=== PATIENT | male | born 1940 | race Caucasian/White ===

== ENCOUNTER 2023-03-17 16:27 | Emergency (ER) | payer MEDICARE, SELFPAY ==
[2023-03-17] VITALS (18 sets, daily range): BP systolic 117–216; BP diastolic 61–113; PULSE 61–79; RESP 13–22; TEMP 36.6; O2SAT 92–97; BMI 26.4
--- NOTE | 2023-03-17 16:43 | EX.ED.DYSGE1 ---
HPI History of Present Illness Chief Complaint: Confusion [facility] Medical History (Updated 03/17/23 @ 17:16 by Shauna Almeida) High cholesterol History of prostate cancer HTN (hypertension) Hx of stroke associated with blood clotting tendency Mitral valve problem Allergy/AdvReac Type Severity Reaction Status Date / Time Penicillins Allergy Severe NEEDS Verified 03/17/23 16:28 FOLLOW-UP Social History Smoking Status: Former smoker EXAM Physical Exam Const Vital Signs: 03/17/23 16:28 03/17/23 17:17 03/17/23 17:26 Temperature 97.8 F Temperature Source Temporal Pulse Rate 72 Respiratory Rate 16 Blood Pressure 198/101 H 216/107 H Blood Pressure Mean 133 143 Pulse Ox 94 Oxygen Delivery Method Room Air Room Air Oxygen Flow Rate (L/min) 03/17/23 17:27 03/17/23 17:27 03/17/23 17:29 Temperature Temperature Source Pulse Rate 68 61 Respiratory Rate 17 18 Blood Pressure 191/113 H 193/91 H 184/98 H Blood Pressure Mean 139 125 126 Pulse Ox 95 96 Oxygen Delivery Method Room Air Oxygen Flow Rate (L/min) 03/17/23 17:36 03/17/23 17:40 03/17/23 17:46 Temperature Temperature Source Pulse Rate 64 71 69 Respiratory Rate 21 H 21 H 19 H Blood Pressure 180/84 H 171/98 H 171/98 H Blood Pressure Mean 116 122 122 Pulse Ox 92 96 96 Oxygen Delivery Method Nasal Cannula Nasal Cannula Oxygen Flow Rate (L/min) 2 03/17/23 17:55 03/17/23 18:10 03/17/23 18:15 Temperature Temperature Source Pulse Rate 73 72 71 Respiratory Rate 19 H 16 22 H Blood Pressure 144/92 H 136/80 H 129/70 H Blood Pressure Mean 109 98 89 Pulse Ox 96 97 96 Oxygen Delivery Method Nasal Cannula Nasal Cannula Nasal Cannula Oxygen Flow Rate (L/min) 2 2 2 03/17/23 18:30 03/17/23 18:45 03/17/23 19:00 Temperature Temperature Source Pulse Rate 69 72 Respiratory Rate 15 16 16 Blood Pressure 128/68 H 129/93 H Blood Pressure Mean 88 105 Pulse Ox 96 97 Oxygen Delivery Method Nasal Cannula Nasal Cannula Oxygen Flow Rate (L/min) 2 2 03/17/23 19:00 03/17/23 19:15 03/17/23 19:30 Temperature Temperature Source Pulse Rate 71 73 79 Respiratory Rate 18 18 13 Blood Pressure 132/69 H 117/72 133/61 H Blood Pressure Mean 90 87 85 Pulse Ox 96 96 96 Oxygen Delivery Method Nasal Cannula Nasal Cannula Nasal Cannula Oxygen Flow Rate (L/min) 2 2 2 03/17/23 19:40 03/17/23 19:46 03/17/23 19:42 Temperature Temperature Source Pulse Rate 78 72 72 Respiratory Rate 16 16 13 Blood Pressure 133/61 H 134/72 H 133/61 H Blood Pressure Mean 85 92 85 Pulse Ox 96 95 96 Oxygen Delivery Method Nasal Cannula Oxygen Flow Rate (L/min) 2 MDM MDM MDM Narrative Medical decision making narrative: HISTORY OF PRESENT ILLNESS: 82-year-old male here with confusion. Per the patient's family he fell on Saturday states he is on Coumadin. States he is having word finding difficulties. REVIEW OF SYSTEMS: Pertinent positives: Head trauma, confusion, difficulty with speaking Pertinent negatives: Chest pain, shortness of breath, fever PHYSICAL EXAM: Nursing triage notes reviewed, Vital signs reviewed Primary Survey Airway: Intact Breathing: Bilateral breath sounds Circulation: Palpable bilateral femorals, Palpable bilateral radial, Palpable bilateral DP and Palpable bilateral PT Disability / Spine precautions GCS Score: Eye Openin Verbal Response: 4 Motor Response: 6 Secondary Survey Constitutional: Please see MDM Head: Atraumatic, Midface stable, NO jaw malocclusion, No Cephalohematoma, and No Lacerations noted Eye: Pupils equal round and reactive to light, Extraocular muscles intact and No periorbital ecchymosis or stepoff, no evidence of entrapment ENT: Oropharynx clear, no lacerations, no hemotympanum, no raccoon eyes or nick sign Cervical spine / Neck: No cervical spine bony tenderness, crepitance, or stepoff deformity Trachea midline Lungs: Clear to auscultation, No asymmetric rise and No crepitus, no flail chest Cardiac: Regular rate and rhythm and No murmurs Abdomen: Soft, Nontender and No rebound Pelvis: Pelvis stable to compression : No evidence of genital injury Back: No midline bony tenderness to thoracic/lumbar/sacral spines Neuro: Patient is alert, oriented to person but not to place or time, he moves all 4 extremities he has sensation all 4 extremities, he has expressive aphasia, no obvious dysarthria, no other cranial nerve deficits noted. NIH 0. ICH score 0. Extremities: NO gross Deformities, TTP over left wrist, bruising over left wrist. Psych: Normal affect Nursing triage notes reviewed, Vital signs reviewed MEDICAL DECISION MAKING: Chief Complaint: Confusion External records reviewed: No recent ED visits or hospitalizations noted Factors affecting care: On Coumadin Social determinants of health: Elderly History obtained from others: Son Consults: none MDM Narrative: Patient was initially hypertensive otherwise afebrile and nontoxic-appearing. There is no lateralizing findings however the patient was altered and had aphasia. His last known well was greater than 24 hours ago, he is on Coumadin he is not a TNK or thrombectomy candidate. I considered the following differential diagnosis: ICH, anemia, pneumonia, COVID, other infectious encephalopathy, metabolic encephalopathy I obtained a broad lab and imaging workup to further elucidate the etiology of the patient's complaints ALL IMAGES (IF OBTAINED) HAVE BEEN PERSONALLY REVIEWED AND INTERPRETED BY MYSELF. CT scan of the head was read reviewed myself shows evidence of a left-sided subdural hematoma. CT scan of cervical spine is negative for acute traumatic injury EKG with normal sinus rhythm, right axis deviation, right bundle branch block, no STEMI or ischemic changes I have personally reviewed the patient's chest x-ray. Chest x-ray is unremarkable for pulmonary edema, pneumothorax, pneumonia or focal cardiopulmonary abnormality. X-ray of the left wrist was read reviewed myself shows evidence of a proximal first metacarpal fracture Serum alcohol negative CBC with leukocytosis suggestive of systemic inflammation, no anemia. Noted mild thrombocytopenia INR 1.8 will give vitamin K Kcentra BMP without evidence of significant electrolyte abnormalities, no anion gap, no acute kidney injury. LFTs show no evidence of hepatobiliary pathology. High-sensitivity troponin is negative, no evidence of myocardial ischemia Synthesis of the patient's history, physical exam, labs images suggest evidence of a traumatic subdural hematoma complicated by Coumadin. Patient was treated with Kcentra and vitamin K to reverse activity of Coumadin. Head of bed was kept at 30 degrees. He was started initially on labetalol and then nicardipine drip to control his blood pressure with systolic goal of less than 140. He is transferred to a local trauma center for further trauma surgery and neurosurgery care. Case discussed with Dr. Mayen the patient in transfer to [facility]. The patient and/or family, caregivers express understanding. The patient and/or family, caregivers agrees with the plan. Shared decision making: I will have a discussion with the patient and or visitors regarding risk/benefits of further testing or admission. They will be made aware of of the risk/benefits inherent in this decision they will be given the opportunity to voice understanding. Total critical care time today provided was at least 60 minutes. This excludes separately billable procedures. Critical care time (if documented) is secondary to the patient having high probability of clinically significant/life threatening deterioration in the patient's condition which required my urgent intervention. Impression: 1. Acute traumatic subdural hematoma 2. Presence of anticoagulation 3. Thrombocytopenia 4. Hyperglycemia Dispo: Transfer to [facility] History & Record Review Discussion w/independent historian: EMS personnel and Family Lab Data Attestation: I reviewed the patient's lab results. Labs: Laboratory Results - last 24 hr 03/17/23 16:59 WBC 11.1 H RBC 5.03 Hgb 15.7 Hct 48.4 MCV 96.2 H MCH 31.2 MCHC 32.4 RDW Std Deviation 52.8 H RDW Coeff of Anderson 14.8 H Plt Count 143 L MPV 11.9 Immature Gran % (Auto) 0.500 Neut % (Auto) 84.7 H Lymph % (Auto) 6.9 L [place] % (Auto) 7.7 Eos % (Auto) 0.0 Baso % (Auto) 0.2 Absolute Neuts (auto) 9.4 H Absolute Lymphs (auto) 0.76 L Nucleated RBC % 0 PT 21.2 H INR 1.8 Sodium 137 Potassium 3.7 Chloride 101 Carbon Dioxide 29.0 Anion Gap 7 BUN 18 Creatinine 1.34 H Estim Creat Clear Calc 45.27 Est GFR (MDRD) Af Amer 66 Est GFR (MDRD) Non-Af 54 L BUN/Creatinine Ratio 13.4 Glucose 236 H Calcium 9.7 Total Bilirubin 0.90 AST 22 ALT 27 Alkaline Phosphatase 138 H Troponin I High Sens 42 Total Protein 7.3 Albumin 3.8 Globulin 3.5 Albumin/Globulin Ratio 1.1 Ethyl Alcohol < 3.0 Radiography Chest X-Ray - ED: Read by ED Physician Diagnostic Testing: Clinical Impression(s) from Imaging Studies Brain CT 03/17/23 16:51 IMPRESSION: Acute subdural hemorrhage along the left temporal and frontoparietal lobe extending into the left tentorium and involving the falx as described above. Minimal cortical effacement along the left temporal and frontoparietal lobe suggestive of mild edema. No midline shift. Electronically Signed: Noreen Mckay MD at 17:26 EST , ADDENDUM: 03/17/23 1740 IMPRESSION: Acute subdural hemorrhage along the left temporal and frontoparietal lobe extending into the left tentorium and involving the falx as described above. Minimal cortical effacement along the left temporal and frontoparietal lobe suggestive of mild edema. No midline shift. N.B. : The above Results were Read Back by Noreen Mckay MD to Brendon Hope DO, and understanding confirmed on 03/17/2023 17:33:14 (ET). Electronically Signed: Noreen Mckay MD at 17:26 EST Reading Location ID and State: [id number] / [employer] , Service support , Cervical Spine CT 03/17/23 16:51 IMPRESSION: Multilevel degenerative disease as described with no acute fracture or subluxation. Electronically Signed: Noreen Mckay MD at 17:30 EST Reading Location ID and State: [id number] / [employer] , Service support , Chest X-Ray 03/17/23 16:51 IMPRESSION: Mild bilateral multilobar multifocal atelectasis, otherwise no acute cardiopulmonary disease. Electronically Signed: Noreen Mckay MD at 17:21 EST Reading Location ID and State: [id number] / [employer] , Service support , Wrist X-Ray 03/17/23 16:51 IMPRESSION: Fracture involving the first metacarpal base. Underlying mild degenerative disease with osteopenia. Electronically Signed: Noreen Mckay MD at 17:22 EST , Discharge Plan Triage Chief Complaint: Confusion ED Provider: Brendon Hope Dx/Rx/DC Orders Primary Care Provider: CHARLI FELICIANO Referrals: [facility] Doctor,Out of [Non-Staff] - Disposition Disposition: Acute Care Hospital Discharge Location: [facility]
--- NOTE | 2023-03-17 16:51 | RAD_ITS ---
STUDY: X-RAY - LEFT WRIST REASON FOR EXAM: Male, 82 years old. pain TECHNIQUE: 3 view(s) of the wrist were obtained. COMPARISON: None. FINDINGS: There is demineralization of the radius and ulna. There is mild degenerative arthrosis of the radiocarpal articulation. Normal distal radioulnar articulation. Normal carpal bones. Mild degenerative arthrosis at the scaphotrapezium trapezoid joint. There is mild degenerative arthrosis of the carpometacarpal articulation of the thumb. Normal second through fifth carpometacarpal articulations. There is a transverse fracture involving the base of the first metacarpal bone. Soft tissue swelling at the wrist with vascular calcifications. RAD/Wrist min 3 Views IMPRESSION: Fracture involving the first metacarpal base. Underlying mild degenerative disease with osteopenia. Electronically Signed: Noreen Mckay MD at 17:22 [facility] ,
--- NOTE | 2023-03-17 16:51 | CT_ITS ---
STUDY: CT CERVICAL SPINE WITHOUT CONTRAST REASON FOR EXAM: Male, 82 years old. fall neck pain RADIATION DOSAGE (If Supplied By Facility): CTDIvol = ( 25.12 ) mGy, DLP = ( 575.62 ) mGycm TECHNIQUE: High resolution transaxial imaging was performed without contrast material. Sagittal and coronal images were reconstructed. Individualized dose optimization techniques were used for this CT. COMPARISON: None FINDINGS: Normal craniovertebral junction. There are degenerative changes of the anterior atlantoaxial articulation. Normal odontoid process. Normal cervical lordosis. Multilevel endplate spondylosis with narrowing of disc height consistent with disc degenerative disease, more significant at C5-C7 and anterior C1-C2 articulation. Otherwise normal vertebral bodies and posterior osseous elements. C2-3: Mild spondylosis. Mild bilateral apophyseal hypertrophy. No neural foraminal encroachment. No central canal stenosis. C3-4: Mild spondylosis. Mild disc osteophyte complex. Mild bilateral apophyseal hypertrophy. No neural foraminal encroachment. No central canal stenosis. C4-5: Mild to moderate spondylosis. Mild to moderate disc osteophyte complex. Mild bilateral apophyseal hypertrophy. Moderate neural foraminal encroachment. No central canal stenosis. C5-6: Moderate spondylosis with narrowing of disc height. Moderate to severe disc osteophyte complex. Moderate bilateral apophyseal hypertrophy. Moderate to severe neural foraminal encroachment. No central canal stenosis. C6-7: Mild to moderate spondylosis. Mild to moderate disc osteophyte complex. Mild bilateral apophyseal hypertrophy. Moderate neural foraminal encroachment. No central canal stenosis. C7-T1: Mild spondylosis. Mild bilateral apophyseal hypertrophy. No neural foraminal encroachment. No central canal stenosis. Normal visualized soft tissue structures. Question mild emphysematous changes in the lung apices. No pneumothorax. Calcified atherosclerotic disease throughout the bilateral carotid arteries. CT/Spine Cervical without Contras IMPRESSION: Multilevel degenerative disease as described with no acute fracture or subluxation. Electronically Signed: Noreen Mckay MD at 17:30 EST ,
--- NOTE | 2023-03-17 16:51 | CT_ITS ---
We are attempting to reach an attending provider to discuss findings. An addendum with communication details will be sent when the communication is complete. STUDY: CT BRAIN WITHOUT CONTRAST REASON FOR EXAM: Male, 82 years old. AMS, confusion, fall RADIATION DOSAGE (If Supplied By Facility): CTDIvol = ( 44.99 ) mGy, DLP = ( 880.47 ) mGycm TECHNIQUE: Transaxial CT imaging of the brain was performed without administration of intravenous contrast material. Individualized dose optimization techniques were used for this CT. COMPARISON: No relevant priors. FINDINGS: Normal soft tissue structures. Normal calvarium. There is mild cerebral atrophy with widening of the extra-axial spaces and ventricular dilatation. There are areas of decreased attenuation within the white matter tracts of the supratentorial brain, consistent with microvascular disease changes. Normal basal ganglia and thalami. Normal brainstem. Normal cerebellum. There is left subdural acute hemorrhage extending from the left temporal lobe and left tentorium into the left frontoparietal region at mid skull level, measuring approximately 8.7 mm in maximum thickness at the level of the left temporal lobe. There is small area of acute hemorrhage involving the left tentorium and falx region, measuring largest dimension along the posterior falx (5.2 mm. There is minimal sulcal effacement along the left temporoparietal and left frontal lobe. Normal visualized paranasal sinuses. No midline shift. CT/Brain/Head without Contrast IMPRESSION: Acute subdural hemorrhage along the left temporal and frontoparietal lobe extending into the left tentorium and involving the falx as described above. Minimal cortical effacement along the left temporal and frontoparietal lobe suggestive of mild edema. No midline shift. Electronically Signed: Noreen Mckay MD at 17:26 EST ,
--- NOTE | 2023-03-17 16:51 | RAD_ITS ---
STUDY: X-RAY CHEST REASON FOR EXAM: Male, 82 years old. SOB TECHNIQUE: Single AP portable view of the chest. COMPARISON: None. FINDINGS: The lungs are normally expanded with bilateral mid lung and left basilar atelectasis, otherwise clear. There is no demonstrated pleural abnormality. Normal size heart. Midline sternotomy wires noted. Normal mediastinum and cirilo. Normal visualized pulmonary arteries. There is atherosclerotic calcification of the aortic arch with tortuosity. There are diffuse degenerative changes of the visualized thoracic spine. There is degenerative osteoarthritis of the bilateral shoulders. There is no demonstrated abnormality of the visualized soft tissue structures of the upper abdomen. RAD/Chest 1 View (Portable) IMPRESSION: Mild bilateral multilobar multifocal atelectasis, otherwise no acute cardiopulmonary disease. Electronically Signed: Noreen Mckay MD at 17:21 EST ,
--- NOTE | 2023-03-17 16:52 | EKG12_ITS ---
Test Reason : HIGH BP Blood Pressure : / mmHG Vent. Rate : 077 BPM Atrial Rate : 077 BPM P-R Int : 172 ms QRS Dur : 140 ms QT Int : 420 ms P-R-T Axes : 069 124 -04 degrees QTc Int : 475 ms Normal sinus rhythm Right bundle branch block Left posterior fascicular block Bifascicular block Cannot rule out Inferior infarct , age undetermined Abnormal ECG Confirmed by TOMI SHETTY, GERARD ([id number]), online editor TELMA NARVAEZ ([id number]) on 03/26/2023 9:15:53 AM Referred By: Confirmed By:GERARD KRISHNA MD
[2023-03-17] MEDS: Labetalol (Prefilled) 20 MG/4 ML IV (17:23)
[2023-03-17] MEDS: Nicardipine HCl-0.9% Sod Chlor 20 MG/200 ML IV.SOLN 50 MG CONT INF (17:27)
[2023-03-17 17:31] LABS: Absolute Lymphocyte Count 0.76 X10^3/uL (0.83-4.51); Absolute Neutrophil Count 9.4 X10^3/uL (2.0-7.7); Basophil# 0.02 X10^3/uL; Basophil% 0.2 % (0-1); Hematocrit 48.4 % (40-54); Hemoglobin 15.7 g/dL (13.0-16.5); Lymphocyte # 0.76 X10^3/ul (0.83-4.51); Lymphocyte % 6.9 % (19-41); Mean Corp Hgb Conc 32.4 g/dL (32-36); Mean Corpuscular Hgb 31.2 pg (27.0-32.0); Mean Corpuscular Volume 96.2 fL (80-94); Mean Platelet Vol. 11.9 fl (6.2-12.0); Monocyte# 0.85 X10^3/uL; Monocyte% 7.7 % (0-10); NRBC Flagged by Analyzer 0 % (0-5); Neutrophil # 9.39 X10^3/uL (2.7-7.7); Neutrophil % 84.7 % (47-70); Platelet Count 143 K/mm3 (150-450); RBC Distribution Width CV 14.8 % (11.6-14.6); RBC Distribution Width SD 52.8 fl (35.1-43.9); Red Blood Count 5.03 M/mm3 (4.6-6.2); White Blood Count 11.1 K/mm3 (4.4-11.0)
[2023-03-17 17:35] LABS: International Normalized Ratio 1.8; Prothrombin Time (Protime)PT. 21.2 SECONDS (11.7-14.9)
[2023-03-17 17:37] LABS: Alcohol, Blood (Medical)-Serum < 3.0 mg/dL
[2023-03-17 17:42] LABS: ALB/GLOB Ratio 1.1 RATIO (0.9-2.4); AST(SGOT) 22 U/L (15-37); Alanine Aminotransfer ALT/SGPT 27 U/L (16-61); Albumin, Serum 3.8 g/dL (3.2-5.0); Alkaline Phosphatase 138 U/L (45-117); Anion Gap 7 (5-15); BUN 18 mg/dL (7-18); BUN/Creat Ratio 13.4 RATIO (10-20); Calcium,Total 9.7 mg/dL (8.5-10.1); Chloride 101 mmol/L (98-107); Creatinine, Serum 1.34 mg/dL (0.70-1.30); EST Glomerular Filtration Rate 54 mL/min (>60); Est Glom Filt Rate - Afr Amer 66 mL/min (>60); Estimated Creatinine Clearance 45.27 ml/min; Globulin 3.5 g/dL (2.2-4.2); Glucose 236 mg/dL (74-106); Potassium 3.7 mmol/L (3.5-5.1); Protein, Total 7.3 g/dL (6.4-8.2); Sodium Level 137 mmol/L (136-145); Troponin-I HS 42 pg/mL (3.0-78.0)
[2023-03-17] MEDS: Phytonadione (Vit K) 10 MG in 0.9% Normal Saline (50mL Bag) 50 ML 150 MG IV (18:24)
--- NOTE | 2023-03-17 18:44 | ED.RN ---
spoke with priyanka labor service representative at [facility] regarding the urgency of the transport for this pt. he will call back.
--- NOTE | 2023-03-17 18:55 | ED.RN ---
priyanka from [facility] called back. transport in route should be here around [id number].
--- NOTE | 2023-03-17 19:03 | ED.RN ---
ATTEMPTED TO CALL REPORT TO [facility] BUT THEY ARE UNABLE TO TAKE REPORT AT THIS TIME DUE TO IN THE MIDDLE OF REPORT. WILL CALL BACK
[2023-03-17] MEDS: Nicardipine HCl-0.9% Sod Chlor 20 MG/200 ML IV.SOLN 100 MG CONT INF (19:46)
== END 2023-03-17 20:53 | disposition short-term general hospital (02) ==
PROVIDERS: Emergency Provider Emergency Medicine; Visit Provider Emergency Medicine
DX: S06.5X0A Traumatic subdural hemorrhage without loss of consciousness, initial encounter (principal); D69.6 Thrombocytopenia, unspecified; R73.9 Hyperglycemia, unspecified; Z87.891 Personal history of nicotine dependence; I45.10 Unspecified right bundle-branch block; R47.01 Aphasia; R41.0 Disorientation, unspecified; I10 Essential (primary) hypertension; E78.00 Pure hypercholesterolemia, unspecified; S62.202A Unspecified fracture of first metacarpal bone, left hand, initial encounter for closed fracture; Z79.01 Long term (current) use of anticoagulants; W19.XXXA Unspecified fall, initial encounter; M50.30 Other cervical disc degeneration, unspecified cervical region
CPT/HCPCS: 70450; 71045; 72125; 73110; 80053; 82077; 84484; 85025; 85610; 87428; 93005; 96365; 96368; 96375; 99285; J7030; J7168; A4216; J3490

== ENCOUNTER → 2023-04-11 | Outpatient (REF) | payer MEDICARE, SELFPAY ==
[2023-04-11 08:37] LABS: Absolute Lymphocyte Count 1.35 X10^3/uL (0.83-4.51); Absolute Neutrophil Count 4.4 X10^3/uL (2.0-7.7); Basophil# 0.01 X10^3/uL; Basophil% 0.2 % (0-1); Eosinophil# 0.13 X10^3/uL; Hematocrit 41.2 % (40-54); Hemoglobin 13.6 g/dL (13.0-16.5); Lymphocyte # 1.35 X10^3/ul (0.83-4.51); Lymphocyte % 20.9 % (19-41); Mean Corpuscular Hgb 31.5 pg (27.0-32.0); Mean Corpuscular Volume 95.4 fL (80-94); Mean Platelet Vol. 11.9 fl (6.2-12.0); Monocyte# 0.54 X10^3/uL; Monocyte% 8.4 % (0-10); NRBC Flagged by Analyzer 0 % (0-5); POSITIVE COUNT YES; Platelet Count 84 K/mm3 (150-450); RBC Distribution Width CV 14.3 % (11.6-14.6); RBC Distribution Width SD 50.3 fl (35.1-43.9); Red Blood Count 4.32 M/mm3 (4.6-6.2); White Blood Count 6.5 K/mm3 (4.4-11.0)
[2023-04-11 08:56] LABS: Anion Gap 4 (5-15); BUN 13 mg/dL (7-18); Calcium,Total 8.8 mg/dL (8.5-10.1); Chloride 104 mmol/L (98-107); Creatinine, Serum 1.18 mg/dL (0.70-1.30); EST Glomerular Filtration Rate 63 mL/min (>60); Est Glom Filt Rate - Afr Amer 76 mL/min (>60); Glucose 122 mg/dL (74-106); Potassium 3.8 mmol/L (3.5-5.1); Sodium Level 137 mmol/L (136-145)
[2023-04-11 09:04] LABS: Differential Indicated SCAN CRITERIA MET
[2023-04-11 09:06] LABS: Differential Comment SCANNED; Platelet Estimate MOD DEC (ADEQ)
== END ==
LOC: OLS.WHLTSB 05:00
PROVIDERS: PCP Internal Medicine; Visit Provider Internal Medicine
DX: E11.9 Type 2 diabetes mellitus without complications (principal)
CPT/HCPCS: 36415; 80048; 85025

== ENCOUNTER → 2023-04-25 | Outpatient (REF) | payer MEDICARE, SELFPAY ==
[2023-04-25 09:31] LABS: Absolute Lymphocyte Count 1.02 X10^3/uL (0.83-4.51); Absolute Neutrophil Count 5.5 X10^3/uL (2.0-7.7); Basophil# 0.03 X10^3/uL; Basophil% 0.4 % (0-1); Eosinophil# 0.15 X10^3/uL; Eosinophils% 2.1 % (0-5); Hematocrit 38.8 % (40-54); Hemoglobin 12.9 g/dL (13.0-16.5); Lymphocyte # 1.02 X10^3/ul (0.83-4.51); Lymphocyte % 14.1 % (19-41); Mean Corp Hgb Conc 33.2 g/dL (32-36); Mean Corpuscular Hgb 31.9 pg (27.0-32.0); Mean Corpuscular Volume 95.8 fL (80-94); Mean Platelet Vol. 11.1 fl (6.2-12.0); Monocyte# 0.51 X10^3/uL; Monocyte% 7.1 % (0-10); NRBC Flagged by Analyzer 0 % (0-5); Neutrophil # 5.47 X10^3/uL (2.7-7.7); Neutrophil % 75.7 % (47-70); Platelet Count 136 K/mm3 (150-450); RBC Distribution Width CV 14.7 % (11.6-14.6); RBC Distribution Width SD 51.3 fl (35.1-43.9); Red Blood Count 4.05 M/mm3 (4.6-6.2); White Blood Count 7.2 K/mm3 (4.4-11.0)
[2023-04-25 09:55] LABS: Anion Gap 4 (5-15); BUN 12 mg/dL (7-18); BUN/Creat Ratio 11.4 RATIO (10-20); Calcium,Total 9.1 mg/dL (8.5-10.1); Chloride 104 mmol/L (98-107); Creatinine, Serum 1.05 mg/dL (0.70-1.30); EST Glomerular Filtration Rate 72 mL/min (>60); Est Glom Filt Rate - Afr Amer 87 mL/min (>60); Glucose 126 mg/dL (74-106); Potassium 4.2 mmol/L (3.5-5.1); Sodium Level 137 mmol/L (136-145)
== END ==
LOC: OLS.WHLTSB 05:00
PROVIDERS: PCP Internal Medicine; Visit Provider Internal Medicine
DX: E11.9 Type 2 diabetes mellitus without complications (principal)
CPT/HCPCS: 36415; 80048; 85025

== ENCOUNTER 2023-05-09 15:30 | Emergency (ER) | payer MEDICARE, SELFPAY ==
[2023-05-09 15:31] VITALS: BP 202/86; PULSE 58; RESP 16; TEMP 35.6; O2SAT 94; BMI 24.6
--- NOTE | 2023-05-09 16:04 | ED.VIS.FALL ---
HPI <Sonia Chao RN - Last Filed: 05/09/23 18:06> HPI - Fall History of Present Illness Chief Complaint: Fall Informant: patient and EMS Occured/Mechanism Occurred: Today Mechanism/Context: Yes same level fall Narrative: Fall from standing while walking out of the bathroom and not using walker. Pain/Injury Location: Right upper chest, right thoracic region on back, thoracic and lumbar spina Quality of Pain: Aching Current Severity: Mild Maximum Severity: Moderate Worsened by: Movement and palpation Relieved by: Rest Associated Symptoms Associated Symptoms: Negative for Parasthesias, Weakness, Loss of function or Loss of consciousness Length of loss of consciousness: Patient denies LOC Narrative Narrative: Patient referred to ED from [facility] post fall at approximately noon today while walking out of the bathroom. Per report, patient was not using his walker and was found on the floor, unable to get up. Patient denies LOC. Patient with subdural hematoma in 02/2023. Patient Coumadin DC'd at that time. No current anticoagulants. Patient reports right upper chest pain with movement and palpation. Also reports right thoracic back pain and thoracic and lumbar spinal pain. Tetanus Immunization: Unknown Recent Illness/Hospitalization: Yes PFSH <Sonia Chao RN - Last Filed: 05/09/23 18:06> [facility] Medical History Bladder cancer BPH (benign prostatic hyperplasia) CAD (coronary artery disease) Cognitive impairment COPD (chronic obstructive pulmonary disease) COVID-19 (~02/2020) CVA (cerebral vascular accident) Diabetes mellitus Diastolic heart failure with preserved ejection fraction Dysphagia Fracture of thumb, left, closed GERD (gastroesophageal reflux disease) High cholesterol History of fall History of prostate cancer History of TIA (transient ischemic attack) and stroke HTN (hypertension) Hx of stroke associated with blood clotting tendency Hyperlipidemia Major depression Migraine headache Mitral valve problem Neuropathy Nonrheumatic aortic (valve) stenosis SANJU (obstructive sleep apnea) Osteoarthritis Paroxysmal atrial fibrillation Pulmonary embolism Pulmonary nodule SDH (subdural hematoma) Thrombophilia Home Medications atorvastatin 40 mg tablet 40 mg PO QHS 04/22/23 [History Last Taken Unknown] cholecalciferol (vitamin D3) 10 mcg (400 unit) chewable tablet 10 mcg PO DAILY 04/22/23 [History Last Taken Unknown] fexofenadine 180 mg tablet (Ainsley Hivaleisha) 180 mg PO DAILY 04/22/23 [History Last Taken Unknown] finasteride 5 mg tablet 5 mg PO DAILY 04/22/23 [History Last Taken Unknown] fluoxetine 20 mg capsule (Prozac) 20 mg PO DAILY 04/22/23 [History Last Taken Unknown] furosemide 20 mg tablet 20 mg PO DAILY 04/22/23 [History Last Taken Unknown] losartan 25 mg tablet 25 mg PO DAILY 04/22/23 [History Last Taken Unknown] magnesium oxide 400 mg (241.3 mg magnesium) tablet 400 mg PO DAILY 04/22/23 [History Last Taken Unknown] montelukast 10 mg tablet (Singulair) 10 mg PO QHS 04/22/23 [History Last Taken Unknown] oxybutynin chloride 5 mg tablet,extended release 24 hr 5 mg PO DAILY 04/22/23 [History Last Taken Unknown] sertraline 50 mg tablet 50 mg PO DAILY 04/22/23 [History Last Taken Unknown] metformin 1,000 mg tablet 1,000 mg PO DAILY 04/24/23 [History Last Taken Unknown] potassium chloride 10 mEq capsule,extended release 20 meq PO DAILY 04/24/23 [History Last Taken Unknown] metoprolol tartrate 25 mg tablet 25 mg PO BID #60 tabs 05/02/23 [Rx Last Taken Unknown] Allergy/AdvReac Type Severity Reaction Status Date / Time Penicillins Allergy Severe NEEDS Verified 04/24/23 09:48 FOLLOW-UP Family History Mother Heart disease Hypertension Breast cancer Father Hypertension Diabetes Surgical History H/O aortic valve replacement (~09/08/10) History of carpal tunnel release of both wrists History of loop recorder History of thoracotomy History of transurethral resection of bladder tumor (TURBT) Hx laparoscopic cholecystectomy Hx of bilateral cataract extraction Hx of nasal septoplasty Hx of tonsillectomy Social History Smoking Status: Former smoker Smokeless tobacco user: chewing tobacco alcohol intake: never substance use type: does not use caffeine: Yes Type: coffee ROS <Sonia Chao RN - Last Filed: 05/09/23 18:06> ROS ED Constitutional Constitutional ED: Denies chills or fever(s) Eyes Eyes: Denies blurry vision, change in vision or diplopia Cardiovascular Cardiovascular: Denies chest pain or palpitations Respiratory/Chest Respiratory/Chest: Denies cough or dyspnea Gastrointestinal Gastrointestinal: Denies abdominal pain, constipation, diarrhea, nausea or vomiting Genitourinary Genitourinary ED: Denies dysuria, hematuria or urinary frequency Musculoskeletal Musculoskeletal: Reports back pain; Denies neck pain Integumentary Denies rash Neurologic Neurologic: Denies headache(s) or paresthesias EXAM <Sonia Chao RN - Last Filed: 05/09/23 18:06> Physical Exam Const Vital Signs: 05/09/23 15:31 05/09/23 15:52 Temperature 96.0 F L Temperature Source Temporal Pulse Rate 58 L Respiratory Rate 16 Respiratory Effort Normal Respiratory Depth Normal Respiratory Pattern Normal Blood Pressure 202/86 H Blood Pressure Mean 124 Pulse Ox 94 Oxygen Delivery Method Room Air Positive well nourished and well developed General Appearance ED: well developed and NAD HEENT Reports normocephalic atraumatic; Negative for tenderness Eyes PERRL and EOMs intact bilaterally Neck full ROM and supple Neck Narrative: Denies cervical spine tenderness. General: Negative for tenderness Chest Wall inspection of chest normal Chest Narrative: Pain to right upper chest with movement and palpation Resp normal respiratory effort and clear to auscultation bilaterally Effort and Inspection: pain with movement Cardio regular rate, S1 normal heart sound and S2 normal heart sound GI non-tender and non-distended Inspection: Negative for abdominal distention Auscultation: normoactive bowel sounds Palpation: soft Back/Spine Cervical Spine: Negative for cervical spine tenderness Thoracic Spine / Upper Back: thoracic spinal tenderness other (Generalized tenderness with palpation) Lumbar Spine / Lower Back: lumbar spinal tenderness Extremity Extremity Narrative: Patient moves all extremities. Right shoulder pain with movement of right arm. Sensation intact. Neuro Neuro Narrative: Alert and oriented to person. Patient with history of dementia currently living in dementia unit at [facility]. Spreckels Coma Scale: document GCS findings Spontaneous Obeys Commands Confused 14 Sensorium / Orientation: alert and oriented to person; Negative for oriented to place or oriented to time Motor Exam: strength 5/5 throughout Psych mental status grossly normal Skin Lesions: no lesions Rashes: no rashes Trauma: Negative for abrasion <Dr. Jose Daniel Rivera MD - Last Filed: 05/09/23 18:08> Physical Exam Const Vital Signs: 05/09/23 15:31 05/09/23 15:52 Temperature 96.0 F L Temperature Source Temporal Pulse Rate 58 L Respiratory Rate 16 Respiratory Effort Normal Respiratory Depth Normal Respiratory Pattern Normal Blood Pressure 202/86 H Blood Pressure Mean 124 Pulse Ox 94 Oxygen Delivery Method Room Air Neuro Niki Coma Scale: document GCS findings 14 MDM <Sonia Chao RN - Last Filed: 05/09/23 18:06> MDM MDM Narrative Medical decision making narrative: Will obtain chest x-ray to evaluate for rib fractures. Will obtain thoracic and lumbar spine x-rays to evaluate for fractures. History & Record Review Discussion w/independent historian: EMS personnel Additional record(s) reviewed:: Prior inpatient record Radiography Chest X-Ray - ED: 2 View and Read by ED Physician X-Ray: LS SPine, T-Spine and - (Chest x-ray without clavicle or rib fractures. Suspect old compression fracture of T3. Otherwise thoracic and lumbar spine without obvious fractures.) Diagnostic Testing: Clinical Impression(s) from Imaging Studies Chest X-Ray 05/09/23 16:15 IMPRESSION: Mild interstitial prominence. Electronically Signed: Sunday Miles DO at 17:25 EST , Lumbar Spine X-Ray 05/09/23 16:15 IMPRESSION: Degenerative changes without acute fracture of the lumbar spine. Electronically Signed: Sunday Miles DO at 17:27 EST , Thoracic Spine X-Ray 05/09/23 16:15 IMPRESSION: Degenerative vertebral changes all the visualized thoracic column. Electronically Signed: Sunday Miles DO at 17:37 EST , Management Discussion w/another healthcare provider: Other (Dr. Rivera, ED provider) Treatment and Re-Evaluation Narrative: Upon reevaluation, patient awake and alert. No complaints. Chest x-ray without any clavicle or rib fractures. Thoracic spine x-ray with possible old compression fracture of T3. Lumbar spine negative for acute fracture. [facility]. May use Tylenol for pain as needed. Instructed to use walker as previously prescribed. Discussed plan with patient. Patient agreeable. Patient to follow-up with primary care provider as needed. <Dr. Jose Daniel Rivera MD - Last Filed: 05/09/23 18:08> [facility] Narrative Medical decision making narrative: Will obtain chest x-ray to evaluate for rib fractures. Will obtain thoracic and lumbar spine x-rays to evaluate for fractures. I have personally performed a face to face assessment of the patient and have reviewed the RADHA Note. I performed a substantive portion of the visit including all aspects of the following. My cardoza findings include: History is [82-year-old male at [facility] with a history of dementia. Reportedly had a fall today. Complaining of back and rib pain. No LOC. Reportedly on no blood thinners. I spoke to the jail nurse and they had no other concerns. He has not recently been ill.] Exam is [82-year-old male vital signs stable afebrile. HEENT exam pupils round reactive light. No facial trauma. No trauma to his scalp. No hematoma or lacerations. Neck nontender. Lungs clear. Heart regular rhythm rate about 60. Chest wall is mild tenderness to his right sided ribs. No crepitance or subcu air. No bruising. No bony deformity. Abdomen is soft and nontender. No peritoneal signs. No bruising or trauma. Pelvic girdle intact. Moving all 4 extremities. Nontender no deformity. Back he has diffuse tenderness over his back right lateral ribs and thoracic and lumbar spine. There is no specific bruising. Neurologically is awake and alert. He does have dementia he is confused. Reportedly at his baseline. He is moving all 4 extremities.] Medical Decision Making [x-rays of the thoracic spine showed chronic changes questionable old T3 compression fracture but not called by the radiologist. Lumbar spine x-ray shows chronic changes. Chest x-ray shows no obvious rib fractures. Nondisplaced fracture may not be evident.] Other additions or changes: [None] Radiography Diagnostic Testing: Clinical Impression(s) from Imaging Studies Chest X-Ray 05/09/23 16:15 IMPRESSION: Mild interstitial prominence. Electronically Signed: Sunday Miles DO at 17:25 EST , Lumbar Spine X-Ray 05/09/23 16:15 IMPRESSION: Degenerative changes without acute fracture of the lumbar spine. Electronically Signed: Sunday Miles DO at 17:27 EST , Thoracic Spine X-Ray 05/09/23 16:15 IMPRESSION: Degenerative vertebral changes all the visualized thoracic column. Electronically Signed: Sunday Miles DO at 17:37 EST , Chest x-ray, 2 views interpreted by myself shows no obvious rib fractures. Normal lungs and cardiac silhouette. Chronic changes. Also inter by the radiologist agrees. Lumbar spine x-ray 2 views shows chronic changes no acute fracture. Interpreted both by myself and the radiologist Thoracic spine x-ray 2 views questionable T3 compression fracture may be old may just be chronic degenerative disease. Otherwise no fractures. Interpreted both by myself and the radiologist. Discharge Plan Triage Chief Complaint: Fall ED Provider: Jose Daniel Rivera Dx/Rx/DC Orders Clinical Impression: Contusion of rib on right side, Dementia, Fall, Back contusion, History of dementia Instructions: Bone Contusion, ED Back Contusion, ED Bruise, Rib, ED Fall Prevention Prescriptions: No Action fexofenadine [Ainsley Hives] 180 mg tablet 180 mg PO DAILY atorvastatin 40 mg tablet 40 mg PO QHS losartan 25 mg tablet 25 mg PO DAILY oxybutynin chloride 5 mg tablet extended release 24hr 5 mg PO DAILY furosemide 20 mg tablet 20 mg PO DAILY magnesium oxide 400 mg (241.3 mg magnesium) tablet 400 mg PO DAILY finasteride 5 mg tablet 5 mg PO DAILY fluoxetine [Prozac] 20 mg capsule 20 mg PO DAILY montelukast [Singulair] 10 mg tablet 10 mg PO QHS sertraline 50 mg tablet 50 mg PO DAILY cholecalciferol (vitamin D3) 10 mcg (400 unit) tablet,chewable 10 mcg PO DAILY metformin 1,000 mg tablet 1,000 mg PO DAILY potassium chloride 10 mEq capsule, extended release 20 meq PO DAILY metoprolol tartrate 25 mg tablet 25 mg PO BID Qty: 60 11RF Primary Care Provider: Danielle Hernandez Referrals: Danielle Hernandez MD [Primary Care Provider] - 3-5 Days if not improving NOT,DEFINED [Non-Staff] - Activity Restrictions/Additional Instructions: X-rays today were negative. No obvious fractures. Tylenol for any pain. Follow-up with either his primary care physician or your medical asst if not improving in the next 3 to 5 days. Disposition Disposition: Home, Self Care Discharge Location: [facility]
--- NOTE | 2023-05-09 16:15 | RAD_ITS ---
STUDY: X-RAY - LUMBAR SPINE REASON FOR EXAM: Male, 82 years old. Pain TECHNIQUE: 2 view(s) of the lumbar spine were obtained. COMPARISON: None FINDINGS: Normal lumbar lordosis. There is no substantial scoliosis. There is a normal alignment of the vertebrae. Degenerative changes of the vertebral bodies with spurring at the endplates. Normal disc space heights. The soft tissue structures are unremarkable. Diffusely calcified aorta. Surgical clips in the right lower quadrant. Possible left renal calculi. RAD/Lumbar Spine 2 or 3 Views IMPRESSION: Degenerative changes without acute fracture of the lumbar spine. Electronically Signed: Sunday Miles DO at 17:27 EST ,
--- NOTE | 2023-05-09 16:15 | RAD_ITS ---
INDICATION: Pain EXAMINATION/TECHNIQUE: X-RAY - XR Spine Thoracic 3Views COMPARISON: FINDINGS: VERTEBRAE: Preserved vertebral body height. Degenerative spurring at the endplates. No fracture. No spondylolisthesis. Preservation of the normal thoracic kyphosis. No significant facet arthropathy. DISCS: Disc spaces are maintained. INCLUDED CHEST/ABDOMEN: No acute abnormalities. RAD/Thoracic Spine 2 Views IMPRESSION: Degenerative vertebral changes all the visualized thoracic column. Electronically Signed: Sunday Miles DO at 17:37 EST ,
--- NOTE | 2023-05-09 16:15 | RAD_ITS ---
INDICATION: Pain EXAMINATION/TECHNIQUE: X-RAY - XR Chest 2 Views COMPARISON: March 17, 2023 FINDINGS: LINES/DEVICES: Stable sternotomy wires. LUNGS: No consolidation, edema or effusion. Mild interstitial prominence bilaterally. No pneumothorax. MEDIASTINUM AND CARDIOVASCULAR STRUCTURES: Cardiac silhouette not enlarged. Central airways and mediastinal contour are unremarkable. BONES AND SOFT TISSUES: Degenerative vertebral changes. RAD/Chest PA and Lateral IMPRESSION: Mild interstitial prominence. Electronically Signed: Sunday Miles DO at 17:25 EST ,
--- NOTE | 2023-05-09 18:09 | ED.RN ---
JENY CALLED, ETA [phone]
--- NOTE | 2023-05-09 18:20 | ED.RN ---
ATTEMPT TO CALL SKILLED NURSING. NO ANSWER
[2023-05-09 20:21] VITALS: BP 203/88; PULSE 55; RESP 16; TEMP 36.8; O2SAT 96
== END 2023-05-09 20:30 | disposition home or self-care (01) ==
PROVIDERS: Emergency Provider Emergency Medicine; PCP Internal Medicine; Visit Provider Emergency Medicine
DX: S20.211A Contusion of right front wall of thorax, initial encounter (principal); F03.90 Unspecified dementia, unspecified severity, without behavioral disturbance, psychotic disturbance, mood disturbance, and anxiety; J44.9 Chronic obstructive pulmonary disease, unspecified; I50.32 Chronic diastolic (congestive) heart failure; I11.0 Hypertensive heart disease with heart failure; E11.40 Type 2 diabetes mellitus with diabetic neuropathy, unspecified; W18.30XA Fall on same level, unspecified, initial encounter; Z87.891 Personal history of nicotine dependence; S20.229A Contusion of unspecified back wall of thorax, initial encounter; I25.10 Atherosclerotic heart disease of native coronary artery without angina pectoris; K21.9 Gastro-esophageal reflux disease without esophagitis; E78.00 Pure hypercholesterolemia, unspecified; E78.5 Hyperlipidemia, unspecified; Z79.899 Other long term (current) drug therapy; Y92.121 Bathroom in nursing home as the place of occurrence of the external cause
CPT/HCPCS: 71046; 72070; 72100; 99282

== ENCOUNTER → 2023-05-15 | Outpatient (REF) | payer MEDICARE, SELFPAY ==
[2023-05-15 11:47] LABS: Color, Urine Yellow (Yellow); Glucose, Dipstick Normal (Normal); Ketone-Dipstick Negative (Negative); Leukocyte Esterase-Dipstick 500 /ul (Negative); Nitrite-Dipstick Positive (Negative); Occult Blood-Urine 10 /ul (Negative); Protein-Dipstick 15 mg/dl (Negative); Urine Bilirubin Dipstick Negative (Negative); Urine Clarity Sl. Cloudy (Clear); Urine Urobilinogen 1 mg/dl (Normal)
== END ==
LOC: OLS.WHLTSB 09:35
PROVIDERS: PCP Internal Medicine; Visit Provider Nurse Practitioner Adult Health
DX: R33.9 Retention of urine, unspecified (principal)
CPT/HCPCS: 81002; 87086; 87088

== ENCOUNTER → 2023-05-17 | Outpatient (REF) | payer MEDICARE, SELFPAY ==
[2023-05-17 09:05] LABS: Absolute Lymphocyte Count 0.82 X10^3/uL (0.83-4.51); Absolute Neutrophil Count 8.5 X10^3/uL (2.0-7.7); Basophil# 0.03 X10^3/uL; Basophil% 0.3 % (0-1); Eosinophil# 0.11 X10^3/uL; Eosinophils% 1.1 % (0-5); Hemoglobin 13.8 g/dL (13.0-16.5); Lymphocyte # 0.82 X10^3/ul (0.83-4.51); Mean Corp Hgb Conc 32.9 g/dL (32-36); Mean Corpuscular Hgb 31.7 pg (27.0-32.0); Mean Corpuscular Volume 96.6 fL (80-94); Mean Platelet Vol. 11.8 fl (6.2-12.0); Monocyte# 0.72 X10^3/uL; NRBC Flagged by Analyzer 0 % (0-5); Neutrophil # 8.53 X10^3/uL (2.7-7.7); Platelet Count 145 K/mm3 (150-450); RBC Distribution Width CV 15.7 % (11.6-14.6); RBC Distribution Width SD 55.3 fl (35.1-43.9); Red Blood Count 4.35 M/mm3 (4.6-6.2); White Blood Count 10.3 K/mm3 (4.4-11.0)
[2023-05-17 09:26] LABS: Anion Gap 6 (5-15); BUN 16 mg/dL (7-18); BUN/Creat Ratio 16.6 RATIO (10-20); Calcium,Total 9.5 mg/dL (8.5-10.1); Chloride 103 mmol/L (98-107); Creatinine, Serum 0.96 mg/dL (0.70-1.30); EST Glomerular Filtration Rate 79 mL/min (>60); Est Glom Filt Rate - Afr Amer 96 mL/min (>60); Glucose 149 mg/dL (74-106); Potassium 3.6 mmol/L (3.5-5.1); Sodium Level 139 mmol/L (136-145)
== END ==
LOC: OLS.WHLTSB 05:00
PROVIDERS: PCP Internal Medicine; Visit Provider Nurse Practitioner Adult Health
DX: J18.0 Bronchopneumonia, unspecified organism (principal); E11.9 Type 2 diabetes mellitus without complications; F01.50 Vascular dementia, unspecified severity, without behavioral disturbance, psychotic disturbance, mood disturbance, and anxiety
CPT/HCPCS: 36415; 80048; 85025; 87449

== ENCOUNTER → 2023-05-24 | Outpatient (REF) | payer MEDICARE, SELFPAY ==
[2023-05-24 08:19] LABS: Absolute Lymphocyte Count 0.91 X10^3/uL (0.83-4.51); Absolute Neutrophil Count 7.8 X10^3/uL (2.0-7.7); Basophil# 0.03 X10^3/uL; Basophil% 0.3 % (0-1); Eosinophil# 0.12 X10^3/uL; Eosinophils% 1.2 % (0-5); Hematocrit 43.3 % (40-54); Hemoglobin 14.4 g/dL (13.0-16.5); Lymphocyte # 0.91 X10^3/ul (0.83-4.51); Lymphocyte % 9.5 % (19-41); Mean Corp Hgb Conc 33.3 g/dL (32-36); Mean Corpuscular Hgb 31.9 pg (27.0-32.0); Mean Platelet Vol. 11.3 fl (6.2-12.0); Monocyte# 0.68 X10^3/uL; Monocyte% 7.1 % (0-10); NRBC Flagged by Analyzer 0 % (0-5); Neutrophil # 7.82 X10^3/uL (2.7-7.7); Neutrophil % 81.4 % (47-70); Platelet Count 173 K/mm3 (150-450); RBC Distribution Width CV 15.7 % (11.6-14.6); RBC Distribution Width SD 54.4 fl (35.1-43.9); Red Blood Count 4.51 M/mm3 (4.6-6.2); White Blood Count 9.6 K/mm3 (4.4-11.0)
[2023-05-24 08:33] LABS: Anion Gap 4 (5-15); BUN 14 mg/dL (7-18); BUN/Creat Ratio 12.7 RATIO (10-20); Calcium,Total 9.6 mg/dL (8.5-10.1); Chloride 99 mmol/L (98-107); EST Glomerular Filtration Rate 68 mL/min (>60); Est Glom Filt Rate - Afr Amer 82 mL/min (>60); Glucose 145 mg/dL (74-106); Potassium 3.2 mmol/L (3.5-5.1); Sodium Level 136 mmol/L (136-145)
== END ==
LOC: OLS.WHLTSB 05:00
PROVIDERS: PCP Internal Medicine; Visit Provider Internal Medicine
DX: I10 Essential (primary) hypertension (principal); J44.9 Chronic obstructive pulmonary disease, unspecified
CPT/HCPCS: 36415; 80048; 85025

== ENCOUNTER → 2023-05-30 | Outpatient (CLI) | payer MEDICARE, SELFPAY | END | disposition home or self-care (01) | LOC: PSN 10:25 | PROVIDERS: PCP Internal Medicine; Referring Provider Nurse Practitioner Gerontology; Visit Provider Nurse Practitioner Gerontology | DX: R00.1 Bradycardia, unspecified (principal); I48.0 Paroxysmal atrial fibrillation | CPT/HCPCS: 93225; 93226 ==

== ENCOUNTER → 2023-06-26 | Outpatient (REF) | payer MEDICARE, SELFPAY ==
[2023-06-26 08:32] LABS: Potassium 2.8 mmol/L (3.5-5.1)
== END ==
LOC: OLS.WHLTSB 04:00
PROVIDERS: PCP Internal Medicine; Referring Provider Internal Medicine; Visit Provider Internal Medicine
DX: E87.6 Hypokalemia (principal)
CPT/HCPCS: 36415; 84132

== ENCOUNTER → 2023-06-28 | Outpatient (REF) | payer MEDICARE, SELFPAY ==
[2023-06-28 07:51] LABS: Absolute Lymphocyte Count 0.95 X10^3/uL (0.83-4.51); Absolute Neutrophil Count 6.1 X10^3/uL (2.0-7.7); Basophil# 0.03 X10^3/uL; Basophil% 0.4 % (0-1); Eosinophils% 2.5 % (0-5); Hematocrit 41.3 % (40-54); Hemoglobin 13.7 g/dL (13.0-16.5); Lymphocyte # 0.95 X10^3/ul (0.83-4.51); Lymphocyte % 12.1 % (19-41); Mean Corp Hgb Conc 33.2 g/dL (32-36); Mean Corpuscular Hgb 32.1 pg (27.0-32.0); Mean Corpuscular Volume 96.7 fL (80-94); Mean Platelet Vol. 11.5 fl (6.2-12.0); Monocyte# 0.57 X10^3/uL; Monocyte% 7.3 % (0-10); NRBC Flagged by Analyzer 0 % (0-5); Neutrophil # 6.08 X10^3/uL (2.7-7.7); Neutrophil % 77.3 % (47-70); Platelet Count 122 K/mm3 (150-450); RBC Distribution Width CV 15.7 % (11.6-14.6); RBC Distribution Width SD 55.1 fl (35.1-43.9); Red Blood Count 4.27 M/mm3 (4.6-6.2); White Blood Count 7.9 K/mm3 (4.4-11.0)
[2023-06-28 07:58] LABS: Anion Gap 6 (5-15); BUN 13 mg/dL (7-18); Calcium,Total 8.9 mg/dL (8.5-10.1); Chloride 102 mmol/L (98-107); Creatinine, Serum 1.08 mg/dL (0.70-1.30); EST Glomerular Filtration Rate 69 mL/min (>60); Est Glom Filt Rate - Afr Amer 84 mL/min (>60); Glucose 128 mg/dL (74-106); Potassium 3.1 mmol/L (3.5-5.1); Sodium Level 140 mmol/L (136-145)
== END ==
LOC: OLS.WHLTSB 05:00
PROVIDERS: PCP Internal Medicine; Visit Provider Internal Medicine
DX: I10 Essential (primary) hypertension (principal)
CPT/HCPCS: 36415; 80048; 85025

== ENCOUNTER → 2023-07-01 | Outpatient (REF) | payer MEDICARE, SELFPAY ==
[2023-07-01 09:33] LABS: Potassium 3.1 mmol/L (3.5-5.1)
== END ==
LOC: OLS.WHLTSB 05:00
PROVIDERS: PCP Internal Medicine; Visit Provider Nurse Practitioner Adult Health
DX: E87.6 Hypokalemia (principal)
CPT/HCPCS: 36415; 84132

== ENCOUNTER → 2023-07-19 | Outpatient (REF) | payer MEDICARE, SELFPAY ==
[2023-07-19 07:56] LABS: Anion Gap 7 (5-15); BUN 14 mg/dL (7-18); BUN/Creat Ratio 12.4 RATIO (10-20); Calcium,Total 9.1 mg/dL (8.5-10.1); Chloride 102 mmol/L (98-107); Creatinine, Serum 1.13 mg/dL (0.70-1.30); EST Glomerular Filtration Rate 66 mL/min (>60); Est Glom Filt Rate - Afr Amer 80 mL/min (>60); Glucose 140 mg/dL (74-106); Sodium Level 139 mmol/L (136-145)
== END ==
LOC: OLS.WHLTSB 05:00
PROVIDERS: PCP Internal Medicine; Visit Provider Internal Medicine
DX: I10 Essential (primary) hypertension (principal)
CPT/HCPCS: 36415; 80048

== ENCOUNTER → 2023-07-26 | Outpatient (REF) | payer MEDICARE, SELFPAY ==
[2023-07-26 07:45] LABS: Absolute Neutrophil Count 6.7 X10^3/uL (2.0-7.7); Basophil# 0.03 X10^3/uL; Basophil% 0.3 % (0-1); Eosinophil# 0.22 X10^3/uL; Eosinophils% 2.5 % (0-5); Hematocrit 45.1 % (40-54); Hemoglobin 14.7 g/dL (13.0-16.5); Lymphocyte % 13.5 % (19-41); Mean Corp Hgb Conc 32.6 g/dL (32-36); Mean Corpuscular Hgb 31.8 pg (27.0-32.0); Mean Corpuscular Volume 97.6 fL (80-94); Mean Platelet Vol. 11.7 fl (6.2-12.0); Monocyte# 0.66 X10^3/uL; Monocyte% 7.4 % (0-10); NRBC Flagged by Analyzer 0 % (0-5); Neutrophil # 6.71 X10^3/uL (2.7-7.7); Neutrophil % 75.8 % (47-70); Platelet Count 126 K/mm3 (150-450); RBC Distribution Width CV 14.8 % (11.6-14.6); RBC Distribution Width SD 53.4 fl (35.1-43.9); Red Blood Count 4.62 M/mm3 (4.6-6.2); White Blood Count 8.9 K/mm3 (4.4-11.0)
[2023-07-26 08:56] LABS: Anion Gap 9 (5-15); BUN 16 mg/dL (7-18); BUN/Creat Ratio 13.6 RATIO (10-20); Calcium,Total 9.6 mg/dL (8.5-10.1); Chloride 98 mmol/L (98-107); Creatinine, Serum 1.18 mg/dL (0.70-1.30); EST Glomerular Filtration Rate 63 mL/min (>60); Est Glom Filt Rate - Afr Amer 76 mL/min (>60); Glucose 141 mg/dL (74-106); Sodium Level 137 mmol/L (136-145)
== END ==
LOC: OLS.WHLTSB 05:00
PROVIDERS: PCP Internal Medicine; Visit Provider Internal Medicine
DX: I10 Essential (primary) hypertension (principal)
CPT/HCPCS: 36415; 80048; 85025

== ENCOUNTER → 2023-08-01 | Outpatient (REF) | payer MEDICARE, SELFPAY | LOC: OLS.WHLTSB 05:00 | PROVIDERS: PCP Internal Medicine; Visit Provider Internal Medicine | DX: E87.6 Hypokalemia (principal) | CPT/HCPCS: 36415; 84132 ==

== ENCOUNTER → 2023-08-05 | Outpatient (REF) | payer MEDICARE, SELFPAY ==
[2023-08-05 08:41] LABS: Potassium 2.8 mmol/L (3.5-5.1)
== END ==
LOC: OLS.WHLTSB 04:00
PROVIDERS: PCP Internal Medicine; Referring Provider Internal Medicine; Visit Provider Internal Medicine
DX: E87.6 Hypokalemia (principal)
CPT/HCPCS: 36415; 84132

== ENCOUNTER → 2023-08-07 | Outpatient (REF) | payer MEDICARE, SELFPAY ==
[2023-08-07 07:33] LABS: Potassium 3.3 mmol/L (3.5-5.1)
== END ==
LOC: OLS.WHLTSB 05:00
PROVIDERS: PCP Internal Medicine; Visit Provider Internal Medicine
DX: E87.6 Hypokalemia (principal)
CPT/HCPCS: 36415; 84132

== ENCOUNTER → 2023-08-12 | Outpatient (REF) | payer MEDICARE, SELFPAY ==
[2023-08-12 09:22] LABS: Anion Gap 6 (5-15); BUN 14 mg/dL (7-18); BUN/Creat Ratio 13.5 RATIO (10-20); Calcium,Total 9.6 mg/dL (8.5-10.1); Chloride 104 mmol/L (98-107); Creatinine, Serum 1.04 mg/dL (0.70-1.30); EST Glomerular Filtration Rate 73 mL/min (>60); Est Glom Filt Rate - Afr Amer 88 mL/min (>60); Glucose 129 mg/dL (74-106); Potassium 4.1 mmol/L (3.5-5.1); Sodium Level 137 mmol/L (136-145)
== END ==
LOC: OLS.WHLTSB 05:00
PROVIDERS: PCP Internal Medicine; Visit Provider Internal Medicine
DX: E87.6 Hypokalemia (principal)
CPT/HCPCS: 36415; 80048

== ENCOUNTER → 2023-08-30 | Outpatient (REF) | payer MEDICARE, SELFPAY ==
[2023-08-30 08:55] LABS: Absolute Lymphocyte Count 1.24 X10^3/uL (0.83-4.51); Absolute Neutrophil Count 6.2 X10^3/uL (2.0-7.7); Basophil# 0.04 X10^3/uL; Basophil% 0.5 % (0-1); Eosinophil# 0.23 X10^3/uL; Eosinophils% 2.7 % (0-5); Hematocrit 44.8 % (40-54); Hemoglobin 14.5 g/dL (13.0-16.5); Lymphocyte # 1.24 X10^3/ul (0.83-4.51); Lymphocyte % 14.8 % (19-41); Mean Corp Hgb Conc 32.4 g/dL (32-36); Mean Corpuscular Hgb 32.5 pg (27.0-32.0); Mean Corpuscular Volume 100.4 fL (80-94); Mean Platelet Vol. 11.9 fl (6.2-12.0); Monocyte# 0.67 X10^3/uL; NRBC Flagged by Analyzer 0 % (0-5); Neutrophil # 6.16 X10^3/uL (2.7-7.7); Neutrophil % 73.5 % (47-70); Platelet Count 119 K/mm3 (150-450); RBC Distribution Width CV 15.1 % (11.6-14.6); RBC Distribution Width SD 56.1 fl (35.1-43.9); Red Blood Count 4.46 M/mm3 (4.6-6.2); White Blood Count 8.4 K/mm3 (4.4-11.0)
[2023-08-30 09:13] LABS: ALB/GLOB Ratio 1.1 RATIO (0.9-2.4); AST(SGOT) 16 U/L (15-37); Alanine Aminotransfer ALT/SGPT 23 U/L (16-61); Albumin, Serum 3.5 g/dL (3.2-5.0); Alkaline Phosphatase 168 U/L (45-117); Anion Gap 10 (5-15); BUN 25 mg/dL (7-18); BUN/Creat Ratio 17.6 RATIO (10-20); Calcium,Total 9.4 mg/dL (8.5-10.1); Chloride 103 mmol/L (98-107); Cholesterol 115 mg/dL (200); Creatinine, Serum 1.42 mg/dL (0.70-1.30); EST Glomerular Filtration Rate 51 mL/min (>60); Est Glom Filt Rate - Afr Amer 61 mL/min (>60); Globulin 3.1 g/dL (2.2-4.2); Glucose 129 mg/dL (74-106); High Density Lipoprotein 34 mg/dL; Potassium 4.3 mmol/L (3.5-5.1); Protein, Total 6.6 g/dL (6.4-8.2); Sodium Level 137 mmol/L (136-145); Triglycerides 123 mg/dL; Very Low Density Lipoprotein 25 mg/dL (5-40)
[2023-08-30 09:17] LABS: Hemoglobin A1c 6.7 % (3.8-5.6)
== END ==
LOC: OLS.WHLTSB 04:00
PROVIDERS: PCP Internal Medicine; Referring Provider Internal Medicine; Visit Provider Internal Medicine
DX: I10 Essential (primary) hypertension (principal); E78.00 Pure hypercholesterolemia, unspecified; E11.9 Type 2 diabetes mellitus without complications
CPT/HCPCS: 36415; 80053; 80061; 83036; 85025

== ENCOUNTER → 2023-09-27 | Outpatient (REF) | payer MEDICARE, SELFPAY ==
[2023-09-27 08:05] LABS: Absolute Lymphocyte Count 1.36 X10^3/uL (0.83-4.51); Absolute Neutrophil Count 6.5 X10^3/uL (2.0-7.7); Basophil# 0.04 X10^3/uL; Basophil% 0.5 % (0-1); Eosinophils% 2.3 % (0-5); Hematocrit 43.8 % (40-54); Hemoglobin 14.3 g/dL (13.0-16.5); Lymphocyte # 1.36 X10^3/ul (0.83-4.51); Lymphocyte % 15.5 % (19-41); Mean Corp Hgb Conc 32.6 g/dL (32-36); Mean Corpuscular Hgb 32.3 pg (27.0-32.0); Mean Corpuscular Volume 98.9 fL (80-94); Mean Platelet Vol. 12.3 fl (6.2-12.0); Monocyte# 0.66 X10^3/uL; Monocyte% 7.5 % (0-10); NRBC Flagged by Analyzer 0 % (0-5); Neutrophil # 6.46 X10^3/uL (2.7-7.7); Neutrophil % 73.6 % (47-70); Platelet Count 109 K/mm3 (150-450); RBC Distribution Width CV 15.1 % (11.6-14.6); RBC Distribution Width SD 54.4 fl (35.1-43.9); Red Blood Count 4.43 M/mm3 (4.6-6.2); White Blood Count 8.8 K/mm3 (4.4-11.0)
[2023-09-27 08:30] LABS: AST(SGOT) 16 U/L (15-37); Alanine Aminotransfer ALT/SGPT 28 U/L (16-61); Albumin, Serum 3.5 g/dL (3.2-5.0); Alkaline Phosphatase 143 U/L (45-117); Anion Gap 6 (5-15); BUN 27 mg/dL (7-18); BUN/Creat Ratio 19.9 RATIO (10-20); Bilirubin, Direct 0.13 mg/dL (0.00-0.30); Calcium,Total 9.4 mg/dL (8.5-10.1); Chloride 106 mmol/L (98-107); Creatinine, Serum 1.36 mg/dL (0.70-1.30); EST Glomerular Filtration Rate 53 mL/min (>60); Est Glom Filt Rate - Afr Amer 64 mL/min (>60); Glucose 171 mg/dL (74-106); Potassium 4.6 mmol/L (3.5-5.1); Protein, Total 6.5 g/dL (6.4-8.2); Sodium Level 137 mmol/L (136-145)
[2023-09-27 14:05] LABS: Hemoglobin A1c 6.9 % (3.8-5.6)
== END ==
LOC: OLS.WHLTSB 05:00
PROVIDERS: PCP Internal Medicine; Visit Provider Internal Medicine
DX: I10 Essential (primary) hypertension (principal); E11.9 Type 2 diabetes mellitus without complications
CPT/HCPCS: 36415; 80048; 80076; 83036; 85025

== ENCOUNTER → 2023-10-25 | Outpatient (REF) | payer MEDICARE, SELFPAY ==
[2023-10-25 08:16] LABS: Anion Gap 6 (5-15); BUN 24 mg/dL (7-18); BUN/Creat Ratio 18.3 RATIO (10-20); Calcium,Total 9.6 mg/dL (8.5-10.1); Chloride 105 mmol/L (98-107); Creatinine, Serum 1.31 mg/dL (0.70-1.30); EST Glomerular Filtration Rate 56 mL/min (>60); Est Glom Filt Rate - Afr Amer 67 mL/min (>60); Glucose 138 mg/dL (74-106); Potassium 4.4 mmol/L (3.5-5.1); Sodium Level 136 mmol/L (136-145)
[2023-10-25 08:19] LABS: Absolute Lymphocyte Count 1.53 X10^3/uL (0.83-4.51); Absolute Neutrophil Count 6.3 X10^3/uL (2.0-7.7); Basophil# 0.04 X10^3/uL; Basophil% 0.4 % (0-1); Eosinophil# 0.56 X10^3/uL; Hemoglobin 14.3 g/dL (13.0-16.5); Lymphocyte # 1.53 X10^3/ul (0.83-4.51); Lymphocyte % 16.5 % (19-41); Mean Corp Hgb Conc 33.3 g/dL (32-36); Mean Corpuscular Hgb 32.4 pg (27.0-32.0); Mean Corpuscular Volume 97.5 fL (80-94); Mean Platelet Vol. 11.6 fl (6.2-12.0); Monocyte# 0.71 X10^3/uL; Monocyte% 7.7 % (0-10); NRBC Flagged by Analyzer 0 % (0-5); Platelet Count 107 K/mm3 (150-450); RBC Distribution Width CV 14.6 % (11.6-14.6); RBC Distribution Width SD 52.9 fl (35.1-43.9); Red Blood Count 4.41 M/mm3 (4.6-6.2); White Blood Count 9.3 K/mm3 (4.4-11.0)
== END ==
LOC: OLS.WHLTSB 05:00
PROVIDERS: PCP Internal Medicine; Visit Provider Internal Medicine
DX: I10 Essential (primary) hypertension (principal)
CPT/HCPCS: 36415; 80048; 85025

== ENCOUNTER → 2023-11-29 05:00 | Outpatient (REF) | payer MEDICARE, SELFPAY ==
[2023-11-29 07:17] LABS: Absolute Neutrophil Count 10.3 X10^3/uL (2.0-7.7); Basophil# 0.02 X10^3/uL; Basophil% 0.2 % (0-1); Eosinophil# 0.32 X10^3/uL; Eosinophils% 2.6 % (0-5); Hematocrit 43.3 % (40-54); Hemoglobin 14.5 g/dL (13.0-16.5); Lymphocyte % 6.6 % (19-41); Mean Corp Hgb Conc 33.5 g/dL (32-36); Mean Corpuscular Hgb 32.5 pg (27.0-32.0); Mean Corpuscular Volume 97.1 fL (80-94); Monocyte# 0.69 X10^3/uL; Monocyte% 5.7 % (0-10); NRBC Flagged by Analyzer 0 % (0-5); Neutrophil # 10.26 X10^3/uL (2.7-7.7); Neutrophil % 84.5 % (47-70); Platelet Count 127 K/mm3 (150-450); RBC Distribution Width CV 14.8 % (11.6-14.6); RBC Distribution Width SD 52.7 fl (35.1-43.9); Red Blood Count 4.46 M/mm3 (4.6-6.2); White Blood Count 12.1 K/mm3 (4.4-11.0)
[2023-11-29 10:02] LABS: Anion Gap 9 (5-15); BUN 22 mg/dL (7-18); BUN/Creat Ratio 17.6 RATIO (10-20); Calcium,Total 9.8 mg/dL (8.5-10.1); Chloride 102 mmol/L (98-107); Creatinine, Serum 1.25 mg/dL (0.70-1.30); EST Glomerular Filtration Rate 59 mL/min (>60); Est Glom Filt Rate - Afr Amer 71 mL/min (>60); Glucose 235 mg/dL (74-106); Potassium 4.4 mmol/L (3.5-5.1); Sodium Level 134 mmol/L (136-145)
== END ==
LOC: OLS.WHLTSB 05:00
PROVIDERS: PCP Internal Medicine; Visit Provider Internal Medicine
DX: I10 Essential (primary) hypertension (principal)
CPT/HCPCS: 36415; 80048; 85025

== ENCOUNTER → 2023-12-10 05:00 | Outpatient (REF) | payer MEDICARE, SELFPAY ==
[2023-12-10 08:26] LABS: Absolute Lymphocyte Count 1.78 X10^3/uL (0.83-4.51); Absolute Neutrophil Count 9.2 X10^3/uL (2.0-7.7); Basophil# 0.06 X10^3/uL; Basophil% 0.5 % (0-1); Hematocrit 44.9 % (40-54); Hemoglobin 14.8 g/dL (13.0-16.5); Lymphocyte # 1.78 X10^3/ul (0.83-4.51); Lymphocyte % 14.3 % (19-41); Mean Corpuscular Hgb 32.5 pg (27.0-32.0); Mean Corpuscular Volume 98.7 fL (80-94); Mean Platelet Vol. 11.5 fl (6.2-12.0); Monocyte# 0.85 X10^3/uL; Monocyte% 6.8 % (0-10); NRBC Flagged by Analyzer 0 % (0-5); Neutrophil # 9.21 X10^3/uL (2.7-7.7); Neutrophil % 73.8 % (47-70); Platelet Count 126 K/mm3 (150-450); RBC Distribution Width CV 14.5 % (11.6-14.6); RBC Distribution Width SD 52.7 fl (35.1-43.9); Red Blood Count 4.55 M/mm3 (4.6-6.2); White Blood Count 12.5 K/mm3 (4.4-11.0)
[2023-12-10 08:30] LABS: CRP < 2.90 mg/L (0.0-3.0); Uric Acid 5.2 mg/dL (3.5-7.2)
== END ==
LOC: OLS.WHLTSB 05:00
PROVIDERS: PCP Internal Medicine; Visit Provider Internal Medicine
DX: Z95.2 Presence of prosthetic heart valve (principal)
CPT/HCPCS: 36415; 84550; 85025; 86140

== ENCOUNTER → 2023-12-17 05:00 | Outpatient (REF) | payer MEDICARE, SELFPAY ==
[2023-12-17 08:19] LABS: Absolute Lymphocyte Count 1.68 X10^3/uL (0.83-4.51); Absolute Neutrophil Count 6.2 X10^3/uL (2.0-7.7); Basophil# 0.05 X10^3/uL; Basophil% 0.5 % (0-1); Eosinophil# 0.61 X10^3/uL; Eosinophils% 6.5 % (0-5); Hematocrit 41.8 % (40-54); Hemoglobin 13.6 g/dL (13.0-16.5); Lymphocyte # 1.68 X10^3/ul (0.83-4.51); Mean Corp Hgb Conc 32.5 g/dL (32-36); Mean Corpuscular Hgb 32.6 pg (27.0-32.0); Mean Corpuscular Volume 100.2 fL (80-94); Monocyte# 0.74 X10^3/uL; Monocyte% 7.9 % (0-10); NRBC Flagged by Analyzer 0 % (0-5); Neutrophil # 6.17 X10^3/uL (2.7-7.7); Neutrophil % 66.3 % (47-70); Platelet Count 113 K/mm3 (150-450); RBC Distribution Width CV 14.6 % (11.6-14.6); RBC Distribution Width SD 53.1 fl (35.1-43.9); Red Blood Count 4.17 M/mm3 (4.6-6.2); White Blood Count 9.3 K/mm3 (4.4-11.0)
== END ==
LOC: OLS.WHLTSB 05:00
PROVIDERS: PCP Internal Medicine; Visit Provider Internal Medicine
DX: L08.9 Local infection of the skin and subcutaneous tissue, unspecified (principal)
CPT/HCPCS: 36415; 85025

== ENCOUNTER → 2023-12-27 05:00 | Outpatient (REF) | payer MEDICARE, SELFPAY ==
[2023-12-27 08:03] LABS: Absolute Lymphocyte Count 1.44 X10^3/uL (0.83-4.51); Absolute Neutrophil Count 6.1 X10^3/uL (2.0-7.7); Basophil# 0.03 X10^3/uL; Basophil% 0.3 % (0-1); Eosinophil# 0.47 X10^3/uL; Eosinophils% 5.4 % (0-5); Hematocrit 43.2 % (40-54); Lymphocyte # 1.44 X10^3/ul (0.83-4.51); Lymphocyte % 16.4 % (19-41); Mean Corp Hgb Conc 32.4 g/dL (32-36); Mean Corpuscular Hgb 32.9 pg (27.0-32.0); Mean Corpuscular Volume 101.4 fL (80-94); Mean Platelet Vol. 12.1 fl (6.2-12.0); Monocyte# 0.68 X10^3/uL; Monocyte% 7.7 % (0-10); NRBC Flagged by Analyzer 0 % (0-5); Neutrophil # 6.12 X10^3/uL (2.7-7.7); Neutrophil % 69.7 % (47-70); Platelet Count 100 K/mm3 (150-450); RBC Distribution Width SD 55.7 fl (35.1-43.9); Red Blood Count 4.26 M/mm3 (4.6-6.2); White Blood Count 8.8 K/mm3 (4.4-11.0)
[2023-12-27 08:16] LABS: AST(SGOT) 18 U/L (15-37); Alanine Aminotransfer ALT/SGPT 20 U/L (16-61); Albumin, Serum 3.6 g/dL (3.2-5.0); Alkaline Phosphatase 166 U/L (45-117); Anion Gap 7 (5-15); BUN 26 mg/dL (7-18); BUN/Creat Ratio 19.8 RATIO (10-20); Bilirubin, Direct 0.15 mg/dL (0.00-0.30); Calcium,Total 9.8 mg/dL (8.5-10.1); Chloride 103 mmol/L (98-107); Creatinine, Serum 1.31 mg/dL (0.70-1.30); EST Glomerular Filtration Rate 56 mL/min (>60); Est Glom Filt Rate - Afr Amer 67 mL/min (>60); Globulin 3.1 g/dL (2.2-4.2); Glucose 131 mg/dL (74-106); Potassium 4.6 mmol/L (3.5-5.1); Protein, Total 6.7 g/dL (6.4-8.2); Sodium Level 135 mmol/L (136-145)
[2023-12-27 08:37] LABS: Hemoglobin A1c 7.4 % (3.8-5.6)
== END ==
LOC: OLS.WHLTSB 05:00
PROVIDERS: PCP Internal Medicine; Visit Provider Internal Medicine
DX: E11.9 Type 2 diabetes mellitus without complications (principal); I10 Essential (primary) hypertension
CPT/HCPCS: 36415; 80048; 80076; 83036; 85025

== ENCOUNTER → 2024-01-07 05:00 | Outpatient (REF) | payer MEDICARE, SELFPAY ==
[2024-01-07 08:31] LABS: Magnesium 1.6 mg/dL (1.6-2.6)
== END ==
LOC: OLS.WHLTSB 05:00
PROVIDERS: PCP Internal Medicine; Visit Provider Internal Medicine
DX: F01.50 Vascular dementia, unspecified severity, without behavioral disturbance, psychotic disturbance, mood disturbance, and anxiety (principal); K59.00 Constipation, unspecified
CPT/HCPCS: 36415; 83735

== ENCOUNTER → 2024-01-09 11:30 | Outpatient (REF) | payer MEDICARE, SELFPAY | LOC: OLS.WHLTSB 11:30 | PROVIDERS: PCP Internal Medicine; Visit Provider Internal Medicine | DX: S81.802D Unspecified open wound, left lower leg, subsequent encounter (principal) | CPT/HCPCS: 87070; 87077; 87186; 87205 ==

== ENCOUNTER → 2024-01-24 05:00 | Outpatient (REF) | payer MEDICARE, SELFPAY ==
[2024-01-24 08:43] LABS: Absolute Lymphocyte Count 1.26 X10^3/uL (0.83-4.51); Basophil# 0.03 X10^3/uL; Basophil% 0.3 % (0-1); Eosinophil# 0.28 X10^3/uL; Eosinophils% 2.7 % (0-5); Hemoglobin 13.4 g/dL (13.0-16.5); Lymphocyte # 1.26 X10^3/ul (0.83-4.51); Lymphocyte % 12.2 % (19-41); Mean Corp Hgb Conc 32.7 g/dL (32-36); Mean Corpuscular Hgb 33.1 pg (27.0-32.0); Mean Corpuscular Volume 101.2 fL (80-94); Mean Platelet Vol. 11.6 fl (6.2-12.0); Monocyte% 6.8 % (0-10); NRBC Flagged by Analyzer 0 % (0-5); Neutrophil # 7.96 X10^3/uL (2.7-7.7); Neutrophil % 77.1 % (47-70); Platelet Count 126 K/mm3 (150-450); RBC Distribution Width SD 56.5 fl (35.1-43.9); Red Blood Count 4.05 M/mm3 (4.6-6.2); White Blood Count 10.3 K/mm3 (4.4-11.0)
[2024-01-24 08:46] LABS: Anion Gap 8 (5-15); BUN 51 mg/dL (7-18); BUN/Creat Ratio 33.6 RATIO (10-20); Calcium,Total 9.2 mg/dL (8.5-10.1); Chloride 103 mmol/L (98-107); Creatinine, Serum 1.52 mg/dL (0.70-1.30); EST Glomerular Filtration Rate 47 mL/min (>60); Est Glom Filt Rate - Afr Amer 57 mL/min (>60); Glucose 131 mg/dL (74-106); Potassium 4.6 mmol/L (3.5-5.1); Sodium Level 134 mmol/L (136-145)
== END ==
LOC: OLS.WHLTSB 05:00
PROVIDERS: PCP Internal Medicine; Visit Provider Internal Medicine
DX: I10 Essential (primary) hypertension (principal)
CPT/HCPCS: 36415; 80048; 85025

== ENCOUNTER → 2024-02-04 | Outpatient (REF) | payer MEDICARE, SELFPAY | LOC: OLS.WHLTSB 05:00 | PROVIDERS: PCP Internal Medicine; Visit Provider Internal Medicine | DX: R48.8 Other symbolic dysfunctions (principal) | CPT/HCPCS: 36415; 82306 ==

== ENCOUNTER → 2024-02-28 05:00 | Outpatient (REF) | payer MEDICARE, SELFPAY ==
[2024-02-28 07:47] LABS: Absolute Lymphocyte Count 1.34 X10^3/uL (0.83-4.51); Absolute Neutrophil Count 6.7 X10^3/uL (2.0-7.7); Basophil# 0.04 X10^3/uL; Basophil% 0.4 % (0-1); Eosinophil# 0.24 X10^3/uL; Eosinophils% 2.7 % (0-5); Hematocrit 47.7 % (40-54); Hemoglobin 15.9 g/dL (13.0-16.5); Lymphocyte # 1.34 X10^3/ul (0.83-4.51); Lymphocyte % 14.8 % (19-41); Mean Corp Hgb Conc 33.3 g/dL (32-36); Mean Corpuscular Hgb 33.6 pg (27.0-32.0); Mean Corpuscular Volume 100.8 fL (80-94); Mean Platelet Vol. 11.8 fl (6.2-12.0); Monocyte# 0.69 X10^3/uL; Monocyte% 7.6 % (0-10); NRBC Flagged by Analyzer 0 % (0-5); Neutrophil # 6.69 X10^3/uL (2.7-7.7); Neutrophil % 73.9 % (47-70); Platelet Count 107 K/mm3 (150-450); RBC Distribution Width CV 15.1 % (11.6-14.6); RBC Distribution Width SD 56.3 fl (35.1-43.9); Red Blood Count 4.73 M/mm3 (4.6-6.2); White Blood Count 9.1 K/mm3 (4.4-11.0)
[2024-02-28 08:04] LABS: Anion Gap 9 (5-15); BUN 39 mg/dL (7-18); BUN/Creat Ratio 34.5 RATIO (10-20); Calcium,Total 9.1 mg/dL (8.5-10.1); Chloride 105 mmol/L (98-107); Cholesterol 97 mg/dL (200); Creatinine, Serum 1.13 mg/dL (0.70-1.30); EST Glomerular Filtration Rate 66 mL/min (>60); Est Glom Filt Rate - Afr Amer 80 mL/min (>60); Glucose 108 mg/dL (74-106); High Density Lipoprotein 29 mg/dL; Sodium Level 135 mmol/L (136-145); Triglycerides 119 mg/dL; Very Low Density Lipoprotein 24 mg/dL (5-40)
== END ==
LOC: OLS.WHLTSB 05:00
PROVIDERS: PCP Internal Medicine; Visit Provider Internal Medicine
DX: I10 Essential (primary) hypertension (principal); F01.50 Vascular dementia, unspecified severity, without behavioral disturbance, psychotic disturbance, mood disturbance, and anxiety; K59.00 Constipation, unspecified; I62.00 Nontraumatic subdural hemorrhage, unspecified
CPT/HCPCS: 36415; 80048; 80061; 85025

== ENCOUNTER → 2024-03-30 | Outpatient (REF) | payer MEDICARE, SELFPAY ==
[2024-03-30 09:21] LABS: Absolute Lymphocyte Count 1.13 X10^3/uL (0.83-4.51); Absolute Neutrophil Count 7.1 X10^3/uL (2.0-7.7); Basophil# 0.03 X10^3/uL; Basophil% 0.3 % (0-1); Eosinophil# 0.32 X10^3/uL; Eosinophils% 3.5 % (0-5); Hematocrit 46.2 % (40-54); Hemoglobin 15.3 g/dL (13.0-16.5); Lymphocyte # 1.13 X10^3/ul (0.83-4.51); Lymphocyte % 12.3 % (19-41); Mean Corp Hgb Conc 33.1 g/dL (32-36); Mean Corpuscular Hgb 33.8 pg (27.0-32.0); Mean Corpuscular Volume 102.2 fL (80-94); Mean Platelet Vol. 12.7 fl (6.2-12.0); Monocyte# 0.62 X10^3/uL; Monocyte% 6.7 % (0-10); NRBC Flagged by Analyzer 0 % (0-5); Neutrophil # 7.05 X10^3/uL (2.7-7.7); Neutrophil % 76.8 % (47-70); POSITIVE COUNT YES; RBC Distribution Width CV 15.1 % (11.6-14.6); RBC Distribution Width SD 57.1 fl (35.1-43.9); Red Blood Count 4.52 M/mm3 (4.6-6.2); White Blood Count 9.2 K/mm3 (4.4-11.0)
[2024-03-30 10:14] LABS: Differential Indicated SCAN CRITERIA MET
[2024-03-30 10:15] LABS: Platelet Estimate MOD DEC (ADEQ); Polychromasia 1+
[2024-03-30 12:20] LABS: Hemoglobin A1c 6.4 % (3.8-5.6)
== END ==
LOC: OLS.WHLTSB 05:00
PROVIDERS: PCP Internal Medicine; Visit Provider Nurse Practitioner Adult Health
DX: I10 Essential (primary) hypertension (principal); E11.9 Type 2 diabetes mellitus without complications
CPT/HCPCS: 36415; 83036; 85025

== ENCOUNTER → 2024-03-31 | Outpatient (REF) | payer MEDICARE, SELFPAY ==
[2024-03-31 08:49] LABS: AST(SGOT) 13 U/L (15-37); Alanine Aminotransfer ALT/SGPT 18 U/L (16-61); Albumin, Serum 3.1 g/dL (3.2-5.0); Alkaline Phosphatase 166 U/L (45-117); Anion Gap 7 (5-15); BUN 38 mg/dL (7-18); BUN/Creat Ratio 34.5 RATIO (10-20); Bilirubin, Direct 0.12 mg/dL (0.00-0.30); Calcium,Total 9.1 mg/dL (8.5-10.1); Chloride 104 mmol/L (98-107); EST Glomerular Filtration Rate 68 mL/min (>60); Est Glom Filt Rate - Afr Amer 82 mL/min (>60); Globulin 3.2 g/dL (2.2-4.2); Glucose 109 mg/dL (74-106); Potassium 4.7 mmol/L (3.5-5.1); Protein, Total 6.3 g/dL (6.4-8.2); Sodium Level 135 mmol/L (136-145)
== END ==
LOC: OLS.WHLTSB 04:08
PROVIDERS: PCP Internal Medicine; Referring Provider Internal Medicine; Visit Provider Internal Medicine
DX: I10 Essential (primary) hypertension (principal); E11.9 Type 2 diabetes mellitus without complications
CPT/HCPCS: 36415; 80048; 80076

== ENCOUNTER → 2024-05-01 | Outpatient (REF) | payer MEDICARE, SELFPAY ==
[2024-05-01 08:41] LABS: Absolute Lymphocyte Count 1.47 X10^3/uL (0.83-4.51); Absolute Neutrophil Count 5.3 X10^3/uL (2.0-7.7); Basophil# 0.01 X10^3/uL; Basophil% 0.1 % (0-1); Eosinophil# 0.21 X10^3/uL; Eosinophils% 2.8 % (0-5); Hematocrit 44.4 % (40-54); Hemoglobin 14.6 g/dL (13.0-16.5); Lymphocyte # 1.47 X10^3/ul (0.83-4.51); Lymphocyte % 19.3 % (19-41); Mean Corp Hgb Conc 32.9 g/dL (32-36); Mean Corpuscular Hgb 33.2 pg (27.0-32.0); Mean Corpuscular Volume 100.9 fL (80-94); Mean Platelet Vol. 12.1 fl (6.2-12.0); Monocyte# 0.58 X10^3/uL; Monocyte% 7.6 % (0-10); NRBC Flagged by Analyzer 0 % (0-5); Neutrophil # 5.31 X10^3/uL (2.7-7.7); Neutrophil % 69.9 % (47-70); Platelet Count 105 K/mm3 (150-450); RBC Distribution Width CV 14.7 % (11.6-14.6); RBC Distribution Width SD 55.9 fl (35.1-43.9); White Blood Count 7.6 K/mm3 (4.4-11.0)
[2024-05-01 08:48] LABS: Anion Gap 7 (5-15); BUN 39 mg/dL (7-18); BUN/Creat Ratio 33.9 RATIO (10-20); Calcium,Total 9.4 mg/dL (8.5-10.1); Chloride 102 mmol/L (98-107); Creatinine, Serum 1.15 mg/dL (0.70-1.30); EST Glomerular Filtration Rate 65 mL/min (>60); Est Glom Filt Rate - Afr Amer 78 mL/min (>60); Glucose 110 mg/dL (74-106); Potassium 4.6 mmol/L (3.5-5.1); Sodium Level 133 mmol/L (136-145)
== END ==
LOC: OLS.WHLTSB 04:00
PROVIDERS: PCP Internal Medicine; Referring Provider Internal Medicine; Visit Provider Internal Medicine
DX: I10 Essential (primary) hypertension (principal); I62.00 Nontraumatic subdural hemorrhage, unspecified; K59.00 Constipation, unspecified
CPT/HCPCS: 36415; 80048; 85025

== ENCOUNTER → 2024-05-10 20:00 | Outpatient (REF) | payer MEDICARE, SELFPAY | LOC: OLS.WHLTSB 20:00 | PROVIDERS: PCP Internal Medicine; Visit Provider Internal Medicine | DX: J12.89 Other viral pneumonia (principal) | CPT/HCPCS: 87449 ==

== ENCOUNTER → 2024-05-14 05:00 | Outpatient (REF) | payer MEDICARE, SELFPAY ==
[2024-05-14 09:42] LABS: Anion Gap 10 (5-15); BUN 38 mg/dL (7-18); BUN/Creat Ratio 29.9 RATIO (10-20); Calcium,Total 9.4 mg/dL (8.5-10.1); Chloride 102 mmol/L (98-107); Creatinine, Serum 1.27 mg/dL (0.70-1.30); EST Glomerular Filtration Rate 58 mL/min (>60); Est Glom Filt Rate - Afr Amer 70 mL/min (>60); Glucose 111 mg/dL (74-106); Potassium 4.7 mmol/L (3.5-5.1); Sodium Level 135 mmol/L (136-145)
== END ==
LOC: OLS.WHLTSB 05:00
PROVIDERS: PCP Internal Medicine; Visit Provider Internal Medicine
DX: I62.00 Nontraumatic subdural hemorrhage, unspecified (principal); F01.50 Vascular dementia, unspecified severity, without behavioral disturbance, psychotic disturbance, mood disturbance, and anxiety; L97.529 Non-pressure chronic ulcer of other part of left foot with unspecified severity; E87.6 Hypokalemia
CPT/HCPCS: 36415; 80048

== ENCOUNTER → 2024-05-29 | Outpatient (CLI) | payer MEDICARE, SELFPAY ==
--- NOTE | 2024-05-29 13:37 | ART_ITS ---
Reason For Study Reason For Study: Ulcer Procedure A bilateral lower extremity continuous wave Doppler with analog waveform analysis,segmental pressures,and ankle brachial indexes without exercise. Left Segmental Pressures Left brachial= 121mmHg. Left calf = 134mmHg. Left posterior tibial artery = 112mmHg. Left dorsalis pedis artery = 61mmHg. The left dorsalis pedis waveforms are monophasic. The left posterior tibial artery waveforms are monophasic. Right Segmental Pressures Right brachial= 118mmHg. Right posterior tibial artery = >254mmHg. Right dorsalis pedis artery = >254mmHg. Right digit = 101 mmHg. The right dorsalis pedis waveforms are biphasic. The right posterior tibial artery waveforms are biphasic. Indices The right ankle brachial index by the dorsalis pedis is NC. The right ankle brachial index by the posterior tibial artery is NC. The right digital-brachial index is 0.83. The left ankle brachial index by the posterior tibial artery is 0.93. The left ankle brachial index by the dorsalis pedis is 0.50. VL/Lower Ext Art Exam w/o Exercis Interpretation Summary Right DIMITRIS not able to be obtained due to non-compressible vessels. Doppler/PVR waveforms of the right mildly diminished at rest. Left DIMITRIS 0.93, mild arterial insufficiency though may be artificially elevated. Doppler/PVR waveforms of the left leg moderately diminished distal SFA/popliteal Ordering Physician: Agueda Champagne Referring Physician: Danielle Hernandez Performed By: Bill Sparks RVT and Student
== END | disposition home or self-care (01) ==
LOC: CVS 13:35
PROVIDERS: PCP Internal Medicine; Referring Provider Physician Assistant; Visit Provider Physician Assistant
DX: I73.9 Peripheral vascular disease, unspecified (principal)
CPT/HCPCS: 93923

== ENCOUNTER → 2024-06-15 | Outpatient (CLI) | payer MEDICARE, SELFPAY | END | disposition home or self-care (01) | LOC: LABSPEC 16:44 | PROVIDERS: PCP Internal Medicine; Visit Provider Podiatrist Foot & Ankle Surgery | DX: S91.302A Unspecified open wound, left foot, initial encounter (principal); X58.XXXA Exposure to other specified factors, initial encounter | CPT/HCPCS: 87070; 87077; 87186; 87205 ==

== ENCOUNTER → 2024-06-26 | Outpatient (REF) | payer MEDICARE, SELFPAY ==
[2024-06-26 08:16] LABS: Absolute Neutrophil Count 6.3 X10^3/uL (2.0-7.7); Basophil# 0.03 X10^3/uL; Basophil% 0.4 % (0-1); Eosinophil# 0.16 X10^3/uL; Eosinophils% 1.9 % (0-5); Hematocrit 45.4 % (40-54); Lymphocyte % 16.3 % (19-41); Mean Corpuscular Hgb 33.6 pg (27.0-32.0); Mean Corpuscular Volume 101.6 fL (80-94); Mean Platelet Vol. 12.2 fl (6.2-12.0); Monocyte# 0.67 X10^3/uL; Monocyte% 7.8 % (0-10); NRBC Flagged by Analyzer 0 % (0-5); Neutrophil # 6.26 X10^3/uL (2.7-7.7); Platelet Count 108 K/mm3 (150-450); RBC Distribution Width CV 15.5 % (11.6-14.6); Red Blood Count 4.47 M/mm3 (4.6-6.2); White Blood Count 8.6 K/mm3 (4.4-11.0)
[2024-06-26 08:36] LABS: AST(SGOT) 21 U/L (<=37); Alanine Aminotransfer ALT/SGPT 13 U/L (<=46); Albumin, Serum 3.6 g/dL (3.4-4.8); Alkaline Phosphatase 156 U/L (40-129); Anion Gap 12 (5-15); BUN 38 mg/dL (4-19); BUN/Creat Ratio 31.5 RATIO (10-20); Bilirubin, Direct 0.16 mg/dL (0.00-0.30); Calcium,Total 9.7 mg/dL (7.6-11.0); Carbon Dioxide 22.3 mmol/L (21.0-32.0); Chloride 101 mmol/L (98-108); Creatinine, Serum 1.21 mg/dL (0.70-1.20); EST Glomerular Filtration Rate 59 (>60); Globulin 2.6 g/dL (2.2-4.2); Glucose 118 mg/dL (70-99); Potassium 4.8 mmol/L (3.3-5.1); Protein, Total 6.3 g/dL (5.9-8.4); Sodium Level 135 mmol/L (133-145); Total Bilirubin 0.36 mg/dL (0.00-1.30)
[2024-06-26 08:46] LABS: Hemoglobin A1c 6.8 % (<=5.6)
== END ==
LOC: OLS.WHLTSB 05:00
PROVIDERS: PCP Internal Medicine; Visit Provider Internal Medicine
DX: E11.9 Type 2 diabetes mellitus without complications (principal); I62.00 Nontraumatic subdural hemorrhage, unspecified; F01.50 Vascular dementia, unspecified severity, without behavioral disturbance, psychotic disturbance, mood disturbance, and anxiety; K59.00 Constipation, unspecified; R06.2 Wheezing
CPT/HCPCS: 36415; 80048; 80076; 83036; 85025

== ENCOUNTER → 2024-07-21 | Outpatient (CLI) | payer MEDICARE, SELFPAY | END | disposition home or self-care (01) | PROVIDERS: PCP Internal Medicine; Visit Provider Podiatrist Foot & Ankle Surgery | DX: L97.919 Non-pressure chronic ulcer of unspecified part of right lower leg with unspecified severity (principal) | CPT/HCPCS: 87070; 87205 ==

== ENCOUNTER → 2024-08-07 | Outpatient (CLI) | payer MEDICARE, SELFPAY ==
--- NOTE | 2024-08-07 10:01 | ECHOCS_ITS ---
Reason For Study Reason For Study: CAD/ASHD Procedure This was a 2D Doppler, Color Flow transthoracic echocardiogram. The study was technically difficult. Contrast injection was performed. Exam performed in department. Left Ventricle Normal LV size. Mild concentric left ventricular hypertrophy. The LV systolic function is normal. EF is 65 %. Stage 1 diastolic dysfunction. Right Ventricle Normal right ventricle. Atria The left and right atria are normal. Mitral Valve Trivial mitral valve insufficiency. Tricuspid Valve Trivial tricuspid valve insufficiency. Unable to estimate RV systolic pressure due to insufficient tricuspid regurgitant envelope. Aortic Valve Moderately calcified bioprosthetic aortic valve. Mean peak gradient 46 mmHg. Previously noted mean peak gradient 31 mmHg in 2022. Trivial to mild regurgitation. Pulmonic Valve The pulmonic valve is not well visualized. Great Vessels The aortic root is not well visualized. Pericardium/Pleural No pericardial effusion. Medication 22 gauge I.V. with prn adaptor inserted into right arm. Diluted definity 3.5ml given slow IV push to enhance endocardial definition. MMode/2D Measurements & Calculations LVIDd: 3.7 cm IVSd: 1.5 cm LVOT diam: 2.0 cm LVIDs: 2.5 cm LVPWd: 1.5 cm RVDd: 3.7 cm FS: 33.5 % LVOT area: 3.2 cm2 LAV(MOD-bp): 45.5 ml LVAd ap4: 31.9 cm2 SV(MOD-sp4): 64.5 ml LAV(MOD-bp) Indexed: 21.8 ml/m2 LVLd ap4: 8.8 cm SI(MOD-sp4): 31.0 ml/m2 LAV(MOD-sp2): 49.8 ml EDV(MOD-sp4): 97.1 ml LAV(MOD-sp4): 38.2 ml EDV(sp4-el): 98.0 ml LVAs ap4: 16.7 cm2 LVLs ap4: 7.3 cm ESV(MOD-sp4): 32.6 ml ESV(sp4-el): 32.5 ml EF(MOD-sp4): 66.4 % EF(sp4-el): 66.8 % SV(sp4-el): 65.4 ml LA A4 area: 15.7 cm2 LA dimension(2D): 3.1 cm RA A4 area: 14.3 cm2 TAPSE: 1.7 cm Time Measurements MV dec time: 0.34 sec Doppler Measurements & Calculations MV E max sacha: 59.8 cm/sec Lat Peak E' Sacha: 9.9 cm/sec Med Peak E' Sacha: 5.6 cm/sec MV A max sacha: 102.9 cm/sec E/E' lat: 6.0 E/E' med: 10.7 MV E/A: 0.58 MV V2 max: 117.9 cm/sec MV P1/2t max sacha: 81.5 cm/sec Ao V2 max: 441.4 cm/sec MV max P.6 mmHg MV P1/2t: 104.0 msec Ao max P.1 mmHg MV V2 mean: 55.8 cm/sec MV dec slope: 229.6 cm/sec2 Ao V2 mean: 319.3 cm/sec MV mean P.5 mmHg MVA(P1/2t): 2.1 cm2 Ao mean P.1 mmHg MV V2 VTI: 28.7 cm Ao V2 VTI: 103.9 cm MVA(VTI): 3.0 cm2 AV (velocity ratio): 0.26 KAT(I,D): 0.83 cm2 KAT(V,D): 0.80 cm2 LV V1 max: 109.3 cm/sec SV(LVOT): 85.9 ml PA V2 max: 98.1 cm/sec LV V1 max P.9 mmHg LV V1 mean P.8 mmHg LV V1 mean: 78.8 cm/sec LV V1 VTI: 26.7 cm ECHO/Echo Complete W/ Contrast Interpretation Summary Mild concentric left ventricular hypertrophy. The LV systolic function is normal. EF is 65 %. Stage 1 diastolic dysfunction. Moderately calcified bioprosthetic aortic valve. Mean peak gradient 46 mmHg. Pr eviously noted mean peak gradient 31 mmHg in 2022. Recommend cardiac MRI or [facility]NA for further evaluation. The study was technically difficult. Ordering Physician: Yadira Desouza Referring Physician: Danielle Hernandez Performed By: Salvador Marcano RCS
== END | disposition home or self-care (01) ==
LOC: CVS 09:58
PROVIDERS: PCP Internal Medicine; Referring Provider Internal Medicine Cardiovascular Disease; Visit Provider Internal Medicine Cardiovascular Disease
DX: I25.10 Atherosclerotic heart disease of native coronary artery without angina pectoris (principal)
CPT/HCPCS: 93306; Q9957; A4216; C8929

== ENCOUNTER → 2024-08-26 17:00 | Outpatient (REF) | payer MEDICARE, SELFPAY ==
[2024-08-27 08:31] LABS: Color, Urine Yellow (Yellow); Glucose, Dipstick 1000 mg/dl (Normal); Ketone-Dipstick Negative (Negative); Leukocyte Esterase-Dipstick 500 /ul (Negative); Nitrite-Dipstick Negative (Negative); Occult Blood-Urine 25 /ul (Negative); Protein-Dipstick 15 mg/dl (Negative); Urine Bilirubin Dipstick Negative (Negative); Urine Clarity Clear (Clear); Urine Urobilinogen Normal (Normal)
== END ==
LOC: OLS.WHLTSB 17:00
PROVIDERS: PCP Internal Medicine; Visit Provider Internal Medicine
DX: N39.0 Urinary tract infection, site not specified (principal)
CPT/HCPCS: 81002; 87077; 87086; 87088; 87186

== ENCOUNTER → 2024-08-28 05:00 | Outpatient (REF) | payer MEDICARE, SELFPAY ==
[2024-08-28 15:53] LABS: Cholesterol 94 mg/dL (<=200); High Density Lipoprotein 30 mg/dL; Low Density Lipoprotein Calc. 48 mg/dL; Triglycerides 82 mg/dL; Very Low Density Lipoprotein 16 mg/dL (5-40); cholesterol:hdl ratio screen 3.16
== END ==
LOC: OLS.WHLTSB 05:00
PROVIDERS: PCP Internal Medicine; Visit Provider Internal Medicine
DX: E78.00 Pure hypercholesterolemia, unspecified (principal)
CPT/HCPCS: 36415; 80061

== ENCOUNTER → 2024-11-26 05:00 | Outpatient (REF) | payer MEDICARE, SELFPAY ==
--- OUTSIDE RECORDS SUMMARY | 2024-11-26 03:46 | XMS RPT_ITS | CCD ---
Author Organization [facility] Care Team Providers Care Redrying Machine Operator Name Role Phone Juan Wilson Attending Unavailable Yunior-[place] Primary Care Unavailab le [place], Garce Ervin Attending Unavailab le Yunior-Calli, Grace Ervin Referring Unavailab le [place], Grace Ervin Primary Care Unavailab le [place], Grace Ervin Attending Unavailab le Yunior-Calli, Grace Ervin Primary Care Unavailab Mary Kay Kaiser Attending Unavailable Mary Kay Ty Referring Unavailable [place], Grace Ervin Primary Care Unavailab le EshamNeno Attending Unavailable EshamNeno Referring Unavailable [place], Grace Ervin Primary Care Unavailab le Esham, Neno Sawyer Attending Unavailable Esham, Neno Sawyer Referring Unavailable Yunior-Calli, Grace Ervin Primary Care Unavailab le [place], Grace M Primary Care Unavailab Maximino Pete Attending Unavailable Esshantell, Neno Sawyer Attending Unavailable Esham, Neno Sawyer Referring Unavailable [place], Grace M Primary Care Unavailab le Yunior-Calli, Grace Ervin Primary Care Unavailab Haroon Griffith Admitting Unavailable Neno Domínguez Consulting Unavailable Sr Ailinucaremn Attending Unavailable Mario Szymanski Consulting Unavailable Reji Anderson Consulting Unavailable Haroon Patel Consulting Unavailable Belgica Elizondo Consulting Unavailable Deion Burks Consulting Unavailable Darlene Ng Consulting Unavailable Wilmar Rosales Consulting Unavailable Suhail Zamudio Consulting Unavailable Ramesh Stringer Consulting Unavailable Juan Wilson Attending Unavailable Juan Wilson Referring Unavailable [place], Grace Ervin Primary Care Unavailab Mary Kay Kaiser Attending Unavailable Yunior-Calli, Grace Ervin Primary Care Unavailab le [place], Grace Ervin Primary Care Provider [phone] Neno Domínguez Attending Provider Yunior-Calli, Grace Ervin Attending Provider ELLY KIM Attending Unavailable YUNIOR-CALLI, GRACE OLIVER Primary Care Laura Flores MD, PhD, Anshul Melvin Unavailable Yunior-Calli SHETTY, Grace Primary Care Provider Marcial Bettencourt DO Unavailable Mark SHETTY, PhD, Anshul Melvin Unavailable [phone] Walker SHETTY, Benigno Fernández Unavailable YUNIOR-CALLI, GRACE Referring Unavailable YUNIOR-CALLI, GRACE Primary Care Unavailable NENO DOMÍNGUEZ Attending Unavailable YUNIOR-CALLI, GRACE Referring Unavailable YUNIOR-CALLI, GRACE Primary Care Unavailable YUNIOR-CALLI, GRACE Referring Unavailable YUNIOR-CALLI, GRACE Primary Care Unavailable YUNIOR-CALLI, GRACE Referring Unavailable YUNIOR-CALLI, GRACE Primary Care Unavailable YUNIOR-CALLI, GRACE Referring Unavailable YUNIOR-CALLI, GRACE Attending Unavailable YUNIOR-CALLI, GRACE Primary Care Unavailable YUNIOR-CALLI, GRACE Attending Unavailable YUNIOR-CALLI, GRACE Referring Unavailable YUNIOR-CALLI, GRACE Primary Care Unavailable YUNIOR-CALLI, GRACE Attending Unavailable YUNIOR-CALLI, GRACE Referring Unavailable YUNIOR-CALLI, GRACE Primary Care Unavailable YUNIOR-CALLI, GRACE Attending Unavailable YUNIOR-CALLI, GRACE Referring Unavailable YUNIOR-CALLI, GRACE Primary Care Unavailable YUNIOR-CALLI, GRACE Attending Unavailable YUNIOR-CALLI, GRACE Referring Unavailable YUNIOR-CALLI, GRACE Primary Care Unavailable YUNIOR-CALLI, GRACE Attending Unavailable YUNIOR-CALLI, GRACE Referring Unavailable YUNIOR-CALLI, GRACE Primary Care Unavailable YUNIOR-CALLI, GRACE Attending Unavailable YUNIOR-CALLI, GRACE Referring Unavailable YUNIOR-CALLI, GRACE Primary Care Unavailable YUNIOR-CALLI, GRACE Attending Unavailable YUNIOR-CALLI, GRACE Referring Unavailable YUNIOR-CALLI, GRACE Primary Care Unavailable YUNIOR-CALLI, GRACE Attending Unavailable YUNIOR-CALLI, GRACE Referring Unavailable YUNIOR-CALLI, GRACE Primary Care Unavailable SELF, SELF Referring Unavailable YUNIOR-CALLI, [facility] Primary Care Unavailable NENO DOMÍNGUEZ Attending Unavailable YUNIOR-CALLI, GRACE Attending Unavailable YUNIOR-CALLI, GRACE Referring Unavailable YUNIOR-CALLI, GRACE Primary Care Unavailable YUNIOR-CALLI, GRACE Attending Unavailable YUNIOR-CALLI, GRACE Referring Unavailable YUNIOR-CALLI, [facility] Primary Care Unavailable YUNIOR-CALLI, GRACE Attending Unavailable YUNIOR-CALLI, GRACE Referring Unavailable YUNIOR-CALLI, [facility] Primary Care Unavailable JAIME DICKEY Attending Unavailable JAIME DICKEY Referring Unavailable YUNIOR-CALLI, [facility] Primary Care Unavailable JAIME DICKEY Attending Unavailable SELF, SELF Referring Unavailable YUNIOR-CALLI, [facility] Primary Care Unavailable YUNIOR-CALLI, GRACE Attending Unavailable YUNIOR-CALLI, GRACE Referring Unavailable YUNIOR-CALLI, GRACE Primary Care Unavailable YUNIOR-CALLI, GRACE Attending Unavailable YUNIOR-CALLI, GRACE Referring Unavailable YUNIOR-CALLI, GRACE Primary Care Unavailable YUNIOR-CALLI, GRACE Referring Unavailable YUNIOR-CALLI, GRACE Primary Care Unavailable YUNIOR-CALLI, GRACE Attending Unavailable YUNIOR-CALLI, GRACE Referring Unavailable YUNIOR-CALLI, GRACE Primary Care Unavailable YUNIOR-CALLI, GRACE Referring Unavailable YUNIOR-CALLI, GRACE Primary Care Unavailable ANSHUL MCCORMICK Attending Unavailable YUNIOR-CALLI, GRACE Referring Unavailable YUNIOR-CALLI, GRACE Primary Care Unavailable YUNIOR-CALLI, GRACE Attending Unavailable YUNIOR-CALLI, GRACE Referring Unavailable YUNIOR-CALLI, GRACE Primary Care Unavailable YUNIOR-CALLI, GRACE Attending Unavailable YUNIOR-CALLI, GRACE Referring Unavailable YUNIOR-CALLI, GRACE Primary Care Unavailable YUNIOR-CALLI, GRACE Referring Unavailable YUNIOR-CALLI, GRACE Primary Care Unavailable YUNIOR-CALLI, GRACE Attending Unavailable YUNIOR-CALLI, GRACE Referring Unavailable YUNIOR-CALLI, [facility] Primary Care Unavailable YUNIOR-CALLI, [facility] Primary Care Unavailable JUAN WILSON Attending Unavailable JUAN WILSON Referring Unavailable YUNIOR-CALLI, GRACE Referring Unavailable YUNIOR-CALLI, [facility] Primary Care Unavailable SELF, SELF Referring Unavailable YUNIOR-CALLI, [facility] Primary Care Unavailable JUAN WILSON Attending Unavailable YUNIOR-CALLI, GRACE Referring Unavailable YUNIOR-CALLI, [facility] Primary Care Unavailable YUNIOR-CALLI, [facility] Primary Care Unavailable JUAN WILSON Attending Unavailable JUAN WILSON Referring Unavailable YUNIOR-CALLI, [facility] Primary Care Unavailable JUAN WILSON Attending Unavailable JUAN WILSON Referring Unavailable YUNIOR-CALLI, [facility] Primary Care Unavailable JUAN WILSON Attending Unavailable JUAN WILSON Referring Unavailable YUNIOR-CALLI, GRACE Referring Unavailable YUNIOR-CALLI, [facility] Primary Care Unavailable YUNIOR-CALLI, GRACE Attending Unavailable YUNIOR-CALLI, GRACE Referring Unavailable YUNIOR-CALLI, [facility] Primary Care Unavailable YUNIOR-CALLI, GRACE Attending Unavailable YUNIOR-CALLI, GRACE Referring Unavailable YUNIOR-CALLI, [facility] Primary Care Unavailable SELF, SELF Referring Unavailable YUNIOR-CALLI, [facility] Primary Care Unavailable NENO DOMÍNGUEZ Attending Unavailable YUNIOR-CALLI, GRACE Referring Unavailable YUNIOR-CALLI, [facility] Primary Care Unavailable YUNIOR-CALLI, [facility] Primary Care Unavailable YUNIOR-CALLI, [facility] Primary Care Unavailable YUNIOR-CALLI, [facility] Primary Care Unavailable YUNIOR-CALLI, [facility] Primary Care Unavailable YUNIOR-CALLI, [facility] Primary Care Unavailable YUNIOR-CALLI, [facility] Primary Care Unavailable YUNIOR-CALLI, [facility] Primary Care Unavailable SELF, SELF Referring Unavailable YUNIOR-CALLI, [facility] Primary Care Unavailable JUAN WILSON Attending Unavailable YUNIOR-CALLI, GRACE Referring Unavailable YUNIOR-CALLI, [facility] Primary Care Unavailable YUNIOR-CALLI, GRACE Referring Unavailable YUNIOR-CALLI, [facility] Primary Care Unavailable YUNIOR-CALLI, GRACE Referring Unavailable YUNIOR-CALLI, [facility] Primary Care Unavailable SELF, SELF Referring Unavailable YUNIOR-CALLI, [facility] Primary Care Unavailable YUNIOR-CALLI, GRACE Attending Unavailable YUNIOR-CALLI, GRACE Referring Unavailable YUNIOR-CALLI, [facility] Primary Care Unavailable YUNIOR-CALLI, GRACE Attending Unavailable YUNIOR-CALLI, GRACE Referring Unavailable YUNIOR-CALLI, [facility] Primary Care Unavailable YUNIOR-CALLI, GRACE Referring Unavailable YUNIOR-CALLI, [facility] Primary Care Unavailable YUNIOR-CALLI, GRACE Referring Unavailable YUNIOR-CALLI, [facility] Primary Care Unavailable YUNIOR-CALLI, [facility] Primary Care Unavailable YVON BOYCE Attending Unavailable ZACH SALES Admitting Unavailable CONSULT, SURGERY - ORTHOPAEDICS Consulting Unavailable YUNIOR-CALLI, [facility] Primary Care Unavailable JUAN CARLOS HAHN Attending Unavailable YUNIOR-CALLI, [facility] Primary Care Unavailable JUAN WILSON Admitting Unavailable JUAN WILSON Attending Unavailable JUAN WILSON Referring Unavailable YUNIOR-CALLI, [facility] Primary Care Unavailable ESNENO SOLORIO Admitting Unavailable ESHAM, NENO Attending Unavailable ESHAM, NENO Referring Unavailable Unavailable Primary Care Provider Unavailabl e ONEAIL, TOÑO Referring Unavailable ONEAIL, TOÑO Referring Unavailable KHAYYAT, SIXTO F Attending Unavailable Dr. Blane Desouzad Attending Provider David, Dr. Santos Primary Care Provider [phone] David, Dr. Santos Attending Provider [phone] David, Dr. Santos Primary Care Provider [phone] David, Dr. Santos Attending Provider [phone] Deo, Dr. May Attending Provider Jin COSTUME SHOP COORDINATOR, COSTUME SHOP COORDINATOR-C Diandra Attending Provider ADRIANNA Starr Attending Provider [phone] YUNIOR-CALLI, GRACE Attending Unavailable YUNIOR-CALLI, GRACE Attending Unavailable YUNIOR-CALLI, GRACE Attending Unavailable YUNIOR-CALLI, GRACE Attending Unavailable YUNIOR-CALLI, GRACE Attending Unavailable YUNIOR-CALLI, GRACE Attending Unavailable MADISON PHILLIP Attending Unavailable Mark SHETTY, PhD, Anshul Melvin Unavailable [phone] Grace Gtz MD Primary Care Provider Marcial Bettencourt DO Unavailable Mark SHETTY, PhD, Anshul Melvin Unavailable Walker SHETTY, Benigno Fernández Unavailable Dr. Danielle Hernandez MD Primary Care Provider Danielle Hernandez MD Attending Provider UnavailDr. Danielle Davila MD Referring Provider [phone] Agueda Elmore Attending Provider Dr. Danielle Hernandez MD Attending Provider [phone] Jin JALLOH-C, Diandra Attending Provider [phone] Danielle Hernandez MD Referring Provider UnavailDeion Jay Attending Provider Dr. Yadira Desouza MD Attending Provider Agueda Elmore Referring Provider Triston SHETTY, Dr. Ahn Attending Provider Kb GARCES, Dr. Pineda Attending Provider David SHETTY, Dr. Santos Primary Care Provider David SHETTY, Danielle Attending Provider Maciel Hernandez MD, Dr. Santos Attending Provider David SHETTY, Dr. Santos Referring Provider [phone] Diandra Clifford Attending Provider Agueda Elmore Attending Provider David SHETTY, Dr. Santos Primary Care Provider David SHETTY, Danielle Attending Provider Maciel Hernandez MD, Danielle Referring Provider Maciel Desouza MD, Dr. May Referring Provider David SHETTY, Dr. Santos Primary Care Provider David SHETTY, Dr. Santos Referring Provider [phone] David SHETTY, Dr. Santos Attending Provider [phone] David SHETTY, Danielle Attending Provider Deion Monique Attending Provider Deo SHETTY, Dr. May Attending Provider David SHETTY, Dr. Santos Primary Care Provider Diandra Clifford Attending Provider David SHETTY, Dr. Santos Primary Care Provider Kb GARCES, Dr. Pineda Attending Provider David SHETTY, Dr. Santos Attending Provider [phone] Danielle Hernandez MD Attending Provider Maciel Hernandez MD, Dr. Santos Referring Provider [phone] Génesis Bond Attending Provider Oleghe OLS, Efewongbe Attending Unavailabl e Oleghe, Efewongbe Primary Care Unavailable Oleghe OLS, Efewongbe Attending Unavailabl e Oleghe, Efewongbe Primary Care Unavailable Oleghe, Efewongbe Primary Care Unavailable Hyacinth Quiles Attending Unavailable Oleghe, Efewongbe Primary Care Unavailable Deo, Yadira Referring Unavailable Deo, Yadira Attending Unavailable Champagne, Agueda Referring Unavailable Oleghe, Efewongbe Primary Care Unavailable Champagne, Agueda Attending Unavailable Oleghe, Efewongbe Primary Care Unavailable Oleghe, Efewongbe Referring Unavailable Champagne, Agueda Attending Unavailable Oleghe, Efewongbe Attending Unavailable Oleghe, Efewongbe Primary Care Unavailable Oleghe OLS, Efewongbe Attending Unavailabl e Oleghe, Efewongbe Primary Care Unavailable Oleghe OLS, Efewongbe Attending Unavailabl e Oleghe, Efewongbe Primary Care Unavailable Diandra Ryan Attending Unavailable Oleghe, Efewongbe Primary Care Unavailable Oleghe, Efewongbe Primary Care Unavailable Oleghe OLS, Efewongbe Attending Unavailabl e Oleghe OLS, Efewongbe Referring Unavailabl e Oleghe OLS, Efewongbe Attending Unavailabl e Oleghe, Efewongbe Primary Care Unavailable Oleghe OLS, Efewongbe Attending Unavailabl e Oleghe, Efewongbe Primary Care Unavailable Oleghe OLS, Efewongbe Attending Unavailabl e Oleghe, Efewongbe Primary Care Unavailable Oleghe OLS, Efewongbe Attending Unavailabl e Oleghe, Efewongbe Primary Care Unavailable Oleghe OLS, Efewongbe Attending Unavailabl e Oleghe, Efewongbe Primary Care Unavailable Oleghe OLS, Efewongbe Referring Unavailabl e Oleghe OLS, Efewongbe Attending Unavailabl e Oleghe, Efewongbe Primary Care Unavailable Oleghe OLS, Efewongbe Attending Unavailabl e Oleghe, Efewongbe Primary Care Unavailable Champagne, Agueda Referring Unavailable Jimy Goldstein Attending Unavailable Oleghe, Efewongbe Primary Care Unavailable Oleghe, Efewongbe Primary Care Unavailable Deo, Yadira Attending Unavailable Champagne, Agueda Attending Unavailable Oleghe, Efewongbe Primary Care Unavailable Oleghe, Efewongbe Referring Unavailable Oleghe, Efewongbe Primary Care Unavailable Hyacinth Quiles Attending Unavailable Oleghe, Efewongbe Primary Care Unavailable Oleghe, Efewongbe Referring Unavailable Yadira Desouza Attending Unavailable Oleghe OLS, Efewongbe Attending Unavailabl e Oleghe, Efewongbe Primary Care Unavailable Agueda Champagne Attending Unavailable Oleghe, Efewongbe Primary Care Unavailable Oleghe, Efewongbe Referring Unavailable Oleghe, Efewongbe Primary Care Unavailable Diandra Abdi NP Attending Unavailable Oleghe, Efewongbe Primary Care Unavailable Diandra Abdi NP Attending Unavailable Oleghe, Efewongbe Primary Care Unavailable Diandra Abdi NP Attending Unavailable Oleghe, Efewongbe Primary Care Unavailable Diandra Abdi NP Attending Unavailable Deion Starr Attending Unavailable Oleghe, Efewongbe Primary Care Unavailable Oleghe, Efewongbe Primary Care Unavailable Diandra Abdi NP Attending Unavailable Oleghe, Efewongbe Primary Care Unavailable Oleghe, Efewongbe Attending Unavailable Oleghe, Efewongbe Primary Care Unavailable Deion Starr Attending Unavailable Oleghe, Efewongbe Primary Care Unavailable Natalie Nelson Attending Unavailable Oleghe, Efewongbe Primary Care Unavailable Oleghe, Efewongbe Attending Unavailable Oleghe, Efewongbe Primary Care Unavailable Deion Starr Attending Unavailable Oleghe, Efewongbe Primary Care Unavailable Diandra Abdi NP Attending Unavailable Oleghe, Efewongbe Primary Care Unavailable Oleghe, Efewongbe Attending Unavailable Agueda Champagne Attending Unavailable Oleghe, Efewongbe Primary Care Unavailable Oleghe, Efewongbe Referring Unavailable Oleghe, Efewongbe Primary Care Unavailable Génesis Bergeron NP Attending Unavailable Oleghe, Efewongbe Referring Unavailable Oleghe, Efewongbe Primary Care Unavailable Oleghe, Efewongbe Attending Unavailable Oleghe, Efewongbe Primary Care Unavailable Oleghe, Efewongbe Attending Unavailable Oleghe, Efewongbe Primary Care Unavailable Tickton COSTUME SHOP COORDINATOR, Diandra Attending Unavailable [place]ton COSTUME SHOP COORDINATOR, Diandra Attending Unavailable Oleghe, Efewongbe Primary Care Unavailable Oleghe, Efewongbe Primary Care Unavailable Jin COSTUME SHOP COORDINATOR, Diandra Attending Unavailable Oleghe OLS, Efewongbe Attending Unavailabl e Oleghe, Efewongbe Primary Care Unavailable Oleghe OLS, Efewongbe Attending Unavailabl e Oleghe, Efewongbe Primary Care Unavailable Oleghe OLS, Efewongbe Attending Unavailabl e Oleghe, Efewongbe Primary Care Unavailable Allergies Allergy Classification Reported Allergen(s) Allergy Type Date of Onset Reaction(s) Facility (20 sources) Penicillins; Translations: [PENICILLINS] Drug allergy (disorder) 1 [facility] Repository (20 sources) Morphine; Translations: [MORPHINE] Drug Allergy 2 Hallucination [facility] (19 sources) Other Propensity to adverse reactions 1 [facility] (4 sources) Penicillins Propensity to adverse reactions to drug 1 [facility] Work Phone: (20 sources) Penicillins Allergy to substance 3 NEEDS FOLLOW-UP, Anaphylaxis [facility] (3 sources) Penicillins Drug Allergy 3 Unknown (1 source) Penicillin; Translations: [PENICILLIN G] Drug Allergy 3 [facility] Repository (1 source) MARIJUANA (CANNABIS SATIVA); Translations: [MARIJUANA (CANNABIS SATIVA)] Propensity to adverse reactions to drug (disorder) 3 [facility] Repository Medications Current Medications Medication Drug Class(es) Dates Sig (Normalized) Sig (Original) acetaminophen 500 mg oral capsule (16 sources) Start: 05-07-2024 take 2 capsules by mouth every eight hours as needed Acetaminophen 500 mg capsule Active 1000 mg PO EVERY 8 HOURS as needed May 07, 2024 1:00am Start: 03-21-2023 take 2 tablets enter al route every eight hours as needed acetaminophen (TYLENOL) 500 mg tablet 2 tablets by ORAL/FEEDING TUBE route every 8 hours as needed for pain. 0 03/21/2023 Active Start: 07-13-2022 End: 07-13-2022 take 1 tablet by mouth every six hours as needed Acetaminophen (TYLENOL) tablet 325 mg Start: 05-17-2020 take 2 tablets by mo uth every four hours Acetaminophen (Tylenol) 325 MG Tablet Active 650 MG PO Q4H May 17, 2020 5:22pm Comment on above: 2 tablets by ORAL/FE EDING TUBE route every 8 hours as needed for pain. acetaminophen 325 mg / HYDROcodone bitartrate 5 mg oral tablet (5 sources) Opioid Agonist Start: take 1 tablet by mouth every eight hours as needed for pain hydroCODone-acetam inophen 5-325 MG tablet Indications: Closed fracture of superior ramus of right pubis, initial encounter Take 1 tablet by mouth every 8 hours as needed for Moderate Pain for up to 1 day. 3 tablet 0 09/14/2022 Active Start: 09-12-2022 End: 09-14-2022 take 1 tablet by mouth every six hours as needed hydroCODone-acetaminophen (NORCO) 5-325 MG per tablet 1 tablet Start: 01-11-2021 Hydrocodone/Ac et 5/325 Mg (Ferriday 5-325 Mg) 1 TAB Tablet Active 1 TAB PO Q6H 12 3 January 11, 2021 7:42am acetaminophen 325 mg / oxyCODONE hydrochloride 5 mg oral tablet (19 sources) Opioid Agonist Start: 08-03-2014 take 1-2 tablets by mouth every four hours as needed for pain oxyCODONE-acetaminophen 5-325 MG Tab Indications: Moderate to Moderately Severe Pain take 1-2 Tabs by mouth every 4 hours as needed. Indications: Moderate to Moderately Severe Pain 60 Tab 0 08/03/2014 Active albuterol 0.83 mg/ml inhalation solution (20 sources) beta2-Adrene rgic Agonist Start: 05-29-2024 take 2.5 mg by inhalation every four hours as needed Albuterol Sulfate 2.5 mg /3 mL (0.083 %) solution for nebulization Active 2.5 mg INHALATION Q4H as needed May 29, 2024 1:00am Start: 05-29-2024 take 2.5 mg by inhal ation twice daily Albuterol Sulfate 2.5 mg /3 mL (0.083 %) solution for nebulization Active 2.5 mg INHALATION TWICE A DAY May 29, 2024 1:00am Start: 03-06-2020 take 1 puff(s) by in halation every four hours Albuterol Sulfate (Albuterol Hfa Inhaler For Take Home Only) 8.5 GM Hfa.Aer.Ad Active 2 PUFF IH Q4H March 06, 2020 3:50pm Start: 11-02-2014 End: 03-06-2020 take 1 puff(s) by inhalation every four hours Albuterol Sulfate (Albuterol Inhaler) 1 PUFF Inhaler Discontinued 2 PUFF IH every 4 hours (Schedule) November 02, 2014 9:38am March 06, 2020 3:50pm End: 07-13-2022 Albuterol 108 (90 Base) MCG/ ACT Aero Soln inhaler 2 puffs as needed 0 07/13/2022 Discontinued Gqilxnsr-Bmdnqyaeu-Avwtcwu H mb (Jose) 7-7-1.5 gram powder in packet (11 sources) Start: 05-29-2024 Mvicnhvy-Kwzaayonm-Dcqhojg H mb (Jose) 7-7-1.5 gram powder in packet Active NMA PO TWICE A DAY May 29, 2024 1:00am Start: 05-29-2024 Arginine-Gluta mine-Calcium Hmb (Jose) 7-7-1.5 gram powder in packet Discontinued NMA PO TWICE A DAY May 29, 2024 1:00am aspirin 81 mg chewable tablet (20 sources) Platelet Aggregation Inhibitor, Nonsteroidal Anti-inflammatory Drug Start: 02-05-2024 take 1 tablet by mouth once daily Aspirin 81 mg tablet,chewable Active 81 mg PO daily February 05, 2024 1:00am Sinus bradycardia Bradycardia, unspecified Start: 09-13-2022 End: 09-14-2022 take 81 mg by mouth once daily 81 mg, Oral, DAILY, [facility] dose on Kenna 09/13/22 at 0900, Until Discontinued Start: 09-30-2015 take 1 tablet by ghassan th once daily Aspirin Enteric Coated (Aspirin Ec) 81 MG Tablet.Dr Active 81 MG PO daily September 30, 2015 9:57am Start: 11-02-2014 End: 11-04-2014 take 81 mg by mouth once daily Aspirin Discontinued 81 MG PO daily November 02, 2014 9:33am November 04, 2014 8:32am Start: 06-19-2014 take 1 tablet by ghassan th once daily aspirin 81 MG Tab Indications: S/P AVR (aortic valve replacement) , History of stroke Take 1 tablet by mouth daily. 0 06/19/2014 Active atorvastatin 20 mg oral tablet (20 sources) HMG-CoA Reductase Inhibitor Start: 05-07-2024 take 1 tablet by mouth once daily Atorvastatin 20 mg tablet Active 20 mg PO daily 90 3 May 07, 2024 1:00am Start: 04-22-2023 End: 05-07-2024 take 1 tablet by mouth at bedtime Atorvastatin 40 mg tablet Discontinued 40 mg PO AT BEDTIME April 22, 2023 1:00am May 07, 2024 6:02pm Start: 06-19-2014 End: 09-14-2022 take 1 tablet by mouth at bedtime Atorvastatin 40 MG tablet Indications: HLD (hyperlipidemia) , History of stroke Take 1 tablet by mouth at bedtime. 0 06/19/2014 Active Comment on above: Take 40 mg by mouth once daily. bisacodyl 10 mg rectal suppository (12 sources) Stimulant Laxative Start: 05-29-2024 Bisacodyl 10 mg suppository Active 10 mg RC daily as needed May 29, 2024 1:00am Start: 04-27-2020 take 2 tablets by mo [facility] once daily Bisacodyl (Dulcolax) 5 MG Tablet Active 10 MG PO daily April 27, 2020 11:23am 60 actuat budesonide 0.16 mg/actuat / formoterol fumarate 0.0045 mg/actuat metered dose inhaler (11 sources) Corticosteroid, beta2-Adrenergic Agonist Start: 04-09-2020 Budesonide/Formoterol 160/4.5 (Symbicort 160/4.5) 1 PUFF Inh Active 2 PUFF IH 2 times Daily(Respiratory) April 09, 2020 10:55am End: 07-13-2022 take 2 puff(s) by inhalation every twelve hours budesonide-formoterol 160-4.5 mcg/puff Aerosol inhaler Inhale 2 puffs every 12 hours. 0 07/13/2022 Discontinued empagliflozin 25 mg oral tablet (11 sources) Sodium-Glucose Cotransporter 2 Inhibitor Start: 02-05-2024 take 1 tablet by mouth once daily in the morning Empagliflozin 25 mg tablet Active 25 mg PO EVERY MORNING February 05, 2024 1:00am Sinus bradycardia Bradycardia, unspecified fexofenadine hydrochloride 180 mg oral tablet (20 sources) Histamine-1 Receptor Antagonist Start: 04-22-2023 End: 02-05-2024 take 1 tablet by mouth once daily as needed Fexofenadine (Boby Hives) 180 mg tablet Active 180 mg PO DAILY as needed February 05, 2024 12:35pm Sinus bradycardia Bradycardia, unspecified Start: 06-19-2014 End: 07-13-2022 take 1 tablet by mouth once daily Fexofenadine Hcl (Allergy Relief) 180 MG Tablet Discontinued 180 MG PO daily August 01, 2016 9:46am March 05, 2020 5:06pm Comment on above: Take 180 mg by mouth once daily. finasteride 5 mg oral tablet (20 sources) 5-alpha Reductase Inhibitor Start: 04-22-2023 take 1 tablet by mouth once daily Finasteride 5 mg tablet Active 5 mg PO DAILY April 22, 2023 1:00am Start: 06-19-2014 End: 09-14-2022 take 1 tablet by mouth once daily finasteride 5 MG Tab Indications: Hyperplasia of prostate with lower urinary tract symptoms (LUTS) Take 1 tablet by mouth daily. 0 06/19/2014 Active Comment on above: Take 5 mg by mouth o nce daily. Fluticasone Propion/Salmeterol (1 source) Corticosteroid, beta2-Adrenergic Agonist Start: take 1 dose by inhalation twice daily Fluticasone Propion/Salmeterol (Wixela 500-50 Inhub) 1 EACH Blst.W.Dev Active 1 PUFF IH 2 times daily May 17, 2020 5:22pm 200 actuat ipratropium bromide 0.017 mg/actuat metered dose inhaler (1 source) Anticholinergic Start: 021 take 1 puff(s) by inhalation every four hours Ipratropium (Atrovent Inhaler) 1 PUFF Inhaler Active 2 PUFF IH every 4 Hours (Respiratory) April 09, 2020 10:55am lactulose 667 mg/ml oral solution (1 source) Osmotic Laxative Start: 023 End: 023 take 15 mL by mouth twice daily Lactulose 10 GM/15ML Solution oral solution Take 15 mL by mouth 2 times daily for 3 days. 90 mL 0 04/28/2022 05/01/2022 Active loperamide hydrochloride 2 mg oral capsule (11 sources) Opioid Agonist Start: 025 take 1 capsule by mouth every six hours as needed Loperamide (Imodium A-D) 2 mg capsule Active 2 mg PO EVERY 6 HOURS as needed May 29, 2024 1:00am Magnesium (10 sources) take 1 tablet by mouth twice daily MAGNESIUM PO Take 1 tablet by mouth 2 times daily. 0 Active take 1 tablet by mouth once francisco y Magnesium 400 MG tablet Take 1 tablet by mouth daily. 0 Active Magnesium Hydroxide (11 sources) Start: 05-29-2024 take 1 mL by mouth once daily as needed Magnesium Hydroxide (Milk Of Magnesia) 400 mg/5 mL suspension Active 5 mL PO daily as needed May 29, 2024 1:00am Start: 05-29-2024 take 1 mL by mouth o nce daily as needed Magnesium Hydroxide (Milk Of Magnesia) 400 mg/5 mL suspension Discontinued 5 mL PO daily as needed May 29, 2024 1:00am Magnesium Hydroxide (Milk Of Magnesia) 400 MG/5 ML Oral.Susp (1 source) Start: 05-17-2020 take 1200 mg by mouth once daily Magnesium Hydroxide (Milk Of Magnesia) 400 MG/5 ML Oral.Susp Active 1200 MG PO daily May 17, 2020 5:22pm metFORMIN hydrochloride 1000 mg oral tablet (20 sources) Biguanide Start: 04-24-2023 take 1 tablet by mouth once daily Metformin 1,000 mg tablet Active 1000 mg PO DAILY April 24, 2023 10:38am Start: 04-22-2023 End: 04-24-2023 take 1 tablet by mouth twice daily Metformin 1,000 mg tablet Discontinued 1000 mg PO TWICE A DAY April 22, 2023 1:00am April 24, 2023 10:40am Start: 05-17-2020 take 1 tablet by ghassan th twice daily Metformin Hcl (Glucophage) 1,000 MG Tablet Active 1000 MG PO 2 times daily May 17, 2020 5:22pm Start: 03-06-2020 End: 05-17-2020 take 1000 mg by mouth twice daily Metformin Hcl Discontinued 1000 MG PO 2 times daily March 06, 2020 3:50pm May 17, 2020 5:28pm Start: 11-02-2014 End: 03-06-2020 take 1 tablet by mouth twice daily Metformin Hcl (Glucophage) 500 MG Tablet Discontinued 500 MG PO 2 times daily November 02, 2014 9:38am March 06, 2020 3:50pm Start: 06-19-2014 take 1 tablet by ghassan th every twelve hours metformin 500 MG Tab Indications: Diabetes mellitus, type 2 Take 1 tablet by mouth every 12 hours. 0 06/19/2014 Active take 1 tablet by ghassan th once daily in the morning metformin 500 MG Tab Indications: Diabetes mellitus, type 2 Take 1 tablet by mouth daily every morning. 0 Active take 2 tablets by mo uth every twenty-four hours metFORMIN 500 MG tablet Take 2 tablets by mouth every evening. 0 Active Comment on above: Take 1,000 mg by ghassan th daily with dinner. mirtazapine 15 mg oral tablet (11 sources) Start: 0 End: 3 take 1 tablet by mouth once daily at bedtime Mirtazapine (Remeron) 15 MG Tablet Active 15 MG PO daily (at Bedtime) March 05, 2020 5:01pm montelukast 10 mg oral tablet (20 sources) Leukotriene Receptor Antagonist Start: 4 take 1 tablet by mouth at bedtime Montelukast (Singulair) 10 mg tablet Active 10 mg PO AT BEDTIME April 22, 2023 1:00am Start: 06-19-2014 End: 09-14-2022 take 1 tablet by mouth once daily in the evening montelukast 10 MG Tab Indications: COPD (chronic obstructive pulmonary disease) , Chronic sinusitis Take 1 tablet by mouth every evening. 0 06/19/2014 Active Comment on above: Take 10 mg by mouth daily at bedtime. Multiple Vitamins-Minerals (EYE HEALTH + LUTEIN PO) (7 sources) take 1 tablet by mouth once daily Multiple Vitamins-Minerals (EYE HEALTH + LUTEIN PO) Take 1 tablet by mouth daily. 0 Active naproxen 375 mg oral tablet (19 sources) Nonsteroidal Anti-inflammatory Drug Start: 5 naproxen 375 MG Tab take 1 tablet by mouth as needed for Headaches. 30 tablet 1 12/09/2014 Active omeprazole 20 mg delayed release oral capsule (11 sources) Proton Pump Inhibitor Start: 1 take 2 capsules by mouth once daily in the morning Omeprazole (Prilosec) [address] Caps[address].Dr Active 40 MG PO daily (Every Morning) May 17, 2020 5:22pm End: 07-13-2022 take 1 capsule by mouth once daily in the morning omeprazole [address] capsule Take 1 capsule by mouth daily every morning. 0 07/13/2022 Discontinued phenazopyridine hydrochloride 100 mg oral tablet (1 source) Start: 01-22-2021 take 1 tablet by mouth three times daily Phenazopyridine (Pyridium) 100 MG Tablet Active 100 MG PO 3 times Daily January 22, 2021 8:43am phenol 14 mg/ml mucosal spray (1 source) Start: 05-17-2020 take 1 spray(s) by mouth three times daily Chloraseptic [place] (Chloraseptic) 177 SPRAY/177 ML Bottle Active 5 SPRAY PO 3 times Daily May 17, 2020 5:22pm polyethylene glycol 3350 60624 mg powder for oral solution (20 sources) Osmotic Laxative Start: 08-12-2014 take 1 dose by mouth once daily as needed polyethylene glycol Pack take 1 Packet by mouth daily as needed. 20 Packet 2 08/12/2014 Active potassium chloride 10 meq extended release oral capsule (20 sources) Start: 11-05-2024 take 2 capsules by mouth once daily in the morning Potassium Chloride 10 mEq capsule, extended release Active 20 meq PO EVERY MORNING November 05, 2024 11:38am 40mEq in AM, 20mEq at HS Start: 05-29-2024 take 2 capsules by m outh twice daily Potassium Chloride 10 mEq capsule, extended release Discontinued 20 meq PO TWICE A DAY May 29, 2024 3:48pm Start: 05-07-2024 End: 11-05-2024 take 4 capsules by mouth once daily in the morning Potassium Chloride 10 mEq capsule, extended release Discontinued 40 meq PO EVERY MORNING May 07, 2024 1:00am November 05, 2024 11:41am Start: 04-24-2023 End: 05-29-2024 take 2 capsules by mouth once daily Potassium Chloride 10 mEq capsule, extended release Discontinued 20 meq PO DAILY April 24, 2023 1:00am May 29, 2024 3:51pm Start: 04-24-2023 take 20 mEq by mouth once francisco y Potassium Chloride Active 20 MEQ PO DAILY April 24, 2023 1:00am Start: 04-08-2023 potassium chlo ride SR (MICRO-K) 10 mEq CR capsule sertraline 50 mg oral tablet (20 sources) Serotonin Reuptake Inhibitor Start: 04-22-2023 take 1 tablet by mouth once daily Sertraline 50 mg tablet Active 50 mg PO DAILY April 22, 2023 1:00am Start: 06-19-2014 End: 07-13-2022 take 1 tablet by mouth once daily Sertraline (Zoloft) 50 MG Tablet Discontinued 50 MG PO daily November 02, 2014 9:33am March 05, 2020 5:06pm Comment on above: Take 50 mg by mouth once daily. spironolactone 25 mg oral tablet (11 sources) Aldosterone Antagonist Start: 02-05-20 24 take 1 tablet by mouth once daily Spironolactone 25 mg tablet Active 25 mg PO daily February 05, 2024 1:00am Sinus bradycardia Bradycardia, unspecified tamsulosin hydrochloride 0.4 mg oral capsule (1 source) alpha-Adrenergic Yolis Start: 01-23-20 take 1 capsule by mouth once daily Tamsulosin (Flomax) 0.4 MG Capsule Active 0.4 MG PO daily January 22, 2021 8:43am traMADol hydrochloride 50 mg oral tablet (20 sources) Opioid Agonist Start: 04-26-19 End: 05-01-19 23 take 1 tablet by mouth every six hours as needed traMADol 50 MG tablet 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 12 tablet 0 04/26/2022 05/01/2022 Active Start: 11-06-2014 take 1 tablet by ghassan every four hours as needed traMADol 50 MG Tab take 1 tablet by mouth every 4 hours as needed. 20 tablet 0 11/06/2014 Active Vit C/E/Zn/Coppr/Lutein/Zeax an (Preservision Areds 2 Softgel) 1 EACH Capsule (1 source) Start: 03-06-2020 Vit C/E/Zn/Coppr/Lutein/Zeax an (Preservision Areds 2 Softgel) 1 EACH Capsule Active 1 CAP PO 2 times daily March 06, 2020 3:50pm Completed/Discontinued Medications Medication Drug Class(es) Dates Sig (Normalized) Sig (Original) acyclovir 800 mg oral tablet (1 source) Herpesvirus Nucleoside Analog DNA Polymerase Inhibitor, Herpes Simplex Virus Nucleoside Analog DNA Polymerase Inhibitor, Herpes Zoster Virus Nucleoside Analog DNA Polymerase Inhibitor Start: 11-02-2014 End: 09-30-2015 take 1 tablet by mouth five times daily Acyclovir (Zovirax) 800 MG Tablet Discontinued 800 MG PO 5 times Daily November 02, 2014 9:38am September 30, 2015 10:03am albuterol 0.833 mg/ml / ipratropium bromide 0.167 mg/ml inhalation solution (10 sources) Anticholinergic, beta2-Adrenergic Agonist Start: 06-19-2014 End: 07-13-2022 take 3 mL by inhalation every six hours as needed for chronic obstructive pulmonary disease and chronic obstructive pulmonary disease ipratropium-albute rol 0.5-2.5 (3) MG/3ML nebulizer solution Indications: COPD (chronic obstructive pulmonary disease) Take 3 mL by nebulization every 6 hours as needed. 0 06/19/2014 07/13/2022 Discontinued amLODIPine 10 mg oral tablet (13 sources) Dihydropyridine Calcium Channel Yolis Start: 04-09-2020 End: 04-09-2020 take 5 mg by mouth once daily Amlodipine Besylate Discontinued 5 MG PO daily 0 April 09, 2020 11:00am April 09, 2020 12:22pm Start: 09-30-2015 End: 04-09-2020 take 10 mg by mouth once daily Amlodipine Besylate Dis continued 10 MG PO daily March 06, 2020 3:50pm April 09, 2020 11:00am Start: 06-19-2014 End: 07-13-2022 take 2 tablets by mouth once daily at breakfast amLODIPine 5 MG Tab Indications: HTN (hypertension) Take 2 tablets by mouth daily with breakfast. 0 06/19/2014 07/13/2022 Discontinued calcium chloride 0.0014 meq/ml / potassium chloride 0.004 meq/ml / sodium chloride 0.103 meq/ml / sodium lactate 0.028 meq/ml injectable solution (2 sources) Start: 04-26-2022 End: 04-27-2022 Lactated ringers IV solution cholecalciferol 0.01 mg chewable tablet (20 sources) Vitamin D Start: 04-22-2023 End: 02-05-2024 take 1 tablet by mouth once daily Cholecalciferol (Vitamin D3) 10 mcg (400 unit) tablet,chewable Discontinued 10 ug PO DAILY April 22, 2023 1:00am February 05, 2024 12:37pm Start: 04-09-2020 Cholecalcifero l (D-3) (Vitamin D) 1,000 UNIT Tablet Active 1000 UNIT PO daily April 09, 2020 10:55am Start: 06-19-2014 End: 06-26-2022 take 1 capsule by mouth once daily at breakfast Cholecalciferol (VITAMIN D3) 400 UNITS Cap Indications: Vitamin D deficiency Take 1 capsule by mouth daily with breakfast. 30 Cap 0 06/19/2014 06/26/2022 Discontinued take 400 [IU] by ghassan th once daily Cholecalciferol, Vitamin D3, (VITAMIN D-3) 10 mcg (400 unit) chew Take 400 Units by mouth once daily. Chewable 0 Active take 1 tablet by ghassan th once daily CHOLECALCIFEROL PO Take 1 tablet by mouth daily. 0 Active Comment on above: Take 400 Units by mo uth once daily. Chewable Cholecalciferol (Vitamin D3) (Vitamin D) 1,000 UNIT Capsule (1 source) Start: 015 End: 020 take 1 capsule by mouth once daily Cholecalciferol (Vitamin D3) (Vitamin D) 1,000 UNIT Capsule Discontinued 1000 UNIT PO daily November 02, 2014 9:38am March 05, 2020 5:06pm ciprofloxacin 500 mg oral tablet (4 sources) Quinolone Antimicrobial Start: 023 End: 023 Ciprofloxacin (CIPRO) tablet 500 mg Start: 07-31-2022 End: 08-01-2022 Ciprofloxacin (CIPRO) tablet 500 mg Start: 04-05-2022 End: 04-05-2022 take 1 tablet by mouth once Ciprofloxacin 500 MG table t Take 1 tablet by mouth once for 1 dose. 1 tablet 0 04/05/2022 04/05/2022 Active Start: 01-22-2021 Ciprofloxacin (Cipro) 500 MG Tablet Active 500 MG PO 2 times daily January 22, 2021 8:48am take one pill this afternoon, then twice a day to completion clindamycin 300 mg oral capsule (1 source) Lincosamide Antibacterial Start: 08-21-2016 End: 03-05-2020 take 1 capsule by mouth three times daily Clindamycin Hcl (Cleocin Hcl) 300 MG Capsule Discontinued 300 MG PO 3 times Daily August 21, 2016 9:34pm March 05, 2020 5:06pm clopidogrel 75 mg oral tablet (11 sources) [id number] Platelet Inhibitor Start: 11-04-2014 End: 07-13-2022 take 1 tablet by mouth once daily Clopidogrel (Plavix) 75 MG Tablet Discontinued 75 MG PO daily November 04, 2014 8:20am March 05, 2020 5:07pm Dextrose 50% injection 25 g (1 source) Start: 09-12-2022 End: 09-14-2022 Dextrose 50% injection 25 g diphenhydrAMINE hydrochloride 25 mg oral tablet (10 sources) Histamine-1 Receptor Antagonist End: 07-13-2022 take 1 tablet by mouth every six hours as needed diphenhydrAMINE 25 MG Tab tablet Take 1 tablet by mouth every 6 hours as needed. 0 07/13/2022 Discontinued docusate sodium 100 mg oral capsule (20 sources) Start: 04-27-2020 take 1 capsule by mouth twice daily Docusate (Colace) 100 MG Capsule Active 100 MG PO 2 times daily April 27, 2020 11:23am Start: 11-02-2014 End: 03-05-2020 take 1 capsule by mouth twice daily Docusate Sodium (Dulcoease) 100 MG Capsule Discontinued 100 MG PO 2 times daily November 02, 2014 9:38am March 05, 2020 5:06pm Start: 08-03-2014 End: 09-14-2022 take 1 capsule by mouth every twelve hours docusate 100 MG Cap Indications: Constipation take 1 Cap by mouth every 12 hours. 60 Cap 0 08/03/2014 Active 0.4 ml enoxaparin sodium 100 mg/ml prefilled syringe (3 sources) Low Molecular Weight Heparin Start: 09-13-2022 End: 09-14-2022 Enoxaparin Sodium (LOVENOX) injection 40 mg Start: 04-27-2020 End: 05-17-2020 Enoxaparin (Lovenox) 40 MG/0 .4 ML Syringe Active 40 MG SQ daily (at Bedtime) May 17, 2020 5:29pm FLUoxetine 20 mg oral capsule (20 sources) Serotonin Reuptake Inhibitor Start: 09-13-2022 End: 02-05-2024 take 1 capsule by mouth once daily Fluoxetine (Prozac) 20 mg capsule Discontinued 20 mg PO DAILY April 22, 2023 1:00am February 05, 2024 12:37pm take 2 capsules by mouth once da stefany FLUoxetine 10 MG capsule Take 2 capsules by mouth daily. 0 Active Comment on above: Take 20 mg by mouth once daily. fluticasone propionate 0.05 mg/actuat metered dose nasal spray (10 sources) Corticosteroid Start: 06-20-19 End: 07-14-19 fluticasone 50 MCG/ACT Suspension Indications: Chronic sinusitis 4 sprays by Nasal route at bedtime. Reported on 07/03/2016 0 06/19/2014 07/13/2022 Discontinued furosemide 20 mg oral tablet (20 sources) Loop Diuretic Start: 04-22-19 End: 02-05-20 take 1 tablet by mouth once daily Furosemide 20 mg tablet Discontinued 20 mg PO DAILY April 22, 2023 1:00am February 05, 2024 12:38pm Start: 06-19-2014 End: 07-13-2022 take 1 tablet by mouth once daily at breakfast furOSEmide 20 MG tablet Indications: Dependent edema Take 1 tablet by mouth daily with breakfast. 0 06/19/2014 07/13/2022 Discontinued take 1 tablet by ghassan th twice daily furosemide (LASIX) 20 mg tablet Take 20 mg by mouth two times a day. 0 Active Comment on above: Take 20 mg by mouth two times a day. glucagon (rdna) 1 mg injection (2 sources) Antihypoglycemic Agent Start: 09-12-2022 End: 09-14-2022 glucagon (GLUCAGEN) injection 1 mg Start: 05-17-2020 Glucagon,Human Recombinant (Glucagon Emergency Kit) 1 MG Vial Active 1 MG IM as Needed May 17, 2020 5:22pm glucose (GLUTOSE) 40 % oral gel 1 Tube (1 source) Start: 09-12-2022 End: 09-14-2022 glucose (GLUTOSE) 40 % oral gel 1 Tube 12 hr guaiFENesin 600 mg extended release oral tablet (10 sources) End: 07-13-2022 take 1 tablet by mouth twice daily guaiFENesin 600 MG Tab SR 12 HR tablet SR Take 1 tablet by mouth 2 times daily. 0 07/13/2022 Discontinued 1 ml hydrALAZINE hydrochloride 20 mg/ml injection (1 source) Arteriolar Vasodilator Start: 09-12-2022 End: 09-14-2022 take 5 mg intravenously every six hours as needed hydrALAZINE (APRESOLINE) injection 5 mg 3 ml insulin lispro 100 unt/ml cartridge (1 source) Insulin Analog Start: 09-12-2022 End: 09-14-2022 insulin lispro (HumaLOG) injection levETIRAcetam 500 mg oral tablet (2 sources) Start: 03-21-2023 End: 04-30-2023 take 1 tablet by mouth twice daily levETIRAcetam (KEPPRA) 500 mg tablet Take 1 tablet by mouth two times a day for 4 days. 0 03/21/2023 04/30/2023 Discontinued Comment on above: Take 1 tablet by ghassan th two times a day for 4 days. lidocaine hydrochloride 0.02 mg/mg topical gel (4 sources) Antiarrhythmic, Amide Local Anesthetic Start: 11-01-2022 End: 11-02-2022 Lidocaine HCl Urethral/Mucosal 2 % jelly prefilled syringe (Urojet) PRSY 6 mL Start: 07-31-2022 End: 08-01-2022 Lidocaine HCl Urethral/Mucos al 2 % jelly prefilled syringe (Urojet) PRSY 6 mL Start: 04-05-2022 End: 04-06-2022 Lidocaine HCl Urethral/Mucos al 2 % jelly prefilled syringe (Urojet) PRSY 6 mL Start: 05-04-2021 Lidocaine Patc h (Lidoderm 5% Patch) 1 EACH Adh..Patch Active 1 EACH TP 2 times daily 6 3 May 04, 2021 7:15pm losartan potassium 25 mg oral tablet (20 sources) Angiotensin 2 Receptor Yolis Start: 04-08-2023 losartan (COZAAR) 100 mg tablet Start: 03-19-2020 End: 02-05-2024 take 1 tablet by mouth once daily Losartan 25 mg tablet Discontinued 25 mg PO DAILY April 22, 2023 1:00am February 05, 2024 12:38pm Start: 06-19-2014 End: 06-26-2022 take 1 tablet by mouth once daily Losartan Potassium (Cozaar) 100 MG Tablet Discontinued 100 MG PO daily November 02, 2014 9:33am March 19, 2020 11:41am Comment on above: Take 25 mg by mouth once daily. magnesium oxide 400 mg oral tablet (20 sources) Start: 04-22-2023 End: 02-05-2024 take 1 tablet by mouth once daily Magnesium Oxide 400 mg (241.3 mg magnesium) tablet Discontinued 400 mg PO DAILY April 22, 2023 1:00am February 05, 2024 12:38pm Start: 04-27-2020 take 1 tablet by ghassan th twice daily Magnesium Oxide (Mag-Ox) 400 MG Tablet Active 400 MG PO 2 times daily April 27, 2020 11:23am Comment on above: Take 400 mg by mouth once daily. meloxicam 15 mg oral tablet (10 sources) Nonsteroidal Anti-inflammatory Drug Start: End: take 15 mg by mouth once daily Meloxicam Discontinued 15 MG PO daily September 30, 2015 9:57am March 05, 2020 5:06pm metoprolol tartrate 50 mg oral tablet (20 sources) beta-Adrenergic Yolis Start: End: Metoprolol Tartrate 50 mg tablet Discontinued 25 mg PO TWICE A DAY May 02, 2023 3:31pm May 02, 2023 3:32pm Start: 05-02-2023 End: 05-02-2023 take 25 mg by mouth twice daily Metoprolol Tartrate Di scontinued 25 MG PO TWICE A DAY May 02, 2023 3:31pm May 02, 2023 3:32pm Start: 05-02-2023 take 1 tablet by ghassan twice daily Metoprolol Tartrate 25 mg tablet Active 25 mg PO TWICE A DAY 60 May 02, 2023 1:00am Start: 04-22-2023 End: 05-02-2023 take 1 tablet by mouth twice daily Metoprolol Tartrate 50 mg tablet Discontinued 50 mg PO TWICE A DAY April 22, 2023 1:00am May 02, 2023 3:31pm Start: 04-09-2020 End: 05-24-2020 take 2 tablets by mouth twice daily Metoprolol (Lopressor) 25 MG Tablet Active 50 MG PO 2 times daily 60 May 24, 2020 8:11am Start: 03-19-2020 End: 04-09-2020 take 1 tablet by mouth twice daily Metoprolol (Lopressor) 25 MG Tablet Discontinued 25 MG PO 2 times daily 60 March 19, 2020 11:40am April 09, 2020 12:21pm Start: 11-02-2014 End: 03-19-2020 take 1 tablet by mouth twice daily Metoprolol Tartrate (Lopressor) 50 MG Tablet Discontinued 50 MG PO 2 times daily November 02, 2014 9:38am March 19, 2020 11:41am Start: 06-19-2014 End: 07-13-2022 take 1 tablet by mouth every twelve hours metoprolol 50 MG tab regular release Indications: SVT (supraventricular tachycardia) , HTN (hypertension) Take 1 tablet by mouth every 12 hours. 0 06/19/2014 07/13/2022 Discontinued Comment on above: Take 50 mg by mouth two times a day. Multiple Vitamins-Minerals (EYE-ASAF PLUS LUTEIN) Cap (10 sources) Start: 06-19-2014 End: 07-13-2022 take 1 capsule by mouth at bedtime Multiple Vitamins-Minerals (EYE-ASAF PLUS LUTEIN) Cap Indications: Bladder cancer , Neuropathy, peripheral Take 1 capsule by mouth at bedtime. 0 06/19/2014 07/13/2022 Discontinued Start: 06-19-2014 take 1 capsule by mo uth at bedtime Multiple Vitamins-Minerals (EYE-ASAF PLUS LUTEIN) Cap Indications: Bladder cancer , Neuropathy, peripheral Take 1 capsule by mouth at bedtime. 0 06/19/2014 Active Start: 06-19-2014 take 1 capsule by mo uth at bedtime Multiple Vitamins-Minerals (EYE-ASAF PLUS LUTEIN) Cap Indications: Bladder cancer , Neuropathy, peripheral take 1 Cap by mouth at bedtime. 0 06/19/2014 Active 1 ml naloxone hydrochloride 0.4 mg/ml injection (2 sources) Opioid Antagonist Start: 09-12-2022 End: 09-14-2022 Naloxone (NARCAN) injection 0.4 mg Start: 04-26-2022 End: 04-27-2022 Naloxone (NARCAN) injection 0.4 mg Nutritional Supplements (BLADDER 2.2) Tab (10 sources) Start: 06-19-2014 End: 07-13-2022 take 1 tablet by mouth every twelve hours Nutritional Supplements (BLADDER 2.2) Tab Indications: Bladder cancer Take 1 tablet by mouth every 12 hours. Reported on 07/03/2016 0 06/19/2014 07/13/2022 Discontinued Start: 06-19-2014 take 1 tablet by ghassan th every twelve hours Nutritional Supplements (BLADDER 2.2) Tab Indications: Bladder cancer Take 1 tablet by mouth every 12 hours. Reported on 07/03/2016 0 06/19/2014 Active Start: 06-19-2014 take 1 tablet by ghassan th every twelve hours Nutritional Supplements (BLADDER 2.2) Tab Indications: Bladder cancer take 1 tablet by mouth every 12 hours.. Reported on 07/03/2016 0 06/19/2014 Active Omeprazole (Prilosec) 40 MG Capsule. (1 source) Start: 03-06-2020 End: 05-17-2020 take 1 capsule by mouth once daily Omeprazole (Prilosec) 40 MG Capsule.Dr Discontinued 40 MG PO daily March 06, 2020 3:50pm May 17, 2020 5:28pm 2 ml ondansetron 2 mg/ml injection (20 sources) Serotonin-3 Receptor Antagonist Start: 04-26-2022 End: 04-27-2022 take 4 mg intravenously every four hours as needed Ondansetron 4mg/2ml (ZOFRAN) injection 4 mg Start: 08-13-2018 take 1 tablet by ghassan th every four hours as needed ondansetron 4 MG Tab Dispersible tablet Take 1 tablet by mouth every 4 hours as needed for Nausea. 2 tablet 0 08/13/2018 Active Ondansetron 4mg/2ml (ZOFRAN) injection 4 mg (1 source) Start: 09-12-2022 End: 09-14-2022 take 4 mg intravenously every six hours as needed Ondansetron 4mg/2ml (ZOFRAN) injection 4 mg 24 hr oxybutynin chloride 5 mg extended release oral tablet (20 sources) Cholinergic Muscarinic Antagonist Start: 04-22-2023 End: 03-06-2024 take 1 tablet by mouth once daily Oxybutynin Chloride 5 mg tablet extended release 24hr Discontinued 5 mg PO DAILY April 22, 2023 1:00am March 06, 2024 12:33pm Start: 08-13-2018 End: 09-14-2022 take 1 tablet by mouth three times daily as needed for muscle spasms oxybutynin 5 MG Tab Take 1 tablet by mouth 3 times daily as needed for Bladder Spasm. 30 tablet 0 08/13/2018 Active Comment on above: Take 5 mg by mouth o nce daily. oxyCODONE hydrochloride 5 mg oral tablet (20 sources) Opioid Agonist Start: 5 End: 5 take 2.5 mg by mouth once daily Oxycodone 5 mg tablet Discontinued 2.5 mg PO DAILY 30 30 0 May 05, 2024 June 03, 2024 12:00am June 04, 2024 12:13am Chronic pain Other chronic pain pain predniSONE 5 mg oral tablet (1 source) Start: 0 End: 0 Prednisone Discontinued 0 MG PO as Directed March 06, 2020 3:50pm March 19, 2020 11:49am regadenoson (LEXISCAN) injection 0.4 mg (1 source) Start: 3 End: 3 regadenoson (LEXISCAN) injection 0.4 mg rivaroxaban 20 mg oral tablet (1 source) Factor Xa Inhibitor Start: 0 End: 1 Rivaroxaban (Xarelto) 20 MG Tablet Discontinued 20 MG PO 1700 30 March 19, 2020 11:40am April 09, 2020 10:56am 20 ml sodium chloride 9 mg/ml injection (4 sources) Start: 3 End: 3 Sodium chloride (PF) 0.9 % injection 5 mL Start: 07-13-2022 End: 07-13-2022 Sodium chloride 0.9% IV solu tion Start: 04-28-2022 End: 04-28-2022 Sodium chloride 0.9% IV solu tion 1,000 mL Start: 04-26-2022 End: 04-27-2022 Sodium chloride 0.9 % irriga tion sulfamethoxazole 800 mg / trimethoprim 160 mg oral tablet (1 source) Dihydrofolate Reductase Inhibitor Antibacterial, Sulfonamide Antimicrobial Start: 12-29-2017 End: 03-05-2020 take 1 tablet by mouth once Sulfamethoxazole/Trimeth Ds (Bactrim Ds) 1 EACH Tablet Discontinued 1 EACH PO 2 times daily 14 December 29, 2017 11:50am March 05, 2020 5:06pm Technetium tc 99m sestamibi (SESTAMIBI) 7.2-38.5 millicurie (1 source) Start: 06-14-2022 End: 06-14-2022 Technetium tc 99m sestamibi (SESTAMIBI) 7.2-38.5 millicurie Technetium tc 99m sestamibi (SESTAMIBI) 7.2-49.5 millicurie (1 source) Start: 06-14-2022 End: 06-14-2022 Technetium tc 99m sestamibi (SESTAMIBI) 7.2-49.5 millicurie tiotropium 0.018 mg inhalation powder (10 sources) Anticholinergic Start: 06-19-2014 End: 07-13-2022 take 1 capsule by inhalation at bedtime tiotropium 18 MCG inhalation capsule Indications: COPD (chronic obstructive pulmonary disease) Inhale 1 capsule at bedtime. Reported on 07/03/2016 0 06/19/2014 07/13/2022 Discontinued topiramate 25 mg oral tablet (20 sources) Start: 09-12-2022 End: 09-14-2022 take 50 mg by mouth once daily at bedtime 50 mg, Oral, DAILY AT BEDTIME, First dose on Sat09/12/22 at 2100, Until Discontinued Do not split, break, crush, or open doses of this medication. Contact pharmacy if altered dose or route needed. Start: 11-02-2014 End: 03-06-2020 take 1 tablet by mouth at bedtime topiramate (TOPAMAX) 50 MG Tab Indications: Migraine aura without headache (migraine equivalents) take 1 tablet by mouth at bedtime. 90 tablet 2 11/23/2014 Active Vit C/Vit E/Lutein/Min/[place]-3 (Ocuvite Softgel) 1 EACH Capsule (1 source) Start: 11-02-2014 End: 03-06-2020 Vit C/Vit E/Lutein/Min/[place]-3 (Ocuvite Softgel) 1 EACH Capsule Discontinued 1 CAP PO daily 0 November 02, 2014 9:38am March 06, 2020 3:54pm warfarin sodium 4 mg oral tablet (20 sources) Vitamin K Antagonist Start: 09-14-2022 End: 09-14-2022 warfarin (COUMADIN) tablet 4 mg Start: 05-24-2020 take 4 mg by mouth once daily Warfarin Sodium Active 4 MG PO daily May 24, 2020 8:12am warfarin 4 MG ta blet Take by mouth As directed. *Take 2 mg (1/2 tablet) by mouth every Saturday and 4mg (1 tablet) by mouth all other days 0 Active Warfarin Placeholder (1 source) Start: 09-14-2022 End: 09-14-2022 Warfarin Placeholder water 1000 mg/ml irrigation solution (1 source) Start: 04-26-2022 End: 04-27-2022 Sterile water irrigation Problems Active Problems Problem Classification Problem Date Documented Da te Episodic/Chronic Acute and unspecified renal failure (1 source) Injury of kidney; Translations: [Acute kidney failure, unspecified] Episodic Acute cerebrovascular disease (20 sources) Cerebrovascular accident; Translations: [Cerebral infarction, unspecified] Onset: 2 01-23-2022 Chronic Adjustment disorders (1 source) Adjustment disorder with mixed anxiety and depressed mood; Translations: [Adjustment disorder with mixed anxiety and depressed mood] Chronic Anxiety disorders (19 sources) Mixed anxiety and depressive disorder; Translations: [Other specified anxiety disorders] 06-19-2014 Chronic Aspiration pneumonitis; food/vomitus (1 source) Aspiration pneumonia; Translations: [Pneumonitis due to inhalation of food and vomit] Episodic Blindness and vision defects (1 source) Blurring of visual image; Translations: [Other visual disturbances] Episodic Calculus of urinary tract (1 source) Kidney stone; Translations: [Calculus of kidney] Episodic Cancer of bladder (20 sources) Malignant tumor of urinary bladder; Translations: [Malignant neoplasm of bladder, unspecified] Onset: 1 Resolved: 9 05-28-2021 Chronic Cardiac dysrhythmias (20 sources) Atrial fibrillation; Translations: [Unspecified atrial fibrillation] Onset: 1 09-28-2010 Chronic Chronic kidney disease (2 sources) Chronic kidney disease; Translations: [Chronic kidney disease, stage 3a] Onset: 3 Chronic obstructive pulmonary disease and bronchiectasis (20 sources) Chronic obstructive lung disease; Translations: [Chronic obstructive pulmonary disease, unspecified] Onset: 1 07-05-2010 Chronic Chronic ulcer of skin (1 source) Non-pressure chronic ulcer of unspecified part of right lower leg with unspecified severity; Translations: [Non-pressure chronic ulcer of unspecified part of right lower leg with unspecified severity] Onset: 5 Chronic Coagulation and hemorrhagic disorders (20 sources) Thrombocytopenic disorder; Translations: [Thrombocytopenia, unspecified] Onset: 3 04-24-2023 Chronic Congestive heart failure; nonhypertensive (20 sources) Heart failure with normal ejection fraction; Translations: [Unspecified diastolic (congestive) heart failure] 04-22-2023 Chronic Coronary atherosclerosis and other heart disease (20 sources) Coronary arteriosclerosis; Translations: [Atherosclerotic heart disease of tribe coronary artery without angina pectoris] Onset: 3 05-18-2022 Chronic Delirium, dementia, and amnestic and other cognitive disorders (20 sources) Dementia; Translations: [Unspecified dementia without behavioral disturbance] Onset: 5 05-09-2023 Chronic Diabetes mellitus with complications (5 sources) Other specified diabetes mellitus with diabetic chronic kidney disease; Translations: [Type 2 diabetes mellitus with mild nonproliferative diabetic retinopathy without macular edema, unspecified eye] Onset: 3 Chronic Diabetes mellitus without complication (20 sources) Diabetes mellitus; Translations: [Type 2 diabetes mellitus without complications] Onset: 1 06-17-2014 Chronic Disorders of lipid metabolism (20 sources) Hyperlipidemia; Translations: [Hyperlipidemia, unspecified] Onset: 1 06-17-2014 Chronic E Codes: Fall (20 sources) Fall; Translations: [Unspecified fall, initial encounter] Onset: 3 09-14-2022 Episodic Esophageal disorders (1 source) Gastroesophageal reflux disease; Translations: [Gastro-esophageal reflux disease without esophagitis] Chronic Essential hypertension (20 sources) Malignant hypertension; Translations: [Essential (primary) hypertension] Onset: 1 06-17-2014 Chronic Headache; including migraine (19 sources) Migraine with aura; Translations: [Migraine with aura, not intractable, without status migrainosus] 06-17-2014 Chronic Headache; including migraine (3 sources) Headache; Translations: [Headache] Episodic Heart valve disorders (20 sources) History of aortic valve replacement; Translations: [Presence of xenogenic heart valve] Onset: 1 Resolved: 5 06-26-2022 Chronic Comment on above: 23mm Jay-Edwa rds Perimount Magna valve Hyperplasia of prostate (20 sources) Benign prostatic hyperplasia; Translations: [Benign prostatic hyperplasia without lower urinary tract symptoms] 06-19-2014 Chronic Hypertension with complications and secondary hypertension (3 sources) Hypertensive urgency ; Translations: [Hypertensive urgency] Onset: 3 Chronic Mood disorders (2 sources) Major depressive disorder, recurrent, moderate; Translations: [Major depressive disorder, recurrent, moderate] Onset: 3 Chronic Nutritional deficiencies (19 sources) Vitamin D deficiency; Translations: [Vitamin D deficiency, unspecified] 06-19-2014 Chronic Osteoarthritis (19 sources) Osteoarthritis; Translations: [Unspecified osteoarthritis, unspecified site] 06-19-2014 Chronic Other circulatory disease (20 sources) History of cerebrovascular accident; Translations: [Personal history of transient ischemic attack (TIA), and cerebral infarction without residual deficits] 06-17-2014 Episodic Other connective tissue disease (1 source) Foreign body; Translations: [Residual foreign body in soft tissue] Episodic Other diseases of kidney and ureters (1 source) Hydronephrosis; Translations: [Hydronephrosis with renal and ureteral calculous obstruction] Episodic Other diseases of kidney and ureters (1 source) Renal impairment; Translations: [Disorder of kidney and ureter, unspecified] Episodic Other ear and sense organ disorders (19 sources) Bilateral sensory hearing loss; Translations: [Sensorineural hearing loss, bilateral] 06-17-2014 Chronic Other fractures (1 source) Fracture of superior pubic ramus; Translations: [Fracture of superior rim of right pubis, initial encounter for closed fracture] 09-12-2022 Episodic Other fractures (1 source) Closed fracture of right acetabulum; Translations: [Unspecified fracture of right acetabulum, initial encounter for closed fracture] 09-12-2022 Episodic Other fractures (1 source) Fracture of multiple pubic rami; Translations: [Other specified fracture of right pubis, subsequent encounter for fracture with routine healing] 10-03-2022 Episodic Other gastrointestinal disorders (20 sources) Constipation; Translations: [Constipation, unspecified] 06-19-2014 Episodic Other hematologic conditions (1 source) Raised cardiac enzyme or marker; Translations: [Other specified abnormalities of plasma proteins] Episodic Other injuries and conditions due to external causes (4 sources) Other specified injuries of thorax, initial encounter; Translations: [Contusion of rib on right side] 05-17-2023 Episodic Other liver diseases (2 sources) Unspecified cirrhosis of liver; Translations: [Unspecified cirrhosis of liver] Onset: 3 Chronic Other lower respiratory disease (1 source) Dyspnea; Translations: [Shortness of breath] Episodic Other lower respiratory disease (1 source) Hemoptysis; Translations: [Hemoptysis] Episodic Other lower respiratory disease (1 source) Pleuritic pain; Translations: [Pleurodynia] 11-06-2022 Episodic Other lower respiratory disease (1 source) Nodule of lung; Translations: [Solitary pulmonary nodule] 12-13-2022 Episodic Other lower respiratory disease (2 sources) Solitary pulmonary nodule; Translations: [Solitary pulmonary nodule] Onset: 3 Episodic Other male genital disorders (19 sources) Male erectile dysfunction, unspecified; Translations: [Impotence of organic origin] Onset: 6 03-15-2016 Chronic Other nervous system disorders (1 source) Metabolic encephalopathy; Translations: [Metabolic encephalopathy] Chronic Other nervous system disorders (19 sources) Peripheral nerve disease ; Translations: [Polyneuropathy, unspecified] 05-28-2021 Chronic Other nervous system disorders (11 sources) Chronic pain; Translations: [Other chronic pain] 04-07-2024 Chronic Other non-traumatic joint disorders (2 sources) Pain in right hip joint; Translations: [Pain in right hip] 10-02-2022 Episodic Other nutritional; endocrine; and metabolic disorders (1 source) Hypomagnesemia; Translations: [Hypomagnesemia] Chronic Other upper respiratory infections (19 sources) Chronic sinusitis; Translations: [Chronic sinusitis, unspecified] 06-19-2014 Chronic Peripheral and visceral atherosclerosis (20 sources) Atherosclerosis of aorta; Translations: [Atherosclerosis of tribe arteries of left leg with ulceration of unspecified site] Onset: 3 Chronic Pleurisy; pneumothorax; pulmonary collapse (1 source) Loculated pleural effusion; Translations: [Pleural effusion, not elsewhere classified] Episodic Pulmonary heart disease (1 source) Pulmonary embolism; Translations: [Other pulmonary embolism without acute cor pulmonale] Episodic Residual codes; unclassified (19 sources) Obstructive sleep apnea syndrome; Translations: [Obstructive sleep apnea (adult) (pediatric)] Onset: 1 06-17-2014 Chronic Residual codes; unclassified (2 sources) Patient encounter status; Translations: [Encounter for prophylactic measures, unspecified] Episodic Residual codes; unclassified (19 sources) Dependent edema; Translations: [Edema, unspecified] 06-19-2014 Episodic Screening and history of mental health and substance abuse codes (20 sources) H/O: dementia; Translations: [Personal history of other mental and behavioral disorders] 05-09-2023 Episodic Septicemia (except in labor) (1 source) Sepsis; Translations: [Sepsis, unspecified organism] Episodic Superficial injury; contusion (20 sources) Contusion of chest; Translations: [Contusion of unspecified front wall of thorax, initial encounter] 05-09-2023 Episodic Unclassified (2 sources) other Onset: 3 09-14-2022 Unclassified (1 source) Abdominal aortic aneurysm, without rupture, unspecified; Translations: [Abdominal aortic aneurysm, without rupture, unspecified] Onset: 3 Unclassified (1 source) SDH (subdural hematoma) (HCC); Translations: [SDH (subdural hematoma) (HCC)] Onset: 3 Unclassified (1 source) Vascular dementia, mild, without behavioral disturbance, psychotic disturbance, mood disturbance, and anxiety; Translations: [Vascular dementia, mild, without behavioral disturbance, psychotic disturbance, mood disturbance, and anxiety] Onset: 3 Urinary tract infections (1 source) Urinary tract infection, site not specified; Translations: [Urinary tract infection, site not specified] Onset: 5 Episodic Viral infection (3 sources) COVID-19; Translations: [Pneumonia due to COVID-19 virus] Episodic Past or Other Problems Problem Classification Problem Date Documented Da te Episodic/Chronic Cancer of bladder (20 sources) H/O: malignant neoplasm; Translations: [Personal history of malignant neoplasm of bladder] Onset: 03-29-2016 03-29-2016 Episodic Cardiac dysrhythmias (20 sources) Palpitations; Translations: [Palpitations] Onset: 02-05-2024 05-02-2023 Episodic Fluid and electrolyte disorders (3 sources) Dehydration; Translations: [Dehydration] Onset: 06-03-2024 Episodic Genitourinary symptoms and ill-defined conditions (3 sources) Blood in urine; Translations: [Hematuria, unspecified] Episodic Immunizations and screening for infectious disease (2 sources) Encounter for immunization; Translations: [Encounter for immunization] Onset: 01-03-2023 Episodic Malaise and fatigue (3 sources) Physical deconditioning; Translations: [Other malaise] Onset: 09-10-2022 Episodic Mycoses (1 source) Onychomycosis due to dermatophyte ; Translations: [Tinea unguium] Episodic Open wounds of extremities (2 sources) Unspecified open wound, left foot, initial encounter; Translations: [Unspecified open wound, left lower leg, subsequent encounter] Onset: 01-10-2024 Episodic Other aftercare (1 source) Drug therapy finding; Translations: [thermostatic controls supervisor (current) use of anticoagulants] Episodic Other circulatory disease (2 sources) Carotid bruit; Translations: [Other specified symptoms and signs involving the circulatory and respiratory systems] Episodic Other diseases of bladder and urethra (19 sources) Mass of urinary bladder; Translations: [Other specified disorders of bladder] Onset: 08-06-2018 Resolved: 10-21-2018 10-21-2018 Chronic Other fractures (2 sources) Other specified fracture of right pubis, subsequent encounter for fracture with routine healing; Translations: [Other specified fracture of right pubis, subsequent encounter for fracture with routine healing] Onset: 10-03-2022 Episodic Other fractures (2 sources) Fracture of superior rim of right pubis, initial encounter for closed fracture; Translations: [Fracture of superior rim of right pubis, initial encounter for closed fracture] Onset: 09-12-2022 Episodic Other fractures (2 sources) Unspecified fracture of right acetabulum, initial encounter for closed fracture; Translations: [Unspecified fracture of right acetabulum, initial encounter for closed fracture] Onset: 09-12-2022 Episodic Other gastrointestinal disorders (19 sources) Heartburn; Translations: [Heartburn] Onset: 07-05-2010 06-17-2014 Episodic Other gastrointestinal disorders (4 sources) Constipation, unspecified; Translations: [Constipation, unspecified] Onset: 06-19-2014 Episodic Other lower respiratory disease (2 sources) Pleurodynia; Translations: [Pleurodynia] Onset: 11-06-2022 Episodic Other lower respiratory disease (2 sources) Other forms of dyspnea; Translations: [Other forms of dyspnea] Onset: 06-14-2022 Episodic Other lower respiratory disease (3 sources) Dyspnea on exertion; Translations: [Other forms of dyspnea] Episodic Other lower respiratory disease (2 sources) Wheezing; Translations: [Wheezing] Onset: 02-04-2024 Episodic Other nervous system disorders (1 source) Other symbolic dysfunctions; Translations: [Other symbolic dysfunctions] Onset: 05-01-2024 Episodic Other non-traumatic joint disorders (3 sources) Pain in right knee; Translations: [Pain in joint, lower leg] Onset: 10-31-2022 10-31-2022 Episodic Other non-traumatic joint disorders (2 sources) Pain in right hip; Translations: [Pain in right hip] Onset: 10-03-2022 Episodic Other skin disorders (2 sources) Disorder of the skin and subcutaneous tissue, unspecified; Translations: [Disorder of the skin and subcutaneous tissue, unspecified] Onset: 01-03-2023 Episodic Pneumonia (except that caused by tuberculosis or sexually transmitted disease) (4 sources) Secondary bacterial pneumonia; Translations: [Unspecified bacterial pneumonia] Onset: 06-04-2024 Episodic Respiratory failure; insufficiency; arrest (adult) (3 sources) Acute respiratory failure; Translations: [Acute respiratory failure with hypoxia] Onset: 01-03-2023 Episodic Skin and subcutaneous tissue infections (1 source) Local infection of the skin and subcutaneous tissue, unspecified; Translations: [Local infection of the skin and subcutaneous tissue, unspecified] Onset: 01-06-2024 Episodic Transient cerebral ischemia (20 sources) Cerebral ischemia; Translations: [Transient cerebral ischemic attack, unspecified] Onset: 07-05-2010 Resolved: 06-17-2014 06-17-2014 Chronic Unclassified (1 source) Abdominal aortic aneurysm, without rupture, unspecified; Translations: [Abdominal aortic aneurysm, without rupture, unspecified] Onset: 04-23-2022 Unclassified (1 source) Vascular dementia, mild, without behavioral disturbance, psychotic disturbance, mood disturbance, and anxiety; Translations: [Vascular dementia, mild, without behavioral disturbance, psychotic disturbance, mood disturbance, and anxiety] Onset: 01-03-2023 Results Test Name Value Interpretation Reference Range Facility Cardiology Visit Reporton Cardiology Visit Report [facility] [address] [place], [place] [address] OFFICE VISIT Date of Service: 11/05/24 MR#: [id number] Acct: [id number] Name: MICK COTTRELL Rep #: [id number] : 1940 Provider: AMERICA jones Age/Sex: 84/M [place] [facility] Status: Signed HPI HPI History of Present Illness Details: This is an 84-year-old male who presents to the office today for cardiovascular follow-up visit. He has a history of paroxysmal atrial fibrillation, hypertension and aortic valve stenosis status post aortic valve replacement with a bioprosthetic valve in 2010. [facility] does live in a [facility]. He presents to the office today in a wheelchair, accompanied by an aide. From a cardiac standpoint, the patient is doing well. He denies any palpitations, chest pain, pressure or heaviness. He denies SOB, Orthopnea, and PND. He does not have bleeding issues; no blood in urine, stool, or nosebleeds. He denies any decrease in energy level, myalgias, or claudication. He does not have edema, or sudden weight gain. He denies lightheadedness, dizziness, syncopal or near syncopal episodes, and headaches. Intake Vital Signs 05/07/24 11:49 11/04/24 07:21 11/05/24 11:35 Height 5 ft 11 in 5 ft 11 in 5 ft 11 in BP 125/77 H Blood Pressure Location Lt brachial Position Sitting Respiration 16 Pulse 62 Pulse Source Monitor Intake Visit Reasons: 6 M FU Drilling Fluids Specialist Required: No Is patient in pain?: No Allergies Penicillins Allergy (Severe, Verified 11/05/24 11:37) Anaphylaxis Medications ???Medication ???Instructions ???Recorded ???Confirmed ???Type finasteride 5 mg tablet 5 mg PO DAILY 04/22/23 11/05/24 Hi story montelukast 10 mg tablet 10 mg PO QHS 04/22/23 11/05/24 His tory (Singulair) sertraline 50 mg tablet 50 mg PO DAILY 04/22/23 11/05/24 H istory metformin 1,000 mg tablet 1,000 mg PO DAILY 04/24/23 5 History metoprolol tartrate 25 mg tablet 25 mg PO BID #60 tabs 05/02/23 Rx aspirin 81 mg chewable tablet 81 mg PO QDAY 02/05/24 11/05/24 Hi story empagliflozin 25 mg tablet 25 mg PO QAM 02/05/24 11/05/24 His tory fexofenadine 180 mg tablet 180 mg PO DAILY PRN 02/05/2411/05 History (Boby Hives) spironolactone 25 mg tablet 25 mg PO QDAY 02/05/24 11/05/24 Hi story acetaminophen 500 mg capsule 1,000 mg PO Q8 PRN 05/07/24 History atorvastatin 20 mg tablet 20 mg PO QDAY #90 tabs 05/07/24 Rx albuterol sulfate 2.5 mg/3 mL 2.5 mg inhalation BID 05/29/24 History (0.083 %) solution for nebulization albuterol sulfate 2.5 mg/3 mL 2.5 mg inhalation Q4H PRN 05/29/24 11/05/24 History (0.083 %) solution for nebulization arginine 7 gram-glutamine 7 ea PO BID 05/29/24 11/05/24 Histor y gram-calcium HMB 1.5 gram oral powder pack (Jose) bisacodyl 10 mg rectal suppository 10 mg UT QDAY PRN 05/29/2411/05 History loperamide 2 mg capsule (Imodium 2 mg PO Q6H PRN 05/29/24 11/05/24 History A-D) magnesium hydroxide 400 mg/5 mL 5 ml PO QDAY PRN 05/29/24 11/05/24 History oral suspension (Milk of Magnesia) potassium chloride 10 mEq 20 meq PO QAM 11/05/24 11/05/24 Hi story capsule,extended release Have you fallen in the past year?: Yes PFSH Medical History (Reviewed 11/05/24 @ 11:42 by Génesis Bergeron COSTUME SHOP COORDINATOR, COSTUME SHOP COORDINATOR-C) MRSA (methicillin resistant staph aureus) culture positive Neuropathy Osteoarthritis GERD (gastroesophageal reflux disease) SANJU (obstructive sleep apnea) COVID-19 ( 02/2020) Dysphagia SDH (subdural hematoma) Fracture of thumb, left, closed History of fall Thrombophilia Nonrheumatic aortic (valve) stenosis Pulmonary nodule CAD (coronary artery disease) Major depression Cognitive impairment BPH (benign prostatic hyperplasia) Migraine headache Pulmonary embolism Diastolic heart failure with preserved ejection fraction CVA (cerebral vascular accident) History of TIA (transient ischemic attack) and stroke COPD (chronic obstructive pulmonary disease) Bladder cancer Paroxysmal atrial fibrillation Hyperlipidemia Diabetes mellitus Mitral valve problem Hx of stroke associated with blood clotting tendency HTN (hypertension) High cholesterol History of prostate cancer Surgical History (Reviewed 11/05/24 @ 11:42 by Génesis Bergeron COSTUME SHOP COORDINATOR, COSTUME SHOP COORDINATOR-C) Hx of nasal septoplasty Hx of tonsillectomy Hx laparoscopic cholecystectomy Hx of bilateral cataract extraction History of thoracotomy History of carpal tunnel release of both wrists History of transurethral resection of bladder tumor (TURBT) History of loop recorder H/O aortic valve replacement ( 09/08/10) Family History (Reviewed 11/05/24 @ 11:42 by Génesis Bergeron COSTUME SHOP COORDINATOR, COSTUME SHOP COORDINATOR-C) Mother Heart disease (more content not included)... Normal [facility] Calculated very low density lipoprotein (VLDL) cholesterol measurementOrdered By: Danielle Hernandez on 08-28-2024 Calculated very low density lipoprotein (VLDL) cholesterol measurement 16 mg/dL 5-40 [facility] LDL calc ser/plasOrdered By: Danielle Hernandez on 08-28-2024 Cholesterol in LDL [Mass/Vol] 48 mg/dL [facility] Comment on above: Vxzjrkckae=122-540 m g/dL & Higher Wbdu=748 mg/dL or greater Screening total cholesterol/ high density lipoprotein (HDL) cholesterol ratioOrdered By: Danielle Hernandez on 08-28-2024 Cholesterol.total/Chol esterol in HDL [Mass ratio] 3.16 {ratio} [facility] Serum or plasma cholesterol in HDL measurement (mass/volume)Ordered By: Danielle Hernandez on 08-28-2024 Cholesterol in HDL [Mass/Vol] 30 mg/dL Low >40 [facility] Comment on above: National Cholesterol Education Program (NCEP) guidelines:<40 mg/dL: Low HDL-cholesterol (major risk factor for CHD)>= 60 mg/dL: High HDL-cholesterol (negative risk factor for CHD)HDL-cholesterol is affected by a number of factors, e.g. smoking, exercise, hormones, sex and age. Serum or plasma cholesterol measurement (mass/volume)Ordered By: Danielle Hernandez on 08-28-2024 Cholesterol [Mass/Vol] 94 mg/dL <201 [facility] Comment on above: Cholesterol level, D esirable <200 mg/dLBorderline high cholesterol 200-239 mg/dLHigh cholesterol >=240 mg/dLRecommendations of the NCEP Adult Treatment Panel for the following risk-cutoff thresholds for the [place] population. Triglycerides measurementOrd ered By: Danielle Hernandez on 08-28-2024 Triglyceride [Mass/Vol] 82 mg/dL <199 [facility] Comment on above: The drugs N-Acetylcy steine and Metamizole may falsely depress this assay. Normal range: <150 mg/dLBorderline High: 150-199 mg/dLHigh: 200-499 mg/dLVery High: >500 mg/dL Bilirubin Test strip Ql (U)O rdered By: Danielle Hernandez on 08-26-2024 Bilirubin Ql (U) Negative Negative [facility] Ketones Test strip Ql (U)Ord ered By: Danielle Hernandez on 08-26-2024 Ketones Ql (U) Negative Negative [facility] Nitrite Test strip Ql (U)Ord ered By: Danielle Hernandez on 08-26-2024 Nitrite Ql (U) Negative Negative [facility] Protein Test strip Ql (U)Ord ered By: Danielle Hernandez on 08-26-2024 Protein Ql (U) 15 mg/dl High Negative [facility] Urine clarityOrdered By: Abdulaziz Hernandez on 08-26-2024 Clarity (U) Clear Clear [facility] Urine color determinationOrd ered By: Danielle Hernandez on 08-26-2024 Color (U) Yellow Yellow [facility] Urine cultureOrdered By: Abdulaziz Hernandez on 08-26-2024 Bacteria identified Cx Nom (U) Enterococcus faecalis Abnormal [facility] Urine glucose detectionOrder ed By: Danielle Hernandez on 08-26-2024 Glucose Ql (U) 1000 mg/dl High Normal [facility] Urine leukocyte esterase det ection by dipstickOrdered By: Danielle Hernandez on 08-26-2024 Leukocyte esterase Test strip Ql (U) 500 /ul High Negative [facility] Urine pHOrdered By: Nilay Hernandez on 08-26-2024 pH (U) 6.0 [pH] 5.0 - 8.0 [facility] Urine specific gravity measu rementOrdered By: constantinsuttoncorey Hernandez on 08-26-2024 Specific gravity (U) [Rel density] 1.010 1.002-1.030 [facility] Urine urobilinogen measureme ntOrdered By: Danielle Hernandez on 08-26-2024 Urobilinogen Ql (U) Normal mg/dl Normal [facility] Echocardiogram study reportO rdered By: Yadira Desouza on 08-10-2024 Study report [facility] [address] [place] [address] Echo Complete W/ Contrast 08/07/24 1005 MR#: [id number] Acct: [id number] Name: MICK COTTRELL Rep #:[id number] : 1940 83 From: Yadira Desouza MD Attending Dr: Dr. Yadira Desouza MD Status: REG CLI Ordering Dr: Yadira Desouza MD Date: Location: [facility] Sex: M C Admitted: Reason For Study Reason For Study: CAD/ASHD Procedure This was a 2D Doppler, Color Flow transthoracic echocardiogram. The study was technically difficult. Contrast injection was performed. Exam performed in department. Left Ventricle Normal LV size. Mild concentric left ventricular hypertrophy. The LV systolic function is normal. EF is 65 %. Stage 1 diastolic dysfunction. Right Ventricle Normal right ventricle. Atria The left and right atria are normal. Mitral Valve Trivial mitral valve insufficiency. Tricuspid Valve Trivial tricuspid valve insufficiency. Unable to estimate RV systolic pressure due to insufficient tricuspid regurgitant envelope. Aortic Valve Moderately calcified bioprosthetic aortic valve. Mean peak gradient 46 mmHg. Previously noted mean peak gradient 31 mmHg in 2022. Trivial to mild regurgitation. Pulmonic Valve The pulmonic valve is not well visualized. Great Vessels The aortic root is not well visualized. Pericardium/Pleural No pericardial effusion. Medication 22 gauge I.V. with prn adaptor inserted into right arm. Diluted definity 3.5ml given slow IV push to enhance endocardial definition. MMode/2D Measurements & Calculations LVIDd: 3.7 cm IVSd: 1.5 cm LVOT diam: 2.0 cm LVIDs: 2.5 cm LVPWd: 1.5 cm RVDd: 3.7 cm FS: 33.5 % LVOT area: 3.2 cm2 LAV(MOD-bp): 45.5 ml LVAd ap4: 31.9 cm2 SV(MOD-sp4): 64.5 ml LAV(MOD-bp) Indexed: 21.8 ml/m2 LVLd ap4: 8.8 cm SI(MOD-sp4): 31.0 ml/m2 LAV(MOD-sp2): 49.8 ml EDV(MOD-sp4): 97.1 ml LAV(MOD-sp4): 38.2 ml EDV(sp4-el): 98.0 ml LVAs ap4: 16.7 cm2 LVLs ap4: 7.3 cm ESV(MOD-sp4): 32.6 ml ESV(sp4-el): 32.5 ml EF(MOD-sp4): 66.4 % EF(sp4-el): 66.8 % SV(sp4-el): 65.4 ml LA A4 area: 15.7 cm2 LA dimension(2D): 3.1 cm RA A4 area: 14.3 cm2 TAPSE: 1.7 cm Time Measurements MV dec time: 0.34 sec Doppler Measurements & Calculations MV E max colleen: 59.8 cm/sec Lat Peak E' Colleen: 9.9 cm/sec Med Peak E' Colleen: 5.6 cm/sec MV A max colleen: 102.9 cm/sec E/E' lat: 6.0 E/E' med: 10.7 MV E/A: 0.58 MV V2 max: 117.9 cm/sec MV P1/2t max colleen: 81.5 cm/sec Ao V2 max: 441.4 cm/sec MV max P.6 mmHg MV P1/2t: 104.0 msec Ao max P.1 mmHg MV V2 mean: 55.8 cm/sec MV dec slope: 229.6 cm/sec2 Ao V2 mean: 319.3 cm/sec MV mean P.5 mmHg MVA(P1/2t): 2.1 cm2 Ao mean P.1 mmHg MV V2 VTI: 28.7 cm Ao V2 VTI: 103.9 cm MVA(VTI): 3.0 cm2 AV (velocity ratio): 0.26 KAT(I,D): 0.83 cm2 KAT(V,D): 0.80 cm2 LV V1 max: 109.3 cm/sec SV(LVOT): 85.9 ml PA V2 max: 98.1 cm/sec LV V1 max P.9 mmHg LV V1 mean P.8 mmHg LV V1 mean: 78.8 cm/sec LV V1 VTI: 26.7 cm ECHO/Echo Complete W/ Contrast Interpretation Summary Mild concentric left ventricular hypertrophy. The LV systolic function is normal. EF is 65 %. Stage 1 diastolic dysfunction. Moderately calcified bioprosthetic aortic valve. Mean peak gradient 46 mmHg. Previously noted mean peak gradient 31 mmHg in 2022. Recommend cardiac MRI or DAYNA for further evaluation. The study was technically difficult. Ordering Physician: Yadira Desouza Referring Physician: Danielle Hernandez Performed By: Salvador Marcano RCS 08/10/24 0834 Date _ Yadira Desouza MD CC: Dr. Yadira Desouza MD; Dr. Danielle Hernandez MD ~ Date Dictated: 08/07/24 1005 Date Transcribed: 08/10/24 0834 Brood Station Manager: Signed [facility] Work Phone: Echo Complete W/ Contraston 08-07-2024 Echo Complete W/ Contrast [facility] [place] [address] Echo Complete W/ Contrast 08/07/24 1005 MR#: [id number] Acct: [id number] Name: MICK COTTRELL Rep #: [id number] : 1940 83 From: Yadira Desouza MD Attending Dr: Dr. Yadira Desouza MD Status: REG CLI Ordering Dr: Yadira Desouza MD Date: 08/07/24 Location: [facility] Sex: M C Admitted: Reason For Study Reason For Study: CAD/ASHD Procedure This was a 2D Doppler, Color Flow transthoracic echocardiogram. The study was technically difficult. Contrast injection was performed. Exam performed in department. Left Ventricle Normal LV size. Mild concentric left ventricular hypertrophy. The LV systolic function is normal. EF is 65 %. Stage 1 diastolic dysfunction. Right Ventricle Normal right ventricle. Atria The left and right atria are normal. Mitral Valve Trivial mitral valve insufficiency. Tricuspid Valve Trivial tricuspid valve insufficiency. Unable to estimate RV systolic pressure due to insufficient tricuspid regurgitant envelope. Aortic Valve Moderately calcified bioprosthetic aortic valve. Mean peak gradient 46 mmHg. Previously noted mean peak gradient 31 mmHg in 2022. Trivial to mild regurgitation. Pulmonic Valve The pulmonic valve is not well visualized. Great Vessels The aortic root is not well visualized. Pericardium/Pleural No pericardial effusion. Medication 22 gauge I.V. with prn adaptor inserted into right arm. Diluted definity 3.5ml given slow IV push to enhance endocardial definition. MMode/2D Measurements Calculations LVIDd: 3.7 cm IVSd: 1.5 cm LVOT diam: 2.0 cm LVIDs: 2.5 cm LVPWd: 1.5 cm RVDd: 3.7 cm FS: 33.5 % LVOT area: 3.2 cm2 LAV(MOD-bp): 45.5 ml LVAd ap4: 31.9 cm2 SV(MOD-sp4): 64.5 ml LAV(MOD-bp) Indexed: 21.8 ml/m2 LVLd ap4: 8.8 cm SI(MOD-sp4): 31.0 ml/m2 LAV(MOD-sp2): 49.8 ml EDV(MOD-sp4): 97.1 ml LAV(MOD-sp4): 38.2 ml EDV(sp4-el): 98.0 ml LVAs ap4: 16.7 cm2 LVLs ap4: 7.3 cm ESV(MOD-sp4): 32.6 ml ESV(sp4-el): 32.5 ml EF(MOD-sp4): 66.4 % EF(sp4-el): 66.8 % SV(sp4-el): 65.4 ml LA A4 area: 15.7 cm2 LA dimension(2D): 3.1 cm RA A4 area: 14.3 cm2 TAPSE: 1.7 cm Time Measurements MV dec time: 0.34 sec Doppler Measurements Calculations MV E max colleen: 59.8 cm/sec Lat Peak E' Colleen: 9.9 cm/sec Med Peak E' Colleen: 5.6 cm/sec MV A max colleen: 102.9 cm/sec E/E' lat: 6.0 E/E' med: 10.7 MV E/A: 0.58 MV V2 max: 117.9 cm/sec MV P1/2t max colleen: 81.5 cm/sec Ao V2 max: 441.4 cm/sec MV max P.6 mmHg MV P1/2t: 104.0 msec Ao max P.1 mmHg MV V2 mean: 55.8 cm/sec MV dec slope: 229.6 cm/sec2 Ao V2 mean: 319.3 cm/sec MV mean P.5 mmHg MVA(P1/2t): 2.1 cm2 Ao mean P.1 mmHg MV V2 VTI: 28.7 cm Ao V2 VTI: 103.9 cm MVA(VTI): 3.0 cm2 AV (velocity ratio): 0.26 KAT(I,D): 0.83 cm2 KAT(V,D): 0.80 cm2 LV V1 max: 109.3 cm/sec SV(LVOT): 85.9 ml PA V2 max: 98.1 cm/sec LV V1 max P.9 mmHg LV V1 mean P.8 mmHg LV V1 mean: 78.8 cm/sec LV V1 VTI: 26.7 cm ECHO/Echo Complete W/ Contrast Interpretation Summary Mild concentric left ventricular hypertrophy. The LV systolic function is normal. EF is 65 %. Stage 1 diastolic dysfunction. Moderately calcified bioprosthetic aortic valve. Mean peak gradient 46 mmHg. Previously noted mean peak gradient 31 mmHg in 2022. Recommend cardiac MRI or DAYNA for further evaluation. The study was technically difficult. Ordering Physician: Yadira Desouza Referring Physician: Danielle Hernandez Performed By: Salvador Marcano RCS 08/10/24 0834 Date Yadira Desouza MD CC: Dr. Yadira Desouza MD; Dr. Danielle Hernandez MD Date Dictated: 08/07/241004 Date Transcribed: 08/10/24833 Brood Station Manager: Signed Normal [facility] Wound Cultureon 07-23-2024 WC RIGHT LEG ULCER No growth aerobically. Normal [facility] Comment on above: Performed By: #### M 100.2000, M100.3000 #### [facility] [address] [place], [place], [address] Gram Stainon 07-22-2024 GS RIGHT LEG ULCER Gram Stain 2+ Red Blood Cells No organisms seen Normal [facility] Comment on above: Performed By: #### M 100.2000, M100.3000 #### [facility] [address] [place], [place], [address] Gram stainOrdered By: Ronal Quiles on 07-21-2024 Microscopic observation Gram stain Nom (Unsp spec) [facility] Absolute lymphocyte countOrd ered By: Danielle Hernandez on 06-26-2024 Lymphocytes Auto (Unsp spec) [#/Vol] 1.40 10*3/uL 0.83-4.51 [facility] Absolute neutrophil countOrd ered By: Danielle Hernandez on 06-26-2024 Neutrophils (Bld) [#/Vol] 6.3 10*3/uL 2.0-7.7 [facility] Anion gap in Serum or Plasma Ordered By: Danielle Hernandez on 06-26-2024 Anion gap [Moles/Vol] 12 mmol/L 5-15 [facility] Automated lymphocyte count a s percentage of total leukocytesOrdered By: Danielle Hernandez on 06-26-2024 Lymphocytes/100 WBC Auto (Unsp spec) 16.3 % Low 19-41 [facility] BUN/creatinine ratioOrdered By: Danielle Hernandez on 06-26-2024 Urea nitrogen/Creatinine [Mass ratio] 31.5 mg/mg High 10-20 [facility] Basophil percentageOrdered B y: Danielle Hernandez on 06-26-2024 Basophils/100 WBC (Bld) 0.4 % 0-1 [facility] Bilirubin directOrdered By: Danielle Hernandez on 06-26-2024 Bilirubin.direct [Mass/Vol] 0.16 mg/dL 0.00-0.30 [facility] Bilirubin, totalOrdered By: Danielle Hernandez on 06-26-2024 Bilirubin [Mass/Vol] 0.36 mg/dL 0.00-1.30 [facility] Carbon dioxide, total [Moles /volume] in Central venous bloodOrdered By: Danielle Hernandez on 06-26-2024 CO2 [Moles/Vol] 22.3 mmol/L 21.0-32.0 [facility] Chloride assayOrdered By: Jair Hernandez on 06-26-2024 Chloride [Moles/Vol] 101 mmol/L 98-108 [facility] Eosinophil percentageOrdered By: Danielle Hernandez on 06-26-2024 Eosinophils/100 WBC (Bld) 1.9 % 0-5 [facility] Erythrocyte distribution wid th ratioOrdered By: Danielle Hernandez on 06-26-2024 Erythrocyte distribution width (RBC) [Ratio] 15.5 % High 11.6-14.6 [facility] Erythrocyte distribution wid th standard deviationOrdered By: Danielle Hernandez on 06-26-2024 Erythrocyte distribution width (RBC) [Ratio] 58.0 fl High 35.1-43.9 [facility] Glomerular filtration rate ( GFR) estimation/1.73 sq m using serum, plasma, or whole bOrdered By: Danielle Hernandez on 06-26-2024 GFR/1.73 sq M.predicted among non-blacks MDRD (S/P/Bld) [Vol rate/Area] 59 mL/min/{1.73_m2} Low >60 [facility] Comment on above: mL/min/1.73m2 CKD-EP I Creatinine Equation (2020) Hematocrit Auto (Bld) [Volum e fraction]Ordered By: Danielle Hernandez on 06-26-2024 Hematocrit (Bld) [Volume fraction] 45.4 % 40-54 [facility] Hemoglobin A1c percentageOrd ered By: Danielle Hernandez on 06-26-2024 HbA1c (Bld) [Mass fraction] 6.8 % >5.7 [facility] Hemoglobin measurementOrdere d By: Danielle Hernandez on 06-26-2024 Hemoglobin (Bld) [Mass/Vol] 15.0 g/dL 13.0-16.5 [facility] Immature granulocytes/100 WB C Auto (Bld)Ordered By: Danielle Hernandez on 06-26-2024 Immature granulocytes/100 WBC (Bld) 0.600 % 0.0-0.9 [facility] Comment on above: IG% - Immature Granu locytes (promyelocytes, myelocytes and metamyelocytes) > 1% indicates that a LEFT SHIFT is Present. Laboratory - Chemistry and C hemistry - challengeOrdered By: Danielle Hernandez on 06-26-2024 AST [Catalytic activity/Vol] 21 U/L <38 [facility] MCV (mean corpuscular volume ) determinationOrdered By: Danielle Hernandez on 06-26-2024 MCV (RBC) [Entitic vol] 101.6 fL High 80-94 [facility] Mean corpuscular hemoglobin (MCH) determinationOrdered By: Danielle Hernandez on 06-26-2024 MCH (RBC) [Entitic mass] 33.6 pg High 27.0-32.0 [facility] Mean corpuscular hemoglobin concentration (MCHC) determinationOrdered By: Danielle Hernandez on 06-26-2024 MCHC (RBC) [Mass/Vol] 33.0 g/dL 32-36 [facility] Mean platelet volume determi nationOrdered By: Danielle Hernandez on 06-26-2024 Platelet mean volume (Bld) [Entitic vol] 12.2 fL High 6.2-12.0 [facility] Monocyte percentageOrdered B y: Danielle Hernandez on 06-26-2024 Monocytes/100 WBC (Bld) 7.8 % 0-10 [facility] Neutrophil percentageOrdered By: Danielle Hernandez on 06-26-2024 Neutrophils/100 WBC (Bld) 73.0 % High 47-70 [facility] Nucleated red blood cell per centageOrdered By: Danielle Hernandez on 06-26-2024 Nucleated RBC/100 WBC (Bld) [Ratio] 0 % 0-5 [facility] Platelet countOrdered By: Jair Hernandez on 06-26-2024 Platelets (Bld) [#/Vol] 108 10*3/uL Low 150-450 [facility] Potassium measurement (mass/ volume)Ordered By: Danielle Hernandez on 06-26-2024 Potassium (Unsp spec) [Mass/Vol] 4.8 mmol/L 3.3-5.1 [facility] RBC Auto (Bld) [#/Vol]Ordere d By: Danielle Hernandez on 06-26-2024 RBC (Bld) [#/Vol] 4.47 10*6/uL Low 4.6-6.2 [facility] Serum creatinine measurement (mass/volume)Ordered By: Danielle Hernandez on 06-26-2024 Creatinine [Mass/Vol] 1.21 mg/dL High 0.70-1.20 [facility] Serum globulin measurementOr dered By: Danielle Hernandez on 06-26-2024 Globulin (S) [Mass/Vol] 2.6 g/dL 2.2-4.2 [facility] Serum glucose measurement (m ass/volume)Ordered By: Danielle Hernandez on 06-26-2024 Glucose [Mass/Vol] 118 mg/dL High 70-99 [facility] Serum or plasma alanine jackson otransferase (ALT) measurementOrdered By: Danielle Hernandez on 06-26-2024 ALT [Catalytic activity/Vol] 13 U/L <47 [facility] Serum or plasma albumin cr urement (mass/volume)Ordered By: Danielle Hernandez on 06-26-2024 Albumin [Mass/Vol] 3.6 g/dL 3.4-4.8 [facility] Serum or plasma alkaline abena sphatase measurementOrdered By: Danielle Hernandez on 06-26-2024 ALP [Catalytic activity/Vol] 156 U/L High 40-129 [facility] Serum or plasma calcium cr urement (mass/volume)Ordered By: Danielle Hernandez 06-26-2024 Calcium [Mass/Vol] 9.7 mg/dL 7.6-11.0 [facility] Serum or plasma urea nitroge n measurement (mass/volume)Ordered By: Danielle Hernandez 06-26-2024 Urea nitrogen [Mass/Vol] 38 mg/dL High 4-19 [facility] Sodium levelOrdered By: Karen Hernandez on 06-26-2024 Sodium [Moles/Vol] 135 mmol/L 133-145 [facility] Total proteinOrdered By: Abdulaziz Hernandez on 06-26-2024 Protein [Mass/Vol] 6.3 g/dL 5.9-8.4 [facility] White blood cell (WBC) count Ordered By: Danielle Hernandez 06-26-2024 WBC (Bld) [#/Vol] 8.6 10*3/uL 4.4-11.0 [facility] Wound Cultureon 06-17-2024 Copy of report sent to Infection Control Printer [id number] 06/17/24 08Koko HAILE. #2 Gram positive david suggestive of a diphtheroid. Susceptibility not normally performed on this organism Meth. resistant Staph. aureus Amount Growth 3+ mecA Testing not performed GPR Amount Growth 2+ Gram positive david cefOXitin Susc Islt Doxycycline Islt GUIDO >=16 R Clindamycin Islt GUIDO Clindamycin.induced Susc Islt POS Erythromycin Islt GUIDO >=8 R Gentamicin Islt GUIDO <=0.5 S Linezolid Islt GUIDO 2 S Moxifloxacin Islt GUIDO >=8 R Oxacillin Susc Islt >=4 R Tetracycline Islt GUIDO >=16 R TMP SMX Islt GUIDO <=10 S Vancomycin Islt GUIDO <=0.5 S Normal [facility] Comment on above: Performed By: #### M 100.2000, M100.3000 #### [facility] [address] [place], [address] Gram Stainon 06-16-2024 GS Gram Stain 1+ Gram positive cocci No White Blood Cells No Epithelial cells Normal [facility] Comment on above: Performed By: #### M 100.1999, M100.3000 #### [facility] [address] [place], [address] Gram stainOrdered By: Ronal Quiles on 06-15-2024 Microscopic observation Gram stain Nom (Unsp spec) [facility] Routine wound cultureOrdered By: Hyacinth Quiles on 06-15-2024 Microbial culture, routine Meth. resistant Staph. aureus Abnormal [facility] Wound Culture Meth. resistant Staph. aureus Abnormal [facility] Wound Culture Positive Abnormal [facility] Arterial study reportOrdered By: Jimy Goldstein on 06-01-2024 Noninvasive arteriosclerosis study report [facility] [address] [place] [address] Lower Ext Art Exam w/o Exercis 05/29/24 1340 MR#: [id number] Acct: [id number] Name: MICK COTTRELL Rep #:[id number] : 1940 83 From: Jimy Melvin Attending Dr: ADRIANNA Cerda Stat us: REG CLI Ordering Dr: Agueda Champagne Date: Location: [facility] Sex: M C Admitted: Reason For Study Reason For Study: Ulcer Procedure A bilateral lower extremity continuous wave Doppler with analog waveform analysis,segmental pressures,and ankle brachial indexes without exercise. Left Segmental Pressures Left brachial= 121mmHg. Left calf = 134mmHg. Left posterior tibial artery = 112mmHg. Left dorsalis pedis artery = 61mmHg. The left dorsalis pedis waveforms are monophasic. The left posterior tibial artery waveforms are monophasic. Right Segmental Pressures Right brachial= 118mmHg. Right posterior tibial artery = >254mmHg. Right dorsalis pedis artery = >254mmHg. Right digit = 101 mmHg. The right dorsalis pedis waveforms are biphasic. The right posterior tibial artery waveforms are biphasic. Indices The right ankle brachial index by the dorsalis pedis is NC. The right ankle brachial index by the posterior tibial artery is NC. The right digital-brachial index is 0.83. The left ankle brachial index by the posterior tibial artery is 0.93. The left ankle brachial index by the dorsalis pedis is 0.50. VL/Lower Ext Art Exam w/o Exercis Interpretation Summary Right DIMITRIS not able to be obtained due to non-compressible vessels. Doppler/PVR waveforms of the right mildly diminished at rest. Left DIMITRIS 0.93, mild arterial insufficiency though may be artificially elevated. Doppler/PVR waveforms of the left leg moderately diminished distal SFA/popliteal Ordering Physician: Agueda Champagne Referring Physician: Danielle Hernandez Performed By: Bill Sparks RVT and Student 06/01/24 1552 Date _ Jimy Goldstein MD CC: ADRIANNA Cerda; Dr. Danielle Hernandez MD ~ Date Dictated: 05/29/24 1340 Date Transcribed: 06/01/24 1552 Brood Station Manager: Signed [facility] Work Phone: Lower Ext Art Exam w/o Exerc tariq 05-29-2024 Lower Ext Art Exam w/o Exercis [facility] [address] [place] [address] Lower Ext Art Exam w/o Exercis 05/29/24 134 MR#: [id number] Acct: [id number] Name: MICK COTTRELL Rep #: [id number] : 1940 83 From: Jimy Goldstein MD Attending Dr: ADRIANNA Cerda Status: REG CLI Ordering Dr: Agueda Champagne Date: 05/29/24 Location: [facility] Sex: M C Admitted: Reason For Study Reason For Study: Ulcer Procedure A bilateral lower extremity continuous wave Doppler with analog waveform analysis,segmental pressures,and ankle brachial indexes without exercise. Left Segmental Pressures Left brachial= 121mmHg. Left calf = 134mmHg. Left posterior tibial artery = 112mmHg. Left dorsalis pedis artery = 61mmHg. The left dorsalis pedis waveforms are monophasic. The left posterior tibial artery waveforms are monophasic. Right Segmental Pressures Right brachial= 118mmHg. Right posterior tibial artery = >254mmHg. Right dorsalis pedis artery = >254mmHg. Right digit = 101 mmHg. The right dorsalis pedis waveforms are biphasic. The right posterior tibial artery waveforms are biphasic. Indices The right ankle brachial index by the dorsalis pedis is NC. The right ankle brachial index by the posterior tibial artery is NC. The right digital-brachial index is 0.83. The left ankle brachial index by the posterior tibial artery is 0.93. The left ankle brachial index by the dorsalis pedis is 0.50. VL/Lower Ext Art Exam w/o Exercis Interpretation Summary Right DIMITRIS not able to be obtained due to non-compressible vessels. Doppler/PVR waveforms of the right mildly diminished at rest. Left DIMITRIS 0.93, mild arterial insufficiency though may be artificially elevated. Doppler/PVR waveforms of the left leg moderately diminished distal SFA/popliteal Ordering Physician: Agueda Champagne Referring Physician: Danielle Hernandez Performed By: Bill Sparks RVT and Student 06/01/24 1552 Date Jimy Goldstein MD CC: ADRIANNA Cerda; Dr. Danielle Hernandez MD Date Dictated: 05/29/24 1340 Date Transcribed: 06/01/24 1552 Brood Station Manager: Daniel Normal [facility] MR/BMS.RIDDHISon 05-29-2024 MR/BMS.RIDDHIS [facility] Surgery [address] [place] [address]. [address] [place] [address] OFFICE VISIT Date of Service: 05/29/24 MR#: [id number] Acct: [id number] Name: MICK COTTRELL Rep #: [id number] : 1940 Provider: ADRIANNA Cerda Age/Sex: 83/M Location: [facility] Status: Signed Intake Vital Signs 05/07/24 11:49 05/29/24 14:40 Height 5 ft 11 in Weight: 171 lb BP 117/65 Blood Pressure Location Lt brachial Position Sitting Respiration 16 Pulse 89 Pulse Source Monitor Temp 97.8 F Temp Source Temporal Pulse Oximetry (%) 99 Oxygen Delivery Method room air Intake Visit Reasons: 1 M FU Chief Complaint: establish care Is patient in pain?: No Allergies Penicillins Allergy (Severe, Verified 05/29/24 14:40) Anaphylaxis Medications ???Medication ???Instructions ???Recorded ???Confirmed ???Type finasteride 5 mg tablet 5 mg PO DAILY 04/22/23 05/29/24 Hi story montelukast 10 mg tablet 10 mg PO QHS 04/22/23 05/29/24 His tory (Singulair) sertraline 50 mg tablet 50 mg PO DAILY 04/22/23 05/29/24 H istory metformin 1,000 mg tablet 1,000 mg PO DAILY 04/24/23 5 History metoprolol tartrate 25 mg tablet 25 mg PO BID #60 tabs 05/02/2310/16 Rx aspirin 81 mg chewable tablet 81 mg PO QDAY 02/05/24 05/29/24 Hi story empagliflozin 25 mg tablet 25 mg PO QAM 02/05/24 05/29/24 His tory fexofenadine 180 mg tablet 180 mg PO DAILY PRN 02/05/2405/29 History (Boby Hives) spironolactone 25 mg tablet 25 mg PO QDAY 02/05/24 05/29/24 Hi story oxycodone 5 mg tablet 2.5 mg (1/2 x 5 mg) PO DAILY pain 05/05/24 05/29/24 Rx 1 month #30 tabs acetaminophen 500 mg capsule 1,000 mg PO Q8 PRN 05/07/24 History atorvastatin 20 mg tablet 20 mg PO QDAY #90 tabs 05/07/24 Rx potassium chloride 10 mEq 40 meq PO QAM 05/07/24 05/29/24 Hi story capsule,extended release albuterol sulfate 2.5 mg/3 mL 2.5 mg inhalation BID 05/29/2410/16 History (0.083 %) solution for nebulization albuterol sulfate 2.5 mg/3 mL 2.5 mg inhalation Q4H PRN 05/29/24 05/29/24 History (0.083 %) solution for nebulization arginine 7 gram-glutamine 7 ea PO BID 05/29/24 05/29/24 Histor y gram-calcium HMB 1.5 gram oral powder pack (Jose) bisacodyl 10 mg rectal suppository 10 mg UT QDAY PRN 05/29/2405/29 History loperamide 2 mg capsule (Imodium 2 mg PO Q6H PRN 05/29/24 05/29/24 History A-D) magnesium hydroxide 400 mg/5 mL 5 ml PO QDAY PRN 05/29/24 05/29/24 History oral suspension (Milk of Magnesia) potassium chloride 10 mEq 20 meq PO BID 05/29/24 05/29/24 Hi story capsule,extended release Have you fallen in the past year?: Yes PFSH Medical History Neuropathy Osteoarthritis GERD (gastroesophageal reflux disease) SANJU (obstructive sleep apnea) COVID-19 ( 02/2020) Dysphagia SDH (subdural hematoma) Fracture of thumb, left, closed History of fall Thrombophilia Nonrheumatic aortic (valve) stenosis Pulmonary nodule CAD (coronary artery disease) Major depression Cognitive impairment BPH (benign prostatic hyperplasia) Migraine headache Pulmonary embolism Diastolic heart failure with preserved ejection fraction CVA (cerebral vascular accident) History of TIA (transient ischemic attack) and stroke COPD (chronic obstructive pulmonary disease) Bladder cancer Paroxysmal atrial fibrillation Hyperlipidemia Diabetes mellitus Mitral valve problem Hx of stroke associated with blood clotting tendency HTN (hypertension) High cholesterol History of prostate cancer Surgical History Hx of nasal septoplasty Hx of tonsillectomy Hx laparoscopic cholecystectomy Hx of bilateral cataract extraction History of thoracotomy History of carpal tunnel release of both wrists History of transurethral resection of bladder tumor (TURBT) History of loop recorder H/O aortic valve replacement ( 09/08/10) Family History Mother Heart disease Hypertension Breast cancer Father Hypertension Diabetes Social History Smoking Status: Former smoker Smokeless tobacco user: chewing tobacco alcohol intake: never substance use type: does not use caffeine: Yes Type: coffee HPI HPI HPI: MICK COTTRELL, is a 83 M who presents to the office today for follow-up of his left great toe wound in the setting of PAD and diabetes. He is accompanied to his appointment today by a aircraft powertrain repairer who helps to supplement his recent history. This wound has been present since late November 2023. No recent infections. No new LLE pain/claudication, swelling. (more content not included)... Normal [facility] Blood urea nitrogen (BUN)/cr eatinine ratioOrdered By: Danielle Hernandez on 05-14-2024 Urea nitrogen/Creatinine [Mass ratio] 29.9 mg/mg High 10-20 [facility] Carbon dioxide measurementOr dered By: Danielle Hernandez on 05-14-2024 CO2 [Moles/Vol] 23.0 mmol/L 21.0-32.0 [facility] Chloride measurementOrdered By: Danielle Hernandez on 05-14-2024 Chloride [Moles/Vol] 102 mmol/L 98-107 [facility] Estimated glomerular filtrat ion rate (GFR) AmericanOrdered By: Danielle Hernandez on 05-14-2024 Estimated GFR (MDRD) Amer 70 mL/min >60 [facility] Comment on above: GFR Calc Glomerular filtration rate ( GFR) estimationOrdered By: Danielle Hernandez on 05-14-2024 Estimated GFR (MDRD) Non-Af Amer 58 mL/min Low >60 [facility] Comment on above: Non- GFR Calc GFR/1.73 sq M.predicted among non-blacks MDRD (S/P/Bld) [Vol rate/Area] 58 mL/min/{1.73_m2} Low >60 [facility] Comment on above: Non- GFR Calc Glucose measurementOrdered B y: Danielle Hernandez on 05-14-2024 Glucose [Mass/Vol] 111 mg/dL High 74-106 [facility] Comment on above: Fasting Glucose resu lt from 100 to 125 mg/dL suggests IMPAIRED HOMEOSTASIS per A.D.A. criteria. Potassium measurementOrdered By: Danielle Hernandez on 05-14-2024 Potassium [Moles/Vol] 4.7 mmol/L 3.5-5.1 [facility] Serum anion gap measurementO rdered By: Danielle Hernandez on 05-14-2024 Anion gap [Moles/Vol] 10 mmol/L 5-15 [facility] Serum or plasma calcium cr urement (mass/volume)Ordered By: Danielle Hernandez on 05-14-2024 Calcium [Mass/Vol] 9.4 mg/dL 8.5-10.1 [facility] Serum or plasma creatinine m easurement (mass/volume)Ordered By: Danielle Hernandez on 05-14-2024 Creatinine [Mass/Vol] 1.27 mg/dL 0.70-1.30 [facility] Comment on above: The validity of the calculated GFR & GFRAA in patients over 70 years has not been determined. Clinical correlation is essential. Serum or plasma urea nitroge n measurement (mass/volume)Ordered By: Danielle Hernandez on 05-14-2024 Urea nitrogen [Mass/Vol] 38 mg/dL High 7-18 [facility] Sodium levelOrdered By: Karen willoughbyed David on 05-14-2024 Sodium [Moles/Vol] 135 mmol/L Low 136-145 [facility] L. pneumophila Ag Ql (U)Orde red By: Danielle Hernandez on 05-10-2024 Legionella Antigen [facility] Urine Legionella pneumophila antigen detectionOrdered By: Danielle Hernandez on 05-10-2024 L. pneumophila Ag Ql (U) [facility] Cardiology Visit Reporton Cardiology Visit Report [facility] [place] [address] [facility]. [address] [place], [place] [address] OFFICE VISIT Date of Service: 05/07/24 MR#: [id number] Acct: [id number] Name: MICK COTTRELL Rep #: [id number] : 1940 Provider: Dr. Yadira Desouza MD Age/Sex: 83/M Location[place] [facility] Status: Signed HPI HPI History of Present Illness Details: This gentleman with history of paroxysmal atrial fibrillation, hypertension and aortic valve stenosis status post aortic valve replacement with a bioprosthetic valve in 2010, is here for follow-up visit. Denies any complaints. No chest pains. No orthopnea. No PND. No ankle edema. No shortness of breath. Denies any palpitations. The patient has history of falls with a subdural hematoma. Subsequently he has not been on anticoagulation. Intake Vital Signs 03/04/24 13:09 05/07/24 11:49 Height 5 ft 11 in 5 ft 11 in Weight: 180 lb BMI 25.1 BP 126/78 H Blood Pressure Location Lt brachial Position Sitting Respiration 16 Pulse 57 L Pulse Source NIBP Intake Visit Reasons: 1 Y FU Drilling Fluids Specialist Required: No Accompanied by: transport Is patient in pain?: No Allergies Penicillins Allergy (Severe, Verified 05/07/24 13:21) Anaphylaxis Medications ???Medication ???Instructions ???Recorded ???Confirmed ???Type atorvastatin 40 mg tablet 40 mg PO QHS 04/22/23 05/07/24 His tory finasteride 5 mg tablet 5 mg PO DAILY 04/22/23 05/07/24 Hi story montelukast 10 mg tablet 10 mg PO QHS 04/22/23 05/07/24 His tory (Singulair) sertraline 50 mg tablet 50 mg PO DAILY 04/22/23 05/07/24 H istory metformin 1,000 mg tablet 1,000 mg PO DAILY 04/24/23 5 History potassium chloride 10 mEq 20 meq PO DAILY 04/24/23 05/07/24 History capsule,extended release metoprolol tartrate 25 mg tablet 25 mg PO BID #60 tabs 05/02/23 Rx aspirin 81 mg chewable tablet 81 mg PO QDAY 02/05/24 05/07/24 Hi story empagliflozin 25 mg tablet 25 mg PO QAM 02/05/24 05/07/24 His tory fexofenadine 180 mg tablet 180 mg PO DAILY PRN 02/05/2405/07 History (Boby Hives) spironolactone 25 mg tablet 25 mg PO QDAY 02/05/24 05/07/24 Hi story oxycodone 5 mg tablet 2.5 mg (1/2 x 5 mg) PO DAILY pain 05/05/24 05/07/24 Rx 1 month #30 tabs acetaminophen 500 mg capsule 1,000 mg PO Q8 PRN 05/07/24 History potassium chloride 10 mEq 40 meq PO QAM 05/07/24 05/07/24 Hi story capsule,extended release Ejection fraction %: 55 Have you fallen in the past year?: No PFSH Medical History Bladder cancer BPH (benign prostatic hyperplasia) CAD (coronary artery disease) Cognitive impairment COPD (chronic obstructive pulmonary disease) COVID-19 ( 02/2020) CVA (cerebral vascular accident) Diabetes mellitus Diastolic heart failure with preserved ejection fraction Dysphagia Fracture of thumb, left, closed GERD (gastroesophageal reflux disease) High cholesterol History of fall History of prostate cancer History of TIA (transient ischemic attack) and stroke HTN (hypertension) Hx of stroke associated with blood clotting tendency Hyperlipidemia Major depression Migraine headache Mitral valve problem Neuropathy Nonrheumatic aortic (valve) stenosis SANJU (obstructive sleep apnea) Osteoarthritis Paroxysmal atrial fibrillation Pulmonary embolism Pulmonary nodule SDH (subdural hematoma) Thrombophilia Surgical History H/O aortic valve replacement ( 09/08/10) History of carpal tunnel release of both wrists History of loop recorder History of thoracotomy History of transurethral resection of bladder tumor (TURBT) Hx laparoscopic cholecystectomy Hx of bilateral cataract extraction Hx of nasal septoplasty Hx of tonsillectomy Family History Mother Heart disease Hypertension Breast cancer Father Hypertension Diabetes Social History Smoking Status: Former smoker Smokeless tobacco user: chewing tobacco alcohol intake: never substance use type: does not use caffeine: Yes Type: coffee ROS Const Const: Negative for fatigue, weakness, headache(s) or weight gain ENT ENT: Negative for headache(s), dizziness, Nosebleed/epistaxis or balance problems Cardio Chest Pain: No Palpitations: No Edema: None Muscle aches with walking: None Resp Respiratory: Negative for SOB with activity, SOB at rest or SOB orthopnea SOB lying down GI GI: Negative nausea, vomiting or heartburn Musc Musc: Negative for muscle aches/ myalgia, muscle weakness, joint pain or balance problems Neuro Neuro: Negative for dizziness, lightheadedness, near synco (more content not included)... Normal [facility] Absolute lymphocyte countOrd ered By: Danielle Hernandez on 05-01-2024 Lymphocytes Auto (Unsp spec) [#/Vol] 1.47 10*3/uL 0.83-4.51 [facility] Absolute neutrophil countOrd ered By: Danielle Ellsworthandresmarjan on 05-01-2024 Neutrophils (Bld) [#/Vol] 5.3 10*3/uL 2.0-7.7 [facility] Automated lymphocyte count a s percentage of total leukocytesOrdered By: Danielle Hernandez on 05-01-2024 Lymphocytes/100 WBC Auto (Unsp spec) 19.3 % 19-41 [facility] Basophil percentageOrdered B y: Danielle Hernandez on 05-01-2024 Basophils/100 WBC (Bld) 0.1 % 0-1 [facility] Blood urea nitrogen (BUN)/cr eatinine ratioOrdered By: Danielle Hernandez on 05-01-2024 Urea nitrogen/Creatinine [Mass ratio] 33.9 mg/mg High 10-20 [facility] Carbon dioxide measurementOr dered By: Danielle Hernandez on 05-01-2024 CO2 [Moles/Vol] 25.0 mmol/L 21.0-32.0 [facility] Chloride measurementOrdered By: constantinsuttoncorey Hernandez on 05-01-2024 Chloride [Moles/Vol] 102 mmol/L 98-107 [facility] Eosinophil percentageOrdered By: Danielle Hernandez on 05-01-2024 Eosinophils/100 WBC (Bld) 2.8 % 0-5 [facility] Erythrocyte distribution wid th ratioOrdered By: Danielle Hernandez on 05-01-2024 Erythrocyte distribution width (RBC) [Ratio] 14.7 % High 11.6-14.6 [facility] Erythrocyte distribution wid th standard deviationOrdered By: Danielle Hernandez on 05-01-2024 Erythrocyte distribution width (RBC) [Entitic vol] 55.9 fL High 35.1-43.9 [facility] Erythrocyte distribution width (RBC) [Ratio] 55.9 fl High 35.1-43.9 [facility] Estimated glomerular filtrat ion rate (GFR) AmericanOrdered By: Danielle Hernandez on 05-01-2024 Estimated GFR (MDRD) Amer 78 mL/min >60 [facility] Comment on above: GFR Calc Glomerular filtration rate ( GFR) estimationOrdered By: Danielle Hernandez on 05-01-2024 Estimated GFR (MDRD) Non-Af Amer 65 mL/min >60 [facility] Comment on above: Non- GFR Calc GFR/1.73 sq M.predicted among non-blacks MDRD (S/P/Bld) [Vol rate/Area] 65 mL/min/{1.73_m2} >60 [facility] Comment on above: Non- GFR Calc Glucose measurementOrdered B y: Danielle Hernandez on 05-01-2024 Glucose [Mass/Vol] 110 mg/dL High 74-106 [facility] Comment on above: Fasting Glucose resu lt from 100 to 125 mg/dL suggests IMPAIRED HOMEOSTASIS per A.D.A. criteria. Hematocrit Auto (Bld) [Volum e fraction]Ordered By: Danielle Hernandez on 05-01-2024 Hematocrit (Bld) [Volume fraction] 44.4 % 40-54 [facility] Hemoglobin measurementOrdere d By: Danielle Hernandez on 05-01-2024 Hemoglobin (Bld) [Mass/Vol] 14.6 g/dL 13.0-16.5 [facility] Immature granulocytes/100 WB C Auto (Bld)Ordered By: Danielle Hernandez on 05-01-2024 Immature granulocytes/100 WBC (Bld) 0.300 % 0.0-0.9 [facility] Comment on above: IG% - Immature Granu locytes (promyelocytes, myelocytes and metamyelocytes) > 1% indicates that a LEFT SHIFT is Present. Lymphocytes Auto (Unsp spec) [#/Vol]Ordered By: Danielle Hernandez on 05-01-2024 Lymphocytes (Bld) [#/Vol] 1.47 10*3/uL 0.83-4.51 [facility] Lymphocytes/100 WBC Auto (Un sp spec)Ordered By: Danielle Hernandez on 05-01-2024 Lymphocytes/100 WBC (Bld) 19.3 % 19-41 [facility] MCV (mean corpuscular volume ) determinationOrdered By: Danielle Hernandez on 05-01-2024 MCV (RBC) [Entitic vol] 100.9 fL High 80-94 [facility] Mean corpuscular hemoglobin (MCH) determinationOrdered By: Danielle Hernandez on 05-01-2024 MCH (RBC) [Entitic mass] 33.2 pg High 27.0-32.0 [facility] Mean corpuscular hemoglobin concentration (MCHC) determinationOrdered By: Danielle Hernandez on 05-01-2024 MCHC (RBC) [Mass/Vol] 32.9 g/dL 32-36 [facility] Mean platelet volume determi nationOrdered By: Danielle Hernandez on 05-01-2024 Platelet mean volume (Bld) [Entitic vol] 12.1 fL High 6.2-12.0 [facility] Monocyte percentageOrdered B y: Danielle Hernandez on 05-01-2024 Monocytes/100 WBC (Bld) 7.6 % 0-10 [facility] Neutrophil percentageOrdered By: Danielle Hernandez on 05-01-2024 Neutrophils/100 WBC (Bld) 69.9 % 47-70 [facility] Nucleated red blood cell per centageOrdered By: Danielle Hernandez on 05-01-2024 Nucleated RBC/100 WBC (Bld) [Ratio] 0 % 0-5 [facility] Platelet countOrdered By: Jair Hernandez on 05-01-2024 Platelets (Bld) [#/Vol] 105 10*3/uL Low 150-450 [facility] Potassium measurementOrdered By: Danielle Hernandez on 05-01-2024 Potassium [Moles/Vol] 4.6 mmol/L 3.5-5.1 [facility] RBC Auto (Bld) [#/Vol]Ordere d By: Danielle Hernandez on 05-01-2024 RBC (Bld) [#/Vol] 4.40 10*6/uL Low 4.6-6.2 [facility] Serum anion gap measurementO rdered By: Danielle Hernandez on 05-01-2024 Anion gap [Moles/Vol] 7 mmol/L 5-15 [facility] Serum or plasma calcium cr urement (mass/volume)Ordered By: Danielle Hernandez on 05-01-2024 Calcium [Mass/Vol] 9.4 mg/dL 8.5-10.1 [facility] Serum or plasma creatinine m easurement (mass/volume)Ordered By: Danielle Hernandez on 05-01-2024 Creatinine [Mass/Vol] 1.15 mg/dL 0.70-1.30 [facility] Comment on above: The validity of the calculated GFR & GFRAA in patients over 70 years has not been determined. Clinical correlation is essential. Serum or plasma urea nitroge n measurement (mass/volume)Ordered By: Danielle Hernandez on 05-01-2024 Urea nitrogen [Mass/Vol] 39 mg/dL High 7-18 [facility] Sodium levelOrdered By: Karen Hernandez on 05-01-2024 Sodium [Moles/Vol] 133 mmol/L Low 136-145 [facility] White blood cell (WBC) count Ordered By: Danielle Hernandez on 05-01-2024 WBC (Bld) [#/Vol] 7.6 10*3/uL 4.4-11.0 [facility] Bilirubin directOrdered By: Danielle Hernandez on 03-31-2024 Bilirubin.direct [Mass/Vol] 0.12 mg/dL 0.00-0.30 [facility] Bilirubin, totalOrdered By: Danielle Hernandez on 03-31-2024 Bilirubin [Mass/Vol] 0.50 mg/dL 0.20-1.00 [facility] Comment on above: For patients on eltr ombopag therapy, use of Dimension [place] TBIL is not recommended. Blood urea nitrogen (BUN)/cr eatinine ratioOrdered By: Danielle Hernandez on 03-31-2024 Urea nitrogen/Creatinine [Mass ratio] 34.5 mg/mg High 10-20 [facility] Carbon dioxide measurementOr dered By: Danielle Hernandez on 03-31-2024 CO2 [Moles/Vol] 24.0 mmol/L 21.0-32.0 [facility] Chloride measurementOrdered By: Danielle Hernandez on 03-31-2024 Chloride [Moles/Vol] 104 mmol/L 98-107 [facility] Estimated glomerular filtrat ion rate (GFR) AmericanOrdered By: Danielle Hernandez on 03-31-2024 Estimated GFR (MDRD) Amer 82 mL/min >60 [facility] Comment on above: GFR Calc Glomerular filtration rate ( GFR) estimationOrdered By: Danielle Hernandez on 03-31-2024 Estimated GFR (MDRD) Non-Af Amer 68 mL/min >60 [facility] Comment on above: Non- GFR Calc GFR/1.73 sq M.predicted among non-blacks MDRD (S/P/Bld) [Vol rate/Area] 68 mL/min/{1.73_m2} >60 [facility] Comment on above: Non- GFR Calc Glucose measurementOrdered B y: Danielle Hernandez on 03-31-2024 Glucose [Mass/Vol] 109 mg/dL High 74-106 [facility] Comment on above: Fasting Glucose resu lt from 100 to 125 mg/dL suggests IMPAIRED HOMEOSTASIS per A.D.A. criteria. Laboratory - Chemistry and C hemistry - challengeOrdered By: Danielle Hernandez on 03-31-2024 AST [Catalytic activity/Vol] 13 U/L Low 15-37 [facility] Potassium measurementOrdered By: Danielle Hernandez on 03-31-2024 Potassium [Moles/Vol] 4.7 mmol/L 3.5-5.1 [facility] Serum anion gap measurementO rdered By: Danielle Hernandez on 03-31-2024 Anion gap [Moles/Vol] 7 mmol/L 5-15 [facility] Serum globulin measurementOr dered By: Danielle Hernandez on 03-31-2024 Globulin (S) [Mass/Vol] 3.2 g/dL 2.2-4.2 [facility] Serum or plasma alanine jackson otransferase (ALT) measurementOrdered By: Danielle Hernandez on 03-31-2024 ALT [Catalytic activity/Vol] 18 U/L 16-61 [facility] Serum or plasma albumin cr urement (mass/volume)Ordered By: Danielle Sengandresmarjan on 03-31-2024 Albumin [Mass/Vol] 3.1 g/dL Low 3.2-5.0 [facility] Serum or plasma alkaline abena sphatase measurementOrdered By: Jairconstantintanocorey Ellsworthandresmarjan on 03-31-2024 ALP [Catalytic activity/Vol] 166 U/L High 45-117 [facility] Serum or plasma calcium cr urement (mass/volume)Ordered By: Jairconstantinyovany Sengandresmarjan on 03-31-2024 Calcium [Mass/Vol] 9.1 mg/dL 8.5-10.1 [facility] Serum or plasma creatinine m easurement (mass/volume)Ordered By: Jairconstantintanocorey Ellsworthandresmarjan on 03-31-2024 Creatinine [Mass/Vol] 1.10 mg/dL 0.70-1.30 [facility] Comment on above: The validity of the calculated GFR & GFRAA in patients over 70 years has not been determined. Clinical correlation is essential. Serum or plasma urea nitroge n measurement (mass/volume)Ordered By: Jairblanca Hernandez on 03-31-2024 Urea nitrogen [Mass/Vol] 38 mg/dL High 7-18 [facility] Sodium levelOrdered By: Karen yovany Daivd on 03-31-2024 Sodium [Moles/Vol] 135 mmol/L Low 136-145 [facility] Total proteinOrdered By: Abdulaziz tapiacorey Hernandez on 03-31-2024 Protein [Mass/Vol] 6.3 g/dL Low 6.4-8.2 [facility] Absolute neutrophil countOrd ered By: Jairblanca Hernandez on 03-30-2024 Neutrophils (Bld) [#/Vol] 7.1 10*3/uL 2.0-7.7 [facility] Basophil percentageOrdered B y: Danielle Hernandez on 03-30-2024 Basophils/100 WBC (Bld) 0.3 % 0-1 [facility] Eosinophil percentageOrdered By: Jairconstantintanocorey Hernandez on 03-30-2024 Eosinophils/100 WBC (Bld) 3.5 % 0-5 [facility] Erythrocyte distribution wid th ratioOrdered By: Danielle Hernandez on 03-30-2024 Erythrocyte distribution width (RBC) [Ratio] 15.1 % High 11.6-14.6 [facility] Erythrocyte distribution wid th standard deviationOrdered By: constantinsuttoncorey Ellsworthmarjan on 03-30-2024 Erythrocyte distribution width (RBC) [Entitic vol] 57.1 fL High 35.1-43.9 [facility] Hematocrit Auto (Bld) [Volum e fraction]Ordered By: constantinsuttoncorey Hernandez on 03-30-2024 Hematocrit (Bld) [Volume fraction] 46.2 % 40-54 [facility] Hemoglobin A1c percentageOrd ered By: constantinsuttoncorey Hernandez on 03-30-2024 HbA1c (Bld) [Mass fraction] 6.4 % High 3.8-5.6 [facility] Comment on above: Normal < 5.7 % Predi abetic 5.7 - 6.4 % Diabetic >or= 6.5 % Please note range changes. Hemoglobin measurementOrdere d By: constantinsuttoncorey Hernandez on 03-30-2024 Hemoglobin (Bld) [Mass/Vol] 15.3 g/dL 13.0-16.5 [facility] Immature granulocytes/100 WB C Auto (Bld)Ordered By: blanca Hernandez on 03-30-2024 Immature granulocytes/100 WBC (Bld) 0.400 % 0.0-0.9 [facility] Comment on above: IG% - Immature Granu locytes (promyelocytes, myelocytes and metamyelocytes) > 1% indicates that a LEFT SHIFT is Present. Lymphocytes Auto (Unsp spec) [#/Vol]Ordered By: constantinsuttoncorey Hernandez on 03-30-2024 Lymphocytes (Bld) [#/Vol] 1.13 10*3/uL 0.83-4.51 [facility] Lymphocytes/100 WBC Auto (Un sp spec)Ordered By: blanca Ellsworthmarjan on 03-30-2024 Lymphocytes/100 WBC (Bld) 12.3 % Low 19-41 [facility] MCV (mean corpuscular volume ) determinationOrdered By: Danielle Hernandez on 03-30-2024 MCV (RBC) [Entitic vol] 102.2 fL High 80-94 [facility] Mean corpuscular hemoglobin (MCH) determinationOrdered By: Danielle Hernandez on 03-30-2024 MCH (RBC) [Entitic mass] 33.8 pg High 27.0-32.0 [facility] Mean corpuscular hemoglobin concentration (MCHC) determinationOrdered By: Danielle Hernandez on 03-30-2024 MCHC (RBC) [Mass/Vol] 33.1 g/dL 32-36 [facility] Mean platelet volume determi nationOrdered By: Danielle Hernandez on 03-30-2024 Platelet mean volume (Bld) [Entitic vol] 12.7 fL High 6.2-12.0 [facility] Monocyte percentageOrdered B y: Danielle Hernandez on 03-30-2024 Monocytes/100 WBC (Bld) 6.7 % 0-10 [facility] Neutrophil percentageOrdered By: Danielle Hernandez on 03-30-2024 Neutrophils/100 WBC (Bld) 76.8 % High 47-70 [facility] Nucleated red blood cell per centageOrdered By: Danielle Hernandez on 03-30-2024 Nucleated RBC/100 WBC (Bld) [Ratio] 0 % 0-5 [facility] Platelet countOrdered By: Jair Hernandez on 03-30-2024 Platelet Count Not Reportable [facility] Platelets LM Ql (Bld)Ordered By: Danielle Hernandez on 03-30-2024 Platelet Estimate MOD DEC ADEQ [facility] Polychromasia LM Ql (Bld)Ord ered By: Danielle Hernandez on 03-30-2024 Polychromasia 1+ [facility] RBC Auto (Bld) [#/Vol]Ordere d By: Danielle Hernandez on 03-30-2024 RBC (Bld) [#/Vol] 4.52 10*6/uL Low 4.6-6.2 [facility] White blood cell (WBC) count Ordered By: Danielle Hernandez on 03-30-2024 WBC (Bld) [#/Vol] 9.2 10*3/uL 4.4-11.0 [facility] MR/BMS.BVSon 03-06-2024 MR/BMS.BVS [facility] Vascular Surgery [address] [place] [address] OFFICE VISIT Date of Service: 03/06/24 MR#: [id number] Acct: [id number] Name: MICK COTTRELL Rep #: [id number] : 1940 Provider: ADRIANNA Cerda Age/Sex: 83/M Location: [facility] Status: Signed Intake Vital Signs 03/04/24 13:09 03/06/24 11:25 Height 5 ft 11 in BP 118/68 Blood Pressure Location Rt brachial Position Sitting Respiration 16 Pulse 75 Pulse Source Auscultation Temp 97.5 F L Temp Source Temporal Intake Visit Reasons: 4-6 WK FU Is patient in pain?: No Allergies Penicillins Allergy (Severe, Verified 03/06/24 11:26) Anaphylaxis Medications ???Medication ???Instructions ???Recorded ???Confirmed ???Type atorvastatin 40 mg tablet 40 mg PO QHS 04/22/23 03/06/24 History finasteride 5 mg tablet 5 mg PO DAILY 04/22/23 03/06/24 History montelukast 10 mg tablet 10 mg PO QHS 04/22/23 03/06/24 History (Singulair) sertraline 50 mg tablet 50 mg PO DAILY 04/22/23 03/06/24 History metformin 1,000 mg tablet 1,000 mg PO DAILY 04/24/23 03/06/24 History potassium chloride 10 mEq 20 meq PO DAILY 04/24/23 03/06/24 History capsule,extended release metoprolol tartrate 25 mg tablet 25 mg PO BID #60 tabs 05/02/23 03/06/24 Rx aspirin 81 mg chewable tablet 81 mg PO QDAY 02/05/24 03/06/24 History empagliflozin 25 mg tablet 25 mg PO QAM 02/05/24 02/05/24 History fexofenadine 180 mg tablet 180 mg PO DAILY PRN 02/05/24 03/06/24 History (Boby Nunez) spironolactone 25 mg tablet 25 mg PO QDAY 02/05/24 03/06/24 History Have you fallen in the past year?: Yes PFSH Medical History Neuropathy Osteoarthritis GERD (gastroesophageal reflux disease) SANJU (obstructive sleep apnea) COVID-19 ( 02/2020) Dysphagia SDH (subdural hematoma) Fracture of thumb, left, closed History of fall Thrombophilia Nonrheumatic aortic (valve) stenosis Pulmonary nodule CAD (coronary artery disease) Major depression Cognitive impairment BPH (benign prostatic hyperplasia) Migraine headache Pulmonary embolism Diastolic heart failure with preserved ejection fraction CVA (cerebral vascular accident) History of TIA (transient ischemic attack) and stroke COPD (chronic obstructive pulmonary disease) Bladder cancer Paroxysmal atrial fibrillation Hyperlipidemia Diabetes mellitus Mitral valve problem Hx of stroke associated with blood clotting tendency HTN (hypertension) High cholesterol History of prostate cancer Surgical History Hx of nasal septoplasty Hx of tonsillectomy Hx laparoscopic cholecystectomy Hx of bilateral cataract extraction History of thoracotomy History of carpal tunnel release of both wrists History of transurethral resection of bladder tumor (TURBT) History of loop recorder H/O aortic valve replacement ( 09/08/10) Family History Mother Heart disease Hypertension Breast cancer Father Hypertension Diabetes Social History Smoking Status: Former smoker Smokeless tobacco user: chewing tobacco alcohol intake: never substance use type: does not use caffeine: Yes Type: coffee HPI HPI HPI: MICK COTTRELL, is a 83 M who presents to the office today for follow-up of his left great toe wound in the setting of PAD and diabetes. He is accompanied to his appointment today by his son who helps with his care. This wound has been present since late November 2023. He continues to follow with Dr. Luna for wound care. He reports that he has continued to see slow but positive progress towards healing, certainly no worse. No recent infections. No new LLE pain/claudication, swelling. No history of prior revascularization. He is diabetic. Ordered LEAS at last OV, this has not yet been completed. ROS General General: Yes weakness; No weight change, appetite, fatigue, colon cancer or breast cancer HEENT HEENT: No difficulty swallowing, eye injury, eye surgery, swollen glands or hoarseness Endo Endocrine: Yes diabetes mellitus; No thyroid disease, thyroid cancer, Hair loss, heat intolerance or cold intolerance Skin Skin: No rash or changing moles Musc Musculoskeletal: No back problems, arthritis, rheumatoid arthritis, gout or joint pain Cardio Cardiovascular: No murmur, pacemaker, heart disease, atrial fibrillation, high blood pressure, heart attack, heart stent, palpitations, shortness of breat with exertion or chest pain Psych Psychiatric: No depression, anxiety or hearing voices Resp Respiratory: Yes shortness of breath, Yes sleep apnea, No cough, Yes COPD, No asthma, No emphysema and (more content not included)... Normal [facility] Absolute neutrophil countOrd ered By: Danielle Hernandez on 02-28-2024 Neutrophils (Bld) [#/Vol] 6.7 10*3/uL 2.0-7.7 [facility] Basophil percentageOrdered B y: Danielle Hernandez on 02-28-2024 Basophils/100 WBC (Bld) 0.4 % 0-1 [facility] Blood urea nitrogen (BUN)/cr eatinine ratioOrdered By: Danielle Hernandez on 02-28-2024 Urea nitrogen/Creatinine [Mass ratio] 34.5 mg/mg High 10-20 [facility] Carbon dioxide measurementOr dered By: Danielle Heranndez on 02-28-2024 CO2 [Moles/Vol] 21.0 mmol/L 21.0-32.0 [facility] Chloride measurementOrdered By: Danielle Hernandez on 02-28-2024 Chloride [Moles/Vol] 105 mmol/L 98-107 [facility] Eosinophil percentageOrdered By: Danielle Hernandez on 02-28-2024 Eosinophils/100 WBC (Bld) 2.7 % 0-5 [facility] Erythrocyte distribution wid th ratioOrdered By: Danielle Hernandez on 02-28-2024 Erythrocyte distribution width (RBC) [Ratio] 15.1 % High 11.6-14.6 [facility] Erythrocyte distribution wid th standard deviationOrdered By: Danielle Hernandez on 02-28-2024 Erythrocyte distribution width (RBC) [Entitic vol] 56.3 fL High 35.1-43.9 [facility] Estimated glomerular filtrat ion rate (GFR) AmericanOrdered By: Danielle Hernandez on 02-28-2024 Estimated GFR (MDRD) Amer 80 mL/min >60 [facility] Comment on above: GFR Calc Glomerular filtration rate ( GFR) estimationOrdered By: Danielle Hernandez on 02-28-2024 Estimated GFR (MDRD) Non-Af Amer 66 mL/min >60 [facility] Comment on above: Non- GFR Calc Glucose measurementOrdered B y: Danielle Hernandez on 02-28-2024 Glucose [Mass/Vol] 108 mg/dL High 74-106 [facility] Comment on above: Fasting Glucose resu lt from 100 to 125 mg/dL suggests IMPAIRED HOMEOSTASIS per A.D.A. criteria. Hematocrit Auto (Bld) [Volum e fraction]Ordered By: Danielle Hernandez on 02-28-2024 Hematocrit (Bld) [Volume fraction] 47.7 % 40-54 [facility] Hemoglobin measurementOrdere d By: Danielle Hernandez on 02-28-2024 Hemoglobin (Bld) [Mass/Vol] 15.9 g/dL 13.0-16.5 [facility] High density lipoprotein (HD L) measurementOrdered By: Danielle Hernandez on 02-28-2024 Cholesterol in HDL [Mass/Vol] 29 mg/dL Low >40 [facility] Comment on above: The drugs N-Acetylcy steine and Metamizole may falsely depress this assay. Reference Range HDL <40 mg/dL Low HDL Cholesterol HDL >or= 60 mg/dL High HDL Cholesterol Immature granulocytes/100 WB C Auto (Bld)Ordered By: Danielle Hernandez on 02-28-2024 Immature granulocytes/100 WBC (Bld) 0.600 % 0.0-0.9 [facility] Comment on above: IG% - Immature Granu locytes (promyelocytes, myelocytes and metamyelocytes) > 1% indicates that a LEFT SHIFT is Present. Low density lipoprotein (LDL ) cholesterol measurementOrdered By: Danielle Hernandez on 02-28-2024 Cholesterol in LDL [Mass/Vol] 44 mg/dL 0-130 [facility] Lymphocytes Auto (Unsp spec) [#/Vol]Ordered By: Danielle Hernandez on 02-28-2024 Lymphocytes (Bld) [#/Vol] 1.34 10*3/uL 0.83-4.51 [facility] Lymphocytes/100 WBC Auto (Un sp spec)Ordered By: Danielle Hernandez on 02-28-2024 Lymphocytes/100 WBC (Bld) 14.8 % Low 19-41 [facility] MCV (mean corpuscular volume ) determinationOrdered By: Danielle Hernandez on 02-28-2024 MCV (RBC) [Entitic vol] 100.8 fL High 80-94 [facility] Mean corpuscular hemoglobin (MCH) determinationOrdered By: blanca Hernandez on 02-28-2024 MCH (RBC) [Entitic mass] 33.6 pg High 27.0-32.0 [facility] Mean corpuscular hemoglobin concentration (MCHC) determinationOrdered By: Danielle Hernandez on 02-28-2024 MCHC (RBC) [Mass/Vol] 33.3 g/dL 32-36 [facility] Mean platelet volume determi nationOrdered By: Danielle Hernandez on 02-28-2024 Platelet mean volume (Bld) [Entitic vol] 11.8 fL 6.2-12.0 [facility] Monocyte percentageOrdered B y: Danielle Hernandez on 02-28-2024 Monocytes/100 WBC (Bld) 7.6 % 0-10 [facility] Neutrophil percentageOrdered By: Danielle Hernandez on 02-28-2024 Neutrophils/100 WBC (Bld) 73.9 % High 47-70 [facility] Nucleated red blood cell per centageOrdered By: Danielle Hernandez on 02-28-2024 Nucleated RBC/100 WBC (Bld) [Ratio] 0 % 0-5 [facility] Platelet countOrdered By: Jair Hernandez on 02-28-2024 Platelets (Bld) [#/Vol] 107 10*3/uL Low 150-450 [facility] Potassium measurementOrdered By: Danielle Hernandez on 02-28-2024 Potassium [Moles/Vol] 5.0 mmol/L 3.5-5.1 [facility] RBC Auto (Bld) [#/Vol]Ordere d By: Danielle Hernandez on 02-28-2024 RBC (Bld) [#/Vol] 4.73 10*6/uL 4.6-6.2 [facility] Serum anion gap measurementO rdered By: Danielle Hernandez on 02-28-2024 Anion gap [Moles/Vol] 9 mmol/L 5-15 [facility] Serum or plasma calcium cr urement (mass/volume)Ordered By: Danielle Hernandez on 02-28-2024 Calcium [Mass/Vol] 9.1 mg/dL 8.5-10.1 [facility] Serum or plasma cholesterol measurement (mass/volume)Ordered By: Danielle Hernandez on 02-28-2024 Cholesterol [Mass/Vol] 97 mg/dL <200 [facility] Comment on above: <200 mg/dL Desirable 200-240 mg/dL Borderline >240 mg/dL High Risk Serum or plasma creatinine m easurement (mass/volume)Ordered By: Danielle Hernandez on 02-28-2024 Creatinine [Mass/Vol] 1.13 mg/dL 0.70-1.30 [facility] Comment on above: The validity of the calculated GFR & GFRAA in patients over 70 years has not been determined. Clinical correlation is essential. Serum or plasma urea nitroge n measurement (mass/volume)Ordered By: Danielle Hernandez on 02-28-2024 Urea nitrogen [Mass/Vol] 39 mg/dL High 7-18 [facility] Sodium levelOrdered By: Karen Hernandez on 02-28-2024 Sodium [Moles/Vol] 135 mmol/L Low 136-145 [facility] Triglycerides measurementOrd ered By: Danielle Hernandez on 02-28-2024 Triglyceride [Mass/Vol] 119 mg/dL <199 [facility] Comment on above: The drugs N-Acetylcy steine and Metamizole may falsely depress this assay.Serum Triglycerides Reference Interval Normal <150 mg/dL Borderline high 150 - 199 mg/dL High 200 - 499 mg/dL Very High > or = 500 mg/dL Very low density lipoprotein (VLDL) cholesterol measurementOrdered By: Danielle Hernandez on 02-28-2024 VLDL Cholesterol 24 mg/dL 5-40 [facility] White blood cell (WBC) count Ordered By: Danielle Hernandez on 02-28-2024 WBC (Bld) [#/Vol] 9.1 10*3/uL 4.4-11.0 [facility] MR/BMS.Pavithra 02-05-2024 MR/BMS.RIDDHIS [facility] Vascular Surgery [address] [place] [address] OFFICE VISIT Date of Service: 02/05/24 MR#: [id number] Acct: [id number] Name: MICK COTTRELL Rep #: [id number] : 1940 Provider: ADRIANNA Cerda Age/Sex: 83/M [place] [facility] Status: Signed Intake Vital Signs 10/01/23 13:08 02/05/24 11:22 Height 5 ft 11 in Weight: 181 lb BP 118/67 Blood Pressure Location Lt brachial Position Sitting Respiration 16 Pulse 65 Pulse Source Monitor Temp 97.3 F L Temp Source Temporal Intake Visit Reasons: NONHEALING FOOT WOUND Chief Complaint: establish care Is patient in pain?: Yes Allergies Penicillins Allergy (Severe, Verified 02/05/24 11:24) Anaphylaxis Medications ???Medication ???Instructions ???Recorded ???Confirmed ???Type atorvastatin 40 mg tablet 40 mg PO QHS 04/22/23 02/05/24 History finasteride 5 mg tablet 5 mg PO DAILY 04/22/23 02/05/24 History montelukast 10 mg tablet 10 mg PO QHS 04/22/23 02/05/24 History (Singulair) oxybutynin chloride 5 mg 5 mg PO DAILY 04/22/23 02/05/24 History tablet,extended release 24 hr sertraline 50 mg tablet 50 mg PO DAILY 04/22/23 02/05/24 History metformin 1,000 mg tablet 1,000 mg PO DAILY 04/24/23 02/05/24 History potassium chloride 10 mEq 20 meq PO DAILY 04/24/23 02/05/24 History capsule,extended release metoprolol tartrate 25 mg tablet 25 mg PO BID #60 tabs 05/02/23 02/05/24 Rx aspirin 81 mg chewable tablet 81 mg PO QDAY 02/05/24 02/05/24 History empagliflozin 25 mg tablet 25 mg PO QAM 02/05/24 02/05/24 History fexofenadine 180 mg tablet 180 mg PO DAILY PRN 02/05/24 02/05/24 History (Boby Nunez) spironolactone 25 mg tablet 25 mg PO QDAY 02/05/24 02/05/24 History Have you fallen in the past year?: Yes PFSH Medical History Neuropathy Osteoarthritis GERD (gastroesophageal reflux disease) SANJU (obstructive sleep apnea) COVID-19 ( 02/2020) Dysphagia SDH (subdural hematoma) Fracture of thumb, left, closed History of fall Thrombophilia Nonrheumatic aortic (valve) stenosis Pulmonary nodule CAD (coronary artery disease) Major depression Cognitive impairment BPH (benign prostatic hyperplasia) Migraine headache Pulmonary embolism Diastolic heart failure with preserved ejection fraction CVA (cerebral vascular accident) History of TIA (transient ischemic attack) and stroke COPD (chronic obstructive pulmonary disease) Bladder cancer Paroxysmal atrial fibrillation Hyperlipidemia Diabetes mellitus Mitral valve problem Hx of stroke associated with blood clotting tendency HTN (hypertension) High cholesterol History of prostate cancer Surgical History Hx of nasal septoplasty Hx of tonsillectomy Hx laparoscopic cholecystectomy Hx of bilateral cataract extraction History of thoracotomy History of carpal tunnel release of both wrists History of transurethral resection of bladder tumor (TURBT) History of loop recorder H/O aortic valve replacement ( 09/08/10) Family History Mother Heart disease Hypertension Breast cancer Father Hypertension Diabetes Social History Smoking Status: Former smoker Smokeless tobacco user: chewing tobacco alcohol intake: never substance use type: does not use caffeine: Yes Type: coffee HPI HPI HPI: MICK COTTRELL, is a 83 M who presents to the office today for evaluation of left great toe wound in the setting of PAD as referred from [facility]. He is accompanied to his appointment today by his son who helps with his care. Notes from [facility] available for review. He has a wound in the interdigital aspect of his left great toe. It appears this wound was first noted approximately 5 weeks ago. He did initially have an infection which was treated with oral antibiotics and since then patient and son both report that they have seen positive albeit slow progress in the wound. He follows with podiatry Dr. Luna. Wound care includes application of Betadine and dry dressing. He has not had any recurrent infection, new redness/swelling. He denies any rest pain. He denies claudication though he typically only ambulates very short distances. He denies any prior history of revascularization procedures, similar wounds, or VTE. He is a former smoker, quit over 30 years ago. He is diabetic, uncertain level of control. He did have an arterial study completed at [facility] which reports the following: "DIMITRIS right 0.6, moderate claudication range; DIMITRIS left not detectable with no systolic pressure detected at the ankle; waveforms on the right multiphasic through the right PT but absen (more content not included)... Normal [facility] Basophil percentageOrdered B y: Diandra Abdi on 07-01-2023 Potassium [Moles/Vol] 3.1 mmol/L 3.5-5.1 [facility] Absolute lymphocyte countOrd ered By: Danielle Hernandez on 06-28-2023 Lymphocytes Auto (Unsp spec) [#/Vol] 0.95 10*3/uL 0.83-4.51 [facility] Automated lymphocyte count a s percentage of total leukocytesOrdered By: Danielle Hernandez on 06-28-2023 Lymphocytes/100 WBC Auto (Unsp spec) 12.1 % 19-41 [facility] Basophil percentageOrdered B y: Danielle Hernandez on 06-28-2023 Basophils/100 WBC (Bld) 0.4 % 0-1 [facility] Chloride [Moles/Vol] 102 mmol/L 98-107 [facility] Eosinophils/100 WBC (Bld) 2.5 % 0-5 [facility] Glucose [Mass/Vol] 128 mg/dL 74-106 [facility] Comment on above: Fasting Glucose resu lt greater than or equal to 126 mg/dL suggests DIABETES MELLITUS per A.D.A. criteria. Hemoglobin (Bld) [Mass/Vol] 13.7 g/dL 13.0-16.5 [facility] Monocytes/100 WBC (Bld) 7.3 % 0-10 [facility] Neutrophils (Bld) [#/Vol] 6.1 10*3/uL 2.0-7.7 [facility] Neutrophils/100 WBC (Bld) 77.3 % 47-70 [facility] Potassium [Moles/Vol] 3.1 mmol/L 3.5-5.1 [facility] Sodium [Moles/Vol] 140 mmol/L 136-145 [facility] WBC (Bld) [#/Vol] 7.9 10*3/uL 4.4-11.0 [facility] Determination of erythrocyte mean corpuscular volume (MCV)Ordered By: Danielle Hernandez on 06-28-2023 MCV (RBC) [Entitic vol] 96.7 fL 80-94 [facility] Erythrocyte distribution wid th ratioOrdered By: [facility] Sengmarjan on 06-28-2023 Erythrocyte distribution width (RBC) [Ratio] 15.7 % 11.6-14.6 [facility] Erythrocyte distribution wid th standard deviationOrdered By: [facility] Sengmarjan on 06-28-2023 Erythrocyte distribution width (RBC) [Entitic vol] 55.1 fL 35.1-43.9 [facility] Hematocrit Auto (Bld) [Volum e fraction]Ordered By: Karensuttoncorey Hernandez on 06-28-2023 Hematocrit (Bld) [Volume fraction] 41.3 % 40-54 [facility] Immature granulocytes/100 WB C Auto (Bld)Ordered By: constantinsuttoncorey Hernandez on 06-28-2023 Immature granulocytes/100 WBC (Bld) 0.400 % 0.0-0.9 [facility] Comment on above: IG% - Immature Granu locytes (promyelocytes, myelocytes and metamyelocytes) > 1% indicates that a LEFT SHIFT is Present. Laboratory - Chemistry and C hemistry - challengeOrdered By: Danielle Hernandez on 06-28-2023 CO2 [Moles/Vol] 32.0 mmol/L 21.0-32.0 [facility] Urea nitrogen/Creatinine [Mass ratio] 12.0 mg/mg 10-20 [facility] Laboratory - Hematology and Cell countsOrdered By: Danielle Hernandez on 06-28-2023 MCH (RBC) [Entitic mass] 32.1 pg 27.0-32.0 [facility] MCHC (RBC) [Mass/Vol] 33.2 g/dL 32-36 [facility] Nucleated RBC/100 WBC (Bld) [Ratio] 0 % 0-5 [facility] Platelet mean volume (Bld) [Entitic vol] 11.5 fL 6.2-12.0 [facility] Platelets (Bld) [#/Vol] 122 10*3/uL 150-450 [facility] No Panel InformationOrdered By: Danielle Hernandez on 06-28-2023 Estimated GFR (MDRD) Amer 84 mL/min >60 [facility] Comment on above: GFR Calc Estimated GFR (MDRD) Non-Af Amer 69 mL/min >60 [facility] Comment on above: Non- GFR Calc RBC Auto (Bld) [#/Vol]Ordere d By: Danielle Hernandez on 06-28-2023 RBC (Bld) [#/Vol] 4.27 10*6/uL 4.6-6.2 [facility] Serum or plasma calcium cr urement (mass/volume)Ordered By: Danielle Hernandez on 06-28-2023 Calcium [Mass/Vol] 8.9 mg/dL 8.5-10.1 [facility] Serum or plasma creatinine m easurement (mass/volume)Ordered By: Danielle Hernandez on 06-28-2023 Creatinine [Mass/Vol] 1.08 mg/dL 0.70-1.30 [facility] Comment on above: The validity of the calculated GFR & GFRAA in patients over 70 years has not been determined. Clinical correlation is essential. Serum or plasma urea nitroge n measurement (mass/volume)Ordered By: constantinsuttoncorey Cuevasmarjan on 06-28-2023 Urea nitrogen [Mass/Vol] 13 mg/dL 7-18 [facility] Thin prep Papanicolaou smear with manual screeningOrdered By: [facility] Sengandresmarjan on 06-28-2023 Thin prep Papanicolaou smear with manual screening 6 5-15 [facility] Basophil percentageOrdered B y: [facility] Sengmarjan on 06-26-2023 Potassium [Moles/Vol] 2.8 mmol/L 3.5-5.1 [facility] Absolute lymphocyte countOrd ered By: [facility] Sengmarjan on 05-24-2023 Lymphocytes Auto (Unsp spec) [#/Vol] 0.91 10*3/uL 0.83-4.51 [facility] Automated lymphocyte count a s percentage of total leukocytesOrdered By: [facility] Sengmarjan on 05-24-2023 Lymphocytes/100 WBC Auto (Unsp spec) 9.5 % 19-41 [facility] Basophil percentageOrdered B y: [facility] Sengmarjan on 05-24-2023 Basophils/100 WBC (Bld) 0.3 % 0-1 [facility] Chloride [Moles/Vol] 99 mmol/L 98-107 [facility] Eosinophils/100 WBC (Bld) 1.2 % 0-5 [facility] Glucose [Mass/Vol] 145 mg/dL 74-106 [facility] Comment on above: Fasting Glucose resu lt greater than or equal to 126 mg/dL suggests DIABETES MELLITUS per A.D.A. criteria. Hemoglobin (Bld) [Mass/Vol] 14.4 g/dL 13.0-16.5 [facility] Monocytes/100 WBC (Bld) 7.1 % 0-10 [facility] Neutrophils (Bld) [#/Vol] 7.8 10*3/uL 2.0-7.7 [facility] Neutrophils/100 WBC (Bld) 81.4 % 47-70 [facility] Potassium [Moles/Vol] 3.2 mmol/L 3.5-5.1 [facility] Sodium [Moles/Vol] 136 mmol/L 136-145 [facility] WBC (Bld) [#/Vol] 9.6 10*3/uL 4.4-11.0 [facility] Determination of erythrocyte mean corpuscular volume (MCV)Ordered By: Danielle Hernandez on 05-24-2023 MCV (RBC) [Entitic vol] 96.0 fL 80-94 [facility] Erythrocyte distribution wid th ratioOrdered By: [facility] Hernandez on 05-24-2023 Erythrocyte distribution width (RBC) [Ratio] 15.7 % 11.6-14.6 [facility] Erythrocyte distribution wid th standard deviationOrdered By: [facility] Ellsworthmarjan on 05-24-2023 Erythrocyte distribution width (RBC) [Entitic vol] 54.4 fL 35.1-43.9 [facility] Hematocrit Auto (Bld) [Volum e fraction]Ordered By: Karensuttoncorey Hernandez on 05-24-2023 Hematocrit (Bld) [Volume fraction] 43.3 % 40-54 [facility] Immature granulocytes/100 WB C Auto (Bld)Ordered By: blanca Hernandez on 05-24-2023 Immature granulocytes/100 WBC (Bld) 0.500 % 0.0-0.9 [facility] Comment on above: IG% - Immature Granu locytes (promyelocytes, myelocytes and metamyelocytes) > 1% indicates that a LEFT SHIFT is Present. Laboratory - Chemistry and C hemistry - challengeOrdered By: Danielle Hernandez on 05-24-2023 CO2 [Moles/Vol] 33.0 mmol/L 21.0-32.0 [facility] Urea nitrogen/Creatinine [Mass ratio] 12.7 mg/mg 10-20 [facility] Laboratory - Hematology and Cell countsOrdered By: Karensuttoncorey Hernandez on 05-24-2023 MCH (RBC) [Entitic mass] 31.9 pg 27.0-32.0 [facility] MCHC (RBC) [Mass/Vol] 33.3 g/dL 32-36 [facility] Nucleated RBC/100 WBC (Bld) [Ratio] 0 % 0-5 [facility] Platelet mean volume (Bld) [Entitic vol] 11.3 fL 6.2-12.0 [facility] Platelets (Bld) [#/Vol] 173 10*3/uL 150-450 [facility] No Panel InformationOrdered By: Danielle Hernandez on 05-24-2023 Estimated GFR (MDRD) Amer 82 mL/min >60 [facility] Comment on above: GFR Calc Estimated GFR (MDRD) Non-Af Amer 68 mL/min >60 [facility] Comment on above: Non- GFR Calc RBC Auto (Bld) [#/Vol]Ordere d By: Danielle Hernandez on 05-24-2023 RBC (Bld) [#/Vol] 4.51 10*6/uL 4.6-6.2 [facility] Serum or plasma calcium cr urement (mass/volume)Ordered By: Danielle Hernandez on 05-24-2023 Calcium [Mass/Vol] 9.6 mg/dL 8.5-10.1 [facility] Serum or plasma creatinine m easurement (mass/volume)Ordered By: Danielle Hernandez on 05-24-2023 Creatinine [Mass/Vol] 1.10 mg/dL 0.70-1.30 [facility] Comment on above: The validity of the calculated GFR & GFRAA in patients over 70 years has not been determined. Clinical correlation is essential. Serum or plasma urea nitroge n measurement (mass/volume)Ordered By: Danielle Hernandez on 05-24-2023 Urea nitrogen [Mass/Vol] 14 mg/dL 7-18 [facility] Thin prep Papanicolaou smear with manual screeningOrdered By: Danielle Hernandez on 05-24-2023 Thin prep Papanicolaou smear with manual screening 4 5-15 [facility] Absolute lymphocyte countOrd ered By: Diandra Abdi on 05-17-2023 Lymphocytes Auto (Unsp spec) [#/Vol] 0.82 10*3/uL 0.83-4.51 [facility] Automated lymphocyte count a s percentage of total leukocytesOrdered By: Diandra Abdi on 05-17-2023 Lymphocytes/100 WBC Auto (Unsp spec) 8.0 % 19-41 [facility] Basophil percentageOrdered B y: Diandra Abdi on 05-17-2023 Basophils/100 WBC (Bld) 0.3 % 0-1 [facility] Chloride [Moles/Vol] 103 mmol/L 98-107 [facility] Eosinophils/100 WBC (Bld) 1.1 % 0-5 [facility] Glucose [Mass/Vol] 149 mg/dL 74-106 [facility] Comment on above: Fasting Glucose resu lt greater than or equal to 126 mg/dL suggests DIABETES MELLITUS per A.D.A. criteria. Hemoglobin (Bld) [Mass/Vol] 13.8 g/dL 13.0-16.5 [facility] Monocytes/100 WBC (Bld) 7.0 % 0-10 [facility] Neutrophils (Bld) [#/Vol] 8.5 10*3/uL 2.0-7.7 [facility] Neutrophils/100 WBC (Bld) 83.0 % 47-70 [facility] Potassium [Moles/Vol] 3.6 mmol/L 3.5-5.1 [facility] Sodium [Moles/Vol] 139 mmol/L 136-145 [facility] WBC (Bld) [#/Vol] 10.3 10*3/uL 4.4-11.0 [facility] Determination of erythrocyte mean corpuscular volume (MCV)Ordered By: Diandra Abdi on 05-17-2023 MCV (RBC) [Entitic vol] 96.6 fL 80-94 [facility] Erythrocyte distribution wid th ratioOrdered By: Diandra Abdi on 05-17-2023 Erythrocyte distribution width (RBC) [Ratio] 15.7 % 11.6-14.6 [facility] Erythrocyte distribution wid th standard deviationOrdered By: Diandra Abdi on 05-17-2023 Erythrocyte distribution width (RBC) [Entitic vol] 55.3 fL 35.1-43.9 [facility] Hematocrit Auto (Bld) [Volum e fraction]Ordered By: Diandra Abdi on 05-17-2023 Hematocrit (Bld) [Volume fraction] 42.0 % 40-54 [facility] Immature granulocytes/100 WB C Auto (Bld)Ordered By: Diandra Abdi on 05-17-2023 Immature granulocytes/100 WBC (Bld) 0.600 % 0.0-0.9 [facility] Comment on above: IG% - Immature Granu locytes (promyelocytes, myelocytes and metamyelocytes) > 1% indicates that a LEFT SHIFT is Present. Laboratory - Chemistry and C hemistry - challengeOrdered By: Diandra Abdi on 05-17-2023 CO2 [Moles/Vol] 30.0 mmol/L 21.0-32.0 [facility] [facility] Urea nitrogen/Creatinine [Mass ratio] 16.6 mg/mg 10-20 [facility] - Hematology and Cell countsOrdered By: Diandra Abdi on 05-17-2023 MCH (RBC) [Entitic mass] 31.7 pg 27.0-32.0 [facility] MCHC (RBC) [Mass/Vol] 32.9 g/dL 32- [facility] Nucleated RBC/100 WBC (Bld) [Ratio] 0 % 0-5 [facility] Platelet mean volume (Bld) [Entitic vol] 11.8 fL 6.2-12.0 [facility] Platelets (Bld) [#/Vol] 145 10*3/uL 150-450 [facility] No Panel InformationOrdered By: Diandra Abdi on 05-17-2023 Estimated GFR (MDRD) Amer 96 mL/min >60 [facility] Comment on above: GFR Calc Estimated GFR (MDRD) Non-Af Amer 79 mL/min >60 [facility] Comment on above: Non- GFR Calc RBC Auto (Bld) [#/Vol]Ordere d By: Diandra Abdi on 05-17-2023 RBC (Bld) [#/Vol] 4.35 10*6/uL 4.6-6.[address] [facility] er [facility] Serum or plasma calcium cr urement (mass/volume)Ordered By: Diandra Abdi on 05-17-2023 Calcium [Mass/Vol] 9.5 mg/dL 8.5-10.1 [facility] Serum or plasma creatinine m easurement (mass/volume)Ordered By: Diandra Abdi on 05-17-2023 Creatinine [Mass/Vol] 0.96 mg/dL 0.70-1.30 [facility] Comment on above: The validity of the calculated GFR & GFRAA in patients over 70 years has not been determined. Clinical correlation is essential. Serum or plasma urea nitroge n measurement (mass/volume)Ordered By: Diandra Abdi on 05-17-2023 Urea nitrogen [Mass/Vol] 16 mg/dL 7-18 [facility] Thin prep Papanicolaou smear with manual screeningOrdered By: Diandra Abdi on 05-17-2023 Thin prep Papanicolaou smear with manual screening 6 5-15 [facility] Urine Legionella pneumophila antigen detectionOrdered By: Diandra Abdi on 05-16-2023 L. pneumophila Ag Ql (U) [facility] L. pneumophila Ag Ql (U) [facility] Bilirubin Test strip Ql (U)O rdered By: Diandra Abdi on 05-15-2023 Bilirubin Ql (U) Negative Negative [facility] Culture, urineOrdered By: Bernabe Abdi on 05-15-2023 Bacteria identified Cx Nom (U) Positive [facility] Bacteria identified Cx Nom (U) Positive [facility] Ketones Test strip Ql (U)Ord ered By: Diandra Abdi on 05-15-2023 Ketones Ql (U) Negative Negative [facility] Nitrite Test strip Ql (U)Ord ered By: Diandra Abdi on 05-15-2023 Nitrite Ql (U) Positive Negative [facility] Protein Test strip Ql (U)Ord ered By: Diandra Abdi on 05-15-2023 Protein Ql (U) 15 mg/dl Negative [facility] Urine blood detectionOrdered By: Diandra Abdi on 05-15-2023 RBC Ql (U) 10 /ul Negative [facility] Urine clarityOrdered By: Barney Abdi on 05-15-2023 Clarity (U) Sl. Cloudy Clear [facility] Urine color determinationOrd ered By: Diandra Abdi on 05-15-2023 Color (U) Yellow Yellow [facility] Urine glucose detectionOrder ed By: Diandra Abdi on 05-15-2023 Glucose Ql (U) Normal mg/dl Normal [facility] Urine leukocyte esterase det ection by dipstickOrdered By: Diandra Abdi on 05-15-2023 Leukocyte esterase Test strip Ql (U) 500 /ul Negative [facility] Urine pHOrdered By: Diandra Abdi on 05-15-2023 pH (U) 7.0 [pH] 5.0 - 8.0 [facility] Urine specific gravity measu rementOrdered By: Diandra Abdi on 05-15-2023 Specific gravity (U) [Rel density] 1.010 1.002-1.030 [facility] Urine urobilinogen measureme ntOrdered By: Diandra Abdi on 05-15-2023 Urobilinogen Ql (U) 1 mg/dl Normal [facility] CNOVon 04-30-2023 CNOV Office Visit (NEAGCLM) MICK COTTRELL ([id number]) 1940 M Date Time Provider Department 04/30/23 2:00 PM SIXTO KELLY NEAGCLM During your visit today, we recorded the following information about you: Pulse Respiration Blood pressure Weight 54/minute 16/minute 171/78 85.7 kg Height 1.753 m Sixto Kelly MD 04/30/2023 2:13 PM Signed NEUROSURGERY FOLLOW UP OFFICE NOTE Dr. Sixto Kelly MD, [facility] Date of visit: April 30, 2023 Patient Name: Mr.Thomas Cottrell Date of : 1940 Current Age: [age] year old Sex: male MRN/E# [id number] Last Office Visit: Hospital follow-up CHIEF COMPLAINT: Patient presents with: Established Patient SUBJECTIVE: The patient presents as a hospital follow-up with imaging (CT B) for evaluation. This is an 82-year-old male with a PMHx of vascular dementia, CVA, aortic valve replacement 2010 (warfarin/ASA), DM, COVID associated PE, A-fib and HTN who was seen for consult on 03/18/2023 after transfer from an outside hospital. The patient reported to his family that he had a fall at his home but stated that he only hurt his hand. The following day he appeared slightly confused during a family gathering but no other concerns. On his son went to pick him up and he was still in bed at 11:00 AM. He was having difficulty word finding along with confusion and gait impairment. He was taken to an outside hospital where imaging demonstrated an acute left-sided subdural hematoma. He was transferred to [facility] for higher acuity care. Review of imaging showed the acute SDH along the left temporal, frontal, parietal lobe with extension into the tentorium and falx. There is no edema or MLS. Anticoagulants and antiplatelets were reversed. He was placed on a short course of Keppra and monitored in the ICU. Repeat imaging remained stable and no further interventions were indicated. Recommendation was to hold all blood thinning medications and follow-up in 2 weeks from discharge with repeat CT head prompting his visit today. Since discharge she states he is overall doing well. He denies any new or concerning issues with the exception of his memory issues. He is in a memory care facility currently. . He presents for image review, evaluation and plan of care SYMPTOMS: None PREVIOUS CONSERVATIVE TREATMENTS: None SURGICAL RISK: Smoker: Unknown Diabetic: Yes Anticoagulants / Antiplatelets: Coumadin/ASA -on hold Occupation: N/A PREVIOUS SURGERY: None PAIN EVALUATION No data found in the last 1 encounters. History reviewed. No pertinent past medical history. History reviewed. No pertinent surgical history. History reviewed. No pertinent family history. ALLERGIES Allergen Reactions Penicillins Unknown Current Outpatient Medications Medication Sig Dispense Refill acetaminophen (TYLENOL) 500 mg tablet 2 tablets by ORAL/FEEDING TUBE route every 8 hours as needed for pain. atorvastatin (LIPITOR) 40 mg tablet Take 40 mg by mouth once daily. fexofenadine (BOBY HIVES) 180 mg tablet Take 180 mg by mouth once daily. finasteride (PROSCAR) 5 mg tablet Take 5 mg by mouth once daily. furosemide (LASIX) 20 mg tablet Take 20 mg by mouth two times a day. magnesium oxide (MAG-OX) 400 mg (241.3 mg magnesium) tablet Take 400 mg by mouth once daily. metFORMIN (GLUCOPHAGE) 1,000 mg tablet Take 1,000 mg by mouth daily with dinner. metoprolol tartrate, short acting, (LOPRESSOR) 50 mg tablet Take 50 mg by mouth two times a day. montelukast (SINGULAIR) 10 mg tablet Take 10 mg by mouth daily at bedtime. oxybutynin XL (DITROPAN XL) 5 mg 24 hr tablet Take 5 mg by mouth once daily. sertraline (ZOLOFT) 50 mg tablet Take 50 mg by mouth once daily. losartan (COZAAR) 100 mg tablet potassium chloride SR (MICRO-K) 10 mEq CR capsule Cholecalciferol, Vitamin D3, (VITAMIN D-3) 10 mcg (400 unit) chew Take 400 Units by mouth once daily. Chewable No current facility-administered medications for this visit. REVIEW OF SYSTEMS: Review of Systems Constitutional: Negative for chills, diaphoresis (Negative for night sweats.) and fever. HENT: Negative for ear discharge and rhinorrhea. Eyes: Negative for discharge. Respiratory: Negative for cough, shortness of breath and wheezing. Cardiovascular: Negative for chest pain, palpitations and leg swelling. Gastrointestinal: Negative for constipation, diarrhea, nausea and vomiting. Endocrine: Negative for cold intolerance and heat intolerance. Genitourinary: Negative for frequency. Negative for urinary incontinence and urinary retention. Musculoskeletal: Positive for gait problem. Negative for back pain, joint swelling, myalgias and neck pain. Skin: Negative for rash (Negative for hives and skin lesions.). Allergic/Immunologic: Negative for environmental allergies and food allergies. Negative for contact allergy (more content not included)... Normal [facility] CT BRAIN WO IVCONon 04-30-19 CT BRAIN WO IVCON * * *Final Report* * * DATE OF EXAM: Apr 30 2023 1:51PM A1C 0504 - CT BRAIN WO IVCON / PROCEDURE REASON: Subdural hematoma (HCC) * * * * Physician Interpretation * * * * EXAMINATION: CT BRAIN IV CONTRAST CLINICAL HISTORY: Subdural hematoma. TECHNIQUE: Serial axial images without IV contrast were obtained from the vertex to the foramen magnum. MQ: [id number] CT Radiation dose: Integrated Dose-Length Product (DLP) for this visit = 794.52 mGy*cm CT Dose Reduction Employed: No dose reduction techniques were required COMPARISON: CT brain 03/20/2023 and 03/17/2023. RESULT: Post-operative change: None. Acute change: No evidence of an acute infarct or other acute parenchymal process. Hemorrhage: No definite evidence of residual right-sided subdural hemorrhage. No evidence of acute intracranial hemorrhage. ECASS hemorrhagic transformation score: Not Applicable Mass Lesion / Mass Effect: There is no evidence of an intracranial mass or extraaxial fluid collection. No significant mass effect. Chronic change: Scattered patchy foci of low attenuation are present within supratentorial white matter which is a nonspecific finding but likely represents mild microvascular ischemia. Encephalomalacia again noted in the bilateral cerebellum consistent with remote ischemic infarcts. Parenchyma: There is minimal generalized volume loss. Ventricles: The lateral and third ventricles appear slightly more dilated than the prior exam that may represent developing Cephalus. Paranasal sinuses and skull base: The visualized paranasal sinuses are grossly clear. The skull base and imaged soft tissues are unremarkable. Rehabilitation Counsellor (topogram) images: Unremarkable. IMPRESSION: 1. Slight interval increased size of lateral and third ventricles that may represent developing hydrocephalus. Follow-up CT brain may be helpful. 2. Normal resolution of right-sided subdural hemorrhage. 3. 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 Mild chronic small vessel ischemic changes of the supra tentorial white matter. Minimal generalized brain parenchymal volume loss. COMMUNICATION: Communicated with Dr. Eh Kelly on 05/01/2023 1:00 PM via verbal communication. Brood Station Manager: [facility] Transcribe Date/Time: May 01 2023 12:48P Dictated by : HYACINTH FLOOD MD This examination was interpreted and the report reviewed and electronically signed by: HYACINTH FLOOD MD on May 01 2023 1:01PM EST [id number] Normal [facility] Absolute lymphocyte countOrd ered By: Danielle Hernandez on 04-25-2023 Lymphocytes Auto (Unsp spec) [#/Vol] 1.02 10*3/uL 0.83-4.51 [facility] Automated lymphocyte count a s percentage of total leukocytesOrdered By: Danielle Hernandez on 04-25-2023 Lymphocytes/100 WBC Auto (Unsp spec) 14.1 % 19-41 [facility] Basophil percentageOrdered B y: Danielle Hernandez on 04-25-2023 Basophils/100 WBC (Bld) 0.4 % 0-1 [facility] Chloride [Moles/Vol] 104 mmol/L 98-107 [facility] Eosinophils/100 WBC (Bld) 2.1 % 0-5 [facility] Glucose [Mass/Vol] 126 mg/dL 74-106 [facility] Comment on above: Fasting Glucose resu lt greater than or equal to 126 mg/dL suggests DIABETES MELLITUS per A.D.A. criteria. Hemoglobin (Bld) [Mass/Vol] 12.9 g/dL 13.0-16.5 [facility] Monocytes/100 WBC (Bld) 7.1 % 0-10 [facility] Neutrophils (Bld) [#/Vol] 5.5 10*3/uL 2.0-7.7 [facility] Neutrophils/100 WBC (Bld) 75.7 % 47-70 [facility] Potassium [Moles/Vol] 4.2 mmol/L 3.5-5.1 [facility] Comment on above: Moderate Hemolysis, Result may be falsely increased. Sodium [Moles/Vol] 137 mmol/L 136-145 [facility] WBC (Bld) [#/Vol] 7.2 10*3/uL 4.4-11.0 [facility] CNPNon 04-25-2023 CNPN Telephone (NEAGCLM) MICK COTTRELL ([id number]) 1940 M Date Time Provider Department 04/25/23 SIXTO KELLY NEAGC During your visit today, we recorded the following information about you: Jose Damon 04/25/2023 9:19 AM Signed I spoke with Karie at patient facility, Karie is going to ask son if he can provide transportation, if not she will call back and reschedule Allergies As of Date: 04/25/2023 Noted Allergy Reaction PENICILLINS 03/17/2023 16 - Unknown Date Reviewed: 03/21/2023 Reviewed by: Kasandra Ha, RN - Fully Assessed Prescriptions as of 04/25/2023 - acetaminophen (TYLENOL) 500 mg tablet 2 tablets by ORAL/FEEDING TUBE route every 8 hours as needed for pain. - levETIRAcetam (KEPPRA) 500 mg tablet Take 1 tablet by mouth two times a day for 4 days. - atorvastatin (LIPITOR) 40 mg tablet Take 40 mg by mouth once daily. - Cholecalciferol, Vitamin D3, (VITAMIN D-3) 10 mcg (400 unit) chew Take 400 Units by mouth once daily. Chewable - fexofenadine (BOBY HIVES) 180 mg tablet Take 180 mg by mouth once daily. - finasteride (PROSCAR) 5 mg tablet Take 5 mg by mouth once daily. - FLUoxetine (PROZAC) 20 mg capsule Take 20 mg by mouth once daily. - furosemide (LASIX) 20 mg tablet Take 20 mg by mouth two times a day. - losartan (COZAAR) 25 mg tablet Take 25 mg by mouth once daily. - magnesium oxide (MAG-OX) 400 mg (241.3 mg magnesium) tablet Take 400 mg by mouth once daily. - metFORMIN (GLUCOPHAGE) 1,000 mg tablet Take 1,000 mg by mouth daily with dinner. - metoprolol tartrate, short acting, (LOPRESSOR) 50 mg tablet Take 50 mg by mouth two times a day. - montelukast (SINGULAIR) 10 mg tablet Take 10 mg by mouth daily at bedtime. - oxybutynin XL (DITROPAN XL) 5 mg 24 hr tablet Take 5 mg by mouth once daily. - sertraline (ZOLOFT) 50 mg tablet Take 50 mg by mouth once daily. Problem List As Of Date 04/25/2023 Noted Resolved SDH (subdural hematoma) (HCC) [S06.5XAA] 03/17/2023 Fall [W19.XXXA] 03/18/2023 Hypokalemia [E87.6] 03/18/2023 03/21/2023 Arrhythmia [I49.9] 03/21/2023 Encounter Status:Closed by JOSE DAMON on 04/25/23 [facility] Determination of erythrocyte mean corpuscular volume (MCV)Ordered By: Danielle Hernandez on 04-25-2023 MCV (RBC) [Entitic vol] 95.8 fL 80-94 [facility] Erythrocyte distribution wid th ratioOrdered By: Danielle Hernandez on 04-25-2023 Erythrocyte distribution width (RBC) [Ratio] 14.7 % 11.6-14.6 [facility] Erythrocyte distribution wid th standard deviationOrdered By: [facility] on 04-25-2023 Erythrocyte distribution width (RBC) [Entitic vol] 51.3 fL 35.1-43.9 [facility] Hematocrit Auto (Bld) [Volum e fraction]Ordered By: [facility] Hernandez on 04-25-2023 Hematocrit (Bld) [Volume fraction] 38.8 % 40-54 [facility] Immature granulocytes/100 WB C Auto (Bld)Ordered By: [facility] Hernandez on 04-25-2023 Immature granulocytes/100 WBC (Bld) 0.600 % 0.0-0.9 [facility] Comment on above: IG% - Immature Granu locytes (promyelocytes, myelocytes and metamyelocytes) > 1% indicates that a LEFT SHIFT is Present. Laboratory - Chemistry and C hemistry - challengeOrdered By: [facility] on 04-25-2023 CO2 [Moles/Vol] 29.0 mmol/L 21.0-32.0 [facility] Urea nitrogen/Creatinine [Mass ratio] 11.4 mg/mg 10-20 [facility] - Hematology and Cell countsOrdered By: Danielle Hernandez on 04-25-2023 MCH (RBC) [Entitic mass] 31.9 pg 27.0-32.0 [facility] MCHC (RBC) [Mass/Vol] 33.2 g/dL 32-36 [facility] Nucleated RBC/100 WBC (Bld) [Ratio] 0 % 0-5 [facility] Platelets (Bld) [#/Vol] 136 10*3/uL 150-450 [facility] No Panel InformationOrdered By: Danielle Hernandez on 04-25-2023 Estimated GFR (MDRD) Amer 87 mL/min >60 [facility] Comment on above: GFR Calc Estimated GFR (MDRD) Non-Af Amer 72 mL/min >60 [facility] Comment on above: Non- GFR Calc Platelet mean volume Russell-Ec ker (Bld) [Entitic vol]Ordered By: Danielle Hernandez on 04-25-2023 Platelet mean volume (Bld) [Entitic vol] 11.1 fL 6.2-12.0 [facility] RBC Auto (Bld) [#/Vol]Ordere d By: Danielle Hernandez on 04-25-2023 RBC (Bld) [#/Vol] 4.05 10*6/uL 4.6-6.2 [facility] Serum or plasma calcium cr urement (mass/volume)Ordered By: Danielle Hernandez on 04-25-2023 Calcium [Mass/Vol] 9.1 mg/dL 8.5-10.1 [facility] Serum or plasma creatinine m easurement (mass/volume)Ordered By: Danilele Hernandez on 04-25-2023 Creatinine [Mass/Vol] 1.05 mg/dL 0.70-1.30 [facility] Comment on above: The validity of the calculated GFR & GFRAA in patients over 70 years has not been determined. Clinical correlation is essential. Serum or plasma urea nitroge n measurement (mass/volume)Ordered By: Danielle Hernandez on 04-25-2023 Urea nitrogen [Mass/Vol] 12 mg/dL 7-18 [facility] Thin prep Papanicolaou smear with manual screeningOrdered By: Danielle Hernandez on 04-25-2023 Thin prep Papanicolaou smear with manual screening 4 5-15 [facility]OTT[facility]LL ([id number]) 1940 M Date Time Provider Department 04/19/23 SIXTO KELLYLM During your visit today, we recorded the following information about you: Jose Damon 04/19/2023 10:55 AM Addendum I returned facility from [place] about son not being happy of appt being rescheduled again. Per Vivian patient can have CT anywhere as long as we have acces to the scan and follow up over phone. I left a with this information on [facility]. [phone] Allergies As of Date: 04/19/2023 Noted Allergy Reaction PENICILLINS 03/17/2023 16 - Unknown Date Reviewed: 03/21/2023 Reviewed by: Kasandra Ha, RN - Fully Assessed Prescriptions as of 04/19/2023 - acetaminophen (TYLENOL) 500 mg tablet 2 tablets by ORAL/FEEDING TUBE route every 8 hours as needed for pain. - levETIRAcetam (KEPPRA) 500 mg tablet Take 1 tablet by mouth two times a day for 4 days. - atorvastatin (LIPITOR) 40 mg tablet Take 40 mg by mouth once daily. - Cholecalciferol, Vitamin D3, (VITAMIN D-3) 10 mcg (400 unit) chew Take 400 Units by mouth once daily. Chewable - fexofenadine (BOBY HIVES) 180 mg tablet Take 180 mg by mouth once daily. - finasteride (PROSCAR) 5 mg tablet Take 5 mg by mouth once daily. - FLUoxetine (PROZAC) 20 mg capsule Take 20 mg by mouth once daily. - furosemide (LASIX) 20 mg tablet Take 20 mg by mouth two times a day. - losartan (COZAAR) 25 mg tablet Take 25 mg by mouth once daily. - magnesium oxide (MAG-OX) 400 mg (241.3 mg magnesium) tablet Take 400 mg by mouth once daily. - metFORMIN (GLUCOPHAGE) 1,000 mg tablet Take 1,000 mg by mouth daily with dinner. - metoprolol tartrate, short acting, (LOPRESSOR) 50 mg tablet Take 50 mg by mouth two times a day. - montelukast (SINGULAIR) 10 mg tablet Take 10 mg by mouth daily at bedtime. - oxybutynin XL (DITROPAN XL) 5 mg 24 hr tablet Take 5 mg by mouth once daily. - sertraline (ZOLOFT) 50 mg tablet Take 50 mg by mouth once daily. Problem List As Of Date 04/19/2023 Noted Resolved SDH (subdural hematoma) (HCC) [S06.5XAA] 03/17/2023 Fall [W19.XXXA] 03/18/2023 Hypokalemia [E87.6] 03/18/2023 03/21/2023 Arrhythmia [I49.9] 03/21/2023 Encounter Status:Closed by JOSE DAMON on 04/19/23 [facility] CNPKalpana 04-17-2023 CNPN Telephone (AKMirificeO) MICK COTTRELL ([id number]) 1940 M Date Time Provider Department 04/17/23 DAYLIN LAURENT ([facility]) [place] During your visit today, we recorded the following information about you: Allergies As of Date: 04/17/2023 Noted Allergy Reaction PENICILLINS 03/17/2023 16 - Unknown Date Reviewed: 03/21/2023 Reviewed by: Kasandra Ha, RN - Fully Assessed Prescriptions as of 04/17/2023 - acetaminophen (TYLENOL) 500 mg tablet 2 tablets by ORAL/FEEDING TUBE route every 8 hours as needed for pain. - levETIRAcetam (KEPPRA) 500 mg tablet Take 1 tablet by mouth two times a day for 4 days. - atorvastatin (LIPITOR) 40 mg tablet Take 40 mg by mouth once daily. - Cholecalciferol, Vitamin D3, (VITAMIN D-3) 10 mcg (400 unit) chew Take 400 Units by mouth once daily. Chewable - fexofenadine (BOBY HIVES) 180 mg tablet Take 180 mg by mouth once daily. - finasteride (PROSCAR) 5 mg tablet Take 5 mg by mouth once daily. - FLUoxetine (PROZAC) 20 mg capsule Take 20 mg by mouth once daily. - furosemide (LASIX) 20 mg tablet Take 20 mg by mouth two times a day. - losartan (COZAAR) 25 mg tablet Take 25 mg by mouth once daily. - magnesium oxide (MAG-OX) 400 mg (241.3 mg magnesium) tablet Take 400 mg by mouth once daily. - metFORMIN (GLUCOPHAGE) 1,000 mg tablet Take 1,000 mg by mouth daily with dinner. - metoprolol tartrate, short acting, (LOPRESSOR) 50 mg tablet Take 50 mg by mouth two times a day. - montelukast (SINGULAIR) 10 mg tablet Take 10 mg by mouth daily at bedtime. - oxybutynin XL (DITROPAN XL) 5 mg 24 hr tablet Take 5 mg by mouth once daily. - sertraline (ZOLOFT) 50 mg tablet Take 50 mg by mouth once daily. Problem List As Of Date 04/17/2023 Noted Resolved SDH (subdural hematoma) (HCC) [S06.5XAA] 03/17/2023 Fall [W19.XXXA] 03/18/2023 Hypokalemia [E87.6] 03/18/2023 03/21/2023 Arrhythmia [I49.9] 03/21/2023 Encounter Status:Closed by DAYLIN BRAGA on 04/17/23 Normal [facility] Absolute lymphocyte countOrd ered By: Danielle Hernandez on 04-11-2023 Lymphocytes Auto (Unsp spec) [#/Vol] 1.35 10*3/uL 0.83-4.51 [facility] Automated lymphocyte count a s percentage of total leukocytesOrdered By: Danielle Hernandez on 04-11-2023 Lymphocytes/100 WBC Auto (Unsp spec) 20.9 % 19-41 [facility] Basophil percentageOrdered B y: Danielle Hernandez on 04-11-2023 Basophils/100 WBC (Bld) 0.2 % 0-1 [facility] Chloride [Moles/Vol] 104 mmol/L 98-107 [facility] Eosinophils/100 WBC (Bld) 2.0 % 0-5 [facility] Glucose [Mass/Vol] 122 mg/dL 74-106 [facility] Comment on above: Fasting Glucose resu lt from 100 to 125 mg/dL suggests IMPAIRED HOMEOSTASIS per A.D.A. criteria. Hemoglobin (Bld) [Mass/Vol] 13.6 g/dL 13.0-16.5 [facility] Monocytes/100 WBC (Bld) 8.4 % 0-10 [facility] Neutrophils (Bld) [#/Vol] 4.4 10*3/uL 2.0-7.7 [facility] Neutrophils/100 WBC (Bld) 68.0 % 47-70 [facility] Potassium [Moles/Vol] 3.8 mmol/L 3.5-5.1 [facility] Comment on above: Slight Hemolysis, Re sult may be falsely increased. Sodium [Moles/Vol] 137 mmol/L 136-145 [facility] WBC (Bld) [#/Vol] 6.5 10*3/uL 4.4-11.0 [facility] Blood manual differential co mment interpretation (narrative result)Ordered By: Danielle Hernandez on 04-11-2023 Manual differential comment Mark (Bld) [Interp] SCANNED [facility] Blood platelet adequacy dete ction by light microscopyOrdered By: Danielle Hernandez on 04-11-2023 Platelets LM Ql (Bld) MOD DEC ADEQ [facility] Determination of erythrocyte mean corpuscular volume (MCV)Ordered By: Danielle Hernandez on 04-11-2023 MCV (RBC) [Entitic vol] 95.4 fL 80-94 [facility] Erythrocyte distribution wid th ratioOrdered By: Danielle Hernandez on 04-11-2023 Erythrocyte distribution width (RBC) [Ratio] 14.3 % 11.6-14.6 [facility] Erythrocyte distribution wid th standard deviationOrdered By: Danielle Hernandez on 04-11-2023 Erythrocyte distribution width (RBC) [Entitic vol] 50.3 fL 35.1-43.9 [facility] Hematocrit Auto (Bld) [Volum e fraction]Ordered By: Danielle Hernandez on 04-11-2023 Hematocrit (Bld) [Volume fraction] 41.2 % 40-54 [facility] Immature granulocytes/100 WB C Auto (Bld)Ordered By: Danielle Hernandez on 04-11-2023 Immature granulocytes/100 WBC (Bld) 0.500 % 0.0-0.9 [facility] Comment on above: IG% - Immature Granu locytes (promyelocytes, myelocytes and metamyelocytes) > 1% indicates that a LEFT SHIFT is Present. Laboratory - Chemistry and C hemistry - challengeOrdered By: Danielle Hernandez on 04-11-2023 CO2 [Moles/Vol] 29.0 mmol/L 21.0-32.0 [facility] Urea nitrogen/Creatinine [Mass ratio] 11.0 mg/mg 10-20 [facility] Laboratory - Hematology and Cell countsOrdered By: Danielle Hernandez on 04-11-2023 MCH (RBC) [Entitic mass] 31.5 pg 27.0-32.0 [facility] MCHC (RBC) [Mass/Vol] 33.0 g/dL 32-36 [facility] Nucleated RBC/100 WBC (Bld) [Ratio] 0 % 0-5 [facility] Platelets (Bld) [#/Vol] 84 10*3/uL 150-450 [facility] No Panel InformationOrdered By: Danielle Hernandez on 04-11-2023 Estimated GFR (MDRD) Amer 76 mL/min >60 [facility] Comment on above: GFR Calc Estimated GFR (MDRD) Non-Af Amer 63 mL/min >60 [facility] Comment on above: Non- GFR Calc Platelet mean volume Russell-Ec ker (Bld) [Entitic vol]Ordered By: Danielle Hernandez on 04-11-2023 Platelet mean volume (Bld) [Entitic vol] 11.9 fL 6.2-12.0 [facility] RBC Auto (Bld) [#/Vol]Ordere d By: Danielle Hernandez on 04-11-2023 RBC (Bld) [#/Vol] 4.32 10*6/uL 4.6-6.2 [facility] Serum or plasma calcium cr urement (mass/volume)Ordered By: Danielle Hernandez on 04-11-2023 Calcium [Mass/Vol] 8.8 mg/dL 8.5-10.1 [facility] Serum or plasma creatinine m easurement (mass/volume)Ordered By: Danielle Hernandez on 04-11-2023 Creatinine [Mass/Vol] 1.18 mg/dL 0.70-1.30 [facility] Comment on above: The validity of the calculated GFR & GFRAA in patients over 70 years has not been determined. Clinical correlation is essential. Serum or plasma urea nitroge n measurement (mass/volume)Ordered By: Danielle Hernandez on 04-11-2023 Urea nitrogen [Mass/Vol] 13 mg/dL 7-18 [facility] Thin prep Papanicolaou smear with manual screeningOrdered By: constantinsuttoncorey Hernandez on 04-11-2023 Thin prep Papanicolaou smear with manual screening 4 5-15 [facility] Absolute lymphocyte countOrd ered By: Danielle Hernandez on 04-04-2023 Lymphocytes Auto (Unsp spec) [#/Vol] 1.23 10*3/uL 0.83-4.51 [facility] Basophil percentageOrdered B y: Danielle Hernandez on 04-04-2023 Basophils/100 WBC (Bld) 0.3 % 0-1 [facility] Chloride [Moles/Vol] 99 mmol/L 98-107 [facility] Eosinophils/100 WBC (Bld) 1.0 % 0-5 [facility] Glucose [Mass/Vol] 144 mg/dL 74-106 [facility] Comment on above: Fasting Glucose resu lt greater than or equal to 126 mg/dL suggests DIABETES MELLITUS per A.D.A. criteria. Neutrophils (Bld) [#/Vol] 7.6 10*3/uL 2.0-7.7 [facility] Neutrophils/100 WBC (Bld) 78.2 % 47-70 [facility] Potassium [Moles/Vol] 3.6 mmol/L 3.5-5.1 [facility] Sodium [Moles/Vol] 134 mmol/L 136-145 [facility] WBC (Bld) [#/Vol] 9.7 10*3/uL 4.4-11.0 [facility] Blood erythrocytes count (nu mber/volume)Ordered By: Danielle Hernandez on 04-04-2023 RBC (Bld) [#/Vol] 4.86 10*6/uL 4.6-6.2 [facility] Blood hemoglobin measurement (mass/volume)Ordered By: Danielle Hernandez on 04-04-2023 Hemoglobin (Bld) [Mass/Vol] 15.2 g/dL 13.0-16.5 [facility] Blood lymphocytes/100 leukoc ytesOrdered By: Danielle Hernandez on 04-04-2023 Lymphocytes/100 WBC (Bld) 12.7 % 19-41 [facility] Blood monocytes/100 leukocyt esOrdered By: Danielle Hernandez on 04-04-2023 Monocytes/100 WBC (Bld) 7.2 % 0-10 [facility] Blood platelet mean volumeOr dered By: Danielle Hernandez on 04-04-2023 Platelet mean volume (Bld) [Entitic vol] 11.7 fL 6.2-12.0 [facility] Determination of erythrocyte mean corpuscular volume (MCV)Ordered By: Danielle Hernandez on 04-04-2023 MCV (RBC) [Entitic vol] 93.8 fL 80-94 [facility] Hematocrit Auto (Bld) [Volum e fraction]Ordered By: Danielle Hernandez on 04-04-2023 Hematocrit (Bld) [Volume fraction] 45.6 % 40-54 [facility] Laboratory - Chemistry and C hemistry - challengeOrdered By: Danielle Hernandez on 04-04-2023 CO2 [Moles/Vol] 27.0 mmol/L 21.0-32.0 [facility] Urea nitrogen/Creatinine [Mass ratio] 13.0 mg/mg 10-20 [facility] - Hematology and Cell countsOrdered By: Danielle Hernandez on 04-04-2023 Erythrocyte distribution width (RBC) [Entitic vol] 50.3 fL 35.1-43.9 [facility] Erythrocyte distribution width (RBC) [Ratio] 14.5 % 11.6-14.6 [facility] Immature granulocytes/100 WBC (Bld) 0.600 % 0.0-0.9 [facility] Comment on above: IG% - Immature Granu locytes (promyelocytes, myelocytes and metamyelocytes) > 1% indicates that a LEFT SHIFT is Present. MCH (RBC) [Entitic mass] 31.3 pg 27.0-32.0 [facility] Nucleated RBC/100 WBC (Bld) [Ratio] 0 % 0-5 [facility] MCHC Auto (RBC) [Mass/Vol]Or dered By: Danielle Hernandez on 04-04-2023 MCHC (RBC) [Mass/Vol] 33.3 g/dL 32-36 [facility] No Panel InformationOrdered By: Danielle Hernandez on 04-04-2023 Estimated GFR (MDRD) Amer 78 mL/min >60 [facility] Comment on above: GFR Calc Estimated GFR (MDRD) Non-Af Amer 65 mL/min >60 [facility] Comment on above: Non- GFR Calc Platelets bldOrdered By: Abdulaziz Hernandez on 04-04-2023 Platelets (Bld) [#/Vol] 108 10*3/uL 150-450 [facility] Serum or plasma calcium cr urement (mass/volume)Ordered By: Danielle Hernandez on 04-04-2023 Calcium [Mass/Vol] 9.3 mg/dL 8.5-10.1 [facility] Serum or plasma creatinine m easurement (mass/volume)Ordered By: Danielle Hernandez on 04-04-2023 Creatinine [Mass/Vol] 1.15 mg/dL 0.70-1.30 [facility] Comment on above: The validity of the calculated GFR & GFRAA in patients over 70 years has not been determined. Clinical correlation is essential. Serum or plasma urea nitroge n measurement (mass/volume)Ordered By: Danielle Hernandez on 04-04-2023 Urea nitrogen [Mass/Vol] 15 mg/dL 7-18 [facility] Thin prep Papanicolaou smear with manual screeningOrdered By: Danielle Hernandez on 04-04-2023 Thin prep Papanicolaou smear with manual screening 8 5-15 [facility] Basophil percentageOrdered B y: Danielle Hernandez on 04-01-2023 Potassium [Moles/Vol] 4.0 mmol/L 3.5-5.1 [facility] Absolute lymphocyte countOrd ered By: Danielle Hernandez on 03-29-2023 Lymphocytes Auto (Unsp spec) [#/Vol] 0.86 10*3/uL 0.83-4.51 [facility] Basophil percentageOrdered B y: Danielle Hernandez on 03-29-2023 Basophils/100 WBC (Bld) 0.4 % 0-1 [facility] Bilirubin [Mass/Vol] 1.10 mg/dL 0.20-1.00 [facility] Comment on above: For patients on eltr ombopag therapy, use of Dimension [place] TBIL is not recommended. Chloride [Moles/Vol] 99 mmol/L 98-107 [facility] Cholesterol [Mass/Vol] 87 mg/dL <200 [facility] Comment on above: <200 mg/dL Desirable 200-240 mg/dL Borderline >240 mg/dL High Risk Eosinophils/100 WBC (Bld) 1.2 % 0-5 [facility] Glucose [Mass/Vol] 152 mg/dL 74-106 [facility] Comment on above: Fasting Glucose resu lt greater than or equal to 126 mg/dL suggests DIABETES MELLITUS per A.D.A. criteria. Neutrophils (Bld) [#/Vol] 8.5 10*3/uL 2.0-7.7 [facility] Neutrophils/100 WBC (Bld) 82.4 % 47-70 [facility] Potassium [Moles/Vol] 3.2 mmol/L 3.5-5.1 [facility] Protein [Mass/Vol] 5.8 g/dL 6.4-8.2 [facility] Sodium [Moles/Vol] 136 mmol/L 136-145 [facility] Triglyceride [Mass/Vol] 101 mg/dL <199 [facility] Comment on above: The drugs N-Acetylcy steine and Metamizole may falsely depress this assay.Serum Triglycerides Reference Interval Normal <150 mg/dL Borderline high 150 - 199 mg/dL High 200 - 499 mg/dL Very High > or = 500 mg/dL WBC (Bld) [#/Vol] 10.3 10*3/uL 4.4-11.0 [facility] Blood erythrocytes count (nu mber/volume)Ordered By: Danielle Hernandez on 03-29-2023 RBC (Bld) [#/Vol] 4.67 10*6/uL 4.6-6.2 [facility] Blood hemoglobin measurement (mass/volume)Ordered By: Danielle Hernandez on 03-29-2023 Hemoglobin (Bld) [Mass/Vol] 14.5 g/dL 13.0-16.5 [facility] Blood lymphocytes/100 leukoc ytesOrdered By: Danielle Hernandez on 03-29-2023 Lymphocytes/100 WBC (Bld) 8.3 % 19-41 [facility] Blood monocytes/100 leukocyt esOrdered By: Danielle Hernandez on 03-29-2023 Monocytes/100 WBC (Bld) 7.1 % 0-10 [facility] Blood platelet mean volumeOr dered By: Danielle Hernandez on 03-29-2023 Platelet mean volume (Bld) [Entitic vol] 11.9 fL 6.2-12.0 [facility] Determination of erythrocyte mean corpuscular volume (MCV)Ordered By: Danielle Hernandez on 03-29-2023 MCV (RBC) [Entitic vol] 94.2 fL 80-94 [facility] Hematocrit Auto (Bld) [Volum e fraction]Ordered By: Danielle Hernandez on 03-29-2023 Hematocrit (Bld) [Volume fraction] 44.0 % 40-54 [facility] - Chemistry and C hemistry - challengeOrdered By: Danielle Hernandez on 03-29-2023 ALP [Catalytic activity/Vol] 152 U/L 45-117 [facility] ALT [Catalytic activity/Vol] 48 U/L 16-61 [facility] CO2 [Moles/Vol] 31.0 mmol/L 21.0-32.0 [facility] Globulin (S) [Mass/Vol] 2.9 g/dL 2.2-4.2 [facility] Urea nitrogen/Creatinine [Mass ratio] 19.1 mg/mg 10-20 [facility] - Hematology and Cell countsOrdered By: Danielle Hernandez on 03-29-2023 Erythrocyte distribution width (RBC) [Entitic vol] 50.6 fL 35.1-43.9 [facility] Erythrocyte distribution width (RBC) [Ratio] 14.6 % 11.6-14.6 [facility] Immature granulocytes/100 WBC (Bld) 0.600 % 0.0-0.9 [facility] Comment on above: IG% - Immature Granu locytes (promyelocytes, myelocytes and metamyelocytes) > 1% indicates that a LEFT SHIFT is Present. MCH (RBC) [Entitic mass] 31.0 pg 27.0-32.0 [facility] Nucleated RBC/100 WBC (Bld) [Ratio] 0 % 0-5 [facility] MCHC Auto (RBC) [Mass/Vol]Or dered By: Danielle Hernandez on 03-29-2023 MCHC (RBC) [Mass/Vol] 33.0 g/dL 32-36 [facility] No Panel InformationOrdered By: Danielle Hernandez on 03-29-2023 Estimated GFR (MDRD) Amer 82 mL/min >60 [facility] Comment on above: GFR Calc Estimated GFR (MDRD) Non-Af Amer 68 mL/min >60 [facility] Comment on above: Non- GFR Calc Levetiracetam (Keppra) Level 12.5 ug/mL 10.0-40.0 [facility] Comment on above: Performed at: - [address] [id number] Director: Reid Chanel MD, Phone: [phone] Platelets bldOrdered By: Abdulaziz Hernandez on 03-29-2023 Platelets (Bld) [#/Vol] 106 10*3/uL 150-450 [facility] Serum or plasma albumin cr urement (mass/volume)Ordered By: Danielle Hernandez on 03-29-2023 Albumin [Mass/Vol] 2.9 g/dL 3.2-5.0 [facility] Serum or plasma albumin/glob ulin mass ratioOrdered By: Danielle Hernandez on 03-29-2023 Albumin/Globulin [Mass ratio] 1.0 {ratio} 0.9-2.4 [facility] Serum or plasma calcium cr urement (mass/volume)Ordered By: Danielle Hernandez on 03-29-2023 Calcium [Mass/Vol] 9.1 mg/dL 8.5-10.1 [facility] Serum or plasma cholesterol in HDL measurement (mass/volume)Ordered By: Danielle Hernandez on 03-29-2023 Cholesterol in HDL [Mass/Vol] 28 mg/dL >40 [facility] Comment on above: The drugs N-Acetylcy steine and Metamizole may falsely depress this assay. Reference Range HDL <40 mg/dL Low HDL Cholesterol HDL >or= 60 mg/dL High HDL Cholesterol Serum or plasma cholesterol in VLDL measurement (mass/volume)Ordered By: Danielle Hernandez on 03-29-2023 Cholesterol in VLDL [Mass/Vol] 20 mg/dL 5-40 [facility] Serum or plasma creatinine m easurement (mass/volume)Ordered By: Danielle Hernandez on 03-29-2023 Creatinine [Mass/Vol] 1.10 mg/dL 0.70-1.30 [facility] Comment on above: The validity of the calculated GFR & GFRAA in patients over 70 years has not been determined. Clinical correlation is essential. Serum or plasma low density lipoprotein (LDL) cholesterol measurement (mass/volume)Ordered By: Danielle Hernandez on 03-29-2023 Cholesterol in LDL [Mass/Vol] 39 mg/dL 0-130 [facility] Serum or plasma urea nitroge n measurement (mass/volume)Ordered By: Danielle Hernandez on 03-29-2023 Urea nitrogen [Mass/Vol] 21 mg/dL 7-18 [facility] Thin prep Papanicolaou smear with manual screeningOrdered By: Danielle Hernandez on 03-29-2023 Thin prep Papanicolaou smear with manual screening 21 U/L 15-37 [facility] Thin prep Papanicolaou smear with manual screening 6 5-15 [facility] Whole blood hemoglobin A1c/t otal hemoglobin ratio (mass fraction)Ordered By: Danielle Hernandez on 03-29-2023 HbA1c (Bld) [Mass fraction] 6.5 % 3.8-5.6 [facility] Comment on above: Normal < 5.7 % Predi abetic 5.7 - 6.4 % Diabetic >or= 6.5 % Please note range changes. Neto 03-26-2023 CNPN Telephone (NSAGAP) MICK COTTRELL ([id number]) 1940 M Date Time Provider Department 03/26/23 SIXTO KELLY During your visit today, we recorded the following information about you: Jose Damon 03/26/2023 12:06 PM Signed I spoke with patient facility confirming day time and location of upcoming appt Allergies As of Date: 03/26/2023 Noted Allergy Reaction PENICILLINS 03/17/2023 16 - Unknown Date Reviewed: 03/21/2023 Reviewed by: Kasandra Ha, RN - Fully Assessed Prescriptions as of 03/26/2023 - acetaminophen (TYLENOL) 500 mg tablet 2 tablets by ORAL/FEEDING TUBE route every 8 hours as needed for pain. - levETIRAcetam (KEPPRA) 500 mg tablet Take 1 tablet by mouth two times a day for 4 days. - atorvastatin (LIPITOR) 40 mg tablet Take 40 mg by mouth once daily. - Cholecalciferol, Vitamin D3, (VITAMIN D-3) 10 mcg (400 unit) chew Take 400 Units by mouth once daily. Chewable - fexofenadine (BOBY HIVES) 180 mg tablet Take 180 mg by mouth once daily. - finasteride (PROSCAR) 5 mg tablet Take 5 mg by mouth once daily. - FLUoxetine (PROZAC) 20 mg capsule Take 20 mg by mouth once daily. - furosemide (LASIX) 20 mg tablet Take 20 mg by mouth two times a day. - losartan (COZAAR) 25 mg tablet Take 25 mg by mouth once daily. - magnesium oxide (MAG-OX) 400 mg (241.3 mg magnesium) tablet Take 400 mg by mouth once daily. - metFORMIN (GLUCOPHAGE) 1,000 mg tablet Take 1,000 mg by mouth daily with dinner. - metoprolol tartrate, short acting, (LOPRESSOR) 50 mg tablet Take 50 mg by mouth two times a day. - montelukast (SINGULAIR) 10 mg tablet Take 10 mg by mouth daily at bedtime. - oxybutynin XL (DITROPAN XL) 5 mg 24 hr tablet Take 5 mg by mouth once daily. - sertraline (ZOLOFT) 50 mg tablet Take 50 mg by mouth once daily. Facility-Administered Medications as of 03/26/2023 - perflutren lipid microspheres 1.3 mL in NaCl (PF) 0.9% 10 mL injection (DEFINITY) - sodium chloride 0.9 % (flush) 10 mL (BD POSIFLUSH) Problem List As Of Date 03/26/2023 Noted Resolved SDH (subdural hematoma) (HCC) [S06.5XAA] 03/17/2023 Fall [W19.XXXA] 03/18/2023 Hypokalemia [E87.6] 03/18/2023 03/21/2023 Arrhythmia [I49.9] 03/21/2023 Encounter Status:Closed by JOSE DAMON on 03/26/23 [facility] Neto [facility] ([id number]) 1940 M Date Time Provider Department 03/22/23 [facility] [employer] During your visit today, we recorded the following information about you: Mariama Johansen 03/22/2023 1:16 PM Signed ----- Message from Meghan Rios sent at 03/22/2023 12:06 PM EST ----- Regarding: Orthopedics /"Open AND Left Thumb" / Appointment for Fracture Patient has been identified by name and Date of (Y/N): Y Patient: Mick Cottrell Date of : 1940 Previous Provider Seen: na Body Part(s) Identified: Left Thumb Diagnosis/Reason For Visit: Fracture Reason for the call/escalation: Karie from [facility] was trying to schedule for patient but did not know if the patient has had an MRI for thumb or not and I was unable to continue with scheduling. Patient needs appointment for fractured thumb. If reason for call/escalation is discharge from ED/ER or Hospital, which facility was the patient seen at: [facility] Emergency Room Was an appointment scheduled (Y/N): N Person calling if other than patient: Karie with [facility] Return call to if other than patient: [phone] Best contact number: [phone] Thank you, Meghan Rios March 22, 2023 12:06 PM Allergies As of Date: 03/22/2023 Noted Allergy Reaction PENICILLINS 03/17/2023 16 - Unknown Date Reviewed: 03/21/2023 Reviewed by: Kasandra Ha, RN - Fully Assessed Reason for Visit: ER F/U [41] Cmt: 03/17, f/u with [facility] Prescriptions as of 03/22/2023 - acetaminophen (TYLENOL) 500 mg tablet 2 tablets by ORAL/FEEDING TUBE route every 8 hours as needed for pain. - levETIRAcetam (KEPPRA) 500 mg tablet Take 1 tablet by mouth two times a day for 4 days. - atorvastatin (LIPITOR) 40 mg tablet Take 40 mg by mouth once daily. - Cholecalciferol, Vitamin D3, (VITAMIN D-3) 10 mcg (400 unit) chew Take 400 Units by mouth once daily. Chewable - fexofenadine (BOBY HIVES) 180 mg tablet Take 180 mg by mouth once daily. - finasteride (PROSCAR) 5 mg tablet Take 5 mg by mouth once daily. - FLUoxetine (PROZAC) 20 mg capsule Take 20 mg by mouth once daily. - furosemide (LASIX) 20 mg tablet Take 20 mg by mouth two times a day. - losartan (COZAAR) 25 mg tablet Take 25 mg by mouth once daily. - magnesium oxide (MAG-OX) 400 mg (241.3 mg magnesium) tablet Take 400 mg by mouth once daily. - metFORMIN (GLUCOPHAGE) 1,000 mg tablet Take 1,000 mg by mouth daily with dinner. - metoprolol tartrate, short acting, (LOPRESSOR) 50 mg tablet Take 50 mg by mouth two times a day. - montelukast (SINGULAIR) 10 mg tablet Take 10 mg by mouth daily at bedtime. - oxybutynin XL (DITROPAN XL) 5 mg 24 hr tablet Take 5 mg by mouth once daily. - sertraline (ZOLOFT) 50 mg tablet Take 50 mg by mouth once daily. Facility-Administered Medications as of 03/22/2023 - perflutren lipid microspheres 1.3 mL in NaCl (PF) 0.9% 10 mL injection (DEFINITY) - sodium chloride 0.9 % (flush) 10 mL (BD POSIFLUSH) Problem List As Of Date 03/22/2023 Noted Resolved SDH (subdural hematoma) (HCC) [S06.5XAA] 03/17/2023 Fall [W19.XXXA] 03/18/2023 Hypokalemia [E87.6] 03/18/2023 03/21/2023 Arrhythmia [I49.9] 03/21/2023 Encounter Status:Closed by MARIAMA JOHANSEN on 03/22/23 Normal [facility] Basic metabolic 2000 panelon 03-21-2023 Anion gap [Moles/Vol] 9 mmol/L Normal 9-18 [facility] Comment on above: Order Comment: Speci men Type: BLOOD SPECIMEN [facility] Address: [address] [place] [address] Performed By: #### 5 8410-2 #### [facility] CLIA [id number] [address] [place] [address] [place] Calcium [Mass/Vol] 9.0 mg/dL Normal 8.5-10.2 [facility] Comment on above: Order Comment: Speci men Type: BLOOD SPECIMEN [facility] Address: [address] [place] [address] Performed By: #### 5 8410-2 #### [facility] CLIA [id number] [address] [place] Chloride [Moles/Vol] 102 mmol/L Normal 97-105 [facility] Comment on above: Order Comment: Speci men Type: BLOOD SPECIMEN [facility] Address: [address] [place] [address] Performed By: #### 5 8410-2 #### [facility] CLIA [id number] [address] [place] CO2 [Moles/Vol] 23 mmol/L Normal 22-30 [facility] Comment on above: Order Comment: Speci men Type: BLOOD SPECIMEN [facility] Address: [address] [place] [address] Performed By: #### 5 8410-2 #### [facility] CLIA [id number] [address] [place] Creatinine [Mass/Vol] 1.03 mg/dL Normal 0.73-1.22 [facility] Comment on above: Order Comment: Speci men Type: BLOOD SPECIMEN [facility] Address: [address] [place] [address] Performed By: #### 5 8410-2 #### [facility] CLIA [id number] [address] [place] [address] Creatinine and Glomerular filtration rate.predicted panel (S/P/Bld) 73 mL/min/1.73m??? Normal >=60 [facility] Comment on above: Order Comment: Speci men Type: BLOOD SPECIMEN [facility] Address: [address] [place] [address] Result Comment: Vivienne mated Glomerular Filtration Rate (eGFR) is calculated using the 2020 CKD-EPI creatinine equation. This equation utilizes serum creatinine, sex, and age as parameters. The creatinine assay has traceable calibration to isotope dilution-mass spectrometry. Refer to KDIGO guidelines for clinical interpretation. In patients with unstable renal function, e.g. those with acute kidney injury, the eGFR may not accurately reflect actual GFR. Performed By: #### 5 8410-2 #### [facility] CLIA [id number] [address] [place] [address] [place] Glucose [Mass/Vol] 187 mg/dL High 74-99 [facility] Comment on above: Order Comment: Speci men Type: BLOOD SPECIMEN [facility] Address: [address] [place] [address] Result Comment: The [place] Diabetes Association (ADA) provides guidance for cutoff values for fasting glucose and random glucose. The ADA defines fasting as no caloric intake for at least 8 hours. Fasting plasma glucose results between 100 to 125 mg/dL indicate increased risk for diabetes (prediabetes). Fasting plasma glucose results greater than or equal to 126 mg/dL meet the criteria for diagnosis of diabetes. In the absence of unequivocal hyperglycemia, results should be confirmed by repeat testing. In a patient with classic symptoms of hyperglycemia or hyperglycemic crisis, random plasma glucose results greater than or equal to 200 mg/dL meet the criteria for diagnosis of diabetes. Reference: Standards of Medical Care in Diabetes 2016, [place] [employer]. Diabetes Care. 2016.39(Suppl 1). Performed By: #### 5 8410-2 #### [facility] CLIA [id number] [address] [place] [address] [place] Potassium [Moles/Vol] 3.9 mmol/L Normal 3.7-5.1 [facility] Comment on above: Order Comment: Speci men Type: BLOOD SPECIMEN [facility] Address: [address] [place] [address] Performed By: #### 5 8410-2 #### [facility] CLIA [id number] [address] [place] [address] [place] Sodium [Moles/Vol] 134 mmol/L Low 136-144 [facility] Comment on above: Order Comment: Speci men Type: BLOOD SPECIMEN [facility] Address: [address] [place] [address] Performed By: #### 5 8410-2 #### [facility] CLIA [id number] [address] [place] [address] [place] Urea nitrogen [Mass/Vol] 26 mg/dL High 9-24 [facility] Comment on above: Order Comment: Speci men Type: BLOOD SPECIMEN [facility] Address: [address] [place] [address] Performed By: #### 5 8410-2 #### [facility] CLIA [id number] [address] CBC panel Auto (Bld)on 03-21 Erythrocyte distribution width (RBC) [Ratio] 15.1 % High 11.5-15.0 [facility] Comment on above: Order Comment: Speci men Type: BLOOD SPECIMEN [facility] Address: [address] [place] [address] Performed By: #### 5 8410-2 #### [facility] CLIA [id number] [address] Hematocrit (Bld) [Volume fraction] 42.4 % Normal 39.0-51.0 [facility] Comment on above: Order Comment: Speci men Type: BLOOD SPECIMEN [facility] Address: [address] [place] [address] Performed By: #### 5 8410-2 #### [facility] CLIA [id number] [address] Hemoglobin (Bld) [Mass/Vol] 14.4 g/dL Normal 13.0-17.0 [facility] Comment on above: Order Comment: Speci men Type: BLOOD SPECIMEN [facility] Address: [address] [place] [address] Performed By: #### 5 8410-2 #### [facility] CLIA [id number] [address] MCH (RBC) [Entitic mass] 32.3 pg Normal 26.0-34.0 [facility] Comment on above: Order Comment: Speci men Type: BLOOD SPECIMEN [facility] Address: [address] [place] [address] Performed By: #### 5 8410-2 #### [facility] CLIA [id number] [address] MCHC (RBC) [Mass/Vol] 34.0 g/dL Normal 30.5-36.0 [facility] Comment on above: Order Comment: Speci men Type: BLOOD SPECIMEN [facility] Address: [address] [place] [address] Performed By: #### 5 8410-2 #### [facility] CLIA [id number] [address] [place] MCV (RBC) [Entitic vol] 95.1 fL Normal 80.0-100.0 [facility] Comment on above: Order Comment: Speci men Type: BLOOD SPECIMEN [facility] Address: [address] [place] [address] Performed By: #### 5 8410-2 #### [facility] CLIA [id number] [address] Nucleated RBC (Bld) [#/Vol] 10*3/uL Normal <0.01 [facility] Comment on above: Order Comment: Speci men Type: BLOOD SPECIMEN [facility] Address: [address] [place] [address] Performed By: #### 5 8410-2 #### [facility] CLIA [id number] [address] [place] Platelet mean volume (Bld) [Entitic vol] 12.0 fL Normal 9.0-12.7 [facility] Comment on above: Order Comment: Speci men Type: BLOOD SPECIMEN [facility] Address: [address] [place] [address] Performed By: #### 5 8410-2 #### [facility] CLIA [id number] [address] [place] Platelets (Bld) [#/Vol] 127 10*3/uL Low 150-400 [facility] Comment on above: Order Comment: Speci men Type: BLOOD SPECIMEN [facility] Address: [address] [place] [address] Result Comment: No c lot detected. Performed By: #### 5 8410-2 #### [facility] CLIA [id number] [address] [facility] RBC (Bld) [#/Vol] 4.46 10*6/uL Normal 4.20-6.00 [facility] Comment on above: Order Comment: Speci men Type: BLOOD SPECIMEN [facility] Address: [address] [place] [address] Performed By: #### 5 8410-2 #### [facility] CLIA [id number] [address] [facility] WBC (Bld) [#/Vol] 9.52 10*3/uL Normal 3.70-11.00 [facility] Comment on above: Order Comment: Speci men Type: BLOOD SPECIMEN [facility] Address: [address] [place] [address] Performed By: #### 5 8410-2 #### [facility] CLIA [id number] [address] CNDSon 03-21-2023 [facility] HNO ID: [id number] Author: Irving Modi PA-C Service: General Surgery Author Type: Physician [employer] Officer Type: Discharge Summary Filed: 03/21/2023 3:42 PM Note Text: Attestation signed by Almas Kaur MD at 03/21/2023 5:01 PM The [facility], acting on behalf of the attending physician, has completed the [id number] portion of the patient discharge encounter. SIGNATURE: Almas Kaur MD PATIENT NAME: Mick Cottrell DATE: March 21, 2023 TIME: 5:01 PM Pager: [phone] DISCHARGE SUMMARY PATIENT NAME: Mick Cottrell Code Status: DNR-CCA, DNI Highest Readmission Risk Score: 26 The 30 day readmissions risk score is derived from an internally validated risk model which evaluates patient level characteristics, utilization history, medication orders and lab results up until the day of discharge. Patients with a score of 40 or above are considered highest risk for readmission. Specific patient level drivers will be listed at the bottom of the summary. Admission Information Admission Information ADMIT DATE: 03/17/2023 DISCHARGE DATE: 03/21/2023 MY DOCTORS AND MEDICAL TEAM: My Main Hospital Doctor: Almas Kaur MD Primary Care Provider: No primary care provider on file. My Medical Team Members: Treatment Team: Attending Provider: Almas Kaur MD Consulting: Anthony Youssef Jr., MD Consulting: Jennifer Duarte MD MY CONDITION AT DISCHARGE: Stable REASON I WAS IN THE HOSPITAL: Traumatic subdural hematoma; left thumb metacarpal fracture SUMMARY OF WHAT HAPPENED WHILE I WAS IN THE HOSPITAL: Mr. Mick Cottrell was transferred to [facility] from [facility] on 03/15/2023 for treatment of injuries sustained during a reportedly fall. CT imaging revealed a left-sided subdural hemorrhage (brain bleed) and x-rays of his left hand/wrist revealed a fracture of his left thumb metacarpal base. His home warfarin was reverse with Vitamin K prior to transfer and aspirin was reversed with DDAVP. He was admitted to the ICU for close neurological monitoring. Neurosurgery was consulted for management of his traumatic brain injury and recommended non-surgical treatment. He was placed on a 7-day course of Keppra for seizure prevention. Repeat CT imaging of his brain remained stable. It was recommended that he refrain from taking his aspirin or warfarin until he follows up with neurosurgery two weeks after discharge with repeat CT imaging of his brain. Mr. Fuentes' left thumb injury was assessed by orthopedic hand surgery. He was placed in a splint and no surgical intervention was warranted. It was recommended that he maintain the splint and follow-up with hand surgery on an outpatient basis for repeat imaging to assess healing. Urinalysis was concerning for possible urinary tract infection and, during his ICU admission, he was started on IV Ciprofloxacin. After a 3-day course of antibiotics, this was discontinued on 03/21/2023. Given his cardiac history with atrial fibrillation and aortic valve replacement and associated use of anticoagulant/anti-pl atelet medications (warfarin/aspirin), cardiology was consulted. He underwent an echocardiogram on 03/21/2023. This was reviewed by cardiology who recommended resuming aspirin as soon as possible along with having Mr. Cottrell follow-up with cardiology as an outpatient with repeat echocardiogram to determine further management. He is not to resume warfarin at this time and aspirin was unable to be initiated during his admission secondary to his brain bleed and elevated bleeding risk. He would require clearance from his treating neurosurgeon prior to restarting aspirin as mentioned above. Cardiology also recommended discharge with a continuous heart monitor/even recorder. Secondary to dysphagia (difficulty swallowing), Mr. Cottrell was evaluated by speech therapy. He was cleared for a pureed diet with this liquids and it was recommended that his medications be crushed before taking. He was also evaluated by physical and occupational therapy who recommended discharge to a [facility] facility. Mr. Cottrell was discharged in stable condition on 03/21/2023. As mentioned above, Mr. Cottrell would require outpatient follow-up evaluations with neurosurgery, orthopedic hand surgery and cardiology following hospital discharge. It was also recommended that he follow-up with his primary care provider for further long-term medical care. OTHER PROBLEMS/DIAGNOSIS: Principal Problem: SDH (subdural hematoma) (HCC) Active Problems: Fall Resolved Problems: Hypokalemia OPERATIONS PERFORMED WHILE IN THE HOSPITAL: None IMPORTANT TEST/PROCEDURES: Echocardiogram TEST RESULTS NOT AVAILABLE AT THIS TIME: No pending r (more content not included)... Normal [facility] CONSULT PROChris 03-21-2023 CONSULT PROG HNO ID: [id number] Author: Sonido Washington MD Service: Clinical Cardiology Author Type: Physician Type: Consult Progress Note Filed: 03/21/2023 3:42 PM Note Text: PROGRESS NOTE CARDIOLOGY SERVICE SERVICE DATE: 03/21/2023 SERVICE TIME: 2:36 PM Subjective INTERIM HISTORY: MARIA GUADALUPE overnight. No complaints of cp/sob. Objective PHYSICAL EXAM: Body mass index is 27.93 kg/m?. O2 Therapy: Room Air No data recorded Patient Vitals for the past 24 hrs: BP Temp Temp src Pulse Resp SpO2 Weight 03/21/23 1052 144/82 36.1 ?C (97 ?F) Temporal (!) 59 18 95 % -- 03/21/23 0756 131/72 -- -- (!) 57 18 93 % -- 03/21/23 0706 -- -- -- -- -- -- 85.8 kg (189 lb 2.5 oz) 03/21/23 0603 141/76 36.9 ?C (98.5 ?F) Axillary (!) 58 -- 94 % -- 03/21/23 0225 119/101 -- -- 85 -- -- -- 03/21/23 0045 196/111 37.4 ?C (99.4 ?F) Oral 92 18 94 % -- 03/20/23 2318 184/86 -- -- 84 -- -- -- 03/20/23 1929 173/95 37.1 ?C (98.7 ?F) Oral 77 18 96 % -- 03/20/23 1550 -- 36.6 ?C (97.8 ?F) Oral -- -- -- -- 03/20/23 1522 200/98 -- -- 77 18 95 % -- Pleasant, comfortable, not in acute distress. More awake today, but still falls asleep mid conversation, conversant but not oriented - thought it was 1986 SKIN: No rash or lumps. HEENT: Normocephalic, face symmetrical. NECK: Supple LUNGS: Clear to auscultation bilaterally. CARDIAC: aysha, regular ABDOMEN: Soft, nontender, bowel sounds present. EXTREMITIES: No edema. MEDICATIONS: Current Facility-Administered Medications Medication Dose Route Frequency NaCl 0.9% iv flush bag 20 mL INTRAVENOUS PRN ondansetron 4 mg tab(s) (ZOFRAN) 4 mg ORAL q 6 H PRN Or ondansetron (PF) 4 mg injection (ZOFRAN) 4 mg INTRAVENOUS q 6 H PRN acetaminophen 1,000 mg tab(s) (TYLENOL) 1,000 mg ORAL/FEEDING TUBE q 6 H oxyCODONE IR 5 mg tab(s) (ROXICODONE) 5 mg ORAL/FEEDING TUBE q 6 H PRN atorvastatin 40 mg tab(s) (LIPITOR) 40 mg ORAL AT BEDTIME montelukast 10 mg tab(s) (SINGULAIR) 10 mg ORAL AT BEDTIME finasteride 5 mg tab(s) (PROSCAR) 5 mg ORAL DAILY senna-docusate 8.6-50 mg 1 tablet (SENNA-S) 1 tablet ORAL BID dextrose 15 gram/32 mL 15 g (TRUEPLUS) 15 g ORAL PRN Or glucagon 1 mg injection 1 mg INTRAMUSCULAR PRN Or dextrose 10% iv bolus 12.5 g INTRAVENOUS PRN levETIRAcetam 500 mg injection (KEPPRA) 500 mg INTRAVENOUS BID heparin 5,000 Units injection 5,000 Units SUBCUTANEOUS q 8 H sodium chloride 0.9 % (flush) 2-10 mL (BD POSIFLUSH) 2-10 mL INTRAVENOUS DIRECTED PRN And perflutren lipid microspheres 1.1 mg/mL 1.3 mL injection (DEFINITY) 1.3 mL INTRAVENOUS DIRECTED PRN insulin lispro 0-15 Units injection (rapid acting) (ADMElog) 0-15 Units SUBCUTANEOUS w MEALS AND HS losartan 25 mg tab(s) (COZAAR) 25 mg ORAL DAILY metoprolol tartrate (short acting) 50 mg tab(s) (LOPRESSOR) 50 mg ORAL BID sertraline 50 mg tab(s) (ZOLOFT) 50 mg ORAL AT BEDTIME venlafaxine 75 mg tab(s) (EFFEXOR) 75 mg ORAL BID w MEALS DATA: Diagnostic tests reviewed for today's visit: Most recent labs and imaging results. Past 72 Hour Labs: Recent Labs 03/21/23 0713 WBC 9.52 RBC 4.46 HB 14.4 HCT 42.4 MCV 95.1 MCH 32.3 MCHC 34.0 RDWCV 15.1* PLT 127* MPV 12.0 GLUC 187* BUN 26* CREAT 1.03 NA 134* K 3.9 CHLOR 102 CO2 23 CA 9.0 Body surface area is 2.04 meters squared. Last Lab Drawn: No results found for this basename: TSH,PROBNP,TG,HDL,LDL ,CHOL Echo 03/21/2023 Bioprosthetic prosthetic valve. There is trace aortic valve regurgitation. The peak gradient is 55 mmHg (peak velocity = 372.0 cm/s). The mean gradient is 31 mmHg. The LVOT mean velocity is 48.3 cm/s. The aortic VTI is 81.5 cm. The mean velocity in the aortic valve is 261.2 cm/s. The dimensionless valve index is 0.25. CONCLUSIONS: - Technically difficult exam due to suboptimal positioning. - Exam indication: Evaluation of prosthetic valve with change in clinical status - The left ventricle is normal in size. Left ventricular systolic function is normal. EF = 55 ? 5% (2D biplane) Normal left ventricular diastolic function. - The right ventricle is normal in size. Right ventricular systolic function is normal. - Bioprosthetic prosthetic aortic valve. There is trace aortic valve regurgitation. The peak gradient is 55 mmHg, the mean gradient is 31 mmHg and the dimensionless valve index is 0.25. - The patient has not had a prior [facility] echocardiographic exam for comparison. Assessment/Plan 82 year old male with history of bioprosthetic aortic valve replacement in 2010, cryptogenic TIA/strokes, type 2 diabetes, hyperlipidemia, hypertension, COVID associated PE and paroxysmal A-fib presenting with a subdural hematoma status post fall while on warfarin and aspirin. Cardiology has been consulted for management of anticoagulation. #s/p AVR S/p bioprosthetic aortic valve model # [id number], 23-mm Jay-Viramontes) on 08/17/2010 No prior echocardiograms for direct comparison but echo (more content not included)... Normal [facility] ECHO 03-21-2023 Echocardiography Echocardiography Report: Transthoracic Echo [facility] Date of service: 03/21/2023 9:14:01 AM HOSPITAL Ordering physician: SONIDO RODRIGUEZ Indication: Evaluation of prosthetic valve with change in clinical status Technologist: Lopez Muñiz Interpreting physician: Alexy Kong MD PATIENT: Name: MICK COTTRELL : 1940 Age: 82 years Gender: M Previous cardiovascular interventions: Aortic valve replacement Primary rhythm: sinus. Height: 175.30 cm BSA: 2.09 m Weight: 89.40 kg BMI: 29.1 kg/m Heart rate 67 bpm Blood pressure 131/72 mmHg Technically difficult exam due to suboptimal positioning. Color Doppler was utilized to interrogate the cardiac valves assessed and spectral Doppler was utilized to determine the flow velocities and pressure gradients reported in this exam. MEASUREMENTS: Value Indexed Normal Left atrial volume 62 ml (biplane A-L) 30 ml/m Parth <= 34 LV ID (diastole) 3.5 cm (2D) 1.67 cm/m LV ID (systole) 2.2 cm (2D) 1.05 cm/m IVS, leaflet tips 0.7 cm (2D) Posterior wall thickness 1.1 cm (2D) Left ventricular mass 91 g (2D) 44 g/m LV stroke volume 57 ml (2D biplane) LV end diastolic volume 103 ml (2D biplane) 49.2 ml/m 34<=EDVi<75 LV end systolic volume 46 ml (2D biplane) 22.0 ml/m Ejection Fraction 55 % (2D biplane) EF > 52 FINDINGS: LEFT VENTRICLE The left ventricle is normal in size. Left ventricular systolic function is normal globally. Normal left ventricular diastolic function. Mitral annular lateral E/e': 11.3. Mitral annular septal E/e': 11.3. Wall Motion: All scored segments are normal. RIGHT VENTRICLE The right ventricle is normal in size. Right ventricular systolic function is normal. RV systolic tissue Doppler velocity is 9.0 cm/s. Tricuspid annular displacement is 1.6 cm. Estimated right ventricular systolic pressure is not reported due to an insufficient tricuspid regurgitation signal. Estimated right atrial pressure is 8 mmHg based on IVC assessment. LEFT ATRIUM The left atrial cavity is normal in size. Pulmonary Veins: The pulmonary venous pattern showed normal systolic flow. RIGHT ATRIUM The right atrial cavity is normal in size. Inferior Vena Cava: The inferior vena cava appears dilated measuring 2.1 cm. The vessel decreases greater than 50 percent with inspiration. MITRAL VALVE There is trace mitral valve regurgitation. There is mild thickening. The pressure half time is 82 msec. The peak mitral E/A ratio is 0.78. The average mitral E/e' ratio is 11.3. The mitral flow deceleration time is 281 msec. TRICUSPID VALVE The tricuspid valve leaflets are structurally normal. There is trace tricuspid valve regurgitation. The hepatic venous pattern showed normal systolic flow. AORTIC VALVE Bioprosthetic prosthetic valve. There is trace aortic valve regurgitation. The peak gradient is 55 mmHg (peak velocity = 372.0 cm/s). The mean gradient is 31 mmHg. The LVOT mean velocity is 48.3 cm/s. The aortic VTI is 81.5 cm. The mean velocity in the aortic valve is 261.2 cm/s. The dimensionless valve index is 0.25. PULMONIC VALVE The pulmonic valve was not seen or not interrogated. There is trace pulmonic valve regurgitation. AORTA The aorta is unseen or not interrogated. PULMONARY ARTERIES The pulmonary arteries are unseen or not interrogated. INTERATRIAL SEPTUM There is no evidence of intracardiac shunting as detected by Doppler. INTERVENTRICULAR SEPTUM There is no flow through the interventricular septum as detected by Doppler. PERICARDIUM There is no pericardial effusion. There is an epicardial fat pad. CONCLUSIONS: - Technically difficult exam due to suboptimal positioning. - Exam indication: Evaluation of prosthetic valve with change in clinical status - The left ventricle is normal in size. Left ventricular systolic function is normal. EF = 55 5% (2D biplane) Normal left ventricular diastolic function. - The right ventricle is normal in size. Right ventricular systolic function is normal. - Bioprosthetic prosthetic aortic valve. There is trace aortic valve regurgitation. The peak gradient is 55 mmHg, the mean gradient is 31 mmHg and the dimensionless valve index is 0.25. - The patient has not had a prior CC echocardiographic exam for comparison. * * * Final * * * [facility] [employer] : [id number] Normal [facility] NURSING PROGon 03-21-2023 NURSING PROG HNO ID: [id number] Author: Ellie Garrison, FIDELINA Service: Cardiovascular Testing Author Type: Registered Nurse Type: Nursing Progress Note Filed: 03/21/2023 4:49 PM Note Text: 14 day Extended wear EKG patch applied per order. Attempted to instruct patient on duration, restrictions and changing of patch, minimal success. [facility] to [facility] facility placed in transfer folder. Normal [facility] THERAPY NTon 03-21-2023 THERAPY NT HNO ID: [id number] Author: Speck, Priscilla, SCIENTIFIC SOFTWARE DEVELOPER Service: Physical Therapy Author Type: Sales Ambassador Type: Therapy (PT/OT/Speech/Resp) Filed: 03/21/2023 1:31 PM Note Text: Attestation signed by Jacki Arroyo, PT at 03/21/2023 4:19 PM I reviewed and agree with the documentation corresponding to this therapy visit. SIGNATURE: Jacki Arroyo, PT DATE: March 21, 2023 TIME: 4:19 PM Physical Therapy Treatment SERVICE DATE: 03/21/2023 SERVICE TIME: 1209 to 1232 ROOM: [id number] Recommended Discharge Disposition: Subacute/SNF Recommended Discharge Disposition Due to: Patient requires daily, facility-based rehabilitation from at least one discipline due to:, decline in functional status requiring daily skilled care PT 6 Clicks Score: 14 Patient pleasant and cooperative with physical therapy. Patient alert and oriented x 3. Patient required increased assistance with sit to stand transfers, patient very unsteady with gait. Patient progressing towards goals. Patient below baseline . Recommend SNF to improve functional mobility to return to PLOF. Precautions/Activity Restrictions: Bed/Chair Alarm, Fall Risk Current Hospital Course: Patient have a fall at home and sustained a subdural hematoma he also has a left first met fracture Ortho saw him has it wrapped in a splint and want him to be nonweightbearing up with a platform walker if needed Reason for Hospital Admission: fall Relevant Past Medical History: TIA/strokes Response to Therapy Interventions: Good Participation in Activities Continued Skilled Needs Due to: Functional Mobility/Skill Impairments, Safety Concerns Physical Therapy Problem List: Education Deficit, Safety Deficits, Decreased Activity Tolerance, Decreased Strength, Functional Mobility Impairment, Balance Impaired Treatment Interventions: Education, Strengthening, Functional Mobility Training, Balance Training Home Environment Patient Lives With: Self/Alone Assistance Available: PRN Entry To Home: Stairs Number Of Stairs Into Home: 3 Tub/Shower Type: walk in shower Laundry: does his own laundry Equipment Owned: Walker- Wheeled Prior Functional Level: Within Functional Limits Prior Functional Level Comments: Per patient he is normally independent with self care and IADLS, still drives Baseline Cognition: Oriented to self, Oriented to place, Oriented to time, Oriented to situation Subjective: Patient pleasant and coopertive with PT session . Patient alert and oriented x 3 CURRENT FUNCTIONAL STATUS: Most recent performance mobility performed during session in bold, other mobility completed during prior session and may no longer be correct or appropriate to complete. Current Functional Mobility Assist Level Additional Information Rolling Minimal Assistance Supine to Sit Minimal Assistance, Additional Information Cues/assistance to his trunk and bring lower extremities to edge of the bed and to maintain nonweightbearing left upper extremity Sit to Supine Minimal Assistance, Additional Information Cues/assistance to lower trunk and bring lower extremities up onto bed and maintaining nonweightbearing left upper extremity Scooting Sit to Stand Moderate Assistance, Additional Information Cues/assistance to push up through the lower extremities and placement maintain nonweightbearing left upper extremity and safety Stand to Sit Moderate Assistance, Additional Information Cues/assistance to line up to bed, slowly lower, hand placement and safety Bed to Chair Toilet/Commode Gait Minimal Assistance, Additional Information Gait Device: Wheeled Walker Gait Distance (feet): 25 feet x 2 Case/assistance for proper gait sequence, walker placement and upright posture Stairs Curb Step Car Transfer Blank hagan indicate activity not attempted General Deviations/Observatio ns: Difficulty changing direction/turning, Flexed trunk posture, Shuffling Gait, Improper distancing from assistive device Balance: Static Sitting, Dynamic Sitting, Static Standing, Dynamic Standing Static Sitting Balance: Good Patient able to maintain balance without handhold support, limited postural sway Dynamic Sitting Balance: Good Patient accepts moderate challenge, able to maintain balance while picking up object off floor Static Standing Balance: Fair Patient able to maintain balance with handhold support, may require occasional minimal assistance Dynamic Standing Balance: Fair Patient accepts minimal challenge, able to maintain balance while turning head/trunk -M: 7: Walk 25 feet or more Learning/Educational Needs: Functional Activities/Mobility Mini Cog Score: 0 (03/20/23 0901) Goals for Plan of Care: Patient/Caregiver Goals: Go Home Able to Perform HEP w (more content not included)... Normal [facility] ALLIED HEALTHon 03-20-2023 ALLIED HEALTH HNO ID: [id number] Author: Isaura Paredes RT(R) Service: Radiology Author Type: Digital Imaging Specialist Type: Allied Health Filed: 03/20/2023 7:20 AM Note Text: Radiology Service Progress Note PATIENT NAME: Mick Cottrell DATE OF SERVICE: March 20, 2023 TIME: 7:19 AM PATIENT IDENTITY VERIFICATION COMPLETED USING TWO (2) IDENTIFIERS: Name and Date of confirmed by patient verbally and Name and Date of confirmed by identification band. FALL SCREENING: Has the patient had 2 falls in the last year or 1 fall with injury or currently using an Ambulatory Assistive Device (Walker, Cane, Wheelchair, Crutches, etc.)? Inpatient: Screened on floor PATIENT GENDER DATA: Male PATIENT RELEVANT IMPLANT DATA REVIEWED: Not Applicable RADIOLOGY DEPARTMENT: CT; Exam(s) Completed: Brain PERIPHERAL IV DATA: Not applicable SIGNED BY: RT Jarret(R) March 20, 2023 7:19 AM Normal [facility] Basic metabolic 2000 panelon 03-20-2023 Anion gap [Moles/Vol] 13 mmol/L Normal 9-18 [facility] Comment on above: Order Comment: Speci men Type: BLOOD SPECIMEN [facility] Address: [address] [place] [address] Performed By: #### 3 4528-0, 31082-4 #### [facility] CLIA [id number] [address] [place] [address] [place] Calcium [Mass/Vol] 9.2 mg/dL Normal 8.5-10.2 [facility] Comment on above: Order Comment: Speci men Type: BLOOD SPECIMEN [facility] Address: [address] [place] [address] Performed By: #### 3 4528-0, 04278-8 #### [facility] CLIA [id number] [address] [place] [address] [place] Chloride [Moles/Vol] 102 mmol/L Normal 97-105 [facility] Comment on above: Order Comment: Speci men Type: BLOOD SPECIMEN [facility] Address: [address] [place] [address] Performed By: #### 3 4528-0, 43810-0 #### [facility] CLIA [id number] [address] CO2 [Moles/Vol] 22 mmol/L Normal 22-30 [facility] Comment on above: Order Comment: Speci men Type: BLOOD SPECIMEN [facility] Address: [address] [place] [address] Performed By: #### 3 4528-0, 19174-8 #### [facility] CLIA [id number] [address] [facility] Creatinine [Mass/Vol] 0.99 mg/dL Normal 0.73-1.22 [facility] Comment on above: Order Comment: Speci men Type: BLOOD SPECIMEN [facility] Address: [address] [place] [address] Performed By: #### 3 4528-0, 29329-2 #### [facility] CLIA [id number] [address] Creatinine and Glomerular filtration rate.predicted panel (S/P/Bld) 76 mL/min/1.73m??? Normal >=60 [facility] Comment on above: Order Comment: Speci men Type: BLOOD SPECIMEN [facility] Address: [address] [place] [address] Result Comment: Vivienne mated Glomerular Filtration Rate (eGFR) is calculated using the 2020 CKD-EPI creatinine equation. This equation utilizes serum creatinine, sex, and age as parameters. The creatinine assay has traceable calibration to isotope dilution-mass spectrometry. Refer to KDIGO guidelines for clinical interpretation. In patients with unstable renal function, e.g. those with acute kidney injury, the eGFR may not accurately reflect actual GFR. Performed By: #### 3 4528-0, 21204-5 #### [facility] CLIA [id number] 1 [place] [address] [place] Glucose [Mass/Vol] 167 mg/dL High 74-99 [facility] Comment on above: Order Comment: Gideon coampo Type: BLOOD SPECIMEN [facility] Address: [address] [place] [address] Result Comment: The [place] Diabetes Association (ADA) provides guidance for cutoff values for fasting glucose and random glucose. The ADA defines fasting as no caloric intake for at least 8 hours. Fasting plasma glucose results between 100 to 125 mg/dL indicate increased risk for diabetes (prediabetes). Fasting plasma glucose results greater than or equal to 126 mg/dL meet the criteria for diagnosis of diabetes. In the absence of unequivocal hyperglycemia, results should be confirmed by repeat testing. In a patient with classic symptoms of hyperglycemia or hyperglycemic crisis, random plasma glucose results greater than or equal to 200 mg/dL meet the criteria for diagnosis of diabetes. Reference: Standards of Medical Care in Diabetes 2016, [place] [employer] Association. Diabetes Care. 2016.39(Suppl 1). Performed By: #### 3 4528-0, 26026-9 #### [facility] CLIA [id number] 1 [place] [address] [place] Potassium [Moles/Vol] 3.7 mmol/L Normal 3.7-5.1 [facility] Comment on above: Order Comment: Gideon ocampo Type: BLOOD SPECIMEN [facility] Address: [address] [place] [address] Performed By: #### 3 4528-0, 84677-0 #### [facility] CLIA [id number] 1 [place] [address] [place] Sodium [Moles/Vol] 137 mmol/L Normal 136-144 [facility] Comment on above: Order Comment: Gideon ocampo Type: BLOOD SPECIMEN [facility] Address: [address] [place] [address] Performed By: #### 3 4528-0, 39936-0 #### [facility] CLIA [id number] 1 [place] [address] [place] Urea nitrogen [Mass/Vol] 23 mg/dL Normal 9-24 [facility] Comment on above: Order Comment: Speci men Type: BLOOD SPECIMEN [facility] Address: [address] [place] [address] Performed By: #### 3 4528-0, 00031-7 #### [facility] CLIA [id number] [address] [facility] CBC panel Auto (Bld)on 03-20 Erythrocyte distribution width (RBC) [Ratio] 15.0 % Normal 11.5-15.0 [facility] Comment on above: Order Comment: Speci men Type: BLOOD SPECIMEN [facility] Address: [address] [place] [address] Performed By: #### 5 8410-2 #### [facility] CLIA [id number] [address] [facility] Hematocrit (Bld) [Volume fraction] 44.6 % Normal 39.0-51.0 [facility] Comment on above: Order Comment: Speci men Type: BLOOD SPECIMEN [facility] Address: [address] [place] [address] Performed By: #### 5 8410-2 #### [facility] CLIA [id number] [address] Hemoglobin (Bld) [Mass/Vol] 14.7 g/dL Normal 13.0-17.0 [facility] Comment on above: Order Comment: Speci men Type: BLOOD SPECIMEN [facility] Address: [address] [place] [address] Performed By: #### 5 8410-2 #### [facility] CLIA [id number] [address] [facility] MCH (RBC) [Entitic mass] 31.3 pg Normal 26.0-34.0 [facility] Comment on above: Order Comment: Speci men Type: BLOOD SPECIMEN [facility] Address: [address] [place] [address] Performed By: #### 5 8410-2 #### [facility] CLIA [id number] [address] [facility] MCHC (RBC) [Mass/Vol] 33.0 g/dL Normal 30.5-36.0 [facility] Comment on above: Order Comment: Speci men Type: BLOOD SPECIMEN [facility] Address: [address] [place] [address] Performed By: #### 5 8410-2 #### [facility] CLIA [id number] [address] [place] MCV (RBC) [Entitic vol] 95.1 fL Normal 80.0-100.0 [facility] Comment on above: Order Comment: Speci men Type: BLOOD SPECIMEN [facility] Address: [address] [place] [address] Performed By: #### 5 8410-2 #### [facility] CLIA [id number] [address] Nucleated RBC (Bld) [#/Vol] 10*3/uL Normal <0.01 [facility] Comment on above: Order Comment: Speci men Type: BLOOD SPECIMEN [facility] Address: [address] [place] [address] Performed By: #### 5 8410-2 #### [facility] CLIA [id number] [address] [place] Platelet mean volume (Bld) [Entitic vol] 12.3 fL Normal 9.0-12.7 [facility] Comment on above: Order Comment: Speci men Type: BLOOD SPECIMEN [facility] Address: [address] [place] [address] Performed By: #### 5 8410-2 #### [facility] CLIA [id number] [address] Platelets (Bld) [#/Vol] 140 10*3/uL Low 150-400 [facility] Comment on above: Order Comment: Speci men Type: BLOOD SPECIMEN [facility] Address: [address] [place] [address] Performed By: #### 5 8410-2 #### [facility] CLIA [id number] [address] [place] RBC (Bld) [#/Vol] 4.69 10*6/uL Normal 4.20-6.00 [facility] Comment on above: Order Comment: Speci men Type: BLOOD SPECIMEN [facility] Address: [address] [place] [address] Performed By: #### 5 8410-2 #### [facility] CLIA [id number] [address] [place] WBC (Bld) [#/Vol] 9.74 10*3/uL Normal 3.70-11.00 [facility] Comment on above: Order Comment: Gideon men Type: BLOOD SPECIMEN [facility] Address: [place] [address] Performed By: #### 5 8410-2 #### [facility] CLIA [id number] [address] [facility] CONSULT PROGon 03-20-2023 CONSULT PROG HNO ID: [id number] Author: Toño Crowe PA-C Service: Neurosurgery Author Type: Physician [employer] Officer Type: Consult Progress Note Filed: 03/20/2023 9:57 AM Note Text: Summary: NAWAF signing off Neurosurgery Progress Note SERVICE DATE: 03/20/2023 SUBJECTIVE: NAEON. Has no complaints this am. OBJECTIVE: Vitals: Temp (24hrs), Av.7 ?C (98 ?F), Min:36.4 ?C (97.5 ?F), Max:36.8 ?C (98.3 ?F) BP 175/81 Pulse 80 Temp 36.7 ?C (98.1 ?F) (Oral) Resp 16 Ht 175.3 cm (5' 9") Wt 89.4 kg (197 lb 1.5 oz) SpO2 93% BMI 29.11 kg/m? O2 Therapy: Room Air Physical Exam: General - Alert and Oriented x2, cooperative, appropriate. Respiratory- even, unlabored GI - abdomen soft, non-tender, non-distended HEENT - Normocephalic. Atraumatic. Neuro - GCS:Opens eyes spontaneously (4),Oriented (5),Obeys motor commands (6) =15 PERRLA, makes eye contact, TM, FS, EOMI Speech: appropriate Motor: MIN, BUE and BLE 5/5 Sensation: SILT Drift: NT Extremities- Grossly normal. Symmetrical. No edema, deformity, coloration changes. Pulses- 2+ DP, 2+ radial Labs: CBC, Coags, BMP, Mg, Phos Recent Labs 03/20/23 0541 03/19/23 0042 03/18/23 0631 03/17/23 2235 WBC 9.74 9.55 10.98 11.94* HB 14.7 13.7 13.3 14.6 HCT 44.6 41.1 39.6 43.3 PLT 140* 121* 122* 124* INR -- -- -- 1.1 APTT -- -- -- 26.2 NA 137 138 137 138 K 3.7 3.5* 3.7 3.4* CHLOR 102 103 102 99 CO2 22 25 26 27 BUN 23 18 17 21 CREAT 0.99 0.96 0.92 1.14 GLUC 167* 149* 210* 217* CA 9.2 9.1 8.8 9.1 Cardiac Enzymes ABGs Diagnostic tests reviewed for today's visit: Most recent labs and imaging results. 03/20/2023 CT Brain IMPRESSION: Stable left supratentorial subdural hemorrhage. No new findings. ASSESSMENT AND PLAN: Active Hospital Problems Diagnosis Date Noted SDH (subdural hematoma) (HCC) 03/17/2023 Fall 03/18/2023 Hypokalemia 03/18/2023 82 year old male with history of bioprosthetic aortic valve replacement in 2010, cryptogenic TIA/strokes, type 2 diabetes, hyperlipidemia, hypertension, COVID associated PE and paroxysmal A-fib presenting with a subdural hematoma after fall while on warfarin and aspirin -Neuro as above -Imaging: Repeat CTH this am stable -Pain control: continue per primary -OAC: Cardiology recs patient only requires ASA 81 every day at this time, would recommend that patient hold until cleared by neurosurgery in outpatient setting -Seizure ppx: Keppra 500 mg BID x7 days from trauma -DVT PPX: SQH -Will schedule 2 week follow up with repeat CTH scan with NSGY RADHA at [facility] [facility] [facility] office. DC instructions placed. NSGY to sign off, please page with questions or concerns. Discussed plan of care with his son via phone. Medication and Non-Pharmacologic VTE Prophylaxis/Anticoagu lants Anticoagulant AND Antiplatelet Medications (From admission, onward) Start Dose Route Frequency Last Action Ordered Stop 03/19/23 0800 heparin 5,000 Units injection 5,000 Units SUBCUTANEOUS EVERY 8 HOURS Given, 03/20 0535 03/19/23 0742 -- 03/17/23 2330 vte pharmacologic prophylaxis contraindicated (tn,oh) 03/17/23 2330 pneumatic compression stockings (tn,ga) 03/17/23 2330 activity - mobilize patient (lefor, oh) Parts of this note may have been copied from one of my previous notes and remain pertinent. The documentation has been reviewed and edited as necessary to support the clinical decision making for today's visit. SIGNATURE: Toño Crowe PA-C PATIENT NAME: Mick Cottrell DATE: March 20, 2023 TIME: 6:40 AM Pager: [phone] Normal [facility] CT BRAIN WO IVCONon 03-20-20 CT BRAIN WO IVCON * * *Final Report* * * DATE OF EXAM: Mar 20 2023 7:17AM [facility] 0504 - CT BRAIN WO IVCON / PROCEDURE REASON: Subdural hematoma * * * * Physician Interpretation * * * * EXAMINATION: CT BRAIN WO IVCON CLINICAL HISTORY: Subdural hematoma, follow-up TECHNIQUE: Serial axial images without IV contrast were obtained from the vertex to the foramen magnum. MQ: [id number]_3 CT Radiation dose: Integrated Dose-Length Product (DLP) for this visit = 832 mGy*cm CT Dose Reduction Employed: Iterative recon COMPARISON: CT head 03/18/2023 RESULT: Rehabilitation Counsellor (topogram) images: No additional findings. Post-operative change: None. Acute change: No evidence of an acute infarct Hemorrhage: Acute subdural hemorrhage in the left middle cranial fossa, along the left falx and tentorium leaflet is stable. No new hemorrhage. Mass Lesion / Mass Effect: There is no evidence of an intracranial mass . No significant mass effect. Chronic change: Scattered patchy foci of low attenuation are present within supratentorial white matter which is a nonspecific finding but likely represents mild microvascular ischemia. Chronic bilateral small cerebellar infarcts Parenchyma: There is moderate generalized volume loss. The brain parenchyma is otherwise within normal limits for age. Ventricles: The lateral and third ventricles are enlarged but the configuration suggests central white matter volume loss. Stable Paranasal sinuses and skull base: The visualized paranasal sinuses are grossly clear. The skull base and imaged soft tissues are unremarkable. IMPRESSION: Stable left supratentorial subdural hemorrhage. No new findings. Brood Station Manager: PSCB Transcribe Date/Time: Mar 20 2023 8:32A Dictated by : REYNOLD WYNN MD This examination was interpreted and the report reviewed and electronically signed by: REYNOLD WYNN MD on Mar 20 2023 8:36AM EST [id number] Normal [facility] THERAPY NTon 03-20-2023 THERAPY NT HNO ID: [id number] Author: Génesis Mercado OTR/L Service: Occupational Therapy Author Type: Occupational Therapist Type: Therapy (PT/OT/Speech/Resp) Filed: 03/20/2023 11:18 AM Note Text: Occupational Therapy Evaluation SERVICE DATE: 03/20/2023 SERVICE TIME: 900 to 923 ROOM: [id number] Recommended Discharge Disposition: Subacute/SNF Recommended Discharge Disposition Due to: Patient requires daily, facility-based rehabilitation from at least one discipline due to:, ADL impairment resulting in caregiver dependence, Cognitive-behavioral therapy needs, decline in functional status requiring daily skilled care OT 6 Clicks Score: 15 Patient seen bedside, agreeable to OT. Patient tolerated out of bed activity this session, completed LB ADLS and functional transfers with minimal assist and cues for safety. Patient is requiring increased assist with all ADLs and functional transfers due to increased weakness and decreased cognition. Recommend SNF at d/c for continued OT. Precautions/Activity Restrictions: Bed/Chair Alarm, Fall Risk Current Hospital Course: Patient have a fall at home and sustained a subdural hematoma he also has a left first met fracture Ortho saw him has it wrapped in a splint and want him to be nonweightbearing up with a platform walker if needed Reason for Hospital Admission: fall Relevant Past Medical History: TIA/strokes Response to Therapy Interventions: Cognitive Deficits, Good Participation in Activities Continued Skilled Needs Due to: Cognitive Deficits, Functional Impairment Occupational Therapy Problem List: Cognitive Deficit, Impaired Self Care Cognition/Communicati on Deficits Orientation Deficits: Confused, Not oriented to Time Responsiveness: Alert Follows Commands: 2-step Commands, Cueing Needed Cueing to Follow Commands: Moderate Executive Function Deficits: Judgement, Insight to Deficits, Problem Solving, Safety Awareness Judgement Deficit: Minimal impairment Insight to Deficits: Minimal impairment Problem Solving Deficit: Minimal impairment Safety Awareness Deficit: Minimal impairment Cognitive Clinical Tests and Screens: Mini Cog Clock Draw Test: 0-Abnormal Word Recall: 0-recalled words Mini Cog Score: 0 Treatment Interventions: Self Care/Home Management, Cognitive Training Plan for Next Visit: Bathing Training, Bed Mobility, Cognition Intervention, Dressing Training, Fall Prevention Home Environment Patient Lives With: Self/Alone Assistance Available: PRN Entry To Home: Stairs Number Of Stairs Into Home: 3 Tub/Shower Type: walk in shower Laundry: does his own laundry Equipment Owned: Walker- Wheeled Prior Functional Level: Within Functional Limits Prior Functional Level Comments: Per patient he is normally independent with self care and IADLS, still drives Baseline Cognition: Oriented to self, Oriented to place, Oriented to time, Oriented to situation Occupational Factors Life 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: Homemaker, Retired, Family Member, Friend Identified Strengths: Motivation, Access to Healthcare Identified Barriers: Difficulty with ADLs/IADLs, Judgment/Awareness, Problem-Solving Skills, Functional Cognition/Memory, Fatigue/Endurance Subjective: pt seen bedside, agreeable to OT CURRENT FUNCTIONAL STATUS: Most recent performance Current Activities of Daily Living Assist Level Additional Information Feeding Set Up Grooming Minimal Assistance, Additional Information provided patient with opportunity to complete grooming task while seated at edge of the bed, provided patient with minimal assist to complete task Bathing Upper Body Minimal Assistance Bathing Lower Body Moderate Assistance Dressing Upper Body Minimal Assistance, Additional Information provided patient with cues for proper sequencing to complete UB dressing task Dressing Lower Body Moderate Assistance, Additional Information Provided patient with cues for proper sequencing to complete LB Dressing task Toileting Moderate Assistance Instrumental Activities of Daily Living Assist Level Additional Information Meal/Beverage Prep Cleaning Laundry Medication Management with Strategies Functional Mobility Assist Level Additional Information Rolling Supine to Sit Contact Guard Assistance, Additional Information provided patient with cues for proper hand placement and cues to maintain NWB on left UE to complete supine to sit at edge of the bed Sit to Supine Contact Guard Assistance Scooting Contact Guard Assistance Sit to Stand Minimal Assistance, Additional Information provided patient with cues for proper hand placement and cues to maintain NWB Left UE while completing sit to stand from edge of the bed Stand to Sit Minimal Assistance Bed to Chair Toilet/Commode Shower Functional Mobility Minimal Assistance, Additional Information Other: See Comment (Platform walker) Provided patient with cues for walker safety during functional mobilit (more content not included)... Normal [facility] Basic metabolic 2000 panelon 03-19-2023 Anion gap [Moles/Vol] 10 mmol/L Normal 9-18 [facility] Comment on above: Order Comment: Speci men Type: BLOOD SPECIMEN [facility] Address: [address] [place] [address] Performed By: #### 5 8410-2 #### [facility] CLIA [id number] 1 [place] [address] [place] Calcium [Mass/Vol] 9.1 mg/dL Normal 8.5-10.2 [facility] Comment on above: Order Comment: Speci men Type: BLOOD SPECIMEN [facility] Address: [address] [place] [address] Performed By: #### 5 8410-2 #### [facility] CLIA [id number] 1 [place] [address] [place] Chloride [Moles/Vol] 103 mmol/L Normal 97-105 [facility] Comment on above: Order Comment: Speci men Type: BLOOD SPECIMEN [facility] Address: [address] [place] [address] Performed By: #### 5 8410-2 #### [facility] CLIA [id number] [address] [place] [facility] CO2 [Moles/Vol] 25 mmol/L Normal 22-30 [facility] Comment on above: Order Comment: Speci men Type: BLOOD SPECIMEN [facility] Address: [address] [place] [address] Performed By: #### 5 8410-2 #### [facility] CLIA [id number] [address] [place] [facility] Creatinine [Mass/Vol] 0.96 mg/dL Normal 0.73-1.22 [facility] Comment on above: Order Comment: Speci men Type: BLOOD SPECIMEN [facility] Address: [address] [place] [address] Performed By: #### 5 8410-2 #### [facility] CLIA [id number] [address] Creatinine and Glomerular filtration rate.predicted panel (S/P/Bld) 79 mL/min/1.73m??? Normal >=60 [facility] Comment on above: Order Comment: Speci men Type: BLOOD SPECIMEN [facility] Address: [address] [place] [address] Result Comment: Vivienne mated Glomerular Filtration Rate (eGFR) is calculated using the 2020 CKD-EPI creatinine equation. This equation utilizes serum creatinine, sex, and age as parameters. The creatinine assay has traceable calibration to isotope dilution-mass spectrometry. Refer to KDIGO guidelines for clinical interpretation. In patients with unstable renal function, e.g. those with acute kidney injury, the eGFR may not accurately reflect actual GFR. Performed By: #### 5 8410-2 #### [facility] CLIA [id number] [address] [place] [facility] Glucose [Mass/Vol] 149 mg/dL High 74-99 [facility] Comment on above: Order Comment: Speci men Type: BLOOD SPECIMEN [facility] Address: [address] [place] [address] Result Comment: The [place] Diabetes Association (ADA) provides guidance for cutoff values for fasting glucose and random glucose. The ADA defines fasting as no caloric intake for at least 8 hours. Fasting plasma glucose results between 100 to 125 mg/dL indicate increased risk for diabetes (prediabetes). Fasting plasma glucose results greater than or equal to 126 mg/dL meet the criteria for diagnosis of diabetes. In the absence of unequivocal hyperglycemia, results should be confirmed by repeat testing. In a patient with classic symptoms of hyperglycemia or hyperglycemic crisis, random plasma glucose results greater than or equal to 200 mg/dL meet the criteria for diagnosis of diabetes. Reference: Standards of Medical Care in Diabetes 2016, [place] [employer]. Diabetes Care. 2016.39(Suppl 1). Performed By: #### 5 8410-2 #### [facility] CLIA [id number] [address] [place] [address] [place] Potassium [Moles/Vol] 3.5 mmol/L Low 3.7-5.1 [facility] Comment on above: Order Comment: Speci men Type: BLOOD SPECIMEN [facility] Address: [address] [place] [address] Performed By: #### 5 8410-2 #### [facility] CLIA [id number] 1 [place] [address] [place] Sodium [Moles/Vol] 138 mmol/L Normal 136-144 [facility] Comment on above: Order Comment: Speci men Type: BLOOD SPECIMEN [facility] Address: [address] [place] [address] Performed By: #### 5 8410-2 #### [facility] CLIA [id number] 1 [place] [address] [place] Urea nitrogen [Mass/Vol] 18 mg/dL Normal 9-24 [facility] Comment on above: Order Comment: Speci men Type: BLOOD SPECIMEN [facility] Address: [address] [place] [address] Performed By: #### 5 8410-2 #### [facility] CLIA [id number] [address] CBC panel Auto (Bld)on 03-19 Erythrocyte distribution width (RBC) [Ratio] 15.1 % High 11.5-15.0 [facility] Comment on above: Order Comment: Speci men Type: BLOOD SPECIMEN [facility] Address: [address] [place] [address] Performed By: #### 3 4528-0, 48769-0 #### [facility] CLIA [id number] [address] Hematocrit (Bld) [Volume fraction] 41.1 % Normal 39.0-51.0 [facility] Comment on above: Order Comment: Speci men Type: BLOOD SPECIMEN [facility] Address: [address] [place] [address] Performed By: #### 3 4528-0, 60898-9 #### [facility] CLIA [id number] [address] Hemoglobin (Bld) [Mass/Vol] 13.7 g/dL Normal 13.0-17.0 [facility] Comment on above: Order Comment: Speci men Type: BLOOD SPECIMEN [facility] Address: [address] [place] [address] Performed By: #### 3 4528-0, 98034-0 #### [facility] CLIA [id number] [address] MCH (RBC) [Entitic mass] 32.1 pg Normal 26.0-34.0 [facility] Comment on above: Order Comment: Speci men Type: BLOOD SPECIMEN [facility] Address: [address] [place] [address] Performed By: #### 3 4528-0, 42184-3 #### [facility] CLIA [id number] [address] [place] MCHC (RBC) [Mass/Vol] 33.3 g/dL Normal 30.5-36.0 [facility] Comment on above: Order Comment: Speci men Type: BLOOD SPECIMEN [facility] Address: [address] [place] [address] Performed By: #### 3 4528-0, 42257-1 #### [facility] CLIA [id number] [address] MCV (RBC) [Entitic vol] 96.3 fL Normal 80.0-100.0 [facility] Comment on above: Order Comment: Speci men Type: BLOOD SPECIMEN [facility] Address: [address] [place] [address] Performed By: #### 3 4528-0, 61751-8 #### [facility] CLIA [id number] [address] Nucleated RBC (Bld) [#/Vol] 10*3/uL Normal <0.01 [facility] Comment on above: Order Comment: Speci men Type: BLOOD SPECIMEN [facility] Address: [address] [place] [address] Performed By: #### 3 4528-0, #### [facility] CLIA [id number] [address] Platelet mean volume (Bld) [Entitic vol] 11.3 fL Normal 9.0-12.7 [facility] Comment on above: Order Comment: Speci men Type: BLOOD SPECIMEN [facility] Address: [address] [place] [address] Performed By: #### 3 4528-0, 87940-3 #### [facility] CLIA [id number] [address] Platelets (Bld) [#/Vol] 121 10*3/uL Low 150-400 [facility] Comment on above: Order Comment: Speci men Type: BLOOD SPECIMEN [facility] Address: [address] [place] [address] Result Comment: No c lot detected. Performed By: #### 3 4528-0, 56125-4 #### [facility] CLIA [id number] 1 [place] [address] [place] RBC (Bld) [#/Vol] 4.27 10*6/uL Normal 4.20-6.00 [facility] Comment on above: Order Comment: Speci men Type: BLOOD SPECIMEN [facility] Address: [address] [place] [address] Performed By: #### 3 4528-0, 04303-6 #### [facility] CLIA [id number] [address] [facility] WBC (Bld) [#/Vol] 9.55 10*3/uL Normal 3.70-11.00 [facility] Comment on above: Order Comment: Speci men Type: BLOOD SPECIMEN [facility] Address: [address] [place] [address] Performed By: #### 3 4528-0, 79415-2 #### [facility] CLIA [id number] [address] CONSULTon 03-19-2023 CONSULT HNO ID: [id number] Author: Sonido Washington MD Service: Clinical Cardiology Author Type: Physician Type: Consults Filed: 03/19/2023 1:18 PM Note Text: CONSULT: CARDIOLOGY SERVICE SERVICE DATE: 03/19/2023 SERVICE TIME: 11:24 AM CONSULTING PHYSICIAN: Sonido Rodriguez PCP: No primary care provider on file. ATTENDING: Almas Kaur MD REASON FOR CONSULT: Anticoagulation management Subjective CHIEF COMPLAINT: SDH (subdural hematoma) (HCC) [S06.5XAA] Subdural hematoma (HCC) [S06.5XAA] HISTORY OF PRESENT ILLNESS: Mr. Cottrell is a 82 year old male with history of bioprosthetic aortic valve replacement in 2010, cryptogenic TIA/strokes, type 2 diabetes, hyperlipidemia, hypertension, COVID associated PE and paroxysmal A-fib presenting with a subdural hematoma status post fall while on warfarin and aspirin. Cardiology has been consulted for management of anticoagulation. Care everywhere notes documenting bioprosthetic/tissue aortic valve replacement (model # [id number], 23-mm Jay-Viramontes) on 08/17/2010. Per note from 01/03/[address] Gtz it seems reason for coumadin was been due pAF, then due to recurrent pulmonary emboli - He has a history of cryptogenic CVAs and TIAs were felt to be from paroxysmal atrial fibrillation. He has been on Coumadin for years. When he was on Coumadin. He developed hematuria with bladder cancer and his Coumadin was discontinued and he was placed on baby aspirin. He had prolonged hospitalization in March 2020 for shortness of breath and was diagnosed with repeat pulmonary emboli in the left upper lobe. He was also diagnosed at that time with diastolic heart failure with preserved ejection fraction. He was discharged on aspirin and placed back on Coumadin " Per patient's outside hospital hardener helper's note (Juan Wilson MD from [facility]) from July 13, 2022 patient "PMHx bioprosthetic aortic valve replacement in 2010, HFpEF, COPD, former smoker (quit 20 yrs ago), cryptogenic TIAs/strokes, dementia, previous ILR (extracted 12/2015), COVID19 illness Feb 2020, post-COVID PE, PAF dx in setting of COVID, DM2, SANJU, HLD and HTN presented to the EP clinic for preoperative cardiac risk stratification prior to right uretheraloscopic stone extraction with right ureteral stent placement with Dr. Burks. He underwent Stress test which showed infarct in the inferior wall." Pt subsequently underwent coronary angio on 07/17/2022 that showed mild to moderate nonobstructive CAD. 07/17/2022 4:20 PM EDT 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 Coronary Findings Diagnostic Dominance: Left Left Main: The vessel was visualized by angiography, is moderate in size and is angiographically normal. Left Anterior Descending: The vessel was visualized by angiography, is moderate in size and is angiographically normal. Ramus Intermedius: Ramus lesion is 60% stenosed. Left Circumflex: The vessel was visualized by angiography and is large. The vessel exhibits minimal luminal irregularities. Right Coronary Artery: The vessel was visualized by angiography and is small. The vessel exhibits minimal luminal irregularities. Intervention No interventions have been documented. Left Ventricle LV end diastolic pressure is normal. " Pt is unable to recall reasons for being in the hospital or being on warfarin. No past medical history on file. No past surgical history on file. No family history on file. Prior to Admission Medications Prescriptions Last Dose Informant Patient Reported? Taking? Cholecalciferol, Vitamin D3, (VITAMIN D-3) 10 mcg (400 unit) chew Yes No Sig: Take 400 Units by mouth once daily. Chewable FLUoxetine (PROZAC) 20 mg capsule Yes No Sig: Take 20 mg by mouth once daily. HYDROcodone-acetamino phen (NORCO) 5-325 mg per tablet Yes No Sig: Take 1 tablet by mouth every 8 hours as needed for pain. aspirin, enteric coated (ASPIRIN, ENTERIC COATED) 81 mg EC tablet Yes No Sig: Take 81 mg by mouth once daily. atorvastatin (LIPITOR) 40 mg tablet Yes No Sig: Take 40 mg by mouth once daily. fexofenadine (BOBY HIVES) 180 mg tablet Yes No Sig: Take 180 mg by mouth once daily. finasteride (PROSCAR) 5 mg tablet Yes No Sig: Take 5 mg by mouth once daily. furosemide (LASIX) 20 mg tablet Yes No Sig: Take 20 mg by mouth two times a day. losartan (COZAAR) 25 mg tablet Yes No Sig: Take 25 mg by mouth once daily. magnesium oxide (MAG-OX) 400 mg (241.3 mg magnesium) tablet Yes No Sig: Take 400 mg by mouth once daily. metFORMIN (GLUCOPHAGE) 1,000 mg tablet Yes No Sig: Take 1,000 mg by mouth daily with dinner. metoprolol tartrate, short acting, (LOPRESSOR) 50 mg tablet Yes No Sig: Take 50 mg by mouth two times a day. montelukast (SINGULAIR) 10 mg tablet Yes No Sig: Take 10 mg by mouth daily at bedtime. oxybutynin XL (DITROPAN XL) 5 mg 24 hr tablet Yes No Sig: Take 5 mg by mouth once daily. sertraline (ZOLOFT) 50 mg tablet Yes No (more content not included)... Normal [facility] THERAPY NTon 03-19-2023 THERAPY NT HNO ID: [id number] Author: Jacki Arroyo PT Service: Physical Therapy Author Type: Physical Therapist Type: Therapy (PT/OT/Speech/Resp) Filed: 03/19/2023 4:13 PM Note Text: Physical Therapy Evaluation SERVICE DATE: 03/19/2023 SERVICE TIME: 1536 to 1604 ROOM: [id number] Recommended Discharge Disposition: Subacute/SNF Recommended Discharge Disposition Due to: Patient requires daily, facility-based rehabilitation from at least one discipline due to:, decline in functional status requiring daily skilled care Patient seen for physical therapy exam he is below his baseline and does require the use of a platform walker for mobility and safety. He has reduced safety awareness and does not recall that he should not be putting weight through his left hand. Barriers to discharge to home include: Needing min for functional mobility including walking New decrease in endurance affecting their mobility at home Change in ability to manage ADLs/IADLs Change in functional strength from baseline Lives alone and/or has no reliable assistance Patient requiring physical assist with mobility, which is a change from baseline New change in mental status/cognition Strategies to reduce barriers include: Patient should be up to the bathroom or bedside commode for toileting Patient should be up to the chair 3x/day for meals Limit external catheter usage while encouraging increased mobility to the bathroom Limit time in bed Encourage patient participation in their own ADLs as able while in the hospital. Follow Therapy recommendations to nursing (found in nursing SBAR handoff) PT 6 Clicks Score: 16 Precautions/Activity Restrictions: Fall Risk Current Hospital Course: Patient have a fall at home and sustained a subdural hematoma he also has a left first met fracture Ortho saw him has it wrapped in a splint and want him to be nonweightbearing up with a platform walker if needed Reason for Hospital Admission: fall Relevant Past Medical History: TIA/strokes Response to Therapy Interventions: Good Participation in Activities Continued Skilled Needs Due to: Functional Mobility/Skill Impairments Physical Therapy Problem List: Education Deficit, Safety Deficits, Decreased Activity Tolerance, Decreased Strength, Functional Mobility Impairment, Balance Impaired Treatment Interventions: Education, Strengthening, Functional Mobility Training, Balance Training Home Environment Patient Lives With: Self/Alone Assistance Available: PRN Entry To Home: Stairs Number Of Stairs Into Home: 3 Equipment Owned: Walker- Wheeled Prior Functional Level: Within Functional Limits Prior Functional Level Comments: Patient lives alone and is normally independent walking without any assistive device was a poor historian about how things get done around the house and who grocery shops for him. Subjective: pleasant, seemingly confused at times CURRENT FUNCTIONAL STATUS: Most recent performance Current Functional Mobility Assist Level Additional Information Rolling Minimal Assistance Supine to Sit Minimal Assistance Sit to Supine Moderate Assistance Scooting Sit to Stand Minimal Assistance Stand to Sit Minimal Assistance Bed to Chair Toilet/Commode Gait Minimal Assistance Gait Device: Wheeled Walker (platform) Gait Distance (feet): 40 ft intervals Stairs Curb Step Car Transfer Blank hagan indicate activity not attempted General Deviations/Observatio ns: Difficulty changing direction/turning, Flexed trunk posture, Shuffling Gait, Improper distancing from assistive device Range of Motion: WFL Strength: Strength Limitation Comments Strength Limitation Comments: Grossly 4 out of 5 Balance: Static Sitting, Dynamic Sitting, Static Standing, Dynamic Standing Static Sitting Balance: Good Patient able to maintain balance without handhold support, limited postural sway Dynamic Sitting Balance: Good Patient accepts moderate challenge, able to maintain balance while picking up object off floor Static Standing Balance: Fair Patient able to maintain balance with handhold support, may require occasional minimal assistance Dynamic Standing Balance: Fair Patient accepts minimal challenge, able to maintain balance while turning head/trunk JH-HLM: 7: Walk 25 feet or more Learning/Educational Needs: Functional Activities/Mobility Goals for Plan of Care: Patient/Caregiver Goals: Go Home Able to Perform HEP with: Independent Transfer Supine to/from Sit with: Independent Transfer Sit to/from Stand with: Independent Ambulate with: Independent Distance: 50 Device: Wheeled Walker (platform) Rehab Potential: Good Patient will be discontinued from Physical Therapy when no further skilled needs are identified in this setting. PLAN: PT Frequency: 3 Times Per Week (1-3) Plan of Care developed with: Patient TREATMENT INTERVENTIONS: Therapy Diagnosis: Reduced mobility-other, (more content not included)... Normal [facility] 25(OH)D3 [facility] 2022 25-hydroxyvitamin D3 [Mass/Vol] 39.3 ng/mL Normal >=30.0 [facility] Comment on above: Order Comment: Speci men Type: BLOOD SPECIMEN [facility] Address: [address] [place] [address], [place] [address] Result Comment: Clas sification of 25 [place] Vitamin D status: Deficiency: <= 20.0 ng/ml. Insufficiency: 21.0-29.0 ng/ml. Sufficiency: >= 30.0 ng/ml. Performed By: #### 5 8410-2 #### [facility] CLIA [id number] [address] [place] ALLIED HEALTHon 03-18-2023 ALLIED HEALTH HNO ID: [id number] Author: Faustina Valdez RT(R) Service: ? Author Type: Technologist Type: Allied Health Filed: 03/18/2023 4:25 PM Note Text: Radiology Service Progress Note PATIENT NAME: Mick Cottrell DATE OF SERVICE: March 18, 2023 TIME: 4:25 PM PATIENT IDENTITY VERIFICATION COMPLETED USING TWO (2) IDENTIFIERS: Name and Date of confirmed by patient verbally and Name and Date of confirmed by identification band. FALL SCREENING: Has the patient had 2 falls in the last year or 1 fall with injury or currently using an Ambulatory Assistive Device (Walker, Cane, Wheelchair, Crutches, etc.)? Inpatient: Screened on floor PATIENT GENDER DATA: Male PATIENT RELEVANT IMPLANT DATA REVIEWED: Not Applicable RADIOLOGY DEPARTMENT: CT; Exam(s) Completed: Brain PERIPHERAL IV DATA: Inpatient: see LDA documentation SIGNED BY: RT Miguelina(David) March 18, 2023 4:25 PM Normal [facility] Basic metabolic 2000 panelon 03-18-2023 Anion gap [Moles/Vol] 9 mmol/L Normal 9-18 [facility] Comment on above: Order Comment: Speci men Type: BLOOD SPECIMEN [facility] Address: [address] [place] [address] Performed By: #### 3 4528-0, 83693-7 #### [facility] CLIA [id number] 1 [place] [address] [place] Calcium [Mass/Vol] 8.8 mg/dL Normal 8.5-10.2 [facility] Comment on above: Order Comment: Speci men Type: BLOOD SPECIMEN [facility] Address: [address] [place] [address] Performed By: #### 3 4528-0, 41399-3 #### [facility] CLIA [id number] 1 [place] [address] [place] Chloride [Moles/Vol] 102 mmol/L Normal 97-105 [facility] Comment on above: Order Comment: Speci men Type: BLOOD SPECIMEN [facility] Address: [address] [place] [address] Performed By: #### 3 4528-0, 47140-4 #### [facility] CLIA [id number] [address] [place] CO2 [Moles/Vol] 26 mmol/L Normal 22-30 [facility] Comment on above: Order Comment: Speci men Type: BLOOD SPECIMEN [facility] Address: [address] [place] [address] Performed By: #### 3 4528-0, 83871-0 #### [facility] CLIA [id number] [address] [place] Creatinine [Mass/Vol] 0.92 mg/dL Normal 0.73-1.22 [facility] Comment on above: Order Comment: Speci men Type: BLOOD SPECIMEN [facility] Address: [address] [place] [address] Performed By: #### 3 4528-0, 91901-1 #### [facility] CLIA [id number] [address] Creatinine and Glomerular filtration rate.predicted panel (S/P/Bld) 83 mL/min/1.73m??? Normal >=60 [facility] Comment on above: Order Comment: Speci men Type: BLOOD SPECIMEN [facility] Address: [address] [place] [address] Result Comment: Vivienne mated Glomerular Filtration Rate (eGFR) is calculated using the 2020 CKD-EPI creatinine equation. This equation utilizes serum creatinine, sex, and age as parameters. The creatinine assay has traceable calibration to isotope dilution-mass spectrometry. Refer to KDIGO guidelines for clinical interpretation. In patients with unstable renal function, e.g. those with acute kidney injury, the eGFR may not accurately reflect actual GFR. Performed By: #### 3 4528-0, 29866-8 #### [facility] CLIA [id number] [address] [place] Glucose [Mass/Vol] 210 mg/dL High 74-99 [facility] Comment on above: Order Comment: Gideon ocampo Type: BLOOD SPECIMEN [facility] Address: [address] [place] [address] Result Comment: The [place] Diabetes [employer] (ADA) provides guidance for cutoff values for fasting glucose and random glucose. The ADA defines fasting as no caloric intake for at least 8 hours. Fasting plasma glucose results between 100 to 125 mg/dL indicate increased risk for diabetes (prediabetes). Fasting plasma glucose results greater than or equal to 126 mg/dL meet the criteria for diagnosis of diabetes. In the absence of unequivocal hyperglycemia, results should be confirmed by repeat testing. In a patient with classic symptoms of hyperglycemia or hyperglycemic crisis, random plasma glucose results greater than or equal to 200 mg/dL meet the criteria for diagnosis of diabetes. Reference: Standards of Medical Care in Diabetes 2016, [place] [employer]. Diabetes Care. 2016.39(Suppl 1). Performed By: #### 3 4528-0, 82049-6 #### [facility] CLIA [id number] 1 [place] [address] [place] Potassium [Moles/Vol] 3.7 mmol/L Normal 3.7-5.1 [facility] Comment on above: Order Comment: Gideon ocampo Type: BLOOD SPECIMEN [facility] Address: [address] [place] [address] Performed By: #### 3 4528-0, 17875-1 #### [facility] CLIA [id number] 1 [place] [address] [place] Sodium [Moles/Vol] 137 mmol/L Normal 136-144 [facility] Comment on above: Order Comment: Gideon ocampo Type: BLOOD SPECIMEN [facility] Address: [address] [place] [address] Performed By: #### 3 4528-0, 50692-5 #### [facility] CLIA [id number] 1 [place] [address] [place] Urea nitrogen [Mass/Vol] 17 mg/dL Normal 9-24 [facility] Comment on above: Order Comment: Gideon ocampo Type: BLOOD SPECIMEN [facility] Address: [address] [place] [address] Performed By: #### 3 4528-0, 89092-1 #### [facility] CLIA [id number] [address] CBC panel Auto (Bld)on 03-18 Erythrocyte distribution width (RBC) [Ratio] 14.6 % Normal 11.5-15.0 [facility] Comment on above: Order Comment: Speci men Type: BLOOD SPECIMEN [facility] Address: [address] [place] [address] Performed By: #### 5 8410-2 #### [facility] CLIA [id number] [address] Hematocrit (Bld) [Volume fraction] 39.6 % Normal 39.0-51.0 [facility] Comment on above: Order Comment: Speci men Type: BLOOD SPECIMEN [facility] Address: [address] [place] [address] Performed By: #### 5 8410-2 #### [facility] CLIA [id number] [address] Hemoglobin (Bld) [Mass/Vol] 13.3 g/dL Normal 13.0-17.0 [facility] Comment on above: Order Comment: Speci men Type: BLOOD SPECIMEN [facility] Address: [address] [place] [address] Performed By: #### 5 8410-2 #### [facility] CLIA [id number] [address] MCH (RBC) [Entitic mass] 31.9 pg Normal 26.0-34.0 [facility] Comment on above: Order Comment: Speci men Type: BLOOD SPECIMEN [facility] Address: [address] [place] [address] Performed By: #### 5 8410-2 #### [facility] CLIA [id number] [address] MCHC (RBC) [Mass/Vol] 33.6 g/dL Normal 30.5-36.0 [facility] Comment on above: Order Comment: Speci men Type: BLOOD SPECIMEN [facility] Address: [address] [place] [address] Performed By: #### 5 8410-2 #### [facility] CLIA [id number] [address] [facility] MCV (RBC) [Entitic vol] 95.0 fL Normal 80.0-100.0 [facility] Comment on above: Order Comment: Speci men Type: BLOOD SPECIMEN [facility] Address: [address] [place] [address] Performed By: #### 5 8410-2 #### [facility] CLIA [id number] [address] [facility] Nucleated RBC (Bld) [#/Vol] 10*3/uL Normal <0.01 [facility] Comment on above: Order Comment: Speci men Type: BLOOD SPECIMEN [facility] Address: [address] [place] [address] Performed By: #### 5 8410-2 #### [facility] CLIA [id number] [address] [facility] Platelet mean volume (Bld) [Entitic vol] 11.8 fL Normal 9.0-12.7 [facility] Comment on above: Order Comment: Speci men Type: BLOOD SPECIMEN [facility] Address: [address] [place] [address] Performed By: #### 5 8410-2 #### [facility] CLIA [id number] [address] [place] Platelets (Bld) [#/Vol] 122 10*3/uL Low 150-400 [facility] Comment on above: Order Comment: Speci men Type: BLOOD SPECIMEN [facility] Address: [address] [place] [address] Result Comment: No c lot detected. Performed By: #### 5 8410-2 #### [facility] CLIA [id number] [address] [place] RBC (Bld) [#/Vol] 4.17 10*6/uL Low 4.20-6.00 [facility] Comment on above: Order Comment: Speci men Type: BLOOD SPECIMEN [facility] Address: [address] [place] [address] Performed By: #### 5 8410-2 #### [facility] CLIA [id number] [address] [place] WBC (Bld) [#/Vol] 10.98 10*3/uL Normal 3.70-11.00 [facility] Comment on above: Order Comment: Speci men Type: BLOOD SPECIMEN [facility] Address: [address] [place] [address] Performed By: #### 5 8410-2 #### [facility] CLIA [id number] [address] [facility] Erythrocyte distribution width (RBC) [Ratio] 14.6 % Normal 11.5-15.0 [facility] Comment on above: Order Comment: Speci men Type: BLOOD SPECIMEN [facility] Address: [address] [place] [address] Performed By: #### 5 8410-2 #### [facility] CLIA [id number] [address] [place] Hematocrit (Bld) [Volume fraction] 43.3 % Normal 39.0-51.0 [facility] Comment on above: Order Comment: Speci men Type: BLOOD SPECIMEN [facility] Address: [address] [place] [address] Performed By: #### 5 8410-2 #### [facility] CLIA [id number] [address] [place] Hemoglobin (Bld) [Mass/Vol] 14.6 g/dL Normal 13.0-17.0 [facility] Comment on above: Order Comment: Speci men Type: BLOOD SPECIMEN [facility] Address: [address] [place] [address] Performed By: #### 5 8410-2 #### [facility] CLIA [id number] [address] MCH (RBC) [Entitic mass] 31.8 pg Normal 26.0-34.0 [facility] Comment on above: Order Comment: Speci men Type: BLOOD SPECIMEN [facility] Address: [address] [place] [address] Performed By: #### 5 8410-2 #### [facility] CLIA [id number] [address] MCHC (RBC) [Mass/Vol] 33.7 g/dL Normal 30.5-36.0 [facility] Comment on above: Order Comment: Speci men Type: BLOOD SPECIMEN [facility] Address: [address] [place] [address] Performed By: #### 5 8410-2 #### [facility] CLIA [id number] [address] MCV (RBC) [Entitic vol] 94.3 fL Normal 80.0-100.0 [facility] Comment on above: Order Comment: Speci men Type: BLOOD SPECIMEN [facility] Address: [address] [place] [address] Performed By: #### 5 8410-2 #### [facility] CLIA [id number] [address] Nucleated RBC (Bld) [#/Vol] 10*3/uL Normal <0.01 [facility] Comment on above: Order Comment: Speci men Type: BLOOD SPECIMEN [facility] Address: [address] [place] [address] Performed By: #### 5 8410-2 #### [facility] CLIA [id number] [address] Platelet mean volume (Bld) [Entitic vol] 11.5 fL Normal 9.0-12.7 [facility] Comment on above: Order Comment: Speci men Type: BLOOD SPECIMEN [facility] Address: [address] [place] [address] Performed By: #### 5 8410-2 #### [facility] CLIA [id number] [address] Platelets (Bld) [#/Vol] 124 10*3/uL Low 150-400 [facility] Comment on above: Order Comment: Speci men Type: BLOOD SPECIMEN [facility] Address: [address] [place] [address] Result Comment: No c lot detected. Performed By: #### 5 8410-2 #### [facility] CLIA [id number] [address] RBC (Bld) [#/Vol] 4.59 10*6/uL Normal 4.20-6.00 [facility] Comment on above: Order Comment: Speci men Type: BLOOD SPECIMEN [facility] Address: [address] [place] [address] Performed By: #### 5 8410-2 #### [facility] CLIA [id number] [address] WBC (Bld) [#/Vol] 11.94 10*3/uL High 3.70-11.00 [facility] Comment on above: Order Comment: Speci men Type: BLOOD SPECIMEN [facility] Address: [address] [place] [address] Performed By: #### 5 8410-2 #### [facility] CLIA [id number] [address] CONFIRM BLOOD TYPEon 023 ABO O Normal [facility] Comment on above: Order Comment: Speci men Type: BLOOD SPECIMENOrdering Facility: [facility] Address: [address] [place] [address] Performed By: #### C ONABO ####[facility]IA [id number] [place] [address] [facility] Rh Nom (Bld) Positive Normal [facility] Comment on above: Order Comment: Speci men Type: BLOOD SPECIMENOrdering Facility: [facility] Address: [place] [address] Performed By: #### C ONABO ####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 His son saw him today and noticed it was difficult for him to get out of bed and walk and didn't seem like himself. They know that he fell on Saturday but are unsure about LOC. He had a little blood on the side of his nose and a bruised hand. He was seen at [place] and transferred here. He lives at home alone and does not use a walker. He is normally AANDOx3 but is now AANDOx1. INR at outside facility was 1.8 and he was given vitamin K and K centra. HPI/CHIEF COMPLAINT: OTHER MECHANISMS: Fall-Same Level BRIEF DESCRIPTION OF INJURIES: Transverse fracture base of 1st metacarpal bone Acute sdh along L temporal and frontoparietal bone LAST FLUIDS/MEAL: 4 CODE STATUS: Discussed with son DNR DNI ALLERGIES Allergen Reactions Penicillins Unknown No medications prior to admission. DATE OF LAST TETANUS: unknown Immunization History Administered Date(s) Administered COVID-19 original vaccine, age 12+ yr, monovalent (PFIZER-BIONTMirifice - PURPLE TOP) 03/14/2021 COVID-19 original vaccine, full dose, monovalent (MODERNA) 07/27/2020 08/24/2020 COVID-19 vaccine, age 12+ yr, 2022- season (MODERNA) 01/03/2023 COVID-19 vaccine, age 12+ yr, bivalent (PFIZER-BIONTMirifice) 12/27/2021 No past medical history on file. No past surgical history on file. No family history on file. ROS: Is the patient having any pain? No 0 on a scale of 0 to 10 Constitutional: Negative Eye/Ear/Nose: Negative Respiratory: Negative Cardiovascular: Negative GI/Liver/Biliary: Negative Genitourinary: Negative Psychiatric: Negative Neurologic: Negative Musculoskeletal: Negative Integument: Negative Endocrine: Negative Heme/Lymph: Negative Objective Physical Exam: VITALS: 03/17/23 2148 03/17/23 2200 03/17/23 2300 03/17/23 2330 BP: 130/69 150/78 163/80 140/58 Pulse: 78 70 70 71 Resp: 18 15 16 15 Temp: TempSrc: SpO2: 98% 96% 97% 96% Weight: Height: NEURO: Alert AND Oriented x 1, GCS 15, Cranial Nerves II-XII grossly Intact, Moves All Extremities, Strength Symmetrical, No Sensory Deficits. HEENT: Head: small superficial laceration on nasal crease on left, no bony step-offs, midface stable to palpation. Eyes: PERRL, conjunctiva/corneas without lesions, EOMI. Nose: Septum midline, no crepitus with motion. Throat: Oral mucosa without lacerations, teeth in place, tongue without lacerations. NECK: No midline pain with palpation, no lacerations/wounds, trachea midline. RESPIRATORY: No abrasions or contusions, no crepitus, chest wall without ttp, equal excursion. Unlabored breathing on RA CARDIOVASCULAR: regular rate, good perfusion throughout ABDOMEN: Soft, non-distended, non-tender, no scars or lacerations, no rebound or guarding. No masses or organomegaly. PELVIC/PERINEAL: Pelvis stable to palpation, no blood noted at urethra meatus, gluteal contraction intact. BACK/SPINE: Thoracolumbar spinal column non-tender, no step-off or deformity noted, no external injury noted. EXTREMITIES: Arm/shoulder normal bilaterally, forearm/elbow normal bilaterally, left hand with ecchymosis, thigh/hip normal bilaterally, leg/knee normal bilaterally, foot/ankle normal bilaterally. RADIOLOGICAL/OTHER TEST DATA: CT BRAIN WO IVCON Final Result IMPRESSION: No significant change in subdural hemorrhage from outside head CT performed earlier the same day. Brood Station Manager: [facility] Transcribe Date/Time: Mar 17 2023 11:42P Dictated by : JAIME VERGARA MD This examination was interpreted and the report reviewed and electronically signed by: JAIME VERGARA MD on Mar 17 2023 11:48PM EST XR PELVIS 1V AP Final Result IMPRESSION: Evaluation partially limited due to positioning. No acute fracture identified Brood Station Manager: [facility] Transcribe Date/Time: Mar 17 2023 10:54P Dictated by : ROXANN MADDEN MD This examination was interpreted and the report reviewed and electronically signed by: ROXANN MADDEN MD on Mar 17 2023 10:55PM EST Labs: Recent Labs 03/17/23 2235 NA 138 K 3.4* CHLOR 99 CO2 27 BUN 21 CREAT 1.14 GLUC 217* ANION 12 CA 9.1 ALB 4.1 AST 20 ALT 19 ALKPHOS 129* TBILI 0.9 WBC 11.94* HB 14.6 HCT 43.3 PLT 124* INR 1.1 Assessment/Plan Active Hospital Problems Diagnosis Date Noted SDH (subdural hematoma) (HCC) 03/17/2023 82 year old male s/p glf Assessment and Plan: This is a 82 year old male s/p glf Neuro: - sdh - nsy consulted - s/p DDAVP, vi (more content not included)... Normal [facility] CONSULT HNO ID: [id number] Author: Lina Hsieh APRN.ACTIVITY THERAPY SPECIALIST Service: Neurosurgery Author Type: Nurse Practitioner Type: Consults Filed: 03/18/2023 1:22 AM Note Text: Attestation signed by Sixto Kelly MD at 03/18/2023 6:21 AM I agree with the Note of Lina Hsieh below. I also reviewed the initial and the repeat scan and noted no significant change in the L SDH. I do not recommend surgical intervention for this unless there is progressive increase in the size of the hematoma on F/U CTs. Sixto Kelly MD CONSULT: NEUROSURGERY SERVICE Patient Name: Mick Cottrell Date of : 1940 SERVICE DATE: 03/18/2023 CONTACTED AT:2200 BEGAN EVALUATION AT: 2214 I was present at the bedside for in-person evaluation of the patient within 30 minutes of being contacted. REASON FOR CONSULT: SDH REQUESTING PHYSICIAN: Almas Maguire DO PRIMARY CARE PHYSICIAN: No primary care provider on file. Consultation requested by Dr. Maguire for an opinion regarding SDH. My final recommendations will be communicated back to the requesting physician by way of shared Medical record or letter to requesting physician via US mail. CHIEF COMPLAINT: fall HISTORY OF PRESENT ILLNESS : Mick Cottrell is a 82 year old male with PMH vascular dementia, CVA, aortic valve replacement (on warfarin and ASA) and hypertension who presented to OSH for evaluation after a fall 2 days ago. Patient lives alone and reported a fall to family 2 days ago. He told his son he had tripped coming in the house and hurt his hand and had a bloody nose. Unknown if there was LOC. The following day, his son picked him up and took him to a family gathering where they noticed patient was slightly confused. Per their history, patient is normally alert and oriented x 3. Yesterday, another son went to patient's house to pick patient up for arodlo gathering and patient was still in bed at 11:00 am which was unusual per son. Patient seemed confused and was having difficulty with word finding. He also noticed patient seemed to have impaired balance and gait. This prompted family to take patient to the ED. Imaging at OSH revealed an acute left sided subdural hematoma. Initial SBP >200 and patient was started on Cardene infusion which has been discontinued here. He was transferred to [facility] for further evaluation. Patient is currently only oriented to person and demonstrates mixed aphasia. He does not remember falling and is unable to provide further history. No past medical history on file. No past surgical history on file. No family history on file. ALLERGIES Allergen Reactions Penicillins Unknown Current Facility-Administered Medications Medication Dose Route Frequency Provider Last Rate Last Admin NaCl 0.9% iv flush bag 20 mL INTRAVENOUS PRN [facility], [place], DO NaCl 0.9% iv infusion 100 mL/hr INTRAVENOUS CONTINUOUS [facility], [place], DO 100 mL/hr at 03/18/23 0025 100 mL/hr at 03/18/23 0025 ondansetron 4 mg tab(s) (ZOFRAN) 4 mg ORAL q 6 H PRN [facility], [place], DO Or ondansetron (PF) 4 mg injection (ZOFRAN) 4 mg INTRAVENOUS q 6 H PRN [facility], [place], DO acetaminophen 1,000 mg tab(s) (TYLENOL) 1,000 mg ORAL/FEEDING TUBE q 6 H [facility], [place], DO 1,000 mg at 03/18/23 002 oxyCODONE IR 5 mg tab(s) (ROXICODONE) 5 mg ORAL/FEEDING TUBE q 6 H PRN [facility], [place], DO atorvastatin 40 mg tab(s) (LIPITOR) 40 mg ORAL AT BEDTIME [facility], [place], DO montelukast 10 mg tab(s) (SINGULAIR) 10 mg ORAL AT BEDTIME [facility], [place], DO finasteride 5 mg tab(s) (PROSCAR) 5 mg ORAL DAILY [facility], [place], DO senna-docusate 8.6-50 mg 1 tablet (SENNA-S) 1 tablet ORAL BID [facility], [place], DO 1 tablet at 03/18/23 0025 potassium chloride iv piggyback 20 mEq/100 mL 20 mEq INTRAVENOUS q 1 H Buck, [place], DO 75 mL/hr at 03/18/23 0041 20 mEq at 03/18/23 0041 dextrose 15 gram/32 mL 15 g (TRUEPLUS) 15 g ORAL PRN Buck, [place], DO Or glucagon 1 mg injection 1 mg INTRAMUSCULAR PRN Buck, [place], DO Or dextrose 10% iv bolus 12.5 g INTRAVENOUS PRN Buck, [place], DO insulin lispro 0-15 Units injection (rapid acting) (ADMElog) 0-15 Units SUBCUTANEOUS q 6 H Buck, [place], DO 3 Units at 03/18/23 0038 levETIRAcetam 500 mg tab(s) (KEPPRA) 500 mg ORAL BID Lina Hsieh, SOFTWARE APPLICATION TESTER.ACTIVITY THERAPY SPECIALIST 500 mg at 03/18/23 0025 COMPLETE REVIEW OF SYSTEMS Unable to obtain MEDS: Current Facility-Administered Medications Medication Dose Route Frequency NaCl 0.9% iv flush bag 20 mL INTRAVENOUS PRN NaCl 0.9% iv infusion 100 mL/hr INTRAVENOUS CONTINUOUS ondansetron 4 mg tab(s) (ZOFRAN) 4 mg ORAL q 6 H PRN Or ondansetron (PF) 4 mg injection (ZOFRAN) 4 mg INTRAVENOUS q 6 H PRN acetaminophen 1,000 mg tab(s) (TYLENOL) 1,000 mg ORAL/FEEDING (more content not included)... Normal [facility] CONSULT HNO ID: [id number] Author: Shiv Coffman MD Service: Orthopaedic Surgery Author Type: Resident Type: Consults Filed: 03/18/2023 7:02 AM Note Text: Attestation signed by Anthony Youssef Jr., MD at 03/18/2023 9:23 AM I did not see the patient independently. I agree with the resident assessment and plan as written. Follow up as outpatient with Dr Cunningham. ORTHOPAEDIC SURGERY CONSULT Pt: MICK COTTRELL Date of Consultation: 03/18/2023 Physician Consulted: Dr. Youssef Reason for Consultation: L thumb pain HPI/ROS: 82 year old male with PMH listed below presented to [facility] ED as a transfer from [place] ED after being seen initially for multiple recent falls on warfarin and ASA. The patient is confused and unable to provide the history for me in the room. Much of the HPI is obtained from chart review. Per the chart, the patient lives at home alone and is typically AANDOx3. His son was visiting him yesterday and noticed that the patient had blood on his face as well as a bruised and painful left thumb, prompting them to seek care. The orthopaedic service is consulted due to findings of left 1st metacarpal fracture seen on XR. No past medical history on file. No past surgical history on file. Allergies: Penicillins Current Facility-Administered Medications Medication Dose Route Frequency ciprofloxacin iv piggyback 400 mg in D5W 200 mL (CIPRO) 400 mg INTRAVENOUS q 12 H hydrALAZINE 10 mg injection (APRESOLINE) 10 mg INTRAVENOUS q 6 H PRN NaCl 0.9% iv flush bag 20 mL INTRAVENOUS PRN NaCl 0.9% iv infusion 100 mL/hr INTRAVENOUS CONTINUOUS ondansetron 4 mg tab(s) (ZOFRAN) 4 mg ORAL q 6 H PRN Or ondansetron (PF) 4 mg injection (ZOFRAN) 4 mg INTRAVENOUS q 6 H PRN acetaminophen 1,000 mg tab(s) (TYLENOL) 1,000 mg ORAL/FEEDING TUBE q 6 H oxyCODONE IR 5 mg tab(s) (ROXICODONE) 5 mg ORAL/FEEDING TUBE q 6 H PRN atorvastatin 40 mg tab(s) (LIPITOR) 40 mg ORAL AT BEDTIME montelukast 10 mg tab(s) (SINGULAIR) 10 mg ORAL AT BEDTIME finasteride 5 mg tab(s) (PROSCAR) 5 mg ORAL DAILY senna-docusate 8.6-50 mg 1 tablet (SENNA-S) 1 tablet ORAL BID dextrose 15 gram/32 mL 15 g (TRUEPLUS) 15 g ORAL PRN Or glucagon 1 mg injection 1 mg INTRAMUSCULAR PRN Or dextrose 10% iv bolus 12.5 g INTRAVENOUS PRN insulin lispro 0-15 Units injection (rapid acting) (ADMElog) 0-15 Units SUBCUTANEOUS q 6 H levETIRAcetam 500 mg tab(s) (KEPPRA) 500 mg ORAL BID No family history on file. O: Vitals: BP 148/79 Pulse 82 Temp 37 ?C (98.6 ?F) (Oral) Resp 15 Ht 175.3 cm (5' 9") Wt 89.4 kg (197 lb 1.5 oz) SpO2 95% BMI 29.11 kg/m? Physical exam: General: AANDO x1 on exam this morning, unable to participate in exam or follow commands Left Upper Extremity: Dense ecchymosis with associated swelling to both thenar eminence and dorsum of left thumb. Patient appears TTP to base of left thumb metacarpal. Sensorimotor exam unable to be accurately assessed due to patient status R/U pulses palpable; BCR all digits. Compartments of forearm and upper arm are soft and compressible. Patient tolerates passive stretch of the fingers Normal cascade of the left hand without obvious rotational abnormality appreciated Labs: BMP: Sodium 138 03/17/2023 Potassium 3.4 03/17/2023 Chloride 99 03/17/2023 CO2 27 03/17/2023 BUN 21 03/17/2023 Creatinine 1.14 03/17/2023 Glucose 217 03/17/2023 CBC: WBC 10.98 03/18/2023 Hemoglobin 13.3 03/18/2023 Hematocrit 39.6 03/18/2023 Platelet Count 122 03/18/2023 COAGS: APTT 26.2 03/17/2023 INR 1.1 03/17/2023 SED RATE/CRP: No results found for this basename: wsr:*,crp:* Imaging: -XR of the left hand: Reviewed and demonstrates transverse first metacarpal base fracture with mild angulation -XR of the pelvis: Reviewed and demonstrates no acute osseous abnormalities A/P: 82 year old male with left thumb metacarpal base fracture -Medical management per primary -Pain control -Thumb spica placed at bedside, maintain splint c/d/I -Weight bearing status: NWB LUE -Recommend platform walker if ambulation assistance is needed -DVT ppx per primary -Diet: ok for diet from ortho perspective -No current plans for surgical intervention at this time: anticipate non operative management in thumb spica splint Patient plan to be discussed with Dr. Mikael Coffman MD Orthopaedic Surgery 03/18/2023 6:53 AM [facility] CT BRAIN WO IVCONon 03-18-[address] BRAIN WO IVCON * * *Final Report* * * DATE OF EXAM: Mar 18 2023 4:24PM [facility] 0504 - CT BRAIN WO IVCON / PROCEDURE REASON: Subdural hematoma * * * * Physician Interpretation * * * * EXAMINATION: CT BRAIN WO IVCON CLINICAL HISTORY: Subdural hematoma TECHNIQUE: Serial axial images without IV contrast were obtained from the vertex to the foramen magnum. MQ: CTBWO_3 CT Dose-Length Product (DLP): 774 mGy*cm CT Dose Reduction Employed: Iterative reconstruction. COMPARISON: 03/17/2023 CT brain RESULT: Post-operative change: None. Acute change: No evidence of an acute infarct or other acute parenchymal process. Hemorrhage: Left subdural hematoma overlying the temporal lobe and extending along the left tentorium and left side of the falx, unchanged. No new areas of hemorrhage. Mass Lesion / Mass Effect: Stable slight displacement of left temporal lobe. No midline shift. Chronic change: Patchy foci of low attenuation coefficient are present within the supratentorial white matter which is a nonspecific finding but likely represents moderate microvascular ischemia. Atherosclerotic calcification of the carotid and vertebral arteries. Parenchyma: There is moderate generalized volume loss. The brain parenchyma is otherwise within normal limits for age. Ventricles: The ventricles are within normal limits of size and configuration for age. Paranasal sinuses and skull: The visualized paranasal sinuses are grossly clear. The skull base and imaged soft tissues are unremarkable. Rehabilitation Counsellor (topogram) images: No additional findings. IMPRESSION: Left subdural hematoma overlying the temporal lobe and extending along the left tentorium and left side of the falx, unchanged. No new areas of hemorrhage. _ Brood Station Manager: KENY Transcribe Date/Time: Mar 18 2023 5:33P Dictated by : MICK MARTIN MD This examination was interpreted and the report reviewed and electronically signed by: MICK MARTIN MD on Mar 18 2023 5:35PM EST [id number] N [facility] CT BRAIN WO IVCON * * *Final Report* * * DATE OF EXAM: Mar 17 2023 11:39PM [facility] 0504 - CT BRAIN WO IVCON / PROCEDURE REASON: Subdural hemorrhage * * * * Physician Interpretation * * * * EXAMINATION: CT BRAIN WO IVCON CLINICAL HISTORY: Subdural hemorrhage TECHNIQUE: CT data of the head was obtained without contrast. COMPARISON: Outside CT 03/17/2023 5:05 PM RESULT: Acute change/hemorrhage: No significant change in LEFT inferior temporal acute subdural hemorrhage measuring up to 12 mm in thickness with smaller volume components extending along the LEFT tentorial leaflet, falx, and LEFT frontoparietal region. No new hemorrhage is identified. Parenchyma: Patchy foci of low attenuation coefficient are present within the supratentorial white matter which is a nonspecific finding but likely represents moderate microvascular ischemia. 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 Ventricles/Extra-axia l spaces: Ventricular enlargement concordant with the degree of parenchymal volume loss. Mass effect: Local regional mass effect without overt midline shift, not substantially changed from prior. Other: The calvarium is intact. The visualized portions of the paranasal sinuses and mastoid air cells are clear. Intraocular lens implants. No acute abnormality of the visualized orbits. IMPRESSION: No significant change in subdural hemorrhage from outside head CT performed earlier the same day. Brood Station Manager: [facility] Transcribe Date/Time: Mar 17 2023 11:42P Dictated by : JAIME VERGARA MD This examination was interpreted and the report reviewed and electronically signed by: JAIME VERGARA MD on Mar 17 2023 11:48PM EST [id number] Normal [facility] Comprehensive metabolic 2000 panelon 03-18-2023 Albumin [Mass/Vol] 4.1 g/dL Normal 3.9-4.9 [facility] Comment on above: Order Comment: Speci men Type: BLOOD SPECIMEN [facility] Address: [address] [place] [address] Performed By: #### 5 8410-2 #### [facility] CLIA [id number] 1 [place] [address] [place] ALP [Catalytic activity/Vol] 129 U/L High 38-113 [facility] Comment on above: Order Comment: Speci men Type: BLOOD SPECIMEN [facility] Address: [address] [place] [address] Performed By: #### 5 8410-2 #### [facility] CLIA [id number] [address] [place] ALT With P-5'-P [Catalytic activity/Vol] 19 U/L Normal 10-54 [facility] Comment on above: Order Comment: Speci men Type: BLOOD SPECIMEN [facility] Address: [address] [place] [address] Performed By: #### 5 8410-2 #### [facility] CLIA [id number] [address] STATES OF [facility] Anion gap [Moles/Vol] 12 mmol/L Normal 9-18 [facility] Comment on above: Order Comment: Speci men Type: BLOOD SPECIMEN [facility] Address: [address] [place] [address] Performed By: #### 5 8410-2 #### [facility] CLIA [id number] [address] OF [facility] AST With P-5'-P [Catalytic activity/Vol] 20 U/L Normal 14-40 [facility] Comment on above: Order Comment: Speci men Type: BLOOD SPECIMEN [facility] Address: [address] [place] [address] Performed By: #### 5 8410-2 #### [facility] CLIA [id number] [address] [place] Bilirubin [Mass/Vol] 0.9 mg/dL Normal 0.2-1.3 [facility] Comment on above: Order Comment: Speci men Type: BLOOD SPECIMEN [facility] Address: [address] [place] [address] Performed By: #### 5 8410-2 #### [facility] CLIA [id number] [address] [place] Calcium [Mass/Vol] 9.1 mg/dL Normal 8.5-10.2 [facility] Comment on above: Order Comment: Speci men Type: BLOOD SPECIMEN [facility] Address: [address] [place] [address] Performed By: #### 5 8410-2 #### [facility] CLIA [id number] [address] [place] Chloride [Moles/Vol] 99 mmol/L Normal 97-105 [facility] Comment on above: Order Comment: Speci men Type: BLOOD SPECIMEN [facility] Address: [address] [place] [address] Performed By: #### 5 8410-2 #### [facility] CLIA [id number] [address] [place] CO2 [Moles/Vol] 27 mmol/L Normal 22-30 [facility] Comment on above: Order Comment: Speci men Type: BLOOD SPECIMEN [facility] Address: [address] [place] [address] Performed By: #### 5 8410-2 #### [facility] LABORATORY CLIA [id number] [address] [place] Creatinine [Mass/Vol] 1.14 mg/dL Normal 0.73-1.22 [facility] Comment on above: Order Comment: Speci men Type: BLOOD SPECIMEN [facility] Address: [address] [place] [address] Performed By: #### 5 8410-2 #### [facility] CLIA [id number] [address] Creatinine and Glomerular filtration rate.predicted panel (S/P/Bld) 64 mL/min/1.73m??? Normal >=60 [facility] Comment on above: Order Comment: Speci men Type: BLOOD SPECIMEN [facility] Address: [address] [place] [address] Result Comment: Vivienne mated Glomerular Filtration Rate (eGFR) is calculated using the 2020 CKD-EPI creatinine equation. This equation utilizes serum creatinine, sex, and age as parameters. The creatinine assay has traceable calibration to isotope dilution-mass spectrometry. Refer to KDIGO guidelines for clinical interpretation. In patients with unstable renal function, e.g. those with acute kidney injury, the eGFR may not accurately reflect actual GFR. Performed By: #### 5 8410-2 #### [facility] CLIA [id number] 1 [place] [address] [place] Glucose [Mass/Vol] 217 mg/dL High 74-99 [facility] Comment on above: Order Comment: Speci men Type: BLOOD SPECIMEN [facility] Address: [address] [place] [address] Result Comment: The [place] Diabetes Association (ADA) provides guidance for cutoff values for fasting glucose and random glucose. The ADA defines fasting as no caloric intake for at least 8 hours. Fasting plasma glucose results between 100 to 125 mg/dL indicate increased risk for diabetes (prediabetes). Fasting plasma glucose results greater than or equal to 126 mg/dL meet the criteria for diagnosis of diabetes. In the absence of unequivocal hyperglycemia, results should be confirmed by repeat testing. In a patient with classic symptoms of hyperglycemia or hyperglycemic crisis, random plasma glucose results greater than or equal to 200 mg/dL meet the criteria for diagnosis of diabetes. Reference: Standards of Medical Care in Diabetes 2016, [place] [employer]. Diabetes Care. 2016.39(Suppl 1). Performed By: #### 5 8410-2 #### [facility] CLIA [id number] 1 [place] [address] [place] Potassium [Moles/Vol] 3.4 mmol/L Low 3.7-5.1 [facility] Comment on above: Order Comment: Gideon ocampo Type: BLOOD SPECIMEN [facility] Address: [address] [place] [address] Performed By: #### 5 8410-2 #### [facility] CLIA [id number] 1 [place] [address] [place] Protein [Mass/Vol] 6.2 g/dL Low 6.3-8.0 [facility] Comment on above: Order Comment: Speci men Type: BLOOD SPECIMEN [facility] Address: [address] [place] [address] Performed By: #### 5 8410-2 #### [facility] CLIA [id number] [address] Sodium [Moles/Vol] 138 mmol/L Normal 136-144 [facility] Comment on above: Order Comment: Speci men Type: BLOOD SPECIMEN [facility] Address: [address] [place] [address] Performed By: #### 5 8410-2 #### [facility] CLIA [id number] [address] [place] Urea nitrogen [Mass/Vol] 21 mg/dL Normal 9-24 [facility] Comment on above: Order Comment: Speci men Type: BLOOD SPECIMEN [facility] Address: [address] [place] [address] Performed By: #### 5 8410-2 #### [facility] CLIA [id number] [address] [facility] ED NOTEon 03-18-2023 ED NOTE HNO ID: [id number] Author: Géneiss Solano RN Service: Family Practice Author Type: Registered Nurse Type: ED Notes Filed: 03/17/2023 10:14 PM Note Text: Neuro resident @ bedside. Normal [facility] ED PROV NOTEon 03-18-2023 ED PROV NOTE HNO ID: [id number] Author: Almas Ragland DO Service: Emergency Medicine Author Type: Physician Type: ED Provider Notes Filed: 03/23/2023 1:40 PM Note Text: ED Provider Note Patient Name: Mick Cottrell : 1940 SERVICE DATE: 03/17/23 History Patient presents with: Fall: Pt sent from [place] for fall on Saturday. Found by family with AMS. +Temporal SDH +Alert on arrival -oriented x1 +expressive asphasia NIH 3 Patient is an 82-year-old male with no relevant past medical history who presents to the ED today as a transfer from [facility] for evaluation by trauma surgery and neurosurgery. Patient had a fall on Saturday, initially had no complaints but was thought to be confused today so was brought to [facility]. He was found to have a left inferior temporal subdural hemorrhage, as well as a left first metacarpal fracture, was transferred here. On arrival, patient is confused, cannot answer any questions about his fall, has no complaints at this time. History limited secondary to patient's status. Additional history obtained via EMS, family. No past medical history on file. No past surgical history on file. No family history on file. Social History Tobacco Use Smoking status: Not on file Smokeless tobacco: Not on file Substance and Sexual Activity Alcohol use: Not on file Drug use: Not on file Sexual activity: Not on file ALLERGIES Allergen Reactions Penicillins Unknown Review of Systems Unable to perform ROS: Mental status change Physical Exam Vitals [03/17/232113] BP Pulse Temp Temp src Resp SpO2 Weight Height 146/72 75 37 ?C (98.6 ?F) Oral 19 96 % 86 kg (189 lb 9.5 oz) 1.753 m (5' 9") Physical Exam Vitals and nursing note reviewed. Constitutional: General: He is not in acute distress. Appearance: Normal appearance. HENT: Head: Normocephalic and atraumatic. Mouth/Throat: Mouth: Mucous membranes are moist. Pharynx: Oropharynx is clear. Eyes: Extraocular Movements: Extraocular movements intact. Pupils: Pupils are equal, round, and reactive to light. Cardiovascular: Rate and Rhythm: Normal rate and regular rhythm. Pulses: Normal pulses. Heart sounds: Normal heart sounds. No murmur heard. No friction rub. No gallop. Pulmonary: Effort: Pulmonary effort is normal. No respiratory distress. Breath sounds: Normal breath sounds. No wheezing, rhonchi or rales. Abdominal: Palpations: Abdomen is soft. There is no mass. Tenderness: There is no abdominal tenderness. Musculoskeletal: General: Signs of injury (Left hand has ecchymosis noted, arrives with temporary brace in place.) present. No tenderness or deformity. Normal range of motion. Cervical back: Normal range of motion and neck supple. Skin: General: Skin is warm and dry. Capillary Refill: Capillary refill takes less than 2 seconds. Findings: No lesion or rash. Neurological: Mental Status: He is alert. He is disoriented. GCS: GCS eye subscore is 4. GCS verbal subscore is 4. GCS motor subscore is 6. Motor: Motor function is intact. Coordination: Coordination is intact. Comments: Waxing waning mental status. Is alert and oriented to self. Has occasional nonsensical answers to questions which I would attribute to aphasia. Occasionally distributing perseveration as well. Otherwise has no focal neurological deficits. Psychiatric: Mood and Affect: Mood normal. Behavior: Behavior normal. Diagnostic Testing ED Labs Ordered and Reviewed CBC - Abnormal; Notable for the following components: Result Value Ref Range WBC 11.94 (*) 3.70 - 11.00 k/uL Platelet Count 124 (*) 150 - 400 k/uL All other components within normal limits COMP METABOLIC PANEL - Abnormal; Notable for the following components: Protein, Total 6.2 (*) 6.3 - 8.0 g/dL Alkaline Phosphatase 129 (*) 38 - 113 U/L Glucose 217 (*) 74 - 99 mg/dL Potassium 3.4 (*) 3.7 - 5.1 mmol/L All other components within normal limits LIPASE BLD - Abnormal; Notable for the following components: Lipase 15 (*) 16 - 61 U/L All other components within normal limits ALCOHOL/ETHANOL BLD - Normal PROTHROMBIN TIME/PT - Normal ACTIVATED PTT - Normal Narrative: Unfractionated Heparin Therapeutic Ranges: Standard Heparin Nomogram: 53 to 78 seconds (anti-Xa level of 0.3 to 0.7 U/ml) Low Dose/ACS Nomogram: 49 to 67 seconds (anti-Xa level of 0.2 to 0.5 U/ml) Stroke Treatment Nomogram: 49 to 67 seconds (anti-Xa level of 0.2 to 0.5 U/ml) Note: The APTT therapeutic range has been determined for the current lot of laboratory APTT reagent in use throughout the [facility]. STAPH AUREUS PCR VITAMIN D 25 HYDROXY TOX SCREEN ROUT UR TYPE + SCREEN CONFIRM BLOOD TYPE Procedures ED Course / Clinical Impression Clinical Impressions as of 03/17/23 2352 Subdural hematoma (HCC) MDM / Disposition / Plan This patient is a 89-year-old male who presents (more content not included)... Normal [facility] Ethanol SerPl-ncon 03-18- 023 Ethanol [Mass/Vol] mg/dL Normal <11 [facility] Comment on above: Order Comment: Speci men Type: BLOOD SPECIMEN [facility] Address: [place] [id number] Performed By: #### 5 8410-2 #### [facility] CLIA [id number] 1 [place] [id number] [place] HISTORY PHYSICALon HISTORY PHYSICAL HNO ID: [id number] Author: Penny Cordova MD Service: General Surgery Author Type: Physician Type: HANDP Filed: 03/18/2023 10:01 AM Note Text: TRAUMA SURGERY HANDP [facility] ARRIVAL DATE: 03/17/2023 ARRIVAL TIME: 9 pm CATEGORY: consult INJURY DATE: 03/15 INJURY TIME: unknown Subjective 82 year old male pmh vascular dementia, bph, sanju, copd, DMII, hx aortic valve replacement, hx bladder cancer s/p excision x2, hx cva, hx 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 His son saw him today and noticed it was difficult for him to get out of bed and walk and didn't seem like himself. They know that he fell on Saturday but are unsure about LOC. He had a little blood on the side of his nose and a bruised hand. He was seen at [place] and transferred here. He lives at home alone and does not use a walker. He is normally AANDOx3 but is now AANDOx1. HPI/CHIEF COMPLAINT: OTHER MECHANISMS: Fall-Same Level BRIEF DESCRIPTION OF INJURIES: Transverse fracture base of 1st metacarpal bone Acute sdh along L temporal and frontoparietal bone LAST FLUIDS/MEAL: 4 CODE STATUS: Discussed with son DNR DNI ALLERGIES Allergen Reactions Penicillins Unknown No medications prior to admission. DATE OF LAST TETANUS: unknown Immunization History Administered Date(s) Administered COVID-19 original vaccine, age 12+ yr, monovalent (PFIZER-BIONTECH - PURPLE TOP) 03/14/2021 COVID-19 original vaccine, full dose, monovalent (MODERNA) 07/27/2020 08/24/2020 COVID-19 vaccine, age 12+ yr, 2022- season (MODERNA) 01/03/2023 COVID-19 vaccine, age 12+ yr, bivalent (PFIZER-BIONTECH) 12/27/2021 No past medical history on file. No past surgical history on file. No family history on file. ROS: Is the patient having any pain? No 0 on a scale of 0 to 10 Constitutional: Negative Eye/Ear/Nose: Negative Respiratory: Negative Cardiovascular: Negative GI/Liver/Biliary: Negative Genitourinary: Negative Psychiatric: Negative Neurologic: Negative Musculoskeletal: Negative Integument: Negative Endocrine: Negative Heme/Lymph: Negative Objective Physical Exam: VITALS: 03/17/23 2148 03/17/23 2200 03/17/23 2300 03/17/23 2330 BP: 130/69 150/78 163/80 140/58 Pulse: 78 70 70 71 Resp: 18 15 16 15 Temp: TempSrc: SpO2: 98% 96% 97% 96% Weight: Height: NEURO: Alert AND Oriented x 1, GCS 15, Cranial Nerves II-XII grossly Intact, Moves All Extremities, Strength Symmetrical, No Sensory Deficits. HEENT: Head: small superficial laceration on nasal crease on left, no bony step-offs, midface stable to palpation. Eyes: PERRL, conjunctiva/corneas without lesions, EOMI. Nose: Septum midline, no crepitus with motion. Throat: Oral mucosa without lacerations, teeth in place, tongue without lacerations. NECK: No midline pain with palpation, no lacerations/wounds, trachea midline. RESPIRATORY: No abrasions or contusions, no crepitus, chest wall without ttp, equal excursion. Unlabored breathing on RA CARDIOVASCULAR: regular rate, good perfusion throughout ABDOMEN: Soft, non-distended, non-tender, no scars or lacerations, no rebound or guarding. No masses or organomegaly. PELVIC/PERINEAL: Pelvis stable to palpation, no blood noted at urethra meatus, gluteal contraction intact. BACK/SPINE: Thoracolumbar spinal column non-tender, no step-off or deformity noted, no external injury noted. EXTREMITIES: Arm/shoulder normal bilaterally, forearm/elbow normal bilaterally, left hand with ecchymosis, thigh/hip normal bilaterally, leg/knee normal bilaterally, foot/ankle normal bilaterally. RADIOLOGICAL/OTHER TEST DATA: CT BRAIN WO IVCON Final Result IMPRESSION: No significant change in subdural hemorrhage from outside head CT performed earlier the same day. Brood Station Manager: KENY Transcribe Date/Time: Mar 17 2023 11:42P Dictated by : JAIME VERGARA MD This examination was interpreted and the report reviewed and electronically signed by: JAIME VERGARA MD on Mar 17 2023 11:48PM EST XR PELVIS 1V AP Final Result IMPRESSION: Evaluation partially limited due to positioning. No acute fracture identified Brood Station Manager: [facility] Transcribe Date/Time: Mar 17 2023 10:54P Dictated by : ROXANN MADDEN MD This examination was interpreted and the report reviewed and electronically signed by: ROXANN MADDEN MD on Mar 17 2023 10:55PM EST Labs: Recent Labs 03/17/23 2235 NA 138 K 3.4* CHLOR 99 CO2 27 BUN 21 CREAT 1.14 GLUC 217* ANION 12 CA 9.1 ALB 4.1 AST 20 ALT 19 ALKPHOS 129* TBILI 0.9 WBC 11.94* HB 14.6 HCT 43.3 PLT 124* INR 1.1 Assessment/Plan Active Hospital Problems Diagnosis Date Noted SDH (subdural hematoma) (HCC) 03/17/2023 Fall 03/18/2023 Hypokalemia 03/18/2023 82 year old male s/p glf Imaging performed: CT HN CXR PXR, L hand XR Traumatic Injuries: Transverse fracture base of 1st metacarpal bone Ac (more content not included)... Normal [facility] Lipase SerPl-cCncon 03-18-20 23 Lipase [Catalytic activity/Vol] 15 U/L Low 16-61 [facility] Comment on above: Order Comment: Speci men Type: BLOOD SPECIMEN [facility] Address: [address] [place] [address] Performed By: #### 5 8410-2 #### [facility] CLIA [id number] 1 [place] [address] [place] NURSING PROGon 03-18-2023 NURSING PROG HNO ID: [id number] Author: Kylee Seaman RN Service: Nursing Author Type: Registered Nurse Type: Nursing Progress Note Filed: 03/18/2023 6:32 PM Note Text: Pt transferred from 4801 to 9112. Report called to FIDELINA Conner. Son Jason notified of transfer. Belongings sent with pt Normal [facility] PT panel Coag (PPP)on 2022 INR Coag (PPP) [Relative time] 1.1 {INR} Normal 0.9-1.3 [facility] Comment on above: Order Comment: Gideon ocampo Type: BLOOD SPECIMEN [facility] Address: [address] [place] [address] Result Comment: Sherri min K Antagonist (VKA) Therapeutic Range: INR 2 to 3 (Target INR of 2.5) Note: For patients treated with VKA drugs, such as warfarin, the [place] [employer] 2012 Guideline recommends a therapeutic INR range of 2 to 3 (target INR of 2.5). This recommendation includes high-risk patients with antiphospholipid syndrome with previous arterial or venous thromboembolism, current-generation mechanical or bioprosthetic aortic heart valve replacement. Note: Patients with mechanical aortic valve replacement and additional risk factors for thromboembolic events (atrial fibrillation, previous thromboembolism, LV dysfunction, hypercoagulable conditions) or an older generation mechanical AVR (i.e., ball in-Cage) or any mechanical MVR should have a INR therapeutic range of 2.5 to 3.5 (target INR of 3). Deep GH, et al. Chest 2012, 141:7S-47S Miguel Angel RA, et al. [facility] 2017, 70: 252-289 Performed By: #### 3 4528-0, 23334-7 #### [facility] [facility] CLIA [id number] 1 [place] [address] [place] PT Coag (PPP) [Time] 11.8 s Normal 9.7-13.0 [facility] Comment on above: Order Comment: Gideon ocampo Type: BLOOD SPECIMEN [facility] Address: [address] [place], [place] [id number] Performed By: #### 3 4528-0, 18789-9 #### [facility] CLIA [id number] 1 [place] [address] [place] STAPH AUREUS PCRon 3 S. aureus and MRSA panel JONG+probe (Nose) Abnormal Negative [facility] Comment on above: Order Comment: Gideon ocampo Type: BLOOD SPECIMEN [facility] Address: [place] [id number] Result Comment: Posi tive for Staphylococcus aureus by PCR. Negative for MRSA by PCR Performed By: #### 3 4528-0, 59597-6 #### [facility] CLIA [id number] 1 [place] [address] [place] THERAPY NTon 03-18-2023 THERAPY NT HNO ID: [id number] Author: Kacie Reyna CCC-CASH APPLICATIONS MANAGER Service: Speech/Swallow Author Type: Speech Language Pathologist Type: Therapy (PT/OT/Speech/Resp) Filed: 03/18/2023 12:06 PM Note Text: Speech Therapy Clinical Swallow Evaluation SERVICE DATE: 03/18/2023 SERVICE TIME: 924 ROOM: [place] [id number] IMPRESSION: Swallow Deficits Identified / Suspected: Oropharyngeal dysphagia Diet Recommendations: Pureed IDDSI Level 4 Thin Liquids IDDSI Level 0 Medications crushed in puree (pudding/applesauce) Swallowing Precautions Recommendations: 1:1 Supervision Alert (patient should be fully alert for P.O. intake) Alternate bites and sips Use white small straw instead of larger clear one Feed / Eat at a slow rate Sit upright 90 degrees for all PO Small Bite/Sip Nursing Recommendations: See swallow guide posted in patients room, Reinforce use of swallowing strategies Recommended Discharge Disposition: Subacute/SNF Justification for Recommended Discharge Disposition: Patient requires daily, facility-based rehabilitation from at least one discipline due to:, aspiration risk requiring ongoing medical management, dysphagia requiring frequent assessment and diet modification Current Hospital Course: Patient admitted on 03/17. 03/17 CT brain: subdural hemorrhage. Reason for Hospital Admission: SDH Rehabilitation Precautions: Dysphagia, Aspiration Precautions, Modified Diet, Cognitive Linguistics Deficits, Communication Deficits Reason for Speech Therapy Consult: SDH: assess swallowing and speech/cognition Relevant Past Medical History: Dementia, COPD, DM, CVA, TIA Response to Therapy Interventions: Aspiration Risk, Cognitive Deficits, Aphasia, Fatigue, Multiple medical concerns Continue skilled CASH APPLICATIONS MANAGER services due to : Dysphagia Speech Therapy Problem List: Dysphagia Subjective: Patient sleepy but able to participate in therapy. Aphasic/dysarthric. Current Status Oral Hygiene: Clear, dry oral cavity, Oral Health Assessment Tool (OHAT) Dentition: Denture-Upper Full, Retains Natural Dentition Current Feeding Method: IV Current Diet Textures: NPO Current Level Of Communication: Verbal, Aphasia, Dysarthria Current Management Of Secretions: Able to expectorate adequately Oral Motor Exam: Within Functional Limits Except Lingual ROM Impaired: Protrusion Lingual Protrusion Deviation: (Unable to) Lingual Strength Impaired: Bilateral Oral Health Assessment Tool (OHAT) Lips: 1 Tongue: 1 Gums and Tissues: 1 Saliva: 1 Natural Teeth: 0 Dentures: 0 Oral Cleanliness: 0 Dental Pain: 0 OHAT Total Score: 4 0 = Healthy 1 = Changes 2 = Unhealthy Swallow Position Of Patient During Assessment: Upright In Bed Consistencies Presented: Thin Liquids IDDSI Level 0, Pureed IDDSI Level 4 Compensatory Strategies Utilized During Assessment: 1:1 Supervision, Alert (patient should be fully alert for P.O. intake), Alternate bites and sips, Feed / Eat at a slow rate, Sit upright 90 degrees for all PO, Small Bite/Sip Clinical Swallow Oral Pharyngeal Swallow Assessment: Within Functional Limits Except Preparatory / Oral Phase: Within Functional Limits Except Bolus Manipulation: Suspect impairment A-P Transit: Suspect impairment Oral Residue: Moderately Impaired Pharyngeal Phase: Within Functional Limits Except Initiation of Swallow: Suspect impairment Range of Hyoid/Laryngeal Elevation: Suspect impairment Reflexive Throat Clear and Cough after Swallowing: Yes, Post-Swallow Multiple Swallows: No Assessed swallowing at the bedside Unable to self feed Trialed thin via cup and straw: no signs or symptoms of aspiration Unable to complete 3 ounce water challenge due to cognition Trialed larger clear straw: +cough Trialed puree: suspected slow a-p movement, delay to swallow, oral holding but no signs or symptoms of aspiration Recommend modified diet + safe swallow strategies Speech Therapy to follow for dysphagia management Patient /Caregiver Goals: Eat/Drink Without Restrictions Goals for Plan of Care: SWALLOWING: Patient / Caregiver will demonstrate knowledge of taught compensatory strategies and dietary consistency recommendations to optimize functional swallow function without overt clinical signs and symptoms of aspiration or dysphagia Swallow Goals: Patient will tolerate Pureed IDDSI Level 4 diet consistency while utilizing compensatory/swallowi ng strategies given maximal cues in 90% of trials so that the patient will minimize the signs/symptoms of dysphagia. Patient will tolerate Thin Liquids IDDSI Level 0 consistency while utilizing compensatory/swallowi ng strategies given maximal cues in 90% of trials so that the patient will minimize the signs/symptoms of dysphagia. Patient will participate with swallow re-assessment to determine if food and drink texture can be safely upgraded vs need for instrumentation. Therapeutic Tasks: Lingual/Pha (more content not included)... Normal [facility] TOX SCREEN ROUT URon 023 Amphetamines Confirm (U) [Mass/Vol] Negative Normal Negative [facility] Comment on above: Order Comment: Speci men Type: BLOOD SPECIMEN [facility] Address: [address] [place] [address] Result Comment: Cuto ff threshold at 1000 ng/mL. Performed By: #### 5 8410-2 #### [facility] CLIA [id number] [address] [place] BARBITURATES, URINE Negative Normal Negative [facility] Comment on above: Order Comment: Speci men Type: BLOOD SPECIMEN [facility] Address: [address] [place] [address] Result Comment: Cuto ff threshold at 200 ng/mL. Performed By: #### 5 8410-2 #### [facility] CLIA [id number] 1 [place] [address] [place] BENZODIAZEPINES, UR Negative Normal Negative [facility] Comment on above: Order Comment: Speci men Type: BLOOD SPECIMEN [facility] Address: [address] [place] [address] Result Comment: Cuto ff threshold at 200 ng/mL. Performed By: #### 5 8410-2 #### [facility] CLIA [id number] 1 [place] [address] [place] Cannabinoids Screen Ql (U) Negative Normal Negative [facility] Comment on above: Order Comment: Speci men Type: BLOOD SPECIMEN [facility] Address: [address] [place] [address] Result Comment: Cuto ff threshold at 50 ng/mL. Performed By: #### 5 8410-2 #### [facility] CLIA [id number] [address] [place] Cocaine Ql (U) Negative Normal Negative [facility] Comment on above: Order Comment: Speci men Type: BLOOD SPECIMEN [facility] Address: [address] [place] [address] Result Comment: Cuto ff threshold at 300 ng/mL. Performed By: #### 5 8410-2 #### [facility] CLIA [id number] [address] [place] Ethanol (U) [Mass/Vol] <11 Normal <11 [facility] Comment on above: Order Comment: Speci men Type: BLOOD SPECIMEN [facility] Address: [address] [place] [address] Performed By: #### 5 8410-2 #### [facility] CLIA [id number] [address] [place] Opiates Screen Ql (U) Negative Normal Negative [facility] Comment on above: Order Comment: Speci men Type: BLOOD SPECIMEN [facility] Address: [address] [place] [address] Result Comment: Cuto ff threshold at 300 ng/mL. Performed By: #### 5 8410-2 #### [facility] CLIA [id number] [address] oxyCODONE cutoff Screen (U) [Mass/Vol] Negative Normal Negative [facility] Comment on above: Order Comment: Speci men Type: BLOOD SPECIMEN [facility] Address: [address] [place] [address] Result Comment: Cuto ff threshold at 100 ng/mL. Performed By: #### 5 8410-2 #### [facility] CLIA [id number] [address] [place] Phencyclidine Ql (U) Negative Normal Negative [facility] Comment on above: Order Comment: Speci men Type: BLOOD SPECIMEN [facility] Address: [address] [place] [address] Result Comment: Cuto ff threshold at 25 ng/mL. Performed By: #### 5 8410-2 #### [facility] CLIA [id number] [address] [place] TYPE + SCREENon 03-18-2023 ABO O Normal [facility] Comment on above: Order Comment: Speci men Type: BLOOD SPECIMENOrdering Facility: [facility] Address: [address] [place] [address] Performed By: #### T SCR ####[facility] BLOOD BANKCLIA [id number] [address] [place] HISTORICAL AB SCR STATUS Negative Normal [facility] Comment on above: Order Comment: Speci men Type: BLOOD SPECIMENOrdering Facility: [facility] Address: [address] [place] [address] Performed By: #### T SCR ####[facility] BLOOD BANKCLIA [id number] [address] [place] Rh Nom (Bld) Positive Normal [facility] Comment on above: Order Comment: Speci men Type: BLOOD SPECIMENOrdering Facility: [facility] Address: [address] [place] [address] Performed By: #### T SCR ####[facility] BLOOD BANKCLIA [id number] [address] OF [facility] TYPE AND SCREEN EXPIRATION 03/20/2023 23:59 Normal [facility] Comment on above: Order Comment: Speci men Type: BLOOD SPECIMENOrdering Facility: [facility] Address: [address] [place] [address] Performed By: #### T SCR ####[facility] BLOOD BANKCLIA [id number] [address] [place] URINALYSIS, REFLEX MICROSCOP ICon 03-18-2023 Bilirubin Ql (U) Negative Normal Negative [facility] Comment on above: Order Comment: Speci men Type: BLOOD SPECIMEN [facility] Address: [address] [place] [address] Performed By: #### 3 4528-0, 15304-1 #### [facility] CLIA [id number] [address] [place] Clarity (Unsp spec) Clear Normal Clear [facility] Comment on above: Order Comment: Speci men Type: BLOOD SPECIMEN [facility] Address: [address] [place] [address] Performed By: #### 3 4528-0, 60549-8 #### [facility] CLIA [id number] [address] [facility] Color (U) Light Yellow Normal yellow [facility] Comment on above: Order Comment: Speci men Type: BLOOD SPECIMEN [facility] Address: [address] [place] [address] Performed By: #### 3 4528-0, 67302-4 #### [facility] CLIA [id number] [address] Glucose Test strip (U) [Mass/Vol] 1+ Abnormal Trace, Negative [facility] Comment on above: Order Comment: Speci men Type: BLOOD SPECIMEN [facility] Address: [address] [place] [address] Performed By: #### 3 4528-0, 24418-0 #### [facility] CLIA [id number] [address] Hemoglobin Ql (U) 2+ Abnormal Negative, Trace [facility] Comment on above: Order Comment: Speci men Type: BLOOD SPECIMEN [facility] Address: [address] [place] [address] Performed By: #### 3 4528-0, 98884-5 #### [facility] CLIA [id number] [address] [facility] Ketones Ql (U) Negative Normal Negative, Trace [facility] Comment on above: Order Comment: Speci men Type: BLOOD SPECIMEN [facility] Address: [address] [place] [address] Performed By: #### 3 4528-0, 59125-4 #### [facility] CLIA [id number] [address] [place] Leukocyte esterase Test strip Ql (U) 75 Yeni/uL Abnormal Negative, 25 Yeni/uL [facility] Comment on above: Order Comment: Speci men Type: BLOOD SPECIMEN [facility] Address: [address] [place] [address] Performed By: #### 3 4528-0, 48254-4 #### [facility] CLIA [id number] [address] Nitrite Ql (U) Negative Normal Negative [facility] Comment on above: Order Comment: Speci men Type: BLOOD SPECIMEN [facility] Address: [address] [place] [address] Performed By: #### 3 4528-0, 19696-7 #### [facility] CLIA [id number] [address] [place] pH (U) 6.5 [pH] Normal 5.0-8.0 [facility] Comment on above: Order Comment: Speci men Type: BLOOD SPECIMEN [facility] Address: [address] [place] [address] Performed By: #### 3 4528-0, 83901-0 #### [facility] CLIA [id number] [address] [facility] Protein (U) [Mass/Vol] Trace Normal Trace , Negative [facility] Comment on above: Order Comment: Speci men Type: BLOOD SPECIMEN [facility] Address: [address] [place] [address] Performed By: #### 3 4528-0, 74579-2 #### [facility] CLIA [id number] [address] [place] RBC LM.HPF (Urine sed) [#/Area] 6-10 /HPF Abnormal 0-3 /HPF [facility] Comment on above: Order Comment: Speci men Type: BLOOD SPECIMEN [facility] Address: [address] [place] [address] Performed By: #### 3 4528-0, 45270-9 #### [facility] CLIA [id number] [address] Specific gravity (U) [Rel density] 1.016 Normal 1.005-1.030 [facility] Comment on above: Order Comment: Speci men Type: BLOOD SPECIMEN [facility] Address: [address] [place] [address] Performed By: #### 3 4528-0, 34612-0 #### [facility] CLIA [id number] [address] Urobilinogen Ql (U) Normal Normal Negative [facility] Comment on above: Order Comment: Speci men Type: BLOOD SPECIMEN [facility] Address: [address] [place] [address] Performed By: #### 3 4528-0, 77872-9 #### [facility] CLIA [id number] [address] WBC LM.HPF (Urine sed) [#/Area] 0-5 /HPF Normal 0-5 /HPF [facility] Comment on above: Order Comment: Speci men Type: BLOOD SPECIMEN [facility] Address: [address] [place] [address] Performed By: #### 3 4528-0, 10739-6 #### [facility] CLIA [id number] [address] XR PELVIS 1V APon 03-18-2023 XR PELVIS 1V AP * * *Final Report* * * DATE OF EXAM: Mar 17 2023 10:49PM AKX 5239 - XR PELVIS 1V AP / PROCEDURE REASON: Pelvic trauma * * * * Physician Interpretation * * * * EXAMINATION: XR PELVIS 1V AP CLINICAL HISTORY: Pelvic trauma Technique: XR PELVIS 1V AP -- NOT APPLICABLE with 1 views on 1 images Comparison: None RESULT: Evaluation of both hips is limited due to positioning, particularly on the right. No displaced fracture is identified. There is diffuse osteopenia. Hip joint spaces are preserved bilaterally. There are prominent vascular calcifications. IMPRESSION: Evaluation partially limited due to positioning. 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 CLIA [id number] [address] [place] [address] [facility] Absolute lymphocyte countOrd ered By: Brendon Hope on 03-17-2023 Lymphocytes Auto (Unsp spec) [#/Vol] 0.76 10*3/uL 0.83-4.51 [facility] Basophil percentageOrdered B y: Brendon Hope on 03-17-2023 Basophils/100 WBC (Bld) 0.2 % 0-1 [facility] Bilirubin [Mass/Vol] 0.90 mg/dL 0.20-1.00 [facility] Comment on above: For patients on eltr ombopag therapy, use of Dimension [place] TBIL is not recommended. Chloride [Moles/Vol] 101 mmol/L 98-107 [facility] Eosinophils/100 WBC (Bld) 0.0 % 0-5 [facility] Glucose [Mass/Vol] 236 mg/dL 74-106 [facility] Comment on above: Glucose result great er than or equal to 200 mg/dLsuggests DIABETES MELLITUS per A.D.A. criteria. Neutrophils (Bld) [#/Vol] 9.4 10*3/uL 2.0-7.7 [facility] Neutrophils/100 WBC (Bld) 84.7 % 47-70 [facility] Potassium [Moles/Vol] 3.7 mmol/L 3.5-5.1 [facility] Protein [Mass/Vol] 7.3 g/dL 6.4-8.2 [facility] Sodium [Moles/Vol] 137 mmol/L 136-145 [facility] WBC (Bld) [#/Vol] 11.1 10*3/uL 4.4-11.0 [facility] Blood erythrocytes count (nu mber/volume)Ordered By: Brendon Hope on 03-17-2023 RBC (Bld) [#/Vol] 5.03 10*6/uL 4.6-6.2 [facility] Blood hemoglobin measurement (mass/volume)Ordered By: Brendon Hope on 03-17-2023 Hemoglobin (Bld) [Mass/Vol] 15.7 g/dL 13.0-16.5 [facility] Blood lymphocytes/100 leukoc ytesOrdered By: Brendon Hope on 03-17-2023 Lymphocytes/100 WBC (Bld) 6.9 % 19-41 [facility] Blood monocytes/100 leukocyt esOrdered By: Brendon Hope on 03-17-2023 Monocytes/100 WBC (Bld) 7.7 % 0-10 [facility] Blood platelet mean volumeOr dered By: Brendon Hope on 03-17-2023 Platelet mean volume (Bld) [Entitic vol] 11.9 fL 6.2-12.0 [facility] Determination of erythrocyte mean corpuscular volume (MCV)Ordered By: Brendon Hope on 03-17-2023 MCV (RBC) [Entitic vol] 96.2 fL 80-94 [facility] ED NOTEon 03-17-2023 ED NOTE HNO ID: [id number] Author: Génesis Solano, FIDELINA Service: Family Practice Author Type: Registered Nurse Type: ED Notes Filed: 03/17/2023 9:11 PM Note Text: Cardene drip decreased to 7.5mg Normal [facility] ED NOTE HNO ID: [id number] Author: Reji Leija, FIDELINA Service: ? Author Type: Registered Nurse Type: ED Notes Filed: 03/17/2023 9:08 PM Note Text: Bed: 05-ED Expected date: Expected time: Means of arrival: Comments: [place] transfer Normal [facility] ED PROV NOTEon 03-17-2023 ED PROV NOTE HNO ID: [id number] Author: Almas Ragland DO Service: Emergency Medicine Author Type: Physician Type: ED Provider Notes Filed: 03/17/2023 9:59 PM Note Text: The patient was seen and evaluated with the resident physician. I performed a separate HANDP. Please see the resident's note for further details. I agree with the resident's assessment and plan. I personally saw the patient and performed a substantive portion of the visit including all aspects of the medical decision making. HPI: Patient presents to the ED with a chief complaint of fall. Onset Saturday. He was seen at [facility] and diagnosed with intracranial bleeding. Started on a Cardene drip and sent to our facility for trauma consult. PE: The patient is alert cooperative with a GCS of 15. He is without complaint of pain. No obvious head trauma. Skin is dry and intact. ALMAS RAGLAND 03/17/232158 Normal [facility] Hematocrit Auto (Bld) [Volum e fraction]Ordered By: Brendon Hope on 03-17-2023 Hematocrit (Bld) [Volume fraction] 48.4 % 40-54 [facility] INR in Blood by Coagulation assayOrdered By: Brendon Hope on 03-17-2023 INR Coag (Bld) [Relative time] 1.8 {INR} [facility] Influenza virus A and B and SARS-CoV-2 (COVID-19) Ag panel - Upper respiratory specimOrdered By: Brendon Hope on 03-17-2023 SARS-CoV-2 (COVID-19) RNA JONG+probe Ql (Resp) [facility] Laboratory - Chemistry and C hemistry - challengeOrdered By: Brendon Hope on 03-17-2023 ALP [Catalytic activity/Vol] 138 U/L 45-117 [facility] ALT [Catalytic activity/Vol] 27 U/L 16-61 [facility] CO2 [Moles/Vol] 29.0 mmol/L 21.0-32.0 [facility] Globulin (S) [Mass/Vol] 3.5 g/dL 2.2-4.2 [facility] Urea nitrogen/Creatinine [Mass ratio] 13.4 mg/mg 10-20 [facility] Laboratory - CoagulationOrde red By: Brendon Hope on 03-17-2023 PT Coag (PPP) [Time] 21.2 s 11.7-14.9 [facility] Laboratory - Hematology and Cell countsOrdered By: Brendon Hope on 03-17-2023 Erythrocyte distribution width (RBC) [Entitic vol] 52.8 fL 35.1-43.9 [facility] Erythrocyte distribution width (RBC) [Ratio] 14.8 % 11.6-14.6 [facility] Immature granulocytes/100 WBC (Bld) 0.500 % 0.0-0.9 [facility] Comment on above: IG% - Immature Granu locytes (promyelocytes, myelocytes and metamyelocytes) > 1% indicates that a LEFT SHIFT is Present. MCH (RBC) [Entitic mass] 31.2 pg 27.0-32.0 [facility] Nucleated RBC/100 WBC (Bld) [Ratio] 0 % 0-5 [facility] MCHC Auto (RBC) [Mass/Vol]Or dered By: Brendon Hope on 03-17-2023 MCHC (RBC) [Mass/Vol] 32.4 g/dL 32-36 [facility] No Panel InformationOrdered By: Brendon Hope on 03-17-2023 Estimated Creatinine Clearance Calc 45.27 ml/min [facility] Estimated GFR (MDRD) Amer 66 mL/min >60 [facility] Comment on above: GFR Calc Estimated GFR (MDRD) Non-Af Amer 54 mL/min >60 [facility] Comment on above: Non- GFR Calc Ethyl Alcohol Level < 3.0 mg/dL [facility] Comment on above: The serum:whole bloo d ethanol ratio is approximately 1.14and varies slightly with hematocrit. Medical Alcohol reference interval and critical value innon-tolerant individuals; 50 - 100 Impairment 100 Intoxication 100 - 250 Severe Poisoning 250 - 400 Deep/possible fatal coma Troponin I High Sensitivity 42 pg/mL 3.0-78.0 [facility] Comment on above: Please Note: New Michelle t Units and Gender Specific Reference Ranges. For more information see Policy Stat Procedure [place] High Sensitivity Troponin (TNIH) and attachments. Platelets bldOrdered By: Radha Hope on 03-17-2023 Platelets (Bld) [#/Vol] 143 10*3/uL 150-450 [facility] Serum or plasma albumin cr urement (mass/volume)Ordered By: Brendon Hope on 03-17-2023 Albumin [Mass/Vol] 3.8 g/dL 3.2-5.0 [facility] Serum or plasma albumin/glob ulin mass ratioOrdered By: Brendon Hope on 03-17-2023 Albumin/Globulin [Mass ratio] 1.1 {ratio} 0.9-2.4 [facility] Serum or plasma calcium cr urement (mass/volume)Ordered By: Brendon Hope on 03-17-2023 Calcium [Mass/Vol] 9.7 mg/dL 8.5-10.1 [facility] Serum or plasma creatinine m easurement (mass/volume)Ordered By: Brendon Hope on 03-17-2023 Creatinine [Mass/Vol] 1.34 mg/dL 0.70-1.30 [facility] Comment on above: The validity of the calculated GFR & GFRAA in patients over 70 years has not been determined. Clinical correlation is essential. Serum or plasma urea nitroge n measurement (mass/volume)Ordered By: Brendon Hope on 03-17-2023 Urea nitrogen [Mass/Vol] 18 mg/dL 7-18 [facility] Thin prep Papanicolaou smear with manual screeningOrdered By: Brendon Hope on 03-17-2023 Thin prep Papanicolaou smear with manual screening 22 U/L 15-37 [facility] Thin prep Papanicolaou smear with manual screening 7 5-15 [facility] Upper respiratory specimen i nfluenza A virus, influenza B virus, and severe acute resOrdered By: Brendon Hope on 03-17-2023 Upper respiratory specimen influenza A virus, influenza B virus, and severe acute res [facility] Upper respiratory specimen influenza A virus, influenza B virus, and severe acute res [facility] LIPID PANELon 03-05-2023 CHOL/HDL RATIO 3.6 Normal <=4.0 [facility] Comment on above: Order Comment: Locat ion: Performed By: #### L AB18 #### HANNAH RICHARD ([id number]) [facility] ([facility]) [address], [address] [place] [address] Cholesterol [Mass/Vol] 120 mg/dL Normal <=200 [facility] Comment on above: Order Comment: Locat ion: Performed By: #### L AB18 #### HANNAH RICHARD ([id number]) [facility] ([facility]) [address], [address] [address] Cholesterol in HDL [Mass/Vol] 33 mg/dL Low >60 [facility] Comment on above: Order Comment: Locat ion: Performed By: #### L AB18 #### HANNAH RICHARD ([id number]) [facility] ([facility]) [address] [place] [address] Cholesterol in LDL [Mass/Vol] 55 mg/dL Normal <=130 [facility] Comment on above: Order Comment: Locat ion: Performed By: #### L AB18 #### HANNAH RICHARD ([id number]) [facility] ([facility]) [address] [address] NON-HDL CHOL 87 Normal [facility] Comment on above: Order Comment: Locat ion: Result Comment: LDL and Non-HDL goal dependent upon individual risk Performed By: #### L AB18 #### HANNAH RICHARD ([id number]) [facility] ([facility]) [address] [address] Triglyceride [Mass/Vol] 158 mg/dL High <=150 [facility] Comment on above: Order Comment: Locat ion: Performed By: #### L AB18 #### HANNAH RICHARD ([id number]) [facility] ([facility]) [address] [address] VLDL-CALC 31.6 mg/dl High 0-30 [facility] Comment on above: Order Comment: Locat ion: Performed By: #### L AB18 #### HANNAH RICHARD ([id number]) [facility] ([facility]) [address] [facility] [address] [place] [address] PT/INR POINT OF CAREon 02-27 POC INR 2.1 [facility] Comment on above: Result Comment: For patients on oral anticoagulants, the therapeutic INR reference range is 2.0 to 3.5 PT/INR (POC Device) 25.0 seconds High 9.4-12.1 [facility] PT/INR POINT OF CAREon 01-29 POC INR 2.7 [facility] Comment on above: Result Comment: For patients on oral anticoagulants, the therapeutic INR reference range is 2.0 to 3.5 PT/INR (POC Device) 32.0 seconds High 9.4-12.1 [facility] POC INR 5.7 [facility] Comment on above: Result Comment: For patients on oral anticoagulants, the therapeutic INR reference range is 2.0 to 3.5 PT/INR (POC Device) 68.0 seconds High 9.4-12.1 [facility] PT/INR POINT OF CAREon 01-04 POC INR 2.4 [facility] Comment on above: Result Comment: For patients on oral anticoagulants, the therapeutic INR reference range is 2.0 to 3.5 PT/INR (POC Device) 28.5 seconds High 9.4-12.1 [facility] BASIC METABOLIC PANELon 12-23 Anion gap [Moles/Vol] 9 mmol/L Normal 5-15 [facility] Comment on above: Order Comment: Locat ion: Performed By: #### L AB15 #### HANNAH RICHARD ([id number]) [facility] [address], [address] [place] [address] B/C RATIO 15.8 Normal 10.0-28.6 [facility] Comment on above: Order Comment: Locat ion: Performed By: #### L AB15 #### HANNAH RICHARD ([id number]) [facility] ([facility]) [address], [address] [place] [address] Calcium [Mass/Vol] 10.0 mg/dL Normal 8.7-10.4 [facility] Comment on above: Order Comment: Locat ion: Performed By: #### L AB15 #### HANNAH RICHARD ([id number]) [facility] ([facility]) [address], [address] [place] [address] Chloride [Moles/Vol] 103 mmol/L Normal 98-107 [facility] Comment on above: Order Comment: Locat ion: Performed By: #### L AB15 #### HANNAH RICHARD ([id number]) [facility] ([facility]) [address] [address] CO2 [Moles/Vol] 29 mmol/L Normal 20-31 [facility] Comment on above: Order Comment: Locat ion: Performed By: #### L AB15 #### HANNAH RICHARD ([id number]) [facility] [address] [address] Creatinine [Mass/Vol] 1.2 mg/dL Normal 0.7-1.3 [facility] Comment on above: Order Comment: Locat ion: Performed By: #### L AB15 #### HANNAH RICHARD ([id number]) [facility] [address] [address] GFR 60.4 mL/min/1.73m*2 Normal >=60.0 [facility] Comment on above: Order Comment: Locat ion: Performed By: #### L AB15 #### HANNAH RICHARD ([id number]) [facility] ([facility]) [address] [address] Glucose [Mass/Vol] 179 mg/dL High 74-106 [facility] Comment on above: Order Comment: Locat ion: Performed By: #### L AB15 #### HANNAH RICHARD ([id number]) [facility] ([facility]) [address], [address] [address] Potassium [Moles/Vol] 4.3 mmol/L Normal 3.5-5.1 [facility] Comment on above: Order Comment: Locat ion: Performed By: #### L AB15 #### HANNAH RICHARD ([id number]) [facility] ([facility]) [address] [address] Sodium [Moles/Vol] 141 mmol/L Normal 136-145 [facility] Comment on above: Order Comment: Locat ion: Performed By: #### L AB15 #### HANNAH RICHARD ([id number]) [facility] ([facility]) [address] [address] Urea nitrogen [Mass/Vol] 19 mg/dL Normal 9-23 [facility] Comment on above: Order Comment: Locat ion: Performed By: #### L AB15 #### HANNAH RICHARD ([id number]) [facility] ([facility]) [address] [address] [id number] 01-03-2023 HbA1c (Bld) [Mass fraction] 7.0 % High 0.0-5.7 [facility] Comment on above: Order Comment: Locat ion: Result Comment: Refe rence Interval: Normal: below 5.7% Prediabetes: 5.7% to 6.4% Diabetes: 6.5% or above Performed By: #### L AB90 #### HANNAH RICHARD ([id number]) [facility] ([facility]) [address] [place] [address] PT/INR POINT OF CAREon 12-18 POC INR 3.0 [facility] Comment on above: Result Comment: For patients on oral anticoagulants, the therapeutic INR reference range is 2.0 to 3.5 PT/INR (POC Device) 35.4 seconds High 9.4-12.[address] [facility] [address] CHEST WITHOUT CONTRASTon 12-16-2022 CT CHEST WITHOUT CONTRAST EXAMINATION: CT OF THE CHEST WITHOUT CONTRAST 12/13/2022 2:33 pm TECHNIQUE: CT of the chest was performed without the administration of intravenous contrast. Multiplanar reformatted images are provided for review. Dose modulation, iterative reconstruction, and/or weight based adjustment of the mA/kV was utilized to reduce the radiation dose to as low as reasonably achievable. COMPARISON: 04/28/2022, 08/01/2021 HISTORY: ORDERING SYSTEM PROVIDED HISTORY: TECHNOLOGIST PROVIDED HISTORY: Reason for Exam: ; DIAGNOSES: -Lung nodules, multiple; ;COMMENT: Fax order with clinicals; FINDINGS: Mediastinum: No thoracic aortic aneurysm. Postoperative change from prior open heart surgery and aortic valve repair. Coronary artery atherosclerosis. Diffuse aortic atherosclerotic calcification. Great vessel involvement noted. No focal esophageal thickening. No pericardial effusion. No mediastinal lymphadenopathy based on size criteria. Lungs/pleura: Pleural plaque with calcification is noted, similar to the previous examination. Diffuse chronic emphysematous changes are seen throughout the lungs bilaterally. The platelike area of nodular consolidation along the right middle and upper lobe is again identified, though the more solid nodular appearing component has decreased in size when compared to the previous exam no new spiculated lung mass. Chronic micro nodularity noted within the lung bases dependently which could be related to postinflammatory scar a from prior bronchiolitis or aspiration. No acute appearing process. Minimal subpleural subpleural atelectasis or scarring of the right lower lobe. Upper Abdomen: No acute inflammatory process seen in the upper abdomen. Surgical clips are seen the gallbladder fossa. No focal mass is identified. 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 Disc osteophytes are noted. Median sternotomy wires are seen. IMPRESSION: 1. The platelike area of nodular thickening along the right middle/upper lobe is again identified, though with the nodular component having decreased in size when compared to the previous exam, where a previously seen loculated fluid collection was noted in April of 2020. This is likely a benign finding, though could consider repeat follow-up imaging in 1 year to document stability. 2. No spiculated lung mass or lymphadenopathy in the chest. 3. Chronic emphysematous changes and postinflammatory change as above. No acute pulmonary process. 4. Atherosclerosis including coronary artery involvement. D/ / MD Anupam Alcocer MD Interpreting Provider: Anupam Flower MD [facility] PT/INR POINT OF [facility] 12-11 POC INR 2.7 [facility] Comment on above: Result Comment: For patients on oral anticoagulants, the therapeutic INR reference range is 2.0 to 3.5 PT/INR (POC Device) 32.4 seconds High 9.4-12.1 [facility] PT/INR POINT OF [facility] 12-07 POC INR 1.8 [facility] Comment on above: Result Comment: For patients on oral anticoagulants, the therapeutic INR reference range is 2.0 to 3.5 PT/INR (POC Device) 21.3 seconds High 9.4-12.1 [facility] PT/INR POINT OF [facility] 12-04 POC INR 4.3 [facility] Comment on above: Result Comment: For patients on oral anticoagulants, the therapeutic INR reference range is 2.0 to 3.5 PT/INR (POC Device) 51.5 seconds High 9.4-12.1 [facility] PT/INR POINT OF [facility] 11-20 POC INR 4.2 [facility] Comment on above: Result Comment: For patients on oral anticoagulants, the therapeutic INR reference range is 2.0 to 3.5 PT/INR (POC Device) 50.1 seconds High 9.4-12.1 [facility] PT/INR POINT OF CARE 11-13 POC INR 1.9 [facility] Comment on above: Result Comment: For patients on oral anticoagulants, the therapeutic INR reference range is 2.0 to 3.5 PT/INR (POC Device) 23.3 seconds High 9.4-12.1 [facility] XR CHEST PA AND LATERALon XR CHEST PA AND LATERAL EXAMINATION: TWO XRAY VIEWS OF THE CHEST 11/06/2022 3:40 pm COMPARISON: 09/12/2022 HISTORY: ORDERING SYSTEM PROVIDED HISTORY: TECHNOLOGIST PROVIDED HISTORY: Reason for Exam: Pleuritic chest pain; FINDINGS: Status post median sternotomy. The lungs are without acute focal process. Scarring again seen left lung base. There is no effusion or pneumothorax. The cardiomediastinal silhouette is stable. The osseous structures are stable. IMPRESSION: No acute process. D/ / MD Komal Dailey MD Interpreting Provider: Komal Lafleur MD [facility] PT/INR POINT OF CAREon 11-06 POC INR 1.4 [facility] Comment on above: Result Comment: For patients on oral anticoagulants, the therapeutic INR reference range is 2.0 to 3.5 PT/INR (POC Device) 16.6 seconds High 9.4-12.1 [facility] XR KNEE RIGHT 2 VIEWSon 10-23 XR KNEE RIGHT 2 VIEWS EXAMINATION: 2 XRAY VIEWS OF THE RIGHT KNEE 10/31/2022 11:46 am COMPARISON: 05/04/2021 HISTORY: ORDERING SYSTEM PROVIDED HISTORY: TECHNOLOGIST PROVIDED HISTORY: Reason for Exam: Acute pain of right knee; FINDINGS: No acute fracture or dislocation is present. Joint alignment is maintained. There are moderate tricompartmental degenerative changes, medial compartment predominant. Nonspecific joint effusion is present. No evidence of erosion. Moderate chondrocalcinosis. Moderate atherosclerotic vascular calcifications. IMPRESSION: 1. No acute osseous abnormality. 2. Moderate tricompartmental osteoarthritis, medial compartment predominant, with nonspecific joint effusion. 3. Chondrocalcinosis. D/ / 11/05/2022 09:43:43 MD Anupam Smith MD Interpreting Provider: Anupam Malave MD [facility] CYSTOSCOPYon 11-02-2022 Radiology Study observation (narrative) [facility] CYSTOSCOPYon 11-01-2022 Neno Domínguez MD 11/02/2022 6:57 AM CYSTOSCOPY Date/Time: 11/01/2022 11:00 AM Performed by: Neno Domínguez MD Authorized by: Neno Domínguez MD The attending physician was present for the entire procedure. Pre-Procedure: Indications: bladder cancer Detailed information of all possible complications and side effects were discussed with the patient, these include but not only; UTI, sepsis, hematuria, incontinence, urethral injury and cardiovascular complications. Informed consent was obtained. Does this procedure require a Coral Protocol? Yes. Coral Protocol is required. The patient was given one dose of antibiotics. Urine was collected for testing. Procedure: Procedure performed: cystoscopy The patient was placed supine with all pressure points well padded. Patient was prepped and draped in the usual sterile fashion with Betadine. 10 mL of lidocaine 2% topical gel was inserted into urethra for local anesthesia. A penile clamp was not applied. The flexible cystoscope was lubricated and placed into the urethral tract under direct visualization. A 360 survey of the bladder was performed. The cystoscope was reflected and the bladder neck and the ureteral orifices were inspected. The findings are detailed below. The cystoscope was removed following any additional procedures documented below. Findings: The urinary meatus appeared normal. There was not a prominent median lobe. The lateral lobes were not obstructive in appearance. No tumors observed. No bladder fistula present. No foreign bodies observed. No stones found. No trabeculations were found. Both ureteral orifices were normal in size, shape and position with efflux of clear urine. The urethra was inspected. No foreign body(s) present in urethra. No urethral diverticulum observed. No urethral stricture found. Cystoscopy normal Post Procedure: Patient tolerated procedure with no immediate complications EBL: no blood loss Procedure Comments: F/u in 3 months for cystEpom [facility] Basic Metabolic Panel (COPC) on 10-31-2022 Anion gap [Moles/Vol] 7 mmol/L Normal 5-15 [facility] Comment on above: Order Comment: Items in this order include: HgbA1C, Basic Metabolic Panel Testing Performed By: [facility] [address] [place] [address] CLIA#:[id number] Dr. Hannah Richard, Corn Husk Baler Performed By: #### C 406, C45 #### [facility] [address] [place] [address] [address] [place] [address] B/C Ratio 10.0 Ratio Normal 10.0-28.6 [facility] Comment on above: Order Comment: Items in this order include: HgbA1C, Basic Metabolic Panel Testing Performed By: [facility] [address] [place] [address] CLIA#:[id number] [address] Hannah Richard, Corn Husk Baler Performed By: #### C 406, C45 #### [facility] [address] [place] [address] Calcium [Mass/Vol] 9.5 mg/dL Normal 8.7-10.[address] [facility] Comment on above: Order Comment: Items in this order include: HgbA1C, Basic Metabolic Panel Testing Performed By: [facility] [address] [place] [address] CLIA#:[id number] [address] Hannah Richard, Corn Husk Baler Performed By: #### C 406, C45 #### [facility] [address] [place] [address] Chloride [Moles/Vol] 104 mmol/L Normal 98-107 [facility] Comment on above: Order Comment: Items in this order include: HgbA1C, Basic Metabolic Panel Testing Performed By: [facility] [address] [place] [address] CLIA#:[id number] [address] Hannah Richard, Corn Husk Baler Performed By: #### C 406, C45 #### [facility] [address] [place] [address] CO2 [Moles/Vol] 30 mmol/L Normal 20-31 [facility] Comment on above: Order Comment: Items in this order include: HgbA1C, Basic Metabolic Panel Testing Performed By: [facility] [address] [place] [address] CLIA#:[id number] [address] Hannah Richard, Corn Husk Baler Performed By: #### C 406, C45 #### [facility] [address] [place] [address] Creatinine [Mass/Vol] 1.2 mg/dL Normal 0.7-1.3 [facility] Comment on above: Order Comment: Items in this order include: HgbA1C, Basic Metabolic Panel Testing Performed By: [facility] [address] [place] [address] CLIA#:[id number] [address] Hannah Richard, Corn Husk Baler Performed By: #### C 406, C45 #### [facility] [address] [place] [address] GFRCKD-Female 45 mL/min per 1.73 Low >60 [facility] Comment on above: Order Comment: Items in this order include: HgbA1C, Basic Metabolic Panel Testing Performed By: [facility] [address] [place] [address] CLIA#:[id number] [address] Hannah Richard, Corn Husk Baler Result Comment: The GFR estimate is not adjusted for race. Performed By: #### C 406, C45 #### [facility] [address] [place] [address] GFRCKD-Male 60 mL/min per 1.73 Low >60 [facility] Comment on above: Order Comment: Items in this order include: HgbA1C, Basic Metabolic Panel Testing Performed By: [facility] [address] [place] [address] CLIA#:[id number] Dr. Hannah Richard, Corn Husk Baler Result Comment: The GFR estimate is not adjusted for race. Performed By: #### C 406, C45 #### [facility] [address] [place] [address] Glucose [Mass/Vol] 182 mg/dL High 74-106 [facility] Comment on above: Order Comment: Items in this order include: HgbA1C, Basic Metabolic Panel Testing Performed By: [facility] [address] [place] [address] CLIA#:[id number] [address] Hannah Richard, Corn Husk Baler Performed By: #### C 406, C45 #### [facility] [address] [place] [address] Potassium [Moles/Vol] 4.3 mmol/L Normal 3.5-5.1 [facility] Comment on above: Order Comment: Items in this order include: HgbA1C, Basic Metabolic Panel Testing Performed By: [facility] [address] [place] [address] CLIA#:[id number] [address] Hannah Richard, Corn Husk Baler Performed By: #### C 406, C45 #### [facility] [address] [place] [address] Sodium [Moles/Vol] 141 mmol/L Normal 136-145 [facility] Comment on above: Order Comment: Items in this order include: HgbA1C, Basic Metabolic Panel Testing Performed By: [facility] [address] [place] [address] CLIA#:[id number] [address] Hannah Richard, Corn Husk Baler Performed By: #### C 406, C45 #### [facility] [address] [place] [address] Urea nitrogen [Mass/Vol] 12 mg/dL Normal 9-23 [facility] Comment on above: Order Comment: Items in this order include: HgbA1C, Basic Metabolic Panel Testing Performed By: [facility] [address] [place] [address] CLIA#:[id number] [address] Hannah Richard, Corn Husk Baler Performed By: #### C 406, C45 #### [facility] [address] [place] [address] HgbA1C (COPC)on 10-31-2022 HbA1c (Bld) [Mass fraction] 6.6 % High <5.7 [facility] Comment on above: Order Comment: Items in this order include: HgbA1C, Basic Metabolic Panel Testing Performed By: [facility] [address] [place] [address] CLIA#:[id number] Dr. Hannah Richard, Corn Husk Baler Result Comment: Refe rence Interval: Normal: below 5.7%. Prediabetes: 5.7% to 6.4%. Diabetes: 6.5% or above. Performed By: #### C 406, C45 #### [facility] [address] [place] [address] PT/INR POINT OF CAREon 10-30 POC INR 1.3 [facility] Comment on above: Result Comment: For patients on oral anticoagulants, the therapeutic INR reference range is 2.0 to 3.5 PT/INR (POC Device) 15.8 seconds High 9.4-12.1 [facility] PT/INR POINT OF CARE 10-23 POC INR 3.6 [facility] Comment on above: Result Comment: For patients on oral anticoagulants, the therapeutic INR reference range is 2.0 to 3.5 PT/INR (POC Device) 42.9 seconds High 9.4-12.1 [facility] PT/INR POINT OF CARE 10-16 POC INR 1.8 [facility] Comment on above: Result Comment: For patients on oral anticoagulants, the therapeutic INR reference range is 2.0 to 3.5 PT/INR (POC Device) 22.0 seconds High 9.4-12.1 [facility] XR HIP RIGHT 2 VIEWSon 10-07 XR HIP RIGHT 2 VIEWS EXAMINATION: TWO XRAY VIEWS OF THE RIGHT HIP 10/03/2022 10:56 am COMPARISON: 09/12/2022 HISTORY: ORDERING SYSTEM PROVIDED HISTORY: TECHNOLOGIST PROVIDED HISTORY: Reason for Exam: hip pain; FINDINGS: The nondisplaced fracture seen in the right superior pubic ramus is not well visualized. No new fracture. No dislocation. Vascular calcifications. IMPRESSION: Right superior pubic ramus fracture seen previously is not well visualized Otherwise, stable appearing pelvis and right hip D/ / MD Komal Dailey MD Interpreting Provider: Komal Lafleur MD [facility] ECGon 09-14-[address] [place] [address] Test Date: 2022-09-12 Pat Name: MICK COTTRELL Department: EXAM16 Room: [facility] Gender: M Digital Imaging Specialist: : 1940 Requested By: KOMAL Arreola Order Number: [id number] Reading MD: Juanito Nicolas Measurements Intervals Floris Rate: 84 P: 90 UT: 187 QRS: 129 QRSD: 127 T: -32 QT: 367 QTc: 434 Interpretive Statements Sinus rhythm RBBB and LPFB Nonspecific T abnormalities, lateral leads Electronically Signed On 09-13-2022 22:51:23 EDT by Juanito Nicolas [facility] GLUCOSE POCon 09-14-2022 Glucose [Mass/Vol] 209 mg/dL High 70-99 [facility] Glucose [Mass/Vol] 209 mg/dL High 70 - 99 mg/dL [facility] Interpretation and review of laboratory results Abnormal [facility] Glucose [Mass/Vol] 200 mg/dL High 70-99 [facility] Glucose [Mass/Vol] 200 mg/dL High 70 - 99 mg/dL [facility] Interpretation and review of laboratory results Abnormal [facility] Glucose [Mass/Vol] 144 mg/dL High 70-99 [facility] Glucose [Mass/Vol] 144 mg/dL High 70 - 99 mg/dL [facility] Interpretation and review of laboratory results Abnormal [facility] PROTIME-INRon 09-14-2022 INR Coag (PPP) [Relative time] 1.8 {INR} [facility] Comment on above: Result Comment: For Patients on oral anticoagulants, the therapeutic INR reference range is 2.0 to 3.5 PT Coag (PPP) [Time] 19.6 s High 9.4-12.1 [facility] INR Coag (Bld) [Relative time] 1.8 {INR} [facility] Comment on above: For Patients on oral anticoagulants, the therapeutic INR reference range is 2.0 to 3.5 Interpretation and review of laboratory results Abnormal [facility] PT Coag (PPP) [Time] 19.6 s High [facility] BASIC METABOLIC PANELon 08-24 Calcium [Mass/Vol] 9.1 mg/dL Normal 8.6-10.3 [facility] Chloride [Moles/Vol] 106 mmol/L Normal 98-107 [facility] CO2 [Moles/Vol] 24 mmol/L Normal 23-29 [facility] Creatinine [Mass/Vol] 1.03 mg/dL Normal 0.70-1.30 [facility] GFR/1.73 sq M.predicted among non-blacks MDRD (S/P/Bld) [Vol rate/Area] 73 mL/min/{1.73_m2} Normal >=60 [facility] Comment on above: Result Comment: Repo rted eGFR is based on the CKD-EPI 2020 equation using creatinine, age, and sex. Glucose [Mass/Vol] 133 mg/dL High 70-105 [facility] Osmolality [Osmolality] 289 mosm/kg Normal 280-300 [facility] Potassium [Moles/Vol] 3.6 mmol/L Normal 3.5-5.1 [facility] Sodium [Moles/Vol] 138 mmol/L Normal 136-145 [facility] Urea nitrogen [Mass/Vol] 16 mg/dL Normal 8-23 [facility] Urea nitrogen/Creatinine [Mass ratio] 16 mg/mg Normal 6-26 [facility] Calcium [Mass/Vol] 9.1 mg/dL 8.6 - 10. 3 mg/dL [facility] Chloride [Moles/Vol] 106 mmol/L 98 - 10 7 mmol/L [facility] CO2 [Moles/Vol] 24 mmol/L 23 - 29 mmol/L [facility] Creatinine [Mass/Vol] 1.03 mg/dL 0.70 - 1.30 mg/dL [facility] GFR/1.73 sq M.predicted CKD-EPI (S/P/Bld) [Vol rate/Area] 73 - PINF [facility] Comment on above: Reported eGFR is bas ed on the CKD-EPI 2020 equation using creatinine, age, and sex. Glucose [Mass/Vol] 133 mg/dL High 70 - 105 mg/dL [facility] Interpretation and review of laboratory results Abnormal [facility] Osmolality Calc [Osmolality] 289 280 - 300 [facility] Potassium [Moles/Vol] 3.6 mmol/L 3.5 - 5.1 mmol/L [facility] Sodium [Moles/Vol] 138 mmol/L 136 - 145 mmol/L [facility] Urea nitrogen [Mass/Vol] 16 mg/dL 8 - 23 mg/dL [facility] Urea nitrogen/Creatinine [Mass ratio] 16 mg/mg 6 - 26 [facility] CBC,PLATELETSon 09-13-2022 Hematocrit (Bld) [Volume fraction] 42.7 % Normal 37.5-50.1 [facility] Hemoglobin (Bld) [Mass/Vol] 14.3 g/dL Normal 12.9-16.9 [facility] Immature Plt Fraction % 6.5 % High 1.1-6.1 [facility] MCV (RBC) [Entitic vol] 94.7 fL Normal 83.0-100.0 [facility] Mean Cell Hgb 31.7 pg Normal 28.0-33.0 [facility] Mean Cell Hgb Conc 33.5 g/dL Normal 31.6-35.5 [facility] Platelet mean volume (Bld) [Entitic vol] 11.6 fL Normal 9.4-12.4 [facility] Platelets (Bld) [#/Vol] 116 10*3/uL Low 140-400 [facility] RBC (Bld) [#/Vol] 4.51 10*6/uL Normal 4.19-5.50 [facility] [place] RBC Distribution 14.8 % High 11.5-14.5 [facility] WBC (Bld) [#/Vol] 8.3 10*3/uL Normal 4.3-11.1 [facility] CBC,PLATELETSOrdered By: Breezy Moore on 09-13-2022 Erythrocyte distribution width (RBC) [Ratio] 14.8 % High 11.5 - 14.5 % [facility] Hematocrit (Bld) [Volume fraction] 42.7 % 37.5 - 50.1 % [facility] Hemoglobin (Bld) [Mass/Vol] 14.3 g/dL 12.9 - 16.9 g/dL [facility] Immature Plt Fraction % 6.5 % High 1.1 - 6.1 % [facility] Interpretation and review of laboratory results Abnormal [facility] MCH (RBC) [Entitic mass] 31.7 pg 28.0 - 33.0 pg [facility] MCHC (RBC) [Mass/Vol] 33.5 g/dL 31.6 - 35.5 g/dL [facility] MCV (RBC) [Entitic vol] 94.7 fL 83.0 - 100.0 fL [facility] Platelet mean volume (Bld) [Entitic vol] 11.6 fL 9.4 - 12.4 fL [facility] Platelets (Bld) [#/Vol] 116 10*3/uL Low 140 - 400 K/uL [facility] RBC (Bld) [#/Vol] 4.51 10*6/uL [facility] WBC (Bld) [#/Vol] 8.3 10*3/uL 4.3 - 11.1 K/uL [facility] ECGon 09-13-2022 [place] [address] Test Date: 2022-09-12 Pat Name: MICK COTTRELL Department: [id number] Room: [facility] Gender: M Digital Imaging Specialist: : 1940 Requested By: KOMAL Arreola Order Number: [id number] Reading MD: Juanito Nicolas Measurements Intervals Floris Rate: 84 P: 90 UT: 187 QRS: 129 QRSD: 127 T: -32 QT: 367 QTc: 434 Interpretive Statements Sinus rhythm RBBB and LPFB Nonspecific T abnormalities, lateral leads Electronically Signed On 09-13-2022 22:51:23 EDT by Juanito Segura MD - 09/13/2022 [place] [address] Test Date: 2022-09-12 Pat Name: MICK COTTRELL Department: [id number] Room: 4W18 Gender: M Digital Imaging Specialist: : 1940 Requested By: KOMAL Arreola Order Number: [id number] Reading MD: Juanito Nicolas Measurements Intervals Floris Rate: 84 P: 90 UT: 187 QRS: 129 QRSD: 127 T: -32 QT: 367 QTc: 434 Interpretive Statements Sinus rhythm RBBB and LPFB Nonspecific T abnormalities, lateral leads Electronically Signed On 09-13-2022 22:51:23 EDT by Juanito Nicolas [facility] ECGOrdered By: Juanito anna n 09-13-2022 [facility] Work Phone: GLUCOSE POCon 09-13-2022 Glucose [Mass/Vol] 210 mg/dL High 70-99 [facility] [place] Glucose [Mass/Vol] 210 mg/dL High 70 - 99 mg/dL [facility] Interpretation and review of laboratory results Abnormal [facility] Glucose [Mass/Vol] 166 mg/dL High 70-99 [facility] Glucose [Mass/Vol] 166 mg/dL High 70 - 99 mg/dL [facility] Interpretation and review of laboratory results Abnormal [facility] Glucose [Mass/Vol] 159 mg/dL High 70-99 [facility] Glucose [Mass/Vol] 159 mg/dL High 70 - 99 mg/dL [facility] Interpretation and review of laboratory results Abnormal [facility] Glucose [Mass/Vol] 146 mg/dL High 70-99 [facility] Glucose [Mass/Vol] 146 mg/dL High 70 - 99 mg/dL [facility] Interpretation and review of laboratory results Abnormal [facility] MAGNESIUMon 09-13-2022 Magnesium [Mass/Vol] 2.0 mg/dL Normal 1.6-2.6 [facility] [place] Interpretation and review of laboratory results Normal [facility] Magnesium [Mass/Vol] 2.0 mg/dL 1.6 - 2 .6 mg/dL [facility] No Panel Informationon 09-13 [facility] PROTIME-INRon 09-13-2022 INR Coag (PPP) [Relative time] 2.0 {INR} Normal [facility] Comment on above: Result Comment: For Patients on oral anticoagulants, the therapeutic INR reference range is 2.0 to 3.5 PT Coag (PPP) [Time] 22.4 s High 9.4-12.1 [facility] PROTIME-INROrdered By: Gian Moya on 09-13-2022 INR Coag (Bld) [Relative time] 2.0 {INR} [facility] Comment on above: For Patients on oral anticoagulants, the therapeutic INR reference range is 2.0 to 3.5 Interpretation and review of laboratory results Abnormal [facility] PT Coag (PPP) [Time] 22.4 s High [facility] BASIC METABOLIC PANELon 08-24 Calcium [Mass/Vol] 9.3 mg/dL Normal 8.6-10.3 [facility] Chloride [Moles/Vol] 104 mmol/L Normal 98-107 [facility] CO2 [Moles/Vol] 27 mmol/L Normal 23-29 [facility] Creatinine [Mass/Vol] 1.17 mg/dL Normal 0.70-1.30 [facility] GFR/1.73 sq M.predicted among non-blacks MDRD (S/P/Bld) [Vol rate/Area] 63 mL/min/{1.73_m2} Normal >=60 [facility] Comment on above: Result Comment: Repo rted eGFR is based on the CKD-EPI 2020 equation using creatinine, age, and sex. Glucose [Mass/Vol] 139 mg/dL High 70-105 [facility] Osmolality [Osmolality] 292 mosm/kg Normal 280-300 [facility] Potassium [Moles/Vol] 4.0 mmol/L Normal 3.5-5.1 [facility] Sodium [Moles/Vol] 140 mmol/L Normal 136-145 [facility] Urea nitrogen [Mass/Vol] 13 mg/dL Normal 8-23 [facility] Urea nitrogen/Creatinine [Mass ratio] 11 mg/mg Normal 09-17 [facility] [place] Calcium [Mass/Vol] 9.3 mg/dL 8.6 - 10. 3 mg/dL [facility] Chloride [Moles/Vol] 104 mmol/L 98 - 10 7 mmol/L [facility] CO2 [Moles/Vol] 27 mmol/L 23 - 29 mmol/L [facility] Creatinine [Mass/Vol] 1.17 mg/dL 0.70 - 1.30 mg/dL [facility] GFR/1.73 sq M.predicted CKD-EPI (S/P/Bld) [Vol rate/Area] 63 - PINF [facility] Comment on above: Reported eGFR is bas ed on the CKD-EPI 2020 equation using creatinine, age, and sex. Glucose [Mass/Vol] 139 mg/dL High 70 - 105 mg/dL [facility] Interpretation and review of laboratory results Abnormal [facility] Osmolality Calc [Osmolality] 292 280 - 300 [facility] Potassium [Moles/Vol] 4.0 mmol/L 3.5 - 5.1 mmol/L [facility] Sodium [Moles/Vol] 140 mmol/L 136 - 145 mmol/L [facility] Urea nitrogen [Mass/Vol] 13 mg/dL 8 - 23 mg/dL [facility] Urea nitrogen/Creatinine [Mass ratio] 11 mg/mg [facility] CBC AND ELECTRONIC DIFFon Basophils (Bld) [#/Vol] 0.0 10*3/uL Normal 0.0-0.2 [facility] Basophils/100 WBC (Bld) 0.2 % Normal [facility] [place] Eosinophils (Bld) [#/Vol] 0.1 10*3/uL Normal 0.0-0.6 [facility] [place] Eosinophils/100 WBC (Bld) 1.2 % Normal [facility] [place] Hematocrit (Bld) [Volume fraction] 44.5 % Normal 37.5-50.1 [facility] [place] Hemoglobin (Bld) [Mass/Vol] 14.5 g/dL Normal 12.9-16.9 [facility] Immature Grans % 0.2 % Normal [facility] Immature Plt Fraction % 7.6 % High 1.1-6.1 [facility] [place] Lymphocytes (Bld) [#/Vol] 0.6 10*3/uL Normal 0.6-4.6 [facility] Lymphocytes/100 WBC (Bld) 6.3 % Normal [facility] MCV (RBC) [Entitic vol] 97.4 fL Normal 83.0-100.0 [facility] Mean Cell Hgb 31.7 pg Normal 28.0-33.0 [facility] Mean Cell Hgb Conc 32.6 g/dL Normal 31.6-35.5 [facility] [place] Monocytes (Bld) [#/Vol] 0.8 10*3/uL Normal 0.0-1.3 [facility] Monocytes/100 WBC (Bld) 7.9 % Normal [facility] [place] Nucleated RBC 0 /100 WBC Normal [facility] [place] Platelet mean volume (Bld) [Entitic vol] 11.2 fL Normal 9.4-12.4 [facility] Platelets (Bld) [#/Vol] 123 10*3/uL Low 140-400 [facility] RBC (Bld) [#/Vol] 4.57 10*6/uL Normal 4.19-5.50 [facility] in [place] RBC Distribution 14.7 % High 11.5-14.5 [facility] Segs + Bands Auto 84.2 % Normal [facility] Segs + Bands,Absolute Auto 8.4 K/uL Normal 1.6-8.9 [facility] WBC (Bld) [#/Vol] 9.9 10*3/uL Normal 4.3-11.1 [facility] [place] Basophils (Bld) [#/Vol] 0.0 10*3/uL 0.0 - 0.2 K/uL [facility] Basophils/100 WBC (Bld) 0.2 % [facility] Eosinophils (Bld) [#/Vol] 0.1 10*3/uL 0.0 - 0.6 K/uL [facility] Eosinophils/100 WBC (Bld) 1.2 % [facility] Erythrocyte distribution width (RBC) [Ratio] 14.7 % High 11.5 - 14.5 % [facility] Hematocrit (Bld) [Volume fraction] 44.5 % 37.5 - 50.1 % [facility] Hemoglobin (Bld) [Mass/Vol] 14.5 g/dL 12.9 - 16.9 g/dL [facility] Immature granulocytes/100 WBC (Bld) 0.2 % [facility] Immature Plt Fraction % 7.6 % High 1.1 - 6.1 % [facility] Interpretation and review of laboratory results Abnormal [facility] Lymphocytes (Bld) [#/Vol] 0.6 10*3/uL 0.6 - 4.6 K/uL [facility] Lymphocytes/100 WBC (Bld) 6.3 % [facility] MCH (RBC) [Entitic mass] 31.7 pg 28.0 - 33.0 pg [facility] MCHC (RBC) [Mass/Vol] 32.6 g/dL 31.6 - 35.5 g/dL [facility] MCV (RBC) [Entitic vol] 97.4 fL 83.0 - 100.0 fL [facility] Monocytes (Bld) [#/Vol] 0.8 10*3/uL 0.0 - 1.3 K/uL [facility] Monocytes/100 WBC (Bld) 7.9 % [facility] Neutrophils (Bld) [#/Vol] 8.4 10*3/uL 1.6 - 8.9 K/uL [facility] Nucleated RBC/100 WBC (Bld) [Ratio] 0 % /100 WBC [facility] Platelet mean volume (Bld) [Entitic vol] 11.2 fL 9.4 - 12.4 fL [facility] Platelets (Bld) [#/Vol] 123 10*3/uL Low 140 - 400 K/uL [facility] RBC (Bld) [#/Vol] 4.57 10*6/uL [facility] Segmented neutrophils/100 WBC (Bld) 84.2 % [facility] WBC (Bld) [#/Vol] 9.9 10*3/uL 4.3 - 11.1 K/uL [facility] CT HEAD WITHOUT CONTRASTon 0 09-12-2022 CT HEAD WITHOUT CONTRAST EXAMINATION: CT OF THE HEAD WITHOUT CONTRAST 09/12/2022 9:51 am TECHNIQUE: CT of the head was performed without the administration of intravenous contrast. Dose modulation, iterative reconstruction, and/or weight based adjustment of the mA/kV was utilized to reduce the radiation dose to as low as reasonably achievable. COMPARISON: None. HISTORY: ORDERING SYSTEM PROVIDED HISTORY: TECHNOLOGIST PROVIDED HISTORY: Reason for Exam: ; DIAGNOSES: -Fall, head trauma, anticoagulation; ; FINDINGS: BRAIN/VENTRICLES: There is no acute intracranial hemorrhage, mass effect or midline shift. No abnormal extra-axial fluid collection. The edwards-white differentiation is maintained without evidence of an acute infarct. There is no evidence of hydrocephalus. Low-attenuation areas in the white matter of the brain related to chronic microvascular ischemic disease. There is [id number]-[id number] global parenchymal volume loss. ORBITS: The visualized portion of the orbits demonstrate no acute abnormality. SINUSES: The visualized paranasal sinuses and mastoid air cells demonstrate no acute abnormality. SOFT TISSUES/SKULL: No acute abnormality of the visualized skull or soft tissues. IMPRESSION: Age-related changes the brain findings likely related to microvascular ischemic disease. No acute intracranial process identified. D/ / Irving Quintero Interpreting Provider: Irving Quintero [facility] CT Head WO contraston 2022 IMPRESSION: Age-related changes the brain findings likely related to microvascular ischemic disease. No acute intracranial process identified. D/ / Irving Quintero Interpreting Provider: Irving Quintero OLOGY EXAMINATION: CT OF THE HEAD WITHOUT CONTRAST 09/12/2022 9:51 am TECHNIQUE: CT of the head was performed without the administration of intravenous contrast. Dose modulation, iterative reconstruction, and/or weight based adjustment of the mA/kV was utilized to reduce the radiation dose to as low as reasonably achievable. COMPARISON: None. HISTORY: ORDERING SYSTEM PROVIDED HISTORY: TECHNOLOGIST PROVIDED HISTORY: Reason for Exam: ; DIAGNOSES: -Fall, head trauma, anticoagulation; ; FINDINGS: BRAIN/VENTRICLES: There is no acute intracranial hemorrhage, mass effect or midline shift. No abnormal extra-axial fluid collection. The edwards-white differentiation is maintained without evidence of an acute infarct. There is no evidence of hydrocephalus. Low-attenuation areas in the white matter of the brain related to chronic microvascular ischemic disease. There is [id number] global parenchymal volume loss. ORBITS: The visualized portion of the orbits demonstrate no acute abnormality. SINUSES: The visualized paranasal sinuses and mastoid air cells demonstrate no acute abnormality. SOFT TISSUES/SKULL: No acute abnormality of the visualized skull or soft tissues. RADIOLOGY Amaury Rodriguez MD - 09/12/2022 EXAMINATION: CT OF THE HEAD WITHOUT CONTRAST 09/12/2022 9:51 am TECHNIQUE: CT of the head was performed without the administration of intravenous contrast. Dose modulation, iterative reconstruction, and/or weight based adjustment of the mA/kV was utilized to reduce the radiation dose to as low as reasonably achievable. COMPARISON: None. HISTORY: ORDERING SYSTEM PROVIDED HISTORY: TECHNOLOGIST PROVIDED HISTORY: Reason for Exam: ; DIAGNOSES: -Fall, head trauma, anticoagulation; ; FINDINGS: BRAIN/VENTRICLES: There is no acute intracranial hemorrhage, mass effect or midline shift. No abnormal extra-axial fluid collection. The edwards-white differentiation is maintained without evidence of an acute infarct. There is no evidence of hydrocephalus. Low-attenuation areas in the white matter of the brain related to chronic microvascular ischemic disease. There is mpaz-iw-iilhzyiy global parenchymal volume loss. ORBITS: The visualized portion of the orbits demonstrate no acute abnormality. SINUSES: The visualized paranasal sinuses and mastoid air cells demonstrate no acute abnormality. SOFT TISSUES/SKULL: No acute abnormality of the visualized skull or soft tissues. IMPRESSION IMPRESSION: Age-related changes the brain findings likely related to microvascular ischemic disease. No acute intracranial process identified. D/ / Irving Quintero Interpreting Provider: Irving Quintero [facility] Radiology Study observation (narrative) [place] [employer] CT Head WO contrastOrdered B y: Amaury Rodriguez on 09-12-2022 [id number] Work Phone: ECG (SCANNED)on 09-12-2022 [facility] GLUCOSE POCon 09-12-2022 Glucose [Mass/Vol] 187 mg/dL High 70-99 [facility] [place] Glucose [Mass/Vol] 187 mg/dL High 70 - 99 mg/dL [facility] Interpretation and review of laboratory results Abnormal [facility] Glucose [Mass/Vol] 117 mg/dL High 70-99 [facility] [place] Glucose [Mass/Vol] 117 mg/dL High 70 - 99 mg/dL [facility] Interpretation and review of laboratory results Abnormal [facility] MR Hip - right WO contraston 09-12-2022 IMPRESSION: Fracture of the right superior pubic ramus acetabular junction with extension into the acetabulum. Diffuse tearing of the right acetabular labrum. Osteoarthrosis of the right hip. Nonspecific soft tissue edema adjacent to the right ischium which may be posttraumatic in nature. D/ / Irving Quintero Interpreting Provider: Irving Quintero OLOGY EXAMINATION: MRI OF THE RIGHT HIP WITHOUT CONTRAST, 09/12/2022 12:27 pm TECHNIQUE: Multiplanar multisequence MRI of the right hip was performed without the administration of intravenous contrast. COMPARISON: Radiograph from today HISTORY: ORDERING SYSTEM PROVIDED HISTORY: TECHNOLOGIST PROVIDED HISTORY: Reason for Exam: ; DIAGNOSES: -Hip trauma, fracture suspected, xray done; ; FINDINGS: BONE MARROW: No evidence of avascular necrosis, fracture, or bone contusion of the left hip or right femur. Nondisplaced fracture involving the right superior pubic ramus acetabular junction (series 5 image 17). This extends into the right acetabulum. HIP JOINT: Small right-sided hip joint effusion. Moderate size areas of grade 3 cartilage irregularity involving the posterior femoral head and acetabulum. Degenerative cysts are seen within the posterosuperior and posterior acetabulum. Osteophyte formation involving the right femoral head and acetabulum. Small left-sided hip joint effusion. Degenerative cyst formation involving the superolateral left acetabulum. Osteophyte formation involving the left acetabulum and femoral head. LABRUM: There is tearing of the anterior superior and posterosuperior acetabular labrum. Acetabular labral tear extends from approximately the 3 o'clock position to the 10 o'clock position (series 6 images 6 through 19). BURSAE: No significant iliopsoas or trochanteric bursitis. SCIATIC NERVE: Normal MRI appearance of the sciatic nerve. MUSCLES / TENDONS: No evidence of gluteal tendon tear. Intact hamstrings tendon origin. No significant muscle edema or atrophy. INTRAPELVIC CONTENTS / SOFT TISSUES: Soft tissue edema posteroinferior to the right ischium (series 5, images 30 through 36). RADIOLOGY Amaury Rodriguez MD - 09/12/2022 EXAMINATION: MRI OF THE RIGHT HIP WITHOUT CONTRAST, 09/12/2022 12:27 pm TECHNIQUE: Multiplanar multisequence MRI of the right hip was performed without the administration of intravenous contrast. COMPARISON: Radiograph from today HISTORY: ORDERING SYSTEM PROVIDED HISTORY: TECHNOLOGIST PROVIDED HISTORY: Reason for Exam: ; DIAGNOSES: -Hip trauma, fracture suspected, xray done; ; FINDINGS: BONE MARROW: No evidence of avascular necrosis, fracture, or bone contusion of the left hip or right femur. Nondisplaced fracture involving the right superior pubic ramus acetabular junction (series 5 image 17). This extends into the right acetabulum. HIP JOINT: Small right-sided hip joint effusion. Moderate size areas of grade 3 cartilage irregularity involving the posterior femoral head and acetabulum. Degenerative cysts are seen within the posterosuperior and posterior acetabulum. Osteophyte formation involving the right femoral head and acetabulum. Small left-sided hip joint effusion. Degenerative cyst formation involving the superolateral left acetabulum. Osteophyte formation involving the left acetabulum and femoral head. LABRUM: There is tearing of the anterior superior and posterosuperior acetabular labrum. Acetabular labral tear extends from approximately the 3 o'clock position to the 10 o'clock position (series 6 images 6 through 19). BURSAE: No significant iliopsoas or trochanteric bursitis. SCIATIC NERVE: Normal MRI appearance of the sciatic nerve. MUSCLES / TENDONS: No evidence of gluteal tendon tear. Intact hamstrings tendon origin. No significant muscle edema or atrophy. INTRAPELVIC CONTENTS / SOFT TISSUES: Soft tissue edema posteroinferior to the right ischium (series 5, images 30 through 36). IMPRESSION IMPRESSION: Fracture of the right superior pubic ramus acetabular junction with extension into the acetabulum. Diffuse tearing of the right acetabular labrum. Osteoarthrosis of the right hip. Nonspecific soft tissue edema adjacent to the right ischium which may be posttraumatic in nature. D/ / Irving Quintero Interpreting Provider: Irving Quintero [facility] Radiology Study observation (narrative) [facility] MRI HIP RIGHT WITHOUT CONTRA STon 09-12-2022 MRI HIP RIGHT WITHOUT CONTRAST EXAMINATION: MRI OF THE RIGHT HIP WITHOUT CONTRAST, 09/12/2022 12:27 pm TECHNIQUE: Multiplanar multisequence MRI of the right hip was performed without the administration of intravenous contrast. COMPARISON: Radiograph from today HISTORY: ORDERING SYSTEM PROVIDED HISTORY: TECHNOLOGIST PROVIDED HISTORY: Reason for Exam: ; DIAGNOSES: -Hip trauma, fracture suspected, xray done; ; FINDINGS: BONE MARROW: No evidence of avascular necrosis, fracture, or bone contusion of the left hip or right femur. Nondisplaced fracture involving the right superior pubic ramus acetabular junction (series 5 image 17). This extends into the right acetabulum. HIP JOINT: Small right-sided hip joint effusion. Moderate size areas of grade 3 cartilage irregularity involving the posterior femoral head and acetabulum. Degenerative cysts are seen within the posterosuperior and posterior acetabulum. Osteophyte formation involving the right femoral head and acetabulum. Small left-sided hip joint effusion. Degenerative cyst formation involving the superolateral left acetabulum. Osteophyte formation involving the left acetabulum and femoral head. LABRUM: There is tearing of the anterior superior and posterosuperior acetabular labrum. Acetabular labral tear extends from approximately the 3 o'clock position to the 10 o'clock position (series 6 images 6 through 19). BURSAE: No significant iliopsoas or trochanteric bursitis. SCIATIC NERVE: Normal MRI appearance of the sciatic nerve. MUSCLES / TENDONS: No evidence of gluteal tendon tear. Intact hamstrings tendon origin. No significant muscle edema or atrophy. INTRAPELVIC CONTENTS / SOFT TISSUES: Soft tissue edema posteroinferior to the right ischium (series 5, images 30 through 36). IMPRESSION: Fracture of the right superior pubic ramus acetabular junction with extension into the acetabulum. Diffuse tearing of the right acetabular labrum. Osteoarthrosis of the right hip. Nonspecific soft tissue edema adjacent to the right ischium which may be posttraumatic in nature. D/ / Irving Quintero Interpreting Provider: Irving Quintero [facility] No Panel Informationon 09-12 [facility] PROTIME-INRon 09-12-2022 INR Coag (PPP) [Relative time] 2.2 {INR} [facility] Comment on above: Result Comment: For Patients on oral anticoagulants, the therapeutic INR reference range is 2.0 to 3.5 PT Coag (PPP) [Time] 24.3 s High 9.4-12.1 [facility] INR Coag (Bld) [Relative time] 2.2 {INR} [facility] Comment on above: For Patients on oral anticoagulants, the therapeutic INR reference range is 2.0 to 3.5 Interpretation and review of laboratory results Abnormal [facility] PT Coag (PPP) [Time] 24.3 s High [facility] Portable XR Chest Viewson IMPRESSION: Blunting of the right costophrenic angle due to pleural fluid or pleural thickening. No confluent infiltrate. D/ / Irving Quintero Interpreting Provider: Irving Quintero OLOGY EXAMINATION: ONE XRAY VIEW OF THE CHEST 09/12/2022 10:08 am COMPARISON: None. HISTORY: ORDERING SYSTEM PROVIDED HISTORY: TECHNOLOGIST PROVIDED HISTORY: Reason for Exam: fall; FINDINGS: Prior cardiothoracic surgery. Blunting of the right costophrenic angle. Areas of scarring within the lungs. No confluent infiltrate, effusion, or pneumothorax identified. Cardiac and mediastinal silhouettes are within normal limits. Atherosclerotic calcifications involving the thoracic aorta. RADIOLOGY Amaury Rodriguez MD - 09/12/2022 EXAMINATION: ONE XRAY VIEW OF THE CHEST 09/12/2022 10:08 am COMPARISON: None. HISTORY: ORDERING SYSTEM PROVIDED HISTORY: TECHNOLOGIST PROVIDED HISTORY: Reason for Exam: fall; FINDINGS: Prior cardiothoracic surgery. Blunting of the right costophrenic angle. Areas of scarring within the lungs. No confluent infiltrate, effusion, or pneumothorax identified. Cardiac and mediastinal silhouettes are within normal limits. Atherosclerotic calcifications involving the thoracic aorta. IMPRESSION IMPRESSION: Blunting of the right costophrenic angle due to pleural fluid or pleural thickening. No confluent infiltrate. D/ / Irving Quintero Interpreting Provider: Irving Quintero [facility] Radiology Study observation (narrative) [facility] TROPONINon 09-12-2022 Troponin I.cardiac [Mass/Vol] 0.03 ng/mL Normal <0.04 [facility] Interpretation and review of laboratory results Normal [facility] Troponin I.cardiac DL <= 0.01 ng/mL [Mass/Vol] 0.03 ng/mL NINF - 0.04 ng/mL [facility] URINE SCREENon 09-12-2022 Appearance (U) Clear Normal Clear [facility] [place] Bilirubin Ql (U) Negative Normal Negative [facility] [place] Blood Urine Trace Abnormal Negative [facility] Color (U) Light Yellow Normal Yellow [facility] Glucose Ql (U) Normal Normal Normal [facility] [place] Ketones Ql (U) Negative Normal Negative [facility] Leukocyte esterase Test strip Ql (U) Negative Normal Negative [facility] Nitrites Urine Negative Normal Negative [facility] pH Urine 8.0 pH Units Normal 5.0-8.0 [facility] Protein Urine Trace Normal Negative-Tr dorie [facility] [place] Specific [place] Urine 1.017 Normal 1.010-1.025 [facility] [place] Urobilinogen Urine Normal Normal Normal [facility] [place] Appearance (U) Clear Clear [facility] Bilirubin Ql (U) Negative Negative [place] [facility] Color (U) Light Yellow Yellow [facility] Glucose Test strip (U) [Mass/Vol] Normal Normal [facility] Interpretation and review of laboratory results Abnormal [facility] Ketones (U) [Mass/Vol] Negative Negative AD [facility] Leukocyte esterase Test strip Ql (U) Negative Negative [facility] Nitrite Ql (U) Negative Negative [facility] pH (U) 8.0 [pH] [facility] Protein (U) [Mass/Vol] Trace Negat pollo-Tr dorie mg/dL [facility] RBC (U) [#/Vol] Trace Abnormal Negative [facility] Specific gravity (U) [Rel density] 1.017 1.010 - 1.025 [facility] Urobilinogen (U) [Mass/Vol] Normal Normal [facility] XR CHEST PORTABLEon 09-13-19 XR CHEST PORTABLE EXAMINATION: ONE XRAY VIEW OF THE CHEST 09/12/2022 10:08 am COMPARISON: None. HISTORY: ORDERING SYSTEM PROVIDED HISTORY: TECHNOLOGIST PROVIDED HISTORY: Reason for Exam: fall; FINDINGS: Prior cardiothoracic surgery. Blunting of the right costophrenic angle. Areas of scarring within the lungs. No confluent infiltrate, effusion, or pneumothorax identified. Cardiac and mediastinal silhouettes are within normal limits. Atherosclerotic calcifications involving the thoracic aorta. IMPRESSION: Blunting of the right costophrenic angle due to pleural fluid or pleural thickening. No confluent infiltrate. D/ / Irving Quintero Interpreting Provider: Irving Quintero [facility] [place] XR HIP RIGHT 2 VIEWSon 09-12 XR HIP RIGHT 2 VIEWS EXAMINATION: TWO XRAY VIEWS OF THE RIGHT HIP 09/12/2022 11:18 am COMPARISON: None. HISTORY: ORDERING SYSTEM PROVIDED HISTORY: TECHNOLOGIST PROVIDED HISTORY: Reason for Exam: pain, fall; FINDINGS: Superior right hip joint space is maintained. Osteophyte formation involving the right acetabulum. No fracture or dislocation of the right hip. Chondrocalcinosis involving the right hip. Superior left hip joint space is maintained. Osteophyte formation involving the left acetabulum. No fracture or dislocation left hip. Chondrocalcinosis is seen involving the left hip. Possible fracture of the right superior pubic ramus pubic bone junction. Possible fracture of the left inferior pubic ramus. Pubic symphysis and SI joints are intact. IMPRESSION: Possible fracture of the right superior pubic ramus pubic bone junction and left inferior pubic ramus. D/ / Irving Quintero Interpreting Provider: Irving Quintero [facility] XR Hip - right 2 Viewson IMPRESSION: Possible fracture of the right superior pubic ramus pubic bone junction and left inferior pubic ramus. D/ / Irving Quintero Interpreting Provider: Irving Quintero OLOGY EXAMINATION: TWO XRAY VIEWS OF THE RIGHT HIP 09/12/2022 11:18 am COMPARISON: None. HISTORY: ORDERING SYSTEM PROVIDED HISTORY: TECHNOLOGIST PROVIDED HISTORY: Reason for Exam: pain, fall; FINDINGS: Superior right hip joint space is maintained. Osteophyte formation involving the right acetabulum. No fracture or dislocation of the right hip. Chondrocalcinosis involving the right hip. Superior left hip joint space is maintained. Osteophyte formation involving the left acetabulum. No fracture or dislocation left hip. Chondrocalcinosis is seen involving the left hip. Possible fracture of the right superior pubic ramus pubic bone junction. Possible fracture of the left inferior pubic ramus. Pubic symphysis and SI joints are intact. RADIOLOGY Amaury Rodriguez MD - 09/12/2022 EXAMINATION: TWO XRAY VIEWS OF THE RIGHT HIP 09/12/2022 11:18 am COMPARISON: None. HISTORY: ORDERING SYSTEM PROVIDED HISTORY: TECHNOLOGIST PROVIDED HISTORY: Reason for Exam: pain, fall; FINDINGS: Superior right hip joint space is maintained. Osteophyte formation involving the right acetabulum. No fracture or dislocation of the right hip. Chondrocalcinosis involving the right hip. Superior left hip joint space is maintained. Osteophyte formation involving the left acetabulum. No fracture or dislocation left hip. Chondrocalcinosis is seen involving the left hip. Possible fracture of the right superior pubic ramus pubic bone junction. Possible fracture of the left inferior pubic ramus. Pubic symphysis and SI joints are intact. IMPRESSION IMPRESSION: Possible fracture of the right superior pubic ramus pubic bone junction and left inferior pubic ramus. D/ / Irving Quintero Interpreting Provider: Irving Quintero [facility] Radiology Study observation (narrative) [facility] PT/INR POINT OF CAREon 08-28 POC INR 2.3 [facility] Comment on above: Result Comment: For patients on oral anticoagulants, the therapeutic INR reference range is 2.0 to 3.5 PT/INR (POC Device) 27.3 seconds High 9.4-12.1 [facility] FOOT AND HAND CAREon 023 Radiology Study observation (narrative) [facility] FOOT AND HAND CAREon 023 Anshul Mccormick DPM 08/26/2022 8:44 PM FOOT AND HAND CARE Date/Time: 08/13/2022 3:45 PM Performed by: Anshul Mccormick DPM Authorized by: Anshul Mccormick DPM Procedure: nail debridement Location: Foot Procedure Location: L big toe R second toe L second toe R third toe L third toe R fourth toe L fourth toe R little toe and L little toe Number of nails trimmed: 9 Patient tolerance: patient tolerated the procedure well with no immediate complications Comments: Nail debridement carried out of all affected nails with nail nipper and nail cutlery grinder, width, length, and thickness to prevent ulceration and infection. No complications ensued. Consent: Consent was obtained prior to the procedure after discussion of the risks, benefits and alternatives, and expected outcomes were discussed with the patient. The possibilities of reaction to medication, bleeding, infection, the need for additional procedures, failure to diagnosis a condition, and creating a complication requiring operation were discussed with the patient. The patient concurred with the proposed plan, giving consent. Preparation: skin prepped with alcohol [facility] PT/INR POINT OF CAREon 08-07 POC INR 2.2 [facility] Comment on above: Result Comment: For patients on oral anticoagulants, the therapeutic INR reference range is 2.0 to 3.5 PT/INR (POC Device) 26.8 seconds High 9.4-12.1 [facility] CYSTOSCOPYon 08-02-2022 Radiology Study observation (narrative) [facility] CYSTOSCOPYon 07-31-2022 Neno Domínguez MD 08/02/2022 6:36 AM CYSTOSCOPY Date/Time: 07/31/2022 11:00 AM Performed by: Neno Domínguez MD Authorized by: Neno Domínguez MD The attending physician was present for the entire procedure. Pre-Procedure: Indications: bladder cancer Detailed information of all possible complications and side effects were discussed with the patient, these include but not only; UTI, sepsis, hematuria, incontinence, urethral injury and cardiovascular complications. Informed consent was obtained. Does this procedure require a Coral Protocol? Yes. Coral Protocol is required. The patient was given one dose of antibiotics. Urine was collected for testing. Procedure: Procedure performed: cystoscopy The patient was placed supine with all pressure points well padded. Patient was prepped and draped in the usual sterile fashion with Betadine. 10 mL of lidocaine 2% topical gel was inserted into urethra for local anesthesia. A penile clamp was not applied. The flexible cystoscope was lubricated and placed into the urethral tract under direct visualization. A 360 survey of the bladder was performed. The cystoscope was reflected and the bladder neck and the ureteral orifices were inspected. The findings are detailed below. The cystoscope was removed following any additional procedures documented below. Findings: The urinary meatus appeared normal. There was not a prominent median lobe. The lateral lobes were not obstructive in appearance. No tumors observed. No bladder fistula present. No foreign bodies observed. No stones found. No trabeculations were found. Both ureteral orifices were normal in size, shape and position with efflux of clear urine. The urethra was inspected. No foreign body(s) present in urethra. No urethral diverticulum observed. No urethral stricture found. Cystoscopy normal Post Procedure: Patient tolerated procedure with no immediate complications EBL: no blood loss Procedure Comments: Cysto neg. F/u in 3 months for cysto. [facility] POCT URINE DIPSTICK AUTOMATE Don 07-31-2022 Amorphous sediment LM Ql (Urine sed) [facility] Appearance (U) clear [facility] Bacteria LM Ql (Urine sed) [facility] Bilirubin Ql (U) Negative [facility] Casts LM.LPF (Urine sed) [#/Area] [facility] Color (U) yellow [facility] Crystals LM Nom (Urine sed) [facility] Epithelial cells.squamous LM.HPF (Urine sed) [#/Area] [facility] Flow cytometry specialist review Mark (Unsp spec) [Interp] [facility] Glucose Auto test strip (U) [Mass/Vol] Negative mg/dL [facility] Ketones [Mass/Vol] Negative mg/dL [facility] Leukocyte esterase Qn (U) [facility] Leukocyte esterase Test strip Ql (U) small [facility] Microscopic observation Gram stain Nom (Bronch spec) [facility] Nitrite Ql (U) Negative [facility] pH (U) 7.0 [pH] 5 - 7 [facility] Protein Ql (U) Negative mg/dL [facility] RBC LM.HPF (Urine sed) [#/Area] [facility] RBC Ql (U) mod [facility] Specific gravity (U) [Rel density] 1.010 1.001 - 1.035 [facility] Transitional cells LM Ql (Urine sed) [facility] Urobilinogen Qn (U) 0.2 [facility] WBC LM.HPF (Urine sed) [#/Area] [facility] PT/INR POINT OF CAREon 07-24 POC INR 2.0 [facility] Comment on above: Result Comment: For patients on oral anticoagulants, the therapeutic INR reference range is 2.0 to 3.5 PT/INR (POC Device) 24.0 seconds High 9.4-12.1 [facility] INVASIVE CARDIOVASCULAR PROC EDUREon 07-17-2022 INVASIVE CARDIOVASCULAR PROCEDURE ? 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 Images from the original result were not included. Mick Cottrell Invasive Cardiology Cath Procedure Ordering Physician: JUAN WILSON Order #: [id number] Study Date: 07/13/2022 Patient Information Name MRN Description Mick Cottrell [id number] 81 y.o. male Location Name Address [address] [address] Physicians Panel Physicians Referring Physician Case Authorizing Physician Juan Wilson MD (Primary) Self Self Juan Wilson MD Procedures LEFT HEART CATHETERIZATION CORONARY ANGIOGRAM Indications Anginal equivalent [I20.8 (ICD-10-CM)] Equivalent angina [I20.8 (ICD-10-CM)] Primary hypertension [I10 (ICD-10-CM)] S/P AVR (aortic valve replacement) [Z95.2 (ICD-10-CM)] Conclusion ? 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 Medical History Diagnosis Date Comment Source Amaurosis fugax of right eye 05/23/2010 Aortic stenosis Benign prostatic hyperplasia Bladder cancer Surgery x 2; BCG, recurrence 2011 Carpal tunnel syndrome Chronic sinusitis Colon polyp Constipation COPD (chronic obstructive pulmonary disease) Degenerative arthritis of cervical spine Dependent edema Depression with anxiety Diabetes mellitus, type 2 Dysphagia Intra-op EGD 08/17 negative Empyema 11/28/2011 pneumonia GERD (gastroesophageal reflux disease) Hearing loss sensory, bilateral Heartburn HLD (hyperlipidemia) HTN (hypertension) Hyperplasia of prostate with lower urinary tract symptoms (LUTS) Migraine with aura 03/25/2010 Neuropathy, peripheral numb and tingling on sole of left foot SANJU on CPAP biPAP Osteoarthritis Stroke 03/25/2011 TIA (transient ischemic attack) 05/2008, possible 06/02 has follow up with neurologist next month Vitamin D deficiency Medical History - Pertinent Negatives Pertinent Negative Date Comment Source Pacemaker 11/06/2014 Procedure The risks and alternatives of the procedure and sedation were explained. Informed consent was obtained. The patient was brought to the tailings dam laborer and placed on the table. The planned puncture sites were prepped and draped in the usual sterile fashion. Coronary Findings Diagnostic Dominance: Left Left Main The vessel was visualized by angiography, is moderate in size and is angiographically normal. Left Anterior Descending The vessel was visualized by angiography, is moderate in size and is angiographically normal. Ramus Intermedius Ramus lesion is 60% stenosed. Left Circumflex The vessel was visualized by angiography and is large. The vessel exhibits minimal luminal irregularities. Right Coronary Artery The vessel was visualized by angiography and is small. The vessel exhibits minimal luminal irregularities. Intervention No interventions have been documented. Left Heart Left Ventricle LV end diastolic pressure is normal. Fluoro Dose Fluoro Dose: 11 Gy-cm^2 Complications Complications documented before study signed (07/17/2022 4:20 PM) No complications were associated with this study. Documented by Juan Wilson MD - 07/17/2022 4:20 PM Cardiac Speech Writer Attending Physician Statement and Signature I have personally performed and/or personally supervised and was present for this entire procedure, including the review and interpretation of all images and physiologic tracings acquired during the course of this study. Signed at 1620 EDT Coronary Findings Diagnostic Dominance: Left Left Main The vessel was visualized by angiography, is moderate in size and is angiographically normal. Left Anterior Descending The vessel was visualized by angiography, is moderate in size and is angiographically normal. Ramus Intermedius Ramus lesion is 60% stenosed. Left Circumflex The vessel was visualized by angiography and is large. The vessel exhibits minimal luminal irregularities. Right Coronary Artery The vessel was visualized by angiography and is small. The vessel exhibits minimal luminal irregularities. Intervention No interventions have been documented. Case Tracking Events Event Time In Patient In - Facility (Arrived) 8:19 AM In Preprocedure 8:27 AM Preprocedure Complete 10:45 AM H&P Complete 10:45 AM Patient Ready for Procedure-No Consent 10:45 AM Medical History Prompt Yes/No Comments Date UT Unanswered Hypertension Yes Stroke Yes 03/25/2011 Vascular Disease Unanswered COPD Yes Diabetes Yes Surgical History Prompt Yes/No Procedure Laterality Comments Date CABG Unanswered Coronary Artery Bypass Graft Tobacco Use Former; Cigarettes: Quit 07/05/1996; 1.50 packs/day for 45.[address]?: Ex-smoker ([id number]). Smokeless Tobacco: Former user of smokeless tobacco; Quit 07/05/1996; Types: Chew. (more content not included)... [facility] in [place] PROTIME-INRon 07-13-2022 INR Coag (PPP) [Relative time] 1.2 {INR} [facility] Comment on above: Result Comment: For Patients on oral anticoagulants, the therapeutic INR reference range is 2.0 to 3.5 PT Coag (PPP) [Time] 13.0 s High 9.4-12.1 [facility] INR Coag (Bld) [Relative time] 1.2 {INR} [facility] Comment on above: For Patients on oral anticoagulants, the therapeutic INR reference range is 2.0 to 3.5 Interpretation and review of laboratory results Abnormal [facility] PT Coag (PPP) [Time] 13.0 s High [facility] BASIC METABOLIC PANELon 06-23 Calcium [Mass/Vol] 9.8 mg/dL Normal 8.6-10.3 [facility] Chloride [Moles/Vol] 104 mmol/L Normal 98-107 [facility] CO2 [Moles/Vol] 28 mmol/L Normal 23-29 [facility] Creatinine [Mass/Vol] 1.25 mg/dL Normal 0.70-1.30 [facility] GFR/1.73 sq M.predicted among non-blacks MDRD (S/P/Bld) [Vol rate/Area] 58 mL/min/{1.73_m2} Low >=60 [facility] Comment on above: Result Comment: Repo rted eGFR is based on the CKD-EPI 2020 equation using creatinine, age, and sex. Glucose [Mass/Vol] 114 mg/dL High 70-105 [facility] Osmolality [Osmolality] 292 mosm/kg Normal 280-300 [facility] Potassium [Moles/Vol] 3.5 mmol/L Normal 3.5-5.1 [facility] Sodium [Moles/Vol] 140 mmol/L Normal 136-145 [facility] Urea nitrogen [Mass/Vol] 17 mg/dL Normal 8-23 [facility] Urea nitrogen/Creatinine [Mass ratio] 14 mg/mg Normal 6-26 [facility] CBC AND ELECTRONIC DIFFon Basophils (Bld) [#/Vol] 0.0 10*3/uL Normal 0.0-0.2 [facility] Basophils/100 WBC (Bld) 0.3 % Normal [facility] in [place] Eosinophils (Bld) [#/Vol] 0.1 10*3/uL Normal 0.0-0.6 [facility] [place] Eosinophils/100 WBC (Bld) 1.2 % Normal [facility] [place] Hematocrit (Bld) [Volume fraction] 47.0 % Normal 37.5-50.1 [facility] [place] Hemoglobin (Bld) [Mass/Vol] 15.2 g/dL Normal 12.9-16.9 [facility] Immature Grans % 0.2 % Normal [facility] [place] Lymphocytes (Bld) [#/Vol] 1.2 10*3/uL Normal 0.6-4.6 [facility] Lymphocytes/100 WBC (Bld) 13.5 % Normal [facility] [place] MCV (RBC) [Entitic vol] 96.9 fL Normal 83.0-100.0 [facility] Mean Cell Hgb 31.3 pg Normal 28.0-33.0 [facility] Mean Cell Hgb Conc 32.3 g/dL Normal 31.6-35.5 [facility] in [place] Monocytes (Bld) [#/Vol] 0.6 10*3/uL Normal 0.0-1.3 [facility] Monocytes/100 WBC (Bld) 7.2 % Normal [facility] Nucleated RBC 0 /100 WBC Normal [facility] [place] Platelet mean volume (Bld) [Entitic vol] 11.5 fL Normal 9.4-12.4 [facility] Platelets (Bld) [#/Vol] 155 10*3/uL Normal 140-400 [facility] RBC (Bld) [#/Vol] 4.85 10*6/uL Normal 4.19-5.50 [facility] in [place] RBC Distribution 14.0 % Normal 11.5-14.5 [facility] Segs + Bands Auto 77.6 % Normal [facility] in [place] Segs + Bands,Absolute Auto 6.9 K/uL Normal 1.6-8.9 [facility] WBC (Bld) [#/Vol] 8.9 10*3/uL Normal 4.3-11.1 [facility] PROTIME-INRon 07-05-2022 INR Coag (PPP) [Relative time] 2.0 {INR} Normal [facility] Comment on above: Result Comment: For Patients on oral anticoagulants, the therapeutic INR reference range is 2.0 to 3.5 PT Coag (PPP) [Time] 21.6 s High 9.4-12.1 [facility] PT/INR POINT OF CAREon 06-26 POC INR 2.6 Normal [facility] Comment on above: Result Comment: For patients on oral anticoagulants, the therapeutic INR reference range is 2.0 to 3.5 PT/INR (POC Device) 30.9 seconds High 9.4-12.1 [facility].doppler Carotid arteries - bilateralon 06-15-2022 Carotid Duplex Patient Name: MICK COTTRELL Order Number: [id number] Procedure Date: 06/14/2022 Date: 1940 Age: [age] yrs Gender: Male Location: [facility] OP Room #: It Teacher: Marquez Simental RDCS Referring MD: Juan Wilson MD Reading MD: Percy Wheatley MD, FACS Primary Indications: Bilateral carotid bruit Risk Factors Yes/No Diabetes Yes Hypertension Yes Smoker Previous Yes Hypercholesterolemia Yes Anticoagulants Yes Hx of CAD/PTCA No Previous Vascular Surgery No Hx of TIA No Hx of CVA No Impressions: Findings: Bilateral carotid system has nonstenotic plaque. Findings Carotid Results Right The right proximal common carotid artery has a PSV of 81 cm/s and a EDV of 11 cm/s. The right mid common carotid artery has a PSV of 59 cm/s and a EDV of 12 cm/s. There is nonstenosis plaque in the right distal common carotid artery with a PSV of 52 cm/s and a EDV of 10 cm/s. There is nonstenosis plaque in the right bifurcation with a PSV of 45 cm/s and a EDV of 11 cm/s. There is nonstenosis plaque in the right proximal internal carotid artery with a PSV of 60 cm/s and a EDV of 12 cm/s. The right mid internal carotid artery has a PSV of 74 cm/s and a EDV of 18 cm/s. The right distal internal carotid artery has a PSV of 58 cm/s and a EDV of 18 cm/s. The right eca has a PSV of 55 cm/s. The right vertebral artery has a PSV of 49 cm/s and a EDV of 12 cm/s. Left There is nonstenosis plaque in the left proximal common carotid artery with a PSV of 59 cm/s and a EDV of 10 cm/s. There is nonstenosis plaque in the left mid common carotid artery with a PSV of 53 cm/s and a EDV of 9 cm/s. There is nonstenosis plaque in the left distal common carotid artery with a PSV of 61 cm/s and a EDV of 12 cm/s. There is nonstenosis plaque in the left bifurcation with a PSV of 48 cm/s and a EDV of 7 cm/s. There is nonstenosis plaque in the left proximal internal carotid artery with a PSV of 40 cm/s and a EDV of 8 cm/s. The left mid internal carotid artery has a PSV of 62 cm/s and a EDV of 13 cm/s. The left distal internal carotid artery has a PSV of 71 cm/s and a EDV of 16 cm/s. The left eca has a PSV of 81 cm/s and a EDV of 9 cm/s. The left vertebral artery has a PSV of 47 cm/s and a EDV of 11 cm/s. Recommendations After imaging the patient returned home. Carotid Results Right PSV EDV Assessment Proximal CCA 81 11 Mid CCA 59 12 Distal CCA 52 10 Non Stenotic Plaque Bifurcation 45 11 Non Stenotic Plaque Proximal ICA 60 12 Non Stenotic Plaque Mid ICA 74 18 Distal ICA 58 18 ECA 55 Vertebral Artery 49 12 Left PSV EDV Assessment Proximal CCA 59 10 Non Stenotic Plaque Mid CCA 53 9 Non Stenotic Plaque Distal CCA 61 12 Non Stenotic Plaque Bifurcation 48 7 Non Stenotic Plaque Proximal ICA 40 8 Non Stenotic Plaque Mid ICA 62 13 Distal ICA 71 16 ECA 81 9 Vertebral Artery 47 11 Ratio's Right ICA/CCA Ratio: 0.91 ICA/CCA Values: 74/81 ICA Resistance Index: 0.84 EDV ICA / CCA Ratio: 1.50 EDV ICA/CCA Values: 18/12 Left (more content not included)... CARDIOLOGY Percy Wheatley MD - 06/15/2022 Carotid Duplex Patient Name: MICK COTTRELL Order Number: [id number] Procedure Date: 06/14/2022 Date: 1940 Age: [age] yrs Gender: Male Location: [facility] OP Room #: It Teacher: Marquez Simental RDCS Referring MD: Juan Wilson MD Reading MD: Percy Wheatley MD, [facility] Primary Indications: Bilateral carotid bruit Risk Factors Yes/No Diabetes Yes Hypertension Yes Smoker Previous Yes Hypercholesterolemia Yes Anticoagulants Yes Hx of CAD/PTCA No Previous Vascular Surgery No Hx of TIA No Hx of CVA No Impressions: Findings: Bilateral carotid system has nonstenotic plaque. Findings Carotid Results Right The right proximal common carotid artery has a PSV of 81 cm/s and a EDV of 11 cm/s. The right mid common carotid artery has a PSV of 59 cm/s and a EDV of 12 cm/s. There is nonstenosis plaque in the right distal common carotid artery with a PSV of 52 cm/s and a EDV of 10 cm/s. There is nonstenosis plaque in the right bifurcation with a PSV of 45 cm/s and a EDV of 11 cm/s. There is nonstenosis plaque in the right proximal internal carotid artery with a PSV of 60 cm/s and a EDV of 12 cm/s. The right mid internal carotid artery has a PSV of 74 cm/s and a EDV of 18 cm/s. The right distal internal carotid artery has a PSV of 58 cm/s and a EDV of 18 cm/s. The right eca has a PSV of 55 cm/s. The right vertebral artery has a PSV of 49 cm/s and a EDV of 12 cm/s. Left There is nonstenosis plaque in the left proximal common carotid artery with a PSV of 59 cm/s and a EDV of 10 cm/s. There is nonstenosis plaque in the left mid common carotid artery with a PSV of 53 cm/s and a EDV of 9 cm/s. There is nonstenosis plaque in the left distal common carotid artery with a PSV of 61 cm/s and a EDV of 12 cm/s. There is nonstenosis plaque in the left bifurcation with a PSV of 48 cm/s and a EDV of 7 cm/s. There is nonstenosis plaque in the left proximal internal carotid artery with a PSV of 40 cm/s and a EDV of 8 cm/s. The left mid internal carotid artery has a PSV of 62 cm/s and a EDV of 13 cm/s. The left distal internal carotid artery has a PSV of 71 cm/s and a EDV of 16 cm/s. The left eca has a PSV of 81 cm/s and a EDV of 9 cm/s. The left vertebral artery has a PSV of 47 cm/s and a EDV of 11 cm/s. Recommendations After imaging the patient returned home. Carotid Results Right PSV EDV Assessment Proximal CCA 81 11 Mid CCA 59 12 Distal CCA 52 10 Non Stenotic Plaque Bifurcation 45 11 Non Stenotic Plaque Proximal ICA 60 12 Non Stenotic Plaque Mid ICA 74 18 Distal ICA 58 18 ECA 55 Vertebral Artery 49 12 Left PSV EDV Assessment Proximal CCA 59 10 Non Stenotic Plaque Mid CCA 53 9 Non Stenotic Plaque Distal CCA 61 12 Non Stenotic Plaque Bifurcation 48 7 Non Stenotic Plaque Proximal ICA 40 8 Non Stenotic Plaque Mid ICA 62 13 Distal ICA 71 16 ECA 81 9 Vertebral Artery 47 11 Ratio's Right ICA/CCA Ratio: 0.91 ICA/CCA Values: 74/81 ICA Resistance Index: 0.84 EDV ICA / CCA Ratio: 1.50 EDV ICA/CCA Values: 18/12 Left ICA/CCA Ratio: 1.16 ICA/CCA Values:71/61 ICA Resistance Index: 0.89 EDV ICA / CCA Ratio: 1.33 EDV ICA/CCA Values:16/12 Updated by Percy Wheatley MD, FACS on 2:23 PM among electronically signed by among on 06/15/2022 2:23:54 PM with status of Final [facility].doppler Carotid arteries - bilateralOrdered By: Percy Wheatley on 06-15-2022 [id number] Work Phone: [facility] DUPLEX CAROTID BILATERA Marquise 06-15-2022 VAS DUPLEX CAROTID BILATERAL Carotid Duplex Patient Name: MICK COTTRELL Order Number: [id number] Procedure Date: 06/14/2022 Date: 1940 Age: [age] yrs Gender: Male Location: [facility] OP Room #: It Teacher: Marquez Simental RDCS Referring MD: Juan Wilson MD Reading MD: Percy Wheatley MD, [facility] Primary Indications: Bilateral carotid bruit Risk Factors Yes/No Diabetes Yes Hypertension Yes Smoker Previous Yes Hypercholesterolemia Yes Anticoagulants Yes Hx of CAD/PTCA No Previous Vascular Surgery No Hx of TIA No Hx of CVA No Impressions: Findings: Bilateral carotid system has nonstenotic plaque. Findings Carotid Results Right The right proximal common carotid artery has a PSV of 81 cm/s and a EDV of 11 cm/s. The right mid common carotid artery has a PSV of 59 cm/s and a EDV of 12 cm/s. There is nonstenosis plaque in the right distal common carotid artery with a PSV of 52 cm/s and a EDV of 10 cm/s. There is nonstenosis plaque in the right bifurcation with a PSV of 45 cm/s and a EDV of 11 cm/s. There is nonstenosis plaque in the right proximal internal carotid artery with a PSV of 60 cm/s and a EDV of 12 cm/s. The right mid internal carotid artery has a PSV of 74 cm/s and a EDV of 18 cm/s. The right distal internal carotid artery has a PSV of 58 cm/s and a EDV of 18 cm/s. The right eca has a PSV of 55 cm/s. The right vertebral artery has a PSV of 49 cm/s and a EDV of 12 cm/s. Left There is nonstenosis plaque in the left proximal common carotid artery with a PSV of 59 cm/s and a EDV of 10 cm/s. There is nonstenosis plaque in the left mid common carotid artery with a PSV of 53 cm/s and a EDV of 9 cm/s. There is nonstenosis plaque in the left distal common carotid artery with a PSV of 61 cm/s and a EDV of 12 cm/s. There is nonstenosis plaque in the left bifurcation with a PSV of 48 cm/s and a EDV of 7 cm/s. There is nonstenosis plaque in the left proximal internal carotid artery with a PSV of 40 cm/s and a EDV of 8 cm/s. The left mid internal carotid artery has a PSV of 62 cm/s and a EDV of 13 cm/s. The left distal internal carotid artery has a PSV of 71 cm/s and a EDV of 16 cm/s. The left eca has a PSV of 81 cm/s and a EDV of 9 cm/s. The left vertebral artery has a PSV of 47 cm/s and a EDV of 11 cm/s. Recommendations After imaging the patient returned home. Carotid Results Right PSV EDV Assessment Proximal CCA 81 11 Mid CCA 59 12 Distal CCA 52 10 Non Stenotic Plaque Bifurcation 45 11 Non Stenotic Plaque Proximal ICA 60 12 Non Stenotic Plaque Mid ICA 74 18 Distal ICA 58 18 ECA 55 Vertebral Artery 49 12 Left PSV EDV Assessment Proximal CCA 59 10 Non Stenotic Plaque Mid CCA 53 9 Non Stenotic Plaque Distal CCA 61 12 Non Stenotic Plaque Bifurcation 48 7 Non Stenotic Plaque Proximal ICA 40 8 Non Stenotic Plaque Mid ICA 62 13 Distal ICA 71 16 ECA 81 9 Vertebral Artery 47 11 Ratio's Right ICA/CCA Ratio: 0.91 ICA/CCA Values: 74/81 ICA Resistance Index: 0.84 EDV ICA / CCA Ratio: 1.50 EDV ICA/CCA Values: 18/12 Left ICA/CCA Ratio: 1.16 ICA/CCA Values:71/61 ICA Resistance Index: 0.89 EDV ICA / CCA Ratio: 1.33 EDV ICA/CCA Values:16/12 Updated by Percy Wheatley MD, FACS on 2:23 PM among electronically signed by among on 06/15/2022 2:23:54 PM with status of Final [facility] [place] Cardiac echo study Procedure on 06-14-2022 Ao peak colleen 2.90 m/s [facility] Ao VTI 67.200 cm [facility] AR Max Colleen 2.180 m/s [facility] AV LVOT peak gradient 8 mmHg [facility] AV mean gradient 19.00 mmHg [facility] AV peak gradient 34 mmHG [facility] AV regurgitation pressure 1/2 time 558.000 ms [facility] AV valve area 1.50 cm2 [facility] Velocity Ratio 0.48 [facility] KAT (continuity Vmax) 1.51 cm2 [facility] KAT (continuity VTI) 1.50 cm2 [facility] Avg e' pk colleen 0.05 m/s [facility] Avg E/e' ratio 10.75 [facility] TH BP EF 67 % [facility] DI (Vmax) 0.48 [facility] DI (VTI) 0.48 m/2 [facility] e' lateral pk colleen 0.0600 m/s [facility] e' lateral pk colleen 0.06 m/s [facility] e' septal pk colleen 0.038 m/s [facility] e' septal pk colleen 0.04 m/s [facility] E/A ratio 0.47 [facility] E/e' lateral ratio 8.33 [facility] E/e' septal ratio 13.16 [facility] EALTH EF SP 2CH 65 [facility] EF SP 4CH 66 [facility] EST RAP 3.00 mmHg [facility] EST RVSP 22 mmHg [facility] FS 33 % 28 - 44 % [facility] IVS 1.16 cm [facility] LA AREA 2CH 17.000 cm2 [facility] LA area 4CH 16.500 cm2 [facility] LA ESV BP (MOD) 44 mL [facility] LA ESV SP 2CH (MOD) 45 mL [facility] LA ESV SP 4CH (MOD) 42 mL [facility] LA size 3.900 cm [facility] LV EDV BP 42 mL [facility] LV EDV SP 2CH 43 mL [facility] LV EDV SP 4CH 38 mL [facility] LV ESV BP 14 mL [facility] LV ESV SP 2CH 15 mL [facility] LV ESV SP 4CH 13 mL [facility] LV mass 195.84 g [facility] LV RWT 0.44 [facility] LV stroke volume BP (ml) 28 mL [facility] LVIDD 4.81 cm [facility] LVIDS 3.200 cm [facility] LVOT area 3.14 cm2 [facility] LVOT diameter 2.00 cm [facility] LVOT peak colleen 1.39 m/s [facility] LVOT peak VTI 32.200 cm [facility] LVOT stroke volume 101 cm3 [facility] Mr max colleen 3.550 m/s [facility] MV pk A colleen 1.070 m/s [facility] MV pk E colleen 0.50 m/s [facility] MV stenosis pressure 1/2 time 97 ms [facility] MV valve area p 1/2 method 2.27 cm2 [facility] AV VTI RATIO PRE STRESS 0.48 [facility] ECHO MR PEAK GRADIENT 50.000 mmHg [facility] Pulmonary artery end diastolic pressure 3.000 mmHg [facility] PV peak gradient 3 mmHg [facility] PV PK COLLEEN 0.836 m/s [facility] PW 1.05 cm [facility] RA area 4CH (MOD) 13.100 cm2 [facility] EALT Right atrium volume 4 chamber method of disks 30 mL [facility] RV basal diam 3.700 cm [facility] RV long diam 6.300 cm [facility] RV mid diam 2.000 cm [facility] RV S' 12.600 cm/s [facility] Sinus 2.94 cm [facility] STJ 2.40 cm [facility] Stroke Volume 101 cm/mL [facility] TAPSE 1.890 cm [facility] TR pk grad 19 mmHg [facility] TR pk colleen 2.190 m/s [facility] Normal left ventricl e size and systolic function. LVEF= 65-70%. Impaired relaxation/grade I LV diastolic dysfunction. Normal right ventricle size and systolic function. Bioprosthetic aortic valve with normal function without stenosis or regurgitation. No pulmonary hypertension. No significant change c/w 04/27/2021 study. Left Ventricle Chamber size is normal. Normal wall thickness. Concentric remodeling is present. Normal global systolic function. Regional wall motion is normal. Ejection fraction is normal (65 - 70%). Diastolic function is consistent with impaired relaxation (grade I). Probably normal left atrial pressure. Right Ventricle Chamber size is normal. Normal wall thickness. Segmental wall motion is normal. Systolic function is normal. Left Atrium Chamber size is normal. Right Atrium Chamber size is normal. IVC/SVC The inferior vena cava structure has a diameter <21 mm and decreases >50% during inspiration. Mitral Valve Mild non-specific leaflet thickening. Leaflet mobility is normal. Trace regurgitation. No valve stenosis. Tricuspid Valve Normal leaflets. Leaflet mobility is normal. Trace regurgitation. No stenosis. No echo/Doppler evidence for pulmonary hypertension. Aortic Valve Bioprosthetic valve. The prosthetic valve has normal pressure gradients. MG 15mmHg. DI 0.48, AT 70ms. No regurgitation. Pulmonic Valve Pulmonic valve not well visualized. Trace regurgitation. No stenosis. Pericardium Appears normal. No pericardial effusion. Septum Atrial septum not well visualized. The atrial septum is thickened. Aorta Aorta not well visualized. Study Details A complete echocardiography study was performed. Overall study quality was good. Contrast was not administered per physician discretion. Study limitations include poor cardiac windows, poor parasternal window and technically difficult study. Imaging system used: [employer]. Indications Indications for study: other - LOPEZ. S/P AOV Repair . Wall Scoring Score Index: 1.00 The left ventricular wall motion is normal. [facility] Radiology Study observation (narrative) [facility] ECHOCARDIOGRAMon 06-14-2022 Echocardiography Normal left ventricl e size and systolic function. LVEF= 65-70%. Impaired relaxation/grade I LV diastolic dysfunction. Normal right ventricle size and systolic function. Bioprosthetic aortic valve with normal function without stenosis or regurgitation. No pulmonary hypertension. No significant change c/w 04/27/2021 study. Table formatting from the original result was not included. Images from the original result were not included. Facility [facility] Patient Information Patient Name Mick Cottrell Legal Sex Male Indication for Exam Priority: Routine Dx: Dyspnea on exertion [R06.09 (ICD-10-CM)]; S/P AVR (aortic valve replacement) [Z95.2 (ICD-10-CM)] Comments: LOPEZ Interpretation Summary Normal left ventricle size and systolic function. LVEF= 65-70%. Impaired relaxation/grade I LV diastolic dysfunction. Normal right ventricle size and systolic function. Bioprosthetic aortic valve with normal function without stenosis or regurgitation. No pulmonary hypertension. No significant change c/w 04/27/2021 study. Findings Left Ventricle Chamber size is normal. Normal wall thickness. Concentric remodeling is present. Normal global systolic function. Regional wall motion is normal. Ejection fraction is normal (65 - 70%). Diastolic function is consistent with impaired relaxation (grade I). Probably normal left atrial pressure. Right Ventricle Chamber size is normal. Normal wall thickness. Segmental wall motion is normal. Systolic function is normal. Left Atrium Chamber size is normal. Right Atrium Chamber size is normal. Septum Atrial septum not well visualized. The atrial septum is thickened. Mitral Valve Mild non-specific leaflet thickening. Leaflet mobility is normal. Trace regurgitation. No valve stenosis. Aortic Valve Bioprosthetic valve. The prosthetic valve has normal pressure gradients. MG 15mmHg. DI 0.48, AT 70ms. No regurgitation. Tricuspid Valve Normal leaflets. Leaflet mobility is normal. Trace regurgitation. No stenosis. No echo/Doppler evidence for pulmonary hypertension. Pulmonic Valve Pulmonic valve not well visualized. Trace regurgitation. No stenosis. Aorta Aorta not well visualized. Pericardium Appears normal. No pericardial effusion. IVC/SVC The inferior vena cava structure has a diameter <21 mm and decreases >50% during inspiration. Reading Providers Reading Role Read Date Luisana Diego MD Echo [place] 06/14/2022 Wall Scoring Score Index: 1.00 The left ventricular wall motion is normal. Left Heart Measurements LV - Systole LVIDD 4.81 cm IVS 1.16 cm LVIDS 3.2 cm PW 1.05 cm LV RWT 0.44 LV EDV BP 42 mL LV ESV BP 14 mL BP EF 67 % LV stroke volume BP (ml) 28 mL LV - Diastole MV pk E colleen 0.5 m/s MV pk A colleen 1.07 m/s E/A ratio 0.47 e' septal pk colleen 0.04 m/s e' lateral pk colleen 0.06 m/s Avg e' pk colleen 0.05 m/s E/e' septal ratio 13.16 E/e' lateral ratio 8.33 Avg E/e' ratio 10.75 LV - HCM AV LVOT peak gradient 8 mmHg Left Atrium LA size 3.9 cm LA ESV SP 4CH (MOD) 42 mL LA ESV SP 2CH (MOD) 45 mL Right Heart Measurements RV - 2D RV basal diam 3.7 cm RV mid diam 2 cm RV long diam 6.3 cm RV - Doppler TAPSE 1.89 cm RV S' 12.6 cm/s Right Atrium EST RAP 3 mmHg RA area 4CH (MOD) 13.1 cm2 [facility] Aortic Root - End Diastolic Sinus 2.94 cm STJ 2.4 cm Doppler Measurements - Aortic Valve Stenosis LVOT diameter 2 cm LVOT area 3.14 cm2 LVOT peak colleen 1.39 m/s LVOT peak VTI 32.2 cm Stroke Volume 101 cm/mL Ao peak colleen 2.9 m/s Ao VTI 67.2 cm AV peak gradient 34 mmHG AV mean gradient 19 mmHg DI (VTI) 0.48 m/2 DI (Vmax) 0.48 KAT (continuity Vmax) 1.51 cm2 KAT (continuity VTI) 1.5 cm2 LVOT stroke volume 101 cm3 Regurgitation AV regurgitation pressure 1/2 time 558 ms PISA AR Max Colleen 2.18 m/s Doppler Measurements - Mitral Valve Stenosis MV pk E colleen 0.5 m/s MV pk A colleen 1.07 m/s E/A ratio 0.47 MV stenosis pressure 1/2 time 97 ms MV valve area p 1/2 method 2.27 cm2 PISA-MS MV pk E colleen 0.5 m/s PISA-MR Mr max colleen 3.55 m/s Doppler Measurements - Tricuspid Valve Regurgitation TR pk colleen 2.19 m/s TR pk grad 19 mmHg EST RAP 3 mmHg EST RVSP 22 mmHg Doppler Measurements - Pulmonic Valve Stenosis PV PK COLLEEN 0.836 m/s PV peak gradient 3 mmHg Regurgitation Pulmonary artery end diastolic pressure 3 mmHg Performing Staff Marquez Simental Study Details A complete echocardiography study was performed. Overall study quality was good. Contrast was not administered per physician discretion. Study limitations include poor cardiac windows, poor parasternal window and tech (more content not included)... [facility] [place] NUC MYOCARD PERF STRESS MIBI PHARMon 06-14-2022 NUC MYOCARD PERF STRESS MIBI PHARM Mild apical-distal inferior/inferolatera l ischemia on perfusion study (SSS=SDS=4). No infarct on perfusion study. 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 Low normal stress LVEF, 54%. Pharmacological stress ECG positive for ischemia. Ordering provider notified via [employer] In-basket. Table formatting from the original result was not included. Images from the original result were not included. Facility [facility] Patient Information Patient Name Mick Cottrell Legal Sex Male Indication for Exam Priority: Routine Dyspnea, cardiac arrhythmia suspected, ischemia excluded Dx: Dyspnea on exertion [R06.09 (ICD-10-CM)] Interpretation Summary Mild apical-distal inferior/inferolatera l ischemia on perfusion study (SSS=SDS=4). No infarct on perfusion study. 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 Low normal stress LVEF, 54%. Pharmacological stress ECG positive for ischemia. Ordering provider notified via [employer] In-basket. Stress Findings ECG Baseline ECG is normal. Baseline ECG shows arrhythmia: PVC. Baseline ECG shows non-specific ST-T wave abnormalities consistent with T wave inversion. Horizotal ST depression 0.5mm with deep T wave inversion in inferior leads and V3-6. QRS duration is normal (80-100ms). Downward-sloping ST segment depression of 1.2 mm in the inferior leads was noted during stress in lead V3, V4, V5 and V6. Arrhythmias during stress: occasional premature ventricular contractions.Stress QRS duration is normal (80-100ms). Persistenet ST depression without back to baseline. Arrhythmias during recovery: occasional premature ventricular contractions. Recovery QRS duration is normal (80-100ms). ECG results positive for ischemia. Stress Findings A pharmacological stress test was performed using regadenoson without low-level exercise. The patient reported no symptoms prior to the stress test. The patient reported shortness of breath during the stress test. The patient reached the end of the protocol. Reading Providers Reading Role Read Date Luisana Diego MD ECG [place], SPECT [place] 06/14/2022 Stress Measurements Peak Stress Vitals Peak HR 87 bpm Peak SBP 118 mmHg Peak DBP 60 mmHg Rate Pressure Product 10,266 Exercise Data APHRMAX 139 bpm % APHRMAX 63 % Exercise duration (min) 4 min Exercise duration (sec) 0 sec Estimated workload 1 METS Nuclear Stress Findings Isotope Admin The isotope used for nuclear imaging was technetium sestamibi.No radiopharmaceutical dose was extravasated. Nuclear Study Quality Overall image quality is fair. Motion and subdiaphragmatic activity artifact was visualized. Perfusion Defect There is a reversible, small left ventricular perfusion defect in the distal to apical inferior and inferolateral segment(s) of mild intensity. The defect is consistent with ischemia. Perfusion defect was visually and quantitatively present. Stress Function Defect 1 Regional wall abnormalities present. There is a defect in the apical to distal inferior segment(s) that has mildly reduced function. Nuclear Stress Gating The stress/rest perfusion ratio is 1.39. There is evidence of transient ischemic dilation (TID). TID was appreciated visually and quantitatively. Ejection fraction is 54%. Left ventricular cavity size is small. Stage Data 1 2 3 4 5 Stage Rest Stress Stress Stress Stress Stage Details 1 2 3 4 Time in stage (min:sec) Heart Rate 74 76 89 87 82 Blood Pressure 162/70 112/60 118/60 O2 Sat % Metabolic Equivalents RPE [place] Dobutamine (mcg/kg/min) Atropine (mg) Grade % Speed Bryant Score Dyspnea Bryant Score Leg Fatigue Comments 6 7 8 9 10 Stage Recovery Recovery Recovery Recovery Stage Details 1 2 4 6 Time in stage (min:sec) Heart Rate 84 82 82 79 Blood Pressure 140/60 142/60 O2 Sat % Metabolic Equivalents RPE [place] Dobutamine (mcg/kg/min) Atropine (mg) Grade % Speed Bryant Score Dyspnea Bryant Score Leg Fatigue Comments Nuclear Stress Measurements Nuc Stress EF 54 % Nuclear Perfusion Perfusion Scoring Stress Summed Score: 4 Percent Abnormal: 5.88% Moderate count reduction in the following segments: mid inferior. Mild count reduction in the following segments: mid inferolateral and apical inferior. All other segments are normal. Resting Summed Score: 0 Percent Abnormal: 0.00% The left ventricular perfusion is normal. Perfusion Scores Score Percentage Abnormal SRS 0 0.00% SSS 4 5.88% SDS 4 5.88% Stress Test Data No documentation. Performing Staff Tsering Shi Study Details Pharmacological nuclear stress test performed using 1-day protocol. Regadenoson infusion given over 10 seconds. Non-gated SPECT images obtained. Frame rate: 16 frames/sec. Imaging system used: 4DM. Exam Details Performed Procedure Technologis (more content not included)... [facility] SPECT Heart perfusion at res t and W stress and W radionuclide IVOrdered By: Luisana Diego on 06-14-2022 % APHRMAX 63 % [email or web address] Phone: APHRMAX 139 bpm [email or web address] Phone: Estimated workload 1.0 METS [email or web address] Phone: Exercise duration (min) 4 min [email or web address] Phone: Exercise duration (sec) 0 sec [facility] [employer] Phone: Nuc Stress EF 54 % [facility] [employer] Phone: Peak DBP 60 mmHg [facility] [employer] Phone: Peak HR 87 bpm [facility] [employer] Phone: Peak SBP 118 mmHg [facility] [employer] Phone: Rate Pressure Product [id number] [facility] [employer] Work Phone: ST Depression (mm) 1.2 mm [facility] [employer] Phone: [facility] [employer] Phone: SPECT Heart perfusion at res t and W stress and W radionuclide [place] 06-14-2022 Mild apical-distal inferior/inferolatera l ischemia on perfusion study (SSS=SDS=4). No infarct on perfusion study. 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 Low normal stress LVEF, 54%. Pharmacological stress ECG positive for ischemia. Ordering provider notified via [employer]. Study Details Pharmacological nuclear stress test performed using 1-day protocol. Regadenoson infusion given over 10 seconds. Non-gated SPECT images obtained. Frame rate: 16 frames/sec. Imaging system used: 4DM. Stress Findings A pharmacological stress test was performed using regadenoson without low-level exercise. The patient reported no symptoms prior to the stress test. The patient reported shortness of breath during the stress test. The patient reached the end of the protocol. ECG Baseline ECG is normal. Baseline ECG shows arrhythmia: PVC. Baseline ECG shows non-specific ST-T wave abnormalities consistent with T wave inversion. Horizotal ST depression 0.5mm with deep T wave inversion in inferior leads and V3-6. QRS duration is normal (80-100ms). Downward-sloping ST segment depression of 1.2 mm in the inferior leads was noted during stress in lead V3, V4, V5 and V6. Arrhythmias during stress: occasional premature ventricular contractions.Stress QRS duration is normal (80-100ms). Persistenet ST depression without back to baseline. Arrhythmias during recovery: occasional premature ventricular contractions. Recovery QRS duration is normal (80-100ms). ECG results positive for ischemia. Nuclear Study Quality Overall image quality is fair. Motion and subdiaphragmatic activity artifact was visualized. Perfusion Defect There is a reversible, small left ventricular perfusion defect in the distal to apical inferior and inferolateral segment(s) of mild intensity. The defect is consistent with ischemia. Perfusion defect was visually and quantitatively present. Stress Function Defect 1 Regional wall abnormalities present. There is a defect in the apical to distal inferior segment(s) that has mildly reduced function. Isotope Admin The isotope used for nuclear imaging was technetium sestamibi.No radiopharmaceutical dose was extravasated. Nuclear Stress Gating The stress/rest perfusion ratio is 1.39. There is evidence of transient ischemic dilation (TID). TID was appreciated visually and quantitatively. Ejection fraction is 54%. Left ventricular cavity size is small. Perfusion Scoring Stress Summed Score: 4 Percent Normal: 5.88% Moderate count reduction in the following segments: mid inferior. Mild count reduction in the following segments: mid inferolateral and apical inferior. All other segments are normal. Perfusion Scoring Resting Summed Score: 0 Percent Normal: 0.00% The left ventricular perfusion is normal. CARDIOLOGY Radiology Study observation (narrative) [facility] US.doppler Carotid arteries - bilateralon 06-14-2022 Radiology Study observation (narrative) [facility] PT/INR POINT OF CAREon 06-05 POC INR 2.2 [facility] Comment on above: Result Comment: For patients on oral anticoagulants, the therapeutic INR reference range is 2.0 to 3.5 PT/INR (POC Device) 25.8 seconds High 9.4-12.1 [facility] PT/INR POINT OF CAREon 05-22 POC INR 2.2 [facility] Comment on above: Result Comment: For patients on oral anticoagulants, the therapeutic INR reference range is 2.0 to 3.5 PT/INR (POC Device) 26.8 seconds High 9.4-12.1 [facility] No Panel Informationon 05-18 Juan Wilson MD 05/18/2022 11:45 AM NSR at [address] deviations in inferior and lateral leads [facility] Juan Wilson MD - 05/18/2022 11:20 AM EST NSR at [address] deviations in inferior and lateral leads [facility] PT/INR POINT OF CAREon 05-15 POC INR 2.9 Normal [facility] Comment on above: Result Comment: For patients on oral anticoagulants, the therapeutic INR reference range is 2.0 to 3.5 PT/INR (POC Device) 35.2 seconds High 9.4-12.1 [facility] PT/INR POINT OF CAREon 05-08 POC INR 3.4 Normal [facility] [place] Comment on above: Result Comment: For patients on oral anticoagulants, the therapeutic INR reference range is 2.0 to 3.5 PT/INR (POC Device) 41.3 seconds High 9.4-12.1 [facility] PT/INR POINT OF CAREon 05-04 POC INR 2.4 Normal [facility] [place] Comment on above: Result Comment: For patients on oral anticoagulants, the therapeutic INR reference range is 2.0 to 3.5 PT/INR (POC Device) 29.2 seconds High 9.4-12.1 [facility] PT/INR POINT OF CAREon 05-02 POC INR 1.2 Normal [facility] [place] Comment on above: Result Comment: For patients on oral anticoagulants, the therapeutic INR reference range is 2.0 to 3.5 PT/INR (POC Device) 13.9 seconds High 9.4-12.1 [facility] AMYLASEon 04-28-2022 Amylase [Catalytic activity/Vol] 22 U/L Low 29-103 [facility] Amylase [Catalytic activity/Vol] 22 U/L Low 29 - 103 U/L [facility] BASIC METABOLIC PANELon Calcium [Mass/Vol] 9.4 mg/dL Normal 8.6-10.3 [facility] Chloride [Moles/Vol] 104 mmol/L Normal 98-107 [facility] CO2 [Moles/Vol] 29 mmol/L Normal 23-29 [facility] Creatinine [Mass/Vol] 1.13 mg/dL Normal 0.70-1.30 [facility] GFR/1.73 sq M.predicted among non-blacks MDRD (S/P/Bld) [Vol rate/Area] 65 mL/min/{1.73_m2} Normal >=60 [facility] Comment on above: Result Comment: Repo rted eGFR is based on the CKD-EPI 202 equation using creatinine, age, and sex. Glucose [Mass/Vol] 177 mg/dL High 70-105 [facility] Osmolality [Osmolality] 294 mosm/kg Normal 280-300 [facility] Potassium [Moles/Vol] 3.8 mmol/L Normal 3.5-5.1 [facility] Sodium [Moles/Vol] 140 mmol/L Normal 136-145 [facility] Urea nitrogen [Mass/Vol] 12 mg/dL Normal 8-23 [facility] Urea nitrogen/Creatinine [Mass ratio] 11 mg/mg Normal 6-26 [facility] Calcium [Mass/Vol] 9.4 mg/dL 8.6 - 10. 3 mg/dL [facility] Chloride [Moles/Vol] 104 mmol/L 98 - 10 7 mmol/L [facility] CO2 [Moles/Vol] 29 mmol/L 23 - 29 mmol/L [facility] Creatinine [Mass/Vol] 1.13 mg/dL 0.70 - 1.30 mg/dL [facility] GFR/1.73 sq M.predicted CKD-EPI (S/P/Bld) [Vol rate/Area] 65 - PINF [facility] Comment on above: Reported eGFR is bas ed on the CKD-EPI 2020 equation using creatinine, age, and sex. Glucose [Mass/Vol] 177 mg/dL High 70 - 105 mg/dL [facility] Osmolality Calc [Osmolality] 294 280 - 300 [facility] Potassium [Moles/Vol] 3.8 mmol/L 3.5 - 5.1 mmol/L [facility] Sodium [Moles/Vol] 140 mmol/L 136 - 145 mmol/L [facility] Urea nitrogen [Mass/Vol] 12 mg/dL 8 - 23 mg/dL [facility] Urea nitrogen/Creatinine [Mass ratio] 11 mg/mg 6 - 26 [facility] CBC AND ELECTRONIC DIFFon Basophils (Bld) [#/Vol] 0.0 10*3/uL Normal 0.0-0.2 [facility] [place] Basophils/100 WBC (Bld) 0.3 % Normal [facility] [place] Eosinophils (Bld) [#/Vol] 0.0 10*3/uL Normal 0.0-0.6 [facility] [place] Eosinophils/100 WBC (Bld) 0.4 % Normal [facility] [place] Hematocrit (Bld) [Volume fraction] 41.5 % Normal 37.5-50.1 [facility] [place] Hemoglobin (Bld) [Mass/Vol] 13.4 g/dL Normal 12.9-16.9 [facility] [place] Immature Grans % 0.3 % Normal [facility] Immature Plt Fraction % 7.1 % High 1.1-6.1 [facility] [place] Lymphocytes (Bld) [#/Vol] 0.6 10*3/uL Normal 0.6-4.6 [facility] Lymphocytes/100 WBC (Bld) 7.9 % Normal [facility] [place] MCV (RBC) [Entitic vol] 97.9 fL Normal 83.0-100.0 [facility] Mean Cell Hgb 31.6 pg Normal 28.0-33.0 [facility] Mean Cell Hgb Conc 32.3 g/dL Normal 31.6-35.5 [facility] [place] Monocytes (Bld) [#/Vol] 0.4 10*3/uL Normal 0.0-1.3 [facility] Monocytes/100 WBC (Bld) 5.0 % Normal [facility] Nucleated RBC 0 /100 WBC Normal [facility] [place] Platelet mean volume (Bld) [Entitic vol] 11.5 fL Normal 9.4-12.4 [facility] Platelets (Bld) [#/Vol] 93 10*3/uL Low 140-400 [facility] RBC (Bld) [#/Vol] 4.24 10*6/uL Normal 4.19-5.50 [facility] [place] RBC Distribution 14.1 % Normal 11.5-14.5 [facility] Segs + Bands Auto 86.1 % Normal [facility] Segs + Bands,Absolute Auto 6.1 K/uL Normal 1.6-8.9 [facility] WBC (Bld) [#/Vol] 7.1 10*3/uL Normal 4.3-11.1 [facility] CBC AND ELECTRONIC DIFFOrder ed By: Yesica Villagomez on 04-28-2022 Basophils (Bld) [#/Vol] 0.0 10*3/uL 0.0 - 0.2 K/uL [facility] Basophils/100 WBC (Bld) 0.3 % [facility] Eosinophils (Bld) [#/Vol] 0.0 10*3/uL 0.0 - 0.6 K/uL [facility] Eosinophils/100 WBC (Bld) 0.4 % [facility] Erythrocyte distribution width (RBC) [Ratio] 14.1 % 11.5 - 14.5 % [facility] Hematocrit (Bld) [Volume fraction] 41.5 % 37.5 - 50.1 % [facility] Hemoglobin (Bld) [Mass/Vol] 13.4 g/dL 12.9 - 16.9 g/dL [facility] Immature granulocytes/100 WBC (Bld) 0.3 % [facility] Immature Plt Fraction % 7.1 % High 1.1 - 6.1 % [facility] Interpretation and review of laboratory results Abnormal [facility] Lymphocytes (Bld) [#/Vol] 0.6 10*3/uL 0.6 - 4.6 K/uL [facility] Lymphocytes/100 WBC (Bld) 7.9 % [facility] MCH (RBC) [Entitic mass] 31.6 pg 28.0 - 33.0 pg [facility] MCHC (RBC) [Mass/Vol] 32.3 g/dL 31.6 - 35.5 g/dL [facility] MCV (RBC) [Entitic vol] 97.9 fL 83.0 - 100.0 fL [facility] Monocytes (Bld) [#/Vol] 0.4 10*3/uL 0.0 - 1.3 K/uL [facility] Monocytes/100 WBC (Bld) 5.0 % [facility] Neutrophils (Bld) [#/Vol] 6.1 10*3/uL 1.6 - 8.9 K/uL [facility] Nucleated RBC/100 WBC (Bld) [Ratio] 0 % /100 WBC [facility] Platelet mean volume (Bld) [Entitic vol] 11.5 fL 9.4 - 12.4 fL [facility] Platelets (Bld) [#/Vol] 93 10*3/uL Low 140 - 400 K/uL [facility] RBC (Bld) [#/Vol] 4.24 10*6/uL [facility] Segmented neutrophils/100 WBC (Bld) 86.1 % [facility] WBC (Bld) [#/Vol] 7.1 10*3/uL 4.3 - 11.1 K/uL [facility] CT ABDOMEN/PELVIS WITHOUT CO NTRASTon 04-28-2022 CT ABDOMEN/PELVIS WITHOUT CONTRAST EXAMINATION: CT OF THE ABDOMEN AND PELVIS WITHOUT CONTRAST 04/28/2022 10:31 am TECHNIQUE: CT of the abdomen and pelvis was performed without the administration of intravenous contrast. Multiplanar reformatted images are provided for review. Dose modulation, iterative reconstruction, and/or weight based adjustment of the mA/kV was utilized to reduce the radiation dose to as low as reasonably achievable. COMPARISON: 01/20/2021 HISTORY: ORDERING SYSTEM PROVIDED HISTORY: TECHNOLOGIST PROVIDED HISTORY: Reason for Exam: Constipation and pain on stooling. FINDINGS: Lower Chest: There is a calcified granuloma noted in the the right lower lobe. Organs: The the liver pancreas appear unremarkable. The patient is status post cholecystectomy. There are calcified granulomas in the spleen. The adrenal glands appear unremarkable. There is a 1.9 cm cyst the upper pole of the right kidney. There are bilateral renal calculi, including a 1 cm calculus in lower pole of the left kidney. There is no evidence of hydronephrosis. GI/Bowel: There is a small hiatal hernia. Duodenum appears normal. Rest of small-bowel loops appear normal. The appendix is normal. There is diverticular disease of the colon without evidence of diverticulitis. There is normal amount of fecal material in the the colon. Pelvis: The bladder appears unremarkable. There is moderate enlargement of the prostate. The rectum is unremarkable. There is a fat containing left inguinal hernia, with herniation of some colonic diverticuli. Peritoneum/Retroperit oneum: Unremarkable Bones/Soft Tissues: Unremarkable IMPRESSION: No acute process identified. Normal amount of fecal material in the colon. Evidence of a prior granulomatous disease. Status post cholecystectomy. Bilateral renal calculi without hydronephrosis. 1.9 cm cyst the upper pole of the right kidney. Small hiatal hernia. 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 Moderate enlargement of the prostate. Small fat containing left inguinal hernia containing some herniation of colonic diverticuli. [facility] [place] [facility] IMPRESSION: No acute process identified. Normal amount of fecal material in the colon. Evidence of a prior granulomatous disease. Status post cholecystectomy. Bilateral renal calculi without hydronephrosis. 1.9 cm cyst the upper pole of the right kidney. Small hiatal hernia. 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 Moderate enlargement of the prostate. Small fat containing left inguinal hernia containing some herniation of colonic diverticuli. RADIOLOGY EXAMINATION: CT OF THE ABDOMEN AND PELVIS WITHOUT CONTRAST 04/28/2022 10:31 am TECHNIQUE: CT of the abdomen and pelvis was performed without the administration of intravenous contrast. Multiplanar reformatted images are provided for review. Dose modulation, iterative reconstruction, and/or weight based adjustment of the mA/kV was utilized to reduce the radiation dose to as low as reasonably achievable. COMPARISON: 01/20/2021 HISTORY: ORDERING SYSTEM PROVIDED HISTORY: TECHNOLOGIST PROVIDED HISTORY: Reason for Exam: Constipation and pain on stooling. FINDINGS: Lower Chest: There is a calcified granuloma noted in the the right lower lobe. Organs: The the liver pancreas appear unremarkable. The patient is status post cholecystectomy. There are calcified granulomas in the spleen. The adrenal glands appear unremarkable. There is a 1.9 cm cyst the upper pole of the right kidney. There are bilateral renal calculi, including a 1 cm calculus in lower pole of the left kidney. There is no evidence of hydronephrosis. GI/Bowel: There is a small hiatal hernia. Duodenum appears normal. Rest of small-bowel loops appear normal. The appendix is normal. There is diverticular disease of the colon without evidence of diverticulitis. There is normal amount of fecal material in the the colon. Pelvis: The bladder appears unremarkable. There is moderate enlargement of the prostate. The rectum is unremarkable. There is a fat containing left inguinal hernia, with herniation of some colonic diverticuli. Peritoneum/Retroperit oneum: Unremarkable Bones/Soft Tissues: Unremarkable RADIOLOGY Hyacinth Lopez MD - 04/28/2022 EXAMINATION: CT OF THE ABDOMEN AND PELVIS WITHOUT CONTRAST 04/28/2022 10:31 am TECHNIQUE: CT of the abdomen and pelvis was performed without the administration of intravenous contrast. Multiplanar reformatted images are provided for review. Dose modulation, iterative reconstruction, and/or weight based adjustment of the mA/kV was utilized to reduce the radiation dose to as low as reasonably achievable. COMPARISON: 01/20/2021 HISTORY: ORDERING SYSTEM PROVIDED HISTORY: TECHNOLOGIST PROVIDED HISTORY: Reason for Exam: Constipation and pain on stooling. FINDINGS: Lower Chest: There is a calcified granuloma noted in the the right lower lobe. Organs: The the liver pancreas appear unremarkable. The patient is status post cholecystectomy. There are calcified granulomas in the spleen. The adrenal glands appear unremarkable. There is a 1.9 cm cyst the upper pole of the right kidney. There are bilateral renal calculi, including a 1 cm calculus in lower pole of the left kidney. There is no evidence of hydronephrosis. GI/Bowel: There is a small hiatal hernia. Duodenum appears normal. Rest of small-bowel loops appear normal. The appendix is normal. There is diverticular disease of the colon without evidence of diverticulitis. There is normal amount of fecal material in the the colon. Pelvis: The bladder appears unremarkable. There is moderate enlargement of the prostate. The rectum is unremarkable. There is a fat containing left inguinal hernia, with herniation of some colonic diverticuli. Peritoneum/Retroperit oneum: Unremarkable Bones/Soft Tissues: Unremarkable IMPRESSION IMPRESSION: No acute process identified. Normal amount of fecal material in the colon. Evidence of a prior granulomatous disease. Status post cholecystectomy. Bilateral renal calculi without hydronephrosis. 1.9 cm cyst the upper pole of the right kidney. Small hiatal hernia. 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 Moderate enlargement of the prostate. Small fat containing left inguinal hernia containing some herniation of colonic diverticuli. [facility] Radiology Study observation (narrative) [facility] CT Abdomen and Pelvis WO con trastOrdered By: Hyacinth Lopez on 04-28-2022 [facility] Work Phone: HEPATIC FUNCTION PANELon Albumin [Mass/Vol] 4.0 g/dL Normal 3.5-5.7 [facility] [place] Albumin/Globulin [Mass ratio] 1.8 {ratio} Normal 1.1-2.2 [facility] ALP [Catalytic activity/Vol] 103 U/L Normal 34-104 [facility] ALT [Catalytic activity/Vol] 47 U/L Normal 7-52 [facility] AST [Catalytic activity/Vol] 33 U/L Normal 13-39 [facility] [place] Bilirubin [Mass/Vol] 0.7 mg/dL Normal 0.3-1.0 [facility] Bilirubin, Indirect 0.6 mg/dL Normal 0.0-1.0 [facility] [place] Bilirubin.indirect [Mass/Vol] 0.1 mg/dL Normal <=0.2 [facility] Globulin (S) [Mass/Vol] 2.2 g/dL Low 2.4-3.5 [facility] Protein [Mass/Vol] 6.2 g/dL Low 6.4-8.9 [facility] [place] Albumin [Mass/Vol] 4.0 g/dL 3.5 - 5.7 g/dL [facility] Albumin/Globulin [Mass ratio] 1.8 {ratio} 1.1 - 2.2 [facility] ALP [Catalytic activity/Vol] 103 U/L 34 - 104 U/L [facility] ALT [Catalytic activity/Vol] 47 U/L 7 - 52 U/L [facility] AST [Catalytic activity/Vol] 33 U/L 13 - 39 U/L [facility] Bilirubin [Mass/Vol] 0.7 mg/dL 0.3 - 1 .0 mg/dL [facility] Bilirubin, Indirect 0.6 mg/dL 0.0 - 1. 0 mg/dL [facility] Bilirubin.direct [Mass/Vol] 0.1 mg/dL NINF - 0.2 mg/dL [facility] Globulin (S) [Mass/Vol] 2.2 g/dL Low 2.4 - 3.5 g/dL [facility] Protein [Mass/Vol] 6.2 g/dL Low 6.4 - 8.9 g/dL [facility] LIPASEon 04-28-2022 Lipase [Catalytic activity/Vol] 20 U/L Normal [facility] [place] Interpretation and review of laboratory results Normal [facility] Lipase [Catalytic activity/Vol] 20 U/L U/L [facility] No Panel Informationon 04-28 Interpretation and review of laboratory results Abnormal [facility] URINE DIPSTICK WITH REFLEX M ICROSCOPYon 04-28-2022 Appearance (U) Turbid Abnormal Clear [facility] [place] Bacteria, Urine Few Normal None-Few [facility] [place] Bilirubin Ql (U) Negative Normal Negative [facility] [place] Blood Urine Moderate Abnormal Negative [facility] [place] Color (U) Light Yellow Normal Yellow [facility] [place] Glucose Ql (U) Normal Normal Normal [facility] [place] Hyaline casts LM Ql (Urine sed) Few Abnormal None Seen [facility] [place] Ketones Ql (U) Negative Normal Negative [facility] [place] Leukocyte esterase Test strip Ql (U) Negative Normal Negative [facility] [place] Mucus, Urine Few Normal None-Few [facility] [place] Nitrites Urine Negative Normal Negative [facility] [place] pH Urine 7.5 pH Units Normal 5.0-8.0 [facility] [place] Protein Urine Trace Normal Negative-Tr dorie [facility] [place] RBC Urine TNTC Abnormal 0-3/HPF [facility] [place] Specific [place] Urine 1.011 Normal 1.010-1.025 [facility] [place] Urobilinogen Urine Normal Normal Normal [facility] [place] WBC Urine 5-15 Abnormal 0-3/HPF [facility] [place] Appearance (U) Turbid Abnormal Clear [facility] Bacteria LM Ql (Urine sed) Few None-Few [facility] Bilirubin Ql (U) Negative Negative [facility] Color (U) Light Yellow Yellow [facility] Glucose Test strip (U) [Mass/Vol] Normal Normal [facility] Hyaline casts (Urine sed) [#/Area] Few Abnormal None Seen /LPF [facility] Interpretation and review of laboratory results Abnormal [facility] Ketones (U) [Mass/Vol] Negative Negative [facility] Leukocyte esterase Test strip Ql (U) Negative Negative [facility] Mucus Ql (Urine sed) Few None-Few [facility] Nitrite Ql (U) Negative Negative [facility] pH (U) 7.5 [pH] [facility] Protein (U) [Mass/Vol] Trace Negat pollo-Tr dorie mg/dL [facility] RBC (U) [#/Vol] Moderate Abnormal Negative [facility] RBC LM.HPF (Urine sed) [#/Area] TNTC Abnormal 0-3/HPF /HPF [facility] Specific gravity (U) [Rel density] 1.011 1.010 - 1.025 [facility] Urobilinogen (U) [Mass/Vol] Normal Normal [facility] WBC LM.HPF (Urine sed) [#/Area] 5-15 Abnormal 0-3/HPF /HPF [facility] GLUCOSE POCon 04-26-2022 Glucose [Mass/Vol] 155 mg/dL High 70-99 [facility] Glucose [Mass/Vol] 149 mg/dL High 70-99 [facility] Glucose [Mass/Vol] 155 mg/dL High 70 - 99 mg/dL [facility] Interpretation and review of laboratory results Abnormal [facility] Glucose [Mass/Vol] 149 mg/dL High 70 - 99 mg/dL [facility] Interpretation and review of laboratory results Abnormal [facility] SURG PATH REQUESTon 04-26-19 Case Report [facility] [place] Comment on above: Result Comment: Surg ical Pathology Report Case: [id number] Authorizing Provider: Neno Domínguez MD Collected: 04/26/2022 09:59 AM Ordering Location: [facility] Received: 04/26/2022 04:52 PM Pathologist: Roland Fischer MD Specimen: TISSUE, Bladder tumor Clinical History Clinical Information : Bladder cancer, hypertension, aortic stenosis, COPD, heartburn, carpal tunnel syndrome, degenerative arthritis of cervical spine, migraine with aura, hearing loss sensory, bilateral, constipation, dependent edema, osteoarthritis, GERD, benign prostatic hyperplasia, hyperplasia of prostate with lower urinary tract symptoms, chronic sinusitis, vitamin D deficiency, neuropathy, peripheral, depression with anxiety, stroke, dysphagia, amaurosis fugax of right eye, colon polyp, SANJU on CPAP, TIA, diabetes mellitus, type 2, and HLD. [facility] [place] Gross Description [facility] Comment on above: Result Comment: The specimen is received in one properly labeled container with the patient's name and accession number. A. 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 TE 1 Lab Use Only: JobID [id number] Grosser for this case was: Santana Riggs For Immediate Release to Patient's MyChart? No Microscopic Description A microscopic examination was performed. [facility] [place] Pathologic Diagnosis [facility] Comment on above: Result Comment: Keesha Arreola ladder, tumor, transurethral resection: Non-invasive papillary urothelial carcinoma, low-grade No definitive evidence of lamina propria invasion identified Muscularis propria is absent Note: Select slides were reviewed by Dr. Cynthia Young. Basic Metabolic Panel (COPC) on 04-23-2022 Anion gap [Moles/Vol] 9 mmol/L Normal 5-15 [facility] Comment on above: Order Comment: Items in this order include: Basic Metabolic Panel, HgbA1C Testing Performed By: [facility] [address] [place] [id number] CLIA#:[id number] Dr. Hannah Richard, Corn Husk Baler Performed By: #### C 45, C406 #### [facility] [address] [place] [address] [address] [place] [address] B/C Ratio 11.7 Ratio Normal 10.0-28.6 [facility] Comment on above: Order Comment: Items in this order include: Basic Metabolic Panel, HgbA1C Testing Performed By: [facility] [address] [place] [address] CLIA#:[id number] [address] Hannah Richard, Corn Husk Baler Performed By: #### C 45, C406 #### [facility] [address] [place] [address] Calcium [Mass/Vol] 9.6 mg/dL Normal 8.3-10.6 [facility] Comment on above: Order Comment: Items in this order include: Basic Metabolic Panel, HgbA1C Testing Performed By: [facility] [address] [place] [address] CLIA#:[id number] [address] Hannah Richard, Corn Husk Baler Performed By: #### C 45, C406 #### [facility] [address] [place] [address] Chloride [Moles/Vol] 104 mmol/L Normal 98-107 [facility] Comment on above: Order Comment: Items in this order include: Basic Metabolic Panel, HgbA1C Testing Performed By: [facility] [address] [place] [address] CLIA#:[id number] [address] Hannah Richard, Corn Husk Baler Performed By: #### C 45, C406 #### [facility] [address] [place] [address] CO2 [Moles/Vol] 27 mmol/L Normal 20-31 [facility] Comment on above: Order Comment: Items in this order include: Basic Metabolic Panel, HgbA1C Testing Performed By: [facility] [address] [place] [address] CLIA#:[id number] [address] Hannah Richard, Corn Husk Baler Performed By: #### C 45, C406 #### [facility] [address] [place] [address] Creatinine [Mass/Vol] 1.2 mg/dL Normal 0.7-1.3 [facility] Comment on above: Order Comment: Items in this order include: Basic Metabolic Panel, HgbA1C Testing Performed By: [facility] [address] [place] [address] CLIA#:[id number] [address] Hannah Richard, Corn Husk Baler Performed By: #### C 45, C406 #### [facility] [address] [place] [address] GFRCKD 61 mL/min per 1.73 Normal >60 [facility] Comment on above: Order Comment: Items in this order include: Basic Metabolic Panel, HgbA1C Testing Performed By: [facility] [address] [place] [address] CLIA#:[id number] Dr. Hannah Richard, Corn Husk Baler Result Comment: The GFR estimate is not adjusted for race. Performed By: #### C 45, C406 #### [facility] [address] [place] [address] Glucose [Mass/Vol] 210 mg/dL High 74-106 [facility] Comment on above: Order Comment: Items in this order include: Basic Metabolic Panel, HgbA1C Testing Performed By: [facility] [address] [place] [address] CLIA#:[id number] [address] Hannah Richard, Corn Husk Baler Performed By: #### C 45, C406 #### [facility] [address] [place] [address] Potassium [Moles/Vol] 4.0 mmol/L Normal 3.5-5.1 [facility] Comment on above: Order Comment: Items in this order include: Basic Metabolic Panel, HgbA1C Testing Performed By: [facility] [address] [place] [address] CLIA#:[id number] [address] Hannah Richard, Corn Husk Baler Performed By: #### C 45, C406 #### [facility] [address] [place] [address] Sodium [Moles/Vol] 140 mmol/L Normal 136-145 [facility] Comment on above: Order Comment: Items in this order include: Basic Metabolic Panel, HgbA1C Testing Performed By: [facility] [address] [place] [address] CLIA#:[id number] [address] Hannah Richard, Corn Husk Baler Performed By: #### C 45, C406 #### [facility] [address] [place] [address] Urea nitrogen [Mass/Vol] 14 mg/dL Normal 9-23 [facility] Comment on above: Order Comment: Items in this order include: Basic Metabolic Panel, HgbA1C Testing Performed By: [facility] [address] [place] [address] CLIA#:[id number] [address] Hannah Richard, Corn Husk Baler Performed By: #### C 45, [id number] #### [facility] [address] [place] [address] HgbA1C (COPC)on 04-23-2022 HbA1c (Bld) [Mass fraction] 6.1 % High <5.7 [facility] Comment on above: Order Comment: Items in this order include: Basic Metabolic Panel, HgbA1C Testing Performed By: [facility] [address] [place] [address] CLIA#:[id number] Dr[address] Hannah Richard, Corn [employer] Baler Result Comment: Refe rence Interval: Normal: below 5.7%. Prediabetes: 5.7% to 6.4%. Diabetes: 6.5% or above. Performed By: #### C 45, C406 #### [facility] [address] [place] [address] Urine, Random, Albumin/Crea (COPC)on 04-23-2022 Albumin DL <= 20 mg/L (U) [Mass/Vol] 0.8 mg/dL Normal [facility] Comment on above: Order Comment: Items in this order include: Urine, Random, Albumin/Crea Testing Performed By: [facility] [address] [place] [address] CLIA#:[id number] [address] Hannah Richard, [employer] Baler Performed By: #### C 80 #### [facility] [address] [place] [address] Creatinine (U) [Mass/Vol] 118.7 mg/dL Normal 22.0-328.0 [facility] Comment on above: Order Comment: Items in this order include: Urine, Random, Albumin/Crea Testing Performed By: [facility] [address] [place] [address] CLIA#:[id number] [address] Hannah Richard, [place] [employer] Baler Performed By: #### C 80 #### [facility] [address] [place] [address] Urine Microalb/ Creat Ratio 6.7 mcg/mg creat Normal 0.0-29.9 [facility] Comment on above: Order Comment: Items in this order include: Urine, Random, Albumin/Crea Testing Performed By: [facility] [address] [place] [address] CLIA#:[id number] Dr. Hannah Richard, [place] Baler Result Comment: The ADA (Diabetes Care 26:s94-s98,2003) defines abnormalities in albumin excretion as follows: Category Result (mcg/mg creatinine) Normal <30 Microalbuminuria 30-299 Clinical Albuminuria > or =300 The ADA recommends that at least two of three specimens collected within a 3-6 month period be abnormal before considering a patient to be within a diagnostics category. Performed By: #### C 80 #### [facility] [address] [place] [address] PT/INR POINT OF CAREon 04-19 POC INR 2.8 Normal [facility] Comment on above: Result Comment: For patients on oral anticoagulants, the therapeutic INR reference range is 2.0 to 3.5 POC PT 33.8 seconds High 9.4-12.1 [facility] PT/INR POINT OF CAREon 04-10 POC INR 2.6 Normal [facility] Comment on above: Result Comment: For patients on oral anticoagulants, the therapeutic INR reference range is 2.0 to 3.5 POC PT 31.0 seconds High 9.4-12.1 [facility] CYSTOSCOPYon 04-05-2022 Neno Domínguez MD 04/05/2022 12:10 PM CYSTOSCOPY Date/Time: 04/05/2022 11:00 AM Performed by: Neno Domínguez MD Authorized by: Neno Domínguez MD The attending physician was present for the entire procedure. Pre-Procedure: Indications: urinary hesitancy and bladder cancer Detailed information of all possible complications and side effects were discussed with the patient, these include but not only; UTI, sepsis, hematuria, incontinence, urethral injury and cardiovascular complications. Informed consent was obtained. Does this procedure require a Coral Protocol? Yes. Coral Protocol is required. The patient was given one dose of antibiotics. Urine was collected for testing. Procedure: Procedure performed: cystoscopy The patient was placed supine with all pressure points well padded. Patient was prepped and draped in the usual sterile fashion with Betadine. 10 mL of lidocaine 2% topical gel was inserted into urethra for local anesthesia. A penile clamp was not applied. The flexible cystoscope was lubricated and placed into the urethral tract under direct visualization. A 360 survey of the bladder was performed. The cystoscope was reflected and the bladder neck and the ureteral orifices were inspected. The findings are detailed below. The cystoscope was removed following any additional procedures documented below. Findings: The urinary meatus appeared normal. There was not a prominent median lobe. The lateral lobes were obstructive in appearance. Tumors observed (dome/anterior wall and right posterior lower wall). No bladder fistula present. No foreign bodies observed. No stones found. No trabeculations were found. Both ureteral orifices were normal in size, shape and position with efflux of clear urine. The urethra was inspected. No foreign body(s) present in urethra. No urethral diverticulum observed. No urethral stricture found. Post Procedure: Patient tolerated procedure with no immediate complications EBL: no blood loss Procedure Comments: Patient will be scheduled for TURBT in the OR [facility] Radiology Study observation (narrative) [facility] PT/INR POINT OF CAREon 04-03 POC INR 2.3 Normal [facility] Comment on above: Result Comment: For patients on oral anticoagulants, the therapeutic INR reference range is 2.0 to 3.5 POC PT 27.7 seconds High 9.4-12.1 [facility] PT/INR POINT OF CAREon 03-27 POC INR 3.1 Normal [facility] Comment on above: Result Comment: For patients on oral anticoagulants, the therapeutic INR reference range is 2.0 to 3.5 POC PT 37.7 seconds High 9.4-12.1 [facility] PT/INR POINT OF CAREon 03-20 POC INR 1.8 Normal [facility] Comment on above: Result Comment: For patients on oral anticoagulants, the therapeutic INR reference range is 2.0 to 3.5 POC PT 21.4 seconds High 9.4-12.1 [facility] [address] [phone] [facility] Signed PRELIMINARY DRAFT REPORT UNTIL ELECTRONICALLY SIGNED PATIENT: Mick Cottrell MR#: [id number] : 1940 AGE/SEX: 81 / M ADMITTED: 01/16/22 OUTSIDE LOCN: LOCATION: [facility] ATTENDING: Grace Gtz MD cc: ; Anti-Coagulation History Referring Physician: Grace Gtz Supervising Clinician: Jose Jordan Medical history: cancer, COPD, CVA, diabetes, GERD, hyperlipidemia, hypertension Additional medical history PMH: right lung drainage - pt reports 1800cc of drainage from "center sac" of lung Male Surgical History: cataract, herniorrhaphy, sinus surgery, tonsillectomy Female Surgical History: heart valve replacement (Aortic valve replacement) Additional surgical history PMH: lung drained, tonsillectomy, nasal surgery, loop recorder removal. heart valve replacement - cow valve Psychiatric history: depression Smoking Status: Former smoker Smokeless Tobacco Status: No Alcohol use PMH: none Drug use: none Occupational status: retired F[employer] INR: 2.3 INR Range: 2-3 (CVA) Specimen Processed (Date): 01/16/22 Specimen Processed (Time): 10:27 Upcoming procedure: No Patient Instructions: Keep taking the same amount of Coumadin as you have been taking. Have a great week and I'll see you soon. IT IS EXTREMELY IMPORTANT THAT YOU NOTIFY OUR OFFICE OF ALL MEDICATION CHANGES ON THE DAY THAT THEY OCCUR. IF THE CHANGE SHOULD OCCUR AFTER HOURS OR ON THE WEEKEND, SELECT OPTION #2 AND YOUR CALL WILL BE TRANSFERRED TO THE INPATIENT PHARMACIST FOR ASSISTANCE. Also make us aware of any illnesses that give you diarrhea or vomiting. Please do not arrive more than 10 minutes prior to your scheduled appointment. Cancellation notice must be provided at least 24 hours in advance. Thank you!! If you are experiencing a bleeding emergency and the voicemail is not picking up, please contact our toll free number at: . Diandra Arechiga PharmD. 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) Hypokalemia (Acute) COPD (chronic obstructive pulmonary disease) (Chronic) DVT prophylaxis (Acute) CVA (cerebral vascular accident) (Chronic) COVID-19 (Acute) COPD exacerbation (Acute) Acute respiratory failure with hypoxia (Acute) HTN (hypertension) (Chronic) BPH (benign prostatic hyperplasia) (Chronic) Dehydration (Acute) Sepsis (Acute) Acute metabolic encephalopathy (Acute) Atrial fibrillation with RVR (Acute) Atrial fibrillation (Chronic) Systolic heart failure (Chronic) GERD (gastroesophageal reflux disease) (Chronic) Hemoptysis (Acute) Multifocal pneumonia (Acute) Pneumonia due to COVID-19 virus (Acute) DVT prophylaxis (Acute) Heart failure with preserved ejection fraction (Chronic) CVA (cerebral vascular accident) (Chronic) Secondary bacterial pneumonia (Acute) Paroxysmal atrial fibrillation (Chronic) Physical deconditioning (Acute) Adjustment disorder with mixed anxiety and depressed mood (Acute) Constipation (Acute) Shortness of breath (Acute) Pulmonary embolism (Acute) Palpitations (Acute) CAD (coronary artery disease) (Acute) Hypomagnesemia (Acute) Elevated troponin (Acute) Loculated pleural effusion (Chronic) Obstructive uropathy (Acute) Ureteral stone with hydronephrosis (Acute) Hypertensive urgency (Acute) Hematuria (Acute) Renal insufficiency (Acute) MARYLOU (acute kidney injury) (Acute) Pharmacist Visit Note: Mick Cottrell was questioned extensively about any missed dosages, any exercise or lifestyle changes, new medication regimens, any changes in diet or increased/decreased vitamin K foods, any bleeding issues, any illnesses including any nausea, vomiting or diarrhea as well as any upcoming surgeries or procedures. Patient denies any further changes. Total time spent: 15 minutes Diandra Arechiga PharmD. - Dosing Schedule Changes made to dosing schedule?: No Warfarin Strength: 4mg Daily Dose (Sun): 4 # of Tablets (Sun): 1 Daily Dose (Mon): 4 # of Tablets (Mon): 1 Daily Dose (Tue): 4 # of Tablets (Tue): 1 Daily Dose (Wed): 6 # of Tablets (Wed): 1.5 Daily Dose (Kenna): 4 # of Tablets (Kenna): 1 Daily Dose (Fri): 4 # of Tablets (Fri): 1 Daily Dose (Sat): 6 # of Tablets (Sat): 1.5 Total Doses (mg): 32 Follow up visit requested: 1 week Documented By: Diandra Arechiga Signed By: 01/16/22 1028 DD/ 1027 Initialized By: [id number] [facility] Capillary whole blood prothr ombin time (PT)on 01-16-2022 PT Coag ([facility]) [Time] 27.5 seconds High 9.4-12.1 [facility] Work Phone: POC PT and INR (office)on 01-16-2022 POC INR Result (office) 2.3 [facility] Comment on above: Result Comment: For patients on oral anticoagulants, the therapeutic INR reference range is 2.0 to 3.5 Performed By: #### L IP, HEPATIC, BMP, ROSSY #### [facility] [address] [place] [phone] POC PT Result (office) 27.5 seconds High 9.4-12.1 [facility] Comment on above: Performed By: #### L IP, HEPATIC, BMP, ROSSY #### [facility] [address] [place] [phone] Whole blood INR measuremento n 01-16-2022 INR Coag (Bld) [Relative time] 2.3 {INR} [facility] Work Phone: Comment on above: For patients on oral anticoagulants, the therapeutic INR reference range is 2.0 to 3.5 [facility] [address] [phone] [facility] Signed PRELIMINARY DRAFT REPORT UNTIL ELECTRONICALLY SIGNED PATIENT: Mick Cottrell MR#: [id number] : 1940 AGE/SEX: 81 / M ADMITTED: 01/09/22 OUTSIDE LOCN: LOCATION: [facility] ATTENDING: Grace Gtz MD cc: ; Anti-Coagulation History Referring Physician: Grace Gtz Supervising Clinician: Jose Jordan Medical history: cancer, COPD, CVA, diabetes, GERD, hyperlipidemia, hypertension Additional medical history PMH: right lung drainage - pt reports 1800cc of drainage from "center sac" of lung Male Surgical History: cataract, herniorrhaphy, sinus surgery, tonsillectomy Female Surgical History: heart valve replacement (Aortic valve replacement) Additional surgical history PMH: lung drained, tonsillectomy, nasal surgery, loop recorder removal. heart valve replacement - cow valve Psychiatric history: depression Smoking Status: Former smoker Smokeless Tobacco Status: No Alcohol use PMH: none Drug use: none Occupational status: retired Finger Stick INR: 1.8 Is Bridging Therapy Indicated: No INR Range: 2-3 (CVA) Specimen Processed (Date): 01/09/22 Specimen Processed (Time): 10:47 Upcoming procedure: No Patient Instructions: Keep taking the same amount of Coumadin as you have been taking. Have a great week and I'll see you soon. IT IS EXTREMELY IMPORTANT THAT YOU NOTIFY OUR OFFICE OF ALL MEDICATION CHANGES ON THE DAY THAT THEY OCCUR. IF THE CHANGE SHOULD OCCUR AFTER HOURS OR ON THE WEEKEND, SELECT OPTION #2 AND YOUR CALL WILL BE TRANSFERRED TO THE INPATIENT PHARMACIST FOR ASSISTANCE. Also make us aware of any illnesses that give you diarrhea or vomiting. Please do not arrive more than 10 minutes prior to your scheduled appointment. Cancellation notice must be provided at least 24 hours in advance. Thank you!! If you are experiencing a bleeding emergency and the voicemail is not picking up, please contact our toll free number at: . Diandra Arechiga PharmD. 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) Hypokalemia (Acute) COPD (chronic obstructive pulmonary disease) (Chronic) DVT prophylaxis (Acute) CVA (cerebral vascular accident) (Chronic) COVID-19 (Acute) COPD exacerbation (Acute) Acute respiratory failure with hypoxia (Acute) HTN (hypertension) (Chronic) BPH (benign prostatic hyperplasia) (Chronic) Dehydration (Acute) Sepsis (Acute) Acute metabolic encephalopathy (Acute) Atrial fibrillation with RVR (Acute) Atrial fibrillation (Chronic) Systolic heart failure (Chronic) GERD (gastroesophageal reflux disease) (Chronic) Hemoptysis (Acute) Multifocal pneumonia (Acute) Pneumonia due to COVID-19 virus (Acute) DVT prophylaxis (Acute) Heart failure with preserved ejection fraction (Chronic) CVA (cerebral vascular accident) (Chronic) Secondary bacterial pneumonia (Acute) Paroxysmal atrial fibrillation (Chronic) Physical deconditioning (Acute) Adjustment disorder with mixed anxiety and depressed mood (Acute) Constipation (Acute) Shortness of breath (Acute) Pulmonary embolism (Acute) Palpitations (Acute) CAD (coronary artery disease) (Acute) Hypomagnesemia (Acute) Elevated troponin (Acute) Loculated pleural effusion (Chronic) Obstructive uropathy (Acute) Ureteral stone with hydronephrosis (Acute) Hypertensive urgency (Acute) Hematuria (Acute) Renal insufficiency (Acute) MARYLOU (acute kidney injury) (Acute) Pharmacist Visit Note: Mick Cottrell was questioned extensively about any missed dosages, any exercise or lifestyle changes, new medication regimens, any changes in diet or increased/decreased vitamin K foods, any bleeding issues, any illnesses including any nausea, vomiting or diarrhea as well as any upcoming surgeries or procedures. Patient denies any further changes. Total time spent: 15 minutes Diandra Arechiga PharmD. - Dosing Schedule Changes made to dosing schedule?: Yes Warfarin Strength: 4mg Daily Dose (Sun): 4 # of Tablets (Sun): 1 Daily Dose (Mon): 4 # of Tablets (Mon): 1 Daily Dose (Tue): 4 # of Tablets (Tue): 1 Daily Dose (Wed): 6 # of Tablets (Wed): 1.5 Daily Dose (Kenna): 4 # of Tablets (Kenna): 1 Daily Dose (Fri): 4 # of Tablets (Fri): 1 Daily Dose (Sat): 6 # of Tablets (Sat): 1.5 Total Doses (mg): 32 Reason for dosing changes: Low Follow up visit requested: 1 week Documented By: Diandra Arechiga Signed By: 01/09/22 1048 DD/ 1046 Initialized By: [id number] [facility] POC PT and INR (office)on 01-09-2022 POC INR Result (office) 1.8 [facility] Comment on above: Result Comment: For patients on oral anticoagulants, the therapeutic INR reference range is 2.0 to 3.5 Performed By: #### L IP, HEPATIC, BMP, ROSSY #### [facility] [address] [place], [place] [phone] POC PT Result (office) 22.2 seconds High 9.4-12.1 [facility] Comment on above: Performed By: #### L IP, HEPATIC, BMP, ROSSY #### [facility] [address] [place] [id number] [facility] [address] [phone] [facility] Signed PRELIMINARY DRAFT REPORT UNTIL ELECTRONICALLY SIGNED PATIENT: Mick Cottrell MR#: [id number] : 1940 AGE/SEX: 81 / M ADMITTED: 01/02/22 OUTSIDE LOCN: LOCATION: [facility] ATTENDING: Grace Gtz MD cc: ; Anti-Coagulation History Referring Physician: Grace Gtz Supervising Clinician: Jose Jordan Medical history: cancer, COPD, CVA, diabetes, GERD, hyperlipidemia, hypertension Additional medical history PMH: right lung drainage - pt reports 1800cc of drainage from "center sac" of lung Male Surgical History: cataract, herniorrhaphy, sinus surgery, tonsillectomy Female Surgical History: heart valve replacement (Aortic valve replacement) Additional surgical history PMH: lung drained, tonsillectomy, nasal surgery, loop recorder removal. heart valve replacement - cow valve Psychiatric history: depression Smoking Status: Former smoker Smokeless Tobacco Status: No Alcohol use PMH: none Drug use: none Occupational status: retired F[employer] INR: 1.9 Is Bridging Therapy Indicated: No INR Range: 2-3 (CVA) Specimen Processed (Date): 01/02/22 Specimen Processed (Time): 11:10 Upcoming procedure: No Patient Instructions: Keep taking the same amount of Coumadin as you have been taking. Have a great week and I'll see you soon. IT IS EXTREMELY IMPORTANT THAT YOU NOTIFY OUR OFFICE OF ALL MEDICATION CHANGES ON THE DAY THAT THEY OCCUR. IF THE CHANGE SHOULD OCCUR AFTER HOURS OR ON THE WEEKEND, SELECT OPTION #2 AND YOUR CALL WILL BE TRANSFERRED TO THE INPATIENT PHARMACIST FOR ASSISTANCE. Also make us aware of any illnesses that give you diarrhea or vomiting. Please do not arrive more than 10 minutes prior to your scheduled appointment. Cancellation notice must be provided at least 24 hours in advance. Thank you!! If you are experiencing a bleeding emergency and the voicemail is not picking up, please contact our toll free number at: . Diandra DillonD. 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) Hypokalemia (Acute) COPD (chronic obstructive pulmonary disease) (Chronic) DVT prophylaxis (Acute) CVA (cerebral vascular accident) (Chronic) COVID-19 (Acute) COPD exacerbation (Acute) Acute respiratory failure with hypoxia (Acute) HTN (hypertension) (Chronic) BPH (benign prostatic hyperplasia) (Chronic) Dehydration (Acute) Sepsis (Acute) Acute metabolic encephalopathy (Acute) Atrial fibrillation with RVR (Acute) Atrial fibrillation (Chronic) Systolic heart failure (Chronic) GERD (gastroesophageal reflux disease) (Chronic) Hemoptysis (Acute) Multifocal pneumonia (Acute) Pneumonia due to COVID-19 virus (Acute) DVT prophylaxis (Acute) Heart failure with preserved ejection fraction (Chronic) CVA (cerebral vascular accident) (Chronic) Secondary bacterial pneumonia (Acute) Paroxysmal atrial fibrillation (Chronic) Physical deconditioning (Acute) Adjustment disorder with mixed anxiety and depressed mood (Acute) Constipation (Acute) Shortness of breath (Acute) Pulmonary embolism (Acute) Palpitations (Acute) CAD (coronary artery disease) (Acute) Hypomagnesemia (Acute) Elevated troponin (Acute) Loculated pleural effusion (Chronic) Obstructive uropathy (Acute) Ureteral stone with hydronephrosis (Acute) Hypertensive urgency (Acute) Hematuria (Acute) Renal insufficiency (Acute) MARYLOU (acute kidney injury) (Acute) Pharmacist Visit Note: Mick Cottrell was questioned extensively about any missed dosages, any exercise or lifestyle changes, new medication regimens, any changes in diet or increased/decreased vitamin K foods, any bleeding issues, any illnesses including any nausea, vomiting or diarrhea as well as any upcoming surgeries or procedures. Patient denies any further changes. Total time spent: 15 minutes Diandra Arechiga PharmD. - Dosing Schedule Changes made to dosing schedule?: No Warfarin Strength: 4mg Daily Dose (Sun): 4 # of Tablets (Sun): 1 Daily Dose (Mon): 4 # of Tablets (Mon): 1 Daily Dose (Tue): 4 # of Tablets (Tue): 1 Daily Dose (Wed): 6 # of Tablets (Wed): 1.5 Daily Dose (Kenna): 4 # of Tablets (Kenna): 1 Daily Dose (Fri): 4 # of Tablets (Fri): 1 Daily Dose (Sat): 4 # of Tablets (Sat): 1 Total Doses (mg): 30 Documented By: Diandra Arechiga Signed By: 01/02/22 1111 DD/ 1110 Initialized By: [id number] [facility] POC PT and INR (office)on 01-02-2022 POC INR Result (office) 1.9 [facility] Comment on above: Result Comment: For patients on oral anticoagulants, the therapeutic INR reference range is 2.0 to 3.5 Performed By: #### L IP, HEPATIC, BMP, ROSSY #### [facility] [address] [place] [address] POC PT Result (DrClarenceoffice) 23.0 seconds High 9.4-12.1 [facility] Comment on above: Performed By: #### L IP, HEPATIC, BMP, ROSSY #### [facility] [address] [place] [address] [phone] (63 POC PT and INR (DrClarenceoffice)on 12-13-2021 POC INR Result (DrClarenceoffice) 2.5 Normal [facility] Comment on above: Result Comment: For patients on oral anticoagulants, the therapeutic INR reference range is 2.0 to 3.5 Performed By: #### B MP #### [facility] [address] [place] [address] [phone] (68 POC PT Result (DrClarenceoffice) 29.8 seconds High 9.4-12.1 [facility] Comment on above: Performed By: #### B MP #### [facility] [address] [place] [address] [phone] [facility] [address] [phone] [facility] Signed PRELIMINARY DRAFT REPORT UNTIL ELECTRONICALLY SIGNED PATIENT: Mick Cottrell MR#: [id number] : 1940 AGE/SEX: 81 / M ADMITTED: 12/12/21 OUTSIDE LOCN: LOCATION: [facility] ATTENDING: Grace Gtz MD cc: ; Anti-Coagulation History Referring Physician: Grace Gtz Supervising Clinician: Jose Jordan Medical history: cancer, COPD, CVA, diabetes, GERD, hyperlipidemia, hypertension Additional medical history PMH: right lung drainage - pt reports 1800cc of drainage from "center sac" of lung Male Surgical History: cataract, herniorrhaphy, sinus surgery, tonsillectomy Female Surgical History: heart valve replacement (Aortic valve replacement) Additional surgical history PMH: lung drained, tonsillectomy, nasal surgery, loop recorder removal. heart valve replacement - cow valve Psychiatric history: depression Smoking Status: Former smoker Smokeless Tobacco Status: No Alcohol use PMH: none Drug use: none Occupational status: retired F[employer] INR: 2.5 INR Range: 2-3 (CVA) Specimen Processed (Date): 12/12/21 Specimen Processed (Time): 10:49 Medication changes: no changes Missed doses: No Symptoms: none Upcoming procedure: No Patient Instructions: Keep taking the same amount of Coumadin as you have been taking. Have a great week and I'll see you soon. IT IS EXTREMELY IMPORTANT THAT YOU NOTIFY OUR OFFICE OF ALL MEDICATION CHANGES ON THE DAY THAT THEY OCCUR. IF THE CHANGE SHOULD OCCUR AFTER HOURS OR ON THE WEEKEND, SELECT OPTION #2 AND YOUR CALL WILL BE TRANSFERRED TO THE INPATIENT PHARMACIST FOR ASSISTANCE. Also make us aware of any illnesses that give you diarrhea or vomiting. Please do not arrive more than 10 minutes prior to your scheduled appointment. Cancellation notice must be provided at least 24 hours in advance. Thank you!! If you are experiencing a bleeding emergency and the voicemail is not picking up, please contact our toll free number at: . Tae Amaya PharmD. 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) Hypokalemia (Acute) COPD (chronic obstructive pulmonary disease) (Chronic) DVT prophylaxis (Acute) CVA (cerebral vascular accident) (Chronic) COVID-19 (Acute) COPD exacerbation (Acute) Acute respiratory failure with hypoxia (Acute) HTN (hypertension) (Chronic) BPH (benign prostatic hyperplasia) (Chronic) Dehydration (Acute) Sepsis (Acute) Acute metabolic encephalopathy (Acute) Atrial fibrillation with RVR (Acute) Atrial fibrillation (Chronic) Systolic heart failure (Chronic) GERD (gastroesophageal reflux disease) (Chronic) Hemoptysis (Acute) Multifocal pneumonia (Acute) Pneumonia due to COVID-19 virus (Acute) DVT prophylaxis (Acute) Heart failure with preserved ejection fraction (Chronic) CVA (cerebral vascular accident) (Chronic) Secondary bacterial pneumonia (Acute) Paroxysmal atrial fibrillation (Chronic) Physical deconditioning (Acute) Adjustment disorder with mixed anxiety and depressed mood (Acute) Constipation (Acute) Shortness of breath (Acute) Pulmonary embolism (Acute) Palpitations (Acute) CAD (coronary artery disease) (Acute) Hypomagnesemia (Acute) Elevated troponin (Acute) Loculated pleural effusion (Chronic) Obstructive uropathy (Acute) Ureteral stone with hydronephrosis (Acute) Hypertensive urgency (Acute) Hematuria (Acute) Renal insufficiency (Acute) MARYLOU (acute kidney injury) (Acute) Pharmacist Visit Note: Mick Cottrell was questioned extensively about any missed dosages, any exercise or lifestyle changes, new medication regimens, any changes in diet or increased/decreased vitamin K foods, any bleeding issues, any illnesses including any nausea, vomiting or diarrhea as well as any upcoming surgeries or procedures. Patient denies any further changes. Total time spent: 15 minutes Tae Amaya PharmD. - Dosing Schedule Changes made to dosing schedule?: No Warfarin Strength: 4mg Daily Dose (Sun): 4 # of Tablets (Sun): 1 Daily Dose (Mon): 4 # of Tablets (Mon): 1 Daily Dose (Tue): 4 # of Tablets (Tue): 1 Daily Dose (Wed): 6 # of Tablets (Wed): 1.5 Daily Dose (Kenna): 4 # of Tablets (Kenna): 1 Daily Dose (Fri): 4 # of Tablets (Fri): 1 Daily Dose (Sat): 4 # of Tablets (Sat): 1 Total Doses (mg): 30 Follow up visit requested: 3 weeks Documented By: Tae Amaya Signed By: 12/12/21 1050 12/12/21 1053 12/12/21 DD/ 1048 Initialized By: [id number] Normal [facility] Basic Metabolic Panelon 11-23 Anion gap [Moles/Vol] 10 mmol/L Normal 5-15 [facility] Comment on above: Order Comment: Items in this order include: Basic Metabolic Panel, Vit D 25 [place] (Total), CBC with differential, HgbA1C, Testing Performed By: [facility] [address] [place] [address] CLIA#:[id number] Dr[address] Hannah Richard, Corn Husk Baler Performed By: #### C 215, C406, C3763, C45 #### [facility] [address] [place] [address] B/C Ratio 13.1 Ratio Normal 10.0-28.6 [facility] Comment on above: Order Comment: Items in this order include: Basic Metabolic Panel, Vit D 25 [place] (Total), CBC with differential, HgbA1C, Testing Performed By: [facility] [address] [place] [address] CLIA#:[id number] [address] Hannah Richard, Corn Husk Baler Performed By: #### C 215, C406, C3763, C45 #### [facility] [address] [place] [address] Calcium [Mass/Vol] 9.1 mg/dL Normal 8.3-10.6 [facility] Comment on above: Order Comment: Items in this order include: Basic Metabolic Panel, Vit D 25 [place] (Total), CBC with differential, HgbA1C, Testing Performed By: [facility] [address] [place] [address] CLIA#:[id number] [address] Hannah Richard, Corn Husk Baler Performed By: #### C 215, C406, C3763, C45 #### [facility] [address] [place] [address] Chloride [Moles/Vol] 105 mmol/L Normal 98-107 [facility] Comment on above: Order Comment: Items in this order include: Basic Metabolic Panel, Vit D 25 [place] (Total), CBC with differential, HgbA1C, Testing Performed By: [facility] [address] [place] [address] CLIA#:[id number] [address] Hannah Richard, Corn Husk Baler Performed By: #### C 215, C406, C3763, C45 #### [facility] [address] [place] [address] CO2 [Moles/Vol] 27 mmol/L Normal 20-31 [facility] Comment on above: Order Comment: Items in this order include: Basic Metabolic Panel, Vit D 25 [place] (Total), CBC with differential, HgbA1C, Testing Performed By: [facility] [address] [place] [address] CLIA#:[id number] Dr. Hannah Richard, Corn Husk Baler Performed By: #### C 215, C406, C3763, C45 #### [facility]. [address] [place] [address] Creatinine [Mass/Vol] 1.3 mg/dL Normal 0.7-1.3 [facility] Comment on above: Order Comment: Items in this order include: Basic Metabolic Panel, Vit D 25 [place] (Total), CBC with differential, HgbA1C, Testing Performed By: [facility] [address] [place] [address] CLIA#:[id number] [address] Hannah Richard, Corn Husk Baler Performed By: #### C 215, C406, C3763, C45 #### [facility] [facility] [place] [address] GFR 53 mL/min per 1.73 Low >60 [facility] Comment on above: Order Comment: Items in this order include: Basic Metabolic Panel, Vit D 25 [place] (Total), CBC with differential, HgbA1C, Testing Performed By: [facility] [address] [place] [address] CLIA#:[id number] [address] Hannah Richard, Corn Husk Baler Result Comment: The GFR estimate is not adjusted for race. If the patient's race is -Surinamese, the GFR estimate must be multiplied by a factor of 1.21. Performed By: #### C 215, C406, C3763, C45 #### [facility] [address] [place] [address] Glucose [Mass/Vol] 169 mg/dL High 74-106 [facility] Comment on above: Order Comment: Items in this order include: Basic Metabolic Panel, Vit D 25 [place] (Total), CBC with differential, HgbA1C, Testing Performed By: [facility] [address] [place] [address] CLIA#:[id number] [address] Hannah Richard, Corn Husk Baler Performed By: #### C 215, C406, C3763, C45 #### [facility] [address] [place] [address] Potassium [Moles/Vol] 4.5 mmol/L Normal 3.5-5.1 [facility] Comment on above: Order Comment: Items in this order include: Basic Metabolic Panel, Vit D 25 [place] (Total), CBC with differential, HgbA1C, Testing Performed By: [facility] [address] [place] [address] CLIA#:[id number] [address] Hannah Richard, Corn Husk Baler Performed By: #### C 215, C406, C3763, C45 #### [facility] [place] [address] Sodium [Moles/Vol] 142 mmol/L Normal 136-145 [facility] Comment on above: Order Comment: Items in this order include: Basic Metabolic Panel, Vit D 25 [place] (Total), CBC with differential, HgbA1C, Testing Performed By: [facility] [address] [place] [address] CLIA#:[id number] [address] Hannah Richard, Corn Husk Baler Performed By: #### C 215, C406, C3763, C45 #### [facility] [place] [address] Urea nitrogen [Mass/Vol] 17 mg/dL Normal 9-23 [facility] Comment on above: Order Comment: Items in this order include: Basic Metabolic Panel, Vit D 25 [place] (Total), CBC with differential, HgbA1C, Testing Performed By: [facility] [address] [place] [address] CLIA#:[id number] [address] Hannah Richard, Corn Husk Baler Performed By: #### C 215, C406, C3763, C45 #### [facility] [address] [place] [address] CBC with differentialon 11-23 BASO # 0.0 K CUMM Normal 0.0-0.2 [facility] Comment on above: Order Comment: Items in this order include: Basic Metabolic Panel, Vit D 25 [place] (Total), CBC with differential, HgbA1C, Testing Performed By: [facility] [address] [place] [address] CLIA#:[id number] [address] Hannah Richard, Corn Husk Baler Performed By: #### C 215, C406, C3763, C45 #### [facility] [address] [place] [address] Basophils/100 WBC (Bld) 0.5 % Normal 0.0-3.0 [facility] Comment on above: Order Comment: Items in this order include: Basic Metabolic Panel, Vit D 25 [place] (Total), CBC with differential, HgbA1C, Testing Performed By: [facility] [address] [place] [address] CLIA#:[id number] [address] Hannah Richard, Corn Husk Baler Performed By: #### C 215, C406, C3763, C45 #### [facility] [address] [place] [address] EOS # 0.3 K CUMM Normal 0.0-0.4 [facility] Comment on above: Order Comment: Items in this order include: Basic Metabolic Panel, Vit D 25 [place] (Total), CBC with differential, HgbA1C, Testing Performed By: [facility] [address] [place] [address] CLIA#:[id number] Dr[address] Hannah Richard, Corn Husk Baler Performed By: #### C 215, C406, C3763, C45 #### [facility] [address] [place] [address] Eosinophils/100 WBC (Bld) 4.0 % Normal 0.0-7.0 [facility] Comment on above: Order Comment: Items in this order include: Basic Metabolic Panel, Vit D 25 [place] (Total), CBC with differential, HgbA1C, Testing Performed By: [facility] [address] [place] [address] CLIA#:[id number] Dr. Hannah Richard, Corn Husk Baler Performed By: #### C 215, C406, C3763, C45 #### [facility] [address] [place] [address] Erythrocyte distribution width (RBC) [Ratio] 14.8 % Normal 11.5-15.5 [facility] Comment on above: Order Comment: Items in this order include: Basic Metabolic Panel, Vit D 25 [place] (Total), CBC with differential, HgbA1C, Testing Performed By: [facility] [address] [place] [address] CLIA#:[id number] [address] Hannah Richard, Corn Husk Baler Performed By: #### C 215, C406, C3763, C45 #### [facility] [address] [place] [address] Hematocrit (Bld) [Volume fraction] 45.6 % Normal 42.0-52.0 [facility] Comment on above: Order Comment: Items in this order include: Basic Metabolic Panel, Vit D 25 [place] (Total), CBC with differential, HgbA1C, Testing Performed By: [facility] [address] [place] [address] CLIA#:[id number] Dr[address] Hannah Richard, Corn Husk Baler Performed By: #### C 215, C406, C3763, C45 #### [facility] [address] [place] [address] Hemoglobin (Bld) [Mass/Vol] 14.6 g/dL Normal 13.5-18.0 [facility] Comment on above: Order Comment: Items in this order include: Basic Metabolic Panel, Vit D 25 [place] (Total), CBC with differential, HgbA1C, Testing Performed By: [facility] [address] [place] [address] CLIA#:[id number] Dr. Hannah Richard, Corn Husk Baler Performed By: #### C 215, C406, C3763, C45 #### [facility] [address] [place] [address] ImmGrn # 0.0 K CUMM Normal 0.0-0.3 [facility] Comment on above: Order Comment: Items in this order include: Basic Metabolic Panel, Vit D 25 [place] (Total), CBC with differential, HgbA1C, Testing Performed By: [facility] [address] [place] [address] CLIA#:[id number] Dr. Hannah Richard, Corn Husk Baler Performed By: #### C 215, C406, C3763, C45 #### [facility] [address] [place] [address] ImmGrn % 0.3 % Normal 0.0-3.0 [facility] Comment on above: Order Comment: Items in this order include: Basic Metabolic Panel, Vit D 25 [place] (Total), CBC with differential, HgbA1C, Testing Performed By: [facility] [address] [place] [address] CLIA#:[id number] [address] Hannah Richard, Corn Husk Baler Performed By: #### C 215, C406, C3763, C45 #### [facility] [address] [place] [address] LYMPH # 0.9 K CUMM Normal 0.7-4.5 [facility] Comment on above: Order Comment: Items in this order include: Basic Metabolic Panel, Vit D 25 [place] (Total), CBC with differential, HgbA1C, Testing Performed By: [facility] [address] [place] [address] CLIA#:[id number] Dr. Hannah Richard, Corn Husk Baler Performed By: #### C 215, C406, C3763, C45 #### [facility] [address] [place] [address] Lymphocytes/100 WBC (Bld) 15.0 % Normal 14.0-46.0 [facility] Comment on above: Order Comment: Items in this order include: Basic Metabolic Panel, Vit D 25 [place] (Total), CBC with differential, HgbA1C, Testing Performed By: [facility] [address] [place] [address] CLIA#:[id number] [address] Hannah Richard, Corn Husk Baler Performed By: #### C 215, C406, C3763, C45 #### [facility] [address] [place] [address] MCH (RBC) [Entitic mass] 31.5 pg High 27.0-31.0 [facility] Comment on above: Order Comment: Items in this order include: Basic Metabolic Panel, Vit D 25 [place] (Total), CBC with differential, HgbA1C, Testing Performed By: [facility] [address] [place] [address] CLIA#:[id number] [address] Hannah Richard, Corn Husk Baler Performed By: #### C 215, C406, C3763, C45 #### [facility]. [address] [place] [address] MCHC (RBC) [Mass/Vol] 32.0 g/dL Normal 32.0-36.0 [facility] Comment on above: Order Comment: Items in this order include: Basic Metabolic Panel, Vit D 25 [place] (Total), CBC with differential, HgbA1C, Testing Performed By: [facility] [address] [place] [address] CLIA#:[id number] [address] Hannah Richard, Corn Husk Baler Performed By: #### C 215, C406, C3763, C45 #### [facility] [place] [address] MCV (RBC) [Entitic vol] 98.5 fL Normal 78.0-100.0 [facility] Comment on above: Order Comment: Items in this order include: Basic Metabolic Panel, Vit D 25 [place] (Total), CBC with differential, HgbA1C, Testing Performed By: [facility] [address] [place] [address] CLIA#:[id number] Dr. Hannah Richard, Corn Husk Baler Performed By: #### C 215, C406, C3763, C45 #### [facility] [address] [place] [address] MONO # 0.5 K CUMM Normal 0.1-1.0 [facility] Comment on above: Order Comment: Items in this order include: Basic Metabolic Panel, Vit D 25 [place] (Total), CBC with differential, HgbA1C, Testing Performed By: [facility] [address] [place] [address] CLIA#:[id number] Dr. Hannah Richard, Corn Husk Baler Performed By: #### C 215, C406, C3763, C45 #### [facility] [address] [place] [address] Monocytes/100 WBC (Bld) 7.7 % Normal 4.0-13.0 [facility] Comment on above: Order Comment: Items in this order include: Basic Metabolic Panel, Vit D 25 [place] (Total), CBC with differential, HgbA1C, Testing Performed By: [facility] [address] [place] [address] CLIA#:[id number] Dr[address] Hannah Richard, Corn Husk Baler Performed By: #### C 215, C406, C3763, C45 #### [facility] [address] [place] [address] LEONA # 4.6 K CUMM Normal 1.8-7.8 [facility] Comment on above: Order Comment: Items in this order include: Basic Metabolic Panel, Vit D 25 [place] (Total), CBC with differential, HgbA1C, Testing Performed By: [facility] [address] [place] [address] CLIA#:[id number] Dr[address] Hannah Richard, Corn Husk Baler Performed By: #### C 215, C406, C3763, C45 #### [facility] [address] [place] [address] Neutrophils/100 WBC (Bld) 72.5 % Normal 40.0-74.0 [facility] Comment on above: Order Comment: Items in this order include: Basic Metabolic Panel, Vit D 25 [place] (Total), CBC with differential, HgbA1C, Testing Performed By: [facility] [address] [place] [address] CLIA#:[id number] [address] Hannah Richard, Corn Husk Baler Performed By: #### C 215, C406, C3763, C45 #### [facility] [address] [place] [address] Platelet mean volume (Bld) [Entitic vol] 12.6 fL Normal 8.9-12.6 [facility] Comment on above: Order Comment: Items in this order include: Basic Metabolic Panel, Vit D 25 [place] (Total), CBC with differential, HgbA1C, Testing Performed By: [facility] [address] [place] [address] CLIA#:[id number] [address] Hannah Richard, Corn Husk Baler Performed By: #### C 215, C406, C3763, C45 #### [facility] [address] [place] [address] PLT 146 K CUMM Normal 130-400 [facility] Comment on above: Order Comment: Items in this order include: Basic Metabolic Panel, Vit D 25 [place] (Total), CBC with differential, HgbA1C, Testing Performed By: [facility] [address] [place] [address] CLIA#:[id number] [address] Hannah Richard, Corn Husk Baler Performed By: #### C 215, C406, C3763, C45 #### [facility] [address] [place] [address] RBC 4.63 M CUMM Normal 4.20-5.80 [facility] Comment on above: Order Comment: Items in this order include: Basic Metabolic Panel, Vit D 25 [place] (Total), CBC with differential, HgbA1C, Testing Performed By: [facility] [address] [place] [address] CLIA#:[id number] [address] Hannah Richard, Corn Husk Baler Performed By: #### C 215, C406, C3763, C45 #### [facility] [address] [place] [address] WBC 6.3 K CUMM Normal 3.8-10.6 [facility] Comment on above: Order Comment: Items in this order include: Basic Metabolic Panel, Vit D 25 [place] (Total), CBC with differential, HgbA1C, Testing Performed By: [facility] [address] [place] [address] CLIA#:[id number] Dr. Hannah Richard, Corn Husk Baler Performed By: #### C 215, C406, C3763, C45 #### [facility] [address] [place] [address] [id number] 12-11-2021 HbA1c (Bld) [Mass fraction] 6.3 % High <5.7 [facility] Comment on above: Order Comment: Items in this order include: Basic Metabolic Panel, Vit D 25 [place] (Total), CBC with differential, HgbA1C, Testing Performed By: [facility] [address] [place] [address] CLIA#:[id number] Dr. Hannah Richard, Corn Husk Baler Result Comment: Refe rence Interval: Normal: below 5.7%. Prediabetes: 5.7% to 6.4%. Diabetes: 6.5% or above. Performed By: #### C 215, C406, C3763, C45 #### [facility] [address] [place] [address] Vit D 25 [place] (Total)on 2021 Vit D 25 [place] (Total) 26.7 ng/ml Low 30.0-100.0 [facility] Comment on above: Result Comment: Adul t Deficiency <20 ng/ml Insufficiency 20 - <30 ng/ml Sufficiency 30 - 100 ng/ml Toxicity >100 ng/ml Pediatric Deficiency <15 ng/ml Insufficiency 15 - <20 ng/ml Sufficiency 20-100 ng/ml Toxicity >100 ng/ml Performed By: #### C 215, C406, C3763, C45 #### [facility] [address] [place] [address] [facility] [address] [address] [facility] Signed PRELIMINARY DRAFT REPORT UNTIL ELECTRONICALLY SIGNED PATIENT: Mick Cottrell MR#: [id number] : 1940 AGE/SEX: 81 / M ADMITTED: 11/28/21 OUTSIDE LOCN: LOCATION: [facility] ATTENDING: Grace Gtz MD cc: ; Anti-Coagulation History Referring Physician: Grace Gtz Supervising Clinician: Jose Jordan Medical history: cancer, COPD, CVA, diabetes, GERD, hyperlipidemia, hypertension Additional medical history PMH: right lung drainage - pt reports 1800cc of drainage from "center sac" of lung Male Surgical History: cataract, herniorrhaphy, sinus surgery, tonsillectomy Female Surgical History: heart valve replacement (Aortic valve replacement) Additional surgical history PMH: lung drained, tonsillectomy, nasal surgery, loop recorder removal. heart valve replacement - cow valve Psychiatric history: depression Smoking Status: Former smoker Smokeless Tobacco Status: No Alcohol use PMH: none Drug use: none Occupational status: retired Finger Stick INR: 2.2 INR Range: 2-3 (CVA) Specimen Processed (Date): 11/28/21 Specimen Processed (Time): 11:08 Upcoming procedure: No Patient Instructions: Keep taking the same amount of Coumadin as you have been taking. Have a great week and I'll see you soon. IT IS EXTREMELY IMPORTANT THAT YOU NOTIFY OUR OFFICE OF ALL MEDICATION CHANGES ON THE DAY THAT THEY OCCUR. IF THE CHANGE SHOULD OCCUR AFTER HOURS OR ON THE WEEKEND, SELECT OPTION #2 AND YOUR CALL WILL BE TRANSFERRED TO THE INPATIENT PHARMACIST FOR ASSISTANCE. Also make us aware of any illnesses that give you diarrhea or vomiting. Please do not arrive more than 10 minutes prior to your scheduled appointment. Cancellation notice must be provided at least 24 hours in advance. Thank you!! If you are experiencing a bleeding emergency and the voicemail is not picking up, please contact our toll free number at: . Diandra Arechiga PharmD. 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) Hypokalemia (Acute) COPD (chronic obstructive pulmonary disease) (Chronic) DVT prophylaxis (Acute) CVA (cerebral vascular accident) (Chronic) COVID-19 (Acute) COPD exacerbation (Acute) Acute respiratory failure with hypoxia (Acute) HTN (hypertension) (Chronic) BPH (benign prostatic hyperplasia) (Chronic) Dehydration (Acute) Sepsis (Acute) Acute metabolic encephalopathy (Acute) Atrial fibrillation with RVR (Acute) Atrial fibrillation (Chronic) Systolic heart failure (Chronic) GERD (gastroesophageal reflux disease) (Chronic) Hemoptysis (Acute) Multifocal pneumonia (Acute) Pneumonia due to COVID-19 virus (Acute) DVT prophylaxis (Acute) Heart failure with preserved ejection fraction (Chronic) CVA (cerebral vascular accident) (Chronic) Secondary bacterial pneumonia (Acute) Paroxysmal atrial fibrillation (Chronic) Physical deconditioning (Acute) Adjustment disorder with mixed anxiety and depressed mood (Acute) Constipation (Acute) Shortness of breath (Acute) Pulmonary embolism (Acute) Palpitations (Acute) CAD (coronary artery disease) (Acute) Hypomagnesemia (Acute) Elevated troponin (Acute) Loculated pleural effusion (Chronic) Obstructive uropathy (Acute) Ureteral stone with hydronephrosis (Acute) Hypertensive urgency (Acute) Hematuria (Acute) Renal insufficiency (Acute) MARYLOU (acute kidney injury) (Acute) Pharmacist Visit Note: Mick Cottrell was questioned extensively about any missed dosages, any exercise or lifestyle changes, new medication regimens, any changes in diet or increased/decreased vitamin K foods, any bleeding issues, any illnesses including any nausea, vomiting or diarrhea as well as any upcoming surgeries or procedures. Patient denies any further changes. Total time spent: 15 minutes Diandra Arechiga PharmD. - Dosing Schedule Changes made to dosing schedule?: No Warfarin Strength: 4mg Daily Dose (Sun): 4 # of Tablets (Sun): 1 Daily Dose (Mon): 4 # of Tablets (Mon): 1 Daily Dose (Tue): 4 # of Tablets (Tue): 1 Daily Dose (Sat): 6 # of Tablets (Wed): 1.5 Daily Dose (Kenna): 4 # of Tablets (Kenna): 1 Daily Dose (Fri): 4 # of Tablets (Fri): 1 Daily Dose (Sat): 4 # of Tablets (Sat): 1 Total Doses (mg): 30 Follow up visit requested: 2 weeks Documented By: Diandra Arechiga Signed By: 11/28/21 1108 DD/ 110 Initialized By: [id number] [facility] POC PT and INR (Dr.office)on 11-28-2021 POC INR Result (Dr.office) 2.2 [facility] Comment on above: Result Comment: For patients on oral anticoagulants, the therapeutic INR reference range is 2.0 to 3.5 Performed By: #### P OCPTINR ####[facility] [address] [place] [id number] POC PT Result (Dr.office) 26.5 seconds High 9.4-12.1 [facility] Comment on above: Performed By: #### P OCPTINR ####[facility] [address] [place] [id number] POC PT and INR (Dr.office)on 11-22-2021 POC INR Result (Dr.office) 2.3 [facility] Comment on above: Result Comment: For patients on oral anticoagulants, the therapeutic INR reference range is 2.0 to 3.5 Performed By: #### B MP #### [facility] [address] [place] [id number] POC PT Result (Dr.office) 27.7 seconds High 9.4-12.1 [facility] Comment on above: Performed By: #### B MP #### [facility] [address] [place] [address] [id number] [facility] [address] [address] [facility] Signed PRELIMINARY DRAFT REPORT UNTIL ELECTRONICALLY SIGNED PATIENT: Mick Cottrell MR#: [id number] : 1940 AGE/SEX: 81 / M ADMITTED: 11/21/21 OUTSIDE LOCN: LOCATION: [facility] ATTENDING: Grace Gtz MD cc: ; Anti-Coagulation History Referring Physician: Grace Gtz Supervising Clinician: Jose Jordan Medical history: cancer, COPD, CVA, diabetes, GERD, hyperlipidemia, hypertension Additional medical history PMH: right lung drainage - pt reports 1800cc of drainage from "center sac" of lung Male Surgical History: cataract, herniorrhaphy, sinus surgery, tonsillectomy Female Surgical History: heart valve replacement (Aortic valve replacement) Additional surgical history PMH: lung drained, tonsillectomy, nasal surgery, loop recorder removal. heart valve replacement - cow valve Psychiatric history: depression Smoking Status: Former smoker Smokeless Tobacco Status: No Alcohol use PMH: none Drug use: none Occupational status: retired [employer] INR: 2.3 INR Range: 2-3 (CVA) Specimen Processed (Date): 11/21/21 Specimen Processed (Time): 09:51 Dietary changes: no dietary changes Medication changes: no changes Adherence: patient denies adherence changes Missed doses: Yes (missed dose saturday) Activity changes: no change Symptoms: none Upcoming procedure: No Patient Instructions: Begin taking your Coumadin according to the dosage schedule listed above. Have a great week and I'll see you soon. IT IS EXTREMELY IMPORTANT THAT YOU NOTIFY OUR OFFICE OF ALL MEDICATION CHANGES ON THE DAY THAT THEY OCCUR. IF THE CHANGE SHOULD OCCUR AFTER HOURS OR ON THE WEEKEND, SELECT OPTION #2 AND YOUR CALL WILL BE TRANSFERRED TO THE INPATIENT PHARMACIST FOR ASSISTANCE. Also make us aware of any illnesses that give you diarrhea or vomiting. Thank you! Please do not arrive more than 10 minutes prior to your scheduled appointment. Cancellation notice must be provided at least 24 hours in advance. Thank you!! If you experiencing a bleeding emergency and the voicemail is not picking up, please contact our toll free number at: Joselito Colon PharmD 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) Hypokalemia (Acute) COPD (chronic obstructive pulmonary disease) (Chronic) DVT prophylaxis (Acute) CVA (cerebral vascular accident) (Chronic) COVID-19 (Acute) COPD exacerbation (Acute) Acute respiratory failure with hypoxia (Acute) HTN (hypertension) (Chronic) BPH (benign prostatic hyperplasia) (Chronic) Dehydration (Acute) Sepsis (Acute) Acute metabolic encephalopathy (Acute) Atrial fibrillation with RVR (Acute) Atrial fibrillation (Chronic) Systolic heart failure (Chronic) GERD (gastroesophageal reflux disease) (Chronic) Hemoptysis (Acute) Multifocal pneumonia (Acute) Pneumonia due to COVID-19 virus (Acute) DVT prophylaxis (Acute) Heart failure with preserved ejection fraction (Chronic) CVA (cerebral vascular accident) (Chronic) Secondary bacterial pneumonia (Acute) Paroxysmal atrial fibrillation (Chronic) Physical deconditioning (Acute) Adjustment disorder with mixed anxiety and depressed mood (Acute) Constipation (Acute) Shortness of breath (Acute) Pulmonary embolism (Acute) Palpitations (Acute) CAD (coronary artery disease) (Acute) Hypomagnesemia (Acute) Elevated troponin (Acute) Loculated pleural effusion (Chronic) Obstructive uropathy (Acute) Ureteral stone with hydronephrosis (Acute) Hypertensive urgency (Acute) Hematuria (Acute) Renal insufficiency (Acute) MARYLOU (acute kidney injury) (Acute) Pharmacist Visit Note: Mick Cotrtell was questioned extensively about any missed dosages, any exercise or lifestyle changes, new medication regimens, any changes in diet or increased/decreased vitamin K foods, any bleeding issues, any illnesses including any nausea, vomiting or diarrhea as well as any upcoming surgeries or procedures. Patient denies any further changes. Total time spent: 15 minutes Joselito Colon PharmD. - Dosing Schedule Changes made to dosing schedule?: Yes Warfarin Strength: 4mg Daily Dose (Sun): 4 # of Tablets (Sun): 1 Daily Dose (Mon): 4 # of Tablets (Mon): 1 Daily Dose (Tue): 4 # of Tablets (Tue): 1 Daily Dose (Wed): 6 # of Tablets (Wed): 1.5 Daily Dose (Kenna): 4 # of Tablets (Kenna): 1 Daily Dose (Fri): 4 # of Tablets (Fri): 1 Daily Dose (Sat): 4 # of Tablets (Sat): 1 Total Doses (mg): 30 Reason for dosing changes: 1.7 to 2.3 in 1 week and missed sundays dose Follow up visit requested: 1 we (more content not included)... Normal [facility] [address] [address] [facility] Signed PRELIMINARY DRAFT REPORT UNTIL ELECTRONICALLY SIGNED PATIENT: Mick Cottrell MR#: [id number] : 1940 AGE/SEX: 81 / M ADMITTED: 11/14/21 OUTSIDE LOCN: LOCATION: [facility] ATTENDING: Grace Gtz MD cc: ; Anti-Coagulation History Referring Physician: Grace Gtz Supervising Clinician: Jose Jordan Medical history: cancer, COPD, CVA, diabetes, GERD, hyperlipidemia, hypertension Additional medical history PMH: right lung drainage - pt reports 1800cc of drainage from "center sac" of lung Male Surgical History: cataract, herniorrhaphy, sinus surgery, tonsillectomy Female Surgical History: heart valve replacement (Aortic valve replacement) Additional surgical history PMH: lung drained, tonsillectomy, nasal surgery, loop recorder removal. heart valve replacement - cow valve Psychiatric history: depression Smoking Status: Former smoker Smokeless Tobacco Status: No Alcohol use PMH: none Drug use: none Occupational status: retired [employer] INR: 1.7 Is [facility] Therapy Indicated: No INR Range: 2-3 (CVA) Specimen Processed (Date): 11/14/21 Specimen Processed (Time): 09:44 Patient Instructions: Begin taking your Coumadin according to the dosage schedule listed above. Have a great week and I'll see you soon. IT IS EXTREMELY IMPORTANT THAT YOU NOTIFY OUR OFFICE OF ALL MEDICATION CHANGES ON THE DAY THAT THEY OCCUR. IF THE CHANGE SHOULD OCCUR AFTER HOURS OR ON THE WEEKEND, SELECT OPTION #2 AND YOUR CALL WILL BE TRANSFERRED TO THE INPATIENT PHARMACIST FOR ASSISTANCE. Also make us aware of any illnesses that give you diarrhea or vomiting. Thank you! Please do not arrive more than 10 minutes prior to your scheduled appointment. Cancellation notice must be provided at least 24 hours in advance. Thank you!! 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) Hypokalemia (Acute) COPD (chronic obstructive pulmonary disease) (Chronic) DVT prophylaxis (Acute) CVA (cerebral vascular accident) (Chronic) COVID-19 (Acute) COPD exacerbation (Acute) Acute respiratory failure with hypoxia (Acute) HTN (hypertension) (Chronic) BPH (benign prostatic hyperplasia) (Chronic) Dehydration (Acute) Sepsis (Acute) Acute metabolic encephalopathy (Acute) Atrial fibrillation with RVR (Acute) Atrial fibrillation (Chronic) Systolic heart failure (Chronic) GERD (gastroesophageal reflux disease) (Chronic) Hemoptysis (Acute) Multifocal pneumonia (Acute) Pneumonia due to COVID-19 virus (Acute) DVT prophylaxis (Acute) Heart failure with preserved ejection fraction (Chronic) CVA (cerebral vascular accident) (Chronic) Secondary bacterial pneumonia (Acute) Paroxysmal atrial fibrillation (Chronic) Physical deconditioning (Acute) Adjustment disorder with mixed anxiety and depressed mood (Acute) Constipation (Acute) Shortness of breath (Acute) Pulmonary embolism (Acute) Palpitations (Acute) CAD (coronary artery disease) (Acute) Hypomagnesemia (Acute) Elevated troponin (Acute) Loculated pleural effusion (Chronic) Obstructive uropathy (Acute) Ureteral stone with hydronephrosis (Acute) Hypertensive urgency (Acute) Hematuria (Acute) Renal insufficiency (Acute) MARYLOU (acute kidney injury) (Acute) Pharmacist Visit Note: Mick Cottrell was questioned extensively about any missed dosages, any exercise or lifestyle changes, new medication regimens, any changes in diet or increased/decreased vitamin K foods, any bleeding issues, any illnesses including any nausea, vomiting or diarrhea as well as any upcoming surgeries or procedures. Patient denies any further changes. Total time spent: 15 minutes Diandra Arechiga PharmD. - Dosing Schedule Changes made to dosing schedule?: Yes Warfarin Strength: 4mg Daily Dose (Sun): 4 # of Tablets (Sun): 1 Daily Dose (Mon): 4 # of Tablets (Mon): 1 Daily Dose (Tue): 4 # of Tablets (Tue): 1 Daily Dose (Wed): 6 # of Tablets (Wed): 1.5 Daily Dose (Kenna): 4 # of Tablets (Kenna): 1 Daily Dose (Fri): 4 # of Tablets (Fri): 1 Daily Dose (Sat): 6 # of Tablets (Sat): 1.5 Total Doses (mg): 32 Reason for dosing changes: Low INR Follow up visit requested: 1 week Documented By: Diandra Arechiga Signed By: 11/14/2145 DD/ Initialized By: [id number] [facility] POC PT and INR (office)on 11-14-2021 POC INR Result (office) 1.7 [facility] Comment on above: Result Comment: For patients on oral anticoagulants, the therapeutic INR reference range is 2.0 to 3.5 Performed By: #### P OCPTINR ####[facility] [address] [place], [place] [id number] POC PT Result (office) 20.8 seconds High 9.4-12.1 [facility] Comment on above: Performed By: #### P OCPTINR ####[facility] [address] [place] [id number] [facility] [address] [address] [facility] Signed PRELIMINARY DRAFT REPORT UNTIL ELECTRONICALLY SIGNED PATIENT: Mick Cottrell MR#: [id number] : 1940 AGE/SEX: 81 / M ADMITTED: 10/24/21 OUTSIDE LOCN: LOCATION: [facility] ATTENDING: Grace Gtz MD cc: ; Anti-Coagulation History Referring Physician: Grace Gtz Supervising Clinician: Jose Jordan Medical history: cancer, COPD, CVA, diabetes, GERD, hyperlipidemia, hypertension Additional medical history PMH: right lung drainage - pt reports 1800cc of drainage from "center sac" of lung Male Surgical History: cataract, herniorrhaphy, sinus surgery, tonsillectomy Female Surgical History: heart valve replacement (Aortic valve replacement) Additional surgical history PMH: lung drained, tonsillectomy, nasal surgery, loop recorder removal. heart valve replacement - cow valve Psychiatric history: depression Smoking Status: Former smoker Smokeless Tobacco Status: No Alcohol use PMH: none Drug use: none Occupational status: retired [employer] INR: 2.1 INR Range: 2-3 (CVA) Specimen Processed (Date): 10/24/21 Specimen Processed (Time): 10:15 Patient Instructions: Keep taking the same amount of Coumadin as you have been taking. Have a great week and I'll see you soon. IT IS EXTREMELY IMPORTANT THAT YOU NOTIFY OUR OFFICE OF ALL MEDICATION CHANGES ON THE DAY THAT THEY OCCUR. IF THE CHANGE SHOULD OCCUR AFTER HOURS OR ON THE WEEKEND, SELECT OPTION #2 AND YOUR CALL WILL BE TRANSFERRED TO THE INPATIENT PHARMACIST FOR ASSISTANCE. Also make us aware of any illnesses that give you diarrhea or vomiting. Please do not arrive more than 10 minutes prior to your scheduled appointment. Cancellation notice must be provided at least 24 hours in advance. Thank you!! If you are experiencing a bleeding emergency and the voicemail is not picking up, please contact our toll free number at: . Diandra Arechiga PharmD. 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) Hypokalemia (Acute) COPD (chronic obstructive pulmonary disease) (Chronic) DVT prophylaxis (Acute) CVA (cerebral vascular accident) (Chronic) COVID-19 (Acute) COPD exacerbation (Acute) Acute respiratory failure with hypoxia (Acute) HTN (hypertension) (Chronic) BPH (benign prostatic hyperplasia) (Chronic) Dehydration (Acute) Sepsis (Acute) Acute metabolic encephalopathy (Acute) Atrial fibrillation with RVR (Acute) Atrial fibrillation (Chronic) Systolic heart failure (Chronic) GERD (gastroesophageal reflux disease) (Chronic) Hemoptysis (Acute) Multifocal pneumonia (Acute) Pneumonia due to COVID-19 virus (Acute) DVT prophylaxis (Acute) Heart failure with preserved ejection fraction (Chronic) CVA (cerebral vascular accident) (Chronic) Secondary bacterial pneumonia (Acute) Paroxysmal atrial fibrillation (Chronic) Physical deconditioning (Acute) Adjustment disorder with mixed anxiety and depressed mood (Acute) Constipation (Acute) Shortness of breath (Acute) Pulmonary embolism (Acute) Palpitations (Acute) CAD (coronary artery disease) (Acute) Hypomagnesemia (Acute) Elevated troponin (Acute) Loculated pleural effusion (Chronic) Obstructive uropathy (Acute) Ureteral stone with hydronephrosis (Acute) Hypertensive urgency (Acute) Hematuria (Acute) Renal insufficiency (Acute) MARYLOU (acute kidney injury) (Acute) Pharmacist Visit Note: Mick Cottrell was questioned extensively about any missed dosages, any exercise or lifestyle changes, new medication regimens, any changes in diet or increased/decreased vitamin K foods, any bleeding issues, any illnesses including any nausea, vomiting or diarrhea as well as any upcoming surgeries or procedures. Patient denies any further changes. Total time spent: 15 minutes Diandra Arechiga PharmD. - Dosing Schedule Changes made to dosing schedule?: No Warfarin Strength: 4mg Daily Dose (Sun): 4 # of Tablets (Sun): 1 Daily Dose (Mon): 4 # of Tablets (Mon): 1 Daily Dose (Tue): 4 # of Tablets (Tue): 1 Daily Dose (Wed): 6 # of Tablets (Wed): 1.5 Daily Dose (Kenna): 4 # of Tablets (Kenna): 1 Daily Dose (Fri): 4 # of Tablets (Fri): 1 Daily Dose (Sat): 4 # of Tablets (Sat): 1 Total Doses (mg): 30 Documented By: Diandra Arechiga Signed By: 10/24/21 1015 DD/ 1011 Initialized By: [id number] [facility] POC PT and INR (office)on 10-24-2021 POC INR Result (office) 2.1 [facility] Comment on above: Result Comment: For patients on oral anticoagulants, the therapeutic INR reference range is 2.0 to 3.5 Performed By: #### C UU #### [facility] [address] [place] [address] POC PT Result (office) 25.5 seconds High 9.4-12.1 [facility] Comment on above: Performed By: #### C UU #### [facility] [address] [place] [id number] [facility] [address] [phone] [facility] Signed PRELIMINARY DRAFT REPORT UNTIL ELECTRONICALLY SIGNED PATIENT: Mick Cottrell MR#: [id number] : 1940 AGE/SEX: 81 / M ADMITTED: 10/11/21 OUTSIDE LOCN: LOCATION: [facility] ATTENDING: Grace Gtz MD cc: ; Anti-Coagulation History Referring Physician: Grace Gtz Supervising Clinician: Jose Jordan Medical history: cancer, COPD, CVA, diabetes, GERD, hyperlipidemia, hypertension Additional medical history PMH: right lung drainage - pt reports 1800cc of drainage from "center sac" of lung Male Surgical History: cataract, herniorrhaphy, sinus surgery, tonsillectomy Female Surgical History: heart valve replacement (Aortic valve replacement) Additional surgical history PMH: lung drained, tonsillectomy, nasal surgery, loop recorder removal. heart valve replacement - cow valve Psychiatric history: depression Smoking Status: Former smoker Smokeless Tobacco Status: No Alcohol use PMH: none Drug use: none Occupational status: retired [employer] INR: 2.3 INR Range: 2-3 (CVA) Specimen Processed (Date): 10/11/21 Specimen Processed (Time): 10:16 Patient Instructions: Keep taking the same amount of Coumadin as you have been taking. Have a great week and I'll see you soon. IT IS EXTREMELY IMPORTANT THAT YOU NOTIFY OUR OFFICE OF ALL MEDICATION CHANGES ON THE DAY THAT THEY OCCUR. IF THE CHANGE SHOULD OCCUR AFTER HOURS OR ON THE WEEKEND, SELECT OPTION #2 AND YOUR CALL WILL BE TRANSFERRED TO THE INPATIENT PHARMACIST FOR ASSISTANCE. Also make us aware of any illnesses that give you diarrhea or vomiting. Please do not arrive more than 10 minutes prior to your scheduled appointment. Cancellation notice must be provided at least 24 hours in advance. Thank you!! If you are experiencing a bleeding emergency and the voicemail is not picking up, please contact our toll free number at: . Diandra N Eckles PharmD. 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) Hypokalemia (Acute) COPD (chronic obstructive pulmonary disease) (Chronic) DVT prophylaxis (Acute) CVA (cerebral vascular accident) (Chronic) COVID-19 (Acute) COPD exacerbation (Acute) Acute respiratory failure with hypoxia (Acute) HTN (hypertension) (Chronic) BPH (benign prostatic hyperplasia) (Chronic) Dehydration (Acute) Sepsis (Acute) Acute metabolic encephalopathy (Acute) Atrial fibrillation with RVR (Acute) Atrial fibrillation (Chronic) Systolic heart failure (Chronic) GERD (gastroesophageal reflux disease) (Chronic) Hemoptysis (Acute) Multifocal pneumonia (Acute) Pneumonia due to COVID-19 virus (Acute) DVT prophylaxis (Acute) Heart failure with preserved ejection fraction (Chronic) CVA (cerebral vascular accident) (Chronic) Secondary bacterial pneumonia (Acute) Paroxysmal atrial fibrillation (Chronic) Physical deconditioning (Acute) Adjustment disorder with mixed anxiety and depressed mood (Acute) Constipation (Acute) Shortness of breath (Acute) Pulmonary embolism (Acute) Palpitations (Acute) CAD (coronary artery disease) (Acute) Hypomagnesemia (Acute) Elevated troponin (Acute) Loculated pleural effusion (Chronic) Obstructive uropathy (Acute) Ureteral stone with hydronephrosis (Acute) Hypertensive urgency (Acute) Hematuria (Acute) Renal insufficiency (Acute) MARYLOU (acute kidney injury) (Acute) Pharmacist Visit Note: Mick Zachariah Cottrell was questioned extensively about any missed dosages, any exercise or lifestyle changes, new medication regimens, any changes in diet or increased/decreased vitamin K foods, any bleeding issues, any illnesses including any nausea, vomiting or diarrhea as well as any upcoming surgeries or procedures. Patient denies any further changes. Total time spent: 15 minutes Diandra DillonD. - Dosing Schedule Changes made to dosing schedule?: No Warfarin Strength: 4mg Daily Dose (Sun): 4 # of Tablets (Sun): 1 Daily Dose (Mon): 4 # of Tablets (Mon): 1 Daily Dose (Tue): 4 # of Tablets (Tue): 1 Daily Dose (Sat): 6 # of Tablets (Wed): 1.5 Daily Dose (Kenna): 4 # of Tablets (Kenna): 1 Daily Dose (Fri): 4 # of Tablets (Fri): 1 Daily Dose (Sat): 4 # of Tablets (Sat): 1 Total Doses (mg): 30 Documented By: Diandra Arechiga Signed By: 10/11/21 1017 DD/ 1016 Initialized By: [id number] [facility] POC PT and INR (office)on 10-11-2021 POC INR Result (office) 2.3 Normal [facility] Comment on above: Result Comment: For patients on oral anticoagulants, the therapeutic INR reference range is 2.0 to 3.5 Performed By: #### B MP #### [facility] [address] [place] [id number] POC PT Result (office) 27.0 seconds High 9.4-12.1 [facility] Comment on above: Performed By: #### B MP #### [facility] [address] [place] [id number] [facility] [address] [address] [facility] Signed PRELIMINARY DRAFT REPORT UNTIL ELECTRONICALLY SIGNED PATIENT: Mick Cottrell MR#: [id number] : 1940 AGE/SEX: 81 / M ADMITTED: 10/02/21 OUTSIDE LOCN: LOCATION: [facility] ATTENDING: Grace Gtz MD cc: ; Anti-Coagulation History Referring Physician: Grace Gtz Supervising Clinician: Jose Jordan Medical history: cancer, COPD, CVA, diabetes, GERD, hyperlipidemia, hypertension Additional medical history PMH: right lung drainage - pt reports 1800cc of drainage from "center sac" of lung Male Surgical History: cataract, herniorrhaphy, sinus surgery, tonsillectomy Female Surgical History: heart valve replacement (Aortic valve replacement) Additional surgical history PMH: lung drained, tonsillectomy, nasal surgery, loop recorder removal. heart valve replacement - cow valve Psychiatric history: depression Smoking Status: Former smoker Smokeless Tobacco Status: No Alcohol use PMH: none Drug use: none Occupational status: retired [employer] INR: 2.3 INR Range: 2-3 (CVA) Specimen Processed (Date): 10/02/21 Specimen Processed (Time): 10:14 Patient Instructions: Begin taking your Coumadin according to the dosage schedule listed above. Have a great week and I'll see you soon. IT IS EXTREMELY IMPORTANT THAT YOU NOTIFY OUR OFFICE OF ALL MEDICATION CHANGES ON THE DAY THAT THEY OCCUR. IF THE CHANGE SHOULD OCCUR AFTER HOURS OR ON THE WEEKEND, SELECT OPTION #2 AND YOUR CALL WILL BE TRANSFERRED TO THE INPATIENT PHARMACIST FOR ASSISTANCE. Also make us aware of any illnesses that give you diarrhea or vomiting. Thank you! Please do not arrive more than 10 minutes prior to your scheduled appointment. Cancellation notice must be provided at least 24 hours in advance. Thank you!! 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) Hypokalemia (Acute) COPD (chronic obstructive pulmonary disease) (Chronic) DVT prophylaxis (Acute) CVA (cerebral vascular accident) (Chronic) COVID-19 (Acute) COPD exacerbation (Acute) Acute respiratory failure with hypoxia (Acute) HTN (hypertension) (Chronic) BPH (benign prostatic hyperplasia) (Chronic) Dehydration (Acute) Sepsis (Acute) Acute metabolic encephalopathy (Acute) Atrial fibrillation with RVR (Acute) Atrial fibrillation (Chronic) Systolic heart failure (Chronic) GERD (gastroesophageal reflux disease) (Chronic) Hemoptysis (Acute) Multifocal pneumonia (Acute) Pneumonia due to COVID-19 virus (Acute) DVT prophylaxis (Acute) Heart failure with preserved ejection fraction (Chronic) CVA (cerebral vascular accident) (Chronic) Secondary bacterial pneumonia (Acute) Paroxysmal atrial fibrillation (Chronic) Physical deconditioning (Acute) Adjustment disorder with mixed anxiety and depressed mood (Acute) Constipation (Acute) Shortness of breath (Acute) Pulmonary embolism (Acute) Palpitations (Acute) CAD (coronary artery disease) (Acute) Hypomagnesemia (Acute) Elevated troponin (Acute) Loculated pleural effusion (Chronic) Obstructive uropathy (Acute) Ureteral stone with hydronephrosis (Acute) Hypertensive urgency (Acute) Hematuria (Acute) Renal insufficiency (Acute) MARYLOU (acute kidney injury) (Acute) Pharmacist Visit Note: Mick Cottrell was questioned extensively about any missed dosages, any exercise or lifestyle changes, new medication regimens, any changes in diet or increased/decreased vitamin K foods, any bleeding issues, any illnesses including any nausea, vomiting or diarrhea as well as any upcoming surgeries or procedures. Patient denies any further changes. Total time spent: 15 minutes Aminah Stevenson PharmD. - Dosing Schedule Changes made to dosing schedule?: Yes Warfarin Strength: 4mg Daily Dose (Sun): 4 # of Tablets (Sun): 1 Daily Dose (Mon): 4 # of Tablets (Mon): 1 Daily Dose (Tue): 4 # of Tablets (Tue): 1 Daily Dose (Wed): 6 # of Tablets (Wed): 1.5 Daily Dose (Kenna): 4 # of Tablets (Kenna): 1 Daily Dose (Fri): 4 # of Tablets (Fri): 1 Daily Dose (Sat): 4 # of Tablets (Sat): 1 Total Doses (mg): 30 Reason for dosing changes: adding back in 4.1 to 2.3 in 5 days Documented By: Aminah Stevenson Signed By: 10/02/21 1018 DD/ 1013 Initialized By: [id number] [facility] POC PT and INR (office)on 10-02-2021 POC INR Result (office) 2.3 Normal [facility] Comment on above: Result Comment: For patients on oral anticoagulants, the therapeutic INR reference range is 2.0 to 3.5 Performed By: #### P OCPTINR ####[facility] [address] [place] [id number] POC PT Result (office) 27.0 seconds High 9.4-12.1 [facility] Comment on above: Performed By: #### P OCPTINR ####[facility] [address] [place] [id number] POC PT and INR (office)on 09-29-2021 POC INR Result (office) 4.1 Normal [facility] Comment on above: Result Comment: For patients on oral anticoagulants, the therapeutic INR reference range is 2.0 to 3.5 Performed By: #### P OCPTINR ####[facility] [address] [place] [address] POC PT Result (office) 49.8 seconds High 9.4-12.1 [facility] Comment on above: Performed By: #### P OCPTINR ####[facility] [address] [place] [address] [facility] [address] [address] [facility] Signed PRELIMINARY DRAFT REPORT UNTIL ELECTRONICALLY SIGNED PATIENT: Mick Cottrell MR#: [id number] : 1940 AGE/SEX: 81 / M ADMITTED: 09/27/21 OUTSIDE LOCN: LOCATION: [facility] ATTENDING: Grace Gtz MD cc: ; Anti-Coagulation History Referring Physician: Grace Gtz Supervising Clinician: Jose Jordan Medical history: cancer, COPD, CVA, diabetes, GERD, hyperlipidemia, hypertension Additional medical history PMH: right lung drainage - pt reports 1800cc of drainage from "center sac" of lung Male Surgical History: cataract, herniorrhaphy, sinus surgery, tonsillectomy Female Surgical History: heart valve replacement (Aortic valve replacement) Additional surgical history PMH: lung drained, tonsillectomy, nasal surgery, loop recorder removal. heart valve replacement - cow valve Psychiatric history: depression Smoking Status: Former smoker Smokeless Tobacco Status: No Alcohol use PMH: none Drug use: none Occupational status: retired [employer] INR: 4.1 INR Range: 2-3 (CVA) Specimen Processed (Date): 09/27/21 Specimen Processed (Time): 09:41 Symptoms: shortness of breath (increased SOB. ) Patient Instructions: Begin taking your Coumadin according to the dosage schedule listed above. Have a great week and I'll see you soon. IT IS EXTREMELY IMPORTANT THAT YOU NOTIFY OUR OFFICE OF ALL MEDICATION CHANGES ON THE DAY THAT THEY OCCUR. IF THE CHANGE SHOULD OCCUR AFTER HOURS OR ON THE WEEKEND, SELECT OPTION #2 AND YOUR CALL WILL BE TRANSFERRED TO THE INPATIENT PHARMACIST FOR ASSISTANCE. Also make us aware of any illnesses that give you diarrhea or vomiting. Thank you! Please do not arrive more than 10 minutes prior to your scheduled appointment. Cancellation notice must be provided at least 24 hours in advance. Thank you!! 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) Hypokalemia (Acute) COPD (chronic obstructive pulmonary disease) (Chronic) DVT prophylaxis (Acute) CVA (cerebral vascular accident) (Chronic) COVID-19 (Acute) COPD exacerbation (Acute) Acute respiratory failure with hypoxia (Acute) HTN (hypertension) (Chronic) BPH (benign prostatic hyperplasia) (Chronic) Dehydration (Acute) Sepsis (Acute) Acute metabolic encephalopathy (Acute) Atrial fibrillation with RVR (Acute) Atrial fibrillation (Chronic) Systolic heart failure (Chronic) GERD (gastroesophageal reflux disease) (Chronic) Hemoptysis (Acute) Multifocal pneumonia (Acute) Pneumonia due to COVID-19 virus (Acute) DVT prophylaxis (Acute) Heart failure with preserved ejection fraction (Chronic) CVA (cerebral vascular accident) (Chronic) Secondary bacterial pneumonia (Acute) Paroxysmal atrial fibrillation (Chronic) Physical deconditioning (Acute) Adjustment disorder with mixed anxiety and depressed mood (Acute) Constipation (Acute) Shortness of breath (Acute) Pulmonary embolism (Acute) Palpitations (Acute) CAD (coronary artery disease) (Acute) Hypomagnesemia (Acute) Elevated troponin (Acute) Loculated pleural effusion (Chronic) Obstructive uropathy (Acute) Ureteral stone with hydronephrosis (Acute) Hypertensive urgency (Acute) Hematuria (Acute) Renal insufficiency (Acute) MARYLOU (acute kidney injury) (Acute) Pharmacist Visit Note: Mick Cottrell was questioned extensively about any missed dosages, any exercise or lifestyle changes, new medication regimens, any changes in diet or increased/decreased vitamin K foods, any bleeding issues, any illnesses including any nausea, vomiting or diarrhea as well as any upcoming surgeries or procedures. Patient denies any further changes. Total time spent: 15 minutes Piyush Sales PharmD. - Dosing Schedule Changes made to dosing schedule?: Yes Warfarin Strength: 4mg Daily Dose (Sun): 4 # of Tablets (Sun): 1 Daily Dose (Mon): 4 # of Tablets (Mon): 1 Daily Dose (Tue): 4 # of Tablets (Tue): 1 Daily Dose (Wed): 0 # of Tablets (Wed): 0 Daily Dose (Kenna): 4 # of Tablets (Kenna): 1 Daily Dose (Fri): 4 # of Tablets (Fri): 1 Daily Dose (Sat): 4 # of Tablets (Sat): 1 Total Doses (mg): 24 Reason for dosing changes: 4.1 INR hx of CVA Follow up visit requested: 1 week Documented By: Piyush Sales Signed By: 09/27/2144 DD/ Initialized By: [id number] [facility] [address] [facility] Signed PRELIMINARY DRAFT REPORT UNTIL ELECTRONICALLY SIGNED PATIENT: Mick Cottrell MR#: [id number] : 1940 AGE/SEX: 81 / M ADMITTED: 09/20/21 OUTSIDE LOCN: LOCATION: [facility] ATTENDING: Grace Gtz MD cc: ; Anti-Coagulation History Referring Physician: Grace Gtz Supervising Clinician: Jose Jordan Medical history: cancer, COPD, CVA, diabetes, GERD, hyperlipidemia, hypertension Additional medical history PMH: right lung drainage - pt reports 1800cc of drainage from "center sac" of lung Male Surgical History: cataract, herniorrhaphy, sinus surgery, tonsillectomy Female Surgical History: heart valve replacement (Aortic valve replacement) Additional surgical history PMH: lung drained, tonsillectomy, nasal surgery, loop recorder removal. heart valve replacement - cow valve Psychiatric history: depression Smoking Status: Former smoker Smokeless Tobacco Status: No Alcohol use PMH: none Drug use: none Occupational status: retired [employer] INR: 2.3 INR Range: 2-3 (CVA) Specimen Processed (Date): 09/20/21 Specimen Processed (Time): 09:00 Patient Instructions: Begin taking your Coumadin according to the dosage schedule listed above. Have a great week and I'll see you soon. IT IS EXTREMELY IMPORTANT THAT YOU NOTIFY OUR OFFICE OF ALL MEDICATION CHANGES ON THE DAY THAT THEY OCCUR. IF THE CHANGE SHOULD OCCUR AFTER HOURS OR ON THE WEEKEND, SELECT OPTION #2 AND YOUR CALL WILL BE TRANSFERRED TO THE INPATIENT PHARMACIST FOR ASSISTANCE. Also make us aware of any illnesses that give you diarrhea or vomiting. Thank you! Please do not arrive more than 10 minutes prior to your scheduled appointment. Cancellation notice must be provided at least 24 hours in advance. Thank you!! 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) Hypokalemia (Acute) COPD (chronic obstructive pulmonary disease) (Chronic) DVT prophylaxis (Acute) CVA (cerebral vascular accident) (Chronic) COVID-19 (Acute) COPD exacerbation (Acute) Acute respiratory failure with hypoxia (Acute) HTN (hypertension) (Chronic) BPH (benign prostatic hyperplasia) (Chronic) Dehydration (Acute) Sepsis (Acute) Acute metabolic encephalopathy (Acute) Atrial fibrillation with RVR (Acute) Atrial fibrillation (Chronic) Systolic heart failure (Chronic) GERD (gastroesophageal reflux disease) (Chronic) Hemoptysis (Acute) Multifocal pneumonia (Acute) Pneumonia due to COVID-19 virus (Acute) DVT prophylaxis (Acute) Heart failure with preserved ejection fraction (Chronic) CVA (cerebral vascular accident) (Chronic) Secondary bacterial pneumonia (Acute) Paroxysmal atrial fibrillation (Chronic) Physical deconditioning (Acute) Adjustment disorder with mixed anxiety and depressed mood (Acute) Constipation (Acute) Shortness of breath (Acute) Pulmonary embolism (Acute) Palpitations (Acute) CAD (coronary artery disease) (Acute) Hypomagnesemia (Acute) Elevated troponin (Acute) Loculated pleural effusion (Chronic) Obstructive uropathy (Acute) Ureteral stone with hydronephrosis (Acute) Hypertensive urgency (Acute) Hematuria (Acute) Renal insufficiency (Acute) MARYLOU (acute kidney injury) (Acute) Pharmacist Visit Note: Mick Cottrell was questioned extensively about any missed dosages, any exercise or lifestyle changes, new medication regimens, any changes in diet or increased/decreased vitamin K foods, any bleeding issues, any illnesses including any nausea, vomiting or diarrhea as well as any upcoming surgeries or procedures. Patient denies any further changes. Total time spent: 15 minutes Piyush Sales PharmD. - Dosing Schedule Changes made to dosing schedule?: No Warfarin Strength: 4mg Daily Dose (Sun): 6 # of Tablets (Sun): 1.5 Daily Dose (Mon): 4 # of Tablets (Mon): 1 Daily Dose (Tue): 4 # of Tablets (Tue): 1 Daily Dose (Wed): 4 # of Tablets (Wed): 1 Daily Dose (Kenna): 6 # of Tablets (Kenna): 1.5 Daily Dose (Fri): 4 # of Tablets (Fri): 1 Daily Dose (Sat): 6 # of Tablets (Sat): 1.5 Total Doses (mg): 34 Follow up visit requested: 1 week Documented By: Piyush Sales Signed By: 09/20/21900 DD/ 9 Initialized By: [id number] [facility] POC PT and INR (office)on 09-20-2021 POC INR Result (office) 2.3 Normal [facility] Comment on above: Result Comment: For patients on oral anticoagulants, the therapeutic INR reference range is 2.0 to 3.5 Performed By: #### L IP, HEPATIC, BMP, ROSSY #### [facility] [address] [place] [id number] POC PT Result (office) 27.1 seconds High 9.4-12.1 [facility] Comment on above: Performed By: #### L IP, HEPATIC, BMP, ROSSY #### [facility] [address] [place] [address] [facility] [address] [address] [facility] Signed PRELIMINARY DRAFT REPORT UNTIL ELECTRONICALLY SIGNED PATIENT: Mick Cottrell MR#: [id number] : 1940 AGE/SEX: 80 / M ADMITTED: 09/13/21 OUTSIDE LOCN: LOCATION: [facility] ATTENDING: Grace Gtz MD cc: ; Anti-Coagulation History Referring Physician: Grace Gtz Supervising Clinician: Jose Jordan Medical history: cancer, COPD, CVA, diabetes, GERD, hyperlipidemia, hypertension Additional medical history PMH: right lung drainage - pt reports 1800cc of drainage from "center sac" of lung Male Surgical History: cataract, herniorrhaphy, sinus surgery, tonsillectomy Female Surgical History: heart valve replacement (Aortic valve replacement) Additional surgical history PMH: lung drained, tonsillectomy, nasal surgery, loop recorder removal. heart valve replacement - cow valve Psychiatric history: depression Smoking Status: Former smoker Smokeless Tobacco Status: No Alcohol use PMH: none Drug use: none Occupational status: retired [employer] INR: 1.6 Is Bridging Therapy Indicated: Yes Type of Bridging: [place] has refused to take Lovenox, and has been advised of the risks. INR Range: 2-3 (CVA) Specimen Processed (Date): 09/13/21 Specimen Processed (Time): 08:48 Patient Instructions: Begin taking your Coumadin according to the dosage schedule listed above. Have a great week and I'll see you soon. IT IS EXTREMELY IMPORTANT THAT YOU NOTIFY OUR OFFICE OF ALL MEDICATION CHANGES ON THE DAY THAT THEY OCCUR. IF THE CHANGE SHOULD OCCUR AFTER HOURS OR ON THE WEEKEND, SELECT OPTION #2 AND YOUR CALL WILL BE TRANSFERRED TO THE INPATIENT PHARMACIST FOR ASSISTANCE. Also make us aware of any illnesses that give you diarrhea or vomiting. Thank you! Please do not arrive more than 10 minutes prior to your scheduled appointment. Cancellation notice must be provided at least 24 hours in advance. Thank you!! 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) Hypokalemia (Acute) COPD (chronic obstructive pulmonary disease) (Chronic) DVT prophylaxis (Acute) CVA (cerebral vascular accident) (Chronic) COVID-19 (Acute) COPD exacerbation (Acute) Acute respiratory failure with hypoxia (Acute) HTN (hypertension) (Chronic) BPH (benign prostatic hyperplasia) (Chronic) Dehydration (Acute) Sepsis (Acute) Acute metabolic encephalopathy (Acute) Atrial fibrillation with RVR (Acute) Atrial fibrillation (Chronic) Systolic heart failure (Chronic) GERD (gastroesophageal reflux disease) (Chronic) Hemoptysis (Acute) Multifocal pneumonia (Acute) Pneumonia due to COVID-19 virus (Acute) DVT prophylaxis (Acute) Heart failure with preserved ejection fraction (Chronic) CVA (cerebral vascular accident) (Chronic) Secondary bacterial pneumonia (Acute) Paroxysmal atrial fibrillation (Chronic) Physical deconditioning (Acute) Adjustment disorder with mixed anxiety and depressed mood (Acute) Constipation (Acute) Shortness of breath (Acute) Pulmonary embolism (Acute) Palpitations (Acute) CAD (coronary artery disease) (Acute) Hypomagnesemia (Acute) Elevated troponin (Acute) Loculated pleural effusion (Chronic) Obstructive uropathy (Acute) Ureteral stone with hydronephrosis (Acute) Hypertensive urgency (Acute) Hematuria (Acute) Renal insufficiency (Acute) MARYLOU (acute kidney injury) (Acute) Pharmacist Visit Note: Mick Cottrell was questioned extensively about any missed dosages, any exercise or lifestyle changes, new medication regimens, any changes in diet or increased/decreased vitamin K foods, any bleeding issues, any illnesses including any nausea, vomiting or diarrhea as well as any upcoming surgeries or procedures. Patient denies any further changes. Total time spent: 15 minutes Piyush Sales PharmD. - Dosing Schedule Changes made to dosing schedule?: Yes Warfarin Strength: 4mg Daily Dose (Sun): 6 # of Tablets (Sun): 1.5 Daily Dose (Mon): 4 # of Tablets (Mon): 1 Daily Dose (Tue): 4 # of Tablets (Tue): 1 Daily Dose (Sat): 4 # of Tablets (Wed): 1 Daily Dose (Kenna): 6 # of Tablets (Kenna): 1.5 Daily Dose (Fri): 4 # of Tablets (Fri): 1 Daily Dose (Sat): 6 # of Tablets (Sat): 1.5 Total Doses (mg): 34 Reason for dosing changes: 1.6 INR Follow up visit requested: 1 week Documented By: Piyush Sales Signed By: 09/13/21 0849 DD/DT: (more content not included)... Normal [facility] POC PT and INR (office)on 09-13-2021 POC INR Result (office) 1.6 Normal [facility] Comment on above: Result Comment: For patients on oral anticoagulants, the therapeutic INR reference range is 2.0 to 3.5 Performed By: #### L IP, HEPATIC, BMP, ROSSY #### [facility] [address] [place] [id number] POC PT Result (office) 19.0 seconds High 9.4-12.1 [facility] Comment on above: Performed By: #### L IP, HEPATIC, BMP, ROSSY #### [facility] [address] [place] [address] [facility] [address] [address] [facility] Signed PRELIMINARY DRAFT REPORT UNTIL ELECTRONICALLY SIGNED PATIENT: Mick Cottrell MR#: [id number] : 1940 AGE/SEX: 80 / M ADMITTED: 09/06/21 OUTSIDE LOCN: LOCATION: [facility] ATTENDING: Grace Gtz MD cc: ; Anti-Coagulation History Referring Physician: Grace Gtz Supervising Clinician: Jsoe Jordan Medical history: cancer, COPD, CVA, diabetes, GERD, hyperlipidemia, hypertension Additional medical history PMH: right lung drainage - pt reports 1800cc of drainage from "center sac" of lung Male Surgical History: cataract, herniorrhaphy, sinus surgery, tonsillectomy Female Surgical History: heart valve replacement (Aortic valve replacement) Additional surgical history PMH: lung drained, tonsillectomy, nasal surgery, loop recorder removal. heart valve replacement - cow valve Psychiatric history: depression Smoking Status: Former smoker Smokeless Tobacco Status: No Alcohol use PMH: none Drug use: none Occupational status: retired [employer] INR: 1.9 Is Bridging Therapy Indicated: No INR Range: 2-3 (CVA) Specimen Processed (Date): 09/06/21 Specimen Processed (Time): 08:49 Patient Instructions: Begin taking your Coumadin according to the dosage schedule listed above. Have a great week and I'll see you soon. IT IS EXTREMELY IMPORTANT THAT YOU NOTIFY OUR OFFICE OF ALL MEDICATION CHANGES ON THE DAY THAT THEY OCCUR. IF THE CHANGE SHOULD OCCUR AFTER HOURS OR ON THE WEEKEND, SELECT OPTION #2 AND YOUR CALL WILL BE TRANSFERRED TO THE INPATIENT PHARMACIST FOR ASSISTANCE. Also make us aware of any illnesses that give you diarrhea or vomiting. Thank you! Please do not arrive more than 10 minutes prior to your scheduled appointment. Cancellation notice must be provided at least 24 hours in advance. Thank you!! 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) Hypokalemia (Acute) COPD (chronic obstructive pulmonary disease) (Chronic) DVT prophylaxis (Acute) CVA (cerebral vascular accident) (Chronic) COVID-19 (Acute) COPD exacerbation (Acute) Acute respiratory failure with hypoxia (Acute) HTN (hypertension) (Chronic) BPH (benign prostatic hyperplasia) (Chronic) Dehydration (Acute) Sepsis (Acute) Acute metabolic encephalopathy (Acute) Atrial fibrillation with RVR (Acute) Atrial fibrillation (Chronic) Systolic heart failure (Chronic) GERD (gastroesophageal reflux disease) (Chronic) Hemoptysis (Acute) Multifocal pneumonia (Acute) Pneumonia due to COVID-19 virus (Acute) DVT prophylaxis (Acute) Heart failure with preserved ejection fraction (Chronic) CVA (cerebral vascular accident) (Chronic) Secondary bacterial pneumonia (Acute) Paroxysmal atrial fibrillation (Chronic) Physical deconditioning (Acute) Adjustment disorder with mixed anxiety and depressed mood (Acute) Constipation (Acute) Shortness of breath (Acute) Pulmonary embolism (Acute) Palpitations (Acute) CAD (coronary artery disease) (Acute) Hypomagnesemia (Acute) Elevated troponin (Acute) Loculated pleural effusion (Chronic) Obstructive uropathy (Acute) Ureteral stone with hydronephrosis (Acute) Hypertensive urgency (Acute) Hematuria (Acute) Renal insufficiency (Acute) MARYLOU (acute kidney injury) (Acute) Pharmacist Visit Note: Mick Cottrell was questioned extensively about any missed dosages, any exercise or lifestyle changes, new medication regimens, any changes in diet or increased/decreased vitamin K foods, any bleeding issues, any illnesses including any nausea, vomiting or diarrhea as well as any upcoming surgeries or procedures. Patient denies any further changes. Total time spent: 15 minutes Diandra Arechiga PharmD. - Dosing Schedule Changes made to dosing schedule?: Yes Warfarin Strength: 4mg Daily Dose (Sun): 4 # of Tablets (Sun): 1 Daily Dose (Mon): 4 # of Tablets (Mon): 1 Daily Dose (Tue): 4 # of Tablets (Tue): 1 Daily Dose (Wed): 4 # of Tablets (Wed): 1 Daily Dose (Kenna): 4 # of Tablets (Kenna): 1 Daily Dose (Fri): 4 # of Tablets (Fri): 1 Daily Dose (Sat): 4 # of Tablets (Sat): 1 Total Doses (mg): 28 Reason for dosing changes: Low INR Follow up visit requested: 1 week Documented By: Diandra Arechiga Signed By: 09/06/21 0850 DD/ 0849 Initialized By: [id number] [facility] POC PT and INR (office)on 09-06-2021 POC INR Result (office) 1.9 [facility] Comment on above: Result Comment: For patients on oral anticoagulants, the therapeutic INR reference range is 2.0 to 3.5 Performed By: #### B MP #### [facility] [address] [place] [address] POC PT Result (office) 22.9 seconds High 9.4-12.1 [facility] Comment on above: Performed By: #### B MP #### [facility] [address] [place], [place] [id number] POC PT and INR (office)on 08-24-2021 POC INR Result (office) 3.0 Normal [facility] Comment on above: Result Comment: For patients on oral anticoagulants, the therapeutic INR reference range is 2.0 to 3.5 Performed By: #### L IP, HEPATIC, BMP, ROSSY #### [facility] [address] [place] [id number] POC PT Result (office) 36.5 seconds High 9.4-12.1 [facility] Comment on above: Performed By: #### L IP, HEPATIC, BMP, ROSSY #### [facility] [address] [place] [address] [facility] [address] [address] [facility] Signed PRELIMINARY DRAFT REPORT UNTIL ELECTRONICALLY SIGNED PATIENT: Mick Cottrell MR#: [id number] : 1940 AGE/SEX: 80 / M ADMITTED: 08/23/21 OUTSIDE LOCN: LOCATION: [facility] ATTENDING: Grace Gtz MD cc: ; Anti-Coagulation History Referring Physician: Grace Gtz Supervising Clinician: Jose Jordan Medical history: cancer, COPD, CVA, diabetes, GERD, hyperlipidemia, hypertension Additional medical history PMH: right lung drainage - pt reports 1800cc of drainage from "center sac" of lung Male Surgical History: cataract, herniorrhaphy, sinus surgery, tonsillectomy Female Surgical History: heart valve replacement (Aortic valve replacement) Additional surgical history PMH: lung drained, tonsillectomy, nasal surgery, loop recorder removal. heart valve replacement - cow valve Psychiatric history: depression Smoking Status: Former smoker Smokeless Tobacco Status: No Alcohol use PMH: none Drug use: none Occupational status: retired Symptom of primary event: [place] says he uses a pillbox but has forgotten a "couple" of doses this week but doesn't know exactly how many, has had some blood in spit. Advised to contact PCP next door immediately after this visit. Will reduce as he is at the top of his range. Finger Stick INR: 3 INR Range: 2-3 (CVA) Specimen Processed (Date): 08/23/21 Specimen Processed (Time): 09:02 Missed doses: Yes (says he's missed a couple but doesn't know how many exactly) Symptoms: bleeding (has had some blood in spit. ) Patient Instructions: Begin taking your Coumadin according to the dosage schedule listed above. Have a great week and I'll see you soon. IT IS EXTREMELY IMPORTANT THAT YOU NOTIFY OUR OFFICE OF ALL MEDICATION CHANGES ON THE DAY THAT THEY OCCUR. IF THE CHANGE SHOULD OCCUR AFTER HOURS OR ON THE WEEKEND, SELECT OPTION #2 AND YOUR CALL WILL BE TRANSFERRED TO THE INPATIENT PHARMACIST FOR ASSISTANCE. Also make us aware of any illnesses that give you diarrhea or vomiting. Thank you! Please do not arrive more than 10 minutes prior to your scheduled appointment. Cancellation notice must be provided at least 24 hours in advance. Thank you!! 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) Hypokalemia (Acute) COPD (chronic obstructive pulmonary disease) (Chronic) DVT prophylaxis (Acute) CVA (cerebral vascular accident) (Chronic) COVID-19 (Acute) COPD exacerbation (Acute) Acute respiratory failure with hypoxia (Acute) HTN (hypertension) (Chronic) BPH (benign prostatic hyperplasia) (Chronic) Dehydration (Acute) Sepsis (Acute) Acute metabolic encephalopathy (Acute) Atrial fibrillation with RVR (Acute) Atrial fibrillation (Chronic) Systolic heart failure (Chronic) GERD (gastroesophageal reflux disease) (Chronic) Hemoptysis (Acute) Multifocal pneumonia (Acute) Pneumonia due to COVID-19 virus (Acute) DVT prophylaxis (Acute) Heart failure with preserved ejection fraction (Chronic) CVA (cerebral vascular accident) (Chronic) Secondary bacterial pneumonia (Acute) Paroxysmal atrial fibrillation (Chronic) Physical deconditioning (Acute) Adjustment disorder with mixed anxiety and depressed mood (Acute) Constipation (Acute) Shortness of breath (Acute) Pulmonary embolism (Acute) Palpitations (Acute) CAD (coronary artery disease) (Acute) Hypomagnesemia (Acute) Elevated troponin (Acute) Loculated pleural effusion (Chronic) Obstructive uropathy (Acute) Ureteral stone with hydronephrosis (Acute) Hypertensive urgency (Acute) Hematuria (Acute) Renal insufficiency (Acute) MARYLOU (acute kidney injury) (Acute) Pharmacist Visit Note: Mick Cottrell was questioned extensively about any missed dosages, any exercise or lifestyle changes, new medication regimens, any changes in diet or increased/decreased vitamin K foods, any bleeding issues, any illnesses including any nausea, vomiting or diarrhea as well as any upcoming surgeries or procedures. Patient denies any further changes. Total time spent: 15 minutes Piyush Sales PharmD. - Dosing Schedule Changes made to dosing schedule?: Yes Warfarin Strength: 4mg Daily Dose (Sun): 4 # of Tablets (Sun): 1 Daily Dose (Mon): 4 # of Tablets (Mon): 1 Daily Dose (Tue): 4 # of Tablets (Tue): 1 Daily Dose (Wed): 4 # of Tablets (Wed): 1 Daily Dose (Kenna): 2 # of Tablets (Kenna): 0.5 Daily Dose (Sat): 4 # of Tablet (more content not included)... Normal [facility] [address] [address] [facility] Signed PRELIMINARY DRAFT REPORT UNTIL ELECTRONICALLY SIGNED PATIENT: Mick Cottrell MR#: [id number] : 1940 AGE/SEX: 80 / M ADMITTED: 08/02/21 OUTSIDE LOCN: LOCATION: [facility] ATTENDING: Grace Gtz MD cc: ; Anti-Coagulation History Referring Physician: Grace Gtz Supervising Clinician: Jose Jordan Medical history: cancer, COPD, CVA, diabetes, GERD, hyperlipidemia, hypertension Additional medical history PMH: right lung drainage - pt reports 1800cc of drainage from "center sac" of lung Male Surgical History: cataract, herniorrhaphy, sinus surgery, tonsillectomy Female Surgical History: heart valve replacement (Aortic valve replacement) Additional surgical history PMH: lung drained, tonsillectomy, nasal surgery, loop recorder removal. heart valve replacement - cow valve Psychiatric history: depression Smoking Status: Former smoker Smokeless Tobacco Status: No Alcohol use PMH: none Drug use: none Occupational status: retired Finger Stick INR: 2.4 INR Range: 2-3 (CVA) Specimen Processed (Date): 08/02/21 Specimen Processed (Time): 08:50 Patient Instructions: Keep taking the same amount of Coumadin as you have been taking. Have a great week and I'll see you soon. IT IS EXTREMELY IMPORTANT THAT YOU NOTIFY OUR OFFICE OF ALL MEDICATION CHANGES ON THE DAY THAT THEY OCCUR. IF THE CHANGE SHOULD OCCUR AFTER HOURS OR ON THE WEEKEND, SELECT OPTION #2 AND YOUR CALL WILL BE TRANSFERRED TO THE INPATIENT PHARMACIST FOR ASSISTANCE. Also make us aware of any illnesses that give you diarrhea or vomiting. Please do not arrive more than 10 minutes prior to your scheduled appointment. Cancellation notice must be provided at least 24 hours in advance. Thank you!! If you are experiencing a bleeding emergency and the voicemail is not picking up, please contact our toll free number at: . Diandra DillonD. 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) Hypokalemia (Acute) COPD (chronic obstructive pulmonary disease) (Chronic) DVT prophylaxis (Acute) CVA (cerebral vascular accident) (Chronic) COVID-19 (Acute) COPD exacerbation (Acute) Acute respiratory failure with hypoxia (Acute) HTN (hypertension) (Chronic) BPH (benign prostatic hyperplasia) (Chronic) Dehydration (Acute) Sepsis (Acute) Acute metabolic encephalopathy (Acute) Atrial fibrillation with RVR (Acute) Atrial fibrillation (Chronic) Systolic heart failure (Chronic) GERD (gastroesophageal reflux disease) (Chronic) Hemoptysis (Acute) Multifocal pneumonia (Acute) Pneumonia due to COVID-19 virus (Acute) DVT prophylaxis (Acute) Heart failure with preserved ejection fraction (Chronic) CVA (cerebral vascular accident) (Chronic) Secondary bacterial pneumonia (Acute) Paroxysmal atrial fibrillation (Chronic) Physical deconditioning (Acute) Adjustment disorder with mixed anxiety and depressed mood (Acute) Constipation (Acute) Shortness of breath (Acute) Pulmonary embolism (Acute) Palpitations (Acute) CAD (coronary artery disease) (Acute) Hypomagnesemia (Acute) Elevated troponin (Acute) Loculated pleural effusion (Chronic) Obstructive uropathy (Acute) Ureteral stone with hydronephrosis (Acute) Hypertensive urgency (Acute) Hematuria (Acute) Renal insufficiency (Acute) MARYLOU (acute kidney injury) (Acute) Pharmacist Visit Note: Mick Cottrell was questioned extensively about any missed dosages, any exercise or lifestyle changes, new medication regimens, any changes in diet or increased/decreased vitamin K foods, any bleeding issues, any illnesses including any nausea, vomiting or diarrhea as well as any upcoming surgeries or procedures. Patient denies any further changes. Total time spent: 15 minutes Diandra Arechiga PharmD. - Dosing Schedule Changes made to dosing schedule?: No Warfarin Strength: 4mg Daily Dose (Sun): 6 # of Tablets (Sun): 1.5 Daily Dose (Mon): 4 # of Tablets (Mon): 1 Daily Dose (Tue): 4 # of Tablets (Tue): 1 Daily Dose (Wed): 4 # of Tablets (Wed): 1 Daily Dose (Kenna): 6 # of Tablets (Kenna): 1.5 Daily Dose (Fri): 4 # of Tablets (Fri): 1 Daily Dose (Sat): 4 # of Tablets (Sat): 1 Total Doses (mg): 32 Follow up visit requested: 3 weeks Documented By: Diandra Arechiga Signed By: 08/02/21 0851 DD/ 0850 Initialized By: [id number] [facility] 08-02-[address] [address] Cat Scan Report Signed PRELIMINARY DRAFT REPORT UNTIL ELECTRONICALLY SIGNED PATIENT: Mick Cottrell MR#: [id number] : 1940 AGE/SEX: 80 / M ADMITTED: 08/01/21 OUTSIDE LOCN: LOCATION: [facility] ATTENDING: Grace Gtz MD ORDER PHYSICIAN: Grace Gtz BIRAD: DATE OF SERVICE: 08/01/21 FOLLOW UP: ACCESSION NUMBERS(S): [id number] PROCEDURE(S): CT chest wo con REASON FOR EXAM: MD Ordered cc: Grace Gtz; EXAMINATION: CT OF THE CHEST WITHOUT CONTRAST, 08/01/2021 12:54 pm TECHNIQUE: CT of the chest was performed without the administration of intravenous contrast. Multiplanar reformatted images are provided for review. Automated exposure control, iterative reconstruction, and/or weight based adjustment of the mA/kV was utilized to reduce the radiation dose to as low as reasonably achievable. COMPARISON: May 04, 2021, March 28, 2020 HISTORY: ORDERING SYSTEM PROVIDED HISTORY: Lung nodule follow-up FINDINGS: Mediastinum: Status post median sternotomy and aortic valvuloplasty. Heart size is normal. No pericardial effusion. There are coronary artery calcifications. Within the limitations of a noncontrast exam, there is no evidence of hilar adenopathy. Coarsely calcified left hilar nodes. Borderline enlarged precarinal lymph node is stable. Visible portion of the thyroid is unremarkable. Lungs/pleura: Moderate centrilobular emphysema. There is mucus in the dependent portion of the tracheal lumen. No bronchiectasis or appreciable bronchial wall thickening. Plate-like nodular consolidation between the right upper and right middle lobe, along the minor fissure measures 1.6 x 1.3 x 0.6 cm (transverse by AP by craniocaudal). This is the same finding which was seen on CT of May 04, 2021, at which time it measured 1.7 x 1.5 x 0.6 cm. By size, there has been no significant interval change. Upper Abdomen: Gallbladder is absent. Hepatic steatosis. There are calcified granulomas in the spleen. Diffuse thickening of the left adrenal gland without focal nodularity. Right adrenal gland is grossly unremarkable but not completely imaged on this exam. Soft Tissues/Bones: No aggressive lytic or blastic bony lesion. Bones are osteopenic. CT/CT chest wo con IMPRESSION: 1. Persistent plate-like nodular density between the right upper and right middle lobe, along the minor fissure. By size, there has been no significant interval change since exam of May 04, 2021. Compared to older exam of May 17, 2020, the nodular density is in the same location as a previously seen loculated complex fluid collection. Differential includes scarring; however, malignancy is still in the differential. Continued follow-up is indicated to assess long-term stability, if PET-CT and/or tissue diagnosis is not done. 2. Centrilobular emphysema. D/ / 08/02/2021 08:21:18 Cristian De León MD / trisha Interpreting Provider: Cristian De León MD Normal [facility] POC PT and INR (office)on 08-02-2021 POC INR Result (office) 2.4 Normal [facility] Comment on above: Result Comment: For patients on oral anticoagulants, the therapeutic INR reference range is 2.0 to 3.5 Performed By: #### P OCPTINR ####[facility] [id number] [place], [place] [id number] POC PT Result (office) 29.3 seconds High 9.4-12.1 [facility] Comment on above: Performed By: #### P OCPTINR ####[facility] [id number] [place] [address] [facility] [address] [address] [facility] Signed PRELIMINARY DRAFT REPORT UNTIL ELECTRONICALLY SIGNED PATIENT: Mick Cottrell MR#: [id number] : 1940 AGE/SEX: 80 / M ADMITTED: 07/19/21 OUTSIDE LOCN: LOCATION: [facility] ATTENDING: Grace Gtz MD cc: ; Anti-Coagulation History Referring Physician: Grace Gtz Supervising Clinician: Jose Jordan Medical history: cancer, COPD, CVA, diabetes, GERD, hyperlipidemia, hypertension Additional medical history PMH: right lung drainage - pt reports 1800cc of drainage from "center sac" of lung Male Surgical History: cataract, herniorrhaphy, sinus surgery, tonsillectomy Female Surgical History: heart valve replacement (Aortic valve replacement) Additional surgical history PMH: lung drained, tonsillectomy, nasal surgery, loop recorder removal. heart valve replacement - cow valve Psychiatric history: depression Smoking Status: Former smoker Smokeless Tobacco Status: No Alcohol use PMH: none Drug use: none Occupational status: retired Finger Stick INR: 2.5 INR Range: 2-3 (CVA) Specimen Processed (Date): 07/19/21 Specimen Processed (Time): 09:17 Patient Instructions: Keep taking the same amount of Coumadin as you have been taking. Have a great week and I'll see you soon. IT IS EXTREMELY IMPORTANT THAT YOU NOTIFY OUR OFFICE OF ALL MEDICATION CHANGES ON THE DAY THAT THEY OCCUR. IF THE CHANGE SHOULD OCCUR AFTER HOURS OR ON THE WEEKEND, SELECT OPTION #2 AND YOUR CALL WILL BE TRANSFERRED TO THE INPATIENT PHARMACIST FOR ASSISTANCE. Also make us aware of any illnesses that give you diarrhea or vomiting. Please do not arrive more than 10 minutes prior to your scheduled appointment. Cancellation notice must be provided at least 24 hours in advance. Thank you!! If you are experiencing a bleeding emergency and the voicemail is not picking up, please contact our toll free number at: . Diandra DillonD. 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) Hypokalemia (Acute) COPD (chronic obstructive pulmonary disease) (Chronic) DVT prophylaxis (Acute) CVA (cerebral vascular accident) (Chronic) COVID-19 (Acute) COPD exacerbation (Acute) Acute respiratory failure with hypoxia (Acute) HTN (hypertension) (Chronic) BPH (benign prostatic hyperplasia) (Chronic) Dehydration (Acute) Sepsis (Acute) Acute metabolic encephalopathy (Acute) Atrial fibrillation with RVR (Acute) Atrial fibrillation (Chronic) Systolic heart failure (Chronic) GERD (gastroesophageal reflux disease) (Chronic) Hemoptysis (Acute) Multifocal pneumonia (Acute) Pneumonia due to COVID-19 virus (Acute) DVT prophylaxis (Acute) Heart failure with preserved ejection fraction (Chronic) CVA (cerebral vascular accident) (Chronic) Secondary bacterial pneumonia (Acute) Paroxysmal atrial fibrillation (Chronic) Physical deconditioning (Acute) Adjustment disorder with mixed anxiety and depressed mood (Acute) Constipation (Acute) Shortness of breath (Acute) Pulmonary embolism (Acute) Palpitations (Acute) CAD (coronary artery disease) (Acute) Hypomagnesemia (Acute) Elevated troponin (Acute) Loculated pleural effusion (Chronic) Obstructive uropathy (Acute) Ureteral stone with hydronephrosis (Acute) Hypertensive urgency (Acute) Hematuria (Acute) Renal insufficiency (Acute) MARYLOU (acute kidney injury) (Acute) Pharmacist Visit Note: Mick Cottrell was questioned extensively about any missed dosages, any exercise or lifestyle changes, new medication regimens, any changes in diet or increased/decreased vitamin K foods, any bleeding issues, any illnesses including any nausea, vomiting or diarrhea as well as any upcoming surgeries or procedures. Patient denies any further changes. Total time spent: 15 minutes Diandra Arechiga PharmD. - Dosing Schedule Changes made to dosing schedule?: No Warfarin Strength: 4mg Daily Dose (Sun): 6 # of Tablets (Sun): 1.5 Daily Dose (Mon): 4 # of Tablets (Mon): 1 Daily Dose (Tue): 4 # of Tablets (Tue): 1 Daily Dose (Wed): 4 # of Tablets (Wed): 1 Daily Dose (Kenna): 6 # of Tablets (Kenna): 1.5 Daily Dose (Fri): 4 # of Tablets (Fri): 1 Daily Dose (Sat): 4 # of Tablets (Sat): 1 Total Doses (mg): 32 Follow up visit requested: 2 weeks Documented By: Diandra Arechiga Signed By: 07/19/21916 DD/ 0916 Initialized By: [id number] [facility] POC PT and INR (office)on 07-19-2021 POC INR Result (office) 2.5 [facility] Comment on above: Result Comment: For patients on oral anticoagulants, the therapeutic INR reference range is 2.0 to 3.5 Performed By: #### P OCPTINR ####[facility] [id number] [place] [address] POC PT Result (office) 30.1 seconds High 9.4-12.1 [facility] Comment on above: Performed By: #### P OCPTINR ####[facility] [id number] [place] [address] [facility] [address] [address] [facility] Signed PRELIMINARY DRAFT REPORT UNTIL ELECTRONICALLY SIGNED PATIENT: Mick Cottrell MR#: [id number] : 1940 AGE/SEX: 80 / M ADMITTED: 07/12/21 OUTSIDE LOCN: LOCATION: [facility] ATTENDING: Grace Gtz MD cc: ; Anti-Coagulation History Referring Physician: Grace Gtz Supervising Clinician: Jose Jordan Medical history: cancer, COPD, CVA, diabetes, GERD, hyperlipidemia, hypertension Additional medical history PMH: right lung drainage - pt reports 1800cc of drainage from "center sac" of lung Male Surgical History: cataract, herniorrhaphy, sinus surgery, tonsillectomy Female Surgical History: heart valve replacement (Aortic valve replacement) Additional surgical history PMH: lung drained, tonsillectomy, nasal surgery, loop recorder removal. heart valve replacement - cow valve Psychiatric history: depression Smoking Status: Former smoker Smokeless Tobacco Status: No Alcohol use PMH: none Drug use: none Occupational status: retired Finger Stick INR: 2.1 INR Range: 2-3 (CVA) Specimen Processed (Date): 07/12/21 Specimen Processed (Time): 09:44 Patient Instructions: Keep taking the same amount of Coumadin as you have been taking. Have a great week and I'll see you soon. IT IS EXTREMELY IMPORTANT THAT YOU NOTIFY OUR OFFICE OF ALL MEDICATION CHANGES ON THE DAY THAT THEY OCCUR. IF THE CHANGE SHOULD OCCUR AFTER HOURS OR ON THE WEEKEND, SELECT OPTION #2 AND YOUR CALL WILL BE TRANSFERRED TO THE INPATIENT PHARMACIST FOR ASSISTANCE. Also make us aware of any illnesses that give you diarrhea or vomiting. Please do not arrive more than 10 minutes prior to your scheduled appointment. Cancellation notice must be provided at least 24 hours in advance. Thank you!! If you are experiencing a bleeding emergency and the voicemail is not picking up, please contact our toll free number at: . Diandra Arechiga PharmD. 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) Hypokalemia (Acute) COPD (chronic obstructive pulmonary disease) (Chronic) DVT prophylaxis (Acute) CVA (cerebral vascular accident) (Chronic) COVID-19 (Acute) COPD exacerbation (Acute) Acute respiratory failure with hypoxia (Acute) HTN (hypertension) (Chronic) BPH (benign prostatic hyperplasia) (Chronic) Dehydration (Acute) Sepsis (Acute) Acute metabolic encephalopathy (Acute) Atrial fibrillation with RVR (Acute) Atrial fibrillation (Chronic) Systolic heart failure (Chronic) GERD (gastroesophageal reflux disease) (Chronic) Hemoptysis (Acute) Multifocal pneumonia (Acute) Pneumonia due to COVID-19 virus (Acute) DVT prophylaxis (Acute) Heart failure with preserved ejection fraction (Chronic) CVA (cerebral vascular accident) (Chronic) Secondary bacterial pneumonia (Acute) Paroxysmal atrial fibrillation (Chronic) Physical deconditioning (Acute) Adjustment disorder with mixed anxiety and depressed mood (Acute) Constipation (Acute) Shortness of breath (Acute) Pulmonary embolism (Acute) Palpitations (Acute) CAD (coronary artery disease) (Acute) Hypomagnesemia (Acute) Elevated troponin (Acute) Loculated pleural effusion (Chronic) Obstructive uropathy (Acute) Ureteral stone with hydronephrosis (Acute) Hypertensive urgency (Acute) Hematuria (Acute) Renal insufficiency (Acute) MARYLOU (acute kidney injury) (Acute) Pharmacist Visit Note: Mick Cottrell was questioned extensively about any missed dosages, any exercise or lifestyle changes, new medication regimens, any changes in diet or increased/decreased vitamin K foods, any bleeding issues, any illnesses including any nausea, vomiting or diarrhea as well as any upcoming surgeries or procedures. Patient denies any further changes. Total time spent: 15 minutes Diandra Arechiga PharmD. - Dosing Schedule Changes made to dosing schedule?: No Warfarin Strength: 4mg Daily Dose (Sun): 6 # of Tablets (Sun): 1.5 Daily Dose (Mon): 4 # of Tablets (Mon): 1 Daily Dose (e): 4 # of Tablets (Tue): 1 Daily Dose (Wed): 4 # of Tablets (Wed): 1 Daily Dose (Kenna): 6 # of Tablets (Kenna): 1.5 Daily Dose (Fri): 4 # of Tablets (Fri): 1 Daily Dose (Sat): 4 # of Tablets (Sat): 1 Total Doses (mg): 32 Follow up visit requested: 1 week Documented By: Diandra Arechiga Signed By: 07/12/21943 DD/ 3 Initialized By: [id number] [facility] POC PT and INR (office)on 07-12-2021 POC INR Result (office) 2.1 [facility] Comment on above: Result Comment: For patients on oral anticoagulants, the therapeutic INR reference range is 2.0 to 3.5 Performed By: #### L IP, HEPATIC, BMP, ROSSY #### [facility] [address] [place] [id number] POC PT Result (office) 24.7 seconds High 9.4-12.1 [facility] Comment on above: Performed By: #### L IP, HEPATIC, BMP, ROSSY #### [facility] [address] [place] [address] [facility] [address] [address] [facility] Signed PRELIMINARY DRAFT REPORT UNTIL ELECTRONICALLY SIGNED PATIENT: Mick Cottrell MR#: [id number] : 1940 AGE/SEX: 80 / M ADMITTED: 07/05/21 OUTSIDE LOCN: LOCATION: [facility] ATTENDING: Grace Gtz MD cc: ; Anti-Coagulation History Referring Physician: Grace Gtz Supervising Clinician: Jose Jordan Medical history: cancer, COPD, CVA, diabetes, GERD, hyperlipidemia, hypertension Additional medical history PMH: right lung drainage - pt reports 1800cc of drainage from "center sac" of lung Male Surgical History: cataract, herniorrhaphy, sinus surgery, tonsillectomy Female Surgical History: heart valve replacement (Aortic valve replacement) Additional surgical history PMH: lung drained, tonsillectomy, nasal surgery, loop recorder removal. heart valve replacement - cow valve Psychiatric history: depression Smoking Status: Former smoker Smokeless Tobacco Status: No Alcohol use PMH: none Drug use: none Occupational status: retired Finger Stick INR: 1.8 Is Bridging Therapy Indicated: No INR Range: 2-3 (CVA) Specimen Processed (Date): 07/05/21 Specimen Processed (Time): 09:07 Patient Instructions: Begin taking your Coumadin according to the dosage schedule listed above. Have a great week and I'll see you soon. IT IS EXTREMELY IMPORTANT THAT YOU NOTIFY OUR OFFICE OF ALL MEDICATION CHANGES ON THE DAY THAT THEY OCCUR. IF THE CHANGE SHOULD OCCUR AFTER HOURS OR ON THE WEEKEND, SELECT OPTION #2 AND YOUR CALL WILL BE TRANSFERRED TO THE INPATIENT PHARMACIST FOR ASSISTANCE. Also make us aware of any illnesses that give you diarrhea or vomiting. Thank you! Please do not arrive more than 10 minutes prior to your scheduled appointment. Cancellation notice must be provided at least 24 hours in advance. Thank you!! 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) Hypokalemia (Acute) COPD (chronic obstructive pulmonary disease) (Chronic) DVT prophylaxis (Acute) CVA (cerebral vascular accident) (Chronic) COVID-19 (Acute) COPD exacerbation (Acute) Acute respiratory failure with hypoxia (Acute) HTN (hypertension) (Chronic) BPH (benign prostatic hyperplasia) (Chronic) Dehydration (Acute) Sepsis (Acute) Acute metabolic encephalopathy (Acute) Atrial fibrillation with RVR (Acute) Atrial fibrillation (Chronic) Systolic heart failure (Chronic) GERD (gastroesophageal reflux disease) (Chronic) Hemoptysis (Acute) Multifocal pneumonia (Acute) Pneumonia due to COVID-19 virus (Acute) DVT prophylaxis (Acute) Heart failure with preserved ejection fraction (Chronic) CVA (cerebral vascular accident) (Chronic) Secondary bacterial pneumonia (Acute) Paroxysmal atrial fibrillation (Chronic) Physical deconditioning (Acute) Adjustment disorder with mixed anxiety and depressed mood (Acute) Constipation (Acute) Shortness of breath (Acute) Pulmonary embolism (Acute) Palpitations (Acute) CAD (coronary artery disease) (Acute) Hypomagnesemia (Acute) Elevated troponin (Acute) Loculated pleural effusion (Chronic) Obstructive uropathy (Acute) Ureteral stone with hydronephrosis (Acute) Hypertensive urgency (Acute) Hematuria (Acute) Renal insufficiency (Acute) MARYLOU (acute kidney injury) (Acute) Pharmacist Visit Note: Mick Cottrell was questioned extensively about any missed dosages, any exercise or lifestyle changes, new medication regimens, any changes in diet or increased/decreased vitamin K foods, any bleeding issues, any illnesses including any nausea, vomiting or diarrhea as well as any upcoming surgeries or procedures. Patient denies any further changes. Total time spent: 15 minutes Piyush Sales PharmD. - Dosing Schedule Changes made to dosing schedule?: Yes Warfarin Strength: 4mg Daily Dose (Sun): 6 # of Tablets (Sun): 1.5 Daily Dose (Mon): 4 # of Tablets (Mon): 1 Daily Dose (Tue): 4 # of Tablets (Tue): 1 Daily Dose (Wed): 4 # of Tablets (Wed): 1 Daily Dose (Kenna): 6 # of Tablets (Kenna): 1.5 Daily Dose (Fri): 4 # of Tablets (Fri): 1 Daily Dose (Sat): 4 # of Tablets (Sat): 1 Total Doses (mg): 32 Reason for dosing changes: 2 subtherapeutic levels in a row. Documented By: Piyush Sales Signed By: 07/05/21 0908 DD/ 0904 Initialized By: [id number] [facility] POC PT and INR (office)on 07-05-2021 POC INR Result (office) 1.8 [facility] Comment on above: Result Comment: For patients on oral anticoagulants, the therapeutic INR reference range is 2.0 to 3.5 Performed By: #### L IP, HEPATIC, BMP, ROSSY #### [facility] [address] [place] [address] POC PT Result (office) 21.1 seconds High 9.4-12.1 [facility] Comment on above: Performed By: #### L IP, HEPATIC, BMP, ROSSY #### [facility] [address] [place] [id number] [facility] [address] [address] [facility] Signed PRELIMINARY DRAFT REPORT UNTIL ELECTRONICALLY SIGNED PATIENT: Mick Cottrell MR#: [id number] : 1940 AGE/SEX: 80 / M ADMITTED: 06/21/21 OUTSIDE LOCN: LOCATION: [facility] ATTENDING: Grace Gtz MD cc: ; Anti-Coagulation History Referring Physician: Grace Gzt Supervising Clinician: Jose Jordan Medical history: cancer, COPD, CVA, diabetes, GERD, hyperlipidemia, hypertension Additional medical history PMH: right lung drainage - pt reports 1800cc of drainage from "center sac" of lung Male Surgical History: cataract, herniorrhaphy, sinus surgery, tonsillectomy Female Surgical History: heart valve replacement (Aortic valve replacement) Additional surgical history PMH: lung drained, tonsillectomy, nasal surgery, loop recorder removal. heart valve replacement - cow valve Psychiatric history: depression Smoking Status: Former smoker Smokeless Tobacco Status: No Alcohol use PMH: none Drug use: none Occupational status: retired Finger Stick INR: 1.9 Is Bridging Therapy Indicated: No INR Range: 2-3 (CVA) Specimen Processed (Date): 06/21/21 Specimen Processed (Time): 09:02 Missed doses: Yes (missed 1 dose) Patient Instructions: Begin taking your Coumadin according to the dosage schedule listed above. Have a great week and I'll see you soon. IT IS EXTREMELY IMPORTANT THAT YOU NOTIFY OUR OFFICE OF ALL MEDICATION CHANGES ON THE DAY THAT THEY OCCUR. IF THE CHANGE SHOULD OCCUR AFTER HOURS OR ON THE WEEKEND, SELECT OPTION #2 AND YOUR CALL WILL BE TRANSFERRED TO THE INPATIENT PHARMACIST FOR ASSISTANCE. Also make us aware of any illnesses that give you diarrhea or vomiting. Thank you! Please do not arrive more than 10 minutes prior to your scheduled appointment. Cancellation notice must be provided at least 24 hours in advance. Thank you!! 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) Hypokalemia (Acute) COPD (chronic obstructive pulmonary disease) (Chronic) DVT prophylaxis (Acute) CVA (cerebral vascular accident) (Chronic) COVID-19 (Acute) COPD exacerbation (Acute) Acute respiratory failure with hypoxia (Acute) HTN (hypertension) (Chronic) BPH (benign prostatic hyperplasia) (Chronic) Dehydration (Acute) Sepsis (Acute) Acute metabolic encephalopathy (Acute) Atrial fibrillation with RVR (Acute) Atrial fibrillation (Chronic) Systolic heart failure (Chronic) GERD (gastroesophageal reflux disease) (Chronic) Hemoptysis (Acute) Multifocal pneumonia (Acute) Pneumonia due to COVID-19 virus (Acute) DVT prophylaxis (Acute) Heart failure with preserved ejection fraction (Chronic) CVA (cerebral vascular accident) (Chronic) Secondary bacterial pneumonia (Acute) Paroxysmal atrial fibrillation (Chronic) Physical deconditioning (Acute) Adjustment disorder with mixed anxiety and depressed mood (Acute) Constipation (Acute) Shortness of breath (Acute) Pulmonary embolism (Acute) Palpitations (Acute) CAD (coronary artery disease) (Acute) Hypomagnesemia (Acute) Elevated troponin (Acute) Loculated pleural effusion (Chronic) Obstructive uropathy (Acute) Ureteral stone with hydronephrosis (Acute) Hypertensive urgency (Acute) Hematuria (Acute) Renal insufficiency (Acute) MARYLOU (acute kidney injury) (Acute) Pharmacist Visit Note: Mick Cottrell was questioned extensively about any missed dosages, any exercise or lifestyle changes, new medication regimens, any changes in diet or increased/decreased vitamin K foods, any bleeding issues, any illnesses including any nausea, vomiting or diarrhea as well as any upcoming surgeries or procedures. Patient denies any further changes. Total time spent: 15 minutes Aminah Stevenson PharmD. - Dosing Schedule Changes made to dosing schedule?: No Warfarin Strength: 4mg Daily Dose (Sun): 4 # of Tablets (Sun): 1 Daily Dose (Mon): 4 # of Tablets (Mon): 1 Daily Dose (Tue): 4 # of Tablets (Tue): 1 Daily Dose (Wed): 4 # of Tablets (Wed): 1 Daily Dose (Kenna): 4 # of Tablets (Kenna): 1 Daily Dose (Fri): 4 # of Tablets (Fri): 1 Daily Dose (Sat): 4 # of Tablets (Sat): 1 Total Doses (mg): 28 Documented By: Aminah Stevenson Signed By: 06/21/21904 DD/ 1 Initialized By: [id number] [facility] POC PT and INR (office)on 06-21-2021 POC INR Result (office) 1.9 [facility] Comment on above: Result Comment: For patients on oral anticoagulants, the therapeutic INR reference range is 2.0 to 3.5 Performed By: #### L IP, HEPATIC, BMP, ROSSY #### [facility] [address] [place] [id number] POC PT Result (office) 23.2 seconds High 9.4-12.1 [facility] Comment on above: Performed By: #### L IP, HEPATIC, BMP, ROSSY #### [facility] [address] [place] [address] [facility] [address] [address] [facility] Signed PRELIMINARY DRAFT REPORT UNTIL ELECTRONICALLY SIGNED PATIENT: Mick Cottrell MR#: [id number] : 1940 AGE/SEX: 80 / M ADMITTED: 06/07/21 OUTSIDE LOCN: LOCATION: [facility] ATTENDING: Grace Gtz MD cc: ; Anti-Coagulation History Referring Physician: Grace Gtz Supervising Clinician: Jose Jordan Medical history: cancer, COPD, CVA, diabetes, GERD, hyperlipidemia, hypertension Additional medical history PMH: right lung drainage - pt reports 1800cc of drainage from "center sac" of lung Male Surgical History: cataract, herniorrhaphy, sinus surgery, tonsillectomy Female Surgical History: heart valve replacement (Aortic valve replacement) Additional surgical history PMH: lung drained, tonsillectomy, nasal surgery, loop recorder removal. heart valve replacement - cow valve Psychiatric history: depression Smoking Status: Former smoker Smokeless Tobacco Status: No Alcohol use PMH: none Drug use: none Occupational status: retired Finger Stick INR: 3 INR Range: 2-3 (CVA) Specimen Processed (Date): 06/07/21 Specimen Processed (Time): 08:43 Patient Instructions: Keep taking the same amount of Coumadin as you have been taking. Have a great week and I'll see you soon. IT IS EXTREMELY IMPORTANT THAT YOU NOTIFY OUR OFFICE OF ALL MEDICATION CHANGES ON THE DAY THAT THEY OCCUR. IF THE CHANGE SHOULD OCCUR AFTER HOURS OR ON THE WEEKEND, SELECT OPTION #2 AND YOUR CALL WILL BE TRANSFERRED TO THE INPATIENT PHARMACIST FOR ASSISTANCE. Also make us aware of any illnesses that give you diarrhea or vomiting. Please do not arrive more than 10 minutes prior to your scheduled appointment. Cancellation notice must be provided at least 24 hours in advance. Thank you!! If you are experiencing a bleeding emergency and the voicemail is not picking up, please contact our toll free number at: . Piyush DillonD. 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) Hypokalemia (Acute) COPD (chronic obstructive pulmonary disease) (Chronic) DVT prophylaxis (Acute) CVA (cerebral vascular accident) (Chronic) COVID-19 (Acute) COPD exacerbation (Acute) Acute respiratory failure with hypoxia (Acute) HTN (hypertension) (Chronic) BPH (benign prostatic hyperplasia) (Chronic) Dehydration (Acute) Sepsis (Acute) Acute metabolic encephalopathy (Acute) Atrial fibrillation with RVR (Acute) Atrial fibrillation (Chronic) Systolic heart failure (Chronic) GERD (gastroesophageal reflux disease) (Chronic) Hemoptysis (Acute) Multifocal pneumonia (Acute) Pneumonia due to COVID-19 virus (Acute) DVT prophylaxis (Acute) Heart failure with preserved ejection fraction (Chronic) CVA (cerebral vascular accident) (Chronic) Secondary bacterial pneumonia (Acute) Paroxysmal atrial fibrillation (Chronic) Physical deconditioning (Acute) Adjustment disorder with mixed anxiety and depressed mood (Acute) Constipation (Acute) Shortness of breath (Acute) Pulmonary embolism (Acute) Palpitations (Acute) CAD (coronary artery disease) (Acute) Hypomagnesemia (Acute) Elevated troponin (Acute) Loculated pleural effusion (Chronic) Obstructive uropathy (Acute) Ureteral stone with hydronephrosis (Acute) Hypertensive urgency (Acute) Hematuria (Acute) Renal insufficiency (Acute) MARYLOU (acute kidney injury) (Acute) Pharmacist Visit Note: Mick Cottrell was questioned extensively about any missed dosages, any exercise or lifestyle changes, new medication regimens, any changes in diet or increased/decreased vitamin K foods, any bleeding issues, any illnesses including any nausea, vomiting or diarrhea as well as any upcoming surgeries or procedures. Patient denies any further changes. Total time spent: 15 minutes Piyush Sales PharmD. - Dosing Schedule Changes made to dosing schedule?: No Warfarin Strength: 4mg Daily Dose (Sun): 4 # of Tablets (Sun): 1 Daily Dose (Mon): 4 # of Tablets (Mon): 1 Daily Dose (Tue): 4 # of Tablets (Tue): 1 Daily Dose (Wed): 4 # of Tablets (Wed): 1 Daily Dose (Kenna): 4 # of Tablets (Kenna): 1 Daily Dose (Fri): 4 # of Tablets (Fri): 1 Daily Dose (Sat): 4 # of Tablets (Sat): 1 Total Doses (mg): 28 Follow up visit requested: 2 weeks Documented By: Piyush Sales Signed By: 06/07/21 0844 DD/ 0843 Initialized By: [id number] [facility] POC PT and INR (office)on 06-07-2021 POC INR Result (office) 3.0 [facility] Comment on above: Result Comment: For patients on oral anticoagulants, the therapeutic INR reference range is 2.0 to 3.5 Performed By: #### L IP, HEPATIC, BMP, ROSSY #### [facility] [address] [place] [address] POC PT Result (office) 36.0 seconds High 9.4-12.1 [facility] Comment on above: Performed By: #### L IP, HEPATIC, BMP, ROSSY #### [facility] [address] [place] [id number] [facility] [address] [address] [facility] Signed PRELIMINARY DRAFT REPORT UNTIL ELECTRONICALLY SIGNED PATIENT: Mick Cottrell MR#: [id number] : 1940 AGE/SEX: 80 / M ADMITTED: 05/24/21 OUTSIDE LOCN: LOCATION: [facility] ATTENDING: Grace Gtz MD cc: ; Anti-Coagulation History Referring Physician: Grace Gtz Supervising Clinician: Jose Jordan Medical history: cancer, COPD, CVA, diabetes, GERD, hyperlipidemia, hypertension Additional medical history PMH: right lung drainage - pt reports 1800cc of drainage from "center sac" of lung Male Surgical History: cataract, herniorrhaphy, sinus surgery, tonsillectomy Female Surgical History: heart valve replacement (Aortic valve replacement) Additional surgical history PMH: lung drained, tonsillectomy, nasal surgery, loop recorder removal. heart valve replacement - cow valve Psychiatric history: depression Smoking Status: Former smoker Smokeless Tobacco Status: No Alcohol use PMH: none Drug use: none Occupational status: retired Finger Stick INR: 2 INR Range: 2-3 (CVA) Specimen Processed (Date): 05/24/21 Specimen Processed (Time): 08:54 Patient Instructions: Begin taking your Coumadin according to the dosage schedule listed above. Have a great week and I'll see you soon. IT IS EXTREMELY IMPORTANT THAT YOU NOTIFY OUR OFFICE OF ALL MEDICATION CHANGES ON THE DAY THAT THEY OCCUR. IF THE CHANGE SHOULD OCCUR AFTER HOURS OR ON THE WEEKEND, SELECT OPTION #2 AND YOUR CALL WILL BE TRANSFERRED TO THE INPATIENT PHARMACIST FOR ASSISTANCE. Also make us aware of any illnesses that give you diarrhea or vomiting. Thank you! Please do not arrive more than 10 minutes prior to your scheduled appointment. Cancellation notice must be provided at least 24 hours in advance. Thank you!! 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) Hypokalemia (Acute) COPD (chronic obstructive pulmonary disease) (Chronic) DVT prophylaxis (Acute) CVA (cerebral vascular accident) (Chronic) COVID-19 (Acute) COPD exacerbation (Acute) Acute respiratory failure with hypoxia (Acute) HTN (hypertension) (Chronic) BPH (benign prostatic hyperplasia) (Chronic) Dehydration (Acute) Sepsis (Acute) Acute metabolic encephalopathy (Acute) Atrial fibrillation with RVR (Acute) Atrial fibrillation (Chronic) Systolic heart failure (Chronic) GERD (gastroesophageal reflux disease) (Chronic) Hemoptysis (Acute) Multifocal pneumonia (Acute) Pneumonia due to COVID-19 virus (Acute) DVT prophylaxis (Acute) Heart failure with preserved ejection fraction (Chronic) CVA (cerebral vascular accident) (Chronic) Secondary bacterial pneumonia (Acute) Paroxysmal atrial fibrillation (Chronic) Physical deconditioning (Acute) Adjustment disorder with mixed anxiety and depressed mood (Acute) Constipation (Acute) Shortness of breath (Acute) Pulmonary embolism (Acute) Palpitations (Acute) CAD (coronary artery disease) (Acute) Hypomagnesemia (Acute) Elevated troponin (Acute) Loculated pleural effusion (Chronic) Obstructive uropathy (Acute) Ureteral stone with hydronephrosis (Acute) Hypertensive urgency (Acute) Hematuria (Acute) Renal insufficiency (Acute) MARYLOU (acute kidney injury) (Acute) Pharmacist Visit Note: Mick Cottrell was questioned extensively about any missed dosages, any exercise or lifestyle changes, new medication regimens, any changes in diet or increased/decreased vitamin K foods, any bleeding issues, any illnesses including any nausea, vomiting or diarrhea as well as any upcoming surgeries or procedures. Patient denies any further changes. Total time spent: 15 minutes Diandra Arechiga PharmD. - Dosing Schedule Changes made to dosing schedule?: Yes Warfarin Strength: 4mg Daily Dose (Sun): 4 # of Tablets (Sun): 1 Daily Dose (Mon): 4 # of Tablets (Mon): 1 Daily Dose (e): 4 # of Tablets (Tue): 1 Daily Dose (Wed): 4 # of Tablets (Wed): 1 Daily Dose (Kenna): 4 # of Tablets (Kenna): 1 Daily Dose (Fri): 4 # of Tablets (Fri): 1 Daily Dose (Sat): 4 # of Tablets (Sat): 1 Total Doses (mg): 28 Reason for dosing changes: 3.1 to 2 in seven days. Follow up visit requested: 1 week Documented By: Diandra Arechiga Signed By: 05/24/2154 DD/ 0853 Initialized By: [id number] [facility] POC PT and INR (office)on 05-24-2021 POC INR Result (office) 2.0 [facility] Comment on above: Result Comment: For patients on oral anticoagulants, the therapeutic INR reference range is 2.0 to 3.5 Performed By: #### P OCPTINR ####[facility] [id number] [place] [id number] POC PT Result (office) 23.9 seconds High 9.4-12.1 [facility] Comment on above: Performed By: #### P OCPTINR ####[facility] [id number] [place] [address] [facility] [address] [address] [facility] Signed PRELIMINARY DRAFT REPORT UNTIL ELECTRONICALLY SIGNED PATIENT: Mick Cottrell MR#: [id number] : 1940 AGE/SEX: 80 / M ADMITTED: 05/17/21 OUTSIDE LOCN: LOCATION: [facility] ATTENDING: Grace Gtz MD cc: ; Anti-Coagulation History Referring Physician: Grcae Gtz Supervising Clinician: Jose Jordan Medical history: cancer, COPD, CVA, diabetes, GERD, hyperlipidemia, hypertension Additional medical history PMH: right lung drainage - pt reports 1800cc of drainage from "center sac" of lung Male Surgical History: cataract, herniorrhaphy, sinus surgery, tonsillectomy Female Surgical History: heart valve replacement (Aortic valve replacement) Additional surgical history PMH: lung drained, tonsillectomy, nasal surgery, loop recorder removal. heart valve replacement - cow valve Psychiatric history: depression Smoking Status: Former smoker Smokeless Tobacco Status: No Alcohol use PMH: none Drug use: none Occupational status: retired Symptom of primary event: Fell a couple of weeks ago and went to ER. Findings were unremarkable. Finger Stick INR: 3.1 INR Range: 2-3 (CVA) Specimen Processed (Date): 05/17/21 Specimen Processed (Time): 08:46 Patient Instructions: Begin taking your Coumadin according to the dosage schedule listed above. Have a great week and I'll see you soon. IT IS EXTREMELY IMPORTANT THAT YOU NOTIFY OUR OFFICE OF ALL MEDICATION CHANGES ON THE DAY THAT THEY OCCUR. IF THE CHANGE SHOULD OCCUR AFTER HOURS OR ON THE WEEKEND, SELECT OPTION #2 AND YOUR CALL WILL BE TRANSFERRED TO THE INPATIENT PHARMACIST FOR ASSISTANCE. Also make us aware of any illnesses that give you diarrhea or vomiting. Thank you! Please do not arrive more than 10 minutes prior to your scheduled appointment. Cancellation notice must be provided at least 24 hours in advance. Thank you!! 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) Hypokalemia (Acute) COPD (chronic obstructive pulmonary disease) (Chronic) DVT prophylaxis (Acute) CVA (cerebral vascular accident) (Chronic) COVID-19 (Acute) COPD exacerbation (Acute) Acute respiratory failure with hypoxia (Acute) HTN (hypertension) (Chronic) BPH (benign prostatic hyperplasia) (Chronic) Dehydration (Acute) Sepsis (Acute) Acute metabolic encephalopathy (Acute) Atrial fibrillation with RVR (Acute) Atrial fibrillation (Chronic) Systolic heart failure (Chronic) GERD (gastroesophageal reflux disease) (Chronic) Hemoptysis (Acute) Multifocal pneumonia (Acute) Pneumonia due to COVID-19 virus (Acute) DVT prophylaxis (Acute) Heart failure with preserved ejection fraction (Chronic) CVA (cerebral vascular accident) (Chronic) Secondary bacterial pneumonia (Acute) Paroxysmal atrial fibrillation (Chronic) Physical deconditioning (Acute) Adjustment disorder with mixed anxiety and depressed mood (Acute) Constipation (Acute) Shortness of breath (Acute) Pulmonary embolism (Acute) Palpitations (Acute) CAD (coronary artery disease) (Acute) Hypomagnesemia (Acute) Elevated troponin (Acute) Loculated pleural effusion (Chronic) Obstructive uropathy (Acute) Ureteral stone with hydronephrosis (Acute) Hypertensive urgency (Acute) Hematuria (Acute) Renal insufficiency (Acute) MARYLOU (acute kidney injury) (Acute) Pharmacist Visit Note: Mick Cottrell was questioned extensively about any missed dosages, any exercise or lifestyle changes, new medication regimens, any changes in diet or increased/decreased vitamin K foods, any bleeding issues, any illnesses including any nausea, vomiting or diarrhea as well as any upcoming surgeries or procedures. Patient denies any further changes. Total time spent: 15 minutes Diandra Arechiga PharmD. - Dosing Schedule Changes made to dosing schedule?: Yes Warfarin Strength: 4mg Daily Dose (Sun): 4 # of Tablets (Sun): 1 Daily Dose (Mon): 4 # of Tablets (Mon): 1 Daily Dose (Tue): 4 # of Tablets (Tue): 1 Daily Dose (Wed): 4 # of Tablets (Wed): 1 Daily Dose (Kenna): 2 # of Tablets (Kenna): 0.5 Daily Dose (Fri): 4 # of Tablets (Fri): 1 Daily Dose (Sat): 4 # of Tablets (Sat): 1 Total Doses (mg): 26 Reason for dosing changes: Slightly elevated INR Follow up visit requested: 1 week Documented By: Diandra Arechiga Signed By: 05/17/2147 DD/ 0846 Initializ (more content not included)... Normal [facility] POC PT and INR (office)on 05-17-2021 POC INR Result (office) 3.1 Normal [facility] Comment on above: Result Comment: For patients on oral anticoagulants, the therapeutic INR reference range is 2.0 to 3.5 Performed By: #### P OCPTINR ####[facility] [id number] [place] [address] POC PT Result () 37.0 seconds High 9.4-12.1 [facility] Comment on above: Performed By: #### P OCPTINR ####[facility] [id number] [place] [address] CHESTWOon 05-04-2021 CHESTWO [facility] [address] [place] [address] Cat Scan Report Signed PRELIMINARY DRAFT REPORT UNTIL ELECTRONICALLY SIGNED PATIENT: Mick Cottrell MR#: [id number] : 1940 AGE/SEX: 80 / M ADMITTED: 05/04/21 OUTSIDE [facility]: [facility] ATTENDING: ORDER PHYSICIAN: Maximino Arthur BIRAD: DATE OF SERVICE: 05/04/21 FOLLOW UP: ACCESSION NUMBERS(S): [id number] PROCEDURE(S): CT chest wo con REASON FOR EXAM: fall; right-sided yarsanism abrasion. cc: Grace Gtz; Maximino Arthur; EXAMINATION: CT OF THE CHEST WITHOUT CONTRAST 05/04/2021 5:34 pm TECHNIQUE: CT of the chest was performed without the administration of intravenous contrast. Multiplanar reformatted images are provided for review. Dose modulation, iterative reconstruction, and/or weight based adjustment of the mA/kV was utilized to reduce the radiation dose to as low as reasonably achievable. COMPARISON: 04/27/2020 CTA chest, 01/20/2021 CT abdomen/pelvis HISTORY: ORDERING SYSTEM PROVIDED HISTORY: fall; right-sided yarsanism abrasion. FINDINGS: Chest Wall and Thoracic Inlet: No axillary or supraclavicular lymphadenopathy. The thyroid gland is unremarkable. Mediastinum and Malorie: No mediastinal or hilar lymphadenopathy. Normal caliber of the thoracic aorta. The heart is normal in size. Prior aortic valve replacement. Moderate atherosclerotic disease of the thoracic aorta without aneurysm. No pericardial effusion. Lungs/Pleura: Moderate to severe centrilobular emphysema. There is a 2.0 x 1.7 cm pulmonary nodule in the right middle lobe along the minor fissure, new from prior. Bilateral lower lobe bronchiectasis. No pleural effusion. Scattered calcified pleural plaques, suggestive of prior asbestos exposure. Upper Abdomen: Prior cholecystectomy. Calcified splenic granulomas. Nonspecific thickening of the left adrenal gland. Tiny nonobstructing stones are seen within the bilateral kidneys. Right upper pole renal cyst. Moderate to severe atherosclerosis of the visualized abdominal aorta with partially visualized mild fusiform dilation of the infrarenal abdominal aorta measuring 2.8 cm. Bones: No suspicious osseous findings. Degenerative changes of the thoracic spine. Prior median sternotomy. CT/CT chest wo con IMPRESSION: 1. There is a 2.0 cm pulmonary nodule in the right middle lobe along the minor fissure, worrisome for malignancy. See recommendations below. 2. No evidence of acute trauma within the chest. RECOMMENDATIONS: 20 mm right solid pulmonary nodule. Consider a non-contrast Chest CT at 3 months, a PET/CT, or tissue sampling. These guidelines do not apply to immunocompromised patients and patients with cancer. Follow up in patients with significant comorbidities as clinically warranted. For lung cancer screening, adhere to Lung-RADS guidelines. Reference: Radiology. 2017; 284(1):228-43. 2.8 cm infrarenal abdominal aortic aneurysm suspected. Recommend follow-up every 5 years. Reference: J Am Reji Radiol 2013;10:789-794. D/ / Sonia Joiner / Sonia Joiner Interpreting Provider: Sonia Joiner Normal [facility] Electrocardiograph Reporton 05-04-2021 Electrocardiograph Report [address] [address] Electrocardiograph Report Signed PRELIMINARY DRAFT REPORT UNTIL ELECTRONICALLY SIGNED PATIENT: Mick Cottrell MR#: [id number] : 1940 AGE/SEX: 80 / M ADMITTED: 05/04/21 OUTSIDE LOCN: [facility] ATTENDING: READING PHYSICIAN: Rogelio Chapa TECHNOLOGIST: MONICO PHYSICIAN: Maximino Arthur PRIMARY PHYSICIAN: Grace Gtz DATE OF SERVICE: 05/04/21 ACCESSION NUMBERS(S): [id number] HT: 182.88 WT: 190 PROCEDURE(S): ECG 12 lead ECG cc: ; [address] [address] Test Date: 2021-05-04 Pat Name: Mick Cottrell Department: EXAM6 Room: Gender: M Digital Imaging Specialist: : 1940 Requested By: Maximino Arthur Order Number: [id number] Reading MD: Rogelio Chapa Measurements Intervals Floris Rate: 66 P: 70 UT: 189 QRS: 64 QRSD: 82 T: -85 QT: 381 QTc: 400 Interpretive Statements Sinus rhythm Consider left atrial enlargement Borderline repolarization abnormality Electronically Signed On 05-05-2021 9:32:50 EST by Rogelio Smith [facility] Emergency Documentationon Emergency Documentation [address] [address] Emergency Department Note Signed PRELIMINARY DRAFT REPORT UNTIL ELECTRONICALLY SIGNED PATIENT: Mick Cottrell MR#: [id number] : 1940 AGE/SEX: 80 / M ADMITTED: 05/04/21 OUTSIDE LOCN: [facility] ATTENDING: cc: Grace Gtz; Disposition Clinical Impression: Fall Qualifiers: Encounter type: initial encounter Qualified Code(s): W19.XXXA - Unspecified fall, initial encounter Abrasion head Qualifiers: Encounter type: initial encounter Qualified Code(s): S00.91XA - Abrasion of unspecified part of head, initial encounter Abrasion of right knee Qualifiers: Encounter type: initial encounter Qualified Code(s): S80.211A - Abrasion, right knee, initial encounter Chest wall contusion Qualifiers: Encounter type: initial encounter Laterality: right Qualified Code(s): S20.211A - Contusion of right front wall of thorax, initial encounter Disposition: Home, Self-Care Condition: Fair Instructions: Fall Prevention for Older Adults (ED), Head Injury (ED) Reasons to Return/Additional Instructions: 1. Please follow up with your primary care physician within 2-3 days. 2. Please return to the Emergency Department if symptoms worsen, if you have any other concerns, or for any of the following reasons: Fever greater than 104. vision changes, chest pain, shortness of breath, difficulty breathing, abdominal pain, numbness or tingling, or any weaknesses. 3. Please take medications home as prescribed. Incidental findings seen on CT imaging during your visit on 05/04/21 that need to be discussed with your primary care physician. CT Neck: 13 x 7 mm soft tissue density in the trachea at the level of the thoracic inlet. Secretions versus polyp. Follow-up direct visualization suggested. CT Chest: 20 mm right solid pulmonary nodule. Consider a non-contrast Chest CT at 3 months, a PET/CT, or tissue sampling. These guidelines do not apply to immunocompromised patients and patients with cancer. Follow up in patients with significant comorbidities as clinically warranted. For lung cancer screening, adhere to Lung-RADS guidelines. Reference: Radiology. 2017; 284(1):228-43. 2.8 cm infrarenal abdominal aortic aneurysm suspected. Recommend follow-up every 5 years. Prescriptions: Lidocaine Patch [Lidoderm 5% patch] 1 each TP BID PRN 3 Days #6 patch PRN Reason: Pain Transmission Status: Pending to [place] [id number] Referrals: Grace Gtz MD [Primary Care Provider] - Forms: ED Satisfaction Letter Time of Disposition: 18:15 General Adult HPI - General Chief complaint: ED Head Injury Stated complaint: Fall today @ 13:00, hit head, sent from Time Seen by Provider: 05/04/21 16:46 Source: patient Mode of arrival: ambulatory Limitations: no limitations Nursing Notes Reviewed: Yes Vital Signs Reviewed: Yes - History of Present Illness HPI Narrative: Patient is an 80-year-old male currently on anticoagulation including warfarin presenting to the ER for evaluation after a fall after losing his balance. Patient was outside [facility] when he rotated to get the side of the moms and lost his balance and fell over onto his right side hitting his right head on the concrete and his right chest wall as well as abrasion to his knee. Denies LOC. Currently complains of a right-sided anterior chest wall pain with movement of the chest as well as with palpation over the ribs in the mid region. Denies any focal deficits. Has been ambulating well since the walk. Pain Scale: 0 - Related Data Home Medications Medication Instructions Recorded Confirmed Aspirin Enteric Coated [Aspirin EC] 81 mg PO DAILY 09/30/15 05/17/20 Mirtazapine [Remeron] 15 mg PO HS 03/05/20 05/17/20 Albuterol Sulfate [Albuterol HFA 2 puff IH Q4H PRN 03/06/20 05/17/20 Inhaler for Take Home Only] Atorvastatin [Lipitor] 40 mg PO HS 03/06/20 05/17/20 Finasteride [Proscar] 5 mg PO DAILY 03/06/20 05/17/20 Furosemide [Lasix] 20 mg PO QAM 03/06/20 05/17/20 Montelukast [Singulair] 10 mg PO QPM 03/06/20 05/17/20 Topiramate [Topamax] 50 mg PO BID 03/06/20 05/17/20 Vit C/E/Zn/Coppr/Lutein/Z eaxan 1 cap PO BID 03/06/20 05/17/20 [Preservision Areds 2 Softgel] Acetaminophen [Tylenol] 650 mg PO Q4H PRN 05/17/20 05/17/20 Chloraseptic [place] [Chloraseptic] 5 spray PO TID 05/17/20 05/17/20 Enoxaparin [Lovenox] 40 mg SQ HS 05/17/20 05/17/20 Fluticasone Propion/Salmeterol 1 puff IH BID 05/17/20 05/17/20 [Wixela 500-50 Inhub] Glucagon,Human Recombinant 1 mg IM PRN PRN 05/17/20 05/17/20 [Glucagon Emergency Kit] Magnesium Hydroxide [Milk of 1,200 mg PO DAILY PRN 05/17/20 05/17/20 Magnesia] Metformin HCl [Glucophage] 1,000 mg PO BID 05/17/20 05/17/20 Omeprazole [PriLOSEC] 40 mg (more content not included)... Normal [facility] HEADWOon 05-04-[address] [place] [address] Cat Scan Report Signed PRELIMINARY DRAFT REPORT UNTIL ELECTRONICALLY SIGNED PATIENT: Mick Cottrell MR#: [id number] : 1940 AGE/SEX: 80 / M ADMITTED: 05/04/21 OUTSIDE LOCN: LOCATION: [facility] ATTENDING: ORDER PHYSICIAN: Cleveland E Joshua BIRAD: DATE OF SERVICE: 05/04/21 FOLLOW UP: ACCESSION NUMBERS(S): [id number] PROCEDURE(S): CT head/brain wo con REASON FOR EXAM: hit head, warfarin cc: Grace Gtz; Cleveland Lewis; Maximino Arthur; EXAMINATION: CT OF THE HEAD WITHOUT CONTRAST; CT OF THE CERVICAL SPINE WITHOUT CONTRAST 05/04/2021 5:34 pm TECHNIQUE: CT of the head was performed without the administration of intravenous contrast. Dose modulation, iterative reconstruction, and/or weight based adjustment of the mA/kV was utilized to reduce the radiation dose to as low as reasonably achievable.; CT of the cervical spine was performed without the administration of intravenous contrast. Multiplanar reformatted images are provided for review. Dose modulation, iterative reconstruction, and/or weight based adjustment of the mA/kV was utilized to reduce the radiation dose to as low as reasonably achievable. COMPARISON: 05/24/2020 HISTORY: ORDERING SYSTEM PROVIDED HISTORY: hit head, warfarin FINDINGS: CT HEAD: BRAIN/VENTRICLES: There is no acute intracranial hemorrhage, mass effect or midline shift. No abnormal extra-axial fluid collection is appreciated. The edwards-white differentiation is maintained. There is no evidence of hydrocephalus. There is a mild degree of generalized volume loss. There is a mild degree of low-attenuation in the periventricular and subcortical white matter consistent with small vessel disease. Old lacunar infarctions are noted in the cerebellar hemispheres. ORBITS: The visualized portion of the orbits demonstrate no acute abnormality. SINUSES: The visualized paranasal sinuses and mastoid air cells demonstrate no acute abnormality. SOFT TISSUES/SKULL: No acute abnormality of the visualized skull or soft tissues. --- CT CERVICAL SPINE: BONES/ALIGNMENT: The alignment of the cervical spine is normal. No acute fracture is identified. DEGENERATIVE CHANGES: There is moderate osseous hypertrophy of the anterior atlanto dental joint, accompanied by ligamentous calcification. Anterolateral spur formation is noted at multiple levels the cervical spine. At C5-6 there is a posterior disc osteophyte complex resulting in evrg-ac-[id number] narrowing of the central canal. SOFT TISSUES: There is no prevertebral soft tissue swelling. In the posterior, right trachea at the level of the thoracic inlet there is intraluminal 13 x 7 mm soft tissue density. Emphysematous changes are noted in the apices. CT/CT head/brain wo con IMPRESSION: Head- No acute intracranial abnormality. Stable pattern of atrophy and small vessel disease in the cerebral white matter. 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 --- Cervical spine- No acute fracture or subluxation of the cervical spine. Moderate to severe multilevel spondylosis. 13 x 7 mm soft tissue density in the trachea at the level of the thoracic inlet. Secretions versus polyp. Follow-up direct visualization suggested. D/ / Hannah Parra MD / Hannah Parra MD Interpreting Provider: Hannah Parra MD Normal [facility] [id number] 05-04-[id number] [address] XRay Report Signed PRELIMINARY DRAFT REPORT UNTIL ELECTRONICALLY SIGNED PATIENT: Mick Cottrell MR#: [id number] : 1940 AGE/SEX: 80 / M ADMITTED: 05/04/21 OUTSIDE LOCN: LOCATION: [facility] ATTENDING: ORDER PHYSICIAN: Maximino Arthur BIRAD: DATE OF SERVICE: 05/04/21 FOLLOW UP: ACCESSION NUMBERS(S): [id number] PROCEDURE(S): XR knee 3V RT REASON FOR EXAM: fall; multiple abrasions, no deformity. cc: Grace Gtz; Maximino Arthur; EXAMINATION: THREE XRAY VIEWS OF THE RIGHT KNEE 05/04/2021 1:17 pm COMPARISON: None. HISTORY: ORDERING SYSTEM PROVIDED HISTORY: fall; multiple abrasions, no deformity. FINDINGS: No evidence of an acute fracture or traumatic malalignment is present. Mild tricompartment osteoarthritic changes present. Chondrocalcinosis is present involving the menisci. Vascular calcifications are present. No significant joint effusion is present. XR/XR knee 3V RT IMPRESSION: No acute osseous abnormality D/ / Travis Horan / Travis Horan Interpreting Provider: Travis Horan Normal [facility] Prothrombin Time INRon 05-04 INR Coag (PPP) [Relative time] 2.8 {INR} Normal [facility] Comment on above: Result Comment: For patients on oral anticoagulants, the therapeutic INR reference range is 2.0 to 3.5 Performed By: #### L IP, HEPATIC, BMP, ROSSY #### [facility] [address] [place] [id number] PT Coag (PPP) [Time] 31.0 s High 9.4-12.1 [facility] Comment on above: Performed By: #### L IP, HEPATIC, BMP, ROSSY #### [facility] [address] [place] [address] SPCERVWOon 05-04-[address] [address] Cat Scan Report Signed PRELIMINARY DRAFT REPORT UNTIL ELECTRONICALLY SIGNED PATIENT: Mick Cottrell MR#: [id number] : 1940 AGE/SEX: 80 / M ADMITTED: 05/04/21 OUTSIDE LOCN: [facility] ATTENDING: ORDER PHYSICIAN: Maximino Arthur BIRAD: DATE OF SERVICE: 05/04/21 FOLLOW UP: ACCESSION NUMBERS(S): [id number] PROCEDURE(S): CT cervical spine wo con REASON FOR EXAM: fall; right-sided yarsanism abrasion. cc: Grace Gtz; Maximino Arthur; EXAMINATION: CT OF THE HEAD WITHOUT CONTRAST; CT OF THE CERVICAL SPINE WITHOUT CONTRAST 05/04/2021 5:34 pm TECHNIQUE: CT of the head was performed without the administration of intravenous contrast. Dose modulation, iterative reconstruction, and/or weight based adjustment of the mA/kV was utilized to reduce the radiation dose to as low as reasonably achievable.; CT of the cervical spine was performed without the administration of intravenous contrast. Multiplanar reformatted images are provided for review. Dose modulation, iterative reconstruction, and/or weight based adjustment of the mA/kV was utilized to reduce the radiation dose to as low as reasonably achievable. COMPARISON: 05/24/2020 HISTORY: ORDERING SYSTEM PROVIDED HISTORY: hit head, warfarin FINDINGS: CT HEAD: BRAIN/VENTRICLES: There is no acute intracranial hemorrhage, mass effect or midline shift. No abnormal extra-axial fluid collection is appreciated. The edwards-white differentiation is maintained. There is no evidence of hydrocephalus. There is a mild degree of generalized volume loss. There is a mild degree of low-attenuation in the periventricular and subcortical white matter consistent with small vessel disease. Old lacunar infarctions are noted in the cerebellar hemispheres. ORBITS: The visualized portion of the orbits demonstrate no acute abnormality. SINUSES: The visualized paranasal sinuses and mastoid air cells demonstrate no acute abnormality. SOFT TISSUES/SKULL: No acute abnormality of the visualized skull or soft tissues. --- CT CERVICAL SPINE: BONES/ALIGNMENT: The alignment of the cervical spine is normal. No acute fracture is identified. DEGENERATIVE CHANGES: There is moderate osseous hypertrophy of the anterior atlanto dental joint, accompanied by ligamentous calcification. Anterolateral spur formation is noted at multiple levels the cervical spine. At C5-6 there is a posterior disc osteophyte complex resulting in zljj-[id number]-chwbzrgq narrowing of the central canal. SOFT TISSUES: There is no prevertebral soft tissue swelling. In the posterior, right trachea at the level of the thoracic inlet there is intraluminal 13 x 7 mm soft tissue density. Emphysematous changes are noted in the apices. CT/CT cervical spine wo con IMPRESSION: Head- No acute intracranial abnormality. Stable pattern of atrophy and small vessel disease in the cerebral white matter. 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 --- Cervical spine- No acute fracture or subluxation of the cervical spine. Moderate to severe multilevel spondylosis. 13 x 7 mm soft tissue density in the trachea at the level of the thoracic inlet. Secretions versus polyp. Follow-up direct visualization suggested. D/ / Hannah Parra MD / Hannah Parra MD Interpreting Provider: Hannah Parra MD Normal [facility] Troponin Ion 05-04-2021 Troponin I.cardiac [Mass/Vol] ng/mL Normal < 0.04 [facility] Comment on above: Performed By: #### L IP, HEPATIC, BMP, ROSSY #### [facility] [address] [place] [address] Echocardiogram Reporton Echocardiogram Report [facility] [address] [place] [address] ECHO - Doppler Report Signed PRELIMINARY DRAFT REPORT UNTIL ELECTRONICALLY SIGNED PATIENT: Mick Cottrell MR#: [id number] : 1940 AGE/SEX: 80 / M ADMITTED: 04/27/21 OUTSIDE LOCN: LOCATION: [facility] ATTENDING: Juan Wilson MD READING PHYSICIAN: Luisana Diego TECHNOLOGIST: ORDER PHYSICIAN: Juan Wilson PRIMARY PHYSICIAN: Grace Gtz DATE OF SERVICE: 04/27/21 ACCESSION NUMBERS(S): [id number] HT: WT: PROCEDURE(S): EV echocardiogram cc: ; Echocardiogram Name: Mick Cottrell Date of Study: 04/27/2021 Date: 1940 Ht: 72.0 in Medical [id number] Age: 80 Wt: 191.0 lb Record#: Gender: M BSA: 2.09 Order #: [id number] Location: [facility] #: Critical access hospital Reading Physician: Luisana Diego MD Ordering Physician: Juan Frank MD It Teacher: Solitario Jones RDCS, RVT Indications: H/O heart valve replacement History Hypercholesteremia Valvular Disease Valve Replacement 05/17/2020 a Previous Echo was performed. Measurements: 2D Normal Values RVIDd: 3.60 cm <2.7 cm IVSd: 1.27 cm 0.6 - 1.0 cm LVIDd: 4.51 cm 3.7 - 5.6 cm LVPWd: 1.12 cm 0.6 - 1.1 cm LVIDs: 3.00 cm 1.5 - 3.6 cm AO: 2.30 cm < 4.0 cm LA: 3.70 cm 2.0 - 4.0cm LVOT Diam: 1.90 cm LA volume??: 47 Mitral Valve Pressure ?? Time: 92.00 msec Dec Time: 314.00 msec Peak E: .78 m/sec Peak A: 1.05 m/sec E/A Ratio: 0.7 Peak E' Lat Colleen: 6.2 cm/s Peak E' Med Colleen: 4.24 cm/s E/E' Lat Ratio: 12.5 E/E' Med Ratio: 18.3 LVOT Peak Colleen: 1.18 m/sec Mean Colleen: .81 m/sec Peak Grad: 6.00 mmHg Mean Grad: 3.00 mmHg Aortic Valve Peak Colleen: 2.47 m/sec Mean Colleen: 1.74 m/sec Peak Grad: 27.00 mmHg Mean Grad: 13.67 mmHg Valve Area: 1.33 cm2 Tricuspid Valve TV Regurg Peak Grad: 17.00mmHg TV Regurg Peak Colleen: 2.04m/sec Updated by Luisana Diego MD on 12:50 PM electronically signed on 04/27/2021 12:51:39 PM with status of Final Wall Motion?? [id number] ProVation FT PDF EV/EV echocardiogram Impressions: * LVEF 65%. * Normal LV chamber size and systolic function. * Mild/grade I left ventricular diastolic dysfunction. * Normal right ventricular size and function. * Bioprosthetic aortic valve without steonosis or regurgitation. * Mild tricuspid regurgitation. * No pulmonary hypertension. * No significant change c/w 05/01/2019 study. Left Ventricular Wall Motion: Rest Echo Findings ??? All wall segments showed normal motion. Findings: Study Quality * Technically adequate exam. ECG Findings * Sinus rhythm. Left Ventricle * LVEF 65%. * Normal LV chamber size and systolic function. * Concentric left ventricular remodeling. * Mild/grade I left ventricular diastolic dysfunction. * Definity echo contrast was not used. * Atypical septal motion consistent with post-operative status. Right Ventricle * Normal right ventricular size and function. Left Atrium * Normal left atrial size. Right Atrium * Normal right atrial size. Interatrial Septum * Interatrial septum not well evaluated. Aortic Valve * Bioprosthetic aortic valve not well visualized with normal function without steonosis or regurgitation. MG 14mmHg DVI 0.48. Mitral Valve * Mildly thickened mitral valve leaflets. * Trace mitral regurgitation. * No mitral stenosis. Tricuspid Valve * Normal tricuspid valve structure. * No tricuspid stenosis. * Mild tricuspid regurgitation. * Estimated RVSP is 20-25 mmHg. * Estimated RA pressure is 3-8 mmHg. * No pulmonary hypertension. Pulmonic Valve * Pulmonic valve is not well visualized. * No pulmonic stenosis. * No pulmonic regurgitation. Aorta * Normally sized aortic root. Pericardium * The pericardium appears normal. IVC * The IVC is not dilated. Normal [facility] [address] [address] [facility] Clinic Signed PRELIMINARY DRAFT REPORT UNTIL ELECTRONICALLY SIGNED PATIENT: Mick Cottrell MR#: [id number] : 1940 AGE/SEX: 80 / M ADMITTED: 04/19/21 OUTSIDE LOCN: LOCATION: [facility] ATTENDING: Grace Gtz MD cc: ; Anti-Coagulation History Referring Physician: Grace Gtz Supervising Clinician: Jose Jordan Medical history: cancer, COPD, CVA, diabetes, GERD, hyperlipidemia, hypertension Additional medical history PMH: right lung drainage - pt reports 1800cc of drainage from "center sac" of lung Male Surgical History: cataract, herniorrhaphy, sinus surgery, tonsillectomy Female Surgical History: heart valve replacement (Aortic valve replacement) Additional surgical history PMH: lung drained, tonsillectomy, nasal surgery, loop recorder removal. heart valve replacement - cow valve Psychiatric history: depression Smoking Status: Former smoker Smokeless Tobacco Status: No Alcohol use PMH: none Drug use: none Occupational status: retired Finger Stick INR: 2.3 INR Range: 2-3 (CVA) Specimen Processed (Date): 04/19/21 Specimen Processed (Time): 08:49 Patient Instructions: Keep taking the same amount of Coumadin as you have been taking. Have a great week and I'll see you soon. IT IS EXTREMELY IMPORTANT THAT YOU NOTIFY OUR OFFICE OF ALL MEDICATION CHANGES ON THE DAY THAT THEY OCCUR. IF THE CHANGE SHOULD OCCUR AFTER HOURS OR ON THE WEEKEND, SELECT OPTION #2 AND YOUR CALL WILL BE TRANSFERRED TO THE INPATIENT PHARMACIST FOR ASSISTANCE. Also make us aware of any illnesses that give you diarrhea or vomiting. Please do not arrive more than 10 minutes prior to your scheduled appointment. Cancellation notice must be provided at least 24 hours in advance. Thank you!! If you are experiencing a bleeding emergency and the voicemail is not picking up, please contact our toll free number at: . Diandra Arechiga PharmD. 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) Hypokalemia (Acute) COPD (chronic obstructive pulmonary disease) (Chronic) DVT prophylaxis (Acute) CVA (cerebral vascular accident) (Chronic) COVID-19 (Acute) COPD exacerbation (Acute) Acute respiratory failure with hypoxia (Acute) HTN (hypertension) (Chronic) BPH (benign prostatic hyperplasia) (Chronic) Dehydration (Acute) Sepsis (Acute) Acute metabolic encephalopathy (Acute) Atrial fibrillation with RVR (Acute) Atrial fibrillation (Chronic) Systolic heart failure (Chronic) GERD (gastroesophageal reflux disease) (Chronic) Hemoptysis (Acute) Multifocal pneumonia (Acute) Pneumonia due to COVID-19 virus (Acute) DVT prophylaxis (Acute) Heart failure with preserved ejection fraction (Chronic) CVA (cerebral vascular accident) (Chronic) Secondary bacterial pneumonia (Acute) Paroxysmal atrial fibrillation (Chronic) Physical deconditioning (Acute) Adjustment disorder with mixed anxiety and depressed mood (Acute) Constipation (Acute) Shortness of breath (Acute) Pulmonary embolism (Acute) Palpitations (Acute) CAD (coronary artery disease) (Acute) Hypomagnesemia (Acute) Elevated troponin (Acute) Loculated pleural effusion (Chronic) Obstructive uropathy (Acute) Ureteral stone with hydronephrosis (Acute) Hypertensive urgency (Acute) Hematuria (Acute) Renal insufficiency (Acute) MARYLOU (acute kidney injury) (Acute) Pharmacist Visit Note: Keep taking the same amount of Coumadin as you have been taking. Have a great week and I'll see you soon. IT IS EXTREMELY IMPORTANT THAT YOU NOTIFY OUR OFFICE OF ALL MEDICATION CHANGES ON THE DAY THAT THEY OCCUR. IF THE CHANGE SHOULD OCCUR AFTER HOURS OR ON THE WEEKEND, SELECT OPTION #2 AND YOUR CALL WILL BE TRANSFERRED TO THE INPATIENT PHARMACIST FOR ASSISTANCE. Also make us aware of any illnesses that give you diarrhea or vomiting. Please do not arrive more than 10 minutes prior to your scheduled appointment. Cancellation notice must be provided at least 24 hours in advance. Thank you!! If you are experiencing a bleeding emergency and the voicemail is not picking up, please contact our toll free number at: . Diandra Arechiga PharmD. - Dosing Schedule Changes made to dosing schedule?: No Warfarin Strength: 4mg Daily Dose (Sun): 4 # of Tablets (Sun): 1 Daily Dose (Mon): 4 # of Tablets (Mon): 1 Daily Dose (Tue): 4 # of Tablets (Tue): 1 Daily Dose (Wed): 4 # of Tablets (Wed): 1 Daily Dose (Kenna): 4 # of Tablets (Kenna): 1 Daily Dose (Fri): 4 # of Tablets (Fri): 1 Daily Dose (Sat): 4 # of Tablets (Sat): (more content not included)... Normal [facility] POC PT and INR (office)on 04-19-2021 POC INR Result (office) 2.3 Normal [facility] Comment on above: Result Comment: For patients on oral anticoagulants, the therapeutic INR reference range is 2.0 to 3.5 Performed By: #### B MP #### [facility] [address] [place] [id number] POC PT Result (office) 27.3 seconds High 9.4-12.1 [facility] Comment on above: Performed By: #### B MP #### [facility] [address] [place] [id number] [facility] [address] [address] [facility] Signed PRELIMINARY DRAFT REPORT UNTIL ELECTRONICALLY SIGNED PATIENT: Mick Cottrell MR#: [id number] : 1940 AGE/SEX: 80 / M ADMITTED: 03/29/21 OUTSIDE LOCN: LOCATION: [facility] ATTENDING: Grace Gtz MD cc: ; Anti-Coagulation History Referring Physician: Grace Gtz Supervising Clinician: Jose Jordan Medical history: cancer, COPD, CVA, diabetes, GERD, hyperlipidemia, hypertension Additional medical history PMH: right lung drainage - pt reports 1800cc of drainage from "center sac" of lung Male Surgical History: cataract, herniorrhaphy, sinus surgery, tonsillectomy Female Surgical History: heart valve replacement (Aortic valve replacement) Additional surgical history PMH: lung drained, tonsillectomy, nasal surgery, loop recorder removal. heart valve replacement - cow valve Psychiatric history: depression Smoking Status: Former smoker Smokeless Tobacco Status: No Alcohol use PMH: none Drug use: none Occupational status: retired [employer] INR: 2.1 INR Range: 2-3 (CVA) Specimen Processed (Date): 03/29/21 Specimen Processed (Time): 08:43 Patient Instructions: Keep taking the same amount of Coumadin as you have been taking. Have a great week and I'll see you soon. IT IS EXTREMELY IMPORTANT THAT YOU NOTIFY OUR OFFICE OF ALL MEDICATION CHANGES ON THE DAY THAT THEY OCCUR. IF THE CHANGE SHOULD OCCUR AFTER HOURS OR ON THE WEEKEND, SELECT OPTION #2 AND YOUR CALL WILL BE TRANSFERRED TO THE INPATIENT PHARMACIST FOR ASSISTANCE. Also make us aware of any illnesses that give you diarrhea or vomiting. Please do not arrive more than 10 minutes prior to your scheduled appointment. Cancellation notice must be provided at least 24 hours in advance. Thank you!! If you are experiencing a bleeding emergency and the voicemail is not picking up, please contact our toll free number at: . Diandra DillonD. 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) Hypokalemia (Acute) COPD (chronic obstructive pulmonary disease) (Chronic) DVT prophylaxis (Acute) CVA (cerebral vascular accident) (Chronic) COVID-19 (Acute) COPD exacerbation (Acute) Acute respiratory failure with hypoxia (Acute) HTN (hypertension) (Chronic) BPH (benign prostatic hyperplasia) (Chronic) Dehydration (Acute) Sepsis (Acute) Acute metabolic encephalopathy (Acute) Atrial fibrillation with RVR (Acute) Atrial fibrillation (Chronic) Systolic heart failure (Chronic) GERD (gastroesophageal reflux disease) (Chronic) Hemoptysis (Acute) Multifocal pneumonia (Acute) Pneumonia due to COVID-19 virus (Acute) DVT prophylaxis (Acute) Heart failure with preserved ejection fraction (Chronic) CVA (cerebral vascular accident) (Chronic) Secondary bacterial pneumonia (Acute) Paroxysmal atrial fibrillation (Chronic) Physical deconditioning (Acute) Adjustment disorder with mixed anxiety and depressed mood (Acute) Constipation (Acute) Shortness of breath (Acute) Pulmonary embolism (Acute) Palpitations (Acute) CAD (coronary artery disease) (Acute) Hypomagnesemia (Acute) Elevated troponin (Acute) Loculated pleural effusion (Chronic) Obstructive uropathy (Acute) Ureteral stone with hydronephrosis (Acute) Hypertensive urgency (Acute) Hematuria (Acute) Renal insufficiency (Acute) MARYLOU (acute kidney injury) (Acute) Pharmacist Visit Note: Mick Nevilleon was questioned extensively about any missed dosages, any exercise or lifestyle changes, new medication regimens, any changes in diet or increased/decreased vitamin K foods, any bleeding issues, any illnesses including any nausea, vomiting or diarrhea as well as any upcoming surgeries or procedures. Patient denies any further changes. Total time spent: 15 minutes Diandra Arechiga PharmD. - Dosing Schedule Changes made to dosing schedule?: No Warfarin Strength: 4mg Daily Dose (Sun): 4 # of Tablets (Sun): 1 Daily Dose (Mon): 4 # of Tablets (Mon): 1 Daily Dose (Tue): 4 # of Tablets (Tue): 1 Daily Dose (Wed): 4 # of Tablets (Wed): 1 Daily Dose (Kenna): 4 # of Tablets (Kenna): 1 Daily Dose (Fri): 4 # of Tablets (Fri): 1 Daily Dose (Sat): 4 # of Tablets (Sat): 1 Total Doses (mg): 28 Follow up visit requested: 3 weeks Documented By: Diandra Arechiga Signed By: 03/29/21 0844 DD/ 0843 Initialized By: [id number] [facility] POC PT and INR (office)on 03-29-2021 POC INR Result (office) 2.1 [facility] Comment on above: Result Comment: For patients on oral anticoagulants, the therapeutic INR reference range is 2.0 to 3.5 Performed By: #### L IP, HEPATIC, BMP, ROSSY #### [facility] [address] [place] [id number] POC PT Result (office) 25.2 seconds High 9.4-12.1 [facility] Comment on above: Performed By: #### L IP, HEPATIC, BMP, ROSSY #### [facility] [address] [place] [id number] [facility] [address] [address] [facility] Signed PRELIMINARY DRAFT REPORT UNTIL ELECTRONICALLY SIGNED PATIENT: Mick Cottrell MR#: [id number] : 1940 AGE/SEX: 80 / M ADMITTED: 03/15/21 OUTSIDE LOCN: LOCATION: [facility] ATTENDING: Grace Gtz MD cc: ; Anti-Coagulation History Referring Physician: Grace Gtz Supervising Clinician: Jose Jordan Medical history: cancer, COPD, CVA, diabetes, GERD, hyperlipidemia, hypertension Additional medical history PMH: right lung drainage - pt reports 1800cc of drainage from "center sac" of lung Male Surgical History: cataract, herniorrhaphy, sinus surgery, tonsillectomy Female Surgical History: heart valve replacement (Aortic valve replacement) Additional surgical history PMH: lung drained, tonsillectomy, nasal surgery, loop recorder removal. heart valve replacement - cow valve Psychiatric history: depression Smoking Status: Former smoker Smokeless Tobacco Status: No Alcohol use PMH: none Drug use: none Occupational status: retired [employer] INR: 2 INR Range: 2-3 (CVA) Specimen Processed (Date): 03/15/21 Specimen Processed (Time): 08:38 Patient Instructions: Keep taking the same amount of Coumadin as you have been taking. Have a great week and I'll see you soon. IT IS EXTREMELY IMPORTANT THAT YOU NOTIFY OUR OFFICE OF ALL MEDICATION CHANGES ON THE DAY THAT THEY OCCUR. IF THE CHANGE SHOULD OCCUR AFTER HOURS OR ON THE WEEKEND, SELECT OPTION #2 AND YOUR CALL WILL BE TRANSFERRED TO THE INPATIENT PHARMACIST FOR ASSISTANCE. Also make us aware of any illnesses that give you diarrhea or vomiting. Please do not arrive more than 10 minutes prior to your scheduled appointment. Cancellation notice must be provided at least 24 hours in advance. Thank you!! If you are experiencing a bleeding emergency and the voicemail is not picking up, please contact our toll free number at: . Piyush Sales PharmD. 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) Hypokalemia (Acute) COPD (chronic obstructive pulmonary disease) (Chronic) DVT prophylaxis (Acute) CVA (cerebral vascular accident) (Chronic) COVID-19 (Acute) COPD exacerbation (Acute) Acute respiratory failure with hypoxia (Acute) HTN (hypertension) (Chronic) BPH (benign prostatic hyperplasia) (Chronic) Dehydration (Acute) Sepsis (Acute) Acute metabolic encephalopathy (Acute) Atrial fibrillation with RVR (Acute) Atrial fibrillation (Chronic) Systolic heart failure (Chronic) GERD (gastroesophageal reflux disease) (Chronic) Hemoptysis (Acute) Multifocal pneumonia (Acute) Pneumonia due to COVID-19 virus (Acute) DVT prophylaxis (Acute) Heart failure with preserved ejection fraction (Chronic) CVA (cerebral vascular accident) (Chronic) Secondary bacterial pneumonia (Acute) Paroxysmal atrial fibrillation (Chronic) Physical deconditioning (Acute) Adjustment disorder with mixed anxiety and depressed mood (Acute) Constipation (Acute) Shortness of breath (Acute) Pulmonary embolism (Acute) Palpitations (Acute) CAD (coronary artery disease) (Acute) Hypomagnesemia (Acute) Elevated troponin (Acute) Loculated pleural effusion (Chronic) Obstructive uropathy (Acute) Ureteral stone with hydronephrosis (Acute) Hypertensive urgency (Acute) Hematuria (Acute) Renal insufficiency (Acute) MARYLOU (acute kidney injury) (Acute) Pharmacist Visit Note: Mick Cottrell was questioned extensively about any missed dosages, any exercise or lifestyle changes, new medication regimens, any changes in diet or increased/decreased vitamin K foods, any bleeding issues, any illnesses including any nausea, vomiting or diarrhea as well as any upcoming surgeries or procedures. Patient denies any further changes. Total time spent: 15 minutes Piyush Sales PharmD. - Dosing Schedule Changes made to dosing schedule?: No Warfarin Strength: 4mg Daily Dose (Sun): 4 # of Tablets (Sun): 1 Daily Dose (Mon): 4 # of Tablets (Mon): 1 Daily Dose (Tue): 4 # of Tablets (Tue): 1 Daily Dose (Wed): 4 # of Tablets (Wed): 1 Daily Dose (Kenna): 4 # of Tablets (Kenna): 1 Daily Dose (Fri): 4 # of Tablets (Fri): 1 Daily Dose (Sat): 4 # of Tablets (Sat): 1 Total Doses (mg): 28 Follow up visit requested: 2 weeks Documented By: Piyush Sales Signed By: 03/15/21841 DD/ 7 Initialized By: [id number] [facility] POC PT and INR (office)on 03-15-2021 POC INR Result (office) 2.0 [facility] Comment on above: Result Comment: For patients on oral anticoagulants, the therapeutic INR reference range is 2.0 to 3.5 Performed By: #### P OCPTINR ####[facility] [address] [place] [address] POC PT Result (office) 24.1 seconds High 9.4-12.1 [facility] Comment on above: Performed By: #### P OCPTINR ####[facility] [address] [place] [id number] [facility] [address] [address] [facility] Signed PRELIMINARY DRAFT REPORT UNTIL ELECTRONICALLY SIGNED PATIENT: Mick Cottrell MR#: [id number] : 1940 AGE/SEX: 80 / M ADMITTED: 03/08/21 OUTSIDE LOCN: LOCATION: [facility] ATTENDING: Grace Gtz MD cc: ; Anti-Coagulation History Referring Physician: Grace Gtz Supervising Clinician: Jose Jordan Medical history: cancer, COPD, CVA, diabetes, GERD, hyperlipidemia, hypertension Additional medical history PMH: right lung drainage - pt reports 1800cc of drainage from "center sac" of lung Male Surgical History: cataract, herniorrhaphy, sinus surgery, tonsillectomy Female Surgical History: heart valve replacement (Aortic valve replacement) Additional surgical history PMH: lung drained, tonsillectomy, nasal surgery, loop recorder removal. heart valve replacement - cow valve Psychiatric history: depression Smoking Status: Former smoker Smokeless Tobacco Status: No Alcohol use PMH: none Drug use: none Occupational status: retired [employer] INR: 2.6 INR Range: 2-3 (CVA) Specimen Processed (Date): 03/08/21 Specimen Processed (Time): 08:37 Patient Instructions: Begin taking your Coumadin according to the dosage schedule listed above. Have a great week and I'll see you soon. IT IS EXTREMELY IMPORTANT THAT YOU NOTIFY OUR OFFICE OF ALL MEDICATION CHANGES ON THE DAY THAT THEY OCCUR. IF THE CHANGE SHOULD OCCUR AFTER HOURS OR ON THE WEEKEND, SELECT OPTION #2 AND YOUR CALL WILL BE TRANSFERRED TO THE INPATIENT PHARMACIST FOR ASSISTANCE. Also make us aware of any illnesses that give you diarrhea or vomiting. Thank you! Please do not arrive more than 10 minutes prior to your scheduled appointment. Cancellation notice must be provided at least 24 hours in advance. Thank you!! 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) Hypokalemia (Acute) COPD (chronic obstructive pulmonary disease) (Chronic) DVT prophylaxis (Acute) CVA (cerebral vascular accident) (Chronic) COVID-19 (Acute) COPD exacerbation (Acute) Acute respiratory failure with hypoxia (Acute) HTN (hypertension) (Chronic) BPH (benign prostatic hyperplasia) (Chronic) Dehydration (Acute) Sepsis (Acute) Acute metabolic encephalopathy (Acute) Atrial fibrillation with RVR (Acute) Atrial fibrillation (Chronic) Systolic heart failure (Chronic) GERD (gastroesophageal reflux disease) (Chronic) Hemoptysis (Acute) Multifocal pneumonia (Acute) Pneumonia due to COVID-19 virus (Acute) DVT prophylaxis (Acute) Heart failure with preserved ejection fraction (Chronic) CVA (cerebral vascular accident) (Chronic) Secondary bacterial pneumonia (Acute) Paroxysmal atrial fibrillation (Chronic) Physical deconditioning (Acute) Adjustment disorder with mixed anxiety and depressed mood (Acute) Constipation (Acute) Shortness of breath (Acute) Pulmonary embolism (Acute) Palpitations (Acute) CAD (coronary artery disease) (Acute) Hypomagnesemia (Acute) Elevated troponin (Acute) Loculated pleural effusion (Chronic) Obstructive uropathy (Acute) Ureteral stone with hydronephrosis (Acute) Hypertensive urgency (Acute) Hematuria (Acute) Renal insufficiency (Acute) MARYLOU (acute kidney injury) (Acute) Pharmacist Visit Note: Mick Cottrell was questioned extensively about any missed dosages, any exercise or lifestyle changes, new medication regimens, any changes in diet or increased/decreased vitamin K foods, any bleeding issues, any illnesses including any nausea, vomiting or diarrhea as well as any upcoming surgeries or procedures. Patient denies any further changes. Total time spent: 15 minutes Aminah Stevenson PharmD. - Dosing Schedule Changes made to dosing schedule?: Yes Warfarin Strength: 4mg Daily Dose (Sun): 4 # of Tablets (Sun): 1 Daily Dose (Mon): 4 # of Tablets (Mon): 1 Daily Dose (Tue): 4 # of Tablets (Tue): 1 Daily Dose (Wed): 4 # of Tablets (Wed): 1 Daily Dose (Kenna): 4 # of Tablets (Kenna): 1 Daily Dose (Fri): 4 # of Tablets (Fri): 1 Daily Dose (Sat): 4 # of Tablets (Sat): 1 Total Doses (mg): 28 Reason for dosing changes: slowly climbing Documented By: Aminah Stevenson Signed By: 03/08/21 0841 DD/ 0837 Initialized By: [id number] [facility] POC PT and INR (office)on 03-08-2021 POC INR Result (office) 2.6 [facility] Comment on above: Result Comment: For patients on oral anticoagulants, the therapeutic INR reference range is 2.0 to 3.5 Performed By: #### L IP, HEPATIC, BMP, ROSSY #### [facility] [address] [place] [address] POC PT Result (office) 31.1 seconds High 9.4-12.1 [facility] Comment on above: Performed By: #### L IP, HEPATIC, BMP, ROSSY #### [facility] [address] [place] [id number] MYOSPECRASon 03-06-[address] [address] Nuclear Medicine Report Signed PRELIMINARY DRAFT REPORT UNTIL ELECTRONICALLY SIGNED PATIENT: Mick Cottrell MR#: [id number] : 1940 AGE/SEX: 80 / M ADMITTED: 02/21/21 OUTSIDE LOCN: LOCATION: [facility] ATTENDING: Mary Kay Ty [facility] ORDER PHYSICIAN: Mary Kay Ty BIRAD: DATE OF SERVICE: 02/21/21 FOLLOW UP: ACCESSION NUMBERS(S): [id number] PROCEDURE(S): NM paramjit perf SPECT multi REASON FOR EXAM: LOPEZ cc: Grace Gtz; Mary Kay Ty; This exam will be interpreted by [facility]. Results will be available in [employer] [facility] under the CARDIO-PULMONARY Reports tab, within 48 hours of exam completion. If results are not available at that time, please call Cardiopulmonary at . Thank you. Normal [facility] [address] [address] [facility] Signed PRELIMINARY DRAFT REPORT UNTIL ELECTRONICALLY SIGNED PATIENT: Mick Cottrell MR#: [id number] : 1940 AGE/SEX: 80 / M ADMITTED: 03/01/21 OUTSIDE LOCN: LOCATION: [facility] ATTENDING: Grace Gtz MD cc: ; Anti-Coagulation History Referring Physician: Grace Gtz Supervising Clinician: Jose Jordan Medical history: cancer, COPD, CVA, diabetes, GERD, hyperlipidemia, hypertension Additional medical history PMH: right lung drainage - pt reports 1800cc of drainage from "center sac" of lung Male Surgical History: cataract, herniorrhaphy, sinus surgery, tonsillectomy Female Surgical History: heart valve replacement (Aortic valve replacement) Additional surgical history PMH: lung drained, tonsillectomy, nasal surgery, loop recorder removal. heart valve replacement - cow valve Psychiatric history: depression Smoking Status: Former smoker Smokeless Tobacco Status: No Alcohol use PMH: none Drug use: none Occupational status: retired [employer] INR: 1.7 Is [facility] Indicated: No INR Range: 2-3 (CVA) Specimen Processed (Date): 03/01/21 Specimen Processed (Time): 09:43 Patient Instructions: Begin taking your Coumadin according to the dosage schedule listed above. Have a great week and I'll see you soon. IT IS EXTREMELY IMPORTANT THAT YOU NOTIFY OUR OFFICE OF ALL MEDICATION CHANGES ON THE DAY THAT THEY OCCUR. IF THE CHANGE SHOULD OCCUR AFTER HOURS OR ON THE WEEKEND, SELECT OPTION #2 AND YOUR CALL WILL BE TRANSFERRED TO THE INPATIENT PHARMACIST FOR ASSISTANCE. Also make us aware of any illnesses that give you diarrhea or vomiting. Thank you! Please do not arrive more than 10 minutes prior to your scheduled appointment. Cancellation notice must be provided at least 24 hours in advance. Thank you!! 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) Hypokalemia (Acute) COPD (chronic obstructive pulmonary disease) (Chronic) DVT prophylaxis (Acute) CVA (cerebral vascular accident) (Chronic) COVID-19 (Acute) COPD exacerbation (Acute) Acute respiratory failure with hypoxia (Acute) HTN (hypertension) (Chronic) BPH (benign prostatic hyperplasia) (Chronic) Dehydration (Acute) Sepsis (Acute) Acute metabolic encephalopathy (Acute) Atrial fibrillation with RVR (Acute) Atrial fibrillation (Chronic) Systolic heart failure (Chronic) GERD (gastroesophageal reflux disease) (Chronic) Hemoptysis (Acute) Multifocal pneumonia (Acute) Pneumonia due to COVID-19 virus (Acute) DVT prophylaxis (Acute) Heart failure with preserved ejection fraction (Chronic) CVA (cerebral vascular accident) (Chronic) Secondary bacterial pneumonia (Acute) Paroxysmal atrial fibrillation (Chronic) Physical deconditioning (Acute) Adjustment disorder with mixed anxiety and depressed mood (Acute) Constipation (Acute) Shortness of breath (Acute) Pulmonary embolism (Acute) Palpitations (Acute) CAD (coronary artery disease) (Acute) Hypomagnesemia (Acute) Elevated troponin (Acute) Loculated pleural effusion (Chronic) Obstructive uropathy (Acute) Ureteral stone with hydronephrosis (Acute) Hypertensive urgency (Acute) Hematuria (Acute) Renal insufficiency (Acute) MARYLOU (acute kidney injury) (Acute) Pharmacist Visit Note: Mick Cottrell was questioned extensively about any missed dosages, any exercise or lifestyle changes, new medication regimens, any changes in diet or increased/decreased vitamin K foods, any bleeding issues, any illnesses including any nausea, vomiting or diarrhea as well as any upcoming surgeries or procedures. Patient denies any further changes. Total time spent: 15 minutes Diandra Arechiga PharmD. - Dosing Schedule Changes made to dosing schedule?: Yes Warfarin Strength: 4mg Daily Dose (Sun): 6 # of Tablets (Sun): 1.5 Daily Dose (Mon): 4 # of Tablets (Mon): 1 Daily Dose (Tue): 4 # of Tablets (Tue): 1 Daily Dose (Wed): 4 # of Tablets (Wed): 1 Daily Dose (Kenna): 6 # of Tablets (Kenna): 1.5 Daily Dose (Fri): 4 # of Tablets (Fri): 1 Daily Dose (Sat): 4 # of Tablets (Sat): 1 Total Doses (mg): 32 Reason for dosing changes: Subtherapeutic INR Follow up visit requested: 1 week Documented By: Diandra Arechiga Signed By: 03/01/21 0945 DD/ 0943 Initialized By: [id number] [facility] POC PT and INR (office)on 03-01-2021 POC INR Result (office) 1.7 [facility] Comment on above: Result Comment: For patients on oral anticoagulants, the therapeutic INR reference range is 2.0 to 3.5 Performed By: #### P OCPTINR ####[facility] [id number] [place] [address] POC PT Result () 20.5 seconds High 9.4-12.1 [facility] Comment on above: Performed By: #### P OCPTINR ####[facility] [id number] [place] [address] [facility] [address] [address] [facility] Signed PRELIMINARY DRAFT REPORT UNTIL ELECTRONICALLY SIGNED PATIENT: Mick Cottrell MR#: [id number] : 1940 AGE/SEX: 80 / M ADMITTED: 02/22/21 OUTSIDE LOCN: LOCATION: [facility] ATTENDING: Grace Gtz MD cc: ; Anti-Coagulation History Referring Physician: Grace Gtz Supervising Clinician: Jose Jordan Medical history: cancer, COPD, CVA, diabetes, GERD, hyperlipidemia, hypertension Additional medical history PMH: right lung drainage - pt reports 1800cc of drainage from "center sac" of lung Male Surgical History: cataract, herniorrhaphy, sinus surgery, tonsillectomy Female Surgical History: heart valve replacement (Aortic valve replacement) Additional surgical history PMH: lung drained, tonsillectomy, nasal surgery, loop recorder removal. heart valve replacement - cow valve Psychiatric history: depression Smoking Status: Former smoker Smokeless Tobacco Status: No Alcohol use PMH: none Drug use: none Occupational status: retired Finger Stick INR: 1.3 Is Bridging Therapy Indicated: No INR Range: 2-3 (CVA) Specimen Processed (Date): 02/22/21 Specimen Processed (Time): 09:26 Missed doses: Yes (Missed dose yesterday) Patient Instructions: Begin taking your Coumadin according to the dosage schedule listed above. Have a great week and I'll see you soon. IT IS EXTREMELY IMPORTANT THAT YOU NOTIFY OUR OFFICE OF ALL MEDICATION CHANGES ON THE DAY THAT THEY OCCUR. IF THE CHANGE SHOULD OCCUR AFTER HOURS OR ON THE WEEKEND, SELECT OPTION #2 AND YOUR CALL WILL BE TRANSFERRED TO THE INPATIENT PHARMACIST FOR ASSISTANCE. Also make us aware of any illnesses that give you diarrhea or vomiting. Thank you! Please do not arrive more than 10 minutes prior to your scheduled appointment. Cancellation notice must be provided at least 24 hours in advance. Thank you!! 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) Hypokalemia (Acute) COPD (chronic obstructive pulmonary disease) (Chronic) DVT prophylaxis (Acute) CVA (cerebral vascular accident) (Chronic) COVID-19 (Acute) COPD exacerbation (Acute) Acute respiratory failure with hypoxia (Acute) HTN (hypertension) (Chronic) BPH (benign prostatic hyperplasia) (Chronic) Dehydration (Acute) Sepsis (Acute) Acute metabolic encephalopathy (Acute) Atrial fibrillation with RVR (Acute) Atrial fibrillation (Chronic) Systolic heart failure (Chronic) GERD (gastroesophageal reflux disease) (Chronic) Hemoptysis (Acute) Multifocal pneumonia (Acute) Pneumonia due to COVID-19 virus (Acute) DVT prophylaxis (Acute) Heart failure with preserved ejection fraction (Chronic) CVA (cerebral vascular accident) (Chronic) Secondary bacterial pneumonia (Acute) Paroxysmal atrial fibrillation (Chronic) Physical deconditioning (Acute) Adjustment disorder with mixed anxiety and depressed mood (Acute) Constipation (Acute) Shortness of breath (Acute) Pulmonary embolism (Acute) Palpitations (Acute) CAD (coronary artery disease) (Acute) Hypomagnesemia (Acute) Elevated troponin (Acute) Loculated pleural effusion (Chronic) Obstructive uropathy (Acute) Ureteral stone with hydronephrosis (Acute) Hypertensive urgency (Acute) Hematuria (Acute) Renal insufficiency (Acute) MARYLOU (acute kidney injury) (Acute) Pharmacist Visit Note: Mick Cottrell was questioned extensively about any missed dosages, any exercise or lifestyle changes, new medication regimens, any changes in diet or increased/decreased vitamin K foods, any bleeding issues, any illnesses including any nausea, vomiting or diarrhea as well as any upcoming surgeries or procedures. Patient denies any further changes. Total time spent: 15 minutes Diandra Arechiga PharmD. - Dosing Schedule Changes made to dosing schedule?: Yes Warfarin Strength: 4mg Daily Dose (Sun): 4 # of Tablets (Sun): 1 Daily Dose (Mon): 4 # of Tablets (Mon): 1 Daily Dose (Tue): 4 # of Tablets (Tue): 1 Daily Dose (Wed): 4 # of Tablets (Wed): 1 Daily Dose (Kenna): 6 # of Tablets (Kenna): 1.5 Daily Dose (Fri): 4 # of Tablets (Fri): 1 Daily Dose (Sat): 4 # of Tablets (Sat): 1 Total Doses (mg): 30 Reason for dosing changes: Subtherapeutic INR Follow up visit requested: 1 week Documented By: Diandra Arechiga Signed By: 02/22/21926 DD/ 1 Initialized By: [id number] [facility] POC PT and INR (office)on 02-22-2021 POC INR Result (office) 1.3 [facility] Comment on above: Result Comment: For patients on oral anticoagulants, the therapeutic INR reference range is 2.0 to 3.5 Performed By: #### P OCPTINR ####[facility] [id number] [place], [place] [id number] POC PT Result (office) 15.8 seconds High 9.4-12.1 [facility] Comment on above: Performed By: #### P OCPTINR ####[address] [id number] Nuclear Medicine Stress Repo rton 02-21-2021 Nuclear Medicine Stress Report [address] [address] Nuclear Medicine Stress Report Signed PRELIMINARY DRAFT REPORT UNTIL ELECTRONICALLY SIGNED PATIENT: Mick Cottrell MR#: [id number] : 1940 AGE/SEX: 80 / M ADMITTED: 02/21/21 OUTSIDE LOCN: LOCATION: [facility] ATTENDING: Mary Kay Ty ACTIVITY THERAPY SPECIALIST READING PHYSICIAN: Zay Boo TECHNOLOGIST: Ingrid Douglass ORDER PHYSICIAN: Mary Kay Ty PRIMARY PHYSICIAN: Grace Gtz DATE OF SERVICE: 02/21/21 ACCESSION NUMBERS(S): [id number] HT: 182.88 WT: 190 PROCEDURE(S): SP cardiac nuc spect multi pro cc: ; Regadenoson Nuclear Stress Name: Mick Cottrell Date of Study: 02/21/2021 Date: 1940 Ht: 72.0 in Medical [id number] Age: 80 Wt: 190.0 lb Record#: Gender: M Order #: [id number] Location: [facility] OP Room: [facility] Supervising Provider: Allie Isidro CNP Reading Physician: Zay Boo MD Ordering Physician: Karson Demarco Stress Technologist: Ingrid Douglass RRT Returner: Pj Medina Indications: Chest Pain Impression: * No significant perfusion defects on exam to indicate ischemia. * A small, moderate intensity, fixed, inferior wall perfusion defect is noted suggestive of prior infarct. * LVEF is mildly reduced at 47% with normal wall motion. Borderline TID: 1.20. * Normal hemodynamic response to pharmacologic stress. * Inconclusive ECG response to pharmacologic stress due to resting ECG abnormalities. * Recommend clinical correlation. History: Hypertension Diabetes Stress Test Summary: Stress Test Type: Pharmacologic Regadenoson 0.4mg/5ml given IV Baseline Information: Initial Heart Rate: 66 Blood Pressure: 180/90 Stress Information: Stress Time: 4 min 00 sec Test Terminated Due to (primary): As per protocol Maximum Blood Pressure: 162/84 Maximum Heart Rate: 97 Percent Maximum Heart Rate Achieved: 69 Double Product: 80536 METS Reached: 1 Symptoms: No chest symptoms Nuclear Summary: SPECT myocardial perfusion imaging using Tc99m Sestamibi given intravenously was performed at rest and following cardiac stress testing. The resting images were obtained following initial dose of 12.2 mCi. Following stress an additional dose of 33.3 mCi was given at peak exercise or 30 seconds post regadenoson infusion. Findings: Resting ECG demonstrated non-specific ST-T wave changes. No arrhythmias were noted during stress. Normal hemodynamic responses to pharmacologic stress. Patient had no chest pain during stress. Pharmacologic stress ECG is non diagnostic for ischemia due to baseline non-specific ST and T changes. Study quality is average. Stress EF = 47%, mildly reduced. TID ratio = 1.20. The inferior segment shows a severe reduction in perfusion. The inferior segment shows a severe reduction in perfusion. Updated by Zay Boo MD on 10:14 AM electronically signed on 02/21/2021 10:15:35 AM with status of Final Normal [facility] Calculi (stone) Analysison 1 03-31-2020 Calculi Composition SEE NOTE Normal [facility] Comment on above: Order Comment: SM1 6 -RIGHT URETERAL CALCULI Result Comment: Calc berenice composed primarily of: 10% calcium oxalate monohydrate, 30% calcium oxalate dihydrate, and 60% calcium phosphate (hydroxy- and carbonate- apatite). INTERPRETIVE INFORMATION: Calculi (Stone) analysis Calculi are the products of physiological processes that yield crystalline compounds in a matrix of biological compounds and blood. Matrix components are not reported. The clinically significant crystalline components identified in calculi specimens are reported. Gross description may not be consistent with composition determined by FTIR analysis. Performed By: [facility] [address] [place] [id number] Director Of Perioperative Services: Mary Ricketts MD Performed By: #### C ALCAN ####[address] [address] Calculi Description SEE NOTE Normal [facility] Comment on above: Order Comment: SM1 6 -RIGHT URETERAL CALCULI Result Comment: Spec imen consists of four, small, michaels, irregular calculi fragments. Performed By: #### C ALCAN ####[address] [address] Calculi (stone) Analysison 1 03-30-2020 Calculi Mass 9 mg Normal [facility] Comment on above: Order Comment: SM6 -RIGHT URETERAL CALCULI Performed By: #### C ALCAN ####[address] [address] Calculi Number 4 Normal [facility] Comment on above: Order Comment: SM6 -RIGHT URETERAL CALCULI Performed By: #### C ALCAN ####[address] [address] Calculi Size 1 TO 4 Normal [facility] Comment on above: Order Comment: 21SM1 3336 -RIGHT URETERAL CALCULI Performed By: #### C YANETH ####[facility] [id number] [place] [address] Basic Metabolic Panelon 10-3 Calcium [Mass/Vol] 8.5 mg/dL Low 8.6-10.3 [facility] Comment on above: Performed By: #### B MP #### [facility] [address] [place] [address] Chloride [Moles/Vol] 105 mmol/L Normal 98-107 [facility] Comment on above: Performed By: #### B MP #### [facility] [address] [place] [address] CO2 [Moles/Vol] 21 mmol/L Low 23-29 [facility] Comment on above: Performed By: #### B MP #### [facility] [address] [place] [address] Creatinine [Mass/Vol] 1.37 mg/dL High 0.70-1.30 [facility] Comment on above: Performed By: #### B MP #### [facility] [address] [place] [address] eGFR For Americans > 60 Normal > 60 [facility] Comment on above: Result Comment: eGFR = Estimated Glomerular Filtration Rate reported as mL/min/1.73 square meters Chronic Kidney Disease: < 60; Kidney failure: < 15 Performed By: #### B MP #### [facility] [address] [place] [address] eGFR For Non- Americans 50 Low > 60 [facility] Comment on above: Performed By: #### B MP #### [facility] [address] [place] [address] Glucose [Mass/Vol] 182 mg/dL High 70-105 [facility] Comment on above: Performed By: #### B MP #### [facility] [address] [place] [address] Osmolality,Calculated 291 Normal 280-300 [facility] Comment on above: Performed By: #### B MP #### [facility] [address] [place] [address] Potassium [Moles/Vol] 3.7 mmol/L Normal 3.5-5.1 [facility] Comment on above: Performed By: #### B MP #### [facility] [address] [place] [address] Sodium [Moles/Vol] 137 mmol/L Normal 136-145 [facility] Comment on above: Performed By: #### B MP #### [facility] [address] [place] [address] Urea nitrogen [Mass/Vol] 20 mg/dL Normal 8-23 [facility] Comment on above: Performed By: #### B MP #### [facility] [address] [place] [address] Urea nitrogen/Creatinine [Mass ratio] 15 mg/mg Normal 6-26 [facility] Comment on above: Performed By: #### B MP #### [facility] [address] [place] [address] Complete Blood Count with Di ffon 01-22-2021 Hemoglobin (Bld) [Mass/Vol] 12.7 g/dL Low 12.9-16.9 [facility] Comment on above: Performed By: #### B MP #### [facility] [address] [place] [address] Basophils (Bld) [#/Vol] 0.0 10*3/uL Normal 0.0-0.2 [facility] Comment on above: Performed By: #### B MP #### [facility] [address] [place] [address] Basophils/100 WBC (Bld) 0.1 % Normal [facility] Comment on above: Performed By: #### B MP #### [facility] [address] [place] [address] Eosinophils (Bld) [#/Vol] 0.0 10*3/uL Normal 0.0-0.6 [facility] Comment on above: Performed By: #### B MP #### [facility] [address] [place] [address] Eosinophils/100 WBC (Bld) 0.1 % Normal [facility] Comment on above: Performed By: #### B MP #### [facility] [address] [place] [address] Erythrocyte distribution width (RBC) [Ratio] 15.2 % High 11.5-14.5 [facility] Comment on above: Performed By: #### B MP #### [facility] [address] [place] [address] Hematocrit (Bld) [Volume fraction] 38.2 % Normal 37.5-50.1 [facility] Comment on above: Performed By: #### B MP #### [facility] [address] [place] [address] Immature granulocytes/100 WBC (Bld) 0.4 % Normal 0-4 [facility] Comment on above: Performed By: #### B MP #### [facility] [address] [place] [address] Lymphocytes (Bld) [#/Vol] 0.6 10*3/uL Normal 0.6-4.6 [facility] Comment on above: Performed By: #### B MP #### [facility] [address] [place] [address] Lymphocytes/100 WBC (Bld) 4.2 % Normal [facility] Comment on above: Performed By: #### B MP #### [facility] [address] [place] [address] MCH (RBC) [Entitic mass] 31.2 pg Normal 28.0-33.3 [facility] Comment on above: Performed By: #### B MP #### [facility] [address] [place] [address] MCV (RBC) [Entitic vol] 93.9 fL Normal 83.0-100.0 [facility] Comment on above: Performed By: #### B MP #### [facility] [address] [place] [address] Mean Corpuscular HGB Conc 33.2 g/dL Normal 31.6-35.5 [facility] Comment on above: Performed By: #### B MP #### [facility] [address] [place] [address] Monocytes (Bld) [#/Vol] 1.1 10*3/uL Normal 0.0-1.3 [facility] Comment on above: Performed By: #### B MP #### [facility] [address] [place] [address] Monocytes/100 WBC (Bld) 7.5 % Normal [facility] Comment on above: Performed By: #### B MP #### [facility] [address] [place] [address] Neutrophils (Bld) [#/Vol] 12.2 10*3/uL High 1.6-8.9 [facility] Comment on above: Performed By: #### B MP #### [facility] [address] [place] [address] Platelet mean volume (Bld) [Entitic vol] 10.7 fL Normal 9.4-12.4 [facility] Comment on above: Performed By: #### B MP #### [facility] [address] [place] [address] Platelets (Bld) [#/Vol] 171 10*3/uL Normal 140-400 [facility] Comment on above: Performed By: #### B MP #### [facility] [address] [place] [address] RBC (Bld) [#/Vol] 4.07 10*6/uL Low 4.19-5.50 [facility] Comment on above: Performed By: #### B MP #### [facility] [address] [place] [address] Segmented neutrophils/100 WBC (Bld) 87.7 % Normal [facility] Comment on above: Performed By: #### B MP #### [facility] [address] [place] [address] WBC (Bld) [#/Vol] 13.9 10*3/uL High 4.3-11.1 [facility] Comment on above: Performed By: #### B MP #### [facility] [address] [place] [address] Internal Med Progress Noteon 01-22-2021 Internal Med Progress Note [address] [address] Internal Med Progress Note Cancelled PRELIMINARY DRAFT REPORT UNTIL ELECTRONICALLY SIGNED PATIENT: Mick Cottrell MR#: [id number] : 1940 AGE/SEX: 80 / M ADMITTED: 01/22/21 0725 OUTSIDE LOCN: LOCATION: [facility] 2N15-A ATTENDING: Matt Parisi MD cc: ; Hospitalist Progress Note - Encounter Date of Encounter: 01/22/21 - Exam Vitals: Temp Pulse Resp BP Pulse Ox 97.9 F 63 18 155/82 94 01/22/21 06:34 01/22/21 06:34 01/22/21 06:34 01/22/21 06:34 01/22/21 06:34 - Assessment and Plan (1) Ureteral stone with hydronephrosis Status: Acute (2) Hypertensive urgency Status: Acute (3) Hematuria Status: Acute (4) MARYLOU (acute kidney injury) Status: Acute (5) Diabetes mellitus Status: Chronic (6) History of aortic valve replacement with bioprosthetic valve Status: Chronic (7) Paroxysmal atrial fibrillation Status: Chronic (8) DVT prophylaxis Status: Acute Hospitalist Results - Labs Labs: All Lab Results (24 Hours) 01/21/21 01/21/21 01/21/21 Range/Units 08:56 11:54 15:54 WBC (4.3-11.1) K/mcL RBC (4.19-5.50) M/mcL Hgb (12.9-16.9) g/dL Hct (37.5-50.1) % MCV (83.0-100.0) fL MCH (28.0-33.3) pg MCHC (31.6-35.5) g/dL RDW (11.5-14.5) % Plt Count (140-400) K/mcL MPV (9.4-12.4) fL Immature Gran % (0-4) % Seg Neutrophils % % Lymphocytes % % Monocytes % % Eosinophils % % Basophils % % Neutrophils # (1.6-8.9) K/mcL Lymphocytes # (0.6-4.6) K/mcL Monocytes # (0.0-1.3) K/mcL Eosinophils # (0.0-0.6) K/mcL Basophils # (0.0-0.2) K/mcL PT (9.4-12.1) Seconds INR Sodium (136-145) mEq/L Potassium (3.5-5.1) mEq/L Chloride (98-107) mEq/L Carbon Dioxide (23-29) mEq/L BUN (8-23) mg/dL Creatinine (0.70-1.30) mg/dL Est GFR ( Amer) (> 60) Est GFR (Non-Af Amer) (> 60) BUN/Creatinine Ratio (6-26) Glucose (70-105) mg/dL POC Glucose 158 H 202 H 258 H (70-99) mg/dL Calculated Osmolality (280-300) Calcium (8.6-10.3) mg/dL 01/21/21 01/22/2121 Range/Units 21:00 00:45 00:45 WBC 13.9 H (4.3-11.1) K/mcL RBC 4.07 L (4.19-5.50) M/mcL Hgb 12.7 L D (12.9-16.9) g/dL Hct 38.2 (37.5-50.1) % MCV 93.9 (83.0-100.0) fL MCH 31.2 (28.0-33.3) pg MCHC 33.2 (31.6-35.5) g/dL RDW 15.2 H (11.5-14.5) % Plt Count 171 (140-400) K/mcL MPV 10.7 (9.4-12.4) fL Immature Gran % 0.4 (0-4) % Seg Neutrophils % 87.7 % Lymphocytes % 4.2 % Monocytes % 7.5 % Eosinophils % 0.1 % Basophils % 0.1 % Neutrophils # 12.2 H (1.6-8.9) K/mcL Lymphocytes # 0.6 (0.6-4.6) K/mcL Monocytes # 1.1 (0.0-1.3) K/mcL Eosinophils # 0.0 (0.0-0.6) K/mcL Basophils # 0.0 (0.0-0.2) K/mcL PT (9.4-12.1) Seconds INR Sodium 137 (136-145) mEq/L Potassium 3.7 (3.5-5.1) mEq/L Chloride 105 (98-107) mEq/L Carbon Dioxide 21 L (23-29) mEq/L BUN 20 (8-23) mg/dL Creatinine 1.37 H (0.70-1.30) mg/dL Est GFR ( Amer) > 60 (> 60) Est GFR (Non-Af Amer) 50 L (> 60) BUN/Creatinine Ratio 15 (6-26) Glucose 182 H (70-105) mg/dL POC Glucose 216 H (70-99) mg/dL Calculated Osmolality 291 (280-300) Calcium 8.5 L (8.6-10.3) mg/dL 01/22/21 01/22/21 Range/Units 00:45 06:32 WBC (4.3-11.1) K/mcL RBC (4.19-5.50) M/mcL Hgb (12.9-16.9) g/dL Hct (37.5-50.1) % MCV (83.0-100.0) fL MCH (28.0-33.3) pg MCHC (31.6-35.5) g/dL RDW (11.5-14.5) % Plt Count (140-400) K/mcL MPV (9.4-12.4) fL Immature Gran % (0-4) % Seg Neutrophils % % Lymphocytes % % Monocytes % % Eosinophils % % Basophils % % Neutrophils # (1.6-8.9) K/mcL Lymphocytes # (0.6-4.6) K/mcL Monocytes # (0.0-1.3) K/mcL Eosinophils # (0.0-0.6) K/mcL Basophils # (0.0-0.2) K/mcL PT 28.1 H (9.4-12.1) Seconds INR 2.5 Sodium (136-145) mEq/L Potassium (3.5-5.1) mEq/L Chloride (98-107) mEq/L Carbon Dioxide (23-29) mEq/L BUN (8-23) mg/dL Creatinine (0.70-1.30) mg/dL Est GFR ( Amer) (> 60) Est GFR (Non-Af Amer) (> 60) BUN/Creatinine Ratio (6-26) Glucose (70-105) mg/dL POC Glucose 175 H (70-99) mg/dL Calculated Osmolality (280-300) Calcium (8.6-10.3) mg/dL - ABG Interpretation ABG results: PT/INR, D-dimer PT 28.1 Seconds (9.4-12.1) H 01/22/21 00:45 - Impressions Impressions Retrograde Pyelogram 01/21/21 08:52 IMPRESSION: Intraprocedural fluoroscopic spot images as above. See separate procedure report for more information. D/ / 01/21/2021 09:30:19 [facility]ulo [facility] Interpreting Provider: Rekha Angulo MD Consult Discharge Plan - Plan Referrals: Grace Gtz MD [Primary (more content not included)... Normal [facility] POC Glucometer Teston 2020 Glucose [Mass/Vol] 158 mg/dL High 70-99 [facility] Comment on above: Performed By: #### L IP, HEPATIC, BMP, ROSSY #### [facility] [address] [place] [address] Glucose [Mass/Vol] 175 mg/dL High 70-99 [facility] Comment on above: Performed By: #### P OCGLUMETER ####[facility] [address] [place] [address] Prothrombin Time INRon 01-22 INR Coag (PPP) [Relative time] 2.5 {INR} Normal [facility] Comment on above: Result Comment: For patients on oral anticoagulants, the therapeutic INR reference range is 2.0 to 3.5 Performed By: #### L IP, HEPATIC, BMP, ROSSY #### [facility] [address] [place] [address] PT Coag (PPP) [Time] 28.1 s High 9.4-12.1 [facility] Comment on above: Performed By: #### L IP, HEPATIC, BMP, ROSSY #### [facility] [address] [place] [address] Urology Progress Noteon 12-25 Urology Progress Note [address] [address] Urology Progress Note Signed PRELIMINARY DRAFT REPORT UNTIL ELECTRONICALLY SIGNED PATIENT: Mick Cottrell MR#: [id number] : 1940 AGE/SEX: 80 / M ADMITTED: 01/22/21 0725 OUTSIDE LOCN: LOCATION: 2N 2N15-A ATTENDING: Matt Parisi MD cc: ; Date of Encounter: 01/22/21 Time of Encounter: 09:49 - Assessment and Plan (1) Renal insufficiency Status: Acute (2) Ureteral stone with hydronephrosis Status: Acute Assessment and plan: Resolved. We discussed that he has a stent in place which can cause urgency, frequency, urge incontinence. My office will contact patient to arrange outpatient cystoscopy with stent removal Progress Note Narrative: Postoperative day #1 status post stone extraction and stent placement. He has had some urinary incontinence but overall feels good Objective Initial Vital Signs Temp Pulse Resp BP Pulse Ox 98.5 F 71 18 220/104 96 01/20/21 18:01 01/20/21 18:01 01/20/21 18:01 01/20/21 18:01 01/20/21 18:01 - General physical appearance Present: well developed, no distress - Labs 01/22/21 00:45 01/22/21 00:45 Diabetes panel 01/22/21 Range/Units 00:45 Sodium 137 (136-145) mEq/L Potassium 3.7 (3.5-5.1) mEq/L Chloride 105 (98-107) mEq/L Carbon Dioxide 21 L (23-29) mEq/L BUN 20 (8-23) mg/dL Creatinine 1.37 H (0.70-1.30) mg/dL Glucose 182 H (70-105) mg/dL Calcium 8.5 L (8.6-10.3) mg/dL Calcium panel 01/22/21 Range/Units 00:45 Calcium 8.5 L (8.6-10.3) mg/dL Pituitary panel 01/22/21 Range/Units 00:45 Sodium 137 (136-145) mEq/L Potassium 3.7 (3.5-5.1) mEq/L Chloride 105 (98-107) mEq/L Carbon Dioxide 21 L (23-29) mEq/L BUN 20 (8-23) mg/dL Creatinine 1.37 H (0.70-1.30) mg/dL Glucose 182 H (70-105) mg/dL Calcium 8.5 L (8.6-10.3) mg/dL Adrenal panel 01/22/21 Range/Units 00:45 Sodium 137 (136-145) mEq/L Potassium 3.7 (3.5-5.1) mEq/L Chloride 105 (98-107) mEq/L Carbon Dioxide 21 L (23-29) mEq/L BUN 20 (8-23) mg/dL Creatinine 1.37 H (0.70-1.30) mg/dL Glucose 182 H (70-105) mg/dL Calcium 8.5 L (8.6-10.3) mg/dL Consult Discharge Plan - Plan Referrals: Grace Gtz MD [Primary Care Provider] - Prescriptions: Tamsulosin [Flomax] 0.4 mg PO DAILY 30 Days #30 capsule Transmission Status: Received by [facility] 312 Phenazopyridine [Pyridium] 100 mg PO TID PRN #30 tablet PRN Reason: dysruria Transmission Status: Received by [facility] Documented By: Ramesh Stringer MD Signed By: 01/22/21950 DD/ 8 Initialized By: [id number] [facility] Accessionon 01-21-2021 Accession RUN DATE: 01/26/21 [facility] - LAB *LIVE* PAGE 1 RUN TIME: 1055 PATIENT: Mick Cottrell ACCT: [id number] LOC: 2NNU U: [id number] AGE/SX: 80/M ROOM: [facility] RE01/22/21 STATUS: DIS IN BED: A DIS: 01/22/[address]: Matt Parisi Specimen: [id number] Received: 01/23/21 Status: CHRISTIN Rodriguez Num: [id number] Spec Type: Surgical Subm Dr: Ramesh Stringer Final Diagnosis A. Calculi, right ureteral calculus, extraction: * Fragments of urinary calculi identified and submitted for chemical analysis * Gross examination only Dictated by: Ya Patel MD Microscopic Description Microscopic examination is not performed. Gross Description The specimen is received fresh labeled with the patient's name designated right ureteral calculus" and consists of four michaels-edwards irregular calculus fragments aggregating to 0.4 x 0.3 x 0.1 cm. The calculi are sent for analysis. Gross only Tissue(s) Submitted:A. Stones - RIGHT URETERAL CALCULI Clinical History Right ureteral stone Signed ____(signature on file)____ Ya Patel MD 01/26/21 1055 Patient: Mick Cottrell AGE/SEX: 80/M ACCT: [id number] U: [id number] RUN DATE: 01/26/21 [facility] - LAB *LIVE* PAGE 1 RUN TIME: 1055 Patient: Mick Cottrell [id number] (Continued) Normal [facility] Comment on above: Performed By: #### B MP #### [facility] [address] [place] [address] Anesthesia Evaluation Post O travis 01-21-2021 Anesthesia Evaluation Post Op [address] [address] Anesthesia Evaluation Post Op Signed PRELIMINARY DRAFT REPORT UNTIL ELECTRONICALLY SIGNED PATIENT: Mick Cottrell MR#: [id number] : 1940 AGE/SEX: 80 / M ADMITTED: 01/21/21 0040 OUTSIDE LOCN: LOCATION: [address] [place], [place] [address] ATTENDING: Matt Parisi MD cc: ; Date of Encounter: 01/21/21 Time of Encounter: 09:24 - Vital Signs Vital Signs: Vital Signs/O2 Sat/Glucose, Most Recent Temp Pulse Resp BP Pulse Ox 97.8 F 75 18 179/99 97 01/21/21 09:23 01/21/21 09:23 01/21/21 09:23 01/21/21 09:23 01/21/21 09:23 Blood Glucose* 158 - Lungs Lungs: Clear Ascult./Percussion - Airway Airway: Non-obstructed - Cardiovascular Regular Rate, Baseline Rhythm - Mental Status Mental Status: Alert Oriented, Answers Appropriately - Pain Pain Scale: 0 Pain Scale used: Numeric (1 - 10) - Nausea Vomiting Nausea Vomiting: Not Present - Hydration Hydration: Ice chips - Discharge PostOp Status: Transfer Patient to floor Documented By: Anshul Brennan CRNA Signed By: 01/21/2192401/22/21717 DD/ 3 Initialized By: [id number] Normal [facility] Anesthesia Evaluation PreOpo n 01-21-2021 Anesthesia Evaluation PreOp [address] [address] Anesthesia Evaluation PreOp Signed PRELIMINARY DRAFT REPORT UNTIL ELECTRONICALLY SIGNED PATIENT: Mick Cottrell MR#: [id number] : 1940 AGE/SEX: 80 / M ADMITTED: 01/21/21 0040 OUTSIDE LOCN: LOCATION: [address] [place] [address] ATTENDING: Matt Parisi MD cc: ; Date of Encounter: 01/21/21 Time of Encounter: 07:15 - Past History Planned Operation: Right USE Cardiac History: HTN (came in with very high pressures - was on cardene drip, pressures now better), Cardiac Surgery (AVR) Pulmonary History: Former smoker, COPD, SANJU Dx, Other (PE, covid Mar 2020) [employer] History: Denies Any Significant HX Other Medical History: Renal (stone), Diabetes Type II Anesthesia History: No Prior Anesthetic Complications, Past Anesthesia (cataract, herniorrhaphy, sinus surgery, tonsillectomy, nasal surgery, loop recorder removal. heart valve replacement - bovine valve) Alcohol Use: none Drug use: none Medications and Allergies Aspirin Enteric Coated [Aspirin EC] 81 mg PO DAILY 09/30/15 [History] Mirtazapine [Remeron] 15 mg PO HS 03/05/20 [History] Albuterol Sulfate [Albuterol HFA Inhaler for Take Home Only] 2 puff IH Q4H PRN 03/06/20 [History] Atorvastatin [Lipitor] 40 mg PO HS 03/06/20 [History] Finasteride [Proscar] 5 mg PO DAILY 03/06/20 [History] Furosemide [Lasix] 20 mg PO QAM 03/06/20 [History] Montelukast [Singulair] 10 mg PO QPM 03/06/20 [History] Topiramate [Topamax] 50 mg PO BID 03/06/20 [History] Vit C/E/Zn/Coppr/Lutein/Z eaxan [Preservision Areds 2 Softgel] 1 cap PO BID 03/06/20 [History] Losartan [Cozaar] 25 mg PO DAILY #30 tablet 03/19/20 [Rx] Budesonide/Formoterol 160/4.5 [Symbicort 160/4.5] 2 puff IH BIDR inh 04/09/20 [Rx] Cholecalciferol (D-3) [Vitamin D] 1,000 unit PO DAILY tablet 04/09/20 [Rx] Ipratropium [ATROVENT Inhaler] 2 puff IH [id number] inhaler 04/09/20 [Rx] Bisacodyl [Dulcolax] 10 mg PO DAILY PRN tablet 04/27/20 [Rx] Docusate [Colace] 100 mg PO BID capsule 04/27/20 [Rx] Magnesium Oxide [Mag-Ox] 400 mg PO BID tablet 04/27/20 [Rx] Acetaminophen [Tylenol] 650 mg PO Q4H PRN 05/17/20 [History] Chloraseptic [place] [Chloraseptic] 5 spray PO TID 05/17/20 [History] Enoxaparin [Lovenox] 40 mg SQ HS 05/17/20 [History] Fluticasone Propion/Salmeterol [Wixela 500-50 Inhub] 1 puff IH BID 05/17/20 [History] Glucagon,Human Recombinant [Glucagon Emergency Kit] 1 mg IM PRN PRN 05/17/20 [History] Magnesium Hydroxide [Milk of Magnesia] 1,200 mg PO DAILY PRN 05/17/20 [History] Metformin HCl [Glucophage] 1,000 mg PO BID 05/17/20 [History] Omeprazole [PriLOSEC] 40 mg PO QAM 05/17/20 [History] polyethylene glycoL 3350 [MiraLAX] 17 gm PO DAILY 05/17/20 [History] Metoprolol [Lopressor] 50 mg PO BID 30 Days #60 tablet 05/24/20 [Rx] Warfarin Sodium 4 mg PO DAILY 30 Days #30 tablet 05/24/20 [Rx] HYDROcodone/Acet 5/325 mg [Ferriday 5-325 mg] 1 tab PO Q6H PRN 3 Days #12 tab 01/11/21 [Rx] Allergies Allergy/AdvReac Type Severity Reaction Status Date / Time Penicillins Allergy Severe Swelling Verified 05/17/20 17:22 of Lip/Tongue/Throat - Meds/Allergy Pre-op Review Medications Reviewed: Yes Allergies Reviewed: Yes Beta Blockers on Current Med List: No Anesthesia Results - Labs 01/21/21 02:01 01/21/21 02:01 - Imaging EKG: report reviewed ( Interpretive Statements Sinus tachycardia Probable left atrial enlargement Minimal ST depression, anterolateral leads Electronically Signed On 05-18-2020 23:38:02 EST by Boubacar Walls) Additional studies: ECHO 04/2020 EV/EV limited echocardiogram Impressions: * Limited Echo for Indication: Pulmonary Embolus * Blood pressure 126/55 mmHg at time of study. * LVEF 60-65%. * Right ventricular size is not optimally visualized. Grossly, systolic function is normal in appearance. * IVC is dilated suggesting elevated right atrial pressure. * Recommend clinical correlation. Anesthesia Exam Vital Signs Temp Pulse Resp BP Pulse Ox 01/21/21 06:54 98.5 F 74 15 160/88 94 01/21/21 06:00 81 160/72 01/21/21 05:15 68 171/66 01/21/21 04:45 67 165/71 01/21/21 04:30 67 186/71 01/21/21 04:15 98.5 F 86 20 175/64 97 01/21/21 04:05 66 209/87 01/21/21 03:45 73 189/78 01/21/21 03:30 69 182/79 01/21/21 03:15 74 191/86 01/21/21 03:00 70 206/73 01/21/21 02:57 77 01/21/21 02:54 96 01/21/21 02:30 64 229/98 01/21/21 02:15 61 233/89 01/21/21 01:54 97.8 F 66 16 250/80 96 01/21/21 00:34 65 16 177/90 92 01/21/21 00:15 58 19 220/87 97 01/20/21 22:49 61 18 214/87 96 01/20/21 21:00 73 18 223/85 95 01/20/21 18:43 70 18 185/94 97 01/20/21 18:01 98.5 F 71 18 220/104 96 Intake and Output 01/20/21 01/20/21 01/21/21 15:59 23:59 07:59 Intake Total 150 / 150 Output Total 200 / 200 Balance -50 / -50 Intake (more content not included)... Normal [facility] Complete Blood Count with Di ffon 01-21-2021 Basophils (Bld) [#/Vol] 0.0 10*3/uL Normal 0.0-0.2 [facility] Comment on above: Performed By: #### C BC ####[address] [address] Basophils/100 WBC (Bld) 0.4 % Normal [facility] Comment on above: Performed By: #### C BC ####[address] [address] Eosinophils (Bld) [#/Vol] 0.1 10*3/uL Normal 0.0-0.6 [facility] Comment on above: Performed By: #### C BC ####[address] [address] Eosinophils/100 WBC (Bld) 1.1 % Normal [facility] Comment on above: Performed By: #### C BC ####[address] [address] Erythrocyte distribution width (RBC) [Ratio] 15.3 % High 11.5-14.5 [facility] Comment on above: Performed By: #### C BC ####[address] [address] Hematocrit (Bld) [Volume fraction] 44.4 % Normal 37.5-50.1 [facility] Comment on above: Performed By: #### C BC ####[address] [address] Hemoglobin (Bld) [Mass/Vol] 14.6 g/dL Normal 12.9-16.9 [facility] Comment on above: Performed By: #### C BC ####[address] [address] Immature granulocytes/100 WBC (Bld) 0.5 % Normal 0-4 [facility] Comment on above: Performed By: #### C BC ####[address] [address] Lymphocytes (Bld) [#/Vol] 1.2 10*3/uL Normal 0.6-4.6 [facility] Comment on above: Performed By: #### C BC ####[address] [address] Lymphocytes/100 WBC (Bld) 11.0 % Normal [facility] Comment on above: Performed By: #### C BC ####[address] [address] MCH (RBC) [Entitic mass] 31.5 pg Normal 28.0-33.3 [facility] Comment on above: Performed By: #### C BC ####[address] [address] MCV (RBC) [Entitic vol] 95.7 fL Normal 83.0-100.0 [facility] Comment on above: Performed By: #### C BC ####[address] [address] Mean Corpuscular HGB Conc 32.9 g/dL Normal 31.6-35.5 [facility] Comment on above: Performed By: #### C BC ####[address] [address] Monocytes (Bld) [#/Vol] 0.8 10*3/uL Normal 0.0-1.3 [facility] Comment on above: Performed By: #### C BC ####[address] [address] Monocytes/100 WBC (Bld) 7.3 % Normal [facility] Comment on above: Performed By: #### C BC ####[address] [address] Neutrophils (Bld) [#/Vol] 8.6 10*3/uL Normal 1.6-8.9 [facility] Comment on above: Performed By: #### C BC ####[facility] [address] [place] [address] Platelet mean volume (Bld) [Entitic vol] 10.8 fL Normal 9.4-12.4 [facility] Comment on above: Performed By: #### C BC ####[facility] [address] [place] [address] Platelets (Bld) [#/Vol] 175 10*3/uL Normal 140-400 [facility] Comment on above: Performed By: #### C BC ####[facility] [address] [place] [address] RBC (Bld) [#/Vol] 4.64 10*6/uL Normal 4.19-5.50 [facility] Comment on above: Performed By: #### C BC ####[facility] [address] [place] [address] Segmented neutrophils/100 WBC (Bld) 79.7 % Normal [facility] Comment on above: Performed By: #### C BC ####[address] [address] WBC (Bld) [#/Vol] 10.8 10*3/uL Normal 4.3-11.1 [facility] Comment on above: Performed By: #### C BC ####[facility] [address] [place] [address] Comprehensive Metabolic Pane marquise 01-21-2021 Alanine Aminotransferase 17 Units/L Normal 7-52 [facility] Comment on above: Performed By: #### C UU #### [facility] [address] [place] [address] Albumin [Mass/Vol] 3.9 g/dL Normal 3.5-5.7 [facility] Comment on above: Performed By: #### C UU #### [facility] [address] [place] [address] Albumin/Globulin [Mass ratio] 1.4 {ratio} Normal 1.1-2.2 [facility] Comment on above: Performed By: #### C UU #### [facility] [address] [place] [address] Alkaline Phosphatase 109 Units/L High 34-104 [facility] Comment on above: Performed By: #### C UU #### [facility] [address] [place] [address] Aspartate Amino Transferase 13 Units/L Normal 13-39 [facility] Comment on above: Performed By: #### C UU #### [facility] [address] [place] [address] Bilirubin [Mass/Vol] 0.5 mg/dL Normal 0.3-1.0 [facility] Comment on above: Performed By: #### C UU #### [facility] [address] [place] [address] Calcium [Mass/Vol] 8.9 mg/dL Normal 8.6-10.3 [facility] Comment on above: Performed By: #### C UU #### [facility] [address] [place] [address] Chloride [Moles/Vol] 105 mmol/L Normal 98-107 [facility] Comment on above: Performed By: #### C UU #### [facility] [address] [place] [address] CO2 [Moles/Vol] 24 mmol/L Normal 23-29 [facility] Comment on above: Performed By: #### C UU #### [facility] [address] [place] [address] Creatinine [Mass/Vol] 1.35 mg/dL High 0.70-1.30 [facility] Comment on above: Performed By: #### C UU #### [facility] [address] [place] [address] eGFR For Americans > 60 Normal > 60 [facility] Comment on above: Result Comment: eGFR = Estimated Glomerular Filtration Rate reported as mL/min/1.73 square meters Chronic Kidney Disease: < 60; Kidney failure: < 15 Performed By: #### C UU #### [facility] [address] [place] [address] eGFR For Non- Americans 51 Low > 60 [facility] Comment on above: Performed By: #### C UU #### [facility] [address] [place] [address] Globulin (S) [Mass/Vol] 2.8 g/dL Normal 2.4-3.5 [facility] Comment on above: Performed By: #### C UU #### [facility] [address] [place] [address] Glucose [Mass/Vol] 149 mg/dL High 70-105 [facility] Comment on above: Performed By: #### C UU #### [facility] [address] [place] [address] Osmolality,Calculated 291 Normal 280-300 [facility] Comment on above: Performed By: #### C UU #### [facility] [address] [place] [address] Potassium [Moles/Vol] 3.6 mmol/L Normal 3.5-5.1 [facility] Comment on above: Performed By: #### C UU #### [facility] [address] [place] [address] Protein [Mass/Vol] 6.7 g/dL Normal 6.4-8.9 [facility] Comment on above: Performed By: #### C UU #### [facility] [address] [place] [address] [phone] Sodium [Moles/Vol] 139 mmol/L Normal 136-145 [facility] Comment on above: Performed By: #### C UU #### [facility] [address] [place] [address] [phone] Urea nitrogen [Mass/Vol] 13 mg/dL Normal 8-23 [facility] Comment on above: Performed By: #### C UU #### [facility] [address] [place] [address] [phone] Urea nitrogen/Creatinine [Mass ratio] 10 mg/mg Normal 6-26 [facility] Comment on above: Performed By: #### C UU #### [facility] [address] [place], [place] [phone] Culture,Urineon 01-21-2021 Culture,Urine Culture,Urine: [place] Count 1 uL (OrganismID: 1) >100,000 (OrganismID: 1) Mixed culture? (OrganismID: 1) Mixed organisms resembling possible pathogens. (OrganismID: 1) (CONT.) (OrganismID: 1) Please resubmit if UTI is suspected. (OrganismID: 1) Normal [facility] Comment on above: Performed By: #### C UU #### [facility] [address] [place] [address] [phone] Internal Med History&Physica marquise 01-21-2021 Internal Med History&Physical [address] [address] Internal Med History Physical Signed with Addenda PRELIMINARY DRAFT REPORT UNTIL ELECTRONICALLY SIGNED PATIENT: Mick Cottrell MR#: [id number] : 1940 AGE/SEX: 80 / M ADMITTED: 01/21/21 0040 OUTSIDE LOCN: LOCATION: [facility] 2N15-A ATTENDING: Haroon Stovall MD cc: ; ADDENDUM I saw and evaluated the patient. I reviewed the resident?s note, performed my own physical examination and agree with findings and plan as documented in the resident?s note. Patient seen and examined on 01/21/21 at 0230. Patient presented to the ER with right groin pain. Found to have obstructing stone and hematuria. He is on warfarin as well. Urology notified, taking the patient to the OR this morning. Patient also had significantly elevated blood pressure that was not controlled in the ER. Started patient on cardene drip, transition to home meds when able. Addendum Dictated By: Haroon Stovall Addendum Signed By: 01/21/21 0656 ADD/ATT: 01/21/2156 Addendum Dictated By: Date of Encounter: 01/21/21 Time of Encounter: 01:35 Internal Medicine - H P: HPI Chief complaint: Groin pain History of present illness: Mr. Cottrell is a 80 year old male PMH DM, HTN, valve replacement, AF, hx PE (on warfarin), nephrolithiasis, here for R groin pain. Patient states that pain first began about 2 weeks ago, he was seen in the ED on 01/11, CT scan showed a obstructing nephrolithiasis. At that time neurology recommended outpatient follow-up and patient was sent home. He states that the pain resolved after returning home and did not return until today. He states that he developed constant pinching pain at his right groin. He also noted irregular urinary stream and noted that he had passed a large amount of blood in his urine with clots. He called EMS as the pain was too severe to drive. Patient denies any increase or decrease in his urination, fever, chills, nausea, vomiting, upper abdominal pain, loss of consciousness, chest pain, shortness of breath. ED vitals and labs reviewed: Hypertensive, otherwise vitally stable. INR 2.5. UA large blood, small LE. CT scan reviewed: High-grade acute right obstructive uropathy increasing in severity from 01/11/2021. The obstructing 6 mm right ureteral calculus has moved from the level of the iliac crest on 01/11/2021 to the level of the iliac vessel crossing. There is significant right perinephric fat stranding and the right kidney is enlarged. Pyonephrosis should be considered. Patient admitted for obstructive nephrolithiasis, uropathy and pyelonephritis CODE STATUS discussed with patient who wishes to be full code Surgical and family history reviewed with patient, noncontributory Past Med Surg Social Fam HX - Past Medical History Attestation: Yes The following information was validated with the patient. Medical history: cancer, COPD, CVA, diabetes, GERD, hyperlipidemia, hypertension Additional medical history: right lung drainage - pt reports 1800cc of drainage from "center sac" of lung Psychiatric history: depression - Past Surgical History Surgical History: cataract, herniorrhaphy, sinus surgery, tonsillectomy Additional surgical history: lung drained, tonsillectomy, nasal surgery, loop recorder removal. heart valve replacement - cow valve - Social History Smoking Status: Former smoker Smokeless Tobacco Status: No Alcohol use: none Drug use: none - Family History Father Living Status: Hx Family Cardiac Disorders: Yes (HTN) Hx Family Cancer: Yes (bladder) Hx Family Endocrine Disorder: Yes (DM) Mother Living Status: Hx Family Cardiac Disorders: Yes (HTN, CAD) Hx Family Cancer: Yes (breast, colon) Hx Family Endocrine Disorder: Yes (DM) Internal Medicine - H P: Meds Aspirin Enteric Coated [Aspirin EC] 81 mg PO DAILY 09/30/15 [History] Mirtazapine [Remeron] 15 mg PO HS 03/05/20 [History] Albuterol Sulfate [Albuterol HFA Inhaler for Take Home Only] 2 puff IH Q4H PRN 03/06/20 [History] Atorvastatin [Lipitor] 40 mg PO HS 03/06/20 [History] Finasteride [Proscar] 5 mg PO DAILY 03/06/20 [History] Furosemide [Lasix] 20 mg PO QAM 03/06/20 [History] Montelukast [Singulair] 10 mg PO QPM 03/06/20 [History] Topiramate [Topamax] 50 mg PO BID 03/06/20 [History] Vit C/E/Zn/Coppr/Lutein/Z eaxan [Preservision Areds 2 Softgel] 1 cap PO BID 03/06/20 [History] Losartan [Cozaar] 25 mg PO DAILY #30 tablet 03/19/20 [Rx] Budesonide/Formoterol 160/4.5 [Symbicort 160/4.5] 2 puff IH BIDR inh 04/09/20 [Rx] Cholecalciferol (D-3) [Vitamin D] 1,000 unit PO DAILY tablet 04/09/20 [Rx] Ipratropium [ATROVENT Inhaler] 2 puff IH [id number] inhaler 04/09/20 [Rx] Bisacodyl [Dulcolax] 10 mg PO DAILY PRN tablet 04/27/20 [Rx] Docusate [Colace] 100 mg PO BID ca (more content not included)... Normal [facility] Internal Med Progress Noteon 01-21-2021 Internal Med Progress Note [address] [place] [address] Internal Med Progress Note Signed PRELIMINARY DRAFT REPORT UNTIL ELECTRONICALLY SIGNED PATIENT: Mick Cottrell MR#: [id number] : 1940 AGE/SEX: 80 / M ADMITTED: 01/21/21 0040 OUTSIDE LOCN: LOCATION: [address] [place] [address] ATTENDING: Matt Parisi MD cc: ; Hospitalist Progress Note - Encounter Date of Encounter: 01/21/21 Time of Encounter: 12:25 (estimated) - Subjective Interval History: S still having some pain in R lower quadrant abd. eating and in good spirits O gen: no distress. eldelry male cardiac: s1,s2. regular rhythm. 2/6 systolic murmur resp: mostly clear. minimal crackles at bases. abd: soft. not diffusely tender ext: no major amputations observed. no b/l lower extremity pitting edema *some info autopop into note A/P #ureteral stone with hydronephrosis abd/pelv CT 01/20: R ureteral calculus. obstructive uropathy. pyonephrosis should be considered s/p R stone extraction and ureteral stent placement -further recs per urology -oxy, norco, acetaminophen for pain -tamsulosin #pyelonephritis suspected on CT patient penicillin allergic -cipro 400mg IV bid began 01/21 plan for 5 days #HTN urgency significant HTN initially (initial labs were without MARYLOU) -hydralazine prn -resolved -home meds when rec'd #MARYLOU $likely due to the above -LR running -continue to monitor #gross hematuria -warfarin on hold #aortic valve replacement #afib -warfarin on hold as above #DM2 -SSI #COPD home meds when rec'd #CAD home meds when rec'd ppx: scd's dispo: s/p urology procedure. discharge 1-2 days - Exam Vitals: Temp Pulse Resp BP Pulse Ox 97.8 F 75 18 179/99 97 01/21/21 09:23 01/21/21 09:23 01/21/21 09:23 01/21/21 09:23 01/21/21 09:23 Exam: as above - Assessment and Plan (1) Ureteral stone with hydronephrosis Status: Acute (2) Hypertensive urgency Status: Acute (3) Hematuria Status: Acute (4) MARYLOU (acute kidney injury) Status: Acute (5) Diabetes mellitus Status: Chronic (6) History of aortic valve replacement with bioprosthetic valve Status: Chronic (7) Paroxysmal atrial fibrillation Status: Chronic (8) DVT prophylaxis Status: Acute Hospitalist Results - Labs Labs: All Lab Results (24 Hours) 01/20/21 01/20/21 01/20/21 Range/Units 18:25 18:25 18:25 WBC 8.7 (4.3-11.1) K/mcL RBC 4.39 (4.19-5.50) M/mcL Hgb 13.8 (12.9-16.9) g/dL Hct 41.6 (37.5-50.1) % MCV 94.8 (83.0-100.0) fL MCH 31.4 (28.0-33.3) pg MCHC 33.2 (31.6-35.5) g/dL RDW 15.5 H (11.5-14.5) % Plt Count 183 (140-400) K/mcL MPV 11.1 (9.4-12.4) fL Immature Gran % 0.3 (0-4) % Seg Neutrophils % 76.1 % Lymphocytes % 12.4 % Monocytes % 8.6 % Eosinophils % 2.3 % Basophils % 0.3 % Neutrophils # 6.6 (1.6-8.9) K/mcL Lymphocytes # 1.1 (0.6-4.6) K/mcL Monocytes # 0.8 (0.0-1.3) K/mcL Eosinophils # 0.2 (0.0-0.6) K/mcL Basophils # 0.0 (0.0-0.2) K/mcL PT 28.2 H (9.4-12.1) Seconds INR 2.5 APTT 40.2 H (26.0-36.0) Seconds Sodium 140 (136-145) mEq/L Potassium 3.6 (3.5-5.1) mEq/L Chloride 107 (98-107) mEq/L Carbon Dioxide 26 (23-29) mEq/L BUN 13 (8-23) mg/dL Creatinine 1.08 (0.70-1.30) mg/dL Est GFR ( Amer) > 60 (> 60) Est GFR (Non-Af Amer) > 60 (> 60) BUN/Creatinine Ratio 12 (6-26) Glucose 106 H (70-105) mg/dL POC Glucose (70-99) mg/dL Calculated Osmolality 291 (280-300) Calcium 9.2 (8.6-10.3) mg/dL Total Bilirubin 0.4 (0.3-1.0) mg/dL Direct Bilirubin 0.1 (0.0-0.2) mg/dL Indirect Bilirubin 0.3 (0.0-1.0) mg/dL AST 13 (13-39) Units/L ALT 17 (7-52) Units/L Alkaline Phosphatase 104 (34-104) Units/L Serum Total Protein 6.4 (6.4-8.9) g/dL Albumin 3.9 (3.5-5.7) g/dL Globulin 2.5 (2.4-3.5) g/dL Albumin/Globulin Ratio 1.6 (1.1-2.2) Amylase 30 (29-103) Units/L Lipase 32 (11-82) Units/L Ur Specimen Adequacy Urine Color (Yellow) Urine Clarity (Clear) Urine pH (5.0-8.0) pH Units Ur Specific Napoleon (1.010-1.025) Urine Protein (Neg-Trace) mg/dL Urine Glucose (UA) (Normal) mg/dL Urine Ketones (Negative) mg/dL Urine Blood (Negative) Urine Nitrite (Negative) Urine Bilirubin (Negative) Urine Urobilinogen (Normal) mg/dL Ur Leukocyte Esterase (Negative) Urine Microscopic RBC Ur Culture Indicated? (NO) 01/20/21 01/21/21 01/21/21 Range/Units 19:24 02:01 02:01 WBC 10.8 (4.3-11.1) K/mcL RBC 4.64 (4.19-5.50) M/mcL Hgb 14.6 (12.9-16.9) g/dL Hct 44.4 (37.5-50.1) % MCV 95.7 (83.0-100.0) fL MCH 31.5 (28.0-33.3) pg MCHC 32.9 (31.6-35.5) g/dL RDW 15.3 H (11.5-14.5) % Plt Count 175 (140-400) K/mcL MPV 10.8 (9.4-12.4) fL Immatu (more content not included)... Normal [facility] POC Glucometer Teston 2020 Glucose [Mass/Vol] 216 mg/dL High 70-99 [facility] Comment on above: Result Comment: FIDELINA jamison Performed By: #### B MP #### [facility] [address] [place] [address] Glucose [Mass/Vol] 258 mg/dL High 70-[address] [place] [address] Comment on above: Performed By: #### P OCGLUMETER ####[facility] [address] [place] [address] Glucose [Mass/Vol] 202 mg/dL High 70-[address] [place] [address] Comment on above: Performed By: #### P OCGLUMETER #### [facility] [address] [place] [address] Glucose [Mass/Vol] 158 mg/dL High 70-[address] [place] [address] Comment on above: Performed By: #### P OCGLUMETER ####[facility] [address] [place] [address] Glucose [Mass/Vol] 157 mg/dL High 70-99 [facility] Comment on above: Result Comment: RN N otified Performed By: #### L IP, HEPATIC, BMP, ROSSY #### [facility] [address] [place] [address] [id number] Prothrombin Time INRon 01-21 INR Coag (PPP) [Relative time] 2.4 {INR} Normal [facility] Comment on above: Result Comment: For patients on oral anticoagulants, the therapeutic INR reference range is 2.0 to 3.5 Performed By: #### P TINR ####[facility] [address] [place] [address] PT Coag (PPP) [Time] 26.4 s High 9.4-12.1 [facility] Comment on above: Performed By: #### P TINR ####[facility] [address] [place] [address] RETROon 01-21-[address] [address] XRay Report Signed PRELIMINARY DRAFT REPORT UNTIL ELECTRONICALLY SIGNED PATIENT: Mick Cottrell MR#: [id number] : 1940 AGE/SEX: 80 / M ADMITTED: 01/22/21 0725 OUTSIDE LOCN: LOCATION: [address] [place] [address] ATTENDING: Matt Parisi MD ORDER PHYSICIAN: Ramesh Stringer BIRAD: DATE OF SERVICE: 01/21/21 FOLLOW UP: ACCESSION NUMBERS(S): [id number] PROCEDURE(S): XR retrograde pyelogram REASON FOR EXAM: RT RETRO W/LASER STONE EXT/STENT FOR RIGHT URETERAL STONE cc: Grace Gtz; Matt Parisi; Ramesh Stringer; EXAMINATION: SPOT FLUOROSCOPIC IMAGES 01/21/2021 8:49 am TECHNIQUE: Fluoroscopy was provided by the radiology department for procedure. Radiologist was not present during examination. FLUOROSCOPY DOSE AND TYPE OR TIME AND EXPOSURES: 3 images, 32 seconds COMPARISON: 01/20/2021 HISTORY: ORDERING SYSTEM PROVIDED HISTORY: RT RETRO W/LASER STONE EXT/STENT FOR RIGHT URETERAL STONE Intraprocedural imaging. FINDINGS: 3 spot images of the abdomen were obtained. There is opacification of the right ureter. There are at least 2 discrete filling defects noted in the distal right ureter. There has been placement of a right ureteral stent. XR/XR retrograde pyelogram IMPRESSION: Intraprocedural fluoroscopic spot images as above. See separate procedure report for more information. D/ / 01/21/2021 09:30:19 Rekha Angulo MD / vonda Interpreting Provider: Rekha Angulo MD Normal [facility] Urology - Consult Noteon Urology - Consult Note [address] [address] Urology - Consult Note Signed PRELIMINARY DRAFT REPORT UNTIL ELECTRONICALLY SIGNED PATIENT: Mick Cottrell MR#: [id number] : 1940 AGE/SEX: 80 / M ADMITTED: 01/21/21 0040 OUTSIDE LOCN: LOCATION: [address] [place] [address] ATTENDING: Haroon Stovall MD cc: ; Date of Encounter: 01/21/21 Time of Encounter: 07:23 - Assessment and Plan (1) Renal insufficiency Status: Acute Assessment and plan: Likely obstructive. Should improve after stone extraction and stent placement (2) Ureteral stone with hydronephrosis Status: Acute Assessment and plan: Plan to proceed with a right ureteroscopic stone extraction with holmium laser lithotripsy and stent placement. Patient understands the indication for the procedure. We discussed the risks which includes infection, injury to his urinary tract, scarring, stricture, perforation. He understands the indication for the stent and potential for stent discomfort Urology CN:HPI Consult date: 01/21/21 Reason for consult Urology: Hydronephrosis History of present illness: 80 yo WM with severe flank pain and GH for 2 weeks. 6 mm mid/distal ureteral stone. Patient has had nausea. No fever. He does have a history of kidney stones with spontaneous passage a few years ago. Past Med Surg Social Fam HX - Past Medical History Medical history: cancer, COPD, CVA, diabetes, GERD, hyperlipidemia, hypertension Additional medical history: right lung drainage - pt reports 1800cc of drainage from "center sac" of lung Psychiatric history: depression - Past Surgical History Surgical History: cataract, herniorrhaphy, sinus surgery, tonsillectomy Additional surgical history: lung drained, tonsillectomy, nasal surgery, loop recorder removal. heart valve replacement - cow valve - Social History Smoking Status: Former smoker Smokeless Tobacco Status: No Alcohol use: none Drug use: none - Family History Father Living Status: Hx Family Cardiac Disorders: Yes (HTN) Hx Family Cancer: Yes (bladder) Hx Family Endocrine Disorder: Yes (DM) Mother Living Status: Hx Family Cardiac Disorders: Yes (HTN, CAD) Hx Family Cancer: Yes (breast, colon) Hx Family Endocrine Disorder: Yes (DM) Medications and Allergies Aspirin Enteric Coated [Aspirin EC] 81 mg PO DAILY 09/30/15 [History] Mirtazapine [Remeron] 15 mg PO HS 03/05/20 [History] Albuterol Sulfate [Albuterol HFA Inhaler for Take Home Only] 2 puff IH Q4H PRN 03/06/20 [History] Atorvastatin [Lipitor] 40 mg PO HS 03/06/20 [History] Finasteride [Proscar] 5 mg PO DAILY 03/06/20 [History] Furosemide [Lasix] 20 mg PO QAM 03/06/20 [History] Montelukast [Singulair] 10 mg PO QPM 03/06/20 [History] Topiramate [Topamax] 50 mg PO BID 03/06/20 [History] Vit C/E/Zn/Coppr/Lutein/Z eaxan [Preservision Areds 2 Softgel] 1 cap PO BID 03/06/20 [History] Losartan [Cozaar] 25 mg PO DAILY #30 tablet 03/19/20 [Rx] Budesonide/Formoterol 160/4.5 [Symbicort 160/4.5] 2 puff IH BIDR inh 04/09/20 [Rx] Cholecalciferol (D-3) [Vitamin D] 1,000 unit PO DAILY tablet 04/09/20 [Rx] Ipratropium [ATROVENT Inhaler] 2 puff IH [id number] inhaler 04/09/20 [Rx] Bisacodyl [Dulcolax] 10 mg PO DAILY PRN tablet 04/27/20 [Rx] Docusate [Colace] 100 mg PO BID capsule 04/27/20 [Rx] Magnesium Oxide [Mag-Ox] 400 mg PO BID tablet 04/27/20 [Rx] Acetaminophen [Tylenol] 650 mg PO Q4H PRN 05/17/20 [History] Chloraseptic [place] [Chloraseptic] 5 spray PO TID 05/17/20 [History] Enoxaparin [Lovenox] 40 mg SQ HS 05/17/20 [History] Fluticasone Propion/Salmeterol [Wixela 500-50 Inhub] 1 puff IH BID 05/17/20 [History] Glucagon,Human Recombinant [Glucagon Emergency Kit] 1 mg IM PRN PRN 05/17/20 [History] Magnesium Hydroxide [Milk of Magnesia] 1,200 mg PO DAILY PRN 05/17/20 [History] Metformin HCl [Glucophage] 1,000 mg PO BID 05/17/20 [History] Omeprazole [PriLOSEC] 40 mg PO QAM 05/17/20 [History] polyethylene glycoL 3350 [MiraLAX] 17 gm PO DAILY 05/17/20 [History] Metoprolol [Lopressor] 50 mg PO BID 30 Days #60 tablet 05/24/20 [Rx] Warfarin Sodium 4 mg PO DAILY 30 Days #30 tablet 05/24/20 [Rx] HYDROcodone/Acet 5/325 mg [Ferriday 5-325 mg] 1 tab PO Q6H PRN 3 Days #12 tab 01/11/21 [Rx] Allergies Allergy/AdvReac Type Severity Reaction Status Date / Time Penicillins Allergy Severe Swelling Verified 05/17/20 17:22 of Lip/Tongue/Throat Review of Systems - Constitutional no chills, no fever(s) - EENT Nose, mouth and throat: no dizziness - Cardiovascular no chest pain - Gastrointestinal abdominal pain, nausea - Genitourinary flank pain, hematuria - Musculoskeletal back pain - Integumentary no erythema - Neurological no confusion - Hematologic/Lymphatic no easy bleeding - Allergic/Immunologic no throat swelling Exa (more content not included)... Normal [facility] ABDPELWOon 01-20-[address] [place] [address] Cat Scan Report Signed PRELIMINARY DRAFT REPORT UNTIL ELECTRONICALLY SIGNED PATIENT: Mick Cottrell MR#: [id number] : 1940 AGE/SEX: 80 / M ADMITTED: 01/20/21 OUTSIDE LOCN: LOCATION: [facility] ATTENDING: ORDER PHYSICIAN: Cleveland Lewis BIRAD: DATE OF SERVICE: 01/20/21 FOLLOW UP: ACCESSION NUMBERS(S): [id number] PROCEDURE(S): CT abd pelvis wo no iv no oral REASON FOR EXAM: Hematuria with right lower quadrant abdominal pain cc: Grace Gtz; Cleveland Lewis; EXAMINATION: CT OF THE ABDOMEN AND PELVIS WITHOUT CONTRAST 01/20/2021 9:18 pm TECHNIQUE: CT of the abdomen and pelvis was performed without the administration of intravenous contrast. Multiplanar reformatted images are provided for review. Dose modulation, iterative reconstruction, and/or weight based adjustment of the mA/kV was utilized to reduce the radiation dose to as low as reasonably achievable. COMPARISON: 01/11/2021 HISTORY: ORDERING SYSTEM PROVIDED HISTORY: Hematuria with right lower quadrant abdominal pain FINDINGS: Lower Chest: There are few bands of bibasilar atelectasis. There is a tiny hiatal hernia. Heart size is within limits. Organs: There is persistent high-grade right obstructive uropathy secondary to a 6 mm calculus in the distal right ureter at the level of the iliac vessel crossing (axial image 154). This calculus has moved distally from the level of the iliac crest on 01/11/2021. Hydronephrosis has increased in severity from the prior study. The right kidney is enlarged and there is prominent perinephric and periureteral fat stranding. There are few bilateral nonobstructing renal calculi unchanged from the recent study. The gallbladder is surgically absent. Liver, spleen, pancreas and adrenal glands grossly with the limitations of a noncontrast study. GI/Bowel: Left colon diverticulosis, moderate to severe in the sigmoid region. No evidence of diverticulitis. Pelvis: Urinary bladder is unremarkable. Small fat containing left inguinal hernia. Peritoneum/Retroperit oneum: Retroperitoneal fat stranding related to the acute right obstructive uropathy. There is no free air or free fluid. No adenopathy. 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 Bones/Soft Tissues: No acute bone finding. CT/CT abd pelvis wo no iv no oral IMPRESSION: High-grade acute right obstructive uropathy increasing in severity from 01/11/2021. The obstructing 6 mm right ureteral calculus has moved from the level of the iliac crest on 01/11/2021 to the level of the iliac vessel crossing. There is significant right perinephric fat stranding and the right kidney is enlarged. Pyonephrosis should be considered. Few bilateral nonobstructing renal calculi unchanged from the study 9 days ago. D/ / Kit Mcrae MD / Kit Mcrae MD Interpreting Provider: Kit Mcrae MD Normal [facility] Activated Partial Thrombo Ti meon 01-20-2021 Activated Partial Thrombo Time 40.2 Seconds High 26.0-36.0 [facility] Comment on above: Performed By: #### C UU #### [facility] [address] [place] [address] Amylaseon 01-20-2021 Amylase 30 Units/L Normal 29-103 [facility] Comment on above: Performed By: #### L IP, HEPATIC, BMP, ROSSY #### [facility] [address] [place] [address] Basic Metabolic Panelon - Calcium [Mass/Vol] 9.2 mg/dL Normal 8.6-10.3 [facility] Comment on above: Performed By: #### L IP, HEPATIC, BMP, ROSSY #### [facility] [address] [place] [address] Chloride [Moles/Vol] 107 mmol/L Normal 98-107 [facility] Comment on above: Performed By: #### L IP, HEPATIC, BMP, ROSSY #### [facility] [address] [place] [address] CO2 [Moles/Vol] 26 mmol/L Normal 23-29 [facility] Comment on above: Performed By: #### L IP, HEPATIC, BMP, ROSSY #### [facility] [address] [place] [address] Creatinine [Mass/Vol] 1.08 mg/dL Normal 0.70-1.30 [facility] Comment on above: Performed By: #### L IP, HEPATIC, BMP, ROSSY #### [facility] [address] [place] [address] eGFR For Americans > 60 Normal > 60 [facility] Comment on above: Result Comment: eGFR = Estimated Glomerular Filtration Rate reported as mL/min/1.73 square meters Chronic Kidney Disease: < 60; Kidney failure: < 15 Performed By: #### L IP, HEPATIC, BMP, ROSSY #### [facility] [address] [place] [address] eGFR For Non- Americans > 60 Normal > 60 [facility] Comment on above: Performed By: #### L IP, HEPATIC, BMP, ROSSY #### [facility] [address] [place] [address] Glucose [Mass/Vol] 106 mg/dL High 70-105 [facility] Comment on above: Performed By: #### L IP, HEPATIC, BMP, ROSSY #### [facility] [address] [place] [address] Osmolality,Calculated 291 Normal 280-300 [facility] Comment on above: Performed By: #### L IP, HEPATIC, BMP, ROSSY #### [facility] [address] [place] [address] Potassium [Moles/Vol] 3.6 mmol/L Normal 3.5-5.1 [facility] Comment on above: Performed By: #### L IP, HEPATIC, BMP, ROSSY #### [facility] [address] [place] [address] Sodium [Moles/Vol] 140 mmol/L Normal 136-145 [facility] Comment on above: Performed By: #### L IP, HEPATIC, BMP, ROSSY #### [facility] [address] [place] [address] Urea nitrogen [Mass/Vol] 13 mg/dL Normal 8- [facility] Comment on above: Performed By: #### L IP, HEPATIC, BMP, ROSSY #### [facility] [address] [place] [address] Urea nitrogen/Creatinine [Mass ratio] 12 mg/mg Normal - [facility] Comment on above: Performed By: #### L IP, HEPATIC, BMP, ROSSY #### [facility] [address] [place] [address] Complete Blood Count with Di ffon 01-20-2021 Basophils (Bld) [#/Vol] 0.0 10*3/uL Normal 0.0-0.2 [facility] Comment on above: Performed By: #### C BC ####[facility] [address] [place] [address] Basophils/100 WBC (Bld) 0.3 % Normal [facility] Comment on above: Performed By: #### C BC ####[facility] [address] [place] [address] Eosinophils (Bld) [#/Vol] 0.2 10*3/uL Normal 0.0-0.6 [facility] Comment on above: Performed By: #### C BC ####[facility] [address] [place] [address] Eosinophils/100 WBC (Bld) 2.3 % Normal [facility] Comment on above: Performed By: #### C BC ####[address] [address] Erythrocyte distribution width (RBC) [Ratio] 15.5 % High 11.5-14.5 [facility] Comment on above: Performed By: #### C BC ####[address] [address] Hematocrit (Bld) [Volume fraction] 41.6 % Normal 37.5-50.1 [facility] Comment on above: Performed By: #### C BC ####[address] [address] Hemoglobin (Bld) [Mass/Vol] 13.8 g/dL Normal 12.9-16.9 [facility] Comment on above: Performed By: #### C BC ####[address] [address] Immature granulocytes/100 WBC (Bld) 0.3 % Normal 0-4 [facility] Comment on above: Performed By: #### C BC ####[address] [address] Lymphocytes (Bld) [#/Vol] 1.1 10*3/uL Normal 0.6-4.6 [facility] Comment on above: Performed By: #### C BC ####[address] [address] Lymphocytes/100 WBC (Bld) 12.4 % Normal [facility] Comment on above: Performed By: #### C BC ####[address] [address] MCH (RBC) [Entitic mass] 31.4 pg Normal 28.0-33.3 [facility] Comment on above: Performed By: #### C BC ####[address] [address] MCV (RBC) [Entitic vol] 94.8 fL Normal 83.0-100.0 [facility] Comment on above: Performed By: #### C BC ####[address] [address] Mean Corpuscular HGB Conc 33.2 g/dL Normal 31.6-35.5 [facility] Comment on above: Performed By: #### C BC ####[address] [address] Monocytes (Bld) [#/Vol] 0.8 10*3/uL Normal 0.0-1.3 [facility] Comment on above: Performed By: #### C BC ####[address] [address] Monocytes/100 WBC (Bld) 8.6 % Normal [facility] Comment on above: Performed By: #### C BC ####[address] [address] Neutrophils (Bld) [#/Vol] 6.6 10*3/uL Normal 1.6-8.9 [facility] Comment on above: Performed By: #### C BC ####[address] [address] Platelet mean volume (Bld) [Entitic vol] 11.1 fL Normal 9.4-12.4 [facility] Comment on above: Performed By: #### C BC ####[address] [address] Platelets (Bld) [#/Vol] 183 10*3/uL Normal 140-400 [facility] Comment on above: Performed By: #### C BC ####[address] [address] RBC (Bld) [#/Vol] 4.39 10*6/uL Normal 4.19-5.50 [facility] Comment on above: Performed By: #### C BC ####[facility] [address] [place] [address] Segmented neutrophils/100 WBC (Bld) 76.1 % Normal [facility] Comment on above: Performed By: #### C BC ####[facility] [address] [place] [address] WBC (Bld) [#/Vol] 8.7 10*3/uL Normal 4.3-11.1 [facility] Comment on above: Performed By: #### C BC ####[address] [id number] Emergency Documentationon Emergency Documentation [address] [address] Emergency Department Note Signed PRELIMINARY DRAFT REPORT UNTIL ELECTRONICALLY SIGNED PATIENT: Mick Cottrell MR#: [id number] : 1940 AGE/SEX: 80 / M ADMITTED: 01/21/21 0040 OUTSIDE LOCN: LOCATION: [address] [place], [place] [address] ATTENDING: Haroon Stovall MD cc: Neno Domínguez; Mario Szymanski; Reji Anderson; Grace Gtz; Haroon Patel; Belgica Elizondo; Wilmar Rosales; Darlene Ng; Deion Burks; Suhail Zamudio; Ramesh Stringer; Disposition Clinical Impression: Obstructive uropathy, Ureteral stone with hydronephrosis Disposition: Admitted As Inpatient Condition: Fair Time of Disposition: 00:50 General Adult HPI - General Chief complaint: ED Abdominal Pain Stated complaint: Rt side kidney stone passing Time Seen by Provider: 01/20/21 19:16 Source: patient Limitations: no limitations Nursing Notes Reviewed: Yes Vital Signs Reviewed: Yes - History of Present Illness HPI Narrative: 80-year-old male presents to ER with right lower quadrant abdominal pain with passing blood clots in his urine. Patient notes that he was recently diagnosed with urinary stones, and had passed stone with new-onset of 8/10 right lower abdominal pressure and hematuria with passing clots. He denies any other complaints including fevers, cough, shortness breath, chest pain, nausea, vomiting or diarrhea. He denies any dysuria. He denies that he is on blood thinners with history of prosthetic heart valve. She notes that he has follow-up with urology this coming week with new onset of pain around noon with passing blood in the urine. Pain Scale: 8 - Related Data Home Medications Medication Instructions Recorded Confirmed Aspirin Enteric Coated [Aspirin EC] 81 mg PO DAILY 09/30/15 05/17/20 Mirtazapine [Remeron] 15 mg PO HS 03/05/20 05/17/20 Albuterol Sulfate [Albuterol HFA 2 puff IH Q4H PRN 03/06/20 05/17/20 Inhaler for Take Home Only] Atorvastatin [Lipitor] 40 mg PO HS 03/06/20 05/17/20 Finasteride [Proscar] 5 mg PO DAILY 03/06/20 05/17/20 Furosemide [Lasix] 20 mg PO QAM 03/06/20 05/17/20 Montelukast [Singulair] 10 mg PO QPM 03/06/20 05/17/20 Topiramate [Topamax] 50 mg PO BID 03/06/20 05/17/20 Vit C/E/Zn/Coppr/Lutein/Z eaxan 1 cap PO BID 03/06/20 05/17/20 [Preservision Areds 2 Softgel] Acetaminophen [Tylenol] 650 mg PO Q4H PRN 05/17/20 05/17/20 Chloraseptic [place] [Chloraseptic] 5 spray PO TID 05/17/20 05/17/20 Enoxaparin [Lovenox] 40 mg SQ HS 05/17/20 05/17/20 Fluticasone Propion/Salmeterol 1 puff IH BID 05/17/20 05/17/20 [Wixela 500-50 Inhub] Glucagon,Human Recombinant 1 mg IM PRN PRN 05/17/20 05/17/20 [Glucagon Emergency Kit] Magnesium Hydroxide [Milk of 1,200 mg PO DAILY PRN 05/17/20 05/17/20 Magnesia] Metformin HCl [Glucophage] 1,000 mg PO BID 05/17/20 05/17/20 Omeprazole [PriLOSEC] 40 mg PO QAM 05/17/20 05/17/20 polyethylene glycoL 3350 [MiraLAX] 17 gm PO DAILY 05/17/20 05/17/20 Previous Rx's Medication Instructions Recorded Losartan [Cozaar] 25 mg PO DAILY #30 tablet 03/19/20 Budesonide/Formoterol 160/4.5 2 puff IH BIDR inh 04/09/20 [Symbicort 160/4.5] Cholecalciferol (D-3) [Vitamin D] 1,000 unit PO DAILY tablet 04/09/20 Ipratropium [ATROVENT Inhaler] 2 puff IH [id number] inhaler 04/09/20 Bisacodyl [Dulcolax] 10 mg PO DAILY PRN tablet 04/27/20 Docusate [Colace] 100 mg PO BID capsule 04/27/20 Magnesium Oxide [Mag-Ox] 400 mg PO BID tablet 04/27/20 Metoprolol [Lopressor] 50 mg PO BID 30 Days #60 tablet 05/24/20 Warfarin Sodium 4 mg PO DAILY 30 Days #30 tablet 05/24/20 HYDROcodone/Acet 5/325 mg [Ferriday 1 tab PO Q6H PRN 3 Days #12 tab 01/11/21 5-325 mg] Allergies Allergy/AdvReac Type Severity Reaction Status Date / Time Penicillins Allergy Severe Swelling Verified 05/17/20 17:22 of Lip/Tongue/Throat Review of Systems All systems ED: reviewed and negative except as stated. Review of Systems: As Per HPI Constitutional: Denies: fever, chills, weakness Eyes: Denies: vision change ENT ED: Denies: throat pain, congestion Cardiovascular: Denies: chest pain, palpitations Respiratory: Denies: cough, dyspnea, wheezes Gastrointestinal: Reports: abdominal pain. Denies: nausea, vomiting Genitourinary: Reports: hematuria. Denies: urgency, dysuria, frequency Musculoskeletal: Denies: back pain Neurological: Denies: headache Past Medical History - Past Medical History Source: patient, old records reviewed Medical history: Reports: cancer, COPD, CVA, diabetes, GERD, hyperlipidemia, hypertension Surgical history: Reports: cataract, herniorrhaphy, sinus surgery, tonsillectomy Psychiatric history: Reports: depression - Social History Smoking Status: Former smoker Smokeless Tobacco (more content not included)... Normal [facility] Hepatic Panelon 01-20-2021 Alanine Aminotransferase 17 Units/L Normal 7-52 [facility] Comment on above: Performed By: #### L IP, HEPATIC, BMP, ROSSY #### [facility] [address] [place] [address] Albumin [Mass/Vol] 3.9 g/dL Normal 3.5-5.7 [facility] Comment on above: Performed By: #### L IP, HEPATIC, BMP, ROSSY #### [facility] [address] [place] [address] Albumin/Globulin [Mass ratio] 1.6 {ratio} Normal 1.1-2.2 [facility] Comment on above: Performed By: #### L IP, HEPATIC, BMP, ROSSY #### [facility] [address] [place] [address] Alkaline Phosphatase 104 Units/L Normal 34-104 [facility] Comment on above: Performed By: #### L IP, HEPATIC, BMP, ROSSY #### [facility] [address] [place] [address] Aspartate Amino Transferase 13 Units/L Normal 13-39 [facility] Comment on above: Performed By: #### L IP, HEPATIC, BMP, ROSSY #### [facility] [address] [place] [address] Bilirubin [Mass/Vol] 0.4 mg/dL Normal 0.3-1.0 [facility] Comment on above: Performed By: #### L IP, HEPATIC, BMP, ROSYS #### [facility] [address] [place] [address] Bilirubin,Indirect 0.3 mg/dL Normal 0.0-1.0 [facility] Comment on above: Performed By: #### L IP, HEPATIC, BMP, ROSSY #### [facility] [address] [place] [address] Bilirubin.indirect [Mass/Vol] 0.1 mg/dL Normal 0.0-0.2 [facility] Comment on above: Performed By: #### L IP, HEPATIC, BMP, ROSSY #### [facility] [address] [place] [address] Globulin (S) [Mass/Vol] 2.5 g/dL Normal 2.4-3.5 [facility] Comment on above: Performed By: #### L IP, HEPATIC, BMP, ROSSY #### [facility] [address] [place] [address] Protein [Mass/Vol] 6.4 g/dL Normal 6.4-8.9 [facility] Comment on above: Performed By: #### L IP, HEPATIC, BMP, ROSSY #### [facility] [address] [place] [address] Lipaseon 01-20-2021 Lipase 32 Units/L Normal 11-82 [facility] Comment on above: Performed By: #### L IP, HEPATIC, BMP, ROSSY #### [facility] [address] [place] [address] Prothrombin Time INRon 01-20 INR Coag (PPP) [Relative time] 2.5 {INR} Normal [facility] Comment on above: Result Comment: For patients on oral anticoagulants, the therapeutic INR reference range is 2.0 to 3.5 Performed By: #### C UU #### [facility] [address] [place] [address] PT Coag (PPP) [Time] 28.2 s High 9.4-12.1 [facility] Comment on above: Performed By: #### C UU #### [facility] [address] [place] [address] Urinalysis Reflex Cult Micro on 01-20-2021 RBC,Urine TNP Normal 0-3 [facility] Comment on above: Order Comment: Sourc e of specimen: Not Supplied Result Comment: No m icroscopic performed due to urine being grossly bloody. Performed By: #### U AREF ####[facility] [address] [place] [address] Bilirubin,Urine Negative Normal Negative [facility] Comment on above: Order Comment: Sourc e of specimen: Not Supplied Performed By: #### U AREF ####[address] [address] Blood,Urine Large Abnormal Negative [facility] Comment on above: Order Comment: Sourc e of specimen: Not Supplied Performed By: #### U AREF ####[address] [address] Clarity (U) Ex.Turbid Abnormal Clear [facility] Comment on above: Order Comment: Sourc e of specimen: Not Supplied Performed By: #### U AREF ####[address] [address] Color (U) Light-Red Abnormal Yellow [facility] Comment on above: Order Comment: Sourc e of specimen: Not Supplied Performed By: #### U AREF ####[address] [address] Culture Indicated,Urine YES Abnormal NO [facility] Comment on above: Order Comment: Sourc e of specimen: Not Supplied Performed By: #### U AREF ####[address] [address] Glucose Ql (U) Normal Normal Normal [facility] Comment on above: Order Comment: Sourc e of specimen: Not Supplied Performed By: #### U AREF ####[address] [address] Ketones Ql (U) Negative Normal Negative [facility] Comment on above: Order Comment: Sourc e of specimen: Not Supplied Performed By: #### U AREF ####[address] [address] Leukocyte esterase Test strip Ql (U) Small Abnormal Negative [facility] Comment on above: Order Comment: Sourc e of specimen: Not Supplied Performed By: #### U AREF ####[address] [address] Nitrite,Urine Negative Normal Negative [facility] Comment on above: Order Comment: Sourc e of specimen: Not Supplied Performed By: #### U AREF ####[address] [address] PH,Urine 7.0 pH Units Normal 5.0-8.0 [facility] Comment on above: Order Comment: Sourc e of specimen: Not Supplied Performed By: #### U AREF ####[address] [address] Protein (U) [Mass/Vol] 100 mg/dL Abnormal Neg-Trace [facility] Comment on above: Order Comment: Sourc e of specimen: Not Supplied Performed By: #### U AREF ####[address] [address] Specific [place],Urine 1.011 Normal 1.010-1.025 [facility] Comment on above: Order Comment: Sourc e of specimen: Not Supplied Performed By: #### U AREF ####[address] [address] Urine Specimen Comments See below Abnormal [facility] Comment on above: Order Comment: Sourc e of specimen: Not Supplied Result Comment: Chem strip results were obtained after centrifugation. Performed By: #### U AREF ####[address] [address] Urobilinogen,Urine Normal Normal Normal [facility] Comment on above: Order Comment: Sourc e of specimen: Not Supplied Performed By: #### U AREF ####[facility] [id number] [place] [id number] [facility] [address] [address] [facility] Signed PRELIMINARY DRAFT REPORT UNTIL ELECTRONICALLY SIGNED PATIENT: Mick Cottrell MR#: [id number] : 1940 AGE/SEX: 80 / M ADMITTED: 01/18/21 OUTSIDE LOCN: LOCATION: [facility] ATTENDING: Grace Gtz MD cc: ; Anti-Coagulation History Referring Physician: Grace Gtz Supervising Clinician: Jose Jordan Medical history: cancer, COPD, CVA, diabetes, GERD, hyperlipidemia, hypertension Additional medical history PMH: right lung drainage - pt reports 1800cc of drainage from "center sac" of lung Male Surgical History: cataract, herniorrhaphy, sinus surgery, tonsillectomy Female Surgical History: heart valve replacement (Aortic valve replacement) Additional surgical history PMH: lung drained, tonsillectomy, nasal surgery, loop recorder removal. heart valve replacement - cow valve Psychiatric history: depression Smoking Status: Former smoker Smokeless Tobacco Status: No Alcohol use PMH: none Drug use: none Occupational status: retired Finger Stick INR: 2 INR Range: 2-3 (CVA) Specimen Processed (Date): 01/18/21 Specimen Processed (Time): 09:29 Patient Instructions: Keep taking the same amount of Coumadin as you have been taking. Have a great week and I'll see you soon. IT IS EXTREMELY IMPORTANT THAT YOU NOTIFY OUR OFFICE OF ALL MEDICATION CHANGES ON THE DAY THAT THEY OCCUR. IF THE CHANGE SHOULD OCCUR AFTER HOURS OR ON THE WEEKEND, SELECT OPTION #2 AND YOUR CALL WILL BE TRANSFERRED TO THE INPATIENT PHARMACIST FOR ASSISTANCE. Also make us aware of any illnesses that give you diarrhea or vomiting. Please do not arrive more than 10 minutes prior to your scheduled appointment. Cancellation notice must be provided at least 24 hours in advance. Thank you!! If you are experiencing a bleeding emergency and the voicemail is not picking up, please contact our toll free number at: . Piyush Sales PharmNgozi. 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) Hypokalemia (Acute) COPD (chronic obstructive pulmonary disease) (Chronic) DVT prophylaxis (Acute) CVA (cerebral vascular accident) (Chronic) COVID-19 (Acute) COPD exacerbation (Acute) Acute respiratory failure with hypoxia (Acute) HTN (hypertension) (Chronic) BPH (benign prostatic hyperplasia) (Chronic) Dehydration (Acute) Sepsis (Acute) Acute metabolic encephalopathy (Acute) Atrial fibrillation with RVR (Acute) Atrial fibrillation (Chronic) Systolic heart failure (Chronic) GERD (gastroesophageal reflux disease) (Chronic) Hemoptysis (Acute) Multifocal pneumonia (Acute) Pneumonia due to COVID-19 virus (Acute) DVT prophylaxis (Acute) Heart failure with preserved ejection fraction (Chronic) CVA (cerebral vascular accident) (Chronic) Secondary bacterial pneumonia (Acute) Paroxysmal atrial fibrillation (Chronic) Physical deconditioning (Acute) Adjustment disorder with mixed anxiety and depressed mood (Acute) Constipation (Acute) Shortness of breath (Acute) Pulmonary embolism (Acute) Palpitations (Acute) CAD (coronary artery disease) (Acute) Hypomagnesemia (Acute) Elevated troponin (Acute) Loculated pleural effusion (Chronic) Calculus of kidney (Acute) Pharmacist Visit Note: Mick Cottrell was questioned extensively about any missed dosages, any exercise or lifestyle changes, new medication regimens, any changes in diet or increased/decreased vitamin K foods, any bleeding issues, any illnesses including any nausea, vomiting or diarrhea as well as any upcoming surgeries or procedures. Patient denies any further changes. Total time spent: 15 minutes Piyush Sales PharmD. - Dosing Schedule Changes made to dosing schedule?: No Warfarin Strength: 4mg Daily Dose (Sun): 4 # of Tablets (Sun): 1 Daily Dose (Mon): 4 # of Tablets (Mon): 1 Daily Dose (Tue): 4 # of Tablets (Tue): 1 Daily Dose (Wed): 4 # of Tablets (Wed): 1 Daily Dose (Kenna): 4 # of Tablets (Kenna): 1 Daily Dose (Fri): 2 # of Tablets (Fri): 0.5 Daily Dose (Sat): 4 # of Tablets (Sat): 1 Total Doses (mg): 26 Follow up visit requested: 5 weeks Documented By: Piyush Sales Signed By: 01/18/21932 DD/ 8 Initialized By: [id number] [facility] POC PT and INR (office)on 01-18-2021 POC INR Result (office) 2.0 [facility] Comment on above: Result Comment: For patients on oral anticoagulants, the therapeutic INR reference range is 2.0 to 3.5 Performed By: #### L IP, HEPATIC, BMP, ROSSY #### [facility] [address] [place] [address] POC PT Result (office) 24.4 seconds High 9.4-12.1 [facility] Comment on above: Performed By: #### L IP, HEPATIC, BMP, ROSSY #### [facility] [address], [place] [id number] Prothrombin Time INRon 06-18 INR Coag (Bld) [Relative time] 15.2 s High 11.5-14.8 [facility] Comment on above: Order Comment: Speci men Type: Unknown Relevant Clinical Information: Z79.01 Ordering Facility: [facility] Laboratory Address: [address] [place] [address] Result Comment: *Ple ase note new reference ranges* Performed By: #### P TINR #### [facility] Laboratory INR Coag (PPP) [Relative time] 1.2 {INR} High 0.8-1.1 [facility] Comment on above: Order Comment: Speci men Type: Unknown Relevant Clinical Information: Z79.01 Ordering Facility: [facility] Laboratory Address: [address] [place] [address] Result Comment: *Ple ase note new reference ranges* Note: The INR is a therapeutic drug monitoring measurement applicable only to patients who are STABILIZED on anticoagulant therapy. Therapeutic Ranges: Low Intensity Therapy 1.5 - 2.0 Mod. Intensity Therapy 2.0 - 3.0 High Intensity Therapy (1) 2.5 - 3.5 High Intensity Therapy (2) 3.0 - 4.0 Performed By: #### P TINR #### [facility] Discharge Referralon 021 Discharge Referral [facility] [address] [place] [address] Physician Discharge Referral Signed PRELIMINARY DRAFT REPORT UNTIL ELECTRONICALLY SIGNED PATIENT: Mick Cottrell MR#: [id number] : 1940 AGE/SEX: 79 / M ADMITTED: 04/12/20 1837 OUTSIDE LOCN: LOCATION: [address] ATTENDING: Jim Marshall MD cc: ; [facility] Referral Info Provider in Charge after Transfer: PCP Institutional Level of Care: Skilled - Diagnosis (1) Acute respiratory failure with hypoxia Priority: Primary Status: Acute (2) COVID-19 Priority: Secondary Status: Acute (3) Diabetes mellitus Priority: Secondary Status: Chronic (4) COPD (chronic obstructive pulmonary disease) Priority: Secondary Status: Chronic (5) HTN (hypertension) Priority: Secondary Status: Chronic (6) BPH (benign prostatic hyperplasia) Priority: Secondary Status: Chronic (7) Systolic heart failure Priority: Secondary Status: Chronic (8) GERD (gastroesophageal reflux disease) Priority: Secondary Status: Chronic (9) Paroxysmal atrial fibrillation Priority: Secondary Status: Chronic Prognosis: Good Aware of Diagnosis: Patient Aware of Prognosis: Patient - Transfer Medications Home Medications: Aspirin Enteric Coated [Aspirin EC] 81 mg PO DAILY 09/30/15 [History] Mirtazapine [Remeron] 15 mg PO HS 03/05/20 [History] Albuterol Sulfate [Albuterol Sulfate Hfa] 2 puff IH Q4-6H PRN 03/06/20 [History] Atorvastatin [Lipitor] 40 mg PO HS 03/06/20 [History] Finasteride [Proscar] 5 mg PO DAILY 03/06/20 [History] Furosemide [Lasix] 20 mg PO DAILY 03/06/20 [History] Metformin HCl 1,000 mg PO BID 03/06/20 [History] Montelukast [Singulair] 10 mg PO QPM 03/06/20 [History] Omeprazole [PriLOSEC] 40 mg PO DAILY 03/06/20 [History] Topiramate [Topamax] 50 mg PO BID 03/06/20 [History] Vit C/E/Zn/Coppr/Lutein/Z eaxan [Preservision Areds 2 Softgel] 1 cap PO BID 03/06/20 [History] Losartan [Cozaar] 25 mg PO DAILY #30 tablet 03/19/20 [Rx] Budesonide/Formoterol 160/4.5 [Symbicort 160/4.5] 2 puff IH BIDR inh 04/09/20 [Rx] Cholecalciferol (D-3) [Vitamin D] 1,000 unit PO DAILY tablet 04/09/20 [Rx] Ipratropium [ATROVENT Inhaler] 2 puff IH [id number] inhaler 04/09/20 [Rx] Metoprolol [Lopressor] 50 mg PO BID tablet 04/09/20 [Rx] Bisacodyl [Dulcolax] 10 mg PO DAILY PRN tablet 04/27/20 [Rx] Docusate [Colace] 100 mg PO BID capsule 04/27/20 [Rx] Enoxaparin [Lovenox] 40 mg SQ 0600 syringe 04/27/20 [Rx] Magnesium Oxide [Mag-Ox] 400 mg PO BID tablet 04/27/20 [Rx] Allergies/Adverse Reactions: Allergies Allergy/AdvReac Type Severity Reaction Status Date / Time Penicillins Allergy Severe Swelling Verified 03/06/20 16:07 of Lip/Tongue/Throat - Respiratory Orders Oxygen / L per min (2 LPM NC. Titrate to keep oxygen saturations >90%) Smoking Cessation: Smoking cessation has been advised. For more information, call the [place] Tobacco Quit Line at 2-919-IWNM-NOW. - Lab Orders Lab Orders: 2 Step [place] Test per State regulation, CBC, U/A, Jaime 17, CXR yearly - Ancillary Orders May use pressure relief devices daily prn, May go on CLAUDIA w/family/respon republican w/meds at nurse discretion PRN, May consult with Dentist, Category Development Manager, Support Architect PRN - Advance Directives Code Status: Full Code - Mobility Orders Ambulate - Rehabiliation Orders Rehab Potential: Good Rehab Orders: ROM Exercises, Evaluation for Physical Therapy, Evaluation for Occupational Therapy - Treatments Skin tear care topically daily PRN per policy, May check for fecal impaction rectally daily PRN, Fleet enema rectally every other day PRN cleansing purposes - Diet Orders No Concentrated Sweets, Cardiac CERTIFICATION: I certify that the transfer of the above named patient to an Extended Care Facility is necessary for the continuing treatment of the diagnosis listed. The above information is true and accurate reflection of patient's current condition. Confidential - Redisclosure prohibited without a patient's written consent. Documented By: Jenaro Morales ACTIVITY THERAPY SPECIALIST Signed By: 04/27/20 1328 04/27/20 1601 DD/ 1326 Initialized By: [id number] [facility] OT Discharge Noteon 04-27-19 OT Discharge Note Occupational Therapy OT Rehab/Swing Discharge Instruction Start: 04/13/20 11:04 Freq: Status: Active Protocol: Document 04/27/20 13:59 [facility] (Rec: 04/27/20 14:18 [facility] [id number]) Occupational Therapy Discharge General Discharge Date 04/27/20 Referring Provider Jim Marshall Diagnosis deconditio OT Treatment Diagnosis Muscle weakness (generalized) Additional OT Treatment Diagnosis/ Dx: Physical deconditioning s/ Clarification p hospitalization for COVID-19 pneumonia, bacterial pneumonia, acute respiratory failure with hypoxia Reason for Discharge Transfer (other facility/level of care) Goal Review Occupational Therapy LTG's 1. (Not achieved, CGA for all standing tasks, requires cues for energy conservation and redonning supplemental O2 during ADLs) Patient will participate in activities of daily living of various media (dressing, bathing) modified independent to improve ADL participation hospital discharge. 2. (Achieved) Patient will improve functional outcome score on AM-PAC by noted improvement of score (increase or decrease as measured on tool by 2 points) within short -term hospitalization stay. 3. (Achieved) Patient will improve bilateral upper extremity strength by one half grade to improve ADL participation and independence by short-term hospital stay. 4. (Achieved, max cues for breathing techniques and energy conservation) Patient will complete 10-15 minutes with breaks of paced therapeutic exercise to improve functional stamina as needed for daily routine and ADLs by hospital discharge. 5. (Achieved) Patient will complete bed mobility to improve functional mobility as needed for ADL participation modified independent by hospital discharge. Progression Toward Goals Pt has made good progress in occupational therapy goals thus far, however due to continued need for safety cues with supplemental O2 management, balance deficits, poor activity tolerance recommending 24 hour care for safe, adequate completion of basic ADL tasks. Pt has chosen to transfer to ECF for further skilled therapy needs prior to d/c to home. OT Rehab/Swing Discharge Recommendations Education Education Topic Pt transferring to ECF today. Recommendations/Other Occupational Therapy Recommendations Based on pt's progress thus far and current ADL/IADL status, further skilled OT services will be beneficial to maximize functional independence in ADL/IADL tasks prior to return to home environment. Pt requiring CGA for all standing tasks, up to min/mod A for transfers when fatigued, cues for energy conservation, assist for safety of supplemental O2 management. For these reasons, currently requires 24 hour assistance. Home Equipment Recommended Bedside Commode,Grab Bars,Tub Seat/Bench,Hand Held Shower Recommended Mobility Device Wheeled Walker Summary Summation Standardized Testing/Functional Outcomes Evaluation: AM-PAC 6 clicks Utilized/Results daily activity inpatient short form Admission: raw score 17, impaired score 50.11% Discharge: raw score 21, impaired score 32.79% Charge Sheet G-Code Documentation Complete OT Charges/Documentation Finished? Yes Last Visit Is patient being discharged from OT Yes today? Preliminary Draft Until Electronically Signed by Supervising Therapist [facility] OT Noteon 04-27-2020 OT Note Weekly Rehab Team Goal Weekly Rehab Team Goals Start: 04/12/20 18:53 Freq: QWEEK Status: Active Protocol: Activity Type Activity Date Activity User E-Sign Co-Sign Detail Recorded Client Recorded Date Recorded By Document 04/27/20 09:59 KMT [id number] 04/27/20 10:06 KMT 04/27/20 09:59 Mobility (PT/OT/TR) Bed Mobility Current Status Mod-I Bed Mobility Weekly Goal Improve Date 04/20/20 Supine to Sit Current Status Mod-I Supine to Sit Weekly Goal Improve Date 04/20/20 Sit to Stand Current Status CGA Sit to Stand Weekly Goal SBA Date 04/20/20 Ambulate or W/C Current Status CGA with FWW x80'x1 Ambulate or W/C Weekly Goal SBA/CGA with FWW x150'x1 Date 04/20/20 Stairs Current Status NTY Stairs Weekly Goal up/down 1 step in // bars CGA Date 04/20/20 Sitting Balance Current Status I Sitting Balance Weekly Goal I Date 04/20/20 Standing Balance Current Status CGA with UE balance support Standing Balance Weekly Goal SBA with UE balance support Date 04/20/20 ROM UE Current Status wfl ROM UE Weekly Goal same Date 04/27/20 ROM LE Current Status B LE WFL ROM LE Weekly Goal B LE WFL Date 04/20/20 Strength UE Current State BUE 4/5 but fatigues Strength UE Weekly Goal BUE MMT= 4+/5 Date 04/27/20 Strength LE Current State B LE gross 4/5 Strength LE Weekly Goal B LE gross 4/5 Date 04/20/20 Endurance Current State Fair+ Endurance Weekly Goal Good- Date 04/20/20 Self Care (OT/NSG/CASH APPLICATIONS MANAGER/PT) UE Dressing Current Status s/u UE Dressing Weekly Goal Mod I Date 04/27/20 LE Dressing Current Status sba for balance in standing only LE Dressing Weekly Goal Mod I Date 04/27/20 Grooming Current Status s/u assist Grooming Weekly Goal Mod I Date 04/27/20 Feeding Current Status Independent Feeding Weekly Goal same 04/27/20 Housekeeping Meal Preparation Current Tolerates 3-4 Status minutes up at a time, requires max cues for safety/O2 cord Housekeeping Meal Preparation Weekly Mod I Goal Date 04/27/20 Bath Transfer Current Satus sba zero entry with FWW Bath Transfer Weekly Goal Mod I Date 04/27/20 Bathing Task Current Status s/u seated, sba for standing Bathing Task Weekly Goal improve Date 04/27/20 Toilet Transfer Current Status CGA/Min Toilet Transfer Weekly Goal improve Date 04/20/20 Toilet Transfer Weekly Goal SBA Date 04/20/20 Toilet Transfer Current Status Katie from elevated seat Toilet Transfer Weekly Goal SBA Date 04/27/20 Toilet Hygiene Current Status sba Toilet Hygiene Weekly Goal improve Date 04/27/20 Behavior/Cognizance(S LP/OT/TR) Cognition Current Status Impaired safety awareness, anxious, decreased understanding of need for O2 Cognition Weekly Goal improve Date 04/27/20 Cognition Current Status poor safety awareness, severe anxiety/ nervousness Cognition Weekly Goal demonstrate improvement Date 04/20/20 Visual Processing Neglect Current WFL State Visual Processing Neglect Weekly Goal same Date 04/27/20 Leisure/Recreation (TR) Skills Current Status SBA-CGA w/max/ rep cues for transfer techniques; max /rep cues breathing tech Skills Weekly Goal demonstrates improvement Date 04/20/20 Discharge Planning (SW/PT/OT) Anticipated Place of Discharge Current TBD Status Date 04/21/20 Caregivers Needed Current Status 24 hour supervision/ care Date 04/21/20 Equipment Current Status TBD Date 04/20/20 Equipment Current Status TBD Date 04/27/20 Equipment Current Status TBD Date 04/21/20 FTV/HSV Current Status TBD Date 04/27/20 OP/HH Therapy Current Status TBD Date 04/21/20 Family Meeting/Education Current Status TBD Date 04/21/20 Anticipated Discharge Date Current TBD Status Date 04/21/20 OT information entered by Fidelia Smith [facility] OT Swing/Rehab Daily Noteon 04-27-2020 OT Swing/Rehab Daily Note Occupational Therapy OT Rehab/Swing Daily Note Start: 04/13/20 11:04 Freq: Status: Active Protocol: Document 04/27/20 09:49 KMT (Rec: 04/27/20 09:58 KMT [id number]) General/Subjective General Referring Provider Jim Marshall OT Visit # am Diagnosis deconditio OT Treatment Diagnosis Muscle weakness (generalized) Additional OT Treatment Diagnosis/ Dx: Physical deconditioning s/ Clarification p hospitalization for COVID-19 pneumonia, bacterial pneumonia, acute respiratory failure with hypoxia Subjective Subjective pleasant, reports shower felt good Restrictions Weight Bearing Restrictions/Precauti ons fall risk, bed/chair alarms, supplemental O2 with oximask, recent loss of spouse, CHENEGA, wound on sacrum Objective Vital Signs Vitals at time of rehab on 2L of O2, O2 sats greater than 92% throughout Functional Ability ADL's shower UE/LE sba, required Katie for stand from shower chair, sba for standing balance for pericare/buttocks care; dressing ue maria l/doff s/u assist, LE maria l/doff sba Katie for sit to stand; toileting sba; noted throughout shower able to engage in conversation with only x2 rest breaks due to increased SOB Transfers toilet transfer with raised toilet seat Katie; functional mobility to/from shower with FWW sba; zero entry shower transfer sba Assessment/Plan Assessment Assessment good tolerance to shower, able to engage in conversation and task with increased SOB Plan Plan ADLs, bed mobility, increase activity tolerance Time Started 08:45 Time Ended 09:35 Total Treatment Time (Min) (min) 35 Charge Sheet G-Code Therapies Protocol: REHAB.8MIN Self Care/Home Management 2 Documentation Complete OT Charges/Documentation Finished? Yes Preliminary Draft Until Electronically Signed by Supervising Therapist [facility] POC Glucometer Teston 2020 Glucose [Mass/Vol] 167 mg/dL High 70-99 [facility] Comment on above: Performed By: #### P OCGLUCOMETER #### [facility] [address] [place] [id number] Glucose [Mass/Vol] 121 mg/dL High 70-99 [facility] Comment on above: Performed By: #### P OCGLUCOMETER ####[facility] [id number] [place] [address] Glucose [Mass/Vol] 171 mg/dL High 70-99 [facility] Comment on above: Performed By: #### P OCGLUCOMETER ####[facility] [id number] [place] [address] Glucose [Mass/Vol] 113 mg/dL High 70-99 [facility] Comment on above: Performed By: #### P OCGLUCOMETER ####[facility] [id number] [place] [address] Glucose [Mass/Vol] 203 mg/dL High 70-99 [facility] Comment on above: Performed By: #### P OCGLUCOMETER #### [facility] [address] [place] [id number] Glucose [Mass/Vol] 105 mg/dL High 70-99 [facility] Comment on above: Performed By: #### P OCGLUCOMETER #### [facility] [address] [id number] PT Discharge Noteon 04-27-19 21 PT Discharge Note PT Rehab/Swing Discharge Start: 04/13/20 08:19 Freq: Status: Discharge Protocol: Document 04/27/20 13:57 MW (Rec: 04/27/20 14:48 MW [id number]) Physical Therapy Discharge General Discharge Date 04/27/20 Referring Provider Jim Marshall Diagnosis deconditio PT Treatment Diagnosis Other malaise Additional PT Treatment Diagnosis/ Medical Dx: physical Clarification deconditioning s/p hospitilization for COVID-19 pneumonia, bacterial pneumonia , acute respiratory failure with hypoxia Reason for Discharge Transfer (other facility/level of care) Restrictions/Precauti ons fall risk, bed/chair alarms, supplemental O2 with oximask, recent loss of spouse, CHENEGA, wound on sacrum Goal Review Physical Therapy STG's Within 3 weeks: 1. (Met) Patient will complete bed mobility (supine to sitting EOB) at [facility] to promote independence within home. 2. (Not Met: requires Katie to modA with FWW depending on height surfaces) Patient will perform sit to stand transfers from varying surfaces with FWW at [facility]. 3. (Nearly Met: amb 150ft with FWW at CGA and therapist managing O2 tank/line) Patient will ambulate 100ft with FWW at SBA to CGA and while demonstrating walker safety without verbal cues to decrease fall risk with household ambulation. 4. (Not Met: requires seated rest break following 3 minutes of standing ther ex with martita UE support) Patient will participate in 5 minutes of standing ther ex while maintaining SpO2 at 90% or greater to improve activity tolerance with household and selfcare tasks. 5. (Met) Patient will be provided with written HEP and demonstrate exercises independently to promote carryover at home. 6. (Not Met: AM-PAC Raw Score= 18; CMS Score=40% Impairment) Patient will demonstrate improved independence with functional mobility by scoring 33% impairment or better on the [facility] AM-PAC ' 6-Clicks' Basic Mobility (V2) Inpatient Short Form Score. Progression Toward Goals Patient has made fair progress with physical therapy but has not met all established goals . Patient requires 24 hour assistance/superiviso n at home secondary to assist level to compelte functional tasks, impaired dynamic balance, poor safety/judgement, increase difficulty to manage O2 tank/ line, and decrease in SPO2 with exertional activity. Patient is transferring from [facility] rehab to SNF/ECF for more appropriate care. D/C Status, HEP Mobility Bed Mobility supine<>sitting EOB: LANCE Transfers sit to stand: Katie to modA with FWW; may require multiple attempts and utilizes momentum to achieve upright standing; requires increase assistance when rising from lower surfaces Balance sitting: LANCE standing static: SBA with bilateral UE support standing dynamic: CGA with bilateral UE support Gait Amb 150ft with FWW at CGA and therapist managing O2 tank/ line; abnormal gait mechanics include: decrease calixto, NBOS, mild gait deviations, and bilateral feet ER Assistive Devices Rolling Walker Ambulation Distance 150 Stairs negotiates 3" step with bilateral UE support at SBA; only able to complete few repetitions as patient fatigues quickly Endurance Fair+ Strength/ROM Bilateral LE AROM: WFL Bilateral LE MMT: hip flex 3- to 3/5, hip add 4/5, hip abd 4 -/5, knee ext 4/5, knee flex 4 /5, ankle DF/PF 4/5 Recommendations/Other Physical Therapy Recommendations PT recommending patient be discharged to SNF/ECF for more appropriate care at this time . Patient will require 24 hour assistance/supervisio n to promote safety when completing functional mobility. PT recommending SPO2 be closely monitored as it decreases with exertional activity and patient becomes SOB. PT recommending patient utilize energy conservation techniques secondary to quick onset of muscle fatigue. Discharge Location/Services Patient being transferred from [facility] rehab to SNF/ECF for more appropriate care. Summary Summation Outcome Measures/Standardized Assessment [facility] AM-PAC '6- Used Clicks' Basic Mobility *V2* Inpatient Short Form: AM-PAC Raw Score=18; CMS Score=40% Impairment Discharge Assessment Patient has made fair progress with physical therapy but has not met all established goals and is now being transferred to SNF/ECF for more appropriate care. Patient completes bed mobility at LANCE , sit to stand at Katie to modA depending on surface height, and ambulation with FWW at CGA . Patient continues to require assistance to manage O2 tank/ line secondary to poor awareness when completing functional tasks. PT recommending oxygen saturation be closely monitored as it decreases with exertional activity. Patient will highly benefit from skilled PT services at SNF with focus on strength training, balance training, and gait training to optimize functional recovery and restore to PLOF. Charge Sheet G-Code Documentation Complete PT Charges/Documentation Finished? Yes Last Visit Is patient being discharged from PT Yes today? Preliminary Draft Until Electronically Signed by Supervising Therapist [facility] PT Rehab/Swing Daily Noteon 04-27-2020 PT Rehab/Swing Daily Note Physical Therapy PT Rehab/Swing Daily Note. Start: 04/13/20 08:19 Freq: Status: Active Protocol: Document 04/27/20 10:16 BLG (Rec: 04/27/20 10:18 BLG [id number]) General/Subjective General Date of Admission 04/12/20 Referring Provider Jim Marshall PT Visit # AM Diagnosis deconditio PT Treatment Diagnosis Other malaise Additional PT Treatment Diagnosis/ Medical Dx: physical Clarification deconditioning s/p hospitilization for COVID-19 pneumonia, bacterial pneumonia , acute respiratory failure with hypoxia Subjective Subjective Pt seated EOB finishing self care act with VIRIDIANA when SCIENTIFIC SOFTWARE DEVELOPER arrived for session. Pt stated increased fatigue at start of session yet stated he is willing to participate. Resp. therapy arrived at start of session to administer meds. Pt 's O2 on 3L of portable O2 at start of session: 93%. Precautions Restrictions/Precauti ons fall risk, bed/chair alarms, supplemental O2 with oximask, recent loss of spouse, CHENEGA, wound on sacrum Objective Mobility Transfers Sit->stand from EOB, lower/ soft surface with pt rocking to get COG over CHINMAY-Min A with 2 attempts needed to fully complete Sit<->stand from nu step to RW -CGA Balance Seated: Mod I Standing: CGA with UE support Gait Pt amb with use of RW with a step through gait pattern with a narrow CHINMAY and B LE ER with no LOB noted, verbal cues required to maintain use of AD when setting up to transfer surfaces-50'/150'-CGA with SCIENTIFIC SOFTWARE DEVELOPER managing portable O2 tank. Assistive Devices Rolling Walker Endurance Fair+ Therapeutic Exercises Therapeutic Exercise Nu step act with B UE/LE use on LV1 5 mins then a rest break with pt then progressing to 10 mins total all to increase endurance and gentle strengthening. Seated act B LE's all x 10: -AP's -LAQ -Alternating marches -Hip abd/add -Glute sets Assessment and Plan Assessment Assessment Pt required a seated rest break at EOB at start of session with Resp therapy arriving to administer meds. Pt then progressed with sit-> stand from EOB requiring increased assist d/t lower/ soft surface with pt requiring 2 attempts to fully complete transfer at Min A. Pt then progressed with amb as listed above f/b Nu step act for endurance and strengthening with pt able to tolerate 5 mins before needing a rest break with O2 at 92%. Pt was then able to progress to a total of 10 mins with O2 at 95 %. Pt required a seated rest break before continuing on with seated ther ex as listed above. Pt fatigues quickly and requires verbal cues often for proper breathing techniques. Pt then progressed with increased distance in amb at 150' with pt presenting with increased fatigue and SOB with O2 at 92% once seated , no LOB noted this date. Pt stated 0/10 pain at start and end of session. Pt left resting in chair in therapy gym with staff present on 3L of portable O2. SW arrived at end of session and reported pt will be D/C'ing to ECF this PM. Disposition at end of Eval/Treatment Up in chair,Staff in room,All needs met Plan Plan Continue to progress strength, endurance, and mobility per pt's tolerance. Time Started 09:35 Time Ended 10:15 Total Treatment Time (Min) (min) 40 Timed Code Treatment Minutes (min) 40 Charge Sheet G-Code Therapies Protocol: REHAB.8MIN Therapeutic Exercise 2 Gait Training 1 Documentation Complete PT Charges/Documentation Finished? Yes Last Visit Is patient being discharged from PT No today? Preliminary Draft Until Electronically Signed by Supervising Therapist [facility] PT Rehab/Swing Daily Note Physical Therapy PT Rehab/Swing Daily Note. Start: 04/13/20 08:19 Freq: Status: Active Protocol: Document 04/27/20 08:05 [facility] (Rec: 04/27/20 08:23 [facility] [id number]) General/Subjective General Date of Admission 04/12/20 Referring Provider Jim Marshall PT Visit # ADL Diagnosis deconditio PT Treatment Diagnosis Other malaise Additional PT Treatment Diagnosis/ Medical Dx: physical Clarification deconditioning s/p hospitilization for COVID-19 pneumonia, bacterial pneumonia , acute respiratory failure with hypoxia Subjective Subjective Pt supine in bed when SCIENTIFIC SOFTWARE DEVELOPER arrived for session this date. Pt pleasant and willing to get OOB with no reports of pain. Pt's O2 on 3L of wall air once seated EOB: 88% that recovered to 92% with verbal cues for proper breathing technique. Precautions Restrictions/Precauti ons fall risk, bed/chair alarms, supplemental O2 with oximask, recent loss of spouse, CHENEGA, wound on sacrum Objective Mobility Bed Mobility Supine->Sit-Mod I Transfers Sit->stand from EOB to RW from lower/soft surface-CGA/Min A Sit<->Stand from chair with armrest to RW-[facility] Balance Seated: Mod I Standing: CGA with UE Support Gait Pt amb with RW with SCIENTIFIC SOFTWARE DEVELOPER managing portable O2 tank with pt presenting with a narrow CHINMAY with B LE ER with a step through gait pattern with verbal cues required to maintain use of AD while setting up to transfer surfaces-CGA 75' x 2 Assistive Devices Rolling Walker Endurance Fair+ Other Dressing act seated at EOB without assistance needed from SCIENTIFIC SOFTWARE DEVELOPER Therapeutic Exercises Therapeutic Exercise Seated ther ex B LE's all x 10 : -AP's -LAQ -Alternating marches -Hip abd/add -Glute sets Assessment and Plan Assessment Assessment Pt started session with supine ->sit EOB with O2 on 3L of wall air at 88% that recovered to 92% with verbal cues required for proper breathing technique. Pt then progressed with dressing act seated EOB without assistance needed. Pt then progressed with sit-> stand from EOB to RW as listed above with increased assistance needed d/t lower/ soft surface. Pt progressed with amb as listed above f/b stand->sit with O2 ranging from 87-93% with verbal cues for proper breathing technique . Pt then progressed with seated ther ex with O2 at 95- 96% on 3L of portable O2. Pt then progressed with sit-> Stand from chair with armrests at [facility] f/b amb as listed above with pt requesting to sit EOB for breakfast. Pt let resting at EOB with O2 on 3L of wall air with tray table and call light within reach. Disposition at end of Eval/Treatment Seated Edge of Bed,Staff in room,Call light/phone within reach,Tray table within reach, All needs met Plan Plan Continue to progress strength, endurance, and mobility per pt's tolerance. Time Started 07:35 Time Ended 08:00 Total Treatment Time (Min) (min) 25 Timed Code Treatment Minutes (min) 25 Charge Sheet G-Code Therapies Protocol: REHAB.8MIN Therapeutic Exercise 1 Gait Training 1 Documentation Complete PT Charges/Documentation Finished? Yes Last Visit Is patient being discharged from PT No today? Preliminary Draft Until Electronically Signed by Supervising Therapist [facility] OT Noteon 04-26-2020 OT Note Weekly Rehab Team Goal Weekly Rehab Team Goals Start: 04/12/20 18:53 Freq: QWEEK Status: Active Protocol: Activity Type Activity Date Activity User E-Sign Co-Sign Detail Recorded Client Recorded Date Recorded By Document 04/26/20 10:44 [facility] [id number] 04/26/20 10:47 [facility] 04/26/20 10:44 Mobility (PT/OT/TR) Bed Mobility Current Status Mod-I Bed Mobility Weekly Goal Improve Date 04/20/20 Supine to Sit Current Status Mod-I Supine to Sit Weekly Goal Improve Date 04/20/20 Sit to Stand Current Status CGA Sit to Stand Weekly Goal SBA Date 04/20/20 Ambulate or W/C Current Status CGA with FWW x80'x1 Ambulate or W/C Weekly Goal SBA/CGA with FWW x150'x1 Date 04/20/20 Stairs Current Status NTY Stairs Weekly Goal up/down 1 step in // bars CGA Date 04/20/20 Sitting Balance Current Status I Sitting Balance Weekly Goal I Date 04/20/20 Standing Balance Current Status CGA with UE balance support Standing Balance Weekly Goal SBA with UE balance support Date 04/20/20 ROM UE Current Status wfl ROM UE Weekly Goal same Date 04/26/20 ROM LE Current Status B LE WFL ROM LE Weekly Goal B LE WFL Date 04/20/20 Strength UE Current State BUE 4/5 but fatigues Strength UE Weekly Goal BUE MMT= 4+/5 Date 04/26/20 Strength LE Current State B LE gross 4/5 Strength LE Weekly Goal B LE gross 4/5 Date 04/20/20 Endurance Current State Fair+ Endurance Weekly Goal Good- Date 04/20/20 Self Care (OT/NSG/CASH APPLICATIONS MANAGER/PT) UE Dressing Current Status setup/sba, cues to redonn supplemental O2 UE Dressing Weekly Goal Mod I Date 04/26/20 LE Dressing Current Status CGA for balance for standing portions LE Dressing Weekly Goal Mod I Date 04/26/20 Grooming Current Status s/u assist Grooming Weekly Goal Mod I Date 04/26/20 Feeding Current Status Independent Feeding Weekly Goal same Date 04/26/20 Housekeeping Meal Preparation Current Tolerates 3-4 Status minutes up at a time, requires max cues for safety/O2 cord Housekeeping Meal Preparation Weekly Mod I Goal Date 04/26/20 Bath Transfer Current Satus Min A with tub transfer bench Bath Transfer Weekly Goal Mod I Date 04/26/20 Bathing Task Current Status supervision seated on tub bench Bathing Task Weekly Goal improve Date 04/26/20 Toilet Transfer Current Status CGA/Min Toilet Transfer Weekly Goal improve Date 04/20/20 Toilet Transfer Current Status CGA Toilet Transfer Weekly Goal SBA Date 04/20/20 Toilet Transfer Current Status CGA to BSC and standing to use urinal Toilet Transfer Weekly Goal SBA Date 04/26/20 Toilet Hygiene Current Status SBA-CGA for balance Toilet Hygiene Weekly Goal improve Date 04/26/20 Behavior/Cognizance(S LP/OT/TR) Cognition Current Status Impaired safety awareness, anxious, decreased understanding of need for O2 Cognition Weekly Goal improve Date 04/26/20 Cognition Current Status poor safety awareness, severe anxiety/ nervousness Cognition Weekly Goal demonstrate improvement Date 04/20/20 Visual Processing Neglect Current WFL State Visual Processing Neglect Weekly Goal same Date 04/26/20 Leisure/Recreation (TR) Skills Current Status SBA-CGA w/max/ rep cues for transfer techniques; max /rep cues breathing tech Skills Weekly Goal demonstrates improvement Date 04/20/20 Discharge Planning (SW/PT/OT) Anticipated Place of Discharge Current TBD Status Date 04/21/20 Caregivers Needed Current Status 24 hour supervision/ care Date 04/21/20 Equipment Current Status TBD Date 04/20/20 Equipment Current Status TBD Date 04/26/20 Equipment Current Status TBD Date 04/21/20 FTV/HSV Current Status TBD Date 04/26/20 OP/HH Therapy Current Status TBD Date 04/21/20 Family Meeting/Education Current Status TBD Date 04/21/20 Anticipated Discharge Date Current TBD Status Date 04/21/20 OT information entered by Daylin Schuster OTR/L [facility] OT Swing/Rehab Daily Noteon 04-26-2020 OT Swing/Rehab Daily Note Occupational Therapy OT Rehab/Swing Daily Note Start: 04/13/20 11:04 Freq: Status: Active Protocol: Document 04/26/20 14:29 TGS (Rec: 04/26/20 14:36 TGS [id number]) General/Subjective General Referring Provider Jim Marshall OT Visit # pm Diagnosis deconditio OT Treatment Diagnosis Muscle weakness (generalized) Additional OT Treatment Diagnosis/ Dx: Physical deconditioning s/ Clarification p hospitalization for COVID-19 pneumonia, bacterial pneumonia, acute respiratory failure with hypoxia Subjective Subjective Patient is pleasant and cooperative. Restrictions Weight Bearing Restrictions/Precauti ons fall risk, bed/chair alarms, supplemental O2 with oximask, recent loss of spouse, CHENEGA, wound on sacrum Objective Functional Ability ADL's CGA for dynamic standing to doff pants over hips, sba in seated to slide pants over feet using leg crossing technique Standing/Activity Tolerance Pt stood for 1 x 2 min 30 sec, 1 x 3 min 40 sec and 1 x 3 min 20 sec with rest breaks in between requiring SBA-CGA for balance Transfers CGA-min assist for sit to stand transfers; Balance CGA-SBA for dynamic standing balance Assessment/Plan Assessment Assessment progressing with standing balance; cues for breathing techniques Disposition at end of Eval/Treatment In bed,Bed Alarm,Call light/ phone within reach,Tray table within reach,All needs met Plan Plan ADLs, bed mobility, increase activity tolerance Time Started 13:35 Time Ended 14:00 Total Treatment Time (Min) (min) 25 Timed Code Treatment Minutes (min) 25 Charge Sheet G-Code Therapies Protocol: REHAB.8MIN Therapeutic Activity 2 Documentation Complete OT Charges/Documentation Finished? Yes Last Visit Is patient being discharged from OT No today? Preliminary Draft Until Electronically Signed by Supervising Therapist [facility] OT Swing/Rehab Daily Note Occupational Therapy OT Rehab/Swing Daily Note Start: 04/13/20 11:04 Freq: Status: Active Protocol: Document 04/26/20 10:22 TGS (Rec: 04/26/20 10:30 TGS [id number]) General/Subjective General Referring Provider Jim Marshall OT Visit # am Diagnosis deconditio OT Treatment Diagnosis Muscle weakness (generalized) Additional OT Treatment Diagnosis/ Dx: Physical deconditioning s/ Clarification p hospitalization for COVID-19 pneumonia, bacterial pneumonia, acute respiratory failure with hypoxia Subjective Subjective pleasant Restrictions Weight Bearing Restrictions/Precauti ons fall risk, bed/chair alarms, supplemental O2 with oximask, recent loss of spouse, CHENEGA, wound on sacrum Rehab Education Education Provided Education Provided: Details Family education with patient, patient's sons, PT, OT, RT, and SW. Discussed patient's current status with self care tasks and transfers and current status toward goals. Recommendations including 24/ supervision with hands on assist due to safety concerns with balance and transfers and mobility; concerns with supplemental 02 cord management and highfall risk; and discharge planning. Plan is for patient to discharge to an F for continued therapy services and to allow for the supervision that is recommended. Family is unable to provide the supervision at this time. SW and family is deciding on facilities. Assessment/Plan Assessment Assessment Family meeting from [id number] Plan Plan ADLs, bed mobility, increase activity tolerance Time Started 09:40 Time Ended 10:20 Total Treatment Time (Min) (min) 15 Timed Code Treatment Minutes (min) 15 Charge Sheet G-Code Therapies Protocol: REHAB.8MIN Self Care/Home Management 1 Documentation Complete OT Charges/Documentation Finished? Yes Last Visit Is patient being discharged from OT No today? Preliminary Draft Until Electronically Signed by Supervising Therapist [facility] OT Swing/Rehab Daily Note Occupational Therapy OT Rehab/Swing Daily Note Start: 04/13/20 11:04 Freq: Status: Active Protocol: Document 04/26/20 09:32 TGS (Rec: 04/26/20 09:41 TGS [id number]) General/Subjective General Referring Provider Jim Marshall OT Visit # am Diagnosis deconditio OT Treatment Diagnosis Muscle weakness (generalized) Additional OT Treatment Diagnosis/ Dx: Physical deconditioning s/ Clarification p hospitalization for COVID-19 pneumonia, bacterial pneumonia, acute respiratory failure with hypoxia Subjective Subjective Pt is pleasant and cooperative . Agreeable to engage in therapy session. Restrictions Weight Bearing Restrictions/Precauti ons fall risk, bed/chair alarms, supplemental O2 with oximask, recent loss of spouse, CHENEGA, wound on sacrum Objective Vital Signs Vitals at time of rehab Pt on 2 L of supplemental 02; dropped to 87% after standing during adl's however recovered to 92% within a minutes; 93- 94% during exercises while remaining seated Functional Ability ADL's setup for upper body sponge bathing and lower body sponge bathing while remaining seated and CGA in standing to wash periarea and buttocks region; setup to maria l shirt; setup/sba to maria l underwear and pants using leg crossing technique to slide over feet and CGA in standing to slide over waist side due to decreased balance; declined socks; stood and used urinal requiring CGA for balance; Bed Mobility SBA Transfers min assist for sit to stand transfer from bed; CGA or mobility with fww from room to therapy room Balance CGA for balance in standing while engaging in adls Therapeutic Exercise Exercise Comment 3# dowel exercises to maximize UB strength/endurance for fww use and transfers: 1 sets x15 each: overhead press, chest press, bicep curls, side-to- sides, forward rows. [ End ] Assessment/Plan Assessment Assessment progressing with adls and transfers Disposition at end of Eval/Treatment Up in chair,Staff in room,All needs met Plan Plan ADLs, bed mobility, increase activity tolerance Time Started 08:45 Time Ended 09:30 Total Treatment Time (Min) (min) 45 Timed Code Treatment Minutes (min) 45 Charge Sheet G-Code Therapies Protocol: REHAB.8MIN Therapeutic Exercise 1 Self Care/Home Management 2 Documentation Complete OT Charges/Documentation Finished? Yes Last Visit Is patient being discharged from OT No today? Preliminary Draft Until Electronically Signed by Supervising Therapist [facility] PT Rehab/Swing Daily Noteon 04-26-2020 PT Rehab/Swing Daily Note Physical Therapy PT Rehab/Swing Daily Note. Start: 04/13/20 08:19 Freq: Status: Active Protocol: Document 04/26/20 14:12 HMT (Rec: 04/26/20 14:34 HMT [id number]) General/Subjective General Date of Admission 04/12/20 Referring Provider Jim Marshall PT Visit # pm Diagnosis deconditio PT Treatment Diagnosis Other malaise Additional PT Treatment Diagnosis/ Medical Dx: physical Clarification deconditioning s/p hospitilization for COVID-19 pneumonia, bacterial pneumonia , acute respiratory failure with hypoxia Subjective Subjective Pt notes no new c/o this pm, family left to return home. Precautions Restrictions/Precauti ons fall risk, bed/chair alarms, supplemental O2 with oximask, recent loss of spouse, CHENEGA, wound on sacrum Objective Mobility Bed Mobility supine-sit LANCE/I Transfers sit-stand from bed sba, onto commode sba-cga, from chair in // bars but using armrests sba, patient following correct techniques and no posterior LOB noted Gait ww 100 feet x 2, including up into // bars, but cueing needed to keep ww at all times ; sba to occcassional cga as entered // bars; on way back to room able to open door and use ww safely at sba, able to turn in bathroom without losing balance. Stairs // bars: up and down edwards step 3 reps and 6 reps using // bars at sba Endurance fair+ Therapeutic Exercises Therapeutic Exercise // bars standing: up and down edwards step as noted above for strengthening followed by minisquats with emphasis on hip and knee extension, 2 reps x 10 each with one seated rest break as well as standing rest breaks; on 3L supplemental oxygen sats ranged 91-94%, patient needed cueing to slow down breathing and take deep slow breaths. Exercise Tolerance Fair Exercise Comment fatigues easily and breathing rates increase, cueing to slow down. Assessment and Plan Assessment Assessment Patient was able to go up and down step in // bars, and try minisquats as well but fatigued quickly. Walked to and from therapy with a quicker pace today as well, but still get winded easily. Disposition at end of Eval/Treatment Bathroom/Bedside Commcarl,RN/ DIRECTOR OF STRATEGIC SOURCING informed,All needs met Plan Plan Progress standing therex. Time Started 13:00 Time Ended 13:25 Total Treatment Time (Min) (min) 25 Timed Code Treatment Minutes (min) 25 Charge Sheet G-Code Therapies Protocol: REHAB.8MIN Therapeutic Exercise 1 Gait Training 1 Documentation Complete PT Charges/Documentation Finished? Yes Last Visit Is patient being discharged from PT No today? Preliminary Draft Until Electronically Signed by Supervising Therapist [facility] PT Rehab/Swing Daily Note Physical Therapy PT Rehab/Swing Daily Note. Start: 04/13/20 08:19 Freq: Status: Active Protocol: Document 02/02/21 10:24 HMT (Rec: 04/26/20 10:44 HMT [id number]) General/Subjective General Date of Admission 04/12/20 Referring Provider Jim Marshall PT Visit # am Diagnosis deconditio PT Treatment Diagnosis Other malaise Additional PT Treatment Diagnosis/ Medical Dx: physical Clarification deconditioning s/p hospitilization for COVID-19 pneumonia, bacterial pneumonia , acute respiratory failure with hypoxia Subjective Subjective Pt notes that family is still coming today for a family meeting. Notes knows it lucio be best to go somewhere for more therapy as cannot be home alone. Precautions Restrictions/Precauti ons fall risk, bed/chair alarms, supplemental O2 with oximask, recent loss of spouse, CHENEGA, wound on sacrum Rehab Education Education Provided Education Provided: Details Family meeting today completed with patient, 2 sons and another family member. SUCTION OPERATOR, OT, and recreational therapy also present. Meeting from 930-1030 am with all members present. PT discussed current functional status, concerns with mobilities and gait, assistance and supervision levels required and need for physical assistance at times. Also reviewed oxygen saturations, breathing techniques and safety with functional tasks and ambulation, as well as expected outcomes with more therapy. Family has decided to be d/c to [facility] for further skilled care. Teaching Recipient Patient,Family Teaching Method Verbal Response to Teaching Verbalize understanding Assessment and Plan Assessment Assessment Patient and family very receptive to suggestions and happy with outcomes. Patient expressed that has been working on breathing techniques with activities and feels like is doing better. Need to continue to progress walking distances with less supervision and steps. Disposition at end of Eval/Treatment Up in chair,Family in room,All needs met Plan Plan Progress functional activities and mobilities. Time Started 09:30 Time Ended 10:30 Total Treatment Time (Min) (min) 15 Timed Code Treatment Minutes (min) 15 Charge Sheet G-Code Therapies Protocol: REHAB.8MIN Self Care/Home Management 1 Documentation Complete PT Charges/Documentation Finished? Yes Last Visit Is patient being discharged from PT No today? Preliminary Draft Until Electronically Signed by Supervising Therapist [facility] PT Rehab/Swing Daily Note Physical Therapy PT Rehab/Swing Daily Note. Start: 04/13/20 08:19 Freq: Status: Active Protocol: Document 04/26/20 08:15 TLW (Rec: 04/26/20 08:26 TLW [id number]) General/Subjective General Date of Admission 04/12/20 Referring Provider Jim Marshall PT Visit # ADL Diagnosis deconditio Additional PT Treatment Diagnosis/ Medical Dx: physical Clarification deconditioning s/p hospitilization for COVID-19 pneumonia, bacterial pneumonia , acute respiratory failure with hypoxia Subjective Subjective Patient agrees to get out of bed and walk prior to breakfast. Precautions Restrictions/Precauti ons fall risk, bed/chair alarms, supplemental O2 with oximask, recent loss of spouse, CHENEGA, wound on sacrum Objective Mobility Bed Mobility MOD I bed mobility supine to sit HOB elevated and using handrail Transfers sit to stand from bed to wheeled walker cout to three CGA/SBA Balance Stand to walker to pull up pants CGA LOB but able to self correct. Gait gait using wheeled walker 2L O2 SPO2 91% after walk 85'x1 Endurance good- to fair+ Other Patient gretta to put his zip jacket on and bend down to put pants on without assistance. Therapeutic Exercises Exercise Tolerance Good Assessment and Plan Assessment Assessment Patient requests sitting EOB for breakfast, states bedside chair is too low. I offered a cushion but he refused. Disposition at end of Eval/Treatment Seated Edge of Bed,Staff in room,Call light/phone within reach,Tray table within reach, All needs met Plan Plan Family meeting today. Continue with functional mobilities and standing. Time Started 07:35 Time Ended 07:50 Total Treatment Time (Min) (min) 15 Timed Code Treatment Minutes (min) 15 Charge Sheet G-Code Therapies Protocol: REHAB.8MIN Therapeutic Activity 1 Documentation Complete PT Charges/Documentation Finished? Yes Last Visit Is patient being discharged from PT No today? Preliminary Draft Until Electronically Signed by Supervising Therapist [facility] Internal Med Progress Noteon 04-25-2020 Internal Med Progress Note [address] [address] Internal Med Progress Note Signed PRELIMINARY DRAFT REPORT UNTIL ELECTRONICALLY SIGNED PATIENT: Mick Cottrell MR#: [id number] : 1940 AGE/SEX: 79 / M ADMITTED: 04/12/20 1837 OUTSIDE LOCN: LOCATION: [place] [id number] ATTENDING: Jim Marshall MD cc: ; Date of Encounter: 04/25/20 Time of Encounter: 15:12 - Assessment and plan (1) Acute respiratory failure with hypoxia Current Visit: Yes Status: Acute Assessment and plan: Patient continues to require oxygen at 2?3 liters per Oxymizer mask to maintain saturations greater than 90%, but today he has been titrated to RA and his Ox sat has been 92-94%. Patient continues to saturate slightly during therapy but quickly recovers. Patient has been treated for both bacterial and Covid pneumonia. We will continue to maintain oxygen saturations greater than 90% by titration of oxygen (2) COVID-19 Current Visit: Yes Status: Acute Assessment and plan: No acute issues. Patient was first diagnosed with Covid on 03/05/20 and again on 03/28/20. Patient is currently no longer on isolation. Patient did receive, convalescent plasma and REM decimeter during his hospitalization in February. Patient has finished his course of antibiotics for secondary bacterial pneumonia. Patient's inflammatory markers continue to trend down. We will continue with therapy (3) Diabetes mellitus Current Visit: Yes Status: Chronic Assessment and plan: Patients glucose has been fairly well-controlled most readings less than 250. Patient's most recent A1c is 7.6 from 04/08/20. We will continue with his sliding scale coverage and metformin Qualifiers: Diabetes mellitus type: type 2 Diabetes mellitus ranch hand insulin use: without snf use Diabetes mellitus complication status: without complication Qualified Code(s): E11.9 - Type 2 diabetes mellitus without complications (4) COPD (chronic obstructive pulmonary disease) Current Visit: Yes Status: Chronic Assessment and plan: No acute issues. Patient continues to require oxygen to maintain saturation greater than 90%. Patient has been treated for bacterial pneumonia and has finished his course. We will continue with his current cortical steroids and bronchodilators Qualifiers: COPD type: unspecified COPD Qualified Code(s): J44.9 - Chronic obstructive pulmonary disease, unspecified (5) HTN (hypertension) Current Visit: Yes Status: Chronic Assessment and plan: No acute issues. Vital signs stable. We will continue with current medications Qualifiers: Hypertension type: essential hypertension Qualified Code(s): I10 - Essential (primary) hypertension (6) BPH (benign prostatic hyperplasia) Current Visit: Yes Status: Chronic Assessment and plan: No current issues. Patient denies any hesitation or nocturia. We will continue with his Proscar Qualifiers: Lower urinary tract symptom presence: symptoms absent Qualified Code(s): N40.0 - Benign prostatic hyperplasia without lower urinary tract symptoms (7) Systolic heart failure Current Visit: Yes Status: Chronic Assessment and plan: Patient denies any chest discomforts or palpitations. No pedal edema noted. We will continue with his current daily Lasix. Patient also on aspirin, Lipitor and metoprolol Qualifiers: Heart failure chronicity: chronic Qualified Code(s): I50.22 - Chronic systolic (congestive) heart failure (8) GERD (gastroesophageal reflux disease) Current Visit: Yes Status: Chronic Assessment and plan: Patient denies any reflux or epigastric discomforts. We will continue on his current PPI Qualifiers: Esophagitis presence: with esophagitis Esophagitis bleeding: without hemorrhage Qualified C ode(s): K21.00 - Gastro-esophageal reflux disease with esophagitis, without bleeding (9) Paroxysmal atrial fibrillation Current Visit: Yes Status: Chronic Assessment and plan: No current issues. Patient's heart rate has been well controlled with ventricular rate less than 100. We will continue with his metoprolol and Xarelto - Time Spent With Patient 25 - 35 minutes - Subjective Interval history: Mr. Cottrell is a 79 year old male with known past medical history of HFpEF, COPD, CVA, A-Fib, HTN, DM2, BPH who was admitted at [facility] on 03/05 with cough, SOB, and malaise for 5 days. Hospital course complicated by development of new A-Fib RVR as well as acute metabolic encephalopathy. Patient was placed on supplemental O2 and required up to HHFNC at 40L/60%. Patient was given high dose dexamethasone, transfusion of convalescent plasma, and course of remdesivir, with eventual improvement in his symptoms and oxygenation. He was transferred to our [facility] during that hospitalization as lateral transfer to continue his further acute medical care and eventually transitioning him to swing bed for his physical deconditioning. When he was in rehab facility one day he became more hypoxic with worsening respiratory failure. He got readmitted at [facility] on 03/28/2020 with acute hypoxic resp failure due to multi focal pneumonia. He happened to have hemoptysis too. He was evaluated by Technical Planner who held his anti coag Eliquis and continued IV Decadran and empirical abx Levaquin. His hemoptysis resolved and his oxygen requirement came down to 4-6 lit now. Due to bed crunch for Covid positive patients at [facility] he was sent to our facility [facility] as lateral trasnfer to continue further medical care and possible rehab when he becomes more medically stable. We continued his Decadron and other supportive measures. His symptoms imroved and able to participate in rehab. He was transferred to rehab facility. Patient appears relaxed currently denies any discomforts or shortness of breath. He remains on 2?3 liters of oxygen per oxygen mask. Patient's labs are reviewed with most recent hemoglobin at 10.2. Patient showing mild thrombocytopenia with a platelet count 80. Patient continues to have elevated d-dimer at 2316. Patient's serum bicarbonate is 31. Mg 1.3 today. Patient's glucoses been fairly well-controlled with most readings less than 250 - Constitutional Vitals: Temp Pulse Resp BP Pulse Ox 97.6 F 83 16 152/66 94 04/25/20 08:47 04/25/20 08:47 04/25/20 08:47 04/25/20 08:47 04/25/20 08:47 General appearance: Present: cooperative, A O X 3, pleasant, no acute distress, answers questions appropriately - Head Head exam: Present: atraumatic, normocephalic - Eye Eye exam: Present: PERRL, conjuntiva pink, sclera anicteric Pupils: Present: PERRL - Neck Neck exam general surgery: Present: supple, trachea midline. Absent: lymphadenopathy - Respiratory Respiratory exam: Present: decreased breath sounds, CTAB. Absent: accessory muscle use, rales, rhonchi, wheezes - Cardiovascular Cardiovascular exam: Present: RRR, +S1, +S2. Absent: diastolic murmur, gallop, rubs, systolic murmur - GI/Abdominal GI/Abdominal exam: Present: normal bowel sounds, soft, no peritoneal signs. Absent: distended, tenderness - Extremities Exam Extremities exam: Present: warm, radial pulses palpable and symmetrical. Absent: calf tenderness, cyanotic, pedal edema - Neurological Exam Neurological exam: Present: CN II-XII intact, oriented X3, no focal deficits. Absent: pronater drift, facial droop, speech deficit - Skin Skin exam: Present: dry, intact Internal Medicine: Result - Labs CBC Chem 7: 04/24/20 04:14 04/24/20 04:14 - ABG Interpretation ABG results: PT/INR, D-dimer D-Dimer 2316 ng/mLFEU (0-500) H 04/24/20 04:14 Consult Discharge Plan - Plan Referrals: Jim Marshall MD [Primary Care Provider] - Documented By: Jenaro Morales ACTIVITY THERAPY SPECIALIST Signed By: 04/25/20 1517 DD/ 1511 Initialized By: [id number] [facility] OT Swing/Rehab Daily Noteon 04-25-2020 OT Swing/Rehab Daily Note Occupational Therapy OT Rehab/Swing Daily Note Start: 04/13/20 11:04 Freq: Status: Active Protocol: Document 04/25/20 15:02 KMT (Rec: 04/25/20 15:07 KMT [id number]) General/Subjective General Referring Provider Jim Marshall OT Visit # am Diagnosis deconditio OT Treatment Diagnosis Muscle weakness (generalized) Additional OT Treatment Diagnosis/ Dx: Physical deconditioning s/ Clarification p hospitalization for COVID-19 pneumonia, bacterial pneumonia, acute respiratory failure with hypoxia Subjective Subjective reports getting tired Restrictions Weight Bearing Restrictions/Precauti ons fall risk, bed/chair alarms, supplemental O2 with oximask, recent loss of spouse, CHENEGA, wound on sacrum Objective Functional Ability ADL's LE dress doffing pants CGA for standing; UE doff set up Bed Mobility sit to supine sba Transfers sit to stand CGA with minimal cues for technique; functional mobility with FWW CGA, standing rest break with verbal cues for breathing techniques Therapeutic Exercise Exercise Comment arm bike 2 minutes level 1, 3 minutes level2, 4 minutes level 4 with rest breaks between Assessment/Plan Assessment Assessment fair tolerance, frequent rest breaks needed Plan Plan ADLs, bed mobility, increase activity tolerance Time Started 13:30 Time Ended 14:00 Total Treatment Time (Min) (min) 30 Charge Sheet G-Code Therapies Protocol: REHAB.8MIN Therapeutic Activity 1 Self Care/Home Management 1 Documentation Complete OT Charges/Documentation Finished? Yes Preliminary Draft Until Electronically Signed by Supervising Therapist [facility] OT Swing/Rehab Daily Note Occupational Therapy OT Rehab/Swing Daily Note Start: 04/13/20 11:04 Freq: Status: Active Protocol: Document 04/25/20 09:35 [facility] (Rec: 04/25/20 09:37 [facility] [id number]) General/Subjective General Referring Provider Jim Marshall OT Visit # am Diagnosis deconditio OT Treatment Diagnosis Muscle weakness (generalized) Additional OT Treatment Diagnosis/ Dx: Physical deconditioning s/ Clarification p hospitalization for COVID-19 pneumonia, bacterial pneumonia, acute respiratory failure with hypoxia Subjective Subjective Pt pleasant, agreeable to participate this morning. Does demonstrate verbal outburst x2 when fatigued. Easily redirected to safe sitting position. No pain complaints. Restrictions Weight Bearing Restrictions/Precauti ons fall risk, bed/chair alarms, supplemental O2 with oximask, recent loss of spouse, CHENEGA, wound on sacrum Objective Vital Signs Vitals at time of rehab 3L supplemental O2 throughout, dropped to 86% with standing tasks, requires 30 seconds seated rest break with cues to cease activity to recover to 90%+. Functional mobility to therapy gym, SPO2 97%. Note: pt has transitioned from oximask to standard nasal canula. Functional Ability ADL's UB sponge bathing setup, min A to tie gown. LB sponge bathing/dressing setup, SBA/ CGA in standing, able to thread BLEs with no difficulty , footwear not addressed this morning. Toilet hygiene mod I after bowel movement. Assist for cream application to bottom. Transfers CGA/min A sit <-> stand from EOB and 3-in-one over commode Therapeutic Exercise Exercise Comment 2# dowel exercises to maximize UB strength/endurance for fww use and transfers: 1 sets x10 each: overhead press, chest press, bicep curls, side-to- sides, forward rows. Assessment/Plan Assessment Assessment Progressing with ADL tasks. Pt unavailable 10 minutes due to toileting. Plan Plan ADLs, bed mobility, increase activity tolerance Time Started 08:50 Time Ended 09:30 Total Treatment Time (Min) (min) 40 Timed Code Treatment Minutes (min) 30 Charge Sheet G-Code Therapies Protocol: REHAB.8MIN Self Care/Home Management 2 Documentation Complete OT Charges/Documentation Finished? Yes Last Visit Is patient being discharged from OT No today? Preliminary Draft Until Electronically Signed by Supervising Therapist [facility] POC Glucometer Teston 2020 Glucose [Mass/Vol] 118 mg/dL High 70-99 [facility] Comment on above: Performed By: #### P OCGLUCOMETER ####[facility] [id number] [place] [address] Glucose [Mass/Vol] 107 mg/dL High 70-99 [facility] Comment on above: Performed By: #### P OCGLUCOMETER ####[facility] [id number] [place] [address] Glucose [Mass/Vol] 203 mg/dL High 70-99 [facility] Comment on above: Performed By: #### P OCGLUCOMETER ####[facility] [id number] [place] [address] Glucose [Mass/Vol] 137 mg/dL High 70-99 [facility] Comment on above: Performed By: #### P OCGLUCOMETER ####[facility] [id number] [place] [id number] Glucose [Mass/Vol] 161 mg/dL High 70-99 [facility] Comment on above: Performed By: #### P OCGLUCOMETER #### [facility] [address] [place] [address] Glucose [Mass/Vol] 91 mg/dL Normal 70-99 [facility] Comment on above: Performed By: #### P OCGLUCOMETER #### [facility] [address] [place] [address] PT Rehab/Swing Daily Noteon 04-25-2020 PT Rehab/Swing Daily Note Physical Therapy PT Rehab/Swing Daily Note. Start: 04/13/20 08:19 Freq: Status: Active Protocol: Document 04/25/20 13:15 HMT (Rec: 04/25/20 13:36 HMT [id number]) General/Subjective General Date of Admission 04/12/20 Referring Provider Jim Marsahll PT Visit # pm Diagnosis deconditio PT Treatment Diagnosis Other malaise Additional PT Treatment Diagnosis/ Medical Dx: physical Clarification deconditioning s/p hospitilization for COVID-19 pneumonia, bacterial pneumonia , acute respiratory failure with hypoxia Additional PT tx dx: difficulty walking (R26.2), other reduced mobility (Z74.09 ), generalized muscle weakness (Z74.09) Subjective Subjective Pt notes that did not get up OOB yesterday, but today just cannot get up and go. Precautions Restrictions/Precauti ons fall risk, bed/chair alarms, supplemental O2 with oximask, recent loss of spouse, CHENEGA, wound on sacrum Objective Mobility Transfers sit-stand from bed sba, 3 times for technique practice from nu-step sba with no postior LOB noted, able to sustain upright posterior 3". Balance standing with ue support sba Gait ww, improved gait speed and on 3L oxygen sats at 91% after gait; 80 feet, 40 feet at sba with close supervision due to fatigue and balance, able to complete turning as well with no LOB Endurance good- to fair+ Therapeutic Exercises Therapeutic Exercise nu-step intervals: 3:00, 5:00, 2:00 on L1 (b) ue and le on 3 L supplemental oxygen: 88%, 92%, 94% and monitored throughout with cueing to slow down breathing Exercise Tolerance Good Assessment and Plan Assessment Assessment Therapiastr tries to encourage patient about progress, but patient still feels like is not doing well. Did well with with-stand transfers although patient felt did not. Patient's family to come tomorrow for family meeting to discuss d/c. Disposition at end of Eval/Treatment Up in chair,Staff in room,All needs met Plan Plan Progress functional standing and mobilities, family meeting tomorrow. Time Started 13:00 Time Ended 13:30 Total Treatment Time (Min) (min) 30 Timed Code Treatment Minutes (min) 30 Charge Sheet G-Code Therapies Protocol: REHAB.8MIN Therapeutic Exercise 1 Gait Training 1 Documentation Complete PT Charges/Documentation Finished? Yes Last Visit Is patient being discharged from PT No today? Preliminary Draft Until Electronically Signed by Supervising Therapist [facility] PT Rehab/Swing Daily Note Physical Therapy PT Rehab/Swing Daily Note. Start: 04/13/20 08:19 Freq: Status: Active Protocol: Document 04/25/20 10:25 MJS (Rec: 04/25/20 10:39 MJS [id number]) General/Subjective General Date of Admission 04/12/20 Referring Provider Jim Marshall PT Visit # AM Diagnosis deconditio PT Treatment Diagnosis Other malaise Additional PT Treatment Diagnosis/ Medical Dx: physical Clarification deconditioning s/p hospitilization for COVID-19 pneumonia, bacterial pneumonia , acute respiratory failure with hypoxia Additional PT tx dx: difficulty walking (R26.2), other reduced mobility (Z74.09 ), generalized muscle weakness (Z74.09) Subjective Subjective Patient reports his legs are bothering him today. Reports they feel weak. Precautions Restrictions/Precauti ons fall risk, bed/chair alarms, supplemental O2 with oximask, recent loss of spouse, CHENEGA, wound on sacrum Objective Mobility Transfers sit-stand CGA/Min A using 3 rocks sit-supine into bed SBA Balance seated: Mod I standing: SBA/CGA with UE support Gait CGA with WW x100' with step through gait pattern. On 3L of O2 at 90-92% Therapeutic Exercises Therapeutic Exercise standing: holding to outside of // bars- heel raises, B hip flex/ext, B hip abd/add, marches, mini squats, glut sets all 2x10 reps each with rest breaks halway through seated: ankle pumps, LAQ, hip abd/add, marches, glut sets all 2x10 reps each Assessment and Plan Assessment Assessment Patient started session with standing ther ex while holding to outside of // bars. Patient then progressed with seated ther ex as listed. Monitored O2 on 3L at90-92% with exercise. Patient then progressed with gait back to room and then trasnfered back to bed for rest break. Disposition at end of Eval/Treatment In bed,Bed Alarm,RN/DIRECTOR OF STRATEGIC SOURCING informed,Call light/phone within reach,Tray table within reach Plan Plan Cont to progress with ther ex and gait as tolerated. Time Started 09:35 Time Ended 10:20 Total Treatment Time (Min) (min) 45 Timed Code Treatment Minutes (min) 45 Charge Sheet G-Code Therapies Protocol: REHAB.8MIN Therapeutic Exercise 2 Gait Training 1 Documentation Complete PT Charges/Documentation Finished? Yes Last Visit Is patient being discharged from PT No today? Preliminary Draft Until Electronically Signed by Supervising Therapist Normal [facility] Basic Metabolic Panelon 03-27 Calcium [Mass/Vol] 8.6 mg/dL Normal 8.6-10.3 [facility] Comment on above: Performed By: #### B MP, MG ####[address] [address] Chloride [Moles/Vol] 103 mmol/L Normal 98-107 [facility] Comment on above: Performed By: #### B MP, MG ####[address] [address] CO2 [Moles/Vol] 31 mmol/L High 23-29 [facility] Comment on above: Performed By: #### B MP, MG ####[address] [address] Creatinine [Mass/Vol] 0.46 mg/dL Low 0.70-1.30 [facility] Comment on above: Performed By: #### B MP, MG ####[address] [address] eGFR For Americans > 60 Normal > 60 [facility] Comment on above: Result Comment: eGFR = Estimated Glomerular Filtration Rate reported as mL/min/1.73 square meters Chronic Kidney Disease: < 60; Kidney failure: < 15 Performed By: #### B MP, MG ####[address] [address] eGFR For Non- Americans > 60 Normal > 60 [facility] Comment on above: Performed By: #### B MP, MG ####[address] [address] Glucose [Mass/Vol] 114 mg/dL High 70-105 [facility] Comment on above: Performed By: #### B MP, MG ####[facility] [address] [place] [address] Osmolality,Calculated 294 Normal 280-300 [facility] Comment on above: Performed By: #### B MP, MG ####[facility] [address] [place] [address] Potassium [Moles/Vol] 3.8 mmol/L Normal 3.5-5.1 [facility] Comment on above: Performed By: #### B MP, MG ####[facility] [address] [place] [address] Sodium [Moles/Vol] 140 mmol/L Normal 136-145 [facility] Comment on above: Performed By: #### B MP, MG ####[facility] [address] [place] [address] Urea nitrogen [Mass/Vol] 21 mg/dL Normal 8-23 [facility] Comment on above: Performed By: #### B MP, MG ####[facility] [address] [place] [address] Urea nitrogen/Creatinine [Mass ratio] 46 mg/mg High 6-26 [facility] Comment on above: Performed By: #### B MP, MG ####[facility] [address] [place] [address] Complete Blood Count w/o Dif brandon 04-24-2020 Platelets (Bld) [#/Vol] 80 K/mcL Low 140-400 [facility] Comment on above: Performed By: #### P OCGLUCOMETER #### [facility] [address] [place] [address] Erythrocyte distribution width (RBC) [Ratio] 17.3 % High 11.5-14.5 [facility] Comment on above: Performed By: #### P OCGLUCOMETER #### [facility] [address] [place] [address] Hematocrit (Bld) [Volume fraction] 31.9 % Low 37.5-50.1 [facility] Comment on above: Performed By: #### P OCGLUCOMETER #### [facility] [address] [place] [address] Hemoglobin (Bld) [Mass/Vol] 10.2 g/dL Low 12.9-16.9 [facility] Comment on above: Performed By: #### P OCGLUCOMETER #### [facility] [address] [place] [address] MCH (RBC) [Entitic mass] 32.0 g/dL Normal 31.6-35.5 [facility] Comment on above: Performed By: #### P OCGLUCOMETER #### [facility] [address] [place] [address] MCH (RBC) [Entitic mass] 31.9 pg Normal 28.0-33.3 [facility] Comment on above: Performed By: #### P OCGLUCOMETER #### [facility] [address] [place] [address] MCV (RBC) [Entitic vol] 99.7 fL Normal 83.0-100.0 [facility] Comment on above: Performed By: #### P OCGLUCOMETER #### [facility] [address] [place] [address] Platelet mean volume (Bld) [Entitic vol] 12.0 fL Normal 9.4-12.4 [facility] Comment on above: Performed By: #### P OCGLUCOMETER #### [facility] [address] [place] [address] RBC (Bld) [#/Vol] 3.20 M/mcL Low 4.19-5.50 [facility] Comment on above: Performed By: #### P OCGLUCOMETER #### [facility] [address] [place] [address] WBC (Bld) [#/Vol] 5.1 K/mcL Normal 4.3-11.1 [facility] Comment on above: Performed By: #### P OCGLUCOMETER #### [facility] [address] [place] [address] D-Dimeron 04-24-2020 D-Dimer 2316 ng/mLFEU High 0-500 [facility] Comment on above: Result Comment: A po sitive D-Dimer result does not predict a specific disease. Result should be interpreted in conjunction with the patient's medical history, clinical presentation, and other findings. Performed By: #### D D ####[facility] [address] [place] [address] Magnesiumon 04-24-2020 Magnesium [Mass/Vol] 1.3 mg/dL Low 1.6-2.6 [facility] Comment on above: Performed By: #### B MP, MG ####[facility] [address] [place] [address] [id number] POC Glucometer Teston 2020 Glucose [Mass/Vol] 134 mg/dL High 70-99 [facility] Comment on above: Performed By: #### P OCGLUCOMETER #### [facility] [address] [place] [address] Glucose [Mass/Vol] 182 mg/dL High 70-99 [facility] Comment on above: Performed By: #### P OCGLUCOMETER ####[facility] [address] [place] [address] Internal Med Progress Noteon 04-23-2020 Internal Med Progress Note [address] [address] Internal Med Progress Note Signed PRELIMINARY DRAFT REPORT UNTIL ELECTRONICALLY SIGNED PATIENT: Mick Cottrell MR#: [id number] : 1940 AGE/SEX: 79 / M ADMITTED: 04/12/20 1837 OUTSIDE LOCN: LOCATION: [address] ATTENDING: Jim Marshall MD cc: ; Date of Encounter: 04/23/20 Time of Encounter: 13:04 - Assessment and plan (1) COVID-19 Current Visit: Yes Status: Acute Assessment and plan: No acute issues. Patient was first diagnosed with Covid on 03/05/20 and again on 03/28/20. Patient is currently no longer on isolation. Patient did receive, convalescent plasma and remdesivir during his hospitalization in February. Patient has finished his course of antibiotics for secondary bacterial pneumonia. Decadron completed. Patient's inflammatory markers continue to trend down. We will continue with therapy (2) Diabetes mellitus Current Visit: Yes Status: Chronic Assessment and plan: Hemoglobin A-1 C is 7.6 from one . Continue fingerstick blood sugar, insulin sliding scale and metformin. Qualifiers: Diabetes mellitus type: type 2 Diabetes mellitus ranch hand insulin use: without ranch hand use Diabetes mellitus complication status: without complication Qualified Code(s): E11.9 - Type 2 diabetes mellitus without complications (3) COPD (chronic obstructive pulmonary disease) Current Visit: Yes Status: Chronic Assessment and plan: Continue inhaled meds and oxygen per nasal cannula. Continue cortical steroids and bronchodilators. Qualifiers: COPD type: unspecified COPD Qualified Code(s): J44.9 - Chronic obstructive pulmonary disease, unspecified (4) Acute respiratory failure with hypoxia Current Visit: Yes Status: Acute Assessment and plan: Maintaining oxygen saturation greater than 90% at 2-3 L per nasal cannula. Slowly improving. Continue inhaled medication. Decadron completed. Continue therapy. (5) HTN (hypertension) Current Visit: Yes Status: Chronic Assessment and plan: Controlled with current medication. Monitor blood pressure. Qualifiers: Hypertension type: essential hypertension Qualified Code(s): I10 - Essential (primary) hypertension (6) BPH (benign prostatic hyperplasia) Current Visit: Yes Status: Chronic Assessment and plan: Stable with proscar Qualifiers: Lower urinary tract symptom presence: symptoms absent Qualified Code(s): N40.0 - Benign p rostatic hyperplasia without lower urinary tract symptoms (7) Systolic heart failure Current Visit: Yes Status: Chronic Assessment and plan: Stable. Not exacerbation. Monitor labs. Continue Lasix, aspirin, Lipitor metoprolol. Qualifiers: Heart failure chronicity: chronic Qualified Code(s): I50.22 - Chronic systolic (congestive) heart failure (8) GERD (gastroesophageal reflux disease) Current Visit: Yes Status: Chronic Assessment and plan: Stable with PPI. Qualifiers: Esophagitis presence: with esophagitis Esophagitis bleeding: without hemorrhage Qualified Code(s): K21.00 - Gastro-esophageal reflux disease with esophagitis, without bleeding (9) Paroxysmal atrial fibrillation Current Visit: Yes Status: Chronic Assessment and plan: Rate and rhythm stable. Continue metoprolol and xarelto. - Subjective Interval history: Mr. Cottrell is a 79 year old male with known past medical history of HFpEF, COPD, CVA, A-Fib, HTN, DM2, BPH who was admitted at [facility] on 03/05 with cough, SOB, and malaise for 5 days. Hospital course complicated by development of new A-Fib RVR as well as acute metabolic encephalopathy. Patient was placed on supplemental O2 and required up to HHFNC at 40L/60%. Patient was given high dose dexameth asone, transfusion of convalescent plasma, and course of remdesivir, with eventual improvement in hi s symptoms and oxygenation. He was transferred to our [facility] during that hospitalization as lateral tr ansfer to continue his further acute medical care and eventually transitioning him to swing bed for his physical deconditioning. When he was in rehab facility one day he became more hypoxic with worse annalisa respiratory failure. He got readmitted at [facility] on 03/28/2020 with acute hypoxic resp failure due to multi focal pneumonia. He happened to have hemoptysis too. He was evaluated by Technical Planner who held his anti coag Eliquis and continued IV Decadran and empirical abx Levaquin. His hemoptysis res olved and his oxygen requirement came down to 4-6 lit now. Due to bed crunch for Covid positive aggie ents at [facility] he was sent to our facility [facility] as lateral trasnfer to continue further medical care a nd possible rehab when he becomes more medically stable. We continued his Decadron and other support pollo measures. His symptoms imroved and able to participate in rehab. He was transferred to rehab [facility]. sitting in chair, alert and oriented X4. denies fever, chills, NVD or chest pain. states he has sob with exertion. Maintaining oxygen saturation at 2 to 3 L per nasal cannula. This is slowly improving. Patient continues to do good relaxation techniques for anxiety. Participating well with therapy. Ambulating with Walker. - Constitutional Vitals: Temp Pulse Resp BP Pulse Ox 98.2 F 74 16 151/57 93 04/23/20 09:00 04/23/20 09:00 04/23/20 09:00 04/23/20 09:00 04/23/20 10:46 General appearance: Present: cooperative, A O X 3, pleasant, no acute distress, answers questions appropriately - Head Head exam: Present: atraumatic, normocephalic - Eye Eye exam: Present: PERRL, conjuntiva pink, sclera anicteric Pupils: Present: PERRL - Neck Neck exam general surgery: Present: supple, trachea midline. Absent: lymphadenopathy - Respiratory Respiratory exam: Present: decreased breath sounds, CTAB. Absent: accessory muscle use, rales, rhonchi, wheezes - Cardiovascular Cardiovascular exam: Present: irregular rhythm, +S1, +S2. Absent: diastolic murmur, gallop, rubs, systolic murmur - GI/Abdominal GI/Abdominal exam: Present: normal bowel sounds, soft, no peritoneal signs. Absent: distended, tenderness - Extremities Exam Extremities exam: Present: warm, radial pulses palpable and symmetrical. Absent: calf tenderness, cyanotic, pedal edema - Neurological Exam Neurological exam: Present: CN II-XII intact, oriented X3, no focal deficits. Absent: pronater drift, facial droop, speech deficit - Skin Skin exam: Present: dry, intact Internal Medicine: Result - Labs CBC Chem 7: 04/21/20 05:18 04/21/20 05:18 - ABG Interpretation ABG results: PT/INR, D-dimer D-Dimer 1958 ng/mLFEU (0-500) H 04/21/20 05:18 Consult Discharge Plan - Plan Referrals: Jim Marshall MD [Primary Care Provider] - Documented By: Capri Iqbal APN Signed By: 04/23/20 1307 DD/ 1304 Initialized By: [id number] [facility] OT Swing/Rehab Daily Noteon 04-23-2020 OT Swing/Rehab Daily Note Occupational Therapy OT Rehab/Swing Daily Note Start: 04/13/20 11:04 Freq: Status: Active Protocol: Document 04/23/20 12:37 CJB (Rec: 04/23/20 12:45 CJB [id number]) General/Subjective General Referring Provider Jim Marshall OT Visit # am Diagnosis deconditio OT Treatment Diagnosis Muscle weakness (generalized) Additional OT Treatment Diagnosis/ Dx: Physical deconditioning s/ Clarification p hospitilization for COVID-19 pneumonia, bacterial pneumonia, acute respiratory failure with hypoxia Subjective Subjective Pt in bed, pleasant and agreeable to OT intervention. Restrictions Weight Bearing Restrictions/Precauti ons fall risk, bed/chair alarms, supplemental O2 with oximask, recent loss of spouse, CHENEGA, wound on sacrum Objective Functional Ability ADL's Pt donned Lb clothing with min assistance, min assistance with donning jacket to reach around rear. Transfers Pt. required CGA with supine> sit EOB. Pt required CGA with functional mobility and transfer bed>bedside chair. Therapeutic Exercise General Exercise Upper Extremity Taffy Pulls with Resistance, Punch Outs with Resistance,Gabriel Punches with Resistance,Pull Backs with Resistance,Elbow Curls with Resistance Regional Exercise Completed Bilateral Upper Extremity # Sets 1 Repetitions 15 Equipment Used Resistance Band Resistance Band Utilized (Color) red Exercise Tolerance Fair Exercise Comment Proper breathing education provided with completion of BUE's. Assessment/Plan Assessment Assessment Pt. completed functional transfers with walker use at min assistance. Pt. required min 's and education regarding proper breathing technique with completion of UB strengthening exercises with red theraband to increase BUE strength necessary to perform self care skills and related transfers. Plan Plan ADLs, bed mobility, increase activity tolerance Time Started 08:30 Time Ended 09:00 Total Treatment Time (Min) (min) 30 Timed Code Treatment Minutes (min) 30 Charge Sheet G-Code Therapies Protocol: REHAB.8MIN Therapeutic Exercise 1 Self Care/Home Management 1 Documentation Complete OT Charges/Documentation Finished? Yes Last Visit Is patient being discharged from OT No today? Preliminary Draft Until Electronically Signed by Supervising Therapist [facility] POC Glucometer Teston 2020 Glucose [Mass/Vol] 135 mg/dL High 70-99 [facility] Comment on above: Performed By: #### P OCGLUCOMETER #### [facility] [address] [place] [address] Glucose [Mass/Vol] 31 mg/dL Critically low 70-99 [facility] Comment on above: Result Comment: Will Repeat Test Performed By: #### P OCGLUCOMETER #### [facility] [address] [place] [address] Glucose [Mass/Vol] 98 mg/dL Normal 70-99 [facility] Comment on above: Performed By: #### P OCGLUCOMETER #### [facility] [address] [place] [address] Glucose [Mass/Vol] 157 mg/dL High 70-99 [facility] Comment on above: Performed By: #### P OCGLUCOMETER ####[facility] [address] [place] [address] Glucose [Mass/Vol] 118 mg/dL High 70-99 [facility] Comment on above: Performed By: #### P OCGLUCOMETER ####[facility] [address] [place] [address] PT Rehab/Swing Daily Noteon 04-23-2020 PT Rehab/Swing Daily Note Physical Therapy PT Rehab/Swing Daily Note. Start: 04/13/20 08:19 Freq: Status: Active Protocol: Document 04/23/20 16:35 DMB (Rec: 04/23/20 16:47 DMB [id number]) General/Subjective General Date of Admission 04/12/20 Referring Provider Jim Marshall PT Visit # AM Diagnosis deconditio PT Treatment Diagnosis Other malaise Additional PT Treatment Diagnosis/ Medical Dx: physical Clarification deconditioning s/p hospitilization for COVID-19 pneumonia, bacterial pneumonia , acute respiratory failure with hypoxia Additional PT tx dx: difficulty walking (R26.2), other reduced mobility (Z74.09 ), generalized muscle weakness (Z74.09) Subjective Subjective States that he does not feel that he is getting stronger and is anxious about oxygen need. Objective Mobility Transfers Sit to stand from chair with minimal assist to transition to stand. Patient does scoot to edge of chair and require three count to perform transfer. Balance Static standing with walker CGA. Gait Ambulates with wheeled walker 50 feet with CGA with no oxygen supplement per Respiratory Therapist and Nurse to monitor Saturation during activity. Demonstrate quick step pattern with verbal cues correct breathing technique. Endurance Fair Therapeutic Exercises Therapeutic Exercise Standing at walker: Bilateral hip flexion x 10 Marching x 10 Bilateral hip abduction x 10 Sitting LE strengthening prgoram: SAQ x 10 Ankle DFL/PFL x 10 Assessment and Plan Assessment Assessment Patient on .5L 02 upon arrival in room per Nurse, working on weaing patient off the oxygen . During sitting exercises SP02% remained at 90% or above . When walking SP02% decreased to 83% and placed back on 3L. Patient continues to require rest periods after every exercise. Disposition at end of Eval/Treatment Up in chair,Staff in room,All needs met Plan Plan Progress gait and hip/le stregnthening for functional transfer improvements. Time Started 10:15 Time Ended 10:45 Total Treatment Time (Min) (min) 30 Timed Code Treatment Minutes (min) 30 Charge Sheet G-Code Therapies Protocol: REHAB.8MIN Therapeutic Exercise 2 Documentation Complete PT Charges/Documentation Finished? Yes Preliminary Draft Until Electronically Signed by Supervising Therapist [facility] OT Swing/Rehab Daily Noteon 04-22-2020 OT Swing/Rehab Daily Note Occupational Therapy OT Rehab/Swing Daily Note Start: 04/13/20 11:04 Freq: Status: Active Protocol: Document 04/22/20 09:47 [facility] (Rec: 04/22/20 09:55 [facility] [id number]) General/Subjective General Referring Provider Jim Marshall OT Visit # am Diagnosis deconditio OT Treatment Diagnosis Muscle weakness (generalized) Additional OT Treatment Diagnosis/ Dx: Physical deconditioning s/ Clarification p hospitilization for COVID-19 pneumonia, bacterial pneumonia, acute respiratory failure with hypoxia Subjective Subjective Pt pleasant, agreeable to participate this morning. Reporting pain in bottom. Discussed with nursing appropriate care prior to dressing tasks. Restrictions Weight Bearing Restrictions/Precauti ons fall risk, bed/chair alarms, supplemental O2 with oximask, recent loss of spouse, CHENEGA, wound on sacrum Objective Vital Signs Vitals at time of rehab 2L supplemental O2 via oximask throughout, SPO2 91%+ throughout Functional Ability ADL's Pt unaware of bottom soiled of stool, mod A for thoroughness of hygiene. UB dressing setup for zip up jacket. LB dressing setup/CGA in standing for clothing management. Standing/Activity Tolerance Tolerated functional mobility room -> therapy gym with CGA and use of fww Bed Mobility Supine to EOB: SBA Transfers Min A sit <-> stand from EOB Therapeutic Exercise Exercise Comment 2# dowel exercises to maximize UB strength/endurance for fww use and transfers: 2 sets x10 each: overhead press, chest press, bicep curls, side-to- sides, forward/backward rows. Assessment/Plan Assessment Assessment Progressing with ADL tasks and activity tolerance. Progression Toward Goals Weekly Progress Note: LTGs: 1. Progressing - UB setup assist with cues for managing supplemental oxygen, LB CGA in standing for dressing. Significant rest breaks required throughout. Assist for bowel hygiene required. 2. Current score 21, same as last week 3. Progressing - currently tolerating red theraband, 2-3# dowel david 4. Progressing - significant rest breaks required, tolerating 30 minute ADL sessions. 5. Progressing - currently standby assistance for supine -> EOB with HOB elevated and use of bed rail, moderate assistance for EOB -> supine. Overall, pt is making good progress toward goals in occupational therapy thus far. Pt is increasing participation in ADL tasks. Continues to require setup of all ADL supplies, fatigues quickly with transfers and mobility. Recommending 24 hour care. Overall mod/max cues for oxygen cord management, dismissive of need for supplemental oxygen. Plan Plan ADLs, bed mobility, increase activity tolerance Time Started 08:45 Time Ended 09:30 Total Treatment Time (Min) (min) 45 Charge Sheet G-Code Therapies Protocol: REHAB.8MIN Therapeutic Exercise 2 Self Care/Home Management 1 Documentation Complete OT Charges/Documentation Finished? Yes Last Visit Is patient being discharged from OT No today? Preliminary Draft Until Electronically Signed by Supervising Therapist [facility] POC Glucometer Teston 2020 Glucose [Mass/Vol] 93 mg/dL Normal 70-99 [facility] Comment on above: Performed By: #### P OCGLUCOMETER #### [facility] [address] [place] [address]607 Glucose [Mass/Vol] 151 mg/dL High 70-99 [facility] Comment on above: Performed By: #### P OCGLUCOMETER ####[facility] [address] [place] [address]909 Glucose [Mass/Vol] 184 mg/dL High 70-99 [facility] Comment on above: Performed By: #### P OCGLUCOMETER ####[facility] [address] [place] [address] 52383 Glucose [Mass/Vol] 116 mg/dL High 70-99 [facility] Comment on above: Performed By: #### P OCGLUCOMETER #### [facility] [address] [place] [address] 24001 Glucose [Mass/Vol] 155 mg/dL High 70-99 [facility] Comment on above: Performed By: #### P OCGLUCOMETER ####[facility] [address] [place] [address] PT Rehab/Swing Daily Noteon 04-22-2020 PT Rehab/Swing Daily Note Physical Therapy PT Rehab/Swing Daily Note. Start: 04/13/20 08:19 Freq: Status: Active Protocol: Document 04/22/20 11:33 MJS (Rec: 04/22/20 11:46 MJS [id number]) General/Subjective General Date of Admission 04/12/20 Referring Provider Jim Marshall PT Visit # AM Diagnosis deconditio PT Treatment Diagnosis Other malaise Additional PT Treatment Diagnosis/ Medical Dx: physical Clarification deconditioning s/p hospitilization for COVID-19 pneumonia, bacterial pneumonia , acute respiratory failure with hypoxia Additional PT tx dx: difficulty walking (R26.2), other reduced mobility (Z74.09 ), generalized muscle weakness (Z74.09) Subjective Subjective Patient reports he had a bad day yesterday. Reports he is doing better today, but still c/o being tired. Precautions Restrictions/Precauti ons fall risk, bed/chair alarms, supplemental O2 with oximask, recent loss of spouse, CHENEGA, wound on sacrum Objective Mobility Transfers sit-stand Min A with cues for hand placement toilet transfer CGA and required assist for clothing transfer from chair to nu-step using WW x5 steps CGA Balance seated: Mod I standing: CGA with UE balance support Gait CGA with WW x25', 100' with step through gait pattern and cues for slow controlled breathing. Monitored O2 on 2L at 88-92% with gait Therapeutic Exercises Therapeutic Exercise nu-step x15 min L0-1 with B UE /LE and 2 rest breaks required at 5 and 10 min jaime standing: holding to outside of // bars- heel raises, B hip flex/ext, B hip abd/add, marches, mini squats, glut sets al x10 reps each with rest breaks required. Monitored O2 on 2L at 88-91% with exercise Assessment and Plan Assessment Assessment Patient sitting in chair in rehab room upon arrival of SCIENTIFIC SOFTWARE DEVELOPER . Started session with transfer from chair to nu-step using WW. Patient then progressed with nu-step as listed with B UE/LE with 2 rest breaks required. Patient then progressed with standing ther ex while holding to outside of // bars with seated rest breaks required and monitoring O2 as listed. Patient then progressed with gait back to room using WW while monitoring O2 on 2L. Patient then transfered to toilet requiring assist with clothing. Left patient in bathroom with RN present. Progression Toward Goals weekly progress note: Patient conts with PT 2xs day. Patient conts to c/o fatigue and that he is frustrated about using O2. Patient progressing with supine-sit- supine transfers with SBA. Progressing with sit-stand transfers with CGA/Mod A pending surface height and fatigue level. Patient progressing with gait using WW x100' with constant cues for slow controlled breathing and on 2-3L of O2. Progressing with seated/standing ther ex 1 -2 x10 reps each with rest breaks required due to labored breathing. Conts to progress with encouragement due to patient beind easily frustrated and anxious at times when working in therapy. Cont to progress as tolerated. Disposition at end of Eval/Treatment Bathroom/Bedside Commode,Staff in room,Call light/phone within reach Plan Plan Cont to progress with ther ex and gait as tolerated. Time Started 09:30 Time Ended 10:15 Total Treatment Time (Min) (min) 45 Timed Code Treatment Minutes (min) 45 Charge Sheet G-Code Therapies Protocol: REHAB.8MIN Therapeutic Exercise 2 Gait Training 1 Documentation Complete PT Charges/Documentation Finished? Yes Last Visit Is patient being discharged from PT No today? Preliminary Draft Until Electronically Signed by Supervising Therapist Normal [facility] Rehab Psychology Progress No [email or web address] 04-22-2020 Cholesterol [Mass/Vol] [facility] [address] [place] [address] Rehab Psychology Progress Note Signed PRELIMINARY DRAFT REPORT UNTIL ELECTRONICALLY SIGNED PATIENT: Mick Cottrell MR#: [id number] : 1940 AGE/SEX: 79 / M ADMITTED: 04/12/20 1837 OUTSIDE LOCN: LOCATION: [address] ATTENDING: Jim Marshall MD cc: ; Date of Encounter: 04/22/20 Time of Encounter: 02:00 (Clinic) Subjective - Patient Report Patient Report: Staff was concerned because pt stated "shoot me" when told he was going to ECF and leaving on O2. We discussed his comment and he noted he did have a gun but would never shoot himself because "no guts to do that". He did say his oldest son took his gun. When further discussing it became more clear that pt is in grieving process and angry/ vengful of 's recent passing. Discussed how grief is like waves and feelings maybe extreme from depression to anger . He is remorseful that he has lost his temper with staff. He became tearful. Worried about medical bills and how 's was paid for. - Symptoms Symptoms: tearful, reactive, angry. Objective - WHODAS Functional Impairment Concentration, Problem-solving, Communication: Mild Social Functioning: Moderate - Comments Functional Status Comments: behavior is variable and reactive - Mental Status Mental Status Changes: OX3 Assessment and Plan - Diagnosis (1) Adjustment disorder with mixed anxiety and depressed mood - Response to Treatment Response to Treatment: Worse - Prognosis Prognosis: Good - Treatment Plan Treatment Plan Recommendations: Continue Current Plan/Goals Changes in Treatment Plan Goals: Understanding his grief and educating him Treatment Frequency: weekly Procedures - Intervention Interventions: Cognitive/Behavioral Therapy - Modality Modality: Psychotherapy 30 minutes - Participants Therapy Participant: Patient - Session Time Session Start Time: 02:00 Session Stop Time: 02:30 Documented By: Cynthia Johnston PhD Signed By: 04/22/20 1516 DD/ 1508 Initialized By: [id number] Normal [facility] Basic Metabolic Panelon 03-26 Calcium [Mass/Vol] 8.7 mg/dL Normal 8.6-10.3 [facility] Comment on above: Performed By: #### P OCGLUCOMETER #### [facility] [address] [place] [address]6630 Chloride [Moles/Vol] 100 mmol/L Normal 98-107 [facility] Comment on above: Performed By: #### P OCGLUCOMETER #### [facility] [address] [place] [address] 75276 CO2 [Moles/Vol] 32 mmol/L High 23-29 [facility] Comment on above: Performed By: #### P OCGLUCOMETER #### [facility] [address] [place] [address] 22575 Creatinine [Mass/Vol] 0.57 mg/dL Low 0.70-1.30 [facility] Comment on above: Performed By: #### P OCGLUCOMETER #### [facility] [address] [place] [address] 99224 eGFR For Americans > 60 Normal > 60 [facility] Comment on above: Result Comment: eGFR = Estimated Glomerular Filtration Rate reported as mL/min/1.73 square meters Chronic Kidney Disease: < 60; Kidney failure: < 15 Performed By: #### P OCGLUCOMETER #### [facility] [address] [place] [address] 82619 eGFR For Non- Americans > 60 Normal > 60 [facility] Comment on above: Performed By: #### P OCGLUCOMETER #### [facility] [address] [place] [address] 64472 Glucose [Mass/Vol] 99 mg/dL Normal 70-105 [facility] Comment on above: Performed By: #### P OCGLUCOMETER #### [facility] [address] [place] [address] 16947 Osmolality,Calculated 287 Normal 280-300 [facility] Comment on above: Performed By: #### P OCGLUCOMETER #### [facility] [address] [place] [address] 48727 Potassium [Moles/Vol] 3.7 mmol/L Normal 3.5-5.1 [facility] Comment on above: Performed By: #### P OCGLUCOMETER #### [facility] [address] [place] [address] 29329 Sodium [Moles/Vol] 137 mmol/L Normal 136-145 [facility] Comment on above: Performed By: #### P OCGLUCOMETER #### [facility] [address] [place] [address] 70268 Urea nitrogen [Mass/Vol] 21 mg/dL Normal 8-23 [facility] Comment on above: Performed By: #### P OCGLUCOMETER #### [facility] [address] [place] [address] 79437 Urea nitrogen/Creatinine [Mass ratio] 37 mg/mg High 6-26 [facility] Comment on above: Performed By: #### P OCGLUCOMETER #### [facility] [address] [place] [address] 97591 Complete Blood Count w/o Dif brandon 04-21-2020 Platelets (Bld) [#/Vol] 73 K/mcL Low 140-400 [facility] Comment on above: Performed By: #### C BCND ####[address] [address] Erythrocyte distribution width (RBC) [Ratio] 17.9 % High 11.5-14.5 [facility] Comment on above: Performed By: #### C BCND ####[address] [address] Hematocrit (Bld) [Volume fraction] 33.7 % Low 37.5-50.1 [facility] Comment on above: Performed By: #### C BCND ####[address] [address] Hemoglobin (Bld) [Mass/Vol] 10.7 g/dL Low 12.9-16.9 [facility] Comment on above: Performed By: #### C BCND ####[address] [address] MCH (RBC) [Entitic mass] 31.8 pg Normal 28.0-33.3 [facility] Comment on above: Performed By: #### C BCND ####[address] [address] MCH (RBC) [Entitic mass] 31.8 g/dL Normal 31.6-35.5 [facility] Comment on above: Performed By: #### C BCND ####[address] [address] MCV (RBC) [Entitic vol] 100.3 fL High 83.0-100.0 [facility] Comment on above: Performed By: #### C BCND ####[address] [address] Platelet mean volume (Bld) [Entitic vol] 12.4 fL Normal 9.4-12.4 [facility] Comment on above: Performed By: #### C BCND ####[facility] [address] [place] [address] [phone] RBC (Bld) [#/Vol] 3.36 M/mcL Low 4.19-5.50 [facility] Comment on above: Performed By: #### C BCND ####[facility] [address] [place] [address] [phone] WBC (Bld) [#/Vol] 6.9 K/mcL Normal 4.3-11.1 [facility] Comment on above: Performed By: #### C BCND ####[address] [address] D-Dimeron 04-21-2020 D-Dimer 1958 ng/mLFEU High 0-500 [facility] Comment on above: Result Comment: A po sitive D-Dimer result does not predict a specific disease. Result should be interpreted in conjunction with the patient's medical history, clinical presentation, and other findings. Performed By: #### D D ####[facility] [address] [place] [address] Internal Med Progress Noteon 04-21-2020 Internal Med Progress Note [facility] [address] [place] [address] Internal Med Progress Note Signed PRELIMINARY DRAFT REPORT UNTIL ELECTRONICALLY SIGNED PATIENT: Mick Cottrell MR#: [id number] : 1940 AGE/SEX: 79 / M ADMITTED: 04/12/20 1837 OUTSIDE LOCN: LOCATION: [address] ATTENDING: Jim Marshall MD cc: ; Date of Encounter: 04/21/20 Time of Encounter: 16:37 - Assessment and plan (1) COVID-19 Current Visit: Yes Status: Acute Assessment and plan: No acute issues. Patient was first diagnosed with Covid on 03/05/20 and again on 03/28/20. Patient is currently no longer on isolation. Patient did receive, convalescent plasma and remdesivir during his hospitalization in February. Patient has finished his course of antibiotics for secondary bacterial pneumonia. Tapering Decadron.. Patient's inflammatory markers continue to trend down. We will continue with therapy (2) Diabetes mellitus Current Visit: Yes Status: Chronic Assessment and plan: Hemoglobin A-1 C is 7.6 from one . Continue fingerstick blood sugar, insulin sliding scale and metformin. Qualifiers: Diabetes mellitus type: type 2 Diabetes mellitus ranch hand insulin use: without snf use Diabetes mellitus complication status: without complication Qualified Code(s): E11.9 - Type 2 diabetes mellitus without complications (3) COPD (chronic obstructive pulmonary disease) Current Visit: Yes Status: Chronic Assessment and plan: Continue inhaled meds and oxygen per nasal cannula. Continue cortical steroids and bronchodilators. Qualifiers: COPD type: unspecified COPD Qualified Code(s): J44.9 - Chronic obstructive pulmonary disease, unspecified (4) Acute respiratory failure with hypoxia Current Visit: Yes Status: Acute Assessment and plan: Maintaining oxygen saturation greater than 90% at 3 L per nasal cannula. Slowly improving. Continue inhaled medication. Tapering Decadron. Continue therapy. (5) HTN (hypertension) Current Visit: Yes Status: Chronic Assessment and plan: Controlled with current medication. Monitor blood pressure. Qualifiers: Hypertension type: essential hypertension Qualified Code(s): I10 - Essential (primary) hypertension (6) BPH (benign prostatic hyperplasia) Current Visit: Yes Status: Chronic Assessment and plan: Stable with proscar Qualifiers: Lower urinary tract symptom presence: symptoms absent Qualified Code(s): N40.0 - Benign prost atic hyperplasia without lower urinary tract symptoms (7) Systolic heart failure Current Visit: Yes Status: Chronic Assessment and plan: Stable. Not exacerbation. Monitor labs. Continue Lasix, aspirin, Lipitor metoprolol. Qualifiers: Heart failure chronicity: chronic Qualified Code(s): I50.22 - Chronic systolic (congestive) heart failure (8) GERD (gastroesophageal reflux disease) Current Visit: Yes Status: Chronic Assessment and plan: Stable with PPI. Qualifiers: Esophagitis presence: with esophagitis Esophagitis bleeding: without hemorrhage Qualified Code(s): K21.00 - Gastro-esophageal reflux disease with esophagitis, without bleeding (9) Paroxysmal atrial fibrillation Current Visit: Yes Status: Chronic Assessment and plan: Rate and rhythm stable. Continue metoprolol and xarelto. - Time Spent With Patient less than 15 minutes - Subjective Interval history: Mr. Cottrell is a 79 year old male with known past medical history of HFpEF, COPD, CVA, A-Fib, HTN, DM2, BPH who was admitted at [facility] on 03/05 with cough, SOB, and malaise for 5 days. Hospital course complicated by development of new A-Fib RVR as well as acute metabolic encephalopathy. Patient was placed on supplemental O2 and required up to HHFNC at 40L/60%. Patient was given high dose dexamethasone, transfusion of convalescent plasma, and course of remdesivir, with eventual improvement in his symptoms and oxygenation. He was transferred to our [facility] during that hospitalization as lateral transfer to continue his further acute medical care and eventually transitioning him to swing bed for his physical deconditioning. When he was in rehab facility one day he became more hypoxic with worsening respiratory failure. He got readmitted at [facility] on 03/28/2020 with acute hypoxic resp failure due to multi focal pneumonia. He happened to have hemoptysis too. He was evaluated by Technical Planner who held his anti coag Eliquis and continued IV Decadran and empirical abx Levaquin. His hemoptysis resolved and his oxygen requirement came down to 4-6 lit now. Due to bed crunch for Covid positive patients at [facility] he was sent to our facility [facility] as lateral trasnfer to continue further medical care and possible rehab when he becomes more medically stable. We continued his Decadron and other supportive measures. His symptoms imroved and able to participate in rehab. He was transferred to rehab facility. sitting pu in chair, alert and oriented X4. denies fever, chills, NVD or chest pain. states he has sob with exertion. states he has been drinking ensure with meals. participating with therapy. Ambulated from room to therapy gymwith walker with therapy. O2 sat dropped to 90% with exertion. maintaining O2 at 3 liters per NC. Patient did have one episode of therapy small amount of bloody sputum that he coughed up. Hemoglobin stable at 10.7. - Constitutional Vitals: Temp Pulse Resp BP Pulse Ox 98.0 F 77 22 118/72 94 04/21/20 06:00 04/21/20 06:00 04/21/20 10:27 04/21/20 06:00 04/21/20 10:37 General appearance: Present: cooperative, A O X 3, pleasant, no acute distress, answers questions appropriately - Head Head exam: Present: atraumatic, normocephalic - Eye Eye exam: Present: PERRL, conjuntiva pink, sclera anicteric Pupils: Present: PERRL - Neck Neck exam general surgery: Present: supple, trachea midline. Absent: lymphadenopathy - Respiratory Respiratory exam: Present: decreased breath sounds. Absent: accessory muscle use, rales, rhonchi, wheezes Additional comments: RUL rhonchi - Cardiovascular Cardiovascular exam: Present: RRR, +S1, +S2. Absent: diastolic murmur, gallop, rubs, systolic murmur - GI/Abdominal GI/Abdominal exam: Present: normal bowel sounds, soft, no peritoneal signs. Absent: distended, tenderness - Extremities Exam Extremities exam: Present: warm, radial pulses palpable and symmetrical. Absent: calf tenderness, cyanotic, pedal edema - Neurological Exam Neurological exam: Present: CN II-XII intact, oriented X3, no focal deficits. Absent: pronater drift, facial droop, speech deficit - Skin Skin exam: Present: dry, intact Internal Medicine: Result - Labs CBC Chem 7: 04/21/20 05:18 04/21/20 05:18 Labs: Short CBC 04/21/20 Range/Units 05:18 WBC 6.9 (4.3-11.1) K/mcL Hgb 10.7 L (12.9-16.9) g/dL Hct 33.7 L (37.5-50.1) % Plt Count 73 L (140-400) K/mcL BMP 04/21/20 05:18 Sodium 137 Potassium 3.7 Chloride 100 Carbon Dioxide 32 H BUN 21 Creatinine 0.57 L Glucose 99 Calcium 8.7 - ABG Interpretation ABG results: PT/INR, D-dimer D-Dimer 1958 ng/mLFEU (0-500) H 04/21/20 05:18 Consult Discharge Plan - Plan Referrals: Jim Marshall MD [Primary Care Provider] - Documented By: Capri IqbalN Signed By: 04/21/20 1639 DD/ 1636 Initialized By: [id number] Normal [facility] Magnesiumon 04-21-2020 Magnesium [Mass/Vol] 1.4 mg/dL Low 1.6-2.6 [facility] Comment on above: Performed By: #### P OCGLUCOMETER #### [facility] [address] [place] [address] OT Swing/Rehab Daily Noteon 04-21-2020 OT Swing/Rehab Daily Note Occupational Therapy OT Rehab/Swing Daily Note Start: 04/13/20 11:04 Freq: Status: Active Protocol: Document 04/21/20 13:16 ECR (Rec: 04/21/20 13:29 ECR [id number]) General/Subjective General Referring Provider Jim Marshall OT Visit # PM Diagnosis deconditio OT Treatment Diagnosis Muscle weakness (generalized) Additional OT Treatment Diagnosis/ Dx: Physical deconditioning s/ Clarification p hospitilization for COVID-19 pneumonia, bacterial pneumonia, acute respiratory failure with hypoxia Subjective Subjective Patient supine in bed upon arrival. Patient is agreeable to skilled OT services. Restrictions Weight Bearing Restrictions/Precauti ons fall risk, bed/chair alarms, supplemental O2 with oximask, recent loss of spouse, CHENEGA, wound on sacrum Objective Vital Signs Vitals at time of rehab 2L of supplemental O2 via facemask. Supine to EOB: O2 dropped to 85% with 4 minutes to reach 88%. Increase to 3L of O2 to maintain O2 at 93%. Decreased back to 2L of O2 with ability to continue to maintain O2 >90% ; able to maintain O2 >90% with exercise Functional Ability ADL's Donning Pants at EOB: Set-up to thread over feet, SBA/CGA in standing to get over hips. Bed Mobility Supine to EOB: SBA Transfers CGA/Min A for sit to stand transfers. Patient with max cues to manage O2 line Functional mobility from room to therapy gym with FWW and transfer belt: CGA . Paitent with assistance with O2 line. UE Function Patient completed BUE exercises focusing on increase in strength/endurance to assist with improvement with functional transfers from various surfaces and ADLs. Patient with good tolerance to exercises. Therapeutic Exercise Regional Exercise Completed Bilateral Upper Extremity # Sets 2 Repetitions 15 Equipment Used Free Weights Free Weights (lbs) 2 Exercise Tolerance Good Limitations Muscle Weakness Exercise Comment 2# dumbbell BUE - Punch outs, bicep curls, shoulder press, side to side- 15 reps x2 Assessment/Plan Assessment Assessment Patient making progress towards UE strength/endurance. Plan Plan ADLs, bed mobility, increase activity tolerance Time Started 13:00 Time Ended 13:30 Total Treatment Time (Min) (min) 30 Timed Code Treatment Minutes (min) 30 Charge Sheet G-Code Therapies Protocol: REHAB.8MIN Therapeutic Exercise 2 Documentation Complete OT Charges/Documentation Finished? Yes Last Visit Is patient being discharged from OT No today? Preliminary Draft Until Electronically Signed by Supervising Therapist [facility] OT Swing/Rehab Daily Note Occupational Therapy OT Rehab/Swing Daily Note Start: 04/13/20 11:04 Freq: Status: Active Protocol: Document 04/21/20 12:17 ECR (Rec: 04/21/20 12:25 ECR [id number]) General/Subjective General Referring Provider Jim Marshall OT Visit # AM Diagnosis deconditio OT Treatment Diagnosis Muscle weakness (generalized) Additional OT Treatment Diagnosis/ Dx: Physical deconditioning s/ Clarification p hospitilization for COVID-19 pneumonia, bacterial pneumonia, acute respiratory failure with hypoxia Subjective Subjective Patient supine in bed upon arrival. Patient is pleasant and agreeable to sponge bathing task on this morning. Restrictions Weight Bearing Restrictions/Precauti ons fall risk, bed/chair alarms, supplemental O2 with oximask, recent loss of spouse, CHENEGA, wound on sacrum Objective Vital Signs Vitals at time of rehab Patient on 2L of supplemental O2 via facemask. Patient O2 at start 91%. Patient O2 dropped down to 80% with completion of grooming task with 1-2 minute return to 90%. Functional Ability ADL's Patient completed sponge bathing task at EOB with set- up of supplies. UB Bathing: SBA; LB Bathing: CGA for standing portions at FWW. Feet not addressed at this time. UB Dressing: Set-up, assist with untie and tie gown . LB Dressing: CGA for safety for standing portions to pull pants up over hips. Patient educated on slow breathing techniques throughout. Patient with request to shave. Grooming task completed at sink in sitting at set-up. Patient O2 monitored throughout as off O2 to complete task. O2 dropped to 80% with increase to 90% after 1-2 minutes. Patient again educated on breathing techniques in order to get O2 back up faster. Patient set-up for completion of burshing teeth at sink in sitting. Bed Mobility Supine to EOB: SBA Transfers CGA/Min A for sit to stand transfers. Patient with max cues to manage O2 line. Patient declined adjustment of cord and states that he doesn 't care about it. Functional mobility throughout room with FWW and transfer belt: CGA Functional mobility from room to therapy gym with FWW and transfer belt: CGA . Paitent with assistance with O2 line. Assessment/Plan Assessment Assessment Patient making progress towards ADLs. Plan Plan ADLs, bed mobility, increase activity tolerance Time Started 08:30 Time Ended 09:20 Total Treatment Time (Min) (min) 50 Timed Code Treatment Minutes (min) 50 Charge Sheet G-Code Therapies Protocol: REHAB.8MIN Self Care/Home Management 3 Documentation Complete OT Charges/Documentation Finished? Yes Last Visit Is patient being discharged from OT No today? Preliminary Draft Until Electronically Signed by Supervising Therapist [facility] POC Glucometer Teston 2020 Glucose [Mass/Vol] 154 mg/dL High 70-99 [facility] Comment on above: Performed By: #### P OCGLUCOMETER ####[facility] [id number] [place] [address] Glucose [Mass/Vol] 131 mg/dL High 70-99 [facility] Comment on above: Performed By: #### P OCGLUCOMETER #### [facility] [address] [id number] Glucose [Mass/Vol] 117 mg/dL High 70-99 [facility] Comment on above: Performed By: #### P OCGLUCOMETER ####[facility] [id number] [place], [place] [id number] Glucose [Mass/Vol] 191 mg/dL High 70-99 [facility] Comment on above: Performed By: #### P OCGLUCOMETER ####[facility] [id number] [place] [address] Glucose [Mass/Vol] 102 mg/dL High 70-99 [facility] Comment on above: Performed By: #### P OCGLUCOMETER ####[facility] [id number] [place] [address] Glucose [Mass/Vol] 131 mg/dL High 70-99 [facility] Comment on above: Result Comment: Glu2 : RN Notified Performed By: #### P OCGLUCOMETER #### [facility] [address] [place] [address] Glucose [Mass/Vol] 334 mg/dL High 70-99 [facility] Comment on above: Performed By: #### P OCGLUCOMETER #### [facility] [address] [place] [address] Glucose [Mass/Vol] 86 mg/dL Normal 70-99 [facility] Comment on above: Performed By: #### P OCGLUCOMETER #### [facility] [address] [place] [address] PT Rehab/Swing Daily Noteon 04-21-2020 PT Rehab/Swing Daily Note Physical Therapy PT Rehab/Swing Daily Note. Start: 04/13/20 08:19 Freq: Status: Active Protocol: Document 04/21/20 14:56 TLW (Rec: 04/21/20 15:11 TLW [id number]) General/Subjective General Date of Admission 04/12/20 Referring Provider Jim Marshall PT Visit # PM Diagnosis deconditio Additional PT Treatment Diagnosis/ Medical Dx: physical Clarification deconditioning s/p hospitilization for COVID-19 pneumonia, bacterial pneumonia , acute respiratory failure with hypoxia Additional PT tx dx: difficulty walking (R26.2), other reduced mobility (Z74.09 ), generalized muscle weakness (Z74.09) Subjective Subjective Patient in rehab gym up in chair and O2 on AAT. Precautions Restrictions/Precauti ons fall risk, bed/chair alarms, supplemental O2 with oximask, recent loss of spouse, CHENEGA, wound on sacrum Objective Mobility Transfers MIN/SBA dependent of surface height and positioning. Gait gait 60'x2 with seated rest between CGA/SBA no LOB adn Therapist managing the O2. Endurance F Therapeutic Exercises Therapeutic Exercise Nustep L1 x 10 min BUE/BLE one seated rest break at 5 min Assessment and Plan Assessment Assessment Pateint very anxious regarding bowel movements. Wanted to speak with nurse. Nurse spoke with patient after bowel movement anxiety decreased after his coccyx wound was checked. Disposition at end of Eval/Treatment Up in chair,Staff in room,Call light/phone within reach,Tray table within reach,All needs met Plan Plan Continue to progress gross LE strength and endurance to improve tolerance with functional tasks. Time Started 13:50 Time Ended 14:20 Total Treatment Time (Min) (min) 30 Timed Code Treatment Minutes (min) 30 Charge Sheet G-Code Therapies Protocol: REHAB.8MIN Therapeutic Exercise 1 Gait Training 1 Documentation Complete PT Charges/Documentation Finished? Yes Last Visit Is patient being discharged from PT No today? Preliminary Draft Until Electronically Signed by Supervising Therapist [facility] PT Rehab/Swing Daily Note Physical Therapy PT Rehab/Swing Daily Note. Start: 04/13/20 08:19 Freq: Status: Active Protocol: Document 04/21/20 12:05 MW (Rec: 04/21/20 12:24 MW [id number]) General/Subjective General Date of Admission 04/12/20 Referring Provider Jim Marshall PT Visit # AM Diagnosis deconditio PT Treatment Diagnosis Other malaise Additional PT Treatment Diagnosis/ Medical Dx: physical Clarification deconditioning s/p hospitilization for COVID-19 pneumonia, bacterial pneumonia , acute respiratory failure with hypoxia Additional PT tx dx: difficulty walking (R26.2), other reduced mobility (Z74.09 ), generalized muscle weakness (Z74.09) Subjective Subjective Patient resting in chair in therapy gym as he just finished working with OT. Patient agrees to work with PT in therapy gym. Denies any new complaints or pain. Precautions Restrictions/Precauti ons fall risk, bed/chair alarms, supplemental O2 with oximask, recent loss of spouse, CHENEGA, wound on sacrum Objective Vital Signs Vitals at time of rehab vitals during tx session on 3L of O2: 88-97% SPO2 Mobility Bed Mobility sitting EOB to supine: SBA, verbal cues for positioning in bed Transfers sit to stand from chair: modA with FWW; sit to stand from BSC: modA with FWW, utilizes grab bar on the Lt Balance standing dynamic: CGA with martita UE support; 1x LOB when reaching out of [place] for walker but able to correct with stepping strategy Gait Amb 75ft with FWW at CGA; poor awareness of O2 line/tank requiring therapist assistance to manage Endurance fair Therapeutic Exercises Therapeutic Exercise sitting ther ex martita LE 2x10: marching, LAQ, hip abd, hip add with 3 sec hold, ankle pumps, glute set with 3 sec hold; standing ther ex martita LE 2x10 at // bars for martita UE support: hip flex, hip abd, hip ext; standing dynamic balance training at // bars with UE reaching forward towards mirror for 5 minutes Rehab Education Education Provided Education Provided: Details Educated patient on importance of utilizing commode vs urinal/BSC to optimize functional recovery. Teaching Recipient Patient Teaching Method Verbal Response to Teaching Verbalize understanding Assessment and Plan Assessment Assessment Patient begins therapy session with standing ther ex at // bars for UE support. He demonstrates fair tolerance and able to stand for near 10 minutes before rest break. He progresses with sitting ther ex with verbal cues for proper technique before completing remainder of standing ther ex. Patient continues to require constant verbal cues for pursed lip breathing technique as patient demonstrates increase RR. He experience 1x LOB when transitioning from // bars to walker but self corrects with stepping stategy . He ambulates short distance from therapy gym to room and requests to use urinal at bed. Educated patient on importance of utilizing commode to prepare for home environment as patient will not use urinal once d/c and patient seems frustrated but verbalizes understanding. He requires modA x1 with sit to stand transfer from raised commode and requires assistance to don pants in standing. Patient progresses with short walk to bed and completes sitting EOB to supine transfer at SBA. At end of session, discussed with patient possible need for 24 hour assistance at home to promote safety with functional mobility. RTPau, also present at end of session and informs patient that he will likely need O2 at home. Patient extremely frustrated and asks "do either of you have a gun I could use." Discussed with patient that he is doing very well and that he has family support. RN, Marine, notified regarding patient status and comment. Patient resting in bed with RT present and all needs met. Disposition at end of Eval/Treatment In bed,Lines intact,Staff in room,Call light/phone within reach,Tray table within reach, All needs met Plan Plan Continue to progress gross LE strength and endurance to improve tolerance with functional tasks. Time Started 09:35 Time Ended 10:20 Total Treatment Time (Min) (min) 45 Timed Code Treatment Minutes (min) 45 Charge Sheet G-Code Therapies Protocol: REHAB.8MIN Therapeutic Exercise 1 Therapeutic Activity 1 Gait Training 1 Documentation Complete PT Charges/Documentation Finished? Yes Last Visit Is patient being discharged from PT No today? Preliminary Draft Until Electronically Signed by Supervising Therapist [facility] OT Noteon 04-20-2020 OT Note Weekly Rehab Team Goal Weekly Rehab Team Goals Start: 04/12/20 18:53 Freq: QWEEK Status: Active Protocol: Activity Type Activity Date Activity User E-Sign Co-Sign Detail Recorded Client Recorded Date Recorded By Document 04/20/20 14:32 [facility] [id number] 04/20/20 14:37 [facility] 04/20/20 14:32 Mobility (PT/OT/TR) Bed Mobility Current Status Mod-I Bed Mobility Weekly Goal Improve Date 04/20/20 Supine to Sit Current Status Mod-I Supine to Sit Weekly Goal Improve Date 04/20/20 Sit to Stand Current Status CGA Sit to Stand Weekly Goal SBA Date 04/20/20 Ambulate or W/C Current Status CGA with FWW x80'x1 Ambulate or W/C Weekly Goal SBA/CGA with FWW x150'x1 Date 04/20/20 Stairs Current Status NTY Stairs Weekly Goal up/down 1 step in // bars CGA Date 04/20/20 Sitting Balance Current Status I Sitting Balance Weekly Goal I 04/20/20 Standing Balance Current Status CGA with UE balance support Standing Balance Weekly Goal SBA with UE balance support Date 04/20/20 ROM UE Current Status wfl ROM UE Weekly Goal same Date 04/20/20 ROM LE Current Status B LE WFL ROM LE Weekly Goal B LE WFL Date 04/20/20 Strength UE Current State BUE 4/5 but fatigues Strength UE Weekly Goal BUE MMT= 4+/5 Date 04/20/20 Strength LE Current State B LE gross 4/5 Strength LE Weekly Goal B LE gross 4/5 Date 04/20/20 Endurance Current State Fair+ Endurance Weekly Goal Good- Date 04/20/20 Self Care (OT/NSG/CASH APPLICATIONS MANAGER/PT) UE Dressing Current Status setup/sba UE Dressing Weekly Goal Mod I Date 04/20/20 LE Dressing Current Status CGA for balance LE Dressing Weekly Goal Mod I Date 04/20/20 Grooming Current Status s/u assist Grooming Weekly Goal Mod I Date 04/20/20 Feeding Current Status Independent Feeding Weekly Goal same Date 04/20/20 Housekeeping Meal Preparation Current Tolerates 3-4 Status minutes up at a time, requires max cues for safety/O2 cord Housekeeping Meal Preparation Weekly Mod I Goal Date 04/20/20 Bath Transfer Current Satus Min A with tub transfer bench Bath Transfer Weekly Goal Mod I Date 04/20/20 Bathing Task Current Status supervision seated on tub bench Bathing Task Weekly Goal improve Date 04/20/20 Toilet Transfer Current Status CGA Toilet Transfer Weekly Goal SBA Date 04/20/20 Toilet Transfer Current Status CGA to BSC and standing to use urinal Toilet Transfer Weekly Goal SBA Date 04/20/20 Toilet Hygiene Current Status SBA-CGA for balance Toilet Hygiene Weekly Goal improve Date 04/20/20 Behavior/Cognizance(S LP/OT/TR) Cognition Current Status Impaired safety awareness, anxious, decreased understanding of need for O2 Cognition Weekly Goal improve Date 04/20/20 Visual Processing Neglect Current WFL State Visual Processing Neglect Weekly Goal same Date 04/20/20 Discharge Planning (SW/PT/OT) Anticipated Place of Discharge Current TBD Status Date 04/14/20 Caregivers Needed Current Status TBD Date 04/14/20 Equipment Current Status TBD Date 04/20/20 Equipment Current Status TBD Date 04/20/20 Equipment Current Status TBD Date 04/14/20 FTV/HSV Current Status TBD Date 04/20/20 OP/HH Therapy Current Status TBD Date 04/14/20 Family Meeting/Education Current Status TBD Date 04/14/20 Anticipated Discharge Date Current TBD Status Date 04/20/20 OT information entered by Daylin Schuster OTR/L [facility] OT Swing/Rehab Daily Noteon 04-20-2020 OT Swing/Rehab Daily Note Occupational Therapy OT Rehab/Swing Daily Note Start: 04/13/20 11:04 Freq: Status: Active Protocol: Document 04/20/20 14:43 TGS (Rec: 04/20/20 14:46 TGS [id number]) General/Subjective General Referring Provider Jim Marshall OT Visit # pm Diagnosis deconditio OT Treatment Diagnosis Muscle weakness (generalized) Additional OT Treatment Diagnosis/ Dx: Physical deconditioning s/ Clarification p hospitilization for COVID-19 pneumonia, bacterial pneumonia, acute respiratory failure with hypoxia Subjective Subjective Patient is pleasant and cooperative. Sitting in therapy gym upon OT's arrival. Restrictions Weight Bearing Restrictions/Precauti ons fall risk, bed/chair alarms, supplemental O2 with oximask, recent loss of spouse, CHENEGA, wound on sacrum Objective Vital Signs Vitals at time of rehab pt on 4 liters of supplemental 02 Functional Ability Transfers min assist for sit to stand; CGA for mobility with fww from therapy gym to patient's room with assist for supplemental 02 Therapeutic Exercise Exercise Comment BUE strengthening with 3# dowel david in overhead presses, chest presses, forward/ backward rows, side to side, roation and bicep curls 2 x 15 reps each to maximize strength necessary for increasing status with transfers Assessment/Plan Assessment Assessment fair tolerance to exercises; progressing with resistance and reps Disposition at end of Eval/Treatment In bed,Bed Alarm,Call light/ phone within reach,Tray table within reach,All needs met Plan Plan ADLs, bed mobility, increase activity tolerance Time Started 14:05 Time Ended 14:35 Total Treatment Time (Min) (min) 30 Timed Code Treatment Minutes (min) 30 Charge Sheet G-Code Therapies Protocol: REHAB.8MIN Therapeutic Exercise 2 Documentation Complete OT Charges/Documentation Finished? Yes Last Visit Is patient being discharged from OT No today? Preliminary Draft Until Electronically Signed by Supervising Therapist [facility] OT Swing/Rehab Daily Note Occupational Therapy OT Rehab/Swing Daily Note Start: 04/13/20 11:04 Freq: Status: Active Protocol: Document 04/20/20 12:01 TGS (Rec: 04/20/20 12:18 TGS [id number]) General/Subjective General Referring Provider Jim Brennershahnazjeanne OT Visit # am Diagnosis deconditio OT Treatment Diagnosis Muscle weakness (generalized) Additional OT Treatment Diagnosis/ Dx: Physical deconditioning s/ Clarification p hospitilization for COVID-19 pneumonia, bacterial pneumonia, acute respiratory failure with hypoxia Subjective Subjective Patient is agreeable to therapy. Anxiout throughout session, requesting to lay down at end of session. Restrictions Weight Bearing Restrictions/Precauti ons fall risk, bed/chair alarms, supplemental O2 with oximask, recent loss of spouse, CHENEGA, wound on sacrum Objective Functional Ability Home Management Item retrieval and item transport in kitchen with poor carryover with walker safety techniques; maximal cues are required for hand placement when reaching into cabinets to retrieve items, and to not negotiate walker when both hands are not on walker; cues for cord management while completing d/t cord getting tangled and wrapped around walker and feet requiring maximal cues Standing/Activity Tolerance pt up with fww for 4 minutes x 2 while engaging in kitchen tasks with a rest break needed in between d/t fatigue and SOB; Bed Mobility min assist for bed mobility sit to supine with assist for LLE Transfers Pt completed sit to stand transfers requiring min assistance with maximal cues for hand placment; pt left walker and stepped outside to sit in chair; CGA for mobility with fww from room <-> therapy room and around kitchen with maximal cues for safe cord management of supplemental 02 and cues to keep body inside walker and not step outside of walker; Rehab Education Education Provided Education Provided: Details Walker safety education completed this date. Pt provided with walker bag and handout. Provided visual demonstration and verbal/ written instructions. Pt verbalized understanding. Applied tecniques post education in kitchen. Assessment/Plan Assessment Assessment poor walker safety; poor activity tolerance Disposition at end of Eval/Treatment In bed,Bed Alarm,Call light/ phone within reach,Tray table within reach,All needs met Plan Plan ADLs, bed mobility, increase activity tolerance Time Started 11:15 Time Ended 11:55 Total Treatment Time (Min) (min) 40 Timed Code Treatment Minutes (min) 40 Charge Sheet G-Code Therapies Protocol: REHAB.8MIN Therapeutic Activity 3 Documentation Complete OT Charges/Documentation Finished? Yes Last Visit Is patient being discharged from OT No today? Preliminary Draft Until Electronically Signed by Supervising Therapist [facility] POC Glucometer Teston 2020 Glucose [Mass/Vol] 149 mg/dL High 70-99 [facility] Comment on above: Performed By: #### P OCGLUCOMETER #### [facility] [address] [place] [id number] Glucose [Mass/Vol] 152 mg/dL High 70-99 [facility] Comment on above: Result Comment: Glu2 : RN Notified Performed By: #### P OCGLUCOMETER #### [facility] [address] [place] [address] PT Rehab/Swing Daily Noteon 04-20-2020 PT Rehab/Swing Daily Note Physical Therapy PT Rehab/Swing Daily Note. Start: 04/13/20 08:19 Freq: Status: Active Protocol: Document 04/20/20 14:47 MW (Rec: 04/20/20 15:00 MW [id number]) General/Subjective General Date of Admission 04/12/20 Referring Provider Jim Marshall PT Visit # PM Diagnosis deconditio PT Treatment Diagnosis Other malaise Additional PT Treatment Diagnosis/ Medical Dx: physical Clarification deconditioning s/p hospitilization for COVID-19 pneumonia, bacterial pneumonia , acute respiratory failure with hypoxia Additional PT tx dx: difficulty walking (R26.2), other reduced mobility (Z74.09 ), generalized muscle weakness (Z74.09) Subjective Subjective Patient resting in bed upon arrival to room but willing to work with therapy. Precautions Restrictions/Precauti ons fall risk, bed/chair alarms, supplemental O2 with oximask, recent loss of spouse, CHENEGA, wound on sacrum Objective Vital Signs Vitals at time of rehab vitals during tx session on 4L of O2: SPO2 88-96% Mobility Bed Mobility supine to sitting EOB: CGA, HOB elevated and utilizes bedrail on Rt Transfers sit to stand from EOB: Katie with FWW; sit to stand from chair: 3x modA with FWW Balance sitting: LANCE standing: CGA with martita UE support Gait Amb 75ft with FWW at CGA and therapist managing O2 tank/ line; abnormal gait mechanics include: decrease calixto, increase trunk flexion/UE assist, and NBOS Endurance fair Therapeutic Exercises Therapeutic Exercise standing ther ex martita LE 2x10 at // bars for martita UE support: hip flex, hip ext, hip abd, glute set with 3 sec hold (10 minutes with 1 seated rest break) Rehab Education Education Provided Education Provided: Details Educated patient on importance of managing O2 line when completing functional mobility to decrease fall risk. Teaching Recipient Patient Teaching Method Verbal Response to Teaching Verbalize understanding Assessment and Plan Assessment Assessment Patient demonstrates good tolerance to physical therapy this afternoon. Focused treatment session on gait and transfers as well as LE strengthening in CK. Patient on 4L of O2 with exertional activity to maintain SPO2 at 88% or greater. He requires modA for sit to stand transfers and verbal cues for "nose over toes" to allow ease in completing task. Patient progresses with standing ther ex as noted above and requires only 1 sitting rest break during 10 minute bout. However , he requires motivation and encouragement to remain in standing as patient doubts his ability to complete prolong standing ther ex. Patient resting in chair in therapy gym with all needs met and ready to participate in OT at end of session. Disposition at end of Eval/Treatment Up in chair,Staff in room,All needs met Plan Plan Continue to progress gait mechanics and transfers to promote independence within environment. Time Started 13:40 Time Ended 14:05 Total Treatment Time (Min) (min) 25 Timed Code Treatment Minutes (min) 25 Charge Sheet G-Code Therapies Protocol: REHAB.8MIN Therapeutic Exercise 1 Therapeutic Activity 1 Documentation Complete PT Charges/Documentation Finished? Yes Last Visit Is patient being discharged from PT Yes today? Preliminary Draft Until Electronically Signed by Supervising Therapist [facility] PT Rehab/Swing Daily Note Physical Therapy PT Rehab/Swing Daily Note. Start: 04/13/20 08:19 Freq: Status: Active Protocol: Document 04/20/20 11:29 MW (Rec: 04/20/20 11:42 MW [id number]) General/Subjective General Date of Admission 04/12/20 Referring Provider Jim Marshall PT Visit # AM Diagnosis deconditio PT Treatment Diagnosis Other malaise Additional PT Treatment Diagnosis/ Medical Dx: physical Clarification deconditioning s/p hospitilization for COVID-19 pneumonia, bacterial pneumonia , acute respiratory failure with hypoxia Additional PT tx dx: difficulty walking (R26.2), other reduced mobility (Z74.09 ), generalized muscle weakness (Z74.09) Subjective Subjective Patient sitting in bedside chair and states his bottom is sore from sitting/lying in bed. Reports he has been walking <> bathroom and is no longer utilizing BSC. States his legs still feel very week. Precautions Restrictions/Precauti ons fall risk, bed/chair alarms, supplemental O2 with oximask, recent loss of spouse, CHENEGA, wound on sacrum Objective Vital Signs Vitals at time of rehab vitals during tx session with patient on 3-4L of O2: SpO2 ranges from 80-96%; SPO2 decreases to 80 when walking from room to therapy gym; Marine KITCHEN, notified and O2 increased to 4L; SpO2 recovers quickly to 90% or greater Mobility Transfers sit to stand from bedside chair: modA with FWW sit to stand from nu-step: Katie with FWW sit to stand from EOB: Katie with FWW Balance sitting: LANCE standing: CGA with martita UE support Gait Amb 75ft x2 with FWW at CGA and therapist manages O2 tank/ line. No LOB present but increase UE assist and trunk flexion observed. SPO2 decreases to 80% with ambulation but recovers quickly to 90% or greater with increase in supplemental O2 to 4L per RN. Endurance fair Therapeutic Exercises Therapeutic Exercise Nu-step for gross LE strength/ endurance/mobility: L1, 15 minutes (2 intermittent rest breaks) Rehab Education Education Provided Education Provided: Details Educated patient on importance of endurance training to improve activity tolerance with functional tasks. Teaching Recipient Patient Teaching Method Verbal Response to Teaching Verbalize understanding Assessment and Plan Assessment Assessment Patient continues to require max encouragement to participate in functional activities out of bed. He requires min to modA for sit to stand transfers depending on surface level height as well as fatigue level. He ambulates 75ft with FWW at CGA and requires increase assistance to manage O2 tank/ line as patient demonstrates poor awareness. Focused remainder of treatment session on gross LE strength and endurance training via Nu-step . He completes Nu-step for 15 minutes on L1 and requires only 2 rest breaks for fatigue management. Extended rest break required before ambulating from therapy gym to room. Patient remains on 4L in room secondary to SpO2 in low 90s. Marine KITCHEN, present and updated on current status. Disposition at end of Eval/Treatment Up in chair,Lines intact,Staff in room,All needs met Plan Plan Continue to progress standing tolerance and gross LE strength to decrease assistance with transfers and ambulation. Time Started 09:45 Time Ended 10:25 Total Treatment Time (Min) (min) 40 Timed Code Treatment Minutes (min) 40 Charge Sheet G-Code Therapies Protocol: REHAB.8MIN Therapeutic Activity 2 Gait Training 1 Documentation Complete PT Charges/Documentation Finished? Yes Last Visit Is patient being discharged from PT No today? Preliminary Draft Until Electronically Signed by Supervising Therapist [facility] Internal Med Progress Noteon 04-19-2020 Internal Med Progress Note [facility] [address] [place] [address] Internal Med Progress Note Signed PRELIMINARY DRAFT REPORT UNTIL ELECTRONICALLY SIGNED PATIENT: Mick Cottrell MR#: [id number] : 1940 AGE/SEX: 79 / M ADMITTED: 04/12/20 1837 OUTSIDE LOCN: LOCATION: [address] ATTENDING: Jim Marshall MD cc: ; Date of Encounter: 04/19/20 Time of Encounter: 13:12 - Assessment and plan (1) Diabetes mellitus Current Visit: Yes Status: Chronic Assessment and plan: Hemoglobin A-1 C is 7.6 from one . Continue fingerstick blood sugar, insulin sliding scale and metformin. Qualifiers: Diabetes mellitus type: type 2 Diabetes mellitus snf insulin use: without snf use Diabetes mellitus complication status: without complication Qualified Code(s): E11.9 - Type 2 diabetes mellitus without complications (2) COPD (chronic obstructive pulmonary disease) Current Visit: Yes Status: Chronic Assessment and plan: Continue inhaled meds and oxygen per nasal cannula. Continue cortical steroids and bronchodilators. Qualifiers: COPD type: unspecified COPD Qualified Code(s): J44.9 - Chronic obstructive pulmonary disease, unspecified (3) COVID-19 Current Visit: Yes Status: Acute Assessment and plan: No acute issues. Patient was first diagnosed with Covid on 03/05/20 and again on 03/28/20. Patient is currently no longer on isolation. Patient did receive, convalescent plasma and remdesivir during his hospitalization in February. Patient has finished his course of antibiotics for secondary bacterial pneumonia. Tapering Decadron.. Patient's inflammatory markers continue to trend down. We will continue with therapy (4) Acute respiratory failure with hypoxia Current Visit: Yes Status: Acute Assessment and plan: Maintaining oxygen saturation greater than 90% at 3 L per nasal cannula. Slowly improving. Continue inhaled medication. Tapering Decadron. Continue therapy. (5) HTN (hypertension) Current Visit: Yes Status: Chronic Assessment and plan: Controlled with current medication. Monitor blood pressure. Qualifiers: Hypertension type: essential hypertension Qualified Code(s): I10 - Essential (primary) hypertension (6) BPH (benign prostatic hyperplasia) Current Visit: Yes Status: Chronic Assessment and plan: Stable with proscar Qualifiers: Lower urinary tract symptom presence: symptoms absent Qualified Code(s): N40.0 - Benign prost atic hyperplasia without lower urinary tract symptoms (7) Systolic heart failure Current Visit: Yes Status: Chronic Assessment and plan: Stable. Not exacerbation. Monitor labs. Continue Lasix, aspirin, Lipitor metoprolol. Qualifiers: Heart failure chronicity: chronic Qualified Code(s): I50.22 - Chronic systolic (congestive) heart failure (8) GERD (gastroesophageal reflux disease) Current Visit: Yes Status: Chronic Assessment and plan: Stable with PPI. Qualifiers: Esophagitis presence: with esophagitis Esophagitis bleeding: without hemorrhage Qualified Code(s): K21.00 - Gastro-esophageal reflux disease with esophagitis, without bleeding (9) Paroxysmal atrial fibrillation Current Visit: Yes Status: Chronic Assessment and plan: Rate and rhythm stable. Continue metoprolol and xarelto. - Time Spent With Patient less than 15 minutes - Subjective Interval history: Mr. Cottrell is a 79 year old male with known past medical history of HFpEF, COPD, CVA, A-Fib, HTN, DM2, BPH who was admitted at [facility] on 03/05 with cough, SOB, and malaise for 5 days. Hospital course complicated by development of new A-Fib RVR as well as acute metabolic encephalopathy. Patient was placed on supplemental O2 and required up to HHFNC at 40L/60%. Patient was given high dose dexamethasone, transfusion of convalescent plasma, and course of remdesivir, with eventual improvement in his symptoms and oxygenation. He was transferred to our [facility] during that hospitalization as lateral transfer to continue his further acute medical care and eventually transitioning him to swing bed for his physical deconditioning. When he was in rehab facility one day he became more hypoxic with worsening respiratory failure. He got readmitted at [facility] on 03/28/2020 with acute hypoxic resp failure due to multi focal pneumonia. He happened to have hemoptysis too. He was evaluated by Technical Planner who held his anti coag Eliquis and continued IV Decadran and empirical abx Levaquin. His hemoptysis resolved and his oxygen requirement came down to 4-6 lit now. Due to bed crunch for Covid positive patients at [facility] he was sent to our facility [facility] as lateral trasnfer to continue further medical care and possible rehab when he becomes more medically stable. We continued his Decadron and other supportive measures. His symptoms imroved and able to participate in rehab. He was transferred to rehab facility. pt lying in bed, alert and oriented X4. denies fever, chills, NVD or chest pain. states he has sob with exertion. states he has been drinking ensure with meals. participating with therapy. maintaining O2 at 3 liters per NC. - Constitutional Vitals: Temp Pulse Resp BP Pulse Ox 97.5 F L 70 16 165/44 98 04/19/20 07:52 04/19/20 07:52 04/19/20 07:53 04/19/20 07:53 04/19/20 07:53 General appearance: Present: cooperative, A O X 3, pleasant, no acute distress, answers questions appropriately - Head Head exam: Present: atraumatic, normocephalic - Eye Eye exam: Present: PERRL, conjuntiva pink, sclera anicteric Pupils: Present: PERRL - Neck Neck exam general surgery: Present: supple, trachea midline. Absent: lymphadenopathy - Respiratory Respiratory exam: Present: decreased breath sounds, CTAB. Absent: accessory muscle use, rales, rhonchi, wheezes - Cardiovascular Cardiovascular exam: Present: RRR, +S1, +S2. Absent: diastolic murmur, gallop, rubs, systolic murmur - GI/Abdominal GI/Abdominal exam: Present: normal bowel sounds, soft, no peritoneal signs. Absent: distended, tenderness - Extremities Exam Extremities exam: Present: warm, radial pulses palpable and symmetrical. Absent: calf tenderness, cyanotic, pedal edema - Neurological Exam Neurological exam: Present: CN II-XII intact, oriented X3, no focal deficits. Absent: pronater drift, facial droop, speech deficit - Skin Skin exam: Present: dry, intact Internal Medicine: Result - Labs CBC Chem 7: 04/17/20 05:28 04/17/20 05:28 - ABG Interpretation ABG results: PT/INR, D-dimer D-Dimer 1799 ng/mLFEU (0-500) H 04/17/20 05:28 Consult Discharge Plan - Plan Referrals: Jim Marshall MD [Primary Care Provider] - Documented By: Capri Iqbal APN Signed By: 04/19/20 131 DD/ 131 Initialized By: [id number] [facility] OT Swing/Rehab Daily Noteon 04-19-2020 OT Swing/Rehab Daily Note Occupational Therapy OT Rehab/Swing Daily Note Start: 04/13/20 11:04 Freq: Status: Active Protocol: Document 04/19/20 15:22 TGS (Rec: 04/19/20 15:51 TGS [id number]) General/Subjective General Referring Provider Jim Marshall OT Visit # pm Diagnosis deconditio OT Treatment Diagnosis Muscle weakness (generalized) Additional OT Treatment Diagnosis/ Dx: Physical deconditioning s/ Clarification p hospitilization for COVID-19 pneumonia, bacterial pneumonia, acute respiratory failure with hypoxia Subjective Subjective Patient is pleasant and cooperative, agreeable to a shower. Restrictions Weight Bearing Restrictions/Precauti ons fall risk, bed/chair alarms, supplemental O2 with oximask, recent loss of spouse, CHENEGA, wound on sacrum Objective Vital Signs Vitals at time of rehab pt on 3 liters of supplemental 02; 02 between 90-94% throughout Functional Ability ADL's Patient completed a shower using the tub/shower combo with the bench; pt completed bathing tasks while remaning seated on a bench at supervision due to SOB and history of drop in 02; pt doffed shirt, underwear, and pants at SBA/supervision while remaining seated and shifting garments over/off hips; doffed/donned socks using leg crossing technique; donned clean gown at setup; Transfers CGA-min assist for sit to stand transfers; CGA for mobility with fww from w/c to tub transfer bench; completed a tub transfer with use of transfer bench at SBA/ supervision into shower and min assist out of shower Assessment/Plan Assessment Assessment progressing with adl's Disposition at end of Eval/Treatment Staff in room,All needs met Plan Plan ADLs, bed mobility, increase activity tolerance Time Started 14:35 Time Ended 15:10 Total Treatment Time (Min) (min) 35 Timed Code Treatment Minutes (min) 35 Charge Sheet G-Code Therapies Protocol: REHAB.8MIN Self Care/Home Management 2 Documentation Complete OT Charges/Documentation Finished? Yes Last Visit Is patient being discharged from OT No today? Preliminary Draft Until Electronically Signed by Supervising Therapist [facility] OT Swing/Rehab Daily Note Occupational Therapy OT Rehab/Swing Daily Note Start: 04/13/20 11:04 Freq: Status: Active Protocol: Document 04/19/20 10:46 TGS (Rec: 04/19/20 10:49 TGS [id number]) General/Subjective General Referring Provider Jim Marshall OT Visit # am Diagnosis deconditio OT Treatment Diagnosis Muscle weakness (generalized) Additional OT Treatment Diagnosis/ Dx: Physical deconditioning s/ Clarification p hospitilization for COVID-19 pneumonia, bacterial pneumonia, acute respiratory failure with hypoxia Subjective Subjective Patient requesting to use restroom twice this session, full session not achieved secondary to need to bowel issues. Restrictions Weight Bearing Restrictions/Precauti ons fall risk, bed/chair alarms, supplemental O2 with oximask, recent loss of spouse, CHENEGA, wound on sacrum Objective Functional Ability ADL's Pt required CGA for clothing managemenet and SBA for hygiene x 2 this date; Transfers min assist for sit to stand transfers with assist to weight shift foward from w/ and commode Therapeutic Exercise Exercise Comment red t-band 1 x 15 reps each in chest level pullouts, diagonal pattern of upward pulls and anchored upward pulls to maximize strength necessary to increase performance with transfers Assessment/Plan Assessment Assessment full session not achieved secondary to bowel issues this date and spent majority of time on commode Plan Plan ADLs, bed mobility, increase activity tolerance Time Started 10:20 Time Ended 10:45 Total Treatment Time (Min) (min) 25 Timed Code Treatment Minutes (min) 25 Charge Sheet G-Code Therapies Protocol: REHAB.8MIN Therapeutic Exercise 1 Self Care/Home Management 1 Documentation Complete OT Charges/Documentation Finished? Yes Last Visit Is patient being discharged from OT No today? Preliminary Draft Until Electronically Signed by Supervising Therapist [facility] POC Glucometer Teston 2020 Glucose [Mass/Vol] 209 mg/dL High 70-99 [facility] Comment on above: Result Comment: Glu2 : RN Notified Performed By: #### P OCGLUCOMETER ####[facility] [id number] [place], [place] [id number] Glucose [Mass/Vol] 76 mg/dL Normal 70-99 [facility] Comment on above: Performed By: #### P OCGLUCOMETER #### [facility] [address] [place] [address] [id number] Glucose [Mass/Vol] 117 mg/dL High 70-99 [facility] Comment on above: Performed By: #### P OCGLUCOMETER ####[facility] [id number] [place] [address] [id number] PT Rehab/Swing Daily Noteon 04-19-2020 PT Rehab/Swing Daily Note Physical Therapy PT Rehab/Swing Daily Note. Start: 04/13/20 08:19 Freq: Status: Active Protocol: Document 04/19/20 13:56 MJS (Rec: 04/19/20 14:01 MJS [id number]) General/Subjective General Date of Admission 04/12/20 Referring Provider Jim Marshall PT Visit # PM Diagnosis deconditio PT Treatment Diagnosis Other malaise Additional PT Treatment Diagnosis/ Medical Dx: physical Clarification deconditioning s/p hospitilization for COVID-19 pneumonia, bacterial pneumonia , acute respiratory failure with hypoxia Additional PT tx dx: difficulty walking (R26.2), other reduced mobility (Z74.09 ), generalized muscle weakness (Z74.09) Subjective Subjective Patient reports he is tired but knows he need therapy. Reports I want to get my legs stronger Precautions Restrictions/Precauti ons fall risk, bed/chair alarms, supplemental O2 with oximask, recent loss of spouse, CHENEGA, wound on sacrum Objective Mobility Transfers supine-sit min A sit-stand from EOB to WW Min/ mod A sit-stand from w/c to outside of // bars Min A with cues for hand placement transfer from EOB to w/c using WW 5 steps CGA Balance seated: Mod I standing: CGA with UE Balance support Gait SBA with w/c x75' using B UE's to propell w/c Therapeutic Exercises Therapeutic Exercise standing: holding to outside of // bars- heel raises, B hip flex/ext, B hip abd/add, marches, mini squats, glut sets all x10 reps each seated: ankle pumps, LAQ, hip abd/add, marches, glut sets all 2x10 reps each Assessment and Plan Assessment Assessment Patient started session with supine-sit to EOB. Used WW to transfer from EOB to w/c walking short distance for transfer. Patient then progressed with w/c mobility using B UE's to propell w/c. Patient then progressed with standing ther ex while holding to outside of // bars. Patient required rest breaks. Patient then progressed with seated ther ex as listed. Left patient sitting in w/c in rehab room to work with OT. Disposition at end of Eval/Treatment Up in chair,Staff in room Plan Plan Cont to progress as tolerated. Time Started 14:40 Time Ended 15:10 Total Treatment Time (Min) (min) 30 Timed Code Treatment Minutes (min) 30 Charge Sheet G-Code Therapies Protocol: REHAB.8MIN Therapeutic Exercise 1 Therapeutic Activity 1 Documentation Complete PT Charges/Documentation Finished? Yes Last Visit Is patient being discharged from PT No today? Preliminary Draft Until Electronically Signed by Supervising Therapist [facility] PT Rehab/Swing Daily Note Physical Therapy PT Rehab/Swing Daily Note. Start: 04/13/20 08:19 Freq: Status: Active Protocol: Document 04/19/20 09:29 [facility] (Rec: 04/19/20 09:31 [facility] [id number]) General/Subjective General Date of Admission 04/12/20 Referring Provider Jim Marshall PT Visit # AM Diagnosis deconditio PT Treatment Diagnosis Other malaise Additional PT Treatment Diagnosis/ Medical Dx: physical Clarification deconditioning s/p hospitilization for COVID-19 pneumonia, bacterial pneumonia , acute respiratory failure with hypoxia Additional PT tx dx: difficulty walking (R26.2), other reduced mobility (Z74.09 ), generalized muscle weakness (Z74.09) Subjective Subjective Patient is pleasant and cooperative at the start of AM physical therapy session. He reports generalized weakness as his most limiting factor. He does not feel that difficulty breathing is limiting his ability to return home. Precautions Restrictions/Precauti ons fall risk, bed/chair alarms, supplemental O2 with oximask, recent loss of spouse, CHENEGA, wound on sacrum Objective Mobility Bed Mobility supine-sit lance with HOB elevated Transfers Transfers sit to stand and stand pivot require Min to Mod -A x1 with multiple attempts and use of BUEs for pushoff from mattress or chair arms. Gait Gait front-wheeled walker from gym to patient's room 65'x1 with verbal cues for efficient walker management and gait sequencing. Additionally cues are given for proper breathing techniques to avoid episodes of dyspnea while patient on 3 L of oxygen. Therapeutic Exercises Therapeutic Exercise NuStep 10:00 WL#1 Squats off elevated seat Gentle hamstring and heel cord stretching Assessment and Plan Assessment Assessment Patient participates morning physical therapy session with emphasis on therapeutic activities including bed mobility and transfer training to improve transitional movements with greater efficiency to increase functional performance in reduce fall risk. Followed by gait training with careful monitoring of patient's SPO2 levels while on supplemental oxygen at 3 L/m. Finally, patient performs therapeutic exercise for lower extremity strengthening needed to enhance all functional mobility. Patient appears to be tracking well towards short and long-term goals, but may need additional time due to episodes of dyspnea with mild to moderate exertion. Disposition at end of Eval/Treatment Up in chair,Staff in room,All needs met Plan Plan Continue to progress standing tolerance and balance to decrease fall risk with short distance ambulation. Time Started 09:30 Time Ended 10:15 Total Treatment Time (Min) (min) 45 Timed Code Treatment Minutes (min) 45 Charge Sheet G-Code Therapies Protocol: REHAB.8MIN Therapeutic Exercise 1 Therapeutic Activity 1 Gait Training 1 Documentation Complete PT Charges/Documentation Finished? Yes Last Visit Is patient being discharged from PT No today? Preliminary Draft Until Electronically Signed by Supervising Therapist [facility] OT Swing/Rehab Daily Noteon 04-18-2020 OT Swing/Rehab Daily Note Occupational Therapy OT Rehab/Swing Daily Note Start: 04/13/20 11:04 Freq: Status: Active Protocol: Document 04/18/20 15:11 TGS (Rec: 04/18/20 15:21 [facility] [id number]) General/Subjective General Referring Provider iJm Marshall OT Visit # pm Diagnosis deconditio OT Treatment Diagnosis Muscle weakness (generalized) Additional OT Treatment Diagnosis/ Dx: Physical deconditioning s/ Clarification p hospitilization for COVID-19 pneumonia, bacterial pneumonia, acute respiratory failure with hypoxia Subjective Subjective Patient is pleasant, agreeable to therapy. Reports his knee buckled during shower stall transfer and was fearful of falling despite therapist holding onto patient. Restrictions Weight Bearing Restrictions/Precauti ons fall risk, bed/chair alarms, supplemental O2 with oximask, recent loss of spouse, CHENEGA, wound on sacrum Objective Vital Signs Vitals at time of rehab pt on 3 liters of supplemental 02; 02 between 90-94% throughout Functional Ability ADL's Therapist and patient discussed showering at home; pt has a walk in shower and tub/shower comb; pt discussed using tub/shower- therapist advised a shower bench if planning to use tub/shower as well as would benefit from a bath aide Transfers min assist for sit to stand transfers from w/c with cues for hand placement and to weight shift forward when attempting to stand; CGA for shower stall transfer stepping backwards over 4" threhold while holding to walker; mod assist for sit to stand for shower chair secondary to lower surface with no hand rail on right side to push from Therapeutic Exercise Exercise Comment BUE strengthening and activity tolerance including arm bike 1 x 4 minutes forward and 1 x 4 minutes backwards with rest breaks in between Assessment/Plan Assessment Assessment recommending a bathaide to assist with showering once d/c home; Plan Plan ADLs, bed mobility, increase activity tolerance Time Started 14:30 Time Ended 15:00 Total Treatment Time (Min) (min) 30 Timed Code Treatment Minutes (min) 30 Charge Sheet G-Code Therapies Protocol: REHAB.8MIN Therapeutic Exercise 1 Therapeutic Activity 1 Documentation Complete OT Charges/Documentation Finished? Yes Last Visit Is patient being discharged from OT No today? Preliminary Draft Until Electronically Signed by Supervising Therapist [facility] OT Swing/Rehab Daily Note Occupational Therapy OT Rehab/Swing Daily Note Start: 04/13/20 11:04 Freq: Status: Active Protocol: Document 04/18/20 11:53 CK (Rec: 04/18/20 12:09 CK [id number]) General/Subjective General Referring Provider Jim Marshall OT Visit # am Diagnosis deconditio OT Treatment Diagnosis Muscle weakness (generalized) Additional OT Treatment Diagnosis/ Dx: Physical deconditioning s/ Clarification p hospitilization for COVID-19 pneumonia, bacterial pneumonia, acute respiratory failure with hypoxia Subjective Subjective Pt in gym, returned to room to don pants, no complaints of pain. Restrictions Weight Bearing Restrictions/Precauti ons fall risk, bed/chair alarms, supplemental O2 with oximask, recent loss of spouse, CHENEGA, wound on sacrum Objective Vital Signs Vitals at time of rehab 3L supplemental O2 throughout, drops as low as 89% with standing tasks oximask donned. Pt declined sponge bath at this time. Setup SBA to maira l pants. Min A sit-> stand transfer, CGA balance standing . Min to mod A sit -> stand. O2 drops when standing to 89%, seated rest recovers to 92%+ within 30 seconds, w/cues for deep breathing Functional Ability ADL's Declined sponge bath at this time. Donned pants w/SBA. Transfers CGA transfer wc -> bsc Modalities/Other Per Dr. Marshall, encourage pt to utilize incentive spirometer with goal of 2500 mL. Therapeutic Exercise Exercise Comment red t-band for endurance 2x10: chest pulls, D1 and D2 extension patterns Assessment/Plan Assessment Assessment Pt stood 3:27 3:36 before tiring, stats dropping to 89%, inc to 92% with cues for deep breaths Plan Plan ADLs, bed mobility, increase activity tolerance Time Started 10:25 Time Ended 11:05 Total Treatment Time (Min) (min) 40 Charge Sheet G-Code Therapies Protocol: REHAB.8MIN Therapeutic Exercise 2 Self Care/Home Management 1 Documentation Complete OT Charges/Documentation Finished? No Last Visit Is patient being discharged from OT No today? Preliminary Draft Until Electronically Signed by Supervising Therapist Addendum entered and electronically signed by Radha Botello OT 04/18/20 12:25: Pt required CGA-SBA for dynamic standing balance with UE support X 1 while engaging in task. Radha Botello OTR/L, CLT [facility] POC Glucometer Teston 2020 Glucose [Mass/Vol] 176 mg/dL High 70-99 [facility] Comment on above: Performed By: #### P OCGLUCOMETER #### [facility] [address] [place] [address] Glucose [Mass/Vol] 89 mg/dL Normal 70-99 [facility] Comment on above: Performed By: #### P OCGLUCOMETER ####[facility] [address] [place] [address] Glucose [Mass/Vol] 222 mg/dL High 70-99 [facility] Comment on above: Performed By: #### P OCGLUCOMETER ####[facility] [address] [place] [id number] Glucose [Mass/Vol] 185 mg/dL High 70-99 [facility] Comment on above: Performed By: #### P OCGLUCOMETER #### [facility] [address] [place] [id number] PT Rehab/Swing Daily Noteon 04-18-2020 PT Rehab/Swing Daily Note Physical Therapy PT Rehab/Swing Daily Note. Start: 04/13/20 08:19 Freq: Status: Active Protocol: Document 04/18/20 14:14 MW (Rec: 04/18/20 14:22 MW [id number]) General/Subjective General Date of Admission 04/12/20 Referring Provider Jim Marshall PT Visit # PM Diagnosis deconditio PT Treatment Diagnosis Other malaise Additional PT Treatment Diagnosis/ Medical Dx: physical Clarification deconditioning s/p hospitilization for COVID-19 pneumonia, bacterial pneumonia , acute respiratory failure with hypoxia Additional PT tx dx: difficulty walking (R26.2), other reduced mobility (Z74.09 ), generalized muscle weakness (Z74.09) Subjective Subjective Patient sitting on BSC upon arrival to room and states he needs assistance with cleaning self. Denies any new pain or complaints. Precautions Restrictions/Precauti ons fall risk, bed/chair alarms, supplemental O2 with oximask, recent loss of spouse, CHENEGA, wound on sacrum Objective Vital Signs Vitals at time of rehab vitals during tx session on 4L of O2: SpO2 at 88-97%, HR ranges from 67-82 BPM Mobility Transfers sit to stand from BSC: Katie with FWW; sit to stand from w/ c in room: CGA with FWW; sit to stand from w/c at // bars: 1x10 at CGA to Katie, verbal cues for head/trunk forward and hand placement for safe technique Balance sitting: [facility] standing dynamic: CGA with martita UE support; CGA to Katie without UE support when donning pants in standing Gait w/c mobility from room to therapy gym 75ft at [facility]; Amb 50ft (down/back multiple times ) at // bars with martita UE support and at [facility]; only 1 seated rest break; abnormal gait mechanics include decrease calixto, increase trunk flex, and unsteadiness; PT manages O2 tank/line to decrease fall risk Ambulation Distance (ft) (feet) 50 Endurance fair+ Rehab Education Education Provided Education Provided: Details Educated patient on importance of participating in functional activity out of bed (ambulating to bathroom vs. using BSC) Teaching Recipient Patient Teaching Method Verbal Response to Teaching Verbalize understanding Assessment and Plan Assessment Assessment Patient sitting on BSC and requires assistance to clean self in standing with martita UE support at W. He transfers over to w/c at [facility] and completes another sit to stand transfer then remains in standing to don pants at [facility] to Katie. He progressess to therapy gym via w/c at [facility] and therapist manages O2 tank/ line. Focused remainder of session on gait mechanics and sit to stand transfers at // bars as noted above to decrease fall risk with functional mobility. No LOB present but requires multiple rest breaks and constant verbal cues for breathing technique secondary to increase respiratory rate. SpO2 decrease to lowest at 88% during treatment session but recovers quickly. Educated patient on the need to ambulate short distances from bed <> bathroom to improve activity tolerance and patient verbalized understanding. Patient sitting in w/c in therapy gym at end of session waiting to work with OT. Disposition at end of Eval/Treatment Up in chair,Staff in room,All needs met Plan Plan Continue to progress standing tolerance and balance to decrease fall risk with short distance ambulation. Time Started 13:35 Time Ended 14:10 Total Treatment Time (Min) (min) 35 Timed Code Treatment Minutes (min) 35 Charge Sheet G-Code Therapies Protocol: REHAB.8MIN Therapeutic Activity 1 Gait Training 1 Documentation Complete PT Charges/Documentation Finished? Yes Last Visit Is patient being discharged from PT No today? Preliminary Draft Until Electronically Signed by Supervising Therapist [facility] PT Rehab/Swing Daily Note Physical Therapy PT Rehab/Swing Daily Note. Start: 04/13/20 08:19 Freq: Status: Active Protocol: Document 04/18/20 10:01 HMT (Rec: 04/18/20 10:25 HMT [id number]) General/Subjective General Date of Admission 04/12/20 Referring Provider Jim Marshall PT Visit # am Diagnosis deconditio PT Treatment Diagnosis Other malaise Additional PT Treatment Diagnosis/ Medical Dx: physical Clarification deconditioning s/p hospitilization for COVID-19 pneumonia, bacterial pneumonia , acute respiratory failure with hypoxia Additional PT tx dx: difficulty walking (R26.2), other reduced mobility (Z74.09 ), generalized muscle weakness (Z74.09) Subjective Subjective Pt notes is worried about getting up from surfaces at home and walking. Hopes to stay longer and is not ready to get home. Precautions Restrictions/Precauti ons fall risk, bed/chair alarms, supplemental O2 with oximask, recent loss of spouse, CHENEGA, wound on sacrum Objective Mobility Bed Mobility supine-sit lance with HOB elevated Transfers sit-stand from raised bed cga with verbal reminders to push up and not pull on ww supports , does not remember on own; LOB posterior requring cga to correct, cga for squat pivoting to nu-step, cueing to use hands support at all times Balance fair standing standing to work on pulling up pants x 1:30 oxygen at 84-91% , must sit to recover. Patient worked on dressing shirt and jacket as well at eob at sba, but oxygen dropped below 90%, given inhaler by RT as well. Gait ww 15 feet including turning cw to sit, sba once stnading as therapist brought oxygen tank. Endurance fair+ Strength/ROM (b) hip flex 3- to 3/5, hip add 4/5, hip abd 4-/5 Therapeutic Exercises Therapeutic Exercise nu-step L1(b) ue and teddy 9:30 at 47 spm, .23 miles, 88-92% oxygen on 3L with one rest break at 5:00 Exercise Tolerance Good Assessment and Plan Assessment Assessment Patient's oxygen is still dropping below 90% even with supplemental oxygen. Patient has weakness still in thighs which is limiting fucntional transfers. Did well with nu- step and would benefit from perfoing once daily. Disposition at end of Eval/Treatment Up in chair,Staff in room,All needs met Plan Plan Progress sit-standing activity and le strengthening as wella s balance. Time Started 09:30 Time Ended 10:15 Total Treatment Time (Min) (min) 45 Timed Code Treatment Minutes (min) 45 Charge Sheet G-Code Therapies Protocol: REHAB.8MIN Therapeutic Exercise 1 Therapeutic Activity 2 Documentation Complete PT Charges/Documentation Finished? Yes Last Visit Is patient being discharged from PT No today? Preliminary Draft Until Electronically Signed by Supervising Therapist [facility] C-Reactive Proteinon 021 CRP [Mass/Vol] mg/L Normal Less than 10 [facility] Comment on above: Performed By: #### C MP, MG, CRP, SILVINO ####[facility] [address] [place] [address] Complete Blood Count w/o Dif brandon 04-17-2020 Erythrocyte distribution width (RBC) [Ratio] 17.7 % High 11.5-14.5 [facility] Comment on above: Performed By: #### C BCND ####[facility] [address] [place], [place] [id number] Hematocrit (Bld) [Volume fraction] 30.6 % Low 37.5-50.1 [facility] Comment on above: Performed By: #### C BCND ####[facility] [address] [place], [place] [id number] Hemoglobin (Bld) [Mass/Vol] 9.9 g/dL Low 12.9-16.9 [facility] Comment on above: Performed By: #### C BCND ####[address] [address] MCH (RBC) [Entitic mass] 32.0 pg Normal 28.0-33.3 [facility] Comment on above: Performed By: #### C BCND ####[address] [address] MCH (RBC) [Entitic mass] 32.4 g/dL Normal 31.6-35.5 [facility] Comment on above: Performed By: #### C BCND ####[address] [address] MCV (RBC) [Entitic vol] 99.0 fL Normal 83.0-100.0 [facility] Comment on above: Performed By: #### C BCND ####[address] [address] Platelet mean volume (Bld) [Entitic vol] 12.1 fL Normal 9.4-12.4 [facility] Comment on above: Performed By: #### C BCND ####[address] [address] Platelets (Bld) [#/Vol] 103 K/mcL Low 140-400 [facility] Comment on above: Performed By: #### C BCND ####[address] [address] RBC (Bld) [#/Vol] 3.09 M/mcL Low 4.19-5.50 [facility] Comment on above: Performed By: #### C BCND ####[address] [address] WBC (Bld) [#/Vol] 9.2 K/mcL Normal 4.3-11.1 [facility] Comment on above: Performed By: #### C BCND ####[facility] [address] [place] [address] Comprehensive Metabolic Pane marquise 04-17-2020 Albumin [Mass/Vol] 2.6 g/dL Low 3.5-5.7 [facility] Comment on above: Performed By: #### C MP, MG, CRP, SILVINO ####[facility] [address] [place] [address] Albumin/Globulin [Mass ratio] 1.6 {ratio} Normal 1.1-2.2 [facility] Comment on above: Performed By: #### C MP, MG, CRP, SILVINO ####[address] [address] ALP [Catalytic activity/Vol] 69 Units/L Normal 34-104 [facility] Comment on above: Performed By: #### C MP, MG, CRP, SILVINO ####[address] [address] ALT [Catalytic activity/Vol] 22 Units/L Normal 7-52 [facility] Comment on above: Performed By: #### C MP, MG, CRP, SILVINO ####[address] [address] AST [Catalytic activity/Vol] 13 Units/L Normal 13-39 [facility] Comment on above: Performed By: #### C MP, MG, CRP, SILVINO ####[address] [address] Bilirubin [Mass/Vol] 0.7 mg/dL Normal 0.3-1.0 [facility] Comment on above: Performed By: #### C MP, MG, CRP, SILVINO ####[address] [address] Calcium [Mass/Vol] 8.5 mg/dL Low 8.6-10.3 [facility] Comment on above: Performed By: #### C MP, MG, CRP, SILVINO ####[place] [address] Chloride [Moles/Vol] 100 mmol/L Normal 98-107 [facility] Comment on above: Performed By: #### C MP, MG, CRP, SILVINO ####[place] [address] CO2 [Moles/Vol] 30 mmol/L High 23-29 [facility] Comment on above: Performed By: #### C MP, MG, CRP, SILVINO ####[place] [address] Creatinine [Mass/Vol] 0.55 mg/dL Low 0.70-1.30 [facility] Comment on above: Performed By: #### C MP, MG, CRP, SILVINO ####[place] [address] eGFR For Americans > 60 Normal > 60 [facility] Comment on above: Result Comment: eGFR = Estimated Glomerular Filtration Rate reported as mL/min/1.73 square meters Chronic Kidney Disease: < 60; Kidney failure: < 15 Performed By: #### C MP, MG, CRP, SILVINO ####[place] [address] eGFR For Non- Americans > 60 Normal > 60 [facility] Comment on above: Performed By: #### C MP, MG, CRP, SILVINO ####[place] [address] Globulin (S) [Mass/Vol] 1.6 g/dL Low 2.4-3.5 [facility] Comment on above: Performed By: #### C MP, MG, CRP, SILVINO ####[address] [address] Glucose [Mass/Vol] 105 mg/dL Normal 70-105 [facility] Comment on above: Performed By: #### C MP, MG, CRP, SILVINO ####[address] [address] Osmolality,Calculated 287 Normal 280-300 [facility] Comment on above: Performed By: #### C MP, MG, CRP, SILVINO ####[address] [address] Potassium [Moles/Vol] 3.9 mmol/L Normal 3.5-5.1 [facility] Comment on above: Performed By: #### C MP, MG, CRP, SILVINO ####[address] [address] Protein [Mass/Vol] 4.2 g/dL Low 6.4-8.9 [facility] Comment on above: Performed By: #### C MP, MG, CRP, SILVINO ####[address] [address] Sodium [Moles/Vol] 137 mmol/L Normal 136-145 [facility] Comment on above: Performed By: #### C MP, MG, CRP, SILVINO ####[address] [address] Urea nitrogen [Mass/Vol] 21 mg/dL Normal 8-23 [facility] Comment on above: Performed By: #### C MP, MG, CRP, SILVINO ####[address] [address] Urea nitrogen/Creatinine [Mass ratio] 38 mg/mg High 6-26 [facility] Comment on above: Performed By: #### C MP, MG, CRP, SILVINO ####[facility] [address] [place] [address] D-Dimeron 04-17-2020 D-Dimer 1799 ng/mLFEU High 0-500 [facility] Comment on above: Result Comment: A po sitive D-Dimer result does not predict a specific disease. Result should be interpreted in conjunction with the patient's medical history, clinical presentation, and other findings. Performed By: #### D D ####[facility] [address] [place] [address] Ferritinon 04-17-2020 Ferritin [Mass/Vol] 117 ng/mL Normal 20-250 [facility] Comment on above: Performed By: #### C MP, MG, CRP, SILVINO ####[facility] [address] [place] [id number] Internal Med Progress Noteon 04-17-2020 Internal Med Progress Note [facility] [address] [place] [address] Internal Med Progress Note Signed PRELIMINARY DRAFT REPORT UNTIL ELECTRONICALLY SIGNED PATIENT: Mick Cottrell MR#: [id number] : 1940 AGE/SEX: 79 / M ADMITTED: 04/12/20 1837 OUTSIDE LOCN: LOCATION: [address] ATTENDING: Jim Marshall MD cc: ; Date of Encounter: 04/17/20 Time of Encounter: 13:05 - Assessment and plan (1) Acute respiratory failure with hypoxia Current Visit: Yes Status: Acute Assessment and plan: Patient continues to require oxygen at 2?3 liters per Oxymizer mask to maintain saturations greater than 90%. Patient continues to saturate slightly during therapy but quickly recovers. Patient has been treated for both bacterial and Covid pneumonia. On a Decadron tapering dose, decreased to 2mg today. We will continue to maintain oxygen saturations greater than 90% by titration of oxygen (2) COVID-19 Current Visit: Yes Status: Acute Assessment and plan: No acute issues. Patient was first diagnosed with Covid on 03/05/20 and again on 03/28/20. Patient is currently no longer on isolation. Patient did receive, Carolin plasma and REM decimeter during his hospitalization in February. Patient has finished his course of antibiotics for secondary bacterial pneumonia. Decrease his Decadron to 2mg today. Patient's inflammatory markers continue to trend down. We will continue with therapy (3) Diabetes mellitus Current Visit: Yes Status: Chronic Assessment and plan: Patients glucose has been fairly well-controlled most readings less than 250. Patient's most recent A1c is 7.6 from 04/08/20. We will continue with his sliding scale coverage and metformin Qualifiers: Diabetes mellitus type: type 2 Diabetes mellitus ranch hand insulin use: without ranch hand use Diabetes mellitus complication status: without complication Qualified Code(s): E11.9 - Type 2 diabetes mellitus without complications (4) COPD (chronic obstructive pulmonary disease) Current Visit: Yes Status: Chronic Assessment and plan: No acute issues. Patient continues to require oxygen to maintain saturation greater than 90%. Patient has been treated for bacterial pneumonia and has finished his course. We will continue with his current cortical steroids and bronchodilators Qualifiers: COPD type: unspecified COPD Qualified Code(s): J44.9 - Chronic obstructive pulmonary disease, unspecified (5) HTN (hypertension) Current Visit: Yes Status: Chronic Assessment and plan: No acute issues. Vital signs stable. We will continue with current medications Qualifiers: Hypertension type: essential hypertension Qualified Code(s): I10 - Essential (primary) hypertension (6) BPH (benign prostatic hyperplasia) Current Visit: Yes Status: Chronic Assessment and plan: No current issues. Patient denies any hesitation or nocturia. We will continue with his Proscar Qualifiers: Lower urinary tract symptom presence: symptoms absent Qualified Code(s): N40.0 - Benign prostatic hyperplasia without lower urinary tract symptoms (7) Systolic heart failure Current Visit: No Status: Chronic Assessment and plan: Patient denies any chest discomforts or palpitations. No pedal edema noted. We will continue with his current daily Lasix. Patient also on aspirin, Lipitor and metoprolol Qualifiers: Heart failure chronicity: chronic Qualified Code(s): I50.22 - Chronic systolic (congestive) heart failure (8) GERD (gastroesophageal reflux disease) Current Visit: Yes Status: Chronic Assessment and plan: Patient denies any reflux or epigastric discomforts. We will continue on his current PPI Qualifiers: Esophagitis presence: with esophagitis Esophagitis bleeding: without hemorrhage Qualified Code(s): K21.00 - Gastro-esophageal reflux disease with esophagitis, without bleeding (9) Paroxysmal atrial fibrillation Current Visit: No Status: Acute Assessment and plan: No current issues. Patient's heart rate has been well controlled with ventricular rate less than 100. We will continue with his metoprolol and Xarelto (10) Constipation Current Visit: Yes Status: Acute Assessment and plan: Plan no BM in 3 days. We will give a Dulcolax 10 mg tab by mouth now. We will start on senna and Colace twice a day. Abdomen appears nonacute on exam. Patient denies any abdominal cramping and states that he is passing flatus Qualifiers: Constipation type: unspecified constipation type Qualified Code(s): K59.00 - Constipation, unspecified - Time Spent With Patient 25 - 35 minutes - Subjective Interval history: Mr. Cottrlel is a 79 year old male with known past medical history of HFpEF, COPD, CVA, A-Fib, HTN, DM2, BPH who was admitted at [facility] on 03/05 with cough, SOB, and malaise for 5 days. Hospital course complicated by development of new A-Fib RVR as well as acute metabolic encephalopathy. Patient was placed on supplemental O2 and required up to HHFNC at 40L/60%. Patient was given high dose dexamethasone, transfusion of convalescent plasma, and course of remdesivir, with eventual improvement in his symptoms and oxygenation. He was transferred to our [facility] during that hospitalization as lateral transfer to continue his further acute medical care and eventually transitioning him to swing bed for his physical deconditioning. When he was in rehab facility one day he became more hypoxic with worsening respiratory failure. He got readmitted at [facility] on 03/28/2020 with acute hypoxic resp failure due to multi focal pneumonia. He happened to have hemoptysis too. He was evaluated by Technical Planner who held his anti coag Eliquis and continued IV Decadran and empirical abx Levaquin. His hemoptysis resolved and his oxygen requirement came down to 4-6 lit now. Due to bed crunch for Covid positive patients at [facility] he was sent to our facility [facility] as lateral trasnfer to continue further medical care and possible rehab when he becomes more medic ally stable. We continued his Decadron and other supportive measures. His symptoms imroved and able to participate in rehab. He was transferred to rehab facility. Patient appears relaxed currently denies any discomforts or shortness of breath. Patient has had complaints of constipation stating he has not had a bowel movement in 3 days. He denies any abdominal cramping and states that he has been seeing platelets. Patient states he continues to become winded and desaturates during exertion of therapy but quickly recovers. He remains on 2?3 liters of oxygen per oxygen mask. Patient's labs are reviewed with most recent hemoglobin at 9.9. Patient showing mild thrombocytopenia with a platelet count 103. Patient continues to have elevated d-dimer at 1799. Patient's serum bicarbonate is 30. Patient's glucoses been fairly well-controlled with most readings less than 250 - Constitutional Vitals: Temp Pulse Resp BP Pulse Ox 97.8 F 58 19 141/70 99 04/17/20 07:09 04/17/20 07:09 04/17/20 09:25 04/17/20 07:09 04/17/20 09:25 General appearance: Present: cooperative, A O X 3, no acute distress, answers questions appropriately - Head Head exam: Present: atraumatic, normocephalic - Eye Eye exam: Present: PERRL, conjuntiva pink, sclera anicteric Pupils: Present: PERRL - Neck Neck exam general surgery: Present: supple, trachea midline. Absent: lymphadenopathy - Respiratory Respiratory exam: Present: decreased breath sounds, CTAB. Absent: accessory muscle use, rales, rhonchi, wheezes Additional comments: Respiratory effort appears relaxed at 22/m. Oxygen saturations greater than 90% while on 2 L of oxygen. Lungs are clear throughout - Cardiovascular Cardiovascular exam: Present: RRR, +S1, +S2. Absent: diastolic murmur, gallop, rubs, systolic murmur - GI/Abdominal GI/Abdominal exam: Present: normal bowel sounds, soft, no peritoneal signs. Absent: distended, tenderness - Extremities Exam Extremities exam: Present: warm, radial pulses palpable and symmetrical. Absent: calf tenderness, cyanotic, pedal edema - Neurological Exam Neurological exam: Present: CN II-XII intact, oriented X3, no focal deficits. Absent: pronater drift, facial droop, speech deficit - Skin Skin exam: Present: dry, intact Internal Medicine: Result - Labs CBC Chem 7: 04/17/20 05:28 04/17/20 05:28 Labs: Short CBC 04/17/20 Range/Units 05:28 WBC 9.2 (4.3-11.1) K/mcL Hgb 9.9 L (12.9-16.9) g/dL Hct 30.6 L (37.5-50.1) % Plt Count 103 L (140-400) K/mcL BMP 04/17/20 05:28 Sodium 137 Potassium 3.9 Chloride 100 Carbon Dioxide 30 H BUN 21 Creatinine 0.55 L Glucose 105 Calcium 8.5 L Liver Function 04/17/20 Range/Units 05:28 Total Bilirubin 0.7 (0.3-1.0) mg/dL AST 13 (13-39) Units/L ALT 22 (7-52) Units/L Alkaline Phosphatase 69 (34-104) Units/L Albumin 2.6 L (3.5-5.7) g/dL - ABG Interpretation ABG results: PT/INR, D-dimer D-Dimer 1799 ng/mLFEU (0-500) H 04/17/20 05:28 Consult Discharge Plan - Plan Referrals: Jim Marshall MD [Primary Care Provider] - Documented By: Jenaro Morales CNP Signed By: 04/17/20 1313 DD/ 1305 Initialized By: [id number] [facility] Magnesiumon 04-17-2020 Magnesium [Mass/Vol] 1.5 mg/dL Low 1.6-2.6 [facility] Comment on above: Performed By: #### C MP, MG, CRP, SILVINO ####[facility] [address] [place], [place] [id number] POC Glucometer Teston 2020 Glucose [Mass/Vol] 215 mg/dL High 70-99 [facility] Comment on above: Performed By: #### P OCGLUCOMETER #### [facility] [address] [place] [address] Glucose [Mass/Vol] 211 mg/dL High 70-99 [facility] Comment on above: Result Comment: Glu2 : RN Notified Performed By: #### P OCGLUCOMETER ####[facility] [address] [place], [place] [id number] Glucose [Mass/Vol] 101 mg/dL High 70-99 [facility] Comment on above: Result Comment: Glu2 : RN Notified Performed By: #### P OCGLUCOMETER #### [facility] [address], [place] [id number] OT Swing/Rehab Daily Noteon 04-16-2020 OT Swing/Rehab Daily Note Occupational Therapy OT Rehab/Swing Daily Note Start: 04/13/20 11:04 Freq: Status: Active Protocol: Document 04/16/20 12:54 [facility] (Rec: 04/16/20 12:58 [facility] [id number]) General/Subjective General Referring Provider Jim Marshall OT Visit # am Diagnosis deconditio OT Treatment Diagnosis Muscle weakness (generalized) Additional OT Treatment Diagnosis/ Dx: Physical deconditioning s/ Clarification p hospitilization for COVID-19 pneumonia, bacterial pneumonia, acute respiratory failure with hypoxia Subjective Subjective With encouragement, pt agreeable to participate. No pain complaints. Reports frustration with BLE weakness. Restrictions Weight Bearing Restrictions/Precauti ons fall risk, bed/chair alarms, supplemental O2 with oximask, recent loss of spouse, CHENEGA, wound on sacrum Objective Vital Signs Vitals at time of rehab 3L supplemental O2 throughout, drops as low as 84% with standing tasks oximask donned or oximask doffed seated for UB sponge bathing/dressing. With redonning or seated rest recovers to 90%+ within 30 seconds Functional Ability ADL's UB sponge bathing/dressing setup/SBA, SPO2 drops to 84% with oximask doffed, educated pt to redonn mask during sponge bathing tasks to decrease time doffed. LB sponge bathing CGA in standing for bottom/elida area. Donns LB clothing setup/CGA in standing. Transfers CGA sit <-> stand from EOB x2 attempts, CGA stand pivot to bedside chair, cues to reach back, uncontrolled sit noted Assessment/Plan Assessment Assessment Pt declines further activity. Plan Plan ADLs, bed mobility, increase activity tolerance Time Started 11:30 Time Ended 11:45 Total Treatment Time (Min) (min) 15 Charge Sheet G-Code Therapies Protocol: REHAB.8MIN Self Care/Home Management 1 Documentation Complete OT Charges/Documentation Finished? Yes Last Visit Is patient being discharged from OT No today? Preliminary Draft Until Electronically Signed by Supervising Therapist [facility] POC Glucometer Teston 2020 Glucose [Mass/Vol] 160 mg/dL High 70-99 [facility] Comment on above: Performed By: #### P OCGLUCOMETER #### [facility] [address] [place] [address] Glucose [Mass/Vol] 177 mg/dL High 70-99 [facility] Comment on above: Performed By: #### P OCGLUCOMETER #### [facility] [address] [place] [address] Glucose [Mass/Vol] 188 mg/dL High 70-99 [facility] Comment on above: Performed By: #### P OCGLUCOMETER ####[facility] [address] [place] [address] Glucose [Mass/Vol] 146 mg/dL High 70-99 [facility] Comment on above: Performed By: #### P OCGLUCOMETER #### [facility] [address] [place] [address] Glucose [Mass/Vol] 221 mg/dL High 70-99 [facility] Comment on above: Performed By: #### P OCGLUCOMETER ####[facility] [address] [place] [address] Glucose [Mass/Vol] 201 mg/dL High 70-99 [facility] Comment on above: Performed By: #### P OCGLUCOMETER #### [facility] [address] [place] [address] Glucose [Mass/Vol] 178 mg/dL High 70-99 [facility] Comment on above: Performed By: #### P OCGLUCOMETER ####[facility] [address] [place] [address] PT Rehab/Swing Daily Noteon 04-16-2020 PT Rehab/Swing Daily Note Physical Therapy PT Rehab/Swing Daily Note. Start: 04/13/20 08:19 Freq: Status: Active Protocol: Document 04/16/20 10:36 ERW (Rec: 04/16/20 11:01 ERW [id number]) General/Subjective General Date of Admission 04/12/20 Referring Provider Jim Marshall PT Visit # am Subjective Subjective Pt reports no pain this am. Pt reports LE weakness. Pt states he slept well last PM Objective Mobility Bed Mobility Independent supine <-> sit Transfers Min a with RW Balance Fair-/Poor+ with RW Gait Min a Ambulation Distance (ft) (feet) 20 Endurance Poor. SOB and fatigue with activity needing frequent rest breaks. Other 20' x 2 Therapeutic Exercises Therapeutic Exercise 2 x 10 Supine SKTC, SLR, Hip abd/add, Quad sets and Ankle df/pf. Note increased SOB with exertion with 3L O2 in place. Moderate rest inbetween with VC's for pursed lip breathing. Exercise Tolerance Fair Assessment and Plan Assessment Assessment Pt ayde tx well. Required multiple rest breaks. SOB with exertion. Pt fearful of falling. Completed strengthening ex, bed mob, transfers and gait. Pt will cont improvement in these areas with further PT intervention. Plan Plan Cont POC per PT Time Started 10:30 Time Ended 11:00 Total Treatment Time (Min) (min) 30 Charge Sheet G-Code Therapies Protocol: REHAB.8MIN Therapeutic Exercise 1 Gait Training 1 Documentation Complete PT Charges/Documentation Finished? Yes Preliminary Draft Until Electronically Signed by Supervising Therapist Normal [facility] Internal Med Progress Noteon 04-15-2020 Internal Med Progress Note [facility] [address] [place] [address] Internal Med Progress Note Signed PRELIMINARY DRAFT REPORT UNTIL ELECTRONICALLY SIGNED PATIENT: Mick Cottrell MR#: [id number] : 1940 AGE/SEX: 79 / M ADMITTED: 04/12/20 1837 OUTSIDE LOCN: LOCATION: [address] ATTENDING: Jim Marshall MD cc: ; Date of Encounter: 04/15/20 Time of Encounter: 13:55 - Assessment and plan (1) Acute respiratory failure with hypoxia Current Visit: Yes Status: Acute Assessment and plan: Patient continues to require oxygen at 2?3 liters per Oxymizer mask to maintain saturations greater than 90%. Patient continues to saturate slightly during therapy but quickly recovers. Patient has been treated for both bacterial and Coban pneumonia. On a Decadron tapering dose. We will continue to maintain oxygen saturations greater than 90% by titration of oxygen (2) COVID-19 Current Visit: Yes Status: Acute Assessment and plan: No acute issues. Patient was first diagnosed with Covid on 03/05/20 and again on 03/28/20. Patient is currently no longer on isolation. Patient did receive, Carolin plasma and REM decimeter during his hospitalization in February. Patient has finished his course of antibiotics for secondary bacterial pneumonia. Patient's inflammatory markers continue to trend down. We will continue with therapy (3) Diabetes mellitus Current Visit: Yes Status: Chronic Assessment and plan: Patients glucose has been fairly well-controlled most readings less than 250. Patient's most recent A1c is 7.6 from 04/08/20. We will continue with his sliding scale coverage and metformin Qualifiers: Diabetes mellitus type: type 2 Diabetes mellitus snf insulin use: without snf use Diabetes mellitus complication status: without complication Qualified Code(s): E11.9 - Type 2 diabetes mellitus without complications (4) COPD (chronic obstructive pulmonary disease) Current Visit: Yes Status: Chronic Assessment and plan: No acute issues. Patient continues to require oxygen to maintain saturation greater than 90%. Patient has been treated for bacterial pneumonia and has finished his course. We will continue with his current cortical steroids and bronchodilators Qualifiers: COPD type: unspecified COPD Qualified Code(s): J44.9 - Chronic obstructive pulmonary disease, unspecified (5) HTN (hypertension) Current Visit: Yes Status: Chronic Assessment and plan: No acute issues. Vital signs stable. We will continue with current medications Qualifiers: Hypertension type: essential hypertension Qualified Code(s): I10 - Essential (primary) hypertension (6) BPH (benign prostatic hyperplasia) Current Visit: Yes Status: Chronic Assessment and plan: No current issues. Patient denies any hesitation or nocturia. We will continue with his Proscar Qualifiers: Lower urinary tract symptom presence: symptoms absent Qualified Code(s): N40.0 - Benign prostatic hyperplasia without lower urinary tract symptoms (7) Systolic heart failure Current Visit: No Status: Chronic Assessment and plan: Patient denies any chest discomforts or palpitations. No pedal edema noted. We will continue with his current daily Lasix. Patient also on aspirin, Lipitor and metoprolol Qualifiers: Heart failure chronicity: chronic Qualified Code(s): I50.22 - Chronic systolic (congestive) heart failure (8) GERD (gastroesophageal reflux disease) Current Visit: Yes Status: Chronic Assessment and plan: Patient denies any reflux or epigastric discomforts. We will continue on his current PPI Qualifiers: Esophagitis presence: with esophagitis Esophagitis bleeding: without hemorrhage Qualified Code(s): K21.00 - Gastro-esophageal reflux disease with esophagitis, without bleeding (9) Paroxysmal atrial fibrillation Current Visit: No Status: Acute Assessment and plan: No current issues. Patient's heart rate has been well controlled with ventricular rate less than 100. We will continue with his metoprolol and Xarelto - Time Spent With Patient 25 - 35 minutes - Subjective Interval history: Mr. Cottrell is a 79 year old male with known past medical history of HFpEF, COPD, CVA, A-Fib, HTN, DM2, BPH who was admitted at [facility] on 03/05 with cough, SOB, and malaise for 5 days. Hospital course complicated by development of new A-Fib RVR as well as acute metabolic encephalopathy. Patient was placed on supplemental O2 and required up to HHFNC at 40L/60%. Patient was given high dose dexamethasone, transfusion of convalescent plasma, and course of remdesivir, with eventual improvement in his symptoms and oxygenation. He was transferred to our [facility] during that hosp italization as lateral transfer to continue his further acute medical care and eventually transition ing him to swing bed for his physical deconditioning. When he was in rehab facility one day he becam e more hypoxic with worsening respiratory failure. He got readmitted at [facility] on 03/28/2020 with acute hypoxic resp failure due to multi focal pneumonia. He happened to have hemoptysis too. He was evalu ated by Technical Planner who held his anti coag Eliquis and continued IV Decadran and empirical abx Lev aquin. His hemoptysis resolved and his oxygen requirement came down to 4-6 lit now. Due to bed crunc h for Covid positive patients at [facility] he was sent to our facility [facility] as lateral trasnfer to contin ue further medical care and possible rehab when he becomes more medically stable. We continued his D ecadron and other supportive measures. His symptoms imroved and able to participate in rehab. He was transferred to rehab facility. Patient appears relaxed currently denies any discomforts or shortness of breath. Patient states he continues to become winded and desaturates during exertion of therapy but quickly recovers. He remains on 2?3 liters of oxygen per oxygen mask. Patient's labs are reviewed with most recent hemoglobin at 10.2. Patient showing mild thrombocytopenia with a platelet count 121. Patient continues to have elevated d-dimer at 3324. Patient's serum bicarbonate is 31. Patient's glucoses been fairly well-controlled with most readings less than 250 - Constitutional Vitals: Temp Pulse Resp BP Pulse Ox 97.2 F L 66 20 137/75 91 04/15/20 07:25 04/15/20 07:25 04/15/20 10:10 04/15/20 07:25 04/15/20 10:10 General appearance: Present: cooperative, A O X 3, no acute distress, answers questions appropriately - Head Head exam: Present: atraumatic, normocephalic - Eye Eye exam: Present: PERRL, conjuntiva pink, sclera anicteric Pupils: Present: PERRL - Neck Neck exam general surgery: Present: supple, trachea midline. Absent: lymphadenopathy - Respiratory Respiratory exam: Present: decreased breath sounds, CTAB. Absent: accessory muscle use, rales, rhonchi, wheezes - Cardiovascular Cardiovascular exam: Present: RRR, +S1, +S2. Absent: diastolic murmur, gallop, rubs, systolic murmur - GI/Abdominal GI/Abdominal exam: Present: normal bowel sounds, soft, no peritoneal signs. Absent: distended, tenderness - Extremities Exam Extremities exam: Present: warm, radial pulses palpable and symmetrical. Absent: calf tenderness, cyanotic, pedal edema - Neurological Exam Neurological exam: Present: CN II-XII intact, oriented X3, no focal deficits. Absent: pronater drift, facial droop, speech deficit - Skin Skin exam: Present: dry, intact Internal Medicine: Result - Labs CBC Chem 7: 04/14/20 05:49 04/14/20 05:49 - ABG Interpretation ABG results: PT/INR, D-dimer D-Dimer 3324 ng/mLFEU (0-500) H 04/14/20 05:49 Consult Discharge Plan - Plan Referrals: Jim Marshall MD [Primary Care Provider] - Documented By: Jenaro Morales ACTIVITY THERAPY SPECIALIST Signed By: 04/15/20 1407 DD/ 1354 Initialized By: [id number] [facility] OT Swing/Rehab Daily Noteon 04-15-2020 OT Swing/Rehab Daily Note Occupational Therapy OT Rehab/Swing Daily Note Start: 04/13/20 11:04 Freq: Status: Active Protocol: Document 04/15/20 13:49 KMB (Rec: 04/15/20 13:56 KMB [id number]) General/Subjective General Referring Provider Jim Marshall OT Visit # pm Diagnosis deconditio OT Treatment Diagnosis Muscle weakness (generalized) Additional OT Treatment Diagnosis/ Dx: Physical deconditioning s/ Clarification p hospitilization for COVID-19 pneumonia, bacterial pneumonia, acute respiratory failure with hypoxia Subjective Subjective pt in bed, stating he just got there. engageble with outline of afternoon schedule. pt tearful over recent loss of (02/2020) and just wants to be well enough to walk to her grave to see it for the first time. engaging in banter in gym. Pt having PT after this session. Restrictions Weight Bearing Restrictions/Precauti ons fall risk, bed/chair alarms, supplemental O2 with oximask, recent loss of spouse, CHENEGA, wound on sacrum Objective Vital Signs Vitals at time of rehab using 3L O2. lowest O2 at 86% momentariliy and resolve < 10 seconds. all other spot checks > 94% Functional Ability ADL's able to adjust underwear while standing cga Bed Mobility standby supine to sit Transfers cga w/ gait belt bed to w/c Modalities/Other Per Dr. Marshall, encourage pt to utilize incentive spirometer with goal of 2500 mL. Therapeutic Exercise Exercise Comment red t-band for endurance 3x10: chest pulls, D1 and D2 extension patterns Rehab Education Education Provided Education Provided: Details as above Assessment/Plan Assessment Assessment mobility improve, cont challenge endurance, O2 sats staying > 90% except once Plan Plan ADLs, bed mobility, increase activity tolerance Time Started 13:05 Time Ended 13:30 Total Treatment Time (Min) (min) 25 Charge Sheet G-Code Therapies Protocol: REHAB.8MIN Therapeutic Exercise 1 Therapeutic Activity 1 Documentation Complete OT Charges/Documentation Finished? Yes Preliminary Draft Until Electronically Signed by Supervising Therapist [facility] OT Swing/Rehab Daily Note Occupational Therapy OT Rehab/Swing Daily Note Start: 04/13/20 11:04 Freq: Status: Active Protocol: Document 04/15/20 11:52 [facility] (Rec: 04/15/20 12:02 [facility] [id number]) General/Subjective General Referring Provider Jim Marshall OT Visit # n/a Diagnosis deconditio OT Treatment Diagnosis Muscle weakness (generalized) Additional OT Treatment Diagnosis/ Dx: Physical deconditioning s/ Clarification p hospitilization for COVID-19 pneumonia, bacterial pneumonia, acute respiratory failure with hypoxia Restrictions Weight Bearing Restrictions/Precauti ons fall risk, bed/chair alarms, supplemental O2 with oximask, recent loss of spouse, CHENEGA, wound on sacrum Assessment/Plan Assessment Progression Toward Goals Weekly Progress Note: LTGs: 1. Progressing - UB setup assist with cues for managing supplemental oxygen, LB minimal to moderate assistance overall. Significant rest breaks required throughout. 2. Progressing - current score 21 3. Progressing - currently tolerating red theraband 4. Progressing - significant rest breaks required, tolerating 30 minute ADL sessions. 5. Progressing - currently standby assistance for supine -> EOB with HOB elevated and use of bed rail, moderate assistance for EOB -> supine. Overall, pt is making good progress toward goals in occupational therapy thus far. Pt is increasing participation in ADL tasks. Continues to require setup of all ADL supplies, fatigues quickly with transfers and mobility. Plan Plan ADLs, bed mobility, increase activity tolerance Charge Sheet G-Code Documentation Complete OT Charges/Documentation Finished? Yes Last Visit Is patient being discharged from OT No today? Preliminary Draft Until Electronically Signed by Supervising Therapist [facility] OT Swing/Rehab Daily Note Occupational Therapy OT Rehab/Swing Daily Note Start: 04/13/20 11:04 Freq: Status: Active Protocol: Document 04/15/20 11:45 [facility] (Rec: 04/15/20 11:51 [facility] [id number]) General/Subjective General Referring Provider Jim Marshall OT Visit # am Diagnosis deconditio OT Treatment Diagnosis Muscle weakness (generalized) Additional OT Treatment Diagnosis/ Dx: Physical deconditioning s/ Clarification p hospitilization for COVID-19 pneumonia, bacterial pneumonia, acute respiratory failure with hypoxia Subjective Subjective Pt initially declining to participate in ADL tasks. Provided education on importance of participation in ADL tasks to maximize endurance for adequate self care upon d/c. Pt then agreeable to participate. No pain complaints. Restrictions Weight Bearing Restrictions/Precauti ons fall risk, bed/chair alarms, supplemental O2 with oximask, recent loss of spouse, CHENEGA, wound on sacrum Objective Vital Signs Vitals at time of rehab 3L supplemental O2 throughout. SPO2 89%+ throughout ADL tasks. Functional Ability ADL's Seated EOB, UB sponge bathing setup, assist for back only. UB dressing setup assist only. Pt does require verbal cues to redonn oximask to minimize time without supplemental O2. LB sponge bathing declined, pt reports showered yesterday. LB dressing min A to thread LLE, CGA in standing to pull up. Footwear not addressed this morning. Bed Mobility Supine -> EOB SBA with use of bed rail and elevated HOB Transfers Min/mod A sit <-> stand from EOB and stand pivot from EOB - > bedside chair Modalities/Other Per Dr. Marshall, encourage pt to utilize incentive spirometer with goal of 2500 mL. Pt agreeable to get up to bedside chair and sit up through lunch time. Utilized incentive spirometer x10 with OT achieving 1,000. Assessment/Plan Assessment Assessment Pt progressing with activity tolerance. Continues to require significant rest breaks during basic ADL routine and setup of supplies. Plan Plan ADLs, bed mobility, increase activity tolerance Time Started 10:55 Time Ended 11:30 Total Treatment Time (Min) (min) 35 Charge Sheet G-Code Therapies Protocol: REHAB.8MIN Self Care/Home Management 2 Documentation Complete OT Charges/Documentation Finished? Yes Last Visit Is patient being discharged from OT No today? Preliminary Draft Until Electronically Signed by Supervising Therapist Normal [facility] POC Glucometer Teston 2020 Glucose [Mass/Vol] 143 mg/dL High 70-99 [facility] Comment on above: Performed By: #### P OCGLUCOMETER ####[facility] [address] [place], [place] [id number] Glucose [Mass/Vol] 218 mg/dL High 70-99 [facility] Comment on above: Performed By: #### P OCGLUCOMETER #### [facility] [address] [place] [address] PT Rehab/Swing Daily Noteon 04-15-2020 PT Rehab/Swing Daily Note Physical Therapy PT Rehab/Swing Daily Note. Start: 04/13/20 08:19 Freq: Status: Active Protocol: Document 04/15/20 09:41 HMT (Rec: 04/15/20 10:24 HMT [id number]) General/Subjective General Date of Admission 04/12/20 Referring Provider Jim Marshall PT Visit # n/a Diagnosis deconditio PT Treatment Diagnosis Other malaise Additional PT Treatment Diagnosis/ Medical Dx: physical Clarification deconditioning s/p hospitilization for COVID-19 pneumonia, bacterial pneumonia , acute respiratory failure with hypoxia Additional PT tx dx: difficulty walking (R26.2), other reduced mobility (Z74.09 ), generalized muscle weakness (Z74.09) Subjective Subjective Pt asks is legs will ever get stronger and walking will ever come back. Precautions Restrictions/Precauti ons fall risk, bed/chair alarms, supplemental O2 with oximask, recent loss of spouse, CHENEGA, wound on sacrum Objective Mobility Bed Mobility supine-sit and sit-supine sba- LANCE, rest break due to fatigue either laying or seated at EOB Transfers am: sit-stand from lower w/c mod -max assist, from raised w /c surfaces min-mod, cueing to push up from w/c at // bars and not pull on bar pm: sit-stand from w/c min-mod assist, cueing to push up from chair using arms Balance seated eob I, standing static with ue support sba, dynamic cga Gait am: wwr 18 feet with therapist bringing supplemental oxygen; cga-sba with flexed posture and step through gait pattern, no LOB noted ut very low endurance and tolerance for longer gait. pm: 15 feet x 2, same posture and assistance as noted above. Endurance fair Strength/ROM (b) hip flex 4/5, quad 4-/5 impaired arom hip flexion Therapeutic Exercises Therapeutic Exercise am: worked on standing interval training: :15 activity; :15 rest x 2 reps before sitting to recvoer; 3 times total standing // bars: rocking from l to r le while working on upright posture and breahting techniques, verbal cueing to stand and not sit prior to interval ending pm: sit-stand from raised mat: x5, then rest break, and x 2, cga but cueing throughout to push up from mat and to not oull up on ww; patien not able to carry over techniques even though cued. Exercise Tolerance Fair Exercise Comment oxygen saturations in pm 94-97 % on supplemental oxygen with exercises Rehab Education Education Provided Education Provided: Details sit-stand transfers, reviewed techniques in am and pm Teaching Recipient Patient Teaching Method Verbal,Demonstration Response to Teaching Return demonstration,Verbali ze understanding,Reinfor cement needed Assessment and Plan Assessment Assessment Weekly note: Patient has been able to improve activity participation and out of room therapy sessions this week. Patient still has shallow and quick breaths, but today with standing activity, maintained oxygen sats on 3L at 91% or greater. Pt does require many rest breaks during activity, and is having most difficult time with sit-stand transfers, cannot get CHINMAY over COG and extend knees. Need to continue to work on walking, standing tolerance and le power to get up with less assistance. Cannot carry over verbalized and practiced education into functional movements. Disposition at end of Eval/Treatment Up in chair,Bed Alarm,Call light/phone within reach,Tray table within reach,All needs met Plan Plan am: Progress strengthening of muscles of hips and thighs, gait activities. Time Started 13:35 Time Ended 14:00 Total Treatment Time (Min) (min) 70 Timed Code Treatment Minutes (min) 70 Charge Sheet G-Code Therapies Protocol: REHAB.8MIN Therapeutic Exercise 1 Therapeutic Activity 3 Gait Training 1 Documentation Complete PT Charges/Documentation Finished? Yes Last Visit Is patient being discharged from PT No today? Preliminary Draft Until Electronically Signed by Supervising Therapist [facility] Basic Metabolic Panelon 03-26 Calcium [Mass/Vol] 8.6 mg/dL Normal 8.6-10.3 [facility] Comment on above: Performed By: #### B MP ####[address] [address] Chloride [Moles/Vol] 99 mmol/L Normal 98-107 [facility] Comment on above: Performed By: #### B MP ####[address] [address] CO2 [Moles/Vol] 31 mmol/L High 23-29 [facility] Comment on above: Performed By: #### B MP ####[address] [address] Creatinine [Mass/Vol] 0.62 mg/dL Low 0.70-1.30 [facility] Comment on above: Performed By: #### B MP ####[address] [address] eGFR For Americans > 60 Normal > 60 [facility] Comment on above: Result Comment: eGFR = Estimated Glomerular Filtration Rate reported as mL/min/1.73 square meters Chronic Kidney Disease: < 60; Kidney failure: < 15 Performed By: #### B MP ####[address] [address] eGFR For Non- Americans > 60 Normal > 60 [facility] Comment on above: Performed By: #### B MP ####[address] [address] Glucose [Mass/Vol] 89 mg/dL Normal 70-105 [facility] Comment on above: Performed By: #### B MP ####[facility] [address] [place] [address] Osmolality,Calculated 285 Normal 280-300 [facility] Comment on above: Performed By: #### B MP ####[address] [address] Potassium [Moles/Vol] 4.0 mmol/L Normal 3.5-5.1 [facility] Comment on above: Performed By: #### B MP ####[address] [address] Sodium [Moles/Vol] 135 mmol/L Low 136-145 [facility] Comment on above: Performed By: #### B MP ####[address] [address] Urea nitrogen [Mass/Vol] 28 mg/dL High 8-23 [facility] Comment on above: Performed By: #### B MP ####[address] [address] Urea nitrogen/Creatinine [Mass ratio] 45 mg/mg High 6-26 [facility] Comment on above: Performed By: #### B MP ####[address] [address] C-Reactive Proteinon 021 CRP [Mass/Vol] mg/L Normal Less than 10 [facility] Comment on above: Performed By: #### C RP, SILVINO ####[address] [address] Complete Blood Count w/o Dif brandon 04-14-2020 Erythrocyte distribution width (RBC) [Ratio] 17.3 % High 11.5-14.5 [facility] Comment on above: Performed By: #### C BCND ####[address] [address] Hematocrit (Bld) [Volume fraction] 31.6 % Low 37.5-50.1 [facility] Comment on above: Performed By: #### C BCND ####[address] [address] Hemoglobin (Bld) [Mass/Vol] 10.2 g/dL Low 12.9-16.9 [facility] Comment on above: Performed By: #### C BCND ####[address] [address] MCH (RBC) [Entitic mass] 31.4 pg Normal 28.0-33.3 [facility] Comment on above: Performed By: #### C BCND ####[address] [address] MCH (RBC) [Entitic mass] 32.3 g/dL Normal 31.6-35.5 [facility] Comment on above: Performed By: #### C BCND ####[address] [address] MCV (RBC) [Entitic vol] 97.2 fL Normal 83.0-100.0 [facility] Comment on above: Performed By: #### C BCND ####[address] [address] Platelet mean volume (Bld) [Entitic vol] 11.4 fL Normal 9.4-12.4 [facility] Comment on above: Performed By: #### C BCND ####[address] [address] Platelets (Bld) [#/Vol] 121 K/mcL Low 140-400 [facility] Comment on above: Performed By: #### C BCND ####[facility] [address] [place], [place] [id number] RBC (Bld) [#/Vol] 3.25 M/mcL Low 4.19-5.50 [facility] Comment on above: Performed By: #### C BCND ####[facility] [address] [place] [address] [id number] WBC (Bld) [#/Vol] 10.4 K/mcL Normal 4.3-11.1 [facility] Comment on above: Performed By: #### C BCND ####[facility] [address] [place] [address] [id number] D-Dimeron 04-14-2020 D-Dimer 3324 ng/mLFEU High 0-500 [facility] Comment on above: Result Comment: A po sitive D-Dimer result does not predict a specific disease. Result should be interpreted in conjunction with the patient's medical history, clinical presentation, and other findings. Performed By: #### P OCGLUCOMETER #### [facility] [address], [place] [phone] Ferritinon 04-14-2020 Ferritin [Mass/Vol] 101 ng/mL Normal 20-250 [facility] Comment on above: Performed By: #### C RP, SILVINO ####[facility] [address] [place] [address] [id number] OT Swing/Rehab Daily Noteon 04-14-2020 OT Swing/Rehab Daily Note Occupational Therapy OT Rehab/Swing Daily Note Start: 04/13/20 11:04 Freq: Status: Active Protocol: Document 04/14/20 13:18 TGS (Rec: 04/14/20 13:23 TGS [id number]) General/Subjective General Referring Provider Jim Marshall OT Visit # pm Diagnosis deconditio OT Treatment Diagnosis Muscle weakness (generalized) Additional OT Treatment Diagnosis/ Dx: Physical deconditioning s/ Clarification p hospitilization for COVID-19 pneumonia, bacterial pneumonia, acute respiratory failure with hypoxia Subjective Subjective Patient is pleasant, agreeable to therapy. Restrictions Weight Bearing Restrictions/Precauti ons fall risk, bed/chair alarms, supplemental O2 with oximask, recent loss of spouse, CHENEGA, wound on sacrum Objective Vital Signs Vitals at time of rehab Pt on 4 liters of supplemental 02. Functional Ability Bed Mobility SBA For bed mobilty supine to sitting EOB with use of bedrail and HOB slightly raised Transfers CGA for sit to stand pivot transfer from bed to w/c Therapeutic Exercise Exercise Comment BUE strengthening with a red t -band in chest level pullsouts , diagonal pattern of upward pulls, anchored upward pulls and bicep pulls 2 x 10 reps each to maximize strength; Assessment/Plan Assessment Assessment progressing with upper body strengthening (improving strengh resistance increased from a yellow band to a red band) Disposition at end of Eval/Treatment In bed,Bed Alarm,Call light/ phone within reach,Tray table within reach,All needs met Plan Plan ADLs, bed mobility, increase activity tolerance Time Started 13:00 Time Ended 13:30 Total Treatment Time (Min) (min) 30 Timed Code Treatment Minutes (min) 30 Charge Sheet G-Code Therapies Protocol: REHAB.8MIN Therapeutic Exercise 2 Documentation Complete OT Charges/Documentation Finished? Yes Last Visit Is patient being discharged from OT No today? Preliminary Draft Until Electronically Signed by Supervising Therapist [facility] OT Swing/Rehab Daily Note Occupational Therapy OT Rehab/Swing Daily Note Start: 04/13/20 11:04 Freq: Status: Active Protocol: Document 04/14/20 11:56 TGS (Rec: 04/14/20 12:08 [facility] [id number]) General/Subjective General Referring Provider Jim Marshall OT Visit # am Diagnosis deconditio OT Treatment Diagnosis Muscle weakness (generalized) Additional OT Treatment Diagnosis/ Dx: Physical deconditioning s/ Clarification p hospitilization for COVID-19 pneumonia, bacterial pneumonia, acute respiratory failure with hypoxia Subjective Subjective Pt is agreeable to therapy. Restrictions Weight Bearing Restrictions/Precauti ons fall risk, bed/chair alarms, supplemental O2 with oximask, recent loss of spouse, CHENEGA, wound on sacrum Objective Vital Signs Vitals at time of rehab Pt on 4 liters of supplemental 02 throughout session. SP02 checked, dropped to 85% when supplemental 02 removed to wash, however once reapplied quickly recovered to 92%. Functional Ability ADL's Pt completed a shower while seated on shower chair in walk in shower. Completed at setup /supervision with assist to wash upper/lower back; remained seated while completing bathing task; pt doffed/doned shirt at setup/ supervision; doffed underwear and pants over hips while remaining seated and weight shifting and sliding down over hips with good reach to feet to slide off feet; pt requesting to wear gown completing at setup; assistance needed to doff/don socks d/t shortness of breath; multiple cues for breathing techniques during adl's d/t sob with exertion Bed Mobility mod assist for bed mobility sit EOB to supine with assist for BLE's Transfers mod assist for sit to stand transfer from shower chair; min assist sit to stand from w /c to shower chair and from w/ c to bed Assessment/Plan Assessment Assessment pt required assist with socks after showering task due to fatigue and SOB; 02 dropped in shower once supplemental 02 removed to complete bathing however quickly recovered once reapplied; more assistance needed for transfers once fatigued Disposition at end of Eval/Treatment In bed,Bed Alarm,Call light/ phone within reach,Tray table within reach,All needs met Plan Plan ADLs, bed mobility, increase activity tolerance Time Started 11:00 Time Ended 11:45 Total Treatment Time (Min) (min) 45 Timed Code Treatment Minutes (min) 45 Charge Sheet G-Code Therapies Protocol: REHAB.8MIN Self Care/Home Management 3 Documentation Complete OT Charges/Documentation Finished? Yes Last Visit Is patient being discharged from OT No today? Preliminary Draft Until Electronically Signed by Supervising Therapist Normal [facility] POC Glucometer Teston 2020 Glucose [Mass/Vol] 139 mg/dL High 70-99 [facility] Comment on above: Performed By: #### P OCGLUCOMETER ####[facility] [address] [place] [address] Glucose [Mass/Vol] 90 mg/dL Normal 70-99 [facility] Comment on above: Performed By: #### P OCGLUCOMETER #### [facility] [address] [place] [address] Glucose [Mass/Vol] 215 mg/dL High 70-99 [facility] Comment on above: Performed By: #### P OCGLUCOMETER #### [facility] [address] [place] [address] PT Rehab/Swing Daily Noteon 04-14-2020 PT Rehab/Swing Daily Note Physical Therapy PT Rehab/Swing Daily Note. Start: 04/13/20 08:19 Freq: Status: Active Protocol: Document 04/14/20 14:34 MW (Rec: 04/14/20 14:44 MW [id number]) General/Subjective General Date of Admission 04/12/20 Referring Provider Jim Marshall PT Visit # PM Diagnosis deconditio PT Treatment Diagnosis Other malaise Additional PT Treatment Diagnosis/ Medical Dx: physical Clarification deconditioning s/p hospitilization for COVID-19 pneumonia, bacterial pneumonia , acute respiratory failure with hypoxia Additional PT tx dx: difficulty walking (R26.2), other reduced mobility (Z74.09 ), generalized muscle weakness (Z74.09) Subjective Subjective Patient sitting in w/c in therapy gym ready to work with PT. Patient states he doesn't feel like he can walk but will try his best. Precautions Restrictions/Precauti ons fall risk, bed/chair alarms, supplemental O2 with oximask, recent loss of spouse, CHENEGA, wound on sacrum Objective Vital Signs Vitals at time of rehab vitals during tx session on 4L of O2: 88-95% SpO2; recover to above 90% with verbal cues for pursed lip breathing technique Mobility Bed Mobility sitting EOB to supine: SBA; verbal cues to bridge and utilizes UE at bedrail for scooting up in bed for optimal positioning Transfers sit to stand from w/c: Katie at // bars; sit to stand from w/ c: Katie with FWW Balance standing dynamic: CGA with martita UE support Gait Amb down/back (total 10ft) in // bars with martita UE support at CGA. Completes 180 turn at end of // bars with no LOB. NBOS, decrease calixto, and short step length noted. Patient with increase anxiety and requests to go to bathroom immediately. Endurance fair Therapeutic Exercises Therapeutic Exercise supine ther ex martita LE 2x10: SLR (Katie), hip abd, ankle pumps Assessment and Plan Assessment Assessment Patient demonstrates improved sit to stand transfers requiring less assistance to achieve upright standing position. Focus of tx session on gait and transfers. He ambulates short distance at parallel bars at [facility] but very fearful and anxious. Distance limited due to patient request to go to bathroom. Patient transfers from w/c to bed with FWW at CGA to Katie. Progresses with utilizing urinal sitting on EOB as patient declines to utilize commode. He completes bed mobility at SBA and able to scoot self in bed with only verbal cues for bridging. Patient continues to require assistance to complete SLR due to LE muscle weakness. He will continue to highly benefit from skilled PT intervention to address gross LE weakness and endurance to improve gait mechanics. Disposition at end of Eval/Treatment In bed,Lines intact,Bed Alarm, Call light/phone within reach, Tray table within reach,All needs met Plan Plan Continue to focus on gait training and strength training . Time Started 14:00 Time Ended 14:30 Total Treatment Time (Min) (min) 30 Timed Code Treatment Minutes (min) 30 Charge Sheet G-Code Therapies Protocol: REHAB.8MIN Therapeutic Activity 1 Gait Training 1 Documentation Complete PT Charges/Documentation Finished? Yes Last Visit Is patient being discharged from PT No today? Preliminary Draft Until Electronically Signed by Supervising Therapist [facility] PT Rehab/Swing Daily Note Physical Therapy PT Rehab/Swing Daily Note. Start: 04/13/20 08:19 Freq: Status: Active Protocol: Document 04/14/20 11:00 MW (Rec: 04/14/20 11:19 MW [id number]) General/Subjective General Date of Admission 04/12/20 Referring Provider Jim Marshall PT Visit # AM Diagnosis deconditio PT Treatment Diagnosis Other malaise Additional PT Treatment Diagnosis/ Medical Dx: physical Clarification deconditioning s/p hospitilization for COVID-19 pneumonia, bacterial pneumonia , acute respiratory failure with hypoxia Additional PT tx dx: difficulty walking (R26.2), other reduced mobility (Z74.09 ), generalized muscle weakness (Z74.09) Subjective Subjective Patient states he would like to put on warmer pants before going to therapy gym. Denies any pain or new complaints. Precautions Restrictions/Precauti ons fall risk, bed/chair alarms, supplemental O2 with oximask, recent loss of spouse, CHENEGA, wound on sacrum Objective Vital Signs Vitals at time of rehab vitals during tx session on 3- 4L of O2: at start SpO2 at 92% at rest, transfer from EOB to chair decreases to 84%, RN called and increased O2 to 4L, SpO2 recovers quickly to 90%, SpO2 at 88% or greater when completing exertional activities on 4L Mobility Bed Mobility supine to sitting EOB: CGA with HOB elevated, utilizes bedrail on the Rt, increase time to complete task Transfers sit to stand from EOB: CGA with FWW; stand pivot transfer from EOB to w/c: CGA with FWW ; sit to stand x2 from w/c at // bars: min to modA Balance sitting static: LANCE to SBA sitting dyanmic: SBA with martita UE support; Katie without UE support (1x LOB when donning pants in sitting) standing static: CGA with martita UE support; stood at // bars for 1 minute x2 with 1 seated rest break Endurance fair Therapeutic Exercises Therapeutic Exercise sitting ther ex 2x10 martita LE: glute set with 3 sec hold, marching, hip abd with yellow tband, hip add with 3 sec hold , LAQ, ankle pumps Rehab Education Education Provided Education Provided: Details Educated patient on importance of activity out of bed to optimize functional recovery and strengthening. Teaching Recipient Patient Teaching Method Verbal Response to Teaching Verbalize understanding Assessment and Plan Assessment Assessment Patient continues to require reassurance and encouragement to participate in functional tasks secondary to anxiety. He completes bed mobility at [facility] but requires CGA to modA for sit to stand transfers pending surface height. When donning pants sitting EOB, patient has posterior LOB requiring Katie and UE assist to recover. SpO2 decreases to 84% with exertional activity with patient on 3L. RNSarah, notified and increased O2 to 4L for activity. He requires frequent verbal cues to decrease respiratory rate and utilize diaphragmatic breathing to avoid excessive use of accessory muscles. Patient progressess with seated ther ex as noted above and with fair tolerance. However, when attempting standing ther ex patient becomes extremely fearful and anxious at // bars. Focused remainder of session on standing tolerance with patient able to complete static standing for 1 minute x2 with martita UE support. Patient resting in room in w/c with all needs met, O2 donned , and SpO2 at 94% at end of session. Disposition at end of Eval/Treatment Up in chair,Lines intact,Call light/phone within reach,Tray table within reach,All needs met Plan Plan Continue to progress standing tolerance to improve transfers and ambulation. Time Started 09:40 Time Ended 10:25 Total Treatment Time (Min) (min) 45 Timed Code Treatment Minutes (min) 45 Charge Sheet G-Code Therapies Protocol: REHAB.8MIN Therapeutic Exercise 1 Therapeutic Activity 2 Documentation Complete PT Charges/Documentation Finished? Yes Last Visit Is patient being discharged from PT No today? Preliminary Draft Until Electronically Signed by Supervising Therapist Normal [facility] Internal Med History&Physica marquise 04-13-2020 Internal Med History&Physical [facility] [address] [place] [address] Internal Med History Physical Signed PRELIMINARY DRAFT REPORT UNTIL ELECTRONICALLY SIGNED PATIENT: Mick Cottrell MR#: [id number] : 1940 AGE/SEX: 79 / M ADMITTED: 04/12/20 1837 OUTSIDE LOCN: LOCATION: [address] ATTENDING: Jim Marshall MD cc: ; Date of Encounter: 04/13/20 Time of Encounter: 10:20 Internal Medicine - H P: HPI Chief complaint: physical deconditioning Admitted From: Intrahospital Transfer Plans for Post Hospital Care: Home History of present illness: Mr. Cottrell is a 79 year old male with known past medical history of HFpEF, COPD, CVA, A-Fib, HTN, DM2, BPH who was admitted at [facility] on 03/05 with cough, SOB, and malaise for 5 days. Hospital course complicated by development of new A-Fib RVR as well as acute metabolic encephalopathy. Patient was placed on supplemental O2 and required up to HHFNC at 40L/60%. Patient was given high dose dexamethasone, transfusion of convalescent plasma, and course of remdesivir, with eventual improvement in his symptoms and oxygenation. He was transferred to our [facility] during that hospitalization as lateral transfer to continue his further acute medical care and eventually transitioning him to swing bed for his physical deconditioning. When he was in rehab facility one day he became more hypoxic with worsening respiratory failure. He got readmitted at [facility] on 03/28/2020 with acute hypoxic resp failure due to multi focal pneumonia. He happened to have hemoptysis too. He was evaluated by Technical Planner who held his anti coag Eliquis and continued IV Decadran and empirical abx Levaquin. His hemoptysis resolved and his oxygen requirement came down to 4-6 lit now. Due to bed crunch for Covid positive patients at [facility] he was sent to our facility [facility] as lateral trasnfer to continue further medical care and possible rehab when he becomes more medically stable. We continued his Decadron and other supportive measures. His symptoms imroved and able to participate in rehab. He was transferred to rehab facility. Pt was seen and examined at bed side. He is alert, awake and O x 4. He denied any CP/SOB. He does look weak and lethargic. His LOPEZ also better now and able to participate in rehab. He still has c ough with expectoration with some bloody tinze. He is currently breathing comfortably on 3 lit O2. He denied any N/V/D. he denied any GI/ symptoms. Past Med Surg Social Fam HX - Past Medical History Medical history: COPD, CVA, diabetes, hypertension Additional medical history: right lung drainage - pt reports 1800cc of drainage from "center sac" of lung Psychiatric history: depression - Past Surgical History Surgical History: heart valve replacement Additional surgical history: lung drained, tonsillectomy, nasal surgery, loop recorder removal. heart valve replacement - cow valve - Social History Smoking Status: Former smoker Smokeless Tobacco Status: No Alcohol use: none Drug use: none - Family History Father Living Status: Hx Family Cardiac Disorders: Yes (HTN) Hx Family Endocrine Disorder: Yes (DM) Mother Living Status: Hx Family Cardiac Disorders: Yes (HTN, CAD) Hx Family Cancer: Yes (breast, colon) Hx Family Endocrine Disorder: Yes (DM) Internal Medicine - H P: Meds Aspirin Enteric Coated [Aspirin EC] 81 mg PO DAILY 09/30/15 [History] Mirtazapine [Remeron] 15 mg PO HS 03/05/20 [History] Albuterol Sulfate [Albuterol Sulfate Hfa] 2 puff IH Q4-6H PRN 03/06/20 [History] Atorvastatin [Lipitor] 40 mg PO HS 03/06/20 [History] Finasteride [Proscar] 5 mg PO DAILY 03/06/20 [History] Furosemide [Lasix] 20 mg PO DAILY 03/06/20 [History] Metformin HCl 1,000 mg PO BID 03/06/20 [History] Montelukast [Singulair] 10 mg PO QPM 03/06/20 [History] Omeprazole [PriLOSEC] 40 mg PO DAILY 03/06/20 [History] Topiramate [Topamax] 50 mg PO BID 03/06/20 [History] Vit C/E/Zn/Coppr/Lutein/Z eaxan [Preservision Areds 2 Softgel] 1 cap PO BID 03/06/20 [History] Losartan [Cozaar] 25 mg PO DAILY #30 tablet 03/19/20 [Rx] Budesonide/Formoterol 160/4.5 [Symbicort 160/4.5] 2 puff IH BIDR inh 04/09/20 [Rx] Cholecalciferol (D-3) [Vitamin D] 1,000 unit PO DAILY tablet 04/09/20 [Rx] Ipratropium [ATROVENT Inhaler] 2 puff IH [id number] inhaler 04/09/20 [Rx] Metoprolol [Lopressor] 50 mg PO BID tablet 04/09/20 [Rx] Allergies Allergy/AdvReac Type Severity Reaction Status Date / Time Penicillins Allergy Severe Swelling Verified 03/06/20 16:07 of Lip/Tongue/Throat All Systems PM: A 10-system review of systems was performed and is negative for pertinent findings except as documented above in the HPI. Review of systems: All the systems are reviewed everything is benign except the systems and symptoms I mentioned in the history of present illness - Constitutional Vitals: Temp Pulse Resp BP Pulse Ox 97.6 F 69 19 121/61 92 04/13/20 11:32 04/13/20 11:32 04/13/20 11:32 04/13/20 11:32 04/13/20 11:32 General appearance: Present: cooperative, A O X 3, no acute distress, answers questions appropriately Exam: looks weak and lethargic - Head Head exam: Present: atraumatic, normal inspection - Neck Neck exam general surgery: Present: normal inspection, supple. Absent: thyromegaly - Respiratory Respiratory exam: Absent: decreased breath sounds, rales, respiratory distress - Cardiovascular Cardiovascular exam: Present: RRR, +S1, +S2. Absent: systolic murmur, tachycardia - GI/Abdominal GI/Abdominal exam: Present: normal bowel sounds, soft. Absent: distended, guarding, tenderness - Extremities Exam Extremities exam: Present: normal inspection. Absent: calf tenderness, pedal edema, tenderness - Back Exam Back exam: Absent: CVA tenderness (L), CVA tenderness (R) - Neurological Exam Neurological exam: Present: alert, oriented X3 - Psychiatric Psychiatric exam: Present: anxious, depressed - Skin Skin exam: Absent: rash - Assessment and Plan (1) Acute respiratory failure with hypoxia Current Visit: No Status: Acute Assessment and plan: Due to multi focal bacterial PNA and Covid inf Since his respiratory symptoms started improving, will start tapering Decadron dose slowly Changed Decadron to 4mg x 2 days, then 2mg x 3 days then 1mg x 3 days and stop Try to wean him off the O2 as he tolerates Encourage frequent incentive spiromtery, flutter valve therapy and chest percussion (2) COVID-19 Current Visit: No Status: Acute Assessment and plan: He was first dx with Covid on 03/05/20, and again on 03/28/20 He passed the infectious phase, doesn't need to be on isolation He did receive convalescent plasma and Remedesvir during his first hospitalization in February Cont symptomatic and supportive care concerning for 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 His inflammatory markers are started down trending will cont Lovenox SQ for DVT prophylaxis cont trend on inflammatory markers (3) Multifocal pneumonia Current Visit: No Status: Acute Assessment and plan: Reviewed his CXR and CTA of chest from 03/28 He did finish his 7 days course of empirical abx Levaquin improving cont symptomatic and supportive care (4) Paroxysmal atrial fibrillation Current Visit: No Status: Acute Assessment and plan: rate controlled with Metoprolol Held anti coag Xarelto due to his hemoptysis Cont ASA (5) Physical deconditioning Current Visit: No Status: Acute Assessment and plan: Cont rehab as per PT/OT recommendations (6) BPH (benign prostatic hyperplasia) Current Visit: No Status: Chronic Assessment and plan: Cont home meds Qualifiers: Lower urinary tract symptom presence: symptoms absent Qualified Code(s): N40.0 - Benign prostatic hyperplasia without lower urinary tract symptoms (7) COPD (chronic obstructive pulmonary disease) Current Visit: No Status: Chronic Assessment and plan: He was in acute on chronic COPD / Interstitial lung disease exacerbation Improving started tapering steroids cont Symbicort Need out pt f/u with Pulmonary Cont bronchodilators as needed Qualifiers: COPD type: unspecified COPD Qualified Code(s): J44.9 - Chronic obstructive pulmonary disease, unspecified (8) CVA (cerebral vascular accident) Current Visit: No Status: Chronic Assessment and plan: cont home meds ASA and Lipitor Qualifiers: CVA mechanism: unspecified Qualified Code(s): I63.9 - Cerebral infarction, unspecified (9) Diabetes mellitus Current Visit: No Status: Chronic Assessment and plan: on ADA diet HbA1C 7.6 from 04/08/20 on ISS cont home PO med Metformin Qualifiers: Diabetes mellitus type: type 2 Diabetes mellitus snf insulin use: without ranch hand use Diabetes mellitus complication status: without complication Qualified Code(s): E11.9 - Type 2 diabetes mellitus without complications (10) GERD (gastroesophageal reflux disease) Current Visit: No Status: Chronic Assessment and plan: on PPI Qualifiers: Esophagitis presence: with esophagitis Esophagitis bleeding: without hemorrhage Qualified Code(s): K21.00 - Gastro-esophageal reflux disease with esophagitis, without bleeding (11) HTN (hypertension) Current Visit: No Status: Chronic Assessment and plan: stable with current home meds Qualifiers: Hypertension type: essential hypertension Qualified Code(s): I10 - Essential (primary) hypertension (12) Heart failure with preserved ejection fraction Current Visit: No Status: Chronic Assessment and plan: not in exacerbation cont Lasix 20mg Daily cont ASA, Lipitor and Metoprolol Qualifiers: Heart failure chronicity: chronic Qualified Code(s): I50.32 - Chronic diastolic (congestive) heart failure - Time Spent With Patient Total time spent is greater than 50% in coordination of care (as documented) at patient's floor/unit and/or counseling patient: Documented By: Jim Marshall MD Signed By: 04/13/20 2331 DD/ 1331 Initialized By: [id number] [facility] OT Noteon 04-13-2020 OT Note Weekly Rehab Team Goal Weekly Rehab Team Goals Start: 04/12/20 18:53 Freq: QWEEK Status: Active Protocol: Activity Type Activity Date Activity User E-Sign Co-Sign Detail Recorded Client Recorded Date Recorded By Document 04/13/20 15:40 TGS [id number] 04/13/20 15:45 TGS 04/13/20 15:40 Mobility (PT/OT/TR) Bed Mobility Current Status Mod-I Bed Mobility Weekly Goal Improve Date 04/13/20 Supine to Sit Current Status Mod-I Supine to Sit Weekly Goal Improve Date 04/13/20 Sit to Stand Current Status CGA Sit to Stand Weekly Goal SBA Date 04/13/20 Ambulate or W/C Current Status CGA/Min A with FWW x40-80' Ambulate or W/C Weekly Goal SBA/CGA with FWW x80' Date 04/13/20 Stairs Current Status NTY Stairs Weekly Goal up/down 1 step in // bars CGA Date 04/13/20 Sitting Balance Current Status I Sitting Balance Weekly Goal I Date 04/13/20 Standing Balance Current Status CGA with UE balance support Standing Balance Weekly Goal SBA with UE balance support Date 04/13/20 ROM UE Current Status wfl ROM UE Weekly Goal same Date 04/13/20 ROM LE Current Status B LE WFL ROM LE Weekly Goal B LE WFL Date 04/13/20 Strength UE Current State BUE 4/5 but fatigues Strength UE Weekly Goal BUE MMT= 4+/5 Date 04/13/20 Strength LE Current State B LE gross 4/5 Strength LE Weekly Goal B LE gross 4/5 Endurance Current State Fair Endurance Weekly Goal Fair+ Date 04/13/20 Self Care (OT/NSG/CASH APPLICATIONS MANAGER/PT) UE Dressing Current Status setup/sba UE Dressing Weekly Goal Mod I Date 04/13/20 LE Dressing Current Status CGA for balance LE Dressing Weekly Goal Mod I Date 04/13/20 Grooming Current Status s/u assist Grooming Weekly Goal Mod I Date 04/13/20 Feeding Current Status Independent Feeding Weekly Goal same Date 04/13/20 Housekeeping Meal Preparation Current Not yet tested Status Housekeeping Meal Preparation Weekly Mod I Goal Date 04/13/20 Bath Transfer Current Satus NT Bath Transfer Weekly Goal Mod I Date 04/13/20 Bathing Task Current Status sponge bathing UB setup/sba, CGA in standing to complete LB Bathing Task Weekly Goal improve Date 04/13/20 Toilet Transfer Current Status CGA Toilet Transfer Weekly Goal SBA Date 04/13/20 Toilet Transfer Current Status CGA to BSC and standing to use urinal Toilet Transfer Weekly Goal SBA Date 04/13/20 Toilet Hygiene Current Status SBA-CGA for balance Toilet Hygiene Weekly Goal improve Date 04/13/20 Behavior/Cognizance(S LP/OT/TR) Cognition Current Status WFl Date 04/13/20 Visual Processing Neglect Current WFL State Date 04/13/20 Discharge Planning (SW/PT/OT) Equipment Current Status TBD Date 04/13/20 Equipment Current Status TBD Date 04/13/20 FTV/HSV Current Status TBD Date 03/22/20 Anticipated Discharge Date Current TBD Status Date 04/13/20 Occupational therapy information entered by Radha Botello OTR/Jaye, TAYLOR [facility] OT Progress Noteon 1 OT Progress Note (Please sign and return this section for non-electronic signatures) All electronic signatures can be found on the last page of the report. I have reviewed, and agree with, the below stated plan of care: ____ Referring Provider Signature/Printed Name Date Occupational Therapy Plan of Care OT Treatment Diagnosis Muscle weakness (generalized) Additional OT Treatment Dx: Physical deconditioning s/p hospitilization Diagnosis/Clarificati on for COVID-19 pneumonia, bacterial pneumonia, acute respiratory failure with hypoxia Planned OT Interventions Therapeutic Exercise,Therapeutic Activity,Self Care/Home Management,Neuromuscu lar Reeducation, Manual Therapy,Re-Evaluation OT Treatment Frequency 6x/wk Other Treatment Frequency 3 weeks Occupational Therapy LTG's 1. Patient will participate in activities of daily living of various media (dressing, bathing ) modified independent to improve ADL participation hospital discharge. 2. Patient will improve functional outcome score on AM-PAC by noted improvement of score ( increase or decrease as measured on tool by 2 points) within short-term hospitalization stay. 3. Patient will improve bilateral upper extremity strength by one half grade to improve ADL participation and independence by short-term hospital stay. 4. Patient will complete 10-15 minutes with breaks of paced therapeutic exercise to improve functional stamina as needed for daily routine and ADLs by hospital discharge. 5. Patient will complete bed mobility to improve functional mobility as needed for ADL participation modified independent by hospital discharge. Occupational Therapy OT Progress/Reassessment Start: 04/13/20 11:04 Freq: Status: Active Protocol: Document 04/13/20 11:04 [facility] (Rec: 04/13/20 11:13 [facility] [id number]) Occupational Therapy Reassessment General OT Visit # n/a Referring Provider Jim Marshall Diagnosis deconditio OT Treatment Diagnosis Muscle weakness (generalized) Additional OT Treatment Diagnosis/ Dx: Physical deconditioning s/ Clarification p hospitilization for COVID-19 pneumonia, bacterial pneumonia, acute respiratory failure with hypoxia Status Change(s) Since Initial Pt now swing bed status. Evaluation Progress note completed to pull goals into new chart. See original evaluation for details. Restrictions/Precauti ons fall risk, bed/chair alarms, supplemental O2 with oximask, recent loss of spouse, CHENEGA, wound on sacrum Current Status/Progress Review Standardized Testing/Functional Outcomes Evaluation: AM-PAC 6 clicks Utilized/Results daily activity inpatient short form raw score 17, impaired score 50.11% Goal Progress Occupational Therapy LTG's 1. Patient will participate in activities of daily living of various media (dressing, bathing) modified independent to improve ADL participation hospital discharge. 2. Patient will improve functional outcome score on AM -PAC by noted improvement of score (increase or decrease as measured on tool by 2 points) within short-term hospitalization stay. 3. Patient will improve bilateral upper extremity strength by one half grade to improve ADL participation and independence by short-term hospital stay. 4. Patient will complete 10-15 minutes with breaks of paced therapeutic exercise to improve functional stamina as needed for daily routine and ADLs by hospital discharge. 5. Patient will complete bed mobility to improve functional mobility as needed for ADL participation modified independent by hospital discharge. Plan Planned OT Interventions Therapeutic Exercise, Therapeutic Activity,Self Care /Home Management,Neuromuscu lar Reeducation,Manual Therapy,Re -Evaluation OT Treatment Frequency 6x/wk Other Treatment Frequency 3 weeks Occupational Therapy Discharge General Referring Provider Jim Marshall Charge Sheet G-Code Documentation Complete OT Charges/Documentation Finished? Yes Last Visit Is patient being discharged from OT No today? OT Re-Evaluation Charge G-Code Preliminary Draft Until Electronically Signed by Supervising Therapist [facility] OT Swing/Rehab Daily Noteon 04-13-2020 OT Swing/Rehab Daily Note Occupational Therapy OT Rehab/Swing Daily Note Start: 04/13/20 11:04 Freq: Status: Active Protocol: Document 04/13/20 14:31 TGS (Rec: 04/13/20 14:38 TGS [id number]) General/Subjective General Referring Provider Jim Marshall OT Visit # pm Diagnosis deconditio OT Treatment Diagnosis Muscle weakness (generalized) Additional OT Treatment Diagnosis/ Dx: Physical deconditioning s/ Clarification p hospitilization for COVID-19 pneumonia, bacterial pneumonia, acute respiratory failure with hypoxia Subjective Subjective Pt is participatory in therapy . Agreeable to come out of room to therapy gym this date. Pt reports it feels good to be out of room Restrictions Weight Bearing Restrictions/Precauti ons fall risk, bed/chair alarms, supplemental O2 with oximask, recent loss of spouse, CHENEGA, wound on sacrum Objective Vital Signs Vitals at time of rehab SP02 checked at beginning of therapy session. Pt on 2 liters of supplemental 02 throughout therapy session with 02 at 95% and above. Functional Ability ADL's Pt stood and zipped/buttoned pants requiring CGA for balance while completing- pt required 3 attempts to completed due to shortness of breath howerver 02 remained at 95%; pt stood and used urinal requiring CGA for standing balance- pt stood for 2-3 minutes while completing. Transfers CGA for sit to stand transfers ; CGA for stand pivot transfer from bed to w/c Therapeutic Exercise Exercise Comment BUE strengthening with a 3# dowel david in overhead presses, chest presses, forward/ backward rows, side to side and bicep curls x 10 reps each with rest breaks in between Assessment/Plan Assessment Assessment fair tolerance to upper body strengthening exercises; cues to complete deep breathing techniques; Plan Plan ADLs, bed mobility, increase activity tolerance Time Started 14:05 Time Ended 14:35 Total Treatment Time (Min) (min) 30 Timed Code Treatment Minutes (min) 30 Charge Sheet G-Code Therapies Protocol: REHAB.8MIN Therapeutic Exercise 2 Documentation Complete OT Charges/Documentation Finished? Yes Last Visit Is patient being discharged from OT No today? Preliminary Draft Until Electronically Signed by Supervising Therapist [facility] OT Swing/Rehab Daily Note Occupational Therapy OT Rehab/Swing Daily Note Start: 04/13/20 11:04 Freq: Status: Active Protocol: Document 04/13/20 11:14 [facility] (Rec: 04/13/20 11:19 [facility] [id number]) General/Subjective General Referring Provider Jim Marshall OT Visit # am Diagnosis deconditio OT Treatment Diagnosis Muscle weakness (generalized) Additional OT Treatment Diagnosis/ Dx: Physical deconditioning s/ Clarification p hospitilization for COVID-19 pneumonia, bacterial pneumonia, acute respiratory failure with hypoxia Subjective Subjective Pt pleasant, agreeable to participate in OT tx this morning. Voicing thinking about ways to change routine at home, worried about " Getting things done." Reports plans to store clothing closer to bedroom, etc. Restrictions Weight Bearing Restrictions/Precauti ons fall risk, bed/chair alarms, supplemental O2 with oximask, recent loss of spouse, CHENEGA, wound on sacrum Objective Vital Signs Vitals at time of rehab Upon arrival, room air SPO2 87 %. Discussed with RN, applied 3L via oximask with SPO2 increased to 95% prior to initiating physical activity. During ADL tasks, drops to 80% with several tasks, removing mask to wash face, standing for washing/clothing management, etc. Recovers to > 90% within 1.5 minutes with seated rest break. Requires high level of cueing for pacing tasks throughout. At rest, pt decreased to 1L supplemental O2 via oximask maintaining SPO2 92%. RN informed of status. Functional Ability ADL's UB sponge bathing/dressing setup/SBA. LB sponge bathing/ dressing setup/CGA with standing tasks. Footwear not addressed this am. See above regarding cues for pacing self . Bed Mobility Supine <-> EOB SBA. Educated pt on techniques for scooting self up in bed via briding and pulling on bed rails with BUEs. Completed at SBA. Transfers CGA sit <-> stand from EOB x2 transfers, mod A x1 with fatigue. Assessment/Plan Assessment Assessment Pt benefits from cues for pacing self to maximize independence of ADL completion . Plan Plan ADLs, bed mobility, increase activity tolerance Time Started 09:35 Time Ended 10:10 Total Treatment Time (Min) (min) 35 Charge Sheet G-Code Therapies Protocol: REHAB.8MIN Self Care/Home Management 2 Documentation Complete OT Charges/Documentation Finished? Yes Preliminary Draft Until Electronically Signed by Supervising Therapist [facility] POC Glucometer Teston 2020 Glucose [Mass/Vol] 234 mg/dL High 70-99 [facility] Comment on above: Performed By: #### P OCGLUCOMETER ####[facility] [id number] [place] [address] Glucose [Mass/Vol] 129 mg/dL High 70-99 [facility] Comment on above: Performed By: #### P OCGLUCOMETER ####[facility] [id number] [place] [id number] Glucose [Mass/Vol] 200 mg/dL High 70-99 [facility] Comment on above: Result Comment: Glu2 : RN Notified Performed By: #### P OCGLUCOMETER #### [facility] [address] [place] [id number] Glucose [Mass/Vol] 110 mg/dL High 70-99 [facility] Comment on above: Result Comment: Glu2 : RN Notified Performed By: #### P OCGLUCOMETER #### [facility] [address] [place] [id number] Glucose [Mass/Vol] 290 mg/dL High 70-99 [facility] Comment on above: Performed By: #### P OCGLUCOMETER #### [facility] [address] [place] [address] PT Progress Noteon 1 PT Progress Note (Please sign and return this section for non-electronic signatures) All electronic signatures can be found on the last page of the report. I have reviewed, and agree with, the below stated plan of care: ____ Referring Provider Signature/Printed Name Date Physical Therapy Plan of Care PT Treatment Diagnosis Other malaise Assessment Refer to initial evaluation on 04/11/2020. No change in status since evaluation but progress note warranted secondary to patient being moved from acute bed to swing bed. Plan Patient will continue to highly benefit from skilled PT intervention with focus on strength training, dynamic standing balance training, gait training, and endurance training to restore to PLOF. Planned Interventions Therapeutic Exercise,Therapeutic Activity,Gait Training,Neuromuscula r Reeducation,ADL/Home Instruction,Re-Evalua tion Physical Therapy STG's Within 3 weeks: 1. Patient will complete bed mobility (supine to sitting EOB) at [facility] to promote independence within home. 2. Patient will perform sit to stand transfers from varying surfaces with FWW at [facility]. 3. Patient will ambulate 100ft with FWW at A to [facility] and while demonstrating walker safety without verbal cues to decrease fall risk with household ambulation. 4. Patient will participate in 5 minutes of standing ther ex while maintaining SpO2 at 90% or greater to improve activity tolerance with household and selfcare tasks. 5. Patient will be provided with written HEP and demonstrate exercises independently to promote carryover at home. 6. Patient will demonstrate improved independence with functional mobility by scoring 33% impairment or better on the [facility] AM-PAC '6-Clicks' Basic Mobility (V2) Inpatient Short Form Score. Other Treatment Frequency daily, 6x per week Duration of Treatment 3 weeks Physical Therapy PT Progress/Reassessment Start: 04/13/20 08:19 Freq: Status: Active Protocol: Document 04/13/20 08:20 MW (Rec: 04/13/20 08:37 MW [id number]) Physical Therapy Reassessment General PT Visit # N/A Referring Provider Jim Marshall Diagnosis deconditio PT Treatment Diagnosis Other malaise Additional PT Treatment Diagnosis/ Medical Dx: physical Clarification deconditioning s/p hospitilization for COVID-19 pneumonia, bacterial pneumonia , acute respiratory failure with hypoxia Additional PT tx dx: difficulty walking (R26.2), other reduced mobility (Z74.09 ), generalized muscle weakness (Z74.09) Status Change(s) Since Initial Patient is progressing well Evaluation with physical therapy. Patient has been moved from acute bed to swing bed warranting a progress note to carryover information from old account to new account. Refer to initial evaluation on 2020. Continue with established POC. Patient/Family Goal regain his strength and independence; be able to walk with AD; return to living at home Restrictions/Precauti ons fall risk, bed/chair alarms, on 3-5L of supplemental O2, recent loss of spouse, CHENEGA, wound on sacrum, fearful of movement and anxious Current Status/Progress Review Assessment Refer to initial evaluation on 04/11/2020. No change in status since evaluation but progress note warranted secondary to patient being moved from acute bed to swing bed. Standardized Testing/Functional Outcomes [facility] '6- Utilized/Results Clicks' Basic Mobility (V2) Inpatient Short Form: -[facility] Raw Score=17; CMS Score=43.83% impairment Goals/Goal Progress Physical Therapy STG's Within 3 weeks: 1. Patient will complete bed mobility (supine to sitting EOB) at [facility] to promote independence within home. 2. Patient will perform sit to stand transfers from varying surfaces with FWW at [facility]. 3. Patient will ambulate 100ft with FWW at SBA to [facility] and while demonstrating walker safety without verbal cues to decrease fall risk with household ambulation. 4. Patient will participate in 5 minutes of standing ther ex while maintaining SpO2 at 90% or greater to improve activity tolerance with household and selfcare tasks. 5. Patient will be provided with written HEP and demonstrate exercises independently to promote carryover at home. 6. Patient will demonstrate improved independence with functional mobility by scoring 33% impairment or better on the [facility] ' 6-Clicks' Basic Mobility (V2) Inpatient Short Form Score. Progression Toward Goals Patient is making good progress towards physical therapy goals and will continue with established POC to optimize functional recovery. Goals Determined With Patient/Family Yes Plan Planned Interventions Therapeutic Exercise, Therapeutic Activity,Gait Training,Neuromuscula r Reeducation,ADL/Home Instruction,Re-Evalua tion Skilled Therapy Need Patient will highly benefit from continued skilled PT intervention to optimize functional recovery. Plan Patient will continue to highly benefit from skilled PT intervention with focus on strength training, dynamic standing balance training, gait training, and endurance training to restore to PLOF. Other Treatment Frequency daily, 6x per week Duration of Treatment 3 weeks Physical Therapy Discharge General Referring Provider Jim Marshall Charge Sheet G-Code Documentation Complete PT Charges/Documentation Finished? Yes Last Visit Is patient being discharged from PT No today? Re-Evaluation Charge Sheet G-Code Last Visit Is patient being discharged from PT No today? Preliminary Draft Until Electronically Signed by Supervising Therapist [facility] PT Rehab/Swing Daily Noteon 04-13-2020 PT Rehab/Swing Daily Note Physical Therapy PT Rehab/Swing Daily Note. Start: 04/13/20 08:19 Freq: Status: Active Protocol: Document 04/13/20 15:16 MJS (Rec: 04/13/20 15:22 MJS [id number]) General/Subjective General Date of Admission 04/12/20 Referring Provider Jim Marshall PT Visit # PM Diagnosis deconditio PT Treatment Diagnosis Other malaise Additional PT Treatment Diagnosis/ Medical Dx: physical Clarification deconditioning s/p hospitilization for COVID-19 pneumonia, bacterial pneumonia , acute respiratory failure with hypoxia Additional PT tx dx: difficulty walking (R26.2), other reduced mobility (Z74.09 ), generalized muscle weakness (Z74.09) Subjective Subjective Patient reports he is tired but willing to work with [employer]. Precautions Restrictions/Precauti ons fall risk, bed/chair alarms, supplemental O2 with oximask, recent loss of spouse, CHENEGA, wound on sacrum Objective Mobility Transfers sit-stand from low surface Min /mod A toilet transfer Mod A using bars in bathroom Balance seated: Mod I in w/c and SBA no toilet standing: CGA/Min A with UE balance support Therapeutic Exercises Therapeutic Exercise seated: ankle pumps, LAQ, hip abd/add, marches, glut sets all x10 reps each Assessment and Plan Assessment Assessment Patient started session with seated ther ex as listed. Patient requested to go to bathroom during session. Patient worked on toilet transfer. Struggled to keep O2 up when on 2L. O2 dropped on 2L to 81%. Notified RN and O2 increased to 4L to maintain 94%. Patient then remained up in w/c to work with RT. Patient required numerous rest breaks and constant cues for slow controlled breathing. Disposition at end of Eval/Treatment Up in chair,Staff in room Plan Plan Cont to progress with ther ex and gait as tolerated. Time Started 13:40 Time Ended 14:05 Total Treatment Time (Min) (min) 25 Timed Code Treatment Minutes (min) 25 Charge Sheet G-Code Therapies Protocol: REHAB.8MIN Therapeutic Exercise 1 Therapeutic Activity 1 Documentation Complete PT Charges/Documentation Finished? Yes Last Visit Is patient being discharged from PT No today? Preliminary Draft Until Electronically Signed by Supervising Therapist [facility] PT Rehab/Swing Daily Note Physical Therapy PT Rehab/Swing Daily Note. Start: 04/13/20 08:19 Freq: Status: Active Protocol: Document 04/13/20 10:13 [facility] (Rec: 04/13/20 10:16 [facility] [id number]) General/Subjective General Date of Admission 04/12/20 Referring Provider Jim Marshall PT Visit # AM Diagnosis deconditio PT Treatment Diagnosis Other malaise Additional PT Treatment Diagnosis/ Medical Dx: physical Clarification deconditioning s/p hospitilization for COVID-19 pneumonia, bacterial pneumonia , acute respiratory failure with hypoxia Additional PT tx dx: difficulty walking (R26.2), other reduced mobility (Z74.09 ), generalized muscle weakness (Z74.09) Subjective Subjective Patient is pleasant and cooperative at the start of AM physical therapy session. He admits he has significantly improved since first admitted to [facility] inpatient unit, but still feels generalized weakness is is most limiting factor. Precautions Restrictions/Precauti ons fall risk, bed/chair alarms, on 3-5L of supplemental O2, recent loss of spouse, CHENEGA, wound on sacrum, fearful of movement and anxious Objective Mobility Bed Mobility Bed mobilities: Supine <> sit requires SBA/CGA Transfers Transfers: Sit <> stand and stand-pivot requires SBA/CGA with occasional cues for proper positioning and sequencing skills, as patient becomes anxious especially when needing to transfer to bedside toilet, he becomes impulsive and nearly in a panic state to get onto the toilet. Gait Gait front-wheeled walker CGA for in room distances of 20'x2 with frequent verbal cues for walker management and efficient breathing technique as patient gets and near panic state when struggling with his breathing. Patient maintains SPO2 levels greater than 90% on supplemental oxygen. Assessment and Plan Assessment Assessment Patient participates in comprehensive a.m. physical therapy session consisting of gait training with careful monitoring of patient's SPO2 levels to avoid accidents of dyspnea. In room therapeutic exercise for lower extremity strengthening. Additionally, therapeutic activities for efficient transitional strategies in out-of-bed. Disposition at end of Eval/Treatment Up in chair,Chair Alarm,Call light/phone within reach,Tray table within reach,All needs met Plan Plan Continue plan of care per evaluating therapist for coordinated strengthening, functional mobility and balance remediation needed for safe and expeditious return home. Time Started 10:15 Time Ended 11:00 Total Treatment Time (Min) (min) 45 Timed Code Treatment Minutes (min) 45 Charge Sheet G-Code Therapies Protocol: REHAB.8MIN Therapeutic Activity 2 Gait Training 1 Documentation Complete PT Charges/Documentation Finished? Yes Last Visit Is patient being discharged from PT No today? Preliminary Draft Until Electronically Signed by Supervising Therapist [facility] Psychological Evaluationon 0 04-13-2020 Psychological Evaluation [address] [id number] Psychological Evaluation Signed PRELIMINARY DRAFT REPORT UNTIL ELECTRONICALLY SIGNED PATIENT: Mick Cottrell MR#: [id number] : 1940 AGE/SEX: 79 / M ADMITTED: 04/12/20 1837 OUTSIDE LOCN: LOCATION: [address] ATTENDING: Jim Marshall MD cc: ; Date of Encounter: 04/13/20 Time of Encounter: 09:00 (bedside) History of Present Illness History of present illness: Mr. Cottrell is a 79 year old male with known past medical history of HFpEF, COPD, CVA, A-Fib, HTN, DM2, BPH who was admitted at [facility] on 03/05 with cough, SOB, and malaise for 5 days. Hospital course complicated by development of new A-Fib RVR as well as acute metabolic encephalopathy. Patient was placed on supplemental O2 and required up to HHFNC at 40L/60%. Patient was given high dose dexamethasone, transfusion of convalescent plasma, and course of remdesivir, with eventual improvement in his symptoms and oxygenation. He was transferred to our [facility] during that hospitalization as lateral transfer to continue his further acute medical care and eventually transitioning him to swing bed for his physical deconditioning. When he was in rehab facility one day he became more hypoxic with worsening respiratory failure. He got readmitted at [facility] on 03/28/2020 with acute hypoxic resp failure due to multi focal pneumonia. He happened to have hemoptysis too. He was evaluated by Technical Planner who held his anti coag Eliquis and continued IV Decadran and empirical abx Levaquin. His hemoptysis resolved and his oxygen requirement came down to 4-6 lit now. Due to bed crunch for Covid positive patients at [facility] he was sent to our facility [facility] as lateral trasnfer to continue further medical care and possible rehab when he becomes more medically stable. Past Medical History - Psychiatric History Psychiatric history: Reports: no psych history Home Medications and Allergies Aspirin Enteric Coated [Aspirin EC] 81 mg PO DAILY 09/30/15 [History] Mirtazapine [Remeron] 15 mg PO HS 03/05/20 [History] Albuterol Sulfate [Albuterol Sulfate Hfa] 2 puff IH Q4-6H PRN 03/06/20 [History] Atorvastatin [Lipitor] 40 mg PO HS 03/06/20 [History] Finasteride [Proscar] 5 mg PO DAILY 03/06/20 [History] Furosemide [Lasix] 20 mg PO DAILY 03/06/20 [History] Metformin HCl 1,000 mg PO BID 03/06/20 [History] Montelukast [Singulair] 10 mg PO QPM 03/06/20 [History] Omeprazole [PriLOSEC] 40 mg PO DAILY 03/06/20 [History] Topiramate [Topamax] 50 mg PO BID 03/06/20 [History] Vit C/E/Zn/Coppr/Lutein/Z eaxan [Preservision Areds 2 Softgel] 1 cap PO BID 03/06/20 [History] Losartan [Cozaar] 25 mg PO DAILY #30 tablet 03/19/20 [Rx] Budesonide/Formoterol 160/4.5 [Symbicort 160/4.5] 2 puff IH BIDR inh 04/09/20 [Rx] Cholecalciferol (D-3) [Vitamin D] 1,000 unit PO DAILY tablet 04/09/20 [Rx] Ipratropium [ATROVENT Inhaler] 2 puff IH [id number] inhaler 04/09/20 [Rx] Metoprolol [Lopressor] 50 mg PO BID tablet 04/09/20 [Rx] Allergies Allergy/AdvReac Type Severity Reaction Status Date / Time Penicillins Allergy Severe Swelling Verified 03/06/20 16:07 of Lip/Tongue/Throat Social History - Social History Social History: recently, 03/16/20, from dementia. He has supportive family - 2 adult sons. Lives alone . tearful discussing details of his hospitalization and 's and , that he missed. Discussed how he will remember her and share grief with family upon DC. - Tobacco Use Smoking Status: Former smoker - Alcohol Use Alcohol Use: none - Drug Use Drug Use: none Cognitive/Emotional Assessment - Cognitive Ability Problem Solving Ability: Able To Solve Simple Problems Safety Awareness: Patient Is Aware of Their Safety Level of Alertness: Alert Memory Description: Remote Intact Orientation: Person, Place, Time Ability to Follow Directions: Good Speech Pattern: Difficulty finding words Thought Process: Logical Additional Findings: Unable to spell WORLD backwards but could perform mental mathematics. Aware of memory difficulties and self corrects. Poor hearing and stated aids lost in hospital. Stated he struggles at times to maintain thoughts". - Emotional Status Mood Description: Depressed, Anxious Affect Description: Full range, Tearful Coping Ability: Verbalizes positive coping skills Assessment Plan - Diagnosis (1) Adjustment disorder with mixed anxiety and depressed mood - Prognosis Prognosis: Good - Treatment Plan Treatment Plan/Recommendations: Further evaluate cognition. Train relaxation strategies to better manage anxiety. Procedures - Participants Therapy Participant: Patient - Session Time Session Start Time: 09:00 Session Stop Time: 09:30 Documented By: Cynthia Johnston PhD Signed By: 04/13/20 1430 DD/ 1422 Initialized By: [id number] Normal [facility] Basic Metabolic Panelon 03-25 Calcium [Mass/Vol] 8.6 mg/dL Normal 8.6-10.3 [facility] Comment on above: Performed By: #### P OCGLUCOMETER #### [facility] [address] [place] [address] 19494 Chloride [Moles/Vol] 100 mmol/L Normal 98-107 [facility] Comment on above: Performed By: #### P OCGLUCOMETER #### [facility] [address] [place] [address] 51977 CO2 [Moles/Vol] 29 mmol/L Normal 23-29 [facility] Comment on above: Performed By: #### P OCGLUCOMETER #### [facility] [address] [place] [address] 31686 Creatinine [Mass/Vol] 0.81 mg/dL Normal 0.70-1.30 [facility] Comment on above: Performed By: #### P OCGLUCOMETER #### [facility] [address] [place] [address] 92445 eGFR For Americans > 60 Normal > 60 [facility] Comment on above: Result Comment: eGFR = Estimated Glomerular Filtration Rate reported as mL/min/1.73 square meters Chronic Kidney Disease: < 60; Kidney failure: < 15 Performed By: #### P OCGLUCOMETER #### [facility] [address] [place] [address] 07042 eGFR For Non- Americans > 60 Normal > 60 [facility] Comment on above: Performed By: #### P OCGLUCOMETER #### [facility] [address] [place] [address] 64455 Osmolality,Calculated 292 Normal 280-300 [facility] Comment on above: Performed By: #### P OCGLUCOMETER #### [facility] [address] [place] [address] 33662 Potassium [Moles/Vol] 4.8 mmol/L Normal 3.5-5.1 [facility] Comment on above: Performed By: #### P OCGLUCOMETER #### [facility] [address] [place] [address] 14849 Sodium [Moles/Vol] 136 mmol/L Normal 136-145 [facility] Comment on above: Performed By: #### P OCGLUCOMETER #### [facility] [address] [place] [address] 26465 Urea nitrogen [Mass/Vol] 32 mg/dL High 8-23 [facility] Comment on above: Performed By: #### P OCGLUCOMETER #### [facility] [address] [place] [address] 48814 Urea nitrogen/Creatinine [Mass ratio] 40 mg/mg High 6-26 [facility] Comment on above: Performed By: #### P OCGLUCOMETER #### [facility] [address] [place] [address] 64761 Glucose [Mass/Vol] 152 mg/dL High 70-99 [facility] Comment on above: Performed By: #### P OCGLUCOMETER #### [facility] [address] [place] [address] 42523 Performed By: #### P OCGLUCOMETER ####[facility] [address] [place] [address] 99153 Complete Blood Count w/o Dif brandon 04-12-2020 Erythrocyte distribution width (RBC) [Ratio] 16.7 % High 11.5-14.5 [facility] Comment on above: Performed By: #### P OCGLUCOMETER #### [facility] [address] [place] [address] 79721 Hematocrit (Bld) [Volume fraction] 31.7 % Low 37.5-50.1 [facility] Comment on above: Performed By: #### P OCGLUCOMETER #### [facility] [address] [place] [address] 04998 Hemoglobin (Bld) [Mass/Vol] 10.3 g/dL Low 12.9-16.9 [facility] Comment on above: Performed By: #### P OCGLUCOMETER #### [facility] [address] [place] [address] 04162 MCH (RBC) [Entitic mass] 32.5 g/dL Normal 31.6-35.5 [facility] Comment on above: Performed By: #### P OCGLUCOMETER #### [facility] [address] [place] [address] 14461 MCH (RBC) [Entitic mass] 31.5 pg Normal 28.0-33.3 [facility] Comment on above: Performed By: #### P OCGLUCOMETER #### [facility] [address] [place] [address] 55926 MCV (RBC) [Entitic vol] 96.9 fL Normal 83.0-100.0 [facility] Comment on above: Performed By: #### P OCGLUCOMETER #### [facility] [address] [place] [address] 12368 Platelet mean volume (Bld) [Entitic vol] 11.7 fL Normal 9.4-12.4 [facility] Comment on above: Performed By: #### P OCGLUCOMETER #### [facility] [address] [place] [address] 12823 Platelets (Bld) [#/Vol] 125 K/mcL Low 140-400 [facility] Comment on above: Performed By: #### P OCGLUCOMETER #### [facility] [address] [place] [address] 08911 RBC (Bld) [#/Vol] 3.27 M/mcL Low 4.19-5.50 [facility] Comment on above: Performed By: #### P OCGLUCOMETER #### [facility] [address] [place] [address] 82239 WBC (Bld) [#/Vol] 12.7 K/mcL High 4.3-11.1 [facility] Comment on above: Performed By: #### P OCGLUCOMETER #### [facility] [address] [place] [address] Internal Med Progress Noteon 04-12-2020 Internal Med Progress Note [facility] [address] [place] [address] Internal Med Progress Note Signed PRELIMINARY DRAFT REPORT UNTIL ELECTRONICALLY SIGNED PATIENT: Mick Cottrell MR#: [id number] : 1940 AGE/SEX: 79 / M ADMITTED: 04/10/20 1654 OUTSIDE LOCN: LOCATION: [address] ATTENDING: Jim Marshall MD cc: ; Date of Encounter: 04/12/20 Time of Encounter: 15:36 - Assessment and plan (1) Acute respiratory failure with hypoxia Current Visit: Yes Status: Acute Assessment and plan: Patient continues to require oxygen at 2-3 LPM via oxymask to maintain his ox sat >92% while at rest. He continues to desaturate to mid-80's with exertion, but quickly recovers with rest. Will continue with current plan of care. Remains on Decadron and bronchodialators. (2) COVID-19 Current Visit: Yes Status: Acute Assessment and plan: First Dx Covid on 03/05/20 and again test positive on 03/28/20. No longer on isolation. He rec'd convalescant plasma and Remedesvir during early admission. Continue with IPR and supportive care. Will continue bronchodilators and Decadron. X-ray continues to show scattered opacities lower hagan but no indications of new infectious source. We will continue to track his inflammatory markers every 48 hours. His most recent d-dimer has remained elevated at 6647. (3) Diabetes mellitus Current Visit: Yes Status: Chronic Assessment and plan: Patients glucose has been fairly well-controlled on fingersticks with most readings less than 200. We will continue with sliding scale insulin and metformin Qualifiers: Diabetes mellitus type: type 2 Diabetes mellitus ranch hand insulin use: without ranch hand use Diabetes mellitus complication status: without complication Qualified Code(s): E11.9 - Type 2 d iabetes mellitus without complications (4) COPD (chronic obstructive pulmonary disease) Current Visit: Yes Status: Chronic Assessment and plan: No acute issues this time. Patient continues to be treated for symptoms of the physical with infection. We will continue with oxygen titration to maintain saturation greater than 92%. Most recent chest x-ray shows scattered opacities to lower lung hagan, but is actually unchanged from previous chest x-rays. We will continue with bronchodilators and Decadron. Lungs are clear with diminished basilar hagan. Patient continues to desaturate with minimal exertion showing very poor pulmonary endurance Qualifiers: COPD type: unspecified COPD Qualified Code(s): J44.9 - Chronic obstructive pulmonary disease, unspecified (5) HTN (hypertension) Current Visit: Yes Status: Chronic Assessment and plan: Vital signs are stable. We will continue with his home medications that include Lopressor and Lasix Qualifiers: Hypertension type: essential hypertension Qualified Code(s): I10 - Essential (primary) hypertension (6) BPH (benign prostatic hyperplasia) Current Visit: Yes Status: Chronic Assessment and plan: No acute issues. Patient denies any hesitation or urgency. We will continue with his home medications Qualifiers: Lower urinary tract symptom presence: symptoms absent Qualified Code(s): N40.0 - Benign prostatic hyperplasia without lower urinary tract symptoms (7) Atrial fibrillation Current Visit: Yes Status: Chronic Assessment and plan: Agents heart rate has been well-controlled with ventricular rate less than 100. We will continue with this Lopressor and aspirin. Patient also on Lovenox Qualifiers: Atrial fibrillation type: paroxysmal Qualified Code(s): I48.0 - Paroxysmal atrial fibrillation (8) GERD (gastroesophageal reflux disease) Current Visit: Yes Status: Chronic Assessment and plan: No complaints of reflux or epigastric discomforts. We will continue with his current PPI Qualifiers: Esophagitis presence: with esophagitis Esophagitis bleeding: without hemorrhage Qualified Code(s): K21.00 - Gastro-esophageal reflux disease with esophagitis, without bleeding - Time Spent With Patient 25 - 35 minutes - Subjective Interval history: Mr. Cottrell is a 79 year old male with known past medical history of HFpEF, COPD, CVA, A-Fib, HTN, DM2, BPH who was admitted at [facility] on 03/05 with cough, SOB, and malaise for 5 days. Hospital course complicated by development of new A-Fib RVR as well as acute metabolic encephalopathy. Patient was placed on supplemental O2 and required up to [facility] at 40L/60%. Patient was given high dose dexamethasone, transfusion of convalescent plasma, and course of remdesivir, with eventual improvement in his symptoms and oxygenation. He was transferred to our [facility] during that hospitalization as lateral transfer to continue his further acute medical care and eventually transitioning him to swing bed for his physical deconditioning. When he was in rehab facility one day he became more hypoxic with worsening respiratory failure. He got readmitted at [facility] on 03/28/2020 with acute hypoxic resp failure due to multi focal pneumonia. He happened to have hemoptysis too. He was evaluated by Technical Planner who held his anti coag Eliquis and continued IV Decadran and empirical abx Levaquin. His hemoptysis resolved and his oxygen requirement came down to 4-6 lit now. Due to bed crunch for Covid positive patients at [facility] he was sent to our facility [facility] as lateral transfer to continue further medical care and possible rehab when he becomes more medically stable. Patient appears relaxed, appears relaxed and denies any discomforts or dyspnea. He states he continues to have poor endurance and has been reported as becoming short of breath during transfers to the [facility]. His Ox sat has been >92% on 2-3 LPM on oxymask, but he desaturates to mid-80's during exertion. He has been recovering quickly with rest. Today's labs show mild leukocytosis with WBC 12.7. Mild anemia with Hgb 10.3. His D-dimer yesterday remained elevated at 6647, but Ferritin and CRP are normal. He had a CXR yesterday, which continues to show opacities to the lower lung hagan that appears unchanged. - Constitutional Vitals: Temp Pulse Resp BP Pulse Ox 97.4 F L 77 16 110/65 98 04/12/20 11:14 04/12/20 11:14 04/12/20 14:58 04/12/20 11:14 04/12/20 14:58 General appearance: Present: cooperative, mild distress, A O X 3, answers questions appropriately - Head Head exam: Present: atraumatic, normocephalic - Eye Eye exam: Present: PERRL, conjuntiva pink, sclera anicteric Pupils: Present: PERRL - Neck Neck exam general surgery: Present: supple, trachea midline. Absent: lymphadenopathy - Respiratory Respiratory exam: Present: decreased breath sounds, CTAB. Absent: accessory muscle use, rales, rhonchi, wheezes - Cardiovascular Cardiovascular exam: Present: RRR, +S1, +S2. Absent: diastolic murmur, gallop, rubs, systolic murmur - GI/Abdominal GI/Abdominal exam: Present: normal bowel sounds, soft, no peritoneal signs. Absent: distended, tenderness - Extremities Exam Extremities exam: Present: warm, radial pulses palpable and symmetrical. Absent: calf tenderness, cyanotic, pedal edema - Neurological Exam Neurological exam: Present: CN II-XII intact, oriented X3, no focal deficits. Absent: pronater drift, facial droop, speech deficit - Skin Skin exam: Present: dry, intact Internal Medicine: Result - Labs CBC Chem 7: 04/12/20 04:20 04/12/20 04:20 Labs: Short CBC 04/12/20 Range/Units 04:20 WBC 12.7 H (4.3-11.1) K/mcL Hgb 10.3 L (12.9-16.9) g/dL Hct 31.7 L (37.5-50.1) % Plt Count 125 L (140-400) K/mcL BMP 04/12/20 04:20 Sodium 136 Potassium 4.8 Chloride 100 Carbon Dioxide 29 BUN 32 H Creatinine 0.81 Glucose 152 H Calcium 8.6 - ABG Interpretation ABG results: PT/INR, D-dimer D-Dimer 6647 ng/mLFEU (0-500) H 04/11/20 04:25 - Diagnostic Studies Chest x-ray Status: image reviewed by me Consult Discharge Plan - Plan Referrals: Jim Marshall MD [Primary Care Provider] - Documented By: Jenaro Morales CNP Signed By: 04/12/20 1605 DD/ 1536 Initialized By: [id number] [facility] OT Swing/Rehab Daily Noteon 04-12-2020 OT Swing/Rehab Daily Note Occupational Therapy OT Rehab/Swing Daily Note Start: 04/11/20 12:56 Freq: Status: Active Protocol: Document 04/12/20 15:23 ECR (Rec: 01/19/21 15:36 ECR [id number]) General/Subjective General Referring Provider Jim Brennershahnazjeanne OT Visit # AM Diagnosis decondtiti OT Treatment Diagnosis Muscle weakness (generalized) Subjective Subjective Patient sitting at EOB with nursing staff in room upon arrival. Patient is pleasant and agreeable to completion of skilled OT services. Restrictions Weight Bearing Restrictions/Precauti ons fall risk, bed/chair alarms, on 3L of supplemental O2 at time of eval - however due to desat to 85% RN bumped pt up to 5L O2 per oximask, recent loss of spouse, CHENEGA, wound on sacrum Objective Vital Signs Vitals at time of rehab Patient on 5L of O2 via facemask throughout session. Patient O2 levels remain >90% throughout session. Functional Ability ADL's Patient completed sponge bathing at EOB with set-up of supplies. UB bathing: Set-up; Patient with minimal bathing of chest area due to heart monitor leads. LB Bathing: Max A for buttocks in standing secondary to patient very fearful of letting go of FWW. Patient able to wash legs in sitting at SBA. UB Dressing: Min A to untie/tie gown and to place heart monitor into pocket. LB Dressing: Not addressed at this time. Patient declined donning brief at this time. Standing/Activity Tolerance Patient tolerated 2 minutes to completed LB bathing in standing at CGA for safety. Patient very anxious throughout standing requiring max encouragement to withstand standing to allow for cleaning. Patient states throughout "Please hurry up!" Bed Mobility EOB to Supine: Min/Mod A for BLE Transfers Sit to stand from EOB: CGA/Min A for safety with hand placement throughout. Patient required continuous encouragement throughout due to anxiety level. Patient with max cues for slow breathing techniques and encouragement throughout. UE Function Patient declined completion of UE exercises at this time. Assessment/Plan Assessment Assessment Patient therapy session focused on ADLs. Patient very anxious throughout therapy session requiring max vc for breathing technique and encouragement for participation. Patient reassured that he is able to complete task with assistance of 1 person as patient afraid of falling. Patient making progress towards ADLs. Patient would benefit from continuation of skilled OT services to address ADLs and functional transfers to increase (I). Plan Plan OT Progress to address adl's, iadl's, balance, strength, activity tolerance, safe transfers Time Started 09:30 Time Ended 10:00 Total Treatment Time (Min) (min) 30 Timed Code Treatment Minutes (min) 30 Charge Sheet G-Code Therapies Protocol: REHAB.8MIN Self Care/Home Management 2 Documentation Complete OT Charges/Documentation Finished? Yes Last Visit Is patient being discharged from OT No today? Preliminary Draft Until Electronically Signed by Supervising Therapist Sarah [facility] OT Swing/Rehab Daily Note Occupational Therapy OT Rehab/Swing Daily Note Start: 04/11/20 12:56 Freq: Status: Active Protocol: Document 04/12/20 14:46 TGS (Rec: 04/12/20 14:56 TGS [id number]) General/Subjective General Referring Provider Jim Marshall OT Visit # pm Diagnosis decondtiti OT Treatment Diagnosis Muscle weakness (generalized) Subjective Subjective Patient is pleasant. Agreeable to therapy. Anxious throughout with multiple cues for breathing techniques. Restrictions Weight Bearing Restrictions/Precauti ons fall risk, bed/chair alarms, on 3L of supplemental O2 at time of eval - however due to desat to 85% RN bumped pt up to 5L O2 per oximask, recent loss of spouse, CHENEGA, wound on sacrum Objective Vital Signs Vitals at time of rehab Pt on 5 liters of supplemental 02 throughout session; supine 97% with HR 65 BPM Standing 96% and HR 82 BPM Seated exercises 98% and HR 75 BPM supine 98% and HR 70 BPM Functional Ability Standing/Activity Tolerance pt stood for 2 minutes at CGA before requesting to sit to sob and anxious Bed Mobility sba for bed mobility supine to sit; mod assist for bed mobility sit to supine with assist for BLE's Transfers Pt requires maximal cues for hand placement in sitting/ standing with CGA-min assist; pt completed side stepping toward foot of bed and toward head of bed requiring CGA-min assist and maximal cues to sequence and slow down breathing Balance CGA in standing; Independent for sitting Therapeutic Exercise Exercise Comment pt completed 2 sets of 10 reps each in overhead raises in shld abd/add/flexion/ext; elbow flex/ext and bicep curls without resistance; fair tolerance noted while seated seated edge of bed Assessment/Plan Assessment Assessment pt extremely anxious during therapy session requiring cues to slow down breathing and take deep breath; cues for safe completion of transfers Plan Plan OT Progress to address adl's, iadl's, balance, strength, activity tolerance, safe transfers Time Started 14:05 Time Ended 14:35 Total Treatment Time (Min) (min) 30 Timed Code Treatment Minutes (min) 30 Charge Sheet G-Code Therapies Protocol: REHAB.8MIN Therapeutic Exercise 1 Therapeutic Activity 1 Documentation Complete OT Charges/Documentation Finished? Yes Last Visit Is patient being discharged from OT No today? Preliminary Draft Until Electronically Signed by Supervising Therapist Normal [facility] POC Glucometer Teston 2020 Glucose [Mass/Vol] 210 mg/dL High 70-99 [facility] Comment on above: Result Comment: Glu2 : RN Notified Performed By: #### P OCGLUCOMETER ####[address] [address] Glucose [Mass/Vol] 124 mg/dL High 70-99 [facility] Comment on above: Performed By: #### P OCGLUCOMETER ####[address] [address] Glucose [Mass/Vol] 179 mg/dL High 70-99 [facility] Comment on above: Performed By: #### P OCGLUCOMETER ####[address] [address] PT Rehab/Swing Daily Noteon 04-12-2020 PT Rehab/Swing Daily Note Physical Therapy PT Rehab/Swing Daily Note. Start: 04/11/20 09:18 Freq: Status: Active Protocol: Document 04/12/20 15:37 HMT (Rec: 04/12/20 15:45 HMT [id number]) General/Subjective General Date of Admission 04/10/20 Referring Provider Jim Marshall PT Visit # pm Diagnosis decondtiti PT Treatment Diagnosis Other malaise Additional PT Treatment Diagnosis/ difficulty walking (R26.2), Clarification other reduced mobility (Z74.09 ), generalized muscle weakness (M62.81) Subjective Subjective Pt is fixated on bowel movements today. After much encourgement, agreeable to get up and try to walk. Precautions Restrictions/Precauti ons fall risk, bed/chair alarms, on 3L of supplemental O2 at time of eval - however due to desat to 85% RN bumped pt up to 5L O2 per oximask, recent loss of spouse, CHENEGA, wound on sacrum Objective Mobility Bed Mobility supine-sit and sit-sidelying lance Transfers sit-stand from bed min with cueing to push up from bed and not to pull on ww Balance standing dynamic with ww cga Gait ww in room: flexed overall posture with increase in kyphosis, 20 feet then seated rest break, then another 20 feet, cga except for one posterior leaning that required min assist, therapist also had to assist in maneuvering oxygen cord. Cueing for proper breathing techniques. Endurance fair Other educated on deep breathing techniques, use of incentive spirometer Assessment and Plan Assessment Assessment Pt took much encourgement to participate and was anxious throughout session. Did ambulate as noted above and completed use of incentive spirometer after encouragment by therapist. Pt needed verbalizations to continue to walk and not get too nervous that activity became unsafe. Disposition at end of Eval/Treatment In bed,Bed Alarm,Call light/ phone within reach,Tray table within reach,All needs met Plan Plan Progress standing activity and walking. Time Started 13:05 Time Ended 13:30 Total Treatment Time (Min) (min) 25 Timed Code Treatment Minutes (min) 25 Charge Sheet G-Code Therapies Protocol: REHAB.8MIN Therapeutic Activity 1 Gait Training 1 Documentation Complete PT Charges/Documentation Finished? Yes Last Visit Is patient being discharged from PT No today? Preliminary Draft Until Electronically Signed by Supervising Therapist [facility] PT Rehab/Swing Daily Note Physical Therapy PT Rehab/Swing Daily Note. Start: 04/11/20 09:18 Freq: Status: Active Protocol: Document 04/12/20 11:27 MW (Rec: 04/12/20 11:40 MW [id number]) General/Subjective General Date of Admission 04/10/20 Referring Provider Jim Marshall PT Visit # AM Diagnosis decondtiti PT Treatment Diagnosis Other malaise Additional PT Treatment Diagnosis/ difficulty walking (R26.2), Clarification other reduced mobility (Z74.09 ), generalized muscle weakness (M62.81) Subjective Subjective Patient sleeping upon arrival to room but easy to wake. He agrees to participate in therapy but states he is too weak to walk or transfer to chair. Precautions Restrictions/Precauti ons fall risk, bed/chair alarms, on 3L of supplemental O2 at time of eval - however due to desat to 85% RN bumped pt up to 5L O2 per oximask, recent loss of spouse, CHENEGA, wound on sacrum Objective Vital Signs Vitals at time of rehab vitals during tx session with patient on 5L of supplemental O2: SpO2 at 95% or higher, HR at 70-80 bpm Mobility Bed Mobility supine to sitting EOB: Katie at trunk with HOB elevated and utilizes bedrail on the Rt; sitting EOB to supine: CGA with cues to lift LE into bed and for repositioning Transfers sit to stand from EOB: bed slightly elevated, 5x with FWW at CGA to Katie; constant verbal cues for reassurance and to focus on breathing technique; verbal cues for hand placement to ensure safety with transfer (push up from stable surface, reach back for stable surface) Balance sitting dynamic: SBA standing static: CGA with martita UE support via FWW Endurance fair Other Declines to ambulate or transfer to bedside chair for lunch Therapeutic Exercises Therapeutic Exercise sitting ther ex at EOB martita LE 2x10: marching, glute set with 3 sec hold, hip abd, hip add with 3 sec hold, LAQ, ankle pumps Exercise Tolerance Fair Exercise Comment requires constant verbal cues to decrease respiratory rate and focus on diaphragmatic breathing; verbal cues to decrease speed when completing exercises and transfers; intermittent rest breaks for fatigue management when completing sitting ther ex Rehab Education Education Provided Education Provided: Details Educated patient on importance of activity out of bed to optimize functional recovery and restore to PLOF Teaching Recipient Patient Teaching Method Verbal Response to Teaching Verbalize understanding Assessment and Plan Assessment Assessment Patient continues to be extremely fearful of movement and anxious to participate in physical therapy. He requires constant reassurance and encouragement to complete exercises and functional mobility. He demonstrates fair tolerance to sitting ther ex but requires frequent rest breaks as well as cues for diaphragmatic breathing as patient demonstrates increase respiratory rate and utilizes accessory muscles for breathing. Patient declines to transfer to bedside chair or walk short distance in room. He agrees to sit to stand transfer following extensive patient education regarding importance of activity out of bed to optimize functional recovery. Patient completes 5x sit to stand transfer with bed slightly elevated at CGA to Katie with FWW. Patient continues with bed mobility as noted above and resting in bed with all needs met at end of session. Patient on 5L of supplemental O2 and maintains SpO2 at 95% or better. Disposition at end of Eval/Treatment In bed,Lines intact,Bed Alarm, Call light/phone within reach, Tray table within reach,All needs met Plan Plan Continue to focus on gross LE strength and balance to improve safety with transfers and short distance ambulation. Time Started 10:30 Time Ended 11:00 Total Treatment Time (Min) (min) 30 Timed Code Treatment Minutes (min) 30 Charge Sheet G-Code Therapies Protocol: REHAB.8MIN Therapeutic Exercise 1 Therapeutic Activity 1 Documentation Complete PT Charges/Documentation Finished? Yes Last Visit Is patient being discharged from PT No today? Preliminary Draft Until Electronically Signed by Supervising Therapist Normal [facility] Basic Metabolic Panelon 03-25 Calcium [Mass/Vol] 8.6 mg/dL Normal 8.6-10.3 [facility] Comment on above: Performed By: #### B MP, MG ####[facility] [address] [place] [address] Chloride [Moles/Vol] 101 mmol/L Normal 98-107 [facility] Comment on above: Performed By: #### Elba DAVIS, MG ####[facility] [address] [place] [address] CO2 [Moles/Vol] 34 mmol/L High 23-29 [facility] Comment on above: Performed By: #### B MP, MG ####[facility] [address] [place] [address] Creatinine [Mass/Vol] 0.69 mg/dL Low 0.70-1.30 [facility] Comment on above: Performed By: #### B MP, MG ####[facility] [address] [place] [address] eGFR For Americans > 60 Normal > 60 [facility] Comment on above: Result Comment: eGFR = Estimated Glomerular Filtration Rate reported as mL/min/1.73 square meters Chronic Kidney Disease: < 60; Kidney failure: < 15 Performed By: #### B MP, MG ####[facility] [address] [place] [address]132 eGFR For Non- Americans > 60 Normal > 60 [facility] Comment on above: Performed By: #### B MP, MG ####[address] [address] Glucose [Mass/Vol] 71 mg/dL Normal 70-105 [facility] Comment on above: Performed By: #### B MP, MG ####[address] [address] Osmolality,Calculated 294 Normal 280-300 [facility] Comment on above: Performed By: #### B MP, MG ####[address] [address] Potassium [Moles/Vol] 4.3 mmol/L Normal 3.5-5.1 [facility] Comment on above: Performed By: #### B MP, MG ####[address] [address] Sodium [Moles/Vol] 139 mmol/L Normal 136-145 [facility] Comment on above: Performed By: #### B MP, MG ####[address] [address] Urea nitrogen [Mass/Vol] 35 mg/dL High 8-23 [facility] Comment on above: Performed By: #### B MP, MG ####[address] [address] Urea nitrogen/Creatinine [Mass ratio] 51 mg/mg High 6-26 [facility] Comment on above: Performed By: #### B MP, MG ####[address] [id number] C-Reactive Proteinon 021 CRP [Mass/Vol] mg/L Normal Less than 10 [facility] Comment on above: Performed By: #### P OCGLUCOMETER #### [facility] [address] [place] [address] [id number] 04-11-2020 CXR1V [facility] [place] [address] [place] [address] XRay Report Signed PRELIMINARY DRAFT REPORT UNTIL ELECTRONICALLY SIGNED PATIENT: Mick Cottrell MR#: [id number] : 1940 AGE/SEX: 79 / M ADMITTED: 04/10/20 1654 OUTSIDE LOCN: LOCATION: [address] ATTENDING: Jim Marshall MD ORDER PHYSICIAN: Jim Marshall BIRAD: DATE OF SERVICE: 04/11/20 FOLLOW UP: ACCESSION NUMBERS(S): [id number] PROCEDURE(S): XR chest 1V REASON FOR EXAM: acute hypoxic resp failure cc: Jim Marshall; EXAMINATION: ONE X-RAY VIEW OF THE CHEST 04/11/2020 1:02 pm COMPARISON: 03/30/2020 HISTORY: ORDERING SYSTEM PROVIDED HISTORY: Acute hypoxic resp failure. FINDINGS: The heart is normal in size for technique. There is a left pleural effusion and questionable right pleural effusion. No measurable pneumothorax. Similar appearance of airspace opacities in the mid and lower lungs. XR/XR chest 1V IMPRESSION: Similar appearance of airspace opacities in the mid and lower lungs compatible with infection. Small left and questionable trace right pleural effusion. D/ / 04/11/2020 14:46:23 Edi Steel / trisha Interpreting Provider: Edi Steel Normal [facility] Complete Blood Count w/o Dif brandon 04-11-2020 Erythrocyte distribution width (RBC) [Ratio] 16.4 % High 11.5-14.5 [facility] Comment on above: Performed By: #### C BCND ####[address] [address] Hematocrit (Bld) [Volume fraction] 31.2 % Low 37.5-50.1 [facility] Comment on above: Performed By: #### C BCND ####[address] [address] Hemoglobin (Bld) [Mass/Vol] 10.3 g/dL Low 12.9-16.9 [facility] Comment on above: Performed By: #### C BCND ####[address] [address] MCH (RBC) [Entitic mass] 33.0 g/dL Normal 31.6-35.5 [facility] Comment on above: Performed By: #### C BCND ####[address] [address] MCH (RBC) [Entitic mass] 32.0 pg Normal 28.0-33.3 [facility] Comment on above: Performed By: #### C BCND ####[address] [address] MCV (RBC) [Entitic vol] 96.9 fL Normal 83.0-100.0 [facility] Comment on above: Performed By: #### C BCND ####[address] [address] Platelet mean volume (Bld) [Entitic vol] 11.9 fL Normal 9.4-12.4 [facility] Comment on above: Performed By: #### C BCND ####[address] [address] Platelets (Bld) [#/Vol] 132 K/mcL Low 140-400 [facility] Comment on above: Performed By: #### C BCND ####[facility] [address] [place] [phone] RBC (Bld) [#/Vol] 3.22 M/mcL Low 4.19-5.50 [facility] Comment on above: Performed By: #### C BCND ####[facility] [address] [place] [phone] WBC (Bld) [#/Vol] 13.1 K/mcL High 4.3-11.1 [facility] Comment on above: Performed By: #### C BCND ####[facility] [address] [place] [phone] D-Dimeron 04-11-2020 D-Dimer 6647 ng/mLFEU High 0-500 [facility] Comment on above: Result Comment: A po sitive D-Dimer result does not predict a specific disease. Result should be interpreted in conjunction with the patient's medical history, clinical presentation, and other findings. Performed By: #### D D ####[facility] [address] [place], [place] [phone] Ferritinon 04-11-2020 Ferritin [Mass/Vol] 206 ng/mL Normal 20-250 [facility] Comment on above: Performed By: #### P OCGLUCOMETER #### [facility] [address] [place], [place] [phone] Internal Med History&Physica marquise 04-11-2020 Internal Med History&Physical [address] [address] Internal Med History Physical Signed PRELIMINARY DRAFT REPORT UNTIL ELECTRONICALLY SIGNED PATIENT: Mick Cottrell MR#: [id number] : 1940 AGE/SEX: 79 / M ADMITTED: 04/10/20 1654 OUTSIDE LOCN: LOCATION: [address] ATTENDING: Jim Marshall MD cc: ; Date of Encounter: 04/11/20 Time of Encounter: 11:00 Internal Medicine - H P: HPI Chief complaint: Hypoxic resp failure Admitted From: Hospital to Hospital Transfer Plans for Post Hospital Care: Home History of present illness: Mr. Cottrell is a 79 year old male with known past medical history of HFpEF, COPD, CVA, A-Fib, HTN, DM2, BPH who was admitted at [facility] on 03/05 with cough, SOB, and malaise for 5 days. Hospital course complicated by development of new A-Fib RVR as well as acute metabolic encephalopathy. Patient was placed on supplemental O2 and required up to HHFNC at 40L/60%. Patient was given high dose dexamethasone, transfusion of convalescent plasma, and course of remdesivir, with eventual improvement in his symptoms and oxygenation. He was transferred to our [facility] during that hospital ization as lateral transfer to continue his further acute medical care and eventually transitioning him to swing bed for his physical deconditioning. When he was in rehab facility one day he became mo re hypoxic with worsening respiratory failure. He got readmitted at [facility] on 03/28/2020 with acute hyp oxic resp failure due to multi focal pneumonia. He happened to have hemoptysis too. He was evaluated by Technical Planner who held his anti coag Eliquis and continued IV Decadran and empirical abx Levaqui n. His hemoptysis resolved and his oxygen requirement came down to 4-6 lit now. Due to bed crunch fo r Covid positive patients at [facility] he was sent to our facility [facility] as lateral trasnfer to continue f urther medical care and possible rehab when he becomes more medically stable. Pt was seen and examined at bed side. He is alert, awake and O x 4. He denied any CP/SOB. He does look weak and lethargic. He still has moderate LOPEZ. He does have cough with expectoration. He is currently between 3-4 lit O2. He denied any N/V/D. he denied any GI/ symptoms. Past Med Surg Social Fam HX - Past Medical History Medical history: COPD, CVA, diabetes, hypertension Additional medical history: right lung drainage - pt reports 1800cc of drainage from "center sac" of lung Psychiatric history: depression - Past Surgical History Surgical History: heart valve replacement Additional surgical history: lung drained, tonsillectomy, nasal surgery, loop recorder removal. heart valve replacement - cow valve - Social History Smoking Status: Former smoker Smokeless Tobacco Status: No Alcohol use: none Drug use: none - Family History Father Living Status: Hx Family Cardiac Disorders: Yes (HTN) Hx Family Endocrine Disorder: Yes (DM) Mother Living Status: Hx Family Cardiac Disorders: Yes (HTN, CAD) Hx Family Cancer: Yes (breast, colon) Hx Family Endocrine Disorder: Yes (DM) Internal Medicine - H P: Meds Aspirin Enteric Coated [Aspirin EC] 81 mg PO DAILY 09/30/15 [History] Mirtazapine [Remeron] 15 mg PO HS 03/05/20 [History] Albuterol Sulfate [Albuterol Sulfate Hfa] 2 puff IH Q4-6H PRN 03/06/20 [History] Atorvastatin [Lipitor] 40 mg PO HS 03/06/20 [History] Finasteride [Proscar] 5 mg PO DAILY 03/06/20 [History] Furosemide [Lasix] 20 mg PO DAILY 03/06/20 [History] Metformin HCl 1,000 mg PO BID 03/06/20 [History] Montelukast [Singulair] 10 mg PO QPM 03/06/20 [History] Omeprazole [PriLOSEC] 40 mg PO DAILY 03/06/20 [History] Topiramate [Topamax] 50 mg PO BID 03/06/20 [History] Vit C/E/Zn/Coppr/Lutein/Z eaxan [Preservision Areds 2 Softgel] 1 cap PO BID 03/06/20 [History] Losartan [Cozaar] 25 mg PO DAILY #30 tablet 03/19/20 [Rx] Budesonide/Formoterol 160/4.5 [Symbicort 160/4.5] 2 puff IH BIDR inh 04/09/20 [Rx] Cholecalciferol (D-3) [Vitamin D] 1,000 unit PO DAILY tablet 04/09/20 [Rx] Ipratropium [ATROVENT Inhaler] 2 puff IH [id number] inhaler 04/09/20 [Rx] Metoprolol [Lopressor] 50 mg PO BID tablet 04/09/20 [Rx] Allergies Allergy/AdvReac Type Severity Reaction Status Date / Time Penicillins Allergy Severe Swelling Verified 03/06/20 16:07 of Lip/Tongue/Throat All Systems PM: A 10-system review of systems was performed and is negative for pertinent findings except as documented above in the HPI. Review of systems: All the systems are reviewed everything is benign except the systems and symptoms I mentioned in the history of present illness - Constitutional Vitals: Temp Pulse Resp BP Pulse Ox 98 F 83 18 120/70 93 04/11/20 10:30 04/11/20 10:30 04/11/20 10:30 04/11/20 10:30 04/11/20 10:30 General appearance: Present: cooperative, mild distress, A O X 3, answers questions appropriately Exam: looks very weak and frail - Head Head exam: Present: atraumatic, normal inspection - Neck Neck exam general surgery: Present: normal inspection, supple. Absent: thyromegaly - Respiratory Respiratory exam: Present: decreased breath sounds, respiratory distress (mild), rhonchi (mild), wheezes (mild). Absent: rales - Cardiovascular Cardiovascular exam: Present: RRR, +S1, +S2, systolic murmur. Absent: tachycardia - GI/Abdominal GI/Abdominal exam: Present: normal bowel sounds, soft. Absent: distended, guarding, rebound, rigid, tenderness - Extremities Exam Extremities exam: Present: normal inspection. Absent: calf tenderness, pedal edema, tenderness - Back Exam Back exam: Absent: CVA tenderness (L), CVA tenderness (R) - Neurological Exam Neurological exam: Present: alert, oriented X3 - Psychiatric Psychiatric exam: Present: anxious, depressed - Skin Skin exam: Absent: rash Internal Med - H P Results - Labs CBC Chem 7: 04/11/20 04:25 04/11/20 04:25 Labs: Short CBC 04/11/20 Range/Units 04:25 WBC 13.1 H (4.3-11.1) K/mcL Hgb 10.3 L (12.9-16.9) g/dL Hct 31.2 L (37.5-50.1) % Plt Count 132 L (140-400) K/mcL BMP 04/11/20 04:25 Sodium 139 Potassium 4.3 Chloride 101 Carbon Dioxide 34 H BUN 35 H Creatinine 0.69 L Glucose 71 Calcium 8.6 - Assessment and Plan (1) Acute respiratory failure with hypoxia Current Visit: No Status: Acute Assessment and plan: Due to multi focal bacterial PNA and Covid inf Continue PO Decadran 6mg.. 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 D-dimer @ 6647 so will cont Lovenox SQ for DVT prophylaxis cont trend on inflammatory markers (3) Multifocal pneumonia Current Visit: No Status: Acute Assessment and plan: Reviewed his CXR and CTA of chest from 03/28 Will repeat CXR again now He did finish his 7 days course of empirical abx Levaquin improving cont symptomatic and supportive care (4) Hemoptysis Current Visit: No Status: Acute Assessment and plan: He did have acute hemoptysis at [facility] due to multi focal PNA Apparently pt refused to go for Bronchoscope there Now his hemoptysis resolved after holding anti coag cont above care (5) Paroxysmal atrial fibrillation Current Visit: No Status: Acute Assessment and plan: rate controlled with Metoprolol Held anti coag Xarelto due to his hemoptysis Cont ASA (6) BPH (benign prostatic hyperplasia) Current Visit: No Status: Chronic Assessment and plan: Cont home meds Qualifiers: Lower urinary tract symptom presence: symptoms absent Qualified Code(s): N40.0 - Benign prostatic hyperplasia without lower urinary tract symptoms (7) COPD (chronic obstructive pulmonary disease) Current Visit: No Status: Chronic Assessment and plan: He was in acute on chronic COPD / Interstitial lung disease exacerbation Improving will cont systemic steroids Decadron 6mg for now, and will cont tapering steroids cont Symbicort Need out pt f/u with Pulmonary Cont bronchodilators as needed Qualifiers: COPD type: unspecified COPD Qualified Code(s): J44.9 - Chronic obstructive pulmonary disease, unspecified (8) CVA (cerebral vascular accident) Current Visit: No Status: Chronic Assessment and plan: cont home meds ASA and Lipitor Qualifiers: CVA mechanism: unspecified Qualified Code(s): I63.9 - Cerebral infarction, unspecified (9) GERD (gastroesophageal reflux disease) Current Visit: No Status: Chronic Assessment and plan: on PPI Qualifiers: Esophagitis presence: with esophagitis Esophagitis bleeding: without hemorrhage Qualified Code(s): K21.00 - Gastro-esophageal reflux disease with esophagitis, without bleeding (10) HTN (hypertension) Current Visit: No Status: Chronic Assessment and plan: stable with current home meds Qualifiers: Hypertension type: essential hypertension Qualified Code(s): I10 - Essential (primary) hypertension (11) Heart failure with preserved ejection fraction Current Visit: No Status: Chronic Assessment and plan: not in exacerbation cont Lasix 20mg Daily cont ASA, Lipitor and Metoprolol Qualifiers: Heart failure chronicity: chronic Qualified Code(s): I50.32 - Chronic diastolic (congestive) heart failure (12) History of aortic valve replacement with bioprosthetic valve Current Visit: No Status: Chronic (13) Physical deconditioning Current Visit: Yes Status: Acute Assessment and plan: cont PT/OT eval - Time Spent With Patient Total time spent is greater than 50% in coordination of care (as documented) at patient's floor/unit and/or counseling patient: Documented By: Jim Marshall MD Signed By: 04/11/20 1217 DD/ 1133 Initialized By: [id number] Normal [facility] Magnesiumon 04-11-2020 Magnesium [Mass/Vol] 1.9 mg/dL Normal 1.6-2.6 [facility] Comment on above: Performed By: #### B MP, MG ####[facility] [address] [place] [address] POC Glucometer Teston 2020 Glucose [Mass/Vol] 82 mg/dL Normal 70-99 [facility] Comment on above: Performed By: #### P OCGLUCOMETER ####[facility] [address] [place] [address] [phone] Glucose [Mass/Vol] 205 mg/dL High 70-99 [facility] Comment on above: Result Comment: Glu2 : RN Notified Performed By: #### P OCGLUCOMETER #### [facility] [address] [place] [address] Glucose [Mass/Vol] 69 mg/dL Low 70-99 [facility] Comment on above: Result Comment: Glu2 : RN Notified Performed By: #### P OCGLUCOMETER #### [facility] [address] [place] [address] Glucose [Mass/Vol] 233 mg/dL High 70-99 [facility] Comment on above: Performed By: #### P OCGLUCOMETER #### [facility] [address] [place] [phone] PT Rehab/Swing Daily Noteon 04-11-2020 PT Rehab/Swing Daily Note Physical Therapy PT Rehab/Swing Daily Note. Start: 04/11/20 09:18 Freq: Status: Active Protocol: Document 04/11/20 15:26 MW (Rec: 04/11/20 15:33 MW [id number]) General/Subjective General Date of Admission 04/10/20 Referring Provider Jim Marshall PT Visit # PM Diagnosis decondtiti PT Treatment Diagnosis Other malaise Additional PT Treatment Diagnosis/ difficulty walking (R26.2), Clarification other reduced mobility (Z74.09 ), generalized muscle weakness (M62.81) Subjective Subjective Patient resting in bed and states he sat up in the chair most of the morning. States he is willing to participate in exercises in bed but is pretty tired. Precautions Restrictions/Precauti ons fall risk, bed/chair alarms, on 3L of supplemental O2 at time of eval, recent loss of spouse, CHENEGA, wound on sacrum Objective Vital Signs Vitals at time of rehab on 3L of supplemental O2: SpO2 at 95% or higher Therapeutic Exercises Therapeutic Exercise supine ther ex martita LE 2x10: ankle pumps, heel slides, SLR (Katie), hip abd, quad set with 3 sec hold, glute set with 3 sec hold, hip add iso with 3 sec hold; diaphragmatic breathing technique 3 minutes Exercise Comment intermittent rest breaks for fatigue management; completes supine ther ex with verbal cues and only Katie for SLR Rehab Education Education Provided Education Provided: Details Educated patient on breathing technique to maintain SpO2 at 90% or greater when completing exertional activities. Teaching Recipient Patient Teaching Method Demonstration Response to Teaching Return demonstration,Verbali ze understanding,Reinfor cement needed Assessment and Plan Assessment Assessment Focused treatment on gross LE strengthening and diaphragmatic breathing technique to improve tolerance with functional mobility. He exhibits fair tolerance to supine ther ex requiring verbal cues for proper technique and only Katie to complete SLR but otherwise able to complete exercises without manual assistance. Patient maintains SpO2 at 95% or greater while on 3L of O2. Educated on diaphragmatic breathing and patient able to demonstrate with verbal cues. Patient resting in bed with alarm on, stable vitals, and all needs met. Disposition at end of Eval/Treatment In bed,Lines intact,Bed Alarm, Call light/phone within reach, Tray table within reach,All needs met Plan Plan Continue to progress gross LE strength and endurance per patient tolerance to allow ease in completing functional mobility. Time Started 14:00 Time Ended 14:25 Total Treatment Time (Min) (min) 25 Timed Code Treatment Minutes (min) 25 Charge Sheet G-Code Therapies Protocol: REHAB.8MIN Therapeutic Exercise 2 Documentation Complete PT Charges/Documentation Finished? Yes Last Visit Is patient being discharged from PT No today? Preliminary Draft Until Electronically Signed by Supervising Therapist [facility] Electrocardiograph Reporton 04-10-2020 [place] [address] Electrocardiograph Report Signed PRELIMINARY DRAFT REPORT UNTIL ELECTRONICALLY SIGNED PATIENT: Mick Cottrell MR#: [id number] : 1940 AGE/SEX: 79 / M ADMITTED: 04/10/20 1654 OUTSIDE LOCN: [address]: [address] ATTENDING: Jim Marshall MD READING PHYSICIAN: Rogelio Chapa TECHNOLOGIST: MONICO PHYSICIAN: Madai Enrique PRIMARY PHYSICIAN: Jim Marshall DATE OF SERVICE: 04/10/20 ACCESSION NUMBERS(S): [id number] HT: 182.88 WT: 177 PROCEDURE(S): ECG 12 lead ECG cc: ; [address] [place] [address] Test Date: 2020-04-10 Pat Name: Mick Cottrell Department: 2001 Room: 113 Gender: M Digital Imaging Specialist: : 1940 Requested By: Madai Enrique Order Number: [id number] Reading MD: Rogelio Chapa Measurements Intervals Floris Rate: 108 P: UT: 0 QRS: 79 QRSD: 89 T: 79 QT: 337 QTc: 401 Interpretive Statements ATRIAL FIBRILLATION WITH RAPID VENTRICULAR RESPONSE NONSPECIFIC ST T-WAVE ABNORMALITY ABNORMAL RHYTHM ECG Electronically Signed On 04-15-2020 9:24:39 EST by Rogelio Smith [facility] PT Discharge Noteon 03-29-19 PT Discharge Note PT Rehab/Swing Discharge Start: 03/22/20 15:55 Freq: Status: Discharge Protocol: Document 03/29/20 12:03 MW (Rec: 03/29/20 12:10 MW [id number]) Physical Therapy Discharge General Discharge Date 03/28/20 Referring Provider Jim Marshall Diagnosis covid19 PT Treatment Diagnosis Muscle weakness (generalized) Additional PT Treatment Diagnosis/ other reduced mobility, Clarification difficulty in walking Reason for Discharge Transfer (other facility/level of care) Restrictions/Precauti ons covid isolation lifted , fall precautions, CHENEGA, use O2 @ eval, recent loss of spouse Goal Review Physical Therapy STG's 1. Pt will perform mobilities and transfers LANCE with device to return home safely. (Not met: completes mobility and transfers at SBA to CGA) 2. Pt will ambulate 100 feet with ww lance with oxygen saturations maintained above 90% for improved functional endurance at home. (Not met: amb 40-80ft at CGA to Katie with FWW) 3. Pt will tolerate 3:00 standing activity without rest and maintaining oxygen saturations above 90% for improved funtional endurance. (Not met: poor activity tolerance and fluctuations in oxygen saturation requiring frequent verbal cues for breathing technique) 4. Pt will be given written HEP and demonstrate I. (Not met) 5. Pt will improve AM-PAC for mobility to 20 or greater for less than 33.32% functional impairments. (Not met: AM-PAC Raw Score=18; CMS Score=40.47% impairment) Progression Toward Goals Patient has made fair progress with physical therapy but has not met all goals. Patient has been transferred from [facility] to [facility] for more appropriate care due to change in medical status. D/C Status, HEP Recommendations/Other Physical Therapy Recommendations PT recommending 24 hour assistance to safely complete functional mobility (transfers , ambulation, bed mobility). Discharge Location/Services Patient has been transferred from [facility] to [facility] secondary to change in medical status. Summary Summation Outcome Measures/Standardized Assessment [facility]-PAC 6- Used Clicks Basic Mobility V2 Inpatient Short Form: AM-PAC Raw Score=18; CMS Score=40.47% Impairment Discharge Assessment Patient has been transferred from [facility] to [facility] secondary to change in medical status. Patient has not met all goals and will need 24 hour assistance to ensure safety when completing functional mobility. Charge Sheet G-Code Documentation Complete PT Charges/Documentation Finished? Yes Last Visit Is patient being discharged from PT Yes today? Preliminary Draft Until Electronically Signed by Supervising Therapist [facility] Arterial Blood Gason 021 ABG Base Excess -3 mEq/L Low -2 to 3 [facility] Comment on above: Performed By: #### A BG ####[facility] [address] [place] [address] ABG HCO3 20 mEq/L Low 21-27 [facility] Comment on above: Performed By: #### A BG ####[facility] [address] [place] [address] 16165 ABG Oxygen Saturation 94 % Low 95-98 [facility] Comment on above: Performed By: #### A BG ####[facility] [address] [place] [address] ABG PCO2 30 mmHg Low 35-45 [facility] Comment on above: Performed By: #### A BG ####[facility] [address] [place] [address] ABG PH 7.43 pH Units Normal 7.32-7.45 [facility] Comment on above: Performed By: #### A BG ####[facility] [address] [place], [place] [address] ABG PO2 67 mmHg Low 85-104 [facility] Comment on above: Performed By: #### A BG ####[facility] [address] [place], [place] [id number] ABG TCO2 21 mEq/L Normal 20-26 [facility] Comment on above: Performed By: #### A BG ####[facility] [address] [place] [address] [id number] 03-28-[address] [address] XRay Report Signed PRELIMINARY DRAFT REPORT UNTIL ELECTRONICALLY SIGNED PATIENT: Mick Cottrell MR#: [id number] : 1940 AGE/SEX: 79 / M ADMITTED: 03/22/20 1528 OUTSIDE LOCN: LOCATION: [address] ATTENDING: Jim Marshall MD ORDER PHYSICIAN: Jenaro Morales BIRAD: DATE OF SERVICE: 03/28/20 FOLLOW UP: ACCESSION NUMBERS(S): [id number] PROCEDURE(S): XR chest 1V REASON FOR EXAM: sob cc: Jenaro Morales; Jim Marshall; EXAMINATION: ONE XRAY VIEW OF THE CHEST 03/28/2020 9:39 am COMPARISON: 03/05/2020 HISTORY: ORDERING SYSTEM PROVIDED HISTORY: sob COVID positive, shortness of breath. FINDINGS: The heart size is within normal limits. A prosthetic aortic valve is noted. The patient is status post sternotomy. Bilateral airspace disease has developed in the interim most pronounced at the left mid lung. There is right peripheral mid lung consolidation. Bibasilar airspace disease is noted. A pneumothorax is not identified. There is patchy airspace disease in the left upper lobe. There may be small bilateral pleural effusions. XR/XR chest 1V IMPRESSION: Moderate bilateral airspace disease. Consider a moderate to severe viral or atypical pneumonia. D/ / 03/28/2020 10:03:52 Irving Dickson MD / patricia Interpreting Provider: Irving Dickson MD [facility] Complete Blood Count w/o Dif brandon 03-28-2020 Platelets (Bld) [#/Vol] 53 K/mcL Low 140-400 [facility] Comment on above: Performed By: #### C BCND ####[address] [address] Erythrocyte distribution width (RBC) [Ratio] 13.4 % Normal 11.5-14.5 [facility] Comment on above: Performed By: #### C BCND ####[address] [address] Hematocrit (Bld) [Volume fraction] 33.1 % Low 37.5-50.1 [facility] Comment on above: Performed By: #### C BCND ####[address] [address] Hemoglobin (Bld) [Mass/Vol] 11.0 g/dL Low 12.9-16.9 [facility] Comment on above: Performed By: #### C BCND ####[address] [address] MCH (RBC) [Entitic mass] 33.2 g/dL Normal 31.6-35.5 [facility] Comment on above: Performed By: #### C BCND ####[address] [address] MCH (RBC) [Entitic mass] 30.9 pg Normal 28.0-33.3 [facility] Comment on above: Performed By: #### C BCND ####[address] [address] MCV (RBC) [Entitic vol] 93.0 fL Normal 83.0-100.0 [facility] Comment on above: Performed By: #### C BCND ####[address] [address] Platelet mean volume (Bld) [Entitic vol] 11.5 fL Normal 9.4-12.4 [facility] Comment on above: Performed By: #### C BCND ####[address] [address] RBC (Bld) [#/Vol] 3.56 M/mcL Low 4.19-5.50 [facility] Comment on above: Performed By: #### C BCND ####[address] [address] WBC (Bld) [#/Vol] 5.2 K/mcL Normal 4.3-11.1 [facility] Comment on above: Performed By: #### C BCND ####[address] [address] Comprehensive Metabolic Pane marquise 03-28-2020 Albumin [Mass/Vol] 2.4 g/dL Low 3.5-5.7 [facility] Comment on above: Performed By: #### C MP, TROP ####[address] [address] Albumin/Globulin [Mass ratio] 0.9 {ratio} Low 1.1-2.2 [facility] Comment on above: Performed By: #### C MP, TROP ####[address] [address] ALP [Catalytic activity/Vol] 84 Units/L Normal 34-104 [facility] Comment on above: Performed By: #### C MP, TROP ####[address] [address] ALT [Catalytic activity/Vol] 12 Units/L Normal 7-52 [facility] Comment on above: Performed By: #### C MP, TROP ####[address] [address] AST [Catalytic activity/Vol] 11 Units/L Low 13-39 [facility] Comment on above: Performed By: #### C MP, TROP ####[address] [address] Bilirubin [Mass/Vol] 0.9 mg/dL Normal 0.3-1.0 [facility] Comment on above: Performed By: #### C MP, TROP ####[address] [address] Calcium [Mass/Vol] 8.1 mg/dL Low 8.6-10.3 [facility] Comment on above: Performed By: #### C MP, TROP ####[address] [address] Chloride [Moles/Vol] 104 mmol/L Normal 98-107 [facility] Comment on above: Performed By: #### C MP, TROP ####[address] [address] CO2 [Moles/Vol] 21 mmol/L Low 23-29 [facility] Comment on above: Performed By: #### C MP, TROP ####[address] [address] Creatinine [Mass/Vol] 0.71 mg/dL Normal 0.70-1.30 [facility] Comment on above: Performed By: #### C MP, TROP ####[address] [address] eGFR For Americans > 60 Normal > 60 [facility] Comment on above: Result Comment: eGFR = Estimated Glomerular Filtration Rate reported as mL/min/1.73 square meters Chronic Kidney Disease: < 60; Kidney failure: < 15 Performed By: #### C MP, TROP ####[address] [address] eGFR For Non- Americans > 60 Normal > 60 [facility] Comment on above: Performed By: #### C MP, TROP ####[address] [address] Globulin (S) [Mass/Vol] 2.6 g/dL Normal 2.4-3.5 [facility] Comment on above: Performed By: #### C MP, TROP ####[address] [address] Glucose [Mass/Vol] 214 mg/dL High 70-105 [facility] Comment on above: Performed By: #### C MP, TROP ####[address] [address] Osmolality,Calculated 283 Normal 280-300 [facility] Comment on above: Performed By: #### C MP, TROP ####[address] [address] Potassium [Moles/Vol] 3.5 mmol/L Normal 3.5-5.1 [facility] Comment on above: Performed By: #### C MP, TROP ####[address] [address] Protein [Mass/Vol] 5.0 g/dL Low 6.4-8.9 [facility] Comment on above: Performed By: #### C MP, TROP ####[facility] [address] [place] [address] Sodium [Moles/Vol] 133 mmol/L Low 136-145 [facility] Comment on above: Performed By: #### C MP, TROP ####[facility] [address] [place] [address] Urea nitrogen [Mass/Vol] 15 mg/dL Normal 8-23 [facility] Comment on above: Performed By: #### C MP, TROP ####[facility] [address] [place] [address] [phone] Urea nitrogen/Creatinine [Mass ratio] 21 mg/mg Normal 6-26 [facility] Comment on above: Performed By: #### C MP, TROP ####[facility] [address] [place] [address] [id number] Electrocardiograph Reporton 03-28-2020 Electrocardiograph Report [address] [address] Electrocardiograph Report Signed PRELIMINARY DRAFT REPORT UNTIL ELECTRONICALLY SIGNED PATIENT: Mick Cottrell MR#: [id number] : 1940 AGE/SEX: 79 / M ADMITTED: 03/22/20 1528 OUTSIDE LOCN: [address] ATTENDING: Jim Marshall MD READING PHYSICIAN: Rogelio Chapa TECHNOLOGIST: MONICO PHYSICIAN: Jenaro Morales PRIMARY PHYSICIAN: Jim Marshall DATE OF SERVICE: 03/28/20 ACCESSION NUMBERS(S): [id number] HT: 183 WT: 173 PROCEDURE(S): ECG 12 lead ECG cc: ; [address] [address] Test Date: 2020-03-28 Pat Name: Mick Cottrell Department: 2001 Room: 113 Gender: M Digital Imaging Specialist: : 1940 Requested By: Jenaro Nova Number: [id number] Reading MD: Rogelio Chapa Measurements Intervals Floris Rate: 86 P: 72 UT: 180 QRS: 77 QRSD: 78 T: 84 QT: 299 QTc: 343 Interpretive Statements SINUS RHYTHM ST DEVIATION AND MODERATE T-WAVE ABNORMALITY, CONSIDER LATERAL ISCHEMIA [-0.1+ mV T WAVE IN I/aVL/V5/V6] Electronically Signed On 03-31-2020 16:51:52 EST by Rogelio Chapa [facility] OT Discharge Noteon 03-28-19 OT Discharge Note Occupational Therapy OT Rehab/Swing Discharge Instruction Start: 03/23/20 08:59 Freq: Status: Active Protocol: Document 03/28/20 11:36 [facility] (Rec: 03/28/20 11:39 [facility] [id number]) Occupational Therapy Discharge General Discharge Date 03/28/20 Referring Provider Jim Marshall Diagnosis covid19 OT Treatment Diagnosis Need for assistance with personal care Additional OT Treatment Diagnosis/ hx COPD Clarification Reason for Discharge Transfer (other facility/level of care) Goal Review Occupational Therapy STG's w/in 1 week: 1. (Not achieved) setup for adl while O2 stats > 90% 2. (Not achieved with safe O2 sats) MRADL w/ toileting cga Occupational Therapy LTG's 1. (Not achieved) mod i dressing, shower stall use, grooming 2. (Not achieved) mod i toileting task 3. (Not achieved) mod i w/ light meal prep task and item transport w/ walker 4. (Not achieved) safe walker use for 10 min standing/light MRADL task adl/iadl Progression Toward Goals Pt has made progress toward goals in occupational therapy, however recent medical decline requiring transfer to alternative facility. End this OT POC at this time. OT Rehab/Swing Discharge Recommendations Recommendations/Other Occupational Therapy Recommendations Pt requiring 24 hour physical assistance for safe, adequate completion of ADL tasks when discharged from [facility]. Summary Summation Standardized Testing/Functional Outcomes FIM on eval Utilized/Results Discharged With Pt is discharging from [facility] to [facility] for increased medical needs. Charge Sheet G-Code Documentation Complete OT Charges/Documentation Finished? Yes Preliminary Draft Until Electronically Signed by Supervising Therapist [facility] POC Glucometer Teston 2020 Glucose [Mass/Vol] 200 mg/dL High 70-99 [facility] Comment on above: Performed By: #### P OCGLUCOMETER #### [facility] [address], [place] [phone] Glucose [Mass/Vol] 129 mg/dL High 70-99 [facility] Comment on above: Performed By: #### P OCGLUCOMETER #### [facility] [address], [place] [id number] PT Rehab/Swing Daily Noteon 03-28-2020 PT Rehab/Swing Daily Note Physical Therapy PT Rehab/Swing Daily Note. Start: 03/22/20 15:55 Freq: Status: Active Protocol: Document 03/28/20 09:22 [facility] (Rec: 03/28/20 09:39 [facility] [id number]) General/Subjective General Date of Admission 03/22/20 Referring Provider Jim Marshall PT Visit # AM Diagnosis covid19 PT Treatment Diagnosis Muscle weakness (generalized) Additional PT Treatment Diagnosis/ other reduced mobility, Clarification difficulty in walking Subjective Subjective Patient reports he is having trouble with breathing through his nose. Reports he is willing to work with SCIENTIFIC SOFTWARE DEVELOPER, but very frustrated during session . Precautions Restrictions/Precauti ons covid isolation lifted , fall precautions, CHENEGA, use O2 @ eval, recent loss of spouse Objective Mobility Bed Mobility Scooting up in bed CGA with verbal cues for sequencing Transfers supine-sit SBA with head of bed slightly inclined stand pivot from EOB to bedside commode CGA Balance seated: SBA on bedside commode while monitoring O2 standing: CGA with UE Balance support Therapeutic Exercises Therapeutic Exercise supine: ankle pumps x10 reps Assessment and Plan Assessment Assessment Patient laying in bed upon arrival. Started session with supine ankle pumps. Patient became frustrated that he was down too low in bed. Worked on trying to scoot up in bed with assist and vocal cues required. Patient then requested to use urinal and then requested to s/u and transfer to bedside commode. Upon sitting up on EOB patient c/o sturggling with breathing . Respiratory therapist at door and SCIENTIFIC SOFTWARE DEVELOPER asked if there was more we could do to assist patients c/o not being able to breath through his nose. Patient then transfered to toilet. Respirtatory therapist returned and put a new O2 mask on patient. SCIENTIFIC SOFTWARE DEVELOPER checked O2 on 5L at 80%. Respiratory therapist then increased O2 and took over the tx session. Jenaro HARRIS then came in and requested SCIENTIFIC SOFTWARE DEVELOPER put patient on hold for therapy at this time. Left patient in care of respiratory therapist and ACTIVITY THERAPY SPECIALIST. Spoke with Elysia Ceballos PT about patients current status. Plan Plan Cont as tolerated. Time Started 09:00 Time Ended 09:15 Total Treatment Time (Min) (min) 15 Timed Code Treatment Minutes (min) 15 Charge Sheet G-Code Therapies Protocol: REHAB.8MIN Therapeutic Activity 1 Documentation Complete PT Charges/Documentation Finished? Yes Last Visit Is patient being discharged from PT No today? Preliminary Draft Until Electronically Signed by Supervising Therapist [facility] SARS-CoV-2 by Isothermal JONG on 03-28-2020 SARS-CoV-2 by Isothermal JONG Negative Normal Negative [facility] Comment on above: Order Comment: 79Nas opharyngeal Result Comment: Nega tive results should be treated as presumptive and, if inconsistent with clinical signs and symptoms or necessary for patient management, should be tested with an alternative molecular assay. A negative result does not rule out co-infections with other pathogens. Note: This Gee ID NOW COVID-19 nucleic acid test has not been FDA cleared or approved. This test has been authorized by FDA under an Emergency Use Authorization (EUA). This test is only authorized for the duration of time the declaration that circumstances exist justifying the authorization of the emergency use of in vitro diagnostic tests for the detection of SARS-CoV-2 virus and/or diagnosis of COVID-19 infection under section 564(b)(1) of the Act, 21 U.S.C. 360bbb-3(b)(1), unless the authorization is terminated or revoked sooner. Fact Sheet for Healthcare Providers: https://www.fda.gov/media/716765/download Fact Sheet for Patients: https://www.fda.gov/media/907899/download Performed By: #### P OCGLUCOMETER #### [facility] [address] [place] [address] Troponin Ion 03-28-2020 Troponin I.cardiac [Mass/Vol] 0.06 ng/mL Critically high < 0.04 [facility] Comment on above: Result Comment: Crit ical Result I_TnI:0.06, Result Phoned to: GRACE JOEL by: BRYCE ARMSTRONG on: 03/28/2020 10:29:06. Verified by Read Back. Performed By: #### C MP, TROP ####[facility] [address] [place] [address] Complete Blood Counton 03-27 Platelets (Bld) [#/Vol] 54 K/mcL Low 140-400 [facility] Comment on above: Performed By: #### P OCGLUCOMETER #### [facility] [address] [place] [address] Basophils (Bld) [#/Vol] 0.0 K/mcL Normal 0.0-0.2 [facility] Comment on above: Performed By: #### P OCGLUCOMETER #### [facility] [address] [place] [address] Basophils/100 WBC (Bld) 0.2 % Normal [facility] Comment on above: Performed By: #### P OCGLUCOMETER #### [facility] [address] [place] [address] Eosinophils (Bld) [#/Vol] 0.1 K/mcL Normal 0.0-0.6 [facility] Comment on above: Performed By: #### P OCGLUCOMETER #### [facility] [address] [place] [address] Eosinophils/100 WBC (Bld) 1.1 % Normal [facility] Comment on above: Performed By: #### P OCGLUCOMETER #### [facility] [address] [place] [address] Erythrocyte distribution width (RBC) [Ratio] 13.5 % Normal 11.5-14.5 [facility] Comment on above: Performed By: #### P OCGLUCOMETER #### [facility] [address] [place] [address] Hematocrit (Bld) [Volume fraction] 32.7 % Low 37.5-50.1 [facility] Comment on above: Performed By: #### P OCGLUCOMETER #### [facility] [address] [place] [address] Hemoglobin (Bld) [Mass/Vol] 10.9 g/dL Low 12.9-16.9 [facility] Comment on above: Performed By: #### P OCGLUCOMETER #### [facility] [address] [place] [address] Immature granulocytes/100 WBC (Bld) 0.3 % Normal 0-4 [facility] Comment on above: Performed By: #### P OCGLUCOMETER #### [facility] [address] [place] [address] Lymphocytes (Bld) [#/Vol] 0.3 K/mcL Low 0.6-4.6 [facility] Comment on above: Performed By: #### P OCGLUCOMETER #### [facility] [address] [place] [address] Lymphocytes/100 WBC (Bld) 4.7 % Normal [facility] Comment on above: Performed By: #### P OCGLUCOMETER #### [facility] [address] [place] [address] MCH (RBC) [Entitic mass] 31.5 pg Normal 28.0-33.3 [facility] Comment on above: Performed By: #### P OCGLUCOMETER #### [facility] [address] [place] [address] MCH (RBC) [Entitic mass] 33.3 g/dL Normal 31.6-35.5 [facility] Comment on above: Performed By: #### P OCGLUCOMETER #### [facility] [address] [place] [address] MCV (RBC) [Entitic vol] 94.5 fL Normal 83.0-100.0 [facility] Comment on above: Performed By: #### P OCGLUCOMETER #### [facility] [address] [place] [address] Monocytes (Bld) [#/Vol] 0.5 K/mcL Normal 0.0-1.3 [facility] Comment on above: Performed By: #### P OCGLUCOMETER #### [facility] [address] [place] [address] Monocytes/100 WBC (Bld) 7.2 % Normal [facility] Comment on above: Performed By: #### P OCGLUCOMETER #### [facility] [address] [place] [address] Neutrophils (Bld) [#/Vol] 5.5 K/mcL Normal 1.6-8.9 [facility] Comment on above: Performed By: #### P OCGLUCOMETER #### [facility] [address] [place] [address] Platelet mean volume (Bld) [Entitic vol] 11.1 fL Normal 9.4-12.4 [facility] Comment on above: Performed By: #### P OCGLUCOMETER #### [facility] [address] [place] [phone] RBC (Bld) [#/Vol] 3.46 M/mcL Low 4.19-5.50 [facility] Comment on above: Performed By: #### P OCGLUCOMETER #### [facility] [address] [place] [address] Segmented neutrophils/100 WBC (Bld) 86.5 % Normal [facility] Comment on above: Performed By: #### P OCGLUCOMETER #### [facility] [address] [place] [address] WBC (Bld) [#/Vol] 6.4 K/mcL Normal 4.3-11.1 [facility] Comment on above: Performed By: #### P OCGLUCOMETER #### [facility] [address] [place] [address] POC Glucometer Teston 2020 Glucose [Mass/Vol] 209 mg/dL High 70-99 [facility] Comment on above: Performed By: #### P OCGLUCOMETER ####[facility] [address] [place] [address] Glucose [Mass/Vol] 193 mg/dL High 70-99 [facility] Comment on above: Performed By: #### P OCGLUCOMETER ####[facility] [address] [place] [address] Glucose [Mass/Vol] 157 mg/dL High 70-99 [facility] Comment on above: Performed By: #### P OCGLUCOMETER #### [facility] [address] [place] [address] Glucose [Mass/Vol] 104 mg/dL High 70-99 [facility] Comment on above: Performed By: #### P OCGLUCOMETER #### [facility] [address] [place] [address] Internal Med Progress Noteon 03-26-2020 Internal Med Progress Note [address] [address] Internal Med Progress Note Signed PRELIMINARY DRAFT REPORT UNTIL ELECTRONICALLY SIGNED PATIENT: Mick Cottrell MR#: [id number] : 1940 AGE/SEX: 79 / M ADMITTED: 03/22/20 1528 OUTSIDE LOCN: LOCATION: [address] ATTENDING: Jim Marshall MD cc: ; Date of Encounter: 03/26/20 Time of Encounter: 11:42 - Assessment and plan (1) COVID-19 Current Visit: Yes Status: Acute Assessment and plan: He was diagnosed with Covid 19 on 03/05/2020, out of isloation He was treated at [facility] for Covid 19 pneumonia and was treated with empiric antibiotics, Decadron and transfusion of convalescent plasma, along with Remdesivir maintaining oxygen saturation on 3 to 4 L per nasal cannula. will wean when able. Encourage frequent incentive siprometry and flutter valve therapy cont supportive care (2) Diabetes mellitus Current Visit: Yes Status: Chronic Assessment and plan: on ADA diet on ISS cont home PO meds His HbA1C 7.0 Qualifiers: Diabetes mellitus type: type 2 Diabetes mellitus ranch hand insulin use: without ranch hand use Diabetes mellitus complication status: without complication Qualified Code(s): E11.9 - Type 2 diabetes mellitus without complications (3) History of aortic valve replacement with bioprosthetic valve Current Visit: Yes Status: Chronic (4) COPD exacerbation Current Visit: Yes Status: Acute Assessment and plan: Improved. Continue bronchodilators. Symbicort started. (5) Acute respiratory failure with hypoxia Current Visit: Yes Status: Acute Assessment and plan: Improving. This is due to Covid infection and pneumonia. Continues to maintaining oxygen saturation greater than 92% on 3 to 4 L. Will wean as able. (6) HTN (hypertension) Current Visit: Yes Status: Chronic Assessment and plan: Controlled with medication. Monitor blood pressure. Qualifiers: Hypertension type: essential hypertension Qualified Code(s): I10 - Essential (primary) hypertension (7) Systolic heart failure Current Visit: Yes Status: Chronic Assessment and plan: Stable. Continue aspirin, Lipitor, metoprolol and Lasix. Qualifiers: Heart failure chronicity: chronic Qualified Code(s): I50.22 - Chronic systolic (congestive) heart failure (8) GERD (gastroesophageal reflux disease) Current Visit: Yes Status: Chronic Assessment and plan: Stable with omeprazole. Monitor. Qualifiers: Esophagitis presence: with esophagitis Esophagitis bleeding: without hemorrhage Qualified Code(s): K21.00 - Gastro-esophageal reflux disease with esophagitis, without bleeding - Time Spent With Patient less than 15 minutes - Subjective Interval history: Mr. Cottrell is a 79 year old male with known past medical history of HFpEF, COPD, CVA, A-Fib, HTN, DM 2, BPH who was admitted at [facility] on 03/05 with cough, SOB, and malaise for 5 days. In the ED, he was found to be hypoxic, wheezing, and covid19 positive, concerning for covid19 pneumonia causing COPD e xacerbation, acute hypoxic respiratory failure, and sepsis. Hospital course complicated by developme nt of new A-Fib RVR as well as acute metabolic encephalopathy. Patient was placed on supplemental O2 and required up to HHFNC at 40L/60%. Patient was given high dose dexamethasone, transfusion of conv alescent plasma, and course of remdesivir, with eventual improvement in his symptoms and oxygenation . He did become encephalopathic requiring precedex gtt, which improved as respiratory status improve d. Did also develop A-fib, for which his metoprolol was continued and patient was started on Xarelto . He was transferred to our [facility] as lateral transfer to continue his further acute medical care and eventually transitioning him to swing bed for his physical deconditioning. We continued his symptoma tic and supportive care. He was evaluated by PT/OT who recommend short term rehab. So pt was pedro rred to rehab facility. Patient examined at bedside, alert and oriented times 4. Denies fever, chills, nausea vomiting or diarrhea. Denies chest pain or shortness of breath. Continues 3 to 4 L oxygen per nasal cannula. Participating well in therapy. - Constitutional Vitals: Temp Pulse Resp BP Pulse Ox 98.3 F 75 13 133/64 75 03/25/20 18:36 03/26/20 06:00 03/26/20 06:00 03/26/20 06:00 03/26/20 06:00 General appearance: Present: cooperative, A O X 3, pleasant, no acute distress, answers questions a ppropriately - Head Head exam: Present: atraumatic, normocephalic - Eye Eye exam: Present: PERRL, conjuntiva pink, sclera anicteric Pupils: Present: PERRL - Neck Neck exam general surgery: Present: supple, trachea midline. Absent: lymphadenopathy - Respiratory Respiratory exam: Present: decreased breath sounds, CTAB. Absent: accessory muscle use, rales, rhonchi, wheezes - Cardiovascular Cardiovascular exam: Present: RRR, +S1, +S2. Absent: diastolic murmur, gallop, rubs, systolic murmur - GI/Abdominal GI/Abdominal exam: Present: normal bowel sounds, soft, no peritoneal signs. Absent: distended, tenderness - Extremities Exam Extremities exam: Present: warm, radial pulses palpable and symmetrical. Absent: calf tenderness, cyanotic, pedal edema - Neurological Exam Neurological exam: Present: CN II-XII intact, oriented X3, no focal deficits. Absent: pronater drift, facial droop, speech deficit - Skin Skin exam: Present: dry, intact Internal Medicine: Result - Labs CBC Chem 7: 03/23/20 05:48 03/23/20 05:48 Consult Discharge Plan - Plan Referrals: Jim Marshall MD [Primary Care Provider] - Documented By: Capri Iqbal EDUCATION PROGRAM ASSOCIATE Signed By: 03/26/20 1143 DD/ 1142 Initialized By: [id number] Normal [facility] OT Swing/Rehab Daily Noteon 03-26-2020 OT Swing/Rehab Daily Note Occupational Therapy OT Rehab/Swing Daily Note Start: 03/23/20 08:59 Freq: Status: Active Protocol: Document 03/26/20 11:32 KMB (Rec: 03/26/20 11:39 KMB [id number]) General/Subjective General Referring Provider Jim Marshall OT Visit # am Diagnosis covid19 OT Treatment Diagnosis Need for assistance with personal care Additional OT Treatment Diagnosis/ hx COPD Clarification Subjective Subjective pt in bed, easily engaged. choosing to stay up. declining pants as states he will be using bsc soon. PT not confident they can see pt today. Restrictions Weight Bearing Restrictions/Precauti ons covid isolation lifted , fall precautions, CHENEGA, use O2 @ eval, recent loss of spouse Objective Vital Signs Vitals at time of rehab 4L O2; O2 sats between 86-91% with multiple breaks, pursed lip breathing, reminders to breathe thgh nose. Functional Ability ADL's - don/doff dayna shirt/button up shirt setup - sponge bathing UE setup - decline LE adl - mulitple breaks Standing/Activity Tolerance tolerate standing for transfers Transfers cga Rehab Education Education Provided Education Provided: Details as above Assessment/Plan Assessment Assessment less success with O2 sats staying > 90% w/ routine tasks and breaks Plan Plan ADLs, walker safety, increase activity tolerance, a/e use for LB for energy conservation Time Started 10:00 Time Ended 10:25 Total Treatment Time (Min) (min) 25 Charge Sheet G-Code Therapies Protocol: REHAB.8MIN Self Care/Home Management 2 Documentation Complete OT Charges/Documentation Finished? Yes Preliminary Draft Until Electronically Signed by Supervising Therapist Normal [facility] POC Glucometer Teston 2020 Glucose [Mass/Vol] 83 mg/dL Normal 70-99 [facility] Comment on above: Performed By: #### P OCGLUCOMETER #### [facility] [address] [place] [address] Glucose [Mass/Vol] 186 mg/dL High 70-99 [facility] Comment on above: Performed By: #### P OCGLUCOMETER ####[facility] [address] [place] [address] Glucose [Mass/Vol] 146 mg/dL High 70-99 [facility] Comment on above: Performed By: #### P OCGLUCOMETER ####[facility] [address] [place] [address] Glucose [Mass/Vol] 129 mg/dL High 70-99 [facility] Comment on above: Performed By: #### P OCGLUCOMETER #### [facility] [address] [place] [address] Glucose [Mass/Vol] 138 mg/dL High 70-99 [facility] Comment on above: Performed By: #### P OCGLUCOMETER #### [facility] [address] [place] [address] POC Glucometer Teston 2020 Glucose [Mass/Vol] 133 mg/dL High 70-99 [facility] Comment on above: Performed By: #### P OCGLUCOMETER #### [facility] [address] [place] [address] Glucose [Mass/Vol] 114 mg/dL High 70-99 [facility] Comment on above: Performed By: #### P OCGLUCOMETER ####[facility] [address] [place] [address] Glucose [Mass/Vol] 100 mg/dL High 70-99 [facility] Comment on above: Performed By: #### P OCGLUCOMETER #### [facility] [address] [place] [address] Glucose [Mass/Vol] 183 mg/dL High 70-99 [facility] Comment on above: Performed By: #### P OCGLUCOMETER ####[facility] [address] [place] [address] Internal Med Progress Noteon 03-24-2020 Internal Med Progress Note [facility] [address] [place] [address] Internal Med Progress Note Signed PRELIMINARY DRAFT REPORT UNTIL ELECTRONICALLY SIGNED PATIENT: Mick Cottrell MR#: [id number] : 1940 AGE/SEX: 79 / M ADMITTED: 03/22/20 1528 OUTSIDE LOCN: LOCATION: [address] ATTENDING: Jim Marshall MD cc: ; Date of Encounter: 03/24/20 Time of Encounter: 12:46 - Assessment and plan (1) COVID-19 Current Visit: Yes Status: Acute Assessment and plan: He was diagnosed with Covid 19 on 03/05/2020 He was treated at [facility] for Covid 19 pneumonia and was treated with empiric antibiotics, Decadron and transfusion of convalescent plasma, along with Remdesivir maintaining oxygen saturation on 3 to 4 L per nasal cannula. Encourage frequent incentive siprometry and flutter valve therapy cont supportive care (2) Diabetes mellitus Current Visit: Yes Status: Chronic Assessment and plan: on ADA diet on ISS cont home PO meds His HbA1C 7.0 Qualifiers: Diabetes mellitus type: type 2 Diabetes mellitus ranch hand insulin use: without ranch hand use Diabetes mellitus complication status: without complication Qualified Code(s): E11.9 - Type 2 diabetes mellitus without complications (3) History of aortic valve replacement with bioprosthetic valve Current Visit: Yes Status: Chronic (4) COPD exacerbation Current Visit: Yes Status: Acute Assessment and plan: Improved. Continue bronchodilators. Symbicort started. (5) Acute respiratory failure with hypoxia Current Visit: Yes Status: Acute Assessment and plan: Improving. This is due to Covid infection and pneumonia. Continues to maintaining oxygen saturation greater than 92% on 3 to 4 L. Will wean as able. (6) HTN (hypertension) Current Visit: Yes Status: Chronic Assessment and plan: Controlled with medication. Monitor blood pressure. Qualifiers: Hypertension type: essential hypertension Qualified Code(s): I10 - Essential (primary) hypertension (7) Systolic heart failure Current Visit: Yes Status: Chronic Assessment and plan: Stable. Continue aspirin, Lipitor, metoprolol and Lasix. Qualifiers: Heart failure chronicity: chronic Qualified Code(s): I50.22 - Chronic systolic (congestive) he art failure (8) GERD (gastroesophageal reflux disease) Current Visit: No Status: Chronic Assessment and plan: Stable with omeprazole. Monitor. Qualifiers: Esophagitis presence: with esophagitis Esophagitis bleeding: without hemorrhage Qualified Code(s): K21.00 - Gastro-esophageal reflux disease with esophagitis, without bleeding - Time Spent With Patient less than 15 minutes - Subjective Interval history: Mr. Cottrell is a 79 year old male with known past medical history of HFpEF, COPD, CVA, A-Fib, HTN, DM2, BPH who was admitted at [facility] on 03/05 with cough, SOB, and malaise for 5 days. In the ED, he was found to be hypoxic, wheezing, and covid19 positive, concerning for covid19 pneumonia causing COPD exacerbation, acute hypoxic respiratory failure, and sepsis. Hospital course complicated by development of new A-Fib RVR as well as acute metabolic encephalopathy. Patient was placed on supplemental O2 and required up to HHFNC at 40L/60%. Patient was given high dose dexamethasone, transfusion of convalescent plasma, and course of remdesivir, with eventual improvement in his symptoms and oxygenation. He did become encephalopathic requiring precedex gtt, which improved as respiratory status improved. Did also develop A-fib, for which his metoprolol was continued and patient was started on Xarelto. He was transferred to our [facility] as lateral transfer to continue his further acute medical care and eventually transitioning him to swing bed for his physical deconditioning. We continued his symptomatic and supportive care. He was evaluated by PT/OT who recommend short term rehab. So pt was trasnferred to rehab facility. Patient examined at bedside, alert and oriented times 4. Denies fever, chills, nausea vomiting or diarrhea. Denies chest pain or shortness of breath. Patient does get shortness of breath with exertion. Continues 3 to 4 L oxygen per nasal cannula. Participating well in therapy. - Constitutional Vitals: Temp Pulse Resp BP Pulse Ox 98.3 F 73 15 131/63 95 03/24/20 07:00 03/24/20 07:00 03/24/20 07:00 03/24/20 07:00 03/24/20 07:00 General appearance: Present: cooperative, A O X 3, pleasant, no acute distress, answers questions appropriately - Head Head exam: Present: atraumatic, normocephalic - Eye Eye exam: Present: PERRL, conjuntiva pink, sclera anicteric Pupils: Present: PERRL - Neck Neck exam general surgery: Present: supple, trachea midline. Absent: lymphadenopathy - Respiratory Respiratory exam: Present: decreased breath sounds, CTAB. Absent: accessory muscle use, rales, rhonchi, wheezes - Cardiovascular Cardiovascular exam: Present: RRR, +S1, +S2. Absent: diastolic murmur, gallop, rubs, systolic murmur - GI/Abdominal GI/Abdominal exam: Present: normal bowel sounds, soft, no peritoneal signs. Absent: distended, tenderness - Extremities Exam Extremities exam: Present: warm, radial pulses palpable and symmetrical. Absent: calf tenderness, cyanotic, pedal edema - Neurological Exam Neurological exam: Present: CN II-XII intact, oriented X3, no focal deficits. Absent: pronater drift, facial droop, speech deficit - Skin Skin exam: Present: dry, intact Internal Medicine: Result - Labs CBC Chem 7: 03/23/20 05:48 12/30/20 05:48 Consult Discharge Plan - Plan Referrals: Jim Marshall MD [Primary Care Provider] - Documented By: Capri Iqbal APN Signed By: 03/24/20 1256 DD/ 1246 Initialized By: [id number] [facility] OT Swing/Rehab Daily Noteon 03-24-2020 OT Swing/Rehab Daily Note Occupational Therapy OT Rehab/Swing Daily Note Start: 03/23/20 08:59 Freq: Status: Active Protocol: Document 03/24/20 12:38 KMT (Rec: 03/24/20 12:46 KMT [id number]) General/Subjective General Referring Provider Jim Marshall OT Visit # am Diagnosis covid19 OT Treatment Diagnosis Need for assistance with personal care Additional OT Treatment Diagnosis/ none identified Clarification Subjective Subjective reports he didn't know if he could walk, reports he gets confused with breathing Restrictions Weight Bearing Restrictions/Precauti ons covid isolation (lifted ), fall precautions, CHENEGA, use O2 @ eval, recent loss of spouse Objective Vital Signs Vitals at time of rehab O2 throughout session greater than 94% Functional Ability ADL's completed LE dressing w/o AE using crossed leg technique, donned pants, socks, shoes sba ; toileting CGA Standing/Activity Tolerance static standing 1.5 minutes CGA Transfers sit to stand CGA; chair transfer CGA, BSC transfer CGA Modalities/Other extensive education on pursed lip breathing for prevention of shallow breathing, decreasing anxiety and greater breath support, limited carry over throughout session without maximal cues Therapeutic Exercise Exercise Comment UE strenghening 2# dowel x10 reps; required verbal and visual demonstration for coordination of pursed lip breathing Assessment/Plan Assessment Assessment fair tolerance, poor tolerance to mobility Plan Plan ADLs, walker safety, increase activity tolerance, a/e use for LB for energy conservation Time Started 10:10 Time Ended 10:55 Total Treatment Time (Min) (min) 45 Charge Sheet G-Code Therapies Protocol: REHAB.8MIN Therapeutic Exercise 1 Self Care/Home Management 2 Documentation Complete OT Charges/Documentation Finished? Yes Preliminary Draft Until Electronically Signed by Supervising Therapist [facility] POC Glucometer Teston 2019 Glucose [Mass/Vol] 154 mg/dL High 70-99 [facility] Comment on above: Performed By: #### P OCGLUCOMETER ####[facility] [address] [place] [address] Glucose [Mass/Vol] 128 mg/dL High 70-99 [facility] Comment on above: Performed By: #### P OCGLUCOMETER ####[facility] [address] [place] [address] Glucose [Mass/Vol] 108 mg/dL High 70-99 [facility] Comment on above: Performed By: #### P OCGLUCOMETER ####[facility] [address] [place] [address] [id number] PT Rehab/Swing Daily Noteon 03-24-2020 PT Rehab/Swing Daily Note Physical Therapy PT Rehab/Swing Daily Note. Start: 03/22/20 15:55 Freq: Status: Active Protocol: Document 03/24/20 10:08 [facility] (Rec: 03/24/20 10:23 [facility] [id number]) General/Subjective General Date of Admission 03/22/20 Referring Provider Jim Marshall PT Visit # AM Diagnosis covid19 PT Treatment Diagnosis Muscle weakness (generalized) Additional PT Treatment Diagnosis/ other reduced mobility, Clarification difficulty in walking Subjective Subjective Pt supine in bed with HOB elevated eating breakfast when SCIENTIFIC SOFTWARE DEVELOPER arrived for first attempt with pt stating he just started eating breakfast and requested more time to finish. SCIENTIFIC SOFTWARE DEVELOPER arrived again with pt agreeable to therapy. Pt stated 0/10 pain at start of session and stated he slept well last night. Pt on 4L of wall air with vitals checked at start of session with O2: 92%. Precautions Restrictions/Precauti ons covid isolation (lifted ), fall precautions, CHENEGA, use O2 @ eval, recent loss of spouse Objective Mobility Bed Mobility Supine->sit with HOB elevated- SBA Transfers Sit<->stand from EOB to RW-CGA Sit<->stand from BSC to RW-CGA Stand->sit from RW to chair- CGA Balance Seated: Mod I Standing: static and dynamic: CGA with UE support Gait Pt amb in room with use of RW with a short step to gait pattern with verbal cues for AD use and safety- 5'/10'-[facility] Assistive Devices Rolling Walker Endurance Fair Other Static standing act at for urinal use with pt able to manage urinal use and depends managment with SCIENTIFIC SOFTWARE DEVELOPER only assisting in balance support at [facility] Therapeutic Exercises Therapeutic Exercise Supine ther ex B LE's all x 10 with constant verbal cues for proper LE alignment, slow and controlled movement: -AP's -Quad set with 3 sec hold -Heel slides -Glute sets with 3 sec hold Assessment and Plan Assessment Assessment SCIENTIFIC SOFTWARE DEVELOPER attempted AM session at 0828 with pt requesting more time to finish breakfast. SCIENTIFIC SOFTWARE DEVELOPER arrived again at 0835 with pt agreeable to begin session. Pt started session with supine ther ex as listed above with pt then requesting to use urinal. Pt refused to don pants this date d/t increased difficulty in clothing management when attempting urinal use but pt was agreeable to don clean gown. Pt progressed with supine->sit EOB f/b sit->stand from EOB to RW with static standing act with SCIENTIFIC SOFTWARE DEVELOPER maintaining balance support at [facility] for pt to use urinal. Pt then progressed with stand->Sit EOB and Nursing arrived to administer meds. Pt donned cleaned gown seated EOB with pt then requesting to use [facility] d/t to urge of a BM. Pt progressed with sit->stand and amb 5' with use of RW f/b stand->sit at [facility]. Pt required extra time in attempts to have a BM with no success this AM. Pt then progressed with sit->stand from [facility] to RW f/b pt amb to standard chair as listed above . Pt left resting seated in chair with chair alarm donned, call light, phone, and tray table within reach. Pt stated 0/10 pain at end of session. Pt o2 4L of wall air throughout session with O2 ranging from 92-95%. Disposition at end of Eval/Treatment Up in chair,Chair Alarm,Call light/phone within reach,Tray table within reach,All needs met Plan Plan Continue to progress LE strengthening, transfers, and mobility to increase pt's functional I. Time Started 08:35 Time Ended 09:15 Total Treatment Time (Min) (min) 40 Timed Code Treatment Minutes (min) 30 Charge Sheet G-Code Therapies Protocol: REHAB.8MIN Therapeutic Exercise 1 Therapeutic Activity 1 Documentation Complete PT Charges/Documentation Finished? Yes Last Visit Is patient being discharged from PT No today? Preliminary Draft Until Electronically Signed by Supervising Therapist Normal [facility] Basic Metabolic Panelon 12-3 Calcium [Mass/Vol] 7.9 mg/dL Low 8.6-10.3 [facility] Comment on above: Performed By: #### B MP ####[address] [address] Chloride [Moles/Vol] 106 mmol/L Normal 98-107 [facility] Comment on above: Performed By: #### B MP ####[address] [address] CO2 [Moles/Vol] 25 mmol/L Normal 23-29 [facility] Comment on above: Performed By: #### B MP ####[address] [address] Creatinine [Mass/Vol] 0.75 mg/dL Normal 0.70-1.30 [facility] Comment on above: Performed By: #### B MP ####[address] [address] eGFR For Americans > 60 Normal > 60 [facility] Comment on above: Result Comment: eGFR = Estimated Glomerular Filtration Rate reported as mL/min/1.73 square meters Chronic Kidney Disease: < 60; Kidney failure: < 15 Performed By: #### B MP ####[facility] [id number] [place] [id number] eGFR For Non- Americans > 60 Normal > 60 [facility] Comment on above: Performed By: #### B MP ####[address] [address] Glucose [Mass/Vol] 109 mg/dL High 70-105 [facility] Comment on above: Performed By: #### B MP ####[facility] [address] [place] [address] Osmolality,Calculated 286 Normal 280-300 [facility] Comment on above: Performed By: #### B MP ####[address] [address] Potassium [Moles/Vol] 3.9 mmol/L Normal 3.5-5.1 [facility] Comment on above: Performed By: #### B MP ####[address] [address] Sodium [Moles/Vol] 136 mmol/L Normal 136-145 [facility] Comment on above: Performed By: #### B MP ####[address] [address] Urea nitrogen [Mass/Vol] 23 mg/dL Normal 8-23 [facility] Comment on above: Performed By: #### B MP ####[address] [address] Urea nitrogen/Creatinine [Mass ratio] 31 mg/mg High 6-26 [facility] Comment on above: Performed By: #### B MP ####[address] [address] Complete Blood Counton 03-23 Platelets (Bld) [#/Vol] Decreased Abnormal Normal [facility] Comment on above: Performed By: #### C BC ####[address] [address] Platelets (Bld) [#/Vol] 69 K/mcL Low 140-400 [facility] Comment on above: Performed By: #### C BC ####[address] [address] Basophils (Bld) [#/Vol] 0.0 K/mcL Normal 0.0-0.2 [facility] Comment on above: Performed By: #### C BC ####[address] [address] Basophils/100 WBC (Bld) 0.1 % Normal [facility] Comment on above: Performed By: #### C BC ####[address] [address] Eosinophils (Bld) [#/Vol] 0.1 K/mcL Normal 0.0-0.6 [facility] Comment on above: Performed By: #### C BC ####[address] [address] Eosinophils/100 WBC (Bld) 1.7 % Normal [facility] Comment on above: Performed By: #### C BC ####[address] [address] Erythrocyte distribution width (RBC) [Ratio] 13.5 % Normal 11.5-14.5 [facility] Comment on above: Performed By: #### C BC ####[address] [address] Hematocrit (Bld) [Volume fraction] 35.9 % Low 37.5-50.1 [facility] Comment on above: Performed By: #### C BC ####[address] [address] Hemoglobin (Bld) [Mass/Vol] 11.9 g/dL Low 12.9-16.9 [facility] Comment on above: Performed By: #### C BC ####[address] [address] Immature granulocytes/100 WBC (Bld) 0.6 % Normal 0-4 [facility] Comment on above: Performed By: #### C BC ####[address] [address] Lymphocytes (Bld) [#/Vol] 0.5 K/mcL Low 0.6-4.6 [facility] Comment on above: Performed By: #### C BC ####[address] [address] Lymphocytes/100 WBC (Bld) 6.3 % Normal [facility] Comment on above: Performed By: #### C BC ####[address] [address] MCH (RBC) [Entitic mass] 33.1 g/dL Normal 31.6-35.5 [facility] Comment on above: Performed By: #### C BC ####[address] [address] MCH (RBC) [Entitic mass] 31.2 pg Normal 28.0-33.3 [facility] Comment on above: Performed By: #### C BC ####[address] [address] MCV (RBC) [Entitic vol] 94.0 fL Normal 83.0-100.0 [facility] Comment on above: Performed By: #### C BC ####[address] [address] Monocytes (Bld) [#/Vol] 0.4 K/mcL Normal 0.0-1.3 [facility] Comment on above: Performed By: #### C BC ####[address] [address] Monocytes/100 WBC (Bld) 4.3 % Normal [facility] Comment on above: Performed By: #### C BC ####[address] [address] Neutrophils (Bld) [#/Vol] 7.0 K/mcL Normal 1.6-8.9 [facility] Comment on above: Performed By: #### C BC ####[address] [address] Platelet mean volume (Bld) [Entitic vol] 11.6 fL Normal 9.4-12.4 [facility] Comment on above: Performed By: #### C BC ####[address] [address] RBC (Bld) [#/Vol] 3.82 M/mcL Low 4.19-5.50 [facility] Comment on above: Performed By: #### C BC ####[address] [address] Segmented neutrophils/100 WBC (Bld) 87.0 % Normal [facility] Comment on above: Performed By: #### C BC ####[address] [address] WBC (Bld) [#/Vol] 8.1 K/mcL Normal 4.3-11.1 [facility] Comment on above: Performed By: #### C BC ####[address] [address] OT Progress Noteon 0 OT Progress Note (Please sign and return this section for non-electronic signatures) All electronic signatures can be found on the last page of the report. I have reviewed, and agree with, the below stated plan of care: ____ Referring Provider Signature/Printed Name Date Occupational Therapy Plan of Care OT Treatment Diagnosis Need for assistance with personal care Additional OT Treatment none identified Diagnosis/Clarificati on Planned OT Interventions Therapeutic Exercise,Therapeutic Activity,Self Care/Home Management,Neuromuscu lar Reeducation, OT Evaluation OT Treatment Frequency 6x/wk OT Duration of Treatment 2 weeks Occupational Therapy STG's w/in 1 week: 1. setup for adl while O2 stats > 90% 2. MRADL w/ toileting cga Occupational Therapy LTG's 1. mod i dressing, shower stall use, grooming 2. mod i toileting task 3. mod i w/light meal prep task and item transport w/ walker 4. safe walker use for 10 min standing/light MRADL task adl/iadl Occupational Therapy OT Progress/Reassessment Start: 03/23/20 08:59 Freq: Status: Active Protocol: Document 03/23/20 08:59 [facility] (Rec: 03/23/20 09:04 [facility] [id number]) Occupational Therapy Reassessment General OT Visit # n/a Referring Provider Jim Marshall Diagnosis covid19 OT Treatment Diagnosis Need for assistance with personal care Additional OT Treatment Diagnosis/ none identified Clarification Status Change(s) Since Initial Pt now swing bed status. Evaluation Progress note completed to pull information into new chart. See original evaluation for details. Patient/Family Goal be able to take care of self with occasional help Restrictions/Precauti ons covid isolation (lifted ), fall precautions, CHENEGA, use O2 @ eval, recent loss of spouse Current Status/Progress Review Standardized Testing/Functional Outcomes FIM on eval Utilized/Results Goal Progress Occupational Therapy STG's w/in 1 week: 1. setup for adl while O2 stats > 90% 2. MRADL w/ toileting cga Occupational Therapy LTG's 1. mod i dressing, shower stall use, grooming 2. mod i toileting task 3. mod i w/light meal prep task and item transport w/ walker 4. safe walker use for 10 min standing/light MRADL task adl/ iadl Plan Planned OT Interventions Therapeutic Exercise, Therapeutic Activity,Self Care /Home Management,Neuromuscu lar Reeducation,OT Evaluation OT Treatment Frequency 6x/wk OT Duration of Treatment 2 weeks Occupational Therapy Discharge General Referring Provider Jim Marshall Charge Sheet G-Code Documentation Complete OT Charges/Documentation Finished? Yes Last Visit Is patient being discharged from OT No today? OT Re-Evaluation Charge G-Code Preliminary Draft Until Electronically Signed by Supervising Therapist Normal [facility] OT Swing/Rehab Daily Noteon 03-23-2020 OT Swing/Rehab Daily Note Occupational Therapy OT Rehab/Swing Daily Note Start: 03/23/20 08:59 Freq: Status: Active Protocol: Document 03/23/20 10:13 [facility] (Rec: 03/23/20 10:19 [facility] [id number]) General/Subjective General Referring Provider Jim Marshall OT Visit # am Diagnosis covid19 OT Treatment Diagnosis Need for assistance with personal care Additional OT Treatment Diagnosis/ none identified Clarification Subjective Subjective Pt pleasant, agreeable to participate in OT this morning . No pain complaints. Does complain of SOB. Restrictions Weight Bearing Restrictions/Precauti ons covid isolation (lifted ), fall precautions, CHENEGA, use O2 @ eval, recent loss of spouse Objective Vital Signs Vitals at time of rehab 4L supplemental O2 throughout. SPO2 90%+ throughout activity this session. 93%+ during seated tasks throughout. Pt requiring significant seated rest breaks with cues for pursed lip breathing. Pt highly anxious when SOB. Functional Ability ADL's Seated EOB, doffs/donns UB clothing SBA. UB sponge bathing setup, assist for back . LB sponge bathing bottom/ elida area only CGA with cues for thoroughness. LB dressing min/mod A overall. Therapist provided pt with gullet slitter and education on use for unthreading/threading BLEs to decrease SOB with leaning forward. Pt completed with setup/SBA and verbal cues for success for undergarment. Due to fatigue, therapist completed pants. Footwear not addressed. CGA in standing for pulling clothing up and fastening zipper, button, belt . Standing/Activity Tolerance Tolerated 20 minutes of session sitting EOB Bed Mobility SBA supine <-> EOB Transfers CGA sit <-> stand from EOB with education on safe hand placement Assessment/Plan Assessment Assessment Pt unable to tolerate further activity at this time. Session ended early. Pt supine in bed with bed alarm engaged, all needs met. Plan Plan ADLs, walker safety, increase activity tolerance, a/e use for LB for energy conservation Time Started 09:30 Time Ended 10:05 Total Treatment Time (Min) (min) 35 Charge Sheet G-Code Therapies Protocol: REHAB.8MIN Self Care/Home Management 2 Documentation Complete OT Charges/Documentation Finished? Yes Last Visit Is patient being discharged from OT No today? Preliminary Draft Until Electronically Signed by Supervising Therapist Normal [facility] POC Glucometer Teston 2019 Glucose [Mass/Vol] 128 mg/dL High 70-99 [facility] Comment on above: Performed By: #### P OCGLUCOMETER ####[facility] [address] [place] [address] Glucose [Mass/Vol] 191 mg/dL High 70-99 [facility] Comment on above: Performed By: #### P OCGLUCOMETER ####[facility] [address] [place] [address] Glucose [Mass/Vol] 105 mg/dL High 70-99 [facility] Comment on above: Performed By: #### P OCGLUCOMETER ####[facility] [address] [place] [address] Glucose [Mass/Vol] 173 mg/dL High 70-99 [facility] Comment on above: Performed By: #### P OCGLUCOMETER ####[facility] [address] [place] [address] PT Rehab/Swing Daily Noteon 03-23-2020 PT Rehab/Swing Daily Note Physical Therapy PT Rehab/Swing Daily Note. Start: 03/22/20 15:55 Freq: Status: Active Protocol: Document 03/23/20 14:20 [facility] (Rec: 03/23/20 14:26 [facility] [id number]) General/Subjective General Date of Admission 03/22/20 Referring Provider Jim Marshall PT Visit # PM Diagnosis covid19 PT Treatment Diagnosis Muscle weakness (generalized) Additional PT Treatment Diagnosis/ other reduced mobility, Clarification difficulty in walking Subjective Subjective Patient started session with reports that he wants to go home david to help get things ready for his wifes . Reports he is very tired today , but willing to work. Precautions Restrictions/Precauti ons covid isolation (lifted ), fall precautions, CHENEGA, use O2 @ eval, recent loss of spouse Objective Mobility Transfers supine-sit SBA with head of bed slightly inclined sit-supine SBA sit-stand from EOB CGA Balance seated: I on EOB standing: CGA with UE balance support Gait CGA/min A with WW x40' with short step length and cues for WW safety required Therapeutic Exercises Therapeutic Exercise seated: on EOB- ankle pumps, LAQ, hip abd/add, marches, glut sets all 2x10 reps each Assessment and Plan Assessment Assessment Patient started session with supine-sit to EOB. Sat on EOB and progressed with seated ther ex as listed. Required rest breaks and cues for breathing tech. Patient then progressed with gait using WW with safety cues as listed. Monitored O2 on 4L at 92-93% at start and end of session. Patient transfered back to bed at end of session for rest break. Disposition at end of Eval/Treatment In bed,Bed Alarm,Call light/ phone within reach,Tray table within reach Plan Plan Cont to progress as tolerated. Time Started 13:45 Time Ended 14:15 Total Treatment Time (Min) (min) 30 Timed Code Treatment Minutes (min) 30 Charge Sheet G-Code Therapies Protocol: REHAB.8MIN Therapeutic Exercise 1 Gait Training 1 Documentation Complete PT Charges/Documentation Finished? Yes Last Visit Is patient being discharged from PT No today? Preliminary Draft Until Electronically Signed by Supervising Therapist Normal [facility] Prealbuminon 03-23-2020 Prealbumin [Mass/Vol] 21.1 mg/dL Normal 17.0-34.0 [facility] Comment on above: Performed By: #### P OCGLUCOMETER #### [facility] [address] [place] [address] Internal Med History&Physica marquise 03-22-2020 Internal Med History&Physical [address] [address] Internal Med History Physical Signed with Addenda PRELIMINARY DRAFT REPORT UNTIL ELECTRONICALLY SIGNED PATIENT: Mick Cottrell MR#: [id number] : 1940 AGE/SEX: 79 / M ADMITTED: 03/22/20 1528 OUTSIDE LOCN: LOCATION: [address] ATTENDING: Jim Marshall MD cc: ; ADDENDUM He passed the infectious phase of Covid, so will d/c isolation orders. Addendum Dictated By: Jim Marshall Addendum Signed By: 03/22/202000 ADD/ATT: 03/22/201999 Addendum Dictated By: RT Date of Encounter: 03/22/20 Time of Encounter: 11:00 Internal Medicine - H P: HPI Chief complaint: Physical deconditioning Admitted From: Intrahospital Transfer Plans for Post Hospital Care: Home History of present illness: Mr. Cottrell is a 79 year old male with known past medical history of HFpEF, COPD, CVA, A-Fib, HTN, DM2, BPH who was admitted at [facility] on 03/05 with cough, SOB, and malaise for 5 days. In the ED, he wa s found to be hypoxic, wheezing, and covid19 positive, concerning for covid19 pneumonia causing COPD exacerbation, acute hypoxic respiratory failure, and sepsis. Hospital course complicated by development of new A-Fib RVR as well as acute metabolic encephalopathy. Patient was placed on supplemental O2 and required up to HHFNC at 40L/60%. Patient was given high dose dexamethasone, transfusion of convalescent plasma, and course of remdesivir, with eventual improvement in his symptoms and oxygenation. He did become encephalopathic requiring precedex gtt, which improved as respiratory status improved. Did also develop A-fib, for which his metoprolol was continued and patient was started on Xarelto. He was transferred to our [facility] as lateral transfer to continue his further acute medical care and eventually transitioning him to swing bed for his physical deconditioning. We continued his symptomatic and supportive care. He was evaluated by PT/OT who recommend short term rehab. So pt was trasnferred to rehab facility. Pt was seen and examined at bed side. He is alert, awake and O x 4. He denied any CP/SOB. He does look weak and lethargic. He denied any cough with expectoration. He is still on 3 lit O2. He denied any N/V/D. he denied any GI/ symptoms. He is participating well in therapy. Past Med Surg Social Fam HX - Past Medical History Medical history: COPD, CVA, diabetes, hypertension Additional medical history: right lung drainage - pt reports 1800cc of drainage from "center sac" of lung Psychiatric history: depression - Past Surgical History Surgical History: heart valve replacement Additional surgical history: lung drained, tonsillectomy, nasal surgery, loop recorder removal. heart valve replacement - cow valve - Social History Smoking Status: Former smoker (1.5 PPD x 40yrs. Stopped >20yrs ago) Smokeless Tobacco Status: No Alcohol use: none Drug use: none - Family History Father Living Status: Hx Family Cardiac Disorders: Yes (HTN) Hx Family Endocrine Disorder: Yes (DM) Mother Living Status: Hx Family Cardiac Disorders: Yes (HTN, CAD) Hx Family Cancer: Yes (breast, colon) Hx Family Endocrine Disorder: Yes (DM) Internal Medicine - H P: Meds Aspirin Enteric Coated [Aspirin EC] 81 mg PO DAILY 09/30/15 [History] Mirtazapine [Remeron] 15 mg PO HS 03/05/20 [History] Albuterol Sulfate [Albuterol Sulfate Hfa] 2 puff IH Q4-6H PRN 03/06/20 [History] Amlodipine Besylate 10 mg PO DAILY 03/06/20 [History] Atorvastatin [Lipitor] 40 mg PO HS 03/06/20 [History] Finasteride [Proscar] 5 mg PO DAILY 03/06/20 [History] Furosemide [Lasix] 20 mg PO DAILY 03/06/20 [History] Metformin HCl 1,000 mg PO BID 03/06/20 [History] Montelukast [Singulair] 10 mg PO QPM 03/06/20 [History] Omeprazole [PriLOSEC] 40 mg PO DAILY 03/06/20 [History] Topiramate [Topamax] 50 mg PO BID 03/06/20 [History] Vit C/E/Zn/Coppr/Lutein/Z eaxan [Preservision Areds 2 Softgel] 1 cap PO BID 03/06/20 [History] Losartan [Cozaar] 25 mg PO DAILY #30 tablet 03/19/20 [Rx] Metoprolol [Lopressor] 25 mg PO BID #60 tablet 03/19/20 [Rx] Rivaroxaban [Xarelto] 20 mg PO 1700 #30 tablet 03/19/20 [Rx] Allergies Allergy/AdvReac Type Severity Reaction Status Date / Time Penicillins Allergy Severe Swelling Verified 03/06/20 16:07 of Lip/Tongue/Throat All Systems PM: A 10-system review of systems was performed and is negative for pertinent findings except as documented above in the HPI. Review of systems: All the systems are reviewed everything is benign except the systems and symptoms I mentioned in the history of present illness - Constitutional General appearance: Present: cooperative, A O X 3, no acute distress, answers questions appropriately Exam: looks weak and lethargic - Head Head exam: Present: atraumatic, normal inspection - Neck Neck exam general surgery: Present: normal inspection, supple. Absent: thyromegaly - Respiratory Respiratory exam: Present: decreased breath sounds, rhonchi (mild). Absent: rales, respiratory distress, wheezes - Cardiovascular Cardiovascular exam: Present: RRR, +S1, +S2, systolic murmur. Absent: tachycardia - GI/Abdominal GI/Abdominal exam: Present: normal bowel sounds, soft. Absent: distended, guarding, rebound, rigid, tenderness - Extremities Exam Extremities exam: Present: normal inspection. Absent: calf tenderness, pedal edema, tenderness - Back Exam Back exam: Absent: CVA tenderness (L), CVA tenderness (R) - Neurological Exam Neurological exam: Present: alert, oriented X3 - Psychiatric Psychiatric exam: Present: anxious, depressed - Skin Skin exam: Absent: rash - Assessment and Plan (1) COVID-19 Current Visit: No Status: Acute Assessment and plan: He was diagnosed with Covid 19 on 03/05/2020 He was treated at [facility] for Covid 19 pneumonia and was treated with empiric antibiotics, Decadron and transfusion of convalescent plasma, along with Remdesivir He is currently breathing comfortably on RA Encourage frequent incentive siprometry and flutter valve therapy cont supportive care (2) COPD exacerbation Current Visit: No Status: Acute Assessment and plan: improved cont bronchodilators as needed will start him on Symbicort (3) Acute respiratory failure with hypoxia Current Visit: No Status: Acute Assessment and plan: Due to COVID inf and Pneumonia Improved (4) HTN (hypertension) Current Visit: No Status: Acute Assessment and plan: stable with current home meds Qualifiers: Hypertension type: essential hypertension Qualified Code(s): I10 - Essential (primary) hypertension (5) Atrial fibrillation Current Visit: No Status: Chronic Assessment and plan: rate controlled with Metoprolol on Xarelto for anti coag Qualifiers: Atrial fibrillation type: paroxysmal Qualified Code(s): I48.0 - Paroxysmal atrial fibrillation (6) BPH (benign prostatic hyperplasia) Current Visit: No Status: Chronic Assessment and plan: cont watts cath will do voiding trail when pt start ambulating well Qualifiers: Lower urinary tract symptom presence: symptoms absent Qualified Code(s): N40.0 - Benign prostatic hyperplasia without lower urinary tract symptoms (7) Diabetes mellitus Current Visit: No Status: Chronic Assessment and plan: on ADA diet on ISS cont home PO meds Metformin too His HbA1C 7.0 Qualifiers: Diabetes mellitus type: type 2 Diabetes mellitus ranch hand insulin use: without ranch hand use Diabetes mellitus complication status: without complication Qualified Code(s): E11.9 - Type 2 diabetes mellitus without complications (8) GERD (gastroesophageal reflux disease) Current Visit: No Status: Chronic Assessment and plan: cont home po med PPI Qualifiers: Esophagitis presence: with esophagitis Esophagitis bleeding: without hemorrhage Qualified Code(s): K21.00 - Gastro-esophageal reflux disease with esophagitis, without bleeding (9) History of aortic valve replacement with bioprosthetic valve Current Visit: No Status: Chronic (10) Systolic heart failure Current Visit: No Status: Chronic Assessment and plan: stable not in exacerbation cont ASA, Lipitor, Metoprolol and Lasix Qualifiers: Heart failure chronicity: chronic Qualified Code(s): I50.22 - Chronic systolic (congestive) heart failure - Time Spent With Patient Total time spent is greater than 50% in coordination of care (as documented) at patient's floor/unit and/or counseling patient: Documented By: Jim Marshall MD Signed By: 03/22/201955 DD/ 1539 Initialized By: [id number] [facility] OT Noteon 03-22-2020 OT Note Weekly Rehab Team Goal Weekly Rehab Team Goals Start: 03/19/20 15:13 Freq: QWEEK Status: Active Protocol: Activity Type Activity Date Activity User E-Sign Co-Sign Detail Recorded Client Recorded Date Recorded By Document 03/22/20 13:55 KMT [id number] 03/22/20 13:59 KMT 03/22/20 13:55 Mobility (PT/OT/TR) ROM UE Current Status shoulders 90* flexion, WFL distal Date 03/22/20 Strength UE Current State BUE 4/5 but fatigues Strength UE Weekly Goal improve Date 03/22/20 Self Care (OT/NSG/CASH APPLICATIONS MANAGER/PT) UE Dressing Current Status sba UE Dressing Weekly Goal improve Date 03/22/20 LE Dressing Current Status NT LE Dressing Weekly Goal improve Date 03/22/20 Grooming Current Status s/u assist Grooming Weekly Goal improve Date 03/22/20 Housekeeping Meal Preparation Current standing x1 Status minute Housekeeping Meal Preparation Weekly improve as able Goal Date 03/22/20 Bath Transfer Current Satus NT Bath Transfer Weekly Goal improve Date 03/22/20 Bathing Task Current Status sponge bathing UE sba, LE total assist Bathing Task Weekly Goal improve Date 03/22/20 Toilet Transfer Current Status Katie Toilet Transfer Weekly Goal improve Date 03/22/20 Toilet Hygiene Current Status NT Toilet Hygiene Weekly Goal improve Date 03/22/20 Behavior/Cognizance(S LP/OT/TR) Cognition Current Status WFl Date 03/22/20 Visual Processing Neglect Current WFL State Date 03/22/20 Discharge Planning (SW/PT/OT) Equipment Current Status TBD Date 03/22/20 FTV/HSV Current Status TBD Date 03/22/20 OT information entered by Fidelia ESPINOSA/Jaye Smith [facility] OT Swing/Rehab Daily Noteon 03-22-2020 OT Swing/Rehab Daily Note Occupational Therapy OT Rehab/Swing Daily Note Start: 03/22/20 12:04 Freq: Status: Active Protocol: Document 03/22/20 12:04 KMT (Rec: 03/22/20 12:09 KMT [id number]) General/Subjective General Referring Provider Jim Marshall OT Visit # am Diagnosis covid19 OT Treatment Diagnosis Need for assistance with personal care Subjective Subjective reports he thought he would just get out of bed and go Restrictions Weight Bearing Restrictions/Precauti ons covid isolation, fall precautions, CHENEGA, use O2 @ eval, recent loss of spouse Objective Vital Signs Vitals at time of rehab vitals throughout session, on 4L start 96%, 65HR sitting EOB 93%, 65HR ADLs in chair 92%, 65 standing 93%, 65HR Functional Ability ADL's shaving EOB at s/u assist; sponge bathing completed seated in chair UE sba, LE total assist due to fatigue; UE maria l/doff shirt sba Standing/Activity Tolerance tolerated static standing x1 minute with CGA Bed Mobility supine to sit sba Transfers sit to stand Katie; stand pivot to chair with FWW Katie Balance sitting balance on EOb x15 mintues with good balance, complaints of back pain from fatigue Modalities/Other cues for deep breathing throught session Assessment/Plan Assessment Assessment tolerated well; continue with education for pacing self and deep breathing Plan Plan ADLS, IADLS, activity tolerance, transfers Time Started 09:45 Time Ended 10:25 Total Treatment Time (Min) (min) 40 Charge Sheet G-Code Therapies Protocol: REHAB.8MIN Self Care/Home Management 3 Documentation Complete OT Charges/Documentation Finished? Yes Preliminary Draft Until Electronically Signed by Supervising Therapist Normal [facility] POC Glucometer Teston 2019 Glucose [Mass/Vol] 176 mg/dL High 70-99 [facility] Comment on above: Performed By: #### P OCGLUCOMETER ####[facility] [address] [place] [address] Glucose [Mass/Vol] 183 mg/dL High 70-99 [facility] Comment on above: Performed By: #### P OCGLUCOMETER ####[facility] [address] [place] [address] Glucose [Mass/Vol] 65 mg/dL Low 70-99 [facility] Comment on above: Performed By: #### P OCGLUCOMETER #### [facility] [address] [place] [address] Glucose [Mass/Vol] 179 mg/dL High 70-99 [facility] Comment on above: Performed By: #### P OCGLUCOMETER ####[facility] [address] [place] [address] Glucose [Mass/Vol] 206 mg/dL High 70-99 [facility] Comment on above: Performed By: #### P OCGLUCOMETER #### [facility] [address] [place] [address] Glucose [Mass/Vol] 253 mg/dL High 70-99 [facility] Comment on above: Performed By: #### P OCGLUCOMETER ####[facility] [address] [place] [address] Glucose [Mass/Vol] 125 mg/dL High 70-99 [facility] Comment on above: Performed By: #### P OCGLUCOMETER ####[facility] [address] [place] [address] Glucose [Mass/Vol] 258 mg/dL High 70-99 [facility] Comment on above: Performed By: #### P OCGLUCOMETER #### [facility] [address] [place] [address] PT Rehab/Swing Daily Noteon 03-22-2020 PT Rehab/Swing Daily Note Physical Therapy PT Rehab/Swing Daily Note. Start: 03/22/20 15:55 Freq: Status: Active Protocol: Document 03/22/20 16:11 HMT (Rec: 03/22/20 16:26 T [id number]) General/Subjective General Date of Admission 03/22/20 Referring Provider Jim Marshall PT Visit # pm Diagnosis COVID 19 PT Treatment Diagnosis Muscle weakness (generalized) Additional PT Treatment Diagnosis/ other reduced mobility, Clarification difficulty in walking Subjective Subjective Pt notes is excited to be out of room. Notes doctor said he may be here 10 days, but patient does not think that that will be needed. Also notes that has not had time to deal with loss of . Asks about home assistance that may be available. Precautions Restrictions/Precauti ons 4L oxygen, out of COVID isolation precautions 2019, fall precautions Objective Mobility Bed Mobility supine-sit LANCE Transfers sit-stand from bed and chairs cga to sba; sit-stand using ww to ambulate to w/c cga 5 feet Balance standing static with ue support sba, dynamic without ue support cga; patient able to stand to pull up pants approximaltey 1:00 without ue support cga Gait ww 80 feet with step through gait pattern and 4L oxygen, w/ c being pushed behind; cga with verbal cueing and demonstration to slow down breathing as respiratory rate higher with shallow breaths Endurance fair+, many rest breaks throughout session Strength/ROM gross (b) le arom wfl, able to don pants seated at EOB Therapeutic Exercises Therapeutic Exercise // bars: standing with (b) ue support : HR x 20, minisquats x 10/rest break/marches x 10, hip abd/add x 10 each leg/ seated rest break oxygen saturations 91% with standing therex patient requires many rest rest breaks and cueing throughout to slow down, take deeper breaths through nose and concentrate on overall fatigue levels. Exercise Tolerance Fair Rehab Education Education Provided Education Provided: Details proper breathing techniques Teaching Recipient Patient Teaching Method Verbal,Demonstration, Return Demonstration Response to Teaching Reinforcement needed Assessment and Plan Assessment Assessment Patient is not longer under COVID isolation precautions and was able to dress and go out of room this pm. Patient does not realize how deconditioned is and needs continued education on slowing down activites and realizing current functional limitations . Was able to walk 80 feet but had increase in respiratory rates, although oxygen sats did not drop below 90% during session. Disposition at end of Eval/Treatment Up in chair,Chair Alarm,Call light/phone within reach,Tray table within reach,All needs met Plan Plan Progress out of room activities and endurance, may need to give [facility] education regarding breathing techniques. Time Started 13:30 Time Ended 14:25 Total Treatment Time (Min) (min) 55 Timed Code Treatment Minutes (min) 55 Charge Sheet G-Code Therapies Protocol: REHAB.8MIN Therapeutic Exercise 2 Therapeutic Activity 1 Gait Training 1 Documentation Complete PT Charges/Documentation Finished? Yes Last Visit Is patient being discharged from PT No today? Preliminary Draft Until Electronically Signed by Supervising Therapist Normal [facility] Basic Metabolic Panelon 12-2 Calcium [Mass/Vol] 7.7 mg/dL Low 8.6-10.3 [facility] Comment on above: Performed By: #### B MP ####[address] [address] Chloride [Moles/Vol] 106 mmol/L Normal 98-107 [facility] Comment on above: Performed By: #### B MP ####[address] [address] CO2 [Moles/Vol] 24 mmol/L Normal 23-29 [facility] Comment on above: Performed By: #### B MP ####[address] [address] Creatinine [Mass/Vol] 0.81 mg/dL Normal 0.70-1.30 [facility] Comment on above: Performed By: #### B MP ####[address] [address] eGFR For Americans > 60 Normal > 60 [facility] Comment on above: Result Comment: eGFR = Estimated Glomerular Filtration Rate reported as mL/min/1.73 square meters Chronic Kidney Disease: < 60; Kidney failure: < 15 Performed By: #### B MP ####[address] [address] eGFR For Non- Americans > 60 Normal > 60 [facility] Comment on above: Performed By: #### B MP ####[address] [address] Glucose [Mass/Vol] 224 mg/dL High 70-105 [facility] Comment on above: Performed By: #### B MP ####[address] [address] Osmolality,Calculated 294 Normal 280-300 [facility] Comment on above: Performed By: #### B MP ####[address] [address] Potassium [Moles/Vol] 4.1 mmol/L Normal 3.5-5.1 [facility] Comment on above: Performed By: #### B MP ####[address] [address] Sodium [Moles/Vol] 135 mmol/L Low 136-145 [facility] Comment on above: Performed By: #### B MP ####[address] [address] Urea nitrogen [Mass/Vol] 31 mg/dL High 8-23 [facility] Comment on above: Performed By: #### B MP ####[address] [address] Urea nitrogen/Creatinine [Mass ratio] 38 mg/mg High 6-26 [facility] Comment on above: Performed By: #### B MP ####[address] [address] Complete Blood Counton 03-21 Platelets (Bld) [#/Vol] 77 K/mcL Low 140-400 [facility] Comment on above: Performed By: #### C BC ####[address] [address] Basophils (Bld) [#/Vol] 0.0 K/mcL Normal 0.0-0.2 [facility] Comment on above: Performed By: #### C BC ####[address] [address] Basophils/100 WBC (Bld) 0.1 % Normal [facility] Comment on above: Performed By: #### C BC ####[address] [address] Eosinophils (Bld) [#/Vol] 0.1 K/mcL Normal 0.0-0.6 [facility] Comment on above: Performed By: #### C BC ####[address] [address] Eosinophils/100 WBC (Bld) 0.7 % Normal [facility] Comment on above: Performed By: #### C BC ####[address] [address] Erythrocyte distribution width (RBC) [Ratio] 13.1 % Normal 11.5-14.5 [facility] Comment on above: Performed By: #### C BC ####[address] [address] Hematocrit (Bld) [Volume fraction] 37.4 % Low 37.5-50.1 [facility] Comment on above: Performed By: #### C BC ####[address] [address] Hemoglobin (Bld) [Mass/Vol] 12.6 g/dL Low 12.9-16.9 [facility] Comment on above: Performed By: #### C BC ####[address] [address] Immature granulocytes/100 WBC (Bld) 0.6 % Normal 0-4 [facility] Comment on above: Performed By: #### C BC ####[address] [address] Lymphocytes (Bld) [#/Vol] 0.5 K/mcL Low 0.6-4.6 [facility] Comment on above: Performed By: #### C BC ####[address] [address] Lymphocytes/100 WBC (Bld) 4.5 % Normal [facility] Comment on above: Performed By: #### C BC ####[address] [address] MCH (RBC) [Entitic mass] 33.7 g/dL Normal 31.6-35.5 [facility] Comment on above: Performed By: #### C BC ####[address] [address] MCH (RBC) [Entitic mass] 31.8 pg Normal 28.0-33.3 [facility] Comment on above: Performed By: #### C BC ####[address] [address] MCV (RBC) [Entitic vol] 94.4 fL Normal 83.0-100.0 [facility] Comment on above: Performed By: #### C BC ####[address] [address] Monocytes (Bld) [#/Vol] 0.5 K/mcL Normal 0.0-1.3 [facility] Comment on above: Performed By: #### C BC ####[address] [address] Monocytes/100 WBC (Bld) 4.3 % Normal [facility] Comment on above: Performed By: #### C BC ####[address] [address] Neutrophils (Bld) [#/Vol] 9.7 K/mcL High 1.6-8.9 [facility] Comment on above: Performed By: #### C BC ####[place] [address] [place] [address] Platelet mean volume (Bld) [Entitic vol] 11.3 fL Normal 9.4-12.4 [facility] Comment on above: Performed By: #### C BC ####[address] [address] RBC (Bld) [#/Vol] 3.96 M/mcL Low 4.19-5.50 [facility] Comment on above: Performed By: #### C BC ####[address] [address] Segmented neutrophils/100 WBC (Bld) 89.8 % Normal [facility] Comment on above: Performed By: #### C BC ####[address] [address] WBC (Bld) [#/Vol] 10.8 K/mcL Normal 4.3-11.1 [facility] Comment on above: Performed By: #### C BC ####[address] [address] Internal Med Progress Noteon 03-21-2020 Internal Med Progress Note [facility] [address] [place] [address] Internal Med Progress Note Signed PRELIMINARY DRAFT REPORT UNTIL ELECTRONICALLY SIGNED PATIENT: Mick Cottrell MR#: [id number] : 1940 AGE/SEX: 79 / M ADMITTED: 03/19/20 1426 OUTSIDE LOCN: LOCATION: [address] ATTENDING: Jim Marshall MD cc: ; Date of Encounter: 03/21/20 Time of Encounter: 16:03 - Assessment and plan (1) COVID-19 Current Visit: Yes Status: Acute Assessment and plan: Patient was admitted and diagnosed with Covid 19 on 03/05/2020. Stated that he was symptomatic for approximate 5 days prior to admission. Patient was treated at [facility] for Covid 19 pneumonia and was treated with empiric antibiotics, Decadron and transfusion of convalescent plasma, along with Remdesivir. During his stay his pulmonary status improved over the course of time and he currently was weaned on his oxygen to the present 3 L/m by cannula and transferred to [facility] for inpatient rehabilitation. (2) Diabetes mellitus Current Visit: Yes Status: Chronic Assessment and plan: Continue ADA diet. Monitor fingerstick blood sugars. Insulin sliding scale. Qualifiers: Diabetes mellitus type: type 2 Diabetes mellitus ranch hand insulin use: without ranch hand use Diabetes mellitus complication status: without complication Qualified Code(s): E11.9 - Type 2 diabetes mellitus without complications (3) COPD (chronic obstructive pulmonary disease) Current Visit: Yes Status: Chronic Assessment and plan: Stable. Continue inhaled meds. Qualifiers: COPD type: unspecified COPD Qualified Code(s): J44.9 - Chronic obstructive pulmonary disease, unspecified (4) CVA (cerebral vascular accident) Current Visit: No Status: Chronic Assessment and plan: History of CVA. No complications at this time. Qualifiers: CVA mechanism: unspecified Qualified Code(s): I63.9 - Cerebral infarction, unspecified (5) Acute respiratory failure with hypoxia Current Visit: Yes Status: Acute Assessment and plan: She continues his treatment for: 19 pneumonia. Currently his oxygen is at 3 L/m nasal cannula and maintains a saturation greater than 92%. We will continue to wean his oxygen to maintain his saturation greater than 90%. (6) BPH (benign prostatic hyperplasia) Current Visit: Yes Status: Chronic Assessment and plan: Stable. Continue Proscar Qualifiers: Lower urinary tract symptom presence: symptoms absent Qualified Code(s): N40.0 - Benign prostatic hyperplasia without lower urinary tract symptoms (7) Atrial fibrillation Current Visit: Yes Status: Chronic Assessment and plan: Patient was recently diagnosed with a fib. Rate and rhythm stable. Continue metoprolol and xarelto Qualifiers: Atrial fibrillation type: unspecified Qualified Code(s): I48.91 - Unspecified atrial fibrillation (8) Systolic heart failure Current Visit: Yes Status: Chronic Assessment and plan: Patient with a history of systolic heart failure with a preserved ejection fraction of 60% on his latest echocardiogram. Patient denies any chest discomforts palpitations. We will continue with his current medication that includes Lopressor, Cozaar and Norvasc. Patient on aspirin and Xarelto for anticoagulation Qualifiers: Heart failure chronicity: chronic Qualified Code(s): I50.22 - Chronic systolic (congestive) heart failure (9) GERD (gastroesophageal reflux disease) Current Visit: Yes Status: Chronic Assessment and plan: Stable with PPI. Qualifiers: Esophagitis presence: with esophagitis Esophagitis bleeding: without hemorrhage Qualified Code(s): K21.00 - Gastro-esophageal reflux disease with esophagitis, without bleeding - Time Spent With Patient less than 15 minutes - Subjective Interval history: Mr. Cottrell is a 79 year old male with a hx HFpEF, COPD, CVA, A-Fib, HTN, DM2, BPH, who presented at time of admission on 03/05 with cough, SOB, and malaise for 5 days. In the ED, he was found to be hypoxic, wheezing, and covid19 positive, concerning for covid19 pneumonia causing COPD exacerbation, acute hypoxic respiratory failure, and sepsis. Hospital course complicated by development of new A- Fib RVR as well as acute metabolic encephalopathy. Patient was placed on supplemental O2 and required up to HHFNC at 40L/60%. Patient was given high dose dexamethasone, transfusion of convalescent plasma, and course of remdesivir, with eventual improvement in his symptoms and oxygenation. He did become encephalopathic requiring precedex gtt, which improved as respiratory status improved. Did also develop A-fib, for which his metoprolol was continued and patient was started on Xarelto. Due to prolonged illness and deconditioning, PT/OT saw patient who recommended inpatient rehab/swing. Patient will transfer laterally to [facility] and eventually convert to swing bed. He remains on 3-4L O2 at this time. Patient denies fever, chills, nausea vomiting or diarrhea. Denies chest pain. Patient does become short of breath while he is ambulating with therapy. Maintaining oxygen saturation on 3 to 4 L. Recovers quickly while ambulating. - Constitutional Vitals: Temp Pulse Resp BP Pulse Ox 98.2 F 84 16 117/65 93 03/21/20 11:42 03/21/20 11:42 03/21/20 15:22 03/21/20 11:42 03/21/20 15:22 General appearance: Present: cooperative, A O X 3, pleasant, no acute distress, answers questions appropriately - Head Head exam: Present: atraumatic, normocephalic - Eye Eye exam: Present: PERRL, conjuntiva pink, sclera anicteric Pupils: Present: PERRL - Neck Neck exam general surgery: Present: supple, trachea midline. Absent: lymphadenopathy - Respiratory Respiratory exam: Present: decreased breath sounds, CTAB. Absent: accessory muscle use, rales, rhonchi, wheezes - Cardiovascular Cardiovascular exam: Present: RRR, +S1, +S2. Absent: diastolic murmur, gallop, rubs, systolic murmur - GI/Abdominal GI/Abdominal exam: Present: normal bowel sounds, soft, no peritoneal signs. Absent: distended, tenderness - Extremities Exam Extremities exam: Present: warm, radial pulses palpable and symmetrical. Absent: calf tenderness, cyanotic, pedal edema - Neurological Exam Neurological exam: Present: CN II-XII intact, oriented X3, no focal deficits. Absent: pronater drift, facial droop, speech deficit - Skin Skin exam: Present: dry, intact Internal Medicine: Result - Labs CBC Chem 7: 03/21/20 12:15 03/21/20 12:15 Labs: Short CBC 03/21/20 Range/Units 12:15 WBC 10.8 (4.3-11.1) K/mcL Hgb 12.6 L (12.9-16.9) g/dL Hct 37.4 L (37.5-50.1) % Plt Count 77 L (140-400) K/mcL Neutrophils # 9.7 H (1.6-8.9) K/mcL BMP 03/21/20 12:15 Sodium 135 L Potassium 4.1 Chloride 106 Carbon Dioxide 24 BUN 31 H Creatinine 0.81 Glucose 224 H Calcium 7.7 L - ABG Interpretation ABG results: PT/INR, D-dimer D-Dimer 855 ng/mLFEU (0-500) H 03/20/20 05:52 Consult Discharge Plan - Plan Referrals: NONE,PCP [Primary Care Provider] - Documented By: Capri IqbalN Signed By: 03/21/20 1611 DD/ 1603 Initialized By: [id number] Normal [facility] POC Glucometer Teston 2019 Glucose [Mass/Vol] 61 mg/dL Low 70-99 [facility] Comment on above: Performed By: #### P OCGLUCOMETER #### [facility] [address] [place] [address] Glucose [Mass/Vol] 177 mg/dL High 70-99 [facility] Comment on above: Result Comment: Glu2 : RN Notified Performed By: #### P OCGLUCOMETER ####[facility] [address] [place] [address] C-Reactive Proteinon 020 CRP [Mass/Vol] mg/L Normal Less than 10 [facility] Comment on above: Performed By: #### P OCGLUCOMETER #### [facility] [address] [place] [address] Complete Blood Counton 03-20 Platelets (Bld) [#/Vol] 82 K/mcL Low 140-400 [facility] Comment on above: Performed By: #### C BC ####[facility] [address] [place] [address] Basophils (Bld) [#/Vol] 0.0 K/mcL Normal 0.0-0.2 [facility] Comment on above: Performed By: #### C BC ####[facility] [address] [place] [address] Basophils/100 WBC (Bld) 0.0 % Normal [facility] Comment on above: Performed By: #### C BC ####[facility] [address] [place] [address] Eosinophils (Bld) [#/Vol] 0.0 K/mcL Normal 0.0-0.6 [facility] Comment on above: Performed By: #### C BC ####[facility] [address] [place] [address] Eosinophils/100 WBC (Bld) 0.1 % Normal [facility] Comment on above: Performed By: #### C BC ####[address] [address] Erythrocyte distribution width (RBC) [Ratio] 13.0 % Normal 11.5-14.5 [facility] Comment on above: Performed By: #### C BC ####[address] [address] Hematocrit (Bld) [Volume fraction] 35.4 % Low 37.5-50.1 [facility] Comment on above: Performed By: #### C BC ####[address] [address] Hemoglobin (Bld) [Mass/Vol] 12.0 g/dL Low 12.9-16.9 [facility] Comment on above: Performed By: #### C BC ####[address] [address] Immature granulocytes/100 WBC (Bld) 0.5 % Normal 0-4 [facility] Comment on above: Performed By: #### C BC ####[address] [address] Lymphocytes (Bld) [#/Vol] 0.5 K/mcL Low 0.6-4.6 [facility] Comment on above: Performed By: #### C BC ####[address] [address] Lymphocytes/100 WBC (Bld) 6.2 % Normal [facility] Comment on above: Performed By: #### C BC ####[address] [address] MCH (RBC) [Entitic mass] 31.7 pg Normal 28.0-33.3 [facility] Comment on above: Performed By: #### C BC ####[address] [address] MCH (RBC) [Entitic mass] 33.9 g/dL Normal 31.6-35.5 [facility] Comment on above: Performed By: #### C BC ####[address] [address] MCV (RBC) [Entitic vol] 93.4 fL Normal 83.0-100.0 [facility] Comment on above: Performed By: #### C BC ####[address] [address] Monocytes (Bld) [#/Vol] 0.4 K/mcL Normal 0.0-1.3 [facility] Comment on above: Performed By: #### C BC ####[address] [address] Monocytes/100 WBC (Bld) 4.5 % Normal [facility] Comment on above: Performed By: #### C BC ####[address] [address] Neutrophils (Bld) [#/Vol] 7.3 K/mcL Normal 1.6-8.9 [facility] Comment on above: Performed By: #### C BC ####[address] [address] Platelet mean volume (Bld) [Entitic vol] 11.4 fL Normal 9.4-12.4 [facility] Comment on above: Performed By: #### C BC ####[address] [address] RBC (Bld) [#/Vol] 3.79 M/mcL Low 4.19-5.50 [facility] Comment on above: Performed By: #### C BC ####[facility] [address] [place] [address] Segmented neutrophils/100 WBC (Bld) 88.7 % Normal [facility] Comment on above: Performed By: #### C BC ####[facility] [address] [place] [address] WBC (Bld) [#/Vol] 8.2 K/mcL Normal 4.3-11.1 [facility] Comment on above: Performed By: #### C BC ####[facility] [address] [place] [address] Comprehensive Metabolic Pane marquise 03-20-2020 Albumin [Mass/Vol] 2.4 g/dL Low 3.5-5.7 [facility] Comment on above: Performed By: #### P OCGLUCOMETER #### [facility] [address] [place] [address] Albumin/Globulin [Mass ratio] 1.3 {ratio} Normal 1.1-2.2 [facility] Comment on above: Performed By: #### P OCGLUCOMETER #### [facility] [address] [place] [address] ALP [Catalytic activity/Vol] 84 Units/L Normal 34-104 [facility] Comment on above: Performed By: #### P OCGLUCOMETER #### [facility] [address] [place] [address] ALT [Catalytic activity/Vol] 14 Units/L Normal 7-52 [facility] Comment on above: Performed By: #### P OCGLUCOMETER #### [facility] [address] [place] [address] AST [Catalytic activity/Vol] 10 Units/L Low 13-39 [facility] Comment on above: Performed By: #### P OCGLUCOMETER #### [facility] [address] [place] [address] Bilirubin [Mass/Vol] 0.7 mg/dL Normal 0.3-1.0 [facility] Comment on above: Performed By: #### P OCGLUCOMETER #### [facility] [address] [place] [address] Calcium [Mass/Vol] 8.0 mg/dL Low 8.6-10.3 [facility] Comment on above: Performed By: #### P OCGLUCOMETER #### [facility] [address] [place] [address] Chloride [Moles/Vol] 106 mmol/L Normal 98-107 [facility] Comment on above: Performed By: #### P OCGLUCOMETER #### [facility] [address] [place] [address] CO2 [Moles/Vol] 26 mmol/L Normal 23-29 [facility] Comment on above: Performed By: #### P OCGLUCOMETER #### [facility] [address] [place] [address] Creatinine [Mass/Vol] 0.82 mg/dL Normal 0.70-1.30 [facility] Comment on above: Performed By: #### P OCGLUCOMETER #### [facility] [address] [place] [address] eGFR For Americans > 60 Normal > 60 [facility] Comment on above: Result Comment: eGFR = Estimated Glomerular Filtration Rate reported as mL/min/1.73 square meters Chronic Kidney Disease: < 60; Kidney failure: < 15 Performed By: #### P OCGLUCOMETER #### [facility] [address] [place] [address] eGFR For Non- Americans > 60 Normal > 60 [facility] Comment on above: Performed By: #### P OCGLUCOMETER #### [facility] [address] [place] [address] Globulin (S) [Mass/Vol] 1.9 g/dL Low 2.4-3.5 [facility] Comment on above: Performed By: #### P OCGLUCOMETER #### [facility] [address] [place] [address] Glucose [Mass/Vol] 119 mg/dL High 70-105 [facility] Comment on above: Performed By: #### P OCGLUCOMETER #### [facility] [address] [place] [address] Osmolality,Calculated 289 Normal 280-300 [facility] Comment on above: Performed By: #### P OCGLUCOMETER #### [facility] [address] [place] [address] Potassium [Moles/Vol] 3.9 mmol/L Normal 3.5-5.1 [facility] Comment on above: Performed By: #### P OCGLUCOMETER #### [facility] [address] [place] [address] Protein [Mass/Vol] 4.3 g/dL Low 6.4-8.9 [facility] Comment on above: Performed By: #### P OCGLUCOMETER #### [facility] [address] [place] [address]32 Sodium [Moles/Vol] 135 mmol/L Low 136-145 [facility] Comment on above: Performed By: #### P OCGLUCOMETER #### [facility] [address] [place] [address] 61884 Urea nitrogen [Mass/Vol] 36 mg/dL High 8-23 [facility] Comment on above: Performed By: #### P OCGLUCOMETER #### [facility] [address] [place] [address] [id number] Urea nitrogen/Creatinine [Mass ratio] 44 mg/mg High 6-26 [facility] Comment on above: Performed By: #### P OCGLUCOMETER #### [facility] [address] [place] [address] D-Dimeron 03-20-2020 D-Dimer 855 ng/mLFEU High 0-500 [facility] Comment on above: Result Comment: A po sitive D-Dimer result does not predict a specific disease. Result should be interpreted in conjunction with the patient's medical history, clinical presentation, and other findings. Performed By: #### D D ####[facility] [id number] [place] [address] Ferritinon 03-20-2020 Ferritin [Mass/Vol] 337 ng/mL High 20-250 [facility] Comment on above: Performed By: #### P OCGLUCOMETER #### [facility] [address] [place], [place] [id number] Internal Med Progress Noteon 03-20-2020 Internal Med Progress Note [address] [id number] Internal Med Progress Note Signed PRELIMINARY DRAFT REPORT UNTIL ELECTRONICALLY SIGNED PATIENT: Mick Cottrell MR#: [id number] : 1940 AGE/SEX: 79 / M ADMITTED: 03/19/20 1426 OUTSIDE LOCN: LOCATION: [address] ATTENDING: Jim Marshall MD cc: ; Date of Encounter: 03/20/20 Time of Encounter: 12:32 - Assessment and plan (1) COVID-19 Current Visit: Yes Status: Acute Assessment and plan: Patient was admitted and diagnosed with Covid 19 on 03/05/2020. Stated that he was symptomatic for approximate 5 days prior to admission. Patient improving with his inflammatory labs continuing to trend down. Remains stable on 3 LPM NC. Patient noted to have productive cough with blood-tinged sputum. Respiratory effort appears relaxed. PT/OT evaluation pending. We will continue with his current inhalers which include albuterol, Atrovent and Spiriva. (2) Atrial fibrillation Current Visit: Yes Status: Acute Assessment and plan: Patient was diagnosed with atrial fibrillation during his stay at [facility]. He continues to have irregular heart rate but with a controlled ventricular rate less than 100. We will continue with his current medication of metoprolol. Patient also started on Xarelto Qualifiers: Atrial fibrillation type: unspecified Qualified Code(s): I48.91 - Unspecified atrial fibrillation (3) Systolic heart failure Current Visit: Yes Status: Chronic Assessment and plan: Patient with a history of systolic heart failure with a preserved ejection fraction of 60% on his latest echocardiogram. Patient denies any chest discomforts palpitations. We will continue with his current medication that includes Lopressor, Cozaar and Norvasc. Patient on aspirin and Xarelto for anticoagulation Qualifiers: Heart failure chronicity: chronic Qualified Code(s): I50.22 - Chronic systolic (congestive) heart failure (4) Diabetes mellitus Current Visit: Yes Status: Chronic Assessment and plan: Patients glucose was slightly elevated per medical records. We will continue with fingersticks before meals and at bedtime with sliding scale coverage. Patient also to restart his metformin Qualifiers: Diabetes mellitus type: type 2 Diabetes mellitus ranch hand insulin use: without snf use Diabetes mellitus complication status: without complication Qualified Code(s): E11.9 - Type 2 diabetes mellitus without complications (5) COPD (chronic obstructive pulmonary disease) Current Visit: Yes Status: Chronic Assessment and plan: With history of COPD. Currently being treated for Covid 19 pneumonia. He will continue with his current bronchodilators and Singulair Qualifiers: COPD type: unspecified COPD Qualified Code(s): J44.9 - Chronic obstructive pulmonary disease, unspecified (6) CVA (cerebral vascular accident) Current Visit: Yes Status: Chronic Assessment and plan: Patient with a CVA per history but shows no focal deficits. Neurological exam shows no acute changes. We will continue with his current home medications Qualifiers: CVA mechanism: unspecified Qualified Code(s): I63.9 - Cerebral infarction, unspecified (7) Acute respiratory failure with hypoxia Current Visit: Yes Status: Acute Assessment and plan: he continues his treatment for: 19 pneumonia. Currently his oxygen is at 3 L/m nasal cannula and maintains a saturation greater than 92%. We will continue to wean his oxygen to maintain his saturation greater than 90%. (8) BPH (benign prostatic hyperplasia) Current Visit: Yes Status: Acute Assessment and plan: No acute issues. Patient with BPH per history. We will continue with his current Proscar Qualifiers: Lower urinary tract symptom presence: symptoms absent Qualified Code(s): N40.0 - Benign prostatic hyperplasia without lower urinary tract symptoms (9) GERD (gastroesophageal reflux disease) Current Visit: Yes Status: Chronic Assessment and plan: No acute issues. Patient denies any reflux or epigastric discomfort. We will continue with his home dosing of omeprazole Qualifiers: Esophagitis presence: with esophagitis Esophagitis bleeding: without hemorrhage Qualified Code(s): K21.00 - Gastro-esophageal reflux disease with esophagitis, without bleeding - Subjective Interval history: Mr. Cottrell is a 79 year old male with a hx HFpEF, COPD, CVA, A-Fib, HTN, DM2, BPH, who presented at time of admission on 03/05 with cough, SOB, and malaise for 5 days. In the ED, he was found to be hypoxic, wheezing, and covid19 positive, concerning for covid19 pneumonia causing COPD exacerbation, acute hypoxic respiratory failure, and sepsis. Hospital course complicated by development of new A- Fib RVR as well as acute metabolic encephalopathy. Patient was placed on supplemental O2 and required up to HHFNC at 40L/60%. Patient was given high dose dexamethasone, transfusion of convalescent plasma, and course of remdesivir, with eventual improvement in his symptoms and oxygenation. He did become encephalopathic requiring precedex gtt, which improved as respiratory status improved. Did also develop A-fib, for which his metoprolol was continued and patient was started on Xarelto. Due to prolonged illness and deconditioning, PT/OT saw patient who recommended inpatient rehab/swing. Patient will transfer laterally to [facility] and eventually convert to swing bed. He remains on 3-4L O2 at this time. Patient currently appears relaxed and denies any discomforts or shortness of breath. States that he feels his breathing is much improved. He continues on 3 LPM with a ox sat of 92%. RR relaxed. Lungs CTA. Has productive cough with thick, blood tinged sputum rec'd. Most recent labs were reviewed and show mild anemia with Hgb 12. Fasting glucose elevated at 119. Most recent A1c shows 7.0. This mornings inflammatory markers show Ferritin 337, D-dimer 855 and CRP <5. - Constitutional Vitals: Temp Pulse Resp BP Pulse Ox 98.6 F 63 20 115/61 93 03/20/20 11:16 03/20/20 11:16 03/20/20 11:26 03/20/20 11:16 03/20/20 11:26 General appearance: Present: A O X 3, pleasant Internal Medicine: Result - Labs CBC Chem 7: 03/20/20 05:52 03/20/20 05:52 Labs: Short CBC 03/20/20 Range/Units 05:52 WBC 8.2 (4.3-11.1) K/mcL Hgb 12.0 L (12.9-16.9) g/dL Hct 35.4 L (37.5-50.1) % Plt Count 82 L (140-400) K/mcL Neutrophils # 7.3 (1.6-8.9) K/mcL BMP 03/20/20 05:52 Sodium 135 L Potassium 3.9 Chloride 106 Carbon Dioxide 26 BUN 36 H Creatinine 0.82 Glucose 119 H Calcium 8.0 L Liver Function 03/20/20 Range/Units 05:52 Total Bilirubin 0.7 (0.3-1.0) mg/dL AST 10 L (13-39) Units/L ALT 14 (7-52) Units/L Alkaline Phosphatase 84 (34-104) Units/L Albumin 2.4 L (3.5-5.7) g/dL - ABG Interpretation ABG results: PT/INR, D-dimer D-Dimer 855 ng/mLFEU (0-500) H 03/20/20 05:52 Consult Discharge Plan - Plan Referrals: NONE,PCP [Primary Care Provider] - Documented By: Jenaro Morales CNP Signed By: 03/20/20 1238 DD/ 1232 Initialized By: [id number] Normal [facility] Magnesiumon 03-20-2020 Magnesium [Mass/Vol] 1.9 mg/dL Normal 1.6-2.6 [facility] Comment on above: Performed By: #### P OCGLUCOMETER #### [facility] [address] [place] [address] POC Glucometer Teston 2019 Glucose [Mass/Vol] 223 mg/dL High 70-99 [facility] Comment on above: Performed By: #### P OCGLUCOMETER ####[facility] [id number] [place] [address] Glucose [Mass/Vol] 192 mg/dL High 70-99 [facility] Comment on above: Performed By: #### P OCGLUCOMETER #### [facility] [address] [place] [address] Glucose [Mass/Vol] 150 mg/dL High 70-99 [facility] Comment on above: Performed By: #### P OCGLUCOMETER #### [facility] [address] [place] [address] Glucose [Mass/Vol] 302 mg/dL High 70-99 [facility] Comment on above: Performed By: #### P OCGLUCOMETER #### [facility] [address] [place] [address] Internal Med History&Physica marquise 03-19-2020 Internal Med History&Physical [facility] [address] [place] [address] Internal Med History Physical Signed PRELIMINARY DRAFT REPORT UNTIL ELECTRONICALLY SIGNED PATIENT: Mick Cottrell MR#: [id number] : 1940 AGE/SEX: 79 / M ADMITTED: 03/19/20 1426 OUTSIDE LOCN: LOCATION: [address] ATTENDING: Jim Marshall MD cc: ; Date of Encounter: 03/19/20 Time of Encounter: 15:03 Assessment and Plan (1) COVID-19 Current visit: Yes Status: Acute Patient was admitted and diagnosed with Covid 19 on 03/05/2020. Stated that he was symptomatic for approximate 5 days prior to admission. Patient was treated at [facility] for Covid 19 pneumonia and was treated with empiric antibiotics, Decadron and transfusion of convalescent plasma, along with Remdesivir. During his stay his pulmonary status improved over the course of time and he currently was weaned on his oxygen to the present 3 L/m by cannula and transferred to [facility] for inpatient rehabilitation. Patient noted to have productive cough with blood-tinged sputum. Respiratory effort appears relaxed. PT/OT evaluation pending. We will continue with his current inhalers which include albuterol, Atrovent and Spiriva. (2) Atrial fibrillation Current visit: Yes Status: Acute Patient was diagnosed with atrial fibrillation during his stay at [facility]. He continues to have irregular heart rate but with a controlled ventricular rate less than 100. We will continue with his current medication of metoprolol. Patient also started on Xarelto Qualifiers: Atrial fibrillation type: unspecified Qualified Code(s): I48.91 - Unspecified atrial fibrillation (3) Systolic heart failure Current visit: Yes Status: Chronic Patient with a history of systolic heart failure with a preserved ejection fraction of 60% on his latest echocardiogram. Patient denies any chest discomforts palpitations. We will continue with his current medication that includes Lopressor, Cozaar and Norvasc. Patient on aspirin and Xarelto for anticoagulation Qualifiers: Heart failure chronicity: chronic Qualified Code(s): I50.22 - Chronic systolic (congestive) heart failure (4) Diabetes mellitus Current visit: Yes Status: Chronic Patients glucose was slightly elevated per medical records. We will continue with fingersticks before meals and at bedtime with sliding scale coverage. Patient also to restart his metformin Qualifiers: Diabetes mellitus type: type 2 Diabetes mellitus snf insulin use: without ranch hand use Diabetes mellitus complication status: without complication Qualified Code(s): E11.9 - Type 2 diabetes mellitus without complications (5) COPD (chronic obstructive pulmonary disease) Current visit: Yes Status: Chronic With history of COPD. Currently being treated for Covid 19 pneumonia. He will continue with his current bronchodilators and Singulair Qualifiers: COPD type: unspecified COPD Qualified Code(s): J44.9 - Chronic obstructive pulmonary disease, unspecified (6) CVA (cerebral vascular accident) Current visit: Yes Status: Chronic Patient with a CVA per history but shows no focal deficits. Neurological exam shows no acute changes. We will continue with his current home medications Qualifiers: CVA mechanism: unspecified Qualified Code(s): I63.9 - Cerebral infarction, unspecified (7) Acute respiratory failure with hypoxia Current visit: Yes Status: Acute She continues his treatment for: 19 pneumonia. Currently his oxygen is at 3 L/m nasal cannula and maintains a saturation greater than 92%. We will continue to wean his oxygen to maintain his saturation greater than 90%. (8) BPH (benign prostatic hyperplasia) Current visit: Yes Status: Acute No acute issues. Patient with BPH per history. We will continue with his current Proscar Qualifiers: Lower urinary tract symptom presence: symptoms absent Qualified Code(s): N40.0 - Benign prostatic hyperplasia without lower urinary tract symptoms (9) GERD (gastroesophageal reflux disease) Current visit: Yes Status: Chronic No acute issues. Patient denies any reflux or epigastric discomfort. We will continue with his home dosing of omeprazole Qualifiers: Esophagitis presence: with esophagitis Esophagitis bleeding: without hemorrhage Qualified Code(s): K21.00 - Gastro-esophageal reflux disease with esophagitis, without bleeding Internal Medicine - H P: HPI Chief complaint: Covid pneumonia Admitted From: Hospital to Hospital Transfer Plans for Post Hospital Care: Home History of present illness: Mr. Cottrell is a 79 year old male with a hx HFpEF, COPD, CVA, A-Fib, HTN, DM2, BPH, who presented at time of admission on 03/05 with cough, SOB, and malaise for 5 days. In the ED, he was found to be hypoxic, wheezing, and covid19 positive, concerning for covid19 pneumonia causing COPD exacerbation, acute hypoxic respiratory failure, and sepsis. Hospital course complicated by development of new A- Fib RVR as well as acute metabolic encephalopathy. Patient was placed on supplemental O2 and required up to HHFNC at 40L/60%. Patient was given high dose dexamethasone, transfusion of convalescent plasma, and course of remdesivir, with eventual improvement in his symptoms and oxygenation. He did become encephalopathic requiring precedex gtt, which improved as respiratory status improved. Did also develop A-fib, for which his metoprolol was continued and patient was started on Xarelto. Due to prolonged illness and deconditioning, PT/OT saw patient who recommended inpatient rehab/swing. Patient will transfer laterally to [facility] and eventually convert to swing bed. He remains on 3-4L O2 at this time. Patient currently appears relaxed and denies any discomforts or shortness of breath. States that he feels his breathing is much improved. He continues on 3 LPM with a ox sat of 92%. RR relaxed. Lungs CTA. Has productive cough with thick, blood tinged sputum rec'd. Most recent labs were reviewed and show mild anemia with Hgb 12. He has leukocytosis with WBC 13.1. Glucose elevated at 257. Most recent A1c shows 7.0. Ferritin 313, D-dimer 947 and CRP 79. Past Med Surg Social Fam HX - Past Medical History Source: patient, old records reviewed Medical history: COPD, CVA, diabetes, hypertension Additional medical history: right lung drainage Psychiatric history: depression - Past Surgical History Surgical History: cataract, cholecystectomy, heart valve replacement, herniorrhaphy, other Additional surgical history: lung drained, tonsillectomy, nasal surgery, loop recorder removal - Social History Smoking Status: Former smoker (1.5 PPD x 40yrs. Stopped >20yrs ago) Smokeless Tobacco Status: No Alcohol use: none Drug use: none - Family History Father Living Status: Hx Family Cardiac Disorders: Yes (HTN) Hx Family Endocrine Disorder: Yes (DM) Mother Living Status: Hx Family Cardiac Disorders: Yes (HTN, CAD) Hx Family Cancer: Yes (breast, colon) Hx Family Endocrine Disorder: Yes (DM) Internal Medicine - H P: Meds Aspirin Enteric Coated [Aspirin EC] 81 mg PO DAILY 09/30/15 [History] Mirtazapine [Remeron] 15 mg PO HS 03/05/20 [History] Albuterol Sulfate [Albuterol Sulfate Hfa] 2 puff IH Q4-6H PRN 03/06/20 [History] Amlodipine Besylate 10 mg PO DAILY 03/06/20 [History] Atorvastatin [Lipitor] 40 mg PO HS 03/06/20 [History] Finasteride [Proscar] 5 mg PO DAILY 03/06/20 [History] Furosemide [Lasix] 20 mg PO DAILY 03/06/20 [History] Metformin HCl 1,000 mg PO BID 03/06/20 [History] Montelukast [Singulair] 10 mg PO QPM 03/06/20 [History] Omeprazole [PriLOSEC] 40 mg PO DAILY 03/06/20 [History] Topiramate [Topamax] 50 mg PO BID 03/06/20 [History] Vit C/E/Zn/Coppr/Lutein/Z eaxan [Preservision Areds 2 Softgel] 1 cap PO BID 03/06/20 [History] Losartan [Cozaar] 25 mg PO DAILY #30 tablet 03/19/20 [Rx] Metoprolol [Lopressor] 25 mg PO BID #60 tablet 03/19/20 [Rx] Rivaroxaban [Xarelto] 20 mg PO 1700 #30 tablet 03/19/20 [Rx] Allergies Allergy/AdvReac Type Severity Reaction Status Date / Time Penicillins Allergy Severe Swelling Verified 03/06/20 16:07 of Lip/Tongue/Throat All Systems PM: A 10-system review of systems was performed and is negative for pertinent findings except as documented above in the HPI. - Constitutional Constitutional: as per HPI, no chills, no fever(s), no night sweats - EENT Eyes: as per HPI, no change in vision, no discharge, no pain, no photophobia Ears: as per HPI, no ear discharge, no ear pain, no tinnitus Nose, mouth and throat: as per HPI, no dysphagia, no nasal discharge, no neck pain, no sore throat - Breasts Breasts: as per HPI - Cardiovascular Cardiovascular ROS IM: as per HPI, no chest pain, no diaphoresis, no dyspnea, no lightheadedness, no palpitations, no syncope - Respiratory Respiratory: as per HPI, no cough, no dyspnea, no wheezing, no excessive phlegm production - Gastrointestinal Gastrointestinal: as per HPI, no abdominal pain, no diarrhea, no hematemesis, no hematochezia, no melena, no nausea, no vomiting - Genitourinary Genitourinary ROS male: as per HPI - Musculoskeletal Musculoskeletal ROS IM: as per HPI, no numbness, no tingling - Integumentary Integumentary IM: as per HPI, no rash, no unusual bruising - Neurological Neurological ROS: as per HPI, no confusion, no convulsions, no focal weakness, no numbness, no tingling, no tremor(s) - Psychiatric Psychiatric: as per HPI - Endocrine Endocrine IM: as per HPI - Hematologic/Lymphatic Hematologic/Lymphatic : as per HPI, no easy bruising - Allergic/Immunologic Allergic/Immunologic: as per HPI - Constitutional Vitals: Temp Pulse Resp BP Pulse Ox 97.7 F 67 18 131/70 92 03/19/20 14:47 03/19/20 14:47 03/19/20 14:47 03/19/20 14:47 03/19/20 14:47 General appearance: Present: A O X 3, pleasant - Head Head exam: Present: atraumatic, normocephalic - Eye Eye exam: Present: PERRL, conjuntiva pink, sclera anicteric Pupils: Present: PERRL - Neck Neck exam general surgery: Present: supple, trachea midline. Absent: lymphadenopathy - Respiratory Respiratory exam: Present: decreased breath sounds, CTAB. Absent: accessory muscle use, rales, rhonchi, wheezes - Cardiovascular Cardiovascular exam: Present: RRR, +S1, +S2, systolic murmur. Absent: diastolic murmur, gallop, rubs - GI/Abdominal GI/Abdominal exam: Present: normal bowel sounds, soft, no peritoneal signs. Absent: distended, tenderness - Extremities Exam Extremities exam: Present: warm, radial pulses palpable and symmetrical. Absent: calf tenderness, cyanotic, pedal edema - Neurological Exam Neurological exam: Present: CN II-XII intact, oriented X3, no focal deficits. Absent: pronater drift, facial droop, speech deficit - Skin Skin exam: Present: dry, intact Documented By: Jenaro Morales CNP Signed By: 03/19/20 1531 DD/ 1503 Initialized By: [id number] Normal [facility] POC Glucometer Teston 2019 Glucose [Mass/Vol] 244 mg/dL High 70-99 [facility] Comment on above: Performed By: #### P OCGLUCOMETER ####[facility] [id number] [place] [address] Vital Signs Date Time Vital Sign Value Performing Clinician Facility 11-05-2024 11:35-0400 Body height 180.[address] Danielle Hernandez MD Work Phone: [facility] 11-05-2024 11:35-0400 Diastolic blood pressure 77 mm[Hg] Dr. Danielle Hernandez MD Work Phone: [facility] 11-05-2024 11:35-0400 Heart rate 62 /min Dr. Danielle Hernandez MD Work Phone: [facility] 11-05-2024 11:35-0400 Respiratory rate 16 /min Dr. Danielle Hernandez MD Work Phone: [facility] 11-05-2024 11:35-0400 Systolic blood pressure 125 mm[Hg] Dr. Danielle Hernandez MD Work Phone: [facility] 05-29-2024 14:40-0500 Body temperature 97.8 [degF] Dr. Danielle Hernandez MD Work Phone: [facility] 05-29-2024 14:40-0500 Body weight 77.[address] Danielle Hernandez MD Work Phone: [facility] 05-29-2024 14:40-0500 Diastolic blood pressure 65 mm[Hg] Dr. Danielle Hernandez MD Work Phone: [facility] 05-29-2024 14:40-0500 Heart rate 89 /min Dr. Danielle Hernandez MD Work Phone: [facility] 05-29-2024 14:40-0500 Respiratory rate 16 /min Dr. Danielle Hernandez MD Work Phone: [facility] 05-29-2024 14:40-0500 SaO2% (BldA) [Mass fraction] 99 % Dr. Danielle Hernandez MD Work Phone: [facility] 05-29-2024 14:40-0500 Systolic blood pressure 117 mm[Hg] Dr. Danielle Hernandez MD Work Phone: [facility] 05-07-2024 11:49-0500 Body mass index (BMI) [Ratio] 25.1 kg/m2 Dr. Danielle Hernandez MD Work Phone: [facility] 05-07-2024 11:49-0500 Body weight 81.[address] Danielle Hernandez MD Work Phone: [facility] 05-07-2024 11:49-0500 Diastolic blood pressure 78 mm[Hg] Dr. Danielle Hernandez MD Work Phone: [facility] 05-07-2024 11:49-0500 Heart rate 57 /min Dr. Danielle Hernandez MD Work Phone: [facility] 05-07-2024 11:49-0500 Respiratory rate 16 /min Dr. Danielle Hernandez MD Work Phone: [facility] 05-07-2024 11:49-0500 Systolic blood pressure 126 mm[Hg] Dr. Danielle Hernandez MD Work Phone: [facility] 03-06-2024 11:25-0500 Body temperature 97.5 [degF] Dr. Danielle Hernandez MD Work Phone: [facility] 03-06-2024 11:25-0500 Diastolic blood pressure 68 mm[Hg] Dr. Danielle Hernandez MD Work Phone: [facility] 03-06-2024 11:25-0500 Heart rate 75 /min Dr. Danielle Hernandez MD Work Phone: [facility] 03-06-2024 11:25-0500 Respiratory rate 16 /min Dr. Danielle Hernandez MD Work Phone: [facility] 03-06-2024 11:25-0500 Systolic blood pressure 118 mm[Hg] Dr. Danielle Hernandez MD Work Phone: [facility] 05-09-2023 20:21-0500 Body temperature 98.2 [degF] Dr. Yadira Desouza Work Phone: [facility] 05-09-2023 20:21-0500 Diastolic blood pressure 88 mm[Hg] Dr. Yadira Desouza Work Phone: [facility] 05-09-2023 20:21-0500 Heart rate 55 /min Dr. Yadira Desouza Work Phone: [facility] 05-09-2023 20:21-0500 Respiratory rate 16 /min Dr. Yadira Desouza Work Phone: [facility] 05-09-2023 20:21-0500 SaO2% (BldA) [Mass fraction] 96 % Dr. Yadira Desouza Work Phone: [facility] 05-09-2023 20:21-0500 Systolic blood pressure 203 mm[Hg] Dr. Yadira Desouza Work Phone: [facility] 05-09-2023 15:31-0500 Body height 180.[address] Yadira Desouza Work Phone: [facility] 05-09-2023 15:31-0500 Body mass index (BMI) [Ratio] 24.6 kg/m2 Dr. Yadira Desouza Work Phone: [facility] 05-09-2023 15:31-0500 Body weight 80.[address] Yadira Desouza Work Phone: [facility] 04-30-2023 13:48-0500 Body height 175.3 cm Sixto Kelly MD Work Phone: 04-30-2023 13:48-0500 Body weight 85.73 kg Sixto Kelly MD Work Phone: 04-30-2023 13:48-0500 Diastolic blood pressure 78 mm[Hg] Sixto Kelly MD Work Phone: 04-30-2023 13:48-0500 Heart rate 54 /min Sixto Kelly MD Work Phone: 04-30-2023 13:48-0500 Respiratory rate 16 /min Sixto Kelly MD Work Phone: 04-30-2023 13:48-0500 SaO2% (BldA) [Mass fraction] 95 % Sixto Kelly MD Work Phone: 04-30-2023 13:48-0500 Systolic blood pressure 171 mm[Hg] Sixto Kelly MD Work Phone: 04-24-2023 09:41-0500 Body mass index (BMI) [Ratio] 26 kg/m2 Dr. Yadira Desouza Work Phone: [facility] 04-24-2023 09:41-0500 Body weight 84.[address] Yadira Desouza Work Phone: [facility] 04-24-2023 09:41-0500 Diastolic blood pressure 70 mm[Hg] Dr. Yadira Desouza Work Phone: [facility] 04-24-2023 09:41-0500 Heart rate 54 /min Dr. Yadira Desouza Work Phone: [facility] 04-24-2023 09:41-0500 Respiratory rate 16 /min Dr. Yadira Desouza Work Phone: [facility] 04-24-2023 09:41-0500 Systolic blood pressure 134 mm[Hg] Dr. Yadira Desouza Work Phone: [facility] 03-17-2023 19:46-0500 Diastolic blood pressure 72 mm[Hg] [facility] 03-17-2023 19:46-0500 Heart rate 72 /min [facility] 03-17-2023 19:46-0500 Inhaled oxygen flow rate 2 L/min [facility] 03-17-2023 19:46-0500 Respiratory rate 16 /min [facility] 03-17-2023 19:46-0500 SaO2% (BldA) [Mass fraction] 95 % [facility] 03-17-2023 19:46-0500 Systolic blood pressure 134 mm[Hg] [facility] 03-17-2023 16:44-0500 Body mass index (BMI) [Ratio] 26.4 kg/m2 [facility] 03-17-2023 16:44-0500 Body weight 86 kg [facility] 03-17-2023 16:28-0500 Body height 180.34 cm [facility] 03-17-2023 16:28-0500 Body temperature 97.8 [degF] [facility] 11-01-2022 11:06-0400 Body height 182.9 cm Neno Domínguez MD Work Phone: [facility] 11-01-2022 11:06-0400 Body mass index (BMI) [Ratio] 25.63 kg/m2 Neno Domínguez MD Work Phone: [facility] 11-01-2022 11:06-0400 Body temperature 98.1 [degF] Neno Domínguez MD Work Phone: [facility] 11-01-2022 11:06-0400 Body weight 85.73 kg Neno Domínguez MD Work Phone: [facility] 11-01-2022 11:06-0400 Diastolic blood pressure 68 mm[Hg] Neno Domínguez MD Work Phone: [facility] 11-01-2022 11:06-0400 Heart rate 90 /min Neno Domínguez MD Work Phone: [facility] 11-01-2022 11:06-0400 SaO2% (BldA) [Mass fraction] 92 % Neno Domínguez MD Work Phone: [facility] 11-01-2022 11:06-0400 Systolic blood pressure 152 mm[Hg] Neno Domínguez MD Work Phone: [facility] 10-03-2022 10:35-0400 Body height 182.9 cm Jaime Dickey MD Work Phone: [facility] 10-03-2022 10:35-0400 Diastolic blood pressure 92 mm[Hg] Jaime Dickey MD Work Phone: [facility] [employer] 10-03-2022 10:35-0400 Systolic blood pressure 140 mm[Hg] Jaime Dickey MD Work Phone: [facility] 09-14-2022 15:00-0400 Diastolic blood pressure 79 mm[Hg] Komal Blackwell MD Work Phone: [facility] [employer] 09-14-2022 15:00-0400 Heart rate 81 /min Komal Blackwell MD Work Phone: [facility] [employer] 09-14-2022 15:00-0400 Systolic blood pressure 144 mm[Hg] Komal Blackwell MD Work Phone: [facility] [employer] 09-14-2022 11:41-0400 Body temperature 98.01 [degF] Komal Blackwell MD Work Phone: [facility] [employer] 09-14-2022 11:41-0400 Respiratory rate 16 /min Komal Blackwell MD Work Phone: [facility] [employer] 09-14-2022 11:41-0400 SaO2% (BldA) [Mass fraction] 97 % Komal Blackwell MD Work Phone: [facility] 09-12-2022 19:36-0400 Body height 182.9 cm Komal Blackwell MD Work Phone: [facility] [employer] 09-12-2022 19:36-0400 Body mass index (BMI) [Ratio] 26.45 kg/m2 Komal Blackwell MD Work Phone: [facility] [employer] 09-12-2022 19:36-0400 Body weight 88.45 kg Komal Blackwell MD Work Phone: [facility] [employer] 08-13-2022 15:28-0400 Body height 180.3 cm Anshul Mccormick DPM Work Phone: [facility] [employer] 08-13-2022 15:28-0400 Body mass index (BMI) [Ratio] 25.94 kg/m2 Anshul Mccormick DPM Work Phone: [facility] [employer] 08-13-2022 15:28-0400 Body weight 84.37 kg Anshul Mccormick DPM Work Phone: [facility] 08-13-2022 15:28-0400 Diastolic blood pressure 80 mm[Hg] Anshul Mccormick DPM Work Phone: [facility] [employer] 08-13-2022 15:28-0400 Systolic blood pressure 126 mm[Hg] Anshul Mccormick DPM Work Phone: [facility] [employer] 07-31-2022 11:04-0400 Body height 182.9 cm Neno Domínguez MD Work Phone: [facility] 07-31-2022 11:04-0400 Body mass index (BMI) [Ratio] 25.63 kg/m2 Neno Domínguez MD Work Phone: [facility] [employer] 07-31-2022 11:04-0400 Body temperature 98.2 [degF] Neno Domínguez MD Work Phone: [facility] [employer] 07-31-2022 11:04-0400 Body weight 85.73 kg eNno Domínguez MD Work Phone: [facility] 07-31-2022 11:04-0400 Diastolic blood pressure 100 mm[Hg] Neno Domínguez MD Work Phone: [facility] [employer] 07-31-2022 11:04-0400 Heart rate 73 /min Neno Domínguez MD Work Phone: [facility] [employer] 07-31-2022 11:04-0400 SaO2% (BldA) [Mass fraction] 93 % Neno Domínguez MD Work Phone: [facility] [employer] 07-31-2022 11:04-0400 Systolic blood pressure 150 mm[Hg] Neno Domínguez MD Work Phone: [facility] [employer] 07-13-2022 13:45-0400 Diastolic blood pressure 73 mm[Hg] Juan Wilson MD Work Phone: [facility] [employer] 07-13-2022 13:45-0400 Heart rate 62 /min Juan Wilson MD Work Phone: [facility] 07-13-2022 13:45-0400 SaO2% (BldA) [Mass fraction] 96 % Juan Wilson MD Work Phone: [facility] [employer] 07-13-2022 13:45-0400 Systolic blood pressure 144 mm[Hg] Juan Wilson MD Work Phone: [facility] 07-13-2022 13:15-0400 Respiratory rate 16 /min Juan Wilson MD Work Phone: [facility] 07-13-2022 09:28-0400 Body height 182.9 cm Juan Wilson MD Work Phone: [facility] [employer] 07-13-2022 09:28-0400 Body mass index (BMI) [Ratio] 24.95 kg/m2 Juan Wilson MD Work Phone: [facility] [employer] 07-13-2022 09:28-0400 Body temperature 97.7 [degF] Juan Wilson MD Work Phone: [facility] 07-13-2022 09:28-0400 Body weight 83.46 kg Juan Wilson MD Work Phone: [facility] [employer] 06-26-2022 13:18-0400 Body height 182.9 cm Juan Wilson MD Work Phone: [facility] [employer] 06-26-2022 13:18-0400 Body mass index (BMI) [Ratio] 24.95 kg/m2 Juan Wilson MD Work Phone: [facility] [employer] 06-26-2022 13:18-0400 Body weight 83.46 kg Juan Wilson MD Work Phone: [facility] [employer] 06-26-2022 13:18-0400 Diastolic blood pressure 66 mm[Hg] Juan Wilson MD Work Phone: [facility] [employer] 06-26-2022 13:18-0400 Heart rate 71 /min Juan Wilson MD Work Phone: [facility] [employer] 06-26-2022 13:18-0400 SaO2% (BldA) [Mass fraction] 91 % Juan Wilson MD Work Phone: [facility] [employer] 06-26-2022 13:18-0400 Systolic blood pressure 144 mm[Hg] Juan Wilson MD Work Phone: [facility] [employer] 05-18-2022 11:24-0500 Body mass index (BMI) [Ratio] 24.81 kg/m2 Juan Wilson MD Work Phone: [facility] [employer] 05-18-2022 11:24-0500 Body weight 83.01 kg Juan Wilson MD Work Phone: [facility] [employer] 05-18-2022 11:24-0500 Diastolic blood pressure 88 mm[Hg] Juan Wilson MD Work Phone: [facility] [employer] 05-18-2022 11:24-0500 Heart rate 84 /min Juan Wilson MD Work Phone: [facility] [employer] 05-18-2022 11:24-0500 SaO2% (BldA) [Mass fraction] 96 % Juan Wilson MD Work Phone: [facility] [employer] 05-18-2022 11:24-0500 Systolic blood pressure 140 mm[Hg] Juan Wilson MD Work Phone: [facility] [employer] 04-28-2022 10:05-0500 Body height 182.9 cm Juan Carlos Hahn MD Work Phone: [facility] [employer] 04-28-2022 10:05-0500 Body mass index (BMI) [Ratio] 25.11 kg/m2 Juan Carlos Hahn MD Work Phone: [facility] [employer] 04-28-2022 10:05-0500 Body temperature 97.9 [degF] Juan Carlos Hahn MD Work Phone: [facility] [employer] 04-28-2022 10:05-0500 Body weight 84.01 kg Juan Carlos Hahn MD Work Phone: [facility] 04-28-2022 10:05-0500 Diastolic blood pressure 92 mm[Hg] Juan Carlos Hahn MD Work Phone: [facility] [employer] 04-28-2022 10:05-0500 Heart rate 82 /min Juan Carlos Hahn MD Work Phone: [facility] [employer] 04-28-2022 10:05-0500 Respiratory rate 16 /min Juan Carlos Hahn MD Work Phone: [facility] 04-28-2022 10:05-0500 SaO2% (BldA) [Mass fraction] 94 % Juan Carlos Hahn MD Work Phone: [facility] [employer] 04-28-2022 10:05-0500 Systolic blood pressure 120 mm[Hg] Juan Carlos Hahn MD Work Phone: [facility] [employer] 04-26-2022 11:12-0500 Diastolic blood pressure 83 mm[Hg] Neno Domínguez MD Work Phone: [facility] 04-26-2022 11:12-0500 Heart rate 78 /min Neno Domínguez MD Work Phone: [facility] [employer] 04-26-2022 11:12-0500 Respiratory rate 16 /min Neno Domínguez MD Work Phone: [facility] [employer] 04-26-2022 11:12-0500 SaO2% (BldA) [Mass fraction] 92 % Neno Domínguez MD Work Phone: [facility] [employer] 04-26-2022 11:12-0500 Systolic blood pressure 151 mm[Hg] Neno Domínguez MD Work Phone: [facility] [employer] 04-26-2022 10:42-0500 Body temperature 97.7 [degF] Neno Domínguez MD Work Phone: [facility] [employer] 04-26-2022 08:00-0500 Body height 182.9 cm Neno Domínguez MD Work Phone: [facility] [employer] 04-26-2022 08:00-0500 Body mass index (BMI) [Ratio] 24.82 kg/m2 Neno Domínguez MD Work Phone: [facility] [employer] 04-26-2022 08:00-0500 Body weight 83.01 kg Neno Domínguez MD Work Phone: [facility] [employer] 04-05-2022 10:54-0500 Body height 182.9 cm Neno Domínguez MD Work Phone: [facility] [employer] 04-05-2022 10:54-0500 Body mass index (BMI) [Ratio] 25.23 kg/m2 Neno Domínguez MD Work Phone: [facility] [employer] 04-05-2022 10:54-0500 Body temperature 98.01 [degF] Neno Domínguez MD Work Phone: [facility] [employer] 04-05-2022 10:54-0500 Body weight 84.37 kg Neno Domínguez MD Work Phone: [facility] [employer] 04-05-2022 10:54-0500 Diastolic blood pressure 84 mm[Hg] Neno Domínguez MD Work Phone: [facility] [employer] 04-05-2022 10:54-0500 Heart rate 81 /min Neno Domínguez MD Work Phone: [facility] [employer] 04-05-2022 10:54-0500 SaO2% (BldA) [Mass fraction] 96 % Neno Domínguez MD Work Phone: [facility] [employer] 04-05-2022 10:54-0500 Systolic blood pressure 124 mm[Hg] Neno Domínguez MD Work Phone: [facility] [employer] Encounters Encounter Date Encounter Type Care Provider Facility Start: 11-05-2024 End: 11-05-2024 Patient encounter procedure Génesis CROSS -[facility] Work Phone: Start: 11-05-2024 End: 11-05-[address] Danielle Hernandez MD Work Phone: -[facility] Start: 10-27-2024 End: 10-27-[address] Danielle Hernandez MD Work Phone: -[facility] Start: 10-27-2024 End: 10-27-[address] Danielle Hernandez MD -[facility] Work Phone: Start: 10-01-2024 End: 10-01-[address] Danielle Hernandez MD Work Phone: -[facility] Start: 10-01-2024 End: 10-01-2024 Patient encounter procedure Deion RODAS -[facility] Work Phone: Start: 08-28-2024 ambulatory Danielle PLEITEZ Facility:[facility] Start: 08-28-2024 Registered Referred Danielle Hernandez MD -[facility] Start: 08-26-2024 ambulatory Danielle PLEITEZ Facility:[facility] Start: 08-26-2024 Registered Referred Danielle Hernandez MD -[facility] Start: 08-25-2024 End: 08-25-[address] Danielle Hernandez MD Work Phone: -[facility] Start: 08-25-2024 End: 08-25-[address] Danielle Hernandez MD -[facility] Work Phone: Start: 08-10-2024 End: 08-10-[address] Danielle Hernandez MD Work Phone: [facility] Work Phone: Start: 08-10-2024 End: 08-10-2024 Patient encounter procedure Diandra CROSS -[facility] Work Phone: Start: 08-07-2024 Non-patient / Non-visit Dr. Dov Desouza MD -[facility] Start: 08-07-2024 End: 08-07-[address] Danielle Hernandez MD Work Phone: [facility] Work Phone: Start: 08-07-2024 End: 08-07-[address] Yadira Desouza MD -[facility] Work Phone: Start: 08-07-2024 End: 08-07-2024 ambulatory constantinsuttoncorey Hernandez Facility:[facility] Start: 07-30-2024 End: 07-30-[address] Danielle Hernandez MD Work Phone: [facility] Work Phone: Start: 07-30-2024 End: 07-30-2024 Patient encounter procedure Deion RODAS [facility] Work Phone: Start: 07-21-2024 End: 07-21-[address] Danielle Hernandez MD Work Phone: [facility] Work Phone: Start: 07-21-2024 End: 07-21-[address] Hyacinth Quiles DPM -Laboratory, Specimen Work Phone: Start: 07-21-2024 End: 07-21-2024 ambulatory constantinsuttoncorey Hernandez Facility:[facility] Start: 06-26-2024 End: 06-26-2024 Departed Referred Danielle Hernandez MD -[facility] Start: 06-26-2024 End: 06-26-2024 ambulatory blanca Hernandez [facility] Facility:[facility] Start: 06-23-2024 End: 06-23-[address] Danielle Hernandez MD Work Phone: [facility] Work Phone: Start: 06-23-2024 End: 06-23-[address] Danielle Hernandez MD -[facility] Work Phone: Start: 06-15-2024 End: 06-15-[address] Danielle Hernandez MD Work Phone: [facility] Work Phone: Start: 06-15-2024 End: 06-15-[address] Hyacinth Quiles DPM -Laboratory, Specimen Work Phone: Start: 06-15-2024 End: 06-15-2024 ambulatory [facility] Facility:[facility] Start: 06-10-2024 End: 06-10-2024 ambulatory [facility] Facility:[facility] Start: 06-10-2024 End: 06-10-2024 Patient encounter procedure [facility] Work Phone: Start: 06-01-2024 End: 06-01-2024 ambulatory [facility] Facility:[facility] Start: 06-01-2024 End: 06-01-2024 Patient encounter procedure [facility] Work Phone: Start: 05-29-2024 Non-patient / Non-visit Dr. Jimy hilton MD -[facility] Start: 05-29-2024 End: 05-29-[address] Danielle Hernandez MD Work Phone: [facility] Work Phone: Start: 05-29-2024 End: 05-29-2024 Patient encounter procedure Agueda Champagne MT -[facility] Work Phone: Start: 05-29-2024 End: 05-29-2024 ambulatory Agueda Champagne Facility:[facility] Start: 05-25-2024 End: 05-25-2024 ambulatory Diandra Abdi NP Facility:[facility] Start: 05-25-2024 End: 05-25-2024 Patient encounter procedure [facility] Work Phone: Start: 05-14-2024 ambulatory Danielle butler OLS Facility:[facility] Start: 05-14-2024 Registered Referred Danielle Guz[place]aye [place] Start: 05-10-2024 ambulatory Danielle butler OLS Facility:[facility] Start: 05-10-2024 Registered Referred Danielle GuzmanJaye [place] Start: 05-07-2024 End: 05-07-[address] Yadira Desouza MD -[facility] Work Phone: Start: 05-07-2024 End: 05-07-2024 ambulatory Karentanocorey Sengandresmarjan Facility:[facility] Start: 05-05-2024 End: 05-05-2024 ambulatory Karenyovany Ellsworthandresmarjan Facility:[facility] Start: 05-05-2024 End: 05-05-[address] [facility]le [facility] Work Phone: Start: 05-01-2024 ambulatory Agueda Jameshn Facility:[facility] Start: 05-01-2024 End: 05-01-2024 Departed Referred Danielle GuzmanJaye [place] Start: 05-01-2024 End: 05-01-2024 ambulatory Karenyovany Hernandez OLS Facility:[facility] Start: 04-02-2024 End: 04-02-2024 ambulatory Deion RODAS Facility:[facility] Start: 04-02-2024 End: 04-02-2024 Patient encounter procedure Deion RODAS -[facility] Work Phone: Start: 03-31-2024 End: 03-31-2024 Departed Referred Danielle [facility] Start: 03-31-2024 End: 03-31-2024 ambulatory Danielle Hernandez OLS Facility:[facility] Start: 03-30-2024 End: 03-30-2024 Departed Referred Diandra GuzmanL [facility] Start: 03-30-2024 End: 03-30-2024 ambulatory Diandra Abdi OLS Facility:[facility] Start: 03-10-2024 End: 03-10-2024 ambulatory Efewongbe Oleandrese Facility:[facility] Start: 03-10-2024 End: 03-10-[address] Danielle Hernandez MD -[facility] Work Phone: Start: 03-06-2024 End: 03-06-2024 Patient encounter procedure Agueda RODAS -[facility] Work Phone: Start: 03-06-2024 End: 03-06-2024 ambulatory Agueda Champagne Facility:[facility] Start: 02-28-2024 ambulatory Efewongbe Vijay he OLS Facility:[facility] Start: 02-28-2024 Registered Ramesh Hernandez MD -[facility] Start: 02-05-2024 End: 02-05-2024 ambulatory Efewongbe Oleghe Facility:[facility] Start: 02-04-2024 End: 02-04-2024 ambulatory Efewongbe Oleghe OLS Facility:[facility] Start: 01-24-2024 ambulatory Efewongbe Vijay he OLS Facility:[facility] Start: 01-23-2024 End: 01-23-2024 ambulatory Efewongbe Oleghe Facility:[facility] Start: 01-09-2024 ambulatory Efewongbe Vijay he OLS Facility:[facility] Start: 01-08-2024 End: 01-08-2024 ambulatory Efewongbe Oleghe Facility:[facility] Start: 01-07-2024 ambulatory Efewongbe Vijay he OLS Facility:[facility] Start: 12-27-2023 ambulatory Efewongbe Vijay he OLS Facility:[facility] Start: 12-24-2023 End: 12-24-2023 ambulatory Efewongbe Oleghe Facility:[facility] Start: 12-17-2023 ambulatory Efewongbe Vijay he OLS Facility:[facility] Start: 12-10-2023 End: 12-10-2023 ambulatory Efewongbe Oleghe Facility:[facility] Start: 12-09-2023 End: 12-09-2023 ambulatory Karentanocorey Hernandez Facility:[facility] Start: 11-29-2023 ambulatory Karentanocorey PLEITEZ Facility:[facility] Start: 11-19-2023 End: 11-19-2023 ambulatory Danielle Hernandez Facility:[facility] Start: 08-20-2023 ambulatory [facility] Start: 07-29-2023 ambulatory [facility] Start: 07-26-2023 ambulatory [facility] Start: 07-01-[address] Lincoln Hernandez Work Phone: [facility] Start: 06-28-2023 End: 06-28-[address] Danielle Hernandez Work Phone: [facility] Work Phone: Start: 06-28-2023 End: 06-28-[address] [facility] Hernandez [facility] Start: 06-26-2023 End: 06-26-[address] Danielle Hernandez Work Phone: [facility] Work Phone: Start: 06-26-2023 End: 06-26-[address] Danielle Hernandez Work Phone: [facility] Start: 06-06-2023 ambulatory [facility] Start: 05-30-2023 End: 05-30-[address] Danielle Hernandez Work Phone: [facility] Work Phone: Start: 05-30-2023 End: 05-30-[address] Danielle Hernandez Work Phone: [facility] Work Phone: Start: 05-30-2023 End: 05-30-[address] Danielle Hernandez Work Phone: [facility]/Neurology Work Phone: Start: 05-24-2023 End: 05-24-[address] Danielle Hernandez Work Phone: [facility] Work Phone: Start: 05-24-2023 End: 05-24-[address] Danielle Hernandez Work Phone: [facility] Start: 05-17-2023 End: 05-17-[address] Yadira Desouza Work Phone: [facility] Work Phone: Start: 05-17-2023 End: 05-17-[address] Yadira Desouza Work Phone: [facility] Start: 05-15-2023 End: 05-15-[address] Danielle Hernandez Work Phone: [facility] Work Phone: Start: 05-15-2023 End: 05-15-[address] Danielle Hernandez Work Phone: [facility] Start: 05-15-[address] Yadira Desouza Work Phone: [facility] Start: 05-09-2023 End: 05-09-2023 Emergency department patient visit Dr. Yadira Desouza Work Phone: [facility] Work Phone: Start: 05-09-2023 End: 05-09-[address] Danielle Hernandez Work Phone: [facility] Work Phone: Start: 05-07-2023 End: 05-07-[address] Danielle Hernandez Work Phone: [facility] Work Phone: Start: 04-30-2023 End: 04-30-2023 ambulatory [facility] Facility:[facility] Start: 04-30-2023 End: 04-30-2023 Patient encounter procedure Sixto Kelly MD Work Phone: [facility] Comment on above: Paroxysmal atrial fi brillation (HCC) (Primary Dx); SDH (subdural hematoma) (HCC) Start: 04-30-2023 End: 04-30-2023 Subsequent hospital visit by physician [facility] [place] [facility] RADIO CT [employer] Comment on above: Subdural hematoma (H CC) [S06.5XAA] Start: 04-25-2023 Telephone encounter Sixto Kelly MD Work Phone: [facility] Start: 04-25-2023 End: 04-25-[address] Danielle Hernandez Work Phone: [facility] Work Phone: Start: 04-25-2023 End: 04-25-[address] Danielle Hernandez Work Phone: [facility] Start: 04-25-[address] Yadira Desouza Work Phone: [facility] Start: 04-24-2023 End: 04-24-[address] Yadira Desouza Work Phone: [facility] Work Phone: Start: 04-11-2023 End: 04-11-[address] Yadira Desouza Work Phone: [facility] Work Phone: Start: 04-11-2023 End: 04-11-[address] Yadira Desouza Work Phone: [facility] Start: 04-11-[address] Yadira Desouza Work Phone: [facility] Start: 04-04-[address] Yadira Desouza Work Phone: [facility] Start: 04-01-[address] Yadira Desouza Work Phone: [facility] Start: 03-29-[address] Yadira Desouza Work Phone: [facility] Start: 03-26-2023 End: 03-26-[address] Danielle Hernandez Work Phone: [facility] Work Phone: Start: 03-17-2023 Emergency department patient visit [facility] Facility:[facility] Start: 03-17-2023 End: 03-17-2023 Emergency department patient visit [facility] Work Phone: Start: 03-05-2023 ambulatory MADISON [facility] Start: 02-27-2023 ambulatory GRACE GTZ Facility:[facility] Start: 01-29-2023 ambulatory GRACE GTZ Facility:[facility] Start: 01-16-2023 ambulatory GRACE GTZ [facility] Start: 01-04-2023 ambulatory GRACE GTZ [facility] Start: 01-03-2023 End: 01-04-2023 ambulatory GRACE GTZ [facility] Start: 12-18-2022 ambulatory GRACE GTZ Facility:[facility] Start: 12-13-2022 ambulatory GRACE MOJICA-CALLI Facility:[facility] Start: 12-13-2022 End: 12-13-2022 Subsequent hospital visit by physician Grace Gtz MD Work Phone: [facility] Comment on above: Arrived Start: 12-11-2022 ambulatory GRACE MOJICA-CALLI Facility:[facility] Start: 12-07-2022 ambulatory GRACE MOJICA-CALLI Facility:[facility] Start: 12-04-2022 ambulatory GRACE MOJICA-CALLI Facility:[facility] Start: 11-20-2022 ambulatory GRACE MOJICA-CALLI Facility:[facility] Start: 11-13-2022 ambulatory GRACE MOJICA-CALLI Facility:[facility] Start: 11-06-2022 End: 11-06-2022 Subsequent hospital visit by physician Grace Gtz MD Work Phone: [facility] Comment on above: Arrived Start: 11-06-2022 ambulatory GRACE MOJICA-CALLI Facility:[facility] Start: 11-06-2022 ambulatory GRACE MOJICA-CALLI Facility:[facility] Start: 11-01-2022 ambulatory GRACE MOJICA-CALLI Facility:[facility] Start: 11-01-2022 End: 11-01-2022 Patient encounter procedure Neno Domínguez MD Work Phone: [facility] Comment on above: Personal history of malignant neoplasm of bladder (Primary Dx) Start: 10-31-2022 ambulatory GRACE MOJICA-CALLI Facility:[facility] Start: 10-31-2022 End: 10-31-2022 Subsequent hospital visit by physician Grace Gtz MD Work Phone: [facility] [address] Comment on above: Arrived Start: 10-30-2022 ambulatory GRACE YUNIOR-CALLI [facility] Start: 10-23-2022 ambulatory GRACE YUNIOR-CALLI [facility] Start: 10-16-2022 ambulatory GRACE YUNIOR-CALLI [facility] Start: 10-03-2022 ambulatory JAIME DICKEY [facility] Start: 10-03-2022 End: 10-03-2022 Subsequent hospital visit by physician Jaime Dickey MD Work Phone: [facility] Comment on above: Arrived Start: 10-03-2022 End: 10-03-2022 Postop follow up visit related to original px Jaime Dickey MD Work Phone: [facility] Comment on above: Pain of right hip (P rimary Dx); Closed fracture of multiple pubic rami, right, with routine healing, subsequent encounter Start: 09-12-2022 End: 09-14-2022 ambulatory GRACE YUNIOR-CALLI [facility] Start: 09-12-2022 End: 09-14-2022 Emergency department patient visit Komal Blackwell MD Work Phone: [facility] Comment on above: Fall Start: 09-10-2022 ambulatory GRACE YUNIOR-CALLI [facility] Start: 09-06-2022 ambulatory GRACE YUNIOR-CALLI [facility] Start: 09-03-2022 ambulatory GRACE YUNIOR-CALLI [facility] Start: 08-31-2022 ambulatory GRACE YUNIOR-CALLI [facility] Start: 08-28-2022 ambulatory GRACE YUNIOR-CALLI [facility] Start: 08-28-2022 ambulatory GRACE YUNIOR-CALLI [facility] Start: 08-23-2022 ambulatory GRACE YUNIOR-CALLI [facility] Start: 08-13-2022 ambulatory GRACE YUNIOR-CALLI Facility:[facility] Start: 08-13-2022 End: 08-13-2022 Patient encounter procedure Anshul Mccormick DPM Work Phone: [facility] Comment on above: Dermatophytosis of n ail (Primary Dx); On anticoagulant therapy; Type 2 diabetes mellitus with diabetic neuropathy, without long-term current use of insulin Start: 08-09-2022 ambulatory GRACE YUNIOR-CALLI Facility:[facility] Start: 08-07-2022 ambulatory GRACE YUNIOR-CALLI Facility:[facility] Start: 08-03-2022 ambulatory GRACE YUNIOR-CALLI Facility:[facility] Start: 07-31-2022 ambulatory SELF SELF [facility] Start: 07-31-2022 End: 07-31-2022 Patient encounter procedure Neno Domínguez MD Work Phone: [facility] Comment on above: Personal history of malignant neoplasm of bladder (Primary Dx) Start: 07-24-2022 ambulatory GRACE YUNIOR-CALLI Facility:[facility] Start: 07-13-2022 End: 07-13-2022 ambulatory GRACE YUNIOR-CALLI Facility:[facility] Start: 07-13-2022 End: 07-13-2022 Subsequent hospital visit by physician Juan Wilson MD Work Phone: [facility] Comment on above: Anginal equivalent Start: 07-05-2022 ambulatory GRACE YUNIOR-CALLI Facility:[facility] Start: 06-26-2022 ambulatory SELF SELF [facility] Start: 06-26-2022 End: 06-26-2022 Office outpatient visit 25 minutes Juan Wilson MD Work Phone: [facility]ending [facility] Comment on above: Anginal equivalent ( Primary Dx); Equivalent angina; Primary hypertension; S/P AVR (aortic valve replacement) Start: 06-26-2022 ambulatory GRACE UYNIOR-CALLI Facility:[facility] Start: 06-14-2022 ambulatory GRACE MOJICA-CALLI [facility] Start: 06-14-2022 End: 06-14-2022 Subsequent hospital visit by physician Juan Wilson MD Work Phone: [facility] Comment on above: Arrived Start: 06-05-2022 ambulatory GRACE MOJICA-CALLI [facility] Start: 05-22-2022 ambulatory GRACE MOJICA-CALLI Facility:[facility] Start: 05-18-2022 ambulatory SELF SELF [facility] Start: 05-18-2022 End: 05-18-2022 Office outpatient visit 25 minutes Juan Wilson MD Work Phone: [facility] Comment on above: Bilateral carotid br uits (Primary Dx); Dyspnea on exertion; Primary hypertension; Cerebrovascular accident (CVA), unspecified mechanism; Mixed hyperlipidemia; S/P AVR (aortic valve replacement); Equivalent angina Start: 05-15-2022 ambulatory GRACE MOJICA-CALLI [facility] Start: 05-08-2022 ambulatory GRACE MOJICA-CALLI [facility] Start: 05-04-2022 ambulatory GRACE MOJICA-CALLI [facility] Start: 05-02-2022 ambulatory GRACE MOJICA-CALLI [facility] Start: 04-28-2022 End: 04-28-2022 Emergency department patient visit GRACE GTZ [facility] Start: 04-27-2022 ambulatory ELLY KIM [facility] Start: 04-26-2022 End: 04-27-2022 ambulatory GRACE GTZ [facility] Start: 04-26-2022 End: 04-26-2022 Subsequent hospital visit by physician Neno Domínguez MD Work Phone: [facility] Comment on above: 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 Start: 04-23-2022 ambulatory GRACE MOJICA-CALLI [facility] Start: 04-19-2022 ambulatory GRACE GTZ [facility] Start: 04-16-2022 ambulatory SELF SELF [facility] Start: 04-16-2022 Encounter for other preprocedural examination SELF SELF [facility] Start: 04-10-2022 ambulatory GRACE GTZ [facility] Start: 04-05-2022 ambulatory GRACE GTZ [facility] Start: 04-05-2022 End: 04-05-2022 Patient encounter procedure Neno Domínguez MD Work Phone: [facility] Comment on above: Urinary urgency (Chela jessica Dx); 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 Start: 04-03-2022 ambulatory GRACE GTZ [facility] Start: 03-27-2022 ambulatory GRACE GTZ [facility] Start: 03-20-2022 ambulatory GRACE GTZ [facility] Start: 01-16-2022 End: 01-16-2022 Discharged Recurring Grace Gtz Work Phone: [facility] Start: 01-09-2022 ambulatory Grace Gtz Facility:[facility] Start: 10-05-2021 End: 10-05-2021 ambulatory Neno Domínguez Facility:[facility] Start: 10-05-2021 End: 10-05-2021 Patient encounter procedure Grace Gtz Work Phone: [facility] Start: 08-01-2021 End: 08-01-2021 ambulatory Grace Gtz Facility:[facility] Start: 05-04-2021 End: 05-04-2021 Emergency department patient visit Grace Gtz Facility:[facility] Start: 04-27-2021 End: 04-27-2021 ambulatory Juan U Wilson Facility:[facility] Start: 03-28-2021 End: 03-28-2021 ambulatory Juan U Wilson Facility:[facility] Start: 03-16-2021 End: 03-16-2021 ambulatory Neno Domínguez Facility:[facility] Start: 02-21-2021 End: 02-21-2021 ambulatory Mary Kay Ty Facility:[facility] Start: 02-14-2021 End: 02-14-2021 ambulatory Neno Domínguez Facility:[facility] Start: 01-30-2021 End: 01-30-2021 ambulatory Mary Kay Dav Ty Facility:[facility] Start: 01-22-2021 End: 01-22-2021 Evaluation and management of inpatient Grace Ervin Tresa Facility:[facility] Procedures Date Procedure Procedure Detail Performing Clinician Start: 08-26-2024 Urnls dip stick/tabl et reagent auto microscopy Dr. Danielle Hernandez MD Work Phone: Start: 08-26-[address] Elba Hernandez MD Work Phone: Start: 07-21-2024 Gram stain microscopy Ngozi Hernandez MD Work Phone: Start: 07-21-2024 End: 07-21-2024 Microbial culture, routine Dr. Danielle Hernandez MD Work Phone: Start: 06-15-2024 Gram stain microscopy Ngozi Hernandez MD Work Phone: Start: 06-15-2024 End: 06-15-2024 Microbial culture, routine Dr. Danielle Hernandez MD Work Phone: Start: 05-14-2024 Measurement of renal function Dr. Danielle Hernandez MD Work Phone: Comment on above: GFR Calc Start: 05-10-2024 Legionella pneumophi la antigen assay Dr. Danielle Hernandez MD Work Phone: Start: 05-01-2024 Measurement of renal function Dr. Danielle Hernandez MD Work Phone: Comment on above: GFR Calc Start: 03-31-2024 Measurement of renal function Dr. Danielle Hernandez MD Work Phone: Comment on above: GFR Calc Start: 05-16-2023 Legionella pneumophi la antigen assay Dr. Yadira Desouza Work Phone: Start: 05-15-[address] Blane Desouza Work Phone: Start: 05-09-2023 Plain chest X-ray Dr. Miki Desouza Work Phone: Start: 05-09-2023 Radiography of thoracic spine Dr. Yadira Desouza Work Phone: Start: 05-09-2023 X-ray of lumbar spin e, two or three views Dr. Yadira Desouza Work Phone: Start: 03-18-2023 Antibody screen [facility] Comment on above: Order Comment: Speci men Type: BLOOD SPECIMENOrdering Facility: [facility] Address: [address] [place] [address] Performed By: #### T SCR ####[facility] [id number] [place] [address] [place] Start: 03-17-2023 CT cervical spine wi thout contrast Start: 03-17-2023 CT of head without contrast Start: 03-17-2023 Plain chest X-ray Start: 03-17-2023 Plain x-ray of wrist Start: 03-17-2023 SARS-CoV-2 & FLU Ant igen (Rapid) Start: 03-17-[address] Yadira Desouza Work Phone: Start: 11-01-2022 Cystourethroscopy Neno Domínguez MD Work Phone: Start: 09-14-2022 Glucose quantitative blood xcpt reagent strip Yvon Boyce MD Work Phone: Start: 09-14-2022 Glucose quantitative blood xcpt reagent strip Yvon Boyce MD Work Phone: Start: 09-14-2022 Glucose quantitative blood xcpt reagent strip Yvon Boyce MD Work Phone: Start: 09-14-2022 Prothrombin time Yvon Boyce MD Work Phone: Start: 09-13-2022 Glucose quantitative blood xcpt reagent strip Yvon Boyce MD Work Phone: Start: 09-13-2022 Glucose quantitative blood xcpt reagent strip Yvon Boyce MD Work Phone: Start: 09-13-2022 Glucose quantitative blood xcpt reagent strip Yvon Boyce MD Work Phone: Start: 09-13-2022 Basic metabolic pane l calcium total Zach Sales MD Work Phone: Start: 09-13-2022 Glucose quantitative blood xcpt reagent strip Zach Sales MD Work Phone: Start: 09-12-2022 Glucose quantitative blood xcpt reagent strip Zach Sales MD Work Phone: Start: 09-12-2022 Glucose quantitative blood xcpt reagent strip Zach Sales MD Work Phone: Start: 09-12-2022 Mri any jt lower ext rem w/o contrast matrl Komal Blackwell MD Work Phone: Start: 09-12-2022 Urnls dip stick/tabl et rgnt auto w/o microscopy Komal Blackwell MD Work Phone: Start: 09-12-2022 End: 09-12-2022 Ecg routine ecg w/least 12 lds w/i&r Komal Blackwell MD Work Phone: Start: 09-12-2022 Radex hip unilateral with pelvis 2-3 views Komal Blackwell MD Work Phone: Start: 09-12-2022 Basic metabolic pane l calcium total Komal Blackwell MD Work Phone: Start: 09-12-2022 CBC AND ELECTRONIC DIFF Komal Blackwell MD Work Phone: Start: 09-12-2022 Radiologic exam ches t single view Komal Blackwell MD Work Phone: Start: 09-12-2022 Ct head/brain w/o co ntrast material Komal Blackwell MD Work Phone: Start: 08-13-2022 Debridement nail any method 6/> Anshul Mccormick DPM Work Phone: Start: 07-31-2022 Urnls dip stick/tabl et rgnt auto w/o microscopy Neno Domínguez MD Work Phone: Start: 07-31-2022 Cystourethroscopy Neno Domínguez MD Work Phone: Start: 07-13-2022 Prothrombin time Juan Wilson MD Work Phone: Start: 06-14-2022 Echo tthrc r-t 2d w/ wom-mode compl spec&colr d Juan Wilson MD Work Phone: Start: 06-14-2022 Duplex scan extracra nial art compl bi study Juan Wilson MD Work Phone: Start: 06-14-2022 Myocardial spect mul tiple studies Juan Wilson MD Work Phone: Start: 05-18-2022 Ecg routine ecg w/le ast 12 lds w/i&r Juan Wilson MD Work Phone: Start: 04-28-2022 CBC AND ELECTRONIC DIFF Juan Carlos Hahn MD Work Phone: Start: 04-28-2022 Urnls dip stick/tabl et reagent auto microscopy Juan Carlos Hahn MD Work Phone: Start: 04-28-2022 Ct abdomen & pelvis w/o contrast material Juan Carlos Hahn MD Work Phone: Start: 04-28-2022 Comprehensive metabolic panel Juan Carlos Hahn MD Work Phone: Start: 04-26-2022 Glucose quantitative blood xcpt reagent strip Neno Domínguez MD Work Phone: Start: 04-26-2022 Glucose quantitative blood xcpt reagent strip Neno Domínguez MD Work Phone: Start: 04-05-2022 Cystourethroscopy Neno Domínguez MD Work Phone: Start: 04-11-2020 Pt evaluation Start: 04-11-2020 Ot evaluation Start: 04-02-2020 Microscopic examinat ion of blood, culture Comment on above: Performed By: #### C UBLD ####[facility] [address] [place], [place] [id number] Start: 03-22-2020 Pt evaluation Start: 03-22-2020 Ot evaluation Start: 03-21-2020 Pt evaluation Plan of Treatment Date Care Activity Detail Author Start: 03-21-2026 Diabetes Screening Diabetes Screening Start: 05-09-2023 [facility] Start: 04-28-2023 Potassium [Moles/volume] in Serum or Plasma POTASSIUM [facility] Start: 03-25-2023 Advance Directive Discussion Advance Directive Discussion Start: 03-25-2023 Depression Assessment Depression Assessment Start: 03-17-2023 Aspiration precautions [facility] Start: 03-17-2023 [facility] Start: 02-08-2023 End: 02-08-2023 Patient encounter procedure 02/08/2023 11:00 AM EST Office Visit [facility] [address] [place] [id number] Neno Domínguez MD [address] [place] [address] [facility] Start: 12-18-2022 End: 12-18-2022 Anticoagulant drug monitoring 12/18/2022 10:15 AM EDT Anticoagulation Monitoring [facility] [address] [place] [address] [facility] [address] Start: 11-23-2022 Influenza vaccination INFLUENZA VACCINE (#1) [facility] Start: 11-13-2022 End: 11-13-2022 Anticoagulant drug monitoring 11/13/2022 10:30 AM EDT Anticoagulation Monitoring [facility] [address] [place] [address] [facility] [address] Start: 11-06-2022 End: 11-06-2022 Anticoagulant drug monitoring 11/06/2022 10:45 AM EDT Anticoagulation Monitoring [facility] [address] [place] [address] Grace Gtz MD [address] [place] [address] [facility] [address] Start: 11-01-2022 End: 11-01-2022 Patient encounter procedure [facility] Start: 10-04-2022 End: 10-04-2022 ambulatory 10/04/2022 2:45 PM EDT Rehab Services Visit [facility] [address] [place] [address] Grace Gtz MD [address] [place] [address] John Chauhan, PT [address] [place] [address] [facility] [address] Start: 10-03-2022 End: 07-11-2024 XR Hip - right 2 Views [facility] Comment on above: Expected: 10/03/2022, Expires: 4 1 Occurrences starti ng 10/03/2022 until 10/03/2022 Start: 10-02-2022 End: 10-02-2022 ambulatory 10/02/2022 1:45 PM EDT Rehab Services Visit [facility] [address] [place] [address] Grace Gtz MD [address] [place] [address] Eligio Rajan PTA [address] [place] [address] [facility] [address] Start: 10-02-2022 End: 10-02-2022 Anticoagulant drug monitoring 10/02/2022 9:45 AM EDT Anticoagulation Monitoring [facility] [address] [place] [address] [facility] [address] Start: 09-28-2022 End: 09-28-2022 Patient encounter procedure [facility] Start: 09-27-2022 End: 09-27-2022 ambulatory 09/27/2022 2:00 PM EDT Rehab Services Visit [facility] [address] [place] [address] Grace Gtz MD [address] [place] [address] John Chauhan, PT [address] [place] [address] [facility] [address] Start: 09-24-2022 End: 09-24-2022 ambulatory 09/24/2022 3:00 PM EDT Rehab Services Visit [facility] [address] [place] [address] Grace Gtz MD [address] [place] [address] John Chauhan, PT [address] [place] [address] [facility] [address] Start: 09-20-2022 End: 09-20-2022 ambulatory 09/20/2022 2:15 PM EDT Rehab Services Visit [facility] [address] [place] [address] Grace Gtz MD [address] [place] [address] Eligio Rajan, SCIENTIFIC SOFTWARE DEVELOPER [address] [place] [address] [facility] [address] Start: 09-18-2022 End: 09-18-2022 ambulatory 09/18/2022 4:00 PM EDT Rehab Services Visit [facility] [address] [place] [address] Grace Gtz MD [address] [facility] [place] [address] Eligio Rajan, SCIENTIFIC SOFTWARE DEVELOPER [address] [place] [address] [facility] [address] Start: 08-28-2022 End: 08-28-2022 ambulatory 08/28/2022 Rehab Services Visit Physical Therapy Grace Gtz MD [address] [place] [address] Eligio Rajan, SCIENTIFIC SOFTWARE DEVELOPER [address] [place] [address] [facility] [address] Start: 08-28-2022 End: 08-28-2022 Anticoagulant drug monitoring 08/28/2022 Anticoagulation Monitoring Pharmacy [facility] [address] Start: 08-07-2022 End: 08-07-2022 Anticoagulant drug monitoring 08/07/2022 Anticoagulation Monitoring Pharmacy [facility] [address] Start: 07-31-2022 End: 07-31-2022 Patient encounter procedure 07/31/2022 Office Visit Urology Neno Domínguez MD [address] [facility] [address] [place] [id number] [facility] Start: 07-24-2022 End: 07-24-2022 Patient encounter procedure 07/24/2022 Office Visit Cardiovascular Medicine Juan Wilson MD [address] [place] [address] [facility] Start: 07-24-2022 End: 07-24-2022 Anticoagulant drug monitoring 07/24/2022 Anticoagulation Monitoring Pharmacy [facility] [address] Start: 06-26-2022 End: 06-27-2023 Basic metabolic 2000 panel - Serum or Plasma BASIC METABOLIC PANEL Lab Routine Anginal equivalent Equivalent angina Primary hypertension S/P AVR (aortic valve replacement) Expected: 06/26/2022, Expires: 06/27/2023 [facility] Comment on above: Expected: 06/26/2022, Expires: Start: 06-26-2022 End: 06-27-2023 CBC AND ELECTRONIC DIFF CBC AND ELECTRONIC DIFF Lab Routine Anginal equivalent Equivalent angina Primary hypertension S/P AVR (aortic valve replacement) Expected: 06/26/2022, Expires: 06/27/2023 [facility] [employer] Comment on above: Expected: 06/26/2022, Expires: Start: 06-26-2022 End: 06-27-2023 PROTIME-INR PROTIME-INR Lab Routine Anginal equivalent Equivalent angina Primary hypertension S/P AVR (aortic valve replacement) Expected: 06/26/2022, Expires: 06/27/2023 [facility] Comment on above: Expected: 06/26/2022, Expires: Start: 06-26-2022 End: 06-26-2022 Patient encounter procedure 06/26/2022 Office Visit Cardiovascular Medicine Juan Wilson MD [address] [place], [place] [id number] [facility] Start: 06-26-2022 End: 06-26-2022 Anticoagulant drug monitoring 06/26/2022 [facility]ticoagulation [facility] Start: 05-22-2022 End: 05-22-2022 Anticoagulant drug monitoring 05/22/2022 Anticoagulation Monitoring Pharmacy [facility] [address] Start: 05-02-2022 End: 05-02-2022 Anticoagulant drug monitoring 05/02/2022 Anticoagulation Monitoring [facility] Start: 04-29-2022 COVID-19 VACCINE (3 - Pfizer series) COVID-19 VACCINE (3 - Pfizer series) [facility] Start: 04-26-2022 End: 04-26-2022 Admission to same day surgery center 04/26/2022 Surgery Multispecialty Neno Domínguez MD [address] [facility] [address] [place] [phone] CYSTOURETHROSCOPY WITH FULGURATION/RESECTION LESION BLADDER (TURB) [facility] Comment on above: CYSTOURETHROSCOPY WITH FULGURATION/RESEC TION LESION BLADDER (TURB) Start: 04-26-2022 End: 04-26-2022 Cystourethroscopy w/dest &/rmvl med bladder shaista CYSTOURETHROSCOPY W/ FULGURATION/RESECTION LESION BLADDER (TURB) 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 04/26/2022 9:00 AM EST [facility] Start: 04-26-2022 Subsequent hospital visit by physician 04/26/2022 Hospital Encounter Multispecialty Neno Domínguez MD [address] [facility] [address] [place] [address] 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 [facility] Comment on above: Malignant neoplasm of anterior wall of u rinary bladder Start: 04-16-2022 End: 04-16-2022 ambulatory 04/16/2022 Telemed Clin Support Multispecialty [facility] Pre Admission Testing Start: 04-10-2022 End: 04-10-2022 Anticoagulant drug monitoring 04/10/2022 Anticoagulation Monitoring Pharmacy [facility] [address] Start: 02-21-2022 COVID-19 VACCINE (3 - Booster for Pfizer series) COVID-19 VACCINE (3 - Booster for Pfizer series) [facility] Start: 08-07-2019 Potassium [Moles/volume] in Serum or Plasma POTASSIUM [facility] Start: 02-07-2011 Shingrix Vaccine (2 of 3) Shingrix Vaccine (2 of 3) [facility] Start: 02-07-2011 Zoster vaccine hzv live for subcutaneous use ZOSTER (SHINGLES) VACCINE (2 of 3) [facility] Start: 2000 RSV Vaccine (1 - 1-dose 60+ series) RSV Vaccine (1 - 1-dose 60+ series) Start: 1985 Screening for malignant neoplasm of colon COLORECTAL CANCER SCREENING DISCUSSION [facility] Start: 09-16-1959 Third diphtheria, tetanus and acellular pertussis (DTaP) vaccination TDAP (ADULT) [facility] Start: 09-16-1959 Urine microalbumin profile DTaP,Tdap,Td Vaccine (1 - Tdap) Start: 1940 Tetanus vaccination TETANUS [facility] Basic metabolic 2008 panel with ionized calcium - Serum or Plasma [facility] Bilirubin measuremen t, urine [facility] End: 06-29-2022 Cardiac catheterization study [facility] [facility] Comment on above: One Time for 1 Occurrences starting 09/2022 until 06/29/2022 Cath plmt l hrt & ar ts w/njx & angio img s&i SCHED CATHETERIZATION HEART CORONARY ANGIOGRAM WITH OR WITHOUT LV ANGIO Anginal equivalent Equivalent angina Primary hypertension S/P AVR (aortic valve replacement) [facility] CATH/EP LAB CT BRAIN WO IVCON CT BRAIN WO IV CON Radiology Routine Subdural hematoma (HCC) 04/30/2023 1:52 PM EST [facility] Work Phone: End: 12-13-2022 CT Chest WO contrast [employer] Work Phone: Comment on above: 1 Occurrences starting 12/13/2022 until 12/13/2022 Ecg routine ecg w/le ast 12 lds w/i&r UT ELECTROCARDIOGRAM, COMPLETE UT - OFFICE PERFORMED Routine Anginal equivalent Ordered: 06/26/2022 [employer] Comment on above: Ordered: 06/26/2022 Echocardiography ECHOCARDIOGRAM Echocardiography Routine Dyspnea on exertion S/P AVR (aortic valve replacement) Ordered: 05/18/2022 [employer] Comment on above: Ordered: 05/18/2022 Hemoglobin [Presence ] in Urine [facility] Measurement of keton es in urine using dipstick [facility] Patient Education Bone Contusion ED Back Contusion ED Bruise, Rib ED Fall Prevention [facility] Work Phone: Patient referral [facility] Work Phone: pH of Urine [facility] POCT URINE DIPSTICK AUTOMATED POCT URINE DIPSTICK AUTOMATED Point of Care Testing Routine Personal history of malignant neoplasm of bladder 11/01/2022 11:36 AM EDT [facility] [employer] POCT URINE DIPSTICK AUTOMATED POCT URINE DIPSTICK AUTOMATED Point of Care Testing Routine Urinary urgency 04/05/2022 11:18 AM EST [facility] [employer] Specific gravity of Urine [facility] SPECT Heart perfusio n at rest and W stress and W radionuclide IV NUC MYOCARD PERF STRESS [facility] Cardiac Nuclear Medicine Routine Dyspnea on exertion Ordered: 05/18/2022 [employer] Comment on above: Ordered: 05/18/2022 SURG PATH REQUEST [facility] Comment on above: Release Upon Ordering for 1 Occurrences starting 04/26/2022 Urine dipstick for glucose [facility] Urine dipstick for leukocyte esterase [facility] Urine dipstick for nitrite [facility] Urine dipstick for protein [facility] Urine examination [facility] Urobilinogen [Presen ce] in Urine [facility] Heart [facility].doppler Carotid arteries - bilateral [facility] Comment on above: Ordered: 05/18/2022 End: 11-06-2022 XR Chest PA and Lateral [facility] [employer] Work Phone: Comment on above: 1 Occurrences starting 11/06/2022 until 11/06/2022 End: 10-31-2022 XR Knee - right 2 Views [employer] Work Phone: Comment on above: 1 Occurrences starting 10/31/2022 until 10/31/2022 [facility] Immunizations Immunization Date Immunization Notes Care Provider [facility] 12-27-2021 influenza virus vaccine, unspecified formulation Jaime Dickey MD Work Phone: [facility] [employer] 01-22-2021 influenza, injectabl e, quadrivalent, preservative free Grace Gtz Work Phone: [employer] Work Phone: 12-13-2010 zoster vaccine, unspecified formulation Neno Domínguez MD Work Phone: [facility] Payers Date Payer Category Payer Medicare [id number] 01-18-2021 Medicare [id number] 08-09-2020 Self-pay 03-25-2012 Private Health Insurance [id number] 08-23-2005 Medicare [id number] 1940 Unknown [id number] 2.16. 840.1.670474.3.579.2.903 1940 Unknown [id number] 2.16.8 40.1.819208.3.579.2.1248 1940 Unknown [id number] 2.16.8 40.1.976615.3.579.2.1248 -24-194 Unknown [id number] 2.16.8 40.1.846659.3.579.2.8 -194 Unknown [id number] 2.16.8 40.1.825243.3.579.2.1248 24-1941 Unknown [id number] 2.16.8 40.1.057564.3.579.2.8 194 Unknown [id number] 2.16.8 40.1.614429.3.579.2.1248 24-194 Unknown [id number] 2.16.8 40.1.142749.3.579.2.8 194 Unknown [id number] 2.16.8 40.1.541989.3.579.2.8 194 Unknown [id number] 2.16.8 40.1.089567.3.579.2.8 194 Unknown [id number] 2.16.8 40.1.236389.3.579.2.8 194 Unknown [id number] 2.16.8 40.1.795741.3.579.2.8 194 Unknown [id number] 2.16.8 40.1.814760.3.579.2.8 194 Unknown [id number] 2.16.8 40.1.660796.3.579.2.1248 194 Unknown [id number] 2.16.8 40.1.700767.3.579.2.1248 194 Unknown [id number] 2.16.8 40.1.433627.3.579.2.1248 194 Unknown [id number] 2.16.8 40.1.282974.3.579.2.1248 194 Unknown [id number] 2.16.8 40.1.872863.3.579.2.12409-15-194 Unknown [id number] 2.16.8 40.1.303667.3.579.2.8 194 Unknown [id number] 2.16.8 40.1.807491.3.579.2.8 1940 Unknown [id number] 2.16.8 40.1.944629.3.579.2.8 194 Unknown [id number] 2.16.8 40.1.965598.3.579.2.8 1940 Unknown [id number] 2.16.8 40.1.020034.3.579.2.1247 1940 Unknown [id number] 2.16.8 40.1.170259.3.579.2.1247 1940 Unknown [id number] 2.16.8 40.1.961893.3.579.2.1247 1940 Unknown [id number] 2.16.8 40.1.080747.3.579.2.8 194 Unknown [id number] 2.16.8 40.1.796871.3.579.2.8 194 Unknown [id number] 2.16.8 40.1.261614.3.579.2.8 194 Unknown [id number] 2.16.8 40.1.228036.3.579.2.1247194 Unknown [id number] 2.16.8 40.1.608488.3.579.2.8 194 Unknown [id number] 2.16.8 40.1.527955.3.579.2.1247194 Unknown [id number] 2.16.8 40.1.284748.3.579.2.1247 1940 Unknown [id number] 2.16.8 40.1.395206.3.579.2.1247194 Unknown [id number] 2.16.8 40.1.771618.3.579.2.1248 --1941 Unknown [id number] 2.16.8 40.1.771390.3.579.2.1248 -194 Unknown [id number] 2.16.8 40.1.808935.3.579.2.1248 -194 Unknown [id number] 2.16.84 0.1.999388.3.579.2.1248 1940 Unknown [id number] 2.16.84 0.1.395948.3.579.2.1248 1940 Unknown [id number] 2.16.84 0.1.924915.3.579.2.8 1940 Unknown [id number] 2.16.84 0.1.784209.3.579.2.8 1940 Unknown [id number] 2.16.84 0.1.067785.3.579.2.8 194 Unknown [id number] 2.16.84 0.1.327927.3.579.2.1248 1940 Unknown [id number] 2.16.84 0.1.687417.3.579.2.8 1940 Unknown [id number] 2.16.84 0.1.802918.3.579.2.1248 1940 Unknown [id number] 2.16.84 0.1.365641.3.579.2.1248 194 Unknown [id number] 2.16.84 0.1.960733.3.579.2.8 194 Unknown [id number] 2.16.84 0.1.856054.3.579.2.8 1940 Unknown [id number] 2.16.84 0.1.753395.3.579.2.8 1940 Unknown [id number] 2.16.84 0.1.769260.3.579.2.1248 06- Unknown [id number] 2.16.84 0.1.884221.3.579.2.8 194 Unknown [id number] 2.16.84 0.1.500676.3.579.2.8 1940 Unknown [id number] 2.16.84 0.1.625085.3.579.2.8 194 Unknown [id number] 2.16.84 0.1.509709.3.579.2.8 1940 Unknown [id number] 2.16.84 0.1.466110.3.579.2.8 1940 Unknown [id number] 2.16.84 0.1.206746.3.579.2.8 1940 Unknown [id number] 2.16.84 0.1.669618.3.579.2.8 1940 Unknown [id number] 2.16.84 0.1.955295.3.579.2.8 194 Unknown [id number] 2.16.84 0.1.393419.3.579.2.8 1940 Unknown [id number] 2.16.84 0.1.796090.3.579.2.8 194 Unknown [id number] 2.16.84 0.1.457808.3.579.2.8 1940 Unknown [id number] 2.16.84 0.1.321479.3.579.2.8 194 Unknown [id number] 2.16.84 0.1.589787.3.579.2.8 1940 Unknown [id number] 2.16.8 40.1.200487.3.579.2.1260 194 Unknown [id number] 2.16.8 40.1.564277.3.579.2.1260 194 Unknown [id number] 2.16.8 40.1.322070.3.579.2.1260 1940 Unknown [id number] 2.16.8 40.1.736165.3.579.2.1260 1940 Unknown [id number] 2.16.84 0.1.961566.3.579.2.1260 1940 Unknown [id number] 2.16.84 0.1.623187.3.579.2.1260 1940 Unknown [id number] 2.16.84 0.1.405726.3.579.2.1260 Unknown [id number] 2.16. 840.1.850402.3.579.2.373 Unknown [id number] 2.16. 840.1.011961.3.579.2.373 Unknown [id number] 2.16. 840.1.639522.3.579.2.373 Unknown [id number] 2.16. 840.1.118573.3.579.2.373 Unknown [id number] 2.16. 840.1.345249.3.579.2.373 Unknown [id number] 2.16. 840.1.277876.3.579.2.373 Unknown [id number] 2.16. 840.1.938277.3.579.2.373 Unknown [id number] 2.16. 840.1.288484.3.579.2.373 Unknown [id number] 2.16. 840.1.346017.3.579.2.373 Unknown [id number] 2.16. 840.1.469162.3.579.2.373 Unknown [id number] 2.16. 840.1.748918.3.579.2.373 Unknown [id number] Unknown [id number] Unknown [id number] Unknown [id number] 2.16.8 40.1.278065.3.579.2.462 Unknown [id number] 2.16.8 40.1.077247.3.579.2.462 Unknown [id number] 2.16.8 40.1.766670.3.579.2.462 Unknown [id number] 2.16.8 40.1.438638.3.579.2.462 Unknown [id number] 2.16.8 40.1.661385.3.579.2.462 Unknown [id number] 2.16.8 40.1.570720.3.579.2.462 Unknown [id number] 2.16.8 40.1.488022.3.579.2.462 Unknown [id number] 2.16.8 40.1.243849.3.579.2.462 Unknown [id number] 2.16.8 40.1.222377.3.579.2.462 Unknown [id number] 2.16.8 40.1.557908.3.579.2.462 Unknown [id number] 2.16.8 40.1.923167.3.579.2.462 Unknown [id number] 2.16.8 40.1.288136.3.579.2.462 Unknown 16092810 2.16.8 40.1.494004.3.579.2.462 Unknown [id number] 2.16.8 40.1.556274.3.579.2.462 Unknown [id number] 2.16.8 40.1.376768.3.579.2.462 Unknown [id number] 2.16.8 40.1.398726.3.579.2.462 Unknown [id number] 2.16.8 40.1.802271.3.579.2.462 Unknown [id number] 2.16.8 40.1.686928.3.579.2.462 Unknown [id number] 2.16.8 40.1.050363.3.579.2.462 Unknown [id number] 2.16.8 40.1.323492.3.579.2.462 Unknown [id number] 2.16.8 40.1.736963.3.579.2.462 Unknown [id number] 2.16.8 40.1.306294.3.579.2.462 Unknown [id number] 2.16.8 40.1.820713.3.579.2.462 Unknown [id number] 2.16.8 40.1.899532.3.579.2.462 Unknown [id number] 2.16.8 40.1.074388.3.579.2.462 Unknown [id number] 2.16.8 40.1.295891.3.579.2.462 Unknown [id number] 2.16.8 40.1.736536.3.579.2.462 Unknown [id number] 2.16.8 40.1.890917.3.579.2.462 Unknown [id number] 2.16.8 40.1.602850.3.579.2.462 Unknown [id number] 2.16.8 40.1.233879.3.579.2.462 Unknown [id number] 2.16.8 40.1.560029.3.579.2.462 Unknown [id number] 2.16.8 40.1.090151.3.579.2.462 Unknown [id number] 2.16.8 40.1.953256.3.579.2.462 Unknown [id number] 2.16.8 40.1.744133.3.579.2.462 Unknown [id number] 2.16.8 40.1.245254.3.579.2.462 Unknown [id number] 2.16.8 40.1.337652.3.579.2.462 Unknown [id number] 2.16.8 40.1.452909.3.579.2.462 Unknown [id number] 2.16.8 40.1.802030.3.579.2.462 Unknown [id number] 2.16.8 40.1.300820.3.579.2.462 Unknown [id number] 2.16.8 40.1.103730.3.579.2.462 Unknown [id number] 2.16.8 40.1.663416.3.579.2.462 Unknown [id number] 2.16.8 40.1.966830.3.579.2.462 Unknown [id number] 2.16.8 40.1.518317.3.579.2.462 Unknown [id number] 2.16.8 40.1.078008.3.579.2.462 Unknown [id number] 2.16.8 40.1.643940.3.579.2.462 Unknown [id number] 2.16.8 40.1.493271.3.579.2.462 Unknown [id number] 2.16.8 40.1.381701.3.579.2.462 Unknown [id number] 2.16.8 40.1.442381.3.579.2.462 Social History Date Type Detail Facility Tobacco smoking stat [facility] Unknown if ever smoked [facility] Work Phone: Start: 05-04-2021 Former smoker [facility] Work Phone: Start: 1940 Sex Assigned At Male A [facility] Start: 03-27-2022 End: 03-04-2024 Tobacco smoking status NHIS Ex-smoker [facility] End: 07-05-1996 History of tobacco use Current smoker [facility] End: 07-05-1996 History of tobacco use Cigarette Smoker [facility] Start: 03-27-2022 End: 03-18-2023 Cigarettes smoked current (pack per day) - Reported 1.5 [facility] Start: 03-27-2022 End: 04-30-2023 Tobacco use and exposure Former smokeless tobacco user [facility] End: 07-05-1996 History of tobacco use Chews Tobacco [facility] Start: 05-18-2022 End: 08-13-2022 Alcohol intake Current non-drinker of alcohol (finding) [facility] Start: 08-13-2022 End: 03-18-2023 Tobacco use panel [facility] Start: 06-17-2014 Alcohol Comment On 06/17/2014 r eports less and 1 in prior year, never heavy or regular [facility] Gender identity Identifies as ma le gender (finding) [facility] Start: 03-26-2022 End: 09-12-2022 Exposure to SARS-CoV-2 (event) Not sure [facility] Start: 03-17-2023 End: 05-09-2023 Tobacco smoking status NHIS Unknown if ever smoked [facility] National Score (1-10 0), lower number is lower risk 50 Start: 1940 Sex Assigned At Not on file A [facility] Start: 04-30-2023 Alcohol intake Ex-drinker (finding) Start: 06-09-2024 End: 06-22-2024 Sex Male (finding) [facility] Medical Equipment Procedure Code Equipment Code Equipment Origin al Text Equipment Identifier Dates Insertion of ureteral stent [id number] Ureteral L26cm OD FDA Start: 01-21-2021 Goals Date Patient Goal Desired Activity /State Personal health goal Comment on above: Formatting of this n ote might be different from the original. STG = LTGs (6-8 weeks) Patient will improve LEFS score to >/= 70% to demonstrate improved functional mobility Patient will improve gross LE strength to 5/5 to improve functional mobility Patient will improve Peña balance test score to >/= 45/56 to reduce risk for falls Patient will ambulate community distances with LRAD or no device without unsteadiness or path deviations to improve community mobility Patient will be ind with HEP to facilitate independent management of condition Comment on above: Formatting of this n ote might be different from the original. STG = LTGs (6-8 weeks) Patient will improve LEFS score to >/= 70% to demonstrate improved functional mobility Patient will improve gross LE strength to 5/5 to improve functional mobility Patient will improve Peña balance test score to >/= 45/56 to reduce risk for falls Patient will ambulate community distances with LRAD or no device without unsteadiness or path deviations to improve community mobility Patient will be ind with HEP to facilitate independent management of condition Mental Status Date Assessment Result Facility 03-17-2023 Cognitive function [facility] Work Phone: Clinical Notes 08-23-2010 to 05-29-2024 Note Date & Type Note Facility 05-29-2024 Evaluation note Diagnosis Onset Date Resolution 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 acute May 29, 2024 2:25pm Diabetes mellitus chronic May 292024 2:25pm [facility] Work Phone: 1(282) 773-160412-13-2024 Evaluation note* Diagnosis Onset Date Resolution Status Admit Date 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 acute Decemb er 2023 10:57am Diabetes mellitus chronic Decembe r 2023 10:57am H/O aortic valve replacement August, acute May 07, 2024 1:09pm CAD (coronary artery disease) chroni c May 07, 2024 1:09pm Diabetes mellitus chronic uar y 2024 1:09pm Dyslipidemia chronic April 1:09pm HTN (hypertension) chronic Februa ry 2024 1:09pm Paroxysmal atrial fibrillation chron ic May 07, 2024 1:09pm Thrombocytopenia chronic May 07, 2024 1:09pm 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 acute May 29, 2024 2:25pm Diabetes mellitus chronic May 292024 2:25pm [facility] Work Phone: 1(802) 496-398402-20-2024 Hospital Discharge instructions Additional Instructions X-rays today were negative. No obvious fractures. Tylenol for any pain. Follow-up with either his primary care physician or your medical assistant prn if not improving in the next 3 to 5 days.[facility] Work Phone: 1(982) 414-435702-15-2024 Discharge summary Author Jose Daniel Rivera [facility] May 09, 2023 6:08pm Note Date/Time May 09, 2023 4:16pm [facility] Medical Records Department [address] [place] [address] Emergency Department Summary 05/09/23 MR#: [id number] Acct: [id number] Name: MICK COTTRELL Rep #:[id number] : 1940 82 From: Jose Daniel Rivera MD PCP: Dr. Danielle Hernandez MD Status:R EG ER Location: ED HPI <Sonia Chao RN - Last Filed: 05/09/23 18:06> HPI - Fall History of Present Illness Chief Complaint: Fall Informant: patient and EMS Occured/Mechanism Occurred: Today Mechanism/Context: Yes same level fall Narrative: Fall from standing while walking out of the bathroom and not using walker. Pain/Injury Location: Right upper chest, right thoracic region on back, thoracic and lumbar spina Quality of Pain: Aching Current Severity: Mild Maximum Severity: Moderate Worsened by: Movement and palpation Relieved by: Rest Associated Symptoms Associated Symptoms: Negative for Parasthesias, Weakness, Loss of function or Loss of consciousness Length of loss of consciousness: Patient denies LOC Narrative Narrative: Patient referred to ED from [facility] post fall at approximately noon today while walking out of the bathroom. Per report, patient was not usinghis walker and was found on the floor, unable to get up. Patient denies LOC. Patient with subdural hematoma in 02/2023. Patient Coumadin DC'd at that time. No current anticoagulants. Patient reports right upper chest pain with movementand palpation. Also reports right thoracic back pain and thoracic and lumbar spinal pain. Tetanus Immunization: Unknown Recent Illness/Hospitalization: Yes [facility] <Sonia Chao RN - Last Filed: 05/09/23 18:06> [facility] Medical History Bladder cancer BPH (benign prostatic hyperplasia) CAD (coronary artery disease) Cognitive impairment COPD (chronic obstructive pulmonary disease) COVID-19 (~02/2020) CVA (cerebral vascular accident) Diabetes mellitus Diastolic heart failure with preserved ejection fraction Dysphagia Fracture of thumb, left, closed GERD (gastroesophageal reflux disease) High cholesterol History of fall History of prostate cancer History of TIA (transient ischemic attack) and stroke HTN (hypertension) Hx of stroke associated with blood clotting tendency Hyperlipidemia Major depression Migraine headache Mitral valve problem Neuropathy Nonrheumatic aortic (valve) stenosis SANJU (obstructive sleep apnea) Osteoarthritis Paroxysmal atrial fibrillation Pulmonary embolism Pulmonary nodule SDH (subdural hematoma) Thrombophilia Home Medications atorvastatin 40 mg tablet 40 mg PO QHS 04/22/23 [History Last Taken Unknown] cholecalciferol (vitamin D3) 10 mcg (400 unit) chewable tablet 10 mcg PO DAILY 04/22/23 [History Last Taken Unknown] fexofenadine 180 mg tablet (Boby Hives) 180 mg PO DAILY 04/22/23 [History Last Taken Unknown] finasteride 5 mg tablet 5 mg PO DAILY 04/22/23 [History Last Taken Unknown] fluoxetine 20 mg capsule (Prozac) 20 mg PO DAILY 04/22/23 [History Last Taken Unknown] furosemide 20 mg tablet 20 mg PO DAILY 04/22/23 [History Last Taken Unknown] losartan 25 mg tablet 25 mg PO DAILY 04/22/23 [History Last Taken Unknown] magnesium oxide 400 mg (241.3 mg magnesium) tablet 400 mg PO DAILY 04/22/23 [History Last Taken Unknown] montelukast 10 mg tablet (Singulair) 10 mg PO QHS 04/22/23 [History Last Taken Unknown] oxybutynin chloride 5 mg tablet,extended release 24 hr 5 mg PO DAILY 04/22/23 [History Last Taken Unknown] sertraline 50 mg tablet 50 mg PO DAILY 04/22/23 [History Last Taken Unknown] metformin 1,000 mg tablet 1,000 mg PO DAILY 04/24/23 [History Last Taken Unknown] potassium chloride 10 mEq capsule,extended release 20 meq PO DAILY 04/24/23 [History Last Taken Unknown] metoprolol tartrate 25 mg tablet 25 mg PO BID #60 tabs 05/02/23 [Rx Last Taken Unknown] Allergy/AdvReac Type Severity Reaction Status Date / Time Penicillins Allergy Severe NEEDS Verified 04/24/23 09:48 FOLLOW-UP Family History Mother Heart disease Hypertension Breast cancer Father Hypertension Diabetes Surgical History H/O aortic valve replacement (~09/08/10) History of carpal tunnel release of both wrists History of loop recorder History of thoracotomy History of transurethral resection of bladder tumor (TURBT) Hx laparoscopic cholecystectomy Hx of bilateral cataract extraction Hx of nasal septoplasty Hx of tonsillectomy Social History Smoking Status: Former smoker Smokeless tobacco user: chewing tobacco alcohol intake: never substance use type: does not use caffeine: Yes Type: coffee ROS <Sonia Chao RN - Last Filed: 05/09/23 18:06> ROS ED Constitutional Constitutional ED: Denies chills or fever(s) Eyes Eyes: Denies blurry vision, change in vision or diplopia Cardiovascular Cardiovascular: Denies chest pain or palpitations Respiratory/Chest Respiratory/Chest: Denies cough or dyspnea Gastrointestinal Gastrointestinal: Denies abdominal pain, constipation, diarrhea, nausea or vomiting Genitourinary Genitourinary ED: Denies dysuria, hematuria or urinary frequency Musculoskeletal Musculoskeletal: Reports back pain; Denies neck pain Integumentary Denies rash Neurologic Neurologic: Denies headache(s) or paresthesias EXAM <Sonia Chao RN - Last Filed: 05/09/23 18:06> Physical Exam Const Vital Signs: 05/09/23 15:31 05/09/23 15:52 Temperature 96.0 F L Temperature Source Temporal Pulse Rate 58 L Respiratory Rate 16 Respiratory Effort Normal Respiratory Depth Normal Respiratory Pattern Normal Blood Pressure 202/86 H Blood Pressure Mean 124 Pulse Ox 94 Oxygen Delivery Method Room Air Positive well nourished and well developed General Appearance ED: well developed and NAD HEENT Reports normocephalic atraumatic; Negative for tenderness Eyes PERRL and EOMs intact bilaterally Neck full ROM and supple Neck Narrative: Denies cervical spine tenderness. General: Negative for tenderness Chest Wall inspection of chest normal Chest Narrative: Pain to right upper chest with movement and palpation Resp normal respiratory effort and clear to auscultation bilaterally Effort and Inspection: pain with movement Cardio regular rate, S1 normal heart sound and S2 normal heart sound GI non-tender and non-distended Inspection: Negative for abdominal distention Auscultation: normoactive bowel sounds Palpation: soft Back/Spine Cervical Spine: Negative for cervical spine tenderness Thoracic Spine / Upper Back: thoracic spinal tenderness other (Generalized tenderness with palpation) Lumbar Spine / Lower Back: lumbar spinal tenderness Extremity Extremity Narrative: Patient moves all extremities. Right shoulder pain with movement of right arm. Sensation intact. Neuro Neuro Narrative: Alert and oriented to person. Patient with history of dementia currently [facility]in [facility]. [place] Coma Scale: document GCS findings Spontaneous Obeys Commands Confused 14 Sensorium / Orientation: alert and oriented to person; Negative for oriented to place or oriented to time Motor Exam: strength 5/5 throughout Psych mental status grossly normal Skin Lesions: no lesions Rashes: no rashes Trauma: Negative for abrasion <Dr. Jose Daniel Rivera MD - Last Filed: 05/09/23 18:08> Physical Exam Const Vital Signs: 05/09/23 15:31 05/09/23 15:52 Temperature 96.0 F L Temperature Source Temporal Pulse Rate 58 L Respiratory Rate 16 Respiratory Effort Normal Respiratory Depth Normal Respiratory Pattern Normal Blood Pressure 202/86 H Blood Pressure Mean 124 Pulse Ox 94 Oxygen Delivery Method Room Air Neuro Niki Coma Scale: document GCS findings 14 MDM <Sonia Chao RN - Last Filed: 05/09/23 18:06> MDM MDM Narrative Medical decision making narrative: Will obtain chest x-ray to evaluate for rib fractures. Will obtain thoracic andlumbar spine x-rays to evaluate for fractures. History & Record Review Discussion w/independent historian: EMS personnel Additional record(s) reviewed:: Prior inpatient record Radiography Chest X-Ray - ED: 2 View and Read by ED Physician X-Ray: LS SPine, T-Spine and - (Chest x-ray without clavicle or rib fractures. Suspect old compression fracture of T3. Otherwise thoracic and lumbar spine without obvious fractures.) Diagnostic Testing: Clinical Impression(s) from Imaging Studies Chest X-Ray 05/09/23 16:15 IMPRESSION: Mild interstitial prominence. Electronically Signed: Sunday Miles DO at 17:25 EST , Lumbar Spine X-Ray 05/09/23 16:15 IMPRESSION: Degenerative changes without acute fracture of the lumbar spine. Electronically Signed: Sunday Miles DO at 17:27 EST , Thoracic Spine X-Ray 05/09/23 16:15 IMPRESSION: Degenerative vertebral changes all the visualized thoracic column. Electronically Signed: Sunday Miles DO at 17:37 EST , Management Discussion w/another healthcare provider: Other (Dr. Rivera, ED provider) Treatment and Re-Evaluation Narrative: Upon reevaluation, patient awake and alert. No complaints. Chest x-ray without any clavicle or rib fractures. Thoracic spine x-ray with possible old compression fracture of T3. Lumbar spine negative for acute fracture. Patient to return to [facility]. May use Tylenol for pain as needed. Instructed to use walker as previously prescribed. Discussed plan with patient. Patient agreeable. Patient to follow-up with primary care provider as needed. <Dr. Jose Daniel Rivera MD - Last Filed: 05/09/23 18:08> [facility] MDM Narrative Medical decision making narrative: Will obtain chest x-ray to evaluate for rib fractures. Will obtain thoracic andlumbar spine x-rays to evaluate for fractures. I have personally performed a face to face assessment of the patient and have reviewed the RADHA Note. I performed a substantive portion of the visit including all aspects of the following. My cardoza findings include: History is [82-year-old male at [facility] care facility with a history of dementia. Reportedly had a fall today. Complaining of back and rib pain. No LOC. Reportedly on no blood thinners. I spoke to the [facility] nurse and they had no other concerns. He has not recently been ill.] Exam is [82-year-old male vital signs stable afebrile. HEENT exam pupils round reactive light. No facial trauma. No trauma to his scalp. No hematoma or lacerations. Neck nontender. Lungs clear. Heart regular rhythm rate about 60. Chest wall is mild tenderness to his right sided ribs. No crepitance or subcu air. No bruising. No bony deformity. Abdomen is soft and nontender. No peritoneal signs. No bruising or trauma. Pelvic girdle intact. Moving all 4 extremities. Nontender no deformity. Back he has diffuse tenderness over his back right lateral ribs and thoracic and lumbar spine. There is no specific bruising. Neurologically is awake and alert. He does have dementia he is confused. Reportedly at his baseline. He is moving all 4 extremities.] Medical Decision Making [x-rays of the thoracic spine showed chronic changes questionable old T3 compression fracture but not called by the radiologist. Lumbar spine x-ray shows chronic changes. Chest x-ray shows no obvious rib fractures. Nondisplaced fracture may not be evident.] Other additions or changes: [None] Radiography Diagnostic Testing: Clinical Impression(s) from Imaging Studies Chest X-Ray 05/09/23 16:15 IMPRESSION: Mild interstitial prominence. Electronically Signed: Sunday Miles DO at 17:25 EST , Lumbar Spine X-Ray 05/09/23 16:15 IMPRESSION: Degenerative changes without acute fracture of the lumbar spine. Electronically Signed: Sunday Miles DO at 17:27 EST , Thoracic Spine X-Ray 05/09/23 16:15 IMPRESSION: Degenerative vertebral changes all the visualized thoracic column. Electronically Signed: Sunday Miles DO at 17:37 EST , Chest x-ray, 2 views interpreted by myself shows no obvious rib fractures. Normal lungs and cardiac silhouette. Chronic changes. Also inter by the radiologist agrees. Lumbar spine x-ray 2 views shows chronic changes no acute fracture. Interpreted both by myself and the radiologist Thoracic spine x-ray 2 views questionable T3 compression fracture may be old may just be chronic degenerative disease. Otherwise no fractures. Interpreted both by myself and the radiologist. Discharge Plan Triage Chief Complaint: Fall ED Provider: Jose Daniel Rivera Dx/Rx/DC Orders Clinical Impression: Contusion of rib on right side, Dementia, Fall, Back contusion, History of dementia Instructions: Bone Contusion, ED Back Contusion, ED Bruise, Rib, ED Fall Prevention Prescriptions: No Action fexofenadine [Boby Hives] 180 mg tablet 180 mg PO DAILY atorvastatin 40 mg tablet 40 mg PO QHS losartan 25 mg tablet 25 mg PO DAILY oxybutynin chloride 5 mg tablet extended release 24hr 5 mg PO DAILY furosemide 20 mg tablet 20 mg PO DAILY magnesium oxide 400 mg (241.3 mg magnesium) tablet 400 mg PO DAILY finasteride 5 mg tablet 5 mg PO DAILY fluoxetine [Prozac] 20 mg capsule 20 mg PO DAILY montelukast [Singulair] 10 mg tablet 10 mg PO QHS sertraline 50 mg tablet 50 mg PO DAILY cholecalciferol (vitamin D3) 10 mcg (400 unit) tablet,chewable 10 mcg PO DAILY metformin 1,000 mg tablet 1,000 mg PO DAILY potassium chloride 10 mEq capsule, extended release 20 meq PO DAILY metoprolol tartrate 25 mg tablet 25 mg PO BID Qty: 60 11RF Primary Care Provider: Danielle Hernandez Referrals: Danielle Hernandez MD [Primary Care Provider] - 3-5 Days if not improving NOT,DEFINED [Non-Staff] - Activity Restrictions/Additional Instructions: X-rays today were negative. No obvious fractures. Tylenol for any pain. Follow-up with either his primary care physician or your medical assistant prn if notimproving in the next 3 to 5 days. Disposition Disposition: Home, Self Care Discharge Location: [facility] What to do if you have Problems For any increased pain, shortness of breath, bleeding, nausea or vomiting, chestpain, or any unexpected problems, contact your Primary Care Provider. Call [facility] ([phone]) or report to the closest Emergency Room. Call 911 if necessary. 05/09/231807 <Electronically signed by Jose Daniel Rivera MD> Cosigner Signature (if applicable): 05/09/231805 <Electronically signed by Sonia Chao RN> CC: Dr. Danielle Hernandez MD ~ Signed [facility] Work Phone: 1(145) 328-513902-06-2024 NoteHNO ID: [id number] Author: SIXTO KELLY MD Service: ? Author Type: Physician Type: Progress Notes Filed: 04/30/2023 14:13 Note Text: NEUROSURGERY FOLLOW UP OFFICE NOTE Dr. Sixto Kelly MD, FACS Date of visit: April 30, 2023 Patient Name: Mr.Thomas Cottrell Date of : 1940 Current Age: [age] year old Sex: male MRN/E# [id number] Last Office Visit: Hospital follow-up CHIEF COMPLAINT: Patient presents with: Established Patient SUBJECTIVE: The patient presents as a hospital follow-up with imaging (CT B) for evaluation. This is an 82-year-old male with a PMHx of vascular dementia, CVA, aortic valve replacement 2010 (warfarin/ASA), DM, COVID associated PE, A-fib and HTN who was seen for consult on 03/18/2023 after transfer from an outside hospital. The patient reported to his family that he had a fall at his home but stated that he only hurt his hand. The following day he appeared slightly confused during a family gathering but no other concerns. On his son went to pick him up and he was still in bed at 11:00 AM. He was having difficulty word finding along with confusion and gait impairment. He was taken to an outside hospital where imaging demonstrated an acute left-sided subdural hematoma. He was transferred to [facility] for higher acuity care. Review of imaging showed the acute SDH along the left temporal, frontal, parietal lobe with extension into the tentorium and falx. There is no edema or MLS. Anticoagulants and antiplatelets were reversed. He was placed on a short course of Keppra and monitored in the ICU. Repeat imaging remained stable and no further interventions were indicated. Recommendation was to hold all blood thinning medications and follow-up in 2 weeks from discharge with repeat CT head prompting his visit today. Since discharge she states he is overall doing well. He denies any new or concerning issues with the exception of his memory issues. He is in a memory care facility currently. . He presents for image review, evaluation and plan of care SYMPTOMS: None PREVIOUS CONSERVATIVE TREATMENTS: None SURGICAL RISK: Smoker: Unknown Diabetic: Yes Anticoagulants / Antiplatelets: Coumadin/ASA -on hold Occupation: N/A PREVIOUS SURGERY: None PAIN EVALUATION No data found in the last 1 encounters. History reviewed. No pertinent past medical history. History reviewed. No pertinent surgical history. History reviewed. No pertinent family history. ALLERGIES Allergen Reactions Penicillins Unknown Current Outpatient Medications Medication Sig Dispense Refill acetaminophen (TYLENOL) 500 mg tablet 2 tablets by ORAL/FEEDING TUBE route every 8 hours as needed for pain. atorvastatin (LIPITOR) 40 mg tablet Take 40 mg by mouth once daily. fexofenadine (BOBY HIVES) 180 mg tablet Take 180 mg by mouth once daily. finasteride (PROSCAR) 5 mg tablet Take 5 mg by mouth once daily. furosemide (LASIX) 20 mg tablet Take 20 mg by mouth two times a day. magnesium oxide (MAG-OX) 400 mg (241.3 mg magnesium) tablet Take 400 mg by mouth once daily. metFORMIN (GLUCOPHAGE) 1,000 mg tablet Take 1,000 mg by mouth daily with dinner. metoprolol tartrate, short acting, (LOPRESSOR) 50 mg tablet Take 50 mg by mouth two times a day. montelukast (SINGULAIR) 10 mg tablet Take 10 mg by mouth daily at bedtime. oxybutynin XL (DITROPAN XL) 5 mg 24 hr tablet Take 5 mg by mouth once daily. sertraline (ZOLOFT) 50 mg tablet Take 50 mg by mouth once daily. losartan (COZAAR) 100 mg tablet potassium chloride SR (MICRO-K) 10 mEq CR capsule Cholecalciferol, Vitamin D3, (VITAMIN D-3) 10 mcg (400 unit) chew Take 400 Units by mouth once daily. Chewable No current facility-administered medications for this visit. REVIEW OF SYSTEMS: Review of Systems Constitutional: Negative for chills, diaphoresis (Negative for night sweats.) and fever. HENT: Negative for ear discharge and rhinorrhea. Eyes: Negative for discharge. Respiratory: Negative for cough, shortness of breath and wheezing. Cardiovascular: Negative for chest pain, palpitations and leg swelling. Gastrointestinal: Negative for constipation, diarrhea, nausea and vomiting. Endocrine: Negative for cold intolerance and heat intolerance. Genitourinary: Negative for frequency. Negative for urinary incontinence and urinary retention. Musculoskeletal: Positive for gait problem. Negative for back pain, joint swelling, myalgias and neck pain. Skin: Negative for rash (Negative for hives and skin lesions.). Allergic/Immunologic: Negative for environmental allergies and food allergies. Negative for contact allergy, seasonal allergies. Neurological: Negative for dizziness, seizures, syncope, weakness, light-headedness, numbness (Negative for numbness in extremities.) and headaches. Hematological: Does not bruise/bleed easily. Psychiatric/Behavioral: The patient is not nervous/anxious. Brijesh (more content not included)...[facility]02-06-2024 Note HNO ID: [id number] Author: LOPEZ JAQUEZ RT(R) Service: Radiology Author Type: Technologist Type: Progress Notes Filed: 04/30/2023 14:00 Note Text: Radiology Service Progress Note PATIENT NAME: Mick Cottrell DATE OF SERVICE: April 30, 2023 TIME: 2:00 PM PATIENT IDENTITY VERIFICATION COMPLETED USING TWO (2) IDENTIFIERS: Name and Date of confirmed by patient verbally. FALL SCREENING: Has the patient had 2 falls in the last year or 1 fall with injury or currently using an Ambulatory Assistive Device (Walker, Cane, Wheelchair, Crutches, etc.)? Yes, Patient High Risk for Falls What interventions were put in place to prevent falls during this visit? Offered Assistance with Transfers/Clothing and Increased Observations by Caregivers PATIENT GENDER DATA: Male PATIENT RELEVANT IMPLANT DATA REVIEWED: Not Applicable PATIENT PRESENTS WITH AN IMPLANTABLE OR ATTACHED MEDICAL CLAIMS EXAMINER: NA RADIOLOGY DEPARTMENT: CT; Exam(s) Completed: Brain PERIPHERAL IV DATA: Not applicable SIGNED BY: RT Lucía(R) April 30, 2023 2:00 [facility]02-06-2024 History of Present illness Narrative* Sixto Kelly MD - 04/30/2023 1:49 PM EST NEUROSURGERY FOLLOW UP OFFICE NOTE Dr. Sixto Kelly MD, FACS Date of visit: April 30, 2023 Patient Name: Mr.Thomas Cottrell Date of : 1940 Current Age: [age] year old Sex: male MRN/E# [id number] Last Office Visit: Hospital follow-up CHIEF COMPLAINT: Patient presents with: Established Patient SUBJECTIVE: The patient presents as a hospital follow-up with imaging (CT B) for evaluation. This is an 82-year-old male with a PMHx of vascular dementia, CVA, aortic valve replacement 2010 (warfarin/ASA), DM, COVID associated PE, A-fib and HTN who was seen for consult on 03/18/2023 after transfer from an outside hospital. The patient reported to his family that he had a fall at his home but stated that he only hurt his hand. The following day he appeared slightly confused during a family gathering but no other concerns. On his son went to pick him up and he was still in bed at 11:00 AM. Hewas having difficulty word finding along with confusion and gait impairment. He was taken to an outside hospital where imaging demonstrated an acute left-sided subdural hematoma. He was transferred to [facility] for higher acuity care. Review of imaging showed the acute SDH along the left temporal, frontal, parietal lobe with extension into the tentorium and falx. There is no edema or MLS. Anticoagulants and antiplatelets were reversed. He was placed on a short course of Keppra and monitored in the U. Repeat imaging remained stable and no further interventions were indicated. Recommendation was to hold all blood thinning medications and follow-up in 2 weeks from discharge with repeat CT head prompting his visit today. Since discharge she states he is overall doing well. He denies any new or concerning issues with the exception of his memory issues. He is in a memory care facility currently.. He presents for image review, evaluation and plan of care SYMPTOMS: None PREVIOUS CONSERVATIVE TREATMENTS: None SURGICAL RISK: Smoker: Unknown Diabetic: Yes Anticoagulants / Antiplatelets: Coumadin/ASA -on hold Occupation: N/A PREVIOUS SURGERY: None PAIN EVALUATION No data found in the last 1 encounters. History reviewed. No pertinent past medical history. History reviewed. No pertinent surgical history. History reviewed. No pertinent family history. ALLERGIES Allergen Reactions Penicillins Unknown Current Outpatient Medications Medication Sig Dispense Refill acetaminophen (TYLENOL) 500 mg tablet 2 tablets by ORAL/FEEDING TUBE route every 8 hours as needed for pain. atorvastatin (LIPITOR) 40 mg tablet Take 40 mg by mouth once daily. fexofenadine (BOBY HIVES) 180 mg tablet Take 180 mg by mouth once daily. finasteride (PROSCAR) 5 mg tablet Take 5 mg by mouth once daily. furosemide (LASIX) 20 mg tablet Take 20 mg by mouth two times a day. magnesium oxide (MAG-OX) 400 mg (241.3 mg magnesium) tablet Take 400 mg by mouth once daily. metFORMIN (GLUCOPHAGE) 1,000 mg tablet Take 1,000 mg by mouth daily with dinner. metoprolol tartrate, short acting, (LOPRESSOR) 50 mg tablet Take 50 mg by mouth two times a day. montelukast (SINGULAIR) 10 mg tablet Take 10 mg by mouth daily at bedtime. oxybutynin XL (DITROPAN XL) 5 mg 24 hr tablet Take 5 mg by mouth once daily. sertraline (ZOLOFT) 50 mg tablet Take 50 mg by mouth once daily. losartan (COZAAR) 100 mg tablet potassium chloride SR (MICRO-K) 10 mEq CR capsule Cholecalciferol, Vitamin D3, (VITAMIN D-3) 10 mcg (400 unit) chew Take 400 Units by mouth once daily. Chewable No current facility-administered medications for this visit. REVIEW OF SYSTEMS: Review of Systems Constitutional: Negative for chills, diaphoresis (Negative for night sweats.) and fever. HENT: Negative for ear discharge and rhinorrhea. Eyes: Negative for discharge. Respiratory: Negative for cough, shortness of breath and wheezing. Cardiovascular: Negative for chest pain, palpitations and leg swelling. Gastrointestinal: Negative for constipation, diarrhea, nausea and vomiting. Endocrine: Negative for cold intolerance and heat intolerance. Genitourinary: Negative for frequency. Negative for urinary incontinence and urinary retention. Musculoskeletal: Positive for gait problem. Negative for back pain, joint swelling, myalgias and neck pain. Skin: Negative for rash (Negative for hives and skin lesions.). Allergic/Immunologic: Negative for environmental allergies and food allergies. Negative for contact allergy, seasonal allergies. Neurological: Negative for dizziness, seizures, syncope, weakness, light- headedness, numbness (Negative for numbness in extremities.) and headaches. Hematological: Does not bruise/bleed easily. Psychiatric/Behavioral: The patient is not nervous/anxious. Memory deficits OBJECTIVE: BP 171/78 Pulse 54 Resp 16 Ht 5' 9" (1.75m) Wt 189 lb (85.7kg) SpO2 95% BMI 27.90 kg/(m^2). PHYSICAL EXAM: Mental State : Alert, memory function unremarkable. Attention span and concentration normal for patient's age. Speech normal, no receptive or expressive speech deficit. Recent and remote memory normal. Orientation : Oriented to person, place and time. Higher Cortical Function : Intact speech and language. Spontaneous speech and comprehension normal.Fund of knowledge intact for pt level of education. Cranial Nerves : II: No visual field cut no blurring, Makes and sustains eye contact III, IV, : Normal, no double vision or drooping. Pupils equal and reactive to light. Extraocularmuscles intact. No nystagmus V: Normal sensation on the face, normal jaw movements VII: No paresis on either side VIII: No gross hearing deficit IX: Good and equal shoulder shrugs XII: Tongue midline, no fasciculations Sensory: SILT. Normal Sensation in upper and lower extremities and trunk to touch and noxious stimuli. Motor: Normal muscle tone and bulk. No tremor or uncontrollable movements. No spasticity or tremor. Strength: Upper Extremities : R L Deltoid 5/5 5/5 Biceps 5/5 5/5 Triceps 5/5 5/5 Wrist Ext 5/5 5/5 Wrist Flx 5/5 5/5 Hand Int 5/5 5/5 Lower Extremities : Hip Flexors 5/5 5/5 Hip Extensors 5/5 5/5 Hip Abductors 5/5 5/5 Straight leg Neg Neg Ankle dorsiflex /5 5/5 Ankle Plantar 5/5 5/5 Heel Walking intact intact Toe Walking intact intact Reflexes : Biceps 2+ 2+ Triceps 2+ 2+ Wrist 2+ 2+ Patellar 2+ 2+ Achilles 2+ 2+ Chavarria's Neg Neg Tinel's Neg Neg Phalen's Neg Neg Cerebellar Function : Normal finger to nose. Normal rapid alternating movements. No ataxia. Negative Romberg. Gait and Station: Normal gait. No assistive device usage. Pulmonary: Lungs without cough, audible wheeze. Respirations unlabored. Cardiac: Regular rate and rhythm. No murmer, gallop or rub. IMAGING: CT brain WO IVCON performed today 04/30/23 demonstrates: There is complete resolution of the previously noted subdural hematoma along the floor and convexity of the left temporal region tentorium interhemispheric fissure no evidence of chronic subdural hematoma. ASSESSMENT/PLAN: 1. SDH (subdural hematoma) ([facility]) - ICD9: 432.1, ICD10: S06.5XAA Patient was admitted 17 March 2023 after he fell 2 days prior and was acting confused and his son brought him to the hospital and he was found to have a subdural hematoma and acute on the left side involving the temporal fossa tentorium interhemispheric fissure which did not require surgical intervention. Patient was not having any significant neurological issues other than the fact that he has always had difficulty finding his words. He has history of paroxysmal atrial fibrillation and was on anticoagulants at the time. Today he is feeling much better and he is still in a [facility] recuperating and having rehabilitation and is expected to go home soon. He has no focal neurological def icit by examination. He is able to speak without difficulty. In view of the resolution of the hematoma on the CT scan and I understood that his hardener helper was planning to put him on baby aspirin I allowed him to resume baby aspirin as of today and let his son know that. We will see him on as-needed basis in the future. 2. Paroxysmal atrial fibrillation (HCC) - ICD9: 427.31, ICD10: I48.0 (primary diagnosis) Sixto Kelly MD FOLLOW UP: Return for new or worsening symptoms. Please Note: This note has been partially generated using [employer], a speech recognition software program, and may contain errors including punctuation, grammar, spelling, gender, and inappropriate words or phrases that pertain to the system. documented in this encounter02-06-2024 History of Present illness Narrative* Lopez Jaquez RT(R) - 04/30/2023 1:30 PM EST Radiology Service Progress Note PATIENT NAME: Mick Cottrell DATE OF SERVICE: April 30, 2023 TIME: 2:00 PM PATIENT IDENTITY VERIFICATION COMPLETED USING TWO (2) IDENTIFIERS: Name and Date of confirmedby patient verbally. FALL SCREENING: Has the patient had 2 falls in the last year or 1 fall with injury or currently using an Ambulatory Assistive Device (Walker, Cane, Wheelchair, Crutches, etc.)? Yes, Patient High Riskfor Falls What interventions were put in place to prevent falls during this visit? Offered Assistance with Transfers/Clothing and Increased Observations by Caregivers PATIENT GENDER DATA: Male PATIENT RELEVANT IMPLANT DATA REVIEWED: Not Applicable PATIENT PRESENTS WITH AN IMPLANTABLE OR ATTACHED MEDICAL CLAIMS EXAMINER: NA RADIOLOGY DEPARTMENT: CT; Exam(s) Completed: Brain PERIPHERAL IV DATA: Not applicable SIGNED BY: RT Lucía(David) April 30, 2023 2:00 PM documented in this encounter02-01-2024 Miscellaneous Notes* Telephone Encounter - Jose Damon - 04/25/2023 9:18 AM EST I spoke with Karie at patient facility, Karie is going to ask son if he can provide transportation, if not she will call back and reschedule documented in this encounter12-28-2023 NoteHNO ID: [id number] Author: Kasandra Ha RN Service: ? Author Type: Registered Nurse Type: Nursing Progress Note Filed: 03/21/2023 6:38 PM Note Text: Other: report given to Yesica at [facility] 03-21-2023 NoteHNO ID: [id number] Author: Trinidad Long RN Service: Care Management Author Type: Registered Nurse Type: Care Mgt Progress Note Filed: 03/21/2023 3:51 PM Note Text: CARE MANAGEMENT DISCHARGE NOTE SERVICE DATE: March 21, 2023 SERVICE TIME: 3:50 PM Admission Date: 03/17/2023 LOS: 4 days Discharge Arrangement Discharge Arrangement: [facility]dc Facility Was an expedited discharge program used?: No Services Arranged Medical Services: Other: See Comment (n/a) Provider Name: [facility] Caregiver Assessment Caregiver is ready, willing and able to meet the patient's needs as recommended by the inter-professional team: Yes Name of Caregiver: Jason Cottrell Transportation Arrangements Transportation Arrangements: Ambulance Transportation Agency and Phone #:: [facility] ( 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 The patient, his son Jason, bedside nurse, and facility are aware of 1900 transport time today. DC summary was sent to facility via [facility]. SIGNATURE: Trinidad Long RN PATIENT NAME: Mick Cotterll DATE: March 21, 2023 TIME: 3:50 PM CONTACT #: [phone] Note HNO ID: [id number] Author: Irving Modi PA-C Service: General Surgery Author Type: Physician [employer] Officer Type: Progress Notes Filed: 03/21/2023 3:08 PM Note Text: Documentation Query Based on your medical judgment of the clinical indicators outlined below, please clarify the condition: (Please type X next to your response and sign) Clinical Indicators: 03/17/23 22:35 PT INR 1.1 03/18/2023 ED "hx 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.. SDH... Q1h neuro checks... Rpt H CT tn Received vitamin K at OSH, INR here is 1.1 DDAVP..." 03/21/2023 General Surgery PN "Traumatic Injuries: Left SDH... Non-op management Repeat CTH stable 03/18/2023 Received Vitamin K for Warfarin reversal at [place] and DDAVP for aspirin reversal Warfarin and Aspirin held in lieu of ICH Neuro checks q4hr... Follow-up with neurosurgery in [address] Brain... H/O A-fib on Warfarin, biprosthetic aortic valve, cryptogenic CVAs and TIAs Warfarin and aspirin held as above..." A cause and effect relationship may not be assumed and must be documented by a provider. Please clarify the relationship, if any, between SDH, Warfarin, and Aspirin. Are the conditions: SDH exacerbated by Warfarin SDH exacerbated by Aspirin x SDH exacerbated by Warfarin and Aspirin SDH unrelated to Warfarin and Aspirin Other, Please specify [facility]12-28-2023 NoteHNO ID: [id number] Author: Trinidad Long RN Service: Care Management Author Type: Registered Nurse Type: Care Mgt Progress Note Filed: 03/21/2023 2:11 PM Note Text: CARE MANAGEMENT PROGRESS NOTE SERVICE DATE: 03/21/2023 SERVICE TIME: 1300 LOS: 4 days IMM Follow Up Copy Given: Yes Copy given to:: Patient Fitness Worker Fitness Worker Name/Relationship: Jason Cottrell/son Method: In Person The patient's son, Jason, gave verbal understanding of IMM reminder. SIGNATURE: Trinidad Long RN PATIENT NAME: Mick Cottrell DATE: March 21, 2023 TIME: 2:10 PM PAGER/CONTACT #: [phone]23 NoteHNO ID: [id number] Author: Irving Modi PA-C Service: General Surgery Author Type: Physician [employer] Type: Progress Notes Filed: 03/21/2023 11:05 AM Note Text: Trauma Surgery Progress Note SERVICE DATE: 03/21/2023 Trauma Service Pager: For questions or concerns Mon-Fri 6a-5p please page [phone]. After 5pm and on Weekends and Holidays, please page [phone] if in ICU or [phone] if on RNF. SUBJECTIVE: NAEON. Patient seen and examined this morning. He denied JAMES or visual changes. Intermittently confused during interview. At first, he forgot that he was in the hospital and stated that he was at home. He was able to state his name, , current year and month. No other focal concerns at this time. OBJECTIVE: Vitals: Temp (24hrs), Av.9 ?C (98.5 ?F), Min:36.6 ?C (97.8 ?F), Max:37.4 ?C (99.4 ?F) BP 131/72 Pulse (!) 57 Temp 36.9 ?C (98.5 ?F) (Axillary) Resp 18 Ht 175.3 cm (5' 9") Wt 85.8 kg (189 lb 2.5 oz) SpO2 93% BMI 27.93 kg/m? O2 Therapy: Room Air IANDO: MEDICATIONS: Current Facility-Administered Medications Medication Dose Route Frequency losartan 25 mg tab(s) (COZAAR) 25 mg ORAL DAILY metoprolol tartrate (short acting) 50 mg tab(s) (LOPRESSOR) 50 mg ORAL BID sertraline 50 mg tab(s) (ZOLOFT) 50 mg ORAL AT BEDTIME venlafaxine 75 mg tab(s) (EFFEXOR) 75 mg ORAL BID w MEALS insulin lispro 0-15 Units injection (rapid acting) (ADMElog) 0-15 Units SUBCUTANEOUS w MEALS AND HS heparin 5,000 Units injection 5,000 Units SUBCUTANEOUS q 8 H sodium chloride 0.9 % (flush) 2-10 mL (BD POSIFLUSH) 2-10 mL INTRAVENOUS DIRECTED PRN And perflutren lipid microspheres 1.1 mg/mL 1.3 mL injection (DEFINITY) 1.3 mL INTRAVENOUS DIRECTED PRN ciprofloxacin iv piggyback 400 mg in D5W 200 mL (CIPRO) 400 mg INTRAVENOUS q 12 H hydrALAZINE 10 mg injection (APRESOLINE) 10 mg INTRAVENOUS q 6 H PRN levETIRAcetam 500 mg injection (KEPPRA) 500 mg INTRAVENOUS BID NaCl 0.9% iv flush bag 20 mL INTRAVENOUS PRN ondansetron 4 mg tab(s) (ZOFRAN) 4 mg ORAL q 6 H PRN Or ondansetron (PF) 4 mg injection (ZOFRAN) 4 mg INTRAVENOUS q 6 H PRN acetaminophen 1,000 mg tab(s) (TYLENOL) 1,000 mg ORAL/FEEDING TUBE q 6 H oxyCODONE IR 5 mg tab(s) (ROXICODONE) 5 mg ORAL/FEEDING TUBE q 6 H PRN atorvastatin 40 mg tab(s) (LIPITOR) 40 mg ORAL AT BEDTIME montelukast 10 mg tab(s) (SINGULAIR) 10 mg ORAL AT BEDTIME finasteride 5 mg tab(s) (PROSCAR) 5 mg ORAL DAILY senna-docusate 8.6-50 mg 1 tablet (SENNA-S) 1 tablet ORAL BID dextrose 15 gram/32 mL 15 g (TRUEPLUS) 15 g ORAL PRN Or glucagon 1 mg injection 1 mg INTRAMUSCULAR PRN Or dextrose 10% iv bolus 12.5 g INTRAVENOUS PRN Labs: Recent Labs 03/21/23 0713 03/20/23 0541 NA 134* 137 K 3.9 3.7 CHLOR 102 102 CO2 23 22 BUN 26* 23 CREAT 1.03 0.99 GLUC 187* 167* ANION 9 13 CA 9.0 9.2 WBC 9.52 9.74 HB 14.4 14.7 HCT 42.4 44.6 PLT 127* 140* PHYSICAL EXAM: Genl: Appears age appropriate. No acute distress. Resting comfortably. Head/Face: Normocephalic. Atraumatic Eyes: EOMI. PERRLA. Sclera not icteric, not injected Resp: Lungs CTAB. No wheezes, rales or rhonchi. Respiratory status stable on RA CVS: RRR as above. 2+ RA, DP, PT pulses bilaterally. GI: Abdomen is soft, non-tender, non-distended. No guarding or peritoneal signs. MSK: No gross deformities. No clubbing, cyanosis or edema. Normal AROM x 4. Left hand in splint/DORIE Skin: Warm and dry. Not jaundiced. Neuro: AANDOx2 to person and time. Confused on whereabouts. SILT. MIN. GCS15. Psych: Normal mood. Normal affect. Appropriate insight into current situation. ASSESSMENT AND PLAN: Assessment Active Hospital Problems Diagnosis Date Noted SDH (subdural hematoma) (HCC) 03/17/2023 Fall 03/18/2023 Hypokalemia 03/18/2023 Assessment: 82 year old male s/p GLF on 03/15/2023 ([facility] transfer) Imaging performed: 03/17/2023 - CT HN, CXR, XR wrist (completed at [facility]) 03/17/2023 - PXR, repeat CTH 03/18/2023 - repeat CTH 03/20/2023 - repeat CTH Traumatic Injuries: Left SDH Left thumb metacarpal base fracture Operations/Procedures: 1. None Care Plan: SDH Neurosurgery consulted Non-op management Repeat CTH stable 03/18/2023 Received Vitamin K for Warfarin reversal at [facility] and DDAVP for aspirin reversal Warfarin and Aspirin held in lieu of ICH Neuro checks q4hr Ok for subQ heparin chemo ppx PT/OT Keppra x 7 days Follow-up with neurosurgery in [address] Brain Left thumb metacarpal fracture Ortho consulted Maintain splint to LUE Follow-up with Dr. Cunningham outpatient ? UTI UA 03/18/2023 - 75 leuk esterase, 2+ Hgb, 6-10 RBCs Started on Cipro IV - has received 3 days of IV Abx Given asymptomatic pyuria, will discontinue abx 03/21/2023 H/O A-fib on Warfarin, biprosthetic aortic valve, cryptogenic CVAs and TIAs Warfarin and aspirin held as above Cardiology consulted Per cardiology, patient only require (more content not included)...[facility]12-27-2023 NoteHNO ID: [id number] Author: He Quintero DO Service: General Surgery Author Type: Resident Type: Progress Notes Filed: 03/20/2023 11:58 AM Note Text: Attestation signed by Almas Kaur MD at 03/20/2023 6:39 PM Patient was seen and evaluated by myself on this day March 20, 2023. I agree with the presented documentation unless specifically noted. SIGNATURE: Almas Kaur MD PATIENT NAME: Mick Cottrell DATE: March 20, 2023 TIME: 6:39 PM Pager: [phone] Trauma Surgery Progress Note SERVICE DATE: 03/20/2023 Trauma Service Pager: For questions or concerns Mon-Fri 6a-5p please page [phone]. After 5pm and on Weekends and Holidays, please page [phone] if in ICU or [phone] if on RNF. SUBJECTIVE: Seen and examined this morning, patient alert and oriented x 1-2. Repeat CT scan this morning stable. There is discussed disposition plan with son via the phone today. Plan for [facility] facility and discussed the risks and benefits of blood thinners versus holding blood thinners and antiplatelets. OBJECTIVE: Vitals: Temp (24hrs), Av.6 ?C (97.9 ?F), Min:36.4 ?C (97.5 ?F), Max:36.7 ?C (98.1 ?F) BP 169/82 Pulse 80 Temp 36.7 ?C (98.1 ?F) (Oral) Resp 16 Ht 175.3 cm (5' 9") Wt 89.4 kg (197 lb 1.5 oz) SpO2 93% BMI 29.11 kg/m? O2 Therapy: Room Air IANDO: Date 03/19/23 07 - 03/20/23 0659 03/20/23 07 - 03/21/23 0659 Shift 1587-8021 2334-1720 6696-0430 24 Hour Total 7357-6494 4186-3255 4231-5064 24 Hour Total INTAKE Shift Total OUTPUT Urine 1000 1000 Output ( External Collection Device 03/18/23 0030) 1000 1000 Shift Total 1000 1000 Weight (kg) 89.4 89.4 89.4 89.4 89.4 89.4 89.4 89.4 MEDICATIONS: Current Facility-Administered Medications Medication Dose Route Frequency heparin 5,000 Units injection 5,000 Units SUBCUTANEOUS q 8 H sodium chloride 0.9 % (flush) 2-10 mL (BD POSIFLUSH) 2-10 mL INTRAVENOUS DIRECTED PRN And perflutren lipid microspheres 1.1 mg/mL 1.3 mL injection (DEFINITY) 1.3 mL INTRAVENOUS DIRECTED PRN ciprofloxacin iv piggyback 400 mg in D5W 200 mL (CIPRO) 400 mg INTRAVENOUS q 12 H hydrALAZINE 10 mg injection (APRESOLINE) 10 mg INTRAVENOUS q 6 H PRN levETIRAcetam 500 mg injection (KEPPRA) 500 mg INTRAVENOUS BID NaCl 0.9% iv flush bag 20 mL INTRAVENOUS PRN ondansetron 4 mg tab(s) (ZOFRAN) 4 mg ORAL q 6 H PRN Or ondansetron (PF) 4 mg injection (ZOFRAN) 4 mg INTRAVENOUS q 6 H PRN acetaminophen 1,000 mg tab(s) (TYLENOL) 1,000 mg ORAL/FEEDING TUBE q 6 H oxyCODONE IR 5 mg tab(s) (ROXICODONE) 5 mg ORAL/FEEDING TUBE q 6 H PRN atorvastatin 40 mg tab(s) (LIPITOR) 40 mg ORAL AT BEDTIME montelukast 10 mg tab(s) (SINGULAIR) 10 mg ORAL AT BEDTIME finasteride 5 mg tab(s) (PROSCAR) 5 mg ORAL DAILY senna-docusate 8.6-50 mg 1 tablet (SENNA-S) 1 tablet ORAL BID dextrose 15 gram/32 mL 15 g (TRUEPLUS) 15 g ORAL PRN Or glucagon 1 mg injection 1 mg INTRAMUSCULAR PRN Or dextrose 10% iv bolus 12.5 g INTRAVENOUS PRN insulin lispro 0-15 Units injection (rapid acting) (ADMElog) 0-15 Units SUBCUTANEOUS q 6 H Labs: Recent Labs 03/20/23 0541 03/19/23 0042 03/18/23 0631 03/17/23 2235 NA 137 138 < > 138 K 3.7 3.5* < > 3.4* CHLOR 102 103 < > 99 CO2 22 25 < > 27 BUN 23 18 < > 21 CREAT 0.99 0.96 < > 1.14 GLUC 167* 149* < > 217* ANION 13 10 < > 12 CA 9.2 9.1 < > 9.1 ALB -- -- -- 4.1 AST -- -- -- 20 ALT -- -- -- 19 ALKPHOS -- -- -- 129* TBILI -- -- -- 0.9 WBC 9.74 9.55 < > 11.94* HB 14.7 13.7 < > 14.6 HCT 44.6 41.1 < > 43.3 PLT 140* 121* < > 124* INR -- -- -- 1.1 < > = values in this interval not displayed. PHYSICAL EXAM: GENERAL: Alert, no distress, cooperative HEENT: Normocephalic, atraumatic, EOMI NECK: Trachea midline, no JVD SKIN: Color, texture, turgor normal. No rashes or lesions. LUNGS: Normal respiratory rate and effort, on room air CARDIAC: Normal rate, BP as below, good peripheral perfusion, warm extremtities ABDOMEN: Soft, nondistended nontender no rebound or guarding EXTREMITIES: Normal, no deformities, edema, clubbing or skin discoloration. Good capillary refill. NEURO: Alert and oriented x 1-2, sensation grossly intact, MIN, CN 2-12 grossly intact ASSESSMENT AND PLAN: Assessment Active Hospital Problems Diagnosis Date Noted SDH (subdural hematoma) (HCC) 03/17/2023 Fall 03/18/2023 Hypokalemia 03/18/2023 82 year old male s/p ground-level fall on 03/15/2023 Imaging performed: CT HN CXR PXR, L hand XR Traumatic Injuries: Transverse fracture base of 1st metacarpal bone Acute sdh along L temporal and frontoparietal bone Operations/Procedures: 1. none Care Plan: Subdural hematoma Nsy following Every 4 hours neurochecks Okay for DVT prophylaxis per ne (more content not included)...[facility]12-27-2023 NoteHNO ID: [id number] Author: Trinidad Long RN Service: Care Management Author Type: Registered Nurse Type: Care Mgt Progress Note Filed: 03/20/2023 10:14 AM Note Text: Attestation signed by Almas Kaur MD at 03/20/2023 10:29 AM SIGNATURE: Almas Kaur MD PATIENT NAME: Mick Cottrell DATE: March 20, 2023 TIME: 10:29 AM Pager: [phone] CARE MANAGEMENT PROGRESS NOTE SERVICE DATE: 03/20/2023 SERVICE TIME: 10:14 AM LOS: 3 days 7000 Physician Certification of Less Than 30 Days Post-Acute Nursing Facility Needed Earliest Possible Discharge Date: 03/20/23 To the best of my knowledge, all information provided about the individual is a true and an accurate reflection of Mick Cottrell's needs. I certify that following the inpatient level of care, a post-acute nursing facility stay is required for less than 30 days related to the condition(s) for which the patient was treated during the inpatient level of care: Principal Problem: SDH (subdural hematoma) (HCC) Active Problems: Fall Hypokalemia Resolved Problems: * No resolved hospital problems. * Physician: Almas Kaur MD SIGNATURE: Trinidad Long RN PATIENT NAME: Mick Cottrell DATE: March 20, 2023 TIME: 10:14 AM PAGER/CONTACT #: [phone] 03-20-2023 NoteHNO ID: [id number] Author: Trinidad Long RN Service: Care Management Author Type: Registered Nurse Type: Care Mgt Progress Note Filed: 03/20/2023 10:13 AM Note Text: CARE MANAGEMENT PROGRESS NOTE SERVICE DATE: 03/20/2023 SERVICE TIME: 10:13 AM LOS: 3 days Needs Prior to Discharge: Discharge Transportation;Insurance Authorization Chart reviewed. [facility] is able to accept. They are pt's son Jason's first choice facility. I asked the [facility] to start precert. Will notify the attending and son when auth is received. Will need cot transport when ready. SIGNATURE: Trinidad Long RN PATIENT NAME: Mick Cottrell DATE: March 20, 2023 TIME: 10:13 AM PAGER/CONTACT #: [phone] 03-20-2023 NoteHNO ID: [id number] Author: Cecelia Perez DO Service: General Surgery Author Type: Resident Type: Progress Notes Filed: 03/20/2023 7:26 AM Note Text: Attestation signed by Almas Kaur MD at 03/20/2023 6:39 PM Patient was seen and evaluated by myself on this day March 20, 2023. I agree with the presented documentation unless specifically noted. SIGNATURE: Almas Kaur MD PATIENT NAME: Mick Cottrell DATE: March 20, 2023 TIME: 6:39 PM Pager: [phone] Trauma Surgery Progress Note SERVICE DATE: 03/20/2023 Trauma Service Pager: For questions or concerns Mon-Fri 6a-5p please page [phone]. After 5pm and on Weekends and Holidays, please page [phone] if in ICU or [phone] if on RNF. SUBJECTIVE: Patient seen and examined. He was sleeping comfortably. When awoken, he denies any complaints or concerns this morning. States he's doing okay and does not need anything this morning. Moving all extremities. OBJECTIVE: Vitals: Temp (24hrs), Av.7 ?C (98 ?F), Min:36.4 ?C (97.5 ?F), Max:36.8 ?C (98.3 ?F) BP 169/82 Pulse 80 Temp 36.7 ?C (98.1 ?F) (Oral) Resp 16 Ht 175.3 cm (5' 9") Wt 89.4 kg (197 lb 1.5 oz) SpO2 93% BMI 29.11 kg/m? O2 Therapy: Room Air IANDO: Date 03/19/23 07 - 03/20/23 0659 03/20/23 07 - 03/21/23 0659 Shift 4381-1343 1618-4464 9969-1436 24 Hour Total 7936-0372 5136-0816 4416-4373 24 Hour Total INTAKE Shift Total OUTPUT Urine 1000 1000 Output ( External Collection Device 03/18/23 0030) 1000 1000 Shift Total 1000 1000 Weight (kg) 89.4 89.4 89.4 89.4 89.4 89.4 89.4 89.4 MEDICATIONS: Current Facility-Administered Medications Medication Dose Route Frequency heparin 5,000 Units injection 5,000 Units SUBCUTANEOUS q 8 H sodium chloride 0.9 % (flush) 2-10 mL (BD POSIFLUSH) 2-10 mL INTRAVENOUS DIRECTED PRN And perflutren lipid microspheres 1.1 mg/mL 1.3 mL injection (DEFINITY) 1.3 mL INTRAVENOUS DIRECTED PRN ciprofloxacin iv piggyback 400 mg in D5W 200 mL (CIPRO) 400 mg INTRAVENOUS q 12 H hydrALAZINE 10 mg injection (APRESOLINE) 10 mg INTRAVENOUS q 6 H PRN levETIRAcetam 500 mg injection (KEPPRA) 500 mg INTRAVENOUS BID NaCl 0.9% iv flush bag 20 mL INTRAVENOUS PRN ondansetron 4 mg tab(s) (ZOFRAN) 4 mg ORAL q 6 H PRN Or ondansetron (PF) 4 mg injection (ZOFRAN) 4 mg INTRAVENOUS q 6 H PRN acetaminophen 1,000 mg tab(s) (TYLENOL) 1,000 mg ORAL/FEEDING TUBE q 6 H oxyCODONE IR 5 mg tab(s) (ROXICODONE) 5 mg ORAL/FEEDING TUBE q 6 H PRN atorvastatin 40 mg tab(s) (LIPITOR) 40 mg ORAL AT BEDTIME montelukast 10 mg tab(s) (SINGULAIR) 10 mg ORAL AT BEDTIME finasteride 5 mg tab(s) (PROSCAR) 5 mg ORAL DAILY senna-docusate 8.6-50 mg 1 tablet (SENNA-S) 1 tablet ORAL BID dextrose 15 gram/32 mL 15 g (TRUEPLUS) 15 g ORAL PRN Or glucagon 1 mg injection 1 mg INTRAMUSCULAR PRN Or dextrose 10% iv bolus 12.5 g INTRAVENOUS PRN insulin lispro 0-15 Units injection (rapid acting) (ADMElog) 0-15 Units SUBCUTANEOUS q 6 H Labs: Recent Labs 03/20/23 0541 03/19/23 0042 03/18/23 0631 03/17/23 2235 NA 137 138 < > 138 K 3.7 3.5* < > 3.4* CHLOR 102 103 < > 99 CO2 22 25 < > 27 BUN 23 18 < > 21 CREAT 0.99 0.96 < > 1.14 GLUC 167* 149* < > 217* ANION 13 10 < > 12 CA 9.2 9.1 < > 9.1 ALB -- -- -- 4.1 AST -- -- -- 20 ALT -- -- -- 19 ALKPHOS -- -- -- 129* TBILI -- -- -- 0.9 WBC 9.74 9.55 < > 11.94* HB 14.7 13.7 < > 14.6 HCT 44.6 41.1 < > 43.3 PLT 140* 121* < > 124* INR -- -- -- 1.1 < > = values in this interval not displayed. PHYSICAL EXAM: GENERAL: Alert, no distress, cooperative HEENT: Normocephalic, atraumatic, EOMI NECK: Trachea midline, no JVD SKIN: Color, texture, turgor normal. No rashes or lesions. LUNGS: Normal respiratory rate and effort, on room air CARDIAC: Normal rate, good peripheral perfusion, warm extremtities ABDOMEN: Soft,, nondistended nontender no rebound or guarding EXTREMITIES: Normal, no deformities, edema, clubbing or skin discoloration. Good capillary refill. NEURO: Sensation grossly intact, MIN, CN 2-12 grossly intact ASSESSMENT AND PLAN: Assessment Active Hospital Problems Diagnosis Date Noted SDH (subdural hematoma) (HCC) 03/17/2023 Fall 03/18/2023 Hypokalemia 03/18/2023 82 year old male s/p ground-level fall on 03/15/2023 Imaging performed: CT HN CXR PXR, L hand XR Traumatic Injuries: Transverse fracture base of 1st metacarpal bone Acute sdh along L temporal and frontoparietal bone this is Operations/Procedures: 1. none Care Plan: Subdural hematoma NSY following Q4 neurochecks Okay for DVT prophylaxis per neurosurgery, on [facility] Rpt H CT today, pending Keppra BID x 7 days Received vitamin K at [facility], INR here is 1.1 S/P DDAVP L hand fracture Ort (more content not included)...[facility]12-26-2023 NoteHNO ID: [id number] Author: Trinidad Long, RN Service: Care Management Author Type: Registered Nurse Type: Care Mgt Progress Note Filed: 03/19/2023 2:23 PM Note Text: CARE MANAGEMENT PROGRESS NOTE SERVICE DATE: 03/19/2023 SERVICE TIME: 2:21 PM LOS: 2 days Needs Prior to Discharge: Accepting Facility;Facility or Agency Choices;OT/PT Evaluation;To Be Determined;Insurance Authorization;Discharge Transportation;Bed Availability [place] of Choice Given: Yes Level of Care Discussed: [facility] Facility Financial Disclosure Provided: Yes Financial Disclosure Comments: discussed with alvarado Gomez Provider List: [facility] Facility Provider list within the patient's requested geographic area shared with the patient/family: Yes within: 15 miles of zip code: [address] Quality and resource use metrics shared with the patient that are relevant to the patient's goals of care and treatment preferences:: Yes Metrics: Skin Integrity;Potentially Preventable 30-day Post Discharge Readmission Rates;Incidence of Major Falls Chart reviewed. Pt from home alone. Has dementia and has had frequent falls. Admits with a subdural hematoma and left hand fracture. PT/OT evals are pending. Pt's children are wanting him to dc to a SNF/AR in [facility] where his son Jason lives. Jason would like a SNF referral sent to [facility]. Will need precert prior to dc to a facility. Will follow for transitional care planning. SIGNATURE: Trinidad Long RN PATIENT NAME: Mick Cottrell DATE: March 19, 2023 TIME: 2:21 PM PAGER/CONTACT #: [phone] NoteHNO ID: [id number] Author: He Quintero DO Service: General Surgery Author Type: Resident Type: Progress Notes Filed: 03/19/2023 2:18 PM Note Text: Attestation signed by Almas Kaur MD at 03/19/2023 6:25 PM Patient was seen and evaluated by myself on this day March 19, 2023. I agree with the presented documentation unless specifically noted. SIGNATURE: Almas Kaur MD PATIENT NAME: Mick Cottrell DATE: March 19, 2023 TIME: 6:25 PM Pager: [phone] Trauma Surgery Progress Note SERVICE DATE: 03/19/2023 Trauma Service Pager: For questions or concerns Mon-Fri 6a-5p please page [phone]. After 5pm and on Weekends and Holidays, please page [phone] if in ICU or [phone] if on RNF. SUBJECTIVE: Patient seen and examined this morning AAND with O x2. Per neurosurgery okay for DVT prophylaxis, started. Repeat CT head scan for tomorrow. Cardiology consulted given history of prosthetic valve as well as A-fib. Denies any complaints this morning. Seen by speech yesterday okay for pureed diet OBJECTIVE: Vitals: Temp (24hrs), Av.7 ?C (98 ?F), Min:36.6 ?C (97.9 ?F), Max:36.8 ?C (98.3 ?F) BP 150/79 Pulse 71 Temp 36.8 ?C (98.3 ?F) (Temporal) Resp 16 Ht 175.3 cm (5' 9") Wt 89.4 kg (197 lb 1.5 oz) SpO2 94% BMI 29.11 kg/m? O2 Therapy: Room Air IANDO: Date 03/18/23 07 - 03/19/23 0659 03/19/23 07 - 03/20/23 0659 Shift 6430-9286 1782-3921 3572-2500 24 Hour Total 0453-5359 6925-0906 7048-7581 24 Hour Total INTAKE PO 100 100 PO 100 100 IV 422 422 Volume (mL) (NaCl 0.9% iv infusion) 422 422 Shift Total 522 522 OUTPUT Urine 300 400 700 Urine Incontinence/Not Saved 1 x 1 x Output ( External Collection Device 03/18/23 0030) 300 400 700 Shift Total 300 400 700 Weight (kg) 89.4 89.4 89.4 89.4 89.4 89.4 89.4 89.4 MEDICATIONS: Current Facility-Administered Medications Medication Dose Route Frequency heparin 5,000 Units injection 5,000 Units SUBCUTANEOUS q 8 H sodium chloride 0.9 % (flush) 2-10 mL (BD POSIFLUSH) 2-10 mL INTRAVENOUS DIRECTED PRN And perflutren lipid microspheres 1.1 mg/mL 1.3 mL injection (DEFINITY) 1.3 mL INTRAVENOUS DIRECTED PRN ciprofloxacin iv piggyback 400 mg in D5W 200 mL (CIPRO) 400 mg INTRAVENOUS q 12 H hydrALAZINE 10 mg injection (APRESOLINE) 10 mg INTRAVENOUS q 6 H PRN levETIRAcetam 500 mg injection (KEPPRA) 500 mg INTRAVENOUS BID NaCl 0.9% iv flush bag 20 mL INTRAVENOUS PRN ondansetron 4 mg tab(s) (ZOFRAN) 4 mg ORAL q 6 H PRN Or ondansetron (PF) 4 mg injection (ZOFRAN) 4 mg INTRAVENOUS q 6 H PRN acetaminophen 1,000 mg tab(s) (TYLENOL) 1,000 mg ORAL/FEEDING TUBE q 6 H oxyCODONE IR 5 mg tab(s) (ROXICODONE) 5 mg ORAL/FEEDING TUBE q 6 H PRN atorvastatin 40 mg tab(s) (LIPITOR) 40 mg ORAL AT BEDTIME montelukast 10 mg tab(s) (SINGULAIR) 10 mg ORAL AT BEDTIME finasteride 5 mg tab(s) (PROSCAR) 5 mg ORAL DAILY senna-docusate 8.6-50 mg 1 tablet (SENNA-S) 1 tablet ORAL BID dextrose 15 gram/32 mL 15 g (TRUEPLUS) 15 g ORAL PRN Or glucagon 1 mg injection 1 mg INTRAMUSCULAR PRN Or dextrose 10% iv bolus 12.5 g INTRAVENOUS PRN insulin lispro 0-15 Units injection (rapid acting) (ADMElog) 0-15 Units SUBCUTANEOUS q 6 H Labs: Recent Labs 03/19/23 0042 03/18/23 0631 03/17/23 2235 NA 138 137 138 K 3.5* 3.7 3.4* CHLOR 103 102 99 CO2 25 26 27 BUN 18 17 21 CREAT 0.96 0.92 1.14 GLUC 149* 210* 217* ANION 10 9 12 CA 9.1 8.8 9.1 ALB -- -- 4.1 AST -- -- 20 ALT -- -- 19 ALKPHOS -- -- 129* TBILI -- -- 0.9 WBC 9.55 10.98 11.94* HB 13.7 13.3 14.6 HCT 41.1 39.6 43.3 PLT 121* 122* 124* INR -- -- 1.1 PHYSICAL EXAM: GENERAL: Alert, no distress, cooperative HEENT: Normocephalic, atraumatic, EOMI NECK: Trachea midline, no JVD SKIN: Color, texture, turgor normal. No rashes or lesions. LUNGS: Normal respiratory rate and effort, on room air CARDIAC: Normal rate, BP as below, good peripheral perfusion, warm extremtities ABDOMEN: Soft,, nondistended nontender no rebound or guarding EXTREMITIES: Normal, no deformities, edema, clubbing or skin discoloration. Good capillary refill. NEURO: Sensation grossly intact, MIN, CN 2-12 grossly intact ASSESSMENT AND PLAN: Assessment Active Hospital Problems Diagnosis Date Noted SDH (subdural hematoma) (HCC) 03/17/2023 Fall 03/18/2023 Hypokalemia 03/18/2023 82 year old male s/p ground-level fall on 03/15/2023 Imaging performed: CT HN CXR PXR, L hand XR Traumatic Injuries: Transverse fracture base of 1st metacarpal bone Acute sdh along L temporal and frontoparietal bone this is Operations/Procedures: 1. none Care Plan: Subdural hematoma Nsy following Every 4 hours neurochecks Okay for DVT prophylaxis per neurosurgery Cardiology (more content not included)...[facility]12-26-2023 NoteHNO ID: [id number] Author: Anshul Guy APRN.CNP Service: Neurosurgery Author Type: Nurse Practitioner Type: Progress Notes Filed: 03/19/2023 8:06 AM Note Text: Neurosurgery Progress Note SERVICE DATE: 03/19/2023 SUBJECTIVE: NAEON. Denies JAMES/n/v OBJECTIVE: Vitals: Temp (24hrs), Av.6 ?C (97.9 ?F), Min:36.4 ?C (97.5 ?F), Max:36.9 ?C (98.4 ?F) BP 192/92 Pulse 65 Temp 36.6 ?C (97.9 ?F) (Oral) Resp 17 Ht 175.3 cm (5' 9") Wt 89.4 kg (197 lb 1.5 oz) SpO2 95% BMI 29.11 kg/m? O2 Therapy: Room Air IANDO: Date 03/18/23 0700 - 03/19/23 0659 03/19/23 0700 - 03/20/23 0659 Shift 0526-0519 0658-0373 0451-7277 24 Hour Total 4721-9113 0767-1597 0491-9487 24 Hour Total INTAKE PO 100 100 PO 100 100 IV 422 422 Volume (mL) (NaCl 0.9% iv infusion) 422 422 Shift Total 522 522 OUTPUT Urine 300 400 700 Urine Incontinence/Not Saved 1 x 1 x Output ( External Collection Device 03/18/23 0030) 300 400 700 Shift Total 300 400 700 Weight (kg) 89.4 89.4 89.4 89.4 89.4 89.4 89.4 89.4 Medications: Current Facility-Administered Medications Medication Dose Route Frequency heparin 5,000 Units injection 5,000 Units SUBCUTANEOUS q 8 H ciprofloxacin iv piggyback 400 mg in D5W 200 mL (CIPRO) 400 mg INTRAVENOUS q 12 H hydrALAZINE 10 mg injection (APRESOLINE) 10 mg INTRAVENOUS q 6 H PRN levETIRAcetam 500 mg injection (KEPPRA) 500 mg INTRAVENOUS BID NaCl 0.9% iv flush bag 20 mL INTRAVENOUS PRN ondansetron 4 mg tab(s) (ZOFRAN) 4 mg ORAL q 6 H PRN Or ondansetron (PF) 4 mg injection (ZOFRAN) 4 mg INTRAVENOUS q 6 H PRN acetaminophen 1,000 mg tab(s) (TYLENOL) 1,000 mg ORAL/FEEDING TUBE q 6 H oxyCODONE IR 5 mg tab(s) (ROXICODONE) 5 mg ORAL/FEEDING TUBE q 6 H PRN atorvastatin 40 mg tab(s) (LIPITOR) 40 mg ORAL AT BEDTIME montelukast 10 mg tab(s) (SINGULAIR) 10 mg ORAL AT BEDTIME finasteride 5 mg tab(s) (PROSCAR) 5 mg ORAL DAILY senna-docusate 8.6-50 mg 1 tablet (SENNA-S) 1 tablet ORAL BID dextrose 15 gram/32 mL 15 g (TRUEPLUS) 15 g ORAL PRN Or glucagon 1 mg injection 1 mg INTRAMUSCULAR PRN Or dextrose 10% iv bolus 12.5 g INTRAVENOUS PRN insulin lispro 0-15 Units injection (rapid acting) (ADMElog) 0-15 Units SUBCUTANEOUS q 6 H Labs: Recent Labs 03/19/23 0042 03/18/23 0631 03/17/23 2235 NA 138 137 138 K 3.5* 3.7 3.4* CHLOR 103 102 99 CO2 25 26 27 BUN 18 17 21 CREAT 0.96 0.92 1.14 GLUC 149* 210* 217* ANION 10 9 12 CA 9.1 8.8 9.1 ALB -- -- 4.1 AST -- -- 20 ALT -- -- 19 ALKPHOS -- -- 129* TBILI -- -- 0.9 WBC 9.55 10.98 11.94* HB 13.7 13.3 14.6 HCT 41.1 39.6 43.3 PLT 121* 122* 124* INR -- -- 1.1 Exam: GENERAL: No distress, Alert NEURO: AAO self, hospital, year (when given options). Strength equal and intact, no drift. HEENT: normocephalic, atraumatic LUNGS: Unlabored breathing CARDIAC: Regular rate and rhythm as above ABDOMEN: Soft, non-tender, non-distended EXTREMITIES: MIN, No deformities, No edema SKIN: Skin color, texture, turgor normal, No rashes or lesions ASSESSMENT AND PLAN: Active Hospital Problems Diagnosis Date Noted SDH (subdural hematoma) (HCC) 03/17/2023 Fall 03/18/2023 Hypokalemia 03/18/2023 Mick Cottrell is a 82 year old male PMH AVR on Coumadin and ASA s/p fall two days ago, found to have L SDH. - Neuro as above - rCTH tomorrow AM - Cardiology consult for OAC recs - Ok for DVT chemoppx, order placed - Kemaryra x7d Portions of text from this note were copied. All relevant information was reviewed and updated accordingly on 03/19/2023 SIGNATURE: Anshul Guy APRN.STEVEN PATIENT NAME: Mick Ctotrell DATE: March 19, 2023 TIME: 7:50 AM Pager: [phone] History of Past illness Narrative* Problem Noted Date Diagnosed Date Resolved Date Hypokalemia 03/18/2023 03/21/2023 documented as of this encounter (statuses as of 04/25/2023) 12-25-2023 History of Past illness Narrative* Problem Noted Date Diagnosed Date Resolved Date Hypokalemia 03/18/2023 03/21/2023 documented as of this encounter (statuses as of 05/01/2023) 12-25-2023 History of Past illness Narrative* Problem Noted Date Diagnosed Date Resolved Date Hypokalemia 03/18/2023 03/21/2023 documented as of this encounter (statuses as of 05/01/2023) 12-24-2023 Discharge summary Author Brendon Hope [facility] March 17, 2023 8:31pm Note Date/Time March 17, 2023 4:44pm [facility] Medical Records Department [address] [place] [address] Emergency Department Summary 03/17/23 MR#: [id number] Acct: [id number] Name: MICK COTTRELL Rep #:[id number] : 1940 82 From: Brendon Anna PCP: GRACE FELICIANO Status:REG ER Location: ED HPI History of Present Illness Chief Complaint: Confusion [facility] Medical History (Updated 03/17/23 @ 17:16 by Shauna Almeida) High cholesterol History of prostate cancer HTN (hypertension) Hx of stroke associated with blood clotting tendency Mitral valve problem Allergy/AdvReac Type Severity Reaction Status Date / Time Penicillins Allergy Severe NEEDS Verified 03/17/23 16:28 FOLLOW-UP Social History Smoking Status: Former smoker EXAM Physical Exam Const Vital Signs: 03/17/23 16:28 03/17/23 17:17 03/17/23 17:26 Temperature 97.8 F Temperature Source Temporal Pulse Rate 72 Respiratory Rate 16 Blood Pressure 198/101 H 216/107 H Blood Pressure Mean 133 143 Pulse Ox 94 Oxygen Delivery Method Room Air Room Air Oxygen Flow Rate (L/min) 03/17/23 17:27 03/17/23 17:27 03/17/23 17:29 Temperature Temperature Source Pulse Rate 68 61 Respiratory Rate 17 18 Blood Pressure 191/113 H 193/91 H 184/98 H Blood Pressure Mean 139 125 126 Pulse Ox 95 96 Oxygen Delivery Method Room Air Oxygen Flow Rate (L/min) 03/17/23 17:36 03/17/23 17:40 03/17/23 17:46 Temperature Temperature Source Pulse Rate 64 71 69 Respiratory Rate 21 H 21 H 19 H Blood Pressure 180/84 H 171/98 H 171/98 H Blood Pressure Mean 116 122 122 Pulse Ox 92 96 96 Oxygen Delivery Method Nasal Cannula Nasal Cannula Oxygen Flow Rate (L/min) 2 03/17/23 17:55 03/17/23 18:10 03/17/23 18:15 Temperature Temperature Source Pulse Rate 73 72 71 Respiratory Rate 19 H 16 22 H Blood Pressure 144/92 H 136/80 H 129/70 H Blood Pressure Mean 109 98 89 Pulse Ox 96 97 96 Oxygen Delivery Method Nasal Cannula Nasal Cannula Nasal Cannula Oxygen Flow Rate (L/min) 2 2 2 03/17/23 18:30 03/17/23 18:45 03/17/23 19:00 Temperature Temperature Source Pulse Rate 69 72 Respiratory Rate 15 16 16 Blood Pressure 128/68 H 129/93 H Blood Pressure Mean 88 105 Pulse Ox 96 97 Oxygen Delivery Method Nasal Cannula Nasal Cannula Oxygen Flow Rate (L/min) 2 2 03/17/23 19:00 03/17/23 19:15 03/17/23 19:30 Temperature Temperature Source Pulse Rate 71 73 79 Respiratory Rate 18 18 13 Blood Pressure 132/69 H 117/72 133/61 H Blood Pressure Mean 90 87 85 Pulse Ox 96 96 96 Oxygen Delivery Method Nasal Cannula Nasal Cannula Nasal Cannula Oxygen Flow Rate (L/min) 2 2 2 03/17/23 19:40 03/17/23 19:46 03/17/23 19:42 Temperature Temperature Source Pulse Rate 78 72 72 Respiratory Rate 16 16 13 Blood Pressure 133/61 H 134/72 H 133/61 H Blood Pressure Mean 85 92 85 Pulse Ox 96 95 96 Oxygen Delivery Method Nasal Cannula Oxygen Flow Rate (L/min) 2 MDM MDM MDM Narrative Medical decision making narrative: HISTORY OF PRESENT ILLNESS: 82-year-old male here with confusion. Per the patient's family he fell on Saturday states he is on Coumadin. States he is having word finding difficulties. REVIEW OF SYSTEMS: Pertinent positives: Head trauma, confusion, difficulty with speaking Pertinent negatives: Chest pain, shortness of breath, fever PHYSICAL EXAM: Nursing triage notes reviewed, Vital signs reviewed Primary Survey Airway: Intact Breathing: Bilateral breath sounds Circulation: Palpable bilateral femorals, Palpable bilateral radial, Palpable bilateral DP and Palpable bilateral PT Disability / Spine precautions GCS Score: Eye Openin Verbal Response: 4 Motor Response: 6 Secondary Survey Constitutional: Please see [facility] Head: Atraumatic, Midface stable, NO jaw malocclusion, No Cephalohematoma, and No Lacerations noted Eye: Pupils equal round and reactive to light, Extraocular muscles intact and Noperiorbital ecchymosis or stepoff, no evidence of entrapment ENT: Oropharynx clear, no lacerations, no hemotympanum, no raccoon eyes or nick sign Cervical spine / Neck: No cervical spine bony tenderness, crepitance, or stepoffdeformity Trachea midline Lungs: Clear to auscultation, No asymmetric rise and No crepitus, no flail chest Cardiac: Regular rate and rhythm and No murmurs Abdomen: Soft, Nontender and No rebound Pelvis: Pelvis stable to compression : No evidence of genital injury Back: No midline bony tenderness to thoracic/lumbar/sacral spines Neuro: Patient is alert, oriented to person but not to place or time, he moves all 4 extremities he has sensation all 4 extremities, he has expressive aphasia,no obvious dysarthria, no other cranial nerve deficits noted. NIH 0. ICH score 0. Extremities: NO gross Deformities, TTP over left wrist, bruising over left wrist. Psych: Normal affect Nursing triage notes reviewed, Vital signs reviewed MEDICAL DECISION MAKING: Chief Complaint: Confusion External records reviewed: No recent ED visits or hospitalizations noted Factors affecting care: On Coumadin Social determinants of health: Elderly History obtained from others: Son Consults: none [facility] Narrative: Patient was initially hypertensive otherwise afebrile and nontoxic-appearing. There is no lateralizing findings however the patient was altered and had aphasia. His last known well was greater than 24 hours ago, he is on Coumadin he is not a TNK or thrombectomy candidate. I considered the following differential diagnosis: ICH, anemia, pneumonia, COVID, other infectious encephalopathy, metabolic encephalopathy I obtained a broad lab and imaging workup to further elucidate the etiology of the patient's complaints ALL IMAGES (IF OBTAINED) HAVE BEEN PERSONALLY REVIEWED AND INTERPRETED BY MYSELF. CT scan of the head was read reviewed myself shows evidence of a left-sided subdural hematoma. CT scan of cervical spine is negative for acute traumatic injury EKG with normal sinus rhythm, right axis deviation, right bundle branch block, no STEMI or ischemic changes I have personally reviewed the patient's chest x-ray. Chest x-ray is unremarkable for pulmonary edema, pneumothorax, pneumonia or focal cardiopulmonary abnormality. X-ray of the left wrist was read reviewed myself shows evidence of a proximal first metacarpal fracture Serum alcohol negative CBC with leukocytosis suggestive of systemic inflammation, no anemia. Noted mild thrombocytopenia INR 1.8 will give vitamin K Kcentra BMP without evidence of significant electrolyte abnormalities, no anion gap, no acute kidney injury. LFTs show no evidence of hepatobiliary pathology. High-sensitivity troponin is negative, no evidence of myocardial ischemia Synthesis of the patient's history, physical exam, labs images suggest evidence of a traumatic subdural hematoma complicated by Coumadin. Patient was treated with Kcentra and vitamin K to reverse activity of Coumadin. Head of bed was kept at 30 degrees. He was started initially on labetalol and then nicardipine drip to control his blood pressure with systolic goal of less than 140. He is transferred to a local trauma center for further trauma surgery and neurosurgerycare. Case discussed with Dr. Mayen the patient in transfer to [facility]. The patient and/or family, caregivers express understanding. The patient and/orfamily, caregivers agrees with the plan. Shared decision making: I will have a discussion with the patient and or visitors regarding risk/benefits of further testing or admission. They will be made aware of of the risk/benefits inherent in this decision they will be given the opportunity to voice understanding. Total critical care time today provided was at least 60 minutes. This excludes separately billable procedures. Critical care time (if documented) is secondary to the patient having high probability of clinically significant/life threatening deterioration in the patient's condition which required my urgent intervention. Impression: 1. Acute traumatic subdural hematoma 2. Presence of anticoagulation 3. Thrombocytopenia 4. Hyperglycemia Dispo: Transfer to [facility] History & Record Review Discussion w/independent historian: EMS personnel and Family Lab Data Attestation: I reviewed the patient's lab results. Labs: Laboratory Results - last 24 hr 03/17/23 16:59 WBC 11.1 H RBC 5.03 Hgb 15.7 Hct 48.4 MCV 96.2 H MCH 31.2 MCHC 32.4 RDW Std Deviation 52.8 H RDW Coeff of Anderson 14.8 H Plt Count 143 L MPV 11.9 Immature Gran % (Auto) 0.500 Neut % (Auto) 84.7 H Lymph % (Auto) 6.9 L Saunders % (Auto) 7.7 Eos % (Auto) 0.0 Baso % (Auto) 0.2 Absolute Neuts (auto) 9.4 H Absolute Lymphs (auto) 0.76 L Nucleated RBC % 0 PT 21.2 H INR 1.8 Sodium 137 Potassium 3.7 Chloride 101 Carbon Dioxide 29.0 Anion Gap 7 BUN 18 Creatinine 1.34 H Estim Creat Clear Calc 45.27 Est GFR (MDRD) Af Amer 66 Est GFR (MDRD) Non-Af 54 L BUN/Creatinine Ratio 13.4 Glucose 236 H Calcium 9.7 Total Bilirubin 0.90 AST 22 ALT 27 Alkaline Phosphatase 138 H Troponin I High Sens 42 Total Protein 7.3 Albumin 3.8 Globulin 3.5 Albumin/Globulin Ratio 1.1 Ethyl Alcohol < 3.0 Radiography Chest X-Ray - ED: Read by ED Physician Diagnostic Testing: Clinical Impression(s) from Imaging Studies Brain CT 03/17/23 16:51 IMPRESSION: Acute subdural hemorrhage along the left temporal and frontoparietal lobe extending into the left tentorium and involving the falx as described above. Minimal cortical effacement along the left temporal and frontoparietal lobe suggestive of mild edema. No midline shift. Electronically Signed: Noreen Mckay MD at 17:26 EST Reading Location ID and State: [id number] / [place] , Service support , ADDENDUM: 03/17/23 5538 IMPRESSION: Acute subdural hemorrhage along the left temporal and frontoparietal lobe extending into the left tentorium and involving the falx as described above. Minimal cortical effacement along the left temporal and frontoparietal lobe suggestive of mild edema. No midline shift. N.B. : The above Results were Read Back by Noreen Mckay MD to Brendon Hope DO, and understanding confirmed on 03/17/2023 17:33:14 (ET). Electronically Signed: Noreen Mckay MD at 17:26 EST , Cervical Spine CT 03/17/23 16:51 IMPRESSION: Multilevel degenerative disease as described with no acute fracture or subluxation. Electronically Signed: Noreen Mckay MD at 17:30 EST , Chest X-Ray 03/17/23 16:51 IMPRESSION: Mild bilateral multilobar multifocal atelectasis, otherwise no acute cardiopulmonary disease. Electronically Signed: Noreen cMkay MD at 17:21 EST Reading Location ID and State: [id number] / [place] , Service support , Wrist X-Ray 03/17/23 16:51 IMPRESSION: Fracture involving the first metacarpal base. Underlying mild degenerative disease with osteopenia. Electronically Signed: Noreen Mckay MD at 17:22 EST , Discharge Plan Triage Chief Complaint: Confusion ED Provider: Brendon Hope Dx/Rx/DC Orders Primary Care Provider: GRACE FELICIANO Referrals: [facility] Doctor,Out of [Non-Staff] - Disposition Disposition: Acute Care Hospital Discharge Location: [facility] What to do if you have Problems For any increased pain, shortness of breath, bleeding, nausea or vomiting, chestpain, or any unexpected problems, contact your Primary Care Provider. Call [facility] ([phone]) or report to the closest Emergency Room. Call 911 if necessary. 03/17/232030 <Electronically signed by Brendon Hope DO> Cosigner Signature (if applicable): CC: GRACE GARCIA ~ Signed [facility] Work Phone: [phone] [phone] History of Present illness Narrative* Ingrid Dennis LPN - 11/01/2022 11:00 AM EDT Procedure explained to patient. Patient verbalizes understanding.Witnessed patient signed consent for procedure.Post procedure discharge instructions discussed and given to patient., Patient, procedure and site verified , Patient given Ciprofloxacin 500 mg po times 1 dose per standing order per physician. Lot [id number] Exp 05/19 , Prep Betadine , 11 ml lidocaine Glydojet inserted into urethra, 11 ml lidocaine Glydojet inserted into urethra, Lot: [id number], EXP: 11/16, NDC . , 1000ml Bag Sterile Saline LOT [id number] , EXP 11/15 , Fire Hazard: _low__, Scope: Olympus Flexible CystoUrethroscope # __[id number]__ assigned to this procedure Time Out:3 , Start:3 , Stop:1124 . * Neno Domínguez MD - 11/01/2022 11:00 AM EDTAssociated Order(s): CYSTOSCOPY Post-Procedure Diagnose(s): Personal history of malignant neoplasm of bladder CYSTOSCOPY Date/Time: 11/01/2022 11:00 AM Performed by: Neno Domínguez MD Authorized by: Neno Domínguez MD The attending physician was present for the entire procedure. Pre-Procedure: Indications: bladder cancer Detailed information of all possible complications and side effects were discussed with the patient, these include but not only; UTI, sepsis, hematuria, incontinence, urethral injury and cardiovascular complications. Informed consent was obtained. Does this procedure require a Coral Protocol? Yes. Coral Protocol is required. The patient was given one dose of antibiotics. Urine was collected for testing. Procedure: Procedure performed: cystoscopy The patient was placed supine with all pressure points well padded. Patient was prepped and draped in the usual sterile fashion with Betadine. 10 mL of lidocaine 2% topical gel was inserted into urethra for local anesthesia. A penile clamp was not applied. The flexible cystoscope was lubricated andplaced into the urethral tract under direct visualization. A 360 survey of the bladder was performed. The cystoscope was reflected and the bladder neck and the ureteral orifices were inspected. The findings are detailed below. The cystoscope was removed following any additional procedures documented below. Findings: The urinary meatus appeared normal. There was not a prominent median lobe. The lateral lobes were not obstructive in appearance. No tumors observed. No bladder fistula present. No foreign bodies observed. No stones found. No trabeculations were found. Both ureteral orifices were normal in size, shape and position with efflux of clearurine. The urethra was inspected. No foreign body(s) present in urethra. No urethral diverticulum observed. No urethral stricture found. Cystoscopy normal Post Procedure: Patient tolerated procedure with no immediate complications EBL: no blood loss Procedure Comments: F/u in 3 months for cysto documented in this encounterSWA[id number] History of Present illness Narrative* Jaime Dickey MD - 10/03/2022 10:20 AM EDT Chief Complaint Patient presents with Right Hip - Injury Patient fell. HPI: Mick Cottrell is a 82 y.o. male who has been sent to [facility] for an evaluation of right hip. He is doing very well she he at a [facility] facility. He is not having any pain. He is ambulating independently. Past Medical History: Diagnosis Date Amaurosis fugax of right eye 05/23/2010 Aortic stenosis Benign prostatic hyperplasia Bladder cancer Surgery x 2; BCG, recurrence 2011 Carpal tunnel syndrome Chronic sinusitis Colon polyp Constipation COPD (chronic obstructive pulmonary disease) Degenerative arthritis of cervical spine Dependent edema Depression with anxiety Diabetes mellitus, type 2 Dysphagia Intra-op EGD 08/17 negative Empyema 11/28/2011 pneumonia GERD (gastroesophageal reflux disease) Hearing loss sensory, bilateral Heartburn HLD (hyperlipidemia) HTN (hypertension) Hyperplasia of prostate with lower urinary tract symptoms (LUTS) Migraine with aura 03/25/2010 Neuropathy, peripheral numb and tingling on sole of left foot SANJU on CPAP biPAP Osteoarthritis Stroke 03/25/2011 TIA (transient ischemic attack) 05/2008, possible 06/02 has follow up with neurologist next month Vitamin D deficiency Past Surgical History: Procedure Laterality Date CYSTOURETHROSCOPY W/ FULGURATION/RESECTION LESION BLADDER (TURB) N/A 04/26/2022 Laterality: N/A; Surgeon: Neno Domínguez MD; Location: [facility] CYSTOURETHROSCOPY W/ FULGURATION/RESECTION LESION BLADDER (TURB) [facility] N/A 08/13/2018 Laterality: N/A; Surgeon: Benigno Cardoso MD; Location: [facility] OR UROGRAPHY/PYELOGRAPHY RETROGRADE Bilateral 08/13/2018 Laterality: Bilateral; Surgeon: Benigno Cardoso MD; Location: [facility] OR CYSTOURETHROSCOPY W/ FULGURATION/RESECTION LESION BLADDER (TURB) N/A 08/02/2014 Laterality: N/A; Surgeon: Benigno Cardoso MD; Location: [facility] OR UROGRAPHY/PYELOGRAPHY RETROGRADE Bilateral 08/02/2014 Laterality: Bilateral; Surgeon: Benigno Cardoso MD; Location: [facility] OR RELEASE CARPAL TUNNEL Left 2013Feb 12 RELEASE CARPAL TUNNEL Right 2013Jan 29 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 2013Oct 06 Swapbox [id number], serial [id number], Leon Landers MD [phone] ECHOCARDIOGRAM (OUTSIDE) 2013May 05 normal RA, normal RV and RV systolic function, no PFO by color Doppler or agitated saline, mild LAE, normal LV and LV systolic function, LVEF 63%, mild LV diastolic dysfunction, normally functioning bioprosthetic AV, no pulmonary HTN LUNG SURGERY Right 2011Dec 02 thoracotomy, pneumonia CYSTOSCOPY 2011 bladder cancer INTRACAPSULAR CATARACT EXTRACTION Right 2011 REMV CATARACT EXTRACAP,INSERT LENS Left 2010 AVR W/ TISSUE VALVE 2010August 17 model # [id number], 23-mm Jay-Viramontes CYSTOSCOPY 2009 CYSTOSCOPY 2007 CHOLECYSTECTOMY LAPAROSCOPIC SEPTOPLASTY ESS UVULOPALATOPHARYNGOPLASTY (UVPP) TONSILECTOMY Family History Problem Relation Age of Onset Heart Disease - Other Mother Hypertension Mother Breast Cancer Mother Hypertension Father Diabetes Father Anesth Problems Neg Hx Bleeding or Clotting Problems Neg Hx Social History Socioeconomic History Marital status: Number of children: 2 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 Smoking status: Former Packs/day: 1.50 Years: 45.00 Total pack years: 67.50 Types: Cigarettes Quit date: 07/05/1996 Years since quittin.2 Smokeless tobacco: Former Types: Chew Quit date: 07/05/1996 Vaping Use Vaping Use: Never used Substance and Sexual Activity Alcohol use: No Comment: On 06/17/2014 reports less and 1 in prior year, never heavy or regular Drug use: No Other Topics Concern Blood Transfusions No Comment: On 06/17/2014 accepts Caffeine Concern No Comment: 1/2 pot on work days 06/17/2014 Occupational Exposure Yes Comment: dust, fumes, petroleum chemicals 06/17/2014 Weight Concern No Comment: stable 06/17/2014 Exercise No Comment: active 06/17/2014 Current Outpatient Medications Medication Sig docusate 100 MG Cap take 1 Cap by mouth every 12 hours. aspirin 81 MG Tab Take 1 tablet by mouth daily. Atorvastatin 40 MG tablet Take 1 tablet by mouth at bedtime. CHOLECALCIFEROL PO Take 1 tablet by mouth daily. finasteride 5 MG Tab Take 1 tablet by mouth daily. FLUoxetine 10 MG capsule Take 2 capsules by mouth daily. (Patient not taking: Reported on 09/13/2022) hydroCODone-acetaminophen 5-325 MG tablet Take 1 tablet by mouth every 8 hours as needed for Moderate Pain for up to 1 day. Losartan 25 MG tablet Take 1 tablet by mouth daily. MAGNESIUM PO Take 1 tablet by mouth 2 times daily. metformin 500 MG Tab Take 1 tablet by mouth daily every morning. metFORMIN 500 MG tablet Take 2 tablets by mouth every evening. montelukast 10 MG Tab Take 1 tablet by mouth every evening. Multiple Vitamins-Minerals (EYE HEALTH + LUTEIN PO) Take 1 tablet by mouth daily. naproxen 375 MG Tab take 1 tablet by mouth as needed for Headaches. (Patient not taking: Reported on 09/13/2022) ondansetron 4 MG Tab Dispersible tablet Take 1 tablet by mouth every 4 hours as needed for Nausea. (Patient not taking: Reported on 09/13/2022) oxybutynin 5 MG Tab Take 1 tablet by mouth 3 times daily as needed for Bladder Spasm. (Patient not taking: Reported on 09/13/2022) oxyCODONE-acetaminophen 5-325 MG Tab take 1-2 Tabs by mouth every 4 hours as needed. Indications: Moderate to Moderately Severe Pain (Patient not taking: Reported on 09/13/2022) polyethylene glycol Pack take 1 Packet by mouth daily as needed. (Patient not taking: Reported on 09/13/2022) topiramate (TOPAMAX) 50 MG Tab take 1 tablet by mouth at bedtime. (Patient not taking: Reported on 09/13/2022) traMADol 50 MG Tab take 1 tablet by mouth every 4 hours as needed. (Patient not taking: Reported on09/13/2022) warfarin 4 MG tablet Take by mouth As directed. *Take 2 mg (1/2 tablet) by mouth every Saturday and 4mg (1 tablet) by mouth all other days Allergies Allergen Reactions Other Hallucination Any high doses of pain pills (i.e oxycodone), and muscle relaxer Penicillins Swelling Full body edema, received 4 injections of adrenalin-severe reaction in the late 1960s Morphine Hallucination Review of Systems: Review of systems: No fevers, chills, night sweats or fatigue No blurred vision or double vision No frequent nosebleeds, chronic sinus infections No chest pain or shortness of breath no palpitations No lower extremity swelling No cough or wheezing No difficulty with urination no increased frequency of urination See HPI for pertinent positives. Physical Exam: Blood pressure (!) 140/92, height 1.829 m (6'). Alert and oriented X3. No apparent distress. Normal affect. Examination of the right hip reveals range of motion without discomfort there is no tenderness about the hip or pelvis. He is able to put full weight without discomfort. His calf is soft nontender negative Homans he is neurovascularly intact distally. Examination of the opposite side for comparison reveals full range of motion, no tenderness or instability, normal strength, skin is intact patient is neurovascularly intact. Imaging: X-rays were obtained of the right hip and pelvis which demonstrate good healing of her rami fracture. Procedures A/P 1. Pain of right hip 2. Closed fracture of multiple pubic rami, right, with routine healing, subsequent encounter - We discussed imaging, diagnosis and treatment options. - patient is doing well conservative treatment of right superior pelvic rami fracture. He can continue weight-bearing as tolerated. He will continue physical therapy to [facility] facility. I did explain if he has residual symptoms in 6 weeks I would like to see him back in the office if he isdoing well I will see him on an as-needed basis. - Call the office if symptoms worsen. - XRays upon return: None I have reviewed each of the pertinent components of this chart and any other pertinent medical component(s) including but not limited to pertinent application of the chief complaint, history of present illness, current medication, medical history, allergies, family history, medical history, surgical history, social history, review of systems, vital signs, and any other portion of the pertinent patient medical record directly or indirectly involved with this patient care that is pertinent based on my medical decision process. Jaime Dickey MD This note was written in part with Dragon Dictation. The note was reviewed by the author prior to publication, but typos and/or inaccurately populated phrases may still appear. If a clinically significant typo and/or inaccurately dictated phrase is noted, please notify the author. documented in this encounterSWAIN COMMUNITY [id number] Nurse Note* Nursing Notes - Geovanna De RN - 09/14/2022 3:21 PM EDT Report given to FIDELINA Rodarte at [facility] in [place]. Patient to be transported this afternoonaround 15:45. Patient's Son Checo is aware of transfer. S[facility] COMMUNITY [id number] Miscellaneous Notes* Nursing Notes - Geovanna De RN - 09/14/2022 3:21 PM EDT Report given to FIDELINA Rodarte at [facility] in [place]. Patient to be transported this afternoonaround 15:45. Patient's Son Checo is aware of transfer. * Plan of Care - Pily Narayanan RN - 09/14/2022 12:49 PM EDT HENS completed for [facility] Per Jessica Bacon we have insurance auth, he can transfer today, no covid test needed. Report number [phone] * Plan of Care - Pily Narayanan RN - 09/14/2022 12:19 PM EDT [facility] [place] has accepted the patient, I spoke with the patient over this and he said he has been there before and would like to go back. Talked with Jessica Bacon and she is starting insurance auth at this time. * Plan of Care - Pily Narayanan RN - 09/14/2022 11:49 AM EDT Talked with the patient at the bedside over therapy recommendation. He stated he would agree to in patient therapy but he wanted to remain in [place]. He told me he did not have a preference. Referral was sent to the 4 SNF in [place] at this time. * Plan of Care - Ronda Langley PT - 09/14/2022 11:30 AM EDT Problem: Ortho - Goals Goal: Ortho - Supine to Sit Description: Pt will perform supine to/from sit transfer with standby assist for improved ability to safely discharge to next level of care. Outcome: Ongoing Goal: Ortho - Sit to Stand Description: Pt will perform sit to/from stand transfer with standby assist with wheeled walker forimproved ability to safely discharge to next level of care. Outcome: Ongoing Goal: Ortho - Ambulate 100 ft Description: Pt will ambulate 100 feet with stand by assist with wheeled walker to promote home navigation. Outcome: Ongoing Goal: Ortho - Independent with HEP Description: Pt will verbalize understanding of home exercise program and appropriate precautions with no greater than minimal cueing for ability to safely discharge to next level of care. Outcome: Ongoing Problem: PT - Balance/Coordination/Neuro Re-Education Goal: Standing Dynamic/Static Balance Description: Pt will perform standing balance tasks for 5 minutes with standby assistance with wheeled walker in order to improve functional mobility and safety with standing tasks. Outcome: Ongoing * Plan of Care - Beverly Chu OT - 09/14/2022 10:46 AM EDT Problem: OT - Dressing Goal: Lower Body Dressing Description: Pt will complete LE dressing tasks with minimal assistance for improved ability to complete self-care activities. Outcome: Ongoing Problem: OT - ADLs Goal: Bathing Description: Pt will perform full body bathing routine with contact guard assistance while seated for improved ability to complete self-care activities. Outcome: Ongoing Problem: OT - Endurance Goal: Endurance Functional Task Standing Description: Pt will engage in standing functional task for 5-7 minutes with contact guard assistance to improve activity tolerance necessary for safe ADL completion at recommended discharge destination. Outcome: Ongoing Problem: OT - Transfers Goal: Transfers Toilet/Bedside Commode Description: Pt will transfer to/from toilet/BSC with contact guard assistance for improved abilityto safely complete ADLs. Outcome: Ongoing Problem: OT - Other Goal: Precaution Adherence Description: Pt will demonstrate 100% adherence to RLE touch-down weightbearing precautions during all ADLs and transfers to promote safety during daily routine. Outcome: Ongoing * Plan of Care - Pily Narayanan RN - 09/13/2022 11:[address] Boyce patient may need placement for therapy. Ortho consult is pending at this time. * Nursing Notes - ORIANA Heard - 09/13/2022 11:01 AM EDT Patient refused to use bedpan for bowel movement would only go on the bedside. Myself and the charge nurse helped assisted him in the transfer. Patients nurse was notified. * Nursing Notes - Meghan Marie RN - 09/13/2022 9:19 AM EDT Upon discussing patient morning medications, patient informed me he has been taking his own medications that were in his bedside table. Patient is unsure what all he has taken this morning as they are in a reloaded box & patient states he doesn't know his home medication. Patient states he has a list. List found with patient belonging, patient states unsure if it's updated. Medications lockedin cabinet, copy made of home med list and call to [employer] to verify patients medication. documented in this encounterSWAIN COMMUNITY [id number] History of Present illness Narrative* Pily Narayanan RN - 09/14/2022 1:30 PM EDT 09/14/22 1329 Referral Information Arrived From home or self-care Final Discharge Planning Discharge Disposition [facility] Facility CM/SW AVS Portion Completed Yes Community Agency Name(s) For Handoff [facility] Phone For Handoff [phone] Plan Plan Plan to transfer to SNF for rehab prior to returning home. No COVID test needed. Please call report to the number listed above Patient/Family In Agreement With Plan yes HENS completed DC summary sent via secure email * Pily Narayanan RN - 09/14/2022 11:44 AM EDT 09/14/22 1144 Patient Choice for Post-Acute Providers Resumption of care? No Establishing care? Yes Level of care for choice SNF Preferred geographic region Discussed and honored Source of list Medicare.gov List was provided to Patient Method of delivery In Person Is the provider part of a joint venture or have a financial relationship with discharging hospital?No Patient had no preference he just wants to stay in [place]. * Ronda Langley PT - 09/14/2022 11:31 AM EDT [facility] Therapy Evaluation Provider: Yvon Boyce MD Medical Diagnosis: Right superior public ramus and right acetabulum fracture Hospital Admission: 09/12/2022 Date of Service 09/14/2022 SENIOR ACCOUNTANT ANALYST ATTENTION: Discharge Destination Recommendation: (Swing bed) Supporting Factors (would benefit from skilled therapy services): Impaired functional status, Decreased strength, Impaired balance, Fall risk Anticipated Equipment Needs at Discharge (PT Eval): to be determined Patient Active Problem List Diagnosis HTN (hypertension) Diabetes mellitus, type 2 HLD (hyperlipidemia) Bladder cancer Heartburn SANJU on CPAP COPD (chronic obstructive pulmonary disease) S/P AVR (aortic valve replacement) SVT (supraventricular tachycardia) History of stroke Hearing loss sensory, bilateral Neuropathy, peripheral Migraine with aura Constipation Vitamin D deficiency Dependent edema Chronic sinusitis Depression with anxiety Osteoarthritis Hyperplasia of prostate with lower urinary tract symptoms (LUTS) Erectile dysfunction History of bladder cancer Cerebrovascular accident (CVA) Equivalent angina Fall Past Medical History: Diagnosis Date Amaurosis fugax of right eye 05/23/2010 Aortic stenosis Benign prostatic hyperplasia Bladder cancer Surgery x 2; BCG, recurrence 2011 Carpal tunnel syndrome Chronic sinusitis Colon polyp Constipation COPD (chronic obstructive pulmonary disease) Degenerative arthritis of cervical spine Dependent edema Depression with anxiety Diabetes mellitus, type 2 Dysphagia Intra-op EGD 08/17 negative Empyema 11/28/2011 pneumonia GERD (gastroesophageal reflux disease) Hearing loss sensory, bilateral Heartburn HLD (hyperlipidemia) HTN (hypertension) Hyperplasia of prostate with lower urinary tract symptoms (LUTS) Migraine with aura 03/25/2010 Neuropathy, peripheral numb and tingling on sole of left foot SANJU on CPAP biPAP Osteoarthritis Stroke 03/25/2011 TIA (transient ischemic attack) 05/2008, possible 06/02 has follow up with neurologist next month Vitamin D deficiency Past Surgical History: Procedure Laterality Date CYSTOURETHROSCOPY W/ FULGURATION/RESECTION LESION BLADDER (TURB) N/A 04/26/2022 Laterality: N/A; Surgeon: Neno Domínguez MD; Location: [facility] CYSTOURETHROSCOPY W/ FULGURATION/RESECTION LESION BLADDER (TURB) CYSVIEW N/A 08/13/2018 Laterality: N/A; Surgeon: Benigno Cardoso MD; [facility] UROGRAPHY/PYELOGRAPHY RETROGRADE Bilateral 08/13/2018 Laterality: Bilateral; Surgeon: Benigno Cardoso MD; Location[facility] MA[facility] OR CYSTOURETHROSCOPY W/ FULGURATION/RESECTION LESION BLADDER (TURB) N/A 08/02/2014 Laterality: N/A; Surgeon: Benigno Cardoso MD; Location: [facility] MAIN OR UROGRAPHY/PYELOGRAPHY RETROGRADE Bilateral 08/02/2014 Laterality: Bilateral; Surgeon: Benigno Cardoso MD; Location: [facility] MAIN OR RELEASE CARPAL TUNNEL Left 2013Feb 12 RELEASE CARPAL TUNNEL Right 2013Jan 29 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 2013Oct 06 Medtronic LNQ11, serial [id number], Leon Landers MD [phone] ECHOCARDIOGRAM (OUTSIDE) 2013May 05 normal RA, normal RV and RV systolic function, no PFO by color Doppler or agitated saline, mild LAE, normal LV and LV systolic function, LVEF 63%, mild LV diastolic dysfunction, normally functioning bioprosthetic AV, no pulmonary HTN LUNG SURGERY Right 2011Dec 02 thoracotomy, pneumonia CYSTOSCOPY 2011 bladder cancer INTRACAPSULAR CATARACT EXTRACTION Right 2011 REMV CATARACT EXTRACAP,INSERT LENS Left 2010 AVR W/ TISSUE VALVE 2010August 17 model # [id number], 23-mm Jay-Viramontes CYSTOSCOPY 2009 CYSTOSCOPY 2007 CHOLECYSTECTOMY LAPAROSCOPIC SEPTOPLASTY ESS UVULOPALATOPHARYNGOPLASTY (UVPP) TONSILECTOMY EVALUATION DETAILS: Falls in the past 6 months: 1-2 times 09/14/22 0851 Time In/Out Time In 0851 Time Out 0909 Total Visit Time 18 minutes PT Therapy Completed Yes Initial Evaluation/Screen Completed? yes PT Evaluation and Treatment Time PT Evaluation (Moderate) Time Entry 18 General Information Patient Safety Communication Prior to Visit Nursing Existing Precautions/Restrictions fall;weight bearing Right Lower Extremity touch down weight bearing Oxygen Therapy O2 Device room air Home Setting Residence House Lives With alone First floor setup bedroom;walk-in shower Number of stairs to enter home 3 Stair Railings at Home entry - present on both sides Mobility Equipment Available straight cane;quad cane;2 wheeled walker ADL Equipment Available shower chair Home Environment Details Pt has basement but does not utilize Previous Level of Function Prior level ADL Overview Independent with all ADLs Bed Mobility/Transfers independent Ambulation Skills independent Assistive Device none used Level of Ambulation community Prior Level of Function Details Pt is independent with IADLs and driving. Pt with limited transportation from neighbor. PRIOR LEVEL AM-PAC Basic Mobility Inpatient Short Form Turning over in bed 4 - No Assistance Sitting/standing from chair 4 - No Assistance Moving from lying on back to sitting 4 - No Assistance Moving to and from bed to chair 4 - No Assistance Walk in hospital room 4 - No Assistance Climbing 3-5 steps with a railing 4 - No Assistance [facility] Raw Score 24 [facility] L[facility]EL [facility] Mobility Functional Limitation/Modifier 0.00% Prior Functional Impairment in Basic Mobility General Pain Documentation (Adult, OB, Peds) Presence of Pain denies pain/discomfort Cognition Overall Cognitive Status WFL Vision Screen Currently wearing corrective lenses Yes Speech Speech no gross deficits noted Hearing Hearing no gross deficits noted RLE Assessment RLE Assessment AROM Impaired;Strength Impaired Right LE Assessment Details 4-/5 LLE Assessment LLE Assessment AROM WFL;Strength WFL Sensation Overall Sensation Intact Sitting Balance Static Sitting-Level of Assistance Independent Dynamic Sitting-Level of Assistance Independent Standing Balance Dynamic Standing-Level of Assistance Minimum assistance Standing-Balance Support 2 wheeled walker;Gait belt Supine to Sit Mobility [place] Level: Supine->Sit minimum assist (75% patient effort) Bed Features/Set-up: Supine->Sit Head of bed elevated;Use of bed rail Skilled Rationale Verbal cues;Hand placement;Cues for increased safety;Technique of activity Sit to Stand Transfer [place] Level: Sit->Stand minimum assist (75% patient effort) Assistive Device: Sit->Stand gait belt;2 wheeled walker Skilled Rationale Verbal cues;Hand placement;Cues for increased safety;Maintain precautions;Technique of activity Stand to Sit Transfer [place] Level: Stand->Sit minimum assist (75% patient effort) Assistive Device: Stand->Sit gait belt;2 wheeled walker Skilled Rationale Hand placement;Verbal cues;Cues for increased safety;Technique of activity;Maintain precautions Bed-Chair Transfer [place] Level: Bed<->Chair minimum assist (75% patient effort) Assistive Device: Bed<->Chair gait belt;2 wheeled walker Skilled Rationale Hand placement;Verbal cues;Cues for increased safety;Technique of activity;Maintain precautions Gait Assessment [place] Level: Gait minimum assist (75% patient effort) Assistive Device: Gait gait belt;2 wheeled walker Ambulation Distance (Feet) 5 Gait Skilled Rationale verbal;improve foot placement;increase foot clearance;proximity of assistivedevice Skilled Intervention/Details - Gait Pt took 5 steps with education on TDWB to RLE with FWW with slight instability but no LOB noted. [facility] Basic Mobility Inpatient Short Form Turning over in bed 4 - No Assistance Sitting/standing from chair 3 - A Little Assistance Moving from lying on back to sitting 3 - A Little Assistance Moving to and from bed to chair 3 - A Little Assistance Walk in hospital room 3 - A Little Assistance Climbing 3-5 steps with a railing 3 - A Little Assistance CURRENT AM-PAC Mobility Raw Score 19 CURRENT AM-PAC Mobility Functional Limitation/Modifier 41.77% Currently Impaired in Basic Mobility - CK Clinical Impression Continue care plan yes Co-evaluation/co-treatment performed? Yes, simultaneous billable skilled care Criteria for Skilled Therapeutic Interventions Met (PT Eval) yes, treatment indicated Impairments Found (PT Eval) Strength;Balance;Transfers;Gait/Locomotion Global Functional Limitations Difficulty with bed mobility;Difficulty with transfers;Decreased functional mobility;Limited standing tolerance;Increased fall risk Barriers to Treatment (Co-Morbidities and/or Personal Factors) weakness and limited activity tolerance Rehab Potential (PT Eval) good Therapy Frequency 6 times a week Planned Therapy Interventions balance training;bed mobility training;gait training;neuromuscular re-education;strengthening;transfer training Discharge Destination Recommendation (Swing bed) Supporting Factors (would benefit from skilled therapy services) Impaired functional status;Decreased strength;Impaired balance;Fall risk Anticipated Equipment Needs at Discharge (PT Eval) to be determined Eval Complexity Assessment History Components Moderate (1-2 personal factors and/or comorbidities) Examination of Body System(s) Components Moderate (Addressing a total of 3 or more elements) Clinical Presentation Evolving - changing/inconsistent clinical characteristics (Moderate) Clinical Decision Making (complexity) Moderate PT Acute Triage PT Triage Priority 1 PT Triage Reason Protocol;Discharge progression Education completed on the role of PT, general POC, TDWB to RLE and discharge recommendations. ASSESSMENT: Mick Cottrell is a 81 y.o. male presenting to acute care physical therapy today with right superior pubic ramus and right acetabulum fracture planned for non- operative management. Prior to this hospitalization, pt lives alone in a single story home with 3 steps with rail to enter. Pt does not use any AD for functional mobility. During today's PT evaluation, pt was cooperative. Pt required Min A for getting out of bed and transfer from edge of bed to chair taking 5 steps with use of FWW with education on TDWB to RLE with FWW with slight instability but no LOB noted. Pt will continue to see PTduring hospital stay and is recommended swing bed for further therapy at discharge. Identified problems include Strength, Balance, Transfers, Gait/Locomotion affecting Difficulty withbed mobility, Difficulty with transfers, Decreased functional mobility, Limited standing tolerance,Increased fall risk. Skilled physical therapy will provide interventions of balance training, bed mobility training, gait training, neuromuscular re-education, strengthening, transfer training in order to reach established goals. Pt has rehab potential of good to reach goals with potential barriers of weakness and limited activity tolerance. Patient goal at discharge is to be able to walk again. Acute PT Goals Plan of Care by Ronda Langley PT at 09/14/2022 11:30 AM Version 1 of 1 Problem: Ortho - Goals Goal: Ortho - Supine to Sit Description: Pt will perform supine to/from sit transfer with standby assist for improved ability to safely discharge to next level of care. Outcome: Ongoing Goal: Ortho - Sit to Stand Description: Pt will perform sit to/from stand transfer with standby assist with wheeled walker forimproved ability to safely discharge to next level of care. Outcome: Ongoing Goal: Ortho - Ambulate 100 ft Description: Pt will ambulate 100 feet with stand by assist with wheeled walker to promote home navigation. Outcome: Ongoing Goal: Ortho - Independent with HEP Description: Pt will verbalize understanding of home exercise program and appropriate precautions with no greater than minimal cueing for ability to safely discharge to next level of care. Outcome: Ongoing Problem: PT - Balance/Coordination/Neuro Re-Education Goal: Standing Dynamic/Static Balance Description: Pt will perform standing balance tasks for 5 minutes with standby assistance with wheeled walker in order to improve functional mobility and safety with standing tasks. Outcome: Ongoing Additional Details: Patient location at end of session: chair and RN aware Alarms on at end of session: chair alarm Needs in reach. PT Evaluation and Treatment Time PT Evaluation (Moderate) Time Entry: 18 Charges: mod complexity eval Ronda Langley PT * Beverly Chu OT - 09/14/2022 10:46 AM EDT [facility] Acute Occupational Therapy Evaluation Provider: Yvon Boyce MD Medical Diagnosis: Right superior pubic ramus and right acetabulum fracture Hospital Admission: 09/12/2022 Date of Service: 09/14/2022 Patient Active Problem List Diagnosis HTN (hypertension) Diabetes mellitus, type 2 HLD (hyperlipidemia) Bladder cancer Heartburn SANJU on CPAP COPD (chronic obstructive pulmonary disease) S/P AVR (aortic valve replacement) SVT (supraventricular tachycardia) History of stroke Hearing loss sensory, bilateral Neuropathy, peripheral Migraine with aura Constipation Vitamin D deficiency Dependent edema Chronic sinusitis Depression with anxiety Osteoarthritis Hyperplasia of prostate with lower urinary tract symptoms (LUTS) Erectile dysfunction History of bladder cancer Cerebrovascular accident (CVA) Equivalent angina 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 ATTENTION: Discharge Destination Recommendation: (Swingbed therapy) Supporting Factors (would benefit from skilled therapy services): Impaired functional status, Impaired balance, Decreased endurance, Fall risk, Assistance needed with functional mobility, Impaired self-care abilities Anticipated Equipment Needs at Discharge (OT Eval): to be determined Past Medical History: Diagnosis Date Amaurosis fugax of right eye 05/23/2010 Aortic stenosis Benign prostatic hyperplasia Bladder cancer Surgery x 2; BCG, recurrence 2011 Carpal tunnel syndrome Chronic sinusitis Colon polyp Constipation COPD (chronic obstructive pulmonary disease) Degenerative arthritis of cervical spine Dependent edema Depression with anxiety Diabetes mellitus, type 2 Dysphagia Intra-op EGD 08/17 negative Empyema 11/28/2011 pneumonia GERD (gastroesophageal reflux disease) Hearing loss sensory, bilateral Heartburn HLD (hyperlipidemia) HTN (hypertension) Hyperplasia of prostate with lower urinary tract symptoms (LUTS) Migraine with aura 03/25/2010 Neuropathy, peripheral numb and tingling on sole of left foot SANJU on CPAP biPAP Osteoarthritis Stroke 03/25/2011 TIA (transient ischemic attack) 05/2008, possible 06/02 has follow up with neurologist next month Vitamin D deficiency Past Surgical History: Procedure Laterality Date CYSTOURETHROSCOPY W/ FULGURATION/RESECTION LESION BLADDER (TURB) N/A 04/26/2022 Laterality: N/A; Surgeon: Neno Domínguez MD; Location: [facility] OR CYSTOURETHROSCOPY W/ FULGURATION/RESECTION LESION BLADDER (TURB) CYSVIEW N/A 08/13/2018 Laterality: N/A; Surgeon: Benigno Cardoso MD; [facility]RO[facility]HY/PYELOGRAPHY RETROGRADE Bilateral 08/13/2018 Laterality: Bilateral; Surgeon: Benigno Cardoso MD; Location[facility] OR CYSTOURETHROSCOPY W/ FULGURATION/RESECTION LESION BLADDER (TURB) N/A 08/02/2014 Laterality: N/A; Surgeon: Benigno Cardoso MD; Location: [facility] MAIN OR UROGRAPHY/PYELOGRAPHY RETROGRADE Bilateral 08/02/2014 Laterality: Bilateral; Surgeon: Benigno Cardoso MD; Location: [facility] OR RELEASE CARPAL TUNNEL Left 2013Feb 12 RELEASE CARPAL TUNNEL Right 2013Jan 29 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 2013Oct 06 Medtronic LNQ11, serial [id number], Leon Landers MD [phone] ECHOCARDIOGRAM (OUTSIDE) 2013May 05 normal RA, normal RV and RV systolic function, no PFO by color Doppler or agitated saline, mild LAE, normal LV and LV systolic function, LVEF 63%, mild LV diastolic dysfunction, normally functioning bioprosthetic AV, no pulmonary HTN LUNG SURGERY Right 2011Dec 02 thoracotomy, pneumonia CYSTOSCOPY 2011 bladder cancer INTRACAPSULAR CATARACT EXTRACTION Right 2011 REMV CATARACT EXTRACAP,INSERT LENS Left 2010 AVR W/ TISSUE VALVE 2010August 17 model # [id number], 23-mm Jay-Viramontes CYSTOSCOPY 2009 CYSTOSCOPY 2007 CHOLECYSTECTOMY LAPAROSCOPIC SEPTOPLASTY ESS UVULOPALATOPHARYNGOPLASTY (UVPP) TONSILECTOMY EVALUATION DETAILS: History of falls in the past 6 months: 1-2 times 09/14/22 0850 Time In/Out Time In 0850 Time Out 0908 Total Visit Time 18 minutes OT Therapy Completed Yes OT Therapies Still to Complete 4 Initial Evaluation/Screen Completed? yes OT Evaluation and Treatment Time OT Evaluation (Moderate) Time Entry 18 General Information Patient Safety Communication Prior to Visit Nursing OT Existing Precautions/Restrictions fall;weight bearing Right Lower Extremity touch down weight bearing Oxygen Therapy O2 Device room air Home Setting Residence House Lives With alone First floor setup bedroom;walk-in shower Number of stairs to enter home 3 Stair Railings at Home entry - present on both sides Mobility Equipment Available straight cane;quad cane;2 wheeled walker ADL Equipment Available shower chair Home Environment Details Pt has basement but does not utilize Previous Level of Function Prior level ADL Overview Independent with all ADLs Bed Mobility/Transfers independent Ambulation Skills independent Assistive Device none used Level of Ambulation community Prior Level of Function Details Pt is independent with IADLs and driving. Pt with limited transportation from neighbor. PRIOR LEVEL AM-PAC Activity Inpatient Short Form Putting on/Taking Off Lower Body Clothing 4 - No Assistance Bathing 4 - No Assistance Toileting 4 - No Assistance Putting on/Taking Off Upper Body Clothing 4 - No Assistance Grooming 4 - No Assistance Eating 4 - No Assistance PRIOR LEVEL AM-[facility] Activity Raw Score 24 PRIOR LEVEL AM-[facility] Activity Functional Limitation/Modifier 0.00% Prior Functional Impairment in Daily Activity General Pain Documentation (Adult, OB, Peds) Presence of Pain denies pain/discomfort Cognition Overall Cognitive Status WFL Vision Screen Currently wearing corrective lenses Yes Speech Speech no gross deficits noted Hearing Hearing no gross deficits noted Sensation Overall Sensation Intact RUE Assessment RUE Assessment WFL LUE Assessment LUE Assessment WFL Hand Client Liaison Strength Hand Client Liaison Strength Interpretation Left above expected range (strong);Right above expected range (strong) Skin Integrity Skin Integrity Description Intact Supine to Sit Mobility [place] Level: Supine->Sit minimum assist (75% patient effort) Physical Assist: Supine->Sit other (see comments) (1 person assist) Bed Features/Set-up: Supine->Sit Head of bed elevated;Use of bed rail Skilled Rationale Verbal cues;Hand placement;Cues for increased safety;Technique of activity Sit to Stand Transfer [place] Level: Sit->Stand minimum assist (75% patient effort) Physical Assist: Sit->Stand other (see comments) (1 person assist) Assistive Device: Sit->Stand gait belt;2 wheeled walker Skilled Rationale Verbal cues;Hand placement;Cues for increased safety;Maintain precautions;Technique of activity Stand to Sit Transfer [place] Level: Stand->Sit minimum assist (75% patient effort) Physical Assist: Stand->Sit other (see comments) (1 person assist) Assistive Device: Stand->Sit gait belt;2 wheeled walker Skilled Rationale Hand placement;Verbal cues;Cues for increased safety;Technique of activity;Maintain precautions Bed-Chair Transfer [place] Level: Bed<->Chair minimum assist (75% patient effort) Physical Assist: Bed<->Chair other (see comments) (1 person assist) Assistive Device: Bed<->Chair gait belt;2 wheeled walker Skilled Rationale Hand placement;Verbal cues;Cues for increased safety;Technique of activity;Maintain precautions Sitting Balance Static Sitting-Level of Assistance Independent Dynamic Sitting-Level of Assistance Independent Standing Balance Static Standing-Level of Assistance Minimum assistance Dynamic Standing-Level of Assistance Minimum assistance Standing-Balance Support 2 wheeled walker;Gait belt CURRENT AM-[facility] Daily Activity Inpatient Short Form Putting on/Taking Off Lower Body Clothing 2 - A Lot of Assistance Bathing 2 - A Lot of Assistance Toileting 3 - A Little Assistance Putting on/Taking Off Upper Body Clothing 4 - No Assistance Grooming 4 - No Assistance Eating 4 - No Assistance CURRENT AM-PAC Activity Raw Score 19 CURRENT AM-PAC Activity Functional Limitation/Modifier 42.80% Currently Impaired in Daily Activity - CK Clinical Impression Continue care plan yes Performance Deficits (Impairments) Found balance;endurance;transfers Global Functional Limitations bathing;toileting;functional mobility;dressing Rehab Potential (OT Eval) good, to achieve stated therapy goals Therapy Frequency 5 times a week Planned Therapy Interventions (OT Eval) ADL retraining;balance training;bed mobility training;functional activity tolerance;transfer training Discharge Destination Recommendation (Swingbed therapy) Supporting Factors (would benefit from skilled therapy services) Impaired functional status;Impaired balance;Decreased endurance;Fall risk;Assistance needed with functional mobility;Impaired self-care abilities Anticipated Equipment Needs at Discharge (OT Eval) to be determined Evaluation Complexity Occupational Profile and Client History Moderate - expanded history Assessment of Occupational Performance Moderate (3-5 performance deficits) Clinical Decision/Performance Deficits Moderate (detailed assessments w/several treatment options) OT Acute Triage OT Triage Priority 2 Education: Education completed on the role of OT, OT POC, and discharge recommendations. ASSESSMENT: OT evaluation as indicated. Mick Cottrell is a 81 y.o. male presenting to acute care occupational therapy today with right superior pubic ramus and right acetabulum fracture planned for non-operative management. Prior to this hospitalization, pt was independent with ADLs and functional mobility. During today's evaluation, pt displaying significant functional decline secondary to maintaining RLE weightbearing status with pt requiring increased assistance for ADLs and Min A x1 for functional mobility using FWW. Pt requiring increased v/c for sequencing and maintaining RLE touch down weightbearing with completion of functional mobility. Pt presenting WFLs for BUE ROM/strength. Identified probl ems include balance, endurance, transfers and affect bathing, toileting, functional mobility, dressing. Skilled occupational therapy is recommended to provide interventions of ADL retraining, balancetraining, bed mobility training, functional activity tolerance, transfer training in order to reachestablished goals. Pt has good rehab potential to achieve stated therapy goals in order for pt to return home and safely care for himself. Recommend swingbed therapy at discharge. Patient goal at discharge is to be able to walk again. Acute OT Goals Plan of Care by Beverly Chu OT at 09/14/2022 10:46 AM Version 1 of 1 Problem: OT - Dressing Goal: Lower Body Dressing Description: Pt will complete LE dressing tasks with minimal assistance for improved ability to complete self-care activities. Outcome: Ongoing Problem: OT - ADLs Goal: Bathing Description: Pt will perform full body bathing routine with contact guard assistance while seated for improved ability to complete self-care activities. Outcome: Ongoing Problem: OT - Endurance Goal: Endurance Functional Task Standing Description: Pt will engage in standing functional task for 5-7 minutes with contact guard assistance to improve activity tolerance necessary for safe ADL completion at recommended discharge destination. Outcome: Ongoing Problem: OT - Transfers Goal: Transfers Toilet/Bedside Commode Description: Pt will transfer to/from toilet/BSC with contact guard assistance for improved abilityto safely complete ADLs. Outcome: Ongoing Problem: OT - Other Goal: Precaution Adherence Description: Pt will demonstrate 100% adherence to RLE touch-down weightbearing precautions during all ADLs and transfers to promote safety during daily routine. Outcome: Ongoing Patient location at end of session: chair Alarms on at end of session: chair alarm Additional Details: Primary RN notified. Needs in reach. OT Evaluation and Treatment Time OT Evaluation (Moderate) Time Entry: 18 Charges: mod complexity harpreet hCu, OT * Reyes Carney [facility] - 09/14/2022 10:43 AM EDTSummary: Anticoagulation - Warfarin [facility] Department of Pharmacy - Warfarin Pharmacy to Dose Note Patient: Mick Cottrell Room/Bed: 418/A Date INR Dose Other Information 09/14/22 1.8 4 mg Admitted for hip pain and fracture d/t recent fall Indication(s) for warfarin therapy: Mechanical Aortic Valve and Hx CVA Patient-specific Goal INR: 2-3 Bridging therapy? No - will check with attending tomorrow if INR decreases or remains subtherapeutic Assessment and Plan: Pharmacy consulted to dose warfarin per [facility] P&T Consult Agreement. Based on goal INR, today's INR is: Subtherapeutic Based on INR trends, comorbidities, and potential drug interactions, will give the above warfarin dose this evening. I have modified the orders in IS to reflect the above plan. PT/INR ordered. Continuation from Home? Yes - home dose (prior to admission) = 2 mg W, 4 mg all other days Established with [facility]? Yes - last INR = 2.3 on 08/28/22 Other medical history that may affect patient's response to warfarin: elderly Active medication(s) that interact with warfarin and may affect INR: No current interacting medications Additional Information: None Most Recent Labs: INR Date Value Ref Range Status 09/14/2022 1.8 Final Comment: For Patients on oral anticoagulants, the therapeutic INR reference range is 2.0 to 3.5 Hemoglobin Date Value Ref Range Status 09/13/2022 14.3 12.9 - 16.9 g/dL Final Hematocrit Date Value Ref Range Status 09/13/2022 42.7 37.5 - 50.1 % Final Platelet Count Date Value Ref Range Status 09/13/2022 116 (L) 140 - 400 K/uL Final AST Date Value Ref Range Status 04/28/2022 33 13 - 39 U/L Final ALT (SGPT) Date Value Ref Range Status 04/28/2022 47 7 - 52 U/L Final Albumin Date Value Ref Range Status 04/28/2022 4.0 3.5 - 5.7 g/dL Final A pharmacist will continue to dose and monitor warfarin, per [facility] P&T Consult Agreement, until placeholder and associated warfarin medication order is held or discontinued by provider. For discharge dosing recommendations, please contact the floor pharmacist or central pharmacy. Please do not hesitate to contact us with any questions. Reyes Carney RPH [facility] Department of Pharmacy Pharmacy Date/Time: 09/14/2022 10:37 AM * Capri Buckner - 09/13/2022 12:22 PM EDT [facility] Department of Pharmacy Medication History Note Name: Mick Cottrell Room/Bed: [facility] The following sources were used to obtain the medication history: Medication History Sources: patient, surescripts, and pharmacy[facility] The following notable items or issues were identified during the medication history: -patient poor historian, unsure if still taking atorvastatin 40mg- last fill 07-07-22 #90/90ds was picked up per [facility] pharmacy-Timmy Calvin -was previously taking topiramate 50 mg, patient states this was stopped by pcp Is the patient on any of the following classes of medications? U-500 Insulin: No Methotrexate: No Anticoagulants: yes- Warfarin Antiplatelets: No Anti-rejection medications No Prior to admission medication list: Current Outpatient Medications Medication Sig Taking? Last Dose Start Date End Date Authorizing Provider aspirin 81 MG Tab 81 mg, Oral, DAILY Yes 06/19/14 David Vasquez MD Atorvastatin 40 MG tablet 40 mg, Oral, DAILY AT BEDTIME Yes 06/19/14 David Vasquez MD CHOLECALCIFEROL PO 1 tablet, Oral, DAILY Yes Historical Provider docusate 100 MG Cap 100 mg, Oral, EVERY 12 HOURS Yes 08/03/14 Komal Kat MD finasteride 5 MG Tab 5 mg, Oral, DAILY Yes 06/19/14 David Vasquez MD Losartan 25 MG tablet 25 mg, Oral, DAILY Yes Historical Provider MAGNESIUM PO 1 tablet, Oral, 2 TIMES DAILY Yes Historical Provider metformin 500 MG Tab 500 mg, Oral, DAILY EVERY MORNING Yes David Vasquez MD metFORMIN 500 MG tablet 1,000 mg, Oral, EVERY EVENING,
Yes Historical Provider montelukast 10 MG Tab 10 mg, Oral, EVERY EVENING Yes 06/19/14 David Vasquez MD Multiple Vitamins-Minerals (EYE HEALTH + LUTEIN PO) 1 tablet, Oral, DAILY Yes Historical Provider warfarin 4 MG tablet Oral, DIRECTED, *Take 2 mg (1/2 tablet) by mouth every Saturday and 4mg (1tablet) by mouth all other days Yes Historical Provider FLUoxetine 10 MG capsule 20 mg, DAILY Patient not taking: Reported on 09/13/2022 Not Taking Historical Provider naproxen 375 MG Tab 375 mg, Oral, NEEDED Patient not taking: Reported on 09/13/2022 Not Taking 12/09/14 Jos Yan MD ondansetron 4 MG Tab Dispersible tablet 4 mg, Oral, EVERY 4 HOURS NEEDED Patient not taking: Reported on 09/13/2022 Not Taking 08/13/18 Aida Parr MD oxybutynin 5 MG Tab 5 mg, Oral, 3 TIMES DAILY NEEDED Patient not taking: Reported on 09/13/2022 Not Taking 08/13/18 Aida Parr MD oxyCODONE-acetaminophen 5-325 MG Tab 1-2 tablets, Oral, EVERY 4 HOURS NEEDED Patient not taking: Reported on 09/13/2022 Not Taking 08/03/14 Komal Kat MD polyethylene glycol Pack 17 g, Oral, DAILY NEEDED Patient not taking: Reported on 09/13/2022 Not Taking 08/12/14 Komal Kat MD topiramate (TOPAMAX) 50 MG Tab 50 mg, Oral, DAILY AT BEDTIME Patient not taking: Reported on 09/13/2022 Not Taking 11/23/14 Jarrod Rae MD traMADol 50 MG Tab 50 mg, Oral, EVERY 4 HOURS NEEDED Patient not taking: Reported on 09/13/2022 Not Taking 11/06/14 Hyacinth Wilkins MD [facility] Department of Pharmacy Date/Time: 09/13/2022 12:16 PM * Yvon Boyce MD - 09/13/2022 7:40 AM EDT [facility] Medicine Daily Progress Note Patient: Mick Cottrell, 1940, [id number] Physician: Yvon Boyce MD Length of Stay: 0 Subjective/Interval History: Patient is seen and examined this morning. His pain is well controlled and did not have any complaint. Review of system unremarkable. Objective: Temp: [98 F (36.7 C)-98.9 F (37.2 C)] 98.4 F (36.9 C) Pulse (Heart Rate): [71-88] 77 Resp Rate: [17-18] 18 BP: (152-199)/(74-90) 164/89 O2 Sat (%): [90 %-94 %] 93 % Weight: [88.5 kg (195 lb)] 88.5 kg (195 lb) Oxygen Therapy O2 Sat (%): 93 % O2 Device: room air I/O last 3 completed shifts: In: - Out: 250 [Urine:250] General: NAD, ENT: mucus membranes moist, hearing is intact, uvula at midline Thoracic: Chest rise symmetric, normal work of breathing, no wheezing or crackles Cardio: Regular rate and rhythm, no murmurs Abdomen: Soft, nontender, nondistended Extremities: Warm, well perfused. DP pulses 2+ b/l. No edema Skin: warm, dry, no rashes or bruises Neuro: Awake, fully oriented. Psych: Cooperative Data Review: WBC/Hgb/Hct/Plts: 9.9/14.5/44.5/123 (09/12 1015) Bun/Creat/Cl/CO2/Glucose: 13/1.17/104/27/146 (09/12 1015-09/13 0704) Ptt/Pt/Inr: --/24.3/2.2 (09/12 1015) Na/K+/Phos/Mg/Ca: 140/4.0/--/--/9.3 (09/12 101) Additional Labs/Cultures/Micro: New Imaging/Radiological Studies: Assessment/Plan: Mick Cottrell is a 81 y.o. male patient with past medical history of COPD, HLD, HTN, hearing loss,depression/anxiety, aortic stenosis, SANJU on CPAP. Who presented to the ED due to right hip pain following a fall. Fall Right hip pain Closed fracture of superior ramus of right pubis Close nondisplaced fracture of right acetabulum Fracture of the right superior pubic ramus acetabular junction with extension into the acetabulum. Diffuse tearing of the right acetabular labrum. Osteoarthrosis of the right hip. 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 No acute intracranial process identified. Evaluated by Orthopedics and recommended conservative management and PT OT. Fall precaution per hospital policies Pain control PT/OT Follow-up with orthopedics in 2-3 weeks for repeat x-ray Chronic Conditions: Anxiety/Depression: continue home dose of fluoxetine Chronic anticoagulation with Coumadin-patient unsure of indication.? Bioprosthetic valve Plan Resume on home medications once reconciled PPx: warfarin FEN/GI: Regular diet. No MIVF. Code Status: FULL CODE Dispo: Observation, pending PT OT evaluation, likely going to SNF. Yvon Boyce MD * Pily Narayanan RN - 09/12/2022 4:00 PM EDT 09/12/22 1558 Referral Information Arrived From emergency department;home or self-care Readmission Information Was patient readmitted within 30 Days? No Information Source Information Source patient Outpatient Providers Outpatient Providers Updated In IHIS No Contact Information Brimmer Blocker/SW Added to Care Team Yes This Steward/Stewardess Second Class is Primary Brimmer Blocker/SW Yes Brimmer Blocker Name Pily Narayanan RN CM Brimmer Blocker's Living Environment Lives With alone Living Arrangements house Provides Primary Care For no one Primary Care Provided By self Support System Immediate family Able to Return to Prior Arrangements yes Functional Status Patient's Functional Status Prior To This Admission? Independent Are There Status Changes This Admisson? No Changes Observed Since Admission? No Changes Observed Concerns With Patient Being Able To Care For Themselves At Discharge? No Can Support Person Meet The Care Needs Of The Patient? Yes Insurance Medical Insurance Verified Yes Prescription Coverage Yes Pharmacy updated in IHIS No Initial Discharge Planning Home Care Services (SCIENTIFIC SOFTWARE DEVELOPER) No Home Therapies (SCIENTIFIC SOFTWARE DEVELOPER) None DME (SCIENTIFIC SOFTWARE DEVELOPER) Walker;Straight cane Patient Goal for Discharge Get better Anticipated discharge disposition Fdc Facility Anticipated Services at Discharge Physical Therapy Anticipated Changes Related to Illness none Current Discharge Risk lives alone;>65 years of age Transportation Available car Discharge Planning Comments Patient is willing to discuss HH or in patient rehab if needed. He states he currently goes out to [facility] for out patient therapy. Home Care Services (SCIENTIFIC SOFTWARE DEVELOPER) Additional Home Care Services (SCIENTIFIC SOFTWARE DEVELOPER) no Assessment/Concerns to be Addressed Concerns To Be Addressed care coordination/care conferences Patient states no concerns with medication costs or transportation. Patient states no additional needs at this time. documented in this encounterSWAIN COMMUNITY [id number] Hospital course Narrative* Yvon Boyce MD - 09/14/2022 12:58 PM EDT Images from the original note were not included. HOSPITAL MEDICINE DISCHARGE SUMMARY Patient Name: Mick Cottrell Patient Information: Age 81 y.o., 1940, Admission: 09/12/2022 by Zach Sales MD Discharge: 09/14/2022 by Yvon Boyce MD Discharge Diagnoses: Active Problems: Fall Disposition: SNF DISCHARGE LETTER Dear Doctors, I recently had the opportunity to care for Mick Cottrell during his recent hospital stay at [facility]. Hospital Course: Mick Cottrell is a 81 y.o. male patient with past medical history of COPD, HLD, HTN, hearing loss,depression/anxiety, aortic stenosis, SANJU on CPAP who presented to the ED due to right hip pain following a fall. He was found to have closed fracture of the superior rim of right pubis and close non displaced fracture of the right acetabulum. Evaluated by Orthopedics and recommended conservative management and PT OT. Recommended to follow-up in 2-3 weeks with Orthopedics with repeat x-rays. Patient is medically stable and is discharging to SNF as recommended by PT OT. At time of discharge Mental status: AAO x3 Diet: Cardiac Code status: Full code Time spent on discharge: 40 minutes It has been my pleasure participating in this patient's care. Please contact me with any questions or concerns regarding his hospital stay. Sincerely, Yvon Boyce MD [facility] Division of Hospital Medicine RELEVANT DATA FROM ADMISSION Physical Exam: Vitals: 09/14/22 1141 BP: Pulse: Resp: 16 Temp: 98 F (36.7 C) SpO2: 97% Wt Readings from Last 1 Encounters: 09/12/22 88.5 kg (195 lb) Oxygen Therapy O2 Sat (%): 97 % O2 Device: room air Bun/Creat/Cl/CO2/Glucose: --/--/--/--/200 (09/14 1139) CONSULTS DURING ADMISSION IP CONSULT TO SURGERY - ORTHOPAEDICS IP CONSULT TO PHYSICAL THERAPY IP CONSULT TO OCCUPATIONAL THERAPY IP CONSULT TO PHARMACY IMAGING/PROCEDURES/RESULTS RESULTS PENDING AT DISCHARGE FOLLOW UPS AND FURTHER RECOMMENDATIONS Follow-up with PCP and Orthopedics. PATIENT MEDICAL HOME AT DISCHARGE [address] / [place] [phone] MEDICATIONS Medication List for when you go home START taking these medications hydroCODone-acetaminophen 5-325 MG TABS Take 1 tablet by mouth every 8 hours as needed for Moderate Pain for up to 1 day. Commonly known as: NORCO For diagnoses: Closed fracture of superior ramus of right pubis, initial encounter CONTINUE taking these medications aspirin 81 MG TABS Take 1 tablet by mouth daily. For diagnoses: S/P AVR (aortic valve replacement), History of stroke Atorvastatin 40 MG TABS Take 1 tablet by mouth at bedtime. Commonly known as: LIPITOR For diagnoses: HLD (hyperlipidemia), History of stroke CHOLECALCIFEROL PO Take 1 tablet by mouth daily. Docusate 100 MG CAPS take 1 Cap by mouth every 12 hours. Commonly known as: COLACE For diagnoses: Constipation EYE HEALTH + LUTEIN PO Take 1 tablet by mouth daily. Finasteride 5 MG TABS Take 1 tablet by mouth daily. Commonly known as: PROSCAR For diagnoses: Hyperplasia of prostate with lower urinary tract symptoms (LUTS) Losartan 25 MG TABS Take 1 tablet by mouth daily. Commonly known as: COZAAR MAGNESIUM PO Take 1 tablet by mouth 2 times daily. * metFORMIN 500 MG TABS Take 1 tablet by mouth daily every morning. Commonly known as: GLUCOPHAGE For diagnoses: Diabetes mellitus, type 2 * metFORMIN 500 MG TABS Take 2 tablets by mouth every evening. Commonly known as: GLUCOPHAGE Montelukast 10 MG TABS Take 1 tablet by mouth every evening. Commonly known as: SINGULAIR For diagnoses: COPD (chronic obstructive pulmonary disease), Chronic sinusitis warfarin 4 MG tablet Take by mouth As directed. *Take 2 mg (1/2 tablet) by mouth every Saturday and 4mg (1 tablet) by mouth all other days Commonly known as: COUMADIN * The same medication is listed twice. Please discuss with your provider. ASK your doctor about these medications FLUoxetine 10 MG CAPS Take 2 capsules by mouth daily. Commonly known as: PROZAC Naproxen 375 MG TABS take 1 tablet by mouth as needed for Headaches. Commonly known as: NAPROSYN Ondansetron 4 MG ODT tablet Take 1 tablet by mouth every 4 hours as needed for Nausea. Commonly known as: ZOFRAN-ODT Oxybutynin 5 MG TABS Take 1 tablet by mouth 3 times daily as needed for Bladder Spasm. Commonly known as: DITROPAN oxyCODONE-acetaminophen 5-325 MG per tablet take 1-2 Tabs by mouth every 4 hours as needed. Indications: Moderate to Moderately Severe Pain Commonly known as: PERCOCET Polyethylene glycol 17 g PACK packet take 1 Packet by mouth daily as needed. Commonly known as: MIRALAX Topiramate 50 MG TABS take 1 tablet by mouth at bedtime. Commonly known as: Topamax For diagnoses: Migraine aura without headache (migraine equivalents) traMADol 50 MG TABS take 1 tablet by mouth every 4 hours as needed. Commonly known as: ULTRAM No follow-up provider specified. documented in this encounterSWAIN COMMUNITY [id number] Plan of care note* Plan of Care - Pily Narayanan RN - 09/14/2022 12:49 PM EDT HENS completed for [facility] Per Jessica Bacon we have insurance auth, he can transfer today, no covid test needed. Report number [phone] SWA[facility] COMMUNITY [id number] Plan of care note* Plan of Care - Pily Narayanan RN - 09/14/2022 12:19 PM EDT [facility] [place] has accepted the patient, I spoke with the patient over this and he said he has been there before and would like to go back. Talked with Jessica Bacon and she is starting insurance auth at this time. SWA[facility] COMMUNITY [id number] Plan of care note* Plan of Care - Pily Narayanan RN - 09/14/2022 11:49 AM EDT Talked with the patient at the bedside over therapy recommendation. He stated he would agree to in patient therapy but he wanted to remain in [place]. He told me he did not have a preference. Referral was sent to the 4 SNF in [place] at this time. [facility] Plan of care note* Plan of Care - Ronda Langley PT - 09/14/2022 11:30 AM EDT Problem: Ortho - Goals Goal: Ortho - Supine to Sit Description: Pt will perform supine to/from sit transfer with standby assist for improved ability to safely discharge to next level of care. Outcome: Ongoing Goal: Ortho - Sit to Stand Description: Pt will perform sit to/from stand transfer with standby assist with wheeled walker forimproved ability to safely discharge to next level of care. Outcome: Ongoing Goal: Ortho - Ambulate 100 ft Description: Pt will ambulate 100 feet with stand by assist with wheeled walker to promote home navigation. Outcome: Ongoing Goal: Ortho - Independent with HEP Description: Pt will verbalize understanding of home exercise program and appropriate precautions with no greater than minimal cueing for ability to safely discharge to next level of care. Outcome: Ongoing Problem: PT - Balance/Coordination/Neuro Re-Education Goal: Standing Dynamic/Static Balance Description: Pt will perform standing balance tasks for 5 minutes with standby assistance with wheeled walker in order to improve functional mobility and safety with standing tasks. Outcome: Ongoing [facility]06-23-2023 Plan of care note* Plan of Care - Beverly Chu OT - 09/14/2022 10:46 AM EDT Problem: OT - Dressing Goal: Lower Body Dressing Description: Pt will complete LE dressing tasks with minimal assistance for improved ability to complete self-care activities. Outcome: Ongoing Problem: OT - ADLs Goal: Bathing Description: Pt will perform full body bathing routine with contact guard assistance while seated for improved ability to complete self-care activities. Outcome: Ongoing Problem: OT - Endurance Goal: Endurance Functional Task Standing Description: Pt will engage in standing functional task for 5-7 minutes with contact guard assistance to improve activity tolerance necessary for safe ADL completion at recommended discharge destination. Outcome: Ongoing Problem: OT - Transfers Goal: Transfers Toilet/Bedside Commode Description: Pt will transfer to/from toilet/BSC with contact guard assistance for improved abilityto safely complete ADLs. Outcome: Ongoing Problem: OT - Other Goal: Precaution Adherence Description: Pt will demonstrate 100% adherence to RLE touch-down weightbearing precautions during all ADLs and transfers to promote safety during daily routine. Outcome: Ongoing [id number] Consult note* Jaime Dickey MD - 09/13/2022 12:35 PM EDT Associated Order(s): IP CONSULT TO SURGERY - ORTHOPAEDICS Chief Complaint Patient presents with Hip Pain Fall Patient states he fell yesterday was walking down neighbors driveway states that he hit his head onthe grass and his head does not hurt. Complains of right hip pain that radiates down to knee. Radha, last taken this morning. HPI: Mick Cottrell is a 81 y.o. male who has been sent to [facility] for an evaluation of right hip pain. Patient states he fell on Saturday while walking up a driveway hill. He is unsure what happened but ended up with a fall and increased right hip pain. He was having difficulty with ambulating. He presented yesterday to the emergency department. He was evaluated. He was noted to have a superior rami fracture. His mid to the hospital. Orthopedic consultation was obtained. He denies any other extremity complaints. Past Medical History: Diagnosis Date Amaurosis fugax of right eye 05/23/2010 Aortic stenosis Benign prostatic hyperplasia Bladder cancer Surgery x 2; BCG, recurrence 2011 Carpal tunnel syndrome Chronic sinusitis Colon polyp Constipation COPD (chronic obstructive pulmonary disease) Degenerative arthritis of cervical spine Dependent edema Depression with anxiety Diabetes mellitus, type 2 Dysphagia Intra-op EGD 08/17 negative Empyema 11/28/2011 pneumonia GERD (gastroesophageal reflux disease) Hearing loss sensory, bilateral Heartburn HLD (hyperlipidemia) HTN (hypertension) Hyperplasia of prostate with lower urinary tract symptoms (LUTS) Migraine with aura 03/25/2010 Neuropathy, peripheral numb and tingling on sole of left foot SANJU on CPAP biPAP Osteoarthritis Stroke 03/25/2011 TIA (transient ischemic attack) 05/2008, possible 06/02 has follow up with neurologist next month Vitamin D deficiency Past Surgical History: Procedure Laterality Date CYSTOURETHROSCOPY W/ FULGURATION/RESECTION LESION BLADDER (TURB) N/A 04/26/2022 Laterality: N/A; Surgeon: Neno Domínguez MD; Location: [facility] CYSTOURETHROSCOPY W/ FULGURATION/RESECTION LESION BLADDER (TURB) CYSVIEW N/A 08/13/2018 Laterality: N/A; Surgeon: Benigno Cardoso MD; Location: [facility] OR UROGRAPHY/PYELOGRAPHY RETROGRADE Bilateral 08/13/2018 Laterality: Bilateral; Surgeon: Benigno Cardoso MD; Location: [facility] OR CYSTOURETHROSCOPY W/ FULGURATION/RESECTION LESION BLADDER (TURB) N/A 08/02/2014 Laterality: N/A; Surgeon: Benigno Cardoso MD; Location: [facility] OR UROGRAPHY/PYELOGRAPHY RETROGRADE Bilateral 08/02/2014 Laterality: Bilateral; Surgeon: Benigno Cardoso MD; Location: [facility] OR RELEASE CARPAL TUNNEL Left 2013Feb 12 RELEASE CARPAL TUNNEL Right 2013Jan 29 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 06 [employer] LNQ11, serial [id number], Leon Landers MD [phone] ECHOCARDIOGRAM (OUTSIDE) 2013May 05 normal RA, normal RV and RV systolic function, no PFO by color Doppler or agitated saline, mild LAE, normal LV and LV systolic function, LVEF 63%, mild LV diastolic dysfunction, normally functioning bioprosthetic AV, no pulmonary HTN LUNG SURGERY Right 2011Dec 02 thoracotomy, pneumonia CYSTOSCOPY 2011 bladder cancer INTRACAPSULAR CATARACT EXTRACTION Right 2011 REMV CATARACT EXTRACAP,INSERT LENS Left 2010 AVR W/ TISSUE VALVE 2010August 17 model # 3300TFX, 23-mm Jay-Viramontes CYSTOSCOPY 2010 CYSTOSCOPY 2007 CHOLECYSTECTOMY LAPAROSCOPIC SEPTOPLASTY ESS UVULOPALATOPHARYNGOPLASTY (UVPP) TONSILECTOMY Family History Problem Relation Age of Onset Heart Disease - Other Mother Hypertension Mother Breast Cancer Mother Hypertension Father Diabetes Father Anesth Problems Neg Hx Bleeding or Clotting Problems Neg Hx Social History Socioeconomic History Marital status: Number of children: 2 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 Smoking status: Former Packs/day: 1.50 Years: 45.00 Total pack years: 67.50 Types: Cigarettes Quit date: 07/05/1996 Years since quittin.2 Smokeless tobacco: Former Types: Chew Quit date: 07/05/1996 Vaping Use Vaping Use: Never used Substance and Sexual Activity Alcohol use: No Comment: On 06/17/2014 reports less and 1 in prior year, never heavy or regular Drug use: No Other Topics Concern Blood Transfusions No Comment: On 06/17/2014 accepts Caffeine Concern No Comment: 1/2 pot on work days 06/17/2014 Occupational Exposure Yes Comment: dust, fumes, petroleum chemicals 06/17/2014 Weight Concern No Comment: stable 06/17/2014 Exercise No Comment: active 06/17/2014 No current outpatient medications on file. Allergies Allergen Reactions Other Hallucination Any high doses of pain pills (i.e oxycodone), and muscle relaxer Penicillins Swelling Full body edema, received 4 injections of adrenalin-severe reaction in the late 1960s Morphine Hallucination Review of Systems: Review of systems: No fevers, chills, night sweats or fatigue No blurred vision or double vision No frequent nosebleeds, chronic sinus infections No chest pain or shortness of breath no palpitations No lower extremity swelling No cough or wheezing No difficulty with urination no increased frequency of urination See HPI for pertinent positives. Physical Exam: Blood pressure 158/84, pulse 77, temperature 99 F (37.2 C), temperature source Oral, resp. rate 17,height 1.829 m (6'), weight 88.5 kg (195 lb), SpO2 94 %., Body mass index is 26.45 kg/m . Alert and oriented X3. No apparent distress. Normal affect. Examination bilateral upper extremities reveals range of motion without pain, no tenderness or instability, normal strength, skin is intact. He is neurovascularly intact. Examination right lower extremity reveals he does have difficulty doing straight leg raise does reproduce some groin pain. Simple roll testing of the hip does not cause him any groin pain. He has no tenderness over the knee ankle or foot. He is able to dorsiflex and plantar flex the foot and toes. Sensation is intact to light touch. Compartments are all soft. He is neurovascularly intact distally. Examination of the opposite side for comparison reveals full range of motion, no tenderness or instability, normal strength, skin is intact patient is neurovascularly intact. Imaging: I did review his x-ray and MRI scan. He does have a high superior rami fracture/low acetabular fracture. A/P 1. Closed fracture of superior ramus of right pubis, initial encounter 2. Closed nondisplaced fracture of right acetabulum, unspecified portion of acetabulum, initial encounter - We discussed imaging, diagnosis and treatment options. - my recommendation is physical therapy and occupational therapy evaluations. Initially I would have him be touchdown weight-bearing with a walker right lower extremity. He should follow up with Orthopedics in 2-3 weeks in the office for a repeat exam with an x-ray. He may need social service for discharge planning. DVT prophylaxis per Primary Service. I have reviewed each of the pertinent components of this chart and any other pertinent medical component(s) including but not limited to pertinent application of the chief complaint, history of present illness, current medication, medical history, allergies, family history, medical history, surgical history, social history, review of systems, vital signs, and any other portion of the pertinent patient medical record directly or indirectly involved with this patient care that is pertinent based on my medical decision process. Jaime Dickey MD This note was written in part with Dragon Dictation. The note was reviewed by the author prior to publication, but typos and/or inaccurately populated phrases may still appear. If a clinically significant typo and/or inaccurately dictated phrase is noted, please notify the author. [employer] Work Phone: [phone] Consult note* Jaime Dickey MD - 09/13/2022 12:35 PM EDTAssociated Order(s): IP CONSULT TO SURGERY - ORTHOPAEDICS Chief Complaint Patient presents with Hip Pain Fall Patient states he fell yesterday was walking down neighbors driveway states that he hit his head onthe grass and his head does not hurt. Complains of right hip pain that radiates down to knee. [place], last taken this morning. HPI: Mick Cottrell is a 81 y.o. male who has been sent to [facility] for an evaluation of right hip pain. Patient states he fell on Saturday while walking up a driveway hill. He is unsure what happened but ended up with a fall and increased right hip pain. He was having difficulty with ambulating. He presented yesterday to the emergency department. He was evaluated. He was noted to have a superior rami fracture. His mid to the hospital. Orthopedic consultation was obtained. He denies any other extremity complaints. Past Medical History: Diagnosis Date Amaurosis fugax of right eye 05/23/2010 Aortic stenosis Benign prostatic hyperplasia Bladder cancer Surgery x 2; BCG, recurrence 2011 Carpal tunnel syndrome Chronic sinusitis Colon polyp Constipation COPD (chronic obstructive pulmonary disease) Degenerative arthritis of cervical spine Dependent edema Depression with anxiety Diabetes mellitus, type 2 Dysphagia Intra-op EGD 08/17 negative Empyema 11/28/2011 pneumonia GERD (gastroesophageal reflux disease) Hearing loss sensory, bilateral Heartburn HLD (hyperlipidemia) HTN (hypertension) Hyperplasia of prostate with lower urinary tract symptoms (LUTS) Migraine with aura 03/25/2010 Neuropathy, peripheral numb and tingling on sole of left foot SANJU on CPAP biPAP Osteoarthritis Stroke 03/25/2011 TIA (transient ischemic attack) 05/2008, possible 06/02 has follow up with neurologist next month Vitamin D deficiency Past Surgical History: Procedure Laterality Date CYSTOURETHROSCOPY W/ FULGURATION/RESECTION LESION BLADDER (TURB) N/A 04/26/2022 Laterality: N/A; Surgeon: Neno Domínguez MD; Location: [facility] OR CYSTOURETHROSCOPY W/ FULGURATION/RESECTION LESION BLADDER (TURB) CYSVIEW N/A 08/13/2018 Laterality: N/A; Surgeon: Benigno Cardoso MD; Location: [facility] OR UROGRAPHY/PYELOGRAPHY RETROGRADE Bilateral 08/13/2018 Laterality: Bilateral; Surgeon: Benigno Cardoso MD; Location: [facility] OR CYSTOURETHROSCOPY W/ FULGURATION/RESECTION LESION BLADDER (TURB) N/A 08/02/2014 Laterality: N/A; Surgeon: Benigno Cardoso MD; Location: [facility] OR UROGRAPHY/PYELOGRAPHY RETROGRADE Bilateral 08/02/2014 Laterality: Bilateral; Surgeon: Benigno Cardoso MD; Location: [facility] OR RELEASE CARPAL TUNNEL Left 2013Feb 12 RELEASE CARPAL TUNNEL Right 2013Jan 29 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 2013Oct 06 [employer] LNQ11, serial [id number], Leon Landers MD [phone] ECHOCARDIOGRAM (OUTSIDE) 2014 Feb 11 normal RA, normal RV and RV systolic function, no PFO by color Doppler or agitated saline, mild LAE, normal LV and LV systolic function, LVEF 63%, mild LV diastolic dysfunction, normally functioning bioprosthetic AV, no pulmonary HTN LUNG SURGERY Right 2011 Sep 10 thoracotomy, pneumonia CYSTOSCOPY 2011 bladder cancer INTRACAPSULAR CATARACT EXTRACTION Right 2011 REMV CATARACT EXTRACAP,INSERT LENS Left 2010 AVR W/ TISSUE VALVE 2010August 17 model # 3300TFX, 23-mm Jay-Viramontes CYSTOSCOPY 2009 CYSTOSCOPY 2007 CHOLECYSTECTOMY LAPAROSCOPIC SEPTOPLASTY ESS UVULOPALATOPHARYNGOPLASTY (UVPP) TONSILECTOMY Family History Problem Relation Age of Onset Heart Disease - Other Mother Hypertension Mother Breast Cancer Mother Hypertension Father Diabetes Father Anesth Problems Neg Hx Bleeding or Clotting Problems Neg Hx Social History Socioeconomic History Marital status: Number of children: 2 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 Smoking status: Former Packs/day: 1.50 Years: 45.00 Total pack years: 67.50 Types: Cigarettes Quit date: 07/05/1996 Years since quittin.2 Smokeless tobacco: Former Types: Chew Quit date: 07/05/1996 Vaping Use Vaping Use: Never used Substance and Sexual Activity Alcohol use: No Comment: On 06/17/2014 reports less and 1 in prior year, never heavy or regular Drug use: No Other Topics Concern Blood Transfusions No Comment: On 06/17/2014 accepts Caffeine Concern No Comment: 1/2 pot on work days 06/17/2014 Occupational Exposure Yes Comment: dust, fumes, petroleum chemicals 06/17/2014 Weight Concern No Comment: stable 06/17/2014 Exercise No Comment: active 06/17/2014 No current outpatient medications on file. Allergies Allergen Reactions Other Hallucination Any high doses of pain pills (i.e oxycodone), and muscle relaxer Penicillins Swelling Full body edema, received 4 injections of adrenalin-severe reaction in the late 1960s Morphine Hallucination Review of Systems: Review of systems: No fevers, chills, night sweats or fatigue No blurred vision or double vision No frequent nosebleeds, chronic sinus infections No chest pain or shortness of breath no palpitations No lower extremity swelling No cough or wheezing No difficulty with urination no increased frequency of urination See HPI for pertinent positives. Physical Exam: Blood pressure 158/84, pulse 77, temperature 99 F (37.2 C), temperature source Oral, resp. rate 17,height 1.829 m (6'), weight 88.5 kg (195 lb), SpO2 94 %., Body mass index is 26.45 kg/m . Alert and oriented X3. No apparent distress. Normal affect. Examination bilateral upper extremities reveals range of motion without pain, no tenderness or instability, normal strength, skin is intact. He is neurovascularly intact. Examination right lower extremity reveals he does have difficulty doing straight leg raise does reproduce some groin pain. Simple roll testing of the hip does not cause him any groin pain. He has no tenderness over the knee ankle or foot. He is able to dorsiflex and plantar flex the foot and toes. Sensation is intact to light touch. Compartments are all soft. He is neurovascularly intact distally. Examination of the opposite side for comparison reveals full range of motion, no tenderness or instability, normal strength, skin is intact patient is neurovascularly intact. Imaging: I did review his x-ray and MRI scan. He does have a high superior rami fracture/low acetabular fracture. A/P 1. Closed fracture of superior ramus of right pubis, initial encounter 2. Closed nondisplaced fracture of right acetabulum, unspecified portion of acetabulum, initial encounter - We discussed imaging, diagnosis and treatment options. - my recommendation is physical therapy and occupational therapy evaluations. Initially I would have him be touchdown weight-bearing with a walker right lower extremity. He should follow up with Orthopedics in 2-3 weeks in the office for a repeat exam with an x-ray. He may need social service for discharge planning. DVT prophylaxis per Primary Service. I have reviewed each of the pertinent components of this chart and any other pertinent medical component(s) including but not limited to pertinent application of the chief complaint, history of present illness, current medication, medical history, allergies, family history, medical history, surgical history, social history, review of systems, vital signs, and any other portion of the pertinent patient medical record directly or indirectly involved with this patient care that is pertinent based on my medical decision process. Jaime Dickey MD This note was written in part with Dragon Dictation. The note was reviewed by the author prior to publication, but typos and/or inaccurately populated phrases may still appear. If a clinically significant typo and/or inaccurately dictated phrase is noted, please notify the author. documented in this encounterSWAIN COMMUNITY [id number] Plan of care note* Plan of Care - Pily Narayanan RN - 09/13/2022 11:[address] Boyce patient may need placement for therapy. Ortho consult is pending at this time. [id number] Nurse Note* Nursing Notes - ORIANA Heard - 09/13/2022 11:01 AM EDT Patient refused to use bedpan for bowel movement would only go on the bedside. Myself and the charge nurse helped assisted him in the transfer. Patients nurse was notified. [id number] Nurse Note* Nursing Notes - Meghan Marie RN - 09/13/2022 9:19 AM EDT Upon discussing patient morning medications, patient informed me he has been taking his own medications that were in his bedside table. Patient is unsure what all he has taken this morning as they are in a reloaded box & patient states he doesn't know his home medication. Patient states he has a list. List found with patient belonging, patient states unsure if it's updated. Medications lockedin cabinet, copy made of home med list and call to [employer] tech to verify patients medication. [id number] History and physical note* Zach Sales MD - 09/12/2022 3:14 PM EDT Hospital Medicine History & Physical Patient: Mick Cottrell, 1940, [id number] Physician: Zach Sales MD Admit Date: 09/12/2022 Assessment and Plan Mick Cottrell is a 81 y.o. male patient with past medical history of COPD, HLD, HTN, hearing loss,depression/anxiety, aortic stenosis, SANJU on CPAP. Who presented to the ED due to right hip pain following a fall. Reports yesterday he was walking on an uneven pavement and his leg gave out and fell.Following the fall he has been having right hip pain. Reports hitting his head, but denies losing consciousness. Denies chest patient, nausea or vomiting Fall Right hip pain Fracture of the right superior pubic ramus acetabular junction with extension into the acetabulum. Diffuse tearing of the right acetabular labrum. Osteoarthrosis of the right hip. 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 No acute intracranial process identified. Orthopedic team consulted Fall precaution per hospital policies Pain control PT/OT after evaluated by ortho Chronic Conditions: Anxiety/Depression: continue home dose of fluoxetine PPx: lovenox 40 daily FEN/GI: Regular diet. No MIVF. Code Status: FULL CODE Dispo: Observation, anticipate 2-3 more days, likely going SNF or ECF Zach Sales MD Chief Complaint Fall. Right hip pain History of Present Illness Mick Cottrell is a 81 y.o. male patient with past medical history of COPD, HLD, HTN, hearing loss,depression/anxiety, aortic stenosis, SANJU on CPAP. Who presented to the ED due to right hip pain following a fall. Reports yesterday he was walking on an uneven pavement and his leg gave out and fell.Following the fall he has been having right hip pain. Reports hitting his head, but denies losing consciousness. Denies chest patient, nausea or vomiting Past Medical, Surgical, Family, and Social History Past Medical History: Diagnosis Date Amaurosis fugax of right eye 05/23/2010 Aortic stenosis Benign prostatic hyperplasia Bladder cancer Surgery x 2; BCG, recurrence 2012 Carpal tunnel syndrome Chronic sinusitis Colon polyp Constipation COPD (chronic obstructive pulmonary disease) Degenerative arthritis of cervical spine Dependent edema Depression with anxiety Diabetes mellitus, type 2 Dysphagia Intra-op EGD 08/17 negative Empyema 11/28/2011 pneumonia GERD (gastroesophageal reflux disease) Hearing loss sensory, bilateral Heartburn HLD (hyperlipidemia) HTN (hypertension) Hyperplasia of prostate with lower urinary tract symptoms (LUTS) Migraine with aura 03/25/2010 Neuropathy, peripheral numb and tingling on sole of left foot SANJU on CPAP biPAP Osteoarthritis Stroke 03/25/2011 TIA (transient ischemic attack) 05/2008, possible 06/02 has follow up with neurologist next month Vitamin D deficiency Past Surgical History: Procedure Laterality Date CYSTOURETHROSCOPY W/ FULGURATION/RESECTION LESION BLADDER (TURB) N/A 04/26/2022 Laterality: N/A; Surgeon: Neno Domínguez MD; Location: [facility] CYSTOURETHROSCOPY W/ FULGURATION/RESECTION LESION BLADDER (TURB) CYSVIEW N/A 08/13/2018 Laterality: N/A; Surgeon: Benigno Cardoso MD; Location: [facility] OR UROGRAPHY/PYELOGRAPHY RETROGRADE Bilateral 08/13/2018 Laterality: Bilateral; Surgeon: Benigno Cardoso MD; Location: [facility] OR CYSTOURETHROSCOPY W/ FULGURATION/RESECTION LESION BLADDER (TURB) N/A 08/02/2014 Laterality: N/A; Surgeon: Benigno Cardoso MD; Location: [facility] OR UROGRAPHY/PYELOGRAPHY RETROGRADE Bilateral 08/02/2014 Laterality: Bilateral; Surgeon: Benigno Cardoso MD; Location: [facility] OR RELEASE CARPAL TUNNEL Left 2013Feb 12 RELEASE CARPAL TUNNEL Right 2013Jan 29 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 2013Oct 06 [employer]onic LNQ11, serial [id number], Leon Landers MD [phone] ECHOCARDIOGRAM (OUTSIDE) 2013May 05 normal RA, normal RV and RV systolic function, no PFO by color Doppler or agitated saline, mild LAE, normal LV and LV systolic function, LVEF 63%, mild LV diastolic dysfunction, normally functioning bioprosthetic AV, no pulmonary HTN LUNG SURGERY Right 2011Dec 02 thoracotomy, pneumonia CYSTOSCOPY 2011 bladder cancer INTRACAPSULAR CATARACT EXTRACTION Right 2011 REMV CATARACT EXTRACAP,INSERT LENS Left 2010 AVR W/ TISSUE VALVE 2010August 17 model # 3300TFX, 23-mm Jay-Viramontes CYSTOSCOPY 2009 CYSTOSCOPY 2007 CHOLECYSTECTOMY LAPAROSCOPIC SEPTOPLASTY ESS UVULOPALATOPHARYNGOPLASTY (UVPP) TONSILECTOMY Family History Problem Relation Age of Onset Heart Disease - Other Mother Hypertension Mother Breast Cancer Mother Hypertension Father Diabetes Father Anesth Problems Neg Hx Bleeding or Clotting Problems Neg Hx Social History Socioeconomic History Marital status: Number of children: 2 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 Smoking status: Former Packs/day: 1.50 Years: 45.00 Total pack years: 67.50 Types: Cigarettes Quit date: 07/05/1996 Years since quittin.2 Smokeless tobacco: Former Types: Chew Quit date: 07/05/1996 Vaping Use Vaping Use: Never used Substance and Sexual Activity Alcohol use: No Comment: On 06/17/2014 reports less and 1 in prior year, never heavy or regular Drug use: No Other Topics Concern Blood Transfusions No Comment: On 06/17/2014 accepts Caffeine Concern No Comment: 1/2 pot on work days 06/17/2014 Occupational Exposure Yes Comment: dust, fumes, petroleum chemicals 06/17/2014 Weight Concern No Comment: stable 06/17/2014 Exercise No Comment: active 06/17/2014 Medications Prior to Admission Medications Prescriptions Last Dose Informant Patient Reported? Taking? Atorvastatin 40 MG tablet Yes No Sig: Take 1 tablet by mouth at bedtime. FLUoxetine 10 MG capsule Yes No Sig: Take 2 capsules by mouth daily. Losartan 25 MG tablet Yes No Sig: Take 1 tablet by mouth daily. Magnesium 400 MG tablet Yes No Sig: Take 1 tablet by mouth daily. aspirin 81 MG Tab Yes No Sig: Take 1 tablet by mouth daily with breakfast. Non-coated docusate 100 MG Cap No No Sig: take 1 Cap by mouth every 12 hours. finasteride 5 MG Tab Yes No Sig: Take 1 tablet by mouth at bedtime. metformin 500 MG Tab Yes No Sig: Take 1 tablet by mouth every 12 hours. Patient not taking: Reported on 07/31/2022 montelukast 10 MG Tab Yes No Sig: Take 1 tablet by mouth at bedtime. naproxen 375 MG Tab No No Sig: take 1 tablet by mouth as needed for Headaches. ondansetron 4 MG Tab Dispersible tablet No No Sig: Take 1 tablet by mouth every 4 hours as needed for Nausea. oxyCODONE-acetaminophen 5-325 MG Tab No No Sig: take 1-2 Tabs by mouth every 4 hours as needed. Indications: Moderate to Moderately Severe Pain Patient taking differently: Take 1-2 tablets by mouth every 4 hours as needed. oxybutynin 5 MG Tab No No Sig: Take 1 tablet by mouth 3 times daily as needed for Bladder Spasm. polyethylene glycol Pack No No Sig: take 1 Packet by mouth daily as needed. topiramate (TOPAMAX) 50 MG Tab No No Sig: take 1 tablet by mouth at bedtime. traMADol 50 MG Tab No No Sig: take 1 tablet by mouth every 4 hours as needed. warfarin 4 MG tablet Yes No Sig: Take 1 tablet by mouth every evening at 6 PM. Patient not taking: Reported on 07/31/2022 Facility-Administered Medications: None ALLERGIES: He is allergic to other, penicillins, and morphine. Review of Systems (positives in bold) Constitutional - fever, chills, sweats, fatigue, weight loss, weight gain Ophtho - blurry vision, decreased vision, eye pain, loss of vision, eye redness HEENT - headache, epistaxis, sinus problems, oral lesions, dysphagia, sore throat Cardio - chest pain, palpitations, LOPEZ, edema, rapid heart beat, claudication Respiratory - cough, SOB, wheezing, pleuritic pain, sputum changes, hemoptysis GI - nausea, vomiting, diarrhea, abd pain, blood in stool - dysuria, discharge, frequency, hesitancy, hematuria, incontinence, abnl menses Heme/lymph - bleeding, blood clots, bruising, sweats, LAD, weight loss Endo - hot flashes, palpitations, hair loss, polyuria/polydipsia Neuro - weakness, confusion, dizziness, vertigo, seizures, numbness, tingling Skin - rash, redness, lesion, itching MSk - joint pain, back pain, swelling Psych - depression, anxiety, hallucinations, SI ROS negative if not highlighted or mentioned in HPI Physical Exam Temp: [98.2 F (36.8 C)] 98.2 F (36.8 C) Pulse (Heart Rate): [84-88] 88 Resp Rate: [18] 18 BP: (156-182)/(82-90) 182/90 O2 Sat (%): [93 %-94 %] 93 % Weight: [88.5 kg (195 lb)] 88.5 kg (195 lb) Body mass index is 26.45 kg/m . No intake/output data recorded. Oxygen Therapy O2 Sat (%): 93 % Physical Exam: Vitals: in mild distress due to right hip pain General: NAD, good eye contact, relatively well appearing Head: Atraumatic, normocephalic. Face symmetric Eyes: EOMI, sclerae anicteric ENT: Mucous membranes moist. Normal oral mucosa and dentition. Trachea midline. No cervical lymphadenopathy Thoracic: No visible chest wall deformities. Chest rise symmetric, normal work of breathing. Normalbreath sounds b/l, no wheezing or crackles Cardio: regular rate and rhythm, no murmurs. No JVD Abdomen: Soft, nontender, nondistended. No rebound Extremities: Warm, well perfused. DP pulses 2+ b/l. No clubbing, cyanosis. No edema Skin: warm, dry, no rashes or bruises Neuro: Awake, fully oriented. Good memory, concentration, attention. Speech fluent. CN II-XII grossly intact. Moving all extremities. No focal deficits. Labs and Imaging WBC/Hgb/Hct/Plts: 9.9/14.5/44.5/123 (09/12 1015) Bun/Creat/Cl/CO2/Glucose: 13/1.17/104/27/139 (09/12 101) Ptt/Pt/Inr: --/24.3/2.2 (09/12 101) Na/K+/Phos/Mg/Ca: 140/4.0/--/--/9.3 (09/12 101) Lab Results Component Value Date ALT 47 04/28/2022 AST 33 04/28/2022 ALKPHOS 103 04/28/2022 BILITOTAL 0.7 04/28/2022 BILIDIRECT 0.1 04/28/2022 Additional Labs/Cultures/Micro: Imaging/Radiological Studies: MRI HIP RIGHT WITHOUT CONTRAST Final Result IMPRESSION: Fracture of the right superior pubic ramus acetabular junction with extension into the acetabulum. Diffuse tearing of the right acetabular labrum. Osteoarthrosis of the right hip. Nonspecific soft tissue edema adjacent to the right ischium which may be posttraumatic in nature. D/ / Irving Quintero Interpreting Provider: Irving Quintero HIP RIGHT 2 VIEWS Final Result IMPRESSION: Possible fracture of the right superior pubic ramus pubic bone junction and left inferior pubic ramus. D/ / Irving Quintero Interpreting Provider: Irving Quintero CHEST PORTABLE Final Result IMPRESSION: Blunting of the right costophrenic angle due to pleural fluid or pleural thickening. No confluent infiltrate. 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 No acute intracranial process identified. D/ / Irving Quintero Interpreting Provider: Irving Quintero [id number] History and physical note* Zach Sales MD - 09/12/2022 3:14 PM EDT [facility] Medicine History & Physical Patient: Mick Cottrell, 1940, [id number] Physician: Zach Sales MD Admit Date: 09/12/2022 Assessment and Plan Mick Cottrell is a 81 y.o. male patient with past medical history of COPD, HLD, HTN, hearing loss,depression/anxiety, aortic stenosis, SANJU on CPAP. Who presented to the ED due to right hip pain following a fall. Reports yesterday he was walking on an uneven pavement and his leg gave out and fell.Following the fall he has been having right hip pain. Reports hitting his head, but denies losing consciousness. Denies chest patient, nausea or vomiting Fall Right hip pain Fracture of the right superior pubic ramus acetabular junction with extension into the acetabulum. Diffuse tearing of the right acetabular labrum. Osteoarthrosis of the right hip. 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 No acute intracranial process identified. Orthopedic team consulted Fall precaution per hospital policies Pain control PT/OT after evaluated by ortho Chronic Conditions: Anxiety/Depression: continue home dose of fluoxetine PPx: lovenox 40 daily FEN/GI: Regular diet. No MIVF. Code Status: FULL CODE Dispo: Observation, anticipate 2-3 more days, likely going SNF or ECF Zach Sales MD Chief Complaint Fall. Right hip pain History of Present Illness Mick Cottrell is a 81 y.o. male patient with past medical history of COPD, HLD, HTN, hearing loss,depression/anxiety, aortic stenosis, SANJU on CPAP. Who presented to the ED due to right hip pain following a fall. Reports yesterday he was walking on an uneven pavement and his leg gave out and fell.Following the fall he has been having right hip pain. Reports hitting his head, but denies losing consciousness. Denies chest patient, nausea or vomiting Past Medical, Surgical, Family, and Social History Past Medical History: Diagnosis Date Amaurosis fugax of right eye 05/23/2010 Aortic stenosis Benign prostatic hyperplasia Bladder cancer Surgery x 2; BCG, recurrence 2011 Carpal tunnel syndrome Chronic sinusitis Colon polyp Constipation COPD (chronic obstructive pulmonary disease) Degenerative arthritis of cervical spine Dependent edema Depression with anxiety Diabetes mellitus, type 2 Dysphagia Intra-op EGD 08/17 negative Empyema 11/28/2011 pneumonia GERD (gastroesophageal reflux disease) Hearing loss sensory, bilateral Heartburn HLD (hyperlipidemia) HTN (hypertension) Hyperplasia of prostate with lower urinary tract symptoms (LUTS) Migraine with aura 03/25/2010 Neuropathy, peripheral numb and tingling on sole of left foot SANJU on CPAP biPAP Osteoarthritis Stroke 03/25/2011 TIA (transient ischemic attack) 05/2008, possible 06/02 has follow up with neurologist next month Vitamin D deficiency Past Surgical History: Procedure Laterality Date CYSTOURETHROSCOPY W/ FULGURATION/RESECTION LESION BLADDER (TURB) N/A 04/26/2022 Laterality: N/A; Surgeon: Neno Domínguez MD; Location: [facility] CYSTOURETHROSCOPY W/ FULGURATION/RESECTION LESION BLADDER (TURB) CYSVIEW N/A 08/13/2018 Laterality: N/A; Surgeon: Benigno Cardoso MD; Location: [facility] OR UROGRAPHY/PYELOGRAPHY RETROGRADE Bilateral 08/13/2018 Laterality: Bilateral; Surgeon: Benigno Cardoso MD; Location: [facility] OR CYSTOURETHROSCOPY W/ FULGURATION/RESECTION LESION BLADDER (TURB) N/A 08/02/2014 Laterality: N/A; Surgeon: Benigno Cardoso MD; Location: [facility] OR UROGRAPHY/PYELOGRAPHY RETROGRADE Bilateral 08/02/2014 Laterality: Bilateral; Surgeon: Benigno Cardoso MD; Location: [facility] OR RELEASE CARPAL TUNNEL Left 2013Feb 12 RELEASE CARPAL TUNNEL Right 2013Jan 29 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 2013Oct 06 op5tronic LNQ11, serial [id number], Leon Landers MD [phone] ECHOCARDIOGRAM (OUTSIDE) 2013May 05 normal RA, normal RV and RV systolic function, no PFO by color Doppler or agitated saline, mild LAE, normal LV and LV systolic function, LVEF 63%, mild LV diastolic dysfunction, normally functioning bioprosthetic AV, no pulmonary HTN LUNG SURGERY Right 2011Dec 02 thoracotomy, pneumonia CYSTOSCOPY 2011 bladder cancer INTRACAPSULAR CATARACT EXTRACTION Right 2011 REMV CATARACT EXTRACAP,INSERT LENS Left 2010 AVR W/ TISSUE VALVE 2010August 17 model # [id number], 23-mm Jay-Viramontes CYSTOSCOPY 2009 CYSTOSCOPY 2007 CHOLECYSTECTOMY LAPAROSCOPIC SEPTOPLASTY ESS UVULOPALATOPHARYNGOPLASTY (UVPP) TONSILECTOMY Family History Problem Relation Age of Onset Heart Disease - Other Mother Hypertension Mother Breast Cancer Mother Hypertension Father Diabetes Father Anesth Problems Neg Hx Bleeding or Clotting Problems Neg Hx Social History Socioeconomic History Marital status: Number of children: 2 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 Smoking status: Former Packs/day: 1.50 Years: 45.00 Total pack years: 67.50 Types: Cigarettes Quit date: 07/05/1996 Years since quittin.2 Smokeless tobacco: Former Types: Chew Quit date: 07/05/1996 Vaping Use Vaping Use: Never used Substance and Sexual Activity Alcohol use: No Comment: On 06/17/2014 reports less and 1 in prior year, never heavy or regular Drug use: No Other Topics Concern Blood Transfusions No Comment: On 06/17/2014 accepts Caffeine Concern No Comment: 1/2 pot on work days 06/17/2014 Occupational Exposure Yes Comment: dust, fumes, petroleum chemicals 06/17/2014 Weight Concern No Comment: stable 06/17/2014 Exercise No Comment: active 06/17/2014 Medications Prior to Admission Medications Prescriptions Last Dose Informant Patient Reported? Taking? Atorvastatin 40 MG tablet Yes No Sig: Take 1 tablet by mouth at bedtime. FLUoxetine 10 MG capsule Yes No Sig: Take 2 capsules by mouth daily. Losartan 25 MG tablet Yes No Sig: Take 1 tablet by mouth daily. Magnesium 400 MG tablet Yes No Sig: Take 1 tablet by mouth daily. aspirin 81 MG Tab Yes No Sig: Take 1 tablet by mouth daily with breakfast. Non-coated docusate 100 MG Cap No No Sig: take 1 Cap by mouth every 12 hours. finasteride 5 MG Tab Yes No Sig: Take 1 tablet by mouth at bedtime. metformin 500 MG Tab Yes No Sig: Take 1 tablet by mouth every 12 hours. Patient not taking: Reported on 07/31/2022 montelukast 10 MG Tab Yes No Sig: Take 1 tablet by mouth at bedtime. naproxen 375 MG Tab No No Sig: take 1 tablet by mouth as needed for Headaches. ondansetron 4 MG Tab Dispersible tablet No No Sig: Take 1 tablet by mouth every 4 hours as needed for Nausea. oxyCODONE-acetaminophen 5-325 MG Tab No No Sig: take 1-2 Tabs by mouth every 4 hours as needed. Indications: Moderate to Moderately Severe Pain Patient taking differently: Take 1-2 tablets by mouth every 4 hours as needed. oxybutynin 5 MG Tab No No Sig: Take 1 tablet by mouth 3 times daily as needed for Bladder Spasm. polyethylene glycol Pack No No Sig: take 1 Packet by mouth daily as needed. topiramate (TOPAMAX) 50 MG Tab No No Sig: take 1 tablet by mouth at bedtime. traMADol 50 MG Tab No No Sig: take 1 tablet by mouth every 4 hours as needed. warfarin 4 MG tablet Yes No Sig: Take 1 tablet by mouth every evening at 6 PM. Patient not taking: Reported on 07/31/2022 Facility-Administered Medications: None ALLERGIES: He is allergic to other, penicillins, and morphine. Review of Systems (positives in bold) Constitutional - fever, chills, sweats, fatigue, weight loss, weight gain Ophtho - blurry vision, decreased vision, eye pain, loss of vision, eye redness HEENT - headache, epistaxis, sinus problems, oral lesions, dysphagia, sore throat Cardio - chest pain, palpitations, LOPEZ, edema, rapid heart beat, claudication Respiratory - cough, SOB, wheezing, pleuritic pain, sputum changes, hemoptysis GI - nausea, vomiting, diarrhea, abd pain, blood in stool - dysuria, discharge, frequency, hesitancy, hematuria, incontinence, abnl menses Heme/lymph - bleeding, blood clots, bruising, sweats, LAD, weight loss Endo - hot flashes, palpitations, hair loss, polyuria/polydipsia Neuro - weakness, confusion, dizziness, vertigo, seizures, numbness, tingling Skin - rash, redness, lesion, itching MSk - joint pain, back pain, swelling Psych - depression, anxiety, hallucinations, SI ROS negative if not highlighted or mentioned in HPI Physical Exam Temp: [98.2 F (36.8 C)] 98.2 F (36.8 C) Pulse (Heart Rate): [84-88] 88 Resp Rate: [18] 18 BP: (156-182)/(82-90) 182/90 O2 Sat (%): [93 %-94 %] 93 % Weight: [88.5 kg (195 lb)] 88.5 kg (195 lb) Body mass index is 26.45 kg/m . No intake/output data recorded. Oxygen Therapy O2 Sat (%): 93 % Physical Exam: Vitals: in mild distress due to right hip pain General: NAD, good eye contact, relatively well appearing Head: Atraumatic, normocephalic. Face symmetric Eyes: EOMI, sclerae anicteric ENT: Mucous membranes moist. Normal oral mucosa and dentition. Trachea midline. No cervical lymphadenopathy Thoracic: No visible chest wall deformities. Chest rise symmetric, normal work of breathing. Normalbreath sounds b/l, no wheezing or crackles Cardio: regular rate and rhythm, no murmurs. No JVD Abdomen: Soft, nontender, nondistended. No rebound Extremities: Warm, well perfused. DP pulses 2+ b/l. No clubbing, cyanosis. No edema Skin: warm, dry, no rashes or bruises Neuro: Awake, fully oriented. Good memory, concentration, attention. Speech fluent. CN II-XII grossly intact. Moving all extremities. No focal deficits. Labs and Imaging WBC/Hgb/Hct/Plts: 9.9/14.5/44.5/123 (09/12 1014) Bun/Creat/Cl/CO2/Glucose: 13/1.17/104/27/139 (09/12 1014) Ptt/Pt/Inr: --/24.3/2.2 (09/12 1014) Na/K+/Phos/Mg/Ca: 140/4.0/--/--/9.3 (09/12 1014) Lab Results Component Value Date ALT 47 04/28/2022 AST 33 04/28/2022 ALKPHOS 103 04/28/2022 BILITOTAL 0.7 04/28/2022 BILIDIRECT 0.1 04/28/2022 Additional Labs/Cultures/Micro: Imaging/Radiological Studies: MRI HIP RIGHT WITHOUT CONTRAST Final Result IMPRESSION: Fracture of the right superior pubic ramus acetabular junction with extension into the acetabulum. Diffuse tearing of the right acetabular labrum. Osteoarthrosis of the right hip. Nonspecific soft tissue edema adjacent to the right ischium which may be posttraumatic in nature. D/ / Irving Quintero Interpreting Provider: Irving Quintero HIP RIGHT 2 VIEWS Final Result IMPRESSION: Possible fracture of the right superior pubic ramus pubic bone junction and left inferior pubic ramus. D/ / Irivng Quintero Interpreting Provider: Irving Quintero CHEST PORTABLE Final Result IMPRESSION: Blunting of the right costophrenic angle due to pleural fluid or pleural thickening. No confluent infiltrate. 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 No acute intracranial process identified. D/ / Irving Quintero Interpreting Provider: Irving Quintero documented in this encounterSWAIN COMMUNITY [id number] Physician Emergency department Note* Komal Blackwell MD - 09/12/2022 9:23 AM EDT Emergency Department Encounter Chief Complaint Chief Complaint Patient presents with Hip Pain Fall Patient states he fell yesterday was walking down neighbors driveway states that he hit his head onthe grass and his head does not hurt. Complains of right hip pain that radiates down to knee. Takescoumadin, last taken this morning. HPI Patient presents after mechanical fall just prior to arrival and he does have right hip pain. Denies any head pain. No localized numbness or weakness of the extremities, slurred speech, facial droop or confusion. No dizziness. Did not have a syncopal episode. Social history: No smoking or alcohol. The patient is anticoagulated ROS 10-point review of systems performed and negative unless otherwise stated in history of present illness Past Medical History Past Medical History: Diagnosis Date Amaurosis fugax of right eye 05/23/2010 Aortic stenosis Benign prostatic hyperplasia Bladder cancer Surgery x 2; BCG, recurrence 2011 Carpal tunnel syndrome Chronic sinusitis Colon polyp Constipation COPD (chronic obstructive pulmonary disease) Degenerative arthritis of cervical spine Dependent edema Depression with anxiety Diabetes mellitus, type 2 Dysphagia Intra-op EGD 08/17 negative Empyema 11/28/2011 pneumonia GERD (gastroesophageal reflux disease) Hearing loss sensory, bilateral Heartburn HLD (hyperlipidemia) HTN (hypertension) Hyperplasia of prostate with lower urinary tract symptoms (LUTS) Migraine with aura 03/25/2010 Neuropathy, peripheral numb and tingling on sole of left foot SANJU on CPAP biPAP Osteoarthritis Stroke 03/25/2011 TIA (transient ischemic attack) 05/2008, possible 06/02 has follow up with neurologist next month Vitamin D deficiency Surgical History Past Surgical History: Procedure Laterality Date CYSTOURETHROSCOPY W/ FULGURATION/RESECTION LESION BLADDER (TURB) N/A 04/26/2022 Laterality: N/A; Surgeon: Neno Domínguez MD; Location: [facility] OR CYSTOURETHROSCOPY W/ FULGURATION/RESECTION LESION BLADDER (TURB) CYSVIEW N/A 08/13/2018 Laterality: N/A; Surgeon: Benigno Cardoso MD; Location: [facility] OR UROGRAPHY/PYELOGRAPHY RETROGRADE Bilateral 08/13/2018 Laterality: Bilateral; Surgeon: Benigno Cardoso MD; Location: [facility] OR CYSTOURETHROSCOPY W/ FULGURATION/RESECTION LESION BLADDER (TURB) N/A 08/02/2014 Laterality: N/A; Surgeon: Benigno Cardoso MD; Location: [facility] OR UROGRAPHY/PYELOGRAPHY RETROGRADE Bilateral 08/02/2014 Laterality: Bilateral; Surgeon: Benigno Cardoso MD; Location: [facility] OR RELEASE CARPAL TUNNEL Left 2013Feb 12 RELEASE CARPAL TUNNEL Right 2013Jan 29 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 2013Oct 06 Swapbox LNQ11, serial [id number], Leon Landers MD [phone] ECHOCARDIOGRAM (OUTSIDE) 2013May 05 normal RA, normal RV and RV systolic function, no PFO by color Doppler or agitated saline, mild LAE, normal LV and LV systolic function, LVEF 63%, mild LV diastolic dysfunction, normally functioning bioprosthetic AV, no pulmonary HTN LUNG SURGERY Right 2011Dec 02 thoracotomy, pneumonia CYSTOSCOPY 2011 bladder cancer INTRACAPSULAR CATARACT EXTRACTION Right 2011 REMV CATARACT EXTRACAP,INSERT LENS Left 2010 AVR W/ TISSUE VALVE 2010August 17 model # [id number], 23-mm Jay-Viramontes CYSTOSCOPY 2009 CYSTOSCOPY 2007 CHOLECYSTECTOMY LAPAROSCOPIC SEPTOPLASTY ESS UVULOPALATOPHARYNGOPLASTY (UVPP) TONSILECTOMY Current Medications Current Outpatient Medications Medication Sig aspirin 81 MG Tab Take 1 tablet by mouth daily with breakfast. Non-coated Atorvastatin 40 MG tablet Take 1 tablet by mouth at bedtime. docusate 100 MG Cap take 1 Cap by mouth every 12 hours. finasteride 5 MG Tab Take 1 tablet by mouth at bedtime. FLUoxetine 10 MG capsule Take 2 capsules by mouth daily. Losartan 25 MG tablet Take 1 tablet by mouth daily. Magnesium 400 MG tablet Take 1 tablet by mouth daily. metformin 500 MG Tab Take 1 tablet by mouth every 12 hours. (Patient not taking: Reported on 07/31/2022) montelukast 10 MG Tab Take 1 tablet by mouth at bedtime. naproxen 375 MG Tab take 1 tablet by mouth as needed for Headaches. ondansetron 4 MG Tab Dispersible tablet Take 1 tablet by mouth every 4 hours as needed for Nausea. oxybutynin 5 MG Tab Take 1 tablet by mouth 3 times daily as needed for Bladder Spasm. oxyCODONE-acetaminophen 5-325 MG Tab take 1-2 Tabs by mouth every 4 hours as needed. Indications: Moderate to Moderately Severe Pain (Patient taking differently: Take 1-2 tablets by mouth every 4 hours as needed.) polyethylene glycol Pack take 1 Packet by mouth daily as needed. topiramate (TOPAMAX) 50 MG Tab take 1 tablet by mouth at bedtime. traMADol 50 MG Tab take 1 tablet by mouth every 4 hours as needed. warfarin 4 MG tablet Take 1 tablet by mouth every evening at 6 PM. (Patient not taking: Reported on07/31/2022) Allergies Allergies Allergen Reactions Other Hallucination Any high doses of pain pills (i.e oxycodone), and muscle relaxer Penicillins Swelling Full body edema, received 4 injections of adrenalin-severe reaction in the late 1960s Morphine Hallucination Family History Family History Problem Relation Age of Onset Heart Disease - Other Mother Hypertension Mother Breast Cancer Mother Hypertension Father Diabetes Father Anesth Problems Neg Hx Bleeding or Clotting Problems Neg Hx Social History Social History Socioeconomic History Marital status: Spouse name: Not on file Number of children: 2 Years of education: Not on file Highest education level: Not on file 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 Smoking status: Former Packs/day: 1.50 Years: 45.00 Total pack years: 67.50 Types: Cigarettes Quit date: 07/05/1996 Years since quittin.2 Smokeless tobacco: Former Types: Chew Quit date: 07/05/1996 Vaping Use Vaping Use: Never used Substance and Sexual Activity Alcohol use: No Comment: On 06/17/2014 reports less and 1 in prior year, never heavy or regular Drug use: No Sexual activity: Not on file Other Topics Concern Service Not Asked Blood Transfusions No Comment: On 06/17/2014 accepts Caffeine Concern No Comment: 1/2 pot on work days 06/17/2014 Occupational Exposure Yes Comment: dust, fumes, petroleum chemicals 06/17/2014 Hobby Hazards Not Asked Sleep Concern Not Asked Stress Concern Not Asked Weight Concern No Comment: stable 06/17/2014 Special Diet Not Asked Back Care Not Asked Exercise No Comment: active 06/17/2014 Bike Helmet Not Asked Seat Belt Not Asked Domestic Violence Not Asked Social History Narrative Not on file Social Determinants of Health Financial Resource Strain: Not on file Food Insecurity: Not on file Transportation Needs: Not on file Physical Activity: Not on file Stress: Not on file Social Connections: Not on file Intimate Partner Violence: Not on file Housing Stability: Not on file Vital Signs BP 182/90 Pulse 88 Temp 98.2 F (36.8 C) (Oral) Resp 18 Ht 1.829 m (6') Wt 88.5 kg (195 lb) SpO2 93% BMI 26.45 kg/m Smoking Status Former Physical Exam CONSTITUTIONAL: Alert and oriented X3, well-nourished, well appearing, in no apparent distress HEAD: Normocephalic; atraumatic. EYES: PERRL, no scleral icterus. NOSE: The nose is normal in appearance without rhinorrhea RESP: Normal chest excursion with respiration; breath sounds clear and equal bilaterally; no wheezes, rhonchi, or rales CARD: Regular rhythm, without murmurs, rub or gallop ABD: Non-distended; non-tender, soft,without rigidity, rebound or guarding SKIN: Normal for age and race; warm and dry; no apparent lesions Neck: No pain with palpation posterior cervical spine. Extremities: Does have pain With palpation on the right hip EKG Labs Results for orders placed or performed during the hospital encounter of 09/12/22 CBC AND ELECTRONIC DIFF Result Value Ref Range WBC Count 9.9 4.3 - 11.1 K/uL RBC Count 4.57 4.19 - 5.50 M/uL Hemoglobin 14.5 12.9 - 16.9 g/dL Hematocrit 44.5 37.5 - 50.1 % Mean Cell Volume 97.4 83.0 - 100.0 fL Mean Cell Hgb 31.7 28.0 - 33.0 pg Mean Cell Hgb Conc 32.6 31.6 - 35.5 g/dL RBC Distribution 14.7 (H) 11.5 - 14.5 % Platelet Count 123 (L) 140 - 400 K/uL Immature Plt Fraction % 7.6 (H) 1.1 - 6.1 % Mean Platelet Volume 11.2 9.4 - 12.4 fL Segs + Bands Auto 84.2 % Immature Grans % 0.2 % Lymphocyte % Auto 6.3 % Monocyte % Auto 7.9 % Eosinophil % Auto 1.2 % Basophil % Auto 0.2 % Segs + Bands,Absolute Auto 8.4 1.6 - 8.9 K/uL Abs Lymph Auto 0.6 0.6 - 4.6 K/uL Abs Saunders Auto 0.8 0.0 - 1.3 K/uL Abs Eos Auto 0.1 0.0 - 0.6 K/uL Abs Baso Auto 0.0 0.0 - 0.2 K/uL Nucleated RBC 0 /100 WBC BASIC METABOLIC PANEL Result Value Ref Range Sodium 140 136 - 145 mmol/L Potassium 4.0 3.5 - 5.1 mmol/L Chloride 104 98 - 107 mmol/L Carbon Dioxide 27 23 - 29 mmol/L BUN 13 8 - 23 mg/dL Creatinine 1.17 0.70 - 1.30 mg/dL Glucose 139 (H) 70 - 105 mg/dL Calcium 9.3 8.6 - 10.3 mg/dL BUN/CREA Ratio 11 6 - 26 Osmolality (Calc) 292 280 - 300 eGFR, CKD-EPI, Male 63 >=60 mL/min/1.73m2 PROTIME-INR Result Value Ref Range PT 24.3 (H) 9.4 - 12.1 sec INR 2.2 TROPONIN Result Value Ref Range Troponin I 0.03 <0.04 ng/mL URINE SCREEN Result Value Ref Range Color Light Yellow Yellow Urine Bilirubin Negative Negative Appearance Urine Clear Clear Glucose Urine Normal Normal Ketones Urine Negative Negative Blood Urine Trace (A) Negative pH Urine 8.0 5.0 - 8.0 pH Units Protein Urine Trace Negative-Trace mg/dL Urobilinogen Urine Normal Normal Nitrites Urine Negative Negative Leukocyte Esterase Negative Negative Specific Napoleon Urine 1.017 1.010 - 1.025 Radiology MRI HIP RIGHT WITHOUT CONTRAST Final Result IMPRESSION: Fracture of the right superior pubic ramus acetabular junction with extension into the acetabulum. Diffuse tearing of the right acetabular labrum. Osteoarthrosis of the right hip. Nonspecific soft tissue edema adjacent to the right ischium which may be posttraumatic in nature. D/ / Irving Quintero Interpreting Provider: Irving Quintero HIP RIGHT 2 VIEWS Final Result IMPRESSION: Possible fracture of the right superior pubic ramus pubic bone junction and left inferior pubic ramus. D/ / Irving Quintero Interpreting Provider: Irving Quintero CHEST PORTABLE Final Result IMPRESSION: Blunting of the right costophrenic angle due to pleural fluid or pleural thickening. No confluent infiltrate. 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 No acute intracranial process identified. D/ / Irving Quintero Interpreting Provider: Irving Quintero Medical decision-making Emergent non-con brain scan, labs, right hip x-ray. Results pending. Does not have neck pain subjectively or on my exam so no CT scan will be done of the neck. This was not a syncopal episode. 0924 ED Course as of 09/12/22 1425 SatSep 12, 2022 1155 I reviewed the patient's EKG showing normal sinus rhythm with rate is 84 as well as evidence of some downsloping ST depression inferior laterally which is concerning for ischemia. 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 I do not see a previous EKG to compare this to 1248 Patient does have pelvic fractures, MRI results pending 1423 I spoke with the hospitalist who accepts the patient for admission and MRI scan did show a acetabular fracture and superior pubic ramus fracture the patient does have inability to ambulate as well as labrum tear the patient will be admitted likely for placement in extended care facility for rehab Komal Blackwell MD 09/12/22 0924 Komal Blackwell MD 09/12/22 1425 [id number] Emergency department Note* Komal Blackwell MD - 09/12/2022 9:23 AM EDT Emergency Department Encounter Chief Complaint Chief Complaint Patient presents with Hip Pain Fall Patient states he fell yesterday was walking down neighbors driveway states that he hit his head onthe grass and his head does not hurt. Complains of right hip pain that radiates down to knee. Takescoumadin, last taken this morning. HPI Patient presents after mechanical fall just prior to arrival and he does have right hip pain. Denies any head pain. No localized numbness or weakness of the extremities, slurred speech, facial droop or confusion. No dizziness. Did not have a syncopal episode. Social history: No smoking or alcohol. The patient is anticoagulated ROS 10-point review of systems performed and negative unless otherwise stated in history of present illness Past Medical History Past Medical History: Diagnosis Date Amaurosis fugax of right eye 05/23/2010 Aortic stenosis Benign prostatic hyperplasia Bladder cancer Surgery x 2; BCG, recurrence 2011 Carpal tunnel syndrome Chronic sinusitis Colon polyp Constipation COPD (chronic obstructive pulmonary disease) Degenerative arthritis of cervical spine Dependent edema Depression with anxiety Diabetes mellitus, type 2 Dysphagia Intra-op EGD 08/17 negative Empyema 11/28/2011 pneumonia GERD (gastroesophageal reflux disease) Hearing loss sensory, bilateral Heartburn HLD (hyperlipidemia) HTN (hypertension) Hyperplasia of prostate with lower urinary tract symptoms (LUTS) Migraine with aura 03/25/2010 Neuropathy, peripheral numb and tingling on sole of left foot SANJU on CPAP biPAP Osteoarthritis Stroke 03/25/2011 TIA (transient ischemic attack) 05/2008, possible 06/02 has follow up with neurologist next month Vitamin D deficiency Surgical History Past Surgical History: Procedure Laterality Date CYSTOURETHROSCOPY W/ FULGURATION/RESECTION LESION BLADDER (TURB) N/A 04/26/2022 Laterality: N/A; Surgeon: Neno Domínguez MD; Location: [facility] CYSTOURETHROSCOPY W/ FULGURATION/RESECTION LESION BLADDER (TURB) [facility] N/A 08/13/2018 Laterality: N/A; Surgeon: Benigno Cardoso MD; Location: [facility] UROGRAPHY/PYELOGRAPHY RETROGRADE Bilateral 08/13/2018 Laterality: Bilateral; Surgeon: Benigno Cardoso MD; Location: [facility] CYSTOURETHROSCOPY W/ FULGURATION/RESECTION LESION BLADDER (TURB) N/A 08/02/2014 Laterality: N/A; Surgeon: Benigno Cardoso MD; Location: [facility] OR UROGRAPHY/PYELOGRAPHY RETROGRADE Bilateral 08/02/2014 Laterality: Bilateral; Surgeon: Benigno Cardoso MD; Location: [facility] OR RELEASE CARPAL TUNNEL Left 2013Feb 12 RELEASE CARPAL TUNNEL Right 2013Jan 29 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 2013Oct 06 Med[employer]onic [id number], serial [id number], Leon Landers MD [phone] ECHOCARDIOGRAM (OUTSIDE) 2013May 05 normal RA, normal RV and RV systolic function, no PFO by color Doppler or agitated saline, mild LAE, normal LV and LV systolic function, LVEF 63%, mild LV diastolic dysfunction, normally functioning bioprosthetic AV, no pulmonary HTN LUNG SURGERY Right 2011Dec 02 thoracotomy, pneumonia CYSTOSCOPY 2011 bladder cancer INTRACAPSULAR CATARACT EXTRACTION Right 2011 REMV CATARACT EXTRACAP,INSERT LENS Left 2010 AVR W/ TISSUE VALVE 2010August 17 model # [id number], 23-mm Jay-Viramontes CYSTOSCOPY 2009 CYSTOSCOPY 2007 CHOLECYSTECTOMY LAPAROSCOPIC SEPTOPLASTY ESS UVULOPALATOPHARYNGOPLASTY (UVPP) TONSILECTOMY Current Medications Current Outpatient Medications Medication Sig aspirin 81 MG Tab Take 1 tablet by mouth daily with breakfast. Non-coated Atorvastatin 40 MG tablet Take 1 tablet by mouth at bedtime. docusate 100 MG Cap take 1 Cap by mouth every 12 hours. finasteride 5 MG Tab Take 1 tablet by mouth at bedtime. FLUoxetine 10 MG capsule Take 2 capsules by mouth daily. Losartan 25 MG tablet Take 1 tablet by mouth daily. Magnesium 400 MG tablet Take 1 tablet by mouth daily. metformin 500 MG Tab Take 1 tablet by mouth every 12 hours. (Patient not taking: Reported on 07/31/2022) montelukast 10 MG Tab Take 1 tablet by mouth at bedtime. naproxen 375 MG Tab take 1 tablet by mouth as needed for Headaches. ondansetron 4 MG Tab Dispersible tablet Take 1 tablet by mouth every 4 hours as needed for Nausea. oxybutynin 5 MG Tab Take 1 tablet by mouth 3 times daily as needed for Bladder Spasm. oxyCODONE-acetaminophen 5-325 MG Tab take 1-2 Tabs by mouth every 4 hours as needed. Indications: Moderate to Moderately Severe Pain (Patient taking differently: Take 1-2 tablets by mouth every 4 hours as needed.) polyethylene glycol Pack take 1 Packet by mouth daily as needed. topiramate (TOPAMAX) 50 MG Tab take 1 tablet by mouth at bedtime. traMADol 50 MG Tab take 1 tablet by mouth every 4 hours as needed. warfarin 4 MG tablet Take 1 tablet by mouth every evening at 6 PM. (Patient not taking: Reported on07/31/2022) Allergies Allergies Allergen Reactions Other Hallucination Any high doses of pain pills (i.e oxycodone), and muscle relaxer Penicillins Swelling Full body edema, received 4 injections of adrenalin-severe reaction in the late 1960s Morphine Hallucination Family History Family History Problem Relation Age of Onset Heart Disease - Other Mother Hypertension Mother Breast Cancer Mother Hypertension Father Diabetes Father Anesth Problems Neg Hx Bleeding or Clotting Problems Neg Hx Social History Social History Socioeconomic History Marital status: Spouse name: Not on file Number of children: 2 Years of education: Not on file Highest education level: Not on file 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 Smoking status: Former Packs/day: 1.50 Years: 45.00 Total pack years: 67.50 Types: Cigarettes Quit date: 07/05/1996 Years since quittin.2 Smokeless tobacco: Former Types: Chew Quit date: 07/05/1996 Vaping Use Vaping Use: Never used Substance and Sexual Activity Alcohol use: No Comment: On 06/17/2014 reports less and 1 in prior year, never heavy or regular Drug use: No Sexual activity: Not on file Other Topics Concern Service Not Asked Blood Transfusions No Comment: On 06/17/2014 accepts Caffeine Concern No Comment: 1/2 pot on work days 06/17/2014 Occupational Exposure Yes Comment: dust, fumes, petroleum chemicals 06/17/2014 Hobby Hazards Not Asked Sleep Concern Not Asked Stress Concern Not Asked Weight Concern No Comment: stable 06/17/2014 Special Diet Not Asked Back Care Not Asked Exercise No Comment: active 06/17/2014 Bike Helmet Not Asked Seat Belt Not Asked Domestic Violence Not Asked Social History Narrative Not on file Social Determinants of Health Financial Resource Strain: Not on file Food Insecurity: Not on file Transportation Needs: Not on file Physical Activity: Not on file Stress: Not on file Social Connections: Not on file Intimate Partner Violence: Not on file Housing Stability: Not on file Vital Signs BP 182/90 Pulse 88 Temp 98.2 F (36.8 C) (Oral) Resp 18 Ht 1.829 m (6') Wt 88.5 kg (195 lb) SpO2 93% BMI 26.45 kg/m Smoking Status Former Physical Exam CONSTITUTIONAL: Alert and oriented X3, well-nourished, well appearing, in no apparent distress HEAD: Normocephalic; atraumatic. EYES: PERRL, no scleral icterus. NOSE: The nose is normal in appearance without rhinorrhea RESP: Normal chest excursion with respiration; breath sounds clear and equal bilaterally; no wheezes, rhonchi, or rales CARD: Regular rhythm, without murmurs, rub or gallop ABD: Non-distended; non-tender, soft,without rigidity, rebound or guarding SKIN: Normal for age and race; warm and dry; no apparent lesions Neck: No pain with palpation posterior cervical spine. Extremities: Does have pain With palpation on the right hip EKG Labs Results for orders placed or performed during the hospital encounter of 09/12/22 CBC AND ELECTRONIC DIFF Result Value Ref Range WBC Count 9.9 4.3 - 11.1 K/uL RBC Count 4.57 4.19 - 5.50 M/uL Hemoglobin 14.5 12.9 - 16.9 g/dL Hematocrit 44.5 37.5 - 50.1 % Mean Cell Volume 97.4 83.0 - 100.0 fL Mean Cell Hgb 31.7 28.0 - 33.0 pg Mean Cell Hgb Conc 32.6 31.6 - 35.5 g/dL RBC Distribution 14.7 (H) 11.5 - 14.5 % Platelet Count 123 (L) 140 - 400 K/uL Immature Plt Fraction % 7.6 (H) 1.1 - 6.1 % Mean Platelet Volume 11.2 9.4 - 12.4 fL Segs + Bands Auto 84.2 % Immature Grans % 0.2 % Lymphocyte % Auto 6.3 % Monocyte % Auto 7.9 % Eosinophil % Auto 1.2 % Basophil % Auto 0.2 % Segs + Bands,Absolute Auto 8.4 1.6 - 8.9 K/uL Abs Lymph Auto 0.6 0.6 - 4.6 K/uL Abs Saunders Auto 0.8 0.0 - 1.3 K/uL Abs Eos Auto 0.1 0.0 - 0.6 K/uL Abs Baso Auto 0.0 0.0 - 0.2 K/uL Nucleated RBC 0 /100 WBC BASIC METABOLIC PANEL Result Value Ref Range Sodium 140 136 - 145 mmol/L Potassium 4.0 3.5 - 5.1 mmol/L Chloride 104 98 - 107 mmol/L Carbon Dioxide 27 23 - 29 mmol/L BUN 13 8 - 23 mg/dL Creatinine 1.17 0.70 - 1.30 mg/dL Glucose 139 (H) 70 - 105 mg/dL Calcium 9.3 8.6 - 10.3 mg/dL BUN/CREA Ratio 11 6 - 26 Osmolality (Calc) 292 280 - 300 eGFR, CKD-EPI, Male 63 >=60 mL/min/1.73m2 PROTIME-INR Result Value Ref Range PT 24.3 (H) 9.4 - 12.1 sec INR 2.2 TROPONIN Result Value Ref Range Troponin I 0.03 <0.04 ng/mL URINE SCREEN Result Value Ref Range Color Light Yellow Yellow Urine Bilirubin Negative Negative Appearance Urine Clear Clear Glucose Urine Normal Normal Ketones Urine Negative Negative Blood Urine Trace (A) Negative pH Urine 8.0 5.0 - 8.0 pH Units Protein Urine Trace Negative-Trace mg/dL Urobilinogen Urine Normal Normal Nitrites Urine Negative Negative Leukocyte Esterase Negative Negative Specific Napoleon Urine 1.017 1.010 - 1.025 Radiology MRI HIP RIGHT WITHOUT CONTRAST Final Result IMPRESSION: Fracture of the right superior pubic ramus acetabular junction with extension into the acetabulum. Diffuse tearing of the right acetabular labrum. Osteoarthrosis of the right hip. Nonspecific soft tissue edema adjacent to the right ischium which may be posttraumatic in nature. D/ / Irving Quintero Interpreting Provider: Irving Quintero HIP RIGHT 2 VIEWS Final Result IMPRESSION: Possible fracture of the right superior pubic ramus pubic bone junction and left inferior pubic ramus. D/ / Irving Quintero Interpreting Provider: Irving Quintero CHEST PORTABLE Final Result IMPRESSION: Blunting of the right costophrenic angle due to pleural fluid or pleural thickening. No confluent infiltrate. 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 No acute intracranial process identified. D/ / Irving Quintero Interpreting Provider: Irving Quintero Medical decision-making Emergent non-con brain scan, labs, right hip x-ray. Results pending. Does not have neck pain subjectively or on my exam so no CT scan will be done of the neck. This was not a syncopal episode. 0924 ED Course as of 09/12/22 142SatSep 12, 2022 1155 I reviewed the patient's EKG showing normal sinus rhythm with rate is 84 as well as evidence of some downsloping ST depression inferior laterally which is concerning for ischemia. 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 I do not see a previous EKG to compare this to 1248 Patient does have pelvic fractures, MRI results pending 1423 I spoke with the hospitalist who accepts the patient for admission and MRI scan did show a acetabular fracture and superior pubic ramus fracture the patient does have inability to ambulate as well as labrum tear the patient will be admitted likely for placement in extended care facility for rehab Komal Blackwell MD 09/12/22923 Komal Blackwell MD 09/12/221424 documented in this encounterSWAIN COMMUNITY [id number] History of Present illness Narrative* Anshul Mccormick DPM - 08/13/2022 3:45 PM EDTAssociated Order(s): FOOT AND HAND CARE Post-Procedure Diagnose(s): Dermatophytosis of nail; On anticoagulant therapy; Type 2 diabetes mellitus with diabetic neuropathy, without long-term current use of insulin FOOT AND HAND CARE Date/Time: 08/13/2022 3:45 PM Performed by: Anshul Mccormick DPM Authorized by: Anshul Mccormick DPM Procedure: nail debridement Location: Foot Procedure Location: L big toe R second toe L second toe R third toe L third toe R fourth toe L fourth toe R little toe and L little toe Number of nails trimmed: 9 Patient tolerance: patient tolerated the procedure well with no immediate complications Comments: Nail debridement carried out of all affected nails with nail nipper and nail cutlery grinder, width, length, and thickness to prevent ulceration and infection. No complications ensued. Consent: Consent was obtained prior to the procedure after discussion of the risks, benefits and alternatives, and expected outcomes were discussed with the patient. The possibilities of reaction to medication, bleeding, infection, the need for additional procedures, failure to diagnosis a condition, and creating a complication requiring operation were discussed with the patient. The patient concurred with the proposed plan, giving consent. Preparation: skin prepped with alcohol * Anshul Mccormick DPM - 08/13/2022 3:45 PM EDT Chief complaint: Diabetic foot care thick yellow dry crumbly nails. History of foot ulcer now healed History of present illness:Mycotic Nail This patient presents to the office today with thick, elongated, mycotic nails of both feet. We also see hyperkeratotic lesions/ calluses which are considered pre-ulcerative. Patient does have a history of diabetes melitus which places them in a high risk [place] for self care. Exam: Examination: Dermatologic: NAIL PATHOLOGY: thick, yellow, discolored, distorted nails, X 9 MYCOSIS SCALE: 50% with inflammation, with sub-ungual debris and detritus.. ULCER: No signs of ulceration or open wound of either foot.. General Examination: CONSTITUTIONAL: Alert, oriented, in no acute distress, non-toxic. EXTREMITIES: CFT 3 seconds all toes. Edema +1 and pedal pulses palpable. SKIN: Skin with decreased turgor, decreased subcutaneous tissue, skin thin and shiny with trophic changes associated with comorbidities as described in history.. NEUROLOGIC: Diminished epicritic and vibratory sensation from toes to tibia, evidenced with use of monofilament 5.07 and tuning fork at 128 CPS. Patient complains of paresthesias and dysesthesias. There is clinical evidence of loss of protective sensation. Assessment: 1.: Onychomycosis 2.: Hyperkeratosis/callus 3.: Xerotic skin 4.: Diabetes with neuropathy Plan: #1: Exam and evaluate #2: Discuss and educate on diabetic foot care and necessity for daily inspection of skin. Discuss proper footwear fit and size. Education handout given on prevention of foot complications. #3: Debridement of nails x 10 Length, width and thickness with nail nipper and nail cutlery grinder to debulk nails to prevent infection/ulceration. No complication ensued. #4: Recommend use of emollients daily. #5: Patient educated on the pathophysiology of diabetic peripheral neuropathy, history implicationscomplications and ramifications. Patient aware of the clinical symptoms and the need for daily inspection of the skin proper shoe wear and prevention of skin insult. Medicare / Mycotic Nails: Three of the following advanced trophic changes such as: 4. Hair growth decreased or absent, 5. Nail changes, 6. Pigmentary changes, 7. Skin texture thin and shiny. Class C 11. Edema, 12. Parathersias, 14. Thick, yellowish,deformed,crumbly nails, 16. Diabetic, andcould suffer loss of limb from any bacterial infection due to improper care.. Return to clinic: 3 months documented in this encounterSWAIN COMMUNITY [id number] History of Present illness Narrative* Grace Eris - 07/31/2022 11:00 AM EDT Procedures Procedure explained to patient. Patient verbalizes understanding.Witnessed patient signed consent for procedure.Post procedure discharge instructions discussed and given to patient., Patient, procedure and site verified. Patient given Ciprofloxacin 500 mg po times 1 dose per standing order per physician Lot#[id number] Ex:12/16. Prep Betadine, 11 ml lidocaine Glydojet inserted into urethra, Lot:[id number] , EXP:07/17. 1000ml Bag Sterile Saline LOT#[id number] , EXP:07/16. Fire Hazard: _low__, Scope: Olympus Flexible CystoUrethroscope # _[id number]___ assigned to this procedure Time Out:1115 , Start:1115 , Stop:1116 . * Neno Domínguez MD - 07/31/2022 11:00 AM EDTAssociated Order(s): CYSTOSCOPY Post-Procedure Diagnose(s): Personal history of malignant neoplasm of bladder CYSTOSCOPY Date/Time: 07/31/2022 11:00 AM Performed by: Neno Domínguez MD Authorized by: Neno Domínguez MD The attending physician was present for the entire procedure. Pre-Procedure: Indications: bladder cancer Detailed information of all possible complications and side effects were discussed with the patient, these include but not only; UTI, sepsis, hematuria, incontinence, urethral injury and cardiovascular complications. Informed consent was obtained. Does this procedure require a Coral Protocol? Yes. Coral Protocol is required. The patient was given one dose of antibiotics. Urine was collected for testing. Procedure: Procedure performed: cystoscopy The patient was placed supine with all pressure points well padded. Patient was prepped and draped in the usual sterile fashion with Betadine. 10 mL of lidocaine 2% topical gel was inserted into urethra for local anesthesia. A penile clamp was not applied. The flexible cystoscope was lubricated andplaced into the urethral tract under direct visualization. A 360 survey of the bladder was performed. The cystoscope was reflected and the bladder neck and the ureteral orifices were inspected. The findings are detailed below. The cystoscope was removed following any additional procedures documented below. Findings: The urinary meatus appeared normal. There was not a prominent median lobe. The lateral lobes were not obstructive in appearance. No tumors observed. No bladder fistula present. No foreign bodies observed. No stones found. No trabeculations were found. Both ureteral orifices were normal in size, shape and position with efflux of clearurine. The urethra was inspected. No foreign body(s) present in urethra. No urethral diverticulum observed. No urethral stricture found. Cystoscopy normal Post Procedure: Patient tolerated procedure with no immediate complications EBL: no blood loss Procedure Comments: Cysto neg. F/u in 3 months for cysto. documented in this encounterSWAIN COMMUNITY [id number] Hospital Discharge instructions* Patient Instructions* Leandra Gaming RN - 07/13/2022 11:52 AM EDT Care after Cardiac Cath - Wrist Site What to expect For up to 5 days after your procedure, your wrist site may be sore, tender and have some bruising. You may have a small lump at the site that should not get larger. It should go away after 7 to 10 days. You may have a small amount of oozing from the site for 48 hours after the procedure if a scab comes off. Food and drink You can return to your usual diet. Drink 6 to 8 cups of water each of the next 2 days to help flush the contrast medicine or dye from your body after the procedure, unless directed by your doctor to limit fluids. Care of your wrist site You may shower 24 hours after your procedure and remove the bandage over your wrist site. Gently clean the site each day with soap and water and then pat dry. Do NOT scrub the site. Do NOT soak your wrist site in water for 7 days after the procedure or until site is fully healed. This means no soaking in the sink, bath tub, hot tub, swimming pool or other water where your wrist site would be under water. Do NOT put any lotions, powders or ointments on the site for 7 days or until the site is fully healed. After you remove the bandage, you can cover the site with a bandaid for the next day or two if yourclothes rub the site. Otherwise, leave the site uncovered. Check the site each day for any change in redness, swelling, bruising and drainage. Activity limits Do NOT lift, push, or pull more than 5pounds for 7 days or until the site is healed. A gallon of milk weighs just over 8 pounds. Limit twisting and bending the wrist site for [address] for 48 hours after the procedure unless directed by your doctor. Call your doctor if you have: More redness, swelling, bruising, pain or drainage at the wrist site. White or yellow drainage with an odor from the wrist site. Weekdays between 8 AM and 5 PM call: Cardiology office [phone] After 5 PM, on weekends, or if you are not able to reach your doctor, call [facility] yard loader operator at [phone] and ask for the Cardiology attending doctor software application tester. Call 911 or get emergency care if you have: Wrist site bleeding that does not stop after applying direct pressure for 15 minutes. Chest pain, shortness of breath or any unusual symptoms including chills, fever, nausea or vomiting. documented in this encounterSWAIN COMMUNITY [id number] Note* Op Note - Juan Wilson MD - 07/13/2022 11:48 AM EDT LHC showed non obstructive CAD. Plan: - wrist care - dc home - continue medical therapy - acceptable risk to unndergo surgery - no further testing required [place] [id number] Miscellaneous Notes* Op Note - Juan Wilson MD - 07/13/2022 11:48 AM EDT LHC showed non obstructive CAD. Plan: - wrist care - dc home - continue medical therapy - acceptable risk to unndergo surgery - no further testing required documented in this encounterNICOLE [place]IL[place] [id number] History and physical note* Juan Wilson MD - 07/13/2022 8:03 AM EDT HISTORY: Mr. Cottrell is a 81 y.o. male who presents today for an elective cardiac catheterization following unstable angina and abnormal Coronary CTA/Stress test. PAST MEDICAL HISTORY: SOCIAL HISTORY He reports that he quit smoking about 26 years ago. His smoking use included cigarettes. He has a 67.50 pack-year smoking history. He quit smokeless tobacco use about 26 years ago. His smokeless tobacco use included chew. He reports that he does not drink alcohol and does not use drugs. FAMILY HISTORY His family history includes Breast Cancer in his mother; Diabetes in his father; Heart Disease - Other in his mother; Hypertension in his father and mother. He He indicated that his mother is . He indicated that his father is . He indicated that both of his brothers are alive. He indicated that the status of his neg hx is unknown. PAST MEDICAL HISTORY He has a past medical history of Amaurosis fugax of right eye (05/23/2010), Aortic stenosis, Benignprostatic hyperplasia, Bladder cancer, Carpal tunnel syndrome, Chronic sinusitis, Colon polyp, Constipation, COPD (chronic obstructive pulmonary disease), Degenerative arthritis of cervical spine, Dep endent edema, Depression with anxiety, Diabetes mellitus, type 2, Dysphagia, Empyema (11/28/2011), GERD (gastroesophageal reflux disease), Hearing loss sensory, bilateral, Heartburn, HLD (hyperlipidemia), HTN (hypertension), Hyperplasia of prostate with lower urinary tract symptoms (LUTS), Migrainewith aura (03/25/2010), Neuropathy, peripheral, SANJU on CPAP, Osteoarthritis, Stroke (03/25/2011), TIA (transient ischemic attack) (05/2008, possible 06/02), and Vitamin D deficiency. He has no past medical history of Pacemaker. PAST SURGICAL HISTORY His has a past surgical history that includes septoplasty ess; uvulopalatopharyngoplasty (uvpp) tonsillectomy; cystoscopy (2007); cholecystectomy laparoscopic; cystoscopy (2009); avr w/ tissue valve (2010August 17); remv cataract extracap,insert lens (Left, 2010); lung surgery (Right, 2011Dec 02); cystoscopy (2011); intracapsular cataract extraction (Right, 2011); echocardiogram (outside) (2013May 05); director of cardiac rehabilitation (2013Oct 06); release carpal tunnel (Right, 2013Jan 29); release carpal tunnel (Left, 2013Feb 12); cystourethroscopy w/ fulguration/resection lesion bladder (turb) (N/A, 5/ 01/2015); urography/pyelography retrograde (Bilateral, 08/02/2014); cystourethroscopy w/ fulguration/resection lesion bladder (turb) cysview (N/A, 08/13/2018); urography/pyelography retrograde (Bilateral, 08/13/2018); and cystourethroscopy w/ fulguration/resection lesion bladder (turb) (N/A, 04/26/2022). ALLERGIES Allergies Allergen Reactions Other Hallucination Any high doses of pain pills (i.e oxycodone), and muscle relaxer Penicillins Swelling Full body edema, received 4 injections of adrenalin-severe reaction in the late 1960s Morphine Hallucination HOME MEDICATIONS No medications prior to admission. PHYSICAL EXAM: Smoking Status Former Gen: NAD, AOx3, comfortable Chest: CTA bilaterally. No wheezes, rhonci, or rales CV: RRR, normal S1/S2. No murmurs, gallops, rubs. No elevation of JVP. Abd: Soft, NT, ND, NABS. Ext: Moves all extremities well. Warm, well perfused. No edema. Pulses: 2+ radial pulses. 2+ femoral pulses 2+ DP/PT pulses Neuro: CN II-XII grossly intact. FURTHER INVESTIGATIONS: Lab Results Component Value Date SODIUM 140 07/05/2022 SODIUM 142 08/06/2018 SODIUM 135 (L) 08/17/2010 POTASSIUM 3.5 07/05/2022 POTASSIUM 3.9 08/06/2018 POTASSIUM 3.2 (L) 08/17/2010 GLUCOSE 114 (H) 07/05/2022 GLUCOSE 155 (H) 04/26/2022 GLUCOSE 100 04/05/2022 GLUCOSE 129 (H) 08/13/2018 CHLORIDE 104 07/05/2022 CHLORIDE 106 08/06/2018 CO2 28 07/05/2022 CO2 30 08/06/2018 CO2 25.5 08/18/2010 BUN 17 07/05/2022 BUN 22 08/06/2018 CREATSERUM 1.25 07/05/2022 CREATSERUM 1.06 08/06/2018 CREATSERUM 0.97 01/14/2018 Lab Results Component Value Date WBC 8.9 07/05/2022 WBC 7.05 08/06/2018 HGB 15.2 07/05/2022 HGB 15.3 08/06/2018 HCT 47.0 07/05/2022 HCT 46.2 08/06/2018 HCT 31 (L) 08/17/2010 PLATELET 155 07/05/2022 PLATELET 163 08/06/2018 MCV 96.9 07/05/2022 MCV 97.1 (H) 08/06/2018 Lab Results Component Value Date INR 2.0 07/05/2022 INR 2.6 06/26/2022 EKG: reviewed Last stress: reviewed Last cath: reviewed ASSESSMENT AND PLAN: 81 y.o. male is here for elective cardiac catheterization following unstable angina and abnormal Coronary CTA/Stress test. 1. Proceed with planned procedure 2. Further reccomendations pending results of cardiac catheterization Juan Wilson MD, [facility], [facility] Interventional Cardiology [facility] S[facility] COMM[facility] [id number] History and physical note* Juan Wilson MD - 07/13/2022 8:03 AM EDT HISTORY: Mr. Cottrell is a 81 y.o. male who presents today for an elective cardiac catheterization following unstable angina and abnormal Coronary CTA/Stress test. PAST MEDICAL HISTORY: SOCIAL HISTORY He reports that he quit smoking about 26 years ago. His smoking use included cigarettes. He has a 67.50 pack-year smoking history. He quit smokeless tobacco use about 26 years ago. His smokeless tobacco use included chew. He reports that he does not drink alcohol and does not use drugs. FAMILY HISTORY His family history includes Breast Cancer in his mother; Diabetes in his father; Heart Disease - Other in his mother; Hypertension in his father and mother. He He indicated that his mother is . He indicated that his father is . He indicated that both of his brothers are alive. He indicated that the status of his neg hx is unknown. PAST MEDICAL HISTORY He has a past medical history of Amaurosis fugax of right eye (05/23/2010), Aortic stenosis, Benignprostatic hyperplasia, Bladder cancer, Carpal tunnel syndrome, Chronic sinusitis, Colon polyp, Constipation, COPD (chronic obstructive pulmonary disease), Degenerative arthritis of cervical spine, Dep endent edema, Depression with anxiety, Diabetes mellitus, type 2, Dysphagia, Empyema (11/28/2011), GERD (gastroesophageal reflux disease), Hearing loss sensory, bilateral, Heartburn, HLD (hyperlipidemia), HTN (hypertension), Hyperplasia of prostate with lower urinary tract symptoms (LUTS), Migrainewith aura (03/25/2010), Neuropathy, peripheral, SANJU on CPAP, Osteoarthritis, Stroke (03/25/2011), TIA (transient ischemic attack) (05/2008, possible 06/02), and Vitamin D deficiency. He has no past medical history of Pacemaker. PAST SURGICAL HISTORY His has a past surgical history that includes septoplasty ess; uvulopalatopharyngoplasty (uvpp) tonsillectomy; cystoscopy (2007); cholecystectomy laparoscopic; cystoscopy (2009); avr w/ tissue valve (2010August 17); remv cataract extracap,insert lens (Left, 2010); lung surgery (Right, 2011Dec 02); cystoscopy (2011); intracapsular cataract extraction (Right, 2011); echocardiogram (outside) (2013May 05); director of cardiac rehabilitation (2013Oct 06); release carpal tunnel (Right, 2013Jan 29); release carpal tunnel (Left, 2013Feb 12); cystourethroscopy w/ fulguration/resection lesion bladder (turb) (N/A, 01/2015); urography/pyelography retrograde (Bilateral, 08/02/2014); cystourethroscopy w/ fulguration/resection lesion bladder (turb) cysview (N/A, 08/13/2018); urography/pyelography retrograde (Bilateral, 08/13/2018); and cystourethroscopy w/ fulguration/resection lesion bladder (turb) (N/A, 04/26/2022). ALLERGIES Allergies Allergen Reactions Other Hallucination Any high doses of pain pills (i.e oxycodone), and muscle relaxer Penicillins Swelling Full body edema, received 4 injections of adrenalin-severe reaction in the late 1960s Morphine Hallucination HOME MEDICATIONS No medications prior to admission. PHYSICAL EXAM: Smoking Status Former Gen: NAD, AOx3, comfortable Chest: CTA bilaterally. No wheezes, rhonci, or rales CV: RRR, normal S1/S2. No murmurs, gallops, rubs. No elevation of JVP. Abd: Soft, NT, ND, NABS. Ext: Moves all extremities well. Warm, well perfused. No edema. Pulses: 2+ radial pulses. 2+ femoral pulses 2+ DP/PT pulses Neuro: CN II-XII grossly intact. FURTHER INVESTIGATIONS: Lab Results Component Value Date SODIUM 140 07/05/2022 SODIUM 142 08/06/2018 SODIUM 135 (L) 08/17/2010 POTASSIUM 3.5 07/05/2022 POTASSIUM 3.9 08/06/2018 POTASSIUM 3.2 (L) 08/17/2010 GLUCOSE 114 (H) 07/05/2022 GLUCOSE 155 (H) 04/26/2022 GLUCOSE 100 04/05/2022 GLUCOSE 129 (H) 08/13/2018 CHLORIDE 104 07/05/2022 CHLORIDE 106 08/06/2018 CO2 28 07/05/2022 CO2 30 08/06/2018 CO2 25.5 08/18/2010 BUN 17 07/05/2022 BUN 22 08/06/2018 CREATSERUM 1.25 07/05/2022 CREATSERUM 1.06 08/06/2018 CREATSERUM 0.97 01/14/2018 Lab Results Component Value Date WBC 8.9 07/05/2022 WBC 7.05 08/06/2018 HGB 15.2 07/05/2022 HGB 15.3 08/06/2018 HCT 47.0 07/05/2022 HCT 46.2 08/06/2018 HCT 31 (L) 08/17/2010 PLATELET 155 07/05/2022 PLATELET 163 08/06/2018 MCV 96.9 07/05/2022 MCV 97.1 (H) 08/06/2018 Lab Results Component Value Date INR 2.0 07/05/2022 INR 2.6 06/26/2022 EKG: reviewed Last stress: reviewed Last cath: reviewed ASSESSMENT AND PLAN: 81 y.o. male is here for elective cardiac catheterization following unstable angina and abnormal Coronary CTA/Stress test. 1. Proceed with planned procedure 2. Further reccomendations pending results of cardiac catheterization Juan Wilson MD, FACC, FSCAI Interventional Cardiology [facility] # [phone] documented in this encounterSWAIN COMMUNITY [id number] Evaluation + Plan note* Assessment & Plan Note - Juan Wilson MD - 06/26/2022 1:59 PM EDTAssociated Problem(s): Cerebrovascular accident (CVA) Hx of stroke Gait imbalance [facility] [id number] Evaluation + Plan note* Assessment & Plan Note - Juan Wilson MD - 06/26/2022 1:59 PM EDTAssociated Problem(s): S/P AVR (aortic valve replacement) cont aspirin [facility] [id number] Miscellaneous Notes* Assessment & Plan Note - Juan Wilson MD - 06/26/2022 1:59 PM EDTAssociated Problem(s): Cerebrovascular accident (CVA) Hx of stroke Gait imbalance * Assessment & Plan Note - Juan Wilson MD - 06/26/2022 1:59 PM EDTAssociated Problem(s): S/P AVR (aortic valve replacement) cont aspirin * Assessment & Plan Note - Juan Wilson MD - 06/26/2022 1:56 PM EDTAssociated Problem(s): HTN (hypertension) At goal Will cont home meds * Assessment & Plan Note - Juan Wilson MD - 06/26/2022 1:53 PM EDTAssociated Problem(s): Equivalent angina Symptoms are progressing ECG reviewed, abnormal Stress test showed inferior ischemia Will plan LHC due to worsening LOPEZ documented in this encounterSWAIN COMMUNITY [id number] Evaluation + Plan note* Assessment & Plan Note - Juan Wilson MD - 06/26/2022 1:56 PM EDTAssociated Problem(s): HTN (hypertension) At goal Will cont home meds [facility] [id number] Evaluation + Plan note* Assessment & Plan Note - Juan Wilson MD - 06/26/2022 1:53 PM EDTAssociated Problem(s): Equivalent angina Symptoms are progressing ECG reviewed, abnormal Stress test showed inferior ischemia Will plan LHC due to worsening LOPEZ [id number] History of Present illness Narrative* Juan Wilson MD - 06/26/2022 1:20 PM EDT Primary care provider: Grace Gtz MD (General) Dear Dr. Gtz, I had the pleasure of seeing your patient, Mick Cottrell, at the [facility] on 06/26/2022 in follow-up. As you recall, this 81 y.o. male is managed by our group for follow up after positive stresstest I have personally reviewed new/interval records to note the following (each reviewed unique source of records external to my specialty within [facility] Chief Complaint Patient presents with Follow-up C/O CHEST PAIN IN THE RIGHT SIDE HPI: Donn is an 81 year old male PMHx bioprosthetic aortic valve replacement in 2010, HFpEF, COPD,former smoker (quit 20 yrs ago), cryptogenic TIAs/strokes, dementia, previous ILR (extracted 12/2015), COVID19 illness Feb 2020, post-COVID PE, PAF dx in setting of COVID, DM2, SANJU, HLD and HTN presented to the EP clinic for preoperative cardiac risk stratification prior to right uretheraloscopic st one extraction with right ureteral stent placement with Dr. Burks. He underwent Stress test which showed infarct in the inferior wall. Today he is here for follow up. Denies any chest pain but comlpains of severe SOB and LOPEZ. His ECG today showed significant ST changes which are concerning but since he is asymptomatic and on comparison, seems like chronic changes. Denies dizziness or syncope. 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 --- Previous CV testing -- Limited TTE 05/17/20: LVEF 60-65%. RV size is not optimally visualized. Grossly, systolic function is normal in appearance. IVC is dilated suggesting elevated right atrial pressure. Review of Systems Constitutional: Negative for diaphoresis, weight gain and weight loss. HENT: Negative for nosebleeds. Eyes: Negative for visual disturbance. Cardiovascular: Positive for dyspnea on exertion. Negative for chest pain, claudication, cyanosis, irregular heartbeat and leg swelling. Respiratory: Negative for cough, shortness of breath and wheezing. Hematologic/Lymphatic: Negative for bleeding problem. Does not bruise/bleed easily. Skin: Negative for rash. Musculoskeletal: Negative for myalgias. Gastrointestinal: Negative for jaundice, melena, nausea and vomiting. Genitourinary: Negative for hematuria. Neurological: Negative for dizziness, headaches and weakness. Psychiatric/Behavioral: Negative for altered mental status. Current Outpatient Medications: Albuterol 108 (90 Base) MCG/ACT Aero Soln inhaler, 2 puffs as needed, Disp: , Rfl: amLODIPine 5 MG Tab, Take 2 tablets by mouth daily with breakfast., Disp: , Rfl: aspirin 81 MG Tab, Take 1 tablet by mouth daily with breakfast. Non-coated, Disp: , Rfl: Atorvastatin 40 MG tablet, Take 1 tablet by mouth at bedtime., Disp: , Rfl: budesonide-formoterol 160-4.5 mcg/puff Aerosol inhaler, Inhale 2 puffs every 12 hours., Disp: , Rfl: clopidogrel 75 MG Tab tablet, Take 1 tablet by mouth daily., Disp: , Rfl: diphenhydrAMINE 25 MG Tab tablet, Take 1 tablet by mouth every 6 hours as needed., Disp: , Rfl: docusate 100 MG Cap, take 1 Cap by mouth every 12 hours., Disp: 60 Cap, Rfl: 0 Fexofenadine 180 MG tablet, Take 1 tablet by mouth daily with breakfast., Disp: , Rfl: finasteride 5 MG Tab, Take 1 tablet by mouth at bedtime., Disp: , Rfl: FLUoxetine 10 MG capsule, Take 2 capsules by mouth daily., Disp: , Rfl: fluticasone 50 MCG/ACT Suspension, 4 sprays by Nasal route at bedtime. Reported on 07/03/2016, Disp:, Rfl: furOSEmide 20 MG tablet, Take 1 tablet by mouth daily with breakfast., Disp: , Rfl: guaiFENesin 600 MG Tab SR 12 HR tablet SR, Take 1 tablet by mouth 2 times daily., Disp: , Rfl: ipratropium-albuterol 0.5-2.5 (3) MG/3ML nebulizer solution, Take 3 mL by nebulization every 6 hours as needed., Disp: , Rfl: Losartan 25 MG tablet, , Disp: , Rfl: metformin 500 MG Tab, Take 1 tablet by mouth every 12 hours., Disp: , Rfl: metoprolol 50 MG tab regular release, Take 1 tablet by mouth every 12 hours., Disp: , Rfl: mirtazapine 15 MG Tab tablet, Take 1 tablet by mouth At bedtime., Disp: , Rfl: montelukast 10 MG Tab, Take 1 tablet by mouth at bedtime., Disp: , Rfl: Multiple Vitamins-Minerals (EYE-ASAF PLUS LUTEIN) Cap, Take 1 capsule by mouth at bedtime., Disp: ,Rfl: naproxen 375 MG Tab, take 1 tablet by mouth as needed for Headaches., Disp: 30 tablet, Rfl: 1 Nutritional Supplements (BLADDER 2.2) Tab, Take 1 tablet by mouth every 12 hours. Reported on 07/03/2016, Disp: , Rfl: omeprazole [address] capsule, Take 1 capsule by mouth daily every morning., Disp: , Rfl: ondansetron 4 MG Tab Dispersible tablet, Take 1 tablet by mouth every 4 hours as needed for Nausea., Disp: 2 tablet, Rfl: 0 oxybutynin 5 MG Tab, Take 1 tablet by mouth 3 times daily as needed for Bladder Spasm., Disp: 30 tablet, Rfl: 0 oxyCODONE-acetaminophen 5-325 MG Tab, take 1-2 Tabs by mouth every 4 hours as needed. Indications: Moderate to Moderately Severe Pain (Patient taking differently: Take 1-2 tablets by mouth every 4 hours as needed.), Disp: 60 Tab, Rfl: 0 polyethylene glycol Pack, take 1 Packet by mouth daily as needed., Disp: 20 Packet, Rfl: 2 sertraline 50 MG Tab, Take 1 tablet by mouth at bedtime., Disp: , Rfl: tiotropium 18 MCG inhalation capsule, Inhale 1 capsule at bedtime. Reported on 07/03/2016, Disp: , Rfl: topiramate (TOPAMAX) 50 MG Tab, take 1 tablet by mouth at bedtime., Disp: 90 tablet, Rfl: 2 traMADol 50 MG Tab, take 1 tablet by mouth every 4 hours as needed., Disp: 20 tablet, Rfl: 0 warfarin 4 MG tablet, Take 1 tablet by mouth every evening at 6 PM., Disp: , Rfl: Allergies Allergen Reactions Other Hallucination Any high doses of pain pills (i.e oxycodone), and muscle relaxer Penicillins Swelling Full body edema, received 4 injections of adrenalin-severe reaction in the late 1960s Morphine Hallucination Past Medical History: Diagnosis Date Amaurosis fugax of right eye 05/23/2010 Aortic stenosis Benign prostatic hyperplasia Bladder cancer Surgery x 2; BCG, recurrence 2011 Carpal tunnel syndrome Chronic sinusitis Colon polyp Constipation COPD (chronic obstructive pulmonary disease) Degenerative arthritis of cervical spine Dependent edema Depression with anxiety Diabetes mellitus, type 2 Dysphagia Intra-op EGD 08/17 negative Empyema 11/28/2011 pneumonia GERD (gastroesophageal reflux disease) Hearing loss sensory, bilateral Heartburn HLD (hyperlipidemia) HTN (hypertension) Hyperplasia of prostate with lower urinary tract symptoms (LUTS) Migraine with aura 03/25/2010 Neuropathy, peripheral numb and tingling on sole of left foot SANJU on CPAP biPAP Osteoarthritis Stroke 03/25/2011 TIA (transient ischemic attack) 05/2008, possible 06/02 has follow up with neurologist next month Vitamin D deficiency Past Surgical History: Procedure Laterality Date CYSTOURETHROSCOPY W/ FULGURATION/RESECTION LESION BLADDER (TURB) N/A 04/26/2022 Laterality: N/A; Surgeon: Neno Domínguez MD; Location: [facility] CYSTOURETHROSCOPY W/ FULGURATION/RESECTION LESION BLADDER (TURB) C[facility]VIEW N/A 08/13/2018 Laterality: N/A; Surgeon: Benigno Cardoso MD; Location: [facility] UROGRAPHY/PYELOGRAPHY RETROGRADE Bilateral 08/13/2018 Laterality: Bilateral; Surgeon: Benigno Cardoso MD; Location: [facility] OR CYSTOURETHROSCOPY W/ FULGURATION/RESECTION LESION BLADDER (TURB) N/A 08/02/2014 Laterality: N/A; Surgeon: Benigno Cardoso MD; Location: [facility] OR UROGRAPHY/PYELOGRAPHY RETROGRADE Bilateral 08/02/2014 Laterality: Bilateral; Surgeon: Benigno Cardoso MD; Location: [facility] OR RELEASE CARPAL TUNNEL Left 2013Feb 12 RELEASE CARPAL TUNNEL Right 2013Jan 29 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 2013Oct 06 op5tronic LNQ11, serial [id number], Leon Landers MD [phone] ECHOCARDIOGRAM (OUTSIDE) 2013May 05 normal RA, normal RV and RV systolic function, no PFO by color Doppler or agitated saline, mild LAE, normal LV and LV systolic function, LVEF 63%, mild LV diastolic dysfunction, normally functioning bioprosthetic AV, no pulmonary HTN LUNG SURGERY Right 2011Dec 02 thoracotomy, pneumonia CYSTOSCOPY 2011 bladder cancer INTRACAPSULAR CATARACT EXTRACTION Right 2011 REMV CATARACT EXTRACAP,INSERT LENS Left 2010 AVR W/ TISSUE VALVE 2010August 17 model # [id number], 23-mm Jay-Viramontes CYSTOSCOPY 2009 CYSTOSCOPY 2007 CHOLECYSTECTOMY LAPAROSCOPIC SEPTOPLASTY ESS UVULOPALATOPHARYNGOPLASTY (UVPP) TONSILECTOMY Family History Problem Relation Age of Onset Heart Disease - Other Mother Hypertension Mother Breast Cancer Mother Hypertension Father Diabetes Father Anesth Problems Neg Hx Bleeding or Clotting Problems Neg Hx Social History Socioeconomic History Marital status: Spouse name: Not on file Number of children: 2 Years of education: Not on file Highest education level: Not on file 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 Smoking status: Former Packs/day: 1.50 Years: 45.00 Pack years: 67.50 Types: Cigarettes Quit date: 07/05/1996 Years since quittin.9 Smokeless tobacco: Former Types: Chew Quit date: 07/05/1996 Vaping Use Vaping Use: Never used Substance and Sexual Activity Alcohol use: No Comment: On 06/17/2014 reports less and 1 in prior year, never heavy or regular Drug use: No Sexual activity: Not on file Other Topics Concern Service Not Asked Blood Transfusions No Comment: On 06/17/2014 accepts Caffeine Concern No Comment: 1/2 pot on work days 06/17/2014 Occupational Exposure Yes Comment: dust, fumes, petroleum chemicals 06/17/2014 Hobby Hazards Not Asked Sleep Concern Not Asked Stress Concern Not Asked Weight Concern No Comment: stable 06/17/2014 Special Diet Not Asked Back Care Not Asked Exercise No Comment: active 06/17/2014 Bike Helmet Not Asked Seat Belt Not Asked Domestic Violence Not Asked Social History Narrative Not on file Social Determinants of Health Financial Resource Strain: Not on file Food Insecurity: Not on file Transportation Needs: Not on file Physical Activity: Not on file Stress: Not on file Social Connections: Not on file Intimate Partner Violence: Not on file Housing Stability: Not on file The following historical elements were reviewed by a provider in the specific [facility] hagan and updated as appropriate: . On physcial exam today, the vital signs are as follows: BP 144/66 Pulse 71 Ht 1.829 m (6') Wt83.5 kg (184 lb) SpO2 91% BMI 24.95 kg/m Smoking Status Former Body mass index is 24.95 kg/m .. Physical Exam Constitutional: Appearance: He is not ill-appearing, toxic-appearing or diaphoretic. HENT: Head: Normocephalic and atraumatic. Neck: Vascular: No carotid bruit. Cardiovascular: Rate and Rhythm: Normal rate and regular rhythm. Heart sounds: No murmur heard. No friction rub. No gallop. Pulmonary: Effort: No respiratory distress. Breath sounds: No wheezing, rhonchi or rales. Chest: Chest wall: No tenderness. Abdominal: General: Abdomen is flat. Bowel sounds are normal. There is no distension. Palpations: Abdomen is soft. Tenderness: There is no abdominal tenderness. Musculoskeletal: General: No swelling or tenderness. Right lower leg: No edema. Left lower leg: No edema. Skin: Coloration: Skin is not pale. Findings: No erythema or rash. Neurological: General: No focal deficit present. Mental Status: He is oriented to person, place, and time. Mental status is at baseline. Psychiatric: Mood and Affect: Mood normal. Relevant diagnostic data includes the following: Lab Results Component Value Date CHOLESTEROL 105 10/31/2010 TRIG 77 10/31/2010 HDL 31 (L) 10/31/2010 LDLCALC 59 10/31/2010 NHCHOL 74 10/31/2010 Lab Results Component Value Date SODIUM 140 04/28/2022 POTASSIUM 3.8 04/28/2022 CHLORIDE 104 04/28/2022 CO2 29 04/28/2022 BUN 12 04/28/2022 CREATSERUM 1.13 04/28/2022 GLUCOSE 177 (H) 04/28/2022 Lab Results Component Value Date HGBA1C 5.7 (H) 08/06/2018 In summary, Mr. Cottrell is managed today for the following issues: Equivalent angina Symptoms are progressing ECG reviewed, abnormal Stress test showed inferior ischemia Will plan LHC due to worsening LOPEZ HTN (hypertension) At goal Will cont home meds S/P AVR (aortic valve replacement) cont aspirin Cerebrovascular accident (CVA) Hx of stroke Gait imbalance I have ordered the following: Orders Placed This Encounter [place] ECG, CLINIC PERFORMED We will plan on Return in about 3 months (around 09/25/2022).. If I can be of any further assistance,please do not hesitate to contact me. Sincerely, Juan Wilson MD [facility] documented in this encounterSWAIN COMMUNITY [id number] Evaluation + Plan note* Assessment & Plan Note - Juan Wilson MD - 05/18/2022 11:44 AM ESTAssociated Problem(s): Equivalent angina Symptoms are progressing Will check TTE Will check stress test ECG reviewed, abnormal [id number] Evaluation + Plan note* Assessment & Plan Note - Juan Wilson MD - 05/18/2022 11:44 AM ESTAssociated Problem(s): S/P AVR (aortic valve replacement) Will repeat TTE Cont coumadin [id number] Miscellaneous Notes* Assessment & Plan Note - Juan Wilson MD - 05/18/2022 11:44 AM ESTAssociated Problem(s): Equivalent angina Symptoms are progressing Will check TTE Will check stress test ECG reviewed, abnormal * Assessment & Plan Note - Juan Wilson MD - 05/18/2022 11:44 AM ESTAssociated Problem(s): S/P AVR (aortic valve replacement) Will repeat TTE Cont coumadin * Assessment & Plan Note - Juan Wilson MD - 05/18/2022 11:43 AM ESTAssociated Problem(s): HLD (hyperlipidemia) Cont statin * Assessment & Plan Note - Juan Wilson MD - 05/18/2022 11:43 AM ESTAssociated Problem(s): Cerebrovascular accident (CVA) Hx of stroke Gait imbalance * Assessment & Plan Note - Juan Wilson MD - 05/18/2022 11:43 AM ESTAssociated Problem(s): HTN (hypertension) At goal Will cont home meds * Result Encounter Note - Rosalie Soares RN - 05/18/2022 11:20 AM EST Pt scheduled w/ on 06/26/22. documented in this encounterSWAIN COMMUNITY [id number] Miscellaneous Notes* Assessment & Plan Note - Juan Wilson MD - 05/18/2022 11:44 AM ESTAssociated Problem(s): Equivalent angina Symptoms are progressing Will check TTE Will check stress test ECG reviewed, abnormal * Assessment & Plan Note - Juan Wilson MD - 05/18/2022 11:44 AM ESTAssociated Problem(s): S/P AVR (aortic valve replacement) Will repeat TTE Cont coumadin * Assessment & Plan Note - Juan Wilson MD - 05/18/2022 11:43 AM ESTAssociated Problem(s): HLD (hyperlipidemia) Cont statin * Assessment & Plan Note - Juan Wilson MD - 05/18/2022 11:43 AM ESTAssociated Problem(s): Cerebrovascular accident (CVA) Hx of stroke Gait imbalance * Assessment & Plan Note - Juan Wilson MD - 05/18/2022 11:43 AM ESTAssociated Problem(s): HTN (hypertension) At goal Will cont home meds documented in this encounterSWAIN COMMUNITY [id number] Evaluation + Plan note* Assessment & Plan Note - Juan Wilson MD - 05/18/2022 11:43 AM ESTAssociated Problem(s): HLD (hyperlipidemia) Cont statin [id number] Evaluation + Plan note* Assessment & Plan Note - Juan Wilson MD - 05/18/2022 11:43 AM ESTAssociated Problem(s): Cerebrovascular accident (CVA) Hx of stroke Gait imbalance [id number] Evaluation + Plan note* Assessment & Plan Note - Juan Wilson MD - 05/18/2022 11:43 AM ESTAssociated Problem(s): HTN (hypertension) At goal Will cont home meds [id number] History of Present illness Narrative* Juan Wilson MD - 05/18/2022 11:20 AM EST Primary care provider: Grace Gtz MD (General) Dear Dr. Gtz, I had the pleasure of seeing your patient, Mick Cottrell, at the [facility] on 05/18/2022 in follow-up. As you recall, this 81 y.o. male is managed by our group for annual follow up I have personally reviewed new/interval records to note the following (each reviewed unique source of records external to my specialty within [facility] Chief Complaint Patient presents with Dizziness balance Shortness of Breath Lying down HPI: Mr. Cottrell is an 81 year old male PMHx bioprosthetic aortic valve replacement in 2010, HFpEF, COPD, former smoker (quit 20 yrs ago), cryptogenic TIAs/strokes, dementia, previous ILR (extracted 12/2015), COVID19 illness Feb 2020, post-COVID PE, PAF dx in setting of COVID, DM2, SANJU, HLD and HTN presented to the EP clinic for preoperative cardiac risk stratification prior to right uretheraloscopic stone extraction with right ureteral stent placement with Dr. Burks. He underwent Stress testwhich showed infarct in the inferior wall. Today he is here for follow up. Denies any chest pain but comlpains of severe SOB and LOPEZ. His ECG today showed significant ST changes which are concerning but since he is asymptomatic, does not wantto got to ER to get it checked. Denies dizziness or syncope. 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 --- Previous CV testing -- Limited TTE 05/17/20: LVEF 60-65%. RV size is not optimally visualized. Grossly, systolic function is normal in appearance. IVC is dilated suggesting elevated right atrial pressure. Review of Systems Constitutional: Negative for diaphoresis, weight gain and weight loss. HENT: Negative for nosebleeds. Eyes: Negative for visual disturbance. Cardiovascular: Positive for dyspnea on exertion. Negative for chest pain, claudication, cyanosis, irregular heartbeat and leg swelling. Respiratory: Positive for shortness of breath. Negative for cough and wheezing. Hematologic/Lymphatic: Negative for bleeding problem. Does not bruise/bleed easily. Skin: Negative for rash. Musculoskeletal: Negative for myalgias. Gastrointestinal: Negative for jaundice, melena, nausea and vomiting. Genitourinary: Negative for hematuria. Neurological: Negative for dizziness, headaches and weakness. Psychiatric/Behavioral: Negative for altered mental status. Current Outpatient Medications: amLODIPine 5 MG Tab, Take 2 tablets by mouth daily with breakfast., Disp: , Rfl: aspirin 81 MG Tab, Take 1 tablet by mouth daily with breakfast. Non-coated, Disp: , Rfl: Atorvastatin 40 MG tablet, Take 1 tablet by mouth at bedtime., Disp: , Rfl: budesonide-formoterol 160-4.5 mcg/puff Aerosol inhaler, Inhale 2 puffs every 12 hours., Disp: , Rfl: Cholecalciferol (VITAMIN D3) 400 UNITS Cap, Take 1 capsule by mouth daily with breakfast., Disp: 30Cap, Rfl: clopidogrel 75 MG Tab tablet, Take 1 tablet by mouth daily., Disp: , Rfl: diphenhydrAMINE 25 MG Tab tablet, Take 1 tablet by mouth every 6 hours as needed., Disp: , Rfl: docusate 100 MG Cap, take 1 Cap by mouth every 12 hours., Disp: 60 Cap, Rfl: 0 Fexofenadine 180 MG tablet, Take 1 tablet by mouth daily with breakfast., Disp: , Rfl: finasteride 5 MG Tab tablet, Take 1 tablet by mouth daily., Disp: , Rfl: finasteride 5 MG Tab, Take 1 tablet by mouth at bedtime., Disp: , Rfl: FLUoxetine 10 MG capsule, Take 2 capsules by mouth daily., Disp: , Rfl: fluticasone 50 MCG/ACT Suspension, 4 sprays by Nasal route at bedtime. Reported on 07/03/2016, Disp:, Rfl: furOSEmide 20 MG tablet, Take 1 tablet by mouth daily with breakfast., Disp: , Rfl: guaiFENesin 600 MG Tab SR 12 HR tablet SR, Take 1 tablet by mouth 2 times daily., Disp: , Rfl: ipratropium-albuterol 0.5-2.5 (3) MG/3ML nebulizer solution, Take 3 mL by nebulization every 6 hours as needed., Disp: , Rfl: losartan 100 MG tablet, Take 1 tablet by mouth daily with breakfast., Disp: , Rfl: meloxicam 15 MG Tab, Take 1 tablet by mouth at bedtime. Reported on 07/03/2016, Disp: , Rfl: metformin 500 MG Tab, Take 1 tablet by mouth every 12 hours., Disp: , Rfl: metoprolol 50 MG tab regular release, Take 1 tablet by mouth every 12 hours., Disp: , Rfl: mirtazapine 15 MG Tab tablet, Take 1 tablet by mouth At bedtime., Disp: , Rfl: montelukast 10 MG Tab, Take 1 tablet by mouth at bedtime., Disp: , Rfl: Multiple Vitamins-Minerals (EYE-ASAF PLUS LUTEIN) Cap, Take 1 capsule by mouth at bedtime., Disp: ,Rfl: naproxen 375 MG Tab, take 1 tablet by mouth as needed for Headaches., Disp: 30 tablet, Rfl: 1 Nutritional Supplements (BLADDER 2.2) Tab, Take 1 tablet by mouth every 12 hours. Reported on 07/03/2016, Disp: , Rfl: omeprazole [address] capsule, Take 1 capsule by mouth daily every morning., Disp: , Rfl: ondansetron 4 MG Tab Dispersible tablet, Take 1 tablet by mouth every 4 hours as needed for Nausea., Disp: 2 tablet, Rfl: 0 oxybutynin 5 MG Tab, Take 1 tablet by mouth 3 times daily as needed for Bladder Spasm., Disp: 30 tablet, Rfl: 0 oxyCODONE-acetaminophen 5-325 MG Tab, take 1-2 Tabs by mouth every 4 hours as needed. Indications: Moderate to Moderately Severe Pain (Patient taking differently: Take 1-2 tablets by mouth every 4 hours as needed.), Disp: 60 Tab, Rfl: 0 polyethylene glycol Pack, take 1 Packet by mouth daily as needed., Disp: 20 Packet, Rfl: 2 sertraline 50 MG Tab, Take 1 tablet by mouth at bedtime., Disp: , Rfl: tiotropium 18 MCG inhalation capsule, Inhale 1 capsule at bedtime. Reported on 07/03/2016, Disp: , Rfl: topiramate (TOPAMAX) 50 MG Tab, take 1 tablet by mouth at bedtime., Disp: 90 tablet, Rfl: 2 traMADol 50 MG Tab, take 1 tablet by mouth every 4 hours as needed., Disp: 20 tablet, Rfl: 0 warfarin 4 MG tablet, Take 1 tablet by mouth every evening at 6 PM., Disp: , Rfl: Allergies Allergen Reactions Other Hallucination Any high doses of pain pills (i.e oxycodone), and muscle relaxer Penicillins Swelling Full body edema, received 4 injections of adrenalin-severe reaction in the late 1960s Morphine Hallucination Past Medical History: Diagnosis Date Amaurosis fugax of right eye 05/23/2010 Aortic stenosis Benign prostatic hyperplasia Bladder cancer Surgery x 2; BCG, recurrence 2011 Carpal tunnel syndrome Chronic sinusitis Colon polyp Constipation COPD (chronic obstructive pulmonary disease) Degenerative arthritis of cervical spine Dependent edema Depression with anxiety Diabetes mellitus, type 2 Dysphagia Intra-op EGD 08/17 negative Empyema 11/28/2011 pneumonia GERD (gastroesophageal reflux disease) Hearing loss sensory, bilateral Heartburn HLD (hyperlipidemia) HTN (hypertension) Hyperplasia of prostate with lower urinary tract symptoms (LUTS) Migraine with aura 03/25/2010 Neuropathy, peripheral numb and tingling on sole of left foot SANJU on CPAP biPAP Osteoarthritis Stroke 03/25/2011 TIA (transient ischemic attack) 05/2008, possible 06/02 has follow up with neurologist next month Vitamin D deficiency Past Surgical History: Procedure Laterality Date CYSTOURETHROSCOPY W/ FULGURATION/RESECTION LESION BLADDER (TURB) N/A 04/26/2022 Laterality: N/A; Surgeon: Neno Domínguez MD; Location: [facility] CYSTOURETHROSCOPY W/ FULGURATION/RESECTION LESION BLADDER (TURB) CYSVIEW N/A 08/13/2018 Laterality: N/A; Surgeon: Benigno Cardoso MD; Location: [facility] OR UROGRAPHY/PYELOGRAPHY RETROGRADE Bilateral 08/13/2018 Laterality: Bilateral; Surgeon: Benigno Cardoso MD; Location: [facility] OR CYSTOURETHROSCOPY W/ FULGURATION/RESECTION LESION BLADDER (TURB) N/A 08/02/2014 Laterality: N/A; Surgeon: Benigno Cardoso MD; Location: [facility] OR UROGRAPHY/PYELOGRAPHY RETROGRADE Bilateral 08/02/2014 Laterality: Bilateral; Surgeon: Benigno Cardoso MD; Location: [facility] OR RELEASE CARPAL TUNNEL Left 2013Feb 12 RELEASE CARPAL TUNNEL Right 2013Jan 29 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 2013Oct 06 op5tronic [id number], serial [id number], Leon Landers MD [phone] ECHOCARDIOGRAM (OUTSIDE) 2013May 05 normal RA, normal RV and RV systolic function, no PFO by color Doppler or agitated saline, mild LAE, normal LV and LV systolic function, LVEF 63%, mild LV diastolic dysfunction, normally functioning bioprosthetic AV, no pulmonary HTN LUNG SURGERY Right 2011Dec 02 thoracotomy, pneumonia CYSTOSCOPY 2011 bladder cancer INTRACAPSULAR CATARACT EXTRACTION Right 2011 REMV CATARACT EXTRACAP,INSERT LENS Left 2010 AVR W/ TISSUE VALVE 2010August 17 model # [id number], 23-mm Jay-Viramontes CYSTOSCOPY 2009 CYSTOSCOPY 2007 CHOLECYSTECTOMY LAPAROSCOPIC SEPTOPLASTY ESS UVULOPALATOPHARYNGOPLASTY (UVPP) TONSILECTOMY Family History Problem Relation Age of Onset Heart Disease - Other Mother Hypertension Mother Breast Cancer Mother Hypertension Father Diabetes Father Anesth Problems Neg Hx Bleeding or Clotting Problems Neg Hx Social History Socioeconomic History Marital status: Spouse name: Not on file Number of children: 2 Years of education: Not on file Highest education level: Not on file 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 Smoking status: Former Packs/day: 1.50 Years: 45.00 Pack years: 67.50 Types: Cigarettes Quit date: 07/05/1996 Years since quittin.8 Smokeless tobacco: Former Types: Chew Quit date: 07/05/1996 Vaping Use Vaping Use: Never used Substance and Sexual Activity Alcohol use: No Comment: On 06/17/2014 reports less and 1 in prior year, never heavy or regular Drug use: No Sexual activity: Not on file Other Topics Concern Service Not Asked Blood Transfusions No Comment: On 06/17/2014 accepts Caffeine Concern No Comment: 1/2 pot on work days 06/17/2014 Occupational Exposure Yes Comment: dust, fumes, petroleum chemicals 06/17/2014 Hobby Hazards Not Asked Sleep Concern Not Asked Stress Concern Not Asked Weight Concern No Comment: stable 06/17/2014 Special Diet Not Asked Back Care Not Asked Exercise No Comment: active 06/17/2014 Bike Helmet Not Asked Seat Belt Not Asked Domestic Violence Not Asked Social History Narrative Not on file Social Determinants of Health Financial Resource Strain: Not on file Food Insecurity: Not on file Transportation Needs: Not on file Physical Activity: Not on file Stress: Not on file Social Connections: Not on file Intimate Partner Violence: Not on file Housing Stability: Not on file The following historical elements were reviewed by a provider in the specific [facility]agan and updated as appropriate: . On physcial exam today, the vital signs are as follows: BP 140/88 Pulse 84 Wt 83 kg (183 lb) SpO2 96% BMI 24.81 kg/m Smoking Status Former Body mass index is 24.81 kg/m .. Physical Exam Constitutional: Appearance: He is not ill-appearing, toxic-appearing or diaphoretic. HENT: Head: Normocephalic and atraumatic. Neck: Vascular: No carotid bruit. Cardiovascular: Rate and Rhythm: Normal rate and regular rhythm. Pulses: Carotid pulses are on the right side with bruit and on the left side with bruit. Heart sounds: No murmur heard. No friction rub. No gallop. Pulmonary: Effort: No respiratory distress. Breath sounds: No wheezing, rhonchi or rales. Chest: Chest wall: No tenderness. Abdominal: General: Abdomen is flat. Bowel sounds are normal. There is no distension. Palpations: Abdomen is soft. Tenderness: There is no abdominal tenderness. Musculoskeletal: General: No swelling or tenderness. Right lower leg: No edema. Left lower leg: No edema. Skin: Coloration: Skin is not pale. Findings: No erythema or rash. Neurological: General: No focal deficit present. Mental Status: He is oriented to person, place, and time. Mental status is at baseline. Psychiatric: Mood and Affect: Mood normal. Relevant diagnostic data includes the following: Lab Results Component Value Date CHOLESTEROL 105 10/31/2010 TRIG 77 10/31/2010 HDL 31 (L) 10/31/2010 LDLCALC 59 10/31/2010 NHCHOL 74 10/31/2010 Lab Results Component Value Date SODIUM 140 04/28/2022 POTASSIUM 3.8 04/28/2022 CHLORIDE 104 04/28/2022 CO2 29 04/28/2022 BUN 12 04/28/2022 CREATSERUM 1.13 04/28/2022 GLUCOSE 177 (H) 04/28/2022 Lab Results Component Value Date HGBA1C 5.7 (H) 08/06/2018 EKG interpretation Reviewed Testing In summary, Mr. Cottrell is managed today for the following issues: HTN (hypertension) At goal Will cont home meds Cerebrovascular accident (CVA) Hx of stroke Gait imbalance HLD (hyperlipidemia) Cont statin S/P AVR (aortic valve replacement) Will repeat TTE Cont coumadin Equivalent angina Symptoms are progressing Will check TTE Will check stress test ECG reviewed, abnormal I have ordered the following: Orders Placed This Encounter VASC DUPLEX CAROTID BILATERAL [place] ECG, CLINIC PERFORMED We will plan on Return in about 3 months (around 08/15/2022).. If I can be of any further assistance, please do not hesitate to contact me. Sincerely, Juan Wilson MD [facility] documented in this encounterSWAIN COMMUNITY [id number] History of Present illness Narrative* Juan Wilson MD - 05/18/2022 11:20 AM EST Primary care provider: Grace Gtz MD (General) Dear Dr. Gtz, I had the pleasure of seeing your patient, Mick Cottrell, at the [facility] on 05/18/2022 in follow-up. As you recall, this 81 y.o. male is managed by our group for annual follow up I have personally reviewed new/interval records to note the following (each reviewed unique source of records external to my specialty within [facility] Chief Complaint Patient presents with Dizziness balance Shortness of Breath Lying down HPI: Mr. Cottrell is an 81 year old male PMHx bioprosthetic aortic valve replacement in 2010, HFpEF, COPD, former smoker (quit 20 yrs ago), cryptogenic TIAs/strokes, dementia, previous ILR (extracted 12/2015), COVID19 illness Feb 2020, post-COVID PE, PAF dx in setting of COVID, DM2, SANJU, HLD and HTN presented to the EP clinic for preoperative cardiac risk stratification prior to right uretheraloscopic stone extraction with right ureteral stent placement with Dr. Burks. He underwent Stress testwhich showed infarct in the inferior wall. Today he is here for follow up. Denies any chest pain but comlpains of severe SOB and LOPEZ. His ECG today showed significant ST changes which are concerning but since he is asymptomatic, does not wantto got to ER to get it checked. Denies dizziness or syncope. 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 --- Previous CV testing -- Limited TTE 05/17/20: LVEF 60-65%. RV size is not optimally visualized. Grossly, systolic function is normal in appearance. IVC is dilated suggesting elevated right atrial pressure. Review of Systems Constitutional: Negative for diaphoresis, weight gain and weight loss. HENT: Negative for nosebleeds. Eyes: Negative for visual disturbance. Cardiovascular: Positive for dyspnea on exertion. Negative for chest pain, claudication, cyanosis, irregular heartbeat and leg swelling. Respiratory: Positive for shortness of breath. Negative for cough and wheezing. Hematologic/Lymphatic: Negative for bleeding problem. Does not bruise/bleed easily. Skin: Negative for rash. Musculoskeletal: Negative for myalgias. Gastrointestinal: Negative for jaundice, melena, nausea and vomiting. Genitourinary: Negative for hematuria. Neurological: Negative for dizziness, headaches and weakness. Psychiatric/Behavioral: Negative for altered mental status. Current Outpatient Medications: amLODIPine 5 MG Tab, Take 2 tablets by mouth daily with breakfast., Disp: , Rfl: aspirin 81 MG Tab, Take 1 tablet by mouth daily with breakfast. Non-coated, Disp: , Rfl: Atorvastatin 40 MG tablet, Take 1 tablet by mouth at bedtime., Disp: , Rfl: budesonide-formoterol 160-4.5 mcg/puff Aerosol inhaler, Inhale 2 puffs every 12 hours., Disp: , Rfl: Cholecalciferol (VITAMIN D3) 400 UNITS Cap, Take 1 capsule by mouth daily with breakfast., Disp: 30Cap, Rfl: clopidogrel 75 MG Tab tablet, Take 1 tablet by mouth daily., Disp: , Rfl: diphenhydrAMINE 25 MG Tab tablet, Take 1 tablet by mouth every 6 hours as needed., Disp: , Rfl: docusate 100 MG Cap, take 1 Cap by mouth every 12 hours., Disp: 60 Cap, Rfl: 0 Fexofenadine 180 MG tablet, Take 1 tablet by mouth daily with breakfast., Disp: , Rfl: finasteride 5 MG Tab tablet, Take 1 tablet by mouth daily., Disp: , Rfl: finasteride 5 MG Tab, Take 1 tablet by mouth at bedtime., Disp: , Rfl: FLUoxetine 10 MG capsule, Take 2 capsules by mouth daily., Disp: , Rfl: fluticasone 50 MCG/ACT Suspension, 4 sprays by Nasal route at bedtime. Reported on 07/03/2016, Disp:, Rfl: furOSEmide 20 MG tablet, Take 1 tablet by mouth daily with breakfast., Disp: , Rfl: guaiFENesin 600 MG Tab SR 12 HR tablet SR, Take 1 tablet by mouth 2 times daily., Disp: , Rfl: ipratropium-albuterol 0.5-2.5 (3) MG/3ML nebulizer solution, Take 3 mL by nebulization every 6 hours as needed., Disp: , Rfl: losartan 100 MG tablet, Take 1 tablet by mouth daily with breakfast., Disp: , Rfl: meloxicam 15 MG Tab, Take 1 tablet by mouth at bedtime. Reported on 07/03/2016, Disp: , Rfl: metformin 500 MG Tab, Take 1 tablet by mouth every 12 hours., Disp: , Rfl: metoprolol 50 MG tab regular release, Take 1 tablet by mouth every 12 hours., Disp: , Rfl: mirtazapine 15 MG Tab tablet, Take 1 tablet by mouth At bedtime., Disp: , Rfl: montelukast 10 MG Tab, Take 1 tablet by mouth at bedtime., Disp: , Rfl: Multiple Vitamins-Minerals (EYE-ASAF PLUS LUTEIN) Cap, Take 1 capsule by mouth at bedtime., Disp: ,Rfl: naproxen 375 MG Tab, take 1 tablet by mouth as needed for Headaches., Disp: 30 tablet, Rfl: 1 Nutritional Supplements (BLADDER 2.2) Tab, Take 1 tablet by mouth every 12 hours. Reported on 07/03/2016, Disp: , Rfl: omeprazole [address] capsule, Take 1 capsule by mouth daily every morning., Disp: , Rfl: ondansetron 4 MG Tab Dispersible tablet, Take 1 tablet by mouth every 4 hours as needed for Nausea., Disp: 2 tablet, Rfl: 0 oxybutynin 5 MG Tab, Take 1 tablet by mouth 3 times daily as needed for Bladder Spasm., Disp: 30 tablet, Rfl: 0 oxyCODONE-acetaminophen 5-325 MG Tab, take 1-2 Tabs by mouth every 4 hours as needed. Indications: Moderate to Moderately Severe Pain (Patient taking differently: Take 1-2 tablets by mouth every 4 hours as needed.), Disp: 60 Tab, Rfl: 0 polyethylene glycol Pack, take 1 Packet by mouth daily as needed., Disp: 20 Packet, Rfl: 2 sertraline 50 MG Tab, Take 1 tablet by mouth at bedtime., Disp: , Rfl: tiotropium 18 MCG inhalation capsule, Inhale 1 capsule at bedtime. Reported on 07/03/2016, Disp: , Rfl: topiramate (TOPAMAX) 50 MG Tab, take 1 tablet by mouth at bedtime., Disp: 90 tablet, Rfl: 2 traMADol 50 MG Tab, take 1 tablet by mouth every 4 hours as needed., Disp: 20 tablet, Rfl: 0 warfarin 4 MG tablet, Take 1 tablet by mouth every evening at 6 PM., Disp: , Rfl: Allergies Allergen Reactions Other Hallucination Any high doses of pain pills (i.e oxycodone), and muscle relaxer Penicillins Swelling Full body edema, received 4 injections of adrenalin-severe reaction in the late 1960s Morphine Hallucination Past Medical History: Diagnosis Date Amaurosis fugax of right eye 05/23/2010 Aortic stenosis Benign prostatic hyperplasia Bladder cancer Surgery x 2; BCG, recurrence 2011 Carpal tunnel syndrome Chronic sinusitis Colon polyp Constipation COPD (chronic obstructive pulmonary disease) Degenerative arthritis of cervical spine Dependent edema Depression with anxiety Diabetes mellitus, type 2 Dysphagia Intra-op EGD 08/17 negative Empyema 11/28/2011 pneumonia GERD (gastroesophageal reflux disease) Hearing loss sensory, bilateral Heartburn HLD (hyperlipidemia) HTN (hypertension) Hyperplasia of prostate with lower urinary tract symptoms (LUTS) Migraine with aura 03/25/2010 Neuropathy, peripheral numb and tingling on sole of left foot SANJU on CPAP biPAP Osteoarthritis Stroke 03/25/2011 TIA (transient ischemic attack) 05/2008, possible 06/02 has follow up with neurologist next month Vitamin D deficiency Past Surgical History: Procedure Laterality Date CYSTOURETHROSCOPY W/ FULGURATION/RESECTION LESION BLADDER (TURB) N/A 04/26/2022 Laterality: N/A; Surgeon: Neno Domínguez MD; Location: [facility] CYSTOURETHROSCOPY W/ FULGURATION/RESECTION LESION BLADDER (TURB) CYSVIEW N/A 08/13/2018 Laterality: N/A; Surgeon: Benigno Cardoso MD; Location: [facility] OR UROGRAPHY/PYELOGRAPHY RETROGRADE Bilateral 08/13/2018 Laterality: Bilateral; Surgeon: Benigno Cardoso MD; Location: [facility] OR CYSTOURETHROSCOPY W/ FULGURATION/RESECTION LESION BLADDER (TURB) N/A 08/02/2014 Laterality: N/A; Surgeon: Benigno Cardoso MD; Location: [facility] OR UROGRAPHY/PYELOGRAPHY RETROGRADE Bilateral 08/02/2014 Laterality: Bilateral; Surgeon: Benigno Cardoso MD; Location: [facility] MAIN OR RELEASE CARPAL TUNNEL Left 2013Feb 12 RELEASE CARPAL TUNNEL Right 2013Jan 29 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 2013Oct 06 Medtronic LNQ11, serial [id number], Leon Landers MD [phone] ECHOCARDIOGRAM (OUTSIDE) 2013May 05 normal RA, normal RV and RV systolic function, no PFO by color Doppler or agitated saline, mild LAE, normal LV and LV systolic function, LVEF 63%, mild LV diastolic dysfunction, normally functioning bioprosthetic AV, no pulmonary HTN LUNG SURGERY Right 2011Dec 02 thoracotomy, pneumonia CYSTOSCOPY 2011 bladder cancer INTRACAPSULAR CATARACT EXTRACTION Right 2012 REMV CATARACT EXTRACAP,INSERT LENS Left 2010 AVR W/ TISSUE VALVE 2010August 17 model # 3300TFX, 23-mm Jay-Viramontes CYSTOSCOPY 2010 CYSTOSCOPY 2007 CHOLECYSTECTOMY LAPAROSCOPIC SEPTOPLASTY ESS UVULOPALATOPHARYNGOPLASTY (UVPP) TONSILECTOMY Family History Problem Relation Age of Onset Heart Disease - Other Mother Hypertension Mother Breast Cancer Mother Hypertension Father Diabetes Father Anesth Problems Neg Hx Bleeding or Clotting Problems Neg Hx Social History Socioeconomic History Marital status: Spouse name: Not on file Number of children: 2 Years of education: Not on file Highest education level: Not on file 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 Smoking status: Former Packs/day: 1.50 Years: 45.00 Pack years: 67.50 Types: Cigarettes Quit date: 07/05/1996 Years since quittin.8 Smokeless tobacco: Former Types: Chew Quit date: 07/05/1996 Vaping Use Vaping Use: Never used Substance and Sexual Activity Alcohol use: No Comment: On 06/17/2014 reports less and 1 in prior year, never heavy or regular Drug use: No Sexual activity: Not on file Other Topics Concern Service Not Asked Blood Transfusions No Comment: On 06/17/2014 accepts Caffeine Concern No Comment: 1/2 pot on work days 06/17/2014 Occupational Exposure Yes Comment: dust, fumes, petroleum chemicals 06/17/2014 Hobby Hazards Not Asked Sleep Concern Not Asked Stress Concern Not Asked Weight Concern No Comment: stable 06/17/2014 Special Diet Not Asked Back Care Not Asked Exercise No Comment: active 06/17/2014 Bike Helmet Not Asked Seat Belt Not Asked Domestic Violence Not Asked Social History Narrative Not on file Social Determinants of Health Financial Resource Strain: Not on file Food Insecurity: Not on file Transportation Needs: Not on file Physical Activity: Not on file Stress: Not on file Social Connections: Not on file Intimate Partner Violence: Not on file Housing Stability: Not on file The following historical elements were reviewed by a provider in the specific [facility] hagan and updated as appropriate: . On physcial exam today, the vital signs are as follows: BP 140/88 Pulse 84 Wt 83 kg (183 lb) SpO2 96% BMI 24.81 kg/m Smoking Status Former Body mass index is 24.81 kg/m .. Physical Exam Constitutional: Appearance: He is not ill-appearing, toxic-appearing or diaphoretic. HENT: Head: Normocephalic and atraumatic. Neck: Vascular: No carotid bruit. Cardiovascular: Rate and Rhythm: Normal rate and regular rhythm. Pulses: Carotid pulses are on the right side with bruit and on the left side with bruit. Heart sounds: No murmur heard. No friction rub. No gallop. Pulmonary: Effort: No respiratory distress. Breath sounds: No wheezing, rhonchi or rales. Chest: Chest wall: No tenderness. Abdominal: General: Abdomen is flat. Bowel sounds are normal. There is no distension. Palpations: Abdomen is soft. Tenderness: There is no abdominal tenderness. Musculoskeletal: General: No swelling or tenderness. Right lower leg: No edema. Left lower leg: No edema. Skin: Coloration: Skin is not pale. Findings: No erythema or rash. Neurological: General: No focal deficit present. Mental Status: He is oriented to person, place, and time. Mental status is at baseline. Psychiatric: Mood and Affect: Mood normal. Relevant diagnostic data includes the following: Lab Results Component Value Date CHOLESTEROL 105 10/31/2010 TRIG 77 10/31/2010 HDL 31 (L) 10/31/2010 LDLCALC 59 10/31/2010 NHCHOL 74 10/31/2010 Lab Results Component Value Date SODIUM 140 04/28/2022 POTASSIUM 3.8 04/28/2022 CHLORIDE 104 04/28/2022 CO2 29 04/28/2022 BUN 12 04/28/2022 CREATSERUM 1.13 04/28/2022 GLUCOSE 177 (H) 04/28/2022 Lab Results Component Value Date HGBA1C 5.7 (H) 08/06/2018 EKG interpretation Reviewed Testing In summary, Mr. Cottrell is managed today for the following issues: HTN (hypertension) At goal Will cont home meds Cerebrovascular accident (CVA) Hx of stroke Gait imbalance HLD (hyperlipidemia) Cont statin S/P AVR (aortic valve replacement) Will repeat TTE Cont coumadin Equivalent angina Symptoms are progressing Will check TTE Will check stress test ECG reviewed, abnormal I have ordered the following: Orders Placed This Encounter VASC DUPLEX CAROTID BILATERAL UT ECG, CLINIC PERFORMED We will plan on Return in about 3 months (around 08/15/2022).. If I can be of any further assistance, please do not hesitate to contact me. Sincerely, Juan Wilson MD [facility] documented in this encounterSWAIN COMMUNITY [id number] Procedure note* Juan Wilson MD - 05/18/2022 11:20 AM ESTAssociated Order(s): UT ELECTROCARDIOGRAM, COMPLETE NSR at [address] deviations in inferior and lateral leads [id number] Procedure note* Juan Wilson MD - 05/18/2022 11:20 AM ESTAssociated Order(s): UT ELECTROCARDIOGRAM, COMPLETE NSR at [address] deviations in inferior and lateral leads documented in this [facility]02-24-2023 Procedure note* Juan Wilson MD - 05/18/2022 11:20 AM ESTAssociated Order(s): UT ELECTROCARDIOGRAM, COMPLETE NSR at [address] deviations in inferior and lateral leads documented in this [facility]02-24-2023 Progress note* Result Encounter Note - Rosalie Soares RN - 05/18/2022 11:20 AM EST Pt scheduled w/ on 06/26/22. [id number] Physician Emergency department Note* Juan Carlos Hhan MD - 04/28/2022 10:06 AM EST Images from the original note were not included. History Chief Complaint Patient presents with Constipation Patient reports that he had surgery on bladder cancer two days ago, hasnt been able to poop since Saturday, feels the urge but is unable to get anything out. HPI [age] YEAR MALE WITH PAST MEDICAL HISTORY DELINEATED BELOW, RICE BY HIMSELF BY EMS FROM HOME TO THE ER AT [facility] WITH A CHIEF COMPLAINT OF CONSTIPATION. PATIENT RECENTLY HAD A BLADDER CANCER SURGERY PERFORMED AT [facility] BY DR. DOMÍNGUEZ, AND WAS DISCHARGED HOME. IT WAS LAPAROSCOPIC. PATIENT SAYS THAT HE HAS BEEN ABLE TO HAVE A BOWEL MOVEMENT SINCE. HIS APPETITE IS DOWN. DENIES NAUSEA VOMITING. EMS SAID BED HE HAD A PAIN BEFORE STOOLING BUT PATIENT DENIESTHIS. HE SAID HE HAS HAD SOME GAS PER RECTUM BUT VERY LITTLE. NO FEVER, CHILLS, SHORTNESS BREATH, CHEST PAIN PATIENT DOES NOT RECALL BEING ON NARCOTIC PAIN MEDICATIONS. PATIENT SAYS HE FEELS PRETTY GOOD RIGHT NOW JUST CAN NOT POOP. Past Medical History: Diagnosis Date Amaurosis fugax of right eye 05/23/2010 Aortic stenosis Benign prostatic hyperplasia Bladder cancer Surgery x 2; BCG, recurrence 2011 Carpal tunnel syndrome Chronic sinusitis Colon polyp Constipation COPD (chronic obstructive pulmonary disease) Degenerative arthritis of cervical spine Dependent edema Depression with anxiety Diabetes mellitus, type 2 Dysphagia Intra-op EGD 08/17 negative Empyema 11/28/2011 pneumonia GERD (gastroesophageal reflux disease) Hearing loss sensory, bilateral Heartburn HLD (hyperlipidemia) HTN (hypertension) Hyperplasia of prostate with lower urinary tract symptoms (LUTS) Migraine with aura 03/25/2010 Neuropathy, peripheral numb and tingling on sole of left foot SANJU on CPAP biPAP Osteoarthritis Stroke 03/25/2011 TIA (transient ischemic attack) 05/2008, possible 06/02 has follow up with neurologist next month Vitamin D deficiency Past Surgical History: Procedure Laterality Date CYSTOURETHROSCOPY W/ FULGURATION/RESECTION LESION BLADDER (TURB) N/A 04/26/2022 Laterality: N/A; Surgeon: Neno Domínguez MD; Location: [facility] CYSTOURETHROSCOPY W/ FULGURATION/RESECTION LESION BLADDER (TURB) CYSVIEW N/A 08/13/2018 Laterality: N/A; Surgeon: Benigno Cardoso MD; Location: [facility] MAIN OR UROGRAPHY/PYELOGRAPHY RETROGRADE Bilateral 08/13/2018 Laterality: Bilateral; Surgeon: Benigno Cardoso MD; Location: [facility] MAIN OR CYSTOURETHROSCOPY W/ FULGURATION/RESECTION LESION BLADDER (TURB) N/A 08/02/2014 Laterality: N/A; Surgeon: Benigno Cardoso MD; Location: [facility] MAIN OR UROGRAPHY/PYELOGRAPHY RETROGRADE Bilateral 08/02/2014 Laterality: Bilateral; Surgeon: Benigno Cardoso MD; Location: [facility] MA[facility] OR RELEASE CARPAL TUNNEL Left 2013Feb 12 RELEASE CARPAL TUNNEL Right 2013Jan 29 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 2013Oct 06 Medtronic LNQ11, serial [id number], Leon Landers MD [phone] ECHOCARDIOGRAM (OUTSIDE) 2013May 05 normal RA, normal RV and RV systolic function, no PFO by color Doppler or agitated saline, mild LAE, normal LV and LV systolic function, LVEF 63%, mild LV diastolic dysfunction, normally functioning bioprosthetic AV, no pulmonary HTN LUNG SURGERY Right 2011Dec 02 thoracotomy, pneumonia CYSTOSCOPY 2011 bladder cancer INTRACAPSULAR CATARACT EXTRACTION Right 2011 REMV CATARACT EXTRACAP,INSERT LENS Left 2010 AVR W/ TISSUE VALVE 2010August 17 model # 3300TFX, 23-mm Jay-Viramontes CYSTOSCOPY 2009 CYSTOSCOPY 2007 CHOLECYSTECTOMY LAPAROSCOPIC SEPTOPLASTY ESS UVULOPALATOPHARYNGOPLASTY (UVPP) TONSILECTOMY Family History Problem Relation Age of Onset Heart Disease - Other Mother Hypertension Mother Breast Cancer Mother Hypertension Father Diabetes Father Anesth Problems Neg Hx Bleeding or Clotting Problems Neg Hx Social History Tobacco Use Smoking status: Former Packs/day: 1.50 Years: 45.00 Pack years: 67.50 Types: Cigarettes Quit date: 07/05/1996 Years since quittin.8 Smokeless tobacco: Former Types: Chew Quit date: 07/05/1996 Vaping Use Vaping Use: Never used Substance Use Topics Alcohol use: No Comment: On 06/17/2014 reports less and 1 in prior year, never heavy or regular Drug use: No Review of Systems Gastrointestinal: Positive for abdominal pain and constipation. Negative for abdominal distention. All other systems reviewed and are negative. Physical Exam BP (!) 120/92 Pulse 82 Temp 97.9 F (36.6 C) (Oral) Resp 16 Ht 1.829 m (6' 0.01") Wt 84 kg(185 lb 3.2 oz) SpO2 94% BMI 25.11 kg/m Smoking Status Former Physical Exam Vitals and nursing note reviewed. Constitutional: General: He is not in acute distress. Appearance: Normal appearance. He is normal weight. HENT: Head: Normocephalic and atraumatic. Right Ear: External ear normal. Left Ear: External ear normal. Nose: Nose normal. Mouth/Throat: Mouth: Mucous membranes are dry. Pharynx: Oropharynx is clear. Eyes: Pupils: Pupils are equal, round, and reactive to light. Cardiovascular: Rate and Rhythm: Normal rate and regular rhythm. Pulses: Normal pulses. Heart sounds: Normal heart sounds. Pulmonary: Effort: Pulmonary effort is normal. Breath sounds: Normal breath sounds. Abdominal: General: Bowel sounds are normal. There is no distension. Palpations: Abdomen is soft. Tenderness: There is no abdominal tenderness. Hernia: No hernia is present. Musculoskeletal: General: Normal range of motion. Cervical back: Normal range of motion and neck supple. Skin: General: Skin is dry. Capillary Refill: Capillary refill takes less than 2 seconds. Neurological: General: No focal deficit present. Mental Status: He is alert and oriented to person, place, and time. Psychiatric: Mood and Affect: Mood normal. Behavior: Behavior normal. ED Course ED Course as of 04/28/22 1329 Sat Apr 28, 2022 1053 LIPASE REVIEWED AND NORMAL 1053 HEPATIC FUNCTION PANEL(!) REVIEWED AND NORMAL 1053 AMYLASE(!) REVIEWED AND NORMAL 1053 BASIC METABOLIC PANEL(!) REVIEWED AND ELEVATED GLUCOSE OF 177 OTHERWISE THE REMAINDER IS WITHIN NORMAL LIMITS 1054 CT ABDOMEN/PELVIS WITHOUT CONTRAST IMPRESSION: No acute process identified. Normal amount of fecal material in the colon. Evidence of a prior granulomatous disease. Status post cholecystectomy. Bilateral renal calculi without hydronephrosis. 1.9 cm cyst the upper pole of the right kidney. Small hiatal hernia. 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 Moderate enlargement of the prostate. Small fat containing left inguinal hernia containing some herniation of colonic diverticuli. 1054 PATIENT'S ED WORKUP SO FAR SHOWS A MILD LEUKOCYTOSIS HOWEVER A ABDOMINAL PELVIC CT SCAN WITH NO ACUTE PROCESS OR SIGNS OF LARGE STOOL BURDEN. I WILL ORDER SOAPSUDS ENEMA AND RE-EVALUATE PATIENT. 1129 URINE DIPSTICK WITH REFLEX MICROSCOPY(!) URINALYSIS SHOWS HEMATURIA WHICH IS CONSISTENT AFTER RECENT BLADDER SURGERY BUT NO SIGNS OF ACUTE INFECTION 1145 CBC AND ELECTRONIC DIFF(!) REVIEWED WITHIN NORMAL LIMITS 1328 PATIENT FEELS MUCH BETTER AFTER THE ENEMA. HE WISHES TO GO HOME. WILL DISCHARGE HOME WITH A PRESCRIPTION FOR LACTULOSE FOR 2 DAYS. PATIENT STABLE FOR DISCHARGE HOME AND OUTPATIENT FOLLOW-UP Procedures Medical Decision Making PATIENT STATUS POST BLADDER CANCER SURGERY PERFORMED BY UROLOGY AT [place] ON SATURDAY. STATES NO BOWEL MOVEMENT SINCE SATURDAY. ALTHOUGH HE HAS BEEN ABLE TO PASS SOME GAS. DECREASED APPETITE BUT NO NAUSEA VOMITING FEVER CHILLS. DENIES ANY PAIN AT THIS TIME. DENIES DISTENSION. ABDOMEN IS SURGICALLY BENIGN. LAPAROSCOPIC SITES ARE HEALING WELL. PATIENT DOES APPEAR DEHYDRATED GET A L OF NORMAL SALINE.WILL GET SCREENING LABS AND CT SCAN NONCONTRAST OF THE ABDOMEN. WORKUP IN PROGRESS, DISPOSITION PENDING Amount and/or Complexity of Data Reviewed Independent Historian: EMS External Data Reviewed: notes. Details: EPIC NOTES REVIEWED Labs: ordered. Decision-making details documented in ED Course. Radiology: ordered and independent interpretation performed. Decision-making details documented in ED Course. Risk Prescription drug management. Juan Carlos Hahn MD 04/28/22 1010 [id number] Emergency department Note* Juan Carlos Hahn MD - 04/28/2022 10:06 AM EST Images from the original note were not included. History Chief Complaint Patient presents with Constipation Patient reports that he had surgery on bladder cancer two days ago, hasnt been able to poop since Saturday, feels the urge but is unable to get anything out. HPI [age] YEAR MALE WITH PAST MEDICAL HISTORY DELINEATED BELOW, RICE BY HIMSELF BY EMS FROM HOME TO THE ER AT [facility] WITH A CHIEF COMPLAINT OF CONSTIPATION. PATIENT RECENTLY HAD A BLADDER CANCER SURGERY PERFORMED AT [place] BY DR. DOMÍNGUEZ, AND WAS DISCHARGED HOME. IT WAS LAPAROSCOPIC. PATIENT SAYS THAT HE HAS BEEN ABLE TO HAVE A BOWEL MOVEMENT SINCE. HIS APPETITE IS DOWN. DENIES NAUSEA VOMITING. EMS SAID BED HE HAD A PAIN BEFORE STOOLING BUT PATIENT DENIESTHIS. HE SAID HE HAS HAD SOME GAS PER RECTUM BUT VERY LITTLE. NO FEVER, CHILLS, SHORTNESS BREATH, CHEST PAIN PATIENT DOES NOT RECALL BEING ON NARCOTIC PAIN MEDICATIONS. PATIENT SAYS HE FEELS PRETTY GOOD RIGHT NOW JUST CAN NOT POOP. Past Medical History: Diagnosis Date Amaurosis fugax of right eye 05/23/2010 Aortic stenosis Benign prostatic hyperplasia Bladder cancer Surgery x 2; BCG, recurrence 2011 Carpal tunnel syndrome Chronic sinusitis Colon polyp Constipation COPD (chronic obstructive pulmonary disease) Degenerative arthritis of cervical spine Dependent edema Depression with anxiety Diabetes mellitus, type 2 Dysphagia Intra-op EGD 08/17 negative Empyema 11/28/2011 pneumonia GERD (gastroesophageal reflux disease) Hearing loss sensory, bilateral Heartburn HLD (hyperlipidemia) HTN (hypertension) Hyperplasia of prostate with lower urinary tract symptoms (LUTS) Migraine with aura 03/25/2010 Neuropathy, peripheral numb and tingling on sole of left foot SANJU on CPAP biPAP Osteoarthritis Stroke 03/25/2011 TIA (transient ischemic attack) 05/2008, possible 06/02 has follow up with neurologist next month Vitamin D deficiency Past Surgical History: Procedure Laterality Date CYSTOURETHROSCOPY W/ FULGURATION/RESECTION LESION BLADDER (TURB) N/A 04/26/2022 Laterality: N/A; Surgeon: Neno Domínguez MD; Location: [facility] OR CYSTOURETHROSCOPY W/ FULGURATION/RESECTION LESION BLADDER (TURB) CYSVIEW N/A 08/13/2018 Laterality: N/A; Surgeon: Benigno Cardoso MD; Location: [facility] MAIN OR UROGRAPHY/PYELOGRAPHY RETROGRADE Bilateral 08/13/2018 Laterality: Bilateral; Surgeon: Benigno Cardoso MD; Location: [facility] MAIN OR CYSTOURETHROSCOPY W/ FULGURATION/RESECTION LESION BLADDER (TURB) N/A 08/02/2014 Laterality: N/A; Surgeon: Benigno Cardoso MD; Location: [facility] MAIN OR UROGRAPHY/PYELOGRAPHY RETROGRADE Bilateral 08/02/2014 Laterality: Bilateral; Surgeon: Benigno Cardoso MD; Location: [facility] MAIN OR RELEASE CARPAL TUNNEL Left 2013Feb 12 RELEASE CARPAL TUNNEL Right 2013Jan 29 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 2013Oct 06 Medtronic LNQ11, serial [id number], Leon Landers MD [phone] ECHOCARDIOGRAM (OUTSIDE) 2013May 05 normal RA, normal RV and RV systolic function, no PFO by color Doppler or agitated saline, mild LAE, normal LV and LV systolic function, LVEF 63%, mild LV diastolic dysfunction, normally functioning bioprosthetic AV, no pulmonary HTN LUNG SURGERY Right 2011Dec 02 thoracotomy, pneumonia CYSTOSCOPY 2012 bladder cancer INTRACAPSULAR CATARACT EXTRACTION Right 2012 REMV CATARACT EXTRACAP,INSERT LENS Left 2010 AVR W/ TISSUE VALVE 2010August 17 model # 3300TFX, 23-mm Jay-Viramontes CYSTOSCOPY 2010 CYSTOSCOPY 2007 CHOLECYSTECTOMY LAPAROSCOPIC SEPTOPLASTY ESS UVULOPALATOPHARYNGOPLASTY (UVPP) TONSILECTOMY Family History Problem Relation Age of Onset Heart Disease - Other Mother Hypertension Mother Breast Cancer Mother Hypertension Father Diabetes Father Anesth Problems Neg Hx Bleeding or Clotting Problems Neg Hx Social History Tobacco Use Smoking status: Former Packs/day: 1.50 Years: 45.00 Pack years: 67.50 Types: Cigarettes Quit date: 07/05/1996 Years since quittin.8 Smokeless tobacco: Former Types: Chew Quit date: 07/05/1996 Vaping Use Vaping Use: Never used Substance Use Topics Alcohol use: No Comment: On 06/17/2014 reports less and 1 in prior year, never heavy or regular Drug use: No Review of Systems Gastrointestinal: Positive for abdominal pain and constipation. Negative for abdominal distention. All other systems reviewed and are negative. Physical Exam BP (!) 120/92 Pulse 82 Temp 97.9 F (36.6 C) (Oral) Resp 16 Ht 1.829 m (6' 0.01") Wt 84 kg(185 lb 3.2 oz) SpO2 94% BMI 25.11 kg/m Smoking Status Former Physical Exam Vitals and nursing note reviewed. Constitutional: General: He is not in acute distress. Appearance: Normal appearance. He is normal weight. HENT: Head: Normocephalic and atraumatic. Right Ear: External ear normal. Left Ear: External ear normal. Nose: Nose normal. Mouth/Throat: Mouth: Mucous membranes are dry. Pharynx: Oropharynx is clear. Eyes: Pupils: Pupils are equal, round, and reactive to light. Cardiovascular: Rate and Rhythm: Normal rate and regular rhythm. Pulses: Normal pulses. Heart sounds: Normal heart sounds. Pulmonary: Effort: Pulmonary effort is normal. Breath sounds: Normal breath sounds. Abdominal: General: Bowel sounds are normal. There is no distension. Palpations: Abdomen is soft. Tenderness: There is no abdominal tenderness. Hernia: No hernia is present. Musculoskeletal: General: Normal range of motion. Cervical back: Normal range of motion and neck supple. Skin: General: Skin is dry. Capillary Refill: Capillary refill takes less than 2 seconds. Neurological: General: No focal deficit present. Mental Status: He is alert and oriented to person, place, and time. Psychiatric: Mood and Affect: Mood normal. Behavior: Behavior normal. ED Course ED Course as of 04/28/22 1329 Sat Apr 28, 2022 1053 LIPASE REVIEWED AND NORMAL 1053 HEPATIC FUNCTION PANEL(!) REVIEWED AND NORMAL 1053 AMYLASE(!) REVIEWED AND NORMAL 1053 BASIC METABOLIC PANEL(!) REVIEWED AND ELEVATED GLUCOSE OF 177 OTHERWISE THE REMAINDER IS WITHIN NORMAL LIMITS 1054 CT ABDOMEN/PELVIS WITHOUT CONTRAST IMPRESSION: No acute process identified. Normal amount of fecal material in the colon. Evidence of a prior granulomatous disease. Status post cholecystectomy. Bilateral renal calculi without hydronephrosis. 1.9 cm cyst the upper pole of the right kidney. Small hiatal hernia. 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 Moderate enlargement of the prostate. Small fat containing left inguinal hernia containing some herniation of colonic diverticuli. 1054 PATIENT'S ED WORKUP SO FAR SHOWS A MILD LEUKOCYTOSIS HOWEVER A ABDOMINAL PELVIC CT SCAN WITH NO ACUTE PROCESS OR SIGNS OF LARGE STOOL BURDEN. I WILL ORDER SOAPSUDS ENEMA AND RE-EVALUATE PATIENT. 1129 URINE DIPSTICK WITH REFLEX MICROSCOPY(!) URINALYSIS SHOWS HEMATURIA WHICH IS CONSISTENT AFTER RECENT BLADDER SURGERY BUT NO SIGNS OF ACUTE INFECTION 1145 CBC AND ELECTRONIC DIFF(!) REVIEWED WITHIN NORMAL LIMITS 1328 PATIENT FEELS MUCH BETTER AFTER THE ENEMA. HE WISHES TO GO HOME. WILL DISCHARGE HOME WITH A PRESCRIPTION FOR LACTULOSE FOR 2 DAYS. PATIENT STABLE FOR DISCHARGE HOME AND OUTPATIENT FOLLOW-UP Procedures Medical Decision Making PATIENT STATUS POST BLADDER CANCER SURGERY PERFORMED BY UROLOGY AT [place] ON SATURDAY. STATES NO BOWEL MOVEMENT SINCE SATURDAY. ALTHOUGH HE HAS BEEN ABLE TO PASS SOME GAS. DECREASED APPETITE BUT NO NAUSEA VOMITING FEVER CHILLS. DENIES ANY PAIN AT THIS TIME. DENIES DISTENSION. ABDOMEN IS SURGICALLY BENIGN. LAPAROSCOPIC SITES ARE HEALING WELL. PATIENT DOES APPEAR DEHYDRATED GET A L OF NORMAL SALINE.WILL GET SCREENING LABS AND CT SCAN NONCONTRAST OF THE ABDOMEN. WORKUP IN PROGRESS, DISPOSITION PENDING Amount and/or Complexity of Data Reviewed Independent Historian: EMS External Data Reviewed: notes. Details: EPIC NOTES REVIEWED Labs: ordered. Decision-making details documented in ED Course. Radiology: ordered and independent interpretation performed. Decision-making details documented in ED Course. Risk Prescription drug management. Juan Carlos Hahn MD 04/28/22 1010 documented in this encounterSWAIN COMMUNITY [id number] Nurse Note* Susan Baxter RN - 04/26/2022 11:20 AM EST Reviewed discharge instructions with patient and a responsible adult. Voiced understanding. No questions or concerns at this time. Denied further needs. documented in this encounterSWAIN COMMUNITY [id number] Nurse Surgical operation note * Susan Baxter RN - 04/26/2022 11:20 AM EST Reviewed discharge instructions with patient and a responsible adult. Voiced understanding. No questions or concerns at this time. Denied further needs. 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 male with a history of bladder cancer and new tumor. The postoperative course of care was explained. After risks, benefits, and alternatives were discussed, a signed consent was obtained for operative management. Procedure: Patient was prepped and draped in normal sterile fashion. Time-out procedure performed. I then inserted the resectoscope into the patient's bladder. I then encountered a small area of redness on the right lateral wall which was fulgurated. I encountered a 2.2 cm area in the dome of the bladder. I then used the resectoscope to resect this in its entirety. Specimen was removed. Hemostasis was obtained. 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] PROCEDURE PERFORMED Procedure(s) (LRB): TRANSURETHRAL RESECTION OF BLADDER TUMOR (N/A) PRIMARY CLOSURE N/A INTRAOPERATIVE FINDINGS No significant abnormalities SURGEON Surgeon(s) and Role: * Neno Domínguez MD - Primary ANESTHESIOLOGIST Anesthesiologist: Herberth Qiu DO ACCOUNT CLASSIFICATION CLERK: Kayy Cobian CRNA SURGICAL STAFF Mold Designer: Gabriel Walker RN Scrub Person: Elysia Buckner; Mary Kay Huang RN COMPLICATIONS None ESTIMATED BLOOD LOSS None SPECIMENS see ID Type Source Tests Collected by Time Destination 1 : Bladder tumor Permanent TISSUE SURG PATH REQUEST Neno Domínguez MD 04/26/2022 0959 Neno Domínguez MD April 26, 2022 10:06 AM [facility] [id number] Miscellaneous Notes* Op Note - Neno Domínguez MD - 04/26/2022 10:06 AM EST Operative Report Date of Procedure: 04/26/2022 Primary Surgeon: Surgeon(s): Neno Domínguez MD Pre-Op Diagnosis: 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 male with a history of bladder cancer and new tumor. The postoperative course of care was explained. After risks, benefits, and alternatives were discussed, a signed consent was obtained for operative management. Procedure: Patient was prepped and draped in normal sterile fashion. Time-out procedure performed. I then inserted the resectoscope into the patient's bladder. I then encountered a small area of redness on the right lateral wall which was fulgurated. I encountered a 2.2 cm area in the dome of the bladder. I then used the resectoscope to resect this in its entirety. Specimen was removed. Hemostasis was obtained. 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] PROCEDURE PERFORMED Procedure(s) (LRB): TRANSURETHRAL RESECTION OF BLADDER TUMOR (N/A) PRIMARY CLOSURE N/A INTRAOPERATIVE FINDINGS No significant abnormalities SURGEON Surgeon(s) and Role: * Neno Domínguez MD - Primary ANESTHESIOLOGIST Anesthesiologist: Herberth Qiu DO ACCOUNT CLASSIFICATION CLERK: Kayy Cobian CRNA SURGICAL STAFF Mold Designer: Gabriel Walker RN Scrub Person: Elysia Buckner; Mary Kay Huang RN COMPLICATIONS None ESTIMATED BLOOD LOSS None SPECIMENS see ID Type Source Tests Collected by Time Destination 1 : Bladder tumor Permanent TISSUE SURG PATH REQUEST Neno Domínguez MD 04/26/2022 0959 Neno Domínguez MD April 26, 2022 10:06 AM documented in this encounterSWAIN COMMUN[facility] [id number] Hospital Discharge instructions* Discharge Instructions* Susan Baxter RN - 04/26/2022 10:05 AM EST Patient can expect some blood in his urine for the next 2-3 weeks. Please call with any fever greater than 101.5. Will call the patient with pathology results for follow-up visit. Okay to resume any blood thinning medications tomorrow as long as his urine remains clear. Precautions for Anesthesia: You may be drowsy, dizzy or light headed. Due to the breathing tube, you may have a sore throat, jaw discomfort or muscle ache. Do not drive, operate machinery, power tools or make important decisions for 24 hours or while taking narcotics. Someone will need to be with you for the next 24 hours. Diet: Start with clear liquids and increase diet as tolerated. When to Call the Doctor: If your condition changes or you experience any of the following symptoms, notify your physician immediately, or go to the nearest emergency department.. New or worsening pain Fever greater than 100.5F Persistent nausea and vomiting Extreme dizziness Chest pain Shortness of breath or difficulty breathing Increased drainage, bleeding, redness, swelling or heat from your wound or incision Medication List: You have been given a list of your current medications. If you have changes in your medications, update your list. Provide a list of current medications to your primary care provider. Carry a copy of your current medications with you in case of an emergency. If you are prescribed antibiotics, do not stop them without talking to your provider. Follow-up Appointments: Follow-up in the office as directed. If there is not an appointment listed, please call your physician or surgeon and schedule a follow-up appointment. documented in this encounterSWAIN COMMUNITY [id number] History and physical note* Neno Domínguez MD - 04/26/2022 8:40 AM EST Urology Pre-Operative H&P HPI Mick Cottrell is a 81 y.o. 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 Does not take any blood thinners. Took medications as directed preoperatively. Preoperative urine culture negative. Nothing to eat or drink past midnight. No problems with anesthesia previously. Past Medical History He has a past medical history of Amaurosis fugax of right eye (05/23/2010), Aortic stenosis, Benignprostatic hyperplasia, Bladder cancer, Carpal tunnel syndrome, Chronic sinusitis, Colon polyp, Constipation, COPD (chronic obstructive pulmonary disease), Degenerative arthritis of cervical spine, Dep endent edema, Depression with anxiety, Diabetes mellitus, type 2, Dysphagia, Empyema (11/28/2011), GERD (gastroesophageal reflux disease), Hearing loss sensory, bilateral, Heartburn, HLD (hyperlipidemia), HTN (hypertension), Hyperplasia of prostate with lower urinary tract symptoms (LUTS), Migrainewith aura (03/25/2010), Neuropathy, peripheral, SANJU on CPAP, Osteoarthritis, Stroke (03/25/2011), TIA (transient ischemic attack) (05/2008, possible 06/02), and Vitamin D deficiency. He has no past medical history of Pacemaker. Past Surgical History He has a past surgical history that includes septoplasty ess; uvulopalatopharyngoplasty (uvpp) tonsillectomy; cystoscopy (2007); cholecystectomy laparoscopic; cystoscopy (2009); avr w/ tissue valve (2010August 17); remv cataract extracap,insert lens (Left, 2010); lung surgery (Right, 2011Dec 02); cystoscopy (2011); intracapsular cataract extraction (Right, 2011); echocardiogram (outside) (); director of cardiac rehabilitation (2013Oct 06); release carpal tunnel (Right, 2013Jan 29); release carpal tunnel (Left, 2013Feb 12); cystourethroscopy w/ fulguration/resection lesion bladder (turb) (N/A, 07/23); urography/pyelography retrograde (Bilateral, 08/02/2014); cystourethroscopy w/ fulguration/resection lesion bladder (turb) cysview (N/A, 08/13/2018); and urography/pyelography retrograde (Bilateral, 08/13/2018). Medications He has a current medication list which includes the following prescription(s): amlodipine, aspirin,atorvastatin, budesonide-formoterol, vitamin d3, clopidogrel, diphenhydramine, docusate, fexofenadine, finasteride, finasteride, fluoxetine, fluticasone, furosemide, guaifenesin, ipratropium-albuterol, losartan, meloxicam, metformin, metoprolol, mirtazapine, montelukast, eye-asaf plus lutein, naproxen, bladder 2.2, omeprazole, ondansetron, oxybutynin, oxycodone-acetaminophen, polyethylene glycol,sertraline, tiotropium, topiramate, tramadol, and warfarin, and the following Facility-AdministeredMedications: lactated ringers and levofloxacin. Allergies He is allergic to other, penicillins, and morphine. Social History He reports that he quit smoking about 25 years ago. His smoking use included cigarettes. He has a 67.50 pack-year smoking history. He quit smokeless tobacco use about 25 years ago. His smokeless tobacco use included chew. He reports that he does not drink alcohol and does not use drugs. Review of Systems Constitutional: No fevers or chills Skin: Negative for rash Endocrine: No heat/cold intolerance Cardiovascular: Negative for chest pain or dyspnea on exertion Respiratory: Negative for shortness of breath or wheezing Gastrointestinal: No constipation, nausea or vomiting Genitourinary: Negative for new lower urinary tract symptoms, current gross hematuria or dysuria. Musculoskeletal: No flank pain Neurological: Negative for frequent headaches or dizziness Lymph/Heme: Negative for leg swelling or calf pain. Physical Exam BP (!) 172/91 (BP Position: Lying) Pulse 83 Temp 98.5 F (36.9 C) (Oral) Resp 18 Ht 1.829 m (6') Wt 83 kg (183 lb) SpO2 96% BMI 24.82 kg/m Smoking Status Former Constitutional: NAD, WDWN. HEENT: NCAT. Conjunctivae normal. MMM. Cardiovascular: Regular rate. Pulmonary/Chest: Respirations are even and non-labored bilaterally. Abdominal: Soft. No distension, tenderness, masses or guarding. Neurological: A + O x 3. Cranial Nerves II-XII grossly intact. Extremities: KATHERYN x 4, Warm. No clubbing. No cyanosis. Skin: [place], warm and dry. No rashes noted. Psychiatric: Normal mood and affect Labs Lab Results Component Value Date SODIUM 142 08/06/2018 POTASSIUM 3.9 08/06/2018 CHLORIDE 106 08/06/2018 CO2 30 08/06/2018 BUN 22 08/06/2018 CREATSERUM 1.06 08/06/2018 GLUCOSE 149 (H) 04/26/2022 Lab Results Component Value Date WBC 7.05 08/06/2018 HGB 15.3 08/06/2018 HCT 46.2 08/06/2018 PLATELET 163 08/06/2018 MCV 97.1 (H) 08/06/2018 No results found for: PSA Lab Results Component Value Date CREATSERUM 1.06 08/06/2018 CREATSERUM 0.97 01/14/2018 CREATSERUM 0.89 11/06/2014 CREATSERUM 0.98 11/05/2014 CREATSERUM 0.61 10/17/2011 CREATSERUM 0.73 08/11/2010 Assessment Mick Cottrell is a 81 y.o. 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 To OR for Procedure(s): CYSTOURETHROSCOPY WITH FULGURATION/RESECTION LESION BLADDER (TURB) Neno Domínguez MD 04/26/2022 8:40 AM [id number] History and physical note* Neno Domínguez MD - 04/26/2022 8:40 AM EST Urology Pre-Operative H&P HPI Mick Cottrell is a 81 y.o. 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 Does not take any blood thinners. Took medications as directed preoperatively. Preoperative urine culture negative. Nothing to eat or drink past midnight. No problems with anesthesia previously. Past Medical History He has a past medical history of Amaurosis fugax of right eye (05/23/2010), Aortic stenosis, Benignprostatic hyperplasia, Bladder cancer, Carpal tunnel syndrome, Chronic sinusitis, Colon polyp, Constipation, COPD (chronic obstructive pulmonary disease), Degenerative arthritis of cervical spine, Dep endent edema, Depression with anxiety, Diabetes mellitus, type 2, Dysphagia, Empyema (11/28/2011), GERD (gastroesophageal reflux disease), Hearing loss sensory, bilateral, Heartburn, HLD (hyperlipidemia), HTN (hypertension), Hyperplasia of prostate with lower urinary tract symptoms (LUTS), Migrainewith aura (03/25/2010), Neuropathy, peripheral, SANJU on CPAP, Osteoarthritis, Stroke (03/25/2011), TIA (transient ischemic attack) (05/2008, possible 06/02), and Vitamin D deficiency. He has no past medical history of Pacemaker. Past Surgical History He has a past surgical history that includes septoplasty ess; uvulopalatopharyngoplasty (uvpp) tonsillectomy; cystoscopy (2007); cholecystectomy laparoscopic; cystoscopy (2009); avr w/ tissue valve (2010August 17); remv cataract extracap,insert lens (Left, 2010); lung surgery (Right, 2011Dec 02); cystoscopy (2011); intracapsular cataract extraction (Right, 2011); echocardiogram (outside) (); director of cardiac rehabilitation (2013Oct 06); release carpal tunnel (Right, 2013Jan 29); release carpal tunnel (Left, 2013Feb 12); cystourethroscopy w/ fulguration/resection lesion bladder (turb) (N/A, 07/23); urography/pyelography retrograde (Bilateral, 08/02/2014); cystourethroscopy w/ fulguration/resection lesion bladder (turb) cysview (N/A, 08/13/2018); and urography/pyelography retrograde (Bilateral, 08/13/2018). Medications He has a current medication list which includes the following prescription(s): amlodipine, aspirin,atorvastatin, budesonide-formoterol, vitamin d3, clopidogrel, diphenhydramine, docusate, fexofenadine, finasteride, finasteride, fluoxetine, fluticasone, furosemide, guaifenesin, ipratropium-albuterol, losartan, meloxicam, metformin, metoprolol, mirtazapine, montelukast, eye-asaf plus lutein, naproxen, bladder 2.2, omeprazole, ondansetron, oxybutynin, oxycodone-acetaminophen, polyethylene glycol,sertraline, tiotropium, topiramate, tramadol, and warfarin, and the following Facility-AdministeredMedications: lactated ringers and levofloxacin. Allergies He is allergic to other, penicillins, and morphine. Social History He reports that he quit smoking about 25 years ago. His smoking use included cigarettes. He has a 67.50 pack-year smoking history. He quit smokeless tobacco use about 25 years ago. His smokeless tobacco use included chew. He reports that he does not drink alcohol and does not use drugs. Review of Systems Constitutional: No fevers or chills Skin: Negative for rash Endocrine: No heat/cold intolerance Cardiovascular: Negative for chest pain or dyspnea on exertion Respiratory: Negative for shortness of breath or wheezing Gastrointestinal: No constipation, nausea or vomiting Genitourinary: Negative for new lower urinary tract symptoms, current gross hematuria or dysuria. Musculoskeletal: No flank pain Neurological: Negative for frequent headaches or dizziness Lymph/Heme: Negative for leg swelling or calf pain. Physical Exam BP (!) 172/91 (BP Position: Lying) Pulse 83 Temp 98.5 F (36.9 C) (Oral) Resp 18 Ht 1.829 m (6') Wt 83 kg (183 lb) SpO2 96% BMI 24.82 kg/m Smoking Status Former Constitutional: NAD, WDWN. HEENT: NCAT. Conjunctivae normal. MMM. Cardiovascular: Regular rate. Pulmonary/Chest: Respirations are even and non-labored bilaterally. Abdominal: Soft. No distension, tenderness, masses or guarding. Neurological: A + O x 3. Cranial Nerves II-XII grossly intact. Extremities: KATHERYN x 4, Warm. No clubbing. No cyanosis. Skin: [place], warm and dry. No rashes noted. Psychiatric: Normal mood and affect Labs Lab Results Component Value Date SODIUM 142 08/06/2018 POTASSIUM 3.9 08/06/2018 CHLORIDE 106 08/06/2018 CO2 30 08/06/2018 BUN 22 08/06/2018 CREATSERUM 1.06 08/06/2018 GLUCOSE 149 (H) 04/26/2022 Lab Results Component Value Date WBC 7.05 08/06/2018 HGB 15.3 08/06/2018 HCT 46.2 08/06/2018 PLATELET 163 08/06/2018 MCV 97.1 (H) 08/06/2018 No results found for: PSA Lab Results Component Value Date CREATSERUM 1.06 08/06/2018 CREATSERUM 0.97 01/14/2018 CREATSERUM 0.89 11/06/2014 CREATSERUM 0.98 11/05/2014 CREATSERUM 0.61 10/17/2011 CREATSERUM 0.73 08/11/2010 Assessment Mick Cottrell is a 81 y.o. 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 Pre-Procedure: Indications: urinary hesitancy and bladder cancer Detailed information of all possible complications and side effects were discussed with the patient, these include but not only; UTI, sepsis, hematuria, incontinence, urethral injury and cardiovascular complications. Informed consent was obtained. Does this procedure require a Coral Protocol? Yes. Coral Protocol is required. The patient was given one dose of antibiotics. Urine was collected for testing. Procedure: Procedure performed: cystoscopy The patient was placed supine with all pressure points well padded. Patient was prepped and draped in the usual sterile fashion with Betadine. 10 mL of lidocaine 2% topical gel was inserted into urethra for local anesthesia. A penile clamp was not applied. The flexible cystoscope was lubricated andplaced into the urethral tract under direct visualization. A 360 survey of the bladder was performed. The cystoscope was reflected and the bladder neck and the ureteral orifices were inspected. The findings are detailed below. The cystoscope was removed following any additional procedures documented below. Findings: The urinary meatus appeared normal. There was not a prominent median lobe. The lateral lobes were obstructive in appearance. Tumors observed (dome/anterior wall and right posterior lower wall). No bladder fistula present. No foreign bodies observed. No stones found. No trabeculations were found. Both ureteral orifices were normal in size, shape and position with efflux of clear urine. The urethra was inspected. No foreign body(s) present in urethra. No urethral diverticulum observed. No urethral stricture found. Post Procedure: Patient tolerated procedure with no immediate complications EBL: no blood loss Procedure Comments: Patient will be scheduled for TURBT in the OR * Ingrid Dennis LPN - 04/05/2022 11:00 AM EST Procedure explained to patient. Patient verbalizes understanding.Witnessed patient signed consent for procedure.Post procedure discharge instructions discussed and given to patient., Patient, procedure and site verified , Patient given Ciprofloxacin 500 mg po times 1 dose per standing order per physician. Lot [id number] Exp 12/16 , Prep Betadine , 11 ml lidocaine Glydojet inserted into urethra, 11 ml lidocaine Glydojet inserted into urethra, Lot:[id number] , EXP: 02/15, NDC . , 1000ml Bag Sterile Saline LOT [id number], EXP 05/18 , Fire Hazard: low___, Scope: Olympus Flexible CystoUrethroscope # __[id number]__ assigned to this procedure Time Out:1126 , Start:1126 , Stop: 1127. documented in this [facility]10-31-[address] [address] Discharge Summary Signed PRELIMINARY DRAFT REPORT UNTIL ELECTRONICALLY SIGNED PATIENT: Mick Cottrell MR#: [id number] : 1940 AGE/SEX: 80 / M ADMITTED: 01/22/21 0725 OUTSIDE LOCN: LOCATION: [facility] 2N15-A ATTENDING: Matt Parisi MD cc: Neno Domínguez; Mario Szymanski; Reji Anderson; Grace Gtz; Haroon Patel; Belgica Elizondo; Wilmar Rosales; Darlene Ng; Deion Burks; Gray Moore; Suhail kang; Matt Parisi; Ramesh Stringer; - NOTES TO OUTPATIENT PROVIDER Notes to Outpatient Provider: -R ureteral stent placed after stone extraction. - f/u with urology. -cipro 5 day course for pyelo Orders not resulted at time of discharge: Pending orders 01/21/21 08:57 Surgical Pathology [PTH] Routine 01/22/21 07:12 Culture,Urine [RM] Routine Date of Encounter: 01/22/21 Time of Encounter: 09:00 (estimated) - Discharge Diagnosis (1) Ureteral stone with hydronephrosis Priority: Primary Status: Acute (2) Hypertensive urgency Priority: Secondary Status: Acute (3) Hematuria Priority: Secondary Status: Acute Qualifiers: Qualified Code(s): R31.9 - Hematuria, unspecified (4) MARYLOU (acute kidney injury) Priority: Secondary Status: Acute (5) Diabetes mellitus Priority: Secondary Status: Chronic Qualifiers: Diabetes mellitus type: type 2 Diabetes mellitus ranch hand insulin use: without snf use Diabetes mellitus complication status: without complication Qualified Code(s): E11.9 - Type 2 diabetes mellitus without complications (6) History of aortic valve replacement with bioprosthetic valve Priority: Secondary Status: Chronic (7) Paroxysmal atrial fibrillation Priority: Secondary Status: Chronic (8) DVT prophylaxis Priority: Secondary Status: Acute Hospital course: Mr. Cottrell is a 80 year old male who presented with right groin pain. CT showed 6 mm right ureteral calculus and suspicion for pyonephrosis. Urology was consulted. Stone extraction and stent placem ent was performed on 01/21/21. Patient is to complete 5 days of Cipro for suspected pyelonephritis as he is penicillin allergic. had mild MARYLOU and hematuria. to be discharged with Pyridium and Flomax. BMP in 1 week. f/u with urology. - Constitutional Vitals: Temp Pulse Resp BP Pulse Ox 97.9 F 58 18 155/82 94 01/22/21 06:34 01/22/21 09:21 01/22/21 06:34 01/22/21 06:34 01/22/21 06:34 Exam: gen: no distress. elderly male. cardiac: s1,s2. regular rhythm resp: no nasal cannula in use. minimal crackles in bases abd: soft. not diffusely tender gu: some pink urine in bedside urinal ext: no major amputations observed. no b/l lower extremity pitting edema *some info autopop into note - Discharge Medications Prescriptions: New Tamsulosin [Flomax] 0.4 mg PO DAILY 30 Days #30 capsule Phenazopyridine [Pyridium] 100 mg PO TID PRN #30 tablet PRN Reason: dysruria Ciprofloxacin [Cipro] 500 mg PO BID #8 tablet Continued Aspirin Enteric Coated [Aspirin EC] 81 mg PO DAILY Mirtazapine [Remeron] 15 mg PO HS Albuterol Sulfate [Albuterol HFA Inhaler for Take Home Only] 2 puff IH Q4H PRN PRN Reason: Shortness Of Breath Atorvastatin [Lipitor] 40 mg PO HS Finasteride [Proscar] 5 mg PO DAILY Furosemide [Lasix] 20 mg PO QAM Montelukast [Singulair] 10 mg PO QPM Topiramate [Topamax] 50 mg PO BID Vit C/E/Zn/Coppr/Lutein/Zeaxan [Preservision Areds 2 Softgel] 1 cap PO BID Losartan [Cozaar] 25 mg PO DAILY #30 tablet Ipratropium [ATROVENT Inhaler] 2 puff IH [id number] inhaler Budesonide/Formoterol 160/4.5 [Symbicort 160/4.5] 2 puff IH BIDR inh Cholecalciferol (D-3) [Vitamin D] 1,000 unit PO DAILY tablet Acetaminophen [Tylenol] 650 mg PO Q4H PRN PRN Reason: Pain Chloraseptic [place] [Chloraseptic] 5 spray PO TID Enoxaparin [Lovenox] 40 mg SQ HS Fluticasone Propion/Salmeterol [Wixela 500-50 Inhub] 1 puff IH BID Glucagon,Human Recombinant [Glucagon Emergency Kit] 1 mg IM PRN PRN PRN Reason: BLOOD SUGAR <60 Magnesium Hydroxide [Milk of Magnesia] 1,200 mg PO DAILY PRN PRN Reason: Constipation Metformin HCl [Glucophage] 1,000 mg PO BID Omeprazole [PriLOSEC] 40 mg PO QAM polyethylene glycoL 3350 [MiraLAX] 17 gm PO DAILY Metoprolol [Lopressor] 50 mg PO BID 30 Days #60 tablet Warfarin Sodium 4 mg PO DAILY 30 Days #30 tablet HYDROcodone/Acet 5/325 mg [Ferriday 5-325 mg] 1 tab PO Q6H PRN 3 Days #12 tab PRN Reason: Pain Bisacodyl [Dulcolax] 10 mg PO DAILY PRN tablet PRN Reason: Constipation Docusate [Colace] 100 mg PO BID capsule Magnesium Oxide [Mag-Ox] 400 mg PO BID tablet Home Medications: Aspirin Enteric Coated [Aspirin EC] 81 mg PO DAILY 09/30/15 [History] Mirtazapine [Remeron] 15 mg PO HS 03/05/20 [History] Albuterol Sulfate [Albuterol HFA Inhaler for (more content not included)...[facility]10-30-[address] [address] Operative Note Signed PRELIMINARY DRAFT REPORT UNTIL ELECTRONICALLY SIGNED PATIENT: Mick Cottrell MR#: [id number] : 1940 AGE/SEX: 80 / M ADMITTED: 01/21/21 0040 OUTSIDE LOCN: LOCATION: [facility] 2N15-A ATTENDING: Matt Parisi MD cc: Neno Domínguez; Mario Szymanski; Reji Anderson; Grace Gtz; Haroon Patel; Belgica Elizondo; Wilmar Rosales; Darlene Ng; Deion Burks; Suhail Zamudio; Matt Parisi; Ramesh Stringer; Date of procedure: 01/21/21 Pre-op diagnosis: 6 mm right ureteral stone Post-op diagnosis: same Case Acuity: Urgent/Emergent Infection present at time of surgery: No Procedure: Right ureteroscopic stone extraction using holmium laser lithotripsy Right retrograde pyelogram Right ureteral stent placement Anesthesia: GETA Surgeon: Ramesh Stringer Was there an assistant grocery present: No Estimated blood loss (ml): 0 Specimen: Stone fragments Condition: stable Disposition: PACU Procedure in Detail: PROCEDURE IN DETAIL: Patient was taken back to the operating room, positioned supine on the operating table. Anesthesia was applied without complication. They were moved into dorsal lithotomy. Careful attention was maintained to cushion all pressure points for patient's safety. They were prepped and draped in sterile fashion. Time-out was performed with the proper patient and procedure. A 21-Albanian rigid cystoscope was inserted into the bladder without difficulty. Systematic examination of bladder revealed no abnormalities. The ureteral orifice was cannulated using a 5- Albanian ureteral Catheter and a retrograde pyelogram was performed using Isovue. A filling defect was identified which corresponded to the stone in the distal ureter. In addition the patient had a tortuous ureter.. At that point, a zip wire was placed through the 5-Albanian and confirmed in the renal pelvis with fluoroscopy. An 8-10 dilator was then placed over the zip wire to passively dilate the ureteral orifice and distal ureter. I attempted to pass a semirigid ureteroscope but was unable to reach the stone initially due to the edematous/tortuous ureter. I removed the scope and then re-dilated with an 810 dilator past the level of the stone. Upon reinsertion of the semirigid ureteroscope I was barely able to reach the stone and performed laser lithotripsy using a 200 mcn holmium laser fiber. I was able to fragment the stone into enough pieces to safely basket extract using a 1.9 tip was basketed. Although the stone was difficult to reach I saw no evidence of ureteral injury following the procedure. I did place a 6 x 26 ureteral stent with a dangle string removed. The bladder was drained and the Stone fragments sent for analysis Documented By: Ramesh Stringer MD Signed By: 01/21/21935 DD/ 2 Initialized By: [address]06-01-2011 Evaluation note* Diagnosis Onset Date Resolution Status H/O aortic valve replacement August, acute CAD (coronary artery disease) chronic Diabetes mellitus chronic Dyslipidemia chronic HTN (hypertension) chronic Paroxysmal atrial fibrillation chronic Thrombocytopenia [facility] Work Phone: 1(633) 634-297506-01-2011 Evaluation note* Diagnosis Onset Date Resolution Status Admit Date H/O aortic valve replacement August, acute May 07, 2024 1:09pm CAD (coronary artery disease) chroni c May 07, 2024 1:09pm Diabetes mellitus chronic Februar y 2024 1:09pm Dyslipidemia chronic April 1:09pm HTN (hypertension) chronic Februa ry 2024 1:09pm Paroxysmal atrial fibrillation chron ic May 07, 2024 1:09pm Thrombocytopenia chronic May 07, 2024 1:09pm 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 acute May 29, 2024 2:25pm Diabetes mellitus chronic May 292024 2:25pm [facility] Work Phone: 1(876) 828-382006-01-2011 Evaluation note* Diagnosis Onset Date Resolution Status Admit Date H/O aortic valve replacement August, acute November 05, 2024 11:26am CAD (coronary artery disease) chroni c November 05, 2024 11:26am Dyslipidemia chronic November 05, 2024 11:26am HTN (hypertension) chronic November 05, 2024 11:26am Paroxysmal atrial fibrillation chron ic November 05, 2024 11:26am Thrombocytopenia chronic October 232024 11:26am [facility] Work Phone: Evaluation noteNo assessment information available [facility] Work Phone: Evaluation note* Diagnosis Closed fracture of superior ramus of right pubis, initial encounter- Primary Closed nondisplaced fracture of right acetabulum, unspecified portion of acetabulum, initial encounter Fall, subsequent encounter Fall Unspecified fall documented in this encounter [facility] note* Diagnosis Pain of right hip- Primary Closed fracture of multiple pubic rami, right, with routine healing, subsequent encounter documented in this encounter [facility] note* Diagnosis Pain of right hip documented in this encounter [facility] note* Diagnosis Acute pain of right knee documented in this encounter [facility] note* Diagnosis Personal history of malignant neoplasm of bladder- Primary documented in this encounter [facility] note* Diagnosis Pleuritic chest pain Painful respiration documented in this encounter [facility] note* Diagnosis Pulmonary nodule Solitary pulmonary nodule documented in this encounter [facility] note* Diagnosis Paroxysmal atrial fibrillation (HCC)- Primary Atrial fibrillation SDH (subdural hematoma) (HCC) Subdural hemorrhage documented in this encounter [facility] note* Diagnosis Subdural hematoma (HCC) Subdural hemorrhage documented in this encounter [facility] note* Diagnosis Anginal equivalent- Primary Equivalent angina Other and unspecified angina pectoris Primary hypertension Unspecified essential hypertension S/P AVR (aortic valve replacement) Heart valve replaced by other means documented in this encounter [facility] note* Diagnosis Anginal equivalent Equivalent angina Other and unspecified angina pectoris Primary hypertension Unspecified essential hypertension S/P AVR (aortic valve replacement) Heart valve replaced by other means documented in this encounter [facility] note* Diagnosis Personal history of malignant neoplasm of bladder- Primary documented in this encounter [facility] note* Diagnosis Bilateral carotid bruits- Primary Dyspnea on exertion Other dyspnea and respiratory abnormality Primary hypertension Unspecified essential hypertension Cerebrovascular accident (CVA), unspecified mechanism Mixed hyperlipidemia S/P AVR (aortic valve replacement) Heart valve replaced by other means Equivalent angina Other and unspecified angina pectoris Dyspnea on exertion Other dyspnea and respiratory abnormality documented in this encounter [facility] note* Diagnosis Dermatophytosis of nail- Primary On anticoagulant therapy Encounter for long-term (current) use of anticoagulants Type 2 diabetes mellitus with diabetic neuropathy, without long-term current use of insulin documented in this encounter [facility] note* Diagnosis Constipation, unspecified constipation type- Primary documented in this encounter [facility] note* Diagnosis 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 documented in this encounter [facility] note* Diagnosis Bilateral carotid bruits- Primary Dyspnea on exertion Other dyspnea and respiratory abnormality Primary hypertension Unspecified essential hypertension Cerebrovascular accident (CVA), unspecified mechanism Mixed hyperlipidemia S/P AVR (aortic valve replacement) Heart valve replaced by other means Equivalent angina Other and unspecified angina pectoris documented in this encounter [facility] note* Diagnosis Urinary urgency- Primary Urgency of urination 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 No obvious fractures. Tylenol for any pain. Follow-up with either his primary care physician or your medical assistant prn if not improving in the next 3 to 5 days.[facility] Work Phone: Hospital Discharge instructions* Attachments The following attachments cannot be sent through Care Everywhere. 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 [C67.3] Procedures UT CYSTOURETHROSCOPY,FULGUR 2-5CM LESN CYSTOURETHROSCOPY W/ FULGURATION/RESECTION LESION BLADDER (TURB) Neno Domínguez MD [address] [facility] [address] [place] [address] [address] Referral ID Status Reason Start Date Expiration Date Visits Re quested Visits Authorized [id number] 04/26/2022 06/22/2022 1 1 [facility] Summary Purpose Family History No Family History Records Found Relationship Condition Age at Onset Recorded Date/T brittany Unknown Family Member Living Status Unknown May 17, 2020 3:35am Family Member Living Status Unknown May 17, 2020 8:30am Family Member Living Status Unknown May 04, 2021 3:32pm Family Cardiac Disorders Unknown [facility] 2020 8:30am Family Cardiac Disorders Unknown [facility] 2021 3:32pm Family Cancer Unknown May 17, 2020 3:35am Family Cancer Unknown May 04, 2021 3:32pm Family Endocrine Disorder Unknown [facility] 2020 8:30am Family Endocrine Disorder Unknown [facility] 2021 3:32pm Relationship Condition Age at Onset Recorded Date/T brittany mother Cardiac disease Unknown Hypertension Unknown Malignant neoplasm of breast Unknown father Hypertension Unknown Diabetes mellitus Unknown Advance Directives No Advanced Directives Records Found Advance Directive Response Recorded Date/ Time Does the Patient Have an Advanced Directive on F ile? Yes August 11, 2020 1:41pm Latest Code Status on File Code Status Date Activated Date Inactivated Comments Full Code 09/12/2022 2:32 PM Code Status History Code Status Date Activated Date Inactivated Comments Full Code 07/13/2022 11:51 AM 09/12/2022 2:32 PM Full Code 08/02/2014 9:29 PM 08/03/2014 6:29 PM Latest Code Status on File Code Status Date Activated Date Inactivated Comments Full Code 09/12/2022 2:32 PM Code Status History Code Status Date Activated Date Inactivated Comments Full Code 07/13/2022 11:51 AM 09/12/2022 2:32 PM Full Code 08/02/2014 9:29 PM 08/03/2014 6:29 PM Advance Directive Response Recorded Date/ Time Living Will Yes March 17, 2 023 4:44pm Power of Aquatics Lifeguard Yes March 17, 2023 4:44pm Name of Medical Power of Aquatics Lifeguard SON March 17, 2023 4:44pm Latest Code Status on File Code Status Date Activated Date Inactivated Comments DNR-CCA, DNI 03/17/2023 11:23 PM 03/22/2023 12:18 AM Question Answer Comments DNR Order Discussed With: Surrogate Decision [place] er Latest Code Status on File Code Status Date Activated Date Inactivated Comments DNR-CCA, DNI 03/17/2023 11:23 PM 03/22/2023 12:18 AM Question Answer Comments DNR Order Discussed With: Surrogate Decision [place] er Advance Directive Response Recorded Date/ Time Name of Medical Power of Aquatics Lifeguard SON March 17, 2023 4:44pm Living Will No May 09, 2 024 3:52pm Power of Aquatics Lifeguard No May 09, 2023 3:52pm Advance Directive Response Recorded Date/ Time Name of Medical Power of Aquatics Lifeguard SON March 17, 2023 5:44pm Living Will No May 09, 2 024 4:52pm Power of Aquatics Lifeguard No May 09, 2023 4:52pm Latest Code Status on File Code Status Date Activated Date Inactivated Comments Full Code 08/02/2014 9:29 PM 08/03/2014 6:29 PM Latest Code Status on File Code Status Date Activated Date Inactivated Comments Full Code 07/13/2022 11:51 AM Code Status History Code Status Date Activated Date Inactivated Comments Full Code 08/02/2014 9:29 PM 08/03/2014 6:29 PM Latest Code Status on File Code Status Date Activated Date Inactivated Comments Full Code 07/13/2022 11:51 AM Code Status History Code Status Date Activated Date Inactivated Comments Full Code 08/02/2014 9:29 PM 08/03/2014 6:29 PM Latest Code Status on File Code Status Date Activated Date Inactivated Comments Full Code 08/02/2014 9:29 PM 08/03/2014 6:29 PM Hospital Course Note [facility] [address] [place] [address] Discharge Summary Signed PRELIMINARY DRAFT REPORT UNTIL ELECTRONICALLY SIGNED PATIENT: Mick Cottrell MR#: [id number] : 1940 AGE/SEX: 79 / M ADMITTED: 04/12/20 1837 OUTSIDE LOCN: LOCATION: [address] ATTENDING: Jim Marshall MD cc: Jenaro Morales; Cynthia Johnston; Jim Marshall; - NOTES TO OUTPATIENT PROVIDER Notes to Outpatient Provider: Patient was originally admitted at [facility] on 03/05/20 for Covid 19 pneumonia. Patient had a lengthy recovery, which included transfer to inpatient rehabilitation and then a readmission at [facility] for respiratory distress. Patient was eventually transferred to inpatient rehabilitation where he has progressed well through therapy. Patient remains on oxygen at 2 L nasal cannula. Patient continues to have mild dyspnea with exertion, but also has a history of COPD. He will be transferred to a [facility] facility where he (more content not included)... Chief Complaint and Reason for Visit Chief Complaint Provider Based Isaías SEARSA 2-3 I63.9 Chief Complaint CONFUSION Chief Complaint CONFUSION LONG-TERM LABWORK LONG-TERM LABWORK LAB WORK EST / S/P [facility] 03/17 & [facility]) fall Reason for Visit H/O aortic valve rep lacement CAD (coronary artery disease) Diabetes mellitus Dyslipidemia HTN (hypertension) Paroxysmal atrial fibrillation Thrombocytopenia Chief Complaint CONFUSION LONG-TERM LABWORK LONG-TERM LABWORK LAB WORK LONG-TERM LAB WORK EST / S/P [facility] 03/17 & [facility]) fall Reason for Visit H/O aortic valve rep lacement CAD (coronary artery disease) Diabetes mellitus Dyslipidemia HTN (hypertension) Paroxysmal atrial fibrillation Thrombocytopenia Chief Complaint CONFUSION LONG-TERM LABWORK LONG-TERM LABWORK LAB WORK LONG-TERM LAB WORK EST / S/P [facility] 03/17 & [facility] ([facility]) fall LABWORK Reason for Visit H/O aortic valve rep lacement CAD (coronary artery disease) Diabetes mellitus Dyslipidemia HTN (hypertension) Paroxysmal atrial fibrillation Thrombocytopenia Chief Complaint CONFUSION ADMISSION EXAM - MD LONG-TERM LABWORK LONG-TERM LABWORK LAB WORK LONG-TERM LAB WORK EST / S/P [facility] 03/17 & [facility] ([facility]) fall LABWORK LABWORK Reason for Visit H/O aortic valve rep lacement CAD (coronary artery disease) Diabetes mellitus Dyslipidemia HTN (hypertension) Paroxysmal atrial fibrillation Thrombocytopenia Chief Complaint CONFUSION ADMISSION EXAM - MD LONG-TERM LABWORK LONG-TERM LABWORK LAB WORK LONG-TERM LAB WORK EST / S/P [facility] 03/17 & [facility] ([facility]) LONG-TERM LAB WORK fall LABWORK LABWORK LABWORK BRADYCARDIA Reason for Visit H/O aortic valve rep lacement CAD (coronary artery disease) Diabetes mellitus Dyslipidemia HTN (hypertension) Paroxysmal atrial fibrillation Thrombocytopenia Chief Complaint CONFUSION ADMISSION EXAM - MD LONG-TERM LABWORK LONG-TERM LABWORK LAB WORK LONG-TERM LAB WORK EST / S/P [facility] 03/17 & [facility]) LONG-TERM LAB WORK MONTHLY EXAM - MD NEW CONCERN fall LABWORK LABWORK LABWORK BRADYCARDIA Reason for Visit H/O aortic valve rep lacement CAD (coronary artery disease) Diabetes mellitus Dyslipidemia HTN (hypertension) Paroxysmal atrial fibrillation Thrombocytopenia Chief Complaint CONFUSION ADMISSION EXAM - MD LONG-TERM LABWORK LONG-TERM LABWORK LAB WORK LONG-TERM LAB WORK EST / S/P [facility] 03/17 & [facility]) LONG-TERM LAB WORK MONTHLY EXAM - NEW CONCERN fall LABWORK LABWORK LABWORK BRADYCARDIA MONTHLY EXAM PA LONG-TERM LAB WORK Reason for Visit H/O aortic valve rep lacement CAD (coronary artery disease) Diabetes mellitus Dyslipidemia HTN (hypertension) Paroxysmal atrial fibrillation Thrombocytopenia Chief Complaint CONFUSION ADMISSION EXAM - LONG-TERM LABWORK LONG-TERM LABWORK LAB WORK LONG-TERM LAB WORK EST / S/P [facility] 03/17 & [facility]) LONG-TERM LAB WORK MONTHLY EXAM - NEW CONCERN fall LABWORK LABWORK LABWORK BRADYCARDIA MONTHLY EXAM PA LONG-TERM LAB WORK LABWORK Reason for Visit H/O aortic valve rep lacement CAD (coronary artery disease) Diabetes mellitus Dyslipidemia HTN (hypertension) Paroxysmal atrial fibrillation Thrombocytopenia Chief Complaint Admit Date LABWORK February 28, 2024 5 :00am 4-6 WK FU March 06, 2024 10:57am MONTHLY EXAM March 10, 2024 9:42pm LONG-TERM LAB WORK March 30, 2024 5:00am LONG-TERM LAB WORK March 31, 2024 4:08am MONTHLY EXAM April 02, 2024 9: 43am LONG-TERM LAB WORK May 01, 2024 4:00am MONTHLY EXAM May 05, 2024 1:34pm 1 Y FU May 07, 2024 1:09pm LONG-TERM LAB WORK May 10 8:00pm LABWORK May 14, 2024 5:00am PVD May 29, 2024 1:32 pm 1 M FU May 29, 2024 2:25 pm Reason for Visit Admit Date 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 March 06, 2024 10:57am Diabetes mellitus March 06, 2024 10:57am H/O aortic valve replacement May 072024 1:09pm CAD (coronary artery disease) April 252024 1:09pm Diabetes mellitus May 07, 2024 1:09pm Dyslipidemia May 07, 2024 1:09pm HTN (hypertension) May 07, 2024 1:09pm Paroxysmal atrial fibrillation May 07, 2024 1:09pm Thrombocytopenia May 07, 2024 1:09pm 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 May 29, 2024 2:25pm Diabetes mellitus May 29, 2024 2:25 pm Chief Complaint Admit Date LONG-TERM LAB WORK March 31, 2024 4:08am MONTHLY EXAM April 02, 2024 9: 43am LONG-TERM LAB WORK May 01, 2024 4:00am MONTHLY EXAM May 05, 2024 1:34pm 1 Y FU May 07, 2024 1:09pm LONG-TERM LAB WORK May 10 8:00pm LABWORK May 14, 2024 5:00am MONTHLY EXAM May 25, 2024 2:05 pm PVD May 29, 2024 1:32 pm 1 M FU May 29, 2024 2:25 pm ACUTE EXAM June 01, 2024 4:0 3pm NEW CONCERN June 10, 2024 6:5 7pm LABWORK June 26, 2024 5:00 am Reason for Visit Admit Date H/O aortic valve replacement May 072024 1:09pm CAD (coronary artery disease) April 252024 1:09pm Diabetes mellitus May 07, 2024 1:09pm Dyslipidemia May 07, 2024 1:09pm HTN (hypertension) May 07, 2024 1:09pm Paroxysmal atrial fibrillation May 07, 2024 1:09pm Thrombocytopenia May 07, 2024 1:09pm 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 May 29, 2024 2:25pm Diabetes mellitus May 29, 2024 2:25 pm Chief Complaint Admit Date LONG-TERM LAB WORK May 01, 2024 4:00am MONTHLY EXAM May 05, 2024 1:34pm 1 Y FU May 07, 2024 1:09pm LONG-TERM LAB WORK May 10 8:00pm LABWORK May 14, 2024 5:00am MONTHLY EXAM May 25, 2024 2:05 pm PVD May 29, 2024 1:32 pm 1 M FU May 29, 2024 2:25 pm ACUTE EXAM June 01, 2024 4:0 3pm NEW CONCERN June 10, 2024 6:5 7pm MONTHLY EXAM June 23, 2024 3:43 pm LABWORK June 26, 2024 5:00 am Chief Complaint Admit Date LONG-TERM LAB WORK May 01, 2024 4:00am MONTHLY EXAM May 05, 2024 1:34pm 1 Y FU May 07, 2024 1:09pm LONG-TERM LAB WORK May 10 8:00pm LABWORK May 14, 2024 5:00am MONTHLY EXAM May 25, 2024 2:05 pm PVD May 29, 2024 1:32 pm 1 M FU May 29, 2024 2:25 pm ACUTE EXAM June 01, 2024 4:0 3pm NEW CONCERN June 10, 2024 6:5 7pm MONTHLY EXAM June 23, 2024 3:43 pm LABWORK June 26, 2024 5:00 am CAD/ASHD August 07, 2024 9:56a m Chief Complaint Admit Date MONTHLY EXAM May 25, 2024 2:05 pm PVD May 29, 2024 1:32 pm 1 M FU May 29, 2024 2:25 pm ACUTE EXAM June 01, 2024 4:0 3pm NEW CONCERN June 10, 2024 6:5 7pm MONTHLY EXAM June 23, 2024 3:43 pm LABWORK June 26, 2024 5:00 am MONTHLY EXAM July 30, 2024 9:32am CAD/ASHD August 07, 2024 9:56a m LONG-TERM LAB WORK August 26, 2024 5:0 0pm LABWORK August 28, 2024 5:00a m Reason for Visit Admit Date 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 May 29, 2024 2:25pm Diabetes mellitus May 29, 2024 2:25 pm Chief Complaint Admit Date MONTHLY EXAM May 25, 2024 2:05 pm PVD May 29, 2024 1:32 pm 1 M FU May 29, 2024 2:25 pm ACUTE EXAM June 01, 2024 4:0 3pm NEW CONCERN June 10, 2024 6:5 7pm MONTHLY EXAM June 23, 2024 3:43 pm LABWORK June 26, 2024 5:00 am MONTHLY EXAM July 30, 2024 9:32am CAD/ASHD August 07, 2024 9:56a m NEW CONCERN August 10, 2024 3:13p m LONG-TERM LAB WORK August 26, 2024 5:0 0pm LABWORK August 28, 2024 5:00a m Chief Complaint Admit Date MONTHLY EXAM June 23, 2024 3:43 pm LABWORK June 26, 2024 5:00 am MONTHLY EXAM July 30, 2024 9:32am CAD/ASHD August 07, 2024 9:56a m NEW CONCERN August 10, 2024 3:13p m Monthly Exam August 25, 2024 8:11p m LONG-TERM LAB WORK August 26, 2024 5:0 0pm LABWORK August 28, 2024 5:00a m Chief Complaint Admit Date MONTHLY EXAM July 30, 2024 9:32am CAD/ASHD August 07, 2024 9:56a m NEW CONCERN August 10, 2024 3:13p m Monthly Exam August 25, 2024 8:11p m LONG-TERM LAB WORK August 26, 2024 5:0 0pm LABWORK August 28, 2024 5:00a m Monthly Exam October 01, 2024 11:4 2am Chief Complaint Admit Date MONTHLY EXAM July 30, 2024 9:32am CAD/ASHD August 07, 2024 9:56a m NEW CONCERN August 10, 2024 3:13p m Monthly Exam August 25, 2024 8:11p m LONG-TERM LAB WORK August 26, 2024 5:0 0pm LABWORK August 28, 2024 5:00a m Monthly Exam October 01, 2024 11:4 2am 6 M FU November 05, 2024 11 :26am Reason for Visit Admit Date H/O aortic valve replacement October 11:26am CAD (coronary artery disease) October 11:26am Dyslipidemia November 05, 2024 11 :26am HTN (hypertension) November 05, 2024 11 :26am Paroxysmal atrial fibrillation November 052024 11:26am Thrombocytopenia November 05, 2024 11 :26am Chief Complaint Admit Date MONTHLY EXAM July 30, 2024 9:32am CAD/ASHD August 07, 2024 9:56a m NEW CONCERN August 10, 2024 3:13p m Monthly Exam August 25, 2024 8:11p m LONG-TERM LAB WORK August 26, 2024 5:0 0pm LABWORK August 28, 2024 5:00a m Monthly Exam October 01, 2024 11:4 2am MONTHLY EXAM October 27, 2024 2:3 3pm 6 M FU November 05, 2024 11 :26am Reason for Referral Specialty Diagnoses / Procedures Referred By Contac t Referred To Contact Social Work Diagnoses Fall, subsequent encounter Yvon Boyce MD [address] [place] [phone] Referral ID Status Reason Start Date Expiration Date V isits Requested Visits Authorized [id number] New Request 09/14/2022 10/09/2023 1 1 Specialty Diagnoses / Procedures Referred By Contac t Referred To Contact Procedures DVT/VTE RISK ASSESSMENT Zach Sales MD [address] [place] [phone] Referral ID Status Reason Start Date Expiration Date V isits Requested Visits Authorized [id number] New Request 09/12/2022 10/07/2023 1 1 Specialty Diagnoses / Procedures Referred By Contac t Referred To Contact Procedures ECG Komal Blackwell MD [address] [place] [id number] Referral ID Status Reason Start Date Expiration Date V isits Requested Visits Authorized [id number] New Request 09/12/2022 10/07/2023 1 1 Specialty Diagnoses / Procedures Referred By Contac t Referred To Contact Diagnoses Pulmonary nodule Procedures CT CHEST WITHOUT CONTRAST CHG DIAGNOSTIC COMPUTED TOMOGRAPHY THORAX W/O CNTRST Grace Gtz MD [facility] [place] [address] [address] Referral ID Status Reason Start Date Expiration Date Visits Re quested Visits Authorized [id number] Closed 11/01/2022 11/26/2023 1 1 Specialty Diagnoses / Procedures Referred By Contac t Referred To Contact Diagnoses Anginal equivalent Equivalent angina Primary hypertension S/P AVR (aortic valve replacement) Procedures CASE REQUEST - CARDIAC CATH Juan Wilson MD [address] [place] [address] Referral ID Status Reason Start Date Expiration Date V isits Requested Visits Authorized [id number] New Request 06/26/2022 07/21/2023 1 1 Specialty Diagnoses / Procedures Referred By Contac t Referred To Contact Diagnoses Dyspnea on exertion S/P AVR (aortic valve replacement) Procedures ECHOCARDIOGRAM UT ECHO HEART XTHORACIC,COMPLETE W DOPPLER Juan Wilson MD [address] [place] [id number] Referral ID Status Reason Start Date Expiration Date Visits Re quested Visits Authorized [id number] Closed 05/18/2022 06/12/2023 1 1 Specialty Diagnoses / Procedures Referred By Contac t Referred To Contact Diagnoses Dyspnea on exertion Bilateral carotid bruits Procedures VASC DUPLEX CAROTID BILATERAL Juan Wilson MD [address] [place] [id number] Referral ID Status Reason Start Date Expiration Date Visits Re quested Visits Authorized [id number] Closed 05/18/2022 06/12/2023 1 1 Specialty Diagnoses / Procedures Referred By Contac t Referred To Contact Diagnoses Dyspnea on exertion Procedures NUC MYOCARD PERF STRESS MIBI PHARM UT CHG MYOCARDIAL SPECT MULTIPLE STUDIES CHG MYOCARDIAL SPECT MULTIPLE STUDIES-T UT CARDIAC STRESS TST,INTERP/REPT ONLY UT CV STRS TST XERS&/OR RX CONT ECG W/O I&R Juan Wilson MD [address] [place] [address] Referral ID Status Reason Start Date Expiration Date Visits Re quested Visits Authorized [id number] Closed 05/18/2022 06/12/2023 1 1 Referral ID Status Reason Start Date Expiration Date V isits Requested Visits Authorized [id number] New Request 05/18/2022 06/12/2023 1 1 Referral ID Status Reason Start Date Expiration Date V isits Requested Visits Authorized [id number] New Request 05/18/2022 06/12/2023 1 1 Referral ID Status Reason Start Date Expiration Date V isits Requested Visits Authorized [id number] New Request 05/18/2022 06/12/2023 1 1 Additional Source Comments (unrecognized sect ion and content) No Status Records FoundNo Status Records FoundNo Status Records FoundNo Status Records FoundNo Status Records FoundNo Status Records FoundNo Status Records FoundNo Status Records FoundNo Status Records Found INFORMATION SOURCE (unrecogn ized section and content) DATE CREATED AUTHOR 05/31/2020 [facility] DATE CREATED AUTHOR AUTHOR'S ORGANIZ ATION 06/21/2020 [facility] DATE CREATED AUTHOR AUTHOR'S ORGANIZ ATION 01/17/2022 [facility] DATE CREATED AUTHOR AUTHOR'S ORGANIZ ATION 04/28/2022 [facility] DATE CREATED AUTHOR AUTHOR'S ORGANIZ ATION 11/01/2022 [facility] DATE CREATED AUTHOR AUTHOR'S ORGANIZ ATION 03/07/2023 [facility] DATE CREATED AUTHOR AUTHOR'S ORGANIZ ATION 05/02/2023 [facility] DATE CREATED AUTHOR AUTHOR'S ORGANIZ ATION 08/21/2023 [facility] DATE CREATED AUTHOR AUTHOR'S ORGANIZ ATION 11/11/2024 [facility] Goals (unrecognized section and content) Goals may be documented in a n alternate sectionGoals may be documented in an alternate sectionGoals may be documented in an alternate sectionGoals may be documented in an alternate sectionGoals may be documented in an alternate sectionGoals may be documented in an alternate sectionGoals may be documented in an alternate sectionGoals may be documented in an alternate sectionGoals may be documented in an alternate sectionGoals may be documented in an alternate sectionGoals may be documented in an alternate sectionGoals may be documented in an alternate sectionGoals may be documented in an alternate sectionGoals may be documented in an alternate sectionGoals may be documented in an alternate sectionGoals may be documented in an alternate sectionGoals may be documented in an alternate sectionGoals may be documented in an alternate sectionGoals may be documented in an alternate sectionGoals may be documented in an alternate sectionGoals may be documented in an alternate sectionGoals may be documented in an alternate section Reason for Visit (unrecogniz ed section and content) Reason Comments Hip Pain Fall Patient states he fe ll yesterday was walking down neighbors driveway states that he hit his head on the grass and his head does not hurt. Complains of right hip pain that radiates down to knee. Takes coumadin, last taken this morning. Specialty Diagnoses / Procedures Referred By Lyudmila dover Referred To Contact Zach Sales MD [address] [place] [phone] [address] Referral ID Status Reason Start Date Expiration Date Visits Re quested Visits Authorized [id number] 1 1 Reason Comments Injury Patient fell. Reason Comments Cystoscopy Cysto. NT-BLOCK CUBER Specialty Diagnoses / Procedures Referred By Lyudmila dover Referred To Contact Diagnoses Pulmonary nodule Procedures CT CHEST WITHOUT CONTRAST CHG DIAGNOSTIC COMPUTED TOMOGRAPHY THORAX W/O CNTRST Grace Gtz MD [address] [place] [id number] [address] Referral ID Status Reason Start Date Expiration Date Visits Re quested Visits Authorized [id number] Closed 11/01/2022 11/26/2023 1 1 Reason Comments Established Patient Specialty Diagnoses / Procedures Referred By Lyudmila dover Referred To Contact CT IMAGING Diagnoses Subdural hematoma (HCC) Procedures CT BRAIN WO IVCON CT HEAD/BRAIN W/O CONTRAST MATERIAL Toño Crowe PA-C [address] [place] [address] [place] [id number] Referral ID Status Reason Start Date Expiration Date V isits Requested Visits Authorized [id number] Closed Auto-Generate d Referral 04/02/2023 05/02/2023 1 1 Reason Comments Follow-up C/O CHEST PAIN IN TH E RIGHT SIDE Specialty Diagnoses / Procedures Referred By Lyudmila dovre Referred To Contact Diagnoses Anginal equivalent Equivalent angina Primary hypertension S/P AVR (aortic valve replacement) Anginal equivalent [I20.8] Equivalent angina [I20.8] Primary hypertension [I10] S/P AVR (aortic valve replacement) [Z95.2] Procedures UT CATH PLMT L HRT & ARTS W/NJX & ANGIO IMG S&I SCHED CATHETERIZATION HEART CORONARY ANGIOGRAM WITH OR WITHOUT LV ANGIO Juan Wilson MD [address] [place] [id number] [address] Referral ID Status Reason Start Date Expiration Date Visits Re quested Visits Authorized [id number] 07/13/2022 10/11/2022 1 1 Reason Comments Cystoscopy Cysto. Js rma Reason Comments Dizziness balance Shortness of Breath Lying down Reason Comments Nail Trim Specialty Diagnoses / Procedures Referred By Lyudmila dover Referred To Contact Podiatry Diagnoses Other specified diabetes mellitus with diabetic chronic kidney disease, unspecified CKD stage, unspecified whether ranch hand insulin use Grace Gtz MD [address] [place] [phone] [address] Referral ID Status Reason Start Date Expiration Date V isits Requested Visits Authorized [id number] New Request 08/09/2022 09/03/2023 1 1 Reason Comments Constipation Patient reports that he had surgery on bladder cancer two days ago, hasnt been able to poop since Saturday, feels the urge but is unable to get anything out. Specialty Diagnoses / Procedures Referred By Lyudmila dover Referred To Contact Diagnoses Dyspnea on exertion S/P AVR (aortic valve replacement) Procedures ECHOCARDIOGRAM UT ECHO HEART XTHORACIC,COMPLETE W DOPPLER Juan Wilson MD [address] [place] [address] Referral ID Status Reason Start Date Expiration Date Visits Re quested Visits Authorized [id number] Closed 05/18/2022 06/12/2023 1 1 Specialty Diagnoses / Procedures Referred By Contleora t Referred To Contact Diagnoses Dyspnea on exertion Bilateral carotid bruits Procedures VASC DUPLEX CAROTID BILATERAL Juan Wilson MD [address] [facility] [address] [place] [address] Referral ID Status Reason Start Date Expiration Date Visits Re quested Visits Authorized [id number] Closed 05/18/2022 06/12/2023 1 1 Reason Comments Follow-up Pt complains of urin acacia urgency. Js rma Specialty Diagnoses / Procedures Referred By Lyudmila t Referred To Contact Diagnoses Dyspnea on exertion Procedures NUC MYOCARD PERF STRESS MIBI PHARM UT CHG MYOCARDIAL SPECT MULTIPLE STUDIES CHG MYOCARDIAL SPECT MULTIPLE STUDIES-T UT CARDIAC STRESS TST,INTERP/REPT ONLY UT CV STRS TST XERS&/OR RX CONT ECG W/O I&R Juan Wilson MD [address] [place] [address] Referral ID Status Reason Start Date Expiration Date Visits Re quested Visits Authorized [id number] Closed 05/18/2022 06/12/2023 1 1 Scheduled Active and Recently Administ ered Medications (unrecognized section and content) Medication Order 09/12/2022 09/13/2022 09/14/2022 aspirin chewable tablet 81 mg 81 mg, Oral, DAILY, First dose on Sat09/13/22 at 0900, Until Discontinued 105 (Not Given - Provider: Meghan Marie RN - Reason: Other - Comment: See note.) 800 (Given - Provider: Geovanna De RN) Atorvastatin (LIPITOR) tablet 40 mg 40 mg, Oral, DAILY AT BEDTIME, First dose on Sat09/12/22 at 2100, Until Discontinued 2147 (Given - Provider: Ginette Tsai RN) 2023 (Given - Provider: Megan Summers RN) Docusate (COLACE) capsule 100 mg 100 mg, Oral, EVERY 12 HOURS, First dose on Sat09/12/22 at 2100, Until Discontinued 2148 (Given - Provider: Ginette Tsai RN) 1057 (Not Given - Provider: Meghan Marie RN - Reason: Other - Comment: See note.)2023 (Given - Provider: Megan Summers RN) 08 (Given - Provider: Geovanna De RN) Enoxaparin Sodium (LOVENOX) injection 40 mg (CANCELED) 40 mg, Subcutaneous, EVERY 24 HOURS, First dose on Sat09/13/22 at 0600, Until Discontinued, DO NOT ADMINISTER ON DAY OF SURGERY/INVASIVE PROCEDURE UNLESS OTHERWISE DIRECTED., Indications: DVT/PE prophylaxis 0540 (Given - Provider: Ginette Tsai RN) 0549 (Given - Provider: Megan Summers RN) Finasteride (PROSCAR) tablet 5 mg 5 mg, Oral, DAILY AT BEDTIME, First dose on Sat09/12/22 at 2100, Until Discontinued, Do not split, break, crush or open this medication. Contact pharmacy if altered route or dose needed. 2147 (Given - Provider: Ginette Tsai RN) 2023 (Given - Provider: Megan Smumers RN) FLUoxetine (PROZAC) capsule 20 mg 20 mg, Oral, DAILY, First dose on Sat09/13/22 at 0900, Until Discontinued 105 (Not Given - Provider: Meghan Marie RN - Reason: Other - Comment: See note.) 08 (Given - Provider: Geovanna De RN) insulin lispro (HumaLOG) injection Subcutaneous, 3 TIMES DAILY BEFORE MEALS, First dose on Sat09/12/22 at 1700, Until Discontinued, Sliding Scale/Correction Factor FOR MEALS: 141-180 mg/dL = 2 units; 181-220 mg/dL = 4 units; 221-260 mg/dL = 6 units; 261-300 mg/dL = 8 units; 301-350 mg/dL = 10 units; 351-400 mg/dL = 12 units; Greater than 400 mg/dL = 14 units 181 (Not Given - Provider: Kasandra Ragland RN - Reason: Order Parameters not met) 105 (Not Given - Provider: Meghan Marie RN - Reason: Other - Comment: see note.)1231 (Not Given - Provider: Meghan Marie RN - Reason: Patient/family refused)1739 (Given - Provider: Meghan Marie RN) 0803 (Given - Provider: Geovanna De, RN)1218 (Given - Provider: Geovanna De, RN)1600 (Canceled Entry - Provider: System Discharge - Comment: Automatically canceled at discontinue of medication order) Losartan (COZAAR) tablet 25 mg 25 mg, Oral, DAILY, First dose on Sat09/13/22 at 0900, Until Discontinued 1058 (Not Given - Provider: Meghan Marie RN - Reason: Other - Comment: See note.) 0801 (Given - Provider: Geovanna De, RN) Montelukast (SINGULAIR) tablet 10 mg 10 mg, Oral, DAILY AT BEDTIME, First dose on Sat09/12/22 at 2100, Until Discontinued 2146 (Given - Provider: Ginette Tsai RN) 2023 (Given - Provider: Megan Summers, FIDELINA) Topiramate (TOPAMAX) tablet 50 mg 50 mg, Oral, DAILY AT BEDTIME, First dose on Sat09/12/22 at 2100, Until Discontinued, Do not split, break, crush, or open doses of this medication. Contact pharmacy if altered dose or route needed. 2147 (Not Given - Provider: Ginette Tsai RN - Reason: Patient/family refused - Comment: Patient states he does not take it anymore) 2023 (Not Given - Provider: Megan Summers RN - Reason: Patient/family refused) warfarin (COUMADIN) tablet 4 mg 4 mg, Oral, DAILY EARLY EVENING, 1 dose, First dose on Sat09/14/22 at 1800, Swallow tablet whole; do not crush, split or chew. Contact pharmacy if alternate route or dose is needed. 1800 (Canceled Entry - Provider: System Discharge - Comment: Automatically canceled at discontinue of medication order) Warfarin Placeholder 0.5 mg, Oral, DISPENSE ON REQUEST, Starting on Sat09/14/22 at 1023, Until Sat09/14/22 at 1833, PHARMACY MEDICATION PLACEHOLDER - PHARMACY MANAGED PER POLICY PRN Medication Order 09/12/2022 09/13/2022 09/14/2022 Dextrose 5% IV solution 1,000 mL(Linked Group 1) Intravenous, at 100 mL/hr, ADMINISTER DIRECTED, Starting on Sat09/12/22 at 1645, Until Sat09/14/22 at 1833, Hypoglycemia, For Blood Glucose less than 70 mg/dl, decreased level of consciousness, NPO and at risk for aspiration. Start until physician notified Dextrose 50% injection 25 g(Linked Group 1) 25 g, Intravenous, ADMINISTER DIRECTED, Starting on Sat09/12/22 at 1645, Until Sat09/14/22 at 1833, Hypoglycemia, For Blood Glucose less than 70 mg/dl, decreased level of consciousness, NPO and at risk for aspiration. May repeat if patient does not respond in 5 minutes. glucagon (GLUCAGEN) injection 1 mg 1 mg, Intramuscular, ADMINISTER DIRECTED, Starting on Sat09/12/22 at 1645, Until Sat09/14/22 at 1833, Hypoglycemia, For Blood Glucose less than 70 mg/dl, decreased level of consciousness, NPO, no IV access and at risk for aspiration. glucose (GLUTOSE) 40 % oral gel 1 Tube(Linked Group 2) 1 Tube, Oral, ADMINISTER DIRECTED, Starting on Sat09/12/22 at 1645, Until Sat09/14/22 at 1833, Other, Hypoglycemia, For Blood Glucose less than 70 mg/dL and patient is alert. May repeat treatment in 15 minutes x2 per protocol. glucose (GLUTOSE) 40 % oral gel 2 Tube(Linked Group 2) 2 Tube, Oral, ADMINISTER DIRECTED, Starting on Sat09/12/22 at 1645, Until Sat09/14/22 at 1833, Other, Hypoglycemia, For Blood Glucose less than 50 mg/dL and patient is alert. May repeat treatment in 15 minutes x2 per protocol. hydrALAZINE (APRESOLINE) injection 5 mg 5 mg, Intravenous, EVERY 6 HOURS NEEDED, Starting on Sat09/12/22 at 1514, Until Sat09/14/22 at 1833, SBP > 180 mmHg 0351 (Given - Provider: Ginette Tsai RN) 0242 (Given - Provider: Megan Summers RN) hydroCODone-acetaminophen (NORCO) 5-325 MG per tablet 1 tablet 1 tablet, Oral, EVERY 6 HOURS NEEDED, Starting on Sat09/12/22 at 1432, Until Sat09/14/22 at 1833, Moderate Pain, Maximum dose of acetaminophen is 4000 mg from all sources in 24 hours. Naloxone (NARCAN) injection 0.4 mg 0.4 mg, Intravenous, EVERY 15 MINUTES NEEDED, 2 doses, Starting on Sat09/12/22 at 1431, Until Sat09/14/22 at 1833, Respiratory Depression, Opioid Reversal Ondansetron (ZOFRAN-ODT) disintegrating tablet 4 mg(Linked Group 3) 4 mg, Oral, EVERY 6 HOURS NEEDED, Starting on Sat09/12/22 at 1432, Until Sat09/14/22 at 1833, Nausea / Vomiting, 1st line Ondansetron 4mg/2ml (ZOFRAN) injection 4 mg(Linked Group 3) 4 mg, Intravenous, EVERY 6 HOURS NEEDED, Starting on Sat09/12/22 at 1432, Until Sat09/14/22 at 1833, Nausea / Vomiting, 1st line Oxybutynin (DITROPAN) tablet 5 mg 5 mg, Oral, 3 TIMES DAILY NEEDED, Starting on Sat09/12/22 at 1433, Until Sat09/14/22 at 1833, Bladder Spasm Sodium chloride (PF) 0.9 % injection 5 mL 5 mL, Intravenous, ADMINISTER DIRECTED, Starting on Sat09/12/22 at 1431, Until Sat09/14/22 at 1833, Flush, per IV Care Guidelines Linked Groups Order Group 1: Dextrose 50% injection 25 gJump to med 25 g, Intravenous, ADMINISTER DIRECTED, Starting on Sat09/12/22 at 1645, Until Sat09/14/22 at 1833, Hypoglycemia
For Blood Glucose less than 70 mg/dl, decreased level of consciousness, NPO and at risk for aspiration. May repeat if patient does not respond in 5 minutes.
And Dextrose 5% IV solution 1,000 mLJump to med Intravenous, at 100 mL/hr, ADMINISTER DIRECTED, Starting on Sat09/12/22 at 1645, Until Sat09/14/22 at 1833, Hypoglycemia
For Blood Glucose less than 70 mg/dl, decreased level of consciousness, NPO and at risk for aspiration. Start until physician notified
Group 2: glucose (GLUTOSE) 40 % oral gel 1 TubeJump to med 1 Tube, Oral, ADMINISTER DIRECTED, Starting on Sat09/12/22 at 1645, Until Sat09/14/22 at 1833, Other, Hypoglycemia
For Blood Glucose less than 70 mg/dL and patient is alert. May repeat treatment in 15 minutes x2 per protocol.
Or glucose (GLUTOSE) 40 % oral gel 2 TubeJump to med 2 Tube, Oral, ADMINISTER DIRECTED, Starting on Sat09/12/22 at 1645, Until Sat09/14/22 at 1833, Other, Hypoglycemia
For Blood Glucose less than 50 mg/dL and patient is alert. May repeat treatment in 15 minutes x2 per protocol.
Group 3: Ondansetron 4mg/2ml (ZOFRAN) injection 4 mgJump to med 4 mg, Intravenous, EVERY 6 HOURS NEEDED, Starting on Sat09/12/22 at 1432, Until Sat09/14/22 at 1833, Nausea / Vomiting, 1st line Or Ondansetron (ZOFRAN-ODT) disintegrating tablet 4 mgJump to med 4 mg, Oral, EVERY 6 HOURS NEEDED, Starting on Sat09/12/22 at 1432, Until Sat09/14/22 at 1833, Nausea / Vomiting, 1st line Continuous Medication Order 07/11/2022 07/12/2022 07/13/2022 Sodium chloride 0.9% IV solution Intravenous, at 100 mL/hr, CONTINUOUS, Starting on Sat07/13/22 at 0830, Until Sat07/13/22 at 1610, Pre-op/Pre-Proc 0930 ($$New Bag$$ - Provider: Leandra Gaming RN)1345 (Stopped - Provider: eLandra Gaming RN) PRN Medication Order 07/11/2022 07/12/2022 07/13/2022 Acetaminophen (TYLENOL) tablet 325 mg 325 mg, Oral, EVERY 6 HOURS NEEDED, Starting on Sat07/13/22 at 1151, Until Sat07/13/22 at 1610, Mild Pain, Maximum dose of acetaminophen is 4000 mg from all sources in 24 hours., Post-op/Post-Proc fentaNYL (SUBLIMAZE) injection (CANCELED) Administer over 2 Minutes, NEEDED, Starting on Sat07/13/22 at 1122, Until Sat07/13/22 at 1140, Intra-op/Intra-Proc 1122 (Given - Provid er: Shyam Garcia RN) Heparin injection (CANCELED) NEEDED, Starting on Sat07/13/22 at 1131, Until Sat07/13/22 at 1140, Intra-op/Intra-Proc 1131 (Given - Provid er: Shyam Garcia RN) Iopamidol (370 mg/mL) (ISOVUE) 76 % (CANCELED) NEEDED, Starting on Sat07/13/22 at 1135, Until Sat07/13/22 at 1140, Intra-op/Intra-Proc 1135 (Given - Provid er: Juan Wilson MD) Lidocaine 2 % injection (CANCELED) Other, NEEDED, Starting on Sat07/13/22 at 1129, Until Sat07/13/22 at 1140, Intra-op/Intra-Proc 1129 (Given - Provid er: Juan Wilson MD) midazolam (VERSED) injection (CANCELED) Intravenous, NEEDED, Starting on Sat07/13/22 at 1122, Until Sat07/13/22 at 1140, Intra-op/Intra-Proc 1122 (Given - Provid er: Shyam Garcia RN) nitroGLYCERIN in D5W 0.2 MG/ML vial (CANCELED) NEEDED, Starting on Sat07/13/22 at 1130, Until Sat07/13/22 at 1140, Intra-op/Intra-Proc 1130 (Given - Provid er: Juan Wilson MD) verapamil (ISOPTIN) injection (CANCELED) NEEDED, Starting on Sat07/13/22 at 1130, Until Sat07/13/22 at 1140, Intra-op/Intra-Proc 1130 (Given - Provid er: Juan Wilson MD) Scheduled Medication Order 04/26/2022 04/27/2022 04/28/2022 Sodium chloride 0.9% IV solution 1,000 mL (COMPLETED) 1,000 mL, Intravenous, ONCE, 1 dose, On 04/28/22 at 1045 1037 ($$New Bag$$ - Provider: Belem Gomez RN)1320 (Stopped - Provider: Belem Gomez RN) Continuous Medication Order 04/24/2022 04/25/2022 04/26/2022 Lactated ringers IV solution Intravenous, at 20 mL/hr, CONTINUOUS, Starting on Kenna 04/26/22 at 0830, Until Sat04/27/22 at 0315 0932 ($$New Bag$$ - Provider: Nay Coleman RN)0943 (Rate/Dose Change - Provider: Kayy Cobian CRNA)1010 (Paused - Provider: Kayy Cobian CRNA - Comment: Switch to gravity)1011 (Restarted - Provider: Kayy Cobian CRNA)1127 (Stopped - Provider: Susan Baxter RN) Lactated ringers IV solution Intravenous, at 100 mL/hr, CONTINUOUS, Starting on Kenna 04/26/22 at 1115, Until Sat04/27/22 at 0315, Saline lock when tolerating oral intake and remove IV per ASU protocol., Post-op/Post-Proc 1115 (Canceled Entry - Provider: System Discharge - Comment: Automatically canceled at discontinue of medication order) PRN Medication Order 04/24/2022 04/25/2022 04/26/2022 levoFLOXacin (LEVAQUIN) 500 mg in dextrose 5% premix IVPB (COMPLETED) 500 mg, Intravenous, Administer over 60 Minutes, GEOSPATIAL APPLICATIONS DEVELOPER TO PROCEDURE, 1 dose, Starting on Kenna 04/26/22 at 0820, Until Discontinued, Preoperative antibiotic, Initiate antibiotic administration within 60 minutes prior to surgical incision and complete administration prior to surgical incision. To be administered in HOLDING AREA., Pre-op/Pre-Proc 0943 (Given - Provid er: Kayy Cobian CRNA) Naloxone (NARCAN) injection 0.4 mg 0.4 mg, Intravenous, EVERY 15 MINUTES NEEDED, 2 doses, Starting on Kenna 04/26/22 at 1059, Until Sat04/27/22 at 0315, Respiratory Depression, Opioid Reversal, Post-op/Post-Proc Ondansetron 4mg/2ml (ZOFRAN) injection 4 mg 4 mg, Intravenous, EVERY 4 HOURS NEEDED, Starting on Kenna 04/26/22 at 1059, Until Sat04/27/22 at 0315, Nausea / Vomiting, 1st line, Post-op/Post-Proc Sodium chloride 0.9 % irrigation NEEDED, Starting on Kenna 04/26/22 at 0959, Until Sat04/27/22 at 0315, Intra-op/Intra-Proc 0959 (Given - Provid er: Neno Domínguez MD) Sterile water irrigation NEEDED, Starting on Kenna 04/26/22 at 0959, Until Sat04/27/22 at 0315, Intra-op/Intra-Proc 0959 (Given - Provid er: Neno Domínguez MD) traMADol (ULTRAM) tablet 50 mg 50 mg, Oral, EVERY 6 HOURS NEEDED, Starting on Kenna 04/26/22 at 1059, Until Sat04/27/22 at 0315, Moderate Pain, Post-op/Post-Proc Care Teams (unrecognized sec tion and content) Team Status: Active Member Role Status Dates Dr. Danielle Hernandez MD Primary Care Provider Active Team Status: Inactive Member Role Status Dates Dr. Danielle Hernandez MD Primary Care Provider Active Start: March 31, 2024 End: March 31, 2024 Danielle PLEITEZ MD Attending Provider Active Start: March 31, 2024 End: March 31, 2024 Danielle PLEITEZ MD Referring Provider Active Start: March 31, 2024 End: March 31, 2024 Team Status: Inactive Member Role Status Dates Dr. Danielle Hernandez MD Primary Care Provider Active Start: April 02, 2024 End: April 02, 2024 ADRIANNA Colvin Attending Provider Active St art: April 02, 2024 End: April 02, 2024 Team Status: Inactive Member Role Status Dates Dr. Danielle Hernandez MD Primary Care Provider Active Start: May 01, 2024 End: May 01, 2024 Danielle PLEITEZ MD Attending Provider Active Start: May 01, 2024 End: May 01, 2024 Danielle PLEITEZ MD Referring Provider Active Start: May 01, 2024 End: May 01, 2024 Team Status: Inactive Member Role Status Dates Dr. Danielle Hernandez MD Primary Care Provider Active Start: May 05, 2024 End: May 05, 2024 Dr. Danielle Hernandez MD Attending Provider Active Start: May 05, 2024 End: May 05, 2024 Team Status: Inactive Member Role Status Dates Dr. Danielle Hernandez MD Primary Care Provider Active Start: May 07, 2024 End: May 07, 2024 Dr. Danielle Hernandez MD Referring Provider Active Start: May 07, 2024 End: May 07, 2024 Dr. Yadira Desouza MD Attending Provider Active Start: May 07, 2024 End: May 07, 2024 Team Status: Active Member Role Status Dates Dr. Danielle Hernandez MD Primary Care Provider Active Start: May 10, 2024 Danielle PLEITEZ MD Attending Provider Active Start: May 10, 2024 Team Status: Active Member Role Status Dates Dr. Danielle Hernandez MD Primary Care Provider Active Start: May 14, 2024 Danielle PLEITEZ MD Attending Provider Active Start: May 14, 2024 Team Status: Inactive Member Role Status Dates Dr. Danielle Hernandez MD Primary Care Provider Active Start: May 25, 2024 End: May 25, 2024 iDandra Abdi NP, [employer]STUME SHOP COORDINATOR-C Attending Provider Active Start: May 25, 2024 End: May 25, 2024 Team Status: Inactive Member Role Status Dates Dr. Danielle Hernandez MD Primary Care Provider Active Start: May 29, 2024 End: May 29, 2024 ADRIANNA Cerda Attending Provider Active Star t: May 29, 2024 End: May 29, 2024 ADRIANNA Cerda Referring Provider Active Star t: May 29, 2024 End: May 29, 2024 Team Status: Active Member Role Status Dates Dr. Danielle Hernandez MD Primary Care Provider Active Start: May 29, 2024 Dr. Jimy Goldstein MD Attending Provider Active S tart: May 29, 2024 ADRIANNA Cerda Referring Provider Active Star t: May 29, 2024 Team Status: Inactive Member Role Status Dates Dr. Danielle Hernandez MD Primary Care Provider Active Start: May 29, 2024 End: May 29, 2024 Dr. Danielle Hernandez MD Referring Provider Active Start: May 29, 2024 End: May 29, 2024 ADRIANNA Cerda Attending Provider Active Star t: May 29, 2024 End: May 29, 2024 Team Status: Inactive Member Role Status Dates Dr. Danielle Hernandez MD Primary Care Provider Active Start: June 01, 2024 End: June 01, 2024 Diandra Abdi NP, COSTUME SHOP COORDINATOR-C Attending Provider Active Start: June 01, 2024 End: June 01, 2024 Team Status: Inactive Member Role Status Dates Dr. Danielle Hernandez MD Primary Care Provider Active Start: June 10, 2024 End: June 10, 2024 Diandra Abdi NP, COSTUME SHOP COORDINATOR-C Attending Provider Active Start: June 10, 2024 End: June 10, 2024 Team Status: Inactive Member Role Status Dates Dr. Danielle Hernandez MD Primary Care Provider Active Start: June 15, 2024 End: June 15, 2024 Dr. Hyacinth Quiles DPM Attending Provider Active Start: June 15, 2024 End: June 15, 2024 Team Status: Inactive Member Role Status Dates Dr. Danielle Hernandez MD Primary Care Provider Active Start: June 26, 2024 End: June 26, 2024 Danielle PLEITEZ MD Attending Provider Active Start: June 26, 2024 End: June 26, 2024 Team Status: Inactive Member Role Status Dates Dr. Danielle Hernandez MD Primary Care Provider Active Start: July 21, 2024 End: July 21, 2024 Dr. Hyacinth Quiles DPM Attending Provider Active Start: July 21, 2024 End: July 21, 2024 Team Status: Active Member Role Status Dates Dr. Danielle Hernandez MD Primary Care Provider Active Start: February 28, 2024 Danielle PLEITEZ MD Attending Provider Active Start: February 28, 2024 Team Status: Inactive Member Role Status Dates Dr. Danielle Hernandez MD Primary Care Provider Active Start: March 06, 2024 End: March 06, 2024 Dr. Danielle Hernandez MD Referring Provider Active Start: March 06, 2024 End: March 06, 2024 ADRIANNA Cerda Attending Provider Active Star t: March 06, 2024 End: March 06, 2024 Team Status: Inactive Member Role Status Dates Dr. Danielle Hernandez MD Primary Care Provider Active Start: March 10, 2024 End: March 10, 2024 Dr. Danielle Hernandez MD Attending Provider Active Start: March 10, 2024 End: March 10, 2024 Team Status: Inactive Member Role Status Dates Dr. Danielle Hernandez MD Primary Care Provider Active Start: March 30, 2024 End: March 30, 2024 Diandra PLEITEZ COSTUME SHOP COORDINATORThomasC Attending Provider Active Start: March 30, 2024 End: March 30, 2024 Redrying Machine Operator Relationship Specialty Start Date End Date Grace Gtz MD [address] [address] PCP - General Family Medicine 06/16/13 Marcial Bettencourt DO [address] [address] PCP - Referring 1 Cardiovascular Disease 06/17/14 Anshul Flores MD, PhD [address] [address] PCP - Referring 2 Urology 06/17/14 Anshul Flores MD, PhD [address] [address] Consulting Physician Urology 07/05/10 Benigno Cardoso MD [address] [place] [address] Urologist Urology 06/08/14 Redrying Machine Operator Relationship Specialty Start Date End Date Grace Gtz MD [address] [address] PCP - General Family Medicine 06/16/13 Marcial Bettencourt DO [address] [address] PCP - Referring 1 Cardiovascular Disease 06/17/14 Anshul Flores MD, PhD [address] [place] [id number] PCP - Referring 2 Urology 06/17/14 Anshul Flores MD, PhD [address] [place] [id number] Consulting Physician Urology 07/05/10 Benigno Cardoso MD [address] [place] [address] Urologist Urology 06/08/14 Redrying Machine Operator Relationship Specialty Start Date End Date Grace Gtz MD [address] [place] [id number] PCP - General Family Medicine 06/16/13 Marcial Bettencourt DO [address] [id number] PCP - Referring 1 Cardiovascular Disease 06/17/14 Anshul Flores MD, PhD [address] [id number] PCP - Referring 2 Urology 06/17/14 Anshul Flores MD, PhD [address] [address] Consulting Physician Urology 07/05/10 Benigno Cardoso MD [address] [place] [address] Urologist Urology 06/08/14 Redrying Machine Operator Relationship Specialty Start Date End Date Grace Gtz MD [address] [address] PCP - General Family Medicine 06/16/13 Marcial Bettencourt DO [address] [place] [id number] PCP - Referring 1 Cardiovascular Disease 06/17/14 Anshul Flores MD, PhD [address] [id number] PCP - Referring 2 Urology 06/17/14 Anshul Flores MD, PhD [address] [id number] Consulting Physician Urology 07/05/10 Benigno Cardoso MD [address] [place] [address] Urologist Urology 06/08/14 Redrying Machine Operator Relationship Specialty Start Date End Date Grace Gtz MD [address] [address] PCP - General Family Medicine 06/16/13 Marcial Bettencourt DO [address] [address] PCP - Referring 1 Cardiovascular Disease 06/17/14 Anshul Flores MD, PhD [address] [address] PCP - Referring 2 Urology 06/17/14 Anshul Flores MD, PhD [address] [address] Consulting Physician Urology 07/05/10 Benigno Cardoso MD [address] [place] [address] Urologist Urology 06/08/14 Team Status: Active Member Role Status Dates GRACE GARCIA Primary Care Provider Active Team Status: Inactive Member Role Status Dates Dr. Brendon Hope DO Emergency Provider Active YUNIOR AUGUSTIN Primary Care Provider Active Team Status: Inactive Member Role Status Dates Dr. Yadira Desouza MD Attending Provider Active Team Status: Inactive Member Role Status Dates Dr. Brendon Hope DO Attending Provider, Emergency P rovider Active YUNIOR AUGUSTIN Primary Care Provider Active Team Status: Active Member Role Status Dates Danielle PLEITEZ MD Attending Provider Active Team Status: Inactive Member Role Status Dates Dr. Jose Daniel Rivera MD Emergency Provider Active Dr. Danielle Hernandez MD Primary Care Provider Active Team Status: Inactive Member Role Status Dates Danielle PLEITEZ MD Attending Provider Active Dr. Danielle Hernandez MD Primary Care Provider Active Team Status: Inactive Member Role Status Dates Dr. Jose Daniel Rivera MD Attending Provider, Emergency Pro vider Active Dr. Danielle Hernandez MD Primary Care Provider Active Team Status: Active Member Role Status Dates Dr. Danielle Hernandez MD Primary Care Provider Active AMERICA Velazquez Attending Provider Active Team Status: Inactive Member Role Status Dates Dr. Danielle Hernandez MD Primary Care Provider Active AMERICA Velazquez Attending Provider Active Team Status: Inactive Member Role Status Dates Dr. Danielle Hernandez MD Primary Care Provider, Atten ding Provider Active Team Status: Inactive Member Role Status Dates Dr. Danielle Hernandez MD Primary Care Provider Active Danielle PLEITEZ MD Attending Provider Active Team Status: Active Member Role Status Dates Génesis Bergeron COSTUME SHOP COORDINATOR, COSTUME SHOP COORDINATOR-C Attending Provider, Referring P rovider Active Dr. Danielle Hernandez MD Primary Care Provider Active Team Status: Inactive Member Role Status Dates Dr. Danielle Hernandez MD Primary Care Provider Active Diandra Abdi COSTUME SHOP COORDINATOR, COSTUME SHOP COORDINATOR-C Attending Provider Active Team Status: Inactive Member Role Status Dates Génesis Bergeron COSTUME SHOP COORDINATOR, COSTUME SHOP COORDINATOR-C Attending Provider, Referring P rovider Active Dr. Danielle Hernandez MD Primary Care Provider Active Team Status: Inactive Member Role Status Dates Dr. Danielle Hernandez MD Primary Care Provider Active Deion RODAS, [place] Attending Provider Active Team Status: Inactive Member Role Status Dates Dr. Danielle Hernandez MD Primary Care Provider Active Danielle PLEITEZ MD Attending Provider, Referring Provider Active Redrying Machine Operator Relationship Specialty Start Date End Date Grace Gtz MD PCP - General Family Medicine 06/16/13 Marcial Bettencourt DO PCP - Referring 1 Cardiovascular Disease 06/17/14 Anshul Flores MD, PhD [address] [address] PCP - Referring 2 Urology 06/17/14 Anshul Flores MD, PhD [address] [address] Consulting Physician Urology 07/05/10 Benigno Cardoso MD [address] [place] [address] Urologist Urology 06/08/14 Redrying Machine Operator Relationship Specialty Start Date End Date Grace Gtz MD PCP - General Family Medicine 06/16/13 Marcial Bettencourt DO PCP - Referring 1 Cardiovascular Disease 06/17/14 Anshul Flores MD, PhD [address] [address] PCP - Referring 2 Urology 06/17/14 Anshul Flores MD, PhD [address] [address] Consulting Physician Urology 07/05/10 Benigno Cardoso MD [address] [place] [address] Urologist Urology 06/08/14 Redrying Machine Operator Relationship Specialty Start Date End Date Grace Gtz MD PCP - General Family Medicine 06/16/13 Marcial Bettencourt DO PCP - Referring 1 Cardiovascular Disease 06/17/14 Anshul Flores MD, PhD [address] [address] PCP - Referring 2 Urology 06/17/14 Anshul Flores MD, PhD [address] [address] Consulting Physician Urology 07/05/10 Benigno Cardoso MD [address] [place] [address] Urologist Urology 06/08/14 Redrying Machine Operator Relationship Specialty Start Date End Date Grace Gtz MD PCP - General Family Medicine 06/16/13 Marcial Bettencourt DO PCP - Referring 1 Cardiovascular Disease 06/17/14 Anshul Flores MD, PhD [address] [address] PCP - Referring 2 Urology 06/17/14 Anshul Flores MD, PhD [address] [address] Consulting Physician Urology 07/05/10 Benigno Cardoso MD [address] [place] [address] Urologist Urology 06/08/14 Redrying Machine Operator Relationship Specialty Start Date End Date Grace Gtz MD PCP - General Family Medicine 06/16/13 Marcial Bettencourt DO PCP - Referring 1 Cardiovascular Disease 06/17/14 Anshul Flores MD, PhD [address] [address] PCP - Referring 2 Urology 06/17/14 Anshul Flores MD, PhD [address] [address] Consulting Physician Urology 07/05/10 Benigno Cardoso MD [address] [place] [address] Urologist Urology 06/08/14 Redrying Machine Operator Relationship Specialty Start Date End Date Grace Gtz MD PCP - General Family Medicine 06/16/13 Marcial Bettencourt DO PCP - Referring 1 Cardiovascular Disease 06/17/14 Anshul Flores MD, PhD [address] [address] PCP - Referring 2 Urology 06/17/14 Anshul Flores MD, PhD [address] [address] Consulting Physician Urology 07/05/10 Benigno Cardoso MD [address] [place] [address] Urologist Urology 06/08/14 Redrying Machine Operator Relationship Specialty Start Date End Date Grace Gtz MD PCP - General Family Medicine 06/16/13 Marcial Bettencourt DO PCP - Referring 1 Cardiovascular Disease 06/17/14 Anshul Flores MD, PhD [address] [address] PCP - Referring 2 Urology 06/17/14 Anshul Flores MD, PhD [address] [address] Consulting Physician Urology 07/05/10 Benigno Cardoso MD [address] [place] [address] Urologist Urology 06/08/14 Redrying Machine Operator Relationship Specialty Start Date End Date Grace Gtz MD PCP - General Family Medicine 06/16/13 Marcial Bettencourt DO PCP - Referring 1 Cardiovascular Disease 06/17/14 Anshul Flores MD, PhD 500 [place] [address] PCP - Referring 2 Urology 06/17/14 Anshul Flores MD, PhD [address] [address] Consulting Physician Urology 07/05/10 Benigno Cardoso MD [address] [place] [address] Urologist Urology 06/08/14 Redrying Machine Operator Relationship Specialty Start Date End Date Grace Gtz MD PCP - General Family Medicine 06/16/13 Marcial Bettencourt DO PCP - Referring 1 Cardiovascular Disease 06/17/14 Anshul Flores MD, PhD [address] [address] PCP - Referring 2 Urology 06/17/14 Anshul Flores MD, PhD [address] [address] Consulting Physician Urology 07/05/10 Benigno Cardoso MD [address] [place] [address] Urologist Urology 06/08/14 Redrying Machine Operator Relationship Specialty Start Date End Date Grace Gtz MD PCP - General Family Medicine 06/16/13 Marcial Bettencourt DO PCP - Referring 1 Cardiovascular Disease 06/17/14 Anshul Flores MD, PhD 500 [place] [address] PCP - Referring 2 Urology 06/17/14 Anshul Flores MD, PhD 500 [place] [address] Consulting Physician Urology 07/05/10 Benigno Cardoso MD [address] [place] [address] Urologist Urology 06/08/14 Redrying Machine Operator Relationship Specialty Start Date End Date Grace Gtz MD PCP - General Family Medicine 06/16/13 Marcial Bettencourt DO PCP - Referring 1 Cardiovascular Disease 06/17/14 Anshul Flores MD, PhD [address] [place] [id number] PCP - Referring 2 Urology 06/17/14 Anshul Flores MD, PhD [address] [place] [id number] Consulting Physician Urology 07/05/10 Benigno Cardoso MD [address] [place] [address] Urologist Urology 06/08/14 Team Status: Inactive Member Role Status Dates Dr. Danielle Hernandez MD Primary Care Provider Active Start: June 23, 2024 End: June 23, 2024 Dr. Danielle Hernandez MD Attending Provider Active Start: June 23, 2024 End: June 23, 2024 Team Status: Inactive Member Role Status Dates Dr. Danielle eHrnandez MD Primary Care Provider Active Start: August 07, 2024 End: August 07, 2024 Dr. Yadira Desouza MD Attending Provider Active Start: August 07, 2024 End: August 07, 2024 Dr. Yadira Desouza MD Referring Provider Active Start: August 07, 2024 End: August 07, 2024 Team Status: Active Member Role Status Dates Dr. Danielle Hernandez MD Primary Care Provider Active Start: August 07, 2024 Dr. Yadira Desouza MD Attending Provider Active Start: August 07, 2024 Team Status: Inactive Member Role Status Dates Dr. Danielle Hernandez MD Primary Care Provider Active Start: July 30, 2024 End: July 30, 2024 ADRIANNA Colvin Attending Provider Active St art: July 30, 2024 End: July 30, 2024 Team Status: Active Member Role Status Dates Dr. Danielle Hernandez MD Primary Care Provider Active Start: August 26, 2024 Danielle PLEITEZ MD Attending Provider Active Start: August 26, 2024 Team Status: Active Member Role Status Dates Dr. Danielle Hernandez MD Primary Care Provider Active Start: August 28, 2024 Danielle PLEITEZ MD Attending Provider Active Start: August 28, 2024 Team Status: Inactive Member Role Status Dates Dr. Danielle Hernandez MD Primary Care Provider Active Start: August 10, 2024 End: August 10, 2024 Diandra Abdi NP, COSTUME SHOP COORDINATOR-C Attending Provider Active Start: August 10, 2024 End: August 10, 2024 Team Status: Active Member Role/Relationship Status Dates Dr. Danielle Hernandez MD Primary Care Provider Active Team Status: Inactive Member Role/Relationship Status Dates Dr. Danielle Hernandez MD Primary Care Provider Active Start: June 15, 2024 End: June 15, 2024 Dr. Hyacinth Quiles DPM Attending Provider Active Start: June 15, 2024 End: June 15, 2024 Team Status: Inactive Member Role/Relationship Status Dates Dr. Danielle Hernandez MD Primary Care Provider Active Start: June 23, 2024 End: June 23, 2024 Dr. Danielle Hernandez MD Attending Provider Active Start: June 23, 2024 End: June 23, 2024 Team Status: Inactive Member Role/Relationship Status Dates Dr. Danielle Hernandez MD Primary Care Provider Active Start: June 26, 2024 End: June 26, 2024 Danielle PLEITEZ MD Attending Provider Active Start: June 26, 2024 End: June 26, 2024 Team Status: Inactive Member Role/Relationship Status Dates Dr. Danielle Hernandez MD Primary Care Provider Active Start: July 21, 2024 End: July 21, 2024 Dr. Hyacinth Quiles DPM Attending Provider Active Start: July 21, 2024 End: July 21, 2024 Team Status: Inactive Member Role/Relationship Status Dates Dr. Danielle Hernandez MD Primary Care Provider Active Start: July 30, 2024 End: July 30, 2024 ADRIANNA Colvin Attending Provider Active St art: July 30, 2024 End: July 30, 2024 Team Status: Inactive Member Role/Relationship Status Dates Dr. Danielle Hernandez MD Primary Care Provider Active Start: August 07, 2024 End: August 07, 2024 Dr. Yadira Desouza MD Attending Provider Active Start: August 07, 2024 End: August 07, 2024 Dr. Yadira Desouza MD Referring Provider Active Start: August 07, 2024 End: August 07, 2024 Team Status: Active Member Role/Relationship Status Dates Dr. Danielle Hernandez MD Primary Care Provider Active Start: August 07, 2024 Dr. Yadira Desouza MD Attending Provider Active Start: August 07, 2024 Team Status: Inactive Member Role/Relationship Status Dates Dr. Danielle Hernandez MD Primary Care Provider Active Start: August 10, 2024 End: August 10, 2024 Diandra Abdi COSTUME SHOP COORDINATOR, COSTUME SHOP COORDINATOR-C Attending Provider Active Start: August 10, 2024 End: August 10, 2024 Team Status: Inactive Member Role/Relationship Status Dates Dr. Danielle Hernandez MD Primary Care Provider Active Start: August 25, 2024 End: August 25, 2024 Dr. Danielle Hernandez MD Attending Provider Active Start: August 25, 2024 End: August 25, 2024 Team Status: Active Member Role/Relationship Status Dates Dr. Danielle Hernandez MD Primary Care Provider Active Start: August 26, 2024 Danielle PLEITEZ MD Attending Provider Active Start: August 26, 2024 Team Status: Active Member Role/Relationship Status Dates Dr. Danielle Hernandez MD Primary Care Provider Active Start: August 28, 2024 Danielle PLEITEZ MD Attending Provider Active Start: August 28, 2024 Team Status: Inactive Member Role/Relationship Status Dates Dr. Danielle Hernandez MD Primary Care Provider Active Start: July 21, 2024 End: July 21, 2024 Dr. Hyacinth Quiles DPM Attending Provider Active Start: July 21, 2024 End: July 21, 2024 Team Status: Inactive Member Role/Relationship Status Dates Dr. Danielle Hernandez MD Primary Care Provider Active Start: July 30, 2024 End: July 30, 2024 ADRIANNA Colvin Attending Provider Active St art: July 30, 2024 End: July 30, 2024 Team Status: Inactive Member Role/Relationship Status Dates Dr. Danielle Hernandez MD Primary Care Provider Active Start: August 07, 2024 End: August 07, 2024 Dr. Yadira Desouza MD Attending Provider Active Start: August 07, 2024 End: August 07, 2024 Dr. Yadira Desouza MD Referring Provider Active Start: August 07, 2024 End: August 07, 2024 Team Status: Active Member Role/Relationship Status Dates Dr. Danielle Hernandez MD Primary Care Provider Active Start: August 07, 2024 Dr. Yadira Desouza MD Attending Provider Active Start: August 07, 2024 Team Status: Inactive Member Role/Relationship Status Dates Dr. Danielle Hernandez MD Primary Care Provider Active Start: August 10, 2024 End: August 10, 2024 Diandra Abdi COSTUME SHOP COORDINATOR, COSTUME SHOP COORDINATOR-C Attending Provider Active Start: August 10, 2024 End: August 10, 2024 Team Status: Inactive Member Role/Relationship Status Dates Dr. Danielle Hernandez MD Primary Care Provider Active Start: August 25, 2024 End: August 25, 2024 Dr. Danielle Hernandez MD Attending Provider Active Start: August 25, 2024 End: August 25, 2024 Team Status: Active Member Role/Relationship Status Dates Dr. Danielle Hernandez MD Primary Care Provider Active Start: August 26, 2024 Danielle PLEITEZ MD Attending Provider Active Start: August 26, 2024 Team Status: Active Member Role/Relationship Status Dates Dr. Danielle Hernandez MD Primary Care Provider Active Start: August 28, 2024 Danielle PLEITEZ MD Attending Provider Active Start: August 28, 2024 Team Status: Inactive Member Role/Relationship Status Dates Dr. Danielle Hernandez MD Primary Care Provider Active Start: October 01, 2024 End: October 01, 2024 Deion RODAS PA Attending Provider Active St art: October 01, 2024 End: October 01, 2024 Team Status: Inactive Member Role/Relationship Status Dates Dr. Danielle Hernandez MD Primary Care Provider Active Start: November 05, 2024 End: November 05, 2024 Dr. Danielle Hernandez MD Referring Provider Active Start: November 05, 2024 End: November 05, 2024 Génesis Bergeron COSTUME SHOP COORDINATOR, COSTUME SHOP COORDINATOR-C Attending Provider Active Start: November 05, 2024 End: November 05, 2024 Team Status: Inactive Member Role/Relationship Status Dates Dr. Danielle Hernandez MD Primary Care Provider Active Start: October 27, 2024 End: October 27, 2024 Dr. Danielle Hernandez MD Attending Provider Active Start: October 27, 2024 End: October 27, 2024 Team Status: Inactive Member Role/Relationship Status Dates Dr. Danielle Hernandez MD Primary Care Provider Active Start: November 05, 2024 End: November 05, 2024 Dr. Danielle Hernandez MD Referring Provider Active Start: November 05, 2024 End: November 05, 2024 Génesis Bergeron NP, COSTUME SHOP COORDINATOR-C Attending Provider Active Start: November 05, 2024 End: November 05, 2024 Source Comments (unrecognize d section and content) In the event this informatio n is protected by the Federal Confidentiality of Alcohol and Drug Abuse Patient Records regulations: The Federal rules restrict any use of the information to criminally investigate or prosecute any alcohol or drug abuse patient.In the event this information is protected by the Federal Confidentiality of Alcohol and Drug Abuse Patient Records regulations: The Federal rules restrict any use of the information to criminally investigate or prosecute any alcohol or drug abuse patient.In the event this information is protected by the Federal Confidentiality of Alcohol and Drug Abuse Patient Records regulations: The Federal rules restrict any use of the information to criminally investigate or prosecute any alcohol or drug abuse patient. FOR RECORDS PERTAINING TO PATIENTS WHO ARE OR HAVE BEEN ENROLLED IN A CHEMICAL DEPENDENCY/SUBSTANCEABUSE PROGRAM, SOME INFORMATION MAY BE OMITTED. This clinical summary was aggregated from multiple sources. Caution should be exercised in using it in the provision of clinical care. This summary normalizes information from multiple sources, and as a consequence, information in this document may materially change the coding, format and clinical context of patient data. In addition, data may be omitted in some cases. CLINICAL DECISIONS SHOULD BE BASED ON THE PRIMARY CLINICAL RECORDS. [employer] [facility]. provides no warranty or guarantee of the accuracy or completeness of information in this document.
[2024-11-26 08:02] LABS: Hematocrit 46.1 % (40-54); Hemoglobin 15.5 g/dL (13.0-16.5); Immature Granulocytes Count 0.040 X10^3/uL (0.0-0.0); Mean Corp Hgb Conc 33.6 g/dL (32-36); Mean Corpuscular Volume 102.2 fL (80-94); Mean Platelet Vol. 12.3 fl (6.2-12.0); NRBC Flagged by Analyzer 0 % (0-5); Platelet Count 107 K/mm3 (150-450); RBC Distribution Width CV 14.8 % (11.6-14.6); RBC Distribution Width SD 56.1 fl (35.1-43.9); Red Blood Count 4.51 M/mm3 (4.6-6.2); White Blood Count 10.2 K/mm3 (4.4-11.0)
[2024-11-26 08:47] LABS: AST(SGOT) 20 U/L (<=37); Alanine Aminotransfer ALT/SGPT 12 U/L (<=46); Albumin, Serum 3.9 g/dL (3.4-4.8); Alkaline Phosphatase 175 U/L (40-129); Anion Gap 14 (5-15); BUN 40 mg/dL (4-19); BUN/Creat Ratio 32.2 RATIO (10-20); Bilirubin, Direct 0.17 mg/dL (0.00-0.30); Calcium,Total 9.8 mg/dL (7.6-11.0); Carbon Dioxide 20.4 mmol/L (21.0-32.0); Chloride 101 mmol/L (98-108); Globulin 2.7 g/dL (2.2-4.2); Glucose 130 mg/dL (70-99); Potassium 4.8 mmol/L (3.3-5.1)
== END ==
LOC: OLS.WHLTSB 05:00
PROVIDERS: PCP Internal Medicine; Visit Provider Internal Medicine
DX: I10 Essential (primary) hypertension (principal); E11.9 Type 2 diabetes mellitus without complications
CPT/HCPCS: 36415; 80048; 80076; 83036; 85025

== ENCOUNTER → 2025-02-25 05:00 | Outpatient (REF) | payer MEDICARE, SELFPAY ==
--- OUTSIDE RECORDS SUMMARY | 2025-02-25 03:55 | XMS RPT_ITS | CCD ---
Author Organization [facility] Informat ion Partnership [facility] Care Team Providers Care Sand Caster Name Role Phone Juan Wilson Attending Unavailable YuniorGrace Donovan Primary Care Unavailab le Yunior-CalliGrace Attending Unavailab le Yunior-MidlothianGrace Referring Unavailab le Yunior-MidlothianGrace Primary Care Unavailab le Yunior-CalliGrace Attending Unavailab le Yunior-MidlothianGrace Primary Care Unavailab Mary Kay Kaiser Attending Unavailable MaryK ay Ty Referring Unavailable Yunior-MidlothianGrace Primary Care Unavailab Neno Corona Attending Unavailable Neno Domínguez Referring Unavailable Yunior-Calli, Grace Ervin Primary Care Unavailab Neno Corona Attending Unavailable Neno Domínguez Referring Unavailable Yunior-MidlothianGrace Primary Care Unavailab le Yunior-[place], Grace Ervin Primary Care Unavailab Maximino Pete Attending Unavailable EsNeno stinson Attending Unavailable Neno Domínguez Referring Unavailable Yunior-[place]loth[place], Grace Ervin Primary Care Unavailab le Yunior-CalliGrace Primary Care Unavailab Haroon Griffith Admitting Unavailable Neno Domínguez Consulting Unavailable Matt Parisi Attending Unavailable Mario Szymanski Consulting Unavailable Reji Anderson Consulting Unavailable Haroon Patel Consulting Unavailable Belgica Elizondo Consulting Unavailable Deion Burks Consulting Unavailable Darlene Ng Consulting Unavailable Wilmar Rosales Consulting Unavailable Suhail Zamudio Consulting Unavailable Ramesh Stringer Consulting Unavailable Juan Wilson Attending Unavailable Juan Wilson Referring Unavailable Yunior-Calli, Grace M Primary Care Unavailab Mary Kay Kaiser Attending Unavailable Yunior-Calli, Grace M Primary Care Unavailab le Yunior-[place], Grace Ervin Primary Care Provider Neno Domínguez Attending Provider [phone] Yunior-Calli, Grace M Attending Provider ELLY KIM Attending Unavailable YUNIOR-CALLI, GRACE OLIVER Primary Care Unava keyla Flores MD, PhD, Anshul Melvin Unavailable [phone] Grace Gtz MD Primary Care Provider Marcial Bettencourt DO Unavailable Mark SHETTY, PhD, Anshul Melvin Unavailable Benigno Cardoso MD Unavailable YUNIOR-CALLI, GRACE Referring Unavailable YUNIOR-CALLI, GRACE [...] Care Unavailable SELF, SELF Referring Unavailable YUNIOR-CALLI, [facility] Primary Care Unavailable NENO DOMÍNGUEZ Attending Unavailable YUNIOR-CALLI, GRACE Attending Unavailable YUNIOR-CALLI, GRACE Referring Unavailable YUNIOR-CALLI, GRACE Primary Care Unavailable YUNIOR-CALLI, GRACE Attending Unavailable YUNIOR-CALLI, GRACE Referring Unavailable YUNIOR-CALLI, [facility] Primary Care Unavailable YUNIOR-CALLI, GRACE Attending Unavailable YUNIOR-CALLI, GRACE Referring Unavailable YUNIOR-CALLI, [facility] Primary Care Unavailable JAIME DICKEY Attending Unavailable JAIME DICKEY Referring Unavailable YUNIOR-CALLI, [facility] Primary Care Unavailable JAIME DICKEY Attending Unavailable SELF, SELF Referring Unavailable YUNIOR-CALLI, GRACE Primary Care Unavailable YUNIOR-CALLI, GRACE Attending Unavailable YUNIOR-CALLI, GRACE Referring Unavailable YUNIOR-CALLI, GRACE Primary Care Unavailable YUNIOR-CALLI, GRACE Attending Unavailable YUNIOR-CALLI, GRACE Referring Unavailable YUNIOR-CALLI, GRACE Primary Care Unavailable YUNIOR-CALLI, GRACE Referring Unavailable YUNIOR-CALLI, GRACE Primary Care Unavailable YUNIOR-CALLI, GRACE Attending Unavailable YUNIOR-CALLI, GRACE Referring Unavailable YUNIOR-CALLI, [facility] Primary Care Unavailable YUNIOR-CALLI, GRACE Referring Unavailable YUNIOR-CALLI, [facility] Primary Care Unavailable ANSHUL MCCORMICK Attending Unavailable YUNIOR-CALLI, GRACE Referring Unavailable YUNIOR-CALLI, [facility] Primary Care Unavailable YUNIOR-CALLI, GRACE Attending Unavailable YUNIOR-CALLI, GRACE Referring Unavailable YUNIOR-CALLI, [facility] Primary Care Unavailable YUNIOR-CALLI, GRACE Attending Unavailable YUNIOR-CALLI, GRACE Referring Unavailable YUNIOR-CALLI, [facility] Primary Care Unavailable YUNIOR-CALLI, GRACE Referring Unavailable YUNIOR-CALLI, [facility] Primary Care Unavailable YUNIOR-CALLI, GRACE Attending Unavailable YUNIOR-CALLI, GRACE Referring Unavailable YUNIOR-CALLI, [facility] Primary Care Unavailable YUNIOR-CALLI, [facility] Primary Care Unavailable JUAN WILSON Attending Unavailable JUAN WILSON Referring Unavailable YUNIOR-CALLI, GRACE Referring Unavailable YUNIOR-CALLI, [facility] Primary Care Unavailable SELF, SELF Referring Unavailable YUNIOR-CALLI, [facility] Primary Care Unavailable JUAN WILSON Attending Unavailable YUNIOR-CALLI, GRACE Referring Unavailable YUNIOR-CALLI, [facility] Primary Care Unavailable YUNIOR-CALLI, [facility] Primary Care Unavailable JUAN WILSON Attending Unavailable WILSONJUAN Referring Unavailable YUNIOR-CALLI, [facility] Primary Care Unavailable JUAN WILSON Attending Unavailable WILSONJUAN Referring Unavailable YUNIOR-CALLI, [facility] Primary Care Unavailable JUAN WILSON Attending Unavailable WILSONAMBREENEZ Referring Unavailable YUNIOR-CALLI, GRACE Referring Unavailable YUNIOR-CALLI, [facility] Primary Care Unavailable YUNIOR-CALLI, GRACE Attending Unavailable YUNIOR-CALLI, GRACE Referring Unavailable YUNIOR-CALLI, [facility] Primary Care Unavailable YUNIOR-CALLI, GRACE Attending Unavailable YUNIOR-CALLI, GRACE Referring Unavailable YUNIOR-CALLI, [facility] Primary Care Unavailable SELF, SELF Referring Unavailable YUNIOR-CALLI, [facility] Primary Care Unavailable NENO DOMÍNGUEZ Attending Unavailable YUNIOR-CALLI, GRACE Referring Unavailable YUNIOR-CALLI, [facility] Primary Care Unavailable YUNIOR-CALLI, [facility] Primary Care Unavailable YUNIOR-CALLI, [facility] Primary Care Unavailable YUNIOR-CALLI, [facility] Primary Care Unavailable YUNIOR-CALLI, [facility] Primary Care Unavailable YUNIOR-CALLI, [facility] Primary Care Unavailable YUNIOR-CALLI, [facility] Primary Care Unavailable YUNIOR-CALLI, [facility] Primary Care Unavailable SELF, SELF Referring Unavailable YUNIOR-CALLI, [facility] Primary Care Unavailable JUAN WILSON Attending Unavailable YUNIOR-CALLI, GRACE Referring Unavailable YUNIOR-CALLI, [facility] Primary Care Unavailable YUNIOR-CALLI, GRACE Referring Unavailable YUNIOR-CALLI, [facility] Primary Care Unavailable YUNIOR-CALLI, GRACE Referring Unavailable YUNIOR-CALLI, [facility] Primary Care Unavailable SELF, SELF Referring Unavailable YUNIOR-CALLI, [facility] Primary Care Unavailable YUNIOR-CALLI, GRACE Attending Unavailable YUNIOR-CALLI, GRACE Referring Unavailable YUNIOR-CALLI, [facility] Primary Care Unavailable YUNIOR-CALLI, GRACE Attending Unavailable YUNIOR-CALLI, GRACE Referring Unavailable YUNIOR-CALLI, [facility] Primary Care Unavailable YUNIOR-CALLI, GRACE Referring Unavailable YUNIOR-CALLI, [facility] Primary Care Unavailable YUNIOR-CALLI, GRACE Referring Unavailable YUNIOR-CALLI, [facility] Primary Care Unavailable YUNIOR-CALLI, [facility] Primary Care Unavailable YVON BOYCE Attending Unavailable ZACH SALES Admitting Unavailable CONSULT, SURGERY - ORTHOPAEDICS Consulting Unavailable YUNIOR-CALLI, [facility] Primary Care Unavailable JUAN CARLOS HAHN Attending Unavailable YUNIOR-CALLI, [facility] Primary Care Unavailable JUAN WILSON Admitting Unavailable JUAN WILSON Attending Unavailable JUAN WILSON Referring Unavailable YUNIOR-CALLI, [facility] Primary Care Unavailable ESHAM, NENO Admitting Unavailable ESHAM, NENO Attending Unavailable ESHAM, NENO Referring Unavailable Unavailable Primary Care Provider Unavailabl e ONEAIL, TOÑO Referring Unavailable ONEAIL, TOÑO Referring Unavailable SIXTO KELLY Attending Unavailable Deo, Dr. May Attending Provider Dr. Danielle Hernandez Primary Care Provider [phone] Dr. Danielle Hernandez Attending Provider [phone] Dr. Danielle Hernandez Primary Care Provider [phone] Dr. Danielle Hernandez Attending Provider [phone] Dr. Yadira Desouza Attending Provider Jin AUTO BRAKE MECHANIC, AUTO BRAKE MECHANIC-C Diandra Attending Provider ADRIANNA Starr Attending Provider [phone] YUNIOR-CALLI, GRACE Attending Unavailable YUNIOR-CALLI, GRACE Attending Unavailable YUNIOR-CALLI, GRACE Attending Unavailable YUNIOR-CALLI, GRACE Attending Unavailable YUNIOR-CALLI, GRACE Attending Unavailable YUNIOR-CALLI, GRACE Attending Unavailable MADISON PHILLIP Attending Unavailable Mark SHETTY, PhD, Anshul Melvin Unavailable [phone] Grace Gtz MD Primary Care Provider [phone] Sg CHAVES Marcial Unavailable Mark SHETTY, PhD, Anshul Melvin Unavailable [phone] Benigno Cardoso MD Unavailable Dr. Danielle Hernandez MD Primary Care Provider Danielle Hernandez MD Attending Provider Unavaila Dr. Danielle Gardiner MD Referring Provider [phone] Agueda Elmore Attending Provider Dr. Danielle Hernandez MD Attending Provider [phone] Jin AUTO BRAKE MECHANIC-C, Diandra Attending Provider [phone] Danielle Hernandez MD Referring Provider Deion Monique Attending Provider Deo SHETTY, Dr. May Attending Provider Agueda Elmore Referring Provider Triston SHETTY, Dr. Anh Attending Provider Kb GARCES, Dr. Pineda Attending Provider David SHETTY, Dr. Santos Primary Care Provider David SHETTY, Danielle Attending Provider Unavailmiki Hernandez MD, Dr. Santos Attending Provider David SHETTY, Dr. Santos Referring Provider Diandra Clifford Attending Provider Agueda Elmore Attending Provider David SHETTY, Dr. Santos Primary Care Provider David SHETTY, Danielle Attending Provider Unavailmiki Hernandez MD, Danielle Referring Provider Unavailmiki Desouza MD, Dr. May Referring Provider David [...] David SHETTY, Dr. Santos Attending Provider [phone] Danielle Hernandez MD Attending Provider Unavaila frederick Hernandez MD, Dr. Santos Referring Provider [phone] Génesis Bond Attending Provider David SHETTY, Dr. Santos Primary Care Physician David SHETTY, Dr. Santos Attending Physician [phone] David SHETTY, Danielle Attending Physician Unavail Deion Fu Attending Physician Génesis Bond Attending Physician Oleghe OLS, Efewongbe Referring Unavailabl e Oleghe OLS Efewongbe Attending Unavailabl e Oleghe, Efewongbe Primary Care Unavailable Oleghe, Efewongbe Primary Care Unavailable Oleghe Karen PLEITEZongbe Attending Unavailabl e Oleghe OLS, Efewongbe Attending Unavailabl e Oleghe, Efewongbe Primary Care Unavailable Hyacinth Quiles Attending Unavailable Oleghe, Efewongbe Primary Care Unavailable Hyacinth Quiles Attending Unavailable Oleghe, Efewongbe Primary Care Unavailable Oleghe Karen PLEITEZongbe Attending Unavailabl e Oleghe, Efewongbe Primary Care Unavailable Oleghe OLS Efewongbe Attending Unavailabl e Oleghe, Efewongbe Primary Care Unavailable Yadira Desouza Attending Unavailable Deo, Yadira Referring Unavailable Oleghe, Efewongbe Primary Care Unavailable Diandra Abdi NP Attending Unavailable Oleghe, Efewongbe Primary Care Unavailable Jin AUTO BRAKE MECHANICDiandra Attending Unavailable Oleghe, Efewongbe Primary Care Unavailable Oleghe, Efewongbe Referring Unavailable Champagne, Agueda Attending Unavailable Oleghe, Efewongbe Primary Care Unavailable Jimy Goldstein Attending Unavailable Champagne, Agueda Referring Unavailable Oleghe, Efewongbe Primary Care Unavailable Deo, Yadira Attending Unavailable Oleghe, Efewongbe Primary Care Unavailable Oleghe, Efewongbe Primary Care Unavailable Oleghe, Efewongbe Attending Unavailable Oleghe OLS Efconstantinongbe Attending Unavailabl e Oleghe, Efewongbe Primary Care Unavailable Oleghe, Efewongbe Primary Care Unavailable Diandra Ryan Attending Unavailable Oleghe OLS, Efewongbe Referring Unavailabl e Oleghe OLS, Efewongbe Attending Unavailabl e Oleghe, Efewongbe Primary Care Unavailable Oleghe OLS, Efewongbe Attending Unavailabl e Oleghe, Efewongbe Primary Care Unavailable Oleghe, Efewongbe Attending Unavailable Oleghe, Efewongbe Primary Care Unavailable Oleghe, Efewongbe Primary Care Unavailable Diandra Abdi NP Attending Unavailable Oleghe, Efewongbe Primary Care Unavailable Oleghe, Efewongbe Referring Unavailable Champagne, Agueda Attending Unavailable Champagne, Agueda Referring Unavailable Champagne, Agueda Attending Unavailable Oleghe, Efewongbe Primary Care Unavailable Oleghe, Efewongbe Attending Unavailable Oleghe, Efewongbe Primary Care Unavailable Oleghe OLS, Efewongbe Attending Unavailabl e Oleghe, Efewongbe Primary Care Unavailable Oleghe, Efewongbe Primary Care Unavailable Oleghe, Efewongbe Referring Unavailable Champagne Agueda Attending Unavailable Oleghe, Efewongbe Primary Care Unavailable Deion Starr Attending Unavailable Diandra Abdi NP Attending Unavailable Oleghe, Efewongbe Primary Care Unavailable Oleghe, Efewongbe Primary Care Unavailable Oleghe, Efewongbe Attending Unavailable Oleghe, Efewongbe Primary Care Unavailable Deion Starr Attending Unavailable Oleghe, Efewongbe Referring Unavailable Oleghe, Efewongbe Primary Care Unavailable Génesis Bergeron NP Attending Unavailable Oleghe, Efewongbe Primary Care Unavailable Oleghe, Efewongbe Attending Unavailable Oleghe, Efewongbe Primary Care Unavailable Deion Starr Attending Unavailable Oleghe, Efewongbe Primary Care Unavailable Oleghe, Efewongbe Attending Unavailable Diandra Abdi NP Attending Unavailable Oleghe, Efewongbe Primary Care Unavailable Deion Starr Attending Unavailable Oleghe, Efewongbe Primary Care Unavailable Yadira Desouza Attending Unavailable Oleghe, Efewongbe Referring Unavailable Oleghe, Efewongbe Primary Care Unavailable Oleghe, Efewongbe Referring Unavailable Champagne, Agueda Attending Unavailable Oleghe, Efewongbe Primary Care Unavailable Allergies Allergy Classification Reported Allergen(s) Allergy Type Date of Onset Reaction(s) Facility (20 sources) Penicillins; Translations: [PENICILLINS] Drug allergy (disorder) 1 Swelling [facility] Repository (20 sources) Morphine; Translations: [MORPHINE] Drug Allergy 2 Hallucination [facility] (19 sources) Other Propensity to adverse reactions 1 Hallucination [facility] (4 sources) Penicillins Propensity to adverse reactions to drug 1 Swelling [facility] Work Phone: (20 sources) Penicillins Allergy to substance 3 NEEDS FOLLOW-UP, Anaphylaxis [facility] (3 sources) Penicillins Drug Allergy 3 Unknown [facility] (1 source) Penicillin; Translations: [PENICILLIN G] Drug Allergy 3 [facility] Repository (1 source) MARIJUANA (CANNABIS SATIVA); Translations: [MARIJUANA (CANNABIS SATIVA)] Propensity to adverse reactions to drug (disorder) 3 [facility] Repository Medications Current Medications Medication Drug Class(es) Dates Sig (Normalized) Sig (Original) acetaminophen 500 mg oral capsule (17 sources) Start: 05-07-2024 take 2 capsules by mouth every eight hours as needed Start: 03-21-2023 take 2 tablets enter al [...] oral tablet (5 sources) Opioid Agonist Start: 3 take 1 tablet by mouth every eight [...] tablet Start: 01-11-2021 Hydrocodone/Ac et 5/325 Mg (Belpre 5-325 Mg) 1 TAB Tablet Active 1 [...] by inhalation every four hours as needed Start: 05-29-2024 take 2.5 mg by inhal ation twice daily Start: 03-06-2020 take 1 puff(s) by in [...] 2 puffs as needed 0 07/13/2022 Discontinued Jzfrowne-Alniuyzef-Ndssezq H mb (Jose) 7-7-1.5 gram powder in packet (12 sources) Start: 05-29-2024 Start: 05-29-2024 Arginine-Gluta mine-Calcium Hmb (Jose) 7-7-1.5 gram powder in packet Active NMA PO TWICE A DAY May 29, 2024 1:00am Start: 05-29-2024 Arginine-Gluta mine-Calcium Hmb (Jose) 7-7-1.5 gram powder in packet Discontinued NMA PO TWICE A DAY May 29, 2024 1:00am aspirin 81 mg chewable tablet (20 sources) Platelet Aggregation Inhibitor, Nonsteroidal Anti-inflammatory Drug Start: 02-05-2024 take 1 tablet by mouth once daily Start: 09-13-2022 End: 09-14-2022 take 81 mg by mouth once daily 81 mg, Oral, DAILY, Fir [facility] dose on Kenna 09/13/22 at 0900, Until Discontinued Start: 09-30-2015 take 1 tablet by ghassan th once daily Aspirin Enteric Coated (Aspirin Ec) 81 MG Tablet. Active 81 MG PO daily September 30, 2015 9:57am Start: 11-02-2014 End: 11-04-2014 take 81 mg by mouth once daily Aspirin Discontinued 81 MG PO daily November 02, 2014 9:33am November 04, 2014 8:32am Start: 06-19-2014 take 1 tablet by ghassan once daily aspirin 81 MG Tab Indications: S/P AVR (aortic valve replacement) , History of stroke Take 1 tablet by mouth daily. 0 06/19/2014 Active atorvastatin 20 mg oral tablet (20 sources) HMG-CoA Reductase Inhibitor Start: 05-07-2024 take 1 tablet by mouth once daily Start: 04-22-2023 End: 05-07-2024 take 1 tablet [...] once daily. bisacodyl 10 mg rectal suppository (13 sources) Stimulant Laxative Start: 05-29-2024 Start: 04-27-2020 take 2 tablets by mo [facility] once daily Bisacodyl (Dulcolax) 5 MG Tablet [...] 07/13/2022 Discontinued empagliflozin 25 mg oral tablet (12 sources) Sodium-Glucose Cotransporter 2 Inhibitor Start: 02-05-2024 take 1 tablet by mouth once daily in the morning fexofenadine hydrochloride 180 mg oral tablet (20 sources) Histamine-1 Receptor Antagonist Start: 04-22-2023 End: 02-05-2024 take 1 tablet by mouth once daily as needed Start: 06-19-2014 End: 07-13-2022 take 1 tablet by mouth once daily Fexofenadine Hcl (Allergy Relief) 180 MG Tablet Discontinued 180 MG PO daily August 01, 2016 9:46am March 05, 2020 5:06pm Comment on above: Take 180 mg by mouth once daily. finasteride 5 mg oral tablet (20 sources) 5-alpha Reductase Inhibitor Start: 04-22-2023 take 1 tablet by mouth once daily Start: 06-19-2014 End: 09-14-2022 take 1 tablet by mouth once daily finasteride 5 MG Tab Indications: Hyperplasia of prostate with lower urinary tract symptoms (LUTS) Take 1 tablet by mouth daily. 0 06/19/2014 Active Comment on above: Take 5 mg by mouth o nce daily. Fluticasone Propion/Salmeterol (1 source) Corticosteroid, beta2-Adrenergic Agonist Start: 021 take 1 dose by inhalation twice daily [...] Active loperamide hydrochloride 2 mg oral capsule (12 sources) Opioid Agonist Start: 025 take 1 capsule by mouth every six hours as needed Magnesium (10 sources) take 1 tablet by mouth twice daily MAGNESIUM PO Take 1 tablet by mouth 2 times daily. 0 Active take 1 tablet by mouth once francisco y Magnesium 400 MG tablet Take 1 tablet by mouth daily. 0 Active magnesium hydroxide 80 mg/ml oral suspension (12 sources) Start: 05-29-2024 take 1 mL by mouth o nce daily as needed Start: 05-29-2024 take 1 mL by mouth [...] take 1 tablet by mouth once daily Start: 04-22-2023 End: 04-24-2023 take 1 tablet [...] take 1 tablet by mouth at bedtime Start: 06-19-2014 End: 09-14-2022 take 1 tablet [...] capsule (11 sources) Proton Pump Inhibitor Start: take 2 capsules by mouth once daily [...] spray(s) by mouth three times daily Chloraseptic [place] (Chloraseptic) 177 SPRAY/177 ML Bottle Active 5 SPRAY PO 3 times Daily May 17, 2020 5:22pm polyethylene glycol 3350 29389 mg powder for oral solution (20 sources) Osmotic Laxative Start: 08-12-2014 take 1 dose by mouth once daily as needed polyethylene glycol Pack take 1 Packet by mouth daily as needed. 20 Packet 2 08/12/2014 Active potassium chloride 10 meq extended release oral capsule (20 sources) Start: 11-05-2024 take 2 capsules by mouth once daily in the morning Start: 05-29-2024 take 2 capsules by m [...] take 1 tablet by mouth once daily Start: 06-19-2014 End: 07-13-2022 take 1 tablet by mouth once daily Sertraline (Zoloft) 50 MG Tablet Discontinued 50 MG PO daily November 02, 2014 9:33am March 05, 2020 5:06pm Comment on above: Take 50 mg by mouth once daily. 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 12 tablet 0 04/26/2022 05/01/2022 Active Start: 11-06-2014 take 1 tablet by ghassan th every four hours as needed traMADol 50 [...] UNIT Capsule (1 source) Start: 015 End: take 1 capsule by mouth once daily [...] tablet (10 sources) Nonsteroidal Anti-inflammatory Drug Start: 5 End: take 15 mg by mouth once [...] Start: 05-02-2023 take 1 tablet by ghassan th twice daily Start: 04-22-2023 End: 05-02-2023 take 1 tablet [...] mouth once daily Omeprazole (Prilosec) 40 MG Capsule. Discontinued 40 MG PO daily March 06, [...] 90 tablet 2 11/23/2014 Active Vit C/Vit E/Lutein/Min/[place]-3 (Ocuvite Softgel) 1 EACH Capsule (1 source) Start: 11-02-2014 End: 03-06-2020 Vit C/Vit E/Lutein/Min/[place]-3 (Ocuvite Softgel) 1 EACH Capsule Discontinued 1 [...] Coronary arteriosclerosis; Translations: [Atherosclerotic heart disease of [place] coronary artery without angina pectoris] Onset: 3 [...] 5 06-26-2022 Chronic Comment on above: 23mm Jay-Beauwa rds Perimount Magna valve Hyperplasia of prostate [...] injuries and conditions due to external causes (5 sources) Other specified injuries of thorax, initial [...] unspecified] 05-28-2021 Chronic Other nervous system disorders (12 sources) Chronic pain; Translations: [Other chronic pain] [...] sources) Atherosclerosis of aorta; Translations: [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 of [...] disturbance, mood disturbance, and anxiety] Onset: 3 Viral infection (3 sources) COVID-19; Translations: [Pneumonia [...] [Tinea unguium] Episodic Open wounds of extremities (1 source) Unspecified open wound, left foot, initial encounter; Translations: [Unspecified open wound, left foot, initial encounter] Onset: 06-22-2024 Episodic Other aftercare (1 source) Drug therapy finding; Translations: [group home (current) use of anticoagulants] Episodic Other circulatory [...] Onset: 07-05-2010 06-17-2014 Episodic Other gastrointestinal disorders (3 sources) Constipation, unspecified; Translations: [Constipation, unspecified] Onset: 06-19-2014 Episodic Other lower respiratory disease (2 sources) Pleurodynia; Translations: [Pleurodynia] Onset: 11-06-2022 Episodic Other lower respiratory disease (2 sources) Other forms of dyspnea; Translations: [Other forms of dyspnea] Onset: 06-14-2022 Episodic Other lower respiratory disease (3 sources) Dyspnea on exertion; Translations: [Other forms of dyspnea] Episodic Other lower respiratory disease (1 source) Wheezing; Translations: [Wheezing] Onset: 05-01-2024 Episodic Other non-traumatic joint disorders [...] respiratory failure with hypoxia] Onset: 01-03-2023 Episodic Transient cerebral ischemia (20 sources) Cerebral [...] disturbance, mood disturbance, and anxiety] Onset: 01-03-2023 Urinary tract infections (1 source) Urinary tract infection, site not specified; Translations: [Urinary tract infection, site not specified] Onset: 09-10-2024 Episodic Results Test Name Value Interpretation Reference Range Facility Absolute lymphocyte countOrd ered By: Danielle Hernandez on 11-26-2024 Lymphocytes Auto (Unsp spec) [#/Vol] 1.33 10*3/uL 0.83-4.51 [facility] [facility] Absolute neutrophil countOrd ered By: Danielle Hernandez on 11-26-2024 Neutrophils (Bld) [#/Vol] 7.8 10*3/uL High 2.0-7.7 [facility] Anion gap in Serum or Plasma Ordered By: Danielle Hernandez on 11-26-2024 Anion gap [Moles/Vol] 14 mmol/L 5-15 [facility] Automated lymphocyte count a s percentage of total leukocytesOrdered By: Danielle Hernandez on 11-26-2024 Lymphocytes/100 WBC Auto (Unsp spec) 13.1 % Low 19-41 [facility] BUN/creatinine ratioOrdered By: Danielle Hernandez on 11-26-2024 Urea nitrogen/Creatinine [Mass ratio] 32.2 mg/mg High 10-20 [facility] Basophil percentageOrdered B y: Danielle Hernandez on 11-26-2024 Basophils/100 WBC (Bld) 0.2 % 0-1 [facility] Bilirubin directOrdered By: Danielle Hernandez on 11-26-2024 Bilirubin.direct [Mass/Vol] 0.17 mg/dL 0.00-0.30 [facility] Bilirubin, totalOrdered By: Danielle Hernandez on 11-26-2024 Bilirubin [Mass/Vol] 0.40 mg/dL 0.00-1.30 [facility] Carbon dioxide, total [Moles /volume] in Central venous bloodOrdered By: Danielle Hernandez on 11-26-2024 CO2 [Moles/Vol] 20.4 mmol/L Low 21.0-32.0 [facility] Chloride assayOrdered By: Jair Hernandez on 11-26-2024 Chloride [Moles/Vol] 101 mmol/L 98-108 [facility] Eosinophil percentageOrdered By: Danielle Hernandez on 11-26-2024 Eosinophils/100 WBC (Bld) 2.2 % 0-5 [facility] Erythrocyte distribution wid th ratioOrdered By: Danielle Hernandez on 11-26-2024 Erythrocyte distribution width (RBC) [Ratio] 14.8 % High 11.6-14.6 [facility] Erythrocyte distribution wid th standard deviationOrdered By: Danielle Hernandez on 11-26-2024 Erythrocyte distribution width (RBC) [Ratio] 56.1 fl High 35.1-43.9 [facility] Glomerular filtration rate ( GFR) estimation/1.73 sq m using serum, plasma, or whole bOrdered By: Danielle Hernandez on 11-26-2024 GFR/1.73 sq M.predicted among non-blacks MDRD (S/P/Bld) [Vol rate/Area] 57 mL/min/{1.73_m2} Low >60 [facility] Comment on above: mL/min/1.73m2 CKD-EP I Creatinine Equation (2020) Hematocrit Auto (Bld) [Volum e fraction]Ordered By: Danielle Hernandez on 11-26-2024 Hematocrit (Bld) [Volume fraction] 46.1 % 40-54 [facility] Hemoglobin A1c percentageOrd ered By: Danielle Hernandez on 11-26-2024 HbA1c (Bld) [Mass fraction] 7.1 % High <5.7 [facility] Comment on above: Normal < 5.7 % Predi abetic 5.7 - 6.4 % Diabetic >or= 6.5 % Please note range changes. Hemoglobin measurementOrdere d By: Danielle Hernandez on 11-26-2024 Hemoglobin (Bld) [Mass/Vol] 15.5 g/dL 13.0-16.5 [facility] Immature granulocytes/100 WB C Auto (Bld)Ordered By: Danielle Hernandez on 11-26-2024 Immature granulocytes/100 WBC (Bld) 0.400 % 0.0-0.9 [facility] Comment on above: IG% - Immature Granu locytes (promyelocytes, myelocytes and metamyelocytes) > 1% indicates that a LEFT SHIFT is Present. Laboratory - Chemistry and C hemistry - challengeOrdered By: Danielle Hernandez on 11-26-2024 AST [Catalytic activity/Vol] 20 U/L <38 [facility] MCV (mean corpuscular volume ) determinationOrdered By: Danielle Hernandez on 11-26-2024 MCV (RBC) [Entitic vol] 102.2 fL High 80-94 [facility] Mean corpuscular hemoglobin (MCH) determinationOrdered By: Danielle Hernandez 11-26-2024 MCH (RBC) [Entitic mass] 34.4 pg High 27.0-32.0 [facility] Mean corpuscular hemoglobin concentration (MCHC) determinationOrdered By: Danielle Hernandez on 11-26-2024 MCHC (RBC) [Mass/Vol] 33.6 g/dL 32-36 [facility] Mean platelet volume determi nationOrdered By: Danielle Hernandez on 11-26-2024 Platelet mean volume (Bld) [Entitic vol] 12.3 fL High 6.2-12.0 [facility] Monocyte percentageOrdered B y: Danielle Hernandez on 11-26-2024 Monocytes/100 WBC (Bld) 7.0 % 0-10 [facility] Neutrophil percentageOrdered By: Danielle Hernandez on 11-26-2024 Neutrophils/100 WBC (Bld) 77.1 % High 47-70 [facility] Nucleated red blood cell per centageOrdered By: Danielle Hernandez on 11-26-2024 Nucleated RBC/100 WBC (Bld) [Ratio] 0 % 0-5 [facility] Platelet countOrdered By: Jair Hernandez on 11-26-2024 Platelets (Bld) [#/Vol] 107 10*3/uL Low 150-450 [facility] Potassium measurement (mass/ volume)Ordered By: Danielle Hernandez on 11-26-2024 Potassium (Unsp spec) [Mass/Vol] 4.8 mmol/L 3.3-5.1 [facility] RBC Auto (Bld) [#/Vol]Ordere d By: Danielle Hernandez on 11-26-2024 RBC (Bld) [#/Vol] 4.51 10*6/uL Low 4.6-6.2 [facility] Serum creatinine measurement (mass/volume)Ordered By: Danielle Hernandez on 11-26-2024 Creatinine [Mass/Vol] 1.25 mg/dL High 0.70-1.20 [facility] Serum globulin measurementOr dered By: Danielle Hernandez on 11-26-2024 Globulin (S) [Mass/Vol] 2.7 g/dL 2.2-4.2 [facility] Serum glucose measurement (m ass/volume)Ordered By: Danielle Hernandez on 11-26-2024 Glucose [Mass/Vol] 130 mg/dL High 70-99 [facility] Serum or plasma alanine jackson otransferase (ALT) measurementOrdered By: Danielle Hernandez on 11-26-2024 ALT [Catalytic activity/Vol] 12 U/L <47 [facility] Serum or plasma albumin cr urement (mass/volume)Ordered By: Danielle Hernandez on 11-26-2024 Albumin [Mass/Vol] 3.9 g/dL 3.4-4.8 [facility] Serum or plasma alkaline abena sphatase measurementOrdered By: Danielle Hernandez on 11-26-2024 ALP [Catalytic activity/Vol] 175 U/L High 40-129 [facility] Serum or plasma calcium cr urement (mass/volume)Ordered By: Danielle Hernandez on 11-26-2024 Calcium [Mass/Vol] 9.8 mg/dL 7.6-11.0 [facility] Serum or plasma urea nitroge n measurement (mass/volume)Ordered By: Danielle Hernandez on 11-26-2024 Urea nitrogen [Mass/Vol] 40 mg/dL High 4-19 [facility] Sodium levelOrdered By: Karen Hernandez on 11-26-2024 Sodium [Moles/Vol] 135 mmol/L 133-145 [facility] Total proteinOrdered By: Abdulaziz Hernandez on 11-26-2024 Protein [Mass/Vol] 6.6 g/dL 5.9-8.4 [facility] White blood cell (WBC) count Ordered By: Danielle Hernandez on 11-26-2024 WBC (Bld) [#/Vol] 10.2 10*3/uL 4.4-11.0 [facility] Cardiology Visit Reporton Cardiology Visit Report [facility] [address] [place] [address] OFFICE VISIT Date of Service: 11/05/24 MR#: [id number] Acct: [id number] Name: MICK COTTRELL Rep #: [id number] : 1940 Provider: AMERICA jones Age/Sex: 84/M Location[place] [facility] [place] Status: Signed HPI HPI History of Present Illness Details: This is an 84-year-old male who presents to the office today for cardiovascular follow-up visit. He has a history of paroxysmal atrial fibrillation, hypertension and aortic valve stenosis status post aortic valve replacement with a bioprosthetic valve in 2010. He does live in a long-term[facility]. He presents to the office [...] Monitor Intake Visit Reasons: 6 M FU Network Support Engineer Required: No Is patient in pain?: No [...] bisacodyl 10 mg rectal suppository 10 mg W[place] QDAY PRN 05/29/2411/05 History loperamide 2 mg capsule (Imodium 2 mg PO Q6H PRN 05/29/24 11/05/24 History A-D) magnesium hydroxide 400 mg/5 mL 5 ml PO QDAY PRN 05/29/24 11/05/24 History oral suspension (Milk of Magnesia) potassium chloride 10 mEq 20 meq PO QAM 11/05/24 11/05/24 Hi story capsule,extended release Have you fallen in the past year?: Yes PFSH Medical History MRSA (methicillin resistant staph aureus) culture positive [...] ( 09/08/10) Family History Mother Heart disease (more content not included)... Normal [facility] Calculated very low density lipoprotein (VLDL) cholesterol measurementOrdered By: Danielle Hernandez on 08-28-2024 Calculated very low density lipoprotein (VLDL) cholesterol measurement 16 mg/dL 5-40 [facility] LDL calc ser/plasOrdered By: Danielle Hernandez on 08-28-2024 Cholesterol in LDL [Mass/Vol] 48 mg/dL [facility] Comment on above: Lmtxsffncd=079-940 m g/dL & Higher Ujxf=611 mg/dL or greater Screening total cholesterol/ high density lipoprotein (HDL) cholesterol ratioOrdered By: Danielle Hernandez on 08-28-2024 Cholesterol.total/Chol esterol in HDL [Mass ratio] 3.16 {ratio} [facility] Serum or plasma cholesterol in HDL measurement (mass/volume)Ordered By: Danielle Hernandez on 08-28-2024 Cholesterol in HDL [Mass/Vol] 30 mg/dL Low >40 [facility] Comment on above: National Cholesterol Education Program (NCEP) guidelines:<40 mg/dL: Low HDL-cholesterol (major risk factor for CHD)>= 60 mg/dL: High HDL-cholesterol (negative risk factor for CHD)HDL-cholesterol is affected by a number of factors, e.g. smoking, exercise, hormones, sex and age. Serum or plasma cholesterol measurement (mass/volume)Ordered By: Danielle Hernandez on 08-28-2024 Cholesterol [Mass/Vol] 94 mg/dL <201 [facility] Comment on above: Cholesterol level, D esirable <200 mg/dLBorderline high cholesterol 200-239 mg/dLHigh cholesterol >=240 mg/dLRecommendations of the NCEP Adult Treatment Panel for the following risk-cutoff thresholds for the [place] population. Triglycerides measurementOrd ered By: Danielle Hernandez on 08-28-2024 Triglyceride [Mass/Vol] 82 mg/dL <199 [facility] Comment on above: The drugs N-Acetylcy steine and Metamizole may falsely depress this assay. Normal range: <150 mg/dLBorderline High: 150-199 mg/dLHigh: 200-499 mg/dLVery High: >500 mg/dL Bilirubin Test strip Ql (U)O rdered By: Danielle Hernandez on 08-26-2024 Bilirubin Ql (U) Negative Negative [facility] Ketones Test strip Ql (U)Ord ered By: Danielle Hernandez on 08-26-2024 Ketones Ql (U) Negative Negative [facility] Nitrite Test strip Ql (U)Ord ered By: Danielle Hernandez on 08-26-2024 Nitrite Ql (U) Negative Negative [facility] Protein Test strip Ql (U)Ord ered By: Danielle Hernandez on 08-26-2024 Protein Ql (U) 15 mg/dl High Negative [facility] Urine clarityOrdered By: Abdulaziz Hernandez on 08-26-2024 Clarity (U) Clear Clear [facility] Urine color determinationOrd ered By: Danielle Hernandez on 08-26-2024 Color (U) Yellow Yellow [facility] Urine cultureOrdered By: Abdulaziz Hernandez on 08-26-2024 Bacteria identified Cx Nom (U) Enterococcus faecalis Abnormal [facility] Urine glucose detectionOrder ed By: Danielle Hernandez on 08-26-2024 Glucose Ql (U) 1000 mg/dl High Normal [facility] Urine leukocyte esterase det ection by dipstickOrdered By: Danielle Hernandez on 08-26-2024 Leukocyte esterase Test strip Ql (U) 500 /ul High Negative [facility] Urine pHOrdered By: Anivalelba marjan Hernandez on 08-26-2024 pH (U) 6.0 [pH] 5.0 - 8.0 [facility] Urine specific gravity measu rementOrdered By: Anivalcorey Ellsworthramin on 08-26-2024 Specific gravity (U) [Rel density] 1.010 1.002-1.030 [facility] Urine urobilinogen measureme ntOrdered By: Anivalcorey Ellsworthramin on 08-26-2024 Urobilinogen Ql (U) Normal mg/dl Normal [facility] Echocardiogram study reportO rdered By: Yadira Desouza on 08-10-2024 Study report [facility] [address] [place] [address] Echo Complete W/ Contrast 08/07/24 1005 MR#: [id number] Acct: [id number] Name: MICK COTTRELL Rep #:[id number] : 1940 83 From: Yadira Desouza MD Attending Dr: Dr. Yadira Desouza MD Status: REG CLI Ordering Dr: Yadira Desouza MD Date: Location: [facility] Sex: M C Admitted: Reason [...] Dr. Danielle Hernandez MD ~ Date Dictated: 08/07/241004 Date Transcribed: 08/10/24833 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: Signed [facility] Work Phone: Echo Complete W/ Contraston 08-07-2024 Echo Complete W/ Contrast [facility] [address] [place] [address]. [place] [address] Echo Complete W/ Contrast 08/07/24 1005 MR#: [id number] Acct: [id number] Name: MICK COTTRELL Rep #: [id number] : 1940 83 From: Yadira Desouza MD Attending Dr: Dr. Yadira Desouza MD Status: REG CLI Ordering Dr: Yadira Desouza MD Date: 08/07/24 Location: [facility] Sex: M C Admitted: Reason For Study [...] Referring Physician: Danielle Hernandez Performed By: Salvador Marcano, [facility] 08/10/24833 Date Yadira Desouza MD CC: Dr. Yadira Desouza MD; Dr. Danielle Hernandez MD Date Dictated: 08/07/241004 Date Transcribed: 08/10/24833 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: Signed Normal [facility] Wound Cultureon 07-23-2024 WC RIGHT LEG ULCER No growth aerobically. Normal [facility] Comment on above: Performed By: #### M 100.2000, M100.3000 #### [facility] [address] [place], [place], [address] Gram Stainon 07-22-2024 GS RIGHT LEG ULCER Gram Stain 2+ Red Blood Cells No organisms seen Normal [facility] Comment on above: Performed By: #### M 100.2000, M100.3000 #### [facility] [address] [place], [address] Gram stainOrdered By: Ronal Quiles on 07-21-2024 Microscopic observation Gram stain Nom (Unsp spec) [facility] Absolute lymphocyte countOrd ered By: Danielle Hernandez on 06-26-2024 Lymphocytes Auto (Unsp spec) [#/Vol] 1.40 10*3/uL 0.83-4.51 [facility] Absolute neutrophil countOrd ered By: Danielle Hernandez on 06-26-2024 Neutrophils (Bld) [#/Vol] 6.3 10*3/uL 2.0-7.7 [facility] Anion gap in Serum or Plasma Ordered By: Danielle Hernandez on 06-26-2024 Anion gap [Moles/Vol] 12 mmol/L 5-15 [facility] Automated lymphocyte count a s percentage of total leukocytesOrdered By: Danielle Hernandez on 06-26-2024 Lymphocytes/100 WBC Auto (Unsp spec) 16.3 % Low 19-41 [facility] BUN/creatinine ratioOrdered By: Danielle Hernandez on 06-26-2024 Urea nitrogen/Creatinine [Mass ratio] 31.5 mg/mg High 10-20 [facility] Basophil percentageOrdered B y: Danielle Hernandez on 06-26-2024 Basophils/100 WBC (Bld) 0.4 % 0-1 [facility] Bilirubin directOrdered By: Danielle Hernandez on 06-26-2024 Bilirubin.direct [Mass/Vol] 0.16 mg/dL 0.00-0.30 [facility] Bilirubin, totalOrdered By: Danielle Hernandez on 06-26-2024 Bilirubin [Mass/Vol] 0.36 mg/dL 0.00-1.30 [facility] Carbon dioxide, total [Moles /volume] in Central venous bloodOrdered By: Danielle Hernandez on 06-26-2024 CO2 [Moles/Vol] 22.3 mmol/L 21.0-32.0 [facility] Chloride assayOrdered By: Jair Hernandez on 06-26-2024 Chloride [Moles/Vol] 101 mmol/L 98-108 [facility] Eosinophil percentageOrdered By: Danielle Hernandez on 06-26-2024 Eosinophils/100 WBC (Bld) 1.9 % 0-5 [facility] Erythrocyte distribution wid th ratioOrdered By: Danielle Hernandez on 06-26-2024 Erythrocyte distribution width (RBC) [Ratio] 15.5 % High 11.6-14.6 [facility] Erythrocyte distribution wid th standard deviationOrdered By: Danielle Hernandez on 06-26-2024 Erythrocyte distribution width (RBC) [Ratio] 58.0 fl High 35.1-43.9 [facility] Glomerular filtration rate ( GFR) estimation/1.73 sq m using serum, plasma, or whole bOrdered By: Danielle Hernandez on 06-26-2024 GFR/1.73 sq M.predicted among non-blacks MDRD (S/P/Bld) [Vol rate/Area] 59 mL/min/{1.73_m2} Low >60 [facility] Comment on above: mL/min/1.73m2 CKD-EP I Creatinine Equation (2020) Hematocrit Auto (Bld) [Volum e fraction]Ordered By: Danielle Hernandez on 06-26-2024 Hematocrit (Bld) [Volume fraction] 45.4 % 40-54 [facility] Hemoglobin A1c percentageOrd ered By: constantinpaysoncorey Hernandez on 06-26-2024 HbA1c (Bld) [Mass fraction] 6.8 % >5.7 [facility] Hemoglobin measurementOrdere d By: Danielle Hernandez on 06-26-2024 Hemoglobin (Bld) [Mass/Vol] 15.0 g/dL 13.0-16.5 [facility] Immature granulocytes/100 WB C Auto (Bld)Ordered By: Danielle Hernandez on 06-26-2024 Immature granulocytes/100 WBC (Bld) 0.600 % 0.0-0.9 [facility] Comment on above: IG% - Immature Granu locytes (promyelocytes, myelocytes and metamyelocytes) > 1% indicates that a LEFT SHIFT is Present. Laboratory - Chemistry and C hemistry - challengeOrdered By: Danielle Hernandez on 06-26-2024 AST [Catalytic activity/Vol] 21 U/L <38 [facility] MCV (mean corpuscular volume ) determinationOrdered By: Danielle Hernandez 06-26-2024 MCV (RBC) [Entitic vol] 101.6 fL High 80-94 [facility] Mean corpuscular hemoglobin (MCH) determinationOrdered By: constantinpaysoncorey Hernandez 06-26-2024 MCH (RBC) [Entitic mass] 33.6 pg High 27.0-32.0 [facility] Mean corpuscular hemoglobin concentration (MCHC) determinationOrdered By: Danielle Hernandez on 06-26-2024 MCHC (RBC) [Mass/Vol] 33.0 g/dL 32-36 [facility] Mean platelet volume determi nationOrdered By: Danielle Hernandez on 06-26-2024 Platelet mean volume (Bld) [Entitic vol] 12.2 fL High 6.2-12.0 [facility] Monocyte percentageOrdered B y: Danielle Hernandez on 06-26-2024 Monocytes/100 WBC (Bld) 7.8 % 0-10 [facility] Neutrophil percentageOrdered By: [facility] Health[facility] Hernandez on 06-26-2024 Neutrophils/100 WBC (Bld) 73.0 % High 47-70 [facility] Nucleated red blood cell per centageOrdered By: Danielle Hernandez on 06-26-2024 Nucleated RBC/100 WBC (Bld) [Ratio] 0 % 0-5 [facility] Platelet countOrdered By: Jair constantinyovany Hernandez on 06-26-2024 Platelets (Bld) [#/Vol] 108 10*3/uL Low 150-450 [facility] Potassium measurement (mass/ volume)Ordered By: Danielle Hernandez on 06-26-2024 Potassium (Unsp spec) [Mass/Vol] 4.8 mmol/L 3.3-5.1 [facility] RBC Auto (Bld) [#/Vol]Ordere d By: Danielle Hernandez on 06-26-2024 RBC (Bld) [#/Vol] 4.47 10*6/uL Low 4.6-6.2 [facility] Serum creatinine measurement (mass/volume)Ordered By: Danielle Hernandez on 06-26-2024 Creatinine [Mass/Vol] 1.21 mg/dL High 0.70-1.20 [facility] Serum globulin measurementOr dered By: Danielle Hernandez 06-26-2024 Globulin (S) [Mass/Vol] 2.6 g/dL 2.2-4.2 [facility] Serum glucose measurement (m ass/volume)Ordered By: Danielle Hernandez on 06-26-2024 Glucose [Mass/Vol] 118 mg/dL High 70-99 [facility] Serum or plasma alanine jackson otransferase (ALT) measurementOrdered By: Danielle Hernandez on 06-26-2024 ALT [Catalytic activity/Vol] 13 U/L <47 [facility] Serum or plasma albumin cr urement (mass/volume)Ordered By: Danielle Hernandez on 06-26-2024 Albumin [Mass/Vol] 3.6 g/dL 3.4-4.8 [facility] Serum or plasma alkaline abena sphatase measurementOrdered By: Danielle Hernandez on 06-26-2024 ALP [Catalytic activity/Vol] 156 U/L High 40-129 [facility] Serum or plasma calcium cr urement (mass/volume)Ordered By: Danielle Hernandez on 06-26-2024 Calcium [Mass/Vol] 9.7 mg/dL 7.6-11.0 [facility] Serum or plasma urea nitroge n measurement (mass/volume)Ordered By: Danielle Hernandez on 06-26-2024 Urea nitrogen [Mass/Vol] 38 mg/dL High 4-19 [facility] Sodium levelOrdered By: Karen willoughbyed David on 06-26-2024 Sodium [Moles/Vol] 135 mmol/L 133-145 [facility] Total proteinOrdered By: Abdulaziz Hernandez on 06-26-2024 Protein [Mass/Vol] 6.3 g/dL 5.9-8.4 [facility] White blood cell (WBC) count Ordered By: Danielle Hernandez on 06-26-2024 WBC (Bld) [#/Vol] 8.6 10*3/uL 4.4-11.0 [facility] Wound Cultureon 06-17-2024 WC Copy of report sent to Infection Control [...] S Vancomycin Islt GUIDO <=0.5 S Normal [facility] Comment on above: Performed By: #### M 100.2000, M100.3000 #### [facility] [address] [place], [address] Gram Stainon 06-16-2024 GS Gram Stain 1+ Gram positive cocci No White Blood Cells No Epithelial cells Normal [facility] Comment on above: Performed By: #### M 100.1999, M100.3000 #### [facility] [address] [place], [address] Gram stainOrdered By: Ronal Quiles on 06-15-2024 Microscopic observation Gram stain Nom (Unsp spec) [facility] Routine wound cultureOrdered By: Hyacinth Quiles on 06-15-2024 Microbial culture, routine Meth. resistant Staph. aureus Abnormal [facility] Wound Culture Meth. resistant Staph. aureus Abnormal [facility] Wound Culture Positive Abnormal [facility] Arterial study reportOrdered By: Jimy Goldstein on 06-01-2024 Noninvasive arteriosclerosis study report [facility] [address] [place] [address] Lower Ext Art Exam w/o Exercis 05/29/24 1340 MR#: [id number] Acct: [id number] Name: MICK COTTRELL Rep #:[id number] : 1940 83 From: Jimy Melvin Attending Dr: ADRIANNA Cerda Stat us: REG CLI Ordering Dr: Agueda Champagne Date: Location: [facility] Sex: M C Admitted: Reason [...] Dictated: 05/29/24 1340 Date Transcribed: 06/01/24 1552 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: Signed [facility] Work Phone: Lower Ext Art Exam w/o Exerc tariq 05-29-2024 Lower Ext Art Exam w/o Exercis [facility] [address] [place] [address] Lower Ext Art Exam w/o Exercis 05/29/24 1340 MR#: [id number] Acct: [id number] Name: MICK COTTRELL Rep #: [id number] : 1940 83 From: Jimy Goldstein MD Attending Dr: ADRIANNA Cerda Status: REG CLI Ordering Dr: Agueda Champagne Date: 05/29/24 Location: [facility] Sex: M C Admitted: Reason For Study [...] Dictated: 05/29/24 1340 Date Transcribed: 06/01/24 1552 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: Signed [facility] MR/BMS.BVSon 05-29-2024 MR/BMS.BVS [facility] [address] [place] [address] OFFICE VISIT Date of Service: 05/29/24 MR#: [id number] Acct: [id number] Name: MICK COTTRELL Rep #: [id number] : 1940 Provider: ADRIANNA Cerda Age/Sex: 83/M Location: [facility] Status: Signed Intake Vital Signs 05/07/24 [...] 1,000 mg tablet 1,000 mg PO DAILY 04/24/23/09/23 5 History metoprolol tartrate 25 mg tablet [...] bisacodyl 10 mg rectal suppository 10 mg W[place] QDAY PRN 05/29/2405/29 History loperamide 2 mg [...] accompanied to his appointment today by a psych arnp who helps to supplement his recent history. This wound has been present since late November 2023. No recent infections. No new LLE pain/claudication, swelling. (more content not included)... Normal [facility] Blood urea nitrogen (BUN)/cr eatinine ratioOrdered By: Danielle Hernandez on 05-14-2024 Urea nitrogen/Creatinine [Mass ratio] 29.9 mg/mg High 10-20 [facility] Carbon dioxide measurementOr dered By: Danielle Hernandez on 05-14-2024 CO2 [Moles/Vol] 23.0 mmol/L 21.0-32.0 [facility] Chloride measurementOrdered By: Danielle Hernandez on 05-14-2024 Chloride [Moles/Vol] 102 mmol/L 98-107 [facility] Estimated glomerular filtrat ion rate (GFR) AmericanOrdered By: Danielle Hernandez on 05-14-2024 Estimated GFR (MDRD) Amer 70 mL/min >60 [facility] Comment on above: GFR Calc Glomerular filtration rate ( GFR) estimationOrdered By: Danielle Hernandez on 05-14-2024 Estimated GFR (MDRD) Non-Af Amer 58 mL/min Low >60 [facility] Comment on above: Non- GFR Calc GFR/1.73 sq M.predicted among non-blacks MDRD (S/P/Bld) [Vol rate/Area] 58 mL/min/{1.73_m2} Low >60 [facility] Comment on above: Non- GFR Calc Glucose measurementOrdered B y: Danielle Hernandez on 05-14-2024 Glucose [Mass/Vol] 111 mg/dL High 74-106 [facility] Comment on above: Fasting Glucose resu lt from 100 to 125 mg/dL suggests IMPAIRED HOMEOSTASIS per A.D.A. criteria. Potassium measurementOrdered By: Danielle Hernandez on 05-14-2024 Potassium [Moles/Vol] 4.7 mmol/L 3.5-5.1 [facility] Serum anion gap measurementO rdered By: Danielle Hernanedz on 05-14-2024 Anion gap [Moles/Vol] 10 mmol/L 5-15 [facility] Serum or plasma calcium cr urement (mass/volume)Ordered By: Danielle Hernandez on 05-14-2024 Calcium [Mass/Vol] 9.4 mg/dL 8.5-10.1 [facility] Serum or plasma creatinine m easurement (mass/volume)Ordered By: Danielle Hernandez on 05-14-2024 Creatinine [Mass/Vol] 1.27 mg/dL 0.70-1.30 [facility] Comment on above: The validity of the calculated GFR & GFRAA in patients over 70 years has not been determined. Clinical correlation is essential. Serum or plasma urea nitroge n measurement (mass/volume)Ordered By: Danielle Hernandez on 05-14-2024 Urea nitrogen [Mass/Vol] 38 mg/dL High 7-18 [facility] Sodium levelOrdered By: Karen willoughbynalinimarjan Hernandez on 05-14-2024 Sodium [Moles/Vol] 135 mmol/L Low 136-145 [facility] L. pneumophila Ag Ql (U)Orde red By: Danielle Hernandez on 05-10-[address] [facility] Urine Legionella pneumophila antigen detectionOrdered By: Danielle Hernandez on 05-10-2024 L. pneumophila Ag Ql (U) [facility] Cardiology Visit Reporton Cardiology Visit Report [facility] [address] [place], [place] [address] OFFICE VISIT Date of Service: 05/07/24 MR#: [id number] Acct: [id number] Name: MICK COTTRELL Rep #: [id number] : 1940 Provider: Dr. Yadira Desouza MD Age/Sex: 83/M Location: [facility] Status: Signed HPI HPI History of [...] NIBP Intake Visit Reasons: 1 Y FU Network Support Engineer Required: No Accompanied by: transport Is patient [...] near synco (more content not included)... Normal [facility] Absolute lymphocyte countOrd ered By: Danielle Hernandez on 05-01-2024 Lymphocytes Auto (Unsp spec) [#/Vol] 1.47 10*3/uL 0.83-4.51 [facility] Absolute neutrophil countOrd ered By: Danielle Hernandez on 05-01-2024 Neutrophils (Bld) [#/Vol] 5.3 10*3/uL 2.0-7.7 [facility] Automated lymphocyte count a s percentage of total leukocytesOrdered By: Danielel Hernandez on 05-01-2024 Lymphocytes/100 WBC Auto (Unsp spec) 19.3 % 19-41 [facility] Basophil percentageOrdered B y: Danielle Hernandez on 05-01-2024 Basophils/100 WBC (Bld) 0.1 % 0-1 [facility] Blood urea nitrogen (BUN)/cr eatinine ratioOrdered By: Danielle Hernandez on 05-01-2024 Urea nitrogen/Creatinine [Mass ratio] 33.9 mg/mg High 10-20 [facility] Carbon dioxide measurementOr dered By: Danielle Hernandez on 05-01-2024 CO2 [Moles/Vol] 25.0 mmol/L 21.0-32.0 [facility] Chloride measurementOrdered By: constantinpaysoncorey Hernandez on 05-01-2024 Chloride [Moles/Vol] 102 mmol/L 98-107 [facility] Eosinophil percentageOrdered By: Danielle Hernandez on 05-01-2024 Eosinophils/100 WBC (Bld) 2.8 % 0-5 [facility] Erythrocyte distribution wid th ratioOrdered By: Danielle Hernandez on 05-01-2024 Erythrocyte distribution width (RBC) [Ratio] 14.7 % High 11.6-14.6 [facility] Erythrocyte distribution wid th standard deviationOrdered By: Danielle Hernandez on 05-01-2024 Erythrocyte distribution width (RBC) [Entitic vol] 55.9 fL High 35.1-43.9 [facility] Erythrocyte distribution width (RBC) [Ratio] 55.9 fl High 35.1-43.9 [facility] Estimated glomerular filtrat ion rate (GFR) AmericanOrdered By: Danielle Hernandez on 05-01-2024 Estimated GFR (MDRD) Amer 78 mL/min >60 [facility] Comment on above: GFR Calc Glomerular filtration rate ( GFR) estimationOrdered By: Danielle Hernandez on 05-01-2024 Estimated GFR (MDRD) Non-Af Amer 65 mL/min >60 [facility] Comment on above: Non- GFR Calc GFR/1.73 sq M.predicted among non-blacks MDRD (S/P/Bld) [Vol rate/Area] 65 mL/min/{1.73_m2} >60 [facility] Comment on above: Non- GFR Calc Glucose measurementOrdered B y: Danielle Hernandez on 05-01-2024 Glucose [Mass/Vol] 110 mg/dL High 74-106 [facility] Comment on above: Fasting Glucose resu lt from 100 to 125 mg/dL suggests IMPAIRED HOMEOSTASIS per A.D.A. criteria. Hematocrit Auto (Bld) [Volum e fraction]Ordered By: Danielle Hernandez on 05-01-2024 Hematocrit (Bld) [Volume fraction] 44.4 % 40-54 [facility] Hemoglobin measurementOrdere d By: Danielle Hernandez on 05-01-2024 Hemoglobin (Bld) [Mass/Vol] 14.6 g/dL 13.0-16.5 [facility] Immature granulocytes/100 WB C Auto (Bld)Ordered By: Danielle Hernandez on 05-01-2024 Immature granulocytes/100 WBC (Bld) 0.300 % 0.0-0.9 [facility] Comment on above: IG% - Immature Granu locytes (promyelocytes, myelocytes and metamyelocytes) > 1% indicates that a LEFT SHIFT is Present. Lymphocytes Auto (Unsp spec) [#/Vol]Ordered By: Danielle Hernandez on 05-01-2024 Lymphocytes (Bld) [#/Vol] 1.47 10*3/uL 0.83-4.51 [facility] Lymphocytes/100 WBC Auto (Un sp spec)Ordered By: Danielle Hernandez on 05-01-2024 Lymphocytes/100 WBC (Bld) 19.3 % 19-41 [facility] MCV (mean corpuscular volume ) determinationOrdered By: Danielle Hernandez on 05-01-2024 MCV (RBC) [Entitic vol] 100.9 fL High 80-94 [facility] Mean corpuscular hemoglobin (MCH) determinationOrdered By: Danielle Hernandez on 05-01-2024 MCH (RBC) [Entitic mass] 33.2 pg High 27.0-32.0 [facility] Mean corpuscular hemoglobin concentration (MCHC) determinationOrdered By: Danielle Hernandez on 05-01-2024 MCHC (RBC) [Mass/Vol] 32.9 g/dL 32-36 [facility] Mean platelet volume determi nationOrdered By: Danielle Hernandez on 05-01-2024 Platelet mean volume (Bld) [Entitic vol] 12.1 fL High 6.2-12.0 [facility] Monocyte percentageOrdered B y: Danielle Hernandez on 05-01-2024 Monocytes/100 WBC (Bld) 7.6 % 0-10 [facility] Neutrophil percentageOrdered By: Danielle Hernandez on 05-01-2024 Neutrophils/100 WBC (Bld) 69.9 % 47-70 [facility] Nucleated red blood cell per centageOrdered By: Danielle Hernandez on 05-01-2024 Nucleated RBC/100 WBC (Bld) [Ratio] 0 % 0-5 [facility] Platelet countOrdered By: Jair Hernandez on 05-01-2024 Platelets (Bld) [#/Vol] 105 10*3/uL Low 150-450 [facility] Potassium measurementOrdered By: Danielle Hernandze on 05-01-2024 Potassium [Moles/Vol] 4.6 mmol/L 3.5-5.1 [facility] RBC Auto (Bld) [#/Vol]Ordere d By: Danielle Hernandez on 05-01-2024 RBC (Bld) [#/Vol] 4.40 10*6/uL Low 4.6-6.2 [facility] Serum anion gap measurementO rdered By: Danielle Hernandez on 05-01-2024 Anion gap [Moles/Vol] 7 mmol/L 5-15 [facility] Serum or plasma calcium cr urement (mass/volume)Ordered By: Danielle Hernandez on 05-01-2024 Calcium [Mass/Vol] 9.4 mg/dL 8.5-10.1 [facility] Serum or plasma creatinine m easurement (mass/volume)Ordered By: Danielle Hernandez on 05-01-2024 Creatinine [Mass/Vol] 1.15 mg/dL 0.70-1.30 [facility] Comment on above: The validity of the calculated GFR & GFRAA in patients over 70 years has not been determined. Clinical correlation is essential. Serum or plasma urea nitroge n measurement (mass/volume)Ordered By: Danielle Hernandez on 05-01-2024 Urea nitrogen [Mass/Vol] 39 mg/dL High 7-18 [facility] Sodium levelOrdered By: Karen Hernandez on 05-01-2024 Sodium [Moles/Vol] 133 mmol/L Low 136-145 [facility] White blood cell (WBC) count Ordered By: Danielle Hernandez on 05-01-2024 WBC (Bld) [#/Vol] 7.6 10*3/uL 4.4-11.0 [facility] Bilirubin directOrdered By: Danielle Hernandez on 03-31-2024 Bilirubin.direct [Mass/Vol] 0.12 mg/dL 0.00-0.30 [facility] Bilirubin, totalOrdered By: Danielle Hernandez on 03-31-2024 Bilirubin [Mass/Vol] 0.50 mg/dL 0.20-1.00 [facility] Comment on above: For patients on eltr ombopag therapy, use of Dimension [place] TBIL is not recommended. Blood urea nitrogen (BUN)/cr eatinine ratioOrdered By: Danielle Hernandez on 03-31-2024 Urea nitrogen/Creatinine [Mass ratio] 34.5 mg/mg High 10-20 [facility] Carbon dioxide measurementOr dered By: Danielle Hernandez on 03-31-2024 CO2 [Moles/Vol] 24.0 mmol/L 21.0-32.0 [facility] Chloride measurementOrdered By: Danielle Hernandez on 03-31-2024 Chloride [Moles/Vol] 104 mmol/L 98-107 [facility] Estimated glomerular filtrat ion rate (GFR) AmericanOrdered By: Danielle Hernandez on 03-31-2024 Estimated GFR (MDRD) Amer 82 mL/min >60 [facility] Comment on above: GFR Calc Glomerular filtration rate ( GFR) estimationOrdered By: Danielle Hernandez on 03-31-2024 Estimated GFR (MDRD) Non-Af Amer 68 mL/min >60 [facility] Comment on above: Non- GFR Calc GFR/1.73 sq M.predicted among non-blacks MDRD (S/P/Bld) [Vol rate/Area] 68 mL/min/{1.73_m2} >60 [facility] Comment on above: Non- GFR Calc Glucose measurementOrdered B y: Danielle Hernandez on 03-31-2024 Glucose [Mass/Vol] 109 mg/dL High 74-106 [facility] Comment on above: Fasting Glucose resu lt from 100 to 125 mg/dL suggests IMPAIRED HOMEOSTASIS per A.D.A. criteria. Laboratory - Chemistry and C hemistry - challengeOrdered By: Danielle Hernandez on 03-31-2024 AST [Catalytic activity/Vol] 13 U/L Low 15-37 [facility] Potassium measurementOrdered By: Danielle Hernandez on 03-31-2024 Potassium [Moles/Vol] 4.7 mmol/L 3.5-5.1 [facility] Serum anion gap measurementO rdered By: Danielle Hernandez on 03-31-2024 Anion gap [Moles/Vol] 7 mmol/L 5-15 [facility] Serum globulin measurementOr dered By: Danielle Hernandez on 03-31-2024 Globulin (S) [Mass/Vol] 3.2 g/dL 2.2-4.2 [facility] Serum or plasma alanine jackson otransferase (ALT) measurementOrdered By: Danielle Hernandez on 03-31-2024 ALT [Catalytic activity/Vol] 18 U/L 16-61 [facility] Serum or plasma albumin cr urement (mass/volume)Ordered By: Danielle Hernandez on 03-31-2024 Albumin [Mass/Vol] 3.1 g/dL Low 3.2-5.0 [facility] Serum or plasma alkaline abena sphatase measurementOrdered By: Danielle Hernandez on 03-31-2024 ALP [Catalytic activity/Vol] 166 U/L High 45-117 [facility] Serum or plasma calcium cr urement (mass/volume)Ordered By: Danielle Hernandez on 03-31-2024 Calcium [Mass/Vol] 9.1 mg/dL 8.5-10.1 [facility] Serum or plasma creatinine m easurement (mass/volume)Ordered By: Danielle Sengramin on 03-31-2024 Creatinine [Mass/Vol] 1.10 mg/dL 0.70-1.30 [facility] Comment on above: The validity of the calculated GFR & GFRAA in patients over 70 years has not been determined. Clinical correlation is essential. Serum or plasma urea nitroge n measurement (mass/volume)Ordered By: Danielle Sengramin on 03-31-2024 Urea nitrogen [Mass/Vol] 38 mg/dL High 7-18 [facility] Sodium levelOrdered By: Karen pedroza Sengramin on 03-31-2024 Sodium [Moles/Vol] 135 mmol/L Low 136-145 [facility] Total proteinOrdered By: Abdulaziz Hernandez on 03-31-2024 Protein [Mass/Vol] 6.3 g/dL Low 6.4-8.2 [facility] Absolute neutrophil countOrd ered By: Danielle Sengramin on 03-30-2024 Neutrophils (Bld) [#/Vol] 7.1 10*3/uL 2.0-7.7 [facility] Basophil percentageOrdered B y: Danielle Sengandresmarjan on 03-30-2024 Basophils/100 WBC (Bld) 0.3 % 0-1 [facility] Eosinophil percentageOrdered By: [facility] Sengramin on 03-30-2024 Eosinophils/100 WBC (Bld) 3.5 % 0-5 [facility] Erythrocyte distribution wid th ratioOrdered By: Danielle Sengandresmarjan on 03-30-2024 Erythrocyte distribution width (RBC) [Ratio] 15.1 % High 11.6-14.6 [facility] Erythrocyte distribution wid th standard deviationOrdered By: Danielle Hernandez on 03-30-2024 Erythrocyte distribution width (RBC) [Entitic vol] 57.1 fL High 35.1-43.9 [facility] Hematocrit Auto (Bld) [Volum e fraction]Ordered By: Danielle Hernandez on 03-30-2024 Hematocrit (Bld) [Volume fraction] 46.2 % 40-54 [facility] Hemoglobin A1c percentageOrd ered By: constantinpaysoncorey Hernandez on 03-30-2024 HbA1c (Bld) [Mass fraction] 6.4 % High 3.8-5.6 [facility] Comment on above: Normal < 5.7 % Predi abetic 5.7 - 6.4 % Diabetic >or= 6.5 % Please note range changes. Hemoglobin measurementOrdere d By: Danielle Hernandez on 03-30-2024 Hemoglobin (Bld) [Mass/Vol] 15.3 g/dL 13.0-16.5 [facility] Immature granulocytes/100 WB C Auto (Bld)Ordered By: constantinpaysoncorey Hernandez on 03-30-2024 Immature granulocytes/100 WBC (Bld) 0.400 % 0.0-0.9 [facility] Comment on above: IG% - Immature Granu locytes (promyelocytes, myelocytes and metamyelocytes) > 1% indicates that a LEFT SHIFT is Present. Lymphocytes Auto (Unsp spec) [#/Vol]Ordered By: Danielle Hernandez on 03-30-2024 Lymphocytes (Bld) [#/Vol] 1.13 10*3/uL 0.83-4.51 [facility] Lymphocytes/100 WBC Auto (Un sp spec)Ordered By: constantinpaysoncorey Hernandez on 03-30-2024 Lymphocytes/100 WBC (Bld) 12.3 % Low 19-41 [facility] MCV (mean corpuscular volume ) determinationOrdered By: Danielle Hernandez on 03-30-2024 MCV (RBC) [Entitic vol] 102.2 fL High 80-94 [facility] Mean corpuscular hemoglobin (MCH) determinationOrdered By: blanca Hernandez on 03-30-2024 MCH (RBC) [Entitic mass] 33.8 pg High 27.0-32.0 [facility] Mean corpuscular hemoglobin concentration (MCHC) determinationOrdered By: Danielle Hernandez on 03-30-2024 MCHC (RBC) [Mass/Vol] 33.1 g/dL 32-36 [facility] Mean platelet volume determi nationOrdered By: Danielle Hernandez on 03-30-2024 Platelet mean volume (Bld) [Entitic vol] 12.7 fL High 6.2-12.0 [facility] Monocyte percentageOrdered B y: Danielle Hernandez on 03-30-2024 Monocytes/100 WBC (Bld) 6.7 % 0-10 [facility] Neutrophil percentageOrdered By: Danielle Hernandez on 03-30-2024 Neutrophils/100 WBC (Bld) 76.8 % High 47-70 [facility] Nucleated red blood cell per centageOrdered By: Danielle Hernandez on 03-30-2024 Nucleated RBC/100 WBC (Bld) [Ratio] 0 % 0-5 [facility] Platelet countOrdered By: Jair Hernandez on 03-30-[address] Report[address] [facility] Platelets LM Ql (Bld)Ordered By: Danielle Hernandez on 03-30-2024 Platelet Estimate MOD DEC ADEQ [facility] Polychromasia LM Ql (Bld)Ord ered By: Danielle Hernandez on 03-30-2024 Polychromasia 1+ [facility] RBC Auto (Bld) [#/Vol]Ordere d By: Danielle Hernandez on 03-30-2024 RBC (Bld) [#/Vol] 4.52 10*6/uL Low 4.6-6.2 [facility] White blood cell (WBC) count Ordered By: Danielle Hernandez on 03-30-2024 WBC (Bld) [#/Vol] 9.2 10*3/uL 4.4-11.0 [facility] MR/BMS.Pavithra 03-06-2024 MR/BMS.BVS [facility] [address] [place] [address] OFFICE VISIT Date of Service: 03/06/24 MR#: [id number] Acct: [id number] Name: MICK COTTRELL Rep #: [id number] : 1940 Provider: ADRIANNA Cerda Age/Sex: 83/M Location: [facility] Status: Signed Intake Vital Signs 03/04/24 13:09 [...] PO DAILY PRN 02/05/24 03/06/24 History (Boby Hives) spironolactone 25 mg tablet 25 mg PO QDAY 02/05/24 03/06/24 History Have you fallen in the past year?: [facility] Neuropathy Osteoarthritis GERD (gastroesophageal reflux [...] emphysema and (more content not included)... Normal [facility] Absolute neutrophil countOrd ered By: Danielle Hernandez on 02-28-2024 Neutrophils (Bld) [#/Vol] 6.7 10*3/uL 2.0-7.7 [facility] Basophil percentageOrdered B y: Danielle Hernandez on 02-28-2024 Basophils/100 WBC (Bld) 0.4 % 0-1 [facility] Blood urea nitrogen (BUN)/cr eatinine ratioOrdered By: Danielle Hernandez on 02-28-2024 Urea nitrogen/Creatinine [Mass ratio] 34.5 mg/mg High 10-20 [facility] Carbon dioxide measurementOr dered By: Danielle Hernandez on 02-28-2024 CO2 [Moles/Vol] 21.0 mmol/L 21.0-32.0 [facility] Chloride measurementOrdered By: Danielle Hernandez on 02-28-2024 Chloride [Moles/Vol] 105 mmol/L 98-107 [facility] Eosinophil percentageOrdered By: Danielle Hernandez on 02-28-2024 Eosinophils/100 WBC (Bld) 2.7 % 0-5 [facility] Erythrocyte distribution wid th ratioOrdered By: Danielle Hernandez on 02-28-2024 Erythrocyte distribution width (RBC) [Ratio] 15.1 % High 11.6-14.6 [facility] Erythrocyte distribution wid th standard deviationOrdered By: Danielle Hernandez on 02-28-2024 Erythrocyte distribution width (RBC) [Entitic vol] 56.3 fL High 35.1-43.9 [facility] Estimated glomerular filtrat ion rate (GFR) AmericanOrdered By: Danielle Hernandez on 02-28-2024 Estimated GFR (MDRD) Amer 80 mL/min >60 [facility] Comment on above: GFR Calc Glomerular filtration rate ( GFR) estimationOrdered By: Danielle Hernandez on 02-28-2024 Estimated GFR (MDRD) Non-Af Amer 66 mL/min >60 [facility] Comment on above: Non- GFR Calc Glucose measurementOrdered B y: Danielle Hernandez on 02-28-2024 Glucose [Mass/Vol] 108 mg/dL High 74-106 [facility] Comment on above: Fasting Glucose resu lt from 100 to 125 mg/dL suggests IMPAIRED HOMEOSTASIS per A.D.A. criteria. Hematocrit Auto (Bld) [Volum e fraction]Ordered By: Danielle Hernandez on 02-28-2024 Hematocrit (Bld) [Volume fraction] 47.7 % 40-54 [facility] Hemoglobin measurementOrdere d By: Danielle Hernandez on 02-28-2024 Hemoglobin (Bld) [Mass/Vol] 15.9 g/dL 13.0-16.5 [facility] High density lipoprotein (HD L) measurementOrdered By: Danielle Hernandez on 02-28-2024 Cholesterol in HDL [Mass/Vol] 29 mg/dL Low >40 [facility] Comment on above: The drugs N-Acetylcy steine and Metamizole may falsely depress this assay. Reference Range HDL <40 mg/dL Low HDL Cholesterol HDL >or= 60 mg/dL High HDL Cholesterol Immature granulocytes/100 WB C Auto (Bld)Ordered By: Danielle Hernandez on 02-28-2024 Immature granulocytes/100 WBC (Bld) 0.600 % 0.0-0.9 [facility] Comment on above: IG% - Immature Granu locytes (promyelocytes, myelocytes and metamyelocytes) > 1% indicates that a LEFT SHIFT is Present. Low density lipoprotein (LDL ) cholesterol measurementOrdered By: Danielle Hernandez on 02-28-2024 Cholesterol in LDL [Mass/Vol] 44 mg/dL 0-130 [facility] Lymphocytes Auto (Unsp spec) [#/Vol]Ordered By: Danielle Hernandez on 02-28-2024 Lymphocytes (Bld) [#/Vol] 1.34 10*3/uL 0.83-4.51 [facility] Lymphocytes/100 WBC Auto (Un sp spec)Ordered By: Danielle Hernandez on 02-28-2024 Lymphocytes/100 WBC (Bld) 14.8 % Low 19-41 [facility] MCV (mean corpuscular volume ) determinationOrdered By: Danielle Hernandez on 02-28-2024 MCV (RBC) [Entitic vol] 100.8 fL High 80-94 [facility] Mean corpuscular hemoglobin (MCH) determinationOrdered By: Danielle Hernandez on 02-28-2024 MCH (RBC) [Entitic mass] 33.6 pg High 27.0-32.0 [facility] Mean corpuscular hemoglobin concentration (MCHC) determinationOrdered By: Danielle Hernandez on 02-28-2024 MCHC (RBC) [Mass/Vol] 33.3 g/dL 32-36 [facility] Mean platelet volume determi nationOrdered By: Danielle Hernandez on 02-28-2024 Platelet mean volume (Bld) [Entitic vol] 11.8 fL 6.2-12.0 [facility] Monocyte percentageOrdered B y: Danielle Hernandez on 02-28-2024 Monocytes/100 WBC (Bld) 7.6 % 0-10 [facility] Neutrophil percentageOrdered By: Danielle Hernandez on 02-28-2024 Neutrophils/100 WBC (Bld) 73.9 % High 47-70 [facility] Nucleated red blood cell per centageOrdered By: Danielle Hernandez on 02-28-2024 Nucleated RBC/100 WBC (Bld) [Ratio] 0 % 0-5 [facility] Platelet countOrdered By: Jair Hernandez on 02-28-2024 Platelets (Bld) [#/Vol] 107 10*3/uL Low 150-450 [facility] Potassium measurementOrdered By: Danielle Hernandez on 02-28-2024 Potassium [Moles/Vol] 5.0 mmol/L 3.5-5.1 [facility] RBC Auto (Bld) [#/Vol]Ordere d By: Danielle Hernandez on 02-28-2024 RBC (Bld) [#/Vol] 4.73 10*6/uL 4.6-6.2 [facility] Serum anion gap measurementO rdered By: Danielle Hernandez on 02-28-2024 Anion gap [Moles/Vol] 9 mmol/L 5-15 [facility] Serum or plasma calcium cr urement (mass/volume)Ordered By: Danielle Hernandez on 02-28-2024 Calcium [Mass/Vol] 9.1 mg/dL 8.5-10.1 [facility] Serum or plasma cholesterol measurement (mass/volume)Ordered By: Danielle Hernandez on 02-28-2024 Cholesterol [Mass/Vol] 97 mg/dL <200 [facility] Comment on above: <200 mg/dL Desirable 200-240 mg/dL Borderline >240 mg/dL High Risk Serum or plasma creatinine m easurement (mass/volume)Ordered By: Danielle Hernandez on 02-28-2024 Creatinine [Mass/Vol] 1.13 mg/dL 0.70-1.30 [facility] Comment on above: The validity of the calculated GFR & GFRAA in patients over 70 years has not been determined. Clinical correlation is essential. Serum or plasma urea nitroge n measurement (mass/volume)Ordered By: Danielle Hernandez on 02-28-2024 Urea nitrogen [Mass/Vol] 39 mg/dL High 7-18 [facility] Sodium levelOrdered By: Karen Hernandez on 02-28-2024 Sodium [Moles/Vol] 135 mmol/L Low 136-145 [facility] Triglycerides measurementOrd ered By: Danielle Hernandez on 02-28-2024 Triglyceride [Mass/Vol] 119 mg/dL <199 [facility] Comment on above: The drugs N-Acetylcy steine and Metamizole may falsely depress this assay.Serum Triglycerides Reference Interval Normal <150 mg/dL Borderline high 150 - 199 mg/dL High 200 - 499 mg/dL Very High > or = 500 mg/dL Very low density lipoprotein (VLDL) cholesterol measurementOrdered By: Danielle Hernandez on 02-28-2024 VLDL Cholesterol 24 mg/dL 5-40 [facility] White blood cell (WBC) count Ordered By: Jairblanca Sengramin on 02-28-2024 WBC (Bld) [#/Vol] 9.1 10*3/uL 4.4-11.0 [facility] MR/BMS.BVSon 02-05-2024 MR/BMS.BVS [facility] Vascular Surgery [address] [place] [address] OFFICE VISIT Date of Service: 02/05/24 MR#: [id number] Acct: [id number] Name: MICK COTTRELL Rep #: [id number] : 1940 Provider: ADRIANNA Cerda Age/Sex: 83/M Location: [facility] Status: Signed Intake Vital Signs 10/01/23 13:08 [...] PO DAILY PRN 02/05/24 02/05/24 History (Boby Hivaleisha) spironolactone 25 mg tablet 25 mg PO [...] the setting of PAD as referred from SNF. He is accompanied to his appointment today by his son who helps with his care. Notes from SNF available for review. He has a wound [...] study completed at [facility] which reports the following: "DIMITRIS right 0.6, moderate claudication range; DIMITRIS left not detectable with no systolic pressure detected at the ankle; waveforms on the right multiphasic through the right PT but absen (more content not included)... Normal [facility] Basophil percentageOrdered B y: Diandra Abdi on 07-01-2023 Potassium [Moles/Vol] 3.1 mmol/L 3.5-5.1 [facility] Absolute lymphocyte countOrd ered By: Danielle Hernandez on 06-28-2023 Lymphocytes Auto (Unsp spec) [#/Vol] 0.95 10*3/uL 0.83-4.51 [facility] Automated lymphocyte count a s percentage of total leukocytesOrdered By: Danielle Hernandez on 06-28-2023 Lymphocytes/100 WBC Auto (Unsp spec) 12.1 % 19-41 [facility] Basophil percentageOrdered B y: Danielle Hernandez on 06-28-2023 Basophils/100 WBC (Bld) 0.4 % 0-1 [facility] Chloride [Moles/Vol] 102 mmol/L 98-107 [facility] Eosinophils/100 WBC (Bld) 2.5 % 0-5 [facility] Glucose [Mass/Vol] 128 mg/dL 74-106 [facility] Comment on above: Fasting Glucose resu lt greater than or equal to 126 mg/dL suggests DIABETES MELLITUS per A.D.A. criteria. Hemoglobin (Bld) [Mass/Vol] 13.7 g/dL 13.0-16.5 [facility] Monocytes/100 WBC (Bld) 7.3 % 0-10 [facility] Neutrophils (Bld) [#/Vol] 6.1 10*3/uL 2.0-7.7 [facility] Neutrophils/100 WBC (Bld) 77.3 % 47-70 [facility] Potassium [Moles/Vol] 3.1 mmol/L 3.5-5.1 [facility] Sodium [Moles/Vol] 140 mmol/L 136-145 [facility] WBC (Bld) [#/Vol] 7.9 10*3/uL 4.4-11.0 [facility] Determination of erythrocyte mean corpuscular volume (MCV)Ordered By: Danielle Hernandez on 06-28-2023 MCV (RBC) [Entitic vol] 96.7 fL 80-94 [facility] Erythrocyte distribution wid th ratioOrdered By: [facility] Hernandez on 06-28-2023 Erythrocyte distribution width (RBC) [Ratio] 15.7 % 11.6-14.6 [facility] Erythrocyte distribution wid th standard deviationOrdered By: [facility] Ellsworthmarjan on 06-28-2023 Erythrocyte distribution width (RBC) [Entitic vol] 55.1 fL 35.1-43.9 [facility] Hematocrit Auto (Bld) [Volum e fraction]Ordered By: Danielle Hernandez on 06-28-2023 Hematocrit (Bld) [Volume fraction] 41.3 % 40-54 [facility] Immature granulocytes/100 WB C Auto (Bld)Ordered By: Danielle Hernandez on 06-28-2023 Immature granulocytes/100 WBC (Bld) 0.400 % 0.0-0.9 [facility] Comment on above: IG% - Immature Granu locytes (promyelocytes, myelocytes and metamyelocytes) > 1% indicates that a LEFT SHIFT is Present. Laboratory - Chemistry and C hemistry - challengeOrdered By: Danielle Hernandez on 06-28-2023 CO2 [Moles/Vol] 32.0 mmol/L 21.0-32.0 [facility] Urea nitrogen/Creatinine [Mass ratio] 12.0 mg/mg 10-20 [facility] Laboratory - Hematology and Cell countsOrdered By: Danielle Hernandez on 06-28-2023 MCH (RBC) [Entitic mass] 32.1 pg 27.0-32.0 [facility] MCHC (RBC) [Mass/Vol] 33.2 g/dL 32-36 [facility] Nucleated RBC/100 WBC (Bld) [Ratio] 0 % 0-5 [facility] Platelet mean volume (Bld) [Entitic vol] 11.5 fL 6.2-12.0 [facility] Platelets (Bld) [#/Vol] 122 10*3/uL 150-450 [facility] No Panel InformationOrdered By: Danielle Hernandez on 06-28-2023 Estimated GFR (MDRD) Amer 84 mL/min >60 [facility] Comment on above: GFR Calc Estimated GFR (MDRD) Non-Af Amer 69 mL/min >60 [facility] Comment on above: Non- GFR Calc RBC Auto (Bld) [#/Vol]Ordere d By: Danielle Hernandez on 06-28-2023 RBC (Bld) [#/Vol] 4.27 10*6/uL 4.6-6.2 [facility] Serum or plasma calcium cr urement (mass/volume)Ordered By: Danielle Hernandez on 06-28-2023 Calcium [Mass/Vol] 8.9 mg/dL 8.5-10.1 [facility] Serum or plasma creatinine m easurement (mass/volume)Ordered By: Danielle Hernandez on 06-28-2023 Creatinine [Mass/Vol] 1.08 mg/dL 0.70-1.30 [facility] Comment on above: The validity of the calculated GFR & GFRAA in patients over 70 years has not been determined. Clinical correlation is essential. Serum or plasma urea nitroge n measurement (mass/volume)Ordered By: Danielle Hernandez on 06-28-2023 Urea nitrogen [Mass/Vol] 13 mg/dL 7-18 [facility] Thin prep Papanicolaou smear with manual screeningOrdered By: Danielle Hernandez on 06-28-2023 Thin prep Papanicolaou smear with manual screening 6 5-15 [facility] Basophil percentageOrdered B y: Karentanocorey Hernandez on 06-26-2023 Potassium [Moles/Vol] 2.8 mmol/L 3.5-5.1 [facility] Absolute lymphocyte countOrd ered By: Danielle Hernandez on 05-24-2023 Lymphocytes Auto (Unsp spec) [#/Vol] 0.91 10*3/uL 0.83-4.51 [facility] Automated lymphocyte count a s percentage of total leukocytesOrdered By: Danielle Hernandez on 05-24-2023 Lymphocytes/100 WBC Auto (Unsp spec) 9.5 % 19-41 [facility] Basophil percentageOrdered B y: Karentanocorey Hernandez on 05-24-2023 Basophils/100 WBC (Bld) 0.3 % 0-1 [facility] Chloride [Moles/Vol] 99 mmol/L 98-107 [facility] Eosinophils/100 WBC (Bld) 1.2 % 0-5 [facility] Glucose [Mass/Vol] 145 mg/dL 74-106 [facility] Comment on above: Fasting Glucose resu lt greater than or equal to 126 mg/dL suggests DIABETES MELLITUS per A.D.A. criteria. Hemoglobin (Bld) [Mass/Vol] 14.4 g/dL 13.0-16.5 [facility] Monocytes/100 WBC (Bld) 7.1 % 0-10 [facility] Neutrophils (Bld) [#/Vol] 7.8 10*3/uL 2.0-7.7 [facility] Neutrophils/100 WBC (Bld) 81.4 % 47-70 [facility] Potassium [Moles/Vol] 3.2 mmol/L 3.5-5.1 [facility] Sodium [Moles/Vol] 136 mmol/L 136-145 [facility] WBC (Bld) [#/Vol] 9.6 10*3/uL 4.4-11.0 [facility] Determination of erythrocyte mean corpuscular volume (MCV)Ordered By: Danielle Hernandez on 05-24-2023 MCV (RBC) [Entitic vol] 96.0 fL 80-94 [facility] Erythrocyte distribution wid th ratioOrdered By: Danielle Hernandez on 05-24-2023 Erythrocyte distribution width (RBC) [Ratio] 15.7 % 11.6-14.6 [facility] Erythrocyte distribution wid th standard deviationOrdered By: [facility] Hernandez on 05-24-2023 Erythrocyte distribution width (RBC) [Entitic vol] 54.4 fL 35.1-43.9 [facility] Hematocrit Auto (Bld) [Volum e fraction]Ordered By: [facility] Hernandez on 05-24-2023 Hematocrit (Bld) [Volume fraction] 43.3 % 40-54 [facility] Immature granulocytes/100 WB C Auto (Bld)Ordered By: [facility] Hernandez on 05-24-2023 Immature granulocytes/100 WBC (Bld) 0.500 % 0.0-0.9 [facility] Comment on above: IG% - Immature Granu locytes (promyelocytes, myelocytes and metamyelocytes) > 1% indicates that a LEFT SHIFT is Present. Laboratory - Chemistry and C hemistry - challengeOrdered By: [facility] Hernandez on 05-24-2023 CO2 [Moles/Vol] 33.0 mmol/L 21.0-32.0 [facility] Urea nitrogen/Creatinine [Mass ratio] 12.7 mg/mg 10-20 [facility] Laboratory - Hematology and Cell countsOrdered By: Karenpaysoncorey Hernandez on 05-24-2023 MCH (RBC) [Entitic mass] 31.9 pg 27.0-32.0 [facility] MCHC (RBC) [Mass/Vol] 33.3 g/dL 32-36 [facility] Nucleated RBC/100 WBC (Bld) [Ratio] 0 % 0-5 [facility] Platelet mean volume (Bld) [Entitic vol] 11.3 fL 6.2-12.0 [facility] Platelets (Bld) [#/Vol] 173 10*3/uL 150-450 [facility] No Panel InformationOrdered By: Danielle Hernandez on 05-24-2023 Estimated GFR (MDRD) Amer 82 mL/min >60 [facility] Comment on above: GFR Calc Estimated GFR (MDRD) Non-Af Amer 68 mL/min >60 [facility] Comment on above: Non- GFR Calc RBC Auto (Bld) [#/Vol]Ordere d By: Danielle Hernandez on 05-24-2023 RBC (Bld) [#/Vol] 4.51 10*6/uL 4.6-6.2 [facility] Serum or plasma calcium cr urement (mass/volume)Ordered By: Danielle Hernandez on 05-24-2023 Calcium [Mass/Vol] 9.6 mg/dL 8.5-10.1 [facility] Serum or plasma creatinine m easurement (mass/volume)Ordered By: Danielle Hernandez on 05-24-2023 Creatinine [Mass/Vol] 1.10 mg/dL 0.70-1.30 [facility] Comment on above: The validity of the calculated GFR & GFRAA in patients over 70 years has not been determined. Clinical correlation is essential. Serum or plasma urea nitroge n measurement (mass/volume)Ordered By: Danielle Hernandez on 05-24-2023 Urea nitrogen [Mass/Vol] 14 mg/dL 7-18 [facility] Thin prep Papanicolaou smear with manual screeningOrdered By: Danielle Hernandez on 05-24-2023 Thin prep Papanicolaou smear with manual screening 4 5-15 [facility] Absolute lymphocyte countOrd ered By: Diandra Abdi on 05-17-2023 Lymphocytes Auto (Unsp spec) [#/Vol] 0.82 10*3/uL 0.83-4.51 [facility] Automated lymphocyte count a s percentage of total leukocytesOrdered By: Diandra Abdi on 05-17-2023 Lymphocytes/100 WBC Auto (Unsp spec) 8.0 % 19-41 [facility] Basophil percentageOrdered B y: Diandra Abdi on 05-17-2023 Basophils/100 WBC (Bld) 0.3 % 0-1 [facility] Chloride [Moles/Vol] 103 mmol/L 98-107 [facility] Eosinophils/100 WBC (Bld) 1.1 % 0-5 [facility] Glucose [Mass/Vol] 149 mg/dL 74-106 [facility] Comment on above: Fasting Glucose resu lt greater than or equal to 126 mg/dL suggests DIABETES MELLITUS per A.D.A. criteria. Hemoglobin (Bld) [Mass/Vol] 13.8 g/dL 13.0-16.5 [facility] Monocytes/100 WBC (Bld) 7.0 % 0-10 [facility] Neutrophils (Bld) [#/Vol] 8.5 10*3/uL 2.0-7.7 [facility] Neutrophils/100 WBC (Bld) 83.0 % 47-70 [facility] Potassium [Moles/Vol] 3.6 mmol/L 3.5-5.1 [facility] Sodium [Moles/Vol] 139 mmol/L 136-145 [facility] WBC (Bld) [#/Vol] 10.3 10*3/uL 4.4-11.0 [facility] Determination of erythrocyte mean corpuscular volume (MCV)Ordered By: Diandra Abdi on 05-17-2023 MCV (RBC) [Entitic vol] 96.6 fL 80-94 [facility] Erythrocyte distribution wid th ratioOrdered By: Diandra Abdi on 05-17-2023 Erythrocyte distribution width (RBC) [Ratio] 15.7 % 11.6-14.6 [facility] Erythrocyte distribution wid th standard deviationOrdered By: Diandra Abdi on 05-17-2023 Erythrocyte distribution width (RBC) [Entitic vol] 55.3 fL 35.1-43.9 [facility] Hematocrit Auto (Bld) [Volum e fraction]Ordered By: Diandra Abdi on 05-17-2023 Hematocrit (Bld) [Volume fraction] 42.0 % 40-54 [facility] Immature granulocytes/100 WB C Auto (Bld)Ordered By: Diandra Abdi on 05-17-2023 Immature granulocytes/100 WBC (Bld) 0.600 % 0.0-0.9 [facility] Comment on above: IG% - Immature Granu locytes (promyelocytes, myelocytes and metamyelocytes) > 1% indicates that a LEFT SHIFT is Present. Laboratory - Chemistry and C hemistry - challengeOrdered By: Diandra Abdi on 05-17-2023 CO2 [Moles/Vol] 30.0 mmol/L 21.0-32.0 [facility] Urea nitrogen/Creatinine [Mass ratio] 16.6 mg/mg 10-20 [facility] Laboratory - Hematology and Cell countsOrdered By: Diandra Abdi on 05-17-2023 MCH (RBC) [Entitic mass] 31.7 pg 27.0-32.0 [facility] MCHC (RBC) [Mass/Vol] 32.9 g/dL 32-36 [facility] Nucleated RBC/100 WBC (Bld) [Ratio] 0 % 0-5 [facility] Platelet mean volume (Bld) [Entitic vol] 11.8 fL 6.2-12.0 [facility] Platelets (Bld) [#/Vol] 145 10*3/uL 150-450 [facility] No Panel InformationOrdered By: Diandra Abdi on 05-17-2023 Estimated GFR (MDRD) Amer 96 mL/min >60 [facility] Comment on above: GFR Calc Estimated GFR (MDRD) Non-Af Amer 79 mL/min >60 [facility] Comment on above: Non- GFR Calc RBC Auto (Bld) [#/Vol]Ordere d By: Diandra Abdi on 05-17-2023 RBC (Bld) [#/Vol] 4.35 10*6/uL 4.6-6.2 [facility] Serum or plasma calcium cr urement (mass/volume)Ordered By: Diandra Abdi on 05-17-2023 Calcium [Mass/Vol] 9.5 mg/dL 8.5-10.1 [facility] Serum or plasma creatinine m easurement (mass/volume)Ordered By: Diandra Abdi on 05-17-2023 Creatinine [Mass/Vol] 0.96 mg/dL 0.70-1.30 [facility] Comment on above: The validity of the calculated GFR & GFRAA in patients over 70 years has not been determined. Clinical correlation is essential. Serum or plasma urea nitroge n measurement (mass/volume)Ordered By: Diandra Abdi on 05-17-2023 Urea nitrogen [Mass/Vol] 16 mg/dL 7-18 [facility] Thin prep Papanicolaou smear with manual screeningOrdered By: Diandra Abdi on 05-17-2023 Thin prep Papanicolaou smear with manual screening 6 5-15 [facility] Urine Legionella pneumophila antigen detectionOrdered By: Diandra Abdi on 05-16-2023 L. pneumophila Ag Ql (U) [facility] L. pneumophila Ag Ql (U) [facility] Bilirubin Test strip Ql (U)O rdered By: Diandra Abdi on 05-15-2023 Bilirubin Ql (U) Negative Negative [facility] Culture, urineOrdered By: Bernabe Abdi on 05-15-2023 Bacteria identified Cx Nom (U) Positive [facility] Bacteria identified Cx Nom (U) Positive [facility] Ketones Test strip Ql (U)Ord ered By: Diandra Abdi on 05-15-2023 Ketones Ql (U) Negative Negative [facility] Nitrite Test strip Ql (U)Ord ered By: Diandra Abdi on 05-15-2023 Nitrite Ql (U) Positive Negative [facility] Protein Test strip Ql (U)Ord ered By: Diandra Abdi on 05-15-2023 Protein Ql (U) 15 mg/dl Negative [facility] Urine blood detectionOrdered By: Diandra Abdi on 05-15-2023 RBC Ql (U) 10 /ul Negative [facility] Urine clarityOrdered By: Barney Abdi on 05-15-2023 Clarity (U) Sl. Cloudy Clear [facility] Urine color determinationOrd ered By: Diandra Abdi on 05-15-2023 Color (U) Yellow Yellow [facility] Urine glucose detectionOrder ed By: Diandra Abdi on 05-15-2023 Glucose Ql (U) Normal mg/dl Normal [facility] Urine leukocyte esterase det ection by dipstickOrdered By: Diandra Abdi on 05-15-2023 Leukocyte esterase Test strip Ql (U) 500 /ul Negative [facility] Urine pHOrdered By: Diandra Abdi on 05-15-2023 pH (U) 7.0 [pH] 5.0 - 8.0 [facility] Urine specific gravity measu rementOrdered By: Diandra Abdi on 05-15-2023 Specific gravity (U) [Rel density] 1.010 1.002-1.030 [facility] Urine urobilinogen measureme ntOrdered By: Diandra Abdi on 05-15-2023 Urobilinogen Ql (U) 1 mg/dl Normal [facility] CNOVon 04-30-2023 CNOV Office Visit (NEAGCLM) MICK COTTRELL ([id number]) 1940 M Date Time Provider Department 04/30/23 2:00 PM SIXTO KELLY NEAGCLM During your visit today, we recorded the following information about you: Pulse Respiration Blood pressure Weight 54/minute 16/minute 171/78 85.7 kg Height 1.753 m Sixto Kelly MD 04/30/2023 2:13 PM Signed NEUROSURGERY FOLLOW UP OFFICE NOTE Dr. Sixto Kelly MD, [facility] Date of visit: April 30, 2023 Patient Name: Mr.Thomas Cottrell Date of : 1940 Current Age: [age] year old Sex: male MRN/E# [id number] Last Office Visit: Hospital follow-up CHIEF COMPLAINT: [...] left-sided subdural hematoma. He was transferred to [facility] for higher acuity care. Review of [...] (more content not included)... Normal [facility] CT BRAIN WO IVCONon 04-30-19 CT [...] base and imaged soft tissues are unremarkable. Historical Site Guide (topogram) images: Unremarkable. IMPRESSION: 1. Slight interval [...] on 05/01/2023 1:00 PM via verbal communication. 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 Trans[facility] Date/Time: May 01 2023 12:48P Dictated by : HYACINTH FLOOD MD This examination was interpreted and the report reviewed and electronically signed by: HYACINTH FLOOD MD on May 01 2023 1:01PM EST [id number] Normal [facility] Absolute lymphocyte countOrd ered By: Danielle Hernandez on 04-25-2023 Lymphocytes Auto (Unsp spec) [#/Vol] 1.02 10*3/uL 0.83-4.51 [facility] Automated lymphocyte count a s percentage of total leukocytesOrdered By: Danielle Hernandez on 04-25-2023 Lymphocytes/100 WBC Auto (Unsp spec) 14.1 % 19-41 [facility] Basophil percentageOrdered B y: Danielle Hernandez on 04-25-2023 Basophils/100 WBC (Bld) 0.4 % 0-1 [facility] Chloride [Moles/Vol] 104 mmol/L 98-107 [facility] Eosinophils/100 WBC (Bld) 2.1 % 0-5 [facility] Glucose [Mass/Vol] 126 mg/dL 74-106 [facility] Comment on above: Fasting Glucose resu lt greater than or equal to 126 mg/dL suggests DIABETES MELLITUS per A.D.A. criteria. Hemoglobin (Bld) [Mass/Vol] 12.9 g/dL 13.0-16.5 [facility] Monocytes/100 WBC (Bld) 7.1 % 0-10 [facility] Neutrophils (Bld) [#/Vol] 5.5 10*3/uL 2.0-7.7 [facility] Neutrophils/100 WBC (Bld) 75.7 % 47-70 [facility] Potassium [Moles/Vol] 4.2 mmol/L 3.5-5.1 [facility] Comment on above: Moderate Hemolysis, Result may be falsely increased. Sodium [Moles/Vol] 137 mmol/L 136-145 [facility] WBC (Bld) [#/Vol] 7.2 10*3/uL 4.4-11.0 [facility] CNPNon 04-25-2023 CNPN Telephone (NEAGCLM) MICK COTTRELL ([id number]) 1940 M Date Time Provider Department 04/25/23 SIXTO KELLY NEAGCLM During your visit today, [...] Encounter Status:Closed by JOSE DAMON on 04/25/23 Normal [facility] Determination of erythrocyte mean corpuscular volume (MCV)Ordered By: Danielle Hernandez on 04-25-2023 MCV (RBC) [Entitic vol] 95.8 fL 80-94 [facility] Erythrocyte distribution wid th ratioOrdered By: Danielle Hernandez on 04-25-2023 Erythrocyte distribution width (RBC) [Ratio] 14.7 % 11.6-14.6 [facility] Erythrocyte distribution wid th standard deviationOrdered By: Danielle Hernandez on 04-25-2023 Erythrocyte distribution width (RBC) [Entitic vol] 51.3 fL 35.1-43.9 [facility] Hematocrit Auto (Bld) [Volum e fraction]Ordered By: Danielle Hernandez on 04-25-2023 Hematocrit (Bld) [Volume fraction] 38.8 % 40-54 [facility] Immature granulocytes/100 WB C Auto (Bld)Ordered By: Danielle Hernandez on 04-25-2023 Immature granulocytes/100 WBC (Bld) 0.600 % 0.0-0.9 [facility] Comment on above: IG% - Immature Granu locytes (promyelocytes, myelocytes and metamyelocytes) > 1% indicates that a LEFT SHIFT is Present. Laboratory - Chemistry and C hemistry - challengeOrdered By: constantinpaysoncorey Hernandez on 04-25-2023 CO2 [Moles/Vol] 29.0 mmol/L 21.0-32.0 [facility] Urea nitrogen/Creatinine [Mass ratio] 11.4 mg/mg 10-20 [facility] Laboratory - Hematology and Cell countsOrdered By: blanca Hernandez on 04-25-2023 MCH (RBC) [Entitic mass] 31.9 pg 27.0-32.0 [facility] MCHC (RBC) [Mass/Vol] 33.2 g/dL 32-36 [facility] Nucleated RBC/100 WBC (Bld) [Ratio] 0 % 0-5 [facility] Platelets (Bld) [#/Vol] 136 10*3/uL 150-450 [facility] No Panel InformationOrdered By: Dainelle Hernandez on 04-25-2023 Estimated GFR (MDRD) Amer 87 mL/min >60 [facility] Comment on above: GFR Calc Estimated GFR (MDRD) Non-Af Amer 72 mL/min >60 [facility] Comment on above: Non- GFR Calc Platelet mean volume Russell-Ec ker (Bld) [Entitic vol]Ordered By: Danielle Hernandez on 04-25-2023 Platelet mean volume (Bld) [Entitic vol] 11.1 fL 6.2-12.0 [facility] RBC Auto (Bld) [#/Vol]Ordere d By: Danielle Sengramin on 04-25-2023 RBC (Bld) [#/Vol] 4.05 10*6/uL 4.6-6.2 [facility] Serum or plasma calcium cr urement (mass/volume)Ordered By: Danielle Hernandez on 04-25-2023 Calcium [Mass/Vol] 9.1 mg/dL 8.5-10.1 [facility] Serum or plasma creatinine m easurement (mass/volume)Ordered By: Danielle Hernandez on 04-25-2023 Creatinine [Mass/Vol] 1.05 mg/dL 0.70-1.30 [facility] Comment on above: The validity of the calculated GFR & GFRAA in patients over 70 years has not been determined. Clinical correlation is essential. Serum or plasma urea nitroge n measurement (mass/volume)Ordered By: Danielle Hernandez on 04-25-2023 Urea nitrogen [Mass/Vol] 12 mg/dL 7-18 [facility] Thin prep Papanicolaou smear with manual screeningOrdered By: Danielle Hernandez on 04-25-2023 Thin prep Papanicolaou smear with manual screening 4 5-15 [facility] ([id number]) 1940 M Date Time Provider Department 04/19/23 SIXTO KELLY NEGRACE During your visit today, we recorded the following information about you: Jose Damon 04/19/2023 10:55 AM Addendum I returned facility vm from [place] about son not being happy of appt being rescheduled again. Per Vivian patient can have CT anywhere as long as we have acces to the scan and follow up over phone. [facility] [phone] Allergies As of Date: 04/19/2023 Noted Allergy Reaction PENICILLINS 03/17/2023 16 - Unknown Date Reviewed: 03/21/2023 Reviewed by: Kasandra Ha RN - Fully Assessed Prescriptions as of [...] Status:Closed by JOSE DAMON on 04/19/23 [facility] Neto 04-17-2023 CNPN Telephone (BERNARDOCelsionWilfrido) MICK COTTRELL ([id number]) 1940 M Date Time Provider Department 04/17/23 DAYLIN LAURENT ([facility]) MATTEO During your visit today, we recorded the following information about you: Allergies As of Date: 04/17/2023 Noted Allergy Reaction PENICILLINS 03/17/2023 16 - Unknown Date Reviewed: 03/21/2023 Reviewed by: Kasandra Ha RN - Fully Assessed Prescriptions as of [...] DAYLIN BRAGA on 04/17/23 Normal [facility] Absolute lymphocyte countOrd ered By: Danielle Hernandez on 04-11-2023 Lymphocytes Auto (Unsp spec) [#/Vol] 1.35 10*3/uL 0.83-4.51 [facility] Automated lymphocyte count a s percentage of total leukocytesOrdered By: Danielle Hernandez on 04-11-2023 Lymphocytes/100 WBC Auto (Unsp spec) 20.9 % 19-41 [facility] Basophil percentageOrdered B y: Danielle Hernandez on 04-11-2023 Basophils/100 WBC (Bld) 0.2 % 0-1 [facility] Chloride [Moles/Vol] 104 mmol/L 98-107 [facility] Eosinophils/100 WBC (Bld) 2.0 % 0-5 [facility] Glucose [Mass/Vol] 122 mg/dL 74-106 [facility] Comment on above: Fasting Glucose resu lt from 100 to 125 mg/dL suggests IMPAIRED HOMEOSTASIS per A.D.A. criteria. Hemoglobin (Bld) [Mass/Vol] 13.6 g/dL 13.0-16.5 [facility] Monocytes/100 WBC (Bld) 8.4 % 0-10 [facility] Neutrophils (Bld) [#/Vol] 4.4 10*3/uL 2.0-7.7 [facility] Neutrophils/100 WBC (Bld) 68.0 % 47-70 [facility] Potassium [Moles/Vol] 3.8 mmol/L 3.5-5.1 [facility] Comment on above: Slight Hemolysis, Re sult may be falsely increased. Sodium [Moles/Vol] 137 mmol/L 136-145 [facility] WBC (Bld) [#/Vol] 6.5 10*3/uL 4.4-11.0 [facility] Blood manual differential co mment interpretation (narrative result)Ordered By: Danielle Hernandez on 04-11-2023 Manual differential comment Mark (Bld) [Interp] SCANNED [facility] Blood platelet adequacy dete ction by light microscopyOrdered By: Danielle Hernandez on 04-11-2023 Platelets LM Ql (Bld) MOD DEC ADEQ [facility] Determination of erythrocyte mean corpuscular volume (MCV)Ordered By: Danielle Hernandez on 04-11-2023 MCV (RBC) [Entitic vol] 95.4 fL 80-94 [facility] Erythrocyte distribution wid th ratioOrdered By: Karenpaysoncorey Hernandez on 04-11-2023 Erythrocyte distribution width (RBC) [Ratio] 14.3 % 11.6-14.6 [facility] Erythrocyte distribution wid th standard deviationOrdered By: Danielle Hernandez on 04-11-2023 Erythrocyte distribution width (RBC) [Entitic vol] 50.3 fL 35.1-43.9 [facility] Hematocrit Auto (Bld) [Volum e fraction]Ordered By: Danielle Hernandez on 04-11-2023 Hematocrit (Bld) [Volume fraction] 41.2 % 40-54 [facility] Immature granulocytes/100 WB C Auto (Bld)Ordered By: Danielle Hernandez on 04-11-2023 Immature granulocytes/100 WBC (Bld) 0.500 % 0.0-0.9 [facility] Comment on above: IG% - Immature Granu locytes (promyelocytes, myelocytes and metamyelocytes) > 1% indicates that a LEFT SHIFT is Present. Laboratory - Chemistry and C hemistry - challengeOrdered By: Danielle Hernandez on 04-11-2023 CO2 [Moles/Vol] 29.0 mmol/L 21.0-32.0 [facility] Urea nitrogen/Creatinine [Mass ratio] 11.0 mg/mg 10-20 [facility] Laboratory - Hematology and Cell countsOrdered By: Danielle Hernandez on 04-11-2023 MCH (RBC) [Entitic mass] 31.5 pg 27.0-32.0 [facility] MCHC (RBC) [Mass/Vol] 33.0 g/dL 32-36 [facility] Nucleated RBC/100 WBC (Bld) [Ratio] 0 % 0-5 [facility] Platelets (Bld) [#/Vol] 84 10*3/uL 150-450 [facility] No Panel InformationOrdered By: Danielle Hernandez on 04-11-2023 Estimated GFR (MDRD) Amer 76 mL/min >60 [facility] Comment on above: GFR Calc Estimated GFR (MDRD) Non-Af Amer 63 mL/min >60 [facility] Comment on above: Non- GFR Calc Platelet mean volume Russell-Ec ker (Bld) [Entitic vol]Ordered By: Danielle Hernandez on 04-11-2023 Platelet mean volume (Bld) [Entitic vol] 11.9 fL 6.2-12.0 [facility] RBC Auto (Bld) [#/Vol]Ordere d By: Danielle Hernandez on 04-11-2023 RBC (Bld) [#/Vol] 4.32 10*6/uL 4.6-6.2 [facility] Serum or plasma calcium cr urement (mass/volume)Ordered By: Danielle Hernandez on 04-11-2023 Calcium [Mass/Vol] 8.8 mg/dL 8.5-10.1 [facility] Serum or plasma creatinine m easurement (mass/volume)Ordered By: Danielle Hernandez on 04-11-2023 Creatinine [Mass/Vol] 1.18 mg/dL 0.70-1.30 [facility] Comment on above: The validity of the calculated GFR & GFRAA in patients over 70 years has not been determined. Clinical correlation is essential. Serum or plasma urea nitroge n measurement (mass/volume)Ordered By: Danielle Hernandez on 04-11-2023 Urea nitrogen [Mass/Vol] 13 mg/dL 7-18 [facility] Thin prep Papanicolaou smear with manual screeningOrdered By: Danielle Hernandez on 04-11-2023 Thin prep Papanicolaou smear with manual screening 4 5-15 [facility] Absolute lymphocyte countOrd ered By: Danielle Hernandez on 04-04-2023 Lymphocytes Auto (Unsp spec) [#/Vol] 1.23 10*3/uL 0.83-4.51 [facility] Basophil percentageOrdered B y: Danielle Hernandez on 04-04-2023 Basophils/100 WBC (Bld) 0.3 % 0-1 [facility] Chloride [Moles/Vol] 99 mmol/L 98-107 [facility] Eosinophils/100 WBC (Bld) 1.0 % 0-5 [facility] Glucose [Mass/Vol] 144 mg/dL 74-106 [facility] Comment on above: Fasting Glucose resu lt greater than or equal to 126 mg/dL suggests DIABETES MELLITUS per A.D.A. criteria. Neutrophils (Bld) [#/Vol] 7.6 10*3/uL 2.0-7.7 [facility] Neutrophils/100 WBC (Bld) 78.2 % 47-70 [facility] Potassium [Moles/Vol] 3.6 mmol/L 3.5-5.1 [facility] Sodium [Moles/Vol] 134 mmol/L 136-145 [facility] WBC (Bld) [#/Vol] 9.7 10*3/uL 4.4-11.0 [facility] Blood erythrocytes count (nu mber/volume)Ordered By: Danielle Hernandez on 04-04-2023 RBC (Bld) [#/Vol] 4.86 10*6/uL 4.6-6.2 [facility] Blood hemoglobin measurement (mass/volume)Ordered By: Danielle Hernandez on 04-04-2023 Hemoglobin (Bld) [Mass/Vol] 15.2 g/dL 13.0-16.5 [facility] Blood lymphocytes/100 leukoc ytesOrdered By: Danielle Hernandez on 04-04-2023 Lymphocytes/100 WBC (Bld) 12.7 % 19-41 [facility] Blood monocytes/100 leukocyt esOrdered By: Danielle Hernandez on 04-04-2023 Monocytes/100 WBC (Bld) 7.2 % 0-10 [facility] Blood platelet mean volumeOr dered By: Danielle Hernandez on 04-04-2023 Platelet mean volume (Bld) [Entitic vol] 11.7 fL 6.2-12.0 [facility] Determination of erythrocyte mean corpuscular volume (MCV)Ordered By: aDnielle Hernandez on 04-04-2023 MCV (RBC) [Entitic vol] 93.8 fL 80-94 [facility] Hematocrit Auto (Bld) [Volum e fraction]Ordered By: Karenpaysoncorey Hernandez on 04-04-2023 Hematocrit (Bld) [Volume fraction] 45.6 % 40-54 [facility] Laboratory - Chemistry and C hemistry - challengeOrdered By: [facility] Hernandez on 04-04-2023 CO2 [Moles/Vol] 27.0 mmol/L 21.0-32.0 [facility] Urea nitrogen/Creatinine [Mass ratio] 13.0 mg/mg 10-20 [facility] Laboratory - Hematology and Cell countsOrdered By: Danielle Hernandez on 04-04-2023 Erythrocyte distribution width (RBC) [Entitic vol] 50.3 fL 35.1-43.9 [facility] Erythrocyte distribution width (RBC) [Ratio] 14.5 % 11.6-14.6 [facility] Immature granulocytes/100 WBC (Bld) 0.600 % 0.0-0.9 [facility] Comment on above: IG% - Immature Granu locytes (promyelocytes, myelocytes and metamyelocytes) > 1% indicates that a LEFT SHIFT is Present. MCH (RBC) [Entitic mass] 31.3 pg 27.0-32.0 [facility] Nucleated RBC/100 WBC (Bld) [Ratio] 0 % 0-5 [facility] MCHC Auto (RBC) [Mass/Vol]Or dered By: Danielle Hernandez on 04-04-2023 MCHC (RBC) [Mass/Vol] 33.3 g/dL 32-36 [facility] No Panel InformationOrdered By: Danielle Hernandez on 04-04-2023 Estimated GFR (MDRD) Amer 78 mL/min >60 [facility] Comment on above: GFR Calc Estimated GFR (MDRD) Non-Af Amer 65 mL/min >60 [facility] Comment on above: Non- GFR Calc Platelets bldOrdered By: Abdulaziz Hernandez on 04-04-2023 Platelets (Bld) [#/Vol] 108 10*3/uL 150-450 [facility] Serum or plasma calcium cr urement (mass/volume)Ordered By: Danielle Hernandez on 04-04-2023 Calcium [Mass/Vol] 9.3 mg/dL 8.5-10.1 [facility] Serum or plasma creatinine m easurement (mass/volume)Ordered By: Danielle Hernandez on 04-04-2023 Creatinine [Mass/Vol] 1.15 mg/dL 0.70-1.30 [facility] Comment on above: The validity of the calculated GFR & GFRAA in patients over 70 years has not been determined. Clinical correlation is essential. Serum or plasma urea nitroge n measurement (mass/volume)Ordered By: Danielle Hernandez on 04-04-2023 Urea nitrogen [Mass/Vol] 15 mg/dL 7-18 [facility] Thin prep Papanicolaou smear with manual screeningOrdered By: Danielle Hernandez on 04-04-2023 Thin prep Papanicolaou smear with manual screening 8 5-15 [facility] Basophil percentageOrdered B y: Danielle Hernandez on 04-01-2023 Potassium [Moles/Vol] 4.0 mmol/L 3.5-5.1 [facility] Absolute lymphocyte countOrd ered By: Danielle Hernandez on 03-29-2023 Lymphocytes Auto (Unsp spec) [#/Vol] 0.86 10*3/uL 0.83-4.51 [facility] Basophil percentageOrdered B y: Danielle Hernandez on 03-29-2023 Basophils/100 WBC (Bld) 0.4 % 0-1 [facility] Bilirubin [Mass/Vol] 1.10 mg/dL 0.20-1.00 [facility] Comment on above: For patients on eltr ombopag therapy, use of Dimension [place] TBIL is not recommended. Chloride [Moles/Vol] 99 mmol/L 98-107 [facility] Cholesterol [Mass/Vol] 87 mg/dL <200 [facility] Comment on above: <200 mg/dL Desirable 200-240 mg/dL Borderline >240 mg/dL High Risk Eosinophils/100 WBC (Bld) 1.2 % 0-5 [facility] Glucose [Mass/Vol] 152 mg/dL 74-106 [facility] Comment on above: Fasting Glucose resu lt greater than or equal to 126 mg/dL suggests DIABETES MELLITUS per A.D.A. criteria. Neutrophils (Bld) [#/Vol] 8.5 10*3/uL 2.0-7.7 [facility] Neutrophils/100 WBC (Bld) 82.4 % 47-70 [facility] Potassium [Moles/Vol] 3.2 mmol/L 3.5-5.1 [facility] Protein [Mass/Vol] 5.8 g/dL 6.4-8.2 [facility] Sodium [Moles/Vol] 136 mmol/L 136-145 [facility] Triglyceride [Mass/Vol] 101 mg/dL <199 [facility] Comment on above: The drugs N-Acetylcy steine and Metamizole may falsely depress this assay.Serum Triglycerides Reference Interval Normal <150 mg/dL Borderline high 150 - 199 mg/dL High 200 - 499 mg/dL Very High > or = 500 mg/dL WBC (Bld) [#/Vol] 10.3 10*3/uL 4.4-11.0 [facility] Blood erythrocytes count (nu mber/volume)Ordered By: Danielle Hernandez on 03-29-2023 RBC (Bld) [#/Vol] 4.67 10*6/uL 4.6-6.2 [facility] Blood hemoglobin measurement (mass/volume)Ordered By: Danielle Hernandez on 03-29-2023 Hemoglobin (Bld) [Mass/Vol] 14.5 g/dL 13.0-16.5 [facility] Blood lymphocytes/100 leukoc ytesOrdered By: Danielle Hernandez on 03-29-2023 Lymphocytes/100 WBC (Bld) 8.3 % 19-41 [facility] Blood monocytes/100 leukocyt esOrdered By: blanca Hernandez on 03-29-2023 Monocytes/100 WBC (Bld) 7.1 % 0-10 [facility] Blood platelet mean volumeOr dered By: blanca Hernandez on 03-29-2023 Platelet mean volume (Bld) [Entitic vol] 11.9 fL 6.2-12.0 [facility] Determination of erythrocyte mean corpuscular volume (MCV)Ordered By: blanca Hernandez on 03-29-2023 MCV (RBC) [Entitic vol] 94.2 fL 80-94 [facility] Hematocrit Auto (Bld) [Volum e fraction]Ordered By: Danielle Hernandez on 03-29-2023 Hematocrit (Bld) [Volume fraction] 44.0 % 40-54 [facility] Laboratory - Chemistry and C hemistry - challengeOrdered By: Danielle Hernandez on 03-29-2023 ALP [Catalytic activity/Vol] 152 U/L 45-117 [facility] ALT [Catalytic activity/Vol] 48 U/L 16-61 [facility] CO2 [Moles/Vol] 31.0 mmol/L 21.0-32.0 [facility] Globulin (S) [Mass/Vol] 2.9 g/dL 2.2-4.2 [facility] Urea nitrogen/Creatinine [Mass ratio] 19.1 mg/mg 10-20 [facility] Laboratory - Hematology and Cell countsOrdered By: Danielle Hernandez on 03-29-2023 Erythrocyte distribution width (RBC) [Entitic vol] 50.6 fL 35.1-43.9 [facility] Erythrocyte distribution width (RBC) [Ratio] 14.6 % 11.6-14.6 [facility] Immature granulocytes/100 WBC (Bld) 0.600 % 0.0-0.9 [facility] Comment on above: IG% - Immature Granu locytes (promyelocytes, myelocytes and metamyelocytes) > 1% indicates that a LEFT SHIFT is Present. MCH (RBC) [Entitic mass] 31.0 pg 27.0-32.0 [facility] Nucleated RBC/100 WBC (Bld) [Ratio] 0 % 0-5 [facility] MCHC Auto (RBC) [Mass/Vol]Or dered By: Danielle Hernandez on 03-29-2023 MCHC (RBC) [Mass/Vol] 33.0 g/dL 32-36 [facility] No Panel InformationOrdered By: Danielle Hernandez on 03-29-2023 Estimated GFR (MDRD) Amer 82 mL/min >60 [facility] Comment on above: GFR Calc Estimated GFR (MDRD) Non-Af Amer 68 mL/min >60 [facility] Comment on above: Non- GFR Calc Levetiracetam (Keppra) Level 12.5 ug/mL 10.0-40.0 [facility] Comment on above: Performed at: [facility] - [address] [id number] Director: Reid Chanel MD, Phone: [phone] Platelets bldOrdered By: Abdulaziz Hernandez on 03-29-2023 Platelets (Bld) [#/Vol] 106 10*3/uL 150-450 [facility] Serum or plasma albumin cr urement (mass/volume)Ordered By: Danielle Hernandez on 03-29-2023 Albumin [Mass/Vol] 2.9 g/dL 3.2-5.0 [facility] Serum or plasma albumin/glob ulin mass ratioOrdered By: Danielle Hernandez on 03-29-2023 Albumin/Globulin [Mass ratio] 1.0 {ratio} 0.9-2.4 [facility] Serum or plasma calcium cr urement (mass/volume)Ordered By: Danielle Hernandez on 03-29-2023 Calcium [Mass/Vol] 9.1 mg/dL 8.5-10.1 [facility] Serum or plasma cholesterol in HDL measurement (mass/volume)Ordered By: Danielle Hernandez on 03-29-2023 Cholesterol in HDL [Mass/Vol] 28 mg/dL >40 [facility] Comment on above: The drugs N-Acetylcy steine and Metamizole may falsely depress this assay. Reference Range HDL <40 mg/dL Low HDL Cholesterol HDL >or= 60 mg/dL High HDL Cholesterol Serum or plasma cholesterol in VLDL measurement (mass/volume)Ordered By: Danielle Hernandez on 03-29-2023 Cholesterol in VLDL [Mass/Vol] 20 mg/dL 5-40 [facility] Serum or plasma creatinine m easurement (mass/volume)Ordered By: Danielle Hernandez on 03-29-2023 Creatinine [Mass/Vol] 1.10 mg/dL 0.70-1.30 [facility] Comment on above: The validity of the calculated GFR & GFRAA in patients over 70 years has not been determined. Clinical correlation is essential. Serum or plasma low density lipoprotein (LDL) cholesterol measurement (mass/volume)Ordered By: Danielle Hernandez on 03-29-2023 Cholesterol in LDL [Mass/Vol] 39 mg/dL 0-130 [facility] Serum or plasma urea nitroge n measurement (mass/volume)Ordered By: Danielle Hernandez on 03-29-2023 Urea nitrogen [Mass/Vol] 21 mg/dL 7-18 [facility] Thin prep Papanicolaou smear with manual screeningOrdered By: Danielle Hernandez on 03-29-2023 Thin prep Papanicolaou smear with manual screening 21 U/L 15-37 [facility] Thin prep Papanicolaou smear with manual screening 6 5-15 [facility] Whole blood hemoglobin A1c/t otal hemoglobin ratio (mass fraction)Ordered By: Danielle Hernandez on 03-29-2023 HbA1c (Bld) [Mass fraction] 6.5 % 3.8-5.6 [facility] Comment on above: Normal < 5.7 % Predi abetic 5.7 - 6.4 % Diabetic >or= 6.5 % Please note range changes. Neto 03-26-2023 [facility] Telephone ([place]) MICK COTTRELL ([id number]) 1940 M Date Time Provider Department 03/26/23 [...] 03/21/2023 Arrhythmia [I49.9] 03/21/2023 Encounter Status:Closed by JOES DAMON on 03/26/23 [facility] 03-22-2023 [facility] Telephone ([employer]) MICK COTTRELL ([id number]) 1940 M Date Time Provider Department 03/22/23 [facility] [employer] During your visit today, we recorded the [...] Fracture Reason for the call/escalation: Karie from [facility] was trying to schedule for patient but did not know if the patient has had an MRI for thumb or not and I was unable to continue with scheduling. Patient needs appointment for fractured thumb. If reason for call/escalation is discharge from ED/ER or Hospital, which facility was the patient seen at: [facility] Was an appointment scheduled (Y/N): N Person calling if other than patient: Karie with [facility] Return call to if other than patient: [phone] Best contact number: [phone] Thank you, Meghan Rios March 22, 2023 12:06 PM Allergies As of Date: 03/22/2023 Noted Allergy Reaction PENICILLINS 03/17/2023 16 - Unknown Date Reviewed: 03/21/2023 Reviewed by: Kasandra Ha RN - Fully Assessed Reason for Visit: ER F/U [41] Cmt: 03/17, f/u with [facility] Prescriptions as of 03/22/2023 - acetaminophen (TYLENOL) [...] MARIAMA JOHANSEN on 03/22/23 Normal [facility] Basic metabolic 2000 panelon 03-21-2023 Anion gap [Moles/Vol] 9 mmol/L Normal 9-18 [facility] Comment on above: Order Comment: Speci men Type: BLOOD SPECIMEN Ordering Facility: [facility] Address: [address] [place] [address] Performed By: #### 5 8410-2 #### [facility] CLIA [id number] [address] [place] [address] [place] Calcium [Mass/Vol] 9.0 mg/dL Normal 8.5-10.2 [facility] Comment on above: Order Comment: Speci men Type: BLOOD SPECIMEN Ordering Facility: [facility] Address: [address] [place] [address] Performed By: #### 5 8410-2 #### [facility] CLIA [id number] [address] [place] [address] [place] Chloride [Moles/Vol] 102 mmol/L Normal 97-105 [facility] Comment on above: Order Comment: Speci men Type: BLOOD SPECIMEN Ordering Facility: [facility] Address: [address] [place] [address] Performed By: #### 5 8410-2 #### [facility] CLIA [id number] [address] [place] CO2 [Moles/Vol] 23 mmol/L Normal 22-30 [facility] Comment on above: Order Comment: Speci men Type: BLOOD SPECIMEN Ordering Facility: [facility] Address: [address] [place] [address] Performed By: #### 5 8410-2 #### [facility] CLIA [id number] [address] [place] Creatinine [Mass/Vol] 1.03 mg/dL Normal 0.73-1.22 [facility] Comment on above: Order Comment: Speci men Type: BLOOD SPECIMEN Ordering Facility: [facility] Address: [address] [place] [address] Performed By: #### 5 8410-2 #### [facility] CLIA [id number] [address] Creatinine and Glomerular filtration rate.predicted panel (S/P/Bld) 73 mL/min/1.73m??? Normal >=60 [facility] Comment on above: Order Comment: Speci men Type: BLOOD SPECIMEN Ordering Facility: [facility] Address: [address] [place] [address] Result Comment: Vivienne mated Glomerular Filtration Rate [...] Performed By: #### 5 8410-2 #### [facility] CLIA [id number] [address] [place] Glucose [Mass/Vol] 187 mg/dL High 74-99 [facility] Comment on above: Order Comment: Speci men Type: BLOOD SPECIMEN Ordering Facility: [facility] Address: [address] [place] [address] Result Comment: The [place] [employer] (ADA) provides guidance for cutoff [...] Standards of Medical Care in Diabetes 2016, [place] [employer]. Diabetes Care. 2016.39(Suppl 1). Performed By: #### 5 8410-2 #### [facility] CLIA [id number] [address] [place] [address] [place] Potassium [Moles/Vol] 3.9 mmol/L Normal 3.7-5.1 [facility] Comment on above: Order Comment: Speci men Type: BLOOD SPECIMEN Ordering Facility: [facility] Address: [address] [place] [address] Performed By: #### 5 8410-2 #### [facility] CLIA [id number] [address] [place] [address] [place] Sodium [Moles/Vol] 134 mmol/L Low 136-144 [facility] Comment on above: Order Comment: Speci men Type: BLOOD SPECIMEN Ordering Facility: [facility] Address: [address] [place] [address] Performed By: #### 5 8410-2 #### [facility] CLIA [id number] [address] [place] [address] [place] Urea nitrogen [Mass/Vol] 26 mg/dL High 9-24 [facility] Comment on above: Order Comment: Speci men Type: BLOOD SPECIMEN Ordering Facility: [facility] Address: [address] [place] [address] Performed By: #### 5 8410-2 #### [facility] CLIA [id number] [address] [place] [address] CBC panel Auto (Bld)on 03-21 Erythrocyte distribution width (RBC) [Ratio] 15.1 % High 11.5-15.0 [facility] Comment on above: Order Comment: Speci men Type: BLOOD SPECIMEN Ordering Facility: [facility] Address: [address] [place] [address] Performed By: #### 5 8410-2 #### [facility] CLIA [id number] [address] Hematocrit (Bld) [Volume fraction] 42.4 % Normal 39.0-51.0 [facility] Comment on above: Order Comment: Speci men Type: BLOOD SPECIMEN Ordering Facility: [facility] Address: [address] [place] [address] Performed By: #### 5 8410-2 #### [facility] CLIA [id number] [address] Hemoglobin (Bld) [Mass/Vol] 14.4 g/dL Normal 13.0-17.0 [facility] Comment on above: Order Comment: Speci men Type: BLOOD SPECIMEN Ordering Facility: [facility] Address: [address] [place] [address] Performed By: #### 5 8410-2 #### [facility] CLIA [id number] [address] MCH (RBC) [Entitic mass] 32.3 pg Normal 26.0-34.0 [facility] Comment on above: Order Comment: Speci men Type: BLOOD SPECIMEN Ordering Facility: [facility] Address: [address] [place] [address] Performed By: #### 5 8410-2 #### [facility] CLIA [id number] [address] MCHC (RBC) [Mass/Vol] 34.0 g/dL Normal 30.5-36.0 [facility] Comment on above: Order Comment: Speci men Type: BLOOD SPECIMEN Ordering Facility: [facility] Address: [address] [place], [place] [id number] Performed By: #### 5 8410-2 #### [facility] CLIA [id number] [address] MCV (RBC) [Entitic vol] 95.1 fL Normal 80.0-100.0 [facility] Comment on above: Order Comment: Speci men Type: BLOOD SPECIMEN Ordering Facility: [facility] Address: [address] [place] [address] Performed By: #### 5 8410-2 #### [facility] CLIA [id number] [address] Nucleated RBC (Bld) [#/Vol] 10*3/uL Normal <0.01 [facility] Comment on above: Order Comment: Speci men Type: BLOOD SPECIMEN Ordering Facility: [facility] Address: [address] [place] [address] Performed By: #### 5 8410-2 #### [facility] CLIA [id number] [address] Platelet mean volume (Bld) [Entitic vol] 12.0 fL Normal 9.0-12.7 [facility] Comment on above: Order Comment: Speci men Type: BLOOD SPECIMEN Ordering Facility: [facility] Address: [address] [place] [address] Performed By: #### 5 8410-2 #### [facility] CLIA [id number] [address] Platelets (Bld) [#/Vol] 127 10*3/uL Low 150-400 [facility] Comment on above: Order Comment: Speci men Type: BLOOD SPECIMEN Ordering Facility: [facility] Address: [address] [place] [address] Result Comment: No c lot detected. Performed By: #### 5 8410-2 #### [facility] CLIA [id number] [address] [place] RBC (Bld) [#/Vol] 4.46 10*6/uL Normal 4.20-6.00 [facility] Comment on above: Order Comment: Speci men Type: BLOOD SPECIMEN Ordering Facility: [facility] Address: [place] [address] Performed By: #### 5 8410-2 #### [facility] CLIA [id number] [address] WBC (Bld) [#/Vol] 9.52 10*3/uL Normal 3.70-11.00 [facility] Comment on above: Order Comment: Speci men Type: BLOOD SPECIMEN Ordering Facility: [facility] Address: [place] [address] Performed By: #### 5 8410-2 #### [facility] CLIA [id number] [address] CNDSon 03-21-2023 CNDS HNO ID: [id number] Author: Irving Modi PA-C Service: General Surgery Author Type: Physician Supervising Nurse Type: Discharge Summary Filed: 03/21/2023 3:42 PM Note Text: Attestation signed by Almas Kaur MD at 03/21/2023 5:01 PM The [facility], acting on behalf of the attending physician, has completed the [id number]-[id number] portion of the patient discharge encounter. SIGNATURE: Almas Kaur MD PATIENT NAME: Mick Cottrell DATE: March 21, 2023 TIME: 5:01 PM Pager: [phone] DISCHARGE SUMMARY PATIENT NAME: Mick Cottrell Code Status: DNR-CCA DNI Highest Readmission Risk Score: 26 The [...] HOSPITAL: Mr. Mick Cottrell was transferred to [facility] from [facility] on 03/15/2023 for treatment of injuries [...] occupational therapy who recommended discharge to a senior care facility. Mr. Cottrell was discharged in stable [...] (more content not included)... Normal [facility] CONSULT PROGon 03-21-2023 CONSULT PROG HNO ID: [id number] Author: Sonido Washington MD Service: Clinical Cardiology [...] (more content not included)... Normal [facility] ECHOon 03-21-2023 Echocardiography Echocardiography Report: Transthoracic Echo [facility] Date of service: 03/21/2023 9:14:01 AM [...] * * Final * * * CC [facility] : [id number] Normal [facility] NURSING PROGon 03-21-2023 NURSING PROG HNO ID: [id number] Author: Ellie Garrison RN Service: Cardiovascular Testing Author Type: Registered Nurse Type: Nursing Progress Note Filed: 03/21/2023 4:49 PM Note Text: 14 day Extended wear EKG patch applied per order. Attempted to instruct patient on duration, restrictions and changing of patch, minimal success. Note to detention facility placed in transfer folder. Normal [facility] THERAPY NTon 03-21-2023 THERAPY NT HNO ID: [id number] Author: Priscilla Hutchison PTA Service: Physical Therapy Author Type: Cuffer Type: Therapy (PT/OT/Speech/Resp) Filed: 03/21/2023 1:31 PM Note Text: Attestation signed by Jacki Arroyo, PT at 03/21/2023 4:19 PM I reviewed and agree with the documentation corresponding to this therapy visit. SIGNATURE: Jacki Arroyo, PT DATE: March 21, 2023 TIME: 4:19 PM Physical Therapy Treatment SERVICE DATE: 03/21/2023 SERVICE TIME: 1209 to 1232 ROOM: [place] [address] Recommended Discharge Disposition: Subacute/SNF Recommended Discharge Disposition [...] able to maintain balance while turning head/trunk -HLM: 7: Walk 25 feet or more Learning/Educational Needs: Functional Activities/Mobility Mini Cog Score: 0 (03/20/23 0901) Goals for Plan of Care: Patient/Caregiver Goals: Go Home Able to Perform HEP w (more content not included)... Normal [facility] ALLIED HEALTHon 03-20-2023 ALLIED HEALTH HNO ID: [id number] Author: Isaura Paredes RT(R) Service: Radiology Author Type: 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 Type: Allied Health Filed: 03/20/2023 7:20 AM [...] 20, 2023 7:19 AM Normal [facility] Basic metabolic 2000 panelon 03-20-2023 Anion gap [Moles/Vol] 13 mmol/L Normal 9-18 [facility] Comment on above: Order Comment: Speci men Type: BLOOD SPECIMEN Ordering Facility: [facility] Address: [address] [place] [address] Performed By: #### 3 4528-0, 27991-5 #### [facility] CLIA [id number] 1 [place] [address] [place] Calcium [Mass/Vol] 9.2 mg/dL Normal 8.5-10.2 [facility] Comment on above: Order Comment: Speci men Type: BLOOD SPECIMEN Ordering Facility: [facility] Address: [address] [place] [address] Performed By: #### 3 4528-0, 82565-6 #### [facility] CLIA [id number] 1 [place] [address] [place] Chloride [Moles/Vol] 102 mmol/L Normal 97-105 [facility] Comment on above: Order Comment: Speci men Type: BLOOD SPECIMEN Ordering Facility: [facility] Address: [address] [place] [address] Performed By: #### 3 4528-0, 38487-6 #### [facility] CLIA [id number] [address] [place] CO2 [Moles/Vol] 22 mmol/L Normal 22-30 [facility] Comment on above: Order Comment: Speci men Type: BLOOD SPECIMEN Ordering Facility: [facility] Address: [address] [place] [address] Performed By: #### 3 4528-0, 73324-9 #### [facility] CLIA [id number] [address] [place] Creatinine [Mass/Vol] 0.99 mg/dL Normal 0.73-1.22 [facility] Comment on above: Order Comment: Speci men Type: BLOOD SPECIMEN Ordering Facility: [facility] Address: [address] [place] [address] Performed By: #### 3 4528-0, 37777-6 #### [facility] CLIA [id number] [address] Creatinine and Glomerular filtration rate.predicted panel (S/P/Bld) 76 mL/min/1.73m??? Normal >=60 [facility] Comment on above: Order Comment: Speci men Type: BLOOD SPECIMEN Ordering Facility: [facility] Address: [address] [place] [address] Result Comment: Vivienne mated Glomerular Filtration Rate [...] actual GFR. Performed By: #### 3 4528-0, 85158-2 #### [facility] CLIA [id number] [address] [place] Glucose [Mass/Vol] 167 mg/dL High 74-99 [facility] Comment on above: Order Comment: Speci men Type: BLOOD SPECIMEN Ordering Facility: [facility] Address: [address] [place] [address] Result Comment: The [place] [employer] (ADA) provides guidance for cutoff [...] Standards of Medical Care in Diabetes 2016, [place] [employer]. Diabetes Care. 2016.39(Suppl 1). Performed By: #### 3 4528-0, 62924-9 #### [facility] CLIA [id number] 1 [place] [address] [place] Potassium [Moles/Vol] 3.7 mmol/L Normal 3.7-5.1 [facility] Comment on above: Order Comment: Speci men Type: BLOOD SPECIMEN Ordering Facility: [facility] Address: [address] [place] [address] Performed By: #### 3 4528-0, 61520-2 #### [facility] CLIA [id number] [address] [place] Sodium [Moles/Vol] 137 mmol/L Normal 136-144 [facility] Comment on above: Order Comment: Speci men Type: BLOOD SPECIMEN Ordering Facility: [facility] Address: [address] [place] [address] Performed By: #### 3 4528-0, 76933-4 #### [facility] CLIA [id number] 1 [place] [address] [place] Urea nitrogen [Mass/Vol] 23 mg/dL Normal 9-24 [facility] Comment on above: Order Comment: Speci men Type: BLOOD SPECIMEN Ordering Facility: [facility] Address: [address] [place] [address] Performed By: #### 3 4528-0, 57585-9 #### [facility] CLIA [id number] [address] CBC panel Auto (Bld)on 03-20 Erythrocyte distribution width (RBC) [Ratio] 15.0 % Normal 11.5-15.0 [facility] Comment on above: Order Comment: Speci men Type: BLOOD SPECIMEN Ordering Facility: [facility] Address: [address] [place] [address] Performed By: #### 5 8410-2 #### [facility] CLIA [id number] [address] Hematocrit (Bld) [Volume fraction] 44.6 % Normal 39.0-51.0 [facility] Comment on above: Order Comment: Speci men Type: BLOOD SPECIMEN Ordering Facility: [facility] Address: [address] [place] [address] Performed By: #### 5 8410-2 #### [facility] CLIA [id number] [address] Hemoglobin (Bld) [Mass/Vol] 14.7 g/dL Normal 13.0-17.0 [facility] Comment on above: Order Comment: Speci men Type: BLOOD SPECIMEN Ordering Facility: [facility] Address: [address] [place] [address] Performed By: #### 5 8410-2 #### [facility] CLIA [id number] [address] MCH (RBC) [Entitic mass] 31.3 pg Normal 26.0-34.0 [facility] Comment on above: Order Comment: Speci men Type: BLOOD SPECIMEN Ordering Facility: [facility] Address: [address] [place] [address] Performed By: #### 5 8410-2 #### [facility] CLIA [id number] [address] STATES OF [facility] MCHC (RBC) [Mass/Vol] 33.0 g/dL Normal 30.5-36.0 [facility] Comment on above: Order Comment: Speci men Type: BLOOD SPECIMEN Ordering Facility: [facility] Address: [address] [place] [address] Performed By: #### 5 8410-2 #### [facility] CLIA [id number] [address] MCV (RBC) [Entitic vol] 95.1 fL Normal 80.0-100.0 [facility] Comment on above: Order Comment: Speci men Type: BLOOD SPECIMEN Ordering Facility: [facility] Address: [address] [place] [address] Performed By: #### 5 8410-2 #### [facility] CLIA [id number] [address] Nucleated RBC (Bld) [#/Vol] 10*3/uL Normal <0.01 [facility] Comment on above: Order Comment: Speci men Type: BLOOD SPECIMEN Ordering Facility: [facility] Address: [address] [place] [address] Performed By: #### 5 8410-2 #### [facility] CLIA [id number] [address] Platelet mean volume (Bld) [Entitic vol] 12.3 fL Normal 9.0-12.7 [facility] Comment on above: Order Comment: Speci men Type: BLOOD SPECIMEN Ordering Facility: [facility] Address: [address] [place] [address] Performed By: #### 5 8410-2 #### [facility] CLIA [id number] [address] Platelets (Bld) [#/Vol] 140 10*3/uL Low 150-400 [facility] Comment on above: Order Comment: Speci men Type: BLOOD SPECIMEN Ordering Facility: [facility] Address: [address] [place] [address] Performed By: #### 5 8410-2 #### [facility] CLIA [id number] [address] [place] RBC (Bld) [#/Vol] 4.69 10*6/uL Normal 4.20-6.00 [facility] Comment on above: Order Comment: Gideon ocampo Type: BLOOD SPECIMEN Ordering Facility: [facility] Address: [address] [place] [address] Performed By: #### 5 8410-2 #### [facility] CLIA [id number] [address] OF [facility] WBC (Bld) [#/Vol] 9.74 10*3/uL Normal 3.70-11.00 [facility] Comment on above: Order Comment: Gideon ocampo Type: BLOOD SPECIMEN Ordering Facility: [facility] Address: [place] [address] Performed By: #### 5 8410-2 #### [facility] CLIA [id number] [address] CONSULT PROGon 03-20-2023 CONSULT PROG HNO ID: [id number] Author: Toño Crowe PA-C Service: Neurosurgery Author Type: Physician Supervising Nurse Type: Consult Progress Note Filed: 03/20/2023 9:57 AM Note Text: Summary: NSGY signing off Neurosurgery Progress Note SERVICE DATE: [...] repeat CTH scan with NSGY [facility] at [facility] office. DC instructions placed. NSGY to sign [...] -- 03/17/23 2330 vte pharmacologic prophylaxis contraindicated (mo,oh) 03/17/23 2330 pneumatic compression stockings (mo,oh) 03/17/23 2330 activity - mobilize patient (mo,ct) Parts of this note may have been copied from one of my previous notes and remain pertinent. The documentation has been reviewed and edited as necessary to support the clinical decision making for today's visit. SIGNATURE: Toño Crowe PA-C PATIENT NAME: Mick Cottrell DATE: March 20, 2023 TIME: 6:40 AM Pager: [phone] Normal [facility] CT BRAIN WO IVCONon 03-20-20 CT BRAIN WO IVCON * * *Final Report* * * DATE OF EXAM: Mar 20 2023 7:17AM [facility] 0504 - CT BRAIN WO IVCON / [...] Iterative recon COMPARISON: CT head 03/18/2023 RESULT: Historical Site Guide (topogram) images: No additional findings. Post-operative change: [...] left supratentorial subdural hemorrhage. No new findings. 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: KENY Transcribe Date/Time: Mar 20 2023 8:32A Dictated by : REYNOLD WYNN MD This examination was interpreted and the report reviewed and electronically signed by: REYNOLD WYNN MD on Mar 20 2023 8:36AM EST [id number] Normal [facility] THERAPY NTon 03-20-2023 THERAPY NT HNO ID: [id number] Author: Génesis Mercado OTR/L Service: Occupational Therapy Author Type: Occupational Therapist Type: Therapy (PT/OT/Speech/Resp) Filed: 03/20/2023 11:18 AM Note Text: Occupational Therapy Evaluation SERVICE DATE: 03/20/2023 SERVICE TIME: 900 to 923 ROOM: [id number] Recommended Discharge Disposition: Subacute/SNF Recommended Discharge Disposition [...] (more content not included)... Normal [facility] Basic metabolic 2000 panelon 03-19-2023 Anion gap [Moles/Vol] 10 mmol/L Normal 9-18 [facility] Comment on above: Order Comment: Speci men Type: BLOOD SPECIMEN Ordering Facility: [facility] Address: [address] [place] [address] Performed By: #### 5 8410-2 #### [facility] CLIA [id number] [address] [place] [address] [place] Calcium [Mass/Vol] 9.1 mg/dL Normal 8.5-10.2 [facility] Comment on above: Order Comment: Speci men Type: BLOOD SPECIMEN Ordering Facility: [facility] Address: [address] [place] [address] Performed By: #### 5 8410-2 #### [facility] CLIA [id number] 1 [place] [address] [place] Chloride [Moles/Vol] 103 mmol/L Normal 97-105 [facility] Comment on above: Order Comment: Speci men Type: BLOOD SPECIMEN Ordering Facility: [facility] Address: [address] [place] [address] Performed By: #### 5 8410-2 #### [facility] CLIA [id number] 1 [place] [address] [place] CO2 [Moles/Vol] 25 mmol/L Normal 22-30 [facility] Comment on above: Order Comment: Speci men Type: BLOOD SPECIMEN Ordering Facility: [facility] Address: [address] [place] [address] Performed By: #### 5 8410-2 #### [facility] CLIA [id number] 1 [place] [address] [place] Creatinine [Mass/Vol] 0.96 mg/dL Normal 0.73-1.22 [facility] Comment on above: Order Comment: Speci men Type: BLOOD SPECIMEN Ordering Facility: [facility] Address: [address] [place] [address] Performed By: #### 5 8410-2 #### [facility] CLIA [id number] [address] STATES OF [facility] Creatinine and Glomerular filtration rate.predicted panel (S/P/Bld) 79 mL/min/1.73m??? Normal >=60 [facility] Comment on above: Order Comment: Speci men Type: BLOOD SPECIMEN Ordering Facility: [facility] Address: [address] [place] [address] Result Comment: Vivienne mated Glomerular Filtration Rate [...] Performed By: #### 5 8410-2 #### [facility] CLIA [id number] 1 [place] [address] [place] Glucose [Mass/Vol] 149 mg/dL High 74-99 [facility] Comment on above: Order Comment: [facility] Type: BLOOD SPECIMEN Ordering Facility: [facility] Address: [address] [place] [address] Result Comment: The [place] [employer] (ADA) provides guidance for cutoff [...] Standards of Medical Care in Diabetes 2016, [place] [employer]. Diabetes Care. 2016.39(Suppl 1). Performed By: #### 5 8410-2 #### [facility] CLIA [id number] [address] [place] OF [facility] Potassium [Moles/Vol] 3.5 mmol/L Low 3.7-5.1 [facility] Comment on above: Order Comment: Speci men Type: BLOOD SPECIMEN Ordering Facility: [facility] Address: [address] [place] [address] Performed By: #### 5 8410-2 #### [facility] CLIA [id number] [address] STATES [facility] Sodium [Moles/Vol] 138 mmol/L Normal 136-144 [facility] Comment on above: Order Comment: Chasei men Type: BLOOD SPECIMEN Ordering Facility: [facility] Address: [address] [place] [address] Performed By: #### 5 8410-2 #### [facility] CLIA [id number] [address] Urea nitrogen [Mass/Vol] 18 mg/dL Normal 9-24 [facility] Comment on above: Order Comment: Speci men Type: BLOOD SPECIMEN Ordering Facility: [facility] Address: [address] [place] [address] Performed By: #### 5 8410-2 #### [facility] CLIA [id number] [address] [place] CBC panel Auto (Bld)on 03-19 Erythrocyte distribution width (RBC) [Ratio] 15.1 % High 11.5-15.0 [facility] Comment on above: Order Comment: Speci men Type: BLOOD SPECIMEN Ordering Facility: [facility] Address: [address] [place] [address] Performed By: #### 3 4528-0, 29469-6 #### [facility] CLIA [id number] [address] OF [facility] Hematocrit (Bld) [Volume fraction] 41.1 % Normal 39.0-51.0 [facility] Comment on above: Order Comment: Speci men Type: BLOOD SPECIMEN Ordering Facility: [facility] Address: [address] [place] [address] Performed By: #### 3 4528-0, 05921-7 #### [facility] CLIA [id number] [address] [place] Hemoglobin (Bld) [Mass/Vol] 13.7 g/dL Normal 13.0-17.0 [facility] Comment on above: Order Comment: Speci men Type: BLOOD SPECIMEN Ordering Facility: [facility] Address: [address] [place] [address] Performed By: #### 3 4528-0, 33672-9 #### [facility] CLIA [id number] [address] [place] MCH (RBC) [Entitic mass] 32.1 pg Normal 26.0-34.0 [facility] Comment on above: Order Comment: Speci men Type: BLOOD SPECIMEN Ordering Facility: [facility] Address: [address] [place] [address] Performed By: #### 3 4528-0, 80061-2 #### [facility] CLIA [id number] [address] [place] MCHC (RBC) [Mass/Vol] 33.3 g/dL Normal 30.5-36.0 [facility] Comment on above: Order Comment: Speci men Type: BLOOD SPECIMEN Ordering Facility: [facility] Address: [address] [place] [address] Performed By: #### 3 4528-0, 25918-7 #### [facility] CLIA [id number] [address] OF [facility] MCV (RBC) [Entitic vol] 96.3 fL Normal 80.0-100.0 [facility] Comment on above: Order Comment: Speci men Type: BLOOD SPECIMEN Ordering Facility: [facility] Address: [address] [place] [address] Performed By: #### 3 4528-0, 94244-6 #### [facility] CLIA [id number] [address] OF [facility] Nucleated RBC (Bld) [#/Vol] 10*3/uL Normal <0.01 [facility] Comment on above: Order Comment: Speci men Type: BLOOD SPECIMEN Ordering Facility: [facility] Address: [address] [place] [address] Performed By: #### 3 4528-0, 72130-9 #### [facility] CLIA [id number] [address] Platelet mean volume (Bld) [Entitic vol] 11.3 fL Normal 9.0-12.7 [facility] Comment on above: Order Comment: Speci men Type: BLOOD SPECIMEN Ordering Facility: [facility] Address: [address] [place] [address] Performed By: #### 3 4528-0, 40656-4 #### [facility] CLIA [id number] [address] Platelets (Bld) [#/Vol] 121 10*3/uL Low 150-400 [facility] Comment on above: Order Comment: Speci men Type: BLOOD SPECIMEN Ordering Facility: [facility] Address: [address] [place] [address] Result Comment: No c lot detected. Performed By: #### 3 4528-0, 10848-6 #### [facility] CLIA [id number] [address] [place] RBC (Bld) [#/Vol] 4.27 10*6/uL Normal 4.20-6.00 [facility] Comment on above: Order Comment: Gideon ocampo Type: BLOOD SPECIMEN Ordering Facility: [facility] Address: [address] [place] [address] Performed By: #### 3 4528-0, 96257-5 #### [facility] CLIA [id number] [address] WBC (Bld) [#/Vol] 9.55 10*3/uL Normal 3.70-11.00 [facility] Comment on above: Order Comment: Gideon ocampo Type: BLOOD SPECIMEN Ordering Facility: [facility] Address: [address] [id number] Performed By: #### 3 4528-0, 85829-2 #### [facility] CLIA [id number] [address] CONSULTon 03-19-2023 CONSULT HNO ID: [id number] Author: Sonido Washington MD Service: Clinical Cardiology [...] on Coumadin " Per patient's outside hospital steel molder's note (Juan Wilson MD from [facility]) from July 13, 2022 patient "PMHx [...] (more content not included)... Normal [facility] THERAPY NTon 03-19-2023 THERAPY NT HNO ID: [id number] Author: Jacki Arroyo, PT Service: Physical Therapy Author Type: Physical Therapist Type: Therapy (PT/OT/Speech/Resp) Filed: 03/19/2023 4:13 PM Note Text: Physical Therapy Evaluation SERVICE DATE: 03/19/2023 SERVICE TIME: 1536 to 1604 ROOM: [id number] Recommended Discharge Disposition: Subacute/SNF Recommended Discharge Disposition [...] intervals Stairs Curb Step Car Transfer Blank hgaan indicate activity not attempted General Deviations/Observatio ns: [...] able to maintain balance while turning head/trunk -HLM: 7: Walk 25 feet or more Learning/Educational [...] (more content not included)... Normal [facility] 25(OH)D3 [facility] 2022 25-hydroxyvitamin D3 [Mass/Vol] 39.3 ng/mL Normal >=30.0 [facility] Comment on above: Order Comment: Speci men Type: BLOOD SPECIMEN Ordering Facility: [facility] Address: [address] [place] [address] Result Comment: Clas sification of 25 [place] Vitamin D status: Deficiency: <= 20.0 ng/ml. Insufficiency: 21.0-29.0 ng/ml. Sufficiency: >= 30.0 ng/ml. Performed By: #### 5 8410-2 #### [facility] CLIA [id number] [address] [place] ALLIED HEALTHon 03-18-2023 ALLIED HEALTH HNO ID: [id number] Author: Faustina Valdez RT(R) Service: ? Author [...] Inpatient: see LDA documentation SIGNED BY: RT Miguelina(R) March 18, 2023 4:25 PM Normal [facility] Basic metabolic 2000 panelon 03-18-2023 Anion gap [Moles/Vol] 9 mmol/L Normal 9-18 [facility] Comment on above: Order Comment: Speci terrence Type: BLOOD SPECIMEN Ordering Facility: [facility] Address: [address] [place] [address] Performed By: #### 3 4528-0, 72372-6 #### [facility] CLIA [id number] 1 [place] [address] [place] Calcium [Mass/Vol] 8.8 mg/dL Normal 8.5-10.2 [facility] Comment on above: Order Comment: Chasei terrence Type: BLOOD SPECIMEN Ordering Facility: [facility] Address: [address] [place] [address] Performed By: #### 3 4528-0, 51546-6 #### [facility] CLIA [id number] 1 [place] [address] [place] Chloride [Moles/Vol] 102 mmol/L Normal 97-105 [facility] Comment on above: Order Comment: Chasei men Type: BLOOD SPECIMEN Ordering Facility: [facility] Address: [address] [place] [address] Performed By: #### 3 4528-0, 73704-6 #### [facility] CLIA [id number] [address] [place] CO2 [Moles/Vol] 26 mmol/L Normal 22-30 [facility] Comment on above: Order Comment: Speci men Type: BLOOD SPECIMEN Ordering Facility: [facility] Address: [address] [place] [address] Performed By: #### 3 4528-0, 38295-1 #### [facility] CLIA [id number] [address] [place] Creatinine [Mass/Vol] 0.92 mg/dL Normal 0.73-1.22 [facility] Comment on above: Order Comment: Speci men Type: BLOOD SPECIMEN Ordering Facility: [facility] Address: [address] [place] [address] Performed By: #### 3 4528-0, 16409-8 #### [facility] CLIA [id number] [address] Creatinine and Glomerular filtration rate.predicted panel (S/P/Bld) 83 mL/min/1.73m??? Normal >=60 [facility] Comment on above: Order Comment: Speci men Type: BLOOD SPECIMEN Ordering Facility: [facility] Address: [address] [place] [address] Result Comment: Vivienne mated Glomerular Filtration Rate [...] actual GFR. Performed By: #### 3 4528-0, 11499-6 #### [facility] CLIA [id number] [address] [place] Glucose [Mass/Vol] 210 mg/dL High 74-99 [facility] Comment on above: Order Comment: Speci men Type: BLOOD SPECIMEN Ordering Facility: [facility] Address: [address] [place] [address] Result Comment: The [place] Diabetes Association (ADA) provides guidance for cutoff [...] Standards of Medical Care in Diabetes 2016, [place] [employer]. Diabetes Care. 2016.39(Suppl 1). Performed By: #### 3 4528-0, 90626-4 #### [employer] CLIA [id number] [address] [place] Potassium [Moles/Vol] 3.7 mmol/L Normal 3.7-5.1 [facility] Comment on above: Order Comment: Gideon ocampo Type: BLOOD SPECIMEN Ordering Facility: [facility] Address: [address] [place] [address] Performed By: #### 3 4528-0, 19821-4 #### [facility] CLIA [id number] [address] STATES OF [facility] Sodium [Moles/Vol] 137 mmol/L Normal 136-144 [facility] Comment on above: Order Comment: Gideon ocampo Type: BLOOD SPECIMEN Ordering Facility: [facility] Address: [address] [place] [address] Performed By: #### 3 4528-0, 51512-4 #### [facility] CLIA [id number] 1 [place] [address] [place] Urea nitrogen [Mass/Vol] 17 mg/dL Normal 9-24 [facility] Comment on above: Order Comment: Gideon ocampo Type: BLOOD SPECIMEN Ordering Facility: [facility] Address: [address] [place] [address] Performed By: #### 3 4528-0, 65008-3 #### [facility] CLIA [id number] [address] [place] CBC panel Auto (Bld)on 03-18 Erythrocyte distribution width (RBC) [Ratio] 14.6 % Normal 11.5-15.0 [facility] Comment on above: Order Comment: Speci men Type: BLOOD SPECIMEN Ordering Facility: [facility] Address: [address] [place] [address] Performed By: #### 5 8410-2 #### [facility] CLIA [id number] [address] Hematocrit (Bld) [Volume fraction] 39.6 % Normal 39.0-51.0 [facility] Comment on above: Order Comment: Speci men Type: BLOOD SPECIMEN Ordering Facility: [facility] Address: [address] [place] [address] Performed By: #### 5 8410-2 #### [facility] CLIA [id number] [address] Hemoglobin (Bld) [Mass/Vol] 13.3 g/dL Normal 13.0-17.0 [facility] Comment on above: Order Comment: Speci men Type: BLOOD SPECIMEN Ordering Facility: [facility] Address: [address] [place] [address] Performed By: #### 5 8410-2 #### [facility] CLIA [id number] [address] STATES [facility] MCH (RBC) [Entitic mass] 31.9 pg Normal 26.0-34.0 [facility] Comment on above: Order Comment: Speci men Type: BLOOD SPECIMEN Ordering Facility: [facility] Address: [address] [place] [address] Performed By: #### 5 8410-2 #### [facility] CLIA [id number] [address] MCHC (RBC) [Mass/Vol] 33.6 g/dL Normal 30.5-36.0 [facility] Comment on above: Order Comment: Speci men Type: BLOOD SPECIMEN Ordering Facility: [facility] Address: [address] [place] [address] Performed By: #### 5 8410-2 #### [facility] CLIA [id number] [address] MCV (RBC) [Entitic vol] 95.0 fL Normal 80.0-100.0 [facility] Comment on above: Order Comment: Speci men Type: BLOOD SPECIMEN Ordering Facility: [facility] Address: [address] [place] [address] Performed By: #### 5 8410-2 #### [facility] CLIA [id number] [address] Nucleated RBC (Bld) [#/Vol] 10*3/uL Normal <0.01 [facility] Comment on above: Order Comment: Speci men Type: BLOOD SPECIMEN Ordering Facility: [facility] Address: [address] [place] [address] Performed By: #### 5 8410-2 #### [facility] CLIA [id number] [address] Platelet mean volume (Bld) [Entitic vol] 11.8 fL Normal 9.0-12.7 [facility] Comment on above: Order Comment: Speci men Type: BLOOD SPECIMEN Ordering Facility: [facility] Address: [address] [place] [address] Performed By: #### 5 8410-2 #### [facility] CLIA [id number] [address] Platelets (Bld) [#/Vol] 122 10*3/uL Low 150-400 [facility] Comment on above: Order Comment: Speci men Type: BLOOD SPECIMEN Ordering Facility: [facility] Address: [address] [place] [address] Result Comment: No c lot detected. Performed By: #### 5 8410-2 #### [facility] CLIA [id number] [address] OF [facility] RBC (Bld) [#/Vol] 4.17 10*6/uL Low 4.20-6.00 [facility] Comment on above: Order Comment: Speci men Type: BLOOD SPECIMEN Ordering Facility: [facility] Address: [address] [place] [address] Performed By: #### 5 8410-2 #### [facility] CLIA [id number] [address] OF [facility] WBC (Bld) [#/Vol] 10.98 10*3/uL Normal 3.70-11.00 [facility] Comment on above: Order Comment: Speci men Type: BLOOD SPECIMEN Ordering Facility: [facility] Address: [address] [place] [address] Performed By: #### 5 8410-2 #### [facility] CLIA [id number] [address] Erythrocyte distribution width (RBC) [Ratio] 14.6 % Normal 11.5-15.0 [facility] Comment on above: Order Comment: Speci men Type: BLOOD SPECIMEN Ordering Facility: [facility] Address: [address] [place] [address] Performed By: #### 5 8410-2 #### [facility] CLIA [id number] [address] Hematocrit (Bld) [Volume fraction] 43.3 % Normal 39.0-51.0 [facility] Comment on above: Order Comment: Speci men Type: BLOOD SPECIMEN Ordering Facility: [facility] Address: [address] [place] [address] Performed By: #### 5 8410-2 #### [facility] CLIA [id number] [address] Hemoglobin (Bld) [Mass/Vol] 14.6 g/dL Normal 13.0-17.0 [facility] Comment on above: Order Comment: Speci men Type: BLOOD SPECIMEN Ordering Facility: [facility] Address: [address] [place] [address] Performed By: #### 5 8410-2 #### [facility] CLIA [id number] [address] MCH (RBC) [Entitic mass] 31.8 pg Normal 26.0-34.0 [facility] Comment on above: Order Comment: Speci men Type: BLOOD SPECIMEN Ordering Facility: [facility] Address: [address] [place] [address] Performed By: #### 5 8410-2 #### [facility] CLIA [id number] [address] MCHC (RBC) [Mass/Vol] 33.7 g/dL Normal 30.5-36.0 [facility] Comment on above: Order Comment: Speci men Type: BLOOD SPECIMEN Ordering Facility: [facility] Address: [address] [place] [address] Performed By: #### 5 8410-2 #### [facility] CLIA [id number] [address] MCV (RBC) [Entitic vol] 94.3 fL Normal 80.0-100.0 [facility] Comment on above: Order Comment: Speci men Type: BLOOD SPECIMEN Ordering Facility: [facility] Address: [address] [place] [address] Performed By: #### 5 8410-2 #### [facility] CLIA [id number] [address] Nucleated RBC (Bld) [#/Vol] 10*3/uL Normal <0.01 [facility] Comment on above: Order Comment: Speci men Type: BLOOD SPECIMEN Ordering Facility: [facility] Address: [address] [place] [address] Performed By: #### 5 8410-2 #### [facility] CLIA [id number] [address] Platelet mean volume (Bld) [Entitic vol] 11.5 fL Normal 9.0-12.7 [facility] Comment on above: Order Comment: Speci men Type: BLOOD SPECIMEN Ordering Facility: [facility] Address: [address] [place] [address] Performed By: #### 5 8410-2 #### [facility] CLIA [id number] [address] [place] Platelets (Bld) [#/Vol] 124 10*3/uL Low 150-400 [facility] Comment on above: Order Comment: Speci men Type: BLOOD SPECIMEN Ordering Facility: [facility] Address: [address] [place] [address] Result Comment: No c lot detected. Performed By: #### 5 8410-2 #### [facility] CLIA [id number] [address] [place] RBC (Bld) [#/Vol] 4.59 10*6/uL Normal 4.20-6.00 [facility] Comment on above: Order Comment: Speci men Type: BLOOD SPECIMEN Ordering Facility: [facility] Address: [address] [place] [address] Performed By: #### 5 8410-2 #### [facility] CLIA [id number] [address] WBC (Bld) [#/Vol] 11.94 10*3/uL High 3.70-11.00 [facility] Comment on above: Order Comment: Speci men Type: BLOOD SPECIMEN Ordering Facility: [facility] Address: [address] [place] [address] Performed By: #### 5 8410-2 #### [facility] CLIA [id number] [address] CONFIRM BLOOD TYPEon 023 ABO O Normal [facility] Comment on above: Order Comment: Speci men Type: BLOOD SPECIMENOrdering Facility: [facility] Address: [address] [place] [address] Performed By: #### C ONABO ####[facility] [id number] [address] OF [facility] Rh Nom (Bld) Positive Normal [facility] Comment on above: Order Comment: Speci men Type: BLOOD SPECIMENOrdering Facility: [facility] Address: [address] [place] [address] [place] [address] Performed By: #### C ONABO ####[facility] [id number] [place] [id number] [facility] [place] CONSULTon 03-18-2023 CONSULT HNO ID: [id number] Author: Aiden Lubin MD Service: General Surgery [...] a bruised hand. He was seen at [facility] and transferred here. He lives at home [...] head CT performed earlier the same day. 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: KENY Transcribe Date/Time: Mar 17 2023 11:42P Dictated by : JAIME VERGARA MD This examination was interpreted and the report reviewed and electronically signed by: JAIME VERGARA MD on Mar 17 2023 11:48PM EST XR PELVIS 1V AP Final Result IMPRESSION: Evaluation partially limited due to positioning. No acute fracture identified 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: PSCB Transcribe Date/Time: Mar 17 2023 10:54P [...] (more content not included)... Normal [facility] CONSULT HNO ID: [id number] Author: Lina Hsieh APRN.SPORTS MANAGEMENT INTERN Service: Neurosurgery Author Type: Nurse Practitioner Type: [...] patient's house to pick patient up for [place] gathering and patient was still in bed [...] been discontinued here. He was transferred to [facility] for further evaluation. Patient is currently [...] iv flush bag 20 mL INTRAVENOUS PRN Buck, Justa, DO NaCl 0.9% iv infusion 100 mL/hr INTRAVENOUS CONTINUOUS [facility], Justa, DO 100 mL/hr at 03/18/23 0025 100 mL/hr at 03/18/23 0025 ondansetron 4 mg tab(s) (ZOFRAN) 4 mg ORAL q 6 H PRN [facility], Justa, DO Or ondansetron (PF) 4 mg injection (ZOFRAN) 4 mg INTRAVENOUS q 6 H PRN [facility], Justa, DO acetaminophen 1,000 mg tab(s) (TYLENOL) 1,000 mg ORAL/FEEDING TUBE q 6 H [facility], Justa, DO 1,000 mg at 03/18/23 002 oxyCODONE IR 5 mg tab(s) (ROXICODONE) 5 mg ORAL/FEEDING TUBE q 6 H PRN [facility], Justa, DO atorvastatin 40 mg tab(s) (LIPITOR) 40 mg ORAL AT BEDTIME [facility], Justa, DO montelukast 10 mg tab(s) (SINGULAIR) 10 mg ORAL AT BEDTIME [facility], Justa, DO finasteride 5 mg tab(s) (PROSCAR) 5 mg ORAL DAILY [facility], Justa, DO senna-docusate 8.6-50 mg 1 tablet (SENNA-S) 1 tablet ORAL BID [facility], Justa, DO 1 tablet at 03/18/23 0025 potassium chloride iv piggyback 20 mEq/100 mL 20 mEq INTRAVENOUS q 1 H [facility], Justa, DO 75 mL/hr at 03/18/23 0041 20 mEq at 03/18/23 0041 dextrose 15 gram/32 mL 15 g (TRUEPLUS) 15 g ORAL PRN [facility], Justa, DO Or glucagon 1 mg injection 1 mg INTRAMUSCULAR PRN [facility], Justa, DO Or dextrose 10% iv bolus 12.5 g INTRAVENOUS PRN [facility], Justa, DO insulin lispro 0-15 Units injection (rapid acting) (ADMElog) 0-15 Units SUBCUTANEOUS q 6 H Justa Jane DO 3 Units at 03/18/23 0038 levETIRAcetam 500 mg tab(s) (KEPPRA) 500 mg ORAL BID Lina Hsieh, PLATE FITTER.SPORTS MANAGEMENT INTERN 500 mg at 03/18/23 0025 COMPLETE REVIEW [...] (more content not included)... Normal [facility] CONSULT HNO ID: [id number] Author: Shiv Coffman MD Service: Orthopaedic Surgery [...] male with PMH listed below presented to [facility] ED as a transfer from [facility] after being seen initially for multiple [...] Coffman MD Orthopaedic Surgery 03/18/2023 6:53 AM Normal [facility] CT BRAIN WO IVCONon 03-18-[address] BRAIN WO IVCON * * *Final Report* * * DATE OF EXAM: Mar 18 2023 4:24PM [facility] 0504 - CT BRAIN WO IVCON / [...] base and imaged soft tissues are unremarkable. Historical Site Guide (topogram) images: No additional findings. IMPRESSION: Left subdural hematoma overlying the temporal lobe and extending along the left tentorium and left side of the falx, unchanged. No new areas of hemorrhage. _ 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: PSCB Transcribe Date/Time: Mar 18 2023 5:33P Dictated by : MICK MARTIN MD This examination was interpreted and the report reviewed and electronically signed by: MICK MARTIN MD on Mar 18 2023 5:35PM EST [id number] N Normal [facility] CT BRAIN WO IVCON * * *Final Report* * * DATE OF EXAM: Mar 17 2023 11:39PM [facility] 0504 - CT BRAIN WO IVCON / [...] head CT performed earlier the same day. 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 Transcribe Date/Time: Mar 17 2023 11:42P Dictated by : JAIME VERGARA MD This examination was interpreted and the report reviewed and electronically signed by: JAIME VERGARA MD on Mar 17 2023 11:48PM EST [id number] N Normal [facility] Comprehensive metabolic 2000 panelon 03-18-2023 Albumin [Mass/Vol] 4.1 g/dL Normal 3.9-4.9 [facility] Comment on above: Order Comment: Gideon ocampo Type: BLOOD SPECIMEN Ordering Facility: [facility] Address: [address] [place] [address] Performed By: #### 5 8410-2 #### [facility] CLIA [id number] [address] [place] [address] [place] ALP [Catalytic activity/Vol] 129 U/L High 38-113 [facility] Comment on above: Order Comment: Gideon ocampo Type: BLOOD SPECIMEN Ordering Facility: [facility] Address: [address] [place] [address] Performed By: #### 5 8410-2 #### [facility] CLIA [id number] [address] [place] ALT With P-5'-P [Catalytic activity/Vol] 19 U/L Normal 10-54 [facility] Comment on above: Order Comment: Speci men Type: BLOOD SPECIMEN Ordering Facility: [facility] Address: [address] [place] [address] Performed By: #### 5 8410-2 #### [facility] CLIA [id number] [address] [place] [address] [place] Anion gap [Moles/Vol] 12 mmol/L Normal 9-18 [facility] Comment on above: Order Comment: Speci men Type: BLOOD SPECIMEN Ordering Facility: [facility] Address: [address] [place] [address] Performed By: #### 5 8410-2 #### [facility] CLIA [id number] [address] [place] AST With P-5'-P [Catalytic activity/Vol] 20 U/L Normal 14-40 [facility] Comment on above: Order Comment: Speci men Type: BLOOD SPECIMEN Ordering Facility: [facility] Address: [address] [place] [address] Performed By: #### 5 8410-2 #### [facility] CLIA [id number] [address] [place] Bilirubin [Mass/Vol] 0.9 mg/dL Normal 0.2-1.3 [facility] Comment on above: Order Comment: Speci men Type: BLOOD SPECIMEN Ordering Facility: [facility] Address: [address] [place] [address] Performed By: #### 5 8410-2 #### [facility] CLIA [id number] [address] [place] Calcium [Mass/Vol] 9.1 mg/dL Normal 8.5-10.2 [facility] Comment on above: Order Comment: Speci men Type: BLOOD SPECIMEN Ordering Facility: [facility] Address: [address] [place] [address] Performed By: #### 5 8410-2 #### [facility] CLIA [id number] [address] [place] Chloride [Moles/Vol] 99 mmol/L Normal 97-105 [facility] Comment on above: Order Comment: Speci men Type: BLOOD SPECIMEN Ordering Facility: [facility] Address: [address] [place] [address] Performed By: #### 5 8410-2 #### [facility] CLIA [id number] [address] OF [facility] CO2 [Moles/Vol] 27 mmol/L Normal 22-30 [facility] Comment on above: Order Comment: Speci men Type: BLOOD SPECIMEN Ordering Facility: [facility] Address: [address] [place] [address] Performed By: #### 5 8410-2 #### [facility] CLIA [id number] [address] OF [facility] Creatinine [Mass/Vol] 1.14 mg/dL Normal 0.73-1.22 [facility] Comment on above: Order Comment: Speci men Type: BLOOD SPECIMEN Ordering Facility: [facility] Address: [address] [place] [address] Performed By: #### 5 8410-2 #### [facility] CLIA [id number] [address] Creatinine and Glomerular filtration rate.predicted panel (S/P/Bld) 64 mL/min/1.73m??? Normal >=60 [facility] Comment on above: Order Comment: Speci men Type: BLOOD SPECIMEN Ordering Facility: [facility] Address: [address] [place] [address] Result Comment: Vivienne mated Glomerular Filtration Rate [...] GFR. Performed By: #### 5 8410-2 #### [facility] CLIA [id number] [address] [place] [address] [place] Glucose [Mass/Vol] 217 mg/dL High 74-99 [facility] Comment on above: Order Comment: Gideon terrence Type: BLOOD SPECIMEN Ordering Facility: [facility] Address: [address] [place] [address] Result Comment: The [place] [employer] (ADA) provides guidance for cutoff [...] Standards of Medical Care in Diabetes 2016, [place] [employer]. Diabetes Care. 2016.39(Suppl 1). Performed By: #### 5 8410-2 #### [facility] CLIA [id number] [address] [place] [address] [place] Potassium [Moles/Vol] 3.4 mmol/L Low 3.7-5.1 [facility] Comment on above: Order Comment: Gideon ocampo Type: BLOOD SPECIMEN Ordering Facility: [facility] Address: [address] [place] [address] Performed By: #### 5 8410-2 #### [facility] CLIA [id number] [address] [place] [address] [place] Protein [Mass/Vol] 6.2 g/dL Low 6.3-8.0 [facility] Comment on above: Order Comment: Gideon terrence Type: BLOOD SPECIMEN Ordering Facility: [facility] Address: [address] [place], [place] [address] Performed By: #### 5 8410-2 #### [facility] CLIA [id number] [address] [place] [address] [place] Sodium [Moles/Vol] 138 mmol/L Normal 136-144 [facility] Comment on above: Order Comment: Speci men Type: BLOOD SPECIMEN Ordering Facility: [facility] Address: [address] [place] [address] Performed By: #### 5 8410-2 #### [facility] CLIA [id number] [address] Urea nitrogen [Mass/Vol] 21 mg/dL Normal 9-24 [facility] Comment on above: Order Comment: Speci men Type: BLOOD SPECIMEN Ordering Facility: [facility] Address: [address] [place] [address] Performed By: #### 5 8410-2 #### [facility] CLIA [id number] [address] ED NOTEon 03-18-2023 ED NOTE HNO ID: [id number] Author: Génesis Solano, FIDELINA Service: Family Practice Author Type: Registered Nurse Type: ED Notes Filed: 03/17/2023 10:14 PM Note Text: Neuro resident @ bedside. Normal [facility] ED PROV NOTEon 03-18-2023 ED PROV NOTE HNO ID: [id number] Author: Almas Ragland DO Service: Emergency Medicine Author Type: Physician Type: ED Provider Notes Filed: 03/23/2023 1:40 PM Note Text: ED Provider Note Patient Name: Mick Cottrell : 1940 SERVICE DATE: 03/17/23 History Patient presents with: Fall: Pt sent from [facility] for fall on Saturday. Found by family with AMS. +Temporal SDH +Alert on arrival -oriented x1 +expressive asphasia NIH 3 Patient is an 82-year-old male with no relevant past medical history who presents to the ED today as a transfer from [facility] for evaluation by trauma surgery and neurosurgery. Patient had a fall on Saturday, initially had no complaints but was thought to be confused today so was brought to [facility]. He was found to have a [...] laboratory APTT reagent in use throughout the [facility]. STAPH AUREUS PCR VITAMIN D 25 HYDROXY TOX SCREEN ROUT UR TYPE + SCREEN CONFIRM BLOOD TYPE Procedures ED Course / Clinical Impression Clinical Impressions as of 03/17/23 2352 Subdural hematoma (HCC) MDM / Disposition / Plan This patient is a 89-year-old male who presents (more content not included)... Normal [facility] Ethanol [facility] -25-2 023 Ethanol [Mass/Vol] mg/dL Normal <11 [facility] Comment on above: Order Comment: Speci men Type: BLOOD SPECIMEN Ordering Facility: [facility] Address: [address] [place] [address] Performed By: #### 5 8410-2 #### [facility] CLIA [id number] 1 [place] [address] [place] HISTORY PHYSICALon 3 HISTORY PHYSICAL HNO ID: [id number] Author: Penny Cordova MD Service: General Surgery [...] a bruised hand. He was seen at [facility] and transferred here. He lives at home [...] head CT performed earlier the same day. 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: KENY Transcribe Date/Time: Mar 17 2023 11:42P Dictated by : JAIME VERGARA MD This examination was interpreted and the report reviewed and electronically signed by: JAIME VERGARA MD on Mar 17 2023 11:48PM EST XR PELVIS 1V AP Final Result IMPRESSION: Evaluation partially limited due to positioning. No acute fracture identified 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: PSCB Transcribe Date/Time: Mar 17 2023 10:54P [...] (more content not included)... Normal [facility] Lipase SerPl-cCncon 03-18-20 23 Lipase [Catalytic activity/Vol] 15 U/L Low 16-61 [facility] Comment on above: Order Comment: Speci men Type: BLOOD SPECIMEN Ordering Facility: [facility] Address: [address] [place] [address] Performed By: #### 5 8410-2 #### [facility] CLIA [id number] [address] OF [facility] NURSING PROGon 03-18-2023 NURSING PROG HNO ID: [id number] Author: Kylee Seaman RN Service: Nursing Author Type: Registered Nurse Type: Nursing Progress Note Filed: 03/18/2023 6:32 PM Note Text: Pt transferred from 4801 to 9112. Report called to FIDELINA Conner. Alvarado Gomez notified of transfer. Belongings sent with pt Normal [facility] PT panel Coag (PPP)on 2022 INR Coag (PPP) [Relative time] 1.1 {INR} Normal 0.9-1.3 [facility] Comment on above: Order Comment: Speci men Type: BLOOD SPECIMEN Ordering Facility: [facility] Address: [address] [place] [address] Result Comment: Sherri min K Antagonist (VKA) Therapeutic Range: INR 2 to 3 (Target INR of 2.5) Note: For patients treated with VKA drugs, such as warfarin, the [place] [employer] 2012 Guideline recommends [...] 2012, 141:7S-47S Miguel Angel RA, et al. [facility] 2017, 70: 252-289 Performed By: #### 3 4528-0, 17869-4 #### [facility] CLIA [id number] 1 [place] [address] [place] PT Coag (PPP) [Time] 11.8 s Normal 9.7-13.0 [facility] Comment on above: Order Comment: Specganesh ocampo Type: BLOOD SPECIMEN Ordering Facility: [facility] Address: [address] [place] [address] Performed By: #### 3 4528-0, 59896-8 #### [facility] CLIA [id number] [address] [place] [address] [place] STAPH AUREUS PCRon 3 S. aureus and MRSA panel JONG+probe (Nose) Abnormal Negative [facility] Comment on above: Order Comment: Gideon ocampo Type: BLOOD SPECIMEN Ordering Facility: [facility] Address: [address] [place] [address] Result Comment: Posi tive for Staphylococcus aureus by PCR. Negative for MRSA by PCR Performed By: #### 3 4528-0, 66759-9 #### [id number] [address] [place] THERAPY NTon 03-18-2023 THERAPY NT HNO ID: [id number] Author: Kacie Reyna CCC-MEDICAL VOUCHER CLERK Service: Speech/Swallow Author Type: Speech Language Pathologist Type: Therapy (PT/OT/Speech/Resp) Filed: 03/18/2023 12:06 PM Note Text: Speech Therapy Clinical Swallow Evaluation SERVICE DATE: 03/18/2023 SERVICE TIME: 924 ROOM: [place] [address] IMPRESSION: Swallow Deficits Identified / Suspected: Oropharyngeal [...] Aphasia, Fatigue, Multiple medical concerns Continue skilled MEDICAL VOUCHER CLERK services due to : Dysphagia Speech Therapy [...] (more content not included)... Normal [facility] TOX SCREEN ROUT URon 023 Amphetamines Confirm (U) [Mass/Vol] Negative Normal Negative [facility] Comment on above: Order Comment: Speci men Type: BLOOD SPECIMEN Ordering Facility: [facility] Address: [address] [place] [address] Result Comment: Cuto ff threshold at 1000 ng/mL. Performed By: #### 5 8410-2 #### [facility] CLIA [id number] [address] BARBITURATES, URINE Negative Normal Negative [facility] Comment on above: Order Comment: Speci men Type: BLOOD SPECIMEN Ordering Facility: [facility] Address: [address] [place] [address] Result Comment: Cuto ff threshold at 200 ng/mL. Performed By: #### 5 8410-2 #### [facility] CLIA [id number] [address] [place] BENZODIAZEPINES, UR Negative Normal Negative [facility] Comment on above: Order Comment: Speci men Type: BLOOD SPECIMEN Ordering Facility: [facility] Address: [address] [place] [address] Result Comment: Cuto ff threshold at 200 ng/mL. Performed By: #### 5 8410-2 #### [facility] CLIA [id number] [address] OF [facility] Cannabinoids Screen Ql (U) Negative Normal Negative [facility] Comment on above: Order Comment: Speci men Type: BLOOD SPECIMEN Ordering Facility: [facility] Address: [address] [place] [address] Result Comment: Cuto ff threshold at 50 ng/mL. Performed By: #### 5 8410-2 #### [facility] CLIA [id number] [address] [place] Cocaine Ql (U) Negative Normal Negative [facility] Comment on above: Order Comment: Speci men Type: BLOOD SPECIMEN Ordering Facility: [facility] Address: [address] [place] [address] Result Comment: Cuto ff threshold at 300 ng/mL. Performed By: #### 5 8410-2 #### [facility] CLIA [id number] [address] [place] Ethanol (U) [Mass/Vol] <11 Normal <11 [facility] Comment on above: Order Comment: Speci men Type: BLOOD SPECIMEN Ordering Facility: [facility] Address: [address] [place] [address] Performed By: #### 5 8410-2 #### [facility] CLIA [id number] [address] [place] Opiates Screen Ql (U) Negative Normal Negative [facility] Comment on above: Order Comment: Speci men Type: BLOOD SPECIMEN Ordering Facility: [facility] Address: [address] [place] [address] Result Comment: Cuto ff threshold at 300 ng/mL. Performed By: #### 5 8410-2 #### [facility] CLIA [id number] [address] oxyCODONE cutoff Screen (U) [Mass/Vol] Negative Normal Negative [facility] Comment on above: Order Comment: Speci men Type: BLOOD SPECIMEN Ordering Facility: [facility] Address: [address] [place] [address] Result Comment: Cuto ff threshold at 100 ng/mL. Performed By: #### 5 8410-2 #### [facility] CLIA [id number] [address] [place] Phencyclidine Ql (U) Negative Normal Negative [facility] Comment on above: Order Comment: Speci men Type: BLOOD SPECIMEN Ordering Facility: [facility] Address: [address] [place] [address] Result Comment: Cuto ff threshold at 25 ng/mL. Performed By: #### 5 8410-2 #### [facility] CLIA [id number] [address] [place] TYPE + SCREENon 03-18-2023 ABO O Normal [facility] Comment on above: Order Comment: Speci men Type: BLOOD SPECIMENOrdering Facility: [facility] Address: [address] [place] [address] Performed By: #### T SCR ####[facility] [id number] [address] HISTORICAL AB SCR STATUS Negative Normal [facility] Comment on above: Order Comment: Speci men Type: BLOOD SPECIMENOrdering Facility: [facility] Address: [address] [place] [address] Performed By: #### T SCR ####[facility] [id number] [address] Rh Nom (Bld) Positive Normal [facility] Comment on above: Order Comment: Speci men Type: BLOOD SPECIMENOrdering Facility: [facility] Address: [address] [place] [address] Performed By: #### T SCR ####[facility] [id number] [address] TYPE AND SCREEN EXPIRATION 03/20/2023 23:59 Normal [facility] Comment on above: Order Comment: Speci men Type: BLOOD SPECIMENOrdering Facility: [facility] Address: [address] [place] [address] Performed By: #### T SCR ####[facility] [id number] [address] [place] URINALYSIS, REFLEX MICROSCOP ICon 03-18-2023 Bilirubin Ql (U) Negative Normal Negative [facility] Comment on above: Order Comment: Speci men Type: BLOOD SPECIMEN Ordering Facility: [facility] Address: [address] [place] [address] Performed By: #### 3 4528-0, 41389-1 #### [facility] CLIA [id number] [address] Clarity (Unsp spec) Clear Normal Clear [facility] Comment on above: Order Comment: Speci men Type: BLOOD SPECIMEN Ordering Facility: [facility] Address: [address] [place] [address] Performed By: #### 3 4528-0, 41759-3 #### [facility] CLIA [id number] [address] [place] Color (U) Light Yellow Normal yellow [facility] Comment on above: Order Comment: Speci men Type: BLOOD SPECIMEN Ordering Facility: [facility] Address: [address] [place] [address] Performed By: #### 3 4528-0, #### [facility] CLIA [id number] [address] Glucose Test strip (U) [Mass/Vol] 1+ Abnormal Trace, Negative [facility] Comment on above: Order Comment: Speci men Type: BLOOD SPECIMEN Ordering Facility: [facility] Address: [address] [place] [address] Performed By: #### 3 4528-0, #### [facility] CL[facility] [id number] [address] Hemoglobin Ql (U) 2+ Abnormal Negative, Trace [facility] Comment on above: Order Comment: Speci men Type: BLOOD SPECIMEN Ordering Facility: [facility] Address: [address] [place] [address] Performed By: #### 3 4528-0, #### [facility] CLIA [id number] [address] Ketones Ql (U) Negative Normal Negative, Trace [facility] Comment on above: Order Comment: Speci men Type: BLOOD SPECIMEN Ordering Facility: [facility] Address: [address] [place] [address] Performed By: #### 3 4528-0, 44208-7 #### [facility] CLIA [id number] [address] Leukocyte esterase Test strip Ql (U) 75 Yeni/uL Abnormal Negative, 25 Yeni/uL [facility] Comment on above: Order Comment: Speci men Type: BLOOD SPECIMEN Ordering Facility: [facility] Address: [address] [place] [address] Performed By: #### 3 4528-0, 42552-5 #### [facility] CLIA [id number] [address] [place] Nitrite Ql (U) Negative Normal Negative [facility] Comment on above: Order Comment: Speci men Type: BLOOD SPECIMEN Ordering Facility: [facility] Address: [address] [place] [address] Performed By: #### 3 4528-0, 02748-6 #### [facility] CLIA [id number] [address] [place] pH (U) 6.5 [pH] Normal 5.0-8.0 [facility] Comment on above: Order Comment: Speci men Type: BLOOD SPECIMEN Ordering Facility: [facility] Address: [address] [place] [address] Performed By: #### 3 4528-0, 48420-9 #### [facility] CLIA [id number] [address] Protein (U) [Mass/Vol] Trace Normal Trace , Negative [facility] Comment on above: Order Comment: Speci men Type: BLOOD SPECIMEN Ordering Facility: [facility] Address: [address] [place] [address] Performed By: #### 3 4528-0, 22746-4 #### [facility] CLIA [id number] [address] RBC LM.HPF (Urine sed) [#/Area] 6-10 /HPF Abnormal 0-3 /HPF [facility] Comment on above: Order Comment: Speci men Type: BLOOD SPECIMEN Ordering Facility: [facility] Address: [address] [place] [address] Performed By: #### 3 4528-0, 92376-8 #### [facility] CLIA [id number] [address] [place] Specific gravity (U) [Rel density] 1.016 Normal 1.005-1.030 [facility] Comment on above: Order Comment: Speci men Type: BLOOD SPECIMEN Ordering Facility: [facility] Address: [address] [place], [place] [address] [address] Performed By: #### 3 4528-0, 98816-0 #### [facility] CLIA [id number] [address] [place] Urobilinogen Ql (U) Normal Normal Negative [facility] Comment on above: Order Comment: Speci men Type: BLOOD SPECIMEN Ordering Facility: [facility] Address: [place] [address] Performed By: #### 3 4528-0, 68530-9 #### [facility] CLIA [id number] [address] [place] WBC LM.HPF (Urine sed) [#/Area] 0-5 /HPF Normal 0-5 /HPF [facility] Comment on above: Order Comment: Speci men Type: BLOOD SPECIMEN Ordering Facility: [facility] Address: [place] [address] Performed By: #### 3 4528-0, 42765-3 #### [facility] CLIA [id number] [address] [place] XR PELVIS 1V APon 03-18-2023 XR PELVIS [...] due to positioning. No acute fracture identified 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 Transcribe Date/Time: Mar 17 2023 10:54P Dictated by : ROXANN MADDEN MD This examination was interpreted and the report reviewed and electronically signed by: ROXANN MADDEN MD on Mar 17 2023 10:55PM EST [id number] Normal [facility] aPTT PPPon 03-18-2023 aPTT Coag (PPP) [Time] 26.2 s Normal 23.0-32.4 [facility] Comment on above: Order Comment: Speci men Type: BLOOD SPECIMEN Ordering Facility: [facility] Address: [place] [address] Performed By: #### 3 4528-0, 99602-0 #### [facility] CLIA [id number] [address] [place] [address] [facility] Absolute lymphocyte countOrd ered By: Brendon Hope on 03-17-2023 Lymphocytes Auto (Unsp spec) [#/Vol] 0.76 10*3/uL 0.83-4.51 [facility] Basophil percentageOrdered B y: Brendon Hope on 03-17-2023 Basophils/100 WBC (Bld) 0.2 % 0-1 [facility] Bilirubin [Mass/Vol] 0.90 mg/dL 0.20-1.00 [facility] Comment on above: For patients on eltr ombopag therapy, use of Dimension [place] TBIL is not recommended. Chloride [Moles/Vol] 101 mmol/L 98-107 [facility] Eosinophils/100 WBC (Bld) 0.0 % 0-5 [facility] Glucose [Mass/Vol] 236 mg/dL 74-106 [facility] Comment on above: Glucose result great er than or equal to 200 mg/dLsuggests DIABETES MELLITUS per A.D.A. criteria. Neutrophils (Bld) [#/Vol] 9.4 10*3/uL 2.0-7.7 [facility] Neutrophils/100 WBC (Bld) 84.7 % 47-70 [facility] Potassium [Moles/Vol] 3.7 mmol/L 3.5-5.1 [facility] Protein [Mass/Vol] 7.3 g/dL 6.4-8.2 [facility] Sodium [Moles/Vol] 137 mmol/L 136-145 [facility] WBC (Bld) [#/Vol] 11.1 10*3/uL 4.4-11.0 [facility] Blood erythrocytes count (nu mber/volume)Ordered By: Brendon Hope on 03-17-2023 RBC (Bld) [#/Vol] 5.03 10*6/uL 4.6-6.2 [facility] Blood hemoglobin measurement (mass/volume)Ordered By: Brendon Hope on 03-17-2023 Hemoglobin (Bld) [Mass/Vol] 15.7 g/dL 13.0-16.5 [facility] Blood lymphocytes/100 leukoc ytesOrdered By: Brendon Hope on 03-17-2023 Lymphocytes/100 WBC (Bld) 6.9 % 19-41 [facility] Blood monocytes/100 leukocyt esOrdered By: Brendon Hope on 03-17-2023 Monocytes/100 WBC (Bld) 7.7 % 0-10 [facility] Blood platelet mean volumeOr dered By: Brendon Hope on 03-17-2023 Platelet mean volume (Bld) [Entitic vol] 11.9 fL 6.2-12.0 [facility] Determination of erythrocyte mean corpuscular volume (MCV)Ordered By: Brendon Hope on 03-17-2023 MCV (RBC) [Entitic vol] 96.2 fL 80-94 [facility] ED NOTEon 03-17-2023 ED NOTE HNO ID: [id number] Author: Génesis Solano, FIDELINA Service: Family Practice Author Type: Registered Nurse Type: ED Notes Filed: 03/17/2023 9:11 PM Note Text: Cardene drip decreased to 7.5mg Normal [facility] ED NOTE HNO ID: [id number] Author: Reji Leija, FIDELINA Service: ? Author Type: Registered Nurse Type: ED Notes Filed: 03/17/2023 9:08 PM Note Text: Bed: 05-ED Expected date: Expected time: Means of arrival: Comments: [facility] transfer Normal [facility] ED PROV NOTEon 03-17-2023 ED PROV NOTE HNO ID: [id number] Author: Almas Ragland DO Service: Emergency Medicine [...] fall. Onset Saturday. He was seen at [facility] and diagnosed with intracranial bleeding. Started on a Cardene drip and sent to our facility for trauma consult. PE: The patient is alert cooperative with a GCS of 15. He is without complaint of pain. No obvious head trauma. Skin is dry and intact. ALMAS RAGLAND 03/17/232158 Normal [facility] Hematocrit Auto (Bld) [Volum e fraction]Ordered By: Brendon Hope on 03-17-2023 Hematocrit (Bld) [Volume fraction] 48.4 % 40-54 [facility] INR in Blood by Coagulation assayOrdered By: Brendon Hope on 03-17-2023 INR Coag (Bld) [Relative time] 1.8 {INR} [facility] Influenza virus A and B and SARS-CoV-2 (COVID-19) Ag panel - Upper respiratory specimOrdered By: Brendon Hope on 03-17-2023 SARS-CoV-2 (COVID-19) RNA JONG+probe Ql (Resp) [facility] Laboratory - Chemistry and C hemistry - challengeOrdered By: Brendon Hope on 03-17-2023 ALP [Catalytic activity/Vol] 138 U/L 45-117 [facility] ALT [Catalytic activity/Vol] 27 U/L 16-61 [facility] CO2 [Moles/Vol] 29.0 mmol/L 21.0-32.0 [facility] Globulin (S) [Mass/Vol] 3.5 g/dL 2.2-4.2 [facility] Urea nitrogen/Creatinine [Mass ratio] 13.4 mg/mg 10-20 [facility] Laboratory - CoagulationOrde red By: Brendon Hope on 03-17-2023 PT Coag (PPP) [Time] 21.2 s 11.7-14.9 [facility] Laboratory - Hematology and Cell countsOrdered By: Brendon Hope on 03-17-2023 Erythrocyte distribution width (RBC) [Entitic vol] 52.8 fL 35.1-43.9 [facility] Erythrocyte distribution width (RBC) [Ratio] 14.8 % 11.6-14.6 [facility] Immature granulocytes/100 WBC (Bld) 0.500 % 0.0-0.9 [facility] Comment on above: IG% - Immature Granu locytes (promyelocytes, myelocytes and metamyelocytes) > 1% indicates that a LEFT SHIFT is Present. MCH (RBC) [Entitic mass] 31.2 pg 27.0-32.0 [facility] Nucleated RBC/100 WBC (Bld) [Ratio] 0 % 0-5 [facility] MCHC Auto (RBC) [Mass/Vol]Or dered By: Brendon Hope on 03-17-2023 MCHC (RBC) [Mass/Vol] 32.4 g/dL 32-36 [facility] No Panel InformationOrdered By: Brendon Hope on 03-17-2023 Estimated Creatinine Clearance Calc 45.27 ml/min [facility] Estimated GFR (MDRD) Amer 66 mL/min >60 [facility] Comment on above: GFR Calc Estimated GFR (MDRD) Non-Af Amer 54 mL/min >60 [facility] Comment on above: Non- GFR Calc Ethyl Alcohol Level < 3.0 mg/dL [facility] Comment on above: The serum:whole bloo d ethanol ratio is approximately 1.14and varies slightly with hematocrit. Medical Alcohol reference interval and critical value innon-tolerant individuals; 50 - 100 Impairment 100 Intoxication 100 - 250 Severe Poisoning 250 - 400 Deep/possible fatal coma Troponin I High Sensitivity 42 pg/mL 3.0-78.0 [facility] Comment on above: Please Note: New Michelle t Units and Gender Specific Reference Ranges. For more information see Policy Stat Procedure [place] High Sensitivity Troponin (TNIH) and attachments. Platelets bldOrdered By: Radha Hope on 03-17-2023 Platelets (Bld) [#/Vol] 143 10*3/uL 150-450 [facility] Serum or plasma albumin cr urement (mass/volume)Ordered By: Brendon Hope on 12-24-2023 Albumin [Mass/Vol] 3.8 g/dL 3.2-5.0 [facility] Serum or plasma albumin/glob ulin mass ratioOrdered By: Brendon Hope on 03-17-2023 Albumin/Globulin [Mass ratio] 1.1 {ratio} 0.9-2.4 [facility] Serum or plasma calcium cr urement (mass/volume)Ordered By: Brendon Hope on 03-17-2023 Calcium [Mass/Vol] 9.7 mg/dL 8.5-10.1 [facility] [facility] Serum or plasma creatinine m easurement (mass/volume)Ordered By: Brendon Hope on 03-17-2023 Creatinine [Mass/Vol] 1.34 mg/dL 0.70-1.30 [facility] Comment on above: The validity of the calculated GFR & GFRAA in patients over 70 years has not been determined. Clinical correlation is essential. Serum or plasma urea nitroge n measurement (mass/volume)Ordered By: Brendon Hope on 03-17-2023 Urea nitrogen [Mass/Vol] 18 mg/dL 7-18 [facility] Thin prep Papanicolaou smear with manual screeningOrdered By: Brendon Hope on 03-17-2023 Thin prep Papanicolaou smear with manual screening 22 U/L 15-37 [facility] Thin prep Papanicolaou smear with manual screening 7 5-15 [facility] Upper respiratory specimen i nfluenza A virus, influenza B virus, and severe acute resOrdered By: Brendon Hope on 03-17-2023 Upper respiratory specimen influenza A virus, influenza B virus, and severe acute res [facility] Upper respiratory specimen influenza A virus, influenza B virus, and severe acute res [facility] LIPID PANELon 03-05-2023 CHOL/HDL RATIO 3.6 Normal <=4.0 [facility] Comment on above: Order Comment: Locat ion: Performed By: #### L AB18 #### HANNAH RICHARD ([id number]) [facility] (COP) [address] [facility], [address] [place] [address] Cholesterol [Mass/Vol] 120 mg/dL Normal <=200 [facility] Comment on above: Order Comment: Locat ion: Performed By: #### L AB18 #### HANNAH RICHARD ([id number]) [facility] (COP) [address] [address] Cholesterol in HDL [Mass/Vol] 33 mg/dL Low >60 [facility] Comment on above: Order Comment: Locat ion: Performed By: #### L AB18 #### HANNAH RICHARD ([id number]) [facility] ([facility]) [address] [address] Cholesterol in LDL [Mass/Vol] 55 mg/dL Normal <=130 [facility] Comment on above: Order Comment: Locat ion: Performed By: #### L AB18 #### HANNAH RICHARD ([id number]) [facility] ([facility]) [address] [place] [address] NON-HDL CHOL 87 Normal [facility] Comment on above: Order Comment: Locat ion: Result Comment: LDL and Non-HDL goal dependent upon individual risk Performed By: #### L AB18 #### HANNAH RICHARD ([id number]) [facility] ([facility]) [address] [address] Triglyceride [Mass/Vol] 158 mg/dL High <=150 [facility] Comment on above: Order Comment: Locat ion: Performed By: #### L AB18 #### HANNAH RICHARD ([id number]) [facility] ([facility]) [address] [place] [address] VLDL-CALC 31.6 mg/dl High 0-30 [facility] Comment on above: Order Comment: Locat ion: Performed By: #### L AB18 #### HANNAH RICHARD ([id number]) [facility] ([facility]) [address] [place] [address] PT/INR POINT OF CAREon 02-27 POC INR 2.1 [facility] Comment on above: Result Comment: For patients on oral anticoagulants, the therapeutic INR reference range is 2.0 to 3.5 PT/INR (POC Device) 25.0 seconds High 9.4-12.1 [facility] PT/INR POINT OF CAREon 01-29 POC INR 2.7 [facility] Comment on above: Result Comment: For patients on oral anticoagulants, the therapeutic INR reference range is 2.0 to 3.5 PT/INR (POC Device) 32.0 seconds High 9.4-12.1 [facility] POC INR 5.7 [facility] Comment on above: Result Comment: For patients on oral anticoagulants, the therapeutic INR reference range is 2.0 to 3.5 PT/INR (POC Device) 68.0 seconds High 9.4-12.1 [facility] PT/INR POINT OF CAREon 01-04 POC INR 2.4 [facility] Comment on above: Result Comment: For patients on oral anticoagulants, the therapeutic INR reference range is 2.0 to 3.5 PT/INR (POC Device) 28.5 seconds High 9.4-12.1 [facility] BASIC METABOLIC PANELon 12-23 Anion gap [Moles/Vol] 9 mmol/L Normal 5-15 [facility] Comment on above: Order Comment: Locat ion: Performed By: #### L AB15 #### HANNAH RICHARD ([id number]) [facility] ([facility]) [address] [address] B/C RATIO 15.8 Normal 10.0-28.6 [facility] Comment on above: Order Comment: Locat ion: Performed By: #### L AB15 #### HANNAH RICHARD ([id number]) [facility] ([facility]) [address] [address] Calcium [Mass/Vol] 10.0 mg/dL Normal 8.7-10.4 [facility] Comment on above: Order Comment: Locat ion: Performed By: #### L AB15 #### HANNAH RICHARD ([id number]) [facility] ([facility]) [address] [facility], [address] [place] [address] Chloride [Moles/Vol] 103 mmol/L Normal 98-107 [facility] Comment on above: Order Comment: Locat ion: Performed By: #### L AB15 #### HANNAH RICHARD ([id number]) [facility] ([facility]) [address] [facility], [address] [address] CO2 [Moles/Vol] 29 mmol/L Normal 20-31 [facility] Comment on above: Order Comment: Locat ion: Performed By: #### L AB15 #### HANNAH RICHARD ([id number]) [facility] ([facility]) [address] [address] Creatinine [Mass/Vol] 1.2 mg/dL Normal 0.7-1.3 [facility] Comment on above: Order Comment: Locat ion: Performed By: #### L AB15 #### HANNAH RICHARD ([id number]) [facility] ([facility]) [address] [address] GFR 60.4 mL/min/1.73m*2 Normal >=60.[address] [facility] Comment on above: Order Comment: Locat ion: Performed By: #### L AB15 #### HANNAH RICHARD ([id number]) [facility] ([facility]) [address] [address] Glucose [Mass/Vol] 179 mg/dL High 74-106 [facility] Comment on above: Order Comment: Locat ion: Performed By: #### L AB15 #### HANNAH RICHARD ([id number]) [facility] ([facility]) [address] [address] Potassium [Moles/Vol] 4.3 mmol/L Normal 3.5-5.1 [facility] Comment on above: Order Comment: Locat ion: Performed By: #### L AB15 #### HANNAH RICHARD ([id number]) [facility] ([facility]) [address] [facility], [address] [place] [address] Sodium [Moles/Vol] 141 mmol/L Normal 136-145 [facility] Comment on above: Order Comment: Locat ion: Performed By: #### L AB15 #### HANNAH RICHARD ([id number]) [facility] ([facility]) [address] [facility], [address] [address] Urea nitrogen [Mass/Vol] 19 mg/dL Normal 9-23 [facility] Comment on above: Order Comment: Locat ion: Performed By: #### L AB15 #### HANNAH RICHARD ([id number]) [facility] ([facility]) [address] [facility], [address] [address] [id number] 01-03-2023 HbA1c (Bld) [Mass fraction] 7.0 % High 0.0-5.7 [facility] Comment on above: Order Comment: Locat ion: Result Comment: Refe rence Interval: Normal: below 5.7% Prediabetes: 5.7% to 6.4% Diabetes: 6.5% or above Performed By: #### L AB90 #### HANNAH RICHARD ([id number]) [facility] ([facility]) [address] [place] [address] PT/INR POINT OF CAREon 12-18 POC INR 3.0 [facility] Comment on above: Result Comment: For patients on oral anticoagulants, the therapeutic INR reference range is 2.0 to 3.5 PT/INR (POC Device) 35.4 seconds High 9.4-12.[address] [facility] [address] CHEST WITHOUT CONTRASTon 12-16-2022 [...] Alcocer MD Interpreting Provider: Anupam Flower MD [facility] PT/INR POINT OF CAREon 12-11 POC INR 2.7 [facility] Comment on above: Result Comment: For patients on oral anticoagulants, the therapeutic INR reference range is 2.0 to 3.5 PT/INR (POC Device) 32.4 seconds High 9.4-12.1 [facility] PT/INR POINT OF [facility] 12-07 POC INR 1.8 [facility] Comment on above: Result Comment: For patients on oral anticoagulants, the therapeutic INR reference range is 2.0 to 3.5 PT/INR (POC Device) 21.3 seconds High 9.4-12.1 [facility] PT/INR POINT OF [facility] 12-04 POC INR 4.3 [facility] Comment on above: Result Comment: For patients on oral anticoagulants, the therapeutic INR reference range is 2.0 to 3.5 PT/INR (POC Device) 51.5 seconds High 9.4-12.1 [facility] PT/INR POINT OF [facility] 11-20 POC INR 4.2 [facility] Comment on above: Result Comment: For patients on oral anticoagulants, the therapeutic INR reference range is 2.0 to 3.5 PT/INR (POC Device) 50.1 seconds High 9.4-12.1 [facility] PT/INR POINT OF [facility] 11-13 POC INR 1.9 [facility] Comment on above: Result Comment: For patients on oral anticoagulants, the therapeutic INR reference range is 2.0 to 3.5 PT/INR (POC Device) 23.3 seconds High 9.4-12.1 [facility] XR CHEST PA AND LATERALon [...] Dailey MD Interpreting Provider: Komal Lafleur MD [facility] PT/INR POINT OF CAREon 11-06 POC INR 1.4 [facility] Comment on above: Result Comment: For patients on oral anticoagulants, the therapeutic INR reference range is 2.0 to 3.5 PT/INR (POC Device) 16.6 seconds High 9.4-12.1 [facility] XR KNEE RIGHT 2 VIEWSon [...] Smith MD Interpreting Provider: Anupam Malave MD [facility] CYSTOSCOPYon 11-02-2022 Radiology Study observation (narrative) [facility] CYSTOSCOPYon 11-01-2022 Neno Domínguez MD 11/02/2022 6:57 [...] was obtained. Does this procedure require a [place] Protocol? Yes. [place] Protocol is required. The patient was given [...] Procedure Comments: F/u in 3 months for [employer] [facility] Basic Metabolic Panel ([facility]) on 10-31-2022 Anion gap [Moles/Vol] 7 mmol/L Normal 5-15 [facility] Comment on above: Order Comment: Items in this order include: HgbA1C, Basic Metabolic Panel Testing Performed By: [facility] [address] [place] [address] CLIA#:[id number] [address] Hannah Richard, Heat Treat Supervisor Performed By: #### C 406, P69 #### [facility] [address] [place] [address] B/C Ratio 10.0 Ratio Normal 10.0-28.6 [facility] Comment on above: Order Comment: Items in this order include: HgbA1C, Basic Metabolic Panel Testing Performed By: [facility] [address] [place] [address] CLIA#:[id number] [address] Hannah Richard, Heat Treat Supervisor Performed By: #### C 406, C45 #### [facility] [address] [place] [address] Calcium [Mass/Vol] 9.5 mg/dL Normal 8.7-10.4 [facility] Comment on above: Order Comment: Items in this order include: HgbA1C, Basic Metabolic Panel Testing Performed By: [facility] [address] [place] [address] CLIA#:[id number] [address] Hannah Richard, Heat Treat Supervisor Performed By: #### C 406, C45 #### [facility] [address] [place] [address] Chloride [Moles/Vol] 104 mmol/L Normal 98-107 [facility] Comment on above: Order Comment: Items in this order include: HgbA1C, Basic Metabolic Panel Testing Performed By: [facility] [address] [place] [address] CLIA#:[id number] Hannah Richard, Heat Treat Supervisor Performed By: #### C 406, C45 #### [facility] [address] [place] [address] CO2 [Moles/Vol] 30 mmol/L Normal 20-31 [facility] Comment on above: Order Comment: Items in this order include: HgbA1C, Basic Metabolic Panel Testing Performed By: [facility] [address] [place] [address] CLIA#:[id number] [address] Hannah Richard, Heat Treat Supervisor Performed By: #### C 406, C45 #### [facility] [address] [place] [address] Creatinine [Mass/Vol] 1.2 mg/dL Normal 0.7-1.3 [facility] Comment on above: Order Comment: Items in this order include: HgbA1C, Basic Metabolic Panel Testing Performed By: [facility] [address] [place] [address] CLIA#:[id number] [address] Hannah Richard, Heat Treat Supervisor Performed By: #### C 406, C45 #### [facility] [address] [place] [address] GFRCKD-Female 45 mL/min per 1.73 Low >60 [facility] Comment on above: Order Comment: Items in this order include: HgbA1C, Basic Metabolic Panel Testing Performed By: [facility] [address] [place] [address] CLIA#:[id number] [address] Hannah Richard, Heat Treat Supervisor Result Comment: The GFR estimate is not adjusted for race. Performed By: #### C 406, C45 #### [facility]. [address] [place] [address] [place] [address] GFRCKD-Male 60 mL/min per 1.73 Low >60 [facility] Comment on above: Order Comment: Items in this order include: HgbA1C, Basic Metabolic Panel Testing Performed By: [facility] [address] [place] [address] CLIA#:[id number] [address] Hannah Richard, Heat Treat Supervisor Result Comment: The GFR estimate is not adjusted for race. Performed By: #### C 406, C45 #### [facility] [address] [place] [address] [place] [address] Glucose [Mass/Vol] 182 mg/dL High 74-106 [facility] Comment on above: Order Comment: Items in this order include: HgbA1C, Basic Metabolic Panel Testing Performed By: [facility] [address] [place] [address] CLIA#:[id number] [address] Hannah Richard, Heat Treat Supervisor Performed By: #### C 406, C45 #### [facility]. [address] [place] [address] [address] [place] [address] Potassium [Moles/Vol] 4.3 mmol/L Normal 3.5-5.1 [facility] Comment on above: Order Comment: Items in this order include: HgbA1C, Basic Metabolic Panel Testing Performed By: [facility] [address] [place] [address] CLIA#:[id number] [address] Hannah Richard, Heat Treat Supervisor Performed By: #### C 406, C45 #### [facility] [address] [place] [address] Sodium [Moles/Vol] 141 mmol/L Normal 136-145 [facility] Comment on above: Order Comment: Items in this order include: HgbA1C, Basic Metabolic Panel Testing Performed By: [facility] [address] [place] [address] CLIA#:[id number] [address] Hannah Richard, Heat Treat Supervisor Performed By: #### C 406, C45 #### [facility] [address] [place] [address] Urea nitrogen [Mass/Vol] 12 mg/dL Normal 9-23 [facility] Comment on above: Order Comment: Items in this order include: HgbA1C, Basic Metabolic Panel Testing Performed By: [facility] [address] [place] [address] CLIA#:[id number] [address] Hannah Richard, Heat Treat Supervisor Performed By: #### C 406, C45 #### [facility] [address] [place] [address] HgbA1C [facility] 10-31-2022 HbA1c (Bld) [Mass fraction] 6.6 % High <5.7 [facility] Comment on above: Order Comment: Items in this order include: HgbA1C, Basic Metabolic Panel Testing Performed By: [facility] [address] [place] [address] CLIA#:[id number] [address] Hannah Richard, Heat Treat Supervisor Result Comment: Refe rence Interval: Normal: below 5.7%. Prediabetes: 5.7% to 6.4%. Diabetes: 6.5% or above. Performed By: #### C 406, C45 #### [facility] [address] [place] [address] PT/INR POINT OF CAREon 10-30 POC INR 1.3 [facility] Comment on above: Result Comment: For patients on oral anticoagulants, the therapeutic INR reference range is 2.0 to 3.5 PT/INR (POC Device) 15.8 seconds High 9.4-12.1 [facility] PT/INR POINT OF CAREon 10-23 POC INR 3.6 [facility] Comment on above: Result Comment: For patients on oral anticoagulants, the therapeutic INR reference range is 2.0 to 3.5 PT/INR (POC Device) 42.9 seconds High 9.4-12.1 [facility] PT/INR POINT OF CAREon 10-16 POC INR 1.8 [facility] Comment on above: Result Comment: For patients on oral anticoagulants, the therapeutic INR reference range is 2.0 to 3.5 PT/INR (POC Device) 22.0 seconds High 9.4-12.1 [facility] XR HIP RIGHT 2 VIEWSon [...] Dailey MD Interpreting Provider: Komal Lafleur MD [facility] ECGon 09-14-2022 Electrocardiogram [place] [address] Test Date: 2022-09-12 Pat Name: MICK COTTRELL Department: EXAM16 Room: [facility] Gender: M 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1940 Requested By: KOMAL Arreola Order Number: [id number] Reading MD: Juanito Nicolas Measurements Intervals [place] Rate: 84 P: 90 WV: 187 QRS: 129 QRSD: 127 T: -32 QT: 367 QTc: 434 Interpretive Statements Sinus rhythm RBBB and LPFB Nonspecific T abnormalities, lateral leads Electronically Signed On 09-13-2022 22:51:23 EDT by Juanito Nicolas [facility] POCon 09-14-2022 Glucose [Mass/Vol] 209 mg/dL High 70-99 [facility] [place] Glucose [Mass/Vol] 209 mg/dL High 70 - 99 mg/dL [facility] Interpretation and review of laboratory results Abnormal [facility] Glucose [Mass/Vol] 200 mg/dL High 70-99 [facility] Glucose [Mass/Vol] 200 mg/dL High 70 - 99 mg/dL [facility] Interpretation and review of laboratory results Abnormal [facility] Glucose [Mass/Vol] 144 mg/dL High 70-99 [facility] Glucose [Mass/Vol] 144 mg/dL High 70 - 99 mg/dL [facility] Interpretation and review of laboratory results Abnormal [facility] PROTIME-INRon 09-14-2022 INR Coag (PPP) [Relative time] 1.8 {INR} [facility] Comment on above: Result Comment: For Patients on oral anticoagulants, the therapeutic INR reference range is 2.0 to 3.5 PT Coag (PPP) [Time] 19.6 s High 9.4-12.1 [facility] INR Coag (Bld) [Relative time] 1.8 {INR} [facility] Comment on above: For Patients on oral anticoagulants, the therapeutic INR reference range is 2.0 to 3.5 Interpretation and review of laboratory results Abnormal [facility] PT Coag (PPP) [Time] 19.6 s High [facility] BASIC METABOLIC PANELon - Calcium [Mass/Vol] 9.1 mg/dL Normal 8.6-10.3 [facility] Chloride [Moles/Vol] 106 mmol/L Normal 98-107 [facility] CO2 [Moles/Vol] 24 mmol/L Normal 23-29 [facility] Creatinine [Mass/Vol] 1.03 mg/dL Normal 0.70-1.30 [facility] GFR/1.73 sq M.predicted among non-blacks MDRD (S/P/Bld) [Vol rate/Area] 73 mL/min/{1.73_m2} Normal >=60 [facility] Comment on above: Result Comment: Repo rted eGFR is based on the CKD-EPI 2020 equation using creatinine, age, and sex. Glucose [Mass/Vol] 133 mg/dL High 70-105 [facility] Osmolality [Osmolality] 289 mosm/kg Normal 280-300 [facility] Potassium [Moles/Vol] 3.6 mmol/L Normal 3.5-5.1 [facility] Sodium [Moles/Vol] 138 mmol/L Normal 136-145 [facility] Urea nitrogen [Mass/Vol] 16 mg/dL Normal 8-23 [facility] Urea nitrogen/Creatinine [Mass ratio] 16 mg/mg Normal 6-26 [facility] Calcium [Mass/Vol] 9.1 mg/dL 8.6 - 10. 3 mg/dL [facility] Chloride [Moles/Vol] 106 mmol/L 98 - 10 7 mmol/L [facility] CO2 [Moles/Vol] 24 mmol/L 23 - 29 mmol/L [facility] Creatinine [Mass/Vol] 1.03 mg/dL 0.70 - 1.30 mg/dL [facility] GFR/1.73 sq M.predicted CKD-EPI (S/P/Bld) [Vol rate/Area] 73 - PINF [facility] Comment on above: Reported eGFR is bas ed on the CKD-EPI 2021 equation using creatinine, age, and sex. Glucose [Mass/Vol] 133 mg/dL High 70 - 105 mg/dL [facility] Interpretation and review of laboratory results Abnormal [facility] Osmolality Calc [Osmolality] 289 280 - 300 [facility] Potassium [Moles/Vol] 3.6 mmol/L 3.5 - 5.1 mmol/L [facility] Sodium [Moles/Vol] 138 mmol/L 136 - 145 mmol/L [facility] Urea nitrogen [Mass/Vol] 16 mg/dL 8 - 23 mg/dL [facility] Urea nitrogen/Creatinine [Mass ratio] 16 mg/mg 6 - 26 [facility] CBC,PLATELETSon 09-13-2022 Hematocrit (Bld) [Volume fraction] 42.7 % Normal 37.5-50.1 [facility] Hemoglobin (Bld) [Mass/Vol] 14.3 g/dL Normal 12.9-16.9 [facility] Immature Plt Fraction % 6.5 % High 1.1-6.1 [facility] MCV (RBC) [Entitic vol] 94.7 fL Normal 83.0-100.0 [facility] Mean Cell Hgb 31.7 pg Normal 28.0-33.0 [facility] Mean Cell Hgb Conc 33.5 g/dL Normal 31.6-35.5 [facility] [place] Platelet mean volume (Bld) [Entitic vol] 11.6 fL Normal 9.4-12.4 [facility] Platelets (Bld) [#/Vol] 116 10*3/uL Low 140-400 [facility] RBC (Bld) [#/Vol] 4.51 10*6/uL Normal 4.19-5.50 [facility] [place] RBC Distribution 14.8 % High 11.5-14.5 [facility] WBC (Bld) [#/Vol] 8.3 10*3/uL Normal 4.3-11.1 [facility] [place] CBC,PLATELETSOrdered By: Breezy Moore on 09-13-2022 Erythrocyte distribution width (RBC) [Ratio] 14.8 % High 11.5 - 14.5 % [facility] Hematocrit (Bld) [Volume fraction] 42.7 % 37.5 - 50.1 % [facility] Hemoglobin (Bld) [Mass/Vol] 14.3 g/dL 12.9 - 16.9 g/dL [facility] Immature Plt Fraction % 6.5 % High 1.1 - 6.1 % [facility] Interpretation and review of laboratory results Abnormal [facility] MCH (RBC) [Entitic mass] 31.7 pg 28.0 - 33.0 pg [facility] MCHC (RBC) [Mass/Vol] 33.5 g/dL 31.6 - 35.5 g/dL [facility] MCV (RBC) [Entitic vol] 94.7 fL 83.0 - 100.0 fL [facility] Platelet mean volume (Bld) [Entitic vol] 11.6 fL 9.4 - 12.4 fL [facility] Platelets (Bld) [#/Vol] 116 10*3/uL Low 140 - 400 K/uL [facility] RBC (Bld) [#/Vol] 4.51 10*6/uL [facility] WBC (Bld) [#/Vol] 8.3 10*3/uL 4.3 - 11.1 K/uL [facility] ECGon 09-13-2022 [place] [address] Test Date: 2022-09-12 Pat Name: MICK COTTRELL Department: [id number] Room: [facility] Gender: M 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1940 Requested By: KOMAL Arreola Order Number: [id number] Reading : Juanito Nicolas Measurements Intervals [place] Rate: 84 P: 90 WV: 187 QRS: 129 QRSD: 127 T: -32 QT: 367 QTc: 434 Interpretive Statements Sinus rhythm RBBB and LPFB Nonspecific T abnormalities, lateral leads Electronically Signed On 09-13-2022 22:51:23 EDT by Juanito Nicolas RADIOLOGY Juanito Nicolas MD - 09/13/2022 [place] [address] Test Date: 2022-09-12 Pat Name: MICK COTTRELL Department: [id number] Room: 418 Gender: M 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[id number] Requested By: KOMAL Arreola Order Number: [id number] Reading MD: Juanito Nicolas Measurements Intervals [place] Rate: 84 P: 90 WV: 187 QRS: 129 QRSD: 127 T: -32 QT: 367 QTc: 434 Interpretive Statements Sinus rhythm RBBB and LPFB Nonspecific T abnormalities, lateral leads Electronically Signed On 09-13-2022 22:51:23 EDT by Juanito Nicolas [facility] ECGOrdered By: Juanito mahoney 09-13-2022 [facility] Work Phone: GLUCOSE POCon 09-13-2022 Glucose [Mass/Vol] 210 mg/dL High 70-99 [facility] Glucose [Mass/Vol] 210 mg/dL High 70 - 99 mg/dL [facility] Interpretation and review of laboratory results Abnormal [facility] Glucose [Mass/Vol] 166 mg/dL High 70-99 [facility] Glucose [Mass/Vol] 166 mg/dL High 70 - 99 mg/dL [facility] Interpretation and review of laboratory results Abnormal [facility] Glucose [Mass/Vol] 159 mg/dL High 70-99 [facility] Glucose [Mass/Vol] 159 mg/dL High 70 - 99 mg/dL [facility] Interpretation and review of laboratory results Abnormal [facility] Glucose [Mass/Vol] 146 mg/dL High 70-99 [facility] Glucose [Mass/Vol] 146 mg/dL High 70 - 99 mg/dL [facility] Interpretation and review of laboratory results Abnormal [facility] MAGNESIUMon 09-13-2022 Magnesium [Mass/Vol] 2.0 mg/dL Normal 1.6-2.6 [facility] Interpretation and review of laboratory results Normal [facility] Magnesium [Mass/Vol] 2.0 mg/dL 1.6 - 2 .6 mg/dL [facility] No Panel Informationon 09-13 [facility] PROTIME-INRon 09-13-2022 INR Coag (PPP) [Relative time] 2.0 {INR} Normal [facility] Comment on above: Result Comment: For Patients on oral anticoagulants, the therapeutic INR reference range is 2.0 to 3.5 PT Coag (PPP) [Time] 22.4 s High 9.4-12.1 [facility] PROTIME-INROrdered By: Gian Moya on 09-13-2022 INR Coag (Bld) [Relative time] 2.0 {INR} [facility] Comment on above: For Patients on oral anticoagulants, the therapeutic INR reference range is 2.0 to 3.5 Interpretation and review of laboratory results Abnormal [facility] PT Coag (PPP) [Time] 22.4 s High [facility] BASIC METABOLIC PANELon 08-24 Calcium [Mass/Vol] 9.3 mg/dL Normal 8.6-10.3 [facility] Chloride [Moles/Vol] 104 mmol/L Normal 98-107 [facility] CO2 [Moles/Vol] 27 mmol/L Normal 23-29 [facility] Creatinine [Mass/Vol] 1.17 mg/dL Normal 0.70-1.30 [facility] GFR/1.73 sq M.predicted among non-blacks MDRD (S/P/Bld) [Vol rate/Area] 63 mL/min/{1.73_m2} Normal >=60 [facility] Comment on above: Result Comment: Repo rted eGFR is based on the CKD-EPI 2020 equation using creatinine, age, and sex. Glucose [Mass/Vol] 139 mg/dL High 70-105 [facility] Osmolality [Osmolality] 292 mosm/kg Normal 280-300 [facility] Potassium [Moles/Vol] 4.0 mmol/L Normal 3.5-5.1 [facility] Sodium [Moles/Vol] 140 mmol/L Normal 136-145 [facility] Urea nitrogen [Mass/Vol] 13 mg/dL Normal 8-23 [facility] Urea nitrogen/Creatinine [Mass ratio] 11 mg/mg Normal 6-26 [facility] Calcium [Mass/Vol] 9.3 mg/dL 8.6 - 10. 3 mg/dL [facility] Chloride [Moles/Vol] 104 mmol/L 98 - 10 7 mmol/L [facility] CO2 [Moles/Vol] 27 mmol/L 23 - 29 mmol/L [facility] Creatinine [Mass/Vol] 1.17 mg/dL 0.70 - 1.30 mg/dL [facility] GFR/1.73 sq M.predicted CKD-EPI (S/P/Bld) [Vol rate/Area] 63 - PINF [facility] Comment on above: Reported eGFR is bas ed on the CKD-EPI 2020 equation using creatinine, age, and sex. Glucose [Mass/Vol] 139 mg/dL High 70 - 105 mg/dL [facility] Interpretation and review of laboratory results Abnormal [facility] Osmolality Calc [Osmolality] 292 280 - 300 [facility] Potassium [Moles/Vol] 4.0 mmol/L 3.5 - 5.1 mmol/L [facility] Sodium [Moles/Vol] 140 mmol/L 136 - 145 mmol/L [facility] Urea nitrogen [Mass/Vol] 13 mg/dL 8 - 23 mg/dL [facility] Urea nitrogen/Creatinine [Mass ratio] 11 mg/mg 6 - 26 [facility] CBC AND ELECTRONIC DIFFon Basophils (Bld) [#/Vol] 0.0 10*3/uL Normal 0.0-0.2 [facility] Basophils/100 WBC (Bld) 0.2 % Normal [facility] [place] Eosinophils (Bld) [#/Vol] 0.1 10*3/uL Normal 0.0-0.6 [facility] Eosinophils/100 WBC (Bld) 1.2 % Normal [facility] [place] Hematocrit (Bld) [Volume fraction] 44.5 % Normal 37.5-50.1 [facility] Hemoglobin (Bld) [Mass/Vol] 14.5 g/dL Normal 12.9-16.9 [facility] Immature Grans % 0.2 % Normal [facility] Immature Plt Fraction % 7.6 % High 1.1-6.1 [facility] Lymphocytes (Bld) [#/Vol] 0.6 10*3/uL Normal 0.6-4.6 [facility] [place] Lymphocytes/100 WBC (Bld) 6.3 % Normal [facility] MCV (RBC) [Entitic vol] 97.4 fL Normal 83.0-100.0 [facility] Mean Cell Hgb 31.7 pg Normal 28.0-33.0 [facility] Mean Cell Hgb Conc 32.6 g/dL Normal 31.6-35.5 [facility] [place] Monocytes (Bld) [#/Vol] 0.8 10*3/uL Normal 0.0-1.3 [facility] Monocytes/100 WBC (Bld) 7.9 % Normal [facility] Nucleated RBC 0 /100 WBC Normal [facility] [place] Platelet mean volume (Bld) [Entitic vol] 11.2 fL Normal 9.4-12.4 [facility] Platelets (Bld) [#/Vol] 123 10*3/uL Low 140-400 [facility] RBC (Bld) [#/Vol] 4.57 10*6/uL Normal 4.19-5.50 [facility] [place] RBC Distribution 14.7 % High 11.5-14.5 [facility] Segs + Bands Auto 84.2 % Normal [facility] Seg + Bands,Absolute Auto 8.4 K/uL Normal 1.6-8.9 [facility] WBC (Bld) [#/Vol] 9.9 10*3/uL Normal 4.3-11.1 [facility] Basophils (Bld) [#/Vol] 0.0 10*3/uL 0.0 - 0.2 K/uL [facility] Basophils/100 WBC (Bld) 0.2 % [facility] Eosinophils (Bld) [#/Vol] 0.1 10*3/uL 0.0 - 0.6 K/uL [facility] Eosinophils/100 WBC (Bld) 1.2 % [facility] Erythrocyte distribution width (RBC) [Ratio] 14.7 % High 11.5 - 14.5 % [facility] Hematocrit (Bld) [Volume fraction] 44.5 % 37.5 - 50.1 % [facility] Hemoglobin (Bld) [Mass/Vol] 14.5 g/dL 12.9 - 16.9 g/dL [facility] Immature granulocytes/100 WBC (Bld) 0.2 % [facility] Immature Plt Fraction % 7.6 % High 1.1 - 6.1 % [facility] Interpretation and review of laboratory results Abnormal [facility] Lymphocytes (Bld) [#/Vol] 0.6 10*3/uL 0.6 - 4.6 K/uL [facility] Lymphocytes/100 WBC (Bld) 6.3 % [facility] MCH (RBC) [Entitic mass] 31.7 pg 28.0 - 33.0 pg [facility] MCHC (RBC) [Mass/Vol] 32.6 g/dL 31.6 - 35.5 g/dL [facility] MCV (RBC) [Entitic vol] 97.4 fL 83.0 - 100.0 fL [facility] Monocytes (Bld) [#/Vol] 0.8 10*3/uL 0.0 - 1.3 K/uL [facility] Monocytes/100 WBC (Bld) 7.9 % [facility] Neutrophils (Bld) [#/Vol] 8.4 10*3/uL 1.6 - 8.9 K/uL [facility] Nucleated RBC/100 WBC (Bld) [Ratio] 0 % /100 WBC [facility] Platelet mean volume (Bld) [Entitic vol] 11.2 fL 9.4 - 12.4 fL [facility] Platelets (Bld) [#/Vol] 123 10*3/uL Low 140 - 400 K/uL [facility] RBC (Bld) [#/Vol] 4.57 10*6/uL [facility] Segmented neutrophils/100 WBC (Bld) 84.2 % [facility] WBC (Bld) [#/Vol] 9.9 10*3/uL 4.3 - 11.1 K/uL [facility] CT HEAD WITHOUT CONTRASTon 0 09-12-2022 CT [...] to chronic microvascular ischemic disease. There is [id number] global parenchymal volume loss. ORBITS: The visualized [...] / Irving Quintero Interpreting Provider: Irving Quintero [facility] CT Head WO contraston 2022 [...] to chronic microvascular ischemic disease. There is [id number] global parenchymal volume loss. ORBITS: The visualized [...] to chronic microvascular ischemic disease. There is yuhq-ot-mazxcppi global parenchymal volume loss. ORBITS: The visualized [...] / Irving Quintero Interpreting Provider: Irving Quintero [facility] Study observation (narrative) [facility] Head WO contrastOrdered B y: Amaury Rodriguez on 09-12-2022 [facility] Work Phone: ECG (SCANNED)on 09-12-2022 [facility] GLUCOSE POCon 09-12-2022 Glucose [Mass/Vol] 187 mg/dL High 70-99 [facility] Glucose [Mass/Vol] 187 mg/dL High 70 - 99 mg/dL [facility] Interpretation and review of laboratory results Abnormal [facility] Glucose [Mass/Vol] 117 mg/dL High 70-99 [facility] Glucose [Mass/Vol] 117 mg/dL High 70 - 99 mg/dL [facility] Interpretation and review of laboratory results Abnormal [facility] MR Hip - right WO contraston 09-12-2022 [...] / Irving Quintero Interpreting Provider: Irving Quintero [facility] Radiology Study observation (narrative) [facility] MRI HIP RIGHT WITHOUT CONTRA STon 09-12-2022 [...] / Irving Quintero Interpreting Provider: Irving Quintero [facility] No Panel Informationon 09-12 [facility] PROTIME-INRon 09-12-2022 INR Coag (PPP) [Relative time] 2.2 {INR} [facility] Comment on above: Result Comment: For Patients on oral anticoagulants, the therapeutic INR reference range is 2.0 to 3.5 PT Coag (PPP) [Time] 24.3 s High 9.4-12.1 [facility] INR Coag (Bld) [Relative time] 2.2 {INR} [facility] Comment on above: For Patients on oral anticoagulants, the therapeutic INR reference range is 2.0 to 3.5 Interpretation and review of laboratory results Abnormal [facility] PT Coag (PPP) [Time] 24.3 s High [facility] Portable XR Chest Viewson IMPRESSION: Blunting of [...] / Irving Quintero Interpreting Provider: Irving Quintero [facility] Radiology Study observation (narrative) [facility] TROPONINon 09-12-2022 Troponin I.cardiac [Mass/Vol] 0.03 ng/mL Normal <0.04 [facility] Interpretation and review of laboratory results Normal [facility] Troponin I.cardiac DL <= 0.01 ng/mL [Mass/Vol] 0.03 ng/mL NINF - 0.04 ng/mL [facility] URINE SCREENon 09-12-2022 Appearance (U) Clear Normal Clear [facility] [place] Bilirubin Ql (U) Negative Normal Negative [facility] [place] Blood Urine Trace Abnormal Negative [facility] Color (U) Light Yellow Normal Yellow [facility] Glucose Ql (U) Normal Normal Normal [facility] [place] Ketones Ql (U) Negative Normal Negative [facility] [place] Leukocyte esterase Test strip Ql (U) Negative Normal Negative [facility] [place] Nitrites Urine Negative Normal Negative [facility] pH Urine 8.0 pH Units Normal 5.0-8.0 [facility] Protein Urine Trace Normal Negative-Tr dorie [facility] [place] Specific [place] Urine 1.017 Normal 1.010-1.025 R [facility] in [place] Urobilinogen Urine Normal Normal Normal [facility] [place] Appearance (U) Clear Clear [facility] Bilirubin Ql (U) Negative Negative [facility] Color (U) Light Yellow Yellow [facility] Glucose Test strip (U) [Mass/Vol] Normal Normal [facility] Interpretation and review of laboratory results Abnormal [facility] Ketones (U) [Mass/Vol] Negative Negative [facility] Leukocyte esterase Test strip Ql (U) Negative Negative [facility] Nitrite Ql (U) Negative Negative [facility] pH (U) 8.0 [pH] [facility] Protein (U) [Mass/Vol] Trace Negat pollo-Tr dorie mg/dL [facility] RBC (U) [#/Vol] Trace Abnormal Negative [facility] Specific gravity (U) [Rel density] 1.017 1.010 - 1.025 [facility] Urobilinogen (U) [Mass/Vol] Normal Normal [facility] XR CHEST PORTABLEon 09-13-19 XR CHEST PORTABLE [...] / Irving Quintero Interpreting Provider: Irving Quintero [facility] XR HIP RIGHT 2 VIEWSon 09-12 XR [...] / Irving Quintero Interpreting Provider: Irving Quintero [facility] [place] XR Hip - right 2 Viewson IMPRESSION: [...] / Irving Quintero Interpreting Provider: Irving Quintero [facility] Radiology Study observation (narrative) [facility] PT/INR POINT OF CAREon 08-28 POC INR 2.3 [facility] Comment on above: Result Comment: For patients on oral anticoagulants, the therapeutic INR reference range is 2.0 to 3.5 PT/INR (POC Device) 27.3 seconds High 9.4-12.1 [facility]OT AND HAND CARE 023 Radiology Study observation (narrative) [facility] FOOT AND HAND [facility] 023 Anshul Mccormick DPM 08/26/2022 8:44 PM [...] affected nails with nail nipper and nail multifocal button grinder, width, length, and thickness to prevent [...] giving consent. Preparation: skin prepped with alcohol [facility] PT/INR POINT OF [facility] 08-07 POC INR 2.2 [facility] Comment on above: Result Comment: For patients on oral anticoagulants, the therapeutic INR reference range is 2.0 to 3.5 PT/INR (POC Device) 26.8 seconds High 9.4-12.1 [facility] CYSTOSCOPYon 08-02-2022 Radiology Study observation (narrative) [facility] CYSTOSCOPYon 07-31-2022 Neno Domínguez MD 08/02/2022 6:36 [...] was obtained. Does this procedure require a [place] Protocol? Yes. [place] Protocol is required. The patient was given [...] neg. F/u in 3 months for cysto. [facility] POCT URINE DIPSTICK AUTOMATE Don 07-31-2022 Amorphous sediment LM Ql (Urine sed) [facility] Appearance (U) clear [facility] Bacteria LM Ql (Urine sed) [facility] Bilirubin Ql (U) Negative [facility] Casts LM.LPF (Urine sed) [#/Area] [facility] Color (U) yellow [facility] Crystals LM Nom (Urine sed) [facility] Epithelial cells.squamous LM.HPF (Urine sed) [#/Area] [facility] H Flow cytometry specialist review Mark (Unsp spec) [Interp] [facility] Glucose Auto test strip (U) [Mass/Vol] Negative mg/dL [facility] Ketones [Mass/Vol] Negative mg/dL [facility] Leukocyte esterase Qn (U) [facility] Leukocyte esterase Test strip Ql (U) small [facility] Microscopic observation Gram stain Nom (Bronch spec) [facility] Nitrite Ql (U) Negative [facility] pH (U) 7.0 [pH] 5 - 7 [facility] Protein Ql (U) Negative mg/dL [facility] RBC LM.HPF (Urine sed) [#/Area] [facility] RBC Ql (U) mod [facility] Specific gravity (U) [Rel density] 1.010 1.001 - 1.035 [facility] Transitional cells LM Ql (Urine sed) [facility] Urobilinogen Qn (U) 0.2 [facility] WBC LM.HPF (Urine sed) [#/Area] [facility] PT/INR POINT OF CAREon 07-24 POC INR 2.0 [facility] Comment on above: Result Comment: For patients on oral anticoagulants, the therapeutic INR reference range is 2.0 to 3.5 PT/INR (POC Device) 24.0 seconds High 9.4-12.1 [facility] INVASIVE CARDIOVASCULAR PROC EDUREon 07-17-2022 INVASIVE CARDIOVASCULAR PROCEDURE ? 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 Images from the original result were not included. Mick Florence Donn Invasive Cardiology Cath Procedure Ordering Physician: JUAN WILSON Order #: [id number] Study Date: 07/13/2022 Patient Information Name MRN Description Mick Cottrell [id number] 81 y.o. male Location Name Address [address] [id number] Physicians Panel Physicians Referring Physician Case Authorizing [...] obtained. The patient was brought to the laborer electroplating and placed on the table. The planned [...] Wilson MD - 07/17/2022 4:20 PM Cardiac Bail Bondsman Attending Physician Statement and Signature I have [...] AM Medical History Prompt Yes/No Comments Date [place] Unanswered Hypertension Yes Stroke Yes 03/25/2011 Vascular Disease Unanswered COPD Yes Diabetes Yes Surgical History Prompt Yes/No Procedure Laterality Comments Date CABG Unanswered Coronary Artery Bypass Graft Tobacco Use Former; Cigarettes: Quit 07/05/1996; 1.50 packs/day for 45.[address]?: Ex-smoker ([id number]). Smokeless Tobacco: Former user of smokeless tobacco; Quit 07/05/1996; Types: Chew. (more content not included)... [facility] PROTIME-INRon 07-13-2022 INR Coag (PPP) [Relative time] 1.2 {INR} [facility] Comment on above: Result Comment: For Patients on oral anticoagulants, the therapeutic INR reference range is 2.0 to 3.5 PT Coag (PPP) [Time] 13.0 s High 9.4-12.1 [facility] INR Coag (Bld) [Relative time] 1.2 {INR} [facility] Comment on above: For Patients on oral anticoagulants, the therapeutic INR reference range is 2.0 to 3.5 Interpretation and review of laboratory results Abnormal [facility] PT Coag (PPP) [Time] 13.0 s High [facility] BASIC METABOLIC PANELon 06-23 Calcium [Mass/Vol] 9.8 mg/dL Normal 8.6-10.3 [facility] Chloride [Moles/Vol] 104 mmol/L Normal 98-107 [facility] [place] CO2 [Moles/Vol] 28 mmol/L Normal 23-29 [facility] [place] Creatinine [Mass/Vol] 1.25 mg/dL Normal 0.70-1.30 [facility] GFR/1.73 sq M.predicted among non-blacks MDRD (S/P/Bld) [Vol rate/Area] 58 mL/min/{1.73_m2} Low >=60 [facility] Comment on above: Result Comment: Repo rted eGFR is based on the CKD-EPI 2020 equation using creatinine, age, and sex. Glucose [Mass/Vol] 114 mg/dL High 70-105 [facility] [place] Osmolality [Osmolality] 292 mosm/kg Normal 280-300 [facility] Potassium [Moles/Vol] 3.5 mmol/L Normal 3.5-5.1 [facility] Sodium [Moles/Vol] 140 mmol/L Normal 136-145 [facility] Urea nitrogen [Mass/Vol] 17 mg/dL Normal 8-23 [facility] Urea nitrogen/Creatinine [Mass ratio] 14 mg/mg Normal 6-26 [facility] CBC AND ELECTRONIC DIFFon Basophils (Bld) [#/Vol] 0.0 10*3/uL Normal 0.0-0.2 [facility] Basophils/100 WBC (Bld) 0.3 % Normal [facility] Eosinophils (Bld) [#/Vol] 0.1 10*3/uL Normal 0.0-0.6 [facility] Eosinophils/100 WBC (Bld) 1.2 % Normal [facility] Hematocrit (Bld) [Volume fraction] 47.0 % Normal 37.5-50.1 [facility] Hemoglobin (Bld) [Mass/Vol] 15.2 g/dL Normal 12.9-16.9 [facility] Immature Grans % 0.2 % Normal [facility] Lymphocytes (Bld) [#/Vol] 1.2 10*3/uL Normal 0.6-4.6 [facility] Lymphocytes/100 WBC (Bld) 13.5 % Normal [facility] MCV (RBC) [Entitic vol] 96.9 fL Normal 83.0-100.0 [facility] Mean Cell Hgb 31.3 pg Normal 28.0-33.0 [facility] Mean Cell Hgb Conc 32.3 g/dL Normal 31.6-35.5 [facility] Monocytes (Bld) [#/Vol] 0.6 10*3/uL Normal 0.0-1.3 [facility] Monocytes/100 WBC (Bld) 7.2 % Normal [facility] Nucleated RBC 0 /100 WBC Normal [facility] Platelet mean volume (Bld) [Entitic vol] 11.5 fL Normal 9.4-12.4 [facility] Platelets (Bld) [#/Vol] 155 10*3/uL Normal 140-400 [facility] RBC (Bld) [#/Vol] 4.85 10*6/uL Normal 4.19-5.50 [facility] in [place] RBC Distribution 14.0 % Normal 11.5-14.5 [facility] Segs + Bands Auto 77.6 % Normal [facility] [place] Segs + Bands,Absolute Auto 6.9 K/uL Normal 1.6-8.9 [facility] WBC (Bld) [#/Vol] 8.9 10*3/uL Normal 4.3-11.1 [facility] PROTIME-INRon 07-05-2022 INR Coag (PPP) [Relative time] 2.0 {INR} Normal [facility] Comment on above: Result Comment: For Patients on oral anticoagulants, the therapeutic INR reference range is 2.0 to 3.5 PT Coag (PPP) [Time] 21.6 s High 9.4-12.1 [facility] PT/INR POINT OF CAREon 06-26 POC INR 2.6 [facility] Comment on above: Result Comment: For patients on oral anticoagulants, the therapeutic INR reference range is 2.0 to 3.5 PT/INR (POC Device) 30.9 seconds High 9.4-12.1 [facility].doppler Carotid arteries - bilateralon 06-15-2022 Carotid Duplex Patient Name: MICK COTTRELL Order Number: [id number] Procedure Date: 06/14/2022 Date: 1940 Age: [age] yrs Gender: Male Location: [facility] OP Room #: Handle Assembler: Marquez Simental RDCS Referring MD: Juan Wilson MD Reading MD: Percy Wheatley MD, [facility] Primary Indications: Bilateral carotid bruit Risk Factors [...] Duplex Patient Name: MICK COTTRELL Order Number: [id number] Procedure Date: 06/14/2022 Date: 1940 Age: [age] yrs Gender: Male Location: [facility] OP Room #: Handle Assembler: Marquez Simental RDCS Referring MD: Juan Wilson [...] 06/15/2022 2:23:54 PM with status of Final [facility] US.doppler Carotid arteries - bilateralOrdered By: Percy Wheatley on 06-15-2022 [facility] Work Phone: VASC DUPLEX CAROTID BILATERA Marquise 06-15-2022 VASC DUPLEX CAROTID BILATERAL Carotid Duplex Patient Name: MICK COTTRELL Order Number: [id number] Procedure Date: 06/14/2022 Date: 1940 Age: [age] yrs Gender: Male Location: [facility] OP Room #: Handle Assembler: Marquez Simental, RDCS Referring MD: Juan Wilson MD Reading [...] 06/15/2022 2:23:54 PM with status of Final Normal [facility] [place] Cardiac echo study Procedure on 06-14-2022 Ao peak colleen 2.90 m/s [facility] Ao VTI 67.200 cm [facility] AR Max Colleen 2.180 m/s [facility] AV LVOT peak gradient 8 mmHg [facility] AV mean gradient 19.00 mmHg [facility] AV peak gradient 34 mmHG [facility] AV regurgitation pressure 1/2 time 558.000 ms [facility] AV valve area 1.50 cm2 [facility] AV Velocity Ratio 0.48 [facility] KAT (continuity Vmax) 1.51 cm2 COUNTS [facility] KAT (continuity VTI) 1.50 cm2 [facility] Avg e' pk colleen 0.05 m/s [facility] Avg E/e' ratio 10.75 [facility] BP EF 67 % [facility] DI (Vmax) 0.48 [facility] DI (VTI) 0.48 m/2 [facility] e' lateral pk colleen 0.0600 m/s [facility] e' lateral pk colleen 0.06 m/s [facility] e' septal pk colleen 0.038 m/s [facility] e' septal pk colleen 0.04 m/s [facility] E/A ratio 0.47 [facility] [facility] E/e' lateral ratio 8.33 [facility] E/e' septal ratio 13.16 [facility] EF SP 2CH 65 [facility] EF SP 4CH 66 [facility] EST RAP 3.00 mmHg [facility] EST RVSP 22 mmHg [facility] FS 33 % 28 - 44 % [facility] IVS 1.16 cm [facility] LA AREA 2CH 17.000 cm2 [facility] LA area 4CH 16.500 cm2 [facility] LA ESV BP (MOD) 44 mL [facility] LA ESV SP 2CH (MOD) 45 mL [facility] LA ESV SP 4CH (MOD) 42 mL [facility] LA size 3.900 cm [facility] LV EDV BP 42 mL [facility] LV EDV SP 2CH 43 mL [facility] EDV SP 4CH 38 mL [facility] ESV BP 14 mL [facility] LV ESV SP 2CH 15 mL [facility] LV ESV SP 4CH 13 mL [facility] LV mass 195.84 g [facility] LV RWT 0.44 [facility] LV stroke volume BP (ml) 28 mL [facility] LVIDD 4.81 cm [facility] LVIDS 3.200 cm [facility] LVOT area 3.14 cm2 [facility] LVOT diameter 2.00 cm [facility] LV[facility] peak colleen 1.39 m/s [facility] peak VTI 32.200 cm [facility] stroke volume 101 cm3 [facility] Mr max colleen 3.550 m/s [facility] MV pk A colleen 1.070 m/s [facility] MV pk E colleen 0.50 m/s [facility] MV stenosis pressure 1/2 time 97 ms [facility] MV valve area p 1/2 method 2.27 cm2 [facility]SU AV VTI RATIO PRE STRESS 0.48 [facility] ECHO MR PEAK GRADIENT 50.000 mmHg [facility] Pulmonary artery end diastolic pressure 3.000 mmHg [facility] PV peak gradient 3 mmHg [facility] PV PK COLLEEN 0.836 m/s [facility] PW 1.05 cm [facility] RA area 4CH (MOD) 13.100 cm2 [facility] Right atrium volume 4 chamber method of disks 30 mL [facility] RV basal diam 3.700 cm [facility] RV long diam 6.300 cm [facility] RV mid diam 2.000 cm [facility] RV S' 12.600 cm/s [facility] Sinus 2.94 cm [facility] STJ 2.40 cm [facility] Stroke Volume 101 cm/mL [facility] TAPSE 1.890 cm [facility] TR pk grad 19 mmHg [facility] TR pk colleen 2.190 m/s [facility] Normal left ventricl e size and systolic [...] and technically difficult study. Imaging system used: [employer]. Indications Indications for study: other - LOPEZ. S/P AOV Repair . Wall Scoring Score Index: 1.00 The left ventricular wall motion is normal. [facility] Radiology Study observation (narrative) [facility] ECHOCARDIOGRAMon 06-14-2022 Echocardiography Normal left ventricl e size and systolic function. LVEF= 65-70%. Impaired relaxation/grade I LV diastolic dysfunction. Normal right ventricle size and systolic function. Bioprosthetic aortic valve with normal function without stenosis or regurgitation. No pulmonary hypertension. No significant change c/w 04/27/2021 study. Table formatting from the original result was not included. Images from the original result were not included. Facility [facility] Patient Information Patient Name Mick Cottrell Legal [...] Role Read Date Luisana Diego MD Echo [place] 06/14/2022 Wall Scoring Score Index: 1.00 The [...] window and tech (more content not included)... [facility] [place] NUC MYOCARD PERF STRESS MIBI PHARMon 06-14-2022 NUC MYOCARD PERF STRESS MIBI PHARM Mild apical-distal inferior/inferolatera l ischemia on perfusion study (SSS=SDS=4). No infarct on perfusion study. 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 Low normal stress LVEF, 54%. Pharmacological stress ECG positive for ischemia. Ordering provider notified via [employer] In-basket. Table formatting from the original result was not included. Images from the original result were not included. Facility [facility] Patient Information Patient Name Mick Cottrell Legal [...] positive for ischemia. Ordering provider notified via [employer] In-basket. Stress Findings ECG Baseline ECG is [...] Role Read Date Luisana Diego MD ECG [place], SPECT [place] 06/14/2022 Stress Measurements Peak Stress Vitals Peak [...] Performed Procedure Technologis (more content not included)... [facility] SPECT Heart perfusion at res t and W stress and W radionuclide IVOrdered By: Luisana Diego on 06-14-2022 % APHRMAX 63 % [employer] Phone: APHRMAX 139 bpm [employer] Phone: Estimated workload 1.0 METS [employer] Phone: Exercise duration (min) 4 min [employer] Phone: Exercise duration (sec) 0 sec [employer] Phone: Nuc Stress EF 54 % [employer] Phone: Peak DBP 60 mmHg [employer] Phone: Peak HR 87 bpm [facility] [employer] Phone: Peak SBP 118 mmHg [facility] [employer] Phone: Rate Pressure Product [id number] COUNTS INCLUDE 234 [facility]EDS AT THE [facility] [employer] Phone: ST Depression (mm) 1.2 mm [facility] [employer] Phone: [facility] [employer] Phone: SPECT Heart perfusion at res t and W stress and W radionuclide Destinee 06-14-2022 Mild apical-distal inferior/inferolatera l ischemia on perfusion study (SSS=SDS=4). No infarct on perfusion study. 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 Low normal stress LVEF, 54%. Pharmacological stress ECG positive for ischemia. Ordering provider notified via [employer] In-basket. Study Details Pharmacological nuclear stress test performed using 1-day protocol. Regadenoson infusion given over 10 seconds. Non-gated SPECT images obtained. Frame rate: 16 frames/sec. Imaging system used: [employer]. Stress Findings A pharmacological stress test was [...] is normal. CARDIOLOGY Radiology Study observation (narrative) [facility].doppler Carotid arteries - bilateralon 06-14-2022 Radiology Study observation (narrative) [facility] PT/INR POINT OF CARE 06-05 POC INR 2.2 [facility] Comment on above: Result Comment: For patients on oral anticoagulants, the therapeutic INR reference range is 2.0 to 3.5 PT/INR (POC Device) 25.8 seconds High 9.4-12.1 [facility] PT/INR POINT OF CARE 05-22 POC INR 2.2 [facility] Comment on above: Result Comment: For patients on oral anticoagulants, the therapeutic INR reference range is 2.0 to 3.5 PT/INR (POC Device) 26.8 seconds High 9.4-12.1 [facility] No Panel Informationon 05-18 Juan Wilson MD 05/18/2022 11:45 AM NSR at [address] deviations in inferior and lateral leads [facility] Juan Wilson MD - 05/18/2022 11:20 AM EST NSR at [address] deviations in inferior and lateral leads [facility] PT/INR POINT OF CAREon 05-15 POC INR 2.9 [facility] Comment on above: Result Comment: For patients on oral anticoagulants, the therapeutic INR reference range is 2.0 to 3.5 PT/INR (POC Device) 35.2 seconds High 9.4-12.1 [facility] PT/INR POINT OF [facility] 05-08 POC INR 3.4 Normal [facility] Comment on above: Result Comment: For patients on oral anticoagulants, the therapeutic INR reference range is 2.0 to 3.5 PT/INR (POC Device) 41.3 seconds High 9.4-12.1 [facility] PT/INR POINT OF CARE 05-04 POC INR 2.4 Normal [facility] Comment on above: Result Comment: For patients on oral anticoagulants, the therapeutic INR reference range is 2.0 to 3.5 PT/INR (POC Device) 29.2 seconds High 9.4-12.1 [facility] PT/INR POINT OF CARE 05-02 POC INR 1.2 Normal [facility] Comment on above: Result Comment: For patients on oral anticoagulants, the therapeutic INR reference range is 2.0 to 3.5 PT/INR (POC Device) 13.9 seconds High 9.4-12.1 [facility] AMYLASEon 04-28-2022 Amylase [Catalytic activity/Vol] 22 U/L Low 29-103 [facility] Amylase [Catalytic activity/Vol] 22 U/L Low 29 - 103 U/L [facility] BASIC METABOLIC PANELon Calcium [Mass/Vol] 9.4 mg/dL Normal 8.6-10.3 [facility] Chloride [Moles/Vol] 104 mmol/L Normal 98-107 [facility] CO2 [Moles/Vol] 29 mmol/L Normal 23-29 [facility] Creatinine [Mass/Vol] 1.13 mg/dL Normal 0.70-1.30 [facility] GFR/1.73 sq M.predicted among non-blacks MDRD (S/P/Bld) [Vol rate/Area] 65 mL/min/{1.73_m2} Normal >=60 [facility] Comment on above: Result Comment: Repo rted eGFR is based on the CKD-EPI 202 equation using creatinine, age, and sex. Glucose [Mass/Vol] 177 mg/dL High 70-105 [facility] [place] Osmolality [Osmolality] 294 mosm/kg Normal 280-300 [facility] Potassium [Moles/Vol] 3.8 mmol/L Normal 3.5-5.1 [facility] Sodium [Moles/Vol] 140 mmol/L Normal 136-145 [facility] Urea nitrogen [Mass/Vol] 12 mg/dL Normal 8-23 [facility] Urea nitrogen/Creatinine [Mass ratio] 11 mg/mg Normal 6-26 [facility] Calcium [Mass/Vol] 9.4 mg/dL 8.6 - 10. 3 mg/dL [facility] Chloride [Moles/Vol] 104 mmol/L 98 - 10 7 mmol/L [facility] CO2 [Moles/Vol] 29 mmol/L 23 - 29 mmol/L [facility] Creatinine [Mass/Vol] 1.13 mg/dL 0.70 - 1.30 mg/dL [facility] GFR/1.73 sq M.predicted CKD-EPI (S/P/Bld) [Vol rate/Area] 65 - PINF [facility] Comment on above: Reported eGFR is bas ed on the CKD-EPI 2021 equation using creatinine, age, and sex. Glucose [Mass/Vol] 177 mg/dL High 70 - 105 mg/dL [facility] Osmolality Calc [Osmolality] 294 280 - 300 [facility] Potassium [Moles/Vol] 3.8 mmol/L 3.5 - 5.1 mmol/L [facility] Sodium [Moles/Vol] 140 mmol/L 136 - 145 mmol/L [facility] Urea nitrogen [Mass/Vol] 12 mg/dL 8 - 23 mg/dL [facility] Urea nitrogen/Creatinine [Mass ratio] 11 mg/mg 6 - [facility] CBC AND ELECTRONIC DIFFon Basophils (Bld) [#/Vol] 0.0 10*3/uL Normal 0.0-0.2 [facility] in [place] Basophils/100 WBC (Bld) 0.3 % Normal [facility] [place] Eosinophils (Bld) [#/Vol] 0.0 10*3/uL Normal 0.0-0.6 [facility] [place] Eosinophils/100 WBC (Bld) 0.4 % Normal [facility] [place] Hematocrit (Bld) [Volume fraction] 41.5 % Normal 37.5-50.1 [facility] [place] Hemoglobin (Bld) [Mass/Vol] 13.4 g/dL Normal 12.9-16.9 [facility] [place] Immature Grans % 0.3 % Normal [facility] [place] Immature Plt Fraction % 7.1 % High 1.1-6.1 [facility] [place] Lymphocytes (Bld) [#/Vol] 0.6 10*3/uL Normal 0.6-4.6 [facility] [place] Lymphocytes/100 WBC (Bld) 7.9 % Normal [facility] [place] MCV (RBC) [Entitic vol] 97.9 fL Normal 83.0-100.0 [facility] [place] Mean Cell Hgb 31.6 pg Normal 28.0-33.0 [facility] Mean Cell Hgb Conc 32.3 g/dL Normal 31.6-35.5 [facility] [place] Monocytes (Bld) [#/Vol] 0.4 10*3/uL Normal 0.0-1.3 [facility] [place] Monocytes/100 WBC (Bld) 5.0 % Normal [facility] [place] Nucleated RBC 0 /100 WBC Normal [facility] [place] Platelet mean volume (Bld) [Entitic vol] 11.5 fL Normal 9.4-12.4 [facility] [place] Platelets (Bld) [#/Vol] 93 10*3/uL Low 140-400 [facility] [place] RBC (Bld) [#/Vol] 4.24 10*6/uL Normal 4.19-5.50 [facility] in [place] RBC Distribution 14.1 % Normal 11.5-14.5 [facility] Segs + Bands Auto 86.1 % Normal [facility] Segs + Bands,Absolute Auto 6.1 K/uL Normal 1.6-8.9 [facility] WBC (Bld) [#/Vol] 7.1 10*3/uL Normal 4.3-11.1 [facility] CBC AND ELECTRONIC DIFFOrder ed By: Yesica Villagomez on 04-28-2022 Basophils (Bld) [#/Vol] 0.0 10*3/uL 0.0 - 0.2 K/uL [facility] Basophils/100 WBC (Bld) 0.3 % [facility] Eosinophils (Bld) [#/Vol] 0.0 10*3/uL 0.0 - 0.6 K/uL [facility] Eosinophils/100 WBC (Bld) 0.4 % [facility] Erythrocyte distribution width (RBC) [Ratio] 14.1 % 11.5 - 14.5 % [facility] Hematocrit (Bld) [Volume fraction] 41.5 % 37.5 - 50.1 % [facility] Hemoglobin (Bld) [Mass/Vol] 13.4 g/dL 12.9 - 16.9 g/dL [facility] Immature granulocytes/100 WBC (Bld) 0.3 % [facility] Immature Plt Fraction % 7.1 % High 1.1 - 6.1 % [facility] Interpretation and review of laboratory results Abnormal [facility] Lymphocytes (Bld) [#/Vol] 0.6 10*3/uL 0.6 - 4.6 K/uL [facility] Lymphocytes/100 WBC (Bld) 7.9 % [facility] MCH (RBC) [Entitic mass] 31.6 pg 28.0 - 33.0 pg [facility] MCHC (RBC) [Mass/Vol] 32.3 g/dL 31.6 - 35.5 g/dL [facility] MCV (RBC) [Entitic vol] 97.9 fL 83.0 - 100.0 fL [facility] Monocytes (Bld) [#/Vol] 0.4 10*3/uL 0.0 - 1.3 K/uL [facility] Monocytes/100 WBC (Bld) 5.0 % [facility] Neutrophils (Bld) [#/Vol] 6.1 10*3/uL 1.6 - 8.9 K/uL [facility] Nucleated RBC/100 WBC (Bld) [Ratio] 0 % /100 WBC [facility] Platelet mean volume (Bld) [Entitic vol] 11.5 fL 9.4 - 12.4 fL [facility] Platelets (Bld) [#/Vol] 93 10*3/uL Low 140 - 400 K/uL [facility] RBC (Bld) [#/Vol] 4.24 10*6/uL [facility] Segmented neutrophils/100 WBC (Bld) 86.1 % [facility] WBC (Bld) [#/Vol] 7.1 10*3/uL 4.3 - 11.1 K/uL [facility] CT ABDOMEN/PELVIS WITHOUT CO NTRASTon 04-28-2022 CT [...] hernia containing some herniation of colonic diverticuli. [facility] IMPRESSION: No acute process identified. Normal [...] hernia containing some herniation of colonic diverticuli. [employer] Radiology Study observation (narrative) [facility] CT Abdomen and Pelvis WO con trastOrdered By: Hyacinth Lopez on 04-28-2022 [employer] [facility] Work Phone: HEPATIC FUNCTION PANELon Albumin [Mass/Vol] 4.0 g/dL Normal 3.5-5.7 [facility] in [place] Albumin/Globulin [Mass ratio] 1.8 {ratio} Normal 1.1-2.2 [facility] ALP [Catalytic activity/Vol] 103 U/L Normal 34-104 [facility] [place] ALT [Catalytic activity/Vol] 47 U/L Normal 7-52 [facility] [place] AST [Catalytic activity/Vol] 33 U/L Normal 13-39 [facility] [place] Bilirubin [Mass/Vol] 0.7 mg/dL Normal 0.3-1.0 [facility] [place] Bilirubin, Indirect 0.6 mg/dL Normal 0.0-1.0 [facility] in [place] Bilirubin.indirect [Mass/Vol] 0.1 mg/dL Normal <=0.2 [facility] [place] Globulin (S) [Mass/Vol] 2.2 g/dL Low 2.4-3.5 [facility] Protein [Mass/Vol] 6.2 g/dL Low 6.4-8.9 [facility] [place] Albumin [Mass/Vol] 4.0 g/dL 3.5 - 5.7 g/dL [facility] Albumin/Globulin [Mass ratio] 1.8 {ratio} 1.1 - 2.2 [facility] ALP [Catalytic activity/Vol] 103 U/L 34 - 104 U/L [facility] ALT [Catalytic activity/Vol] 47 U/L 7 - 52 U/L [facility] AST [Catalytic activity/Vol] 33 U/L 13 - 39 U/L [facility] Bilirubin [Mass/Vol] 0.7 mg/dL 0.3 - 1 .0 mg/dL [facility] Bilirubin, Indirect 0.6 mg/dL 0.0 - 1. 0 mg/dL [facility] Bilirubin.direct [Mass/Vol] 0.1 mg/dL NINF - 0.2 mg/dL [facility] Globulin (S) [Mass/Vol] 2.2 g/dL Low 2.4 - 3.5 g/dL [facility] Protein [Mass/Vol] 6.2 g/dL Low 6.4 - 8.9 g/dL [facility] LIPASEon 04-28-2022 Lipase [Catalytic activity/Vol] 20 U/L Normal 82 [facility] [place] Interpretation and review of laboratory results Normal [facility] Lipase [Catalytic activity/Vol] 20 U/L 82 U/L [facility] No Panel Informationon 04-28 Interpretation and review of laboratory results Abnormal [facility] URINE DIPSTICK WITH REFLEX M ICROSCOPYon 04-28-2022 Appearance (U) Turbid Abnormal Clear [facility] [place] Bacteria, Urine Few Normal None-Few [facility] [place] Bilirubin Ql (U) Negative Normal Negative [facility] [place] Blood Urine Moderate Abnormal Negative [facility] [place] Color (U) Light Yellow Normal Yellow [facility] [place] Glucose Ql (U) Normal Normal Normal [facility] [place] Hyaline casts LM Ql (Urine sed) Few Abnormal None Seen [facility] [place] Ketones Ql (U) Negative Normal Negative [facility] [place] Leukocyte esterase Test strip Ql (U) Negative Normal Negative [facility] [place] Mucus, Urine Few Normal None-Few [facility] [place] Nitrites Urine Negative Normal Negative [facility] [place] pH Urine 7.5 pH Units Normal 5.0-8.0 [facility] [place] Protein Urine Trace Normal Negative-Tr dorie [facility] [place] RBC Urine TNTC Abnormal 0-3/HPF [facility] [place] Specific [place] Urine 1.011 Normal 1.010-1.025 [facility] in [place] Urobilinogen Urine Normal Normal Normal [facility] [place] WBC Urine 5-15 Abnormal 0-3/HPF [facility] [place] Appearance (U) Turbid Abnormal Clear [facility] Bacteria LM Ql (Urine sed) Few None-Few [facility] Bilirubin Ql (U) Negative Negative [facility] Color (U) Light Yellow Yellow [facility] Glucose Test strip (U) [Mass/Vol] Normal Normal [facility] Hyaline casts (Urine sed) [#/Area] Few Abnormal None Seen /LPF [facility] Interpretation and review of laboratory results Abnormal [facility] Ketones (U) [Mass/Vol] Negative Negative [facility] Leukocyte esterase Test strip Ql (U) Negative Negative [facility] Mucus Ql (Urine sed) Few None-Few [facility] Nitrite Ql (U) Negative Negative [facility] pH (U) 7.5 [pH] [facility] Protein (U) [Mass/Vol] Trace Negat pollo-Tr dorie mg/dL [facility] RBC (U) [#/Vol] Moderate Abnormal Negative [facility] RBC LM.HPF (Urine sed) [#/Area] TNTC Abnormal 0-3/HPF /HPF [facility] Specific gravity (U) [Rel density] 1.011 1.010 - 1.025 [facility] Urobilinogen (U) [Mass/Vol] Normal Normal [facility] WBC LM.HPF (Urine sed) [#/Area] 5-15 Abnormal 0-3/HPF /HPF [facility] GLUCOSE POCon 04-26-2022 Glucose [Mass/Vol] 155 mg/dL High 70-99 [facility] Glucose [Mass/Vol] 149 mg/dL High 70-99 [facility] Glucose [Mass/Vol] 155 mg/dL High 70 - 99 mg/dL [facility] Interpretation and review of laboratory results Abnormal [facility] Glucose [Mass/Vol] 149 mg/dL High 70 - 99 mg/dL [facility] Interpretation and review of laboratory results Abnormal [facility] SURG PATH REQUESTon 04-26-19 Case Report [facility] Comment on above: Result Comment: Surg ica Pathology Report Case: [id number] Authorizing Provider: Neno Domínguez MD Collected: 04/26/2022 09:59 AM Ordering Location: [facility] Received: 04/26/2022 04:52 PM Pathologist: [...] TIA, diabetes mellitus, type 2, and HLD. [facility] [place] Gross Description [facility] Comment on above: Result Comment: The specimen is received in one properly labeled container with the patient's name and accession number. A. 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 TE 1 Lab Use Only: JobID [id number] Grosser for this case was: Santana Riggs For Immediate Release to Patient's MyChart? No Microscopic Description A microscopic examination was performed. [facility] Pathologic Diagnosis [facility] Comment on above: Result Comment: AClarence Arreola ladder, tumor, transurethral resection: Non-invasive papillary urothelial carcinoma, low-grade No definitive evidence of lamina propria invasion identified Muscularis propria is absent Note: Select slides were reviewed by Dr. Cynthia Young. Basic Metabolic Panel (COPC) on 04-23-2022 Anion gap [Moles/Vol] 9 mmol/L Normal 5-15 [facility] Comment on above: Order Comment: Items in this order include: Basic Metabolic Panel, HgbA1C Testing Performed By: [facility] Primary [facility] [address] [place] [address] CLIA#:[id number] [address] Hannah Richard, Heat Treat Supervisor Performed By: #### C 45, C406 #### [facility] [address] [place] [address] B/C Ratio 11.7 Ratio Normal 10.0-28.6 [facility] Comment on above: Order Comment: Items in this order include: Basic Metabolic Panel, HgbA1C Testing Performed By: [facility] [address] [place] [address] CLIA#:[id number] [address] Hannah Richard, Heat Treat Supervisor Performed By: #### C 45, C406 #### [facility] [address] [place] [address] Calcium [Mass/Vol] 9.6 mg/dL Normal 8.3-10.6 [facility] Comment on above: Order Comment: Items in this order include: Basic Metabolic Panel, HgbA1C Testing Performed By: [facility] [address] [place] [address] CLIA#:[id number] [address] Hannah Richard, Heat Treat Supervisor Performed By: #### C 45, C406 #### [facility] [address] [place] [address] Chloride [Moles/Vol] 104 mmol/L Normal 98-107 [facility] Comment on above: Order Comment: Items in this order include: Basic Metabolic Panel, HgbA1C Testing Performed By: [facility] [address] [place] [address] CLIA#:[id number] [address] Hannah Richard, Heat Treat Supervisor Performed By: #### C 45, C406 #### [facility] [address] [place] [address] CO2 [Moles/Vol] 27 mmol/L Normal 20-31 [facility] Comment on above: Order Comment: Items in this order include: Basic Metabolic Panel, HgbA1C Testing Performed By: [facility] [address] [place] [address] CLIA#:[id number] [address] Hannah Richard, Heat Treat Supervisor Performed By: #### C 45, C406 #### [facility] [address] [place] [address] Creatinine [Mass/Vol] 1.2 mg/dL Normal 0.7-1.3 [facility] Comment on above: Order Comment: Items in this order include: Basic Metabolic Panel, HgbA1C Testing Performed By: [facility] [address] [place] [address] CLIA#:[id number] [address] Hannah Richard, Heat Treat Supervisor Performed By: #### C 45, C406 #### [facility] [address] [place] [address] GFRCKD 61 mL/min per 1.73 Normal >60 [facility] Comment on above: Order Comment: Items in this order include: Basic Metabolic Panel, HgbA1C Testing Performed By: [facility] [address] [place] [address] CLIA#:[id number] [address] Hannah Richard, Heat Treat Supervisor Result Comment: The GFR estimate is not adjusted for race. Performed By: #### C 45, C406 #### [facility] [address] [place] [address] Glucose [Mass/Vol] 210 mg/dL High 74-106 [facility] Comment on above: Order Comment: Items in this order include: Basic Metabolic Panel, HgbA1C Testing Performed By: [facility] [address] [place] [address] CLIA#:[id number] [address] Hannah Richard, Heat Treat Supervisor Performed By: #### C 45, C406 #### [facility] [address] [place] [address] Potassium [Moles/Vol] 4.0 mmol/L Normal 3.5-5.1 [facility] Comment on above: Order Comment: Items in this order include: Basic Metabolic Panel, HgbA1C Testing Performed By: [facility] [address] [place] [address] CLIA#:[id number] Dr[address] Hannah Richard, Heat Treat Supervisor Performed By: #### C 45, C406 #### [facility] [address] [place] [address] Sodium [Moles/Vol] 140 mmol/L Normal 136-145 [facility] Comment on above: Order Comment: Items in this order include: Basic Metabolic Panel, HgbA1C Testing Performed By: [facility] [address] [place] [address] CLIA#:[id number] [address] Hannah Richard, Heat Treat Supervisor Performed By: #### C 45, C406 #### [facility] [address] [place] [address] Urea nitrogen [Mass/Vol] 14 mg/dL Normal 9-23 [facility] Comment on above: Order Comment: Items in this order include: Basic Metabolic Panel, HgbA1C Testing Performed By: [facility] [address] [place] [address] CLIA#:[id number] Dr[address] Hannah Richard, Heat Treat Supervisor Performed By: #### C 45, C406 #### [facility] [address] [place] [address] HgbA1C (COPC)on 04-23-2022 HbA1c (Bld) [Mass fraction] 6.1 % High <5.7 [facility] Comment on above: Order Comment: Items in this order include: Basic Metabolic Panel, HgbA1C Testing Performed By: [facility] [address] [place] [address] CLIA#:[id number] [address] Hannah Richard, Heat Treat Supervisor Result Comment: Refe rence Interval: Normal: below 5.7%. Prediabetes: 5.7% to 6.4%. Diabetes: 6.5% or above. Performed By: #### C 45, C406 #### [facility] [address] [place] [address] Urine, Random, Albumin/Crea (COPC)on 04-23-2022 Albumin DL <= 20 mg/L (U) [Mass/Vol] 0.8 mg/dL Normal [facility] Comment on above: Order Comment: Items in this order include: Urine, Random, Albumin/Crea Testing Performed By: [facility] [address] [place] [address] CLIA#:[id number] [address] Hannah Richard, Heat Treat Supervisor Performed By: #### C 80 #### [facility] [address] [place] [address] Creatinine (U) [Mass/Vol] 118.7 mg/dL Normal 22.0-328.0 [facility] Comment on above: Order Comment: Items in this order include: Urine, Random, Albumin/Crea Testing Performed By: [facility] [address] [place] [address] CLIA#:[id number] [address]. Hannah Richard, Heat Treat Supervisor Performed By: #### C 80 #### [facility] [address] [place] [address] Urine Microalb/ Creat Ratio 6.7 mcg/mg creat Normal 0.0-29.9 [facility] Comment on above: Order Comment: Items in this order include: Urine, Random, Albumin/Crea Testing Performed By: [facility] [address] [place] [address] CLIA#:[id number] [address]. Hannah Richard, Heat Treat Supervisor Result Comment: The ADA (Diabetes Care 26:s94-s98,2003) defines abnormalities in albumin excretion as follows: Category Result (mcg/mg creatinine) Normal <30 Microalbuminuria 30-299 Clinical Albuminuria > or =300 The ADA recommends that at least two of three specimens collected within a 3-6 month period be abnormal before considering a patient to be within a diagnostics category. Performed By: #### C 80 #### [facility] [address] [place] [address] PT/INR POINT OF CAREon 04-19 POC INR 2.8 Normal [facility] Comment on above: Result Comment: For patients on oral anticoagulants, the therapeutic INR reference range is 2.0 to 3.5 POC PT 33.8 seconds High 9.4-12.1 [facility] PT/INR POINT OF CAREon 04-10 POC INR 2.6 Normal [facility] Comment on above: Result Comment: For patients on oral anticoagulants, the therapeutic INR reference range is 2.0 to 3.5 POC PT 31.0 seconds High 9.4-12.1 [facility] CYSTOSCOPYon 04-05-2022 Neno Domínguez MD 04/05/2022 12:10 [...] was obtained. Does this procedure require a [place] Protocol? Yes. [place] Protocol is required. The patient was given [...] be scheduled for TURBT in the OR [facility] Radiology Study observation (narrative) [facility] PT/INR POINT OF CAREon 04-03 POC INR 2.3 [facility] Comment on above: Result Comment: For patients on oral anticoagulants, the therapeutic INR reference range is 2.0 to 3.5 POC PT 27.7 seconds High 9.4-12.1 [facility] PT/INR POINT OF CAREon 03-27 POC INR 3.1 [facility] Comment on above: Result Comment: For patients on oral anticoagulants, the therapeutic INR reference range is 2.0 to 3.5 POC PT 37.7 seconds High 9.4-12.1 [facility] PT/INR POINT OF CAREon 03-20 POC INR 1.8 Normal [facility] Comment on above: Result Comment: For patients on oral anticoagulants, the therapeutic INR reference range is 2.0 to 3.5 POC PT 21.4 seconds High 9.4-12.1 [facility] [address] [address] [facility] Signed PRELIMINARY DRAFT REPORT UNTIL ELECTRONICALLY SIGNED PATIENT: Mick Cottrell MR#: [id number] : 1940 AGE/SEX: 81 / M ADMITTED: 01/16/22 OUTSIDE LOCN: LOCATION: [facility] ATTENDING: Grace Gtz MD cc: ; [...] Diandra Arechiga Signed By: 01/16/22 1028 DD/ 102 Initialized By: [id number] [facility] Capillary whole blood prothr ombin time (PT)on 01-16-2022 PT Coag (BldC) [Time] 27.5 seconds High 9.4-12.1 [employer] Work Phone: POC PT and INR (office)on 01-16-2022 POC INR Result (office) 2.3 Normal [facility] Comment on above: Result Comment: For patients on oral anticoagulants, the therapeutic INR reference range is 2.0 to 3.5 Performed By: #### L IP, HEPATIC, BMP, ROSSY #### [facility] [address] [place] [address] POC PT Result (office) 27.5 seconds High 9.4-12.1 [facility] Comment on above: Performed By: #### L IP, HEPATIC, BMP, ROSSY #### [facility] [address] [place] [address] Whole blood INR measuremento n 01-16-2022 INR Coag (Bld) [Relative time] 2.3 {INR} [employer] Work Phone: Comment on above: For patients on oral anticoagulants, the therapeutic INR reference range is 2.0 to 3.5 [facility] [address] [address] [facility] Signed PRELIMINARY DRAFT REPORT UNTIL ELECTRONICALLY SIGNED PATIENT: Mick Cottrell MR#: [id number] : 1940 AGE/SEX: 81 / M ADMITTED: 01/09/22 OUTSIDE LOCN: LOCATION: [facility] ATTENDING: Grace Gtz MD cc: ; [...] By: 01/09/22 1048 DD/ 1046 Initialized By: [id number] [facility] POC PT and INR (office)on 01-09-2022 POC INR Result (office) 1.8 Normal [facility] Comment on above: Result Comment: For patients on oral anticoagulants, the therapeutic INR reference range is 2.0 to 3.5 Performed By: #### L IP, HEPATIC, BMP, ROSSY #### [facility] [address] [place] [address] POC PT Result (office) 22.2 seconds High 9.4-12.1 [facility] Comment on above: Performed By: #### L IP, HEPATIC, BMP, ROSSY #### [facility] [address] [place] [address] [facility] [address] [address] [facility] Signed PRELIMINARY DRAFT REPORT UNTIL ELECTRONICALLY SIGNED PATIENT: Mick Cottrell MR#: [id number] : 1940 AGE/SEX: 81 / M ADMITTED: 01/02/22 OUTSIDE LOCN: LOCATION: [facility] ATTENDING: Grace Gtz MD cc: ; [...] By: 01/02/22 1111 DD/ 1110 Initialized By: [id number] [facility] POC PT and INR (office)on 01-02-2022 POC INR Result (office) 1.9 Normal [facility] Comment on above: Result Comment: For patients on oral anticoagulants, the therapeutic INR reference range is 2.0 to 3.5 Performed By: #### L IP, HEPATIC, BMP, ROSSY #### [facility] [address] [place] [address] POC PT Result (office) 23.0 seconds High 9.4-12.1 [facility] Comment on above: Performed By: #### L IP, HEPATIC, BMP, ROSSY #### [facility] [address] [place], [place] [id number] POC PT and INR (office)on 12-13-2021 POC INR Result (office) 2.5 Normal [facility] Comment on above: Result Comment: For patients on oral anticoagulants, the therapeutic INR reference range is 2.0 to 3.5 Performed By: #### B MP #### [facility] [address] [place] [address] POC PT Result (office) 29.8 seconds High 9.4-12.1 [facility] Comment on above: Performed By: #### B MP #### [facility] [address] [place] [address] [facility] [address] [address] [facility] Signed PRELIMINARY DRAFT REPORT UNTIL ELECTRONICALLY SIGNED PATIENT: Mick Cottrell MR#: [id number] : 1940 AGE/SEX: 81 / M ADMITTED: 12/12/21 OUTSIDE LOCN: LOCATION: [facility] ATTENDING: Grace Gtz MD cc: ; [...] 12/12/21 1053 12/12/21 DD/ 1048 Initialized By: [id number] [facility] Basic Metabolic Panelon 11-23 Anion gap [Moles/Vol] 10 mmol/L Normal 5-15 [facility] Comment on above: Order Comment: Items in this order include: Basic Metabolic Panel, Vit D 25 [place] (Total), CBC with differential, HgbA1C, Testing Performed By: [facility] [address] [place] [address] CLIA#:[id number] [address] Hannah Richard, Heat Treat Supervisor Performed By: #### C 215, C406, C3763, C45 #### [facility] [address] [place] [address] B/C Ratio 13.1 Ratio Normal 10.0-28.6 [facility] Comment on above: Order Comment: Items in this order include: Basic Metabolic Panel, Vit D 25 [place] (Total), CBC with differential, HgbA1C, Testing Performed By: [facility] [address] [place] [address] CLIA#:[id number] [address] Hannah Richard, Heat Treat Supervisor Performed By: #### C 215, C406, C3763, C45 #### [facility] [address] [place] [address] Calcium [Mass/Vol] 9.1 mg/dL Normal 8.3-10.6 [facility] Comment on above: Order Comment: Items in this order include: Basic Metabolic Panel, Vit D 25 [place] (Total), CBC with differential, HgbA1C, Testing Performed By: [facility] [address] [place] [address] CLIA#:[id number] [address] Hannah Richard, Heat Treat Supervisor Performed By: #### C 215, C406, C3763, C45 #### [facility] [address] [place] [address] Chloride [Moles/Vol] 105 mmol/L Normal 98-107 [facility] Comment on above: Order Comment: Items in this order include: Basic Metabolic Panel, Vit D 25 [place] (Total), CBC with differential, HgbA1C, Testing Performed By: [facility] [address] [place] [address] CLIA#:[id number] [address] Hannah Richard, Heat Treat Supervisor Performed By: #### C 215, C406, C3763, C45 #### [facility] [address] [place] [address] CO2 [Moles/Vol] 27 mmol/L Normal 20-31 [facility] Comment on above: Order Comment: Items in this order include: Basic Metabolic Panel, Vit D 25 [place] (Total), CBC with differential, HgbA1C, Testing Performed By: [facility] [address] [place] [address] CLIA#:[id number] [address] Hannah Richard, Heat Treat Supervisor Performed By: #### C 215, C406, C3763, C45 #### [facility] [address] [place] [address] Creatinine [Mass/Vol] 1.3 mg/dL Normal 0.7-1.3 [facility] Comment on above: Order Comment: Items in this order include: Basic Metabolic Panel, Vit D 25 [place] (Total), CBC with differential, HgbA1C, Testing Performed By: [facility] [address] [place] [address] CLIA#:[id number] [address] Hannah Richard, Heat Treat Supervisor Performed By: #### C 215, C406, C3763, C45 #### [facility] [address] [place] [address] GFR 53 mL/min per 1.73 Low >60 [facility] Comment on above: Order Comment: Items in this order include: Basic Metabolic Panel, Vit D 25 [place] (Total), CBC with differential, HgbA1C, Testing Performed By: [facility] [address] [place] [address] CLIA#:[id number] [address] Hannah Richard, Heat Treat Supervisor Result Comment: The GFR estimate is not adjusted for race. If the patient's race is -Y[place]i, the GFR estimate must be multiplied by a factor of 1.21. Performed By: #### C 215, C406, C3763, C45 #### [facility] [address] [place] [address] Glucose [Mass/Vol] 169 mg/dL High 74-106 [facility] Comment on above: Order Comment: Items in this order include: Basic Metabolic Panel, Vit D 25 [place] (Total), CBC with differential, HgbA1C, Testing Performed By: [facility] [address] [place] [address] CLIA#:[id number] [address] Hannah Richard, Heat Treat Supervisor Performed By: #### C 215, C406, C3763, C45 #### [facility] [address] [place] [address] Potassium [Moles/Vol] 4.5 mmol/L Normal 3.5-5.1 [facility] Comment on above: Order Comment: Items in this order include: Basic Metabolic Panel, Vit D 25 [place] (Total), CBC with differential, HgbA1C, Testing Performed By: [facility] [address] [place] [address] CLIA#:[id number] Dr. Hannah Richard, Heat Treat Supervisor Performed By: #### C 215, C406, C3763, C45 #### [facility] [address] [place] [address] Sodium [Moles/Vol] 142 mmol/L Normal 136-145 [facility] Comment on above: Order Comment: Items in this order include: Basic Metabolic Panel, Vit D 25 [place] (Total), CBC with differential, HgbA1C, Testing Performed By: [facility] [address] [place] [address] CLIA#:[id number] [address] Hannah Richard, Heat Treat Supervisor Performed By: #### C 215, C406, C3763, C45 #### [facility] [place] [address] Urea nitrogen [Mass/Vol] 17 mg/dL Normal 9-23 [facility] Comment on above: Order Comment: Items in this order include: Basic Metabolic Panel, Vit D 25 [place] (Total), CBC with differential, HgbA1C, Testing Performed By: [facility] [address] [place] [address] CLIA#:[id number] Dr. Hannah Richard, Heat Treat Supervisor Performed By: #### C 215, C406, C3763, C45 #### [facility] [address] [place] [address] CBC with differentialon 11-23 BASO # 0.0 K CUMM Normal 0.0-0.2 [facility] Comment on above: Order Comment: Items in this order include: Basic Metabolic Panel, Vit D 25 [place] (Total), CBC with differential, HgbA1C, Testing Performed By: [facility] [address] [place] [address] CLIA#:[id number] Dr. Hannah Richard, Heat Treat Supervisor Performed By: #### C 215, C406, C3763, C45 #### [facility] [address] [place] [address] Basophils/100 WBC (Bld) 0.5 % Normal 0.0-3.0 [facility] Comment on above: Order Comment: Items in this order include: Basic Metabolic Panel, Vit D 25 [place] (Total), CBC with differential, HgbA1C, Testing Performed By: [facility] [address] [place] [address] CLIA#:[id number] Dr. Hannah Richard, Heat Treat Supervisor Performed By: #### C 215, C406, C3763, C45 #### [facility] [address] [place] [address] EOS # 0.3 K CUMM Normal 0.0-0.4 [facility] Comment on above: Order Comment: Items in this order include: Basic Metabolic Panel, Vit D 25 [place] (Total), CBC with differential, HgbA1C, Testing Performed By: [facility] [address] [place] [address] CLIA#:[id number] Dr. Hannah Richard, Heat Treat Supervisor Performed By: #### C 215, C406, C3763, C45 #### [facility] [address] [place] [address] [address] [place] [address] Eosinophils/100 WBC (Bld) 4.0 % Normal 0.0-7.0 [facility] Comment on above: Order Comment: Items in this order include: Basic Metabolic Panel, Vit D 25 [place] (Total), CBC with differential, HgbA1C, Testing Performed By: [facility] [address] [place] [address] CLIA#:[id number] Dr. Hannah Richard, Heat Treat Supervisor Performed By: #### C 215, C406, C3763, C45 #### [facility] [address] [place] [address] Erythrocyte distribution width (RBC) [Ratio] 14.8 % Normal 11.5-15.5 [facility] Comment on above: Order Comment: Items in this order include: Basic Metabolic Panel, Vit D 25 [place] (Total), CBC with differential, HgbA1C, Testing Performed By: [facility] [address] [place] [address] CLIA#:[id number] [address] Hannah Richard, Heat Treat Supervisor Performed By: #### C 215, C406, C3763, C45 #### [facility] [place] [address] Hematocrit (Bld) [Volume fraction] 45.6 % Normal 42.0-52.0 [facility] Comment on above: Order Comment: Items in this order include: Basic Metabolic Panel, Vit D 25 [place] (Total), CBC with differential, HgbA1C, Testing Performed By: [facility] [address] [place] [address] CLIA#:[id number] [address] Hannah Richard, Heat Treat Supervisor Performed By: #### C 215, C406, C3763, C45 #### [facility] [place] [place] [address] Hemoglobin (Bld) [Mass/Vol] 14.6 g/dL Normal 13.5-18.0 [facility] Comment on above: Order Comment: Items in this order include: Basic Metabolic Panel, Vit D 25 [place] (Total), CBC with differential, HgbA1C, Testing Performed By: [facility] [address] [place] [address] CLIA#:[id number] Dr. Hannah Richard, Heat Treat Supervisor Performed By: #### C 215, C406, C3763, C45 #### [facility] [place] [address] ImmGrn # 0.0 K CUMM Normal 0.0-0.3 [facility] Comment on above: Order Comment: Items in this order include: Basic Metabolic Panel, Vit D 25 [place] (Total), CBC with differential, HgbA1C, Testing Performed By: [facility] [address] [place] [address] CLIA#:[id number] [address] Hannah Richard, Heat Treat Supervisor Performed By: #### C 215, C406, C3763, C45 #### [facility] [address] [place] [address] ImmGrn % 0.3 % Normal 0.0-3.0 [facility] Comment on above: Order Comment: Items in this order include: Basic Metabolic Panel, Vit D 25 [place] (Total), CBC with differential, HgbA1C, Testing Performed By: [facility] [address] [place] [address] CLIA#:[id number] [address] Hannah Richard, Heat Treat Supervisor Performed By: #### C 215, C406, C3763, C45 #### [facility] [address] [place] [address] LYMPH # 0.9 K CUMM Normal 0.7-4.5 [facility] Comment on above: Order Comment: Items in this order include: Basic Metabolic Panel, Vit D 25 [place] (Total), CBC with differential, HgbA1C, Testing Performed By: [facility] [address] [place] [address] CLIA#:[id number] [address] Hannah Richard, Heat Treat Supervisor Performed By: #### C 215, C406, C3763, C45 #### [facility] [address] [place] [address] Lymphocytes/100 WBC (Bld) 15.0 % Normal 14.0-46.0 [facility] Comment on above: Order Comment: Items in this order include: Basic Metabolic Panel, Vit D 25 [place] (Total), CBC with differential, HgbA1C, Testing Performed By: [facility] [address] [place] [address] CLIA#:[id number] Dr. Hannah Richard, Heat Treat Supervisor Performed By: #### C 215, C406, C3763, C45 #### [facility] [address] [place] [address] MCH (RBC) [Entitic mass] 31.5 pg High 27.0-31.0 [facility] Comment on above: Order Comment: Items in this order include: Basic Metabolic Panel, Vit D 25 [place] (Total), CBC with differential, HgbA1C, Testing Performed By: [facility] [address] [place] [address] CLIA#:[id number] Dr. Hannah Richard, Heat Treat Supervisor Performed By: #### C 215, C406, C3763, C45 #### [facility] [address] [place] [address] MCHC (RBC) [Mass/Vol] 32.0 g/dL Normal 32.0-36.0 [facility] Comment on above: Order Comment: Items in this order include: Basic Metabolic Panel, Vit D 25 [place] (Total), CBC with differential, HgbA1C, Testing Performed By: [facility] [address] [place] [address] CLIA#:[id number] Dr. Hannah Richard, Heat Treat Supervisor Performed By: #### C 215, C406, C3763, C45 #### [facility] [address] [place] [address] [place] [address] MCV (RBC) [Entitic vol] 98.5 fL Normal 78.0-100.0 [facility] Comment on above: Order Comment: Items in this order include: Basic Metabolic Panel, Vit D 25 [place] (Total), CBC with differential, HgbA1C, Testing Performed By: [facility] [address] [place] [address] CLIA#:[id number] [address] Hannah Richard, Heat Treat Supervisor Performed By: #### C 215, C406, C3763, C45 #### [facility] [address] [place] [address] MONO # 0.5 K CUMM Normal 0.1-1.0 [facility] Comment on above: Order Comment: Items in this order include: Basic Metabolic Panel, Vit D 25 [place] (Total), CBC with differential, HgbA1C, Testing Performed By: [facility] [address] [place] [address] CLIA#:[id number] Dr. Hannah Richard, Heat Treat Supervisor Performed By: #### C 215, C406, C3763, C45 #### [facility] [address] [place] [address] Monocytes/100 WBC (Bld) 7.7 % Normal 4.0-13.0 [facility] Comment on above: Order Comment: Items in this order include: Basic Metabolic Panel, Vit D 25 [place] (Total), CBC with differential, HgbA1C, Testing Performed By: [facility] [address] [place] [address] CLIA#:[id number] [address] Hannah Richard, Heat Treat Supervisor Performed By: #### C 215, C406, C3763, C45 #### [facility] [address] [place] [address] LEONA # 4.6 K CUMM Normal 1.8-7.8 [facility] Comment on above: Order Comment: Items in this order include: Basic Metabolic Panel, Vit D 25 OH (Total), CBC with differential, HgbA1C, Testing Performed By: [facility] [address] [place] [address] CLIA#:[id number] Dr. Hannah Richard, Heat Treat Supervisor Performed By: #### C 215, C406, C3763, C45 #### [facility] [address] [place] [address] Neutrophils/100 WBC (Bld) 72.5 % Normal 40.0-74.0 [facility] Comment on above: Order Comment: Items in this order include: Basic Metabolic Panel, Vit D 25 OH (Total), CBC with differential, HgbA1C, Testing Performed By: [facility] [address] [place] [address] CLIA#:[id number] Dr. Hannah Richard, Heat Treat Supervisor Performed By: #### C 215, C406, C3763, C45 #### [facility] [address] [place] [address] Platelet mean volume (Bld) [Entitic vol] 12.6 fL Normal 8.9-12.6 [facility] Comment on above: Order Comment: Items in this order include: Basic Metabolic Panel, Vit D 25 OH (Total), CBC with differential, HgbA1C, Testing Performed By: [facility] [address] [place] [address] CLIA#:[id number] Dr. Hannah Richard, Heat Treat Supervisor Performed By: #### C 215, C406, C3763, C45 #### [facility] [address] [place] [address] PLT 146 K CUMM Normal 130-400 [facility] Comment on above: Order Comment: Items in this order include: Basic Metabolic Panel, Vit D 25 OH (Total), CBC with differential, HgbA1C, Testing Performed By: [facility] [address] [place] [address] CLIA#:[id number] [address]. Hannah Richard, Heat Treat Supervisor Performed By: #### C 215, C406, C3763, C45 #### [facility] [address] [place] [address] RBC 4.63 M CUMM Normal 4.20-5.80 [facility] Comment on above: Order Comment: Items in this order include: Basic Metabolic Panel, Vit D 25 OH (Total), CBC with differential, HgbA1C, Testing Performed By: [facility] [address] [place] [address] CLIA#:[id number] [address] Hannah Richard, Heat Treat Supervisor Performed By: #### C 215, C406, C3763, C45 #### [facility] [address] [place] [address] WBC 6.3 K CUMM Normal 3.8-10.6 [facility] Comment on above: Order Comment: Items in this order include: Basic Metabolic Panel, Vit D 25 OH (Total), CBC with differential, HgbA1C, Testing Performed By: [facility] [address] [place] [address] CLIA#:[id number] [address] Hannah Richard, Heat Treat Supervisor Performed By: #### C 215, C406, C3763, C45 #### [facility] [address] [place] [address] [id number] 12-11-2021 HbA1c (Bld) [Mass fraction] 6.3 % High <5.7 [facility] Comment on above: Order Comment: Items in this order include: Basic Metabolic Panel, Vit D 25 OH (Total), CBC with differential, HgbA1C, Testing Performed By: [facility] [address] [place] [address] CLIA#:[id number] [address] Hannah Richard, Heat Treat Supervisor Result Comment: Refe rence Interval: Normal: below 5.7%. Prediabetes: 5.7% to 6.4%. Diabetes: 6.5% or above. Performed By: #### C 215, C406, C3763, C45 #### [facility] [address] [place] [address] Vit D 25 OH (Total)on 2021 Vit D 25 OH (Total) 26.7 ng/ml Low 30.0-100.0 [facility] Comment on above: Result Comment: Adul t Deficiency <20 ng/ml Insufficiency 20 - <30 ng/ml Sufficiency 30 - 100 ng/ml Toxicity >100 ng/ml Pediatric Deficiency <15 ng/ml Insufficiency 15 - <20 ng/ml Sufficiency 20-100 ng/ml Toxicity >100 ng/ml Performed By: #### C 215, C406, C3763, C45 #### [facility] [address] [place] [address] [facility] [address] [address] [facility] Signed PRELIMINARY DRAFT REPORT UNTIL ELECTRONICALLY SIGNED PATIENT: Mick Cottrell MR#: [id number] : 1940 AGE/SEX: 81 / M ADMITTED: 11/28/21 OUTSIDE LOCN: LOCATION: [facility] ATTENDING: Grace Gtz MD cc: ; [...] By: 11/28/21 1108 DD/ 110 Initialized By: [id number] Normal [facility] POC PT and INR (Dr.office)on 11-28-2021 POC INR Result (Dr.office) 2.2 Normal [facility] Comment on above: Result Comment: For patients on oral anticoagulants, the therapeutic INR reference range is 2.0 to 3.5 Performed By: #### P OCPTINR ####[facility] [address] [place] [address] POC PT Result (DrClarenceoffice) 26.5 seconds High 9.4-12.1 [facility] Comment on above: Performed By: #### P OCPTINR ####[facility] [address] [place] [address] POC PT and INR (DrClarenceoffice)on 11-22-2021 POC INR Result (Dr.office) 2.3 Normal [facility] Comment on above: Result Comment: For patients on oral anticoagulants, the therapeutic INR reference range is 2.0 to 3.5 Performed By: #### B MP #### [facility] [address] [place] [address] POC PT Result (DrClarenceoffice) 27.7 seconds High 9.4-12.1 [facility] Comment on above: Performed By: #### B MP #### [facility] [address] [place] [address] [facility] [address] [address] [facility] Signed PRELIMINARY DRAFT REPORT UNTIL ELECTRONICALLY SIGNED PATIENT: Mick Cottrell MR#: [id number] : 1940 AGE/SEX: 81 / M ADMITTED: 11/21/21 OUTSIDE LOCN: LOCATION: [facility] ATTENDING: Grace Gtz MD cc: ; [...] 1 we (more content not included)... Normal [facility] [address] [address] [facility] Signed PRELIMINARY DRAFT REPORT UNTIL ELECTRONICALLY SIGNED PATIENT: Mick Cottrell MR#: [id number] : 1940 AGE/SEX: 81 / M ADMITTED: 11/14/21 OUTSIDE LOCN: LOCATION: [facility] ATTENDING: Grace Gtz MD cc: ; [...] Arechiga Signed By: 11/14/2145 DD/ Initialized By: [id number] [facility] POC PT and INR (office)on 11-14-2021 POC INR Result (office) 1.7 Normal [facility] Comment on above: Result Comment: For patients on oral anticoagulants, the therapeutic INR reference range is 2.0 to 3.5 Performed By: #### P OCPTINR ####[facility] [address] [place], [place] [address] POC PT Result (office) 20.8 seconds High 9.4-12.1 [facility] Comment on above: Performed By: #### P OCPTINR ####[facility] [address] [place] [address] [facility] [address] [address] [facility] Signed PRELIMINARY DRAFT REPORT UNTIL ELECTRONICALLY SIGNED PATIENT: Mick Cottrell MR#: [id number] : 1940 AGE/SEX: 81 / M ADMITTED: 10/24/21 OUTSIDE LOCN: LOCATION: [facility] ATTENDING: Grace Gtz MD cc: ; [...] kidney injury) (Acute) Pharmacist Visit Note: Mick Soni Cottrell was questioned extensively about any missed [...] By: 10/24/21 1015 DD/ 1011 Initialized By: [id number] [facility] POC PT and INR (office)on 10-24-2021 POC INR Result (office) 2.1 [facility] Comment on above: Result Comment: For patients on oral anticoagulants, the therapeutic INR reference range is 2.0 to 3.5 Performed By: #### C UU #### [facility] [address] [place] [address] POC PT Result (office) 25.5 seconds High 9.4-12.1 [facility] Comment on above: Performed By: #### C UU #### [facility] [address] [place] [address] [facility] [address] [address] [facility] Signed PRELIMINARY DRAFT REPORT UNTIL ELECTRONICALLY SIGNED PATIENT: Mick Cottrell MR#: [id number] : 1940 AGE/SEX: 81 / M ADMITTED: 10/11/21 OUTSIDE LOCN: LOCATION: [facility] ATTENDING: Grace Gtz MD cc: ; [...] By: 10/11/21 1017 DD/ 1016 Initialized By: [id number] Normal [facility] POC PT and INR (office)on 10-11-2021 POC INR Result (office) 2.3 Normal [facility] Comment on above: Result Comment: For patients on oral anticoagulants, the therapeutic INR reference range is 2.0 to 3.5 Performed By: #### B MP #### [facility] [address] [place] [address] POC PT Result (office) 27.0 seconds High 9.4-12.1 [facility] Comment on above: Performed By: #### B MP #### [facility] [address] [place] [address] [facility] [address] [address] [facility] Signed PRELIMINARY DRAFT REPORT UNTIL ELECTRONICALLY SIGNED PATIENT: Mick Cottrell MR#: [id number] : 1940 AGE/SEX: 81 / M ADMITTED: 10/02/21 OUTSIDE LOCN: LOCATION: [facility] ATTENDING: Grace Gtz MD cc: ; [...] By: 10/02/21 1018 DD/ 1013 Initialized By: [id number] [facility] POC PT and INR (office)on 10-02-2021 POC INR Result (office) 2.3 [facility] Comment on above: Result Comment: For patients on oral anticoagulants, the therapeutic INR reference range is 2.0 to 3.5 Performed By: #### P OCPTINR ####[facility] [address] [place], [place] [address] POC PT Result (DrClarenceoffice) 27.0 seconds High 9.4-12.1 [facility] Comment on above: Performed By: #### P OCPTINR ####[facility] [address] [place] [address] POC PT and INR (DrClarenceoffice)on 09-29-2021 POC INR Result (DrClarenceoffice) 4.1 [facility] Comment on above: Result Comment: For patients on oral anticoagulants, the therapeutic INR reference range is 2.0 to 3.5 Performed By: #### P OCPTINR ####[facility] [address] [place] [address] POC PT Result () 49.8 seconds High 9.4-12.1 [facility] Comment on above: Performed By: #### P OCPTINR ####[facility] [address] [place] [address] [facility] [address] [address] [facility] Signed PRELIMINARY DRAFT REPORT UNTIL ELECTRONICALLY SIGNED PATIENT: Mick Cottrell MR#: [id number] : 1940 AGE/SEX: 81 / M ADMITTED: 09/27/21 OUTSIDE LOCN: LOCATION: [facility] ATTENDING: Grace Gtz MD cc: ; [...] By: Piyush Sales Signed By: 09/27/2144 DD/ 0 Initialized By: [id number] [facility] [address] [address] [facility] Signed PRELIMINARY DRAFT REPORT UNTIL ELECTRONICALLY SIGNED PATIENT: Mick Cottrell MR#: [id number] : 1940 AGE/SEX: 81 / M ADMITTED: 09/20/21 OUTSIDE LOCN: LOCATION: [facility] ATTENDING: Grace Gtz MD cc: ; [...] Signed By: 09/20/21900 DD/ 9 Initialized By: [id number] [facility] POC PT and INR (office)on 09-20-2021 POC INR Result (office) 2.3 [facility] Comment on above: Result Comment: For patients on oral anticoagulants, the therapeutic INR reference range is 2.0 to 3.5 Performed By: #### L IP, HEPATIC, BMP, ROSSY #### [facility] [address] [place] [address] POC PT Result (DrClarenceoffice) 27.1 seconds High 9.4-12.1 [facility] Comment on above: Performed By: #### L IP, HEPATIC, BMP, ROSSY #### [facility] [address] [place] [address] [facility] [address] [address] [facility] Signed PRELIMINARY DRAFT REPORT UNTIL ELECTRONICALLY SIGNED PATIENT: Mick Cottrell MR#: [id number] : 1940 AGE/SEX: 80 / M ADMITTED: 09/13/21 OUTSIDE LOCN: LOCATION: [facility] ATTENDING: Grace Gtz MD cc: ; [...] 0849 DD/DT: (more content not included)... Normal [facility] POC PT and INR (office)on 09-13-2021 POC INR Result (office) 1.6 Normal [facility] Comment on above: Result Comment: For patients on oral anticoagulants, the therapeutic INR reference range is 2.0 to 3.5 Performed By: #### L IP, HEPATIC, BMP, ROSSY #### [facility] [address] [place] [address] POC PT Result (office) 19.0 seconds High 9.4-12.1 [facility] Comment on above: Performed By: #### L IP, HEPATIC, BMP, ROSSY #### [facility] [address] [place] [address] [facility] [address] [address] [facility] Signed PRELIMINARY DRAFT REPORT UNTIL ELECTRONICALLY SIGNED PATIENT: Mick Cottrell MR#: [id number] : 1940 AGE/SEX: 80 / M ADMITTED: 09/06/21 OUTSIDE LOCN: LOCATION: [facility] ATTENDING: Grace Gtz MD cc: ; Anti-Coagulation History Referring Physician: Grace Gtz Supervising Clinician: oJse Jordan Medical history: cancer, COPD, CVA, diabetes, [...] By: 09/06/21 0850 DD/ 0849 Initialized By: [id number] [facility] POC PT and INR (office)on 09-06-2021 POC INR Result (office) 1.9 [facility] Comment on above: Result Comment: For patients on oral anticoagulants, the therapeutic INR reference range is 2.0 to 3.5 Performed By: #### B MP #### [facility] [address] [place] [id number] POC PT Result (office) 22.9 seconds High 9.4-12.1 [facility] Comment on above: Performed By: #### B MP #### [facility] [address] [place] [address] [phone] POC PT and INR (office)on 08-24-2021 POC INR Result (office) 3.0 Normal [facility] Comment on above: Result Comment: For patients on oral anticoagulants, the therapeutic INR reference range is 2.0 to 3.5 Performed By: #### L IP, HEPATIC, BMP, ROSSY #### [facility] [address] [place] [address] POC PT Result () 36.5 seconds High 9.4-12.1 [facility] Comment on above: Performed By: #### L IP, HEPATIC, BMP, ROSSY #### [facility] [address] [place] [address] [facility] [address] [address] [facility] Signed PRELIMINARY DRAFT REPORT UNTIL ELECTRONICALLY SIGNED PATIENT: Mick Cottrell MR#: [id number] : 1940 AGE/SEX: 80 / M ADMITTED: 08/23/21 OUTSIDE LOCN: LOCATION: [facility] ATTENDING: Grace Gtz MD cc: ; [...] of Tablet (more content not included)... Normal [facility] [address] [address] [facility] Signed PRELIMINARY DRAFT REPORT UNTIL ELECTRONICALLY SIGNED PATIENT: Mick Cottrell MR#: [id number] : 1940 AGE/SEX: 80 / M ADMITTED: 08/02/21 OUTSIDE LOCN: LOCATION: [facility] ATTENDING: Grace Gtz MD cc: ; [...] weeks Documented By: Diandra Arechiga Signed By: 08/02/21850 DD/ Initialized By: [id number] [facility] 08-02-[address] [address] Cat Scan Report Signed PRELIMINARY DRAFT REPORT UNTIL ELECTRONICALLY SIGNED PATIENT: Mick Cottrell MR#: [id number] : 1940 AGE/SEX: 80 / M ADMITTED: 08/01/21 OUTSIDE LOCN: LOCATION: [facility] ATTENDING: Grace Gtz MD ORDER PHYSICIAN: Grace Gtz BIRAD: DATE OF SERVICE: 08/01/21 FOLLOW UP: ACCESSION NUMBERS(S): [id number] PROCEDURE(S): CT chest wo con REASON FOR [...] Interpreting Provider: Cristian De León MD Normal [facility] POC PT and INR (office)on 08-02-2021 POC INR Result (office) 2.4 Normal [facility] Comment on above: Result Comment: For patients on oral anticoagulants, the therapeutic INR reference range is 2.0 to 3.5 Performed By: #### P OCPTINR ####[facility] [address] [place], [place] [address] POC PT Result (office) 29.3 seconds High 9.4-12.1 [facility] Comment on above: Performed By: #### P OCPTINR ####[facility] [address] [place] [address] [facility] [address] [address] [facility] Signed PRELIMINARY DRAFT REPORT UNTIL ELECTRONICALLY SIGNED PATIENT: Mick Cottrell MR#: [id number] : 1940 AGE/SEX: 80 / M ADMITTED: 07/19/21 OUTSIDE LOCN: LOCATION: [facility] ATTENDING: Grace Gtz MD cc: ; [...] By: Diandra Arechiga Signed By: 07/19/21916 DD/ 5 Initialized By: [id number] [facility] POC PT and INR (office)on 07-19-2021 POC INR Result (office) 2.5 Normal [facility] Comment on above: Result Comment: For patients on oral anticoagulants, the therapeutic INR reference range is 2.0 to 3.5 Performed By: #### P OCPTINR ####[facility] [address] [place], [place] [address] POC PT Result (office) 30.1 seconds High 9.4-12.1 [facility] Comment on above: Performed By: #### P OCPTINR ####[facility] [address] [place] [address] [facility] [address] [address] [facility] Signed PRELIMINARY DRAFT REPORT UNTIL ELECTRONICALLY SIGNED PATIENT: Mick Cottrell MR#: [id number] : 1940 AGE/SEX: 80 / M ADMITTED: 07/12/21 OUTSIDE LOCN: LOCATION: [facility] ATTENDING: Grace Gtz MD cc: ; [...] Signed By: 07/12/21943 DD/ 3 Initialized By: [id number] [facility] POC PT and INR (office)on 07-12-2021 POC INR Result (office) 2.1 [facility] Comment on above: Result Comment: For patients on oral anticoagulants, the therapeutic INR reference range is 2.0 to 3.5 Performed By: #### L IP, HEPATIC, BMP, ROSSY #### [facility] [address] [place] [address] POC PT Result (office) 24.7 seconds High 9.4-12.1 [facility] Comment on above: Performed By: #### L IP, HEPATIC, BMP, ROSSY #### [facility] [address] [place] [address] [facility] [address] [address] [facility] Signed PRELIMINARY DRAFT REPORT UNTIL ELECTRONICALLY SIGNED PATIENT: Mick Cottrell MR#: [id number] : 1940 AGE/SEX: 80 / M ADMITTED: 07/05/21 OUTSIDE LOCN: LOCATION: [facility] ATTENDING: Grace Gtz MD cc: ; [...] Daily Dose (Kenna): 6 # of Tablets (Eknna): 1.5 Daily Dose (Fri): 4 # of Tablets (Fri): 1 Daily Dose (Sat): 4 # of Tablets (Sat): 1 Total Doses (mg): 32 Reason for dosing changes: 2 subtherapeutic levels in a row. Documented By: Piyush Sales Signed By: 07/05/21907 DD/ 3 Initialized By: [id number] [facility] POC PT and INR (office)on 07-05-2021 POC INR Result (office) 1.8 Normal [facility] Comment on above: Result Comment: For patients on oral anticoagulants, the therapeutic INR reference range is 2.0 to 3.5 Performed By: #### L IP, HEPATIC, BMP, ROSSY #### [facility] [address] [place] [address] POC PT Result (office) 21.1 seconds High 9.4-12.1 [facility] Comment on above: Performed By: #### L IP, HEPATIC, BMP, ROSSY #### [facility] [address] [place] [address] [facility] [address] [address] [facility] Signed PRELIMINARY DRAFT REPORT UNTIL ELECTRONICALLY SIGNED PATIENT: Mick Cottrell MR#: [id number] : 1940 AGE/SEX: 80 / M ADMITTED: 06/21/21 OUTSIDE LOCN: LOCATION: [facility] ATTENDING: Grace Gtz MD cc: ; [...] # of Tablets (Kenna): 1 Daily Dose (Sat): 4 # of Tablets (Fri): 1 Daily Dose (Sat): 4 # of Tablets (Sat): 1 Total Doses (mg): 28 Documented By: Aminah Stevneson Signed By: 06/21/21904 DD/ 1 Initialized By: [id number] [facility] POC PT and INR (office)on 06-21-2021 POC INR Result (office) 1.9 Normal [facility] Comment on above: Result Comment: For patients on oral anticoagulants, the therapeutic INR reference range is 2.0 to 3.5 Performed By: #### L IP, HEPATIC, BMP, ROSSY #### [facility] [address] [place], [place] [phone] POC PT Result (office) 23.2 seconds High 9.4-12.1 [facility] Comment on above: Performed By: #### L IP, HEPATIC, BMP, ROSSY #### [facility] [address] [place] [address] [facility] [address] [address] [facility] Signed PRELIMINARY DRAFT REPORT UNTIL ELECTRONICALLY SIGNED PATIENT: Mick Cottrell MR#: [id number] : 1940 AGE/SEX: 80 / M ADMITTED: 06/07/21 OUTSIDE LOCN: LOCATION: [facility] ATTENDING: Grace Gtz MD cc: ; [...] weeks Documented By: Piyush Sales Signed By: 06/07/2144 DD/ Initialized By: [id number] [facility] POC PT and INR (office)on 06-07-2021 POC INR Result (office) 3.0 [facility] Comment on above: Result Comment: For patients on oral anticoagulants, the therapeutic INR reference range is 2.0 to 3.5 Performed By: #### L IP, HEPATIC, BMP, ROSSY #### [facility] [address] [place] [address] POC PT Result (office) 36.0 seconds High 9.4-12.1 [facility] Comment on above: Performed By: #### L IP, HEPATIC, BMP, ROSSY #### [facility] [address] [place] [address] [facility] [address] [address] [facility] Signed PRELIMINARY DRAFT REPORT UNTIL ELECTRONICALLY SIGNED PATIENT: Mick Cottrell MR#: [id number] : 1940 AGE/SEX: 80 / M ADMITTED: 05/24/21 OUTSIDE LOCN: LOCATION: [facility] ATTENDING: Grace Gtz MD cc: ; [...] week Documented By: Diandra Arechiga Signed By: 05/24/21 0854 DD/ 0853 Initialized By: [id number] [facility] POC PT and INR (office)on 05-24-2021 POC INR Result (office) 2.0 [facility] Comment on above: Result Comment: For patients on oral anticoagulants, the therapeutic INR reference range is 2.0 to 3.5 Performed By: #### P OCPTINR ####[facility] [address] [place], [place] [address] POC PT Result (office) 23.9 seconds High 9.4-12.1 [facility] Comment on above: Performed By: #### P OCPTINR ####[facility] [address] [place] [address] [facility] [address] [address] [facility] Signed PRELIMINARY DRAFT REPORT UNTIL ELECTRONICALLY SIGNED PATIENT: Mick Cottrell MR#: [id number] : 1940 AGE/SEX: 80 / M ADMITTED: 05/17/21 OUTSIDE LOCN: LOCATION: [facility] ATTENDING: Grace Gtz MD cc: ; [...] 0846 Initializ (more content not included)... Normal [facility] POC PT and INR (office)on 05-17-2021 POC INR Result (office) 3.1 Normal [facility] Comment on above: Result Comment: For patients on oral anticoagulants, the therapeutic INR reference range is 2.0 to 3.5 Performed By: #### P OCPTINR ####[facility] [address] [place] [address] POC PT Result (office) 37.0 seconds High 9.4-12.1 [facility] Comment on above: Performed By: #### P OCPTINR ####[facility] [address] [place] [address] CHESTWOon 05-04-[address] [place] [address] Cat Scan Report Signed PRELIMINARY DRAFT REPORT UNTIL ELECTRONICALLY SIGNED PATIENT: Mick Cottrell MR#: [id number] : 1940 AGE/SEX: 80 / M ADMITTED: 05/04/21 OUTSIDE LOCN: LOCATION: [facility] ATTENDING: ORDER PHYSICIAN: Maximino Arthur BIRAD: DATE OF SERVICE: 05/04/21 FOLLOW UP: ACCESSION NUMBERS(S): [id number] PROCEDURE(S): CT chest wo con REASON FOR EXAM: fall; right-sided samaritan abrasion. cc: Grace Gtz; Maximino Arthur; EXAMINATION: [...] HISTORY: ORDERING SYSTEM PROVIDED HISTORY: fall; right-sided samaritan abrasion. FINDINGS: Chest Wall and Thoracic Inlet: [...] Sonia Joiner Interpreting Provider: Sonia Joiner Normal [facility] Electrocardiograph Reporton 05-04-2021 Electrocardiograph Report [address] [address] Electrocardiograph Report Signed PRELIMINARY DRAFT REPORT UNTIL ELECTRONICALLY SIGNED PATIENT: Mick Cottrell MR#: [id number] : 1940 AGE/SEX: 80 / M ADMITTED: 05/04/21 OUTSIDE LOCN: LOCATION: [facility] ATTENDING: SAMIRA PHYSICIAN: Rogelio Chapa TECHNOLOGIST: MONICO PHYSICIAN: Maximino Arthur PRIMARY PHYSICIAN: Grace Gtz DATE OF SERVICE: 05/04/21 ACCESSION NUMBERS(S): [id number] HT: 182.88 WT: 190 PROCEDURE(S): ECG 12 lead ECG cc: ; [place] [address] Test Date: 2021-05-04 Pat Name: Mick Cottrell Department: EXAM6 Room: Gender: M 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1940 Requested By: Maximino Arthur Order Number: [id number] Reading MD: Rogelio Chapa Measurements Intervals [place] Rate: 66 P: 70 WV: 189 QRS: 64 QRSD: 82 T: -85 QT: 381 QTc: 400 Interpretive Statements Sinus rhythm Consider left atrial enlargement Borderline repolarization abnormality Electronically Signed On 05-05-2021 9:32:50 EST by Rogelio Chapa Normal [facility] Emergency Documentationon Emergency Documentation [address] [address] Emergency Department Note Signed PRELIMINARY DRAFT REPORT UNTIL ELECTRONICALLY SIGNED PATIENT: Mick Cottrell MR#: [id number] : 1940 AGE/SEX: 80 / M ADMITTED: 05/04/21 OUTSIDE LOCN: LOCATION: [facility] ATTENDING: cc: Grace Gtz; Disposition Clinical [...] PRN Reason: Pain Transmission Status: Pending to [place] [address] Referrals: Grace Gtz MD [Primary Care Provider] [...] losing his balance. Patient was outside trimming moms when he rotated to get the side [...] mg PO Q4H PRN 05/17/20 05/17/20 Chloraseptic [place] [Chloraseptic] 5 spray PO TID 05/17/20 05/17/20 [...] 40 mg (more content not included)... [facility] [address] Cat Scan Report Signed PRELIMINARY DRAFT REPORT UNTIL ELECTRONICALLY SIGNED PATIENT: Mick Cottrell MR#: [id number] : 1940 AGE/SEX: 80 / M ADMITTED: 05/04/21 [facility]: ORDER PHYSICIAN: Cleveland Lewis BIRAD: DATE OF SERVICE: 05/04/21 FOLLOW UP: ACCESSION NUMBERS(S): [id number] PROCEDURE(S): CT head/brain wo con REASON FOR [...] a posterior disc osteophyte complex resulting in qkqq-qm-ykukhwzt narrowing of the central canal. SOFT TISSUES: [...] MD Interpreting Provider: Hannah Parra MD Normal [facility] [id number] 05-04-[id number] [address] XRay Report Signed PRELIMINARY DRAFT REPORT UNTIL ELECTRONICALLY SIGNED PATIENT: Mick Cottrell MR#: [id number] : 1940 AGE/SEX: 80 / M ADMITTED: 05/04/21 OUTSIDE LOCN: LOCATION: [facility] ATTENDING: ORDER PHYSICIAN: Maximino Arthur BIRAD: DATE OF SERVICE: 05/04/21 FOLLOW UP: ACCESSION NUMBERS(S): [id number] PROCEDURE(S): XR knee 3V RT REASON FOR [...] Travis Horan Interpreting Provider: Travis Horan Normal [facility] Prothrombin Time INRon 05-04 INR Coag (PPP) [Relative time] 2.8 {INR} Normal [facility] Comment on above: Result Comment: For patients on oral anticoagulants, the therapeutic INR reference range is 2.0 to 3.5 Performed By: #### L IP, HEPATIC, BMP, ROSSY #### [facility] [address] [place] [address] PT Coag (PPP) [Time] 31.0 s High 9.4-12.1 [facility] Comment on above: Performed By: #### L IP, HEPATIC, BMP, ROSSY #### [facility] [address], [place] [address] SPCERVWOon 05-04-[address] [address] Cat Scan Report Signed PRELIMINARY DRAFT REPORT UNTIL ELECTRONICALLY SIGNED PATIENT: Mick Cottrell MR#: [id number] : 1940 AGE/SEX: 80 / M ADMITTED: 05/04/21 OUTSIDE LOCN: LOCATION: [facility] ATTENDING: ORDER PHYSICIAN: Maximino Arthur BIRAD: DATE OF SERVICE: 05/04/21 FOLLOW UP: ACCESSION NUMBERS(S): [id number] PROCEDURE(S): CT cervical spine wo con REASON FOR EXAM: fall; right-sided samaritan abrasion. cc: Grace Gtz; Maximino Arthur; EXAMINATION: [...] a posterior disc osteophyte complex resulting in tpco-kj-xnsolbuq narrowing of the central canal. SOFT TISSUES: [...] MD Interpreting Provider: Hannah Parra MD Normal [facility] Troponin Ion 05-04-2021 Troponin I.cardiac [Mass/Vol] ng/mL Normal < 0.04 [facility] Comment on above: Performed By: #### L IP, HEPATIC, BMP, ROSSY #### [facility] [address] [place] [address] Echocardiogram Reporton 02-0 Echocardiogram Report [facility] [address] [address] ECHO - Doppler Report Signed PRELIMINARY DRAFT REPORT UNTIL ELECTRONICALLY SIGNED PATIENT: Mick Cottrell MR#: [id number] : 1940 AGE/SEX: 80 / M ADMITTED: 04/27/21 OUTSIDE LOCN: LOCATION: [facility] ATTENDING: Juan Wilson MD READING PHYSICIAN: Luisana Diego TECHNOLOGIST: ORDER PHYSICIAN: Juan Wilson PRIMARY PHYSICIAN: Grace Gtz DATE OF SERVICE: 04/27/21 ACCESSION NUMBERS(S): [id number] HT: WT: PROCEDURE(S): EV echocardiogram cc: ; Echocardiogram Name: Mick Cottrell Date of Study: 04/27/2021 Date: 1940 Ht: 72.0 in Medical [id number] Age: 80 Wt: 191.0 lb Record#: Gender: M BSA: 2.09 Order #: [id number] Location: [facility] #: [facility] Reading Physician: Luisana Diego MD Ordering Physician: Juan Frank MD Handle Assembler: Solitario Jones RDCS, RVT Indications: H/O heart [...] PM with status of Final Wall Motion?? [id number] ProVation FT PDF EV/EV echocardiogram Impressions: * [...] * The IVC is not dilated. Normal [facility] [address] [address] [facility] Signed PRELIMINARY DRAFT REPORT UNTIL ELECTRONICALLY SIGNED PATIENT: Mick Cottrell MR#: [id number] : 1940 AGE/SEX: 80 / M ADMITTED: 04/19/21 OUTSIDE LOCN: LOCATION: [facility] ATTENDING: Grace Gtz MD cc: ; [...] toll free number at: . Diandra DillonD. - Dosing Schedule Changes made [...] Tablets (Sat): (more content not included)... Normal [facility] POC PT and INR (office)on 04-19-2021 POC INR Result (office) 2.3 Normal [facility] Comment on above: Result Comment: For patients on oral anticoagulants, the therapeutic INR reference range is 2.0 to 3.5 Performed By: #### B MP #### [facility] [address] [place] [address] POC PT Result (office) 27.3 seconds High 9.4-12.1 [facility] Comment on above: Performed By: #### B MP #### [facility] [address] [place] [address] [facility] [address] [address] [facility] Signed PRELIMINARY DRAFT REPORT UNTIL ELECTRONICALLY SIGNED PATIENT: Mick Cottrell MR#: [id number] : 1940 AGE/SEX: 80 / M ADMITTED: 03/29/21 OUTSIDE LOCN: LOCATION: [facility] ATTENDING: Grace Gtz MD cc: ; [...] By: 03/29/21 0844 DD/ 0843 Initialized By: [id number] [facility] POC PT and INR (office)on 03-29-2021 POC INR Result (office) 2.1 [facility] Comment on above: Result Comment: For patients on oral anticoagulants, the therapeutic INR reference range is 2.0 to 3.5 Performed By: #### L IP, HEPATICCODY AMY #### [facility] [address] [place] [address] POC PT Result (office) 25.2 seconds High 9.4-12.1 [facility] Comment on above: Performed By: #### L IP, HEPATIC, BMP ROSSY #### [facility] [address] [place] [address] [facility] [address] [address] [facility] Signed PRELIMINARY DRAFT REPORT UNTIL ELECTRONICALLY SIGNED PATIENT: Mick Cottrell MR#: [id number] : 1940 AGE/SEX: 80 / M ADMITTED: 03/15/21 OUTSIDE LOCN: LOCATION: [facility] ATTENDING: Grace Gtz MD cc: ; [...] (Sat): 4 # of Tablets (Sat): 1 Daily Dose (Kenna): 4 # of Tablets (Kenna): 1 Daily Dose (Fri): 4 # of Tablets (Fri): 1 Daily Dose (Sat): 4 # of Tablets (Sat): 1 Total Doses (mg): 28 Follow up visit requested: 2 weeks Documented By: Piyush Sales Signed By: 03/15/21841 DD/ Initialized By: [id number] [facility] POC PT and INR (office)on 03-15-2021 POC INR Result (office) 2.0 [facility] Comment on above: Result Comment: For patients on oral anticoagulants, the therapeutic INR reference range is 2.0 to 3.5 Performed By: #### P OCPTINR ####[facility] [address] [place], [place] [address] POC PT Result (office) 24.1 seconds High 9.4-12.1 [facility] Comment on above: Performed By: #### P OCPTINR ####[facility] [address] [place] [address] [facility] [address] [address] [facility] Signed PRELIMINARY DRAFT REPORT UNTIL ELECTRONICALLY SIGNED PATIENT: Mick Cottrell MR#: [id number] : 1940 AGE/SEX: 80 / M ADMITTED: 03/08/21 OUTSIDE LOCN: LOCATION: [facility] ATTENDING: Grace Gtz MD cc: ; [...] By: 03/08/21 0841 DD/ 0837 Initialized By: [id number] [facility] POC PT and INR (office)on 03-08-2021 POC INR Result (office) 2.6 [facility] Comment on above: Result Comment: For patients on oral anticoagulants, the therapeutic INR reference range is 2.0 to 3.5 Performed By: #### L IP, HEPATIC, BMP, ROSSY #### [facility] [address] [place] [address] POC PT Result (office) 31.1 seconds High 9.4-12.1 [facility] Comment on above: Performed By: #### L IP, HEPATIC, BMP, ROSSY #### [facility] [address], [place] [address] MYOSPECRASon 03-06-[address] [address] Nuclear Medicine Report Signed PRELIMINARY DRAFT REPORT UNTIL ELECTRONICALLY SIGNED PATIENT: Mick Cottrell MR#: [id number] : 1940 AGE/SEX: 80 / M ADMITTED: 02/21/21 OUTSIDE LOCN: LOCATION: [facility] ATTENDING: Mary Kay Ty SPORTS MANAGEMENT INTERN ORDER PHYSICIAN: Mary Kay Ty BIRAD: DATE OF SERVICE: 02/21/21 FOLLOW UP: ACCESSION NUMBERS(S): [id number] PROCEDURE(S): NM paramjit perf SPECT multi REASON FOR EXAM: LOPEZ cc: Grace Gtz; Mary Kay Ty; This exam will be interpreted by [facility]. Results will be available in [employer] PCI under the CARDIO-PULMONARY Reports tab, within 48 hours of exam completion. If results are not available at that time, please call Cardiopulmonary at . Thank you. Normal [facility] [address] [address] [facility] Signed PRELIMINARY DRAFT REPORT UNTIL ELECTRONICALLY SIGNED PATIENT: Mick Cottrell MR#: [id number] : 1940 AGE/SEX: 80 / M ADMITTED: 03/01/21 OUTSIDE LOCN: LOCATION: [facility] ATTENDING: Grace Gtz MD cc: ; [...] week Documented By: Diandra Arechiga Signed By: 03/01/2145 DD/ 0943 Initialized By: [id number] [facility] POC PT and INR (office)on 03-01-2021 POC INR Result (office) 1.7 [facility] Comment on above: Result Comment: For patients on oral anticoagulants, the therapeutic INR reference range is 2.0 to 3.5 Performed By: #### P OCPTINR ####[facility] [address] [place] [address] POC PT Result (office) 20.5 seconds High 9.4-12.1 [facility] Comment on above: Performed By: #### P OCPTINR ####[facility] [address] [place] [address] [facility] [address] [address] [facility] Signed PRELIMINARY DRAFT REPORT UNTIL ELECTRONICALLY SIGNED PATIENT: Mick Cottrell MR#: [id number] : 1940 AGE/SEX: 80 / M ADMITTED: 02/22/21 OUTSIDE LOCN: LOCATION: [facility] ATTENDING: Grace Gtz MD cc: ; [...] contact our toll free number at: Diandra N Eckles PharmD Diagonsis: All Active Problems Headache (Chronic) [...] Signed By: 02/22/21926 DD/ 1 Initialized By: [id number] [facility] POC PT and INR (office)on 02-22-2021 POC INR Result (office) 1.3 [facility] Comment on above: Result Comment: For patients on oral anticoagulants, the therapeutic INR reference range is 2.0 to 3.5 Performed By: #### P OCPTINR ####[facility] [address] [place], [place] [address] POC PT Result (office) 15.8 seconds High 9.4-12.1 [facility] Comment on above: Performed By: #### P OCPTINR ####[facility] [address] [place] [address] Nuclear Medicine Stress Repo rton 02-21-2021 Nuclear Medicine Stress Report [address] [address] Nuclear Medicine Stress Report Signed PRELIMINARY DRAFT REPORT UNTIL ELECTRONICALLY SIGNED PATIENT: Mick Cottrell MR#: [id number] : 1940 AGE/SEX: 80 / M ADMITTED: 02/21/21 OUTSIDE LOCN: LOCATION: [facility] ATTENDING: Mary Kay Ty SPORTS MANAGEMENT INTERN READING PHYSICIAN: Zay Boo TECHNOLOGIST: Ingrid Douglass ORDER PHYSICIAN: Mary Kay Ty PRIMARY PHYSICIAN: Grace Gtz DATE OF SERVICE: 02/21/21 ACCESSION NUMBERS(S): [id number] HT: 182.88 WT: 190 PROCEDURE(S): SP cardiac nuc spect multi pro cc: ; Regadenoson Nuclear Stress Name: Mick Cottrell Date of Study: 02/21/2021 Date: 1940 Ht: 72.0 in Medical [id number] Age: 80 Wt: 190.0 lb Record#: Gender: M Order #: [id number] Location: [facility] OP Room: [facility] Supervising Provider: Allie Isidro CNP Reading Physician: Zay Boo MD Ordering Physician: Karson Demarco Stress Technologist: Ingrid Douglass RRT Barrow Worker Helper: Pj Medina Indications: Chest Pain Impression: * [...] Maximum Heart Rate Achieved: 69 Double Product: 25703 METS Reached: 1 Symptoms: No chest symptoms [...] 10:15:35 AM with status of Final Normal [facility] Calculi (stone) Analysison 03-31-2020 Calculi Composition SEE NOTE Normal [facility] Comment on above: Order Comment: 6 -RIGHT URETERAL CALCULI Result Comment: Calc [...] composition determined by FTIR analysis. Performed By: [facility] [address] [place] [address] Elevator Service Technician: Mary Ricketts MD Performed By: #### C ALCAN ####[address] [address] Calculi Description SEE NOTE Normal [facility] Comment on above: Order Comment: 3335 -RIGHT URETERAL CALCULI Result Comment: Spec imen consists of four, small, michaels, irregular calculi fragments. Performed By: #### C ALCAN ####[address] [address] Calculi (stone) Analysison 1 03-30-2020 Calculi Mass 9 mg Normal [facility] Comment on above: Order Comment: 3335 -RIGHT URETERAL CALCULI Performed By: #### C ALCAN ####[address] [address] Calculi Number 4 Normal [facility] Comment on above: Order Comment: 3335 -RIGHT URETERAL CALCULI Performed By: #### C ALCAN ####[address] [address] Calculi Size 1 TO 4 Normal [facility] Comment on above: Order Comment: 3335 -RIGHT URETERAL CALCULI Performed By: #### C ALCAN ####[address] [address] Basic Metabolic Panelon 10-3 Calcium [Mass/Vol] 8.5 mg/dL Low 8.6-10.3 [facility] Comment on above: Performed By: #### B MP #### [facility] [address] [place] [address] Chloride [Moles/Vol] 105 mmol/L Normal 98-107 [facility] Comment on above: Performed By: #### B MP #### [facility] [address] [place] [address] CO2 [Moles/Vol] 21 mmol/L Low 23-29 [facility] Comment on above: Performed By: #### B MP #### [facility] [address] [place] [address] Creatinine [Mass/Vol] 1.37 mg/dL High 0.70-1.30 [facility] Comment on above: Performed By: #### B MP #### [facility] [address] [place] [address] eGFR For Americans > 60 Normal > 60 [facility] Comment on above: Result Comment: eGFR = Estimated Glomerular Filtration Rate reported as mL/min/1.73 square meters Chronic Kidney Disease: < 60; Kidney failure: < 15 Performed By: #### B MP #### [facility] [address] [place] [address] eGFR For Non- Americans 50 Low > 60 [facility] Comment on above: Performed By: #### B MP #### [facility] [address] [place] [address] Glucose [Mass/Vol] 182 mg/dL High 70-105 [facility] Comment on above: Performed By: #### B MP #### [facility] [address] [place] [address] Osmolality,Calculated 291 Normal 280-300 [facility] Comment on above: Performed By: #### B MP #### [facility] [address] [place] [address] Potassium [Moles/Vol] 3.7 mmol/L Normal 3.5-5.1 [facility] Comment on above: Performed By: #### B MP #### [facility] [address] [place] [address] Sodium [Moles/Vol] 137 mmol/L Normal 136-145 [facility] Comment on above: Performed By: #### B MP #### [facility] [address] [place] [address] Urea nitrogen [Mass/Vol] 20 mg/dL Normal 8- [facility] Comment on above: Performed By: #### B MP #### [facility] [address] [place] [address] Urea nitrogen/Creatinine [Mass ratio] 15 mg/mg Normal - [facility] Comment on above: Performed By: #### B MP #### [facility] [address] [place] [address] Complete Blood Count with Di ffon 01-22-2021 Hemoglobin (Bld) [Mass/Vol] 12.7 g/dL Low 12.9-16.9 [facility] Comment on above: Performed By: #### B MP #### [facility] [address] [place] [address] Basophils (Bld) [#/Vol] 0.0 10*3/uL Normal 0.0-0.2 [facility] Comment on above: Performed By: #### B MP #### [facility] [address] [place] [address] Basophils/100 WBC (Bld) 0.1 % Normal [facility] Comment on above: Performed By: #### B MP #### [facility] [address] [place] [address] Eosinophils (Bld) [#/Vol] 0.0 10*3/uL Normal 0.0-0.6 [facility] Comment on above: Performed By: #### B MP #### [facility] [address] [place] [address] Eosinophils/100 WBC (Bld) 0.1 % Normal [facility] Comment on above: Performed By: #### B MP #### [facility] [address] [place] [address] Erythrocyte distribution width (RBC) [Ratio] 15.2 % High 11.5-14.5 [facility] Comment on above: Performed By: #### B MP #### [facility] [address] [place] [address] Hematocrit (Bld) [Volume fraction] 38.2 % Normal 37.5-50.1 [facility] Comment on above: Performed By: #### B MP #### [facility] [address] [place] [address] Immature granulocytes/100 WBC (Bld) 0.4 % Normal 0-4 [facility] Comment on above: Performed By: #### B MP #### [facility] [address] [place] [address] Lymphocytes (Bld) [#/Vol] 0.6 10*3/uL Normal 0.6-4.6 [facility] Comment on above: Performed By: #### B MP #### [facility] [address] [place] [address] Lymphocytes/100 WBC (Bld) 4.2 % Normal [facility] Comment on above: Performed By: #### B MP #### [facility] [address] [place] [address] MCH (RBC) [Entitic mass] 31.2 pg Normal 28.0-33.3 [facility] Comment on above: Performed By: #### B MP #### [facility] [address] [place] [address] MCV (RBC) [Entitic vol] 93.9 fL Normal 83.0-100.0 [facility] Comment on above: Performed By: #### B MP #### [facility] [address] [place] [address] Mean Corpuscular HGB Conc 33.2 g/dL Normal 31.6-35.5 [facility] Comment on above: Performed By: #### B MP #### [facility] [address] [place] [address] Monocytes (Bld) [#/Vol] 1.1 10*3/uL Normal 0.0-1.3 [facility] Comment on above: Performed By: #### B MP #### [facility] [address] [place] [address] Monocytes/100 WBC (Bld) 7.5 % Normal [facility] Comment on above: Performed By: #### B MP #### [facility] [address] [place] [address] Neutrophils (Bld) [#/Vol] 12.2 10*3/uL High 1.6-8.9 [facility] Comment on above: Performed By: #### B MP #### [facility] [address] [place] [address] Platelet mean volume (Bld) [Entitic vol] 10.7 fL Normal 9.4-12.4 [facility] Comment on above: Performed By: #### B MP #### [facility] [address] [place] [address] Platelets (Bld) [#/Vol] 171 10*3/uL Normal 140-400 [facility] Comment on above: Performed By: #### B MP #### [facility] [address] [place] [address] RBC (Bld) [#/Vol] 4.07 10*6/uL Low 4.19-5.50 [facility] Comment on above: Performed By: #### B MP #### [facility] [address] [place] [address] Segmented neutrophils/100 WBC (Bld) 87.7 % Normal [facility] Comment on above: Performed By: #### B MP #### [facility] [address] [place] [address] 79195 WBC (Bld) [#/Vol] 13.9 10*3/uL High 4.3-11.1 [facility] Comment on above: Performed By: #### B MP #### [facility] [address] [place] [address] 95336 Internal Med Progress Noteon 01-22-2021 Internal Med Progress Note [address] [address] Internal Med Progress Note Cancelled PRELIMINARY DRAFT REPORT UNTIL ELECTRONICALLY SIGNED PATIENT: Mick Cottrell MR#: [id number] : 1940 AGE/SEX: 80 / M ADMITTED: 01/22/21 0725 OUTSIDE LOCN: LOCATION: [address] [place] [address] ATTENDING: Matt Parisi MD cc: ; Hospitalist [...] Calculated Osmolality (280-300) Calcium (8.6-10.3) mg/dL 01/21/21 01/22/21 01/22/21 Range/Units 21:00 00:45 00:45 WBC 13.9 H [...] / 01/21/2021 09:30:19 Rekha Angulo MD [facility] Interpreting Provider: Rekha Angulo MD Consult Discharge Plan - Plan Referrals: Grace Gtz MD [Primary (more content not included)... Normal [facility] POC Glucometer Teston 2020 Glucose [Mass/Vol] 158 mg/dL High 70-99 [facility] Comment on above: Performed By: #### L IP, HEPATIC, BMP, ROSSY #### [facility] [address] [place] [address] [phone] Glucose [Mass/Vol] 175 mg/dL High 70-99 [facility] Comment on above: Performed By: #### P OCGLUMETER ####[facility] [address] [place], [place] [phone] Prothrombin Time INRon 01-22 INR Coag (PPP) [Relative time] 2.5 {INR} Normal [facility] Comment on above: Result Comment: For patients on oral anticoagulants, the therapeutic INR reference range is 2.0 to 3.5 Performed By: #### L IP, HEPATIC, BMP, ROSSY #### [facility] [address] [place] [address] [phone] PT Coag (PPP) [Time] 28.1 s High 9.4-12.1 [facility] Comment on above: Performed By: #### L IP, HEPATIC, BMP, ROSSY #### [facility] [address] [place] [address] [phone] Urology Progress Noteon 12-25 Urology Progress Note [address] [address] Urology Progress Note Signed PRELIMINARY DRAFT REPORT UNTIL ELECTRONICALLY SIGNED PATIENT: Mick Cottrell MR#: [id number] : 1940 AGE/SEX: 80 / M ADMITTED: 01/22/21 0725 OUTSIDE LOCN: LOCATION: [address] [place], [place] [address] ATTENDING: Matt Parisi MD cc: ; Date [...] Days #30 capsule Transmission Status: [facility] Phenazopyridine [Pyridium] 100 mg PO TID PRN #30 tablet PRN Reason: dysruria Transmission Status: Received by CARLEE VALLE [facility] Documented By: Ramesh Stringer MD Signed By: 01/22/21950 DD/ 8 Initialized By: [id number] [facility] Accessionon 01-21-2021 Accession RUN DATE: 01/26/21 [facility] - LAB *LIVE* PAGE 1 RUN TIME: 1055 PATIENT: Mick Cottrell ACCT: [id number] LOC: 2NNU U: [id number] AGE/SX: 80/M ROOM: [facility] RE01/22/21 STATUS: DIS IN BED: A DIS: 01/22/[address]: Matt Parisi Specimen: [id number] Received: 01/23/21 Status: CHRISTIN Jennifer Num: [id number] Spec Type: Surgical Subm Dr: Ramesh Stringer [...] 1055 Patient: Mick Cottrell AGE/SEX: 80/M ACCT: [id number] U: [id number] RUN DATE: 01/26/21 [facility] - LAB *LIVE* PAGE 1 RUN TIME: 1055 Patient: Mick Cottrell [id number] (Continued) [facility] Comment on above: Performed By: #### B MP #### [facility] [address] [place] [address] 45601 Anesthesia Evaluation Post O travis 01-21-2021 Anesthesia Evaluation Post Op [address] [address] Anesthesia Evaluation Post Op Signed PRELIMINARY DRAFT REPORT UNTIL ELECTRONICALLY SIGNED PATIENT: Mick Cottrell MR#: [id number] : 1940 AGE/SEX: 80 / M ADMITTED: 01/21/2139 OUTSIDE LOCN: LOCATION: [address] [place] [address] ATTENDING: Matt Parisi MD cc: ; Date [...] Signed By: 01/21/2192401/22/21717 DD/ 3 Initialized By: [id number] Normal [facility] Anesthesia Evaluation PreOpo n 01-21-2021 Anesthesia Evaluation PreOp [address] [address] Anesthesia Evaluation PreOp Signed PRELIMINARY DRAFT REPORT UNTIL ELECTRONICALLY SIGNED PATIENT: Mick Cottrell MR#: [id number] : 1940 AGE/SEX: 80 / M ADMITTED: 01/21/21 0040 OUTSIDE LOCN: LOCATION: 2N 2N15-A ATTENDING: Matt Parisi MD cc: ; Date of Encounter: 01/21/21 Time of Encounter: 07:15 - Past History Planned Operation: Right USE Cardiac History: HTN (came in with very high pressures - was on cardene drip, pressures now better), Cardiac Surgery (AVR) Pulmonary History: Former smoker, COPD, SANJU Dx, Other (PE, covid Mar 2020) PERSONNEL SPECIALIST History: Denies Any Significant HX Other Medical [...] [Rx] Ipratropium [ATROVENT Inhaler] 2 puff IH [id number] inhaler 04/09/20 [Rx] Bisacodyl [Dulcolax] 10 mg PO DAILY PRN tablet 04/27/20 [Rx] Docusate [Colace] 100 mg PO BID capsule 04/27/20 [Rx] Magnesium Oxide [Mag-Ox] 400 mg PO BID tablet 04/27/20 [Rx] Acetaminophen [Tylenol] 650 mg PO Q4H PRN 05/17/20 [History] Chloraseptic [place] [Chloraseptic] 5 spray PO TID 05/17/20 [History] [...] #30 tablet 05/24/20 [Rx] HYDROcodone/Acet 5/325 mg [Belpre 5-325 mg] 1 tab PO Q6H PRN [...] -50 Intake (more content not included)... Normal [facility] Complete Blood Count with Di ffon 01-21-2021 Basophils (Bld) [#/Vol] 0.0 10*3/uL Normal 0.0-0.2 [facility] Comment on above: Performed By: #### C BC ####[facility] [address] [place] [address] Basophils/100 WBC (Bld) 0.4 % Normal [facility] Comment on above: Performed By: #### C BC ####[address] [address] Eosinophils (Bld) [#/Vol] 0.1 10*3/uL Normal 0.0-0.6 [facility] Comment on above: Performed By: #### C BC ####[address] [address] Eosinophils/100 WBC (Bld) 1.1 % Normal [facility] Comment on above: Performed By: #### C BC ####[address] [address] Erythrocyte distribution width (RBC) [Ratio] 15.3 % High 11.5-14.5 [facility] Comment on above: Performed By: #### C BC ####[address] [address] Hematocrit (Bld) [Volume fraction] 44.4 % Normal 37.5-50.1 [facility] Comment on above: Performed By: #### C BC ####[address] [address] Hemoglobin (Bld) [Mass/Vol] 14.6 g/dL Normal 12.9-16.9 [facility] Comment on above: Performed By: #### C BC ####[address] [address] Immature granulocytes/100 WBC (Bld) 0.5 % Normal 0-4 [facility] Comment on above: Performed By: #### C BC ####[address] [address] Lymphocytes (Bld) [#/Vol] 1.2 10*3/uL Normal 0.6-4.6 [facility] Comment on above: Performed By: #### C BC ####[address] [address] Lymphocytes/100 WBC (Bld) 11.0 % Normal [facility] Comment on above: Performed By: #### C BC ####[address] [address] MCH (RBC) [Entitic mass] 31.5 pg Normal 28.0-33.3 [facility] Comment on above: Performed By: #### C BC ####[address] [address] MCV (RBC) [Entitic vol] 95.7 fL Normal 83.0-100.0 [facility] Comment on above: Performed By: #### C BC ####[address] [address] Mean Corpuscular HGB Conc 32.9 g/dL Normal 31.6-35.5 [facility] Comment on above: Performed By: #### C BC ####[address] [address] Monocytes (Bld) [#/Vol] 0.8 10*3/uL Normal 0.0-1.3 [facility] Comment on above: Performed By: #### C BC ####[address] [address] Monocytes/100 WBC (Bld) 7.3 % Normal [facility] Comment on above: Performed By: #### C BC ####[address] [address] Neutrophils (Bld) [#/Vol] 8.6 10*3/uL Normal 1.6-8.9 [facility] Comment on above: Performed By: #### C BC ####[address] [place] [address] Platelet mean volume (Bld) [Entitic vol] 10.8 fL Normal 9.4-12.4 [facility] Comment on above: Performed By: #### C BC ####[facility] [address] [place] [address] 10935 Platelets (Bld) [#/Vol] 175 10*3/uL Normal 140-400 [facility] Comment on above: Performed By: #### C BC ####[facility] [address] [place] [address] 16431 RBC (Bld) [#/Vol] 4.64 10*6/uL Normal 4.19-5.50 [facility] Comment on above: Performed By: #### C BC ####[facility] [address] [place] [address] 31765 Segmented neutrophils/100 WBC (Bld) 79.7 % Normal [facility] Comment on above: Performed By: #### C BC ####[facility] [address] [place] [address] 58891 WBC (Bld) [#/Vol] 10.8 10*3/uL Normal 4.3-11.1 [facility] Comment on above: Performed By: #### C BC ####[facility] [address] [place] [address] 39398 Comprehensive Metabolic Pane marquise 01-21-2021 Alanine Aminotransferase 17 Units/L Normal 7-52 [facility] Comment on above: Performed By: #### C UU #### [facility] [address] [place] [address] 92219 Albumin [Mass/Vol] 3.9 g/dL Normal 3.5-5.7 [facility] Comment on above: Performed By: #### C UU #### [facility] [address] [place] [address] 44083 Albumin/Globulin [Mass ratio] 1.4 {ratio} Normal 1.1-2.2 [facility] Comment on above: Performed By: #### C UU #### [facility] [address] [place] [address] 12880 Alkaline Phosphatase 109 Units/L High 34-104 [facility] Comment on above: Performed By: #### C UU #### [facility] [address] [place] [address] 41351 Aspartate Amino Transferase 13 Units/L Normal 13-39 [facility] Comment on above: Performed By: #### C UU #### [facility] [address] [place] [address] 50573 Bilirubin [Mass/Vol] 0.5 mg/dL Normal 0.3-1.0 [facility] Comment on above: Performed By: #### C UU #### [facility] [address] [place] [address] Calcium [Mass/Vol] 8.9 mg/dL Normal 8.6-10.3 [facility] Comment on above: Performed By: #### C UU #### [facility] [address] [place] [address] 42188 Chloride [Moles/Vol] 105 mmol/L Normal 98-107 [facility] Comment on above: Performed By: #### C UU #### [facility] [address] [place] [address] 79776 CO2 [Moles/Vol] 24 mmol/L Normal 23-29 [facility] Comment on above: Performed By: #### C UU #### [facility] [address] [place] [address] 25124 Creatinine [Mass/Vol] 1.35 mg/dL High 0.70-1.30 [facility] Comment on above: Performed By: #### C UU #### [facility] [address] [place] [address] 81810 eGFR For Americans > 60 Normal > 60 [facility] Comment on above: Result Comment: eGFR = Estimated Glomerular Filtration Rate reported as mL/min/1.73 square meters Chronic Kidney Disease: < 60; Kidney failure: < 15 Performed By: #### C UU #### [facility] [address] [place] [address] 69882 eGFR For Non- Americans 51 Low > 60 [facility] Comment on above: Performed By: #### C UU #### [facility] [address] [place] [address] 07512 Globulin (S) [Mass/Vol] 2.8 g/dL Normal 2.4-3.5 [facility] Comment on above: Performed By: #### C UU #### [facility] [address] [place] [address] 95618 Glucose [Mass/Vol] 149 mg/dL High 70-105 [facility] Comment on above: Performed By: #### C UU #### [facility] [address] [place] [address] 32181 Osmolality,Calculated 291 Normal 280-300 [facility] Comment on above: Performed By: #### C UU #### [facility] [address] [place] [address] 50899 Potassium [Moles/Vol] 3.6 mmol/L Normal 3.5-5.1 [facility] Comment on above: Performed By: #### C UU #### [facility] [address] [place] [address] 92582 Protein [Mass/Vol] 6.7 g/dL Normal 6.4-8.9 [facility] Comment on above: Performed By: #### C UU #### [facility] [address] [place] [address] 88980 Sodium [Moles/Vol] 139 mmol/L Normal 136-145 [facility] Comment on above: Performed By: #### C UU #### [facility] [address] [place] [address] [phone] (48 Urea nitrogen [Mass/Vol] 13 mg/dL Normal 8-23 [facility] Comment on above: Performed By: #### C UU #### [facility] [address] [place] [address] 45601 Urea nitrogen/Creatinine [Mass ratio] 10 mg/mg Normal 6-26 [facility] Comment on above: Performed By: #### C UU #### [facility] [address] [place] [address] [phone] Culture,Urineon 01-21-2021 Culture,Urine Culture,Urine: [place] Count 1 uL (OrganismID: 1) >100,000 (OrganismID: 1) Mixed culture? (OrganismID: 1) Mixed organisms resembling possible pathogens. (OrganismID: 1) (CONT.) (OrganismID: 1) Please resubmit if UTI is suspected. (OrganismID: 1) Normal [facility] Comment on above: Performed By: #### C UU #### [facility] [address] [place] [address]01 Internal Med History&Physica marquise 01-21-2021 Internal Med History&Physical [address] [address] Internal Med History Physical Signed with Addenda PRELIMINARY DRAFT REPORT UNTIL ELECTRONICALLY SIGNED PATIENT: Mick Cottrell MR#: [id number] : 1940 AGE/SEX: 80 / M ADMITTED: 01/21/21 0040 OUTSIDE LOCN: LOCATION: [facility] 2N15-A ATTENDING: Haroon Stovall MD [...] Stovall Addendum Signed By: 01/21/21 0656 ADD/ATT: 01/21/21655 Addendum Dictated By: Date of Encounter: 01/21/21 [...] [Rx] Ipratropium [ATROVENT Inhaler] 2 puff IH [id number] inhaler 04/09/20 [Rx] Bisacodyl [Dulcolax] 10 mg PO DAILY PRN tablet 04/27/20 [Rx] Docusate [Colace] 100 mg PO BID ca (more content not included)... Normal [facility] Internal Med Progress Noteon 01-21-2021 Internal Med Progress Note [address] [place] [address] Internal Med Progress Note Signed PRELIMINARY DRAFT REPORT UNTIL ELECTRONICALLY SIGNED PATIENT: Mick Cottrell MR#: [id number] : 1940 AGE/SEX: 80 / M ADMITTED: 01/21/21 0040 OUTSIDE LOCN: LOCATION: [address] [place], [place] [address]-A ATTENDING: Mtat Parisi MD cc: ; Hospitalist Progress Note [...] Urine pH (5.0-8.0) pH Units Ur Specific [place] (1.010-1.025) Urine Protein (Neg-Trace) mg/dL Urine Glucose [...] fL Immatu (more content not included)... Normal [facility] POC Glucometer Teston 2020 Glucose [Mass/Vol] 216 mg/dL High 70-99 [facility] Comment on above: Result Comment: FIDELINA Mahoney otified Performed By: #### B MP #### [facility] [address] [place] [address]165 Glucose [Mass/Vol] 258 mg/dL High 70-[address] [place] [address] Comment on above: Performed By: #### P OCGLUMETER ####[facility] [address] [place] [address] Glucose [Mass/Vol] 202 mg/dL High 70-[address] [place] [address] Comment on above: Performed By: #### P OCGLUMETER #### [facility] [address] [place] [address]27 Glucose [Mass/Vol] 158 mg/dL High 70-[address] [place] [address] Comment on above: Performed By: #### P OCGLUMETER ####[facility] [address] [place] [address] Glucose [Mass/Vol] 157 mg/dL High 70-[address] [place] [address] Comment on above: Result Comment: FIDELINA Mahoney otified Performed By: #### L IP, HEPATIC, BMP, ROSSY #### [facility] [address] [place] [address]66 Prothrombin Time INRon 01-21 INR Coag (PPP) [Relative time] 2.4 {INR} Normal [facility] Comment on above: Result Comment: For patients on oral anticoagulants, the therapeutic INR reference range is 2.0 to 3.5 Performed By: #### P TINR ####[facility] [address] [place], [place] [phone] PT Coag (PPP) [Time] 26.4 s High 9.4-12.1 [facility] Comment on above: Performed By: #### P TINR ####[facility] [address] [place], [place] [phone] RETROon 01-21-[address] [address] XRay Report Signed PRELIMINARY DRAFT REPORT UNTIL ELECTRONICALLY SIGNED PATIENT: Mick Cottrell MR#: [id number] : 1940 AGE/SEX: 80 / M ADMITTED: 01/22/21 0725 OUTSIDE LOCN: LOCATION: [address] [place], [place] [address]-A ATTENDING: Matt Parisi MD ORDER PHYSICIAN: Ramesh Stringer BIRAD: DATE OF SERVICE: 01/21/21 FOLLOW UP: ACCESSION NUMBERS(S): [id number] PROCEDURE(S): XR retrograde pyelogram REASON FOR EXAM: [...] vonda Interpreting Provider: Rekha Angulo MD Normal [facility] Urology - Consult Noteon Urology - Consult Note [address] [address] Urology - Consult Note Signed PRELIMINARY DRAFT REPORT UNTIL ELECTRONICALLY SIGNED PATIENT: Mick Cottrell MR#: [id number] : 1940 AGE/SEX: 80 / M ADMITTED: 01/21/21 0040 OUTSIDE LOCN: LOCATION: [address] [place] [address] ATTENDING: Haroon Stovall MD cc: ; Date [...] [Rx] Ipratropium [ATROVENT Inhaler] 2 puff IH [id number] inhaler 04/09/20 [Rx] Bisacodyl [Dulcolax] 10 mg PO DAILY PRN tablet 04/27/20 [Rx] Docusate [Colace] 100 mg PO BID capsule 04/27/20 [Rx] Magnesium Oxide [Mag-Ox] 400 mg PO BID tablet 04/27/20 [Rx] Acetaminophen [Tylenol] 650 mg PO Q4H PRN 05/17/20 [History] Chloraseptic [place] [Chloraseptic] 5 spray PO TID 05/17/20 [History] [...] #30 tablet 05/24/20 [Rx] HYDROcodone/Acet 5/325 mg [Belpre 5-325 mg] 1 tab PO Q6H PRN [...] swelling Exa (more content not included)... Normal [facility] 01-20-[address] [address] Cat Scan Report Signed PRELIMINARY DRAFT REPORT UNTIL ELECTRONICALLY SIGNED PATIENT: Mick Cottrell MR#: [id number] : 1940 AGE/SEX: 80 / M ADMITTED: 01/20/21 OUTSIDE LOCN: LOCATION: [facility] ATTENDING: ORDER PHYSICIAN: Cleveland Lewis BIRAD: DATE OF SERVICE: 01/20/21 FOLLOW UP: ACCESSION NUMBERS(S): [id number] PROCEDURE(S): CT abd pelvis wo no iv [...] MD Interpreting Provider: Kit Mcrae MD Normal [facility] Activated Partial Thrombo Ti meon 01-20-2021 Activated Partial Thrombo Time 40.2 Seconds High 26.0-36.0 [facility] Comment on above: Performed By: #### C UU #### [facility] [address] [place] [address]60 Amylaseon 01-20-2021 Amylase 30 Units/L Normal 29-103 [facility] Comment on above: Performed By: #### L IP, HEPATIC, BMP, ROSSY #### [facility] [address] [place] [address]706 Basic Metabolic Panelon - Calcium [Mass/Vol] 9.2 mg/dL Normal 8.6-10.3 [facility] Comment on above: Performed By: #### L IP, HEPATIC, BMP, ROSSY #### [facility] [address] [place] [address] 36196 Chloride [Moles/Vol] 107 mmol/L Normal 98-107 [facility] Comment on above: Performed By: #### L IP, HEPATIC, BMP, ROSSY #### [facility] [address] [place] [address] 97993 CO2 [Moles/Vol] 26 mmol/L Normal 23-29 [facility] Comment on above: Performed By: #### L IP, HEPATIC, BMP, ROSSY #### [facility] [address] [place] [address] 40025 Creatinine [Mass/Vol] 1.08 mg/dL Normal 0.70-1.30 [facility] Comment on above: Performed By: #### L IP, HEPATIC, BMP, ROSSY #### [facility] [address] [place] [address] 94267 eGFR For Americans > 60 Normal > 60 [facility] Comment on above: Result Comment: eGFR = Estimated Glomerular Filtration Rate reported as mL/min/1.73 square meters Chronic Kidney Disease: < 60; Kidney failure: < 15 Performed By: #### L IP, HEPATIC, BMP, ROSSY #### [facility] [address] [place] [address] 19081 eGFR For Non- Americans > 60 Normal > 60 [facility] Comment on above: Performed By: #### L IP, HEPATIC, BMP, ROSSY #### [facility] [address] [place] [address] 98621 Glucose [Mass/Vol] 106 mg/dL High 70-105 [facility] Comment on above: Performed By: #### L IP, HEPATIC, BMP, ROSSY #### [facility] [address] [place] [address]604 Osmolality,Calculated 291 Normal 280-300 [facility] Comment on above: Performed By: #### L IP, HEPATIC, BMP, ROSSY #### [facility] [address] [place] [address] 46897 Potassium [Moles/Vol] 3.6 mmol/L Normal 3.5-5.1 [facility] Comment on above: Performed By: #### L IP, HEPATIC, BMP, ROSSY #### [facility] [address] [place] [address] 56942 Sodium [Moles/Vol] 140 mmol/L Normal 136-145 [facility] Comment on above: Performed By: #### L IP, HEPATIC, BMP, ROSSY #### [facility] [address] [place] [address] Urea nitrogen [Mass/Vol] 13 mg/dL Normal 8-23 [facility] Comment on above: Performed By: #### L IP, HEPATIC, BMP, ROSSY #### [facility] [address] [place] [address] 74047 Urea nitrogen/Creatinine [Mass ratio] 12 mg/mg Normal 6- [facility] Comment on above: Performed By: #### L IP, HEPATIC, BMP, ROSSY #### [facility] [address] [place] [address] 87204 Complete Blood Count with Di ffon 01-20-2021 Basophils (Bld) [#/Vol] 0.0 10*3/uL Normal 0.0-0.2 [facility] Comment on above: Performed By: #### C BC ####[facility] [address] [place] [address] 85906 Basophils/100 WBC (Bld) 0.3 % Normal [facility] Comment on above: Performed By: #### C BC ####[facility] [address] [place] [address] 69905 Eosinophils (Bld) [#/Vol] 0.2 10*3/uL Normal 0.0-0.6 [facility] Comment on above: Performed By: #### C BC ####[facility] [address] [place] [address] 52015 Eosinophils/100 WBC (Bld) 2.3 % Normal [facility] Comment on above: Performed By: #### C BC ####[facility] [facility] [address] [place] [address] Erythrocyte distribution width (RBC) [Ratio] 15.5 % High 11.5-14.5 [facility] Comment on above: Performed By: #### C BC ####[address] [address] Hematocrit (Bld) [Volume fraction] 41.6 % Normal 37.5-50.1 [facility] Comment on above: Performed By: #### C BC ####[address] [address] Hemoglobin (Bld) [Mass/Vol] 13.8 g/dL Normal 12.9-16.9 [facility] Comment on above: Performed By: #### C BC ####[address] [address] Immature granulocytes/100 WBC (Bld) 0.3 % Normal 0-4 [facility] Comment on above: Performed By: #### C BC ####[address] [address] Lymphocytes (Bld) [#/Vol] 1.1 10*3/uL Normal 0.6-4.6 [facility] Comment on above: Performed By: #### C BC ####[address] [address] Lymphocytes/100 WBC (Bld) 12.4 % Normal [facility] Comment on above: Performed By: #### C BC ####[address] [address] MCH (RBC) [Entitic mass] 31.4 pg Normal 28.0-33.3 [facility] Comment on above: Performed By: #### C BC ####[address] [address] MCV (RBC) [Entitic vol] 94.8 fL Normal 83.0-100.0 [facility] Comment on above: Performed By: #### C BC ####[address] [address] Mean Corpuscular HGB Conc 33.2 g/dL Normal 31.6-35.5 [facility] Comment on above: Performed By: #### C BC ####[address] [address] Monocytes (Bld) [#/Vol] 0.8 10*3/uL Normal 0.0-1.3 [facility] Comment on above: Performed By: #### C BC ####[address] [address] Monocytes/100 WBC (Bld) 8.6 % Normal [facility] Comment on above: Performed By: #### C BC ####[address] [address] Neutrophils (Bld) [#/Vol] 6.6 10*3/uL Normal 1.6-8.9 [facility] Comment on above: Performed By: #### C BC ####[address] [address] Platelet mean volume (Bld) [Entitic vol] 11.1 fL Normal 9.4-12.4 [facility] Comment on above: Performed By: #### C BC ####[address] [address] Platelets (Bld) [#/Vol] 183 10*3/uL Normal 140-400 [facility] Comment on above: Performed By: #### C BC ####[address] [address] RBC (Bld) [#/Vol] 4.39 10*6/uL Normal 4.19-5.50 [facility] Comment on above: Performed By: #### C BC ####[address] [address] Segmented neutrophils/100 WBC (Bld) 76.1 % Normal [facility] Comment on above: Performed By: #### C BC ####[facility] [id number] [place], [place] [phone] WBC (Bld) [#/Vol] 8.7 10*3/uL Normal 4.3-11.1 [facility] Comment on above: Performed By: #### C BC ####[facility] [id number] [place], [place] [id number] Emergency Documentationon Emergency Documentation [address] [address] Emergency Department Note Signed PRELIMINARY DRAFT REPORT UNTIL ELECTRONICALLY SIGNED PATIENT: Mick Cottrell MR#: [id number] : 1940 AGE/SEX: 80 / M ADMITTED: 01/21/21 0040 OUTSIDE LOCN: LOCATION: [address] [place], [place] [address] ATTENDING: Haroon Stovall MD cc: Neno Domínguez; [...] mg PO Q4H PRN 05/17/20 05/17/20 Chloraseptic [place] [Chloraseptic] 5 spray PO TID 05/17/20 05/17/20 [...] 04/09/20 Ipratropium [ATROVENT Inhaler] 2 puff IH [id number] inhaler 04/09/20 Bisacodyl [Dulcolax] 10 mg PO DAILY PRN tablet 04/27/20 Docusate [Colace] 100 mg PO BID capsule 04/27/20 Magnesium Oxide [Mag-Ox] 400 mg PO BID tablet 04/27/20 Metoprolol [Lopressor] 50 mg PO BID 30 Days #60 tablet 05/24/20 Warfarin Sodium 4 mg PO DAILY 30 Days #30 tablet 05/24/20 HYDROcodone/Acet 5/325 mg [Bel[place] 1 tab PO Q6H PRN 3 Days [...] Smokeless Tobacco (more content not included)... Normal [facility] Hepatic Panelon 01-20-2021 Alanine Aminotransferase 17 Units/L Normal [facility] Comment on above: Performed By: #### L IP, HEPATIC, BMP, ROSSY #### [facility] [address] [place] [address] Albumin [Mass/Vol] 3.9 g/dL Normal 3.5-5.7 [facility] Comment on above: Performed By: #### L IP, HEPATIC, BMP, ROSSY #### [facility] [address] [place] [address] Albumin/Globulin [Mass ratio] 1.6 {ratio} Normal 1.1-2.2 [facility] Comment on above: Performed By: #### L IP, HEPATIC, BMP, ROSSY #### [facility] [address] [place] [address] Alkaline Phosphatase 104 Units/L Normal 34-104 [facility] Comment on above: Performed By: #### L IP, HEPATIC, BMP, ROSSY #### [facility] [address] [place] [address] Aspartate Amino Transferase 13 Units/L Normal 13-39 [facility] Comment on above: Performed By: #### L IP, HEPATIC, BMP, ROSSY #### [facility] [address] [place] [address] Bilirubin [Mass/Vol] 0.4 mg/dL Normal 0.3-1.0 [facility] Comment on above: Performed By: #### L IP, HEPATIC, BMP, ROSSY #### [facility] [address] [place] [address] Bilirubin,Indirect 0.3 mg/dL Normal 0.0-1.0 [facility] Comment on above: Performed By: #### L IP, HEPATIC, BMP, ROSSY #### [facility] [address] [place] [address] Bilirubin.indirect [Mass/Vol] 0.1 mg/dL Normal 0.0-0.2 [facility] Comment on above: Performed By: #### L IP, HEPATIC, BMP, ROSSY #### [facility] [address] [place] [address] Globulin (S) [Mass/Vol] 2.5 g/dL Normal 2.4-3.5 [facility] Comment on above: Performed By: #### L IP, HEPATIC, BMP, ROSSY #### [facility] [address] [place] [address] Protein [Mass/Vol] 6.4 g/dL Normal 6.4-8.9 [facility] Comment on above: Performed By: #### L IP, HEPATIC, BMP, ROSSY #### [facility] [address] [place] [address] Lipaseon 01-20-2021 Lipase 32 Units/L Normal 11-82 [facility] Comment on above: Performed By: #### L IP, HEPATIC, BMP, ROSSY #### [facility] [address] [place] [address] Prothrombin Time INRon 01-20 INR Coag (PPP) [Relative time] 2.5 {INR} Normal [facility] Comment on above: Result Comment: For patients on oral anticoagulants, the therapeutic INR reference range is 2.0 to 3.5 Performed By: #### C UU #### [facility] [address] [place] [address] PT Coag (PPP) [Time] 28.2 s High 9.4-12.1 [facility] Comment on above: Performed By: #### C UU #### [facility] [address] [place] [address] Urinalysis Reflex Cult Micro on 01-20-2021 RBC,Urine TNP Normal 0-3 [facility] Comment on above: Order Comment: Sourc e of specimen: Not Supplied Result Comment: No m icroscopic performed due to urine being grossly bloody. Performed By: #### U AREF ####[address] [address] Bilirubin,Urine Negative Normal Negative [facility] Comment on above: Order Comment: Sourc e of specimen: Not Supplied Performed By: #### U AREF ####[address] [address] Blood,Urine Large Abnormal Negative [facility] Comment on above: Order Comment: Sourc e of specimen: Not Supplied Performed By: #### U AREF ####[address] [address] Clarity (U) Ex.Turbid Abnormal Clear [facility] Comment on above: Order Comment: Sourc e of specimen: Not Supplied Performed By: #### U AREF ####[address] [address] Color (U) Light-Red Abnormal Yellow [facility] Comment on above: Order Comment: Sourc e of specimen: Not Supplied Performed By: #### U AREF ####[address] [address] Culture Indicated,Urine YES Abnormal NO [facility] Comment on above: Order Comment: Sourc e of specimen: Not Supplied Performed By: #### U AREF ####[address] [address] Glucose Ql (U) Normal Normal Normal [facility] Comment on above: Order Comment: Sourc e of specimen: Not Supplied Performed By: #### U AREF ####[address] [address] Ketones Ql (U) Negative Normal Negative [facility] Comment on above: Order Comment: Sourc e of specimen: Not Supplied Performed By: #### U AREF ####[address] [address] Leukocyte esterase Test strip Ql (U) Small Abnormal Negative [facility] Comment on above: Order Comment: Sourc e of specimen: Not Supplied Performed By: #### U AREF ####[address] [address] Nitrite,Urine Negative Normal Negative [facility] Comment on above: Order Comment: Sourc e of specimen: Not Supplied Performed By: #### U AREF ####[address] [address] PH,Urine 7.0 pH Units Normal 5.0-8.0 [facility] Comment on above: Order Comment: Sourc e of specimen: Not Supplied Performed By: #### U AREF ####[address] [address] Protein (U) [Mass/Vol] 100 mg/dL Abnormal Neg-Trace [facility] Comment on above: Order Comment: Sourc e of specimen: Not Supplied Performed By: #### U AREF ####[address] [address] Specific [place],Urine 1.011 Normal 1.010-1.025 [facility] Comment on above: Order Comment: Sourc e of specimen: Not Supplied Performed By: #### U AREF ####[address] [address] Urine Specimen Comments See below Abnormal [facility] Comment on above: Order Comment: Sourc e of specimen: Not Supplied Result Comment: Chem strip results were obtained after centrifugation. Performed By: #### U AREF ####[address] [address] Urobilinogen,Urine Normal Normal Normal [facility] Comment on above: Order Comment: Sourc e of specimen: Not Supplied Performed By: #### U AREF ####[address], [place] [phone] [facility] [address] [address] [facility] Signed PRELIMINARY DRAFT REPORT UNTIL ELECTRONICALLY SIGNED PATIENT: Mick Cottrell MR#: [id number] : 1940 AGE/SEX: 80 / M ADMITTED: 01/18/21 OUTSIDE LOCN: LOCATION: [facility] ATTENDING: Grace Gtz MD cc: ; [...] of kidney (Acute) Pharmacist Visit Note: Mick Nevilleon was [...] Signed By: 01/18/21932 DD/ 8 Initialized By: [id number] [facility] POC PT and INR (office)on 01-18-2021 POC INR Result (office) 2.0 [facility] Comment on above: Result Comment: For patients on oral anticoagulants, the therapeutic INR reference range is 2.0 to 3.5 Performed By: #### L IP, HEPATIC, BMP, ROSSY #### [facility] [address] [place] [address] [phone] POC PT Result (office) 24.4 seconds High 9.4-12.1 [facility] Comment on above: Performed By: #### L IP, HEPATIC, BMP, ROSSY #### [facility] [address] [place] [address] [phone] Prothrombin Time INRon 06-18 INR Coag (Bld) [Relative time] 15.2 s High 11.5-14.8 [facility] Comment on above: Order Comment: Speci men Type: Unknown Relevant Clinical Information: Z79.01 Ordering Facility: [facility] Laboratory Address: [address] [place] [address] Result Comment: *Ple ase note new reference ranges* Performed By: #### P TINR #### [facility] Laboratory INR Coag (PPP) [Relative time] 1.2 {INR} High 0.8-1.1 [facility] Comment on above: Order Comment: Speci men Type: Unknown Relevant Clinical Information: Z79.01 Ordering Facility: [facility] Laboratory Address: [address] [place] [address] Result Comment: *Ple ase note new reference ranges* Note: The INR is a therapeutic drug monitoring measurement applicable only to patients who are STABILIZED on anticoagulant therapy. Therapeutic Ranges: Low Intensity Therapy 1.5 - 2.0 Mod. Intensity Therapy 2.0 - 3.0 High Intensity Therapy (1) 2.5 - 3.5 High Intensity Therapy (2) 3.0 - 4.0 Performed By: #### P TINR #### [facility] Laboratory Discharge Referralon 021 Discharge Referral [facility] [address] [place] [address] Physician Discharge Referral Signed PRELIMINARY DRAFT REPORT UNTIL ELECTRONICALLY SIGNED PATIENT: Mick Cottrell MR#: [id number] : 1940 AGE/SEX: 79 / M ADMITTED: 04/12/20 1837 OUTSIDE LOCN: LOCATION: [address] ATTENDING: Jim Marshall MD cc: ; [...] [Rx] Ipratropium [ATROVENT Inhaler] 2 puff IH [id number] inhaler 04/09/20 [Rx] Metoprolol [Lopressor] 50 mg [...] been advised. For more information, call the [place] Tobacco Quit Line at 1-641-YQFV-NOW. - Lab Orders Lab Orders: 2 Step Mantoux Test per State regulation, CBC, U/A, Jaime 17, CXR yearly - Ancillary Orders May use pressure relief devices daily prn, May go on CLAUDIA w/family/respon republican w/meds at nurse discretion PRN, May consult with Dentist, Crystallography Teacher, Stacker Operator PRN - Advance Directives Code Status: Full [...] patient's written consent. Documented By: Jenaro Morales SPORTS MANAGEMENT INTERN Signed By: 04/27/20 1328 04/27/20 1601 DD/ 1326 Initialized By: [id number] [facility] OT Discharge Noteon 04-27-19 OT Discharge Note Occupational Therapy OT Rehab/Swing Discharge Instruction Start: 04/13/20 11:04 Freq: Status: Active Protocol: Document 04/27/20 13:59 [facility] (Rec: 04/27/20 14:18 [facility] [id number]) Occupational Therapy Discharge General Discharge Date 04/27/20 [...] Draft Until Electronically Signed by Supervising Therapist [facility] OT Noteon 04-27-2020 OT Note Weekly Rehab Team Goal Weekly Rehab Team Goals Start: 04/12/20 18:53 Freq: QWEEK Status: Active Protocol: Activity Type Activity Date Activity User E-Sign Co-Sign Detail Recorded Client Recorded Date Recorded By Document 04/27/20 09:59 KMT [id number] 04/27/20 10:06 KMT 04/27/20 09:59 Mobility (PT/OT/TR) [...] Weekly Goal Good- Date 04/20/20 Self Care (OT/NSG/MEDICAL VOUCHER CLERK/PT) UE Dressing Current Status s/u UE Dressing Weekly Goal Mod I Date 04/27/20 LE Dressing Current Status sba for balance in standing only LE Dressing Weekly Goal Mod I Date 04/27/20 Grooming Current Status s/u assist Grooming Weekly Goal Mod I Date 04/27/20 Feeding Current Status Independent Feeding Weekly Goal same Date 04/27/20 Housekeeping Meal Preparation Current Tolerates 3-4 [...] Date 04/21/20 OT information entered by Fidelia ESPINOSA/Jaye Smith [facility] OT Swing/Rehab Daily Noteon 04-27-2020 OT Swing/Rehab Daily Note Occupational Therapy OT Rehab/Swing Daily Note Start: 04/13/20 11:04 Freq: Status: Active Protocol: Document 04/27/20 09:49 KMT (Rec: 04/27/20 09:58 KMT [id number]) General/Subjective General Referring Provider Jim Marshall OT Visit # am Diagnosis deconditio OT Treatment Diagnosis Muscle weakness (generalized) Additional OT Treatment Diagnosis/ Dx: Physical deconditioning s/ Clarification p hospitalization for COVID-19 pneumonia, bacterial pneumonia, acute respiratory failure with hypoxia Subjective Subjective pleasant, reports shower felt good Restrictions Weight Bearing Restrictions/Precauti ons fall risk, bed/chair alarms, supplemental O2 with oximask, recent loss of spouse, SHOALWATER, wound on sacrum Objective Vital Signs Vitals [...] Until Electronically Signed by Supervising Therapist Normal [facility] POC Glucometer Teston 2020 Glucose [Mass/Vol] 167 mg/dL High 70-99 [facility] Comment on above: Performed By: #### P OCGLUCOMETER #### [facility] [address] [place] [address] Glucose [Mass/Vol] 121 mg/dL High 70-99 [facility] Comment on above: Performed By: #### P OCGLUCOMETER ####[facility] [id number] [place] [address] Glucose [Mass/Vol] 171 mg/dL High 70-99 [facility] Comment on above: Performed By: #### P OCGLUCOMETER ####[facility] [id number] [place] [address] Glucose [Mass/Vol] 113 mg/dL High 70-99 [facility] Comment on above: Performed By: #### P OCGLUCOMETER ####[facility] [id number] [place] [address] Glucose [Mass/Vol] 203 mg/dL High 70-99 [facility] Comment on above: Performed By: #### P OCGLUCOMETER #### [facility] [address] [place] [address] Glucose [Mass/Vol] 105 mg/dL High 70-99 [facility] Comment on above: Performed By: #### P OCGLUCOMETER #### [facility] [address] [place] [address] PT Discharge Noteon 04-27-19 21 PT Discharge Note PT Rehab/Swing Discharge Start: 04/13/20 08:19 Freq: Status: Discharge Protocol: Document 04/27/20 13:57 MW (Rec: 04/27/20 14:48 MW [id number]) Physical Therapy Discharge General Discharge Date 04/27/20 Referring Provider Jim Brennermichellrob Diagnosis deconditio PT Treatment Diagnosis Other malaise Additional PT Treatment Diagnosis/ Medical Dx: physical Clarification deconditioning s/p hospitilization for COVID-19 pneumonia, bacterial pneumonia , acute respiratory failure with hypoxia Reason for Discharge Transfer (other facility/level of care) Restrictions/Precauti ons fall risk, bed/chair alarms, supplemental O2 with oximask, recent loss of spouse, SHOALWATER, wound on sacrum Goal Review Physical Therapy STG's Within 3 weeks: 1. (Met) Patient will complete bed mobility (supine to sitting EOB) at [facility] to promote independence within home. 2. (Not Met: requires Ktaie to modA with FWW depending on height surfaces) Patient will perform sit to stand transfers from varying surfaces with FWW at [facility]. 3. (Nearly Met: amb 150ft with FWW at [facility] and therapist managing O2 tank/line) Patient will [...] scoring 33% impairment or better on the [facility] AM-PAC ' 6-Clicks' Basic Mobility (V2) [...] with exertional activity. Patient is transferring from [facility] rehab to SNF/ECF for more appropriate [...] fatigue. Discharge Location/Services Patient being transferred from [facility] rehab to SNF/ECF for more appropriate care. Summary Summation Outcome Measures/Standardized Assessment [facility]-PAC '6- Used Clicks' Basic Mobility *V2* Inpatient Short Form: -PAC Raw Score=18; CMS Score=40% Impairment Discharge Assessment [...] highly benefit from skilled PT services at [facility] with focus on strength training, balance training, and gait training to optimize functional recovery and restore to PLOF. Charge Sheet G-Code Documentation Complete PT Charges/Documentation Finished? Yes Last Visit Is patient being discharged from PT Yes today? Preliminary Draft Until Electronically Signed by Supervising Therapist Sarah [facility] PT Rehab/Swing Daily Noteon 04-27-2020 PT Rehab/Swing Daily Note Physical Therapy PT Rehab/Swing Daily Note. Start: 04/13/20 08:19 Freq: Status: Active Protocol: Document 04/27/20 10:16 BLG (Rec: 04/27/20 10:18 BLG [id number]) General/Subjective General Date of Admission 04/12/20 Referring Provider Jim Marshall PT Visit # AM Diagnosis deconditio PT Treatment Diagnosis Other malaise Additional PT Treatment Diagnosis/ Medical Dx: physical Clarification deconditioning s/p hospitilization for COVID-19 pneumonia, bacterial pneumonia , acute respiratory failure with hypoxia Subjective Subjective Pt seated EOB finishing self care act with WOODYARD OPERATOR when MILLER APPRENTICE arrived for session. Pt stated increased fatigue at start of session yet stated he is willing to participate. Resp. therapy arrived at start of session to administer meds. Pt 's O2 on 3L of portable O2 at start of session: 93%. Precautions Restrictions/Precauti ons fall risk, bed/chair alarms, supplemental O2 with oximask, recent loss of spouse, SHOALWATER, wound on sacrum Objective Mobility Transfers Sit->stand [...] when setting up to transfer surfaces-50'/150'-CGA with MILLER APPRENTICE managing portable O2 tank. Assistive Devices Rolling [...] Draft Until Electronically Signed by Supervising Therapist [facility] PT Rehab/Swing Daily Note Physical Therapy PT Rehab/Swing Daily Note. Start: 04/13/20 08:19 Freq: Status: Active Protocol: Document 04/27/20 08:05 [facility] (Rec: 04/27/20 08:23 [facility] [id number]) General/Subjective General Date of Admission 04/12/20 Referring Provider Jim Marshall PT Visit # ADL Diagnosis deconditio PT Treatment Diagnosis Other malaise Additional PT Treatment Diagnosis/ Medical Dx: physical Clarification deconditioning s/p hospitilization for COVID-19 pneumonia, bacterial pneumonia , acute respiratory failure with hypoxia Subjective Subjective Pt supine in bed when MILLER APPRENTICE arrived for session this date. Pt pleasant and willing to get OOB with no reports of pain. Pt's O2 on 3L of wall air once seated EOB: 88% that recovered to 92% with verbal cues for proper breathing technique. Precautions Restrictions/Precauti ons fall risk, bed/chair alarms, supplemental O2 with oximask, recent loss of spouse, SHOALWATER, wound on sacrum Objective Mobility Bed Mobility Supine->Sit-Mod I Transfers Sit->stand from EOB to RW from lower/soft surface-CGA/Min A Sit<->Stand from chair with armrest to RW-[facility] Balance Seated: Mod I Standing: CGA with UE Support Gait Pt amb with RW with MILLER APPRENTICE managing portable O2 tank with pt presenting with a narrow [place] with B LE ER with a step through gait pattern with verbal cues required to maintain use of AD while setting up to transfer surfaces-[facility] 75' x 2 Assistive Devices Rolling Walker Endurance Fair+ Other Dressing act seated at EOB without assistance needed from MILLER APPRENTICE Therapeutic Exercises Therapeutic Exercise Seated ther ex [...] sit-> Stand from chair with armrests at [facility] f/b amb as listed above with [...] Until Electronically Signed by Supervising Therapist Sarah [facility] OT Noteon 04-26-2020 OT Note Weekly Rehab Team Goal Weekly Rehab Team Goals Start: 04/12/20 18:53 Freq: QWEEK Status: Active Protocol: Activity Type Activity Date Activity User E-Sign Co-Sign Detail Recorded Client Recorded Date Recorded By Document 04/26/20 10:44 [facility] [id number] 04/26/20 10:47 [facility] 04/26/20 10:44 Mobility (PT/OT/TR) Bed Mobility Current [...] Weekly Goal Good- Date 04/20/20 Self Care (OT/NSG/MEDICAL VOUCHER CLERK/PT) UE Dressing Current Status setup/sba, cues to [...] Status Date 04/21/20 OT information entered by JHON Suresh/Jaye Smith [facility] OT Swing/Rehab Daily Noteon 04-26-2020 OT Swing/Rehab Daily Note Occupational Therapy OT Rehab/Swing Daily Note Start: 04/13/20 11:04 Freq: Status: Active Protocol: Document 04/26/20 14:29 [facility] (Rec: 04/26/20 14:36 TGS [id number]) General/Subjective General Referring Provider Jim Marshall OT Visit # pm Diagnosis deconditio OT Treatment Diagnosis Muscle weakness (generalized) Additional OT Treatment Diagnosis/ Dx: Physical deconditioning s/ Clarification p hospitalization for COVID-19 pneumonia, bacterial pneumonia, acute respiratory failure with hypoxia Subjective Subjective Patient is pleasant and cooperative. Restrictions Weight Bearing Restrictions/Precauti ons fall risk, bed/chair alarms, supplemental O2 with oximask, recent loss of spouse, SHOALWATER, wound on sacrum Objective Functional Ability ADL's [...] Draft Until Electronically Signed by Supervising Therapist [facility] OT Swing/Rehab Daily Note Occupational Therapy OT Rehab/Swing Daily Note Start: 04/13/20 11:04 Freq: Status: Active Protocol: Document 04/26/20 10:22 TGS (Rec: 04/26/20 10:30 TGS [id number]) General/Subjective General Referring Provider Jim Marshall OT Visit # am Diagnosis deconditio OT Treatment Diagnosis Muscle weakness (generalized) Additional OT Treatment Diagnosis/ Dx: Physical deconditioning s/ Clarification p hospitalization for COVID-19 pneumonia, bacterial pneumonia, acute respiratory failure with hypoxia Subjective Subjective pleasant Restrictions Weight Bearing Restrictions/Precauti ons fall risk, bed/chair alarms, supplemental O2 with oximask, recent loss of spouse, SHOALWATER, wound on sacrum Rehab Education Education Provided Education Provided: Details Family education with patient, patient's sons, PT, OT, RT, and SW. Discussed patient's current status with self care tasks and transfers and current status toward goals. Recommendations including 24/7 supervision with hands on assist due to [...] facilities. Assessment/Plan Assessment Assessment Family meeting from [id number] Plan Plan ADLs, bed mobility, increase activity tolerance Time Started 09:40 Time Ended 10:20 Total Treatment Time (Min) (min) 15 Timed Code Treatment Minutes (min) 15 Charge Sheet G-Code Therapies Protocol: REHAB.8MIN Self Care/Home Management 1 Documentation Complete OT Charges/Documentation Finished? Yes Last Visit Is patient being discharged from OT No today? Preliminary Draft Until Electronically Signed by Supervising Therapist [facility] OT Swing/Rehab Daily Note Occupational Therapy OT Rehab/Swing Daily Note Start: 04/13/20 11:04 Freq: Status: Active Protocol: Document 04/26/20 09:32 TGS (Rec: 04/26/20 09:41 TGS [id number]) General/Subjective General Referring Provider Jim Marshall OT [...] O2 with oximask, recent loss of spouse, SHOALWATER, wound on sacrum Objective Vital Signs Vitals [...] Draft Until Electronically Signed by Supervising Therapist [facility] PT Rehab/Swing Daily Noteon 04-26-2020 PT Rehab/Swing Daily Note Physical Therapy PT Rehab/Swing Daily Note. Start: 04/13/20 08:19 Freq: Status: Active Protocol: Document 04/26/20 14:12 HMT (Rec: 04/26/20 14:34 HMT [id number]) General/Subjective General Date of Admission 04/12/20 Referring Provider Jim Marhsall PT Visit # pm Diagnosis deconditio PT Treatment Diagnosis Other malaise Additional PT Treatment Diagnosis/ Medical Dx: physical Clarification deconditioning s/p hospitilization for COVID-19 pneumonia, bacterial pneumonia , acute respiratory failure with hypoxia Subjective Subjective Pt notes no new c/o this pm, family left to return home. Precautions Restrictions/Precauti ons fall risk, bed/chair alarms, supplemental O2 with oximask, recent loss of spouse, SHOALWATER, wound on sacrum Objective Mobility Bed Mobility [...] easily. Disposition at end of Eval/Treatment Bathroom/Bedside Commode,RN/ TEENAGE BABYSITTER informed,All needs met Plan Plan Progress standing therex. Time Started 13:00 Time Ended 13:25 Total Treatment Time (Min) (min) 25 Timed Code Treatment Minutes (min) 25 Charge Sheet G-Code Therapies Protocol: REHAB.8MIN Therapeutic Exercise 1 Gait Training 1 Documentation Complete PT Charges/Documentation Finished? Yes Last Visit Is patient being discharged from PT No today? Preliminary Draft Until Electronically Signed by Supervising Therapist [facility] PT Rehab/Swing Daily Note Physical Therapy PT Rehab/Swing Daily Note. Start: 04/13/20 08:19 Freq: Status: Active Protocol: Document 04/26/20 10:24 HMT (Rec: 04/26/20 10:44 HMT [id number]) General/Subjective General Date of Admission 04/12/20 Referring [...] O2 with oximask, recent loss of spouse, SHOALWATER, wound on sacrum Rehab Education Education Provided Education Provided: Details Family meeting today completed with patient, 2 sons and another family member. INSTRUCTOR KNITTING, OT, and recreational therapy also present. Meeting [...] Family has decided to be d/c to [facility] for further skilled care. Teaching Recipient Patient,Family [...] Draft Until Electronically Signed by Supervising Therapist [facility] PT Rehab/Swing Daily Note Physical Therapy PT Rehab/Swing Daily Note. Start: 04/13/20 08:19 Freq: Status: Active Protocol: Document 04/26/20 08:15 TLW (Rec: 04/26/20 08:26 TLW [id number]) General/Subjective General Date of Admission 04/12/20 Referring [...] O2 with oximask, recent loss of spouse, SHOALWATER, wound on sacrum Objective Mobility Bed Mobility [...] Until Electronically Signed by Supervising Therapist Normal [facility] Internal Med Progress Noteon 04-25-2020 Internal Med Progress Note [facility] [address] [place] [id number] Internal Med Progress Note Signed PRELIMINARY DRAFT REPORT UNTIL ELECTRONICALLY SIGNED PATIENT: Mick Cottrell MR#: [id number] : 1940 AGE/SEX: 79 / M ADMITTED: 04/12/20 1837 OUTSIDE LOCN: LOCATION: [address] ATTENDING: Jim Marshall MD cc: ; [...] Diabetes mellitus type: type 2 Diabetes mellitus senior care insulin use: without rat exterminator use Diabetes mellitus complication status: without complication [...] HTN, DM2, BPH who was admitted at [facility] on 03/05 with cough, SOB, and malaise [...] and oxygenation. He was transferred to our [facility] during that hospitalization as lateral transfer to continue his further acute medical care and eventually transitioning him to swing bed for his physical deconditioning. When he was in rehab facility one day he became more hypoxic with worsening respiratory failure. He got readmitted at [facility] on 03/28/2020 with acute hypoxic resp failure due to multi focal pneumonia. He happened to have hemoptysis too. He was evaluated by Evaluation Manager who held his anti coag Eliquis and continued IV Decadran and empirical abx Levaquin. His hemoptysis resolved and his oxygen requirement came down to 4-6 lit now. Due to bed crunch for Covid positive patients at [facility] he was sent to our facility [facility] as lateral trasnfer to continue further [...] Care Provider] - Documented By: Jenaro Morales [employer] INTERN Signed By: 04/25/20 1517 DD/ 151 Initialized By: [id number] [facility] OT Swing/Rehab Daily Noteon 04-25-2020 OT Swing/Rehab Daily Note Occupational Therapy OT Rehab/Swing Daily Note Start: 04/13/20 11:04 Freq: Status: Active Protocol: Document 04/25/20 15:02 KMT (Rec: 04/25/20 15:07 KMT [id number]) General/Subjective General Referring Provider Jim Marshall OT Visit # am Diagnosis deconditio OT Treatment Diagnosis Muscle weakness (generalized) Additional OT Treatment Diagnosis/ Dx: Physical deconditioning s/ Clarification p hospitalization for COVID-19 pneumonia, bacterial pneumonia, acute respiratory failure with hypoxia Subjective Subjective reports getting tired Restrictions Weight Bearing Restrictions/Precauti ons fall risk, bed/chair alarms, supplemental O2 with oximask, recent loss of spouse, SHOALWATER, wound on sacrum Objective Functional Ability ADL's [...] Draft Until Electronically Signed by Supervising Therapist [facility] OT Swing/Rehab Daily Note Occupational Therapy OT Rehab/Swing Daily Note Start: 04/13/20 11:04 Freq: Status: Active Protocol: Document 04/25/20 09:35 MEC (Rec: 04/25/20 09:37 MEC [id number]) General/Subjective General Referring Provider Jim Brennershahnazjeanne OT [...] O2 with oximask, recent loss of spouse, SHOALWATER, wound on sacrum Objective Vital Signs Vitals [...] Until Electronically Signed by Supervising Therapist Normal [facility] POC Glucometer Teston 2020 Glucose [Mass/Vol] 118 mg/dL High 70-99 [facility] Comment on above: Performed By: #### P OCGLUCOMETER ####[facility] [address] [place] [address] Glucose [Mass/Vol] 107 mg/dL High 70-99 [facility] Comment on above: Performed By: #### P OCGLUCOMETER ####[facility] [address] [place] [address] Glucose [Mass/Vol] 203 mg/dL High 70-99 [facility] Comment on above: Performed By: #### P OCGLUCOMETER ####[facility] [address] [place] [address] Glucose [Mass/Vol] 137 mg/dL High 70-99 [facility] Comment on above: Performed By: #### P OCGLUCOMETER ####[facility] [address] [place] [address] Glucose [Mass/Vol] 161 mg/dL High 70-99 [facility] Comment on above: Performed By: #### P OCGLUCOMETER #### [facility] [address] [place] [address] Glucose [Mass/Vol] 91 mg/dL Normal 70-99 [facility] Comment on above: Performed By: #### P OCGLUCOMETER #### [facility] [address] [place] [address] PT Rehab/Swing Daily Noteon 04-25-2020 PT Rehab/Swing Daily Note Physical Therapy PT Rehab/Swing Daily Note. Start: 04/13/20 08:19 Freq: Status: Active Protocol: Document 04/25/20 13:15 HMT (Rec: 04/25/20 13:36 HMT [id number]) General/Subjective General Date of Admission 04/12/20 Referring [...] O2 with oximask, recent loss of spouse, SHOALWATER, wound on sacrum Objective Mobility Transfers sit-stand [...] Draft Until Electronically Signed by Supervising Therapist [facility] PT Rehab/Swing Daily Note Physical Therapy PT Rehab/Swing Daily Note. Start: 04/13/20 08:19 Freq: Status: Active Protocol: Document 04/25/20 10:25 MJS (Rec: 04/25/20 10:39 MJS [id number]) General/Subjective General Date of Admission 04/12/20 Referring [...] O2 with oximask, recent loss of spouse, SHOALWATER, wound on sacrum Objective Mobility Transfers sit-stand [...] Disposition at end of Eval/Treatment In bed,Bed Alarm,RN/TEENAGE BABYSITTER informed,Call light/phone within reach,Tray table within reach [...] Until Electronically Signed by Supervising Therapist Normal [facility] Basic Metabolic Panelon 03-27 Calcium [Mass/Vol] 8.6 mg/dL Normal 8.6-10.3 [facility] Comment on above: Performed By: #### B MP, MG ####[facility] [address] [place] [address] Chloride [Moles/Vol] 103 mmol/L Normal 98-107 [facility] Comment on above: Performed By: #### B MP, MG ####[address] [address] CO2 [Moles/Vol] 31 mmol/L High 23-29 [facility] Comment on above: Performed By: #### B MP, MG ####[address] [address] Creatinine [Mass/Vol] 0.46 mg/dL Low 0.70-1.30 [facility] Comment on above: Performed By: #### B MP, MG ####[address] [address] eGFR For Americans > 60 Normal > 60 [facility] Comment on above: Result Comment: eGFR = Estimated Glomerular Filtration Rate reported as mL/min/1.73 square meters Chronic Kidney Disease: < 60; Kidney failure: < 15 Performed By: #### B MP, MG ####[address] [address] eGFR For Non- Americans > 60 Normal > 60 [facility] Comment on above: Performed By: #### B MP, MG ####[address] [address] Glucose [Mass/Vol] 114 mg/dL High 70-105 [facility] Comment on above: Performed By: #### B MP, MG ####[address] [address] Osmolality,Calculated 294 Normal 280-300 [facility] Comment on above: Performed By: #### B MP, MG ####[facility] [address] [place] [address] Potassium [Moles/Vol] 3.8 mmol/L Normal 3.5-5.1 [facility] Comment on above: Performed By: #### B MP, MG ####[facility] [address] [place] [address] Sodium [Moles/Vol] 140 mmol/L Normal 136-145 [facility] Comment on above: Performed By: #### B MP, MG ####[facility] [address] [place] [address] Urea nitrogen [Mass/Vol] 21 mg/dL Normal 8-23 [facility] Comment on above: Performed By: #### B MP, MG ####[facility] [address] [place] [address] Urea nitrogen/Creatinine [Mass ratio] 46 mg/mg High 6-26 [facility] Comment on above: Performed By: #### B MP, MG ####[facility] [address] [place] [address] Complete Blood Count w/o Dif brandon 04-24-2020 Platelets (Bld) [#/Vol] 80 K/mcL Low 140-400 [facility] Comment on above: Performed By: #### P OCGLUCOMETER #### [facility] Laboratory [address] [place] [address] Erythrocyte distribution width (RBC) [Ratio] 17.3 % High 11.5-14.5 [facility] Comment on above: Performed By: #### P OCGLUCOMETER #### [facility] [address] [place] [address] Hematocrit (Bld) [Volume fraction] 31.9 % Low 37.5-50.1 [facility] Comment on above: Performed By: #### P OCGLUCOMETER #### [facility] [address] [place] [address] Hemoglobin (Bld) [Mass/Vol] 10.2 g/dL Low 12.9-16.9 [facility] Comment on above: Performed By: #### P OCGLUCOMETER #### [facility] [address] [place] [address] MCH (RBC) [Entitic mass] 32.0 g/dL Normal 31.6-35.5 [facility] Comment on above: Performed By: #### P OCGLUCOMETER #### [facility] [address] [place] [address] MCH (RBC) [Entitic mass] 31.9 pg Normal 28.0-33.3 [facility] Comment on above: Performed By: #### P OCGLUCOMETER #### [facility] [address] [place] [address] MCV (RBC) [Entitic vol] 99.7 fL Normal 83.0-100.0 [facility] Comment on above: Performed By: #### P OCGLUCOMETER #### [facility] [address] [place] [address] Platelet mean volume (Bld) [Entitic vol] 12.0 fL Normal 9.4-12.4 [facility] Comment on above: Performed By: #### P OCGLUCOMETER #### [facility] [address] [place] [address] RBC (Bld) [#/Vol] 3.20 M/mcL Low 4.19-5.50 [facility] Comment on above: Performed By: #### P OCGLUCOMETER #### [facility] [address] [place] [address] WBC (Bld) [#/Vol] 5.1 K/mcL Normal 4.3-11.1 [facility] Comment on above: Performed By: #### P OCGLUCOMETER #### [facility] [address] [place] [address] [phone] D-Dimeron 04-24-2020 D-Dimer 2316 ng/mLFEU High 0-500 [facility] Comment on above: Result Comment: A po sitive D-Dimer result does not predict a specific disease. Result should be interpreted in conjunction with the patient's medical history, clinical presentation, and other findings. Performed By: #### D D ####[facility] [address] [place] [address] Magnesiumon 04-24-2020 Magnesium [Mass/Vol] 1.3 mg/dL Low 1.6-2.6 [facility] Comment on above: Performed By: #### B MP, MG ####[facility] [address] [place] [address] POC Glucometer Teston 2020 Glucose [Mass/Vol] 134 mg/dL High 70-99 [facility] Comment on above: Performed By: #### P OCGLUCOMETER #### [facility] [address] [place] [address] [phone] Glucose [Mass/Vol] 182 mg/dL High 70-99 [facility] Comment on above: Performed By: #### P OCGLUCOMETER ####[facility] [address] [place] [address] Internal Med Progress Noteon 04-23-2020 Internal Med Progress Note [address] [phone] Internal Med Progress Note Signed PRELIMINARY DRAFT REPORT UNTIL ELECTRONICALLY SIGNED PATIENT: Mick Cottrell MR#: [id number] : 1940 AGE/SEX: 79 / M ADMITTED: 04/12/20 1837 OUTSIDE LOCN: [address] ATTENDING: Jim Marshall MD cc: ; Date [...] Diabetes mellitus type: type 2 Diabetes mellitus rat exterminator insulin use: without rat exterminator use Diabetes mellitus complication status: without complication [...] HTN, DM2, BPH who was admitted at [facility] on 03/05 with cough, SOB, and malaise [...] and oxygenation. He was transferred to our [facility] during that hospitalization as lateral tr ansfer to continue his further acute medical care and eventually transitioning him to swing bed for his physical deconditioning. When he was in rehab facility one day he became more hypoxic with worse annalisa respiratory failure. He got readmitted at [facility] on 03/28/2020 with acute hypoxic resp failure due to multi focal pneumonia. He happened to have hemoptysis too. He was evaluated by Evaluation Manager who held his anti coag Eliquis and continued IV Decadran and empirical abx Levaquin. His hemoptysis res olved and his oxygen requirement came down to 4-6 lit now. Due to bed crunch for Covid positive aggie ents at [facility] he was sent to our facility [facility] as lateral trasnfer to continue further medical care a nd possible rehab when he becomes more medically stable. We continued his Decadron and other support pollo measures. His symptoms imroved and able to participate in rehab. He was transferred to rehab fac [facility]. sitting in chair, alert and oriented X4. [...] By: 04/23/20 1307 DD/ 1304 Initialized By: [id number] Normal [facility] OT Swing/Rehab Daily Noteon 04-23-2020 OT Swing/Rehab Daily Note Occupational Therapy OT Rehab/Swing Daily Note Start: 04/13/20 11:04 Freq: Status: Active Protocol: Document 04/23/20 12:37 VIRGIL (Rec: 04/23/20 12:45 VIRGIL [id number]) General/Subjective General Referring Provider Jim Marshall OT [...] O2 with oximask, recent loss of spouse, SHOALWATER, wound on sacrum Objective Functional Ability ADL's [...] Until Electronically Signed by Supervising Therapist Normal [facility] POC Glucometer Teston 2020 Glucose [Mass/Vol] 135 mg/dL High 70-99 [facility] Comment on above: Performed By: #### P OCGLUCOMETER #### [facility] [address] [place] [address] Glucose [Mass/Vol] 31 mg/dL Critically low 70-99 [facility] Comment on above: Result Comment: Will Repeat Test Performed By: #### P OCGLUCOMETER #### [facility] [address] [place] [address] Glucose [Mass/Vol] 98 mg/dL Normal 70-99 [facility] Comment on above: Performed By: #### P OCGLUCOMETER #### [facility] [address] [place] [address] Glucose [Mass/Vol] 157 mg/dL High 70-99 [facility] Comment on above: Performed By: #### P OCGLUCOMETER ####[facility] [address] [place] [address] Glucose [Mass/Vol] 118 mg/dL High 70-99 [facility] Comment on above: Performed By: #### P OCGLUCOMETER ####[facility] [address] [place] [address] PT Rehab/Swing Daily Noteon 04-23-2020 PT Rehab/Swing Daily Note Physical Therapy PT Rehab/Swing Daily Note. Start: 04/13/20 08:19 Freq: Status: Active Protocol: Document 04/23/20 16:35 DMB (Rec: 04/23/20 16:47 DMB [id number]) General/Subjective General Date of Admission 04/12/20 Referring [...] Draft Until Electronically Signed by Supervising Therapist [facility] OT Swing/Rehab Daily Noteon 04-22-2020 OT Swing/Rehab Daily Note Occupational Therapy OT Rehab/Swing Daily Note Start: 04/13/20 11:04 Freq: Status: Active Protocol: Document 04/22/20 09:47 [facility] (Rec: 04/22/20 09:55 [facility] [id number]) General/Subjective General Referring Provider Jim Marshall OT [...] O2 with oximask, recent loss of spouse, SHOALWATER, wound on sacrum Objective Vital Signs Vitals [...] Until Electronically Signed by Supervising Therapist Normal [facility] POC Glucometer Teston 2020 Glucose [Mass/Vol] 93 mg/dL Normal 70-99 [facility] Comment on above: Performed By: #### P OCGLUCOMETER #### [facility] [address] [place] [address] Glucose [Mass/Vol] 151 mg/dL High 70-99 [facility] Comment on above: Performed By: #### P OCGLUCOMETER ####[facility] [address] [place] [address] Glucose [Mass/Vol] 184 mg/dL High 70-99 [facility] Comment on above: Performed By: #### P OCGLUCOMETER ####[facility] [address] [place] [address] Glucose [Mass/Vol] 116 mg/dL High 70-99 [facility] Comment on above: Performed By: #### P OCGLUCOMETER #### [facility] [address] [place] [address] Glucose [Mass/Vol] 155 mg/dL High 70-99 [facility] Comment on above: Performed By: #### P OCGLUCOMETER ####[facility] [address] [place] [address] PT Rehab/Swing Daily Noteon 04-22-2020 PT Rehab/Swing Daily Note Physical Therapy PT Rehab/Swing Daily Note. Start: 04/13/20 08:19 Freq: Status: Active Protocol: Document 04/22/20 11:33 MJS (Rec: 04/22/20 11:46 MJS [id number]) General/Subjective General Date of Admission 04/12/20 Referring [...] O2 with oximask, recent loss of spouse, SHOALWATER, wound on sacrum Objective Mobility Transfers sit-stand [...] chair in rehab room upon arrival of MILLER APPRENTICE . Started session with transfer from chair [...] Until Electronically Signed by Supervising Therapist Normal [facility] Rehab Psychology Progress No jessica 04-22-2020 Cholesterol [Mass/Vol] [facility] [address] [place] [address] Rehab Psychology Progress Note Signed PRELIMINARY DRAFT REPORT UNTIL ELECTRONICALLY SIGNED PATIENT: Mick Cottrell MR#: [id number] : 1940 AGE/SEX: 79 / M ADMITTED: 04/12/20 1837 OUTSIDE LOCN: LOCATION: [address] ATTENDING: Jim Marshall MD cc: ; [...] By: 04/22/20 1516 DD/ 1508 Initialized By: [id number] Normal [facility] Basic Metabolic Panelon 03-26 Calcium [Mass/Vol] 8.7 mg/dL Normal 8.6-10.3 [facility] Comment on above: Performed By: #### P OCGLUCOMETER #### [facility] [address] [place] [address] Chloride [Moles/Vol] 100 mmol/L Normal 98-107 [facility] Comment on above: Performed By: #### P OCGLUCOMETER #### [facility] [address] [place] [address] CO2 [Moles/Vol] 32 mmol/L High -29 [facility] Comment on above: Performed By: #### P OCGLUCOMETER #### [facility] [address] [place] [address] Creatinine [Mass/Vol] 0.57 mg/dL Low 0.70-1.30 [facility] Comment on above: Performed By: #### P OCGLUCOMETER #### [facility] [address] [place] [address] eGFR For Americans > 60 Normal > 60 [facility] Comment on above: Result Comment: eGFR = Estimated Glomerular Filtration Rate reported as mL/min/1.73 square meters Chronic Kidney Disease: < 60; Kidney failure: < 15 Performed By: #### P OCGLUCOMETER #### [facility] [address] [place] [address] eGFR For Non- Americans > 60 Normal > 60 [facility] Comment on above: Performed By: #### P OCGLUCOMETER #### [facility] [address] [place] [address] 6[address]46 Glucose [Mass/Vol] 99 mg/dL Normal 70-105 [facility] Comment on above: Performed By: #### P OCGLUCOMETER #### [facility] [address] [place] [address] 68255 Osmolality,Calculated 287 Normal 280-300 [facility] Comment on above: Performed By: #### P OCGLUCOMETER #### [facility] [address] [place] [address] 40107 Potassium [Moles/Vol] 3.7 mmol/L Normal 3.5-5.1 [facility] Comment on above: Performed By: #### P OCGLUCOMETER #### [facility] [address] [place] [address] 39488 Sodium [Moles/Vol] 137 mmol/L Normal 136-145 [facility] Comment on above: Performed By: #### P OCGLUCOMETER #### [facility] [address] [place] [address] 91759 Urea nitrogen [Mass/Vol] 21 mg/dL Normal 8-23 [facility] Comment on above: Performed By: #### P OCGLUCOMETER #### [facility] [address] [place] [address] 72909 Urea nitrogen/Creatinine [Mass ratio] 37 mg/mg High 6-26 [facility] Comment on above: Performed By: #### P OCGLUCOMETER #### [facility] [address] [place] [address] 87867 Complete Blood Count w/o Dif brandon 04-21-2020 Platelets (Bld) [#/Vol] 73 K/mcL Low 140-400 [facility] Comment on above: Performed By: #### C BCND ####[facility] [address] [place] [address] 82567 Erythrocyte distribution width (RBC) [Ratio] 17.9 % High 11.5-14.5 [facility] Comment on above: Performed By: #### C BCND ####[address] [address] Hematocrit (Bld) [Volume fraction] 33.7 % Low 37.5-50.1 [facility] Comment on above: Performed By: #### C BCND ####[address] [address] Hemoglobin (Bld) [Mass/Vol] 10.7 g/dL Low 12.9-16.9 [facility] Comment on above: Performed By: #### C BCND ####[address] [address] MCH (RBC) [Entitic mass] 31.8 pg Normal 28.0-33.3 [facility] Comment on above: Performed By: #### C BCND ####[address] [address] MCH (RBC) [Entitic mass] 31.8 g/dL Normal 31.6-35.5 [facility] Comment on above: Performed By: #### C BCND ####[address] [address] MCV (RBC) [Entitic vol] 100.3 fL High 83.0-100.0 [facility] Comment on above: Performed By: #### C BCND ####[address] [address] Platelet mean volume (Bld) [Entitic vol] 12.4 fL Normal 9.4-12.4 [facility] Comment on above: Performed By: #### C BCND ####[address] [address] RBC (Bld) [#/Vol] 3.36 M/mcL Low 4.19-5.50 [facility] Comment on above: Performed By: #### C BCND ####[facility] [address] [place] [address] 84390 WBC (Bld) [#/Vol] 6.9 K/mcL Normal 4.3-11.1 [facility] Comment on above: Performed By: #### C BCND ####[facility] [address] [place] [address] [phone] D-Dimeron 04-21-2020 D-Dimer 1958 ng/mLFEU High 0-500 [facility] Comment on above: Result Comment: A po sitive D-Dimer result does not predict a specific disease. Result should be interpreted in conjunction with the patient's medical history, clinical presentation, and other findings. Performed By: #### D D ####[facility] [address] [place] [address] [phone] Internal Med Progress Noteon 04-21-2020 Internal Med Progress Note [facility] [address] [place] [address] Internal Med Progress Note Signed PRELIMINARY DRAFT REPORT UNTIL ELECTRONICALLY SIGNED PATIENT: Mick Cottrell MR#: [id number] : 1940 AGE/SEX: 79 / M ADMITTED: 04/12/20 1837 OUTSIDE LOCN: LOCATION: [address] ATTENDING: Jim Marshall MD cc: ; [...] Diabetes mellitus type: type 2 Diabetes mellitus rat exterminator insulin use: without senior care use Diabetes mellitus complication status: without complication [...] HTN, DM2, BPH who was admitted at [facility] on 03/05 with cough, SOB, and malaise [...] and oxygenation. He was transferred to our [facility] during that hospitalization as lateral transfer to continue his further acute medical care and eventually transitioning him to swing bed for his physical deconditioning. When he was in rehab facility one day he became more hypoxic with worsening respiratory failure. He got readmitted at [facility] on 03/28/2020 with acute hypoxic resp failure due to multi focal pneumonia. He happened to have hemoptysis too. He was evaluated by Evaluation Manager who held his anti coag Eliquis and continued IV Decadran and empirical abx Levaquin. His hemoptysis resolved and his oxygen requirement came down to 4-6 lit now. Due to bed crunch for Covid positive patients at [facility] he was sent to our facility [facility] as lateral trasnfer to continue further [...] Documented By: Capri Iqbal APN Signed By: 04/21/201638 DD/ 35 Initialized By: [id number] Normal [facility] Magnesiumon 04-21-2020 Magnesium [Mass/Vol] 1.4 mg/dL Low 1.6-2.6 [facility] Comment on above: Performed By: #### P OCGLUCOMETER #### [facility] [address] [phone] OT Swing/Rehab Daily Noteon 04-21-2020 OT Swing/Rehab Daily Note Occupational Therapy OT Rehab/Swing Daily Note Start: 04/13/20 11:04 Freq: Status: Active Protocol: Document 04/21/20 13:16 ECR (Rec: 04/21/20 13:29 ECR [id number]) General/Subjective General Referring Provider Jim Marshall OT [...] O2 with oximask, recent loss of spouse, SHOALWATER, wound on sacrum Objective Vital Signs Vitals [...] Draft Until Electronically Signed by Supervising Therapist [facility] OT Swing/Rehab Daily Note Occupational Therapy OT Rehab/Swing Daily Note Start: 04/13/20 11:04 Freq: Status: Active Protocol: Document 04/21/20 12:17 ECR (Rec: 04/21/20 12:25 ECR [id number]) General/Subjective General Referring Provider Jim Marshall OT [...] O2 with oximask, recent loss of spouse, SHOALWATER, wound on sacrum Objective Vital Signs Vitals [...] Until Electronically Signed by Supervising Therapist Normal [facility] POC Glucometer Teston 2020 Glucose [Mass/Vol] 154 mg/dL High 70-99 [facility] Comment on above: Performed By: #### P OCGLUCOMETER ####[facility] [address] [place] [address] Glucose [Mass/Vol] 131 mg/dL High 70-99 [facility] Comment on above: Performed By: #### P OCGLUCOMETER #### [facility] [address] [place] [address] Glucose [Mass/Vol] 117 mg/dL High 70-99 [facility] Comment on above: Performed By: #### P OCGLUCOMETER ####[facility] [address] [place] [address] Glucose [Mass/Vol] 191 mg/dL High 70-99 [facility] Comment on above: Performed By: #### P OCGLUCOMETER ####[facility] [address] [place] [address] 47668 Glucose [Mass/Vol] 102 mg/dL High 70-99 [facility] Comment on above: Performed By: #### P OCGLUCOMETER ####[facility] [address] [place] [address] Glucose [Mass/Vol] 131 mg/dL High 70-99 [facility] Comment on above: Result Comment: Glu2 : RN Notified Performed By: #### P OCGLUCOMETER #### [facility] [address] [place] [address] Glucose [Mass/Vol] 334 mg/dL High 70-99 [facility] Comment on above: Performed By: #### P OCGLUCOMETER #### [facility] [address] [place] [address] Glucose [Mass/Vol] 86 mg/dL Normal 70-99 [facility] Comment on above: Performed By: #### P OCGLUCOMETER #### [facility] [address] [place] [address] PT Rehab/Swing Daily Noteon 04-21-2020 PT Rehab/Swing Daily Note Physical Therapy PT Rehab/Swing Daily Note. Start: 04/13/20 08:19 Freq: Status: Active Protocol: Document 04/21/20 14:56 TLW (Rec: 04/21/20 15:11 TLW [id number]) General/Subjective General Date of Admission 04/12/20 Referring [...] O2 with oximask, recent loss of spouse, SHOALWATER, wound on sacrum Objective Mobility Transfers MIN/SBA [...] Draft Until Electronically Signed by Supervising Therapist [facility] PT Rehab/Swing Daily Note Physical Therapy PT Rehab/Swing Daily Note. Start: 04/13/20 08:19 Freq: Status: Active Protocol: Document 04/21/20 12:05 MW (Rec: 04/21/20 12:24 MW [id number]) General/Subjective General Date of Admission 04/12/20 Referring [...] O2 with oximask, recent loss of spouse, SHOALWATER, wound on sacrum Objective Vital Signs Vitals [...] home to promote safety with functional mobility. RT, Pau, also present at end of session and informs patient that he will likely need O2 at home. Patient extremely frustrated and asks "do either of you have a gun I could use." Discussed with patient that he is doing very well and that he has family support. RNMarine, notified regarding patient status and comment. Patient [...] Draft Until Electronically Signed by Supervising Therapist [facility] OT Noteon 04-20-2020 OT Note Weekly Rehab Team Goal Weekly Rehab Team Goals Start: 04/12/20 18:53 Freq: QWEEK Status: Active Protocol: Activity Type Activity Date Activity User E-Sign Co-Sign Detail Recorded Client Recorded Date Recorded By Document 04/20/20 14:32 [facility] [id number] 04/20/20 14:37 [facility] 04/20/20 14:32 Mobility (PT/OT/TR) Bed Mobility Current [...] Weekly Goal Good- Date 04/20/20 Self Care (OT/NSG/MEDICAL VOUCHER CLERK/PT) UE Dressing Current Status setup/sba UE Dressing [...] Status Date 04/20/20 OT information entered by JHON Suresh/Jaye Smith [facility] OT Swing/Rehab Daily Noteon 04-20-2020 OT Swing/Rehab Daily Note Occupational Therapy OT Rehab/Swing Daily Note Start: 04/13/20 11:04 Freq: Status: Active Protocol: Document 04/20/20 14:43 TGS (Rec: 04/20/20 14:46 [facility] [id number]) General/Subjective General Referring Provider Jim Marshall OT [...] O2 with oximask, recent loss of spouse, SHOALWATER, wound on sacrum Objective Vital Signs Vitals [...] Draft Until Electronically Signed by Supervising Therapist [facility] OT Swing/Rehab Daily Note Occupational Therapy OT Rehab/Swing Daily Note Start: 04/13/20 11:04 Freq: Status: Active Protocol: Document 04/20/20 12:01 [facility] (Rec: 04/20/20 12:18 [facility] [id number]) General/Subjective General Referring Provider Jim Marshall OT [...] O2 with oximask, recent loss of spouse, SHOALWATER, wound on sacrum Objective Functional Ability Home [...] Until Electronically Signed by Supervising Therapist Normal [facility] POC Glucometer Teston 2020 Glucose [Mass/Vol] 149 mg/dL High 70-99 [facility] Comment on above: Performed By: #### P OCGLUCOMETER #### [facility] [address] [place] [address] Glucose [Mass/Vol] 152 mg/dL High 70-99 [facility] Comment on above: Result Comment: Glu2 : RN Notified Performed By: #### P OCGLUCOMETER #### [facility] [address] [place] [address] PT Rehab/Swing Daily Noteon 04-20-2020 PT Rehab/Swing Daily Note Physical Therapy PT Rehab/Swing Daily Note. Start: 04/13/20 08:19 Freq: Status: Active Protocol: Document 04/20/20 14:47 MW (Rec: 04/20/20 15:00 MW [id number]) General/Subjective General Date of Admission 04/12/20 Referring [...] O2 with oximask, recent loss of spouse, SHOALWATER, wound on sacrum Objective Vital Signs Vitals [...] transfers as well as LE strengthening in [facility]. Patient on 4L of O2 with exertional [...] Draft Until Electronically Signed by Supervising Therapist [facility] PT Rehab/Swing Daily Note Physical Therapy PT Rehab/Swing Daily Note. Start: 04/13/20 08:19 Freq: Status: Active Protocol: Document 04/20/20 11:29 MW (Rec: 04/20/20 11:42 MW [id number]) General/Subjective General Date of Admission 04/12/20 Referring [...] O2 with oximask, recent loss of spouse, SHOALWATER, wound on sacrum Objective Vital Signs Vitals [...] level. He ambulates 75ft with FWW at [facility] and requires increase assistance to manage O2 [...] Until Electronically Signed by Supervising Therapist Normal [facility] Internal Med Progress Noteon 04-19-2020 Internal Med Progress Note [facility] [address] [place] [address] Internal Med Progress Note Signed PRELIMINARY DRAFT REPORT UNTIL ELECTRONICALLY SIGNED PATIENT: Mick Cottrell MR#: [id number] : 1940 AGE/SEX: 79 / M ADMITTED: 04/12/20 1837 OUTSIDE LOCN: LOCATION: [address] ATTENDING: Jim Marshall MD cc: ; Date of Encounter: 04/19/20 Time of Encounter: 13:12 - Assessment and plan (1) Diabetes mellitus Current Visit: Yes Status: Chronic Assessment and plan: Hemoglobin A-1 C is 7.6 from one . Continue fingerstick blood sugar, insulin sliding scale and metformin. Qualifiers: Diabetes mellitus type: type 2 Diabetes mellitus senior care insulin use: without rat exterminator use Diabetes mellitus complication status: without complication [...] HTN, DM2, BPH who was admitted at [facility] on 03/05 with cough, SOB, and malaise [...] and oxygenation. He was transferred to our [facility] during that hospitalization as lateral transfer to continue his further acute medical care and eventually transitioning him to swing bed for his physical deconditioning. When he was in rehab facility one day he became more hypoxic with worsening respiratory failure. He got readmitted at [facility] on 03/28/2020 with acute hypoxic resp failure due to multi focal pneumonia. He happened to have hemoptysis too. He was evaluated by Evaluation Manager who held his anti coag Eliquis and continued IV Decadran and empirical abx Levaquin. His hemoptysis resolved and his oxygen requirement came down to 4-6 lit now. Due to bed crunch for Covid positive patients at [facility] he was sent to our facility [facility] as lateral trasnfer to continue further [...] - Documented By: Capri IqbalN Signed By: 04/19/20 1319 DD/ 1311 Initialized By: [id number] Normal [facility] OT Swing/Rehab Daily Noteon 04-19-2020 OT Swing/Rehab Daily Note Occupational Therapy OT Rehab/Swing Daily Note Start: 04/13/20 11:04 Freq: Status: Active Protocol: Document 04/19/20 15:22 TGS (Rec: 04/19/20 15:51 TGS [id number]) General/Subjective General Referring Provider Jim Marshall OT [...] O2 with oximask, recent loss of spouse, SHOALWATER, wound on sacrum Objective Vital Signs Vitals [...] Draft Until Electronically Signed by Supervising Therapist [facility] OT Swing/Rehab Daily Note Occupational Therapy OT Rehab/Swing Daily Note Start: 04/13/20 11:04 Freq: Status: Active Protocol: Document 04/19/20 10:46 TGS (Rec: 04/19/20 10:49 TGS [id number]) General/Subjective General Referring Provider Jim Marshall OT [...] O2 with oximask, recent loss of spouse, SHOALWATER, wound on sacrum Objective Functional Ability ADL's [...] Draft Until Electronically Signed by Supervising Therapist [facility] POC Glucometer Teston 2020 Glucose [Mass/Vol] 209 mg/dL High 70-99 [facility] Comment on above: Result Comment: Glu2 : RN Notified Performed By: #### P OCGLUCOMETER ####[facility] [address] [place], [place] [phone] Glucose [Mass/Vol] 76 mg/dL Normal 70-99 [facility] Comment on above: Performed By: #### P OCGLUCOMETER #### [facility] [address], [place] [phone] Glucose [Mass/Vol] 117 mg/dL High 70-99 [facility] Comment on above: Performed By: #### P OCGLUCOMETER ####[facility] [address] [place], [place] [phone] PT Rehab/Swing Daily Noteon 04-19-2020 PT Rehab/Swing Daily Note Physical Therapy PT Rehab/Swing Daily Note. Start: 04/13/20 08:19 Freq: Status: Active Protocol: Document 04/19/20 13:56 MJS (Rec: 04/19/20 14:01 MJS [id number]) General/Subjective General Date of Admission 04/12/20 Referring [...] O2 with oximask, recent loss of spouse, SHOALWATER, wound on sacrum Objective Mobility Transfers supine-sit [...] Draft Until Electronically Signed by Supervising Therapist [facility] PT Rehab/Swing Daily Note Physical Therapy PT Rehab/Swing Daily Note. Start: 04/13/20 08:19 Freq: Status: Active Protocol: Document 04/19/20 09:29 [facility] (Rec: 04/19/20 09:31 [facility] [id number]) General/Subjective General Date of Admission 04/12/20 Referring [...] O2 with oximask, recent loss of spouse, SHOALWATER, wound on sacrum Objective Mobility Bed Mobility [...] Draft Until Electronically Signed by Supervising Therapist [facility] OT Swing/Rehab Daily Noteon 04-18-2020 OT Swing/Rehab Daily Note Occupational Therapy OT Rehab/Swing Daily Note Start: 04/13/20 11:04 Freq: Status: Active Protocol: Document 04/18/20 15:11 TGS (Rec: 04/18/20 15:21 TGS [id number]) General/Subjective General Referring Provider Jim Marshall OT [...] O2 with oximask, recent loss of spouse, SHOALWATER, wound on sacrum Objective Vital Signs Vitals [...] Draft Until Electronically Signed by Supervising Therapist [facility] OT Swing/Rehab Daily Note Occupational Therapy OT Rehab/Swing Daily Note Start: 04/13/20 11:04 Freq: Status: Active Protocol: Document 04/18/20 11:53 [facility] (Rec: 04/18/20 12:09 [facility] [id number]) General/Subjective General Referring Provider Jim Marshall OT [...] O2 with oximask, recent loss of spouse, SHOALWATER, wound on sacrum Objective Vital Signs Vitals at time of rehab 3L supplemental O2 throughout, drops as low as 89% with standing tasks oximask donned. Pt declined sponge bath at this time. Setup SBA to maria l pants. Min A sit-> stand transfer, [...] in task. Radha Botello OTR/L, CLT Normal [facility] POC Glucometer Teston 2020 Glucose [Mass/Vol] 176 mg/dL High 70-99 [facility] Comment on above: Performed By: #### P OCGLUCOMETER #### [facility] [address] [place] [address] Glucose [Mass/Vol] 89 mg/dL Normal 70-99 [facility] Comment on above: Performed By: #### P OCGLUCOMETER ####[facility] [address] [place] [address] Glucose [Mass/Vol] 222 mg/dL High 70-99 [facility] Comment on above: Performed By: #### P OCGLUCOMETER ####[facility] [address] [place] [address] Glucose [Mass/Vol] 185 mg/dL High 70-99 [facility] Comment on above: Performed By: #### P OCGLUCOMETER #### [facility] [address] [place] [address] PT Rehab/Swing Daily Noteon 04-18-2020 PT Rehab/Swing Daily Note Physical Therapy PT Rehab/Swing Daily Note. Start: 04/13/20 08:19 Freq: Status: Active Protocol: Document 04/18/20 14:14 MW (Rec: 04/18/20 14:22 MW [id number]) General/Subjective General Date of Admission 04/12/20 Referring [...] O2 with oximask, recent loss of spouse, SHOALWATER, wound on sacrum Objective Vital Signs Vitals [...] hand placement for safe technique Balance sitting: LANCE standing dynamic: CGA with martita UE support; CGA to Katie without UE support when donning pants in standing Gait w/c mobility from room to therapy gym 75ft at [facility]; Amb 50ft (down/back multiple times ) at // bars with martita UE support and at [facility]; only 1 seated rest break; abnormal [...] W. He transfers over to w/c at [facility] and completes another sit to stand transfer then remains in standing to don pants at [facility] to Katie. He progressess to therapy gym via w/c at [facility] and therapist manages O2 tank/ line. Focused [...] Until Electronically Signed by Supervising Therapist Sarah [facility] PT Rehab/Swing Daily Note Physical Therapy PT Rehab/Swing Daily Note. Start: 04/13/20 08:19 Freq: Status: Active Protocol: Document 04/18/20 10:01 HMT (Rec: 04/18/20 10:25 HMT [id number]) General/Subjective General Date of Admission 04/12/20 Referring [...] O2 with oximask, recent loss of spouse, SHOALWATER, wound on sacrum Objective Mobility Bed Mobility [...] Until Electronically Signed by Supervising Therapist Normal [facility] C-Reactive Proteinon 021 CRP [Mass/Vol] mg/L Normal Less than 10 [facility] Comment on above: Performed By: #### C MP, MG, CRP, SILVINO ####[facility] [address] [place] [address] [phone] Complete Blood Count w/o Dif brandon 04-17-2020 Erythrocyte distribution width (RBC) [Ratio] 17.7 % High 11.5-14.5 [facility] Comment on above: Performed By: #### C BCND ####[facility] [address] [place] [address] Hematocrit (Bld) [Volume fraction] 30.6 % Low 37.5-50.1 [facility] Comment on above: Performed By: #### C BCND ####[facility] [address] [place] [address] [phone] Hemoglobin (Bld) [Mass/Vol] 9.9 g/dL Low 12.9-16.9 [facility] Comment on above: Performed By: #### C BCND ####[facility] [address] [place] [address] [phone] MCH (RBC) [Entitic mass] 32.0 pg Normal 28.0-33.3 [facility] Comment on above: Performed By: #### C BCND ####[address] [address] MCH (RBC) [Entitic mass] 32.4 g/dL Normal 31.6-35.5 [facility] Comment on above: Performed By: #### C BCND ####[address] [address] MCV (RBC) [Entitic vol] 99.0 fL Normal 83.0-100.0 [facility] Comment on above: Performed By: #### C BCND ####[address] [address] Platelet mean volume (Bld) [Entitic vol] 12.1 fL Normal 9.4-12.4 [facility] Comment on above: Performed By: #### C BCND ####[address] [address] Platelets (Bld) [#/Vol] 103 K/mcL Low 140-400 [facility] Comment on above: Performed By: #### C BCND ####[address] [address] RBC (Bld) [#/Vol] 3.09 M/mcL Low 4.19-5.50 [facility] Comment on above: Performed By: #### C BCND ####[address] [address] WBC (Bld) [#/Vol] 9.2 K/mcL Normal 4.3-11.1 [facility] Comment on above: Performed By: #### C BCND ####[address] [address] Comprehensive Metabolic Pane marquise 04-17-2020 Albumin [Mass/Vol] 2.6 g/dL Low 3.5-5.7 [facility] Comment on above: Performed By: #### C MP, MG, CRP, SILVINO ####[address] [address] Albumin/Globulin [Mass ratio] 1.6 {ratio} Normal 1.1-2.2 [facility] Comment on above: Performed By: #### C MP, MG, CRP, SILVINO ####[address] [address] ALP [Catalytic activity/Vol] 69 Units/L Normal 34-104 [facility] Comment on above: Performed By: #### C MP, MG, CRP, SILVINO ####[address] [address] ALT [Catalytic activity/Vol] 22 Units/L Normal 7-52 [facility] Comment on above: Performed By: #### C MP, MG, CRP, SILVINO ####[address] [address] AST [Catalytic activity/Vol] 13 Units/L Normal 13-39 [facility] Comment on above: Performed By: #### C MP, MG, CRP, SILVINO ####[address] [address] Bilirubin [Mass/Vol] 0.7 mg/dL Normal 0.3-1.0 [facility] Comment on above: Performed By: #### C MP, MG, CRP, SILVINO ####[address] [address] Calcium [Mass/Vol] 8.5 mg/dL Low 8.6-10.3 [facility] Comment on above: Performed By: #### C MP, MG, CRP, SILVINO ####[address] [address] Chloride [Moles/Vol] 100 mmol/L Normal 98-107 [facility] Comment on above: Performed By: #### C MP, MG, CRP, SILVINO ####[facility] [address] [place] [address]65 CO2 [Moles/Vol] 30 mmol/L High 23-29 [facility] Comment on above: Performed By: #### C MP, MG, CRP, SILVINO ####[facility] [address] [place] [address] Creatinine [Mass/Vol] 0.55 mg/dL Low 0.70-1.30 [facility] Comment on above: Performed By: #### C MP, MG, CRP, SILVINO ####[facility] [address] [place] [address]70 eGFR For Americans > 60 Normal > 60 [facility] Comment on above: Result Comment: eGFR = Estimated Glomerular Filtration Rate reported as mL/min/1.73 square meters Chronic Kidney Disease: < 60; Kidney failure: < 15 Performed By: #### C MP, MG, CRP, SILVINO ####[facility] [address] [place] [address]43 eGFR For Non- Americans > 60 Normal > 60 [facility] Comment on above: Performed By: #### C MP, MG, CRP, SILVINO ####[facility] [address] [place] [address] Globulin (S) [Mass/Vol] 1.6 g/dL Low 2.4-3.5 [facility] Comment on above: Performed By: #### C MP, MG, CRP, SILVINO ####[facility] [address] [place] [address]12 Glucose [Mass/Vol] 105 mg/dL Normal 70-105 [facility] Comment on above: Performed By: #### C MP, MG, CRP, SILVINO ####[facility] [address] [place] [address]26 Osmolality,Calculated 287 Normal 280-300 [facility] Comment on above: Performed By: #### C MP, MG, CRP, SILVINO ####[address] [address] Potassium [Moles/Vol] 3.9 mmol/L Normal 3.5-5.1 [facility] Comment on above: Performed By: #### C MP, MG, CRP, SILVINO ####[address] [address] Protein [Mass/Vol] 4.2 g/dL Low 6.4-8.9 [facility] Comment on above: Performed By: #### C MP, MG, CRP, SILVINO ####[address] [address] Sodium [Moles/Vol] 137 mmol/L Normal 136-145 [facility] Comment on above: Performed By: #### C MP, MG, CRP, SILVION ####[address] [address] Urea nitrogen [Mass/Vol] 21 mg/dL Normal 8-23 [facility] Comment on above: Performed By: #### C MP, MG, CRP, SILVINO ####[facility] [address] [place] [address] Urea nitrogen/Creatinine [Mass ratio] 38 mg/mg High 6-26 [facility] Comment on above: Performed By: #### C MP, MG, CRP, SILVINO ####[address] [address] D-Dimeron 04-17-2020 D-Dimer 1799 ng/mLFEU High 0-500 [facility] Comment on above: Result Comment: A po sitive D-Dimer result does not predict a specific disease. Result should be interpreted in conjunction with the patient's medical history, clinical presentation, and other findings. Performed By: #### D D ####[facility] [address] [place] [address] Ferritinon 04-17-2020 Ferritin [Mass/Vol] 117 ng/mL Normal 20-250 [facility] Comment on above: Performed By: #### C MP, MG, CRP, SILVINO ####[facility] [address] [place] [address] Internal Med Progress Noteon 04-17-2020 Internal Med Progress Note [facility] [address] [place] [address] Internal Med Progress Note Signed PRELIMINARY DRAFT REPORT UNTIL ELECTRONICALLY SIGNED PATIENT: Mick Cottrell MR#: [id number] : 1940 AGE/SEX: 79 / M ADMITTED: 04/12/20 1837 OUTSIDE LOCN: LOCATION: [address] ATTENDING: Jim Marshall MD cc: ; [...] Diabetes mellitus type: type 2 Diabetes mellitus senior care insulin use: without senior care use Diabetes mellitus complication status: without complication [...] HTN, DM2, BPH who was admitted at [facility] on 03/05 with cough, SOB, and malaise [...] and oxygenation. He was transferred to our [facility] during that hospitalization as lateral transfer to continue his further acute medical care and eventually transitioning him to swing bed for his physical deconditioning. When he was in rehab facility one day he became more hypoxic with worsening respiratory failure. He got readmitted at [facility] on 03/28/2020 with acute hypoxic resp failure due to multi focal pneumonia. He happened to have hemoptysis too. He was evaluated by Evaluation Manager who held his anti coag Eliquis and continued IV Decadran and empirical abx Levaquin. His hemoptysis resolved and his oxygen requirement came down to 4-6 lit now. Due to bed crunch for Covid positive patients at [facility] he was sent to our facility [facility] as lateral trasnfer to continue further [...] Care Provider] - Documented By: Jenaro Morales [employer]OR[employer] MANAGEMENT INTERN Signed By: 04/17/20 1313 DD/ 1305 Initialized By: [id number] Normal [facility] Magnesiumon 04-17-2020 Magnesium [Mass/Vol] 1.5 mg/dL Low 1.6-2.6 [facility] Comment on above: Performed By: #### C MP, MG, CRP, SILVINO ####[facility] [address] [place] [address] POC Glucometer Teston 2020 Glucose [Mass/Vol] 215 mg/dL High 70-99 [facility] Comment on above: Performed By: #### P OCGLUCOMETER #### [facility] Laboratory [address], [place] [phone] (98 Glucose [Mass/Vol] 211 mg/dL High 70-99 [facility] Comment on above: Result Comment: Glu2 : RN Notified Performed By: #### P OCGLUCOMETER ####[facility] [address] [place] [id number] Glucose [Mass/Vol] 101 mg/dL High 70-99 [facility] Comment on above: Result Comment: Glu2 : RN Notified Performed By: #### P OCGLUCOMETER #### [facility] [address], [place] [id number] OT Swing/Rehab Daily Noteon 04-16-2020 OT Swing/Rehab Daily Note Occupational Therapy OT Rehab/Swing Daily Note Start: 04/13/20 11:04 Freq: Status: Active Protocol: Document 04/16/20 12:54 [facility] (Rec: 04/16/20 12:58 [facility] [id number]) General/Subjective General Referring Provider Jim Marshall OT [...] O2 with oximask, recent loss of spouse, SHOALWATER, wound on sacrum Objective Vital Signs Vitals [...] Until Electronically Signed by Supervising Therapist Normal [facility] POC Glucometer Teston 2020 Glucose [Mass/Vol] 160 mg/dL High 70-99 [facility] Comment on above: Performed By: #### P OCGLUCOMETER #### [facility] Laboratory [address] [place] [address] Glucose [Mass/Vol] 177 mg/dL High 70-99 [facility] Comment on above: Performed By: #### P OCGLUCOMETER #### [facility] [address] [place] [address] Glucose [Mass/Vol] 188 mg/dL High 70-99 [facility] Comment on above: Performed By: #### P OCGLUCOMETER ####[facility] [address] [place] [address] Glucose [Mass/Vol] 146 mg/dL High 70-99 [facility] Comment on above: Performed By: #### P OCGLUCOMETER #### [facility] [address] [place] [address] Glucose [Mass/Vol] 221 mg/dL High 70-99 [facility] Comment on above: Performed By: #### P OCGLUCOMETER ####[facility] [address] [place] [address] Glucose [Mass/Vol] 201 mg/dL High 70-99 [facility] Comment on above: Performed By: #### P OCGLUCOMETER #### [facility] [address] [place] [address] Glucose [Mass/Vol] 178 mg/dL High 70-99 [facility] Comment on above: Performed By: #### P OCGLUCOMETER ####[facility] [address] [place] [address] PT Rehab/Swing Daily Noteon 04-16-2020 PT Rehab/Swing Daily Note Physical Therapy PT Rehab/Swing Daily Note. Start: 04/13/20 08:19 Freq: Status: Active Protocol: Document 04/16/20 10:36 ERW (Rec: 04/16/20 11:01 ERW [id number]) General/Subjective General Date of Admission 04/12/20 Referring [...] Until Electronically Signed by Supervising Therapist Normal [facility] Internal Med Progress Noteon 04-15-2020 Internal Med Progress Note [facility] [address] [place] [address] Internal Med Progress Note Signed PRELIMINARY DRAFT REPORT UNTIL ELECTRONICALLY SIGNED PATIENT: Mick Cottrell MR#: [id number] : 1940 AGE/SEX: 79 / M ADMITTED: 04/12/20 1837 OUTSIDE LOCN: [address] ATTENDING: Jim Marshall MD cc: ; Date [...] Diabetes mellitus type: type 2 Diabetes mellitus senior care insulin use: without senior care use Diabetes mellitus complication status: without complication [...] HTN, DM2, BPH who was admitted at [facility] on 03/05 with cough, SOB, and malaise [...] and oxygenation. He was transferred to our [facility] during that hosp italization as lateral transfer to continue his further acute medical care and eventually transition ing him to swing bed for his physical deconditioning. When he was in rehab facility one day he becam e more hypoxic with worsening respiratory failure. He got readmitted at [facility] on 03/28/2020 with acute hypoxic resp failure due to multi focal pneumonia. He happened to have hemoptysis too. He was evalu ated by Evaluation Manager who held his anti coag Eliquis and continued IV Decadran and empirical abx Lev aquin. His hemoptysis resolved and his oxygen requirement came down to 4-6 lit now. Due to bed crunc h for Covid positive patients at [facility] he was sent to our facility [facility] as lateral trasnfer to contin ue [...] Care Provider] - Documented By: Jenaro Morales [employer] MANAGEMENT INTERN Signed By: 04/15/20 1407 DD/ 1354 Initialized By: [id number] Normal [facility] OT Swing/Rehab Daily Noteon 04-15-2020 OT Swing/Rehab Daily Note Occupational Therapy OT Rehab/Swing Daily Note Start: 04/13/20 11:04 Freq: Status: Active Protocol: Document 04/15/20 13:49 [facility] (Rec: 04/15/20 13:56 [facility] [id number]) General/Subjective General Referring Provider Jim Marshall OT [...] O2 with oximask, recent loss of spouse, SHOALWATER, wound on sacrum Objective Vital Signs Vitals [...] Draft Until Electronically Signed by Supervising Therapist [facility] OT Swing/Rehab Daily Note Occupational Therapy OT Rehab/Swing Daily Note Start: 04/13/20 11:04 Freq: Status: Active Protocol: Document 04/15/20 11:52 [facility] (Rec: 04/15/20 12:02 [facility] [id number]) General/Subjective General Referring Provider Jim Marshall OT Visit # n/a Diagnosis deconditio OT Treatment Diagnosis Muscle weakness (generalized) Additional OT Treatment Diagnosis/ Dx: Physical deconditioning s/ Clarification p hospitilization for COVID-19 pneumonia, bacterial pneumonia, acute respiratory failure with hypoxia Restrictions Weight Bearing Restrictions/Precauti ons fall risk, bed/chair alarms, supplemental O2 with oximask, recent loss of spouse, SHOALWATER, wound on sacrum Assessment/Plan Assessment Progression Toward [...] Until Electronically Signed by Supervising Therapist Sarah [facility] OT Swing/Rehab Daily Note Occupational Therapy OT Rehab/Swing Daily Note Start: 04/13/20 11:04 Freq: Status: Active Protocol: Document 04/15/20 11:45 [facility] (Rec: 04/15/20 11:51 [facility] [id number]) General/Subjective General Referring Provider Jim Marshall OT [...] O2 with oximask, recent loss of spouse, SHOALWATER, wound on sacrum Objective Vital Signs Vitals [...] Until Electronically Signed by Supervising Therapist Normal [facility] POC Glucometer Teston 2020 Glucose [Mass/Vol] 143 mg/dL High 70-99 [facility] Comment on above: Performed By: #### P OCGLUCOMETER ####[facility] [address] [place], [place] [id number] Glucose [Mass/Vol] 218 mg/dL High 70-99 [facility] Comment on above: Performed By: #### P OCGLUCOMETER #### [facility] [address], [place] [id number] PT Rehab/Swing Daily Noteon 04-15-2020 PT Rehab/Swing Daily Note Physical Therapy PT Rehab/Swing Daily Note. Start: 04/13/20 08:19 Freq: Status: Active Protocol: Document 04/15/20 09:41 HMT (Rec: 04/15/20 10:24 HMT [id number]) General/Subjective General Date of Admission 04/12/20 Referring [...] O2 with oximask, recent loss of spouse, SHOALWATER, wound on sacrum Objective Mobility Bed Mobility [...] Until Electronically Signed by Supervising Therapist Normal [facility] Basic Metabolic Panelon 03-26 Calcium [Mass/Vol] 8.6 mg/dL Normal 8.6-10.3 [facility] Comment on above: Performed By: #### B MP ####[address] [address] Chloride [Moles/Vol] 99 mmol/L Normal 98-107 [facility] Comment on above: Performed By: #### B MP ####[address] [address] CO2 [Moles/Vol] 31 mmol/L High 23-29 [facility] Comment on above: Performed By: #### B MP ####[address] [address] Creatinine [Mass/Vol] 0.62 mg/dL Low 0.70-1.30 [facility] Comment on above: Performed By: #### B MP ####[address] [address] eGFR For Americans > 60 Normal > 60 [facility] Comment on above: Result Comment: eGFR = Estimated Glomerular Filtration Rate reported as mL/min/1.73 square meters Chronic Kidney Disease: < 60; Kidney failure: < 15 Performed By: #### B MP ####[address] [address] eGFR For Non- Americans > 60 Normal > 60 [facility] Comment on above: Performed By: #### B MP ####[address] [address] Glucose [Mass/Vol] 89 mg/dL Normal 70-105 [facility] Comment on above: Performed By: #### B MP ####[address] [address] Osmolality,Calculated 285 Normal 280-300 [facility] Comment on above: Performed By: #### B MP ####[facility] [address] [place] [address] Potassium [Moles/Vol] 4.0 mmol/L Normal 3.5-5.1 [facility] Comment on above: Performed By: #### B MP ####[address] [address] Sodium [Moles/Vol] 135 mmol/L Low 136-145 [facility] Comment on above: Performed By: #### B MP ####[address] [address] Urea nitrogen [Mass/Vol] 28 mg/dL High 8-23 [facility] Comment on above: Performed By: #### B MP ####[address] [address] Urea nitrogen/Creatinine [Mass ratio] 45 mg/mg High 6- [facility] Comment on above: Performed By: #### B MP ####[address] [address] C-Reactive Proteinon 021 CRP [Mass/Vol] mg/L Normal Less than 10 [facility] Comment on above: Performed By: #### C RP, SILVINO ####[address] [address] Complete Blood Count w/o Dif brandon 04-14-2020 Erythrocyte distribution width (RBC) [Ratio] 17.3 % High 11.5-14.5 [facility] Comment on above: Performed By: #### C BCND ####[address] [address] Hematocrit (Bld) [Volume fraction] 31.6 % Low 37.5-50.1 [facility] Comment on above: Performed By: #### C BCND ####[address] [address] Hemoglobin (Bld) [Mass/Vol] 10.2 g/dL Low 12.9-16.9 [facility] Comment on above: Performed By: #### C BCND ####[address] [address] MCH (RBC) [Entitic mass] 31.4 pg Normal 28.0-33.3 [facility] Comment on above: Performed By: #### C BCND ####[address] [address] MCH (RBC) [Entitic mass] 32.3 g/dL Normal 31.6-35.5 [facility] Comment on above: Performed By: #### C BCND ####[address] [address] MCV (RBC) [Entitic vol] 97.2 fL Normal 83.0-100.0 [facility] Comment on above: Performed By: #### C BCND ####[address] [address] Platelet mean volume (Bld) [Entitic vol] 11.4 fL Normal 9.4-12.4 [facility] Comment on above: Performed By: #### C BCND ####[address] [address] Platelets (Bld) [#/Vol] 121 K/mcL Low 140-400 [facility] Comment on above: Performed By: #### C BCND ####[address] [address] RBC (Bld) [#/Vol] 3.25 M/mcL Low 4.19-5.50 [facility] Comment on above: Performed By: #### C BCND ####[facility] [address] [place], [place] [address] WBC (Bld) [#/Vol] 10.4 K/mcL Normal 4.3-11.1 [facility] Comment on above: Performed By: #### C BCND ####[facility] [address] [place] [address] D-Dimeron 04-14-2020 D-Dimer 3324 ng/mLFEU High 0-500 [facility] Comment on above: Result Comment: A po sitive D-Dimer result does not predict a specific disease. Result should be interpreted in conjunction with the patient's medical history, clinical presentation, and other findings. Performed By: #### P OCGLUCOMETER #### [facility] [address] [place] [address] Ferritinon 04-14-2020 Ferritin [Mass/Vol] 101 ng/mL Normal 20-250 [facility] Comment on above: Performed By: #### C RP, SILVINO ####[facility] [address] [place] [address] OT Swing/Rehab Daily Noteon 04-14-2020 OT Swing/Rehab Daily Note Occupational Therapy OT Rehab/Swing Daily Note Start: 04/13/20 11:04 Freq: Status: Active Protocol: Document 04/14/20 13:18 [facility] (Rec: 04/14/20 13:23 [facility] [id number]) General/Subjective General Referring Provider Jim Marshall OT [...] O2 with oximask, recent loss of spouse, SHOALWATER, wound on sacrum Objective Vital Signs Vitals [...] Draft Until Electronically Signed by Supervising Therapist [facility] OT Swing/Rehab Daily Note Occupational Therapy OT Rehab/Swing Daily Note Start: 04/13/20 11:04 Freq: Status: Active Protocol: Document 04/14/20 11:56 TGS (Rec: 04/14/20 12:08 TGS [id number]) General/Subjective General Referring Provider Jim Marshall OT Visit # am Diagnosis deconditio OT Treatment Diagnosis Muscle weakness (generalized) Additional OT Treatment Diagnosis/ Dx: Physical deconditioning s/ Clarification p hospitilization for COVID-19 pneumonia, bacterial pneumonia, acute respiratory failure with hypoxia Subjective Subjective Pt is agreeable to therapy. Restrictions Weight Bearing Restrictions/Precauti ons fall risk, bed/chair alarms, supplemental O2 with oximask, recent loss of spouse, SHOALWATER, wound on sacrum Objective Vital Signs Vitals [...] Until Electronically Signed by Supervising Therapist Normal [facility] POC Glucometer Teston 2020 Glucose [Mass/Vol] 139 mg/dL High 70-99 [facility] Comment on above: Performed By: #### P OCGLUCOMETER ####[facility] [address] [place] [address] Glucose [Mass/Vol] 90 mg/dL Normal 70-99 [facility] Comment on above: Performed By: #### P OCGLUCOMETER #### [facility] [address] [place] [address] [phone] Glucose [Mass/Vol] 215 mg/dL High 70-99 [facility] Comment on above: Performed By: #### P OCGLUCOMETER #### [facility] [address] [address] PT Rehab/Swing Daily Noteon 04-14-2020 PT Rehab/Swing Daily Note Physical Therapy PT Rehab/Swing Daily Note. Start: 04/13/20 08:19 Freq: Status: Active Protocol: Document 04/14/20 14:34 MW (Rec: 04/14/20 14:44 MW [id number]) General/Subjective General Date of Admission 04/12/20 Referring [...] O2 with oximask, recent loss of spouse, SHOALWATER, wound on sacrum Objective Vital Signs Vitals [...] ambulates short distance at parallel bars at [facility] but very fearful and anxious. Distance limited [...] Draft Until Electronically Signed by Supervising Therapist [facility] PT Rehab/Swing Daily Note Physical Therapy PT Rehab/Swing Daily Note. Start: 04/13/20 08:19 Freq: Status: Active Protocol: Document 04/14/20 11:00 MW (Rec: 04/14/20 11:19 MW [id number]) General/Subjective General Date of Admission 04/12/20 Referring [...] O2 with oximask, recent loss of spouse, SHOALWATER, wound on sacrum Objective Vital Signs Vitals [...] to anxiety. He completes bed mobility at [facility] but requires [facility] to modA for sit [...] Until Electronically Signed by Supervising Therapist Normal [facility] Internal Med History&Physica marquise 04-13-2020 Internal Med History&Physical [facility] [address] [place] [address] Internal Med History Physical Signed PRELIMINARY DRAFT REPORT UNTIL ELECTRONICALLY SIGNED PATIENT: Mick Cottrell MR#: [id number] : 1940 AGE/SEX: 79 / M ADMITTED: 04/12/20 1837 OUTSIDE LOCN: LOCATION: [address] ATTENDING: Jim Marshall MD cc: ; [...] HTN, DM2, BPH who was admitted at [facility] on 03/05 with cough, SOB, and malaise [...] and oxygenation. He was transferred to our [facility] during that hospitalization as lateral transfer to continue his further acute medical care and eventually transitioning him to swing bed for his physical deconditioning. When he was in rehab facility one day he became more hypoxic with worsening respiratory failure. He got readmitted at [facility] on 03/28/2020 with acute hypoxic resp failure due to multi focal pneumonia. He happened to have hemoptysis too. He was evaluated by Evaluation Manager who held his anti coag Eliquis and continued IV Decadran and empirical abx Levaquin. His hemoptysis resolved and his oxygen requirement came down to 4-6 lit now. 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: without senior care use Diabetes mellitus complication status: without complication [...] By: Jim Marshall MD Signed By: 04/13/20 4976 DD/ 1331 Initialized By: [id number] [facility] OT Noteon 04-13-2020 OT Note Weekly Rehab Team Goal Weekly Rehab Team Goals Start: 04/12/20 18:53 Freq: QWEEK Status: Active Protocol: Activity Type Activity Date Activity User E-Sign Co-Sign Detail Recorded Client Recorded Date Recorded By Document 04/13/20 15:40 TGS [id number] 04/13/20 15:45 TGS 04/13/20 15:40 Mobility (PT/OT/TR) Bed Mobility Current Status Mod-I Bed Mobility Weekly Goal Improve Date 04/13/20 Supine to Sit Current Status Mod-I Supine to Sit Weekly Goal Improve Date 04/13/20 Sit to Stand Current Status [facility] Sit to Stand Weekly Goal SBA 04/13/20 Ambulate or W/C Current Status [facility]/Min [...] Weekly Goal SBA with UE balance support 04/13/20 ROM UE Current Status wfl ROM [...] Weekly Goal Fair+ Date 04/13/20 Self Care (OT/NSG/MEDICAL VOUCHER CLERK/PT) UE Dressing Current Status setup/sba UE Dressing Weekly Goal Mod I Date 04/13/20 LE Dressing Current Status [facility] for balance LE Dressing Weekly Goal Mod I Date 04/13/20 Grooming Current Status s/u assist Grooming Weekly Goal Mod I Date 04/13/20 Feeding Current Status Independent Feeding Weekly Goal same 04/13/20 Housekeeping Meal Preparation Current Not yet tested Status Housekeeping Meal Preparation Weekly Mod I Goal Date 04/13/20 Bath Transfer Current Satus NT Bath Transfer Weekly Goal Mod I Date 04/13/20 Bathing Task Current Status sponge bathing UB setup/sba, C[facility] in standing to complete LB Bathing Task Weekly Goal improve 04/13/20 Toilet Transfer Current Status CGA Toilet [...] entered by Radha Botello OTR/Jaye, TAYLOR Smith [facility] OT Progress Noteon 1 OT Progress [...] Freq: Status: Active Protocol: Document 04/13/20 11:04 [facility] (Rec: 04/13/20 11:13 [facility] [id number]) Occupational Therapy Reassessment General OT Visit # [...] O2 with oximask, recent loss of spouse, SHOALWATER, wound on sacrum Current Status/Progress Review Standardized [...] Until Electronically Signed by Supervising Therapist Sarah [facility] OT Swing/Rehab Daily Noteon 04-13-2020 OT Swing/Rehab Daily Note Occupational Therapy OT Rehab/Swing Daily Note Start: 04/13/20 11:04 Freq: Status: Active Protocol: Document 04/13/20 14:31 TGS (Rec: 04/13/20 14:38 TGS [id number]) General/Subjective General Referring Provider Jim Marshall OT [...] O2 with oximask, recent loss of spouse, SHOALWATER, wound on sacrum Objective Vital Signs Vitals [...] Until Electronically Signed by Supervising Therapist Sarah [facility] OT Swing/Rehab Daily Note Occupational Therapy OT Rehab/Swing Daily Note Start: 04/13/20 11:04 Freq: Status: Active Protocol: Document 04/13/20 11:14 [facility] (Rec: 04/13/20 11:19 [facility] [id number]) General/Subjective General Referring Provider Jim Marshall OT [...] O2 with oximask, recent loss of spouse, SHOALWATER, wound on sacrum Objective Vital Signs Vitals [...] Until Electronically Signed by Supervising Therapist Normal [facility] POC Glucometer Teston 2020 Glucose [Mass/Vol] 234 mg/dL High 70-99 [facility] Comment on above: Performed By: #### P OCGLUCOMETER ####[facility] [address] [place] [address] 37647 Glucose [Mass/Vol] 129 mg/dL High 70-99 [facility] Comment on above: Performed By: #### P OCGLUCOMETER ####[facility] [address] [place] [address] 62948 Glucose [Mass/Vol] 200 mg/dL High 70-99 [facility] Comment on above: Result Comment: Glu2 : RN Notified Performed By: #### P OCGLUCOMETER #### [facility] Laboratory [address] [place] [address] 04185 Glucose [Mass/Vol] 110 mg/dL High 70-99 [facility] Comment on above: Result Comment: Glu2 : RN Notified Performed By: #### P OCGLUCOMETER #### [facility] [address] [place] [address] 20889 Glucose [Mass/Vol] 290 mg/dL High 70-99 [facility] Comment on above: Performed By: #### P OCGLUCOMETER #### [facility] [address] [place] [address] 99345 PT Progress Noteon 1 PT Progress Note [...] bed mobility (supine to sitting EOB) at [facility] to promote independence within home. 2. Patient will perform sit to stand transfers from varying surfaces with FWW at [facility]. 3. Patient will ambulate 100ft with FWW at A to [facility] and while demonstrating walker safety without [...] scoring 33% impairment or better on the [facility] '6-Clicks' Basic Mobility (V2) Inpatient Short Form Score. Other Treatment Frequency daily, 6x per week Duration of Treatment 3 weeks Physical Therapy PT Progress/Reassessment Start: 04/13/20 08:19 Freq: Status: Active Protocol: Document 04/13/20 08:20 MW (Rec: 04/13/20 08:37 MW [id number]) Physical Therapy Reassessment General PT Visit # [...] of supplemental O2, recent loss of spouse, SHOALWATER, wound on sacrum, fearful of movement and anxious Current Status/Progress Review Assessment Refer to initial evaluation on 04/11/2020. No change in status since evaluation but progress note warranted secondary to patient being moved from acute bed to swing bed. Standardized Testing/Functional Outcomes [facility] '6- Utilized/Results Clicks' Basic Mobility (V2) Inpatient Short Form: -PAC Raw Score=17; CMS Score=43.83% impairment Goals/Goal Progress Physical Therapy STG's Within 3 weeks: 1. Patient will complete bed mobility (supine to sitting EOB) at [facility] to promote independence within home. 2. Patient will perform sit to stand transfers from varying surfaces with FWW at [facility]. 3. Patient will ambulate 100ft with FWW [...] scoring 33% impairment or better on the [facility] ' 6-Clicks' Basic Mobility (V2) Inpatient Short [...] Until Electronically Signed by Supervising Therapist Sarah [facility] PT Rehab/Swing Daily Noteon 04-13-2020 PT Rehab/Swing Daily Note Physical Therapy PT Rehab/Swing Daily Note. Start: 04/13/20 08:19 Freq: Status: Active Protocol: Document 04/13/20 15:16 MJS (Rec: 04/13/20 15:22 MJS [id number]) General/Subjective General Date of Admission 04/12/20 Referring [...] is tired but willing to work with [employer]. Precautions Restrictions/Precauti ons fall risk, bed/chair alarms, supplemental O2 with oximask, recent loss of spouse, SHOALWATER, wound on sacrum Objective Mobility Transfers sit-stand [...] Draft Until Electronically Signed by Supervising Therapist [facility] PT Rehab/Swing Daily Note Physical Therapy PT Rehab/Swing Daily Note. Start: 04/13/20 08:19 Freq: Status: Active Protocol: Document 04/13/20 10:13 [facility] (Rec: 04/13/20 10:16 [facility] [id number]) General/Subjective General Date of Admission 04/12/20 Referring [...] has significantly improved since first admitted to [facility] inpatient unit, but still feels generalized weakness is is most limiting factor. Precautions Restrictions/Precauti ons fall risk, bed/chair alarms, on 3-5L of supplemental O2, recent loss of spouse, SHOALWATER, wound on sacrum, fearful of movement and [...] Until Electronically Signed by Supervising Therapist Normal [facility] Psychological Evaluationon 0 04-13-2020 Psychological Evaluation [facility] [address] [place] [address] Psychological Evaluation Signed PRELIMINARY DRAFT REPORT UNTIL ELECTRONICALLY SIGNED PATIENT: Mick Cottrell MR#: [id number] : 1940 AGE/SEX: 79 / M ADMITTED: 04/12/20 1837 OUTSIDE LOCN: LOCATION: [address] ATTENDING: Jim Marshall MD cc: ; Date of Encounter: 04/13/20 Time of Encounter: 09:00 (bedside) History of Present Illness History of present illness: Mr. Cottrell is a 79 year old male with known past medical history of HFpEF, COPD, CVA, A-Fib, HTN, DM2, BPH who was admitted at [facility] on 03/05 with cough, SOB, and malaise [...] and oxygenation. He was transferred to our [facility] during that hospitalization as lateral transfer to continue his further acute medical care and eventually transitioning him to swing bed for his physical deconditioning. When he was in rehab facility one day he became more hypoxic with worsening respiratory failure. He got readmitted at [facility] on 03/28/2020 with acute hypoxic resp failure due to multi focal pneumonia. He happened to have hemoptysis too. He was evaluated by Evaluation Manager who held his anti coag Eliquis and continued IV Decadran and empirical abx Levaquin. His hemoptysis resolved and his oxygen requirement came down to 4-6 lit now. Due to bed crunch for Covid positive patients at [facility] he was sent to our facility [facility] as lateral trasnfer to continue further [...] [Rx] Ipratropium [ATROVENT Inhaler] 2 puff IH [id number] inhaler 04/09/20 [Rx] Metoprolol [Lopressor] 50 mg [...] By: 04/13/20 1430 DD/ 1422 Initialized By: [id number] Normal [facility] Basic Metabolic Panelon 03-25 Calcium [Mass/Vol] 8.6 mg/dL Normal 8.6-10.3 [facility] Comment on above: Performed By: #### P OCGLUCOMETER #### [facility] [address] [place] [address] 02249 Chloride [Moles/Vol] 100 mmol/L Normal 98-107 [facility] Comment on above: Performed By: #### P OCGLUCOMETER #### [facility] [address] [place] [address] 09599 CO2 [Moles/Vol] 29 mmol/L Normal 23-29 [facility] Comment on above: Performed By: #### P OCGLUCOMETER #### [facility] [address] [place] [address] 89798 Creatinine [Mass/Vol] 0.81 mg/dL Normal 0.70-1.30 [facility] Comment on above: Performed By: #### P OCGLUCOMETER #### [facility] [address] [place] [address] 70213 eGFR For Americans > 60 Normal > 60 [facility] Comment on above: Result Comment: eGFR = Estimated Glomerular Filtration Rate reported as mL/min/1.73 square meters Chronic Kidney Disease: < 60; Kidney failure: < 15 Performed By: #### P OCGLUCOMETER #### [facility] [address] [place] [address] 13979 eGFR For Non- Americans > 60 Normal > 60 [facility] Comment on above: Performed By: #### P OCGLUCOMETER #### [facility] [address] [place] [address] 35998 Osmolality,Calculated 292 Normal 280-300 [facility] Comment on above: Performed By: #### P OCGLUCOMETER #### [facility] [address] [place] [address] 71937 Potassium [Moles/Vol] 4.8 mmol/L Normal 3.5-5.1 [facility] Comment on above: Performed By: #### P OCGLUCOMETER #### [facility] [address] [place] [address] 47069 Sodium [Moles/Vol] 136 mmol/L Normal 136-145 [facility] Comment on above: Performed By: #### P OCGLUCOMETER #### [facility] [address] [place] [address] 53172 Urea nitrogen [Mass/Vol] 32 mg/dL High 8-23 [facility] Comment on above: Performed By: #### P OCGLUCOMETER #### [facility] [address] [place] [address] 38985 Urea nitrogen/Creatinine [Mass ratio] 40 mg/mg High 6-26 [facility] Comment on above: Performed By: #### P OCGLUCOMETER #### [facility] [address] [place] [address] 75489 Glucose [Mass/Vol] 152 mg/dL High 70-99 [facility] Comment on above: Performed By: #### P OCGLUCOMETER #### [facility] [address] [place] [address] 81886 Performed By: #### P OCGLUCOMETER ####[facility] [address] [place] [address] 74422 Complete Blood Count w/o Dif brandon 04-12-2020 Erythrocyte distribution width (RBC) [Ratio] 16.7 % High 11.5-14.5 [facility] Comment on above: Performed By: #### P OCGLUCOMETER #### [facility] [address] [place] [address] 84671 Hematocrit (Bld) [Volume fraction] 31.7 % Low 37.5-50.1 [facility] Comment on above: Performed By: #### P OCGLUCOMETER #### [facility] [address] [place] [address] 37726 Hemoglobin (Bld) [Mass/Vol] 10.3 g/dL Low 12.9-16.9 [facility] Comment on above: Performed By: #### P OCGLUCOMETER #### [facility] [address] [place] [address] 60210 MCH (RBC) [Entitic mass] 32.5 g/dL Normal 31.6-35.5 [facility] Comment on above: Performed By: #### P OCGLUCOMETER #### [facility] [address] [place] [address] 22685 MCH (RBC) [Entitic mass] 31.5 pg Normal 28.0-33.3 [facility] Comment on above: Performed By: #### P OCGLUCOMETER #### [facility] [address] [place] [address] 09095 MCV (RBC) [Entitic vol] 96.9 fL Normal 83.0-100.0 [facility] Comment on above: Performed By: #### P OCGLUCOMETER #### [facility] [address] [place] [address] 68462 Platelet mean volume (Bld) [Entitic vol] 11.7 fL Normal 9.4-12.4 [facility] Comment on above: Performed By: #### P OCGLUCOMETER #### [facility] [address] [place] [address] 43832 Platelets (Bld) [#/Vol] 125 K/mcL Low 140-400 [facility] Comment on above: Performed By: #### P OCGLUCOMETER #### [facility] [address] [place] [address] 81127 RBC (Bld) [#/Vol] 3.27 M/mcL Low 4.19-5.50 [facility] Comment on above: Performed By: #### P OCGLUCOMETER #### [facility] [address] [place] [address] 83255 WBC (Bld) [#/Vol] 12.7 K/mcL High 4.3-11.1 [facility] Comment on above: Performed By: #### P OCGLUCOMETER #### [facility] [address] [place] [address] 13096 Internal Med Progress Noteon 04-12-2020 Internal Med Progress Note [facility] [address] [place] [address] Internal Med Progress Note Signed PRELIMINARY DRAFT REPORT UNTIL ELECTRONICALLY SIGNED PATIENT: Mick Cottrell MR#: [id number] : 1940 AGE/SEX: 79 / M ADMITTED: 04/10/20 1654 OUTSIDE LOCN: LOCATION: [address] ATTENDING: Jim Marshall MD cc: ; [...] Diabetes mellitus type: type 2 Diabetes mellitus rat exterminator insulin use: without rat exterminator use Diabetes mellitus complication status: without complication [...] HTN, DM2, BPH who was admitted at [facility] on 03/05 with cough, SOB, and malaise [...] and oxygenation. He was transferred to our [facility] during that hospitalization as lateral transfer to continue his further acute medical care and eventually transitioning him to swing bed for his physical deconditioning. When he was in rehab facility one day he became more hypoxic with worsening respiratory failure. He got readmitted at [facility] on 03/28/2020 with acute hypoxic resp failure due to multi focal pneumonia. He happened to have hemoptysis too. He was evaluated by Evaluation Manager who held his anti coag Eliquis and continued IV Decadran and empirical abx Levaquin. His hemoptysis resolved and his oxygen requirement came down to 4-6 lit now. Due to bed crunch for Covid positive patients at [facility] he was sent to our facility [facility] as lateral transfer to continue further medical care and possible rehab when he becomes more medically stable. Patient appears relaxed, appears relaxed and denies any discomforts or dyspnea. He states he continues to have poor endurance and has been reported as becoming short of breath during transfers to the [facility]. His Ox sat has been >92% on [...] Care Provider] - Documented By: Jenaro Morales [employer] Signed By: 04/12/20 1605 DD/ 1536 Initialized By: [id number] Normal [facility] OT Swing/Rehab Daily Noteon 04-12-2020 OT Swing/Rehab Daily Note Occupational Therapy OT Rehab/Swing Daily Note Start: 04/11/20 12:56 Freq: Status: Active Protocol: Document 04/12/20 15:23 ECR (Rec: 04/12/20 15:36 ECR [id number]) General/Subjective General Referring Provider Jim Marshall OT Visit # AM Diagnosis decondtiti OT [...] O2 per oximask, recent loss of spouse, SHOALWATER, wound on sacrum Objective Vital Signs Vitals [...] Until Electronically Signed by Supervising Therapist Sarah [facility] OT Swing/Rehab Daily Note Occupational Therapy OT Rehab/Swing Daily Note Start: 04/11/20 12:56 Freq: Status: Active Protocol: Document 04/12/20 14:46 TGS (Rec: 04/12/20 14:56 TGS [id number]) General/Subjective General Referring Provider Jim Marshall OT [...] O2 per oximask, recent loss of spouse, SHOALWATER, wound on sacrum Objective Vital Signs Vitals [...] Until Electronically Signed by Supervising Therapist Normal [facility] POC Glucometer Teston 2020 Glucose [Mass/Vol] 210 mg/dL High 70-99 [facility] Comment on above: Result Comment: Glu2 : RN Notified Performed By: #### P OCGLUCOMETER ####[facility] [address] [place] [address] 82656 Glucose [Mass/Vol] 124 mg/dL High 70-99 [facility] Comment on above: Performed By: #### P OCGLUCOMETER ####[facility] [address] [place] [address] 52104 Glucose [Mass/Vol] 179 mg/dL High 70-99 [facility] Comment on above: Performed By: #### P OCGLUCOMETER ####[facility] [address] [place] [address] 78747 PT Rehab/Swing Daily Noteon 04-12-2020 PT Rehab/Swing Daily Note Physical Therapy PT Rehab/Swing Daily Note. Start: 04/11/20 09:18 Freq: Status: Active Protocol: Document 04/12/20 15:37 HMT (Rec: 04/12/20 15:45 HMT [id number]) General/Subjective General Date of Admission 04/10/20 Referring [...] O2 per oximask, recent loss of spouse, SHOALWATER, wound on sacrum Objective Mobility Bed Mobility [...] Draft Until Electronically Signed by Supervising Therapist [facility] PT Rehab/Swing Daily Note Physical Therapy PT Rehab/Swing Daily Note. Start: 04/11/20 09:18 Freq: Status: Active Protocol: Document 04/12/20 11:27 MW (Rec: 04/12/20 11:40 MW [id number]) General/Subjective General Date of Admission 04/10/20 Referring [...] O2 per oximask, recent loss of spouse, SHOALWATER, wound on sacrum Objective Vital Signs Vitals [...] Until Electronically Signed by Supervising Therapist Normal [facility] Basic Metabolic Panelon 03-25 Calcium [Mass/Vol] 8.6 mg/dL Normal 8.6-10.3 [facility] Comment on above: Performed By: #### B MP, MG ####[address] [address] Chloride [Moles/Vol] 101 mmol/L Normal 98-107 [facility] Comment on above: Performed By: #### Elba DAVIS, MG ####[address] [address] CO2 [Moles/Vol] 34 mmol/L High 23-29 [facility] Comment on above: Performed By: #### B RYAN, MG ####[address] [address] Creatinine [Mass/Vol] 0.69 mg/dL Low 0.70-1.30 [facility] Comment on above: Performed By: #### B MP, MG ####[address] [address] eGFR For Americans > 60 Normal > 60 [facility] Comment on above: Result Comment: eGFR = Estimated Glomerular Filtration Rate reported as mL/min/1.73 square meters Chronic Kidney Disease: < 60; Kidney failure: < 15 Performed By: #### B MP, MG ####[address] [address] eGFR For Non- Americans > 60 Normal > 60 [facility] Comment on above: Performed By: #### B MP, MG ####[facility] [address] [place] [address] Glucose [Mass/Vol] 71 mg/dL Normal 70-105 [facility] Comment on above: Performed By: #### B MP, MG ####[facility] [address] [place] [address] 02624 Osmolality,Calculated 294 Normal 280-300 [facility] Comment on above: Performed By: #### B MP, MG ####[facility] [address] [place] [address] 13115 Potassium [Moles/Vol] 4.3 mmol/L Normal 3.5-5.1 [facility] Comment on above: Performed By: #### B MP, MG ####[facility] [address] [place] [address] 31579 Sodium [Moles/Vol] 139 mmol/L Normal 136-145 [facility] Comment on above: Performed By: #### B MP, MG ####[facility] [address] [place] [address] 59701 Urea nitrogen [Mass/Vol] 35 mg/dL High 8-23 [facility] Comment on above: Performed By: #### B MP, MG ####[facility] [address] [place] [address] 74602 Urea nitrogen/Creatinine [Mass ratio] 51 mg/mg High 6-26 [facility] Comment on above: Performed By: #### B MP, MG ####[address] [address] C-Reactive Proteinon 021 CRP [Mass/Vol] mg/L Normal Less than 10 [facility] Comment on above: Performed By: #### P OCGLUCOMETER #### [facility] [address] [place] [address] [id number] 04-11-[address] [address] XRay Report Signed PRELIMINARY DRAFT REPORT UNTIL ELECTRONICALLY SIGNED PATIENT: Mick Cottrell MR#: [id number] : 1940 AGE/SEX: 79 / M ADMITTED: 04/10/20 1654 OUTSIDE LOCN: LOCATION: [address] ATTENDING: Jim Marshall MD ORDER PHYSICIAN: Jim Marshall BIRAD: DATE OF SERVICE: 04/11/20 FOLLOW UP: ACCESSION NUMBERS(S): [id number] PROCEDURE(S): XR chest 1V REASON FOR EXAM: [...] / trisha Interpreting Provider: Edi Steel Normal [facility] Complete Blood Count w/o Dif brandon 04-11-2020 Erythrocyte distribution width (RBC) [Ratio] 16.4 % High 11.5-14.5 [facility] Comment on above: Performed By: #### C BCND ####[facility] [address] [place], [place] [phone] Hematocrit (Bld) [Volume fraction] 31.2 % Low 37.5-50.1 [facility] Comment on above: Performed By: #### C BCND ####[address] [address] Hemoglobin (Bld) [Mass/Vol] 10.3 g/dL Low 12.9-16.9 [facility] Comment on above: Performed By: #### C BCND ####[address] [address]783 MCH (RBC) [Entitic mass] 33.0 g/dL Normal 31.6-35.5 [facility] Comment on above: Performed By: #### C BCND ####[address] [address]37 MCH (RBC) [Entitic mass] 32.0 pg Normal 28.0-33.3 [facility] Comment on above: Performed By: #### C BCND ####[address] [address]321 MCV (RBC) [Entitic vol] 96.9 fL Normal 83.0-100.0 [facility] Comment on above: Performed By: #### C BCND ####[address] [address]32 Platelet mean volume (Bld) [Entitic vol] 11.9 fL Normal 9.4-12.4 [facility] Comment on above: Performed By: #### C BCND ####[address] [address] Platelets (Bld) [#/Vol] 132 K/mcL Low 140-400 [facility] Comment on above: Performed By: #### C BCND ####[address] [address] RBC (Bld) [#/Vol] 3.22 M/mcL Low 4.19-5.50 [facility] Comment on above: Performed By: #### C BCND ####[facility] [address] [place] [address] WBC (Bld) [#/Vol] 13.1 K/mcL High 4.3-11.1 [facility] Comment on above: Performed By: #### C BCND ####[facility] [address] [place] [phone] D-Dimeron 04-11-2020 D-Dimer 6647 ng/mLFEU High 0-500 [facility] Comment on above: Result Comment: A po sitive D-Dimer result does not predict a specific disease. Result should be interpreted in conjunction with the patient's medical history, clinical presentation, and other findings. Performed By: #### D D ####[facility] [address] [place], [place] [phone] Ferritinon 04-11-2020 Ferritin [Mass/Vol] 206 ng/mL Normal 20-250 [facility] Comment on above: Performed By: #### P OCGLUCOMETER #### [facility] [address] [place] [address] 45601 Internal Med History&Physica marquise 04-11-2020 Internal Med History&Physical [address] [address] Internal Med History Physical Signed PRELIMINARY DRAFT REPORT UNTIL ELECTRONICALLY SIGNED PATIENT: Mick Cottrell MR#: [id number] : 1940 AGE/SEX: 79 / M ADMITTED: 04/10/20 1654 OUTSIDE LOCN: [address] ATTENDING: Jim Marshall MD cc: ; Date [...] HTN, DM2, BPH who was admitted at [facility] on 03/05 with cough, SOB, and malaise [...] and oxygenation. He was transferred to our [facility] during that hospital ization as lateral transfer to continue his further acute medical care and eventually transitioning him to swing bed for his physical deconditioning. When he was in rehab facility one day he became mo re hypoxic with worsening respiratory failure. He got readmitted at [facility] on 03/28/2020 with acute hyp oxic resp failure due to multi focal pneumonia. He happened to have hemoptysis too. He was evaluated by Evaluation Manager who held his anti coag Eliquis and continued IV Decadran and empirical abx Levaqui n. His hemoptysis resolved and his oxygen requirement came down to 4-6 lit now. Due to bed crunch fo r Covid positive patients at [facility] he was sent to our facility [facility] as lateral trasnfer to continue f [...] [Rx] Ipratropium [ATROVENT Inhaler] 2 puff IH [id number] inhaler 04/09/20 [Rx] Metoprolol [Lopressor] 50 mg [...] plan: He did have acute hemoptysis at [facility] due to multi focal PNA Apparently pt [...] By: 04/11/20 1217 DD/ 1133 Initialized By: [id number] Normal [facility] Magnesiumon 04-11-2020 Magnesium [Mass/Vol] 1.9 mg/dL Normal 1.6-2.6 [facility] Comment on above: Performed By: #### B MP, MG ####[facility] [address] [place] [address] [phone] POC Glucometer Teston 2020 Glucose [Mass/Vol] 82 mg/dL Normal 70-99 [facility] Comment on above: Performed By: #### P OCGLUCOMETER ####[facility] [address] [place] [address] Glucose [Mass/Vol] 205 mg/dL High 70-99 [facility] Comment on above: Result Comment: Glu2 : RN Notified Performed By: #### P OCGLUCOMETER #### [facility] Laboratory [address] [place] [address] [place] [address] Glucose [Mass/Vol] 69 mg/dL Low 70-99 [facility] Comment on above: Result Comment: Glu2 : RN Notified Performed By: #### P OCGLUCOMETER #### [facility] [address] [place] [address] [phone] Glucose [Mass/Vol] 233 mg/dL High 70-99 [facility] Comment on above: Performed By: #### P OCGLUCOMETER #### [facility] Laboratory [address] [place] [address] PT Rehab/Swing Daily Noteon 04-11-2020 PT Rehab/Swing Daily Note Physical Therapy PT Rehab/Swing Daily Note. Start: 04/11/20 09:18 Freq: Status: Active Protocol: Document 04/11/20 15:26 MW (Rec: 04/11/20 15:33 MW [id number]) General/Subjective General Date of Admission 04/10/20 Referring [...] time of eval, recent loss of spouse, SHOALWATER, wound on sacrum Objective Vital Signs Vitals [...] Until Electronically Signed by Supervising Therapist Normal [facility] Electrocardiograph Reporton 04-10-2020 [place] [address] Electrocardiograph Report Signed PRELIMINARY DRAFT REPORT UNTIL ELECTRONICALLY SIGNED PATIENT: Mick Cottrell MR#: [id number] : 1940 AGE/SEX: 79 / M ADMITTED: 04/10/20 1654 OUTSIDE LOCN: LOCATION: [address] ATTENDING: Jim Marshall MD READING PHYSICIAN: Rogelio Chapa TECHNOLOGIST: MONICO PHYSICIAN: Madai Enrique PRIMARY PHYSICIAN: Jim Marshall DATE OF SERVICE: 04/10/20 ACCESSION NUMBERS(S): [id number] HT: 182.88 WT: 177 PROCEDURE(S): ECG 12 lead ECG cc: ; [place] [address] Test Date: 2020-04-10 Pat Name: Mick Cottrell Department: 2001 Room: [facility] Gender: M 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1940 Requested By: Madai Enrique Order Number: [id number] Reading MD: Rogelio Chapa Measurements Intervals [place] Rate: 108 P: WV: 0 QRS: 79 QRSD: 89 T: 79 QT: 337 QTc: 401 Interpretive Statements ATRIAL FIBRILLATION WITH RAPID VENTRICULAR RESPONSE NONSPECIFIC ST T-WAVE ABNORMALITY ABNORMAL RHYTHM ECG Electronically Signed On 04-15-2020 9:24:39 EST by Rogelio Smith [facility] PT Discharge Noteon 03-29-19 21 PT Discharge Note PT Rehab/Swing Discharge Start: 03/22/20 15:55 Freq: Status: Discharge Protocol: Document 03/29/20 12:03 MW (Rec: 03/29/20 12:10 MW [id number]) Physical Therapy Discharge General Discharge Date 03/28/20 Referring Provider Jim Marshall Diagnosis covid19 PT Treatment Diagnosis Muscle weakness (generalized) Additional PT Treatment Diagnosis/ other reduced mobility, Clarification difficulty in walking Reason for Discharge Transfer (other facility/level of care) Restrictions/Precauti ons covid isolation lifted , fall precautions, SHOALWATER, use O2 @ eval, recent loss of spouse Goal Review Physical Therapy STG's 1. Pt will perform mobilities and transfers LANCE with device to return home safely. (Not met: completes mobility and transfers at [facility] to [facility]) 2. Pt will ambulate 100 feet with [...] all goals. Patient has been transferred from [facility] to [facility] for more appropriate care due to change in medical status. D/C Status, HEP Recommendations/Other Physical Therapy Recommendations PT recommending 24 hour assistance to safely complete functional mobility (transfers , ambulation, bed mobility). Discharge Location/Services Patient has been transferred from [facility] to [facility] secondary to change in medical status. Summary Summation Outcome Measures/Standardized Assessment [facility] AM-PAC 6- Used Clicks Basic Mobility V2 Inpatient Short Form: AM-PAC Raw Score=18; CMS Score=40.47% Impairment Discharge Assessment Patient has been transferred from [facility] to [facility] secondary to change in medical status. Patient has not met all goals and will need 24 hour assistance to ensure safety when completing functional mobility. Charge Sheet G-Code Documentation Complete PT Charges/Documentation Finished? Yes Last Visit Is patient being discharged from PT Yes today? Preliminary Draft Until Electronically Signed by Supervising Therapist Normal [facility] Arterial Blood Gason 021 ABG Base Excess -3 mEq/L Low -2 to 3 [facility] Comment on above: Performed By: #### A BG ####[facility] [address] [place] [address] 52296 ABG HCO3 20 mEq/L Low 21-27 [facility] Comment on above: Performed By: #### A BG ####[facility] [address] [place] [address] 99874 ABG Oxygen Saturation 94 % Low 95-98 [facility] Comment on above: Performed By: #### A BG ####[facility] [address] [place] [address] 03351 ABG PCO2 30 mmHg Low 35-45 [facility] Comment on above: Performed By: #### A BG ####[facility] [address] [place] [address] 77136 ABG PH 7.43 pH Units Normal 7.32-7.45 [facility] Comment on above: Performed By: #### A BG ####[facility] [address] [place] [address] 57060 ABG PO2 67 mmHg Low 85-104 [facility] Comment on above: Performed By: #### A BG ####[facility] [address] [place], [place] [phone] ABG TCO2 21 mEq/L Normal 20-26 [facility] Comment on above: Performed By: #### A BG ####[facility] [address] [place], [place] [id number] 03-28-[address] [address] XRay Report Signed PRELIMINARY DRAFT REPORT UNTIL ELECTRONICALLY SIGNED PATIENT: Mick Cottrell MR#: [id number] : 1940 AGE/SEX: 79 / M ADMITTED: 03/22/20 1528 OUTSIDE LOCN: LOCATION: [address] ATTENDING: Jim Marshall MD ORDER PHYSICIAN: Jenaro Morales BIRAD: DATE OF SERVICE: 03/28/20 FOLLOW UP: ACCESSION NUMBERS(S): [id number] PROCEDURE(S): XR chest 1V REASON FOR EXAM: [...] patricia Interpreting Provider: Irving Dickson MD Normal [facility] Complete Blood Count w/o Dif brandon 03-28-2020 Platelets (Bld) [#/Vol] 53 K/mcL Low 140-400 [facility] Comment on above: Performed By: #### C BCND ####[address] [address] Erythrocyte distribution width (RBC) [Ratio] 13.4 % Normal 11.5-14.5 [facility] Comment on above: Performed By: #### C BCND ####[address] [address] Hematocrit (Bld) [Volume fraction] 33.1 % Low 37.5-50.1 [facility] Comment on above: Performed By: #### C BCND ####[address] [address] Hemoglobin (Bld) [Mass/Vol] 11.0 g/dL Low 12.9-16.9 [facility] Comment on above: Performed By: #### C BCND ####[address] [address] MCH (RBC) [Entitic mass] 33.2 g/dL Normal 31.6-35.5 [facility] Comment on above: Performed By: #### C BCND ####[address] [address] MCH (RBC) [Entitic mass] 30.9 pg Normal 28.0-33.3 [facility] Comment on above: Performed By: #### C BCND ####[address] [address] MCV (RBC) [Entitic vol] 93.0 fL Normal 83.0-100.0 [facility] Comment on above: Performed By: #### C BCND ####[address] [address] Platelet mean volume (Bld) [Entitic vol] 11.5 fL Normal 9.4-12.4 [facility] Comment on above: Performed By: #### C BCND ####[address] [address] RBC (Bld) [#/Vol] 3.56 M/mcL Low 4.19-5.50 [facility] Comment on above: Performed By: #### C BCND ####[address] [address] WBC (Bld) [#/Vol] 5.2 K/mcL Normal 4.3-11.1 [facility] Comment on above: Performed By: #### C BCND ####[address] [address] Comprehensive Metabolic Pane marquise 03-28-2020 Albumin [Mass/Vol] 2.4 g/dL Low 3.5-5.7 [facility] Comment on above: Performed By: #### C MP, TROP ####[address] [address] Albumin/Globulin [Mass ratio] 0.9 {ratio} Low 1.1-2.2 [facility] Comment on above: Performed By: #### C MP, TROP ####[address] [address] ALP [Catalytic activity/Vol] 84 Units/L Normal 34-104 [facility] Comment on above: Performed By: #### C MP, TROP ####[address] [address] ALT [Catalytic activity/Vol] 12 Units/L Normal 7-52 [facility] Comment on above: Performed By: #### C MP, TROP ####[address] [address] AST [Catalytic activity/Vol] 11 Units/L Low 13-39 [facility] Comment on above: Performed By: #### C MP, TROP ####[address] [address] Bilirubin [Mass/Vol] 0.9 mg/dL Normal 0.3-1.0 [facility] Comment on above: Performed By: #### C MP, TROP ####[address] [address] Calcium [Mass/Vol] 8.1 mg/dL Low 8.6-10.3 [facility] Comment on above: Performed By: #### C MP, TROP ####[address] [address] Chloride [Moles/Vol] 104 mmol/L Normal 98-107 [facility] Comment on above: Performed By: #### C MP, TROP ####[address] [address] CO2 [Moles/Vol] 21 mmol/L Low 23-29 [facility] Comment on above: Performed By: #### C MP, TROP ####[address] [address] Creatinine [Mass/Vol] 0.71 mg/dL Normal 0.70-1.30 [facility] Comment on above: Performed By: #### C MP, TROP ####[address] [address] eGFR For Americans > 60 Normal > 60 [facility] Comment on above: Result Comment: eGFR = Estimated Glomerular Filtration Rate reported as mL/min/1.73 square meters Chronic Kidney Disease: < 60; Kidney failure: < 15 Performed By: #### C MP, TROP ####[address] [address] eGFR For Non- Americans > 60 Normal > 60 [facility] Comment on above: Performed By: #### C MP, TROP ####[address] [address] Globulin (S) [Mass/Vol] 2.6 g/dL Normal 2.4-3.5 [facility] Comment on above: Performed By: #### C MP, TROP ####[address] [address] Glucose [Mass/Vol] 214 mg/dL High 70-105 [facility] Comment on above: Performed By: #### C MP, TROP ####[address] [address] Osmolality,Calculated 283 Normal 280-300 [facility] Comment on above: Performed By: #### C MP, TROP ####[address] [address] Potassium [Moles/Vol] 3.5 mmol/L Normal 3.5-5.1 [facility] Comment on above: Performed By: #### C MP, TROP ####[facility] [address] [place] [address] Protein [Mass/Vol] 5.0 g/dL Low 6.4-8.9 [facility] Comment on above: Performed By: #### C MP, TROP ####[address] [address] Sodium [Moles/Vol] 133 mmol/L Low 136-145 [facility] Comment on above: Performed By: #### C MP, TROP ####[facility] [address] [place], [place] [phone] Urea nitrogen [Mass/Vol] 15 mg/dL Normal 8-23 [facility] Comment on above: Performed By: #### C MP, TROP ####[facility] [address] [place], [place] 17084[address] Urea nitrogen/Creatinine [Mass ratio] 21 mg/mg Normal 6-26 [facility] Comment on above: Performed By: #### C MP, TROP ####[facility] [address] [place] [address] [phone] Electrocardiograph Reporton 03-28-2020 Electrocardiograph Report [address] [address] Electrocardiograph Report Signed PRELIMINARY DRAFT REPORT UNTIL ELECTRONICALLY SIGNED PATIENT: Mick Cottrell MR#: [id number] : 1940 AGE/SEX: 79 / M ADMITTED: 03/22/20 1528 OUTSIDE LOCN: LOCATION: [address] ATTENDING: Jim GUO PHYSICIAN: Rogelio Chapa TECHNOLOGIST: MONICO PHYSICIAN: Jenaro Morales PRIMARY PHYSICIAN: Jim Marshall DATE OF SERVICE: 03/28/20 ACCESSION NUMBERS(S): [id number] HT: 183 WT: 173 PROCEDURE(S): ECG 12 lead ECG cc: ; [place] [address] Test Date: 2020-03-28 Pat Name: Mick Cottrell Department: 2001 Room: 113 Gender: M 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1940 Requested By: Jenaro Morales Order Number: [id number] Samira MD: Rogelio Chapa Measurements Intervals [place] Rate: 86 P: 72 WV: 180 QRS: 77 QRSD: 78 T: 84 QT: 299 QTc: 343 Interpretive Statements SINUS RHYTHM ST DEVIATION AND MODERATE T-WAVE ABNORMALITY, CONSIDER LATERAL ISCHEMIA [-0.1+ mV T WAVE IN I/aVL/V5/V6] Electronically Signed On 03-31-2020 16:51:52 EST by Rogelio Smith [facility] OT Discharge Noteon 03-28-19 OT Discharge Note Occupational Therapy OT Rehab/Swing Discharge Instruction Start: 03/23/20 08:59 Freq: Status: Active Protocol: Document 03/28/20 11:36 [facility] (Rec: 03/28/20 11:39 [facility] [id number]) Occupational Therapy Discharge General Discharge Date 03/28/20 Referring Provider Jim Brennershahnazjeanne Diagnosis covid19 OT Treatment Diagnosis Need for [...] completion of ADL tasks when discharged from [facility]. Summary Summation Standardized Testing/Functional Outcomes FIM on eval Utilized/Results Discharged With Pt is discharging from [facility] to [facility] for increased medical needs. Charge Sheet G-Code Documentation Complete OT Charges/Documentation Finished? Yes Preliminary Draft Until Electronically Signed by Supervising Therapist Sarah [facility] POC Glucometer Teston 2020 Glucose [Mass/Vol] 200 mg/dL High 70-99 [facility] Comment on above: Performed By: #### P OCGLUCOMETER #### [facility] Laboratory [address] [place] [address] Glucose [Mass/Vol] 129 mg/dL High 70-99 [facility] Comment on above: Performed By: #### P OCGLUCOMETER #### [facility] [address] [place] [phone] PT Rehab/Swing Daily Noteon 03-28-2020 PT Rehab/Swing Daily Note Physical Therapy PT Rehab/Swing Daily Note. Start: 03/22/20 15:55 Freq: Status: Active Protocol: Document 03/28/20 09:22 MJS (Rec: 03/28/20 09:39 MJS [id number]) General/Subjective General Date of Admission 03/22/20 Referring Provider Jim Marshall PT Visit # AM Diagnosis covid19 PT Treatment Diagnosis Muscle weakness (generalized) Additional PT Treatment Diagnosis/ other reduced mobility, Clarification difficulty in walking Subjective Subjective Patient reports he is having trouble with breathing through his nose. Reports he is willing to work with MILLER APPRENTICE, but very frustrated during session . Precautions Restrictions/Precauti ons covid isolation lifted , fall precautions, SHOALWATER, use O2 @ eval, recent loss of [...] breathing . Respiratory therapist at door and MILLER APPRENTICE asked if there was more we could do to assist patients c/o not being able to breath through his nose. Patient then transfered to toilet. Respirtatory therapist returned and put a new O2 mask on patient. MILLER APPRENTICE checked O2 on 5L at 80%. Respiratory therapist then increased O2 and took over the tx session. Jenaro HARRIS then came in and requested MILLER APPRENTICE put patient on hold for therapy at this time. Left patient in care of respiratory therapist and SPORTS MANAGEMENT INTERN. Spoke with Elysia Ceballos PT about patients [...] Until Electronically Signed by Supervising Therapist Normal [facility] SARS-CoV-2 by Isothermal JONG on 03-28-2020 SARS-CoV-2 by Isothermal JONG Negative Normal Negative [facility] Comment on above: Order Comment: 79Nas [...] revoked sooner. Fact Sheet for Healthcare Providers: https://www.fda.gov/media/577545/download Fact Sheet for Patients: https://www.fda.gov/media/513759/download Performed By: #### P OCGLUCOMETER #### [facility] [address] [place] [address] Troponin Ion 03-28-2020 Troponin I.cardiac [Mass/Vol] 0.06 ng/mL Critically high < 0.04 [facility] Comment on above: Result Comment: Crit ical Result I_TnI:0.06, Result Phoned to: GRACE JOEL by: RBYCE ARMSTRONG on: 03/28/2020 10:29:06. Verified by Read Back. Performed By: #### C MP, TROP ####[facility] [address] [place] [address] Complete Blood Counton 03-27 Platelets (Bld) [#/Vol] 54 K/mcL Low 140-400 [facility] Comment on above: Performed By: #### P OCGLUCOMETER #### [facility] [address] [place] [address] Basophils (Bld) [#/Vol] 0.0 K/mcL Normal 0.0-0.2 [facility] Comment on above: Performed By: #### P OCGLUCOMETER #### [facility] [address] [place] [address] Basophils/100 WBC (Bld) 0.2 % Normal [facility] Comment on above: Performed By: #### P OCGLUCOMETER #### [facility] [address] [place] [address] Eosinophils (Bld) [#/Vol] 0.1 K/mcL Normal 0.0-0.6 [facility] Comment on above: Performed By: #### P OCGLUCOMETER #### [facility] [address] [place] [address] Eosinophils/100 WBC (Bld) 1.1 % Normal [facility] Comment on above: Performed By: #### P OCGLUCOMETER #### [facility] [address] [place] [address] Erythrocyte distribution width (RBC) [Ratio] 13.5 % Normal 11.5-14.5 [facility] Comment on above: Performed By: #### P OCGLUCOMETER #### [facility] [address] [place] [address] Hematocrit (Bld) [Volume fraction] 32.7 % Low 37.5-50.1 [facility] Comment on above: Performed By: #### P OCGLUCOMETER #### [facility] [address] [place] [address] Hemoglobin (Bld) [Mass/Vol] 10.9 g/dL Low 12.9-16.9 [facility] Comment on above: Performed By: #### P OCGLUCOMETER #### [facility] [address] [place] [address] Immature granulocytes/100 WBC (Bld) 0.3 % Normal 0-4 [facility] Comment on above: Performed By: #### P OCGLUCOMETER #### [facility] [address] [place] [address] Lymphocytes (Bld) [#/Vol] 0.3 K/mcL Low 0.6-4.6 [facility] Comment on above: Performed By: #### P OCGLUCOMETER #### [facility] [address] [place] [address] Lymphocytes/100 WBC (Bld) 4.7 % Normal [facility] Comment on above: Performed By: #### P OCGLUCOMETER #### [facility] [address] [place] [address] MCH (RBC) [Entitic mass] 31.5 pg Normal 28.0-33.3 [facility] Comment on above: Performed By: #### P OCGLUCOMETER #### [facility] [address] [place] [address] MCH (RBC) [Entitic mass] 33.3 g/dL Normal 31.6-35.5 [facility] Comment on above: Performed By: #### P OCGLUCOMETER #### [facility] [address] [place] [address] MCV (RBC) [Entitic vol] 94.5 fL Normal 83.0-100.0 [facility] Comment on above: Performed By: #### P OCGLUCOMETER #### [facility] [address] [place] [address] Monocytes (Bld) [#/Vol] 0.5 K/mcL Normal 0.0-1.3 [facility] Comment on above: Performed By: #### P OCGLUCOMETER #### [facility] [address] [place] [address] Monocytes/100 WBC (Bld) 7.2 % Normal [facility] Comment on above: Performed By: #### P OCGLUCOMETER #### [facility] [address] [place] [address] Neutrophils (Bld) [#/Vol] 5.5 K/mcL Normal 1.6-8.9 [facility] Comment on above: Performed By: #### P OCGLUCOMETER #### [facility] [address] [place] [address] Platelet mean volume (Bld) [Entitic vol] 11.1 fL Normal 9.4-12.4 [facility] Comment on above: Performed By: #### P OCGLUCOMETER #### [facility] [address] [place] [address] RBC (Bld) [#/Vol] 3.46 M/mcL Low 4.19-5.50 [facility] Comment on above: Performed By: #### P OCGLUCOMETER #### [facility] [address] [place] [address] Segmented neutrophils/100 WBC (Bld) 86.5 % Normal [facility] Comment on above: Performed By: #### P OCGLUCOMETER #### [facility] [address] [place] [address] WBC (Bld) [#/Vol] 6.4 K/mcL Normal 4.3-11.1 [facility] Comment on above: Performed By: #### P OCGLUCOMETER #### [facility] [address] [place] [address] POC Glucometer Teston 2020 Glucose [Mass/Vol] 209 mg/dL High 70-99 [facility] Comment on above: Performed By: #### P OCGLUCOMETER ####[facility] [address] [place] [address] Glucose [Mass/Vol] 193 mg/dL High 70-99 [facility] Comment on above: Performed By: #### P OCGLUCOMETER ####[facility] [address] [place] [address] Glucose [Mass/Vol] 157 mg/dL High 70-99 [facility] Comment on above: Performed By: #### P OCGLUCOMETER #### [facility] [address] [place] [address] Glucose [Mass/Vol] 104 mg/dL High 70-99 [facility] Comment on above: Performed By: #### P OCGLUCOMETER #### [facility] [address] [place] [address] Internal Med Progress Noteon 03-26-2020 Internal Med Progress Note [address] [address] Internal Med Progress Note Signed PRELIMINARY DRAFT REPORT UNTIL ELECTRONICALLY SIGNED PATIENT: Mick Cottrell MR#: [id number] : 1940 AGE/SEX: 79 / M ADMITTED: 03/22/20 1528 OUTSIDE LOCN: [address] ATTENDING: Jim Marshall MD cc: ; Date of Encounter: 03/26/20 Time of Encounter: 11:42 - Assessment and plan (1) COVID-19 Current Visit: Yes Status: Acute Assessment and plan: He was diagnosed with Covid 19 on 03/05/2020, out of isloation He was treated at [facility] for Covid 19 pneumonia and was treated [...] Diabetes mellitus type: type 2 Diabetes mellitus senior care insulin use: without rat exterminator use Diabetes mellitus complication status: without complication [...] DM 2, BPH who was admitted at [facility] on 03/05 with cough, SOB, and malaise [...] Xarelto . He was transferred to our [facility] as lateral transfer to continue his [...] Care Provider] - Documented By: Capri Iqbal HABILITATIVE INTERVENTIONIST Signed By: 03/26/20 1143 DD/ 1142 Initialized By: [id number] [facility] OT Swing/Rehab Daily Noteon 03-26-2020 OT Swing/Rehab Daily Note Occupational Therapy OT Rehab/Swing Daily Note Start: 03/23/20 08:59 Freq: Status: Active Protocol: Document 03/26/20 11:32 KMB (Rec: 03/26/20 11:39 KMB [id number]) General/Subjective General Referring Provider Jim Marshall OT [...] ons covid isolation lifted , fall precautions, SHOALWATER, use O2 @ eval, recent loss of [...] Until Electronically Signed by Supervising Therapist Normal [facility] POC Glucometer Teston 2020 Glucose [Mass/Vol] 83 mg/dL Normal 70-99 [facility] Comment on above: Performed By: #### P OCGLUCOMETER #### [facility] [address] [place] [address] Glucose [Mass/Vol] 186 mg/dL High 70-99 [facility] Comment on above: Performed By: #### P OCGLUCOMETER ####[facility] [id number] [place] [address] Glucose [Mass/Vol] 146 mg/dL High 70-99 [facility] Comment on above: Performed By: #### P OCGLUCOMETER ####[facility] [address] [place] [address] Glucose [Mass/Vol] 129 mg/dL High 70-99 [facility] Comment on above: Performed By: #### P OCGLUCOMETER #### [facility] [address] [place] [address] Glucose [Mass/Vol] 138 mg/dL High 70-99 [facility] Comment on above: Performed By: #### P OCGLUCOMETER #### [facility] [address] [place] [address] POC Glucometer Teston 2020 Glucose [Mass/Vol] 133 mg/dL High 70-99 [facility] Comment on above: Performed By: #### P OCGLUCOMETER #### [facility] [address] [place] [address] Glucose [Mass/Vol] 114 mg/dL High 70-99 [facility] Comment on above: Performed By: #### P OCGLUCOMETER ####[facility] [id number] [place] [address] Glucose [Mass/Vol] 100 mg/dL High 70-99 [facility] Comment on above: Performed By: #### P OCGLUCOMETER #### [facility] [address], [place] [id number] (12 Glucose [Mass/Vol] 183 mg/dL High 70-99 [facility] Comment on above: Performed By: #### P OCGLUCOMETER ####[facility] [address] [place], [place] [id number] Internal Med Progress Noteon 03-24-2020 Internal Med Progress Note [facility] [address] [place] [address] Internal Med Progress Note Signed PRELIMINARY DRAFT REPORT UNTIL ELECTRONICALLY SIGNED PATIENT: Mick Cottrell MR#: [id number] : 1940 AGE/SEX: 79 / M ADMITTED: 03/22/20 1528 OUTSIDE LOCN: LOCATION: [address] ATTENDING: Jim Marshall MD cc: ; Date of Encounter: 03/24/20 Time of Encounter: 12:46 - Assessment and plan (1) COVID-19 Current Visit: Yes Status: Acute Assessment and plan: He was diagnosed with Covid 19 on 03/05/2020 He was treated at [facility] for Covid 19 pneumonia and was treated [...] Diabetes mellitus type: type 2 Diabetes mellitus senior care insulin use: without rat exterminator use Diabetes mellitus complication status: without complication [...] HTN, DM2, BPH who was admitted at [facility] on 03/05 with cough, SOB, and malaise [...] on Xarelto. He was transferred to our [facility] as lateral transfer to continue his [...] - Documented By: Capri IqbalN Signed By: 03/24/20 1256 DD/ 1246 Initialized By: [id number] Normal [facility] OT Swing/Rehab Daily Noteon 03-24-2020 OT Swing/Rehab Daily Note Occupational Therapy OT Rehab/Swing Daily Note Start: 03/23/20 08:59 Freq: Status: Active Protocol: Document 03/24/20 12:38 KMT (Rec: 03/24/20 12:46 KMT [id number]) General/Subjective General Referring Provider Jim Marshall OT Visit # am Diagnosis covid19 OT Treatment Diagnosis Need for assistance with personal care Additional OT Treatment Diagnosis/ none identified Clarification Subjective Subjective reports he didn't know if he could walk, reports he gets confused with breathing Restrictions Weight Bearing Restrictions/Precauti ons covid isolation (lifted ), fall precautions, SHOALWATER, use O2 @ eval, recent loss of [...] Until Electronically Signed by Supervising Therapist Normal [facility] POC Glucometer Teston 2019 Glucose [Mass/Vol] 154 mg/dL High 70-99 [facility] Comment on above: Performed By: #### P OCGLUCOMETER ####[facility] [id number] [place] [id number] Glucose [Mass/Vol] 128 mg/dL High 70-99 [facility] Comment on above: Performed By: #### P OCGLUCOMETER ####[facility] [address] [place] [address] Glucose [Mass/Vol] 108 mg/dL High 70-99 [facility] Comment on above: Performed By: #### P OCGLUCOMETER ####[facility] [address] [place] [address] PT Rehab/Swing Daily Noteon 03-24-2020 PT Rehab/Swing Daily Note Physical Therapy PT Rehab/Swing Daily Note. Start: 03/22/20 15:55 Freq: Status: Active Protocol: Document 03/24/20 10:08 [facility] (Rec: 03/24/20 10:23 [facility] [id number]) General/Subjective General Date of Admission 03/22/20 Referring Provider Jim Marshall PT Visit # AM Diagnosis covid19 PT Treatment Diagnosis Muscle weakness (generalized) Additional PT Treatment Diagnosis/ other reduced mobility, Clarification difficulty in walking Subjective Subjective Pt supine in bed with HOB elevated eating breakfast when MILLER APPRENTICE arrived for first attempt with pt stating he just started eating breakfast and requested more time to finish. MILLER APPRENTICE arrived again with pt agreeable to therapy. Pt stated 0/10 pain at start of session and stated he slept well last night. Pt on 4L of wall air with vitals checked at start of session with O2: 92%. Precautions Restrictions/Precauti ons covid isolation (lifted ), fall precautions, SHOALWATER, use O2 @ eval, recent loss of [...] verbal cues for AD use and safety- 5'/10'-CGA Assistive Devices Rolling Walker Endurance Fair Other Static standing act at RW for urinal use with pt able to manage urinal use and depends managment with MILLER APPRENTICE only assisting in balance support at [facility] Therapeutic Exercises Therapeutic Exercise Supine ther ex B LE's all x 10 with constant verbal cues for proper LE alignment, slow and controlled movement: -AP's -Quad set with 3 sec hold -Heel slides -Glute sets with 3 sec hold Assessment and Plan Assessment Assessment MILLER APPRENTICE attempted AM session at 0828 with pt requesting more time to finish breakfast. MILLER APPRENTICE arrived again at 0835 with pt agreeable [...] to RW with static standing act with MILLER APPRENTICE maintaining balance support at [facility] for pt to use urinal. Pt then progressed with stand->Sit EOB and Nursing arrived to administer meds. Pt donned cleaned gown seated EOB with pt then requesting to use [facility] d/t to urge of a BM. Pt progressed with sit->stand and amb 5' with use of RW f/b stand->sit at [facility]. Pt required extra time in attempts to have a BM with no success this AM. Pt then progressed with sit->stand from [facility] to RW f/b pt amb to standard [...] Until Electronically Signed by Supervising Therapist Normal [facility] Basic Metabolic Panelon 12-3 Calcium [Mass/Vol] 7.9 mg/dL Low 8.6-10.3 [facility] Comment on above: Performed By: #### B MP ####[address] [address] Chloride [Moles/Vol] 106 mmol/L Normal 98-107 [facility] Comment on above: Performed By: #### B MP ####[address] [address] CO2 [Moles/Vol] 25 mmol/L Normal 23-29 [facility] Comment on above: Performed By: #### B MP ####[address] [address] Creatinine [Mass/Vol] 0.75 mg/dL Normal 0.70-1.30 [facility] Comment on above: Performed By: #### B MP ####[address] [address] eGFR For Americans > 60 Normal > 60 [facility] Comment on above: Result Comment: eGFR = Estimated Glomerular Filtration Rate reported as mL/min/1.73 square meters Chronic Kidney Disease: < 60; Kidney failure: < 15 Performed By: #### B MP ####[address] [address] eGFR For Non- Americans > 60 Normal > 60 [facility] Comment on above: Performed By: #### B MP ####[address] [address] Glucose [Mass/Vol] 109 mg/dL High 70-105 [facility] Comment on above: Performed By: #### B MP ####[address] [address] Osmolality,Calculated 286 Normal 280-300 [facility] Comment on above: Performed By: #### B MP ####[address] [address] Potassium [Moles/Vol] 3.9 mmol/L Normal 3.5-5.1 [facility] Comment on above: Performed By: #### B MP ####[address] [address] Sodium [Moles/Vol] 136 mmol/L Normal 136-145 [facility] Comment on above: Performed By: #### B MP ####[address] [address] Urea nitrogen [Mass/Vol] 23 mg/dL Normal 8-23 [facility] Comment on above: Performed By: #### B MP ####[address] [address] Urea nitrogen/Creatinine [Mass ratio] 31 mg/mg High 6-26 [facility] Comment on above: Performed By: #### B MP ####[address] [address] Complete Blood Counton 03-23 Platelets (Bld) [#/Vol] Decreased Abnormal Normal [facility] Comment on above: Performed By: #### C BC ####[address] [address] Platelets (Bld) [#/Vol] 69 K/mcL Low 140-400 [facility] Comment on above: Performed By: #### C BC ####[address] [address] Basophils (Bld) [#/Vol] 0.0 K/mcL Normal 0.0-0.2 [facility] Comment on above: Performed By: #### C BC ####[address] [address] Basophils/100 WBC (Bld) 0.1 % Normal [facility] Comment on above: Performed By: #### C BC ####[address] [address] Eosinophils (Bld) [#/Vol] 0.1 K/mcL Normal 0.0-0.6 [facility] Comment on above: Performed By: #### C BC ####[address] [address] Eosinophils/100 WBC (Bld) 1.7 % Normal [facility] Comment on above: Performed By: #### C BC ####[address] [address] Erythrocyte distribution width (RBC) [Ratio] 13.5 % Normal 11.5-14.5 [facility] Comment on above: Performed By: #### C BC ####[address] [address] Hematocrit (Bld) [Volume fraction] 35.9 % Low 37.5-50.1 [facility] Comment on above: Performed By: #### C BC ####[address] [address] Hemoglobin (Bld) [Mass/Vol] 11.9 g/dL Low 12.9-16.9 [facility] Comment on above: Performed By: #### C BC ####[address] [address] Immature granulocytes/100 WBC (Bld) 0.6 % Normal 0-4 [facility] Comment on above: Performed By: #### C BC ####[address] [address] Lymphocytes (Bld) [#/Vol] 0.5 K/mcL Low 0.6-4.6 [facility] Comment on above: Performed By: #### C BC ####[address] [address] Lymphocytes/100 WBC (Bld) 6.3 % Normal [facility] Comment on above: Performed By: #### C BC ####[address] [address] MCH (RBC) [Entitic mass] 33.1 g/dL Normal 31.6-35.5 [facility] Comment on above: Performed By: #### C BC ####[address] [address] MCH (RBC) [Entitic mass] 31.2 pg Normal 28.0-33.3 [facility] Comment on above: Performed By: #### C BC ####[address] [address] MCV (RBC) [Entitic vol] 94.0 fL Normal 83.0-100.0 [facility] Comment on above: Performed By: #### C BC ####[address] [address] Monocytes (Bld) [#/Vol] 0.4 K/mcL Normal 0.0-1.3 [facility] Comment on above: Performed By: #### C BC ####[address] [address] Monocytes/100 WBC (Bld) 4.3 % Normal [facility] Comment on above: Performed By: #### C BC ####[address] [address] Neutrophils (Bld) [#/Vol] 7.0 K/mcL Normal 1.6-8.9 [facility] Comment on above: Performed By: #### C BC ####[address] [address] Platelet mean volume (Bld) [Entitic vol] 11.6 fL Normal 9.4-12.4 [facility] Comment on above: Performed By: #### C BC ####[address] [address] RBC (Bld) [#/Vol] 3.82 M/mcL Low 4.19-5.50 [facility] Comment on above: Performed By: #### C BC ####[address] [address] Segmented neutrophils/100 WBC (Bld) 87.0 % Normal [facility] Comment on above: Performed By: #### C BC ####[address] [address] WBC (Bld) [#/Vol] 8.1 K/mcL Normal 4.3-11.1 [facility] Comment on above: Performed By: #### C BC ####[address] [address] OT Progress Noteon 0 OT Progress Note [...] Freq: Status: Active Protocol: Document 03/23/20 08:59 [facility] (Rec: 03/23/20 09:04 [facility] [id number]) Occupational Therapy Reassessment General OT Visit # [...] ons covid isolation (lifted ), fall precautions, SHOALWATER, use O2 @ eval, recent loss of [...] Until Electronically Signed by Supervising Therapist Normal [facility] OT Swing/Rehab Daily Noteon 03-23-2020 OT Swing/Rehab Daily Note Occupational Therapy OT Rehab/Swing Daily Note Start: 03/23/20 08:59 Freq: Status: Active Protocol: Document 03/23/20 10:13 [facility] (Rec: 03/23/20 10:19 [facility] [id number]) General/Subjective General Referring Provider Jim Marshall OT Visit # am Diagnosis covid19 OT Treatment Diagnosis Need for assistance with personal care Additional OT Treatment Diagnosis/ none identified Clarification Subjective Subjective Pt pleasant, agreeable to participate in OT this morning . No pain complaints. Does complain of SOB. Restrictions Weight Bearing Restrictions/Precauti ons covid isolation (lifted ), fall precautions, SHOALWATER, use O2 @ eval, recent loss of [...] min/mod A overall. Therapist provided pt with groundwater monitoring technician and education on use for unthreading/threading BLEs [...] Until Electronically Signed by Supervising Therapist Normal [facility] POC Glucometer Teston 2019 Glucose [Mass/Vol] 128 mg/dL High 70-99 [facility] Comment on above: Performed By: #### P OCGLUCOMETER ####[address] [address] Glucose [Mass/Vol] 191 mg/dL High 70-99 [facility] Comment on above: Performed By: #### P OCGLUCOMETER ####[address] [address] Glucose [Mass/Vol] 105 mg/dL High 70-99 [facility] Comment on above: Performed By: #### P OCGLUCOMETER ####[address] [address] Glucose [Mass/Vol] 173 mg/dL High 70-99 [facility] Comment on above: Performed By: #### P OCGLUCOMETER ####[address] [address] PT Rehab/Swing Daily Noteon 03-23-2020 PT Rehab/Swing Daily Note Physical Therapy PT Rehab/Swing Daily Note. Start: 03/22/20 15:55 Freq: Status: Active Protocol: Document 03/23/20 14:20 [facility] (Rec: 03/23/20 14:26 [facility] [id number]) General/Subjective General Date of Admission 03/22/20 Referring [...] ons covid isolation (lifted ), fall precautions, SHOALWATER, use O2 @ eval, recent loss of [...] Until Electronically Signed by Supervising Therapist Normal [facility] Prealbuminon 03-23-2020 Prealbumin [Mass/Vol] 21.1 mg/dL Normal 17.0-34.0 [facility] Comment on above: Performed By: #### P OCGLUCOMETER #### [facility] [address] [place] [address] Internal Med History&Physica marquise 03-22-2020 Internal Med History&Physical [address] [address] Internal Med History Physical Signed with David PRELIMINARY DRAFT REPORT UNTIL ELECTRONICALLY SIGNED PATIENT: Mick Cottrell MR#: [id number] : 1940 AGE/SEX: 79 / M ADMITTED: 03/22/20 1528 OUTSIDE LOCN: LOCATION: [facility] [address] ATTENDING: Jim Marshall MD cc: ; ADDENDUM [...] HTN, DM2, BPH who was admitted at [facility] on 03/05 with cough, SOB, and malaise [...] on Xarelto. He was transferred to our [facility] as lateral transfer to continue his [...] 19 on 03/05/2020 He was treated at [facility] for Covid 19 pneumonia and was treated [...] Diabetes mellitus type: type 2 Diabetes mellitus rat exterminator insulin use: without rat exterminator use Diabetes mellitus complication status: without complication [...] Signed By: 03/22/201955 DD/ 1539 Initialized By: [id number] [facility] OT Noteon 03-22-2020 OT Note Weekly Rehab Team Goal Weekly Rehab Team Goals Start: 03/19/20 15:13 Freq: QWEEK Status: Active Protocol: Activity Type Activity Date Activity User E-Sign Co-Sign Detail Recorded Client Recorded Date Recorded By Document 03/22/20 13:55 KMT [id number] 03/22/20 13:59 KMT 03/22/20 13:55 Mobility (PT/OT/TR) ROM UE Current Status shoulders 90* flexion, WFL distal Date 03/22/20 Strength UE Current State BUE 4/5 but fatigues Strength UE Weekly Goal improve Date 03/22/20 Self Care (OT/NSG/MEDICAL VOUCHER CLERK/PT) UE Dressing Current Status sba UE Dressing [...] OT information entered by Fidelia ESPINOSA/Jaye Smith [facility] OT Swing/Rehab Daily Noteon 03-22-2020 OT Swing/Rehab Daily Note Occupational Therapy OT Rehab/Swing Daily Note Start: 03/22/20 12:04 Freq: Status: Active Protocol: Document 03/22/20 12:04 KMT (Rec: 03/22/20 12:09 KMT [id number]) General/Subjective General Referring Provider Jim Marshall OT Visit # am Diagnosis covid19 OT Treatment Diagnosis Need for assistance with personal care Subjective Subjective reports he thought he would just get out of bed and go Restrictions Weight Bearing Restrictions/Precauti ons covid isolation, fall precautions, SHOALWATER, use O2 @ eval, recent loss of [...] Until Electronically Signed by Supervising Therapist Normal [facility] POC Glucometer Teston 2019 Glucose [Mass/Vol] 176 mg/dL High 70-99 [facility] Comment on above: Performed By: #### P OCGLUCOMETER ####[facility] [address] [place] [address] Glucose [Mass/Vol] 183 mg/dL High 70-99 [facility] Comment on above: Performed By: #### P OCGLUCOMETER ####[facility] [address] [place] [address] Glucose [Mass/Vol] 65 mg/dL Low 70-99 [facility] Comment on above: Performed By: #### P OCGLUCOMETER #### [facility] [address] [place] [address] Glucose [Mass/Vol] 179 mg/dL High 70-99 [facility] Comment on above: Performed By: #### P OCGLUCOMETER ####[facility] [id number] [place] [address] Glucose [Mass/Vol] 206 mg/dL High 70-99 [facility] Comment on above: Performed By: #### P OCGLUCOMETER #### [facility] [address] [place] [address] Glucose [Mass/Vol] 253 mg/dL High 70-99 [facility] Comment on above: Performed By: #### P OCGLUCOMETER ####[facility] [address] [place] [address] Glucose [Mass/Vol] 125 mg/dL High 70-99 [facility] Comment on above: Performed By: #### P OCGLUCOMETER ####[facility] [address] [place] [address] Glucose [Mass/Vol] 258 mg/dL High 70-99 [facility] Comment on above: Performed By: #### P OCGLUCOMETER #### [facility] [address] [place] [address] [id number] (54 PT Rehab/Swing Daily Noteon 03-22-2020 PT Rehab/Swing Daily Note Physical Therapy PT Rehab/Swing Daily Note. Start: 03/22/20 15:55 Freq: Status: Active Protocol: Document 03/22/20 16:11 HMT (Rec: 03/22/20 16:26 HMT [id number]) General/Subjective General Date of Admission 03/22/20 Referring [...] activities and endurance, may need to give [facility] education regarding breathing techniques. Time Started 13:30 Time Ended 14:25 Total Treatment Time (Min) (min) 55 Timed Code Treatment Minutes (min) 55 Charge Sheet G-Code Therapies Protocol: REHAB.8MIN Therapeutic Exercise 2 Therapeutic Activity 1 Gait Training 1 Documentation Complete PT Charges/Documentation Finished? Yes Last Visit Is patient being discharged from PT No today? Preliminary Draft Until Electronically Signed by Supervising Therapist Normal [facility] Basic Metabolic Panelon 12- Calcium [Mass/Vol] 7.7 mg/dL Low 8.6-10.3 [facility] Comment on above: Performed By: #### B MP ####[facility] [id number] [place] [address] Chloride [Moles/Vol] 106 mmol/L Normal 98-107 [facility] Comment on above: Performed By: #### B MP ####[address] [address] CO2 [Moles/Vol] 24 mmol/L Normal 23-29 [facility] Comment on above: Performed By: #### B MP ####[address] [address] Creatinine [Mass/Vol] 0.81 mg/dL Normal 0.70-1.30 [facility] Comment on above: Performed By: #### B MP ####[address] [address] eGFR For Americans > 60 Normal > 60 [facility] Comment on above: Result Comment: eGFR = Estimated Glomerular Filtration Rate reported as mL/min/1.73 square meters Chronic Kidney Disease: < 60; Kidney failure: < 15 Performed By: #### B MP ####[address] [address] eGFR For Non- Americans > 60 Normal > 60 [facility] Comment on above: Performed By: #### B MP ####[address] [address] Glucose [Mass/Vol] 224 mg/dL High 70-105 [facility] Comment on above: Performed By: #### B MP ####[address] [address] Osmolality,Calculated 294 Normal 280-300 [facility] Comment on above: Performed By: #### B MP ####[address] [address] Potassium [Moles/Vol] 4.1 mmol/L Normal 3.5-5.1 [facility] Comment on above: Performed By: #### B MP ####[address] [address] Sodium [Moles/Vol] 135 mmol/L Low 136-145 [facility] Comment on above: Performed By: #### B MP ####[address] [address] Urea nitrogen [Mass/Vol] 31 mg/dL High 8-23 [facility] Comment on above: Performed By: #### B MP ####[address] [address] Urea nitrogen/Creatinine [Mass ratio] 38 mg/mg High 6- [facility] Comment on above: Performed By: #### B MP ####[address] [address] Complete Blood Counton 03-21 Platelets (Bld) [#/Vol] 77 K/mcL Low 140-400 [facility] Comment on above: Performed By: #### C BC ####[address] [address] Basophils (Bld) [#/Vol] 0.0 K/mcL Normal 0.0-0.2 [facility] Comment on above: Performed By: #### C BC ####[address] [address] Basophils/100 WBC (Bld) 0.1 % Normal [facility] Comment on above: Performed By: #### C BC ####[address] [address] Eosinophils (Bld) [#/Vol] 0.1 K/mcL Normal 0.0-0.6 [facility] Comment on above: Performed By: #### C BC ####[address] [address] Eosinophils/100 WBC (Bld) 0.7 % Normal [facility] Comment on above: Performed By: #### C BC ####[address] [address] Erythrocyte distribution width (RBC) [Ratio] 13.1 % Normal 11.5-14.5 [facility] Comment on above: Performed By: #### C BC ####[address] [address] Hematocrit (Bld) [Volume fraction] 37.4 % Low 37.5-50.1 [facility] Comment on above: Performed By: #### C BC ####[address] [address] Hemoglobin (Bld) [Mass/Vol] 12.6 g/dL Low 12.9-16.9 [facility] Comment on above: Performed By: #### C BC ####[address] [address] Immature granulocytes/100 WBC (Bld) 0.6 % Normal 0-4 [facility] Comment on above: Performed By: #### C BC ####[address] [address] Lymphocytes (Bld) [#/Vol] 0.5 K/mcL Low 0.6-4.6 [facility] Comment on above: Performed By: #### C BC ####[address] [address] Lymphocytes/100 WBC (Bld) 4.5 % Normal [facility] Comment on above: Performed By: #### C BC ####[address] [address] MCH (RBC) [Entitic mass] 33.7 g/dL Normal 31.6-35.5 [facility] Comment on above: Performed By: #### C BC ####[address] [address] MCH (RBC) [Entitic mass] 31.8 pg Normal 28.0-33.3 [facility] Comment on above: Performed By: #### C BC ####[address] [address] MCV (RBC) [Entitic vol] 94.4 fL Normal 83.0-100.0 [facility] Comment on above: Performed By: #### C BC ####[address] [address] Monocytes (Bld) [#/Vol] 0.5 K/mcL Normal 0.0-1.3 [facility] Comment on above: Performed By: #### C BC ####[address] [address] Monocytes/100 WBC (Bld) 4.3 % Normal [facility] Comment on above: Performed By: #### C BC ####[address] [address] Neutrophils (Bld) [#/Vol] 9.7 K/mcL High 1.6-8.9 [facility] Comment on above: Performed By: #### C BC ####[address] [address] Platelet mean volume (Bld) [Entitic vol] 11.3 fL Normal 9.4-12.4 [facility] Comment on above: Performed By: #### C BC ####[facility] [address] [place] [address] RBC (Bld) [#/Vol] 3.96 M/mcL Low 4.19-5.50 [facility] Comment on above: Performed By: #### C BC ####[facility] [address] [place] [address] Segmented neutrophils/100 WBC (Bld) 89.8 % Normal [facility] Comment on above: Performed By: #### C BC ####[address] [address] WBC (Bld) [#/Vol] 10.8 K/mcL Normal 4.3-11.1 [facility] Comment on above: Performed By: #### C BC ####[address] [address] Internal Med Progress Noteon 03-21-2020 Internal Med Progress Note [facility] [address] [place] [address] Internal Med Progress Note Signed PRELIMINARY DRAFT REPORT UNTIL ELECTRONICALLY SIGNED PATIENT: Mick Cottrell MR#: [id number] : 1940 AGE/SEX: 79 / M ADMITTED: 03/19/20 1426 OUTSIDE LOCN: LOCATION: [address] ATTENDING: Jim Marshall MD cc: ; Date of Encounter: 03/21/20 Time of Encounter: 16:03 - Assessment and plan (1) COVID-19 Current Visit: Yes Status: Acute Assessment and plan: Patient was admitted and diagnosed with Covid 19 on 03/05/2020. Stated that he was symptomatic for approximate 5 days prior to admission. Patient was treated at [facility] for Covid 19 pneumonia and was treated with empiric antibiotics, Decadron and transfusion of convalescent plasma, along with Remdesivir. During his stay his pulmonary status improved over the course of time and he currently was weaned on his oxygen to the present 3 L/m by cannula and transferred to [facility] for inpatient rehabilitation. (2) Diabetes mellitus Current Visit: Yes Status: Chronic Assessment and plan: Continue ADA diet. Monitor fingerstick blood sugars. Insulin sliding scale. Qualifiers: Diabetes mellitus type: type 2 Diabetes mellitus senior care insulin use: without rat exterminator use Diabetes mellitus complication status: without complication [...] inpatient rehab/swing. Patient will transfer laterally to [facility] and eventually convert to swing bed. [...] Documented By: Capri Iqbal APN Signed By: 03/21/20 1611 DD/ 1603 Initialized By: [id number] Normal [facility] POC Glucometer Teston 2019 Glucose [Mass/Vol] 61 mg/dL Low 70-99 [facility] Comment on above: Performed By: #### P OCGLUCOMETER #### [facility] [address] [place] [address] Glucose [Mass/Vol] 177 mg/dL High 70-99 [facility] Comment on above: Result Comment: Glu2 : RN Notified Performed By: #### P OCGLUCOMETER ####[facility] [address] [place] [address] C-Reactive Proteinon 020 CRP [Mass/Vol] mg/L Normal Less than 10 [facility] Comment on above: Performed By: #### P OCGLUCOMETER #### [facility] [address] [place] [address] Complete Blood Counton 03-20 Platelets (Bld) [#/Vol] 82 K/mcL Low 140-400 [facility] Comment on above: Performed By: #### C BC ####[address] [address] Basophils (Bld) [#/Vol] 0.0 K/mcL Normal 0.0-0.2 [facility] Comment on above: Performed By: #### C BC ####[address] [address] Basophils/100 WBC (Bld) 0.0 % Normal [facility] Comment on above: Performed By: #### C BC ####[address] [address] Eosinophils (Bld) [#/Vol] 0.0 K/mcL Normal 0.0-0.6 [facility] Comment on above: Performed By: #### C BC ####[address] [address] Eosinophils/100 WBC (Bld) 0.1 % Normal [facility] Comment on above: Performed By: #### C BC ####[address] [address] Erythrocyte distribution width (RBC) [Ratio] 13.0 % Normal 11.5-14.5 [facility] Comment on above: Performed By: #### C BC ####[address] [address] Hematocrit (Bld) [Volume fraction] 35.4 % Low 37.5-50.1 [facility] Comment on above: Performed By: #### C BC ####[address] [address] Hemoglobin (Bld) [Mass/Vol] 12.0 g/dL Low 12.9-16.9 [facility] Comment on above: Performed By: #### C BC ####[address] [address] Immature granulocytes/100 WBC (Bld) 0.5 % Normal 0-4 [facility] Comment on above: Performed By: #### C BC ####[address] [address] Lymphocytes (Bld) [#/Vol] 0.5 K/mcL Low 0.6-4.6 [facility] Comment on above: Performed By: #### C BC ####[address] [address] Lymphocytes/100 WBC (Bld) 6.2 % Normal [facility] Comment on above: Performed By: #### C BC ####[address] [address] MCH (RBC) [Entitic mass] 31.7 pg Normal 28.0-33.3 [facility] Comment on above: Performed By: #### C BC ####[address] [address] MCH (RBC) [Entitic mass] 33.9 g/dL Normal 31.6-35.5 [facility] Comment on above: Performed By: #### C BC ####[address] [address] MCV (RBC) [Entitic vol] 93.4 fL Normal 83.0-100.0 [facility] Comment on above: Performed By: #### C BC ####[address] [address] Monocytes (Bld) [#/Vol] 0.4 K/mcL Normal 0.0-1.3 [facility] Comment on above: Performed By: #### C BC ####[address] [address] Monocytes/100 WBC (Bld) 4.5 % Normal [facility] Comment on above: Performed By: #### C BC ####[address] [address] Neutrophils (Bld) [#/Vol] 7.3 K/mcL Normal 1.6-8.9 [facility] Comment on above: Performed By: #### C BC ####[address] [address] Platelet mean volume (Bld) [Entitic vol] 11.4 fL Normal 9.4-12.4 [facility] Comment on above: Performed By: #### C BC ####[address] [address] RBC (Bld) [#/Vol] 3.79 M/mcL Low 4.19-5.50 [facility] Comment on above: Performed By: #### C BC ####[address] [address] Segmented neutrophils/100 WBC (Bld) 88.7 % Normal [facility] Comment on above: Performed By: #### C BC ####[facility] [address] [place] [address] WBC (Bld) [#/Vol] 8.2 K/mcL Normal 4.3-11.1 [facility] Comment on above: Performed By: #### C BC ####[facility] [address] [place] [address] Comprehensive Metabolic Pane marquise 03-20-2020 Albumin [Mass/Vol] 2.4 g/dL Low 3.5-5.7 [facility] Comment on above: Performed By: #### P OCGLUCOMETER #### [facility] [address] [place] [address] Albumin/Globulin [Mass ratio] 1.3 {ratio} Normal 1.1-2.2 [facility] Comment on above: Performed By: #### P OCGLUCOMETER #### [facility] [address] [place] [address] ALP [Catalytic activity/Vol] 84 Units/L Normal 34-104 [facility] Comment on above: Performed By: #### P OCGLUCOMETER #### [facility] [address] [place] [address] ALT [Catalytic activity/Vol] 14 Units/L Normal 7-52 [facility] Comment on above: Performed By: #### P OCGLUCOMETER #### [facility] [address] [place] [address] AST [Catalytic activity/Vol] 10 Units/L Low 13-39 [facility] Comment on above: Performed By: #### P OCGLUCOMETER #### [facility] [address] [place] [address] Bilirubin [Mass/Vol] 0.7 mg/dL Normal 0.3-1.0 [facility] Comment on above: Performed By: #### P OCGLUCOMETER #### [facility] [address] [place] [address] Calcium [Mass/Vol] 8.0 mg/dL Low 8.6-10.3 [facility] Comment on above: Performed By: #### P OCGLUCOMETER #### [facility] [address] [place] [address] Chloride [Moles/Vol] 106 mmol/L Normal 98-107 [facility] Comment on above: Performed By: #### P OCGLUCOMETER #### [facility] [address] [place] [address] CO2 [Moles/Vol] 26 mmol/L Normal 23-29 [facility] Comment on above: Performed By: #### P OCGLUCOMETER #### [facility] [address] [place] [address] Creatinine [Mass/Vol] 0.82 mg/dL Normal 0.70-1.30 [facility] Comment on above: Performed By: #### P OCGLUCOMETER #### [facility] [address] [place] [address] eGFR For Americans > 60 Normal > 60 [facility] Comment on above: Result Comment: eGFR = Estimated Glomerular Filtration Rate reported as mL/min/1.73 square meters Chronic Kidney Disease: < 60; Kidney failure: < 15 Performed By: #### P OCGLUCOMETER #### [facility] [address] [place] [address] eGFR For Non- Americans > 60 Normal > 60 [facility] Comment on above: Performed By: #### P OCGLUCOMETER #### [facility] [address] [place] [address] Globulin (S) [Mass/Vol] 1.9 g/dL Low 2.4-3.5 [facility] Comment on above: Performed By: #### P OCGLUCOMETER #### [facility] [address] [place] [address] Glucose [Mass/Vol] 119 mg/dL High 70-105 [facility] Comment on above: Performed By: #### P OCGLUCOMETER #### [facility] [address] [place] [address] Osmolality,Calculated 289 Normal 280-300 [facility] Comment on above: Performed By: #### P OCGLUCOMETER #### [facility] [address] [place] [address] Potassium [Moles/Vol] 3.9 mmol/L Normal 3.5-5.1 [facility] Comment on above: Performed By: #### P OCGLUCOMETER #### [facility] [address] [place] [address] Protein [Mass/Vol] 4.3 g/dL Low 6.4-8.9 [facility] Comment on above: Performed By: #### P OCGLUCOMETER #### [facility] [address] [place] [address] Sodium [Moles/Vol] 135 mmol/L Low 136-145 [facility] Comment on above: Performed By: #### P OCGLUCOMETER #### [facility] [address] [place] [address] Urea nitrogen [Mass/Vol] 36 mg/dL High 8-23 [facility] Comment on above: Performed By: #### P OCGLUCOMETER #### [facility] [address] [place] [address] Urea nitrogen/Creatinine [Mass ratio] 44 mg/mg High 6-26 [facility] Comment on above: Performed By: #### P OCGLUCOMETER #### [facility] [address] [place] [address] [phone] D-Dimeron 03-20-2020 D-Dimer 855 ng/mLFEU High 0-500 [facility] Comment on above: Result Comment: A po sitive D-Dimer result does not predict a specific disease. Result should be interpreted in conjunction with the patient's medical history, clinical presentation, and other findings. Performed By: #### D D ####[facility] [address] [place] [id number] Ferritinon 03-20-2020 Ferritin [Mass/Vol] 337 ng/mL High 20-250 [facility] Comment on above: Performed By: #### P OCGLUCOMETER #### [facility] [address] [id number] Internal Med Progress Noteon 03-20-2020 Internal Med Progress Note [facility] [address] [place] [address] Internal Med Progress Note Signed PRELIMINARY DRAFT REPORT UNTIL ELECTRONICALLY SIGNED PATIENT: Mick Cottrell MR#: [id number] : 1940 AGE/SEX: 79 / M ADMITTED: 03/19/20 1426 OUTSIDE LOCN: LOCATION: [address] ATTENDING: Jim Marshall MD cc: ; [...] with atrial fibrillation during his stay at [facility]. He continues to have irregular heart rate [...] Diabetes mellitus type: type 2 Diabetes mellitus rat exterminator insulin use: without senior care use Diabetes mellitus complication status: without complication [...] inpatient rehab/swing. Patient will transfer laterally to [facility] and eventually convert to swing bed. [...] By: 03/20/20 1238 DD/ 1232 Initialized By: [id number] Normal [facility] Magnesiumon 03-20-2020 Magnesium [Mass/Vol] 1.9 mg/dL Normal 1.6-2.6 [facility] Comment on above: Performed By: #### P OCGLUCOMETER #### [facility] [address] [place] [address] POC Glucometer Teston 2019 Glucose [Mass/Vol] 223 mg/dL High 70-99 [facility] Comment on above: Performed By: #### P OCGLUCOMETER ####[facility] [address] [place] [address] Glucose [Mass/Vol] 192 mg/dL High 70-99 [facility] Comment on above: Performed By: #### P OCGLUCOMETER #### [facility] [address] [place] [address] Glucose [Mass/Vol] 150 mg/dL High 70-99 [facility] Comment on above: Performed By: #### P OCGLUCOMETER #### [facility] [address] [place] [address] Glucose [Mass/Vol] 302 mg/dL High 70-99 [facility] Comment on above: Performed By: #### P OCGLUCOMETER #### [facility] [address] [place] [address] Internal Med History&Physica marquise 03-19-2020 Internal Med History&Physical [facility] [address] [place] [address] Internal Med History Physical Signed PRELIMINARY DRAFT REPORT UNTIL ELECTRONICALLY SIGNED PATIENT: Mick Cottrell MR#: [id number] : 1940 AGE/SEX: 79 / M ADMITTED: 03/19/20 1426 OUTSIDE LOCN: LOCATION: [address] ATTENDING: Jim Marshall MD cc: ; Date of Encounter: 03/19/20 Time of Encounter: 15:03 Assessment and Plan (1) COVID-19 Current visit: Yes Status: Acute Patient was admitted and diagnosed with Covid 19 on 03/05/2020. Stated that he was symptomatic for approximate 5 days prior to admission. Patient was treated at [facility] for Covid 19 pneumonia and was treated with empiric antibiotics, Decadron and transfusion of convalescent plasma, along with Remdesivir. During his stay his pulmonary status improved over the course of time and he currently was weaned on his oxygen to the present 3 L/m by cannula and transferred to [facility] for inpatient rehabilitation. Patient noted to have productive cough with blood-tinged sputum. Respiratory effort appears relaxed. PT/OT evaluation pending. We will continue with his current inhalers which include albuterol, Atrovent and Spiriva. (2) Atrial fibrillation Current visit: Yes Status: Acute Patient was diagnosed with atrial fibrillation during his stay at [facility]. He continues to have irregular heart rate [...] Diabetes mellitus type: type 2 Diabetes mellitus rat exterminator insulin use: without rat exterminator use Diabetes mellitus complication status: without complication [...] inpatient rehab/swing. Patient will transfer laterally to [facility] and eventually convert to swing bed. [...] Present: dry, intact Documented By: Jenaro Morales [employer] INTERN Signed By: 03/19/20 1531 DD/ 1503 Initialized By: [id number] Normal [facility] POC Glucometer Teston 2019 Glucose [Mass/Vol] 244 mg/dL High 70-99 [facility] Comment on above: Performed By: #### P OCGLUCOMETER ####[facility] [address] [place], [place] [id number] Vital Signs Date Time Vital Sign Value Performing Clinician Facility 12-22-2024 12:50-0400 Body height 180.[address] Danielle Hernandez MD Work Phone: [facility] 11-05-2024 11:35-0400 Body height 180.[address] Danielle Hernandez MD Work Phone: [facility] 11-05-2024 11:35-0400 Diastolic blood pressure 77 mm[Hg] Dr. Danielle Hernandez MD Work Phone: [facility] 11-05-2024 11:35-0400 Heart rate 62 /min Dr. Danielle Hernandez MD Work Phone: [facility] 11-05-2024 11:35-0400 Respiratory rate 16 /min Dr. Danielle Hernandez MD Work Phone: [facility] 11-05-2024 11:35-0400 Systolic blood pressure 125 mm[Hg] Dr. Danielle Hernandez MD Work Phone: [facility] 05-29-2024 14:40-0500 Body temperature 97.8 [degF] Dr. Danielle Hernandez MD Work Phone: [facility] 05-29-2024 14:40-0500 Body weight 77.[address] Danielle Hernandez MD Work Phone: [facility] 05-29-2024 14:40-0500 Diastolic blood pressure 65 mm[Hg] Dr. Danielle Hernandez MD Work Phone: [facility] 05-29-2024 14:40-0500 Heart rate 89 /min Dr. Danielle Hernandez MD Work Phone: [facility] 05-29-2024 14:40-0500 Respiratory rate 16 /min Dr. Danielle Hernandez MD Work Phone: [facility] 05-29-2024 14:40-0500 SaO2% (BldA) [Mass fraction] 99 % Dr. Danielle Hernandez MD Work Phone: [facility] 05-29-2024 14:40-0500 Systolic blood pressure 117 mm[Hg] Dr. Danielle Hernandez MD Work Phone: [facility] 05-07-2024 11:49-0500 Body mass index (BMI) [Ratio] 25.1 kg/m2 Dr. Danielle Hernandez MD Work Phone: [facility] 05-07-2024 11:49-0500 Body weight 81.[address] Danielle Hernandez MD Work Phone: [facility] 05-07-2024 11:49-0500 Diastolic blood pressure 78 mm[Hg] Dr. Danielle Hernandez MD Work Phone: [facility] 05-07-2024 11:49-0500 Heart rate 57 /min Dr. Danielle Hernandez MD Work Phone: [facility] 05-07-2024 11:49-0500 Respiratory rate 16 /min Dr. Danielle Hernandez MD Work Phone: [facility] 05-07-2024 11:49-0500 Systolic blood pressure 126 mm[Hg] Dr. Dnaielle Hernandez MD Work Phone: [facility] 03-06-2024 11:25-0500 Body temperature 97.5 [degF] Dr. Danielle Hernandez MD Work Phone: [facility] 03-06-2024 11:25-0500 Diastolic blood pressure 68 mm[Hg] Dr. Danielle Hernandez MD Work Phone: [facility] 03-06-2024 11:25-0500 Heart rate 75 /min Dr. Danielle Hernandez MD Work Phone: [facility] 03-06-2024 11:25-0500 Respiratory rate 16 /min Dr. Danielle Hernandez MD Work Phone: [facility] 03-06-2024 11:25-0500 Systolic blood pressure 118 mm[Hg] Dr. Danielle Hernandez MD Work Phone: [facility] 05-09-2023 20:21-0500 Body temperature 98.2 [degF] Dr. Yadira Desouza Work Phone: [facility] 05-09-2023 20:21-0500 Diastolic blood pressure 88 mm[Hg] Dr. Yadira Desouza Work Phone: [facility] 05-09-2023 20:21-0500 Heart rate 55 /min Dr. Yadira Desouza Work Phone: [facility] 05-09-2023 20:21-0500 Respiratory rate 16 /min Dr. Yadira Desouza Work Phone: [facility] 05-09-2023 20:21-0500 SaO2% (BldA) [Mass fraction] 96 % Dr. Yadira Desouza Work Phone: [facility] 05-09-2023 20:21-0500 Systolic blood pressure 203 mm[Hg] Dr. Yadira Desouza Work Phone: [facility] 05-09-2023 15:31-0500 Body height 180.[address] Yadira Desouza Work Phone: [facility] 05-09-2023 15:31-0500 Body mass index (BMI) [Ratio] 24.6 kg/m2 Dr. Yadira Desouza Work Phone: [facility] 05-09-2023 15:31-0500 Body weight 80.[address] Yadira Desouza Work Phone: [facility] 04-30-2023 13:48-0500 Body height 175.3 cm Sixto Kelly MD Work Phone: [facility] 04-30-2023 13:48-0500 Body weight 85.73 kg Sixto Kelly MD Work Phone: [facility] 04-30-2023 13:48-0500 Diastolic blood pressure 78 mm[Hg] Sixto Kelly MD Work Phone: [facility] 04-30-2023 13:48-0500 Heart rate 54 /min Sixto Kelly MD Work Phone: [facility] 04-30-2023 13:48-0500 Respiratory rate 16 /min Sixto Kelly MD Work Phone: [facility] 04-30-2023 13:48-0500 SaO2% (BldA) [Mass fraction] 95 % Sixto Kelly MD Work Phone: [facility] 04-30-2023 13:48-0500 Systolic blood pressure 171 mm[Hg] Sixto Kelly MD Work Phone: [facility] 04-24-2023 09:41-0500 Body mass index (BMI) [Ratio] 26 kg/m2 Dr. Yadira Desouza Work Phone: [facility] 04-24-2023 09:41-0500 Body weight 84.[address] Yadira Desouza Work Phone: [facility] 04-24-2023 09:41-0500 Diastolic blood pressure 70 mm[Hg] Dr. Yadira Desouza Work Phone: [facility] 04-24-2023 09:41-0500 Heart rate 54 /min Dr. Yadira Desouza Work Phone: [facility] 04-24-2023 09:41-0500 Respiratory rate 16 /min Dr. Yadira Desouza Work Phone: [facility] 04-24-2023 09:41-0500 Systolic blood pressure 134 mm[Hg] Dr. Yadira Desouza Work Phone: [facility] 03-17-2023 19:46-0500 Diastolic blood pressure 72 mm[Hg] [facility] 03-17-2023 19:46-0500 Heart rate 72 /min [facility] 03-17-2023 19:46-0500 Inhaled oxygen flow rate 2 L/min [facility] 03-17-2023 19:46-0500 Respiratory rate 16 /min [facility] 03-17-2023 19:46-0500 SaO2% (BldA) [Mass fraction] 95 % [facility] 03-17-2023 19:46-0500 Systolic blood pressure 134 mm[Hg] [facility] 03-17-2023 16:44-0500 Body mass index (BMI) [Ratio] 26.4 kg/m2 [facility] 03-17-2023 16:44-0500 Body weight 86 kg [facility] 03-17-2023 16:28-0500 Body height 180.34 cm [facility] 03-17-2023 16:28-0500 Body temperature 97.8 [degF] [facility] 11-01-2022 11:06-0400 Body height 182.9 cm Neno Domínguez MD Work Phone: [facility] 11-01-2022 11:06-0400 Body mass index (BMI) [Ratio] 25.63 kg/m2 Neno Domínguez MD Work Phone: [facility] 11-01-2022 11:06-0400 Body temperature 98.1 [degF] Neno Domínguez MD Work Phone: [facility] 11-01-2022 11:06-0400 Body weight 85.73 kg Neno Domínguez MD Work Phone: [facility] 11-01-2022 11:06-0400 Diastolic blood pressure 68 mm[Hg] Neno Domínguez MD Work Phone: [facility] 11-01-2022 11:06-0400 Heart rate 90 /min Neno Domínguez MD Work Phone: [facility] 11-01-2022 11:06-0400 SaO2% (BldA) [Mass fraction] 92 % Neno Domínguez MD Work Phone: [facility] 11-01-2022 11:06-0400 Systolic blood pressure 152 mm[Hg] Neno Domínguez MD Work Phone: [facility] 10-03-2022 10:35-0400 Body height 182.9 cm Jaime Dickey MD Work Phone: [facility] 10-03-2022 10:35-0400 Diastolic blood pressure 92 mm[Hg] Jaime Dickey MD Work Phone: [facility] 10-03-2022 10:35-0400 Systolic blood pressure 140 mm[Hg] Jaime Dickey MD Work Phone: [facility] 09-14-2022 15:00-0400 Diastolic blood pressure 79 mm[Hg] Komal Blackwell MD Work Phone: [facility] 09-14-2022 15:00-0400 Heart rate 81 /min Komal Blackwell MD Work Phone: [facility] 09-14-2022 15:00-0400 Systolic blood pressure 144 mm[Hg] Komal Blackwell MD Work Phone: [facility] 09-14-2022 11:41-0400 Body temperature 98.01 [degF] Komal Blackwell MD Work Phone: [facility] 09-14-2022 11:41-0400 Respiratory rate 16 /min Komal Blackwell MD Work Phone: [facility] 09-14-2022 11:41-0400 SaO2% (BldA) [Mass fraction] 97 % Komal Blackwell MD Work Phone: [facility] 09-12-2022 19:36-0400 Body height 182.9 cm Komal Blackwell MD Work Phone: [facility] 09-12-2022 19:36-0400 Body mass index (BMI) [Ratio] 26.45 kg/m2 Komal Blackwell MD Work Phone: [facility] 09-12-2022 19:36-0400 Body weight 88.45 kg Komal Blackwell MD Work Phone: [facility] 08-13-2022 15:28-0400 Body height 180.3 cm Anshul Mccormick DPM Work Phone: [facility] 08-13-2022 15:28-0400 Body mass index (BMI) [Ratio] 25.94 kg/m2 Anshul Mccormick DPM Work Phone: [facility] 08-13-2022 15:28-0400 Body weight 84.37 kg Anshul Mccormick DPM Work Phone: [facility] 08-13-2022 15:28-0400 Diastolic blood pressure 80 mm[Hg] Anshul Mccormick DPM Work Phone: [facility] 08-13-2022 15:28-0400 Systolic blood pressure 126 mm[Hg] Anshul Mccormick DPM Work Phone: [facility] 07-31-2022 11:04-0400 Body height 182.9 cm Neno Domínguez MD Work Phone: [facility] 07-31-2022 11:04-0400 Body mass index (BMI) [Ratio] 25.63 kg/m2 Neno Domínguez MD Work Phone: [facility] 07-31-2022 11:04-0400 Body temperature 98.2 [degF] Neno Domínguez MD Work Phone: [facility] 07-31-2022 11:04-0400 Body weight 85.73 kg Neno Domínguez MD Work Phone: [facility] 07-31-2022 11:04-0400 Diastolic blood pressure 100 mm[Hg] Neno Domínguez MD Work Phone: [facility] 07-31-2022 11:04-0400 Heart rate 73 /min Neno Domínguez MD Work Phone: [facility] 07-31-2022 11:04-0400 SaO2% (BldA) [Mass fraction] 93 % Neno Domínguez MD Work Phone: [facility] 07-31-2022 11:04-0400 Systolic blood pressure 150 mm[Hg] Neno Domínguez MD Work Phone: [facility] 07-13-2022 13:45-0400 Diastolic blood pressure 73 mm[Hg] Juan Wilson MD Work Phone: [facility] 07-13-2022 13:45-0400 Heart rate 62 /min Juan Wilson MD Work Phone: [facility] 07-13-2022 13:45-0400 SaO2% (BldA) [Mass fraction] 96 % Juan Wilson MD Work Phone: [facility] 07-13-2022 13:45-0400 Systolic blood pressure 144 mm[Hg] Juan Wilson MD Work Phone: [facility] 07-13-2022 13:15-0400 Respiratory rate 16 /min Juan Wilson MD Work Phone: [facility] 07-13-2022 09:28-0400 Body height 182.9 cm Juan Wilson MD Work Phone: [facility] 07-13-2022 09:28-0400 Body mass index (BMI) [Ratio] 24.95 kg/m2 Juan Wilson MD Work Phone: [facility] 07-13-2022 09:28-0400 Body temperature 97.7 [degF] Juan Wilson MD Work Phone: [facility] 07-13-2022 09:28-0400 Body weight 83.46 kg Juan Wilson MD Work Phone: [facility] 06-26-2022 13:18-0400 Body height 182.9 cm Juan Wilson MD Work Phone: [facility] 06-26-2022 13:18-0400 Body mass index (BMI) [Ratio] 24.95 kg/m2 Juan Wilson MD Work Phone: [facility] 06-26-2022 13:18-0400 Body weight 83.46 kg Juan Wilson MD Work Phone: [facility] 06-26-2022 13:18-0400 Diastolic blood pressure 66 mm[Hg] Juan Wilson MD Work Phone: [facility] 06-26-2022 13:18-0400 Heart rate 71 /min Juan Wilson MD Work Phone: [facility] 06-26-2022 13:18-0400 SaO2% (BldA) [Mass fraction] 91 % Juan Wilson MD Work Phone: [facility] 06-26-2022 13:18-0400 Systolic blood pressure 144 mm[Hg] Juan Wilson MD Work Phone: [facility] 05-18-2022 11:24-0500 Body mass index (BMI) [Ratio] 24.81 kg/m2 Juan Wilson MD Work Phone: [facility] 05-18-2022 11:24-0500 Body weight 83.01 kg Juan Wilson MD Work Phone: [facility] 05-18-2022 11:24-0500 Diastolic blood pressure 88 mm[Hg] Juan Wilson MD Work Phone: [facility] 05-18-2022 11:24-0500 Heart rate 84 /min Juan Wilson MD Work Phone: [facility] 05-18-2022 11:24-0500 SaO2% (BldA) [Mass fraction] 96 % Juan Wilson MD Work Phone: [facility] 05-18-2022 11:24-0500 Systolic blood pressure 140 mm[Hg] Juan Wilson MD Work Phone: [facility] 04-28-2022 10:05-0500 Body height 182.9 cm Juan Carlos Hahn MD Work Phone: [facility] 04-28-2022 10:05-0500 Body mass index (BMI) [Ratio] 25.11 kg/m2 Juan Carlos Hahn MD Work Phone: [facility] 04-28-2022 10:05-0500 Body temperature 97.9 [degF] Juan Carlos Hahn MD Work Phone: [facility] 04-28-2022 10:05-0500 Body weight 84.01 kg Juan Carlos Hahn MD Work Phone: [facility] 04-28-2022 10:05-0500 Diastolic blood pressure 92 mm[Hg] Juan Carlos Hahn MD Work Phone: [facility] 04-28-2022 10:05-0500 Heart rate 82 /min Juan Carlos Hahn MD Work Phone: [facility] 04-28-2022 10:05-0500 Respiratory rate 16 /min Juan Carlos Hahn MD Work Phone: [facility] 04-28-2022 10:05-0500 SaO2% (BldA) [Mass fraction] 94 % Juan Carlos Hahn MD Work Phone: [facility] 04-28-2022 10:05-0500 Systolic blood pressure 120 mm[Hg] Juan Carlos Hahn MD Work Phone: [facility] 04-26-2022 11:12-0500 Diastolic blood pressure 83 mm[Hg] Neno Domínguez MD Work Phone: [facility] 04-26-2022 11:12-0500 Heart rate 78 /min Neno Domínguez MD Work Phone: [facility] 04-26-2022 11:12-0500 Respiratory rate 16 /min Neno Domínguez MD Work Phone: [facility] 04-26-2022 11:12-0500 SaO2% (BldA) [Mass fraction] 92 % Neno Domínguez MD Work Phone: [facility] 04-26-2022 11:12-0500 Systolic blood pressure 151 mm[Hg] Neno Domínguez MD Work Phone: [facility] 04-26-2022 10:42-0500 Body temperature 97.7 [degF] Neno Domínguez MD Work Phone: [facility] 04-26-2022 08:00-0500 Body height 182.9 cm Neno Domínguez MD Work Phone: [facility] 04-26-2022 08:00-0500 Body mass index (BMI) [Ratio] 24.82 kg/m2 Neno Domínguez MD Work Phone: [facility] 04-26-2022 08:00-0500 Body weight 83.01 kg Neno Domínguez MD Work Phone: [facility] 04-05-2022 10:54-0500 Body height 182.9 cm Neno Domínguez MD Work Phone: [facility] 04-05-2022 10:54-0500 Body mass index (BMI) [Ratio] 25.23 kg/m2 Neno Domínguez MD Work Phone: [facility] 04-05-2022 10:54-0500 Body temperature 98.01 [degF] Neno Domínguez MD Work Phone: [facility] 04-05-2022 10:54-0500 Body weight 84.37 kg Neno Domínguez MD Work Phone: [facility] 04-05-2022 10:54-0500 Diastolic blood pressure 84 mm[Hg] Neno Domínguez MD Work Phone: [facility] 04-05-2022 10:54-0500 Heart rate 81 /min Neno Domínguez MD Work Phone: [facility] 04-05-2022 10:54-0500 SaO2% (BldA) [Mass fraction] 96 % Neno Domínguez MD Work Phone: [facility] 04-05-2022 10:54-0500 Systolic blood pressure 124 mm[Hg] Neno Domínguez MD Work Phone: [facility] Encounters Encounter Date Encounter Type Care Provider Facility Start: 12-29-2024 End: 12-29-2024 ambulatory Danielle Hernandez Facility:[facility] Start: 12-03-2024 End: 12-03-[address] Danielle Hernandez MD Work Phone: -[facility] Start: 12-03-2024 End: 12-03-2024 Patient encounter procedure Deion RODAS -[facility] Work Phone: Start: 11-26-2024 ambulatory Danielle butler OLS Facility:[facility] Start: 11-26-2024 [facility] Start: 11-05-2024 End: 11-05-2024 Patient encounter procedure Génesis CROSS -[facility] Work Phone: Start: 11-05-2024 End: 11-05-[address] Danielle Hernandez MD Work Phone: -[facility] Start: 10-27-2024 End: 10-27-[address] Danielle Hernandez MD Work Phone: -[facility] Start: 10-27-2024 End: 10-27-[address] Danielle Hernandez MD -[facility] Work Phone: Start: 10-01-2024 End: 10-01-[address] Danielle Hernandez MD Work Phone: -[facility] Start: 10-01-2024 End: 10-01-2024 Patient encounter procedure Deion RODAS -[facility] Work Phone: Start: 08-28-2024 ambulatory Danielle butler OLS Facility:[facility] Start: 08-28-2024 Registered Referred Danielle GuzmanJaye Guzman [facility] Start: 08-26-2024 ambulatory Danielle butler OLS Facility:[facility] Start: 08-26-2024 Registered Referred Danielle GuzmanJaye Guzman [facility] Start: 08-25-2024 End: 08-25-[address] Danielle Hernandez MD Work Phone: -[facility] Start: 08-25-2024 End: 08-25-[address] Danielle Hernandez MD -[facility] Work Phone: Start: 08-10-2024 End: 08-10-[address] Danielle Hernandez MD Work Phone: [facility] Work Phone: Start: 08-10-2024 End: 08-10-2024 Patient encounter procedure Diandra Josénaa JALLOH-Triny -[facility] Work Phone: Start: 08-07-2024 Non-patient / Non-visit Dr. Dov Desouza MD -[facility] Start: 08-07-2024 End: 08-07-[address] Danielle Hernandez MD Work Phone: [facility] Work Phone: Start: 08-07-2024 End: 08-07-[address] Yadira Desouza MD -Cardiovascular Services Work Phone: Start: 08-07-2024 End: 08-07-2024 ambulatory Yadira Desouza Facility:[facility] Start: 07-30-2024 End: 07-30-[address] Danielle Hernandez MD Work Phone: [facility] Work Phone: Start: 07-30-2024 End: 07-30-2024 Patient encounter procedure Deion RODAS -[facility] Work Phone: Start: 07-21-2024 End: 07-21-[address] Danielle Hernandez MD Work Phone: [facility] Work Phone: Start: 07-21-2024 End: 07-21-[address] Hyacinth Quiles DPM -Laboratory, Specimen Work Phone: Start: 07-21-2024 End: 07-21-2024 ambulatory Hyacinth Quiles Facility:[facility] Start: 06-26-2024 End: 06-26-2024 Departed Referred Danielle Hernandez MD -[facility] Start: 06-26-2024 End: 06-26-2024 ambulatory Danielle PLEITEZ Facility:[facility] Start: 06-23-2024 End: 06-23-[address] Danielle Hernandez MD Work Phone: [facility] Work Phone: Start: 06-23-2024 End: 06-23-[address] Danielle Hernandez MD -[facility] Work Phone: Start: 06-15-2024 End: 06-15-[address] Danielle Hernandez MD Work Phone: [facility] Work Phone: Start: 06-15-2024 End: 06-15-[address] Hyacinth Quiles DPM -Laboratory, Specimen Work Phone: Start: 06-15-2024 End: 06-15-2024 ambulatory Hyacinth Quiles Facility:[facility] Start: 06-10-2024 End: 06-10-2024 ambulatory Diandra Abdi NP Facility:[facility] Start: 06-10-2024 End: 06-10-2024 Patient encounter procedure Diandra Abdi [employer]-C -[facility] Work Phone: Start: 06-01-2024 End: 06-01-2024 ambulatory Diandra Abdi [employer] Facility:[facility] Start: 06-01-2024 End: 06-01-2024 Patient encounter procedure Diandra Abdi [employer]-C -[facility] Work Phone: Start: 05-29-2024 Non-patient / Non-visit Dr. Jimy hilton MD -[facility] Start: 05-29-2024 End: 05-29-[address] Danielle Hernandez MD Work Phone: [facility] Work Phone: Start: 05-29-2024 End: 05-29-2024 Patient encounter procedure Agueda RODAS -[facility] Work Phone: Start: 05-29-2024 End: 05-29-2024 ambulatory Agueda Champagne Facility:[facility] Start: 05-25-2024 End: 05-25-2024 ambulatory Diandra Abdi NP Facility:[facility] Start: 05-25-2024 End: 05-25-2024 Patient encounter procedure Diandra Abdi [employer]-C -[facility] Work Phone: Start: 05-14-2024 ambulatory Danielle PLEITEZ Facility:[facility] Start: 05-14-2024 Registered Referred Danielle [facility] Start: 05-10-2024 ambulatory Danielle PLEITEZ Facility:[facility] Start: 05-10-2024 Registered Referred Danielle Ayon Start: 05-07-2024 End: 05-07-[address] Yadira Desouza MD -[facility] Work Phone: Start: 05-07-2024 End: 05-07-2024 ambulatory Yadira Desouza Facility:[facility] Start: 05-05-2024 End: 05-05-2024 ambulatory Danielle Hernandez Facility:[facility] Start: 05-05-2024 End: 05-05-[address] [facility] Work Phone: Start: 05-01-2024 ambulatory Danielle Hernandez Facili ty:[facility] Start: 05-01-2024 End: 05-01-2024 Departed Referred Danielle GuzmanJaye Ayon Start: 05-01-2024 End: 05-01-2024 ambulatory Danielle Hernandez OLS Facility:[facility] Start: 04-02-2024 End: 04-02-2024 ambulatory Deion RODAS Facility:[facility] Start: 04-02-2024 End: 04-02-2024 Patient encounter procedure Deion RODAS -[facility] Work Phone: Start: 03-31-2024 End: 03-31-2024 [facility] Start: 03-31-2024 End: 03-31-2024 ambulatory Efewongbe Oleandrese OLS Facility:[facility] Start: 03-30-2024 End: 03-30-2024 Departed Referred Diandra CROSS -[facility] Start: 03-30-2024 End: 03-30-2024 ambulatory Efewongbe Oleghe Facility:[facility] Start: 03-10-2024 End: 03-10-2024 ambulatory Efewongbe Oleghe Facility:[facility] Start: 03-10-2024 End: 03-10-[address] Danielle Hernandez MD -[facility] Work Phone: Start: 03-06-2024 End: 03-06-2024 Patient encounter procedure Agueda RODAS -[facility] Work Phone: Start: 03-06-2024 End: 03-06-2024 ambulatory Efewongbe Oleghe Facility:[facility] Start: 02-28-2024 ambulatory Efewongbe Oleghe Facili ty:[facility] Start: 02-28-2024 Registered [facility] Start: 02-05-2024 End: 02-05-2024 ambulatory Efewongbe Oleghe Facility:[facility] Start: 08-20-2023 [facility] Start: 07-29-2023 [facility] Start: 07-26-2023 [facility] Start: 07-01-[address] Lincoln Hernandez Work Phone: [facility] Start: 06-28-2023 End: 06-28-[address] Danielle Hernandez Work Phone: [facility] Work Phone: Start: 06-28-2023 End: 06-28-[address] Danielle Hernandez Work Phone: [facility] Start: 06-26-2023 End: 06-26-[address] Danielle Hernandez Work Phone: [facility] Work Phone: Start: 06-26-2023 End: 06-26-[address] Danielle Hernandez Work Phone: [facility] Start: 06-06-2023 [facility] Start: 05-30-2023 End: 05-30-[address] Danielle eHrnandez Work Phone: [facility] Work Phone: Start: 05-30-2023 End: 05-30-[address] Danielle Hernandez Work Phone: [facility] Work Phone: Start: 05-30-2023 End: 05-30-[address] Danielle Hernandez Work Phone: [facility]-Pulmonary Services/Neurology Work Phone: Start: 05-24-2023 End: 05-24-[address] Danielle Hernandez Work Phone: [facility] Work Phone: Start: 05-24-2023 End: 05-24-[address] Danielle Hernandez Work Phone: [facility] Start: 05-17-2023 End: 05-17-[address] Yadira Desouza Work Phone: [facility] Work Phone: Start: 05-17-2023 End: 05-17-[address] Yadira Desouza Work Phone: [facility] Start: 05-15-2023 End: 05-15-[address] Danielle Hernandez Work Phone: [facility] Work Phone: Start: 05-15-2023 End: 05-15-[address] Danielle Hernandez Work Phone: [facility] Start: 05-15-[address] Yadira Desouza Work Phone: [facility] Start: 05-09-2023 End: 05-09-2023 Emergency department patient visit Dr. Yadira Desouza Work Phone: [facility]-Emergency Department Work Phone: Start: 05-09-2023 End: 05-09-[address] Danielle Hernandez Work Phone: [facility] Work Phone: Start: 05-07-2023 End: 05-07-[address] Danielle Hernandez Work Phone: [facility] Work Phone: Start: 04-30-2023 End: 04-30-2023 ambulatory [facility] Facility:[facility] Start: 04-30-2023 End: 04-30-2023 Patient encounter procedure Sixto Kelly MD Work Phone: [place] Comment on above: Paroxysmal atrial fi brillation (HCC) (Primary Dx); SDH (subdural hematoma) (HCC) Start: 04-30-2023 End: 04-30-2023 Subsequent hospital visit by physician [facility] [place] [facility] [employer] [employer] Comment on above: Subdural hematoma (H CC) [S06.5XAA] Start: 04-25-2023 Telephone encounter Sixto Kelly MD Work Phone: [place] Start: 04-25-2023 End: 04-25-[address] Danielle Hernandez Work Phone: [facility] Work Phone: Start: 04-25-2023 End: 04-25-[address] Danielle Hernandez Work Phone: [facility] Start: 04-25-[address] Yadria Desouza Work Phone: [facility] Start: 04-24-2023 End: 04-24-[address] Yadira Desouza Work Phone: [facility] Work Phone: Start: 04-11-2023 End: 04-11-[address] Yadira Desouza Work Phone: [facility] Work Phone: Start: 04-11-2023 End: 04-11-[address] Yadira Desouza Work Phone: [facility] Start: 04-11-[address] Yadira Desouza Work Phone: [facility] Start: 04-04-[address] Yadira Desouza Work Phone: [facility] Start: 04-01-[address] Yadira Desouza Work Phone: [facility] Start: 03-29-[address] Yadira Desouza Work Phone: [facility] Start: 03-26-2023 End: 03-26-[address] Danielle Hernandez Work Phone: [facility] Work Phone: Start: 03-17-2023 Emergency department patient visit [facility] Facility:[facility] Start: 03-17-2023 End: 03-17-2023 Emergency department patient visit [facility]Emergency Department Work Phone: Start: 03-05-2023 ambulatory [facility] Start: 02-27-2023 ambulatory GRACE MOJICA-CALLI [facility] Start: 01-29-2023 ambulatory GRACE GTZ [facility] Start: 01-16-2023 ambulatory GRACE YUNIOR-CALLI [facility] Start: 01-04-2023 ambulatory GRACE MOJICA-CALLI [facility] Start: 01-03-2023 End: 01-04-2023 ambulatory GRACE YUNIOR-CALLI [facility] Start: 12-18-2022 ambulatory GRACE MOJICA-CALLI [facility] Start: 12-13-2022 ambulatory GRACE MOJICA-CALLI [facility] Start: 12-13-2022 End: 12-13-2022 Subsequent hospital visit by physician Grace Gtz MD Work Phone: [facility] Comment on above: Arrived Start: 12-11-2022 ambulatory GRACE MOJICA-CALLI [facility] Start: 12-07-2022 ambulatory GRACE GTZ [facility] Start: 12-04-2022 ambulatory GRACE GTZ Facility:[facility] Start: 11-20-2022 ambulatory GRACE YUNIOR-CALLI Facility:[facility] Start: 11-13-2022 ambulatory GRACE YUNIOR-CALLI Facility:[facility] Start: 11-06-2022 End: 11-06-2022 Subsequent hospital visit by physician Grace Gtz MD Work Phone: [facility] Comment on above: Arrived Start: 11-06-2022 ambulatory GRACE YUNIOR-CALLI Facility:[facility] Start: 11-06-2022 ambulatory GRACE YUNIOR-CALLI Facility:[facility] Start: 11-01-2022 ambulatory GRACE YUNIOR-CALLI Facility:[facility] Start: 11-01-2022 End: 11-01-2022 Patient encounter procedure Neno Domínguez MD Work Phone: [facility] Comment on above: Personal history of malignant neoplasm of bladder (Primary Dx) Start: 10-31-2022 ambulatory GRACE YUNIOR-CALLI Facility:[facility] Start: 10-31-2022 End: 10-31-2022 Subsequent hospital visit by physician Grace Gtz MD Work Phone: [facility] Comment on above: Arrived Start: 10-30-2022 ambulatory GRACE YUNIOR-CALLI Facility:[facility] Start: 10-23-2022 ambulatory GRACE YUNIOR-CALLI Facility:[facility] Start: 10-16-2022 ambulatory GRACE YUNIOR-CALLI Facility:[facility] Start: 10-03-2022 ambulatory JAIME DICKEY [facility] Start: 10-03-2022 End: 10-03-2022 Subsequent hospital visit by physician Jaime Dickey MD Work Phone: [facility] Comment on above: Arrived Start: 10-03-2022 End: 10-03-2022 Postop follow up visit related to original px Jaime Dickey MD Work Phone: [facility] Comment on above: Pain of right hip (P rimary Dx); Closed fracture of multiple pubic rami, right, with routine healing, subsequent encounter Start: 09-12-2022 End: 09-14-2022 ambulatory GRACE YUNIOR-CALLI [facility] Start: 09-12-2022 End: 09-14-2022 Emergency department patient visit Komal Blackwell MD Work Phone: [facility] Comment on above: Fall Start: 09-10-2022 ambulatory GRACE YUNIOR-CALLI Facility:[facility] Start: 09-06-2022 ambulatory GRACE YUNIOR-CALLI Facility:[facility] Start: 09-03-2022 ambulatory GRACE YUNIOR-CALLI [facility] Start: 08-31-2022 ambulatory GRACE YUNIOR-CALLI [facility] Start: 08-28-2022 ambulatory GRACE YUNIOR-CALLI Facility:[facility] Start: 08-28-2022 ambulatory GRACE YUNIOR-CALLI Facility:[facility] Start: 08-23-2022 ambulatory GRACE YUNIOR-CALLI Facility:[facility] Start: 08-13-2022 ambulatory GRACE YUNIOR-CALLI [facility] Start: 08-13-2022 End: 08-13-2022 Patient encounter procedure Anshul Mccormick DPM Work Phone: [facility] Comment on above: Dermatophytosis of n [...] encounter procedure Neno Domínguez MD Work Phone: [facility] Comment on above: Personal history of malignant neoplasm of bladder (Primary Dx) Start: 07-24-2022 ambulatory GRACE MOJICA-CALLI Facility[facility] Start: 07-13-2022 End: 07-13-2022 ambulatory GRACE MOJICA-CALLI Facility:[facility] Start: 07-13-2022 End: 07-13-2022 Subsequent hospital visit by physician Juan Wilson MD Work Phone: [facility] Comment on above: Anginal equivalent Start: 07-05-2022 ambulatory GRACE MOJICA-CALLI [facility] Start: 06-26-2022 ambulatory SELF SELF [facility] Start: 06-26-2022 End: 06-26-2022 Office outpatient visit 25 minutes Juan Wilson MD Work Phone: [facility] Comment on above: Anginal equivalent ( Primary Dx); Equivalent angina; Primary hypertension; S/P AVR (aortic valve replacement) Start: 06-26-2022 ambulatory GRACE MOJICA-CALLI Facility:[facility] Start: 06-14-2022 ambulatory GRACE MOJICA-CALLI Facility:[facility] Start: 06-14-2022 End: 06-14-2022 Subsequent hospital visit by physician Juan Wilson MD Work Phone: [facility] Comment on above: Arrived Start: 06-05-2022 ambulatory GRACE YUNIOR-CALLI Facility:[facility] Start: 05-22-2022 ambulatory GRACE MOJICA-CALLI Facility:[facility] Start: 05-18-2022 ambulatory SELF SELF [facility] Start: 05-18-2022 End: 05-18-2022 Office outpatient visit 25 minutes Juan Wilson MD Work Phone: [facility] Comment on above: Bilateral carotid br uits (Primary Dx); Dyspnea on exertion; Primary hypertension; Cerebrovascular accident (CVA), unspecified mechanism; Mixed hyperlipidemia; S/P AVR (aortic valve replacement); Equivalent angina Start: 05-15-2022 ambulatory GRACE GTZ Facility:[facility] Start: 05-08-2022 ambulatory GRACE GTZ Facility:[facility] Start: 05-04-2022 ambulatory GRACE GTZ [facility] Start: 05-02-2022 ambulatory GRACE GTZ Facility:[facility] Start: 04-28-2022 End: 04-28-2022 Emergency department patient visit GRACE GTZ Facility:[facility] Start: 04-27-2022 ambulatory ELLY DoverClarence [facility] Start: 04-26-2022 End: 04-27-2022 ambulatory GRACE GTZ Facility:[facility] Start: 04-26-2022 End: 04-26-2022 Subsequent hospital visit by physician Neno Domínguez MD Work Phone: [facility] Comment on above: 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 Start: 04-23-2022 ambulatory GRACE GTZ Facility:[facility] Start: 04-19-2022 ambulatory GRACE GTZ Facility:[facility] Start: 04-16-2022 ambulatory SELF SELF Facility:[facility] Start: 04-16-2022 Encounter for other preprocedural examination SELF SELF Facility:[facility] Start: 04-10-2022 ambulatory GRACE GTZ Facility:[facility] Start: 04-05-2022 ambulatory GRACE GTZ Facility:[facility] Start: 04-05-2022 End: 04-05-2022 Patient encounter procedure Neno Domínguez MD Work Phone: [facility] Comment on above: Urinary urgency (Chela jessica Dx); 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 Start: 04-03-2022 ambulatory GRACE GTZ [facility] Start: 03-27-2022 ambulatory GRACE GTZ [facility] Start: 03-20-2022 ambulatory GRACE GTZ [facility] Start: 01-16-2022 End: 01-16-2022 Discharged Recurring Grace Gtz Work Phone: [facility] Start: 01-09-2022 ambulatory Grace Gtz Facility:[facility] Start: 10-05-2021 End: 10-05-2021 ambulatory Neno Domínguez Facility:[facility] Start: 10-05-2021 End: 10-05-2021 Patient encounter procedure Grace Gtz Work Phone: [facility] Start: 08-01-2021 End: 08-01-2021 ambulatory Grace Gtz Facility:[facility] Start: 05-04-2021 End: 05-04-2021 Emergency department patient visit Grace Gtz Facility:[facility] Start: 04-27-2021 End: 04-27-2021 ambulatory Juan Wilson Facility:[facility] Start: 03-28-2021 End: 03-28-2021 ambulatory Juanalice Wilson Facility:[facility] Start: 03-16-2021 End: 03-16-2021 ambulatory Neno Domínguez Facility:[facility] Start: 02-21-2021 End: 02-21-2021 ambulatory Mary Kay Ty Facility:[facility] Start: 02-14-2021 End: 02-14-2021 ambulatory Neno Domínguez Facility:[facility] Start: 01-30-2021 End: 01-30-2021 ambulatory Mary Kay Ty Facility:[facility] Start: 01-22-2021 End: 10-31-2021 Evaluation and management of inpatient Grace Gtz Facility:[facility] Procedures Date Procedure Procedure Detail Performing Clinician [...] Work Phone: Start: 03-18-2023 Antibody screen TOÑO CROWE Comment on above: Order Comment: Speci men Type: BLOOD SPECIMENOrdering Facility: [facility] Address: [address] [place] [address] Performed By: #### T SCR ####[facility] BLOOD BANKCLIA [id number] [place] [address] [place] Start: 03-17-2023 CT cervical [...] on above: Performed By: #### C UBLD ####[facility] [address] [place] [address] Start: 03-22-2020 Pt evaluation Start: 03-22-2020 Ot evaluation Start: 03-21-2020 Pt evaluation Plan of Treatment Date Care Activity Detail Author Start: 03-21-2026 Diabetes Screening Diabetes Screening [facility] Start: 05-09-2023 [facility] Start: 04-28-2023 Potassium [Moles/volume] in Serum or Plasma POTASSIUM [facility] Start: 03-25-2023 Advance Directive Discussion Advance Directive Discussion [facility] Start: 03-25-2023 Depression Assessment Depression Assessment [facility] Start: 03-17-2023 Aspiration precautions [facility] Start: 03-17-2023 [facility] Start: 02-08-2023 End: 02-08-2023 Patient encounter procedure 02/08/2023 11:00 AM EST Office Visit [facility] [address] [place] [phone] Neno Domínguez MD [address] [place] [phone] [facility] Start: 12-18-2022 End: 12-18-2022 Anticoagulant drug monitoring 12/18/2022 10:15 AM EDT Anticoagulation Monitoring [facility] Crowpauline Lockhart [address] [place] [address] [facility] Candace Lockhart Start: 11-23-2022 Influenza vaccination INFLUENZA VACCINE (#1) [facility] Start: 11-13-2022 End: 11-13-2022 Anticoagulant drug monitoring 11/13/2022 10:30 AM EDT Anticoagulation Monitoring [facility] Candace Lockhart [address] [place] [address] [facility] Candace Lockhart Start: 11-06-2022 End: 11-06-2022 Anticoagulant drug monitoring 11/06/2022 10:45 AM EDT Antico[facility] [address] [place] [address] Grace Gtz MD [address] [place] [address] [facility] Candace Lockhart Start: 11-01-2022 End: 11-01-2022 Patient encounter procedure [facility] Start: 10-04-2022 End: 10-04-2022 ambulatory 10/04/2022 2:45 PM EDT Rehab Services Visit [facility] [address] [place] [address] Grace Gtz MD [address] [place] [address] John Chauhan, PT [address] [place] [address] [facility] [address] Start: 10-03-2022 End: 10-03-2023 XR Hip - right 2 Views [facility] Comment on above: Expected: 10/03/2022, Expires: 1 Occurrences starti ng 10/03/2022 until 10/03/2022 Start: 10-02-2022 End: 10-02-2022 ambulatory 10/02/2022 1:45 PM EDT Rehab Services Visit [facility] [address] [place] [address] Grace Gtz MD [address] [place] [address] Eligio Rajan, MILLER APPRENTICE [address] [place] [address] [facility] [address] Start: 10-02-2022 End: 10-02-2022 Anticoagulant drug monitoring 10/02/2022 9:45 AM EDT Anticoagulation Monitoring [facility] Candace Lock[address] [place] [address] [facility] Candace Lockhart Start: 09-28-2022 End: 09-28-2022 Patient encounter procedure [facility] Start: 09-27-2022 End: 09-27-2022 ambulatory 09/27/2022 2:00 PM EDT Rehab Services Visit [facility] [address] [place] [address] Grace Gtz MD [address] [place] [address] John Chauhan, PT [address] [place] [address] [facility] [address] Start: 09-24-2022 End: 09-24-2022 ambulatory 09/24/2022 3:00 PM EDT Rehab Services Visit [facility] [address] [place] [address] Grace Gtz MD [address] [place] [address] John Chauhan, PT [address] [place] [address] [facility] [address] Start: 09-20-2022 End: 09-20-2022 ambulatory 09/20/2022 2:15 PM EDT Rehab Services Visit [facility] [address] [place] [address] Grace Gtz MD [address] [place] [address] Eligio Rajan M[employer]ER APPRENTICE [address] [place] [address] [facility] [address] Start: 09-18-2022 End: 09-18-2022 ambulatory 09/18/2022 4:00 PM EDT Rehab Services Visit [facility] [address] [place] [address] Grace Gtz MD [address] [place] [address] Eligio Rajan MILLER APPRENTICE [address] [place] [address] [facility] [address] Start: 08-28-2022 End: 08-28-2022 ambulatory 08/28/2022 Rehab Services Visit Physical Therapy Grace Gtz MD [address] [place] [address] Eligio Rajan, MILLER APPRENTICE [address] [place] [address] [facility] [address] Start: 08-28-2022 End: 08-28-2022 Anticoagulant drug monitoring 08/28/2022 Anticoagulation Monitoring [facility] Start: 08-07-2022 End: 08-07-2022 Anticoagulant drug monitoring 08/07/2022 Anticoagulation Monitoring [facility] Start: 07-31-2022 End: 07-31-2022 Patient encounter procedure 07/31/2022 Office Visit Urology Neno Domínguez MD [address] [place] [phone] [facility] Start: 07-24-2022 End: 07-24-2022 Patient encounter procedure 07/24/2022 Office Visit Cardiovascular Medicine Juan Wilson MD [address] [place] [address] [facility] Start: 07-24-2022 End: 07-24-2022 Anticoagulant drug monitoring 07/24/2022 Anticoagulation Monitoring Pharmacy [facility] [address] Start: 06-26-2022 End: 06-27-2023 Basic metabolic 2000 panel - Serum or Plasma BASIC METABOLIC PANEL Lab Routine Anginal equivalent Equivalent angina Primary hypertension S/P AVR (aortic valve replacement) Expected: 06/26/2022, Expires: 06/27/2023 [facility] Comment on above: Expected: 06/26/2022, Expires: 4 Start: 06-26-2022 End: 06-27-2023 CBC AND ELECTRONIC DIFF CBC AND ELECTRONIC DIFF Lab Routine Anginal equivalent Equivalent angina Primary hypertension S/P AVR (aortic valve replacement) Expected: 06/26/2022, Expires: 06/27/2023 [facility] Comment on above: Expected: 06/26/2022, Expires: 4 Start: 06-26-2022 End: 06-27-2023 PROTIME-INR PROTIME-INR Lab Routine Anginal equivalent Equivalent angina Primary hypertension S/P AVR (aortic valve replacement) Expected: 06/26/2022, Expires: 06/27/2023 [facility] Comment on above: Expected: 06/26/2022, Expires: Start: 06-26-2022 End: 06-26-2022 Patient encounter procedure 06/26/2022 Office Visit Cardiovascular Medicine Juan Wilson MD [address] [place] [address] [facility] Start: 06-26-2022 End: 06-26-2022 Anticoagulant drug monitoring 06/26/2022 Anticoagulation Monitoring Pharmacy [facility] [address] Start: 05-22-2022 End: 05-22-2022 Anticoagulant drug monitoring 05/22/2022 Anticoagulation Monitoring Pharmacy [facility] [address] Lockhart Start: 05-02-2022 End: 05-02-2022 Anticoagulant drug monitoring 05/02/2022 Anticoagulation Monitoring Pharmacy [facility] Candace Lock[address] Start: 04-29-2022 COVID-19 VACCINE (3 - Pfizer series) COVID-19 VACCINE (3 - Pfizer series) [facility] Start: 04-26-2022 End: 04-26-2022 Admission to same day surgery center 04/26/2022 Surgery Multispecialty Neno Domínguez MD [address] [place] [phone] CYSTOURETHROSCOPY WITH FULGURATION/RESECTION LESION BLADDER (TURB) [facility] Comment on above: CYSTOURETHROSCOPY WITH FULGURATION/RESEC TION LESION BLADDER (TURB) Start: 04-26-2022 End: 04-26-2022 Cystourethroscopy w/dest &/rmvl med bladder shaista CYSTOURETHROSCOPY W/ FULGURATION/RESECTION LESION BLADDER (TURB) 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 04/26/2022 9:00 AM EST [facility] Start: 04-26-2022 Subsequent hospital visit by physician 04/26/2022 Hospital Encounter Multispecialty Neno Domínguez MD [address] [place] [phone] 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 [facility] Comment on above: Malignant neoplasm of anterior wall of u rinary bladder Start: 04-16-2022 End: 04-16-2022 ambulatory 04/16/2022 Telemed Clin Support Multispecialty [facility] Pre Admission Testing Start: 04-10-2022 End: 04-10-2022 Anticoagulant drug monitoring 04/10/2022 Anticoagulation Monitoring Pharmacy [facility] [address] Lock[address] Start: 02-21-2022 COVID-19 VACCINE (3 - Booster for Pfizer series) COVID-19 VACCINE (3 - Booster for Pfizer series) [facility] Start: 08-07-2019 Potassium [Moles/volume] in Serum or Plasma POTASSIUM [facility] Start: 02-07-2011 Shingrix Vaccine (2 of 3) Shingrix Vaccine (2 of 3) [facility] Start: 02-07-2011 Zoster vaccine hzv live for subcutaneous use ZOSTER (SHINGLES) VACCINE (2 of 3) [facility] Start: 2000 RSV Vaccine (1 - 1-dose 60+ series) RSV Vaccine (1 - 1-dose 60+ series) [facility] Start: 1985 Screening for malignant neoplasm of colon COLORECTAL CANCER SCREENING DISCUSSION [facility] Start: 09-16-1959 Third diphtheria, tetanus and acellular pertussis (DTaP) vaccination TDAP (ADULT) [facility] Start: 09-16-1959 Urine microalbumin profile DTaP,Tdap,Td Vaccine (1 - Tdap) [facility] Start: 1940 Tetanus vaccination TETANUS [facility] Basic metabolic 2008 panel with ionized calcium - Serum or Plasma [facility] Bilirubin measuremen t, urine [facility] End: 06-29-2022 Cardiac catheterization study [facility] Comment on above: One Time for 1 [...] Subdural hematoma (HCC) 04/30/2023 1:52 PM EST [facility] Work Phone: End: 12-13-2022 CT Chest WO contrast [facility] Work Phone: Comment on above: 1 Occurrences starting 12/13/2022 until 12/13/2022 Ecg routine ecg w/le ast 12 lds w/i&r WV ELECTROCARDIOGRAM, COMPLETE WV - OFFICE PERFORMED Routine Anginal equivalent Ordered: 06/26/2022 [facility] Comment on above: Ordered: 06/26/2022 Echocardiography ECHOCARDIOGRAM Echocardiography Routine Dyspnea on exertion S/P AVR (aortic valve replacement) Ordered: 05/18/2022 [facility] Comment on above: Ordered: 05/18/2022 Hemoglobin [Presence ] in Urine [facility] Measurement of keton es in urine using dipstick [facility] Patient Education Bone Contusion ED Back Contusion ED Bruise, Rib ED Fall Prevention [facility] Work Phone: Patient referral [facility] Work Phone: pH of Urine [facility] POCT URINE DIPSTICK AUTOMATED POCT URINE DIPSTICK AUTOMATED Point of Care Testing Routine Personal history of malignant neoplasm of bladder 11/01/2022 11:36 AM EDT [facility] POCT URINE DIPSTICK AUTOMATED POCT URINE DIPSTICK AUTOMATED Point of Care Testing Routine Urinary urgency 04/05/2022 11:18 AM EST [facility] Specific gravity of Urine [facility] SPECT Heart perfusio n at rest and W stress and W radionuclide IV NUC MYOCARD PERF STRESS [facility] Cardiac Nuclear Medicine Routine Dyspnea on exertion Ordered: 05/18/2022 [facility] Comment on above: Ordered: 05/18/2022 SURG PATH [facility] Comment on above: Release Upon Ordering for 1 Occurrences starting 04/26/2022 Urine dipstick for glucose [facility] Urine dipstick for leukocyte esterase [facility] Urine dipstick for nitrite [facility] Urine dipstick for protein [facility] Urine examination [facility] Urobilinogen [Presen ce] in Urine [facility] US Heart [facility] US.doppler Carotid arteries - bilateral [facility] Comment on above: Ordered: 05/18/2022 End: 11-06-2022 XR Chest PA and Lateral [facility] Work Phone: Comment on above: 1 Occurrences starting 11/06/2022 until 11/06/2022 End: 10-31-2022 XR Knee - right 2 Views [facility] Work Phone: Comment on above: 1 Occurrences starting 10/31/2022 until 10/31/2022 [facility] Immunizations Immunization Date Immunization Notes Care Provider Valeria kent 12-27-2021 influenza virus vaccine, unspecified formulation Jaime Dickey MD Work Phone: [facility] 01-22-2021 influenza, injectabl e, quadrivalent, preservative free Grace AngeloZion Work Phone: [facility] Work Phone: 12-13-2010 zoster vaccine, unspecified formulation Neno Domínguez MD Work Phone: [facility] Payers Date Payer Category Payer Medicare [id number] 01-18-2021 Medicare [id number] 08-09-2020 Self-pay 03-25-2012 Private Health Insurance [id number] 08-23-2005 Medicare [id number] 1940 Unknown [id number] 2.16. 840.1.537380.3.579.2.903 1940 Unknown [id number] 2.16.8 40.1.013908.3.579.2.1247 1940 Unknown [id number] 2.16.8 40.1.387377.3.579.2.8 1940 Unknown [id number] 2.16.8 40.1.437463.3.579.2.1247 1940 Unknown [id number] 2.16.8 40.1.763524.3.579.2.1247 1940 Unknown [id number] 2.16.8 40.1.106659.3.579.2.124 1940 Unknown [id number] 2.16.8 40.1.421274.3.579.2.1247 1940 Unknown [id number] 2.16.8 40.1.415413.3.579.2.124 1940 Unknown [id number] 2.16.8 40.1.665007.3.579.2.1248 194 Unknown [id number] 2.16.8 40.1.239058.3.579.2.1248 194 Unknown [id number] 2.16.8 40.1.695540.3.579.2.1248 194 Unknown [id number] 2.16.8 40.1.624124.3.579.2.8 194 Unknown [id number] 2.16.8 40.1.604365.3.579.2.1248 194 Unknown [id number] 2.16.8 40.1.417603.3.579.2.8 194 Unknown [id number] 2.16.8 40.1.171105.3.579.2.8 194 Unknown [id number] 2.16.8 40.1.885636.3.579.2.8 194 Unknown [id number] 2.16.8 40.1.865614.3.579.2.8 194 Unknown [id number] 2.16.8 40.1.338853.3.579.2.8 194 Unknown [id number] 2.16.8 40.1.048695.3.579.2.8 194 Unknown [id number] 2.16.8 40.1.925127.3.579.2.8 194 Unknown [id number] 2.16.8 40.1.517050.3.579.2.8 194 Unknown [id number] 2.16.8 40.1.040934.3.579.2.8 194 Unknown [id number] 2.16.8 40.1.310616.3.579.2.8 194 Unknown [id number] 2.16.8 40.1.223967.3.579.2.1247194 Unknown [id number] 2.16.8 40.1.867251.3.579.2.8 1940 Unknown [id number] 2.16.8 40.1.568294.3.579.2.8 1940 Unknown [id number] 2.16.8 40.1.703225.3.579.2.8 1940 Unknown [id number] 2.16.8 40.1.787486.3.579.2.8 1940 Unknown [id number] 2.16.8 40.1.542002.3.579.2.1247 1940 Unknown [id number] 2.16.8 40.1.002652.3.579.2.1247 1940 Unknown [id number] 2.16.8 40.1.440157.3.579.2.1247 1940 Unknown [id number] 2.16.8 40.1.735498.3.579.2.1247 1940 Unknown [id number] 2.16.8 40.1.475034.3.579.2.8 1940 Unknown [id number] 2.16.8 40.1.486654.3.579.2.8 1940 Unknown [id number] 2.16.8 40.1.686704.3.579.2.8 1940 Unknown [id number] 2.16.8 40.1.883016.3.579.2.1247 1940 Unknown [id number] 2.16.84 0.1.324519.3.579.2.1247 1940 Unknown [id number] 2.16.84 0.1.941472.3.579.2.1247 1940 Unknown [id number] 2.16.84 0.1.946770.3.579.2.1247 1940 Unknown [id number] 2.16.84 0.1.984295.3.579.2.1248 -24-194 Unknown [id number] 2.16.84 0.1.234005.3.579.2.8 -194 Unknown [id number] 2.16.84 0.1.833077.3.579.2.1248 --194 Unknown [id number] 2.16.84 0.1.222849.3.579.2.8 194 Unknown [id number] 2.16.84 0.1.172589.3.579.2.1248 194 Unknown [id number] 2.16.84 0.1.091466.3.579.2.8 194 Unknown [id number] 2.16.84 0.1.574774.3.579.2.8 194 Unknown [id number] 2.16.84 0.1.817947.3.579.2.8 194 Unknown [id number] 2.16.84 0.1.224418.3.579.2.8 194 Unknown [id number] 2.16.84 0.1.793714.3.579.2.8 194 Unknown [id number] 2.16.84 0.1.510075.3.579.2.8 194 Unknown [id number] 2.16.84 0.1.938431.3.579.2.8 194 Unknown [id number] 2.16.84 0.1.300462.3.579.2.8 194 Unknown [id number] 2.16.84 0.1.217426.3.579.2.8 194 Unknown [id number] 2.16.84 0.1.557807.3.579.2.8 194 Unknown [id number] 2.16.84 0.1.108567.3.579.2.1247 1940 Unknown [id number] 2.16.84 0.1.239485.3.579.2.1248 194 Unknown [id number] 2.16.84 0.1.818199.3.579.2.1248 194 Unknown [id number] 2.16.84 0.1.377558.3.579.2.1248 194 Unknown [id number] 2.16.84 0.1.758678.3.579.2.1248 1940 Unknown [id number] 2.16.84 0.1.497306.3.579.2.1248 1940 Unknown [id number] 2.16.84 0.1.529123.3.579.2.1248 1940 Unknown [id number] 2.16.84 0.1.121095.3.579.2.1248 1940 Unknown [id number] 2.16.8 40.1.672749.3.579.2.1260 194 Unknown [id number] 2.16.8 40.1.184603.3.579.2.1260 194 Unknown [id number] 2.16.8 40.1.552384.3.579.2.1260 194 Unknown [id number] 2.16.8 40.1.525020.3.579.2.1260 194 Unknown [id number] 2.16.84 0.1.224409.3.579.2.1260 194 Unknown [id number] 2.16.84 0.1.503277.3.579.2.1260 194 Unknown [id number] 2.16.84 0.1.086157.3.579.2.1260 Unknown [id number] 2.16. 840.1.309462.3.579.2.373 Unknown [id number] 2.16. 840.1.706485.3.579.2.373 Unknown [id number] 2.16. 840.1.967116.3.579.2.373 Unknown [id number] 2.16. 840.1.330085.3.579.2.373 Unknown [id number] 2.16. 840.1.684060.3.579.2.373 Unknown [id number] 2.16. 840.1.764984.3.579.2.373 Unknown [id number] 2.16. 840.1.015074.3.579.2.373 Unknown [id number] 2.16. 840.1.911242.3.579.2.373 Unknown [id number] 2.16. 840.1.604530.3.579.2.373 Unknown [id number] 2.16. 840.1.680270.3.579.2.373 Unknown [id number] 2.16. 840.1.629891.3.579.2.373 Unknown [id number] Unknown [id number] Unknown [id number] Unknown [id number] 2.16.8 40.1.359512.3.579.2.462 Unknown [id number] 2.16.8 40.1.229139.3.579.2.462 Unknown [id number] 2.16.8 40.1.807572.3.579.2.462 Unknown [id number] 2.16.8 40.1.407009.3.579.2.462 Unknown [id number] 2.16.8 40.1.825491.3.579.2.462 Unknown [id number] 2.16.8 40.1.551880.3.579.2.462 Unknown [id number] 2.16.8 40.1.020231.3.579.2.462 Unknown [id number] 2.16.8 40.1.258439.3.579.2.462 Unknown [id number] 2.16.8 40.1.873665.3.579.2.462 Unknown [id number] 2.16.8 40.1.446812.3.579.2.462 Unknown [id number] 2.16.8 40.1.271788.3.579.2.462 Unknown [id number] 2.16.8 40.1.121654.3.579.2.462 Unknown [id number] 2.16.8 40.1.825476.3.579.2.462 Unknown [id number] 2.16.8 40.1.699813.3.579.2.462 Unknown [id number] 2.16.8 40.1.922045.3.579.2.462 Unknown [id number] 2.16.8 40.1.690608.3.579.2.462 Unknown [id number] 2.16.8 40.1.780729.3.579.2.462 Unknown [id number] 2.16.8 40.1.619740.3.579.2.462 Unknown [id number] 2.16.8 40.1.704265.3.579.2.462 Unknown [id number] 2.16.8 40.1.829321.3.579.2.462 Unknown [id number] 2.16.8 40.1.948569.3.579.2.462 Unknown [id number] 2.16.8 40.1.814015.3.579.2.462 Unknown [id number] 2.16.8 40.1.029959.3.579.2.462 Unknown [id number] 2.16.8 40.1.095723.3.579.2.462 Unknown [id number] 2.16.8 40.1.752302.3.579.2.462 Unknown [id number] 2.16.8 40.1.619330.3.579.2.462 Unknown [id number] 2.16.8 40.1.840443.3.579.2.462 Unknown [id number] 2.16.8 40.1.919114.3.579.2.462 Unknown [id number] 2.16.8 40.1.437433.3.579.2.462 Unknown [id number] 2.16.8 40.1.850415.3.579.2.462 Unknown [id number] 2.16.8 40.1.374581.3.579.2.462 Unknown [id number] 2.16.8 40.1.853164.3.579.2.462 Unknown [id number] 2.16.8 40.1.231630.3.579.2.462 Unknown [id number] 2.16.8 [id number] Unknown [id number] Unknown [id number] Unknown [id number] Social History Date Type Detail Facility Tobacco smoking stat [facility] Unknown if ever smoked [facility] Work Phone: Start: 05-04-2021 Former smoker [facility] Work Phone: Start: 1940 Sex Assigned At Male A [facility] Start: 03-27-2022 End: 12-22-2024 Tobacco smoking status NHIS Ex-smoker [facility] End: 07-05-1996 History of tobacco use Current smoker [facility] End: 07-05-1996 History of tobacco use Cigarette Smoker [facility] Start: 03-27-2022 End: 03-18-2023 Cigarettes smoked current (pack per day) - Reported 1.5 [facility] Start: 03-27-2022 End: 04-30-2023 Tobacco use and exposure Former smokeless tobacco user [facility] End: 07-05-1996 History of tobacco use Chews Tobacco [facility] Start: 05-18-2022 End: 08-13-2022 Alcohol intake Current non-drinker of alcohol (finding) [facility] Start: 08-13-2022 End: 03-18-2023 Tobacco use panel [facility] Start: 06-17-2014 Alcohol Comment On 06/17/2014 r eports less and 1 in prior year, never heavy or regular [facility] Gender identity Identifies as ma le gender (finding) [facility] Start: 03-26-2022 End: 09-12-2022 Exposure to SARS-CoV-2 (event) Not sure [facility] Start: 03-17-2023 End: 05-09-2023 Tobacco smoking status NHIS Unknown if ever smoked [facility] National Score (1-10 0), lower number is lower risk 50 [facility] Start: 1940 Sex Assigned At Not on file [facility] Start: 04-30-2023 Alcohol intake Ex-drinker (finding) [facility] Start: 06-09-2024 End: 06-22-2024 Sex Male (finding) [facility] Medical Equipment Procedure Code Equipment Code Equipment Origin al Text Equipment Identifier Dates Insertion of ureteral stent [id number] Ureteral L26cm OD FDA Start: 01-21-2021 Goals [...] Assessment Result Facility 03-17-2023 Cognitive function Awake [facility] Work Phone: Clinical Notes 08-23-2010 to 05-29-2024 Note Date & Type Note Facility 05-29-2024 Evaluation note Diagnosis Onset Date Resolution 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 acute May 29, 2024 2:25pm Diabetes mellitus chronic May 292024 2:25pm [facility] Work Phone: 1(424) 618-800012-13-2024 Evaluation note* Diagnosis Onset Date Resolution Status [...] 2:25pm Diabetes mellitus chronic May 292024 2:25pm [facility] Work Phone: 1(139) 241-597702-20-2024 Hospital Discharge instructions Additional Instructions X-rays today were negative. No obvious fractures. Tylenol for any pain. Follow-up with either his primary care physician or your emergency medicine medical director if not improving in the next 3 to 5 days.[facility] Work Phone: 1(420) 381-553002-15-2024 Discharge summary Author Jose Daniel Rivera [facility] May 09, 2023 6:08pm Note Date/Time May 09, 2023 4:16pm [facility] Medical Records Department [address] [place] [address] Emergency Department Summary 05/09/23 MR#: [id number] Acct: [id number] Name: MICK COTTRLEL Rep #:[id number] : 1940 82 From: Jose Daniel Rivera [...] Narrative Narrative: Patient referred to ED from [facility] post fall at approximately noon today [...] Chao RN - Last Filed: 05/09/23 18:06> PFS Medical History Bladder cancer BPH (benign prostatic [...] of dementia currently livingin dementia unit at [facility]. [place] Coma Scale: document GCS findings Spontaneous Obeys [...] 94 Oxygen Delivery Method Room Air Neuro [place] Coma Scale: document GCS findings 14 MDM [...] for acute fracture. Patient to return to long-term. May use Tylenol for pain as needed. Instructed to use walker as previously prescribed. Discussed plan with patient. Patient agreeable. Patient to follow-up with primary care provider as needed. <Dr. Jose Daniel Rivera MD - Last Filed: 05/09/23 18:08> [facility] MDM Narrative Medical decision making narrative: Will [...] findings include: History is [82-year-old male at [facility] care facility with a history of dementia. Reportedly had a fall today. Complaining of back and rib pain. No LOC. Reportedly on no blood thinners. I spoke to the long-term nurse and they had no other concerns. [...] either his primary care physician or your emergency medicine medical director if notimproving in the next 3 to 5 days. Disposition Disposition: Home, Self Care Discharge Location: [facility] What to do if you have Problems For any increased pain, shortness of breath, bleeding, nausea or vomiting, chestpain, or any unexpected problems, contact your Primary Care Provider. Call [facility] ([phone]) or report to the closest Emergency Room. Call 911 if necessary. 05/09/231807 <Electronically signed by Jose Daniel Rivera MD> Cosigner Signature (if applicable): 05/09/231805 <Electronically signed by Sonia Chao RN> CC: Dr. Danielle Hernandez MD ~ Signed [facility] Work Phone: 1(835) 459-614502-06-2024 NoteHNO ID: [id number] Author: SIXTO KELLY MD Service: ? Author Type: Physician Type: Progress Notes Filed: 04/30/2023 14:13 Note Text: NEUROSURGERY FOLLOW UP OFFICE NOTE Dr. Sixto Kelly MD, FACS Date of visit: April 30, 2023 Patient Name: Mr.Thomas Cottrell Date of : 1940 Current Age: [age] year old Sex: male MRN/E# [id number] Last Office Visit: Hospital follow-up CHIEF COMPLAINT: [...] left-sided subdural hematoma. He was transferred to [facility] for higher acuity care. Review of [...] nervous/anxious. Brijesh (more content not included)...[facility]02-06-2024 Note HNO ID: [id number] Author: LOPEZ JAQUEZ RT(R) Service: Radiology Author [...] PATIENT PRESENTS WITH AN IMPLANTABLE OR ATTACHED PARK WORKER SUPERVISOR: NA RADIOLOGY DEPARTMENT: CT; Exam(s) Completed: Brain PERIPHERAL IV DATA: Not applicable SIGNED BY: RT Lucía(R) April 30, 2023 2:00 [facility]02-06-2024 History of Present illness Narrative* Sixto Kelly MD - 04/30/2023 1:49 PM EST NEUROSURGERY FOLLOW UP OFFICE NOTE Dr. Sixto Kelly MD, FACS Date of visit: April 30, 2023 Patient Name: Mr.Thomas Cottrell Date of : 1940 Current Age: [age] year old Sex: male MRN/E# [id number] Last Office Visit: Hospital follow-up CHIEF COMPLAINT: [...] left-sided subdural hematoma. He was transferred to [facility] for higher acuity care. Review of [...] 5/5 Straight leg Neg Neg Ankle dorsiflex / 5/5 Ankle Plantar 5/ 5/5 Heel Walking intact intact Toe Walking [...] subdural hematoma. ASSESSMENT/PLAN: 1. SDH (subdural hematoma) ([facility]) - ICD9: 432.1, ICD10: S06.5XAA Patient was [...] better and he is still in a long-term recuperating and having rehabilitation and is expected to go home soon. He has no focal neurological def icit by examination. He is able to speak without difficulty. In view of the resolution of the hematoma on the CT scan and I understood that his steel molder was planning to put him on baby [...] This note has been partially generated using Momail, a speech recognition software program, and may contain errors including punctuation, grammar, spelling, gender, and inappropriate words or phrases that pertain to the system. documented in this [facility] History of Present illness Narrative* Lopez Jaquez [...] PATIENT PRESENTS WITH AN IMPLANTABLE OR ATTACHED PARK WORKER SUPERVISOR: NA RADIOLOGY DEPARTMENT: CT; Exam(s) Completed: Brain PERIPHERAL IV DATA: Not applicable SIGNED BY: RT Lucía(David) April 30, 2023 2:00 PM documented in this encounterBlanchard Valley [facility]02[facility] Miscellaneous Notes* Telephone Encounter - Jose Damon - 04/25/2023 9:18 AM EST I spoke with Karie at patient facility, Karie is going to ask son if he can provide transportation, if not she will call back and reschedule documented in this encounterBlanchard Valley [facility]12[facility]23 NoteHNO ID: [id number] Author: Kasandra Ha RN Service: ? Author Type: Registered Nurse Type: Nursing Progress Note Filed: 03/21/2023 6:38 PM Note Text: Other: report given to Yesica at [facility] 03-21-2023 NoteHNO ID: [id number] Author: Trinidad Long RN Service: Care Management Author Type: Registered Nurse Type: Care Mgt Progress Note Filed: 03/21/2023 3:51 PM Note Text: CARE MANAGEMENT DISCHARGE NOTE SERVICE DATE: March 21, 2023 SERVICE TIME: 3:50 PM Admission Date: 03/17/2023 LOS: 4 days Discharge Arrangement Discharge Arrangement: Assisted Facility Was an expedited discharge program used?: No Services Arranged Medical Services: Other: See Comment (n/a) Provider Name: [facility] Caregiver Assessment Caregiver is ready, willing and able to meet the patient's needs as recommended by the inter-professional team: Yes Name of Caregiver: Jason Cottrell Transportation Arrangements Transportation Arrangements: Ambulance Transportation Agency and Phone #:: [facility] ( [facility] ) [phone] / [phone] Date of Trip: 03/21/23 Time of Trip: 1900 Type of Service: BLS Non-emergency Is Patient Medicaid Pending?: No Was transportation financial coverage discussed with family?: Patient;Family Speech Assistant Location: [facility] Destination: [facility] Financial Care Management Responsibility: None Handoff [...] Mick Cottrell DATE: March 21, 2023 TIME: 3:50 PM CONTACT #: [phone] Light Mercy Hospital12-28-2023 Note HNO ID: [id number] Author: Irving Modi PA-C Service: General Surgery Author Type: Physician Supervising Nurse Type: Progress Notes Filed: 03/21/2023 3:08 PM [...] Received Vitamin K for Warfarin reversal at [facility] and DDAVP for aspirin reversal Warfarin and [...] and Aspirin Other, Please specify [facility]12-28-2023 NoteHNO ID: [id number] Author: Trinidad Long RN Service: Care Management Author Type: Registered Nurse Type: Care Mgt Progress Note Filed: 03/21/2023 2:11 PM Note Text: CARE MANAGEMENT PROGRESS NOTE SERVICE DATE: 03/21/2023 SERVICE TIME: 1300 LOS: 4 days IMM Follow Up Copy Given: Yes Copy given to:: Patient Plow Shaker Plow Shaker Name/Relationship: Jason Cottrell/son Method: In Person The patient's son, Jason, gave verbal understanding of IMM reminder. SIGNATURE: Trinidad Long RN PATIENT NAME: Mick Cottrell DATE: March 21, 2023 TIME: 2:10 PM PAGER/CONTACT #: [phone] Light [facility]cy Hospital 03-21-2023 NoteHNO ID: [id number] Author: Irving Modi PA-C Service: General Surgery Author Type: Physician Supervising Nurse Type: Progress Notes Filed: 03/21/2023 11:05 AM Note Text: Trauma Surgery Progress Note SERVICE DATE: 03/21/2023 Trauma Service Pager: For questions or concerns Mon-Sat 6a-5p please page [phone]. After 5pm and on Weekends and Holidays, please page [phone] if in ICU or [phone] if on RNF. SUBJECTIVE: NAEON. Patient seen and examined this morning. He denied KENNEDY or visual changes. Intermittently confused during interview. [...] year old male s/p GLF on 03/15/2023 ([facility] transfer) Imaging performed: 03/17/2023 - CT HN, CXR, XR wrist (completed at [facility]) 03/17/2023 - PXR, repeat CTH 03/18/2023 - repeat CTH 03/20/2023 - repeat CTH Traumatic Injuries: Left SDH Left thumb metacarpal base fracture Operations/Procedures: 1. None Care Plan: SDH Neurosurgery consulted Non-op management Repeat CTH stable 03/18/2023 Received Vitamin K for Warfarin reversal at [facility] and DDAVP for aspirin reversal Warfarin and [...] only require (more content not included)...[facility]12-27-2023 NoteHNO ID: [id number] Author: He Quintero DO Service: General Surgery [...] March 20, 2023 TIME: 6:39 PM Pager: [phone] Trauma Surgery Progress Note SERVICE DATE: 03/20/2023 Trauma Service Pager: For questions or concerns Mon-Fri 6a-5p please page [phone]. After 5pm and on Weekends and Holidays, please page [phone] if in ICU or [phone] if on RNF. SUBJECTIVE: Seen and examined this morning, patient alert and oriented x 1-2. Repeat CT scan this morning stable. There is discussed disposition plan with son via the phone today. Plan for senior care facility and discussed the risks and benefits [...] O2 Therapy: Room Air IANDO: Date 03/19/23 0700 - 03/20/23 0659 03/20/23 0700 - 03/21/23 0659 Shift 7978-8484 4596-7652 2029-9081 24 Hour Total 0947-4959 1073-0742 3739-7411 24 Hour Total INTAKE Shift Total OUTPUT [...] per ne (more content not included)...[facility]12-27-2023 NoteHNO ID: [id number] Author: Trinidad Long RN Service: Care Management Author Type: Registered Nurse Type: Care Mgt Progress Note Filed: 03/20/2023 10:14 AM Note Text: Attestation signed by Almas Kaur MD at 03/20/2023 10:29 AM SIGNATURE: Almas Kaur MD PATIENT NAME: Mick Cottrell DATE: March 20, 2023 TIME: 10:29 AM Pager: [phone] CARE MANAGEMENT PROGRESS NOTE SERVICE DATE: 03/20/2023 [...] 20, 2023 TIME: 10:14 AM PAGER/CONTACT #: [phone] Light Mercy Hospital 03-20-2023 NoteHNO ID: [id number] Author: Trinidad Long RN Service: Care Management Author Type: Registered Nurse Type: Care Mgt Progress Note Filed: 03/20/2023 10:13 AM Note Text: CARE MANAGEMENT PROGRESS NOTE SERVICE DATE: 03/20/2023 SERVICE TIME: 10:13 AM LOS: 3 days Needs Prior to Discharge: Discharge Transportation;Insurance Authorization Chart reviewed. [facility] is able to accept. They are pt's son Jason's first choice facility. I asked the [facility] to start precert. Will notify the attending and son when auth is received. Will need cot transport when ready. SIGNATURE: Trinidad Long RN PATIENT NAME: Mick Cottrell DATE: March 20, 2023 TIME: 10:13 AM PAGER/CONTACT #: [phone] Light Mercy Hospital 03-20-2023 NoteHNO ID: [id number] Author: Cecelia Perez DO Service: General Surgery [...] March 20, 2023 TIME: 6:39 PM Pager: [phone] Trauma Surgery Progress Note SERVICE DATE: 03/20/2023 Trauma Service Pager: For questions or concerns Mon-Fri 6a-5p please page [phone]. After 5pm and on Weekends and Holidays, please page [phone] if in ICU or [phone] if on RNF. SUBJECTIVE: Patient seen and [...] Date 03/19/23 07 - 03/20/23 0659 03/20/23 0700 - 03/21/23 0659 Shift 2873-0095 3330-2585 0095-8418 24 Hour Total 1003-3023 1749-9961 0990-7402 24 Hour Total INTAKE Shift Total OUTPUT [...] fracture Ort (more content not included)...[facility]12-26-2023 NoteHNO ID: [id number] Author: Trinidad Long, RN Service: Care Management Author Type: Registered Nurse Type: Care Mgt Progress Note Filed: 03/19/2023 2:23 PM Note Text: CARE MANAGEMENT PROGRESS NOTE SERVICE DATE: 03/19/2023 SERVICE TIME: 2:21 PM LOS: 2 days Needs Prior to Discharge: Accepting Facility;Facility or Agency Choices;OT/PT Evaluation;To Be Determined;Insurance Authorization;Discharge Transportation;Bed Availability Irma of Choice Given: Yes Level of Care Discussed: Assisted Facility Financial Disclosure Provided: Yes Financial Disclosure Comments: discussed with alvarado Gomez Provider List: Assisted Facility Provider list within the patient's requested geographic area shared with the patient/family: Yes within: 15 miles of zip code: [address] Quality and resource use metrics shared with [...] him to dc to a SNF/AR in [facility] where his son Jason lives. Jason would like a SNF referral sent to [facility]. Will need precert prior to dc to a facility. Will follow for transitional care planning. SIGNATURE: Trinidad Long RN PATIENT NAME: Mick Cottrell DATE: March 19, 2023 TIME: 2:21 PM PAGER/CONTACT #: [phone] Light Mercy Hospital 03-19-2023 NoteHNO ID: [id number] Author: He Quintero DO Service: General Surgery [...] March 19, 2023 TIME: 6:25 PM Pager: [phone] Trauma Surgery Progress Note SERVICE DATE: 03/19/2023 Trauma Service Pager: For questions or concerns Mon-Fri 6a-5p please page [phone]. After 5pm and on Weekends and Holidays, please page [phone] if in ICU or [phone] if on [...] 0659 03/19/23 07 - 03/20/23 0659 Shift 9433-4753 6469-8686 3486-9988 24 Hour Total 5660-5281 1049-2553 4099-4138 24 Hour Total INTAKE PO 100 100 [...] neurosurgery Cardiology (more content not included)...[facility]12-26-2023 NoteHNO ID: [id number] Author: Anshul Guy APRN.SPORTS MANAGEMENT INTERN Service: Neurosurgery Author Type: Nurse Practitioner Type: Progress Notes Filed: 03/19/2023 8:06 AM Note Text: Neurosurgery Progress Note SERVICE DATE: 03/19/2023 SUBJECTIVE: NAEON. Denies KENNEDY/n/v OBJECTIVE: Vitals: Temp (24hrs), Av.6 ?C (97.9 ?F), Min:36.4 ?C (97.5 ?F), Max:36.9 ?C (98.4 ?F) BP 192/92 Pulse 65 Temp 36.6 ?C (97.9 ?F) (Oral) Resp 17 Ht 175.3 cm (5' 9") Wt 89.4 kg (197 lb 1.5 oz) SpO2 95% BMI 29.11 kg/m? O2 Therapy: Room Air IANDO: Date 03/18/23 07 - 03/19/23 0659 03/19/23 07 - 03/20/23 0659 Shift 7397-6161 1254-7627 6854-4093 24 Hour Total 2090-9084 3341-2068 5771-1351 24 Hour Total INTAKE PO 100 100 [...] Ok for DVT chemoppx, order placed - Keppra x7d Portions of text from this note were copied. All relevant information was reviewed and updated accordingly on 03/19/2023 SIGNATURE: Anshul Guy APRN.CNP PATIENT NAME: Mick Cottrell DATE: March 19, 2023 TIME: 7:50 AM Pager: [phone] History of Past illness Narrative* Problem Noted Date Diagnosed Date Resolved Date Hypokalemia 03/18/2023 03/21/2023 documented as of this encounter (statuses as of 04/25/2023) [facility] History of Past illness Narrative* Problem Noted Date Diagnosed Date Resolved Date Hypokalemia 03/18/2023 03/21/2023 documented as of this encounter (statuses as of 05/01/2023) [facility]12-25-2023 History of Past illness Narrative* Problem Noted Date Diagnosed Date Resolved Date Hypokalemia 03/18/2023 03/21/2023 documented as of this encounter (statuses as of 05/01/2023) [facility]12-24-2023 Discharge summary Author Brendon Hope [facility] March 17, 2023 8:31pm Note Date/Time March 17, 2023 4:44pm [facility] Medical Records Department [address] [place] [address] Emergency Department Summary 03/17/23 MR#: [id number] Acct: [id number] Name: COTTRELLMICK Rep #:[id number] : 1940 82 From: Brendon Anna PCP: GRACE FELICIANO Status:REG ER Location: ED HPI History of Present Illness Chief Complaint: Confusion PFSH PFSH Medical History (Updated 03/17/23 @ 17:16 by [...] Response: 6 Secondary Survey Constitutional: Please see MDM Head: Atraumatic, Midface stable, NO jaw malocclusion, [...] History obtained from others: Son Consults: none [facility] Narrative: Patient was initially hypertensive otherwise afebrile [...] Dr. Mayen the patient in transfer to [facility]. The patient and/or family, caregivers express understanding. [...] 3. Thrombocytopenia 4. Hyperglycemia Dispo: Transfer to [facility] History & Record Review Discussion w/independent historian: [...] 84.7 H Lymph % (Auto) 6.9 L [place] % (Auto) 7.7 Eos % (Auto) 0.0 [...] Noreen Mckay MD at 17:26 EST , ADDENDUM: 03/17/23 6574 IMPRESSION: Acute subdural hemorrhage along the left [...] no acute cardiopulmonary disease. Electronically Signed: Noreen Mckay MD at 17:21 EST , Wrist X-Ray 03/17/23 16:51 IMPRESSION: Fracture involving the first metacarpal base. Underlying mild degenerative disease with osteopenia. Electronically Signed: Noreen Mckay MD at 17:22 EST , Discharge Plan Triage Chief Complaint: Confusion ED Provider: Brendon Hope Dx/Rx/DC Orders Primary Care Provider: GRACE FELICIANO Referrals: [facility] Doctor,Out of [Non-Staff] - Disposition Disposition: Acute Care Hospital Discharge Location: [facility] What to do if you have Problems For any increased pain, shortness of breath, bleeding, nausea or vomiting, chestpain, or any unexpected problems, contact your Primary Care Provider. Call [facility] ([phone]) or report to the closest Emergency Room. Call 911 if necessary. 03/17/232030 <Electronically signed by Brendon Hope DO> Cosigner Signature (if applicable): CC: GRACE GARCIA ~ Signed [facility] Work Phone: 1(909) 843-939408-10-2023 History of Present illness Narrative* Ingrid Dennis LPN - 11/01/2022 11:00 AM EDT Procedure explained to patient. Patient verbalizes understanding.Witnessed patient signed consent for procedure.Post procedure discharge instructions discussed and given to patient., Patient, procedure and site verified , Patient given Ciprofloxacin 500 mg po times 1 dose per standing order per physician. Lot [id number] Exp 05/19 , Prep Betadine , 11 ml lidocaine Glydojet inserted into urethra, 11 ml lidocaine Glydojet inserted into urethra, Lot: [id number], EXP: 11/16, NDC . , 1000ml Bag Sterile Saline LOT [id number] , EXP 11/15 , Fire Hazard: _low__, Scope: Olympus Flexible CystoUrethroscope # __[id number]__ assigned to this procedure Time Out:1123 , Start:1123 , Stop:1124 . * Neno Domínguez MD [...] was obtained. Does this procedure require a [place] Protocol? Yes. [place] Protocol is required. The patient was given [...] 3 months for cysto documented in this encounterEMPIRE [id number] History of Present illness Narrative* Jaime Dickey MD - 10/03/2022 10:20 AM EDT Chief Complaint Patient presents with Right Hip - Injury Patient fell. HPI: Mick Cottrell is a 82 y.o. male who has been sent to [facility] for an evaluation of right hip. He is doing very well she he at a senior care facility. He is not having any pain. 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 He will continue physical therapy to senior care facility. I did explain if he has [...] please notify the author. documented in this encounterATRIUM HEALTH [id number] Nurse Note* Nursing Notes - Geovanna De RN - 09/14/2022 3:21 PM EDT Report given to FIDELINA Rodarte at [facility] in [place]. Patient to be transported this afternoonaround 15:45. Patient's Son Checo is aware of transfer. [id number] Miscellaneous Notes* Nursing Notes - Geovanna De RN - 09/14/2022 3:21 PM EDT Report given to FIDELINA Rodarte at [facility] in [place]. Patient to be transported this afternoonaround 15:45. Patient's Son Checo is aware of transfer. * Plan of Care - Pily Narayanan RN - 09/14/2022 12:49 PM EDT [facility] completed for [facility] Per Jessica Bacon we have insurance auth, he can transfer today, no covid test needed. Report number [phone] * Plan of Care - Pily Narayanan RN - 09/14/2022 12:19 PM EDT [facility] [place] has accepted the patient, I spoke with [...] therapy but he wanted to remain in [place]. He told me he did not have a preference. Referral was sent to the 4 SNF in [place] at this time. * Plan of Care [...] of home med list and call to [facility] to verify patients medication. documented in this encounterATRIUM HEALTH [id number] History of Present illness Narrative* Pily Narayanan RN - 09/14/2022 1:30 PM EDT 09/14/22 1329 Referral Information Arrived From home or self-care Final Discharge Planning Discharge Disposition Assisted Facility CM/SW AVS Portion Completed Yes Community Agency Name(s) For Handoff [facility] [facility] Phone For Handoff [phone] Plan Plan Plan to transfer to SNF [...] preference he just wants to stay in [place]. 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 06 Medtronic LNQ11, serial [id number], Leon Landers MD [phone] ECHOCARDIOGRAM (OUTSIDE) 2013May 05 normal RA, normal [...] railing 4 - No Assistance PRIOR LEVEL [facility] Mobility Raw Score 24 PRIOR LEVEL [facility] Mobility Functional Limitation/Modifier 0.00% Prior Functional Impairment [...] wheeled walker;Gait belt Supine to Sit Mobility [place] Level: Supine->Sit minimum assist (75% patient effort) Bed Features/Set-up: Supine->Sit Head of bed elevated;Use of bed rail Skilled Rationale Verbal cues;Hand placement;Cues for increased safety;Technique of activity Sit to Stand Transfer [place] Level: Sit->Stand minimum assist (75% patient effort) Assistive Device: Sit->Stand gait belt;2 wheeled walker Skilled Rationale Verbal cues;Hand placement;Cues for increased safety;Maintain precautions;Technique of activity Stand to Sit Transfer [place] Level: Stand->Sit minimum assist (75% patient effort) Assistive Device: Stand->Sit gait belt;2 wheeled walker Skilled Rationale Hand placement;Verbal cues;Cues for increased safety;Technique of activity;Maintain precautions Bed-Chair Transfer [place] Level: Bed<->Chair minimum assist (75% patient effort) Assistive Device: Bed<->Chair gait belt;2 wheeled walker Skilled Rationale Hand placement;Verbal cues;Cues for increased safety;Technique of activity;Maintain precautions Gait Assessment [place] Level: Gait minimum assist (75% patient effort) Assistive Device: Gait gait belt;2 wheeled walker Ambulation Distance (Feet) 5 Gait Skilled Rationale verbal;improve foot placement;increase foot clearance;proximity of assistivedevice Skilled Intervention/Details - Gait Pt took 5 steps with education on TDWB to RLE with FWW with slight instability but no LOB noted. 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 06 Medtronic LNQ11, serial [id number], Leon Landers MD [phone] ECHOCARDIOGRAM (OUTSIDE) 2013May 05 normal RA, normal [...] Eating 4 - No Assistance PRIOR LEVEL [facility] Activity Raw Score 24 PRIOR LEVEL [facility] Activity Functional Limitation/Modifier 0.00% Prior Functional Impairment in Daily Activity General Pain Documentation (Adult, OB, Peds) Presence of Pain denies pain/discomfort Cognition Overall Cognitive Status WFL Vision Screen Currently wearing corrective lenses Yes Speech Speech no gross deficits noted Hearing Hearing no gross deficits noted Sensation Overall Sensation Intact RUE Assessment RUE Assessment WFL LUE Assessment LUE Assessment WFL Hand Director [employer] Strength Hand Director [employer] Strength Interpretation Left above expected range (strong);Right above expected range (strong) Skin Integrity Skin Integrity Description Intact Supine to Sit Mobility [place] Level: Supine->Sit minimum assist (75% patient effort) Physical Assist: Supine->Sit other (see comments) (1 person assist) Bed Features/Set-up: Supine->Sit Head of bed elevated;Use of bed rail Skilled Rationale Verbal cues;Hand placement;Cues for increased safety;Technique of activity Sit to Stand Transfer [place] Level: Sit->Stand minimum assist (75% patient effort) Physical Assist: Sit->Stand other (see comments) (1 person assist) Assistive Device: Sit->Stand gait belt;2 wheeled walker Skilled Rationale Verbal cues;Hand placement;Cues for increased safety;Maintain precautions;Technique of activity Stand to Sit Transfer [place] Level: Stand->Sit minimum assist (75% patient effort) Physical Assist: Stand->Sit other (see comments) (1 person assist) Assistive Device: Stand->Sit gait belt;2 wheeled walker Skilled Rationale Hand placement;Verbal cues;Cues for increased safety;Technique of activity;Maintain precautions Bed-Chair Transfer [place] Level: Bed<->Chair minimum assist (75% patient effort) [...] Standing-Balance Support 2 wheeled walker;Gait belt [facility] Activity Inpatient Short Form Putting on/Taking [...] Time Entry: 18 Charges: mod complexity eval Beverly Chu OT * Reyes Carney [facility] - 09/14/2022 10:43 AM EDTSummary: Anticoagulation - Warfarin [facility] Department of Pharmacy - Warfarin Pharmacy to [...] evening. I have modified the orders in IHIS to reflect the above plan. PT/INR ordered. Continuation from Home? Yes - home dose (prior to admission) = 2 mg W, 4 mg all other days Established with [facility]? Yes - last INR = [...] us with any questions. Reyes Carney RPH [facility] Department of Pharmacy Pharmacy Date/Time: 09/14/2022 10:37 AM * Capri Buckner - 09/13/2022 12:22 PM EDT [facility] Department of Pharmacy Medication History Note Name: Mick Cott[facility] The following sources were used to obtain the medication history: Medication History Sources: patient, surescripts, and pharmacy: [facility] pharmacy , [facility] The following notable items or issues were identified during the medication history: -patient poor historian, unsure if still taking atorvastatin 40mg- last fill 07-07-22 #90/90ds was picked up per [facility] pharmacy-[facility] -was previously taking topiramate 50 mg, patient [...] not taking: Reported on 09/13/2022 Not Taking 5/22/19 Aida Parr MD oxybutynin 5 MG Tab [...] 09/13/2022 Not Taking 11/06/14 Hyacinth Wilkins MD [facility] Department of Pharmacy Date/Time: 09/13/2022 12:16 PM Electronically signed by Priscilla Gilliland [facility] at 09/14/2022 4:09 PM EDT * Yvon Boyce MD - 09/13/2022 7:40 AM EDT [facility] Medicine Daily Progress Note Patient: Mick Cottrell, 1940, [id number] Physician: Yvon Boyce MD Length of Stay: [...] Ptt/Pt/Inr: --/24.3/2.2 (09/12 1015) Na/K+/Phos/Mg/Ca: 140/4.0/--/--/9.3 (09/12 1015) Additional Labs/Cultures/Micro: New Imaging/Radiological Studies: Assessment/Plan: Mick [...] Providers Updated In IHIS No Contact Information Syrup Blender/SW Added to Care Team Yes This Worker'S Compensation Claims Examiner is Primary Syrup Blender/SW Yes Syrup Blender Name Pily Narayanan RN CM Syrup Blender's Living Environment Lives With alone Living Arrangements [...] No Initial Discharge Planning Home Care Services (MILLER APPRENTICE) No Home Therapies (MILLER APPRENTICE) None DME (MILLER APPRENTICE) Walker;Straight cane Patient Goal for Discharge Get better Anticipated discharge disposition Assisted Facility Anticipated Services at Discharge Physical Therapy Anticipated Changes Related to Illness none Current Discharge Risk lives alone;>65 years of age Transportation Available car Discharge Planning Comments Patient is willing to discuss HH or in patient rehab if needed. He states he currently goes out to [facility] for out patient therapy. Home Care Services (MILLER APPRENTICE) Additional Home Care Services (MILLER APPRENTICE) no Assessment/Concerns to be Addressed Concerns To Be Addressed care coordination/care conferences Patient states no concerns with medication costs or transportation. Patient states no additional needs at this time. documented in this encounterATRIUM HEALTH [id number] Hospital course Narrative* Yvon Boyce MD - [...] Cottrell during his recent hospital stay at [facility]. Hospital Course: Mick Cottrell is a 81 [...] his hospital stay. Sincerely, Yvon Boyce MD [facility] Division of Hospital Medicine RELEVANT DATA FROM [...] PATIENT MEDICAL HOME AT DISCHARGE Grace Gtz [facility] Candace Lockhart / Valorie MD [id number] MEDICATIONS Medication List for when you go [...] No follow-up provider specified. documented in this encounterATRIUM HEALTH [id number] Plan of care note* Plan of Care - Pily Narayanan RN - 09/14/2022 12:49 PM EDT [facility]ENS completed for [facility] [place] [facility] Per Jessica Bacon we have insurance auth, he can transfer today, no covid test needed. Report number [phone] [facility] [id number] Plan of care note* Plan of Care - Pily Narayanan RN - 09/14/2022 12:19 PM EDT [facility] [place] has accepted the patient, I spoke with the patient over this and he said he has been there before and would like to go back. Talked with Jessica Bacon and she is starting insurance auth at this time. [id number] Plan of care note* Plan of Care - Pily Narayanan RN - 09/14/2022 11:49 AM EDT Talked with the patient at the bedside over therapy recommendation. He stated he would agree to in patient therapy but he wanted to remain in [place]. He told me he did not have a preference. Referral was sent to the 4 SNF in [place] at this time. [facility] [id number] Plan of care note* Plan of Care [...] and safety with standing tasks. Outcome: Ongoing T [facility] [id number] Plan of care note* Plan of Care [...] promote safety during daily routine. Outcome: Ongoing [facility] [id number] Consult note* Jaime Dickey MD - 09/13/2022 [...] y.o. male who has been sent to [facility] for an evaluation of right hip pain. [...] 12 RELEASE CARPAL TUNNEL Right 2013Jan 29 WARP BLEACHING VAT TENDER 2013Oct 06 Medtronic LNQ11, serial [id number], Leon Landers MD [phone] ECHOCARDIOGRAM (OUTSIDE) 2013May 05 normal RA, normal RV and RV systolic function, no PFO by color Doppler or agitated saline, mild LAE, normal LV and LV systolic function, LVEF 63%, mild LV diastolic dysfunction, normally functioning bioprosthetic AV, no pulmonary HTN LUNG SURGERY Right 2011 10 thoracotomy, pneumonia CYSTOSCOPY 2011 bladder cancer [...] phrase is noted, please notify the author. [employer] Phone: 1(723) 816-263606-22-2023 Consult note* Jaime Dickey MD - 09/13/2022 [...] y.o. male who has been sent to [facility] for an evaluation of right hip pain. [...] 12 RELEASE CARPAL TUNNEL Right 2013Jan 29 WARP BLEACHING VAT TENDER 2013Oct 06 [employer]onic LNQ11, serial [id number], Leon Landers MD [phone] ECHOCARDIOGRAM (OUTSIDE) 2013May 05 normal RA, normal [...] please notify the author. documented in this encounterATRIUM HEALTH [id number] Plan of care note* Plan of Care - Pily Narayanan RN - 09/13/2022 11:[address] Boyce patient may need placement for therapy. Ortho consult is pending at this time. [facility] [id number] Nurse Note* Nursing Notes - ORIANA Heard - 09/13/2022 11:01 AM EDT Patient refused to use bedpan for bowel movement would only go on the bedside. Myself and the charge nurse helped assisted him in the transfer. Patients nurse was notified. [facility] [id number] Nurse Note* Nursing Notes - Meghan Marie [...] of home med list and call to [facility] to verify patients medication. [facility] [id number] History and physical note* Zach Sales MD - 09/12/2022 3:14 PM EDT Hospital Medicine History & Physical Patient: Mick Cottrell, 1940, [id number] Physician: Zach Sales MD Admit Date: 09/12/2022 [...] 12 RELEASE CARPAL TUNNEL Right 2013Jan 29 WARP BLEACHING VAT TENDER 2013Oct 06 [employer]onic LNQ11, serial [id number], Leon Landers MD [phone] ECHOCARDIOGRAM (OUTSIDE) 2013May 05 normal RA, normal [...] deficits. Labs and Imaging WBC/Hgb/Hct/Plts: 9.9/14.5/44.5/123 (09/12 101) Bun/Creat/Cl/CO2/Glucose: 13/1.17/104/27/139 (09/12 101) Ptt/Pt/Inr: --/24.3/2.2 (09/12 1014) Na/K+/Phos/Mg/Ca: 140/4.0/--/--/9.3 (09/12 101) Lab Results Component [...] / Irving Quintero Interpreting Provider: Irving Quintero [facility] [id number] History and physical note* Zach Sales MD - 09/12/2022 3:14 PM EDT [facility] Medicine History & Physical Patient: Mick Cottrell, 1940, [id number] Physician: Zach Sales MD Admit Date: 09/12/2022 [...] 12 RELEASE CARPAL TUNNEL Right 2013Jan 29 WARP BLEACHING VAT TENDER 2013Oct 06 Ep[employer]te LNQ11, serial [id number], Leon Landers MD [phone] ECHOCARDIOGRAM (OUTSIDE) 2013May 05 normal RA, normal [...] Interpreting Provider: Irving Quintero documented in this encounterATRIUM HEALTH [id number] Physician Emergency department Note* Komal Blackwell MD [...] 12 RELEASE CARPAL TUNNEL Right 2013Jan 29 WARP BLEACHING VAT TENDER 2013Oct 06 Ep[employer]hyte LNQ11, serial [id number], Leon Landers MD [phone] ECHOCARDIOGRAM (OUTSIDE) 2013May 05 normal RA, normal RV and RV systolic function, no PFO by color Doppler or agitated saline, mild LAE, normal LV and LV systolic function, LVEF 63%, mild LV diastolic dysfunction, normally functioning bioprosthetic AV, no pulmonary HTN LUNG SURGERY Right 2011 10 thoracotomy, pneumonia CYSTOSCOPY 2011 bladder cancer [...] Auto 0.6 0.6 - 4.6 K/uL Abs [place] Auto 0.8 0.0 - 1.3 K/uL Abs [...] Negative Negative Leukocyte Esterase Negative Negative Specific [place] Urine 1.017 1.010 - 1.025 Radiology MRI [...] does have pelvic fractures, MRI results pending 1424 I spoke with the hospitalist who accepts the patient for admission and MRI scan did show a acetabular fracture and superior pubic ramus fracture the patient does have inability to ambulate as well as labrum tear the patient will be admitted likely for placement in extended care facility for rehab Komal Blackwell MD 09/12/22 0924 Komal Blackwell MD 09/12/22 1425 [facility] [id number] Emergency department Note* Komal Blackwell MD - [...] 12 RELEASE CARPAL TUNNEL Right 2013Jan 29 WARP BLEACHING VAT TENDER 2013Oct 06 Medtronic LNQ11, serial [id number], Leon Landers MD [phone] ECHOCARDIOGRAM (OUTSIDE) 2013May 05 normal RA, normal [...] Auto 0.6 0.6 - 4.6 K/uL Abs [place] Auto 0.8 0.0 - 1.3 K/uL Abs [...] Negative Negative Leukocyte Esterase Negative Negative Specific [place] Urine 1.017 1.010 - 1.025 Radiology MRI [...] Komal Blackwell MD 09/12/22923 Komal Blackwell MD 09/12/22 142 documented in this encounterATRIUM HEALTH [id number] History of Present illness Narrative* Anshul Mccormick [...] affected nails with nail nipper and nail multifocal button grinder, width, length, and thickness to prevent [...] and thickness with nail nipper and nail multifocal button grinder to debulk nails to prevent infection/ulceration. [...] to clinic: 3 months documented in this encounterATRIUM HEALTH [id number] History of Present illness Narrative* Grace Schulte - 07/31/2022 11:00 AM EDT Procedures Procedure explained to patient. Patient verbalizes understanding.Witnessed patient signed consent for procedure.Post procedure discharge instructions discussed and given to patient., Patient, procedure and site verified. Patient given Ciprofloxacin 500 mg po times 1 dose per standing order per physician Lot#[id number] Ex:12/16. Prep Betadine, 11 ml lidocaine Glydojet inserted into urethra, Lot:[id number] , EXP:07/17. 1000ml Bag Sterile Saline LOT#[id number] , EXP:07/16. Fire Hazard: _low__, Scope: Olympus [...] was obtained. Does this procedure require a [place] Protocol? Yes. [place] Protocol is required. The patient was given [...] 3 months for cysto. documented in this encounterATRIUM HEALTH [id number] Hospital Discharge instructions* Patient Instructions* Leandra Gaming [...] AM and 5 PM call: Cardiology office [phone] After 5 PM, on weekends, or if you are not able to reach your doctor, call [facility] screen printing press operator at [phone] and ask for the Cardiology attending doctor special education administrator. Call 911 or get emergency care if you have: Wrist site bleeding that does not stop after applying direct pressure for 15 minutes. Chest pain, shortness of breath or any unusual symptoms including chills, fever, nausea or vomiting. documented in this encounterWALTER VILLE [id number] Note* Op Note - Juan Wilson MD - 07/13/2022 11:48 AM EDT [facility] showed non obstructive CAD. Plan: - wrist care - dc home - continue medical therapy - acceptable risk to unndergo surgery - no further testing required [id number] Miscellaneous Notes* Op Note - Juan Wilson MD - 07/13/2022 11:48 AM EDT [facility] showed non obstructive CAD. Plan: - wrist care - dc home - continue medical therapy - acceptable risk to unndergo surgery - no further testing required documented in this encounterWALTER VILLE [id number] History and physical note* Juan Wilson MD [...] extraction (Right, 2011); echocardiogram (outside) (2013May 05); laboratory monitor (2013Oct 06); release carpal tunnel (Right, 2013Jan [...] injections of adrenalin-severe reaction in the late Morphine Hallucination HOME MEDICATIONS No medications prior [...] results of cardiac catheterization Juan Wilson MD, [facility], [facility] Interventional Cardiology [facility] [id number] History and physical note* Juan Wilson MD [...] extraction (Right, 2011); echocardiogram (outside) (2013May 05); laboratory monitor (2013Oct 06); release carpal tunnel (Right, 2013Jan [...] reccomendations pending results of cardiac catheterization Juan Wilson, MD, [facility], [facility] Interventional Cardiology [facility] documented in this encounterATRIUM HEALTH [id number] Evaluation + Plan note* Assessment & Plan Note - Juan Wilson MD - 06/26/2022 1:59 PM EDTAssociated Problem(s): Cerebrovascular accident (CVA) Hx of stroke Gait imbalance [facility] [id number] Evaluation + Plan note* Assessment & Plan Note - Juan Wilson MD - 06/26/2022 1:59 PM EDTAssociated Problem(s): S/P AVR (aortic valve replacement) cont aspirin [facility] [id number] Miscellaneous Notes* Assessment & Plan Note - [...] due to worsening LOPEZ documented in this encounterATRIUM HEALTH [id number] Evaluation + Plan note* Assessment & Plan Note - Juan Wilson MD - 06/26/2022 1:56 PM EDTAssociated Problem(s): HTN (hypertension) At goal Will cont home meds [id number] Evaluation + Plan note* Assessment & Plan Note - Juan Wilson MD - 06/26/2022 1:53 PM EDTAssociated Problem(s): Equivalent angina Symptoms are progressing ECG reviewed, abnormal Stress test showed inferior ischemia Will plan [facility] due to worsening LOPEZ [id number] History of Present illness Narrative* Juan Wilson MD - 06/26/2022 1:20 PM EDT Primary care provider: Grace Gtz MD (General) Dear Dr. Gtz, I had the pleasure of seeing your patient, Mick Cottrell, at the [facility] on 06/26/2022 in follow-up. As you recall, this 81 y.o. 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 If I can be of any further assistance,please do not hesitate to contact me. Sincerely, Juan Wilson MD [facility] documented in this encounterATRIUM HEALTH [id number] Evaluation + Plan note* Assessment & Plan Note - Juan Wilson MD - 05/18/2022 11:44 AM ESTAssociated Problem(s): Equivalent angina Symptoms are progressing Will check TTE Will check stress test ECG reviewed, abnormal [facility] [id number] Evaluation + Plan note* Assessment & Plan Note - Juan Wilson MD - 05/18/2022 11:44 AM ESTAssociated Problem(s): S/P AVR (aortic valve replacement) Will repeat TTE Cont coumadin [facility] [id number] Miscellaneous Notes* Assessment & Plan Note - [...] scheduled w/ on 06/26/22. documented in this encounterATRIUM HEALTH [id number] Miscellaneous Notes* Assessment & Plan Note - [...] Will cont home meds documented in this encounterATRIUM HEALTH [id number] Evaluation + Plan note* Assessment & Plan Note - Juan Wilson MD - 05/18/2022 11:43 AM ESTAssociated Problem(s): HLD (hyperlipidemia) Cont statin [facility] [id number] Evaluation + Plan note* Assessment & Plan Note - Juan Wilson MD - 05/18/2022 11:43 AM ESTAssociated Problem(s): Cerebrovascular accident (CVA) Hx of stroke Gait imbalance [facility] [id number] Evaluation + Plan note* Assessment & Plan Note - Juan Wilson MD - 05/18/2022 11:43 AM ESTAssociated Problem(s): HTN (hypertension) At goal Will cont home meds [facility] [id number] History of Present illness Narrative* Juan Wilson MD - 05/18/2022 11:20 AM EST Primary care provider: Grace Gtz MD (General) Dear Dr. Gtz, I had the pleasure of seeing your patient, Mick Cottrell, at the [facility] on 05/18/2022 in follow-up. As you recall, this 81 y.o. 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 If I can be of any further assistance, please do not hesitate to contact me. Sincerely, Juan Wilson MD [facility] documented in this encounterATRIUM HEALTH [id number] History of Present illness Narrative* Juan Wilson MD - 05/18/2022 11:20 AM EST Primary care provider: Grace Gtz MD (General) Dear Dr. Gtz, I had the pleasure of seeing your patient, Mick Cottrell, at the [facility] on 05/18/2022 in follow-up. As you recall, this 81 y.o. 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 If I can be of any further assistance, please do not hesitate to contact me. Sincerely, Juan Wilson MD [facility] documented in this [facility]02-24-[facility]23 Procedure note* Juan Wilson MD - 05/18/2022 11:20 AM ESTAssociated Order(s): [place] ELECTROCARDIOGRAM, COMPLETE NSR at [address] deviations in inferior and lateral leads [id number] Procedure note* Juan Wilson MD - 05/18/2022 11:20 AM ESTAssociated Order(s): [place] ELECTROCARDIOGRAM, COMPLETE NSR at [address] deviations in inferior and lateral leads documented in this [place] [id number] Procedure note* Juan Wilson MD - 05/18/2022 11:20 AM ESTAssociated Order(s): [place] ELECTROCARDIOGRAM, COMPLETE NSR at [address] deviations in inferior and lateral leads documented in this encounterATRIUM HEALTH [id number] Progress note* Result Encounter Note - Rosalie Soares RN - 05/18/2022 11:20 AM EST Pt scheduled w/ on 06/26/22. [id number] Physician Emergency department Note* Juan Carlos Hahn MD [...] EMS FROM HOME TO THE ER AT [facility] WITH A CHIEF COMPLAINT OF CONSTIPATION. PATIENT RECENTLY HAD A BLADDER CANCER SURGERY PERFORMED AT [facility] BY DR. DOMÍNGUEZ, AND WAS DISCHARGED HOME. [...] N/A; Surgeon: Benigno Cardoso MD; [facility]/PYELOGRAPHY RETROGRADE Bilateral 08/13/2018 Laterality: Bilateral; Surgeon: Benigno Cardoso MD; Location: [facility] MAIN OR CYSTOURETHROSCOPY W/ FULGURATION/RESECTION LESION BLADDER (TURB) N/A 08/02/2014 Laterality: N/A; Surgeon: Benigno Cardoso MD; Location: [facility] MAIN OR UROGRAPHY/PYELOGRAPHY RETROGRADE Bilateral 08/02/2014 Laterality: Bilateral; Surgeon: Benigno Cardoso MD; Location: [facility] MAIN OR RELEASE CARPAL TUNNEL Left 2013Feb 12 RELEASE CARPAL TUNNEL Right 2013Jan 29 WARP BLEACHING VAT TENDER 2013Oct 06 Medtronic LNQ11, serial [id number], Leon Landers MD [phone] ECHOCARDIOGRAM (OUTSIDE) 2013May 05 normal RA, normal [...] BLADDER CANCER SURGERY PERFORMED BY UROLOGY AT [facility] ON SATURDAY. STATES NO BOWEL MOVEMENT SINCE [...] management. Juan Carlos Hahn MD 04/28/22 1010 [id number] Emergency department Note* Juan Carlos Hahn MD [...] EMS FROM HOME TO THE ER AT [facility] WITH A CHIEF COMPLAINT OF CONSTIPATION. PATIENT RECENTLY HAD A BLADDER CANCER SURGERY PERFORMED AT [facility] BY DR. DOMÍNGUEZ, AND WAS DISCHARGED HOME. [...] 12 RELEASE CARPAL TUNNEL Right 2013Jan 29 WARP BLEACHING VAT TENDER 2013Oct 06 Medtronic LNQ11, serial [id number], Leon Landers MD [phone] ECHOCARDIOGRAM (OUTSIDE) 2013May 05 normal RA, normal RV and RV systolic function, no PFO by color Doppler or agitated saline, mild LAE, normal LV and LV systolic function, LVEF 63%, mild LV diastolic dysfunction, normally functioning bioprosthetic AV, no pulmonary HTN LUNG SURGERY Right 2011 Sep 10 thoracotomy, pneumonia CYSTOSCOPY 2012 bladder cancer INTRACAPSULAR CATARACT EXTRACTION Right 2011 [...] BLADDER CANCER SURGERY PERFORMED BY UROLOGY AT [facility] ON SATURDAY. STATES NO BOWEL MOVEMENT SINCE [...] Hahn MD 04/28/22 1010 documented in this encounterATRIUM HEALTH [id number] Nurse Note* Susan Baxter RN - 04/26/2022 11:20 AM EST Reviewed discharge instructions with patient and a responsible adult. Voiced understanding. No questions or concerns at this time. Denied further needs. documented in this encounterATRIUM HEALTH [id number] Nurse Surgical operation note * Susan Baxter RN - 04/26/2022 11:20 AM EST Reviewed discharge instructions with patient and a responsible adult. Voiced understanding. No questions or concerns at this time. Denied further needs. 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] PROCEDURE PERFORMED Procedure(s) (LRB): TRANSURETHRAL RESECTION OF BLADDER TUMOR (N/A) PRIMARY CLOSURE N/A INTRAOPERATIVE FINDINGS No significant abnormalities SURGEON Surgeon(s) and Role: * Neno Domínguez MD - Primary ANESTHESIOLOGIST Anesthesiologist: Herberth Qiu DO MANAGER EMS: Kayy Cobian CRNA SURGICAL STAFF Diesel Truck Mechanic: Gabriel Walker RN Scrub Person: Elysia Buckner; Mary Kay Huang RN COMPLICATIONS None ESTIMATED BLOOD LOSS None SPECIMENS see ID Type Source Tests Collected by Time Destination 1 : Bladder tumor Permanent TISSUE SURG PATH REQUEST Neno Domínguez MD 04/26/2022 0959 Neno Domínguez MD April 26, 2022 10:[address] 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] PROCEDURE PERFORMED Procedure(s) (LRB): TRANSURETHRAL RESECTION OF BLADDER TUMOR (N/A) PRIMARY CLOSURE N/A INTRAOPERATIVE FINDINGS No significant abnormalities SURGEON Surgeon(s) and Role: * Neno Domínguez MD - Primary ANESTHESIOLOGIST Anesthesiologist: Herberth Qiu DO MANAGER EMS: Kayy Cobian CRNA SURGICAL STAFF Diesel Truck Mechanic: Gabriel Walker RN Scrub Person: Elysia Buckner; Mary Kay Huang RN COMPLICATIONS None ESTIMATED BLOOD LOSS None SPECIMENS see ID Type Source Tests Collected by Time Destination 1 : Bladder tumor Permanent TISSUE SURG PATH REQUEST Neno Domínguez MD 04/26/2022 0959 Neno Domínguez MD April 26, 2022 10:06 AM documented in this encounterATRIUM HEALTH [id number] Hospital Discharge instructions* Discharge Instructions* Susan Baxter [...] schedule a follow-up appointment. documented in this encounterATRIUM HEALTH [id number] History and physical note* Neno Domínguez MD [...] cataract extraction (Right, 2011); echocardiogram (outside) (); laboratory monitor (2013Oct 06); release carpal tunnel (Right, 2013Jan [...] 4, Warm. No clubbing. No cyanosis. Skin: [place], warm and dry. No rashes noted. Psychiatric: [...] (TURB) Neno Domínguez MD 04/26/2022 8:40 AM [facility] [id number] History and physical note* Neno Domínguez MD [...] cataract extraction (Right, 2011); echocardiogram (outside) (); laboratory monitor (2013Oct 06); release carpal tunnel (Right, 2013Jan [...] 4, Warm. No clubbing. No cyanosis. Skin: [place], warm and dry. No rashes noted. Psychiatric: [...] MD 04/26/2022 8:40 AM documented in this encounterATRIUM HEALTH [id number] History of Present illness Narrative* Neno Domínguez [...] was obtained. Does this procedure require a [place] Protocol? Yes. [place] Protocol is required. The patient was given [...] dose per standing order per physician. Lot [id number] Exp 12/16 , Prep Betadine , 11 ml lidocaine Glydojet inserted into urethra, 11 ml lidocaine Glydojet inserted into urethra, Lot:[id number] , EXP: 02/15, NDC . , 1000ml Bag Sterile Saline LOT [id number], EXP 05/18 , Fire Hazard: low___, Scope: Olympus Flexible CystoUrethroscope # __169__ assigned to this procedure Time Out:1126 , Start:1126 , Stop: 1127. documented in this [facility]10-31-[address] [address] Discharge Summary Signed PRELIMINARY DRAFT REPORT UNTIL ELECTRONICALLY SIGNED PATIENT: Mick Cottrell MR#: [id number] : 1940 AGE/SEX: 80 / M ADMITTED: 01/22/21 0725 OUTSIDE LOCN: LOCATION: [facility] 2N15-A ATTENDING: Matt Parisi MD [...] Diabetes mellitus type: type 2 Diabetes mellitus senior care insulin use: without senior care use Diabetes mellitus complication status: without complication [...] tablet Ipratropium [ATROVENT Inhaler] 2 puff IH T1UCHRU inhaler Budesonide/Formoterol 160/4.5 [Symbicort 160/4.5] 2 puff IH BIDR inh Cholecalciferol (D-3) [Vitamin D] 1,000 unit PO DAILY tablet Acetaminophen [Tylenol] 650 mg PO Q4H PRN PRN Reason: Pain Chloraseptic [place] [Chloraseptic] 5 spray PO TID Enoxaparin [Lovenox] [...] 30 Days #30 tablet HYDROcodone/Acet 5/325 mg [Belpre 5-325 mg] 1 tab PO Q6H PRN [...] [Albuterol HFA Inhaler for (more content not included)...[facility]10-30-[address] [address] Operative Note Signed PRELIMINARY DRAFT REPORT UNTIL ELECTRONICALLY SIGNED PATIENT: Mick Cottrell MR#: [id number] : 1940 AGE/SEX: 80 / M ADMITTED: 01/21/21 0040 OUTSIDE LOCN: LOCATION: [facility] 2N15-A ATTENDING: Matt Parisi MD [...] Surgeon: Ramesh Stringer Was there an assistant professor of life sciences present: No Estimated blood loss (ml): 0 [...] with the proper patient and procedure. A 21-[place]an rigid cystoscope was inserted into the bladder without difficulty. Systematic examination of bladder revealed no abnormalities. The ureteral orifice was cannulated using a 5- [place] ureteral Catheter and a retrograde pyelogram was performed using Isovue. A filling defect was identified which corresponded to the stone in the distal ureter. In addition the patient had a tortuous ureter.. At that point, a zip wire was placed through the 5-[place]an and confirmed in the renal pelvis with [...] Signed By: 01/21/21935 DD/ 2 Initialized By: [address]06-01-2011 Evaluation note* Diagnosis Onset Date Resolution Status H/O aortic valve replacement August, acute CAD (coronary artery disease) chronic Diabetes mellitus chronic Dyslipidemia chronic HTN (hypertension) chronic Paroxysmal atrial fibrillation chronic Thrombocytopenia [facility] Work Phone: 1(316) 115-131106-01-2011 Evaluation note* Diagnosis Onset Date Resolution Status [...] 2:25pm Diabetes mellitus chronic May 292024 2:25pm [facility] Work Phone: 1(458) 348-964606-01-2011 Evaluation note* Diagnosis Onset Date Resolution Status Admit Date H/O aortic valve replacement August, acute November 05, 2024 11:26am CAD (coronary artery disease) chroni c November 05, 2024 11:26am Dyslipidemia chronic November 05, 2024 11:26am HTN (hypertension) chronic November 05, 2024 11:26am Paroxysmal atrial fibrillation chron ic November 05, 2024 11:26am Thrombocytopenia chronic October 232024 11:26am [facility] Work Phone: Evaluation noteNo assessment information available [facility] Work Phone: Evaluation note* Diagnosis Closed fracture of superior ramus of right pubis, initial encounter- Primary Closed nondisplaced fracture of right acetabulum, unspecified portion of acetabulum, initial encounter Fall, subsequent encounter Fall Unspecified fall documented in this encounter [facility] note* Diagnosis Pain of right hip- Primary Closed fracture of multiple pubic rami, right, with routine healing, subsequent encounter documented in this encounter [facility] note* Diagnosis Pain of right hip documented in this encounter [facility] note* Diagnosis Acute pain of right knee documented in this encounter [facility] note* Diagnosis Personal history of malignant neoplasm of bladder- Primary documented in this encounter [facility] note* Diagnosis Pleuritic chest pain Painful respiration documented in this encounter [facility] note* Diagnosis Pulmonary nodule Solitary pulmonary nodule documented in this encounter [facility] note* Diagnosis Paroxysmal atrial fibrillation (HCC)- Primary Atrial fibrillation SDH (subdural hematoma) (HCC) Subdural hemorrhage documented in this encounter [facility] note* Diagnosis Subdural hematoma (HCC) Subdural hemorrhage documented in this encounter [facility] note* Diagnosis Anginal equivalent- Primary Equivalent angina Other and unspecified angina pectoris Primary hypertension Unspecified essential hypertension S/P AVR (aortic valve replacement) Heart valve replaced by other means documented in this encounter [facility] note* Diagnosis Anginal equivalent Equivalent angina Other and unspecified angina pectoris Primary hypertension Unspecified essential hypertension S/P AVR (aortic valve replacement) Heart valve replaced by other means documented in this encounter [facility] note* Diagnosis Personal history of malignant neoplasm of bladder- Primary documented in this encounter [facility] note* Diagnosis Bilateral carotid bruits- Primary Dyspnea on exertion Other dyspnea and respiratory abnormality Primary hypertension Unspecified essential hypertension Cerebrovascular accident (CVA), unspecified mechanism Mixed hyperlipidemia S/P AVR (aortic valve replacement) Heart valve replaced by other means Equivalent angina Other and unspecified angina pectoris Dyspnea on exertion Other dyspnea and respiratory abnormality documented in this encounter [facility] note* Diagnosis Dermatophytosis of nail- Primary On anticoagulant therapy Encounter for long-term (current) use of anticoagulants Type 2 diabetes mellitus with diabetic neuropathy, without long-term current use of insulin documented in this encounter [facility] note* Diagnosis Constipation, unspecified constipation type- Primary documented in this encounter [facility] note* Diagnosis 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 documented in this encounter [facility] note* Diagnosis Bilateral carotid bruits- Primary Dyspnea on exertion Other dyspnea and respiratory abnormality Primary hypertension Unspecified essential hypertension Cerebrovascular accident (CVA), unspecified mechanism Mixed hyperlipidemia S/P AVR (aortic valve replacement) Heart valve replaced by other means Equivalent angina Other and unspecified angina pectoris documented in this encounter [facility] note* Diagnosis Urinary urgency- Primary Urgency of urination 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 No obvious fractures. Tylenol for any pain. Follow-up with either his primary care physician or your emergency medicine medical director if not improving in the next 3 to 5 days.[facility] Work Phone: Hospital Discharge instructions* Attachments The following attachments cannot be sent through Care Everywhere. 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 [C67.3] Procedures [place] CYSTOURETHROSCOPY,FULGUR 2-5CM LESN CYSTOURETHROSCOPY W/ FULGURATION/RESECTION LESION BLADDER (TURB) Neno Domínguez MD [address] [facility] [address] [place] [address] [address]VIDBANNER [place] [id number] Referral ID Status Reason Start Date Expiration Date Visits Re quested Visits Authorized [id number] 04/26/2022 06/22/2022 1 1 [facility] Summary Purpose Family History No Family History Records Found Relationship Condition Age at Onset Recorded Date/T brittany Unknown Family Member Living Status Unknown May 17, 2020 3:35am Family Member Living Status Unknown May 17, 2020 8:30am Family Member Living Status Unknown May 04, 2021 3:32pm Family Cardiac Disorders Unknown [facility] 2020 8:30am Family Cardiac Disorders Unknown [facility] 2021 3:32pm Family Cancer Unknown May 17, 2020 3:35am Family Cancer Unknown May 04, 2021 3:32pm Family Endocrine Disorder Unknown [facility] 2020 8:30am Family Endocrine Disorder Unknown [facility] 2021 3:32pm Relationship Condition Age at Onset [...] March 17, 2 023 4:44pm Power of Sdet Yes March 17, 2023 4:44pm Name of Medical Power of Sdet SON March 17, 2023 4:44pm Latest Code [...] Date/ Time Name of Medical Power of Sdet SON March 17, 2023 4:44pm Living Will No May 09, 2 024 3:52pm Power of Sdet No May 09, 2023 3:52pm Advance Directive Response Recorded Date/ Time Name of Medical Power of Sdet SON March 17, 2023 5:44pm Living Will No May 09, 2 024 4:52pm Power of Sdet No May 09, 2023 4:52pm Latest Code [...] PM 08/03/2014 6:29 PM Hospital Course Note [facility] [address] [place] [address] Discharge Summary Signed PRELIMINARY DRAFT REPORT UNTIL ELECTRONICALLY SIGNED PATIENT: Mick Cottrell MR#: [id number] : 1940 AGE/SEX: 79 / M ADMITTED: 04/12/20 1837 OUTSIDE LOCN: LOCATION: [address] ATTENDING: Jim Marshall MD cc: Jenaro Morales; Cynthia Johnston; Jim Marshall; - NOTES TO OUTPATIENT PROVIDER Notes to Outpatient Provider: Patient was originally admitted at [facility] on 03/05/20 for Covid 19 pneumonia. Patient had a lengthy recovery, which included transfer to inpatient rehabilitation and then a readmission at [facility] for respiratory distress. Patient was eventually transferred to inpatient rehabilitation where he has progressed well through therapy. Patient remains on oxygen at 2 L nasal cannula. Patient continues to have mild dyspnea with exertion, but also has a history of COPD. He will be transferred to a senior care facility where he (more content not included)... Chief Complaint and Reason for Visit Chief Complaint Provider Based Isaías blanca CVA 2-3 I63.9 Chief Complaint CONFUSION Chief Complaint CONFUSION USP LABWORK USP LABWORK LAB WORK EST / S/P [facility] 03/17 & [facility] ([facility]) fall Reason for Visit H/O aortic valve rep lacement CAD (coronary artery disease) Diabetes mellitus Dyslipidemia HTN (hypertension) Paroxysmal atrial fibrillation Thrombocytopenia Chief Complaint CONFUSION USP LABWORK USP LABWORK LAB WORK USP LAB WORK EST / S/P [facility] 03/17 & [facility] ([facility]) fall Reason for Visit H/O aortic valve rep lacement CAD (coronary artery disease) Diabetes mellitus Dyslipidemia HTN (hypertension) Paroxysmal atrial fibrillation Thrombocytopenia Chief Complaint CONFUSION USP LABWORK USP LABWORK LAB WORK USP LAB WORK EST / S/P [facility] 03/17 & [facility] ([facility]) fall LABWORK Reason for Visit H/O aortic valve rep lacement CAD (coronary artery disease) Diabetes mellitus Dyslipidemia HTN (hypertension) Paroxysmal atrial fibrillation Thrombocytopenia Chief Complaint CONFUSION ADMISSION EXAM - MD USP LABWORK USP LABWORK LAB WORK USP LAB WORK EST / S/P [facility] 03/17 & [facility] ([facility]) fall LABWORK LABWORK Reason for Visit H/O aortic valve rep lacement CAD (coronary artery disease) Diabetes mellitus Dyslipidemia HTN (hypertension) Paroxysmal atrial fibrillation Thrombocytopenia Chief Complaint CONFUSION ADMISSION EXAM - MD USP LABWORK USP LABWORK LAB WORK USP LAB WORK EST / S/P [facility] 03/17 & [facility] ([facility]) USP LAB WORK fall LABWORK LABWORK LABWORK BRADYCARDIA Reason for Visit H/O aortic valve rep lacement CAD (coronary artery disease) Diabetes mellitus Dyslipidemia HTN (hypertension) Paroxysmal atrial fibrillation Thrombocytopenia Chief Complaint CONFUSION ADMISSION EXAM - MD USP LABWORK USP LABWORK LAB WORK USP LAB WORK EST / S/P [facility] 03/17 & [facility]) USP LAB WORK MONTHLY EXAM - MD NEW CONCERN fall LABWORK LABWORK LABWORK BRADYCARDIA Reason for Visit H/O aortic valve rep lacement CAD (coronary artery disease) Diabetes mellitus Dyslipidemia HTN (hypertension) Paroxysmal atrial fibrillation Thrombocytopenia Chief Complaint CONFUSION ADMISSION EXAM - MD USP LABWORK USP LABWORK LAB WORK USP LAB WORK EST / S/P [facility] 03/17 & [facility]) USP LAB WORK MONTHLY EXAM - MD NEW CONCERN fall LABWORK LABWORK LABWORK BRADYCARDIA MONTHLY EXAM PA USP LAB WORK Reason for Visit H/O aortic valve rep lacement CAD (coronary artery disease) Diabetes mellitus Dyslipidemia HTN (hypertension) Paroxysmal atrial fibrillation Thrombocytopenia Chief Complaint CONFUSION ADMISSION EXAM - MD USP LABWORK USP LABWORK LAB WORK USP LAB WORK EST / S/P [facility] 03/17 & [facility]) USP LAB WORK MONTHLY EXAM - MD NEW CONCERN fall LABWORK LABWORK LABWORK BRADYCARDIA MONTHLY EXAM PA USP LAB WORK LABWORK Reason for Visit H/O aortic valve rep lacement CAD (coronary artery disease) Diabetes mellitus Dyslipidemia HTN (hypertension) Paroxysmal atrial fibrillation Thrombocytopenia Chief Complaint Admit Date LABWORK February 28, 2024 5 :00am 4-6 WK FU March 06, 2024 10:57am MONTHLY EXAM March 10, 2024 9:42pm USP LAB WORK March 30, 2024 5:00am USP LAB WORK March 31, 2024 4:08am MONTHLY EXAM April 02, 2024 9: 43am USP LAB WORK May 01, 2024 4:00am MONTHLY EXAM May 05, 2024 1:34pm 1 Y FU May 07, 2024 1:09pm USP LAB WORK May 10 8:00pm LABWORK May [...] 2024 2:25 pm Chief Complaint Admit Date USP LAB WORK March 31, 2024 4:08am MONTHLY EXAM April 02, 2024 9: 43am USP LAB WORK May 01, 2024 4:00am MONTHLY EXAM May 05, 2024 1:34pm 1 Y FU May 07, 2024 1:09pm USP LAB WORK May 10 8:00pm LABWORK May [...] 2024 2:25 pm Chief Complaint Admit Date USP LAB WORK May 01, 2024 4:00am MONTHLY EXAM May 05, 2024 1:34pm 1 Y FU May 07, 2024 1:09pm USP LAB WORK May 10 8:00pm LABWORK May 14, 2024 5:00am MONTHLY EXAM May 25, 2024 2:05 pm PVD May 29, 2024 1:32 pm 1 M FU May 29, 2024 2:25 pm ACUTE EXAM June 01, 2024 4:0 3pm NEW CONCERN June 10, 2024 6:5 7pm MONTHLY EXAM June 23, 2024 3:43 pm LABWORK June 26, 2024 5:00 am Chief Complaint Admit Date USP LAB WORK May 01, 2024 4:00am MONTHLY EXAM May 05, 2024 1:34pm 1 Y FU May 07, 2024 1:09pm USP LAB WORK May 10 8:00pm LABWORK May [...] 9:32am CAD/ASHD August 07, 2024 9:56a m USP LAB WORK August 26, 2024 5:0 0pm [...] NEW CONCERN August 10, 2024 3:13p m USP LAB WORK August 26, 2024 5:0 0pm LABWORK August 28, 2024 5:00a m Chief Complaint Admit Date MONTHLY EXAM June 23, 2024 3:43 pm LABWORK June 26, 2024 5:00 am MONTHLY EXAM July 30, 2024 9:32am CAD/ASHD August 07, 2024 9:56a m NEW CONCERN August 10, 2024 3:13p m Monthly Exam August 25, 2024 8:11p m USP LAB WORK August 26, 2024 5:0 0pm LABWORK August 28, 2024 5:00a m Chief Complaint Admit Date MONTHLY EXAM July 30, 2024 9:32am CAD/ASHD August 07, 2024 9:56a m NEW CONCERN August 10, 2024 3:13p m Monthly Exam August 25, 2024 8:11p m USP LAB WORK August 26, 2024 5:0 0pm LABWORK August 28, 2024 5:00a m Monthly Exam October 01, 2024 11:4 2am Chief Complaint Admit Date MONTHLY EXAM July 30, 2024 9:32am CAD/ASHD August 07, 2024 9:56a m NEW CONCERN August 10, 2024 3:13p m Monthly Exam August 25, 2024 8:11p m USP LAB WORK August 26, 2024 5:0 0pm [...] Monthly Exam August 25, 2024 8:11p m USP LAB WORK August 26, 2024 5:0 0pm LABWORK August 28, 2024 5:00a m Monthly Exam October 01, 2024 11:4 2am MONTHLY EXAM October 27, 2024 2:3 3pm 6 M FU November 05, 2024 11 :26am Chief Complaint Admit Date Monthly Exam August 25, 2024 8:11p m USP LAB WORK August 26, 2024 5:0 0pm LABWORK August 28, 2024 5:00a m Monthly Exam October 01, 2024 11:4 2am MONTHLY EXAM October 27, 2024 2:3 3pm 6 M FU November 05, 2024 11 :26am USP LAB WORK November 26 5:00am MONTHLY EXAM December 03, 2024 10:48am Reason for Referral Specialty Diagnoses / Procedures Referred By Contac t Referred To Contact Social Work Diagnoses Fall, subsequent encounter Yvon Boyce MD [address] [place] [phone] Referral ID Status Reason Start Date Expiration Date V isits Requested Visits Authorized [id number] New Request 09/14/2022 10/09/2023 1 1 Specialty Diagnoses / Procedures Referred By Contac t Referred To Contact Procedures DVT/VTE RISK ASSESSMENT Zach Sales MD [address] [place] [phone] Referral ID Status Reason Start Date Expiration Date V isits Requested Visits Authorized [id number] New Request 09/12/2022 10/07/2023 1 1 Specialty Diagnoses / Procedures Referred By Contac t Referred To Contact Procedures ECG Komal Blackwell MD [address] [place] [id number] Referral ID Status Reason Start Date Expiration Date V isits Requested Visits Authorized [id number] New Request 09/12/2022 10/07/2023 1 1 Specialty Diagnoses / Procedures Referred By Contac t Referred To Contact Diagnoses Pulmonary nodule Procedures CT CHEST WITHOUT CONTRAST CHG DIAGNOSTIC COMPUTED TOMOGRAPHY THORAX W/O Grace Bolton MD [facility] [place] [address] [address] Referral ID Status Reason Start Date Expiration Date Visits Re quested Visits Authorized [id number] Closed 11/01/2022 11/26/2023 1 1 Specialty Diagnoses / Procedures Referred By Contac t Referred To Contact Diagnoses Anginal equivalent Equivalent angina Primary hypertension S/P AVR (aortic valve replacement) Procedures CASE REQUEST - CARDIAC CATH Juan Wilson MD [address] [place] [address] Referral ID Status Reason Start Date Expiration Date V isits Requested Visits Authorized [id number] New Request 06/26/2022 07/21/2023 1 1 Specialty Diagnoses / Procedures Referred By Contac t Referred To Contact Diagnoses Dyspnea on exertion S/P AVR (aortic valve replacement) Procedures ECHOCARDIOGRAM WV ECHO HEART XTHORACIC,COMPLETE W DOPPLER Juan Wilson MD [address] [place], [place] [phone] Referral ID Status Reason Start Date Expiration Date Visits Re quested Visits Authorized [id number] Closed 05/18/2022 06/12/2023 1 1 Specialty Diagnoses / Procedures Referred By Contac t Referred To Contact Diagnoses Dyspnea on exertion Bilateral carotid bruits Procedures VASC DUPLEX CAROTID BILATERAL Juan Wilson MD [address] [place] [address] Referral ID Status Reason Start Date Expiration Date Visits Re quested Visits Authorized [id number] Closed 05/18/2022 06/12/2023 1 1 Specialty Diagnoses / Procedures Referred By Contac t Referred To Contact Diagnoses Dyspnea on exertion Procedures NUC MYOCARD PERF STRESS MIBI PHARM WV CHG MYOCARDIAL SPECT MULTIPLE STUDIES CHG MYOCARDIAL SPECT MULTIPLE STUDIES-T WV CARDIAC STRESS TST,INTERP/REPT ONLY WV CV STRS TST XERS&/OR RX CONT ECG W/O I&R Juan Wilson MD [address] [place] [address] Referral ID Status Reason Start Date Expiration Date Visits Re quested Visits Authorized [id number] Closed 05/18/2022 06/12/2023 1 1 Referral ID Status Reason Start Date Expiration Date V isits Requested Visits Authorized [id number] New Request 05/18/2022 06/12/2023 1 1 Referral ID Status Reason Start Date Expiration Date V isits Requested Visits Authorized [id number] New Request 05/18/2022 06/12/2023 1 1 Referral ID Status Reason Start Date Expiration Date V isits Requested Visits Authorized [id number] New Request 05/18/2022 06/12/2023 1 1 Additional Source Comments (unrecognized sect ion and content) No Status Records FoundNo Status Records FoundNo Status Records FoundNo Status Records FoundNo Status Records FoundNo Status Records FoundNo Status Records FoundNo Status Records FoundNo Status Records Found INFORMATION SOURCE (unrecogn ized section and content) DATE CREATED AUTHOR 05/31/2020 [facility] DATE CREATED AUTHOR AUTHOR'S ORGANIZ ATION 06/21/2020 [facility] DATE CREATED AUTHOR AUTHOR'S ORGANIZ ATION 01/17/[address] [facility] DATE CREATED AUTHOR AUTHOR'S ORGANIZ ATION 04/28/2022 [facility] DATE CREATED AUTHOR AUTHOR'S ORGANIZ ATION 11/01/2022 [facility] DATE CREATED AUTHOR AUTHOR'S ORGANIZ ATION 03/07/2023 [facility] DATE CREATED AUTHOR AUTHOR'S ORGANIZ ATION 05/02/2023 [facility] DATE CREATED AUTHOR AUTHOR'S ORGANIZ ATION 08/21/2023 [facility] DATE CREATED AUTHOR AUTHOR'S ORGANIZ ATION 02/03/2025 [facility] Goals (unrecognized section and content) Goals may [...] dover Referred To Contact Zach Sales MD [address] [place] [phone] [address] Referral ID Status Reason Start Date Expiration Date Visits Re quested Visits Authorized [id number] 1 1 Reason Comments Injury Patient fell. Reason Comments Cystoscopy Cysto. NT-TONE REGULATOR Specialty Diagnoses / Procedures Referred By Lyudmila dover Referred To Contact Diagnoses Pulmonary nodule Procedures CT CHEST WITHOUT CONTRAST CHG DIAGNOSTIC COMPUTED TOMOGRAPHY THORAX W/O CNTRST Grace Gtz MD [address] [place] [address] [address] [address] Referral ID Status Reason Start Date Expiration Date Visits Re quested Visits Authorized [id number] Closed 11/01/2022 11/26/2023 1 1 Reason Comments Established Patient Specialty Diagnoses / Procedures Referred By Lyudmila t Referred To Contact CT IMAGING Diagnoses Subdural hematoma (HCC) Procedures CT BRAIN WO IVCON CT HEAD/BRAIN W/O CONTRAST MATERIAL Toño Crowe PA-C [address] [place] [address] [place] [address] Referral ID Status Reason Start Date Expiration Date V isits Requested Visits Authorized [id number] Closed Auto-Generate d Referral 04/02/2023 05/02/2023 1 1 Reason Comments Follow-up C/O CHEST PAIN IN TH E RIGHT SIDE Specialty Diagnoses / Procedures [facility] Referred To Contact Diagnoses Anginal equivalent Equivalent angina Primary hypertension S/P AVR (aortic valve replacement) Anginal equivalent [I20.8] Equivalent angina [I20.8] Primary hypertension [I10] S/P AVR (aortic valve replacement) [Z95.2] Procedures WV CATH PLMT L HRT & ARTS W/NJX & ANGIO IMG S&I SCHED CATHETERIZATION HEART CORONARY ANGIOGRAM WITH OR WITHOUT LV ANGIO Juan Wilson MD [address] [facility] [address] [place] [address] [address] [address] Referral ID Status Reason Start Date Expiration Date Visits Re quested Visits Authorized [id number] 07/13/2022 10/11/2022 1 1 Reason Comments Cystoscopy Cysto. Js rma Reason Comments Dizziness balance Shortness of Breath Lying down Reason Comments Nail Trim Specialty Diagnoses / Procedures [facility] Referred To Contact Podiatry Diagnoses Other specified diabetes mellitus with diabetic chronic kidney disease, unspecified CKD stage, unspecified whether senior care insulin use Grace Gtz MD [address] [place] [address] [address] Referral ID Status Reason Start Date Expiration Date V isits Requested Visits Authorized [id number] New Request 08/09/2022 09/03/2023 1 1 Reason Comments Constipation Patient reports that he had surgery on bladder cancer two days ago, hasnt been able to poop since Saturday, feels the urge but is unable to get anything out. Specialty Diagnoses / Procedures Referred By Lyudmila dover Referred To Contact Diagnoses Dyspnea on exertion S/P AVR (aortic valve replacement) Procedures ECHOCARDIOGRAM WV ECHO HEART XTHORACIC,COMPLETE W DOPPLER Juan Wilson MD [address] [place] [address] [place], [place] [phone] Referral ID Status Reason Start Date Expiration Date Visits Re quested Visits Authorized [id number] Closed 05/18/2022 06/12/2023 1 1 Specialty Diagnoses / Procedures Referred By Lyudmila dover Referred To Contact Diagnoses Dyspnea on exertion Bilateral carotid bruits Procedures VASC DUPLEX CAROTID BILATERAL Juan Wilson MD [address] [place] [address] [place], [place] [phone] Referral ID Status Reason Start Date Expiration Date Visits Re quested Visits Authorized [id number] Closed 05/18/2022 06/12/2023 1 1 Reason Comments Follow-up Pt complains of urin acacia urgency. Js rma Specialty Diagnoses / Procedures Referred By Lyudmila dover Referred To Contact Diagnoses Dyspnea on exertion Procedures NUC MYOCARD PERF STRESS MIBI PHARM WV CHG MYOCARDIAL SPECT MULTIPLE STUDIES CHG MYOCARDIAL SPECT MULTIPLE STUDIES-T WV CARDIAC STRESS TST,INTERP/REPT ONLY WV CV STRS TST XERS&/OR RX CONT ECG W/O I&R Juan Wilson MD [address] [place] [address] [place], [place] [address] Referral ID Status Reason Start Date Expiration Date Visits Re quested Visits Authorized [id number] Closed 05/18/2022 06/12/2023 1 1 Scheduled Active and Recently Administ ered Medications (unrecognized section and content) Medication Order 09/12/2022 09/13/2022 09/14/2022 aspirin chewable tablet 81 mg 81 mg, Oral, DAILY, First dose on Kenna 09/13/22 at 0900, Until Discontinued 1058 (Not Given - Provider: Meghan Downs, RN - Reason: Other - Comment: See [...] 2147 (Given - Provider: Ginette Tsai RN) 1057 (Not Given - Provider: Meghan Marie RN - Reason: Other - Comment: See note.)2023 (Given - Provider: Megan Summers RN) 800 (Given - Provider: Geovanna De RN) Enoxaparin [...] 2023 (Given - Provider: Megan Summers RN) FLUoxetine (PROZAC) capsule 20 mg 20 mg, Oral, DAILY, First dose on Sat09/13/22 at 0900, Until Discontinued 1058 (Not Given - Provider: Meghan Marie RN - Reason: Other - Comment: See note.) 800 (Given - Provider: Geovanna De RN) insulin [...] RN - Reason: Order Parameters not met) 1058 (Not Given - Provider: Meghan Marie RN - Reason: Other - Comment: see note.)1231 (Not Given - Provider: Meghan Marie RN - Reason: Patient/family refused)1739 (Given - Provider: Meghan Marie RN) 0803 (Given - Provider: Geovanna De, RN)1218 (Given - Provider: Geovanna De RN)1600 (Canceled Entry - Provider: System Discharge - Comment: Automatically canceled at discontinue of medication order) Losartan (COZAAR) tablet 25 mg 25 mg, Oral, DAILY, First dose on Sat09/13/22 at 0900, Until Discontinued 1057 (Not Given - Provider: Meghan Marie RN - Reason: Other - Comment: See note.) 08 (Given - Provider: Geovanna De RN) Montelukast (SINGULAIR) tablet 10 mg 10 [...] 180 mmHg 0351 (Given - Provider: Ginette Tsai, FIDELINA) 0242 (Given - Provider: Megan Summers RN) [...] Provider: Leandra Gaming RN)1345 (Stopped - Provider: Leandra Gaming RN) PRN Medication Order 07/11/2022 07/12/2022 [...] at 1131, Until Sat07/13/22 at 1140, Intra-op/Intra-Proc 113 (Given - Provid er: Shyam Garcia RN) [...] at 1122, Until Sat07/13/22 at 1140, Intra-op/Intra-Proc 112 (Given - Provid er: Shyam Garcia RN) [...] 1045 1037 ($$New Bag$$ - Provider: Belem Gomez, RN)1320 (Stopped - Provider: Belem Gomez RN) [...] 500 mg, Intravenous, Administer over 60 Minutes, STABLEHAND TO PROCEDURE, 1 dose, Starting on Kenna [...] Oral, EVERY 6 HOURS NEEDED, Starting on Knena 04/26/22 at 1059, Until Sat04/27/22 at 0315, [...] May 25, 2024 End: May 25, 2024 Diandra Abdi AUTO BRAKE MECHANIC, AUTO BRAKE MECHANIC-C Attending Provider Active Start: May 25, 2024 [...] 2024 End: June 01, 2024 Diandra Abdi AUTO BRAKE MECHANIC, AUTO BRAKE MECHANIC-C Attending Provider Active Start: June 01, 2024 End: June 01, 2024 Team Status: Inactive Member Role Status Dates Dr. Danielle Hernandez MD Primary Care Provider Active Start: June 10, 2024 End: June 10, 2024 Diandra Abdi AUTO BRAKE MECHANIC, AUTO BRAKE MECHANIC-C Attending Provider Active Start: June 10, 2024 [...] March 30, 2024 End: March 30, 2024 PURA VelazquezC Attending Provider Active Start: March 30, 2024 End: March 30, 2024 Sand Caster Relationship Specialty Start Date End Date Grace Gtz MD [address] [id number] PCP - General Family Medicine 06/16/13 Marcial Bettencourt DO [address] [id number] PCP - Referring 1 Cardiovascular Disease 06/17/14 Anshul Flores MD, PhD [address] [address] PCP - Referring 2 Urology 06/17/14 Anshul Flores MD, PhD [address] [address] Consulting Physician Urology 07/05/10 Benigno Cardoso MD [address] [place] [id number] Urologist Urology 06/08/14 Sand Caster Relationship Specialty Start Date End Date Grace Gtz MD [address] [id number] PCP - General Family Medicine 06/16/13 Marcial Bettencourt DO [address] [id number] PCP - Referring 1 Cardiovascular Disease 06/17/14 Anshul Flores MD, PhD [address] [place] [address] PCP - Referring 2 Urology 06/17/14 Anshul Flores MD, PhD [address] [place] [address] Consulting Physician Urology 07/05/10 Benigno Cardoso MD [address] 1[address] [place] [address] Urologist Urology 06/08/14 Sand Caster Relationship Specialty Start Date End Date Grace Gtz MD [address] [place] [address] PCP - General Family Medicine 06/16/13 Marcial Bettencourt DO [address] [id number] PCP - Referring 1 Cardiovascular Disease 06/17/14 Anshul Flores MD, PhD [address] [id number] PCP - Referring 2 Urology 06/17/14 Anshul Flores MD, PhD [address] [id number] Consulting Physician Urology 07/05/10 Benigno Cardoso MD [address] Floor [place] [id number] Urologist Urology 06/08/14 Sand Caster Relationship Specialty Start Date End Date Grace Gtz MD [address] [id number] PCP - General Family Medicine 06/16/13 Marcial Bettencourt DO [address] [id number] PCP - Referring 1 Cardiovascular Disease 06/17/14 Anshul Flores MD, PhD [address] [id number] PCP - Referring 2 Urology 06/17/14 Anshul Flores MD, PhD [address] [id number] Consulting Physician Urology 07/05/10 Benigno Cardoso MD [address]st [place] [address] Urologist Urology 06/08/14 Sand Caster Relationship Specialty Start Date End Date Grace Gtz MD [address] [address] PCP - General Family Medicine 06/16/13 Marcial Bettencourt DO [address] [address] PCP - Referring 1 Cardiovascular Disease 06/17/14 Anshul Flores MD, PhD [address] [address] PCP - Referring 2 Urology 06/17/14 Anshul Flores MD, PhD [address] [address] Consulting Physician Urology 07/05/10 Benigno Cardoso MD [address] [place] [address] Urologist Urology 06/08/14 Team Status: Active Member [...] Brendon Hope DO Attending Provider, Emergency P clarence Active YUNIOR AUGUSTIN Primary Care Provider Active [...] Hernandez MD Primary Care Provider Active Diandra PLEITEZ NP-C Attending Provider Active Team Status: Inactive Member Role Status Dates Dr. Danielle Hernandez MD Primary Care Provider Active Diandra PLEITEZ, AUTO BRAKE MECHANIC-C Attending Provider Active Team Status: Inactive Member Role Status Dates Dr. Danielle Hernandez MD Primary Care Provider, Atten ding Provider Active Team Status: Inactive Member Role Status Dates Dr. Danielle Hernandez MD Primary Care Provider Active Danielle PLEITEZ MD Attending Provider Active Team Status: Active Member Role Status Dates Génesis Bergeron AUTO BRAKE MECHANIC, AUTO BRAKE MECHANIC-C Attending Provider, Referring P rovider Active Dr. Danielle Hernandez MD Primary Care Provider Active Team Status: Inactive Member Role Status Dates Dr. Danielle Hernandez MD Primary Care Provider Active Diandra Abdi AUTO BRAKE MECHANIC, AUTO BRAKE MECHANIC-C Attending Provider Active Team Status: Inactive Member Role Status Dates Génesis Bergeron AUTO BRAKE MECHANIC, AUTO BRAKE MECHANIC-C Attending Provider, Referring P rovider Active Dr. Danielle Hernandez MD Primary Care Provider Active Team Status: Inactive Member Role Status Dates Dr. Danielle Hernandez MD Primary Care Provider Active Deion RODAS, PA Attending Provider Active Team Status: Inactive Member Role Status Dates Dr. Danielle Hernandez MD Primary Care Provider Active Danielle PLEITEZ MD Attending Provider, Referring Provider Active Sand Caster Relationship Specialty Start Date End Date Grace Gtz MD PCP - General Family Medicine 06/16/13 Marcial Bettencourt DO PCP - Referring 1 Cardiovascular Disease 06/17/14 Anshul Flores MD, PhD [address] [address] PCP - Referring 2 Urology 06/17/14 Anshul Flores MD, PhD [address] [address] Consulting Physician Urology 07/05/10 Benigno Cardoso MD [address] [place] [address] Urologist Urology 06/08/14 Sand Caster Relationship Specialty Start Date End Date Grace Gtz MD PCP - General Family Medicine 06/16/13 Marcial Bettencourt DO PCP - Referring 1 Cardiovascular Disease 06/17/14 Anshul Flores MD, PhD [address] [id number] PCP - Referring 2 Urology 06/17/14 Anshul Flores MD, PhD [address] [address] Consulting Physician Urology 07/05/10 Benigno Cardoso MD [address] [place] [address] Urologist Urology 06/08/14 Sand Caster Relationship Specialty Start Date End Date Grace Gtz MD PCP - General Family Medicine 06/16/13 Marcial Bettencourt DO PCP - Referring 1 Cardiovascular Disease 06/17/14 Anshul Flores MD, PhD [address] [address] PCP - Referring 2 Urology 06/17/14 Anshul Flores MD, PhD [address] [address] Consulting Physician Urology 07/05/10 Benigno Cardoso MD [address] [place] [address] Urologist Urology 06/08/14 Sand Caster Relationship Specialty Start Date End Date Grace Gtz MD PCP - General Family Medicine 06/16/13 Marcial Bettencourt DO PCP - Referring 1 Cardiovascular Disease 06/17/14 Anshul Flores MD, PhD [address] [address] PCP - Referring 2 Urology 06/17/14 Anshul Flores MD, PhD [address] [address] Consulting Physician Urology 07/05/10 Benigno Cardoso MD [address] [place] [address] Urologist Urology 06/08/14 Sand Caster Relationship Specialty Start Date End Date Grace Gtz MD PCP - General Family Medicine 06/16/13 Marcial Bettencourt DO PCP - Referring 1 Cardiovascular Disease 06/17/14 Anshul Flores MD, PhD [address] [address] PCP - Referring 2 Urology 06/17/14 Anshul Flores MD, PhD [address] [address] Consulting Physician Urology 07/05/10 Benigno Cardoso MD [address] [place] [address] Urologist Urology 06/08/14 Sand Caster Relationship Specialty Start Date End Date Grace Gtz MD PCP - General Family Medicine 06/16/13 Marcial Bettencourt DO PCP - Referring 1 Cardiovascular Disease 06/17/14 Anshul Flores MD, PhD [address] [address] PCP - Referring 2 Urology 06/17/14 Anshul Flores MD, PhD [address] [address] Consulting Physician Urology 07/05/10 Benigno Cardoso MD [address] [place] [address] Urologist Urology 06/08/14 Sand Caster Relationship Specialty Start Date End Date Grace Gtz MD PCP - General Family Medicine 06/16/13 Marcial Bettencourt DO PCP - Referring 1 Cardiovascular Disease 06/17/14 Anshul Flores MD, PhD [address] [address] PCP - Referring 2 Urology 06/17/14 Anshul Flores MD, PhD [address] [address] Consulting Physician Urology 07/05/10 Benigno Cardoso MD [address] [place] [address] Urologist Urology 06/08/14 Sand Caster Relationship Specialty Start Date End Date Grace Gtz MD PCP - General Family Medicine 06/16/13 Marcial Bettencourt DO PCP - Referring 1 Cardiovascular Disease 06/17/14 Anshul Flores MD, PhD [address] [address] PCP - Referring 2 Urology 06/17/14 Anshul Flores MD, PhD [address] [address] Consulting Physician Urology 07/05/10 Benigno Cardoso MD [address]st [place] [address] Urologist Urology 06/08/14 Sand Caster Relationship Specialty Start Date End Date Grace Gtz MD PCP - General Family Medicine 06/16/13 Marcial Bettencourt DO PCP - Referring 1 Cardiovascular Disease 06/17/14 Anshul Flores MD, PhD [address] [address] PCP - Referring 2 Urology 06/17/14 Anshul Flores MD, PhD [address] [place] [address] Consulting Physician Urology 07/05/10 Benigno Cardoso MD [address] [place] [address] Urologist Urology 06/08/14 Sand Caster Relationship Specialty Start Date End Date Grace Gtz MD PCP - General Family Medicine 06/16/13 Marcial Bettencourt DO PCP - Referring 1 Cardiovascular Disease 06/17/14 Anshul Flores MD, PhD [address] [place] [address] PCP - Referring 2 Urology 06/17/14 Anshul Flores MD, PhD [address] [id number] Consulting Physician Urology 07/05/10 Benigno Cardoso MD [address] [place] [address] Urologist Urology 06/08/14 Sand Caster Relationship Specialty Start Date End Date Grace Gtz MD PCP - General Family Medicine 06/16/13 Marcial Bettencourt DO PCP - Referring 1 Cardiovascular Disease 06/17/14 Anshul Flores MD, PhD [address] [address] PCP - Referring 2 Urology 06/17/14 Anshul Flores MD, PhD [address] [address] Consulting Physician Urology 07/05/10 Benigno Cardoso MD [address] [place] [address] Urologist Urology 06/08/14 Team Status: Inactive Member [...] 2024 End: August 10, 2024 Diandra Abdi AUTO BRAKE MECHANIC, AUTO BRAKE MECHANIC-C Attending Provider Active Start: August 10, 2024 [...] 2024 End: August 10, 2024 Diandra Abdi AUTO BRAKE MECHANIC, AUTO BRAKE MECHANIC-C Attending Provider Active Start: August 10, 2024 [...] 2024 End: August 10, 2024 Diandra Abdi AUTO BRAKE MECHANIC, AUTO BRAKE MECHANIC-C Attending Provider Active Start: August 10, 2024 [...] October 01, 2024 End: October 01, 2024 ADRIANNA Colvin Attending Provider Active St art: October 01, 2024 End: October 01, 2024 Team Status: Inactive Member Role/Relationship Status Dates Dr. Danielle Hernandez MD Primary Care Provider Active Start: November 05, 2024 End: November 05, 2024 Dr. Danielle Hernandez MD Referring Provider Active Start: November 05, 2024 End: November 05, 2024 Génesis Bergeron AUTO BRAKE MECHANIC, AUTO BRAKE MECHANIC-C Attending Provider Active Start: November 05, 2024 [...] 2024 End: November 05, 2024 Génesis Bergeron AUTO BRAKE MECHANIC, AUTO BRAKE MECHANIC-C Attending Provider Active Start: November 05, 2024 End: November 05, 2024 Team Status: Active Member Role/Relationship Status Dates Dr. Danielle Hernandez MD Primary care physician Activ e Team Status: Inactive Member Role/Relationship Status Dates Dr. Danielle Hernandez MD Primary care physician Activ e Start: August 25, 2024 End: August 25, 2024 Dr. Danielle Hernandez MD Attending physician Active Start: August 25, 2024 End: August 25, 2024 Team Status: Active Member Role/Relationship Status Dates Dr. Danielle Hernandez MD Primary care physician Activ e Start: August 26, 2024 Danielle PLEITEZ MD Attending physician Active Start: August 26, 2024 Team Status: Active Member Role/Relationship Status Dates Dr. Danielle Hernandez MD Primary care physician Activ e Start: August 28, 2024 Danielle PLEITEZ MD Attending physician Active Start: August 28, 2024 Team Status: Inactive Member Role/Relationship Status Dates Dr. Danielle Hernandez MD Primary care physician Activ e Start: October 01, 2024 End: October 01, 2024 ADRIANNA Colvin Attending physician Active S tart: October 01, 2024 End: October 01, 2024 Team Status: Inactive Member Role/Relationship Status Dates Dr. Danielle Hernandez MD Primary care physician Activ e Start: October 27, 2024 End: October 27, 2024 Dr. Danielle Hernandez MD Attending physician Active Start: October 27, 2024 End: October 27, 2024 Team Status: Inactive Member Role/Relationship Status Dates Dr. Danielle Hernandez MD Primary care physician Activ e Start: November 05, 2024 End: November 05, 2024 Dr. Danielle Hernandez MD Referring Provider Active Start: November 05, 2024 End: November 05, 2024 Génesis Bergeron AUTO BRAKE MECHANIC, AUTO BRAKE MECHANIC-C Attending physician Active Start: November 05, 2024 End: November 05, 2024 Team Status: Active Member Role/Relationship Status Dates Dr. Danielle Hernandez MD Primary care physician Activ e Start: November 26, 2024 Danielle PLEITEZ MD Attending physician Active Start: November 26, 2024 Team Status: Inactive Member Role/Relationship Status Dates Dr. Danielle Hernandez MD Primary care physician Activ e Start: December 03, 2024 End: December 03, 2024 ADRIANNA Colvin Attending physician Active S tart: December 03, 2024 End: December 03, 2024 Source Comments (unrecognize d section and content) In the event this informatio n is protected by the Federal Confidentiality of Alcohol and Drug Abuse Patient Records regulations: The Federal rules restrict any use of the information to criminally investigate or prosecute any alcohol or drug abuse patient.[facility] the event this information is protected by the Federal Confidentiality of Alcohol and Drug Abuse Patient Records regulations: The Federal rules restrict any use of the information to criminally investigate or prosecute any alcohol or drug abuse patient.[facility] the event this information is protected by the Federal Confidentiality of Alcohol and Drug Abuse Patient Records regulations: The Federal rules restrict any use of the information to criminally investigate or prosecute any alcohol or drug abuse patient.[facility] FOR RECORDS PERTAINING TO PATIENTS WHO ARE [...] BE BASED ON THE PRIMARY CLINICAL RECORDS. [facility] [employer] [facility] provides no warranty or guarantee of the accuracy or completeness of information in this document.
[2025-02-25 08:26] LABS: Differential Indicated SCAN CRITERIA MET; Hematocrit 45.7 % (40-54); Hemoglobin 15.0 g/dL (13.0-16.5); Immature Granulocytes Count 0.030 X10^3/uL (0.0-0.0); Mean Corp Hgb Conc 32.8 g/dL (32-36); Mean Corpuscular Volume 102.9 fL (80-94); Mean Platelet Vol. 12.1 fl (6.2-12.0); NRBC Flagged by Analyzer 0 % (0-5); POSITIVE COUNT YES; Platelet Count 83 K/mm3 (150-450); RBC Distribution Width CV 14.7 % (11.6-14.6); RBC Distribution Width SD 56.2 fl (35.1-43.9); Red Blood Count 4.44 M/mm3 (4.6-6.2); White Blood Count 8.4 K/mm3 (4.4-11.0)
[2025-02-25 08:52] LABS: AST(SGOT) 19 U/L (<=37); Alanine Aminotransfer ALT/SGPT 14 U/L (<=46); Albumin, Serum 3.7 g/dL (3.4-4.8); Alkaline Phosphatase 161 U/L (40-129); Anion Gap 15 (5-15); BUN 32 mg/dL (4-19); BUN/Creat Ratio 26.7 RATIO (10-20); Bilirubin, Direct 0.15 mg/dL (0.00-0.30); Calcium,Total 9.3 mg/dL (7.6-11.0); Carbon Dioxide 20.0 mmol/L (21.0-32.0); Chloride 102 mmol/L (98-108); Globulin 1.8 g/dL (2.2-4.2); Glucose 134 mg/dL (70-99); Potassium 4.6 mmol/L (3.3-5.1)
[2025-02-25 08:57] LABS: Differential Comment SCANNED
== END ==
LOC: OLS.WHLTSB 05:00
PROVIDERS: PCP Internal Medicine; Visit Provider Internal Medicine
DX: I10 Essential (primary) hypertension (principal); E11.9 Type 2 diabetes mellitus without complications
CPT/HCPCS: 36415; 80048; 80076; 83036; 85025